=== PATIENT | male | born 1935 | race Caucasian/White ===

== ENCOUNTER 2016-09-01 19:47 | Inpatient (IN) | payer MEDICARE, OTHER ==
[~2016-09-01] VITALS: Ht 180.3 cm; Wt 79.1 kg
[~2016-09-01 19:47] MED LIST: AMLODIPINE BESYL5 MG PO; ASPIR 8181 MG PO; ATROVENT HFA12.9 GM INH; BREO ELLIPTA I1 EACH INH; CALCIUM 600 +1 EAC3 PO; COMPANION TABL0.4 MG PO; FEOSOL325 MG PO; FLUOCINONIDE60 ML TOP; FLUZONE HI180 MCG/07 IM; HYDROCODON-ACE1 EAC8 PO; I-CAPS WITH LU1 EACH PO; IRON18 MG PO; KETOCONAZOLE120 ML TOP; LEVAQUIN500 MG PO; LUPRON DEPOT22.5 MG IM; MEGESTROL ACETA20 MG PO; MIRALAX17 GM PO; PANTOPRAZOLE SO40 MG PO; PRILOSEC20 MG PO; QVAR7.3 G1 INH; SENNA-TIME S T1 EACH PO; SUCRALFATE1 GM/10 ML PO; TAMSULOSIN HCL0.4 MG PO; VENLAFAXINE H37.5 M1 PO; VENTOLIN HFA18 GM INH; VITAMIN B12-FO1 EACH PO; VITAMIN C250 MG PO; VITAMIN C60 MG PO; VITAMIN D3 COM1 EACH PO; VITAMIN D400 UNI1 PO; WAL-ZYR D TABL1 EACH PO; ZOLPIDEM TARTRAT5 MG PO
[2016-09-01] MEDS ORDERED: SUCRALFATE1 GM PO (20:08)
[2016-09-01] MEDS ORDERED: ASPIR-LOW81 MG PO (20:09)
[2016-09-01] MEDS ORDERED: IRON236 MG PO (20:10)
[2016-09-01] MEDS ORDERED: PRILOSEC OTC20 MG PO (20:11)
[2016-09-02] MEDS ORDERED: ATROVENT HFA12.9 GM INH (14:08)
[2016-09-02] MEDS ORDERED: FERROUS SULFAT325 MG PO (14:11)
[2016-09-02] MEDS ORDERED: FLOMAX0.4 MG PO (15:24)
[2016-09-02] MEDS ORDERED: MIRALAX17 GM PO (15:26)
--- NOTE | 2016-09-05 08:50 | CONS ---
[facility] [address], [place] [address] Signed DATE OF SERVICE: 09/02/2016 REFERRING PHYSICIAN: Dr. Casey Sinclair. CHIEF COMPLAINT: Rectal bleeding. HISTORY OFPRESENT ILLNESS: Olga is a 80-year-old significantly disabled gentleman, who I have known over the years. He has been in the hospital several times for GI bleeds. 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 He also had amoderate-sized type 1 hiatal hernia and a little gastritis at that time. His colonoscopy had revealed a very long redundant colon andwe never made it past his hepatic flexure. He does have moderate left-sideddiverticulosis. The barium enema was ordered and he had diverticula, but no other issues. In the meantime, he had come back for a GI bleed and Dr. Prabhakar apparently placed a couple of clips in the stomach. Olga apparently remains on aspirin and was at home and getting dizzy for the last 2 to 3 days and noticed black stool. He, therefore, had called the ambulance to come bring him to the hospital. In the meantime, his hemoglobin has dropped from 10.1 over to 8.1 over more than 8 hours. However, he has been otherwise hemodynamically stable and his BUN and creatinine are already starting to correct itself. Given his current finding, I had been asked to see him as a general surgeon on-call. ALLERGIES: 1. Paper tape. 2. Penicillin. MEDICATIONS: Sucralfate, aspirin, Ocuvite softgel, calcium, fluocinonide solution, ketoconazole shampoo, amlodipine, Derby 10 mg tablets, Protonix, tamsulosin, venlafaxine, zolpidem, and Breo (fluticasone/vilanterol). PAST MEDICAL HISTORY: Insomnia; supraventricular arrhythmia, status post ablation in [place], [place]; myocardial infarction; coronary artery disease; hypertension; Chronic obstructive pulmonary disease; recurrent GI bleeds; gastric ulcer while Taking NSAIDs; nocturnal hypoxia; mood disorder; prostate cancer. PAST SURGICAL HISTORY: Includes his cardiac ablation in [place], [place]; And also an upper GI and endoscopy in January [address] Buchanan and again his appendectomy, his colonoscopy in January [address] Buchanan; irradiation in 2007 for prostate cancer; and upper and lower endoscopy with Dr. Prabhakar sometime after 2014. Electronically Signed By: TRISTEN BUCHANAN MD 09/05/16 0850 PATIENT NAME: OLGA LEMUS CONSULTATION DATE OF : 39 PHYSICIAN: TRISTEN BUCHANAN MD REPORT #: [id number] REPORT IS CONFIDENTIAL AND NOT TO BE RELEASED WITHOUT AUTHORIZATION [facility] [address], [place] [address] Signed SOCIAL HISTORY: He drinks from 3 to 5 cups of coffee a day. He quit smoking his pipe in 2010. He quit cigarettes at least 20 years ago. He does not chew tobacco. He does not drink alcohol. He does not use drugs. 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 He is now and has 2 children. He lives here in [place], [place]. Dr. Hebert Brar s his primary care provider. He apparently is a DNR. FAMILY HISTORY: Cerebral artery aneurysm in the family. REVIEW OF SYSTEMS: He had 10 systems reviewed and nothing really major since I have seen Olga the last time other than his GI bleeds. PHYSICAL EXAMINATION: VITAL SIGNS: Blood pressure is 144/60, heart rate is 68, respirations 20, temperature is 97.8, he is 94% to 98% on cain al cannula. He is 5 feet 11 inches, 79 kg. GENERAL: Olga is a 80-year-old gentleman, who appears his stated age. He is thin And has pursed lips as he breaths consistent with along history of smoking. RESPIRATORY: He has mildly distant breath sounds. HEART: Regular rate and rhythm. ABDOMEN: Benign. RECTAL: Not performed currently. LABORATORY DATA: His white count is 5.5, neutrophils 72. Hemoglobin was 10.4, went down to 7.5, it is now 8.1. His BUN was 25, it is now 19. His creatinine was 1.34, it is now 0.95. LFTs are negative. Albumin is 3.3, INR is 1.1, PTT is 24. RADIOGRAPHIC STUDIES: None. ASSESSMENT AND PLAN: Olga is a 80-year-old gentleman, who presents as above. He may have a recurrent ulcer in his stomach. We have never found any bleeding in his colon, although he does have diverticulosis and he had radiation to the prostate. I think at this point, we will let him go through a bowel prep and at least clear up the colon and the foul-smelling stool. I think tomorrow we will schedule him for his upper endoscopy and look at his stomach. If that is negative, we can consider the lower endoscopy, although Olga told me today he was not particularly interested in lower endoscopy. I reviewed all this with Olga. He has expressed understanding and agrees with above plan. Tristen Buchanan MD Electronically Signed By: TRISTEN BUCHANAN MD 09/05/16 0850 PATIENT NAME: OLGA LEMUS CONSULTATION DATE OF : 39 PHYSICIAN: TRISTEN BUCHANAN MD REPORT #: [id number] REPORT IS CONFIDENTIAL AND NOT TO BE RELEASED WITHOUT AUTHORIZATION [address] [address] Signed Delmy /[id number] cc: Dr. Hebert Brar Electronically Signed By: TRISTEN BUCHANAN MD 09/05/16 0850 PATIENT NAME: OLGA LEMUS CONSULTATION DATE OF : 39 PHYSICIAN: TRISTEN BUCHANAN MD REPORT #: [id number] REPORT IS CONFIDENTIAL AND NOT TO BE RELEASED WITHOUT AUTHORIZATION
--- NOTE | 2016-09-07 07:55 | OR ---
[facility] [address] [place], [place] [address] Signed PREOPERATIVE DIAGNOSES: Rectal bleeding and melena. History of peptic ulcer disease. POSTOPERATIVE DIAGNOSIS: Unremarkable stomach and esophagus. PROCEDURE: Esophagogastroduodenoscopy without biopsy. ESTIMATED BLOOD LOSS: None. FINDINGS: No source of bleeding in his esophagus, stomach, pyloric channel, or proximal duodenum. No blood found what so ever. INDICATIONS: Diego is a 80-year-old gentleman, who I have known for many years. He has been in the hospital now 3 or 4 times with melena, rect al bleeding. Both myself and Dr. Prabhakar had the opportunity to perform his endoscopies. We know that he has probably a small epiphrenic diverticulum, although I did not see that specifically today. There is mention of a hiatal hernia. He probably does have a small hiatal hernia today and he also had a little gastritis in the past. The CLOtest that I had performed was negative. Dr. Prabhakar found something in the stomach on a separate occasion and he had clipped that area. We also know that he has moderate left - sided diverticulosis. He does have a long redundant colon. We never made it past the hepatic flexure. He had a followup barium enema and again the diverticula, but no other issues. Diego happens to live alone and he noticed melena and some blood associated w ith this, so he had called 911 and had the ambulance bring him into the hospital. He has been with us and dropped his hemoglobin initially from 10.1, down to 8.1, but he has been hemodynamically stable otherwise. His BUN and creatinine were initially up a t 25 and 1.34, but with hydration, it is down to 19 and 0.95. Diego has been taking aspirin, but also taking medicine for his stomach. He said overall he thinks he is better than it was previously. I have been asked to see him his general surgeon on-call the n for consideration of repeat endoscopy. I met with Diego yesterday and we had a long discussion, he has been stable all day and he is not particularly interested in colonoscopy, but he is certainly willing to let me check his stomach. We went ahead and put h im through a full bowel prep yesterday nevertheless. Diego does understand upper endoscopy well. He understands that given his advanced medical issues, we normally would have an anesthesia provider help us, but there was none available this morning. We felt we needed to proceed with his upper endoscopy at fairly low risk and we thought he would be just fine. Diego had expressed understanding and wished to proceed. DESCRIPTION OF PROCEDURE: Electronically Signed By: TRISTEN ARELLANO MD 09/07/16 0755 PATIENT NAME: DIEGO LEMUS OPERATIVE REPORT DATE OF : 39 PHYSICIAN: TRISTEN ARELLANO MD REPORT #: [id number] REPORT IS CONFIDENTIAL AND NOT TO BE RELEASED WITHOUT AUTHORIZATION [facility] [address] [place] [id number] Signed Diego was taken into endoscopy suite and placed in a supine semirecumbent p osition. He was given IV sedation with 3 mg of Versed and 100 mcg of fentanyl. The posterior oropharynx had been anesthetized with Hurricaine spray. A bite block has been utilized for the case. The adult gastroscope was introduced and advanced quite readi l y down the esophagus, stomach, and out of the duodenum. There was no evidence of any fresh or old blood anywhere. We found that the duodenum and pyloric channel were unremarkable. His entire stomach was unremarkable. No evidence of any new or old ulcerati o ns. Upon retroflexion of the scope, he may have just a small hiatal hernia, but it was quite small. The scope was withdrawn up to the GE junction, which was compliant without stricture. The Z-line remains intact. There was no distal esophagitis. The middl e and upper esophagus were unremarkable. After this, the gas was suctioned out and the gastroscope removed. Diego tolerated the procedure quite well. RECOMMENDATIONS: Diego will be returned to his room and we will put him back on a full liquid diet and repeat hi s labs in the morning. If he continues to have trouble, he may need colonoscopy, but he certainly has diverticulosis and now that he has had multiple GI bleeds, maybe he should stop his aspirin. Tristen Arellano MD AB/Modl /[id number] cc: Tristen Arellano MD Electronically Signed By: TRISTEN ARELLANO MD 09/07/16 0755 PATIENT NAME: DIEGO LEMUS OPERATIVE REPORT DATE OF : 39 PHYSICIAN: TRISTEN ARELLANO MD REPORT #: [id number] REPORT IS CONFIDENTIAL AND NOT TO BE RELEASED WITHOUT AUTHORIZATION
--- NOTE | 2016-09-07 16:47 | OR ---
[facility] [address], [place] [address] Signed PREOPERATIVE DIAGNOSES: Melena and rectal bleeding. History of diverticulosis. History of long redundant colon. POSTOPERATIVE DIAGNOSES: Moderate sigmoid diverticulosis. Long redundant colon. 7 mm vascular polyp at hepatic flexure. A 4 mm polyp distal transverse colon. 7 mm polyp at 10 cm (rectum). Moderate internal hemorrhoids. PROCEDURES: Colonoscopy with hot biopsy and a clip at hepatic flexure as well as snare of a rectal polyp. ESTIMATED BLOOD LOSS: Minimal. INDICATIONS: Olga is a 80-year-old gentleman who is well known previously. He has been in the hospital several times with melena and rectal bleeding. He has had upper and lower endoscopies. At 1 point, there was concer n about peptic ulcer disease and he had a couple of clips placed on the antrum of the stomach. He also has a very long redundant colon and I was not able to reach the right colon or cecum on my last colonoscopy with Olga. I did have him undergo a barium en e ma and it confirmed is diverticulosis, but no other significant lesions. In the meantime, he has been taking his aspirin 3 days a week. He lives alone and he started to have melena and rectal bleeding and was feeling dizzy, so we called 911. They brought johnathon im to the hospital for evaluation. He has been admitted to our internal medicine service. Yesterday, I did his upper endoscopy and his stomach and esophagus and proximal duodenal were completely unremarkable. Consequently we put into some additional bowel prep the following day. Later that day, and then we brought him in this morning for his colonoscopy. Olga has significant medical history including COPD. We have used an anesthesia provider before with good results for his colonoscopy and that worked out again today. Olga has very similar colonoscopy. He understands the risks, risks including, but not limited to gas bloating, crampy abdominal pain, bleeding, perforation, requiring surgery, and missed diagnosis. He expressed understanding and wished to proc eed. PROCEDURE NOTE: Electronically Signed By: TRISTEN ARELLANO MD 09/07/16 1647 PATIENT NAME: OLGA LEMUS OPERATIVE REPORT DATE OF : 39 PHYSICIAN: TRISTEN ARELLANO MD REPORT #: [id number] REPORT IS CONFIDENTIAL AND NOT TO BE RELEASED WITHOUT AUTHORIZATION [facility] [address] [place] [id number] Signed Olga was taken into endoscopy suite and placed in the left lateral decubitus position. He was given IV sedation with propofol per nurse craft manager. A digital rectal exam was performed and this was unremarkable. The adult colonoscope was introduced and advanced as before to a long redundant colon up to the hepatic flexure. At the hepatic flexure, we found somewhat flat vascular-appearing lesion that we biopsied and destroyed completely with hot biopsy forceps. With our 1st biopsy, it actu a lly bled fairly significantly. At that point, we went ahead and placed a clip to sandy its location. So, we could take an x-ray in recovery room. We took a few minutes and we could see around hepatic flexure, down into the ascending colon, but we could not pass the scope any further. We went ahead and moved Olga into the supine position. It has been several more minutes trying to pass the scope through the hepatic flexure with abdominal compression without success. We could see the cecum, we could see the il e ocecal valve and everything looks fine. There was just a little bit of bilious liquid fluid that we wanted to suction out if at all possible. They rotated Olga back into the left lateral decubitus position and on this occasion with some abdominal compressi o n, we got the scope to pass right down into the cecum itself. We spent a few minutes and we suctioned out all the fluid and we looked the area over very carefully. The cecum and the area immediately behind the ileocecal valve were completely unremarkable. Fortunately, his ileocecal valve was somewhat flat and we had a good look in that area. We were not able to pass the scope into the ileocecal valve unfortunately. The scope was then slowly withdrawn and we came back to the hepatic flexure. We resolved the clip. There was no bleeding from that lesion. As we progressed in a retrograde fashion, we removed another 4 mm polyp in the distal transverse colon and again we found his moderate diverticulosis with a long redundant colon and angulation on the left side . In the rectum, he had a 7 mm polyp at 10 cm, which we took off with the snare and that had good hemostasis as well. Upon retroflexion of scope, he does have moderate nonbleeding internal hemorrhoids. The gas was then suctioned out. The colonoscope remove d. Olga tolerated the procedure quite well. RECOMMENDATIONS: Olga is going to be returned to his room and started on diet. If he continues to have issues with bleeding, he really needs a small-bowel follow through, and/or a capsule endoscopy. MD BEATRIS Vázquez/Edilberto Electronically Signed By: TRISTEN ARELLANO MD 09/07/16 1647 PATIENT NAME: OLGA LEMUS OPERATIVE REPORT DATE OF : 39 PHYSICIAN: TRISTEN ARELLANO MD REPORT #: [id number] REPORT IS CONFIDENTIAL AND NOT TO BE RELEASED WITHOUT AUTHORIZATION [facility] [address] [facility] [place], [place] [address] Signed /[id number] cc: Tristen Arellano MD Electronically Signed By: TRISTEN ARELLANO MD 09/07/16 1647 PATIENT NAME: OLGA LEMUS OPERATIVE REPORT DATE OF : 39 PHYSICIAN: TRISTEN ARELLANO MD REPORT #: [id number] REPORT IS CONFIDENTIAL AND NOT TO BE RELEASED WITHOUT AUTHORIZATION
== END 2016-09-04 13:45 | disposition home or self-care (01) | DRG 378 ==
LOC: ED 19:47 → MS 21:08 → CCU 21:08 → MS 09-02 16:22
PROVIDERS: Colon & Rectal Surgery; ADMIT Internal Medicine
PROC: 0DJ08ZZ Inspection of Upper Intestinal Tract, Via Natural or Artificial Opening Endoscopic (ICD-10-PCS; principal; 2016-09-03 10:15)
PROC: 0W3P8ZZ Control Bleeding in Gastrointestinal Tract, Via Natural or Artificial Opening Endoscopic (ICD-10-PCS; 2016-09-04)
PROC: 0DBP8ZX Excision of Rectum, Via Natural or Artificial Opening Endoscopic, Diagnostic (ICD-10-PCS; 2016-09-04)
PROC: 0DBL8ZX Excision of Transverse Colon, Via Natural or Artificial Opening Endoscopic, Diagnostic (ICD-10-PCS; 2016-09-04)
PROC: 0DBK8ZX Excision of Ascending Colon, Via Natural or Artificial Opening Endoscopic, Diagnostic (ICD-10-PCS; 2016-09-04)
DX: K92.1 Melena (principal); D62 Acute posthemorrhagic anemia; Q43.8 Other specified congenital malformations of intestine; I10 Essential (primary) hypertension; I25.10 Atherosclerotic heart disease of native coronary artery without angina pectoris; J44.9 Chronic obstructive pulmonary disease, unspecified; I25.2 Old myocardial infarction; K57.30 Diverticulosis of large intestine without perforation or abscess without bleeding; K62.1 Rectal polyp; K64.8 Other hemorrhoids; K63.5 Polyp of colon; G47.34 Idiopathic sleep related nonobstructive alveolar hypoventilation; N40.0 Benign prostatic hyperplasia without lower urinary tract symptoms; F39 Unspecified mood [affective] disorder; Z87.891 Personal history of nicotine dependence; Z87.11 Personal history of peptic ulcer disease; Z85.46 Personal history of malignant neoplasm of prostate; Z88.0 Allergy status to penicillin; Z91.048 Other nonmedicinal substance allergy status; Z79.82 Long term (current) use of aspirin; Z79.51 Long term (current) use of inhaled steroids; Z79.891 Long term (current) use of opiate analgesic; Z79.899 Other long term (current) drug therapy
CPT/HCPCS: 00810; 36415; 74000; 80048; 80053; 83735; 84100; 85025; 85610; 85730; 86850; 86900; 86901; 86920; 88305; 94640; 94760; 99152; J2250; J2370; J2704; J3010; J3475; J3480; J7040; J7120

== ENCOUNTER 2017-03-15 17:20 | Inpatient (IN) | payer MEDICARE, OTHER ==
[~2017-03-15] VITALS: Ht 180.3 cm; Wt 77.5 kg
[~2017-03-15 17:20] MED LIST changes: +ASPIR-LOW81 MG PO; +FERROUS SULFAT325 MG PO; +FLOMAX0.4 MG PO; +IRON236 MG PO; +PRILOSEC OTC20 MG PO; +SUCRALFATE1 GM PO
--- OUTSIDE RECORDS SUMMARY | 2017-03-15 17:47 | XMS | Clinical Summary ---
Demographics + + + | Address | [address] | | | [place] [address] | + + + | Home Phone | | + + + | Preferred Language | Unknown | + + + | Marital Status | | + + + | Yarsani Affiliation | PRE | + + + | Race | White | + + + | Ethnic Group | Not or | + + + Author + + + | Author | [facility] | + + + | Organization | [facility] | + + + | Address | Unknown | + + + | Phone | Unavailable | + + + Support +------+ +---------+ + | Name | Relationship | Address | Phone | +------+ +---------+ + ECON | Unknown | Unavailable | +------+ +---------+ + Care Team Providers + +------+-------+ | Care Tie Knitter Helper Name | Role | Phone | + +------+-------+ | Parviz Brar DO | PP | tel | + +------+-------+ Source Comments VERENA is fully live on both [facility] and [facility] Allergies + + + + + + | Active Allergy | Reactions | Severity | Noted | Comments | | | | | Date | | + + + + + + | Adhesive Tape | Hives, Rash | | 06/07/19 | | | | | | 13 | | + + + + + + Current Medications + + + +---------+------+------+-------+ | Prescription | Sig. | Disp. | Refills | Star | End | Statu | | | | | | t | Date | s | | | | | | Date | | | + + + +---------+------+------+-------+ | omeprazole 20 mg | Take 20 mg by mouth | | | | | Activ | | Oral capsule,delayed | once daily in the | | | | | e | | | morning. | | | | | | | release(DR/EC)Indica | Indications: | | | | | | | tions: | GASTROESOPHAGEAL | | | | | | | gastroesophageal | REFLUX | | | | | | | reflux disease | | | | | | | + + + +---------+------+------+-------+ | polyethylene | Take 17 g by mouth | | | | | Activ | | glycol 17 gram/dose | once daily. | | | | | e | | Oral Powder | | | | | | | + + + +---------+------+------+-------+ | amLODIPine 5 mg | Take 5 mg by mouth | | | | | Activ | | Oral | once daily in the | | | | | e | | tabletIndications: | morning. | | | | | | | hypertension | Indications: | | | | | | | | HYPERTENSION | | | | | | + + + +---------+------+------+-------+ | ascorbic acid 250 | Take 250 mg by mouth | | | | | Activ | | mg Oral tablet | two times daily. | | | | | e | + + + +---------+------+------+-------+ | ferrous sulfate | Take 325 mg by mouth | | | | | Activ | | 325 mg (65 mg iron) | two times daily. | | | | | e | | Oral tablet | | | | | | | + + + +---------+------+------+-------+ | fluticasone 220 | Inhale 1 Puff two | | | | | Activ | | mcg/actuation | times daily. | | | | | e | | Inhalation Aerosol | | | | | | | | (Aero) | | | | | | | + + + +---------+------+------+-------+ | cetirizine 5 mg | Take 5 mg by mouth | | | | | Activ | | Oral tablet | two times daily. | | | | | e | + + + +---------+------+------+-------+ | tamsulosin 0.4 mg | Take 0.4 mg by mouth | | | | | Activ | | Oral | once daily in the | | | | | e | | capsule,extended | evening. 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 | | | | | e | + + + +---------+------+------+-------+ | docusate sodium | Take 100 mg by mouth | | | | | Activ | | 100 mg Oral capsule | twice daily as | | | | | e | | | needed. | | | | | | + + + +---------+------+------+-------+ | ipratropium 17 | Inhale 2 Puffs four | | | | | Activ | | mcg/actuation | times daily as | | | | | e | | Inhalation HFA | needed. | | | | | | | Aerosol Inhaler | | | | | | | + + + +---------+------+------+-------+ | temazepam 15 mg | Take 15 mg by mouth | | | | | Activ | | Oral capsule | once daily at | | | | | e | | | bedtime as needed. | | | | | | + + + +---------+------+------+-------+ | magnesium | Take 30 mL by mouth | | | | | Activ | | hydroxide 400 mg/5 | once daily as | | | | | e | | mL Oral Suspension | needed. | | | | | | + + + +---------+------+------+-------+ | aspirin chewable | Take 1 Tab by mouth | | | 04/2 | | Activ | | 81 mg Oral tablet, | once daily. DO NOT | | | 05/11 | | e | | chewable | RESUME UNTIL CLEARED | | | 13 | | | | | AT FOLLOW UP | | | | | | | | APPOINTMENT | | | | | | + + + +---------+------+------+-------+ | oxyCODONE, | Take 1 Tab by mouth | 30 Tab | 0 | 04/2 | | Activ | | immediate release, 5 | every six hours as | | | 3/20 | | e | | mg Oral tablet | needed for severe | | | 13 | | | | | pain. | | | | | | + + + +---------+------+------+-------+ | oxymetazoline 0.05 | Instill 2 Sprays | | | 04/2 | | Activ | | % Nasal Aerosol, | into each nostril | | | 3/20 | | e | | Thompson | every six hours as | | | 13 | | | | | needed (Epistaxis). | | | | | | | | Use for only 3 days. | | | | | | + + + +---------+------+------+-------+ | sodium chloride | Instill 2 Sprays in | | | 04/2 | | Activ | | 0.65 % Nasal | nose every two hours | | | 3/20 | | e | | Aerosol, Thompson | while awake. | | | 13 | | | + + + +---------+------+------+-------+ Active Problems + + + | Problem | Noted Date | + + + | Epistaxis | 06/10/2012 | + + + | Anemia | 06/10/2012 | + + + Encounters +--------+ + + + + | Date | Type | Specialty | Care Team | Description | +--------+ + + + + | 02/03/ | Telephone | | Renny Eldridge MD | | | 2016 | | | | | +--------+ + + + + from Last 3 Months Family History + +------+--------+ + | Relation | Name | Status | Comments | + +------+--------+ + Social History + +-------+ +--------+------+ | Tobacco Use | Types | Packs/Day | Years | Date | | | | | Used | | + +-------+ +--------+------+ | Former Smoker | | | | | + +-------+ +--------+------+ + + +---------+ + | Alcohol Use | Drinks/We | oz/Week | Comments | | | ek | | | + + +---------+ + | No | | | | + + +---------+ + + + + | Sex Assigned at | Date Recorded | | | | + + + | Not on file | | + + + Last Filed Vital Signs + + + + | Vital Sign | Reading | Time Taken | + + + + | Blood Pressure | 131/81 | 07/04/2012 9:55 AM PDT | + + + + | Pulse | 102 | 07/04/2012 9:55 AM PDT | + + + + | Temperature | 37.5 C (99.5 F) | 06/14/2012 11:52 AM PDT | + + + + | Respiratory Rate | 16 | 06/14/2012 11:52 AM PDT | + + + + | Oxygen Saturation | 94% | 06/14/2012 11:52 AM PDT | + + + + | Inhaled Oxygen | - | - | | Concentration | | | + + + + | Weight | 68.6 kg (151 lb 4.8 | 07/04/2012 9:55 AM PDT | | | oz) | | + + + + | Height | 182.9 cm (6') | 06/11/2012 4:18 PM PDT | + + + + | Body Mass Index | 20.52 | 07/04/2012 9:55 AM PDT | + + + + Plan of Treatment + + + + + | Health Maintenance | Due Date | Last Done | Comments | + + + + + | INFLUENZA VACCINE | | 11/10/2014, 11/18/2013, | | | (FLU SHOT) | 7 | 12/11/2012 | | + + + + + Results Not on filefrom Last 3 Months"
--- OUTSIDE RECORDS SUMMARY | 2017-03-15 17:47 | XMS | Encounter Summary ---
Demographics + + + | Address | [address] | | | [place] [address] | + + + | Home Phone | | + + + | Preferred Language | Unknown | + + + | Marital Status | | + + + | Buddhism Affiliation | PRE | + + + | Race | White | + + + | Ethnic Group | Not or | + + + Author + + + | Author | [facility] | + + + | Organization | [facility] | + + + | Address | Unknown | + + + | Phone | Unavailable | + + + Support +------+ +---------+ + | Name | Relationship | Address | Phone | +------+ +---------+ + ECON | Unknown | Unavailable | +------+ +---------+ + Care Team Providers + +------+-------+ | Care Welt Beater Name | Role | Phone | + +------+-------+ | Parviz Brar DO | PCP | tel | + +------+-------+ Encounter Details +--------+ + + + + | Date | Type | Department | Care Team | Description | +--------+ + + + + | 02/03/ | Telephone | [facility] | Renny Eldridge MD | | | 2017 | | Interventional | [address] | | | | | [place] [address] | | | | | [address] | [place], [place] | | | | | [facility] Mailcode: [id number] | [address] | | | | | [place] | [phone] | | | | | [facility] | | | | | | [place], [place] | | | | | | [address] | | | | | | [phone] | | | +--------+ + + + + Social History + +-------+ +--------+------+ | [...] on file | | + + + as of this encounter Plan of Treatment Not on fileas of this encounter Visit Diagnoses Not on filein this encounter"
--- OUTSIDE RECORDS SUMMARY | 2017-03-15 17:47 | XMS | Encounter Summary ---
Demographics + + + | Address | [address] | | | [place] [address] | + + + | Home Phone | | + + + | Preferred Language | Unknown | + + + | Marital Status | | + + + | Rastafari Affiliation | PRE | + + + | Race | White | + + + | Ethnic Group | Not or | + + + Author + + + | Author | [facility] | + + + | Organization | [facility] | + + + | Address | Unknown | + + + | Phone | Unavailable | + + + Support +------+ +---------+ + | Name | Relationship | Address | Phone | +------+ +---------+ + ECON | Unknown | Unavailable | +------+ +---------+ + Care Team Providers + +------+-------+ | Care Jewel Sorter Name | Role | Phone | + [...] HERNANDEZ Garces | | | | | [place] [address] | | | | | [place] | [place], [place] | | | | | [facility] Mailcode: [address] | [address] | | | | | [place] | [phone] | | | | | [facility] | | | | | | [place], [place] | | | | | | [address] | | | | | | [phone] | | | +--------+ + + + [...]
--- OUTSIDE RECORDS SUMMARY | 2017-03-15 17:47 | XMS | Clinical Summary ---
Demographics + + + | Address | [address] | | | [place] [address] | + + + | Home Phone | | + + + | Preferred Language | Unknown | + + + | Marital Status | | + + + | Anabaptism Affiliation | PRE | + + + [...] Care Team Providers + +------+-------+ | Care Paraffin Plant Operator Name | Role | Phone | + +------+-------+ | Parviz Brar DO | PP | tel | + +------+-------+ Source Comments VERENA is fully live on both [facility] Ambulatory and [facility] InPatient.[facility] Allergies + + + + + [...] | 3/20 | | e | | [place] | every six hours as | | [...] 3/20 | | e | | Aerosol, [place] | while awake. | | | 13 [...]
--- OUTSIDE RECORDS SUMMARY | 2017-03-15 20:01 | XMS | Encounter Summary ---
Demographics + + + | Address | [address] | | | [place] [address] | + + + | Home Phone | | + + + | Preferred Language | Unknown | + + + | Marital Status | | + + + | Uatsdin Affiliation | PRE | + + + | Race | White | + + + | Ethnic Group | Not or | + + + Author + + + | Author | [facility] | + + + | Organization | [facility] | + + + | Address | Unknown | + + + | Phone | Unavailable | + + + Support +------+ +---------+ + | Name | Relationship | Address | Phone | +------+ +---------+ + ECON | Unknown | Unavailable | +------+ +---------+ + Care Team Providers + +------+-------+ | Care Forest Pathology Professor Name | Role | Phone | + [...] HERNANDEZ Garces | | | | | [place] [address] | | | | | [place] | [place], [place] | | | | | [facility] Mailcode: [address] | [address] | | | | | [place] | [phone] | | | | | [facility] | | | | | | [place], [place] | | | | | | [address] | | | | | | [phone] | | | +--------+ + + + [...]
--- OUTSIDE RECORDS SUMMARY | 2017-03-15 20:01 | XMS | Clinical Summary ---
Demographics + + + | Address | [address] | | | [place] [address] | + + + | Home Phone | | + + + | Preferred Language | Unknown | + + + | Marital Status | | + + + | Bahai Affiliation | PRE | + + + [...] Care Team Providers + +------+-------+ | Care Instructor Robotics Name | Role | Phone | + +------+-------+ | Parviz Brar DO | PP | tel | + +------+-------+ Source Comments VERENA is fully live on both [facility] and [facility] InPatient.[facility] Allergies + + + + + + [...] | 3/20 | | e | | [place] | every six hours as | | [...] 3/20 | | e | | Aerosol, [place] | while awake. | | | 13 [...]
--- NOTE | 2017-03-15 21:23 | EKG ---
[facility] [address] [facility] [place] [address] Signed Normal sinus rhythm Normal ECG No previous ECGs available Confirmed by JOSE GROVER MD ([id number]) on 03/15/2017 9:23:19 PM Electronically Signed By: JOSE GROVER MD 03/15/172122 PATIENT NAME: OLGA LEMUS Electrocardiogram DATE OF : 39 PHYSICIAN: JOSE GROVER MD REPORT #: [id number] REPORT IS CONFIDENTIAL AND NOT TO BE RELEASED WITHOUT AUTHORIZATION
--- NOTE | 2017-03-15 21:43 | NUR ---
PT ARRIVED TO ROOM VIA STRETCHER FROM ER. TRANSFERRED SELF TO BED. PT REPORTS HAVING HAD FLU 2 WEEKS AGO, FOLLOWED UP WITH PCP, DR SEE, AND RECENTLY DX WITH PNEUMONIA. PLACED ON ABX AND STEROIDS. LAST 2-4 DAYS INCREASED SOB WITH MOVEMENT. NOTED BLACK STOOL (FORMED) ON (03/11). PT SEEN RECENTLY IN SEP FOR GI SCOPE WITH CAMERA WITH DR LEVY. REPORTS THAT ISSUE WAS 'IN HIS STOMACH'. CURRENTLY NOT TAKING CARAFATE PRESCRIBED. LAST DOSE A COUPLE MONTHS AGO. DENIES NSAID USE. NO DIARRHEA/PETE BLOOD. WHEN EMS ARRIVED C/O CHEST PAIN "LIKE HE WAS OUTSIDE IN COLD". IN L PECTORAL AREA AND SHARP, RESOLVED ON ARRIVAL TO ED. PT ON 2L O2 CHRONICALLY, OCCASIONAL CONGESTED COUGH, INHALERS AT HOME. BLOOD STARTED AT 2025. PT EXPLAINED RISKS AND SIDE EFFECTS TO REPORT. ORTHOSTATIC BP DONE 2130, DR GROVER NOTIFIED OF RESULTS. IV BOLUS OF LR STARTED. PT SLIGHTLY DIZZY WHEN STANDING.
--- NOTE | 2017-03-15 23:23 | NUR ---
PT VOIDED 500ML AT 2300 TO URINAL. CURRENTLY ASLEEP.
--- NOTE | 2017-03-16 00:34 | NUR ---
SECOND UNIT OF BLOOD STARTED AT 0018. RATE AT 100ML/HR. NO S/S OF TRANSFUSION REACTION. PT WITHOUT NEEDS.
--- NOTE | 2017-03-16 02:44 | NUR ---
PT DOZING ON AND OFF. NOT SLEEPING WELL, DENIES NEEDS HOWEVER. EMPTIED URINAL FOR 300ML.
--- NOTE | 2017-03-16 06:16 | NUR ---
ORTHOSTATIC VS DONE AT 0530. THIRD UNIT OF PRBC'S STARTED AT 0520 INTO LAC.
--- NOTE | 2017-03-16 10:10 | NUR ---
TO OR VIA STRETCHER FOR EGD. LR TKO ON STRAINGT TUBING HUNG.
--- NOTE | 2017-03-16 10:47 | NUR ---
03/16/17 1047 Latia James 1035 PT ARRIVED IN PACU AWAKE WITH NO C/O'S.
--- NOTE | 2017-03-16 10:49 | CONS ---
[facility] [address] [place], [place] [address] Signed DATE OF CONSULTATION: 03/16/2017 CHIEF COMPLAINT: Shortness of breath. HISTORY OF PRESENT ILLNESS: Olga is a 81-year-old gentleman, well known to our hospital services. Olga has been in the hospital now several times with GI bleeds and had both upper and lower endoscopy. He is known to have colonic polyps removed along with diverticulosis. There was a question whether he might have a shallow ulcer in his stomach back in 2016. He also had an outpatient capsule endoscopy and all was fine. On this occasion, he has had some pneumonia recently and was not feeling well. He was feeling short of breath. He came back to the hospital and was found to be anemic with a hemoglobin of 6.3 with a mean cell volume of 88. Otherwise, he has been hemodynamically stable. His BUN and creatinine are 14 and 0.81. He was seen in the emergency room and subsequently admitted to the internal medicine service. I was asked to see him as a general surgeon on-call. He has been hemodynamically stable. He has not had any hematochezia or hematemesis. He did receive a couple of units of blood overnight and his hemoglobin is up to 7.9. PAST MEDICAL HISTORY: Coronary artery disease, hypertension, COPD, chronic nocturnal hypoxia, benign prostatic hyperplasia, recurrent GI bleeds, prostate cancer, and mood disorder. PAST SURGICAL HISTORY: Multiple upper and lower endoscopies. SOCIAL HISTORY: He finally quit smoking, although he smoked for years. He does not drink. He lives here in town. PRIMARY CARE PROVIDER: Hebert Brar DO. FAMILY HISTORY: Unremarkable. ALLERGIES: Penicillin. MEDICATIONS: Amlodipine, tamsulosin, venlafaxine, [place], zolpidem, fluticasone, calcium, vitamin D3, ketoconazole, fluocinonide, sucralfate, ipratropium, polyethylene glycol, and Protonix. Electronically Signed By: TRISTEN BUCHANAN MD 03/16/17 1049 PATIENT NAME: OLGA LEMUS CONSULTATION DATE OF : 39 PHYSICIAN: TRISTEN BUCHANAN MD REPORT #: [id number] REPORT IS CONFIDENTIAL AND NOT TO BE RELEASED WITHOUT AUTHORIZATION [facility] [address] [place], [place] [address] Signed REVIEW OF SYSTEMS: He had 10 systems reviewed and really nothing new since I saw Olga a number of months ago other than his intermittent pneumonia. PHYSICAL EXAMINATION: VITAL SIGNS: He is afebrile. His vital signs were stable. LUNGS: He has mildly distant breath sounds. HEART: Regular rate and rhythm. ABDOMEN: Soft, nontender. RECTAL: Not performed. LABORATORY DATA: His hemoglobin was 6.3 with a mean cell volume of 88. He received 2 units of packed red blood cells last night and his hemoglobin is up to 7.9. BUN and creatinine 14 and 0.1. Lactic acid 2.0. Troponin was negative. Albumin 3.6. RADIOGRAPHIC STUDIES: Chest x-ray shows clear lungs. No evidence of pneumonia. His EKG showed sinus rhythm with PVCs. An echocardiogram from 2017 showed an ejection fraction of 55% to 60%. ASSESSMENT AND PLAN: Olga is a 81-year-old gentleman who presents with significant anemia. We have yet to be able to find a source, although he has been extensively studied. I was asked by the internal medicine service to repeat the upper endoscopy. Consequently, the bowel prep was held yesterday. Olga has made himself a DNR/DNI. Nevertheless, he is very familiar with upper endoscopy. We will make those arrangements and have that for later this morning. Tristen Buchanan MD [facility]/MODL /[id number] cc: MD Hebert Boston DO Electronically Signed By: TRISTEN BUCHANAN MD 03/16/17 1049 PATIENT NAME: OLGA LEMUS CONSULTATION DATE OF : 39 PHYSICIAN: TRISTEN BUCHANAN MD REPORT #: [id number] REPORT IS CONFIDENTIAL AND NOT TO BE RELEASED WITHOUT AUTHORIZATION
--- NOTE | 2017-03-16 14:09 | NUR ---
PT ALERT AND ORIENTED. HE WAS SOMEWHAT DISCOURAGED THAT HE IS BACK AGAIN. HE DID SAY THOUGH HE FEELS BETTER AFTER HE RECEIVED BLOOD. PT ASKED ME TO PRAY THAT WE FIND THE PROBLEM THIS TIME, WHICH WE DID. I WILL CONTINUE TO FOLLOW
--- NOTE | 2017-03-16 14:43 | NUR ---
ZOFRAN 4 MG IV GIVEN FOR NAUSEA. DENIES PAIN. O2 AT 2 L NC PLACED. IS SHORT OF BREATH WITH EXERTION. DOES USE O2 AT HOME.
[2017-03-16] MEDS ORDERED: PROAIR HFA8.5 GM INH (16:31)
[2017-03-16] MEDS ORDERED: PROTONIX40 MG PO (16:33)
--- NOTE | 2017-03-16 16:37 | NUR ---
MED REC COMPLETE WITH REFILL HISTORY AND PATIENT INTERVIEW WITH PATIENT'S OWN MED LIST.
--- NOTE | 2017-03-16 17:00 | NUR ---
WILL BE TRANSFERRED TO MEDICAL FLOOR THIS EVENING.
--- NOTE | 2017-03-16 18:20 | NUR ---
TO COMMODE TO EXPELL SEMI LIQUID BLACK STOOL. HEMATEST +
--- NOTE | 2017-03-16 18:50 | NUR ---
TO MEDICAL FLOOR. REPORT GIVEN
--- NOTE | 2017-03-16 18:59 | NUR ---
PT ARRIVED VIA BED FROM CCU. PT ALERT AND ORIENTED, HE REPORTS NO PAIN. REQUEST UP TO COMMODE. JOHNNY STOKES CCU GIVING BED SIDE REPORT TO LINDSAY/LUIS ALBERTO STOKES FOR BICYCLE II ASSEMBLER
--- NOTE | 2017-03-16 19:45 | NUR ---
RECIEVED REPORT FROM CCU NURSE. PT SBA IN THE ROOM. IV IN LEFT FORARE AND RIGHT HAND. FLUIDS INFUSING. PT UP TO BSC. CALL LIGHT WITHIN REACH. NO NEEDS AT THIS TIME. USES CALL LIGHT APROPRIATELY.
--- NOTE | 2017-03-16 21:00 | NUR ---
HELPED PT UP TO COMMODE. TOLLERATED WELL. PT ON 2L NC. BACK TO BED. CALL [facility] WITHIN REACH. NO OTHER NEEDS AT THIS TIME.
--- NOTE | 2017-03-16 23:19 | NUR ---
PATIENT CALLED TO EMPTY URINAL.
--- NOTE | 2017-03-17 01:31 | NUR ---
pt iv alarming. pt awake states he has slept little but not much. denies needs. iv infusing per order.
--- NOTE | 2017-03-17 05:12 | NUR ---
PT UP TO BSC. TOLLERATED WELL. CALL LIGHT WITHIN REACH.
--- NOTE | 2017-03-17 05:56 | NUR ---
PT UP TO BSC X2. PULLED RIGHT HAND IV OUT. LEFT IV INFITRATED. NEW IV IN LEFT FOREARM. PT TOLLERATED WELL. CALL LIGHT WITH IN REACH. NO OTHER NEEDS AT THIS TIME.
--- NOTE | 2017-03-17 05:58 | NUR ---
HX GI BLEED. SBA IN ROOM. UP TO COMMODE X8 TIMES LAST NIGHT. MANY BM'S. PT RECIEVED 3 UNITS OF PRBC'S YESTERDAY. FLUIDS INFUSING. PLAN FOR COLONOSCOPY @ 1000. NEW IV START IN LEFT FOREARM. CHRONIC O2 @ 2L/MIN NC. LIVES ALONE. .
--- NOTE | 2017-03-17 06:37 | OR ---
[facility] [address] [place], [place] [address] Signed DATE OF OPERATION: 03/16/2017 SURGEON: Tristen Buchanan MD PREOPERATIVE DIAGNOSES: 1. Anemia. 2. Gastrointestinal bleed. POSTOPERATIVE DIAGNOSIS: minimal to moderate sized type 1 hiatal hernia. PROCEDURE: EGD without biopsy. ESTIMATED BLOOD LOSS: None. FINDINGS: No source of bleeding found in stomach. No irritation. No blood in stomach. No ulcerations. No Inocencia-Stout tear. No Olegario ulcer. INDICATIONS: Olga is a 81-year-old debilitated gentleman, who is well known to our hospital. He has been in the last several years actually with several GI bleeds and we have yet to find a source either upper or lower. In fact, he had an outpatient capsule endoscopy and that was negative as well. He is known to have some colonic polyps and diverticulosis and at one point had some clips placed in his stomach. He has also been in the hospital with pneumonia as well. Recently, he was just feeling short of breath and weak, so he came into the emergency room for evaluation. He was found that his hemoglobin had dropped down to 6.3. Chest x-ray was unremarkable. He was admitted to the Internal Medicine Service. He said he has not had any bowel movements in several days, but he thought the stool was a little dark. He was hydrated and given 3 units of packed red blood cells and his hemoglobin is up to 9.3. I was asked as a General Surgeon on-call to see him specifically for an upper endoscopy. We withheld his bowel prep yesterday. I met with Olga earlier this morning and reviewed the above findings. Olga and I know each other very well. We reviewed upper endoscopy along with its risks including, but not limited to, gas bloating, crampy abdominal pain, bleeding, perforation, requiring surgery, and missed diagnosis. We also discussed that he is a DNR/DNI. We thought for a simple upper endoscopy. We do fine with just simple IV sedation with Versed and fentanyl. With a more invasive colonoscopy, probably need an anesthesia provider to help us. He Electronically Signed By: TRISTEN BUCHANAN MD 03/17/17 0637 PATIENT NAME: OLGA LEMUS OPERATIVE REPORT DATE OF : 39 PHYSICIAN: TRISTEN BUCHANAN MD REPORT #: [id number] REPORT IS CONFIDENTIAL AND NOT TO BE RELEASED WITHOUT AUTHORIZATION [facility] [address] [place] [id number] Signed had expressed understanding and wished to proceed. PROCEDURE NOTE: Olga was taken into our endoscopy suite and placed in the supine semi-recumbent position. He was given IV sedation with 5 mg of Versed and 100 mcg of fentanyl. The posterior oropharynx was anesthetized with Hurricaine spray. A bite block was utilized for the case. The adult gastroscope was introduced and advanced down the esophagus through his hiatal hernia, stomach, and out into the duodenum itself. There was no evidence of any old or new blood. The duodenum and pyloric channel were unremarkable. The antrum and entire stomach were unremarkable. We retroflexed the scope and he does have a small to moderate sized type 1 hiatal hernia. We watched very carefully through multiple respiratory cycles and saw no evidence of a Inocencia-Stout tear or Olegario ulcer. There was no gastric or esophageal varices. The scope was withdrawn up into the hiatal hernia itself and we examined that very carefully and again, found no evidence of any pathology in the hiatal hernia itself. The GE junction was intact. There was no Mejia's mucosa. There was no distal esophagitis. The middle and upper esophagus were unremarkable. After this, the gas was suctioned out and the gastroscope removed. Olga tolerated the procedure quite well. RECOMMENDATIONS: Olga will be returned to his ICU room. We will put him on clear liquid diet today along with polyethylene glycol and we will clear out his colon. If necessary, we can always re-scope his colon depending on his clinical course. Tristen Buchanan MD [facility]/MODL /[id number] Electronically Signed By: TRISTEN BUCHANAN MD 03/17/17 0637 PATIENT NAME: OLGA LEMUS OPERATIVE REPORT DATE OF : 39 PHYSICIAN: TRISTEN BUCHANAN MD REPORT #: [id number] REPORT IS CONFIDENTIAL AND NOT TO BE RELEASED WITHOUT AUTHORIZATION
--- NOTE | 2017-03-17 07:05 | NUR ---
BEDSIDE HANDOFF REPORT RECEIVED FROM OIL EXPELLER OPERATOR RN. PT RESTING IN BED. ON 2L NC, CHRONIC LEVEL. D5LR AT 75 ML/HR. PT DENIES NEEDS AT THIS TIME. DISCUSSED PLAN OF CARE.
--- NOTE | 2017-03-17 07:11 | NUR ---
RECEIVED CRITICAL LAB FOR POSITIVE BLOOD CULTURES, GRAM POSITIVE COCCI AND CLUSTERS IN AEROBIC BOTTLE. NOTIFIED.
--- NOTE | 2017-03-17 08:16 | NUR ---
PT RESTING IN BED. PT DENIES PAIN. ORTHOSTATIC VITAL COMPLETED, PT DENIES DIZZINESS. PT ON 2L NC, RT TO BEDSIDE FOR NEB, LUNG SOUNDS WITH RHONCHI AND COARSE, OCCASIONAL COUGH. PT DENIES SOB. PT BOWEL TONES HYPERACTIVE, DENIES NAUSEA. CMS INTACT, SCDS AND BROCK HOSE IN PLACE, WITHOUT EDEMA, PULSES PALPABLE. DICUSSED PLAN OF CARE FOR THE DAY, COLONOSCOPY AROUND 1045. PT DENIES OTHER NEEDS AT THIS TIME.
--- NOTE | 2017-03-17 09:48 | NUR ---
PATIENT SITTING UP IN BED WATCHING TV. HANDS AND FACE WASHED. ORAL CARE DONE. PATIENT WOULD LIKE TO SHOWER AFTER SCOPE IF HE FEELS UP TO IT. CALL BUTTON IN REACH. NO OTHER NEEDS AT THIS TIME.
--- NOTE | 2017-03-17 10:11 | NUR ---
PT TO PROCEDURE. REPORT GIVEN TO OR NURSE.
--- NOTE | 2017-03-17 11:58 | NUR ---
03/17/17 1158 Mer Hernadez 1140 RESP EVEN AND UNLABORED. PT ASLEEP WITH ORAL AIRWAY IN PLACE MAINTAINING AIRWAY. 1147 PT AWAKE AIRWAY REMOVED. 1149 O2 SAT 100%, O2 REMOVED. 1153 PT PASSING GAS.
--- NOTE | 2017-03-17 12:10 | NUR ---
PT RECEIVED FROM PACU. PT TRANSFERED SELF TO BED, SMALL AMOUNT OF STOOL ON GOWN, PERICARE AND GOWN CHANGED. PT ON ROOM AIR, O2 SATS 96%, LUNG SOUNDS CLEAR. PT DENIES PAIN. DENIES NAUSEA. IV FLUIDS INFUSING D5LR AT 75 ML/HR. BOWEL TONES ACTIVE. DISCUSSED PLAN OF CARE. PT PROVIDED WITH WATER, ASSISTED WITH ORDERING CLEAR LIQUID TRAY.
--- NOTE | 2017-03-17 13:02 | NUR ---
PT USING BEDSIDE COMMODE. MIRALAX/GATORAID GIVEN, DISCUSSED WITH PT. PT DENIES OTHER NEEDS AT THIS TIME.
--- NOTE | 2017-03-17 14:16 | NUR ---
DIVYA RIVERA REQUESTED I COME BACK LATER. "PT IS HAVING A DIFFICULT DAY". WILL FOLLOW NEEDED
--- NOTE | 2017-03-17 15:40 | NUR ---
VSS. PT RESTING IN BED. PT HAS COMPLETED 2 OF 3 MIRALAX/GATORAID BOTTLES. PT DENIES NEEDS AT THIS TIME.
--- NOTE | 2017-03-17 16:50 | NUR ---
PATIENT RESTING IN BED WATCHING TV. STATES THAT HE WILL WANT A SHOWER AFTER HIS SCOPE TOMORROW. CALL BUTTON IN REACH. NO OTHER NEEDS AT THIS TIME.
--- NOTE | 2017-03-17 17:34 | NUR ---
PT WENT FOR COLONOSCOPY TODAY, UNSUCCESSFUL DUE TO PREP. PT ON ROOM AIR, LUNG SOUNDS CLEAR, SCHEDULED NEBS. PT ON CLEAR LIQUID DIET, NPO AT 0300 TOMORROW FOR REPEAT COLONOSCOPY. PT SBA TO AMBULATE, COMMODE AT BEDSIDE. PT REPEATING BOWEL PREP, COMPLETED WITH GATORADE. VOIDING QS. IV D5LR AT 75 ML/HR.
--- NOTE | 2017-03-17 17:45 | NUR ---
PT RESTING IN BED. DULCOLAX ADMINISTERED. PT ALMOST COMPLETED WITH GATORADE. PT DENIES NEEDS AT THIS TIME.
--- NOTE | 2017-03-17 19:39 | NUR ---
PATIENT IN BED. WHITEBOARD UPDATED. ROOM TIDIED.
--- NOTE | 2017-03-17 19:39 | NUR ---
RECIEVED REPORT FROM DAY SHIFT NURSE. PT UP IN BED WATCHING TV. REPORTED SLIGHT PAIN DUE TO HEMROIDS. PREPERATION H AND WHIPES GIVEN. NO OTHER PAIN AT THIS TIME. PT ON RA. FLUIDS INFUSING. ON CLEAR LIQUID DIET AT THIS TIME UNTIL 0300. BSC AT BEDSIDE FOR URGENCY. BOWEL PREP COMPLETED. STOOL APPEARS THIN AND WATER AND DARK IN COLOR. CALL LIGHT AT BEDSIDE. PERSONAL ITEMS WITHIN REACH. PT USES CALL LIGHT APPROPRIATLY. PM ASSESSMENT COMPLETE. NO FURTHER NEEDS AT THIS TIME.
--- NOTE | 2017-03-17 22:31 | NUR ---
STRAIGHTENED OUT PATIENT'S BED AND CHANGED CHUX
--- NOTE | 2017-03-17 22:35 | NUR ---
PT UP TO COMMODE. RR WNL. NO PAIN AT THIS TIME. CALL LIGHT WITHIN REACH. PERSONAL ITEMS AT BEDSIDE.
--- NOTE | 2017-03-18 00:21 | NUR ---
PT APPEARS TO FINALLY BE SLEEPING. RR WNL, UNLABORED AND EQUAL. FLUIDS INFUSING. CALL LIGHT WITHIN REACH. NO NEEDS AT THIS TIME.
--- NOTE | 2017-03-18 00:40 | NUR ---
PT UP TO COMMODE MULTIPLE TIMES. BOWEL MOVEMENTS ARE WATERY AND DARK. LAST BOWEL MOVEMENT WAS 1000ML. STOOLS SEEM TO BE SLOWING DOWN. PT BACK TO BED. NO FURTHER NEEDS AT THIS TIME. CALL LIGHT WITHIN REACH.
--- NOTE | 2017-03-18 00:44 | NUR ---
PLACED ON 2L O2 VIA NC PER PT REQUEST. O2 SATURATION ON RA WAS 94% PRIOR. CALL LIGHT WITHIN REACH. NO OTHER NEEDS AT THIS TIME. .
--- NOTE | 2017-03-18 00:54 | NUR ---
ORHTOSTATIC VITALS COMPLETED ON PT. RESULTS WERE POSITIVE. THE PT IS A-SYMPTOMATIC. NOT LIGHTHEADED OR DIZZY. PT WAS ABLE TO COMPLETE TEST WITH OUT A PROBLEM. WILL CONTINUE TO MONITOR AND RECHECK ORTHOSTATIC VITALS IN THE MORNING.
--- NOTE | 2017-03-18 02:29 | NUR ---
PT APPEARS TO BE SLEEPING. O2 IN PLACE. CALL LIGHT WITHIN REACH.
--- NOTE | 2017-03-18 04:24 | NUR ---
PT SLEPTED THROUGHOUT THE NIGHT,. ORTHOSTATICS DONE THIS SHIFT. RESULTS POSITIVE. PT ON 2L NC AT [facility] CHRONICALLY. PT HAS BEEN NPO SINCE 299. STOOLS ARE WATER AND DARK BROWN. STOOL [place] HAS SLOWED DOWN. LUNGS COARSE IN LLL ONLY. PLAND ON COLONOSCOPY THIS AM SOMETIME.
--- NOTE | 2017-03-18 07:15 | NUR ---
BEDSIDE REPORT RECEIVED FROM REAL ESTATE LISTING CONSULTANT RN. PT RESTING IN BED. DISCUSSED PLAN OF CARE WITH PT. PT DENIES NEEDS AT THIS TIME.
--- NOTE | 2017-03-18 09:00 | NUR ---
PT RESTING IN BED. PT DENIES PAIN. PT ON ROOM AIR, LUNG SOUNDS CLEAR, DENIES SOB. PT NPO FOR PROCEDURE, BOWEL TONES ACTIVE, PT WITH WATERY DARK BROWN/BLACK STOOL. CMS INTACT, PT WITHOUT EDEMA, BROCK HOSE AND SCDS IN PLACE. D5LR INFUSING AT 75 ML/HR. DISCUSSED PLAN OF CARE WITH PT, PLAN FOR COLONOSPOY AT 1000. SIGNED CONSENT ON CHART.
--- NOTE | 2017-03-18 09:20 | NUR ---
Patient is resting in bed. Amlodipine was withheld per order parameters. Educated on operation for colonoscopy and medication administration. Pain level 2/10. Pain is at an level acceptable for the patient at this time.
--- NOTE | 2017-03-18 10:06 | NUR ---
PT TO OR FOR COLONOSCOPY. REPORT GIVEN TO OR NURSE.
--- NOTE | 2017-03-18 11:40 | NUR ---
PT RECEIVED FROM PACU. BEDSIDE REPORT OBTAINED FROM FINISHED HARDWARE ERECTOR. PT TRANSFERED SELF TO BED. PT ON ROOM AIR, NOS S/S OF RESP DISTRESS NOTED, LUNG SOUNDS CLEAR. BOWEL TONES ACTIVE, DENIES NAUSEA. CMS INTACT, WITHOUT EDEMA. PT DENIES PAIN. PT PROVIDED MENU FOR LUNCH. PT DENIES OTHER NEEDS AT THIS TIME.
--- NOTE | 2017-03-18 11:42 | NUR ---
THE NURSING STUDENTS FROM [facility] WILL BE PROVIDING TOTAL PT CARE TODAY, I WILL MAKE SURE TO COMMUNICATE OFTEN WITH STUDENTS TO MAKE SURE CARES ARE BEING DONE AND TO SEE IF THEY NEED ANY ASSISTANCE.
--- NOTE | 2017-03-18 11:48 | NUR ---
03/18/17 1148 Mer Hernadez 1111 RESP EVEN AND UNLABORED. 1115 O2 REMOVED O2 SAT 100%, PT DENINES PAIN AND NAUSEA. 1122 AT [facility]. 1130 VSS HEADED TO [facility]
--- NOTE | 2017-03-18 12:41 | NUR ---
PT EATING LUNCH, TOLERATING REGULAR DIET, DENIES NAUSEA. DISCUSSED PLAN OF CARE, PT REQUESTING TO SHOWER AFTER LUNCH BEFORE DISCHARGING. PT DENIES OTHER NEEDS AT THIS TIME.
--- NOTE | 2017-03-18 13:45 | NUR ---
PT SHOWERED WITH ASSISTANCE FROM BROKE HANDLER. PT SLIGTLY HYPOTENSIVE BLOOD PRESSURE 96/62, HR 96, PT DENIES DIZZINESS. DISCUSSED WITH PT THAT BLOOD PRESSURE WILL BE CHECKED AGAIN IN 1 HR BEFORE DISCHARGE. DISCUSSED POSSIBLE CAUSES OF HYPOTENSION, INCLUDING SHOWER, RECENT COLONOSCOPY, AND AMLODIPINE. PT DENIES NEEDS AT THIS TIME.
--- NOTE | 2017-03-18 14:01 | NUR ---
PT DRESSED, AND SITTING IN CHAIR AWAITING DC INSTRUCTINS. PT SAID HE FEELS MUCH BETTER, BUT DIDNOT FIND THE PROBLEM. HE MENTIONED THAT HE IS GOING TO SEE A DR IN [place] THAT HE HAS SEEN BEFORE. THANKED ME FOR STOPPING BY, I EXTENDED A BLESSING, HE SMILED AND RETURNED THE FAVOR
--- NOTE | 2017-03-18 14:45 | NUR ---
THIS RN WITH STUDENT NURSE GAVE PATIENT D/C INSTRUCTIONS AND QUESTIONS ANSWERED.
--- NOTE | 2017-03-25 10:17 | OR ---
[facility] [address], [place] [address] Signed DATE OF OPERATION: 03/18/2017 SURGEON: Tristen Buchanan MD PREOPERATIVE DIAGNOSES: 1. Anemia. 2. Melena. 3. Personal history of colonic polyps. 4. Diverticulosis. POSTOPERATIVE DIAGNOSIS: Minimal to moderate internal and external hemorrhoid. PROCEDURE: Colonoscopy without biopsy. FINDINGS: After 2 days of bowel prep, Olga still had brown liquid particulate stool matter in the colon. Fortunately, most of that was irrigated and suctioned out. We did not see any melena or red blood on this occasion. We saw no diverticula, no polyps, no cancer, no AV malformations, and no specific source for bleeding. His internal hemorrhoids were a bit irritated from 2 days of bowel prep, but no active bleeding. INDICATIONS: Olga is a 81-year-old gentleman, who is significantly disabled, particularly with COPD. He has been in our hospital 2 or 3 times the last several years with GI bleeds. He presents with melena and a decrease in his hemoglobin. He is also here last month with pneumonia. On this occasion, he felt some shortness of breath and just generalized weakness. He had not had a bowel movement for several days, so he was not sure about the stool. He came in the emergency room to be evaluated and a chest x-ray was fine. When they checked, he had dropped his hemoglobin, however, down to 6.3. He was therefore admitted to our Internal Medicine Service. I was asked to see him as a general surgeon on-call. We already did his upper endoscopy and we very carefully examined the duodenum, stomach and his hiatal hernia and we found no evidence of any bleeding. We had put him through a bowel prep and we brought him down yesterday for his colonoscopy and unfortunately, there was too much black liquid stool, we could not advance even beyond the rectosigmoid junction. Consequently, we aborted his colonoscopy yesterday and he went through another full bowel prep yesterday with plans to do his colonoscopy today. Olga is very familiar with colonoscopy having been through it several times. He understands there is risk including, but not limited to, gas bloating, crampy Electronically Signed By: TRISTEN BUCHANAN MD 03/25/17 1017 PATIENT NAME: OLGA LEMUS OPERATIVE REPORT DATE OF : 39 PHYSICIAN: TRISTEN BUCHANAN MD REPORT #: [id number] REPORT IS CONFIDENTIAL AND NOT TO BE RELEASED WITHOUT AUTHORIZATION [facility] [address], [place] [address] Signed abdominal pain, bleeding, perforation, requiring surgery, and missed diagnosis. Also, because of his advanced medical issues in particular his COPD, we did ask an anesthesia provider to help us with increased monitoring sedation. That proved to be bernstein, as he did take a significant amount of propofol. PROCEDURE NOTE: Olga was taken into our endoscopy suite and placed in the left lateral decubitus position. He was given IV sedation with propofol per our nurse conveyor installer. A digital rectal exam was performed and this was unremarkable other than some external hemorrhoids and skin tags. The adult colonoscope was introduced and advanced all around into the cecum itself under direct visualization. I took some abdominal compression and increase in the propofol in order to advance the scope. He has a somewhat long redundant colon. Several areas of brown liquid particulate stool matter had to be irrigated and suctioned out. We could easily see the [place]'s foot, the appendiceal orifice along with the ileocecal valve. The scope was then slowly withdrawn. We saw no evidence of any diverticula, no polyps, no AV malformations, no old blood or new blood. The rectum itself was unremarkable. Upon retroflexion of the scope, he does have some moderate beefy internal hemorrhoids after 2 days of bowel prep. They were irritated, but not bleeding. After this, the gas was suctioned out and the colonoscope removed. Olag tolerated the procedure quite well. RECOMMENDATIONS: Olga can follow up in my office in 7 to 14 days to review his results if he would like. He has already had an outpatient capsule endoscopy, which was negative. He could consider a small bowel follow-through as well. Tristen Buchanan MD ALB/MODL /[id number] cc: Hebert Brar DO Electronically Signed By: TRISTEN BUCHANAN MD 03/25/17 1017 PATIENT NAME: OLGA LEMUS OPERATIVE REPORT DATE OF : 39 PHYSICIAN: TRISTEN BUCHANAN MD REPORT #: [id number] REPORT IS CONFIDENTIAL AND NOT TO BE RELEASED WITHOUT AUTHORIZATION
--- NOTE | 2017-03-25 10:17 | OR ---
[facility] [address] [place], [place] [address] Signed DATE OF OPERATION: 03/17/2017 SURGEON: Tristen Buchanan MD PREOPERATIVE DIAGNOSES: 1. Anemia. 2. Melena. 3. Guaiac-positive stool. 4. Personal history of colonic polyps. 5. Diverticulosis. POSTOPERATIVE DIAGNOSES: 1. Extremely poor prep. 2. Melena. PROCEDURE: Limited colonoscopy (rectum). ESTIMATED BLOOD LOSS: None. INDICATIONS: Olga is a 81-year-old gentleman, I have known for several years. He is well known to our hospital. He has had several upper and lower endoscopies in the last several years related to anemia and melena and GI bleeds. No obvious source has been found. At one time thought there was some irritation in the stomach. There was some concern about diverticulosis and of course, he has had some small polyps removed. He even went for an outpatient capsule endoscopy and that was fine. He was just in our hospital recently with a pneumonia and was better and then sent home, but he was starting to feel weak and short of breath again, so he came back to the emergency room and his hemoglobin was low at 6.3. A chest x-ray was fine. He was admitted to the Internal Medicine Service and given 3 units of blood and this came out nicely with each unit. He said it has been several days since he had a bowel movement. He was not sure if his stool was black or not. He said he does not have any abdominal pain and certainly no vomiting of any blood. I have been asked to see him as a general surgeon on-call mainly for upper endoscopy. We did that yesterday and we looked very carefully throughout his duodenum, pyloric channel, his entire stomach, his small hiatal hernia. We examined very carefully for any Olegario ulcer or Inocencia-Stout tear and everything was fine. There was no fresh or old blood in the stomach. He then had a bowel movement and of course it was black and it was guaiac-positive. After talking with Olga, we went ahead and put him Electronically Signed By: TRISTEN BUCHANAN MD 03/25/17 1017 PATIENT NAME: OLGA LEMUS OPERATIVE REPORT DATE OF : 39 PHYSICIAN: TRISTEN BUCHANAN MD REPORT #: [id number] REPORT IS CONFIDENTIAL AND NOT TO BE RELEASED WITHOUT AUTHORIZATION [facility] [address] [place] [id number] Signed through his bowel prep yesterday with plans to do a colonoscopy today. When I arrived early this morning, the nurse and Olga told me he still had some black liquid stool coming from the anus. Unfortunately, I was not told until this morning. I explained to Olga that we could certainly try with the camera and maybe there were just be little black liquid stool in the rectum and once we got above that may be it would be clear and we could complete the colonoscopy, but if not, would have to repeat the bowel prep and plan on doing his colonoscopy the next day. In addition, Olga has significant past medical history including COPD and so we had an anesthesia provider help us with increased monitoring sedation with propofol. Olga had expressed understanding and wished to proceed. PROCEDURE NOTE: Olga was taken into our endoscopy suite and placed in the left lateral decubitus position. He was given IV sedation with propofol per nurse copy lathe operator. A digital rectal exam was performed and we had black soft liquid stool on the finger. The adult colonoscope was inserted and we never made it to the rectosigmoid junction. There was a wall of black liquid stool coming down. We irrigated and suctioned and insufflated with gas and never could get it to clear. After a few minutes then we had to abandon his colonoscopy. Olga tolerated the procedure quite well. RECOMMENDATIONS: Olga will be returned to his hospital bed. We will go ahead and allow on clear liquids today and repeat the bowel prep today and hopefully, he will be clear for tomorrow morning. Tristen Buchanan MD [facility]/MODL /[id number] cc: Hebert Brar DO Electronically Signed By: TRISTEN BUCHANAN MD 03/25/17 1017 PATIENT NAME: OLGA LEMUS OPERATIVE REPORT DATE OF : 39 PHYSICIAN: TRISTEN BUCHANAN MD REPORT #: [id number] REPORT IS CONFIDENTIAL AND NOT TO BE RELEASED WITHOUT AUTHORIZATION
== END 2017-03-18 15:05 | disposition home or self-care (01) | DRG 378 ==
LOC: ED 17:20 → CCU 19:28 → MS 19:28
PROVIDERS: ADMIT Internal Medicine
PROC: 30233N1 Transfusion of Nonautologous Red Blood Cells into Peripheral Vein, Percutaneous Approach (ICD-10-PCS; principal; 2017-03-15)
PROC: 0DJ08ZZ Inspection of Upper Intestinal Tract, Via Natural or Artificial Opening Endoscopic (ICD-10-PCS; 2017-03-16)
PROC: 0DJD8ZZ Inspection of Lower Intestinal Tract, Via Natural or Artificial Opening Endoscopic (ICD-10-PCS; 2017-03-17)
DX: K92.2 Gastrointestinal hemorrhage, unspecified (principal); D62 Acute posthemorrhagic anemia; Z87.891 Personal history of nicotine dependence; Z88.0 Allergy status to penicillin; I25.10 Atherosclerotic heart disease of native coronary artery without angina pectoris; J44.9 Chronic obstructive pulmonary disease, unspecified; R09.02 Hypoxemia; I10 Essential (primary) hypertension; Z66 Do not resuscitate; Z85.46 Personal history of malignant neoplasm of prostate; F39 Unspecified mood [affective] disorder
CPT/HCPCS: 36415; 36430; 71046; 80048; 80053; 83605; 83735; 84100; 84484; 85014; 85018; 85025; 86850; 86900; 86901; 86920; 87502; 93005; 93010; 94640; 94760; 94762; 97162; 99156; 99157; G0500; J0456; J0696; J2250; J2405; J2704; J2930; J3010; J7120; P9016

== ENCOUNTER 2017-05-27 11:46 | Emergency (ER) | payer MEDICARE, OTHER ==
[~2017-05-27] VITALS: Ht 180.3 cm; Wt 77.1 kg
--- OUTSIDE RECORDS SUMMARY | ~2017-05-27 | XMS | Clinical Summary ---
Demographics + + + | Address | [address] | | | [place] [address] | + + + | Home Phone | | + + + | Preferred Language | Unknown | + + + | Marital Status | | + + + | Mu-Ism Affiliation | 1076 | + + + | Race | Unknown | + + + | Ethnic Group | Unknown | + + + Author + + + | Author | [facility] | | | and [place] | + + + | Organization | [facility] | | | and [...] Team Providers + +------+ + | Care Diabetes Physician Name | Role | Phone | + +------+ + | Parviz Brar DO | PP | Unavailable | + +------+ + Allergies + + + + + + | Active Allergy | Reactions | Severity | Noted | Comments | | | | | Date | | + + + + + + | Ipratropium [place] | Other (See Comments) | | 04/07/19 | Reaction: Cough | | Hfa | | | 18 | | + + + + + [...] | Take one tablet by | | | 10/ | | Activ | | (NORVASC) 5 mg | mouth once daily. | | | 0/20 | | e | | tablet | | | | 12 | | | + + + +---------+------+------+-------+ | oxygen | Inhale 2 L into the | | | | | Activ | | | lungs nightly. | | | | | e | + + + +---------+------+------+-------+ | venlafaxine | Take 37.5 mg by | | | | | Activ | | (EFFEXOR XR) 37.5 mg | mouth Daily. | | | | | e | | 24 hr capsule | | | | | | | + + + +---------+------+------+-------+ | Respiratory | Please provide an O2 [...] | | + + + +---------+------+------+-------+ | zolpidem (AMBIEN) | Take 5 mg by mouth | | | | | Activ | | 5 mg tablet | nightly as needed. | | | | | e | | | SLEEP | | | | | | + + + +---------+------+------+-------+ | albuterol (PROAIR | Inhale 2 puffs [...] | | + + + +---------+------+------+-------+ | | Take 1 tablet by | | | | | Activ | | HYDROcodone-acetamin | mouth every 6 hours | | | | | e | | ophen (NORCO) 10-325 | as needed. | | | | | | | mg per tablet | | | | | | | + + + +---------+------+------+-------+ | [facility] LUTEIN PO | Take by mouth. | | | | | Activ | | | | | | | | e | + + + +---------+------+------+-------+ | | Inhale 1 puff into | [...] | + + + +---------+------+------+-------+ | ipratropium | Inhale 2 puffs into | 1 | 2 | 05/1 | | Activ | | (ATROVENT HFA) 17 | the lungs every 6 | Inhaler | | 0/20 | | e | | mcg/puff inhaler | hours as needed for | | | 16 | | | | | Wheezing (or | | | | | | | | shortness of | | | | | | | | breath). | | | | | | + + + +---------+------+------+-------+ | ketoconazole | | | 1 | 09/1 | | Activ | | (NIZORAL) 2% shampoo | | | | 4/20 | | e | | | | | | 16 | | | + + + +---------+------+------+-------+ | triamcinolone | ZAMZAM EXT AA BID FOR 2 | | 1 | 08/1 | | Activ | | (KENALOG) 0.1% cream | TO 4 WKS | | | 3/20 | | e | | | | | | 16 | | | + + + +---------+------+------+-------+ | Calcium | Take 1 tablet by | | | | | Activ | | Carb-Cholecalciferol | mouth Daily. Taking | | | | | e | | (CALCIUM-VITAMIN | 800 IU vitamin d | | | | | | | D3) 600-400 MG-UNIT | | | | | | | | TABS | | | | | | | + + + +---------+------+------+-------+ | pantoprazole | Take 1 tablet by | | 0 | 04/1 | | Activ | | (PROTONIX) 40 mg | mouth Daily. | | | 3/20 | | e | | tablet | | | | 17 | | | + + + +---------+------+------+-------+ | fluocinonide | | | 0 | 07/0 | | Activ | | (LIDEX) 0.05 % | | | | 7/20 | | e | | external solution | | | | 17 | | | + + + +---------+------+------+-------+ | levoFLOXacin | TK 1 T PO QD | | 0 | 07/1 | | Activ | | (LEVAQUIN) 500 mg | | | | 8/20 | | e | | tablet | | | | 17 | | | + + + +---------+------+------+-------+ | Multiple | Take 1 tablet by | | | | | Activ | | Vitamins-Minerals | mouth Daily. | | | | | e | | (OCUVITE EYE + | | | | | | | | MULTI) TABS | | | | | | | + + + +---------+------+------+-------+ | docusate sodium | Take by mouth. | | | | | Activ | | (COLACE) 100 mg | | | | | | e | | capsule | | | | | | | + + + +---------+------+------+-------+ | oxyCODONE | Take by mouth. | | | 04/2 | | Activ | | (ROXICODONE) 5 mg | | | | 3/20 | | e | | tablet | | | | 13 | | | + + + +---------+------+------+-------+ | temazepam | Take by mouth. | | | | | Activ | | (RESTORIL) 15 mg | | | | | | e | | capsule | | | | | | | + + + +---------+------+------+-------+ | tamsulosin | TAKE 2 CAPSULES BY | 60 | 5 | 11/1 | | Activ | | (FLOMAX) 0.4 mg CAPS | MOUTH ONCE DAILY | capsule | | 3/20 | | e | | | NEEDED | | | 17 | | | + + + +---------+------+------+-------+ | ferrous sulfate | Take 325 mg by mouth | | | | | Activ | | 325 mg tablet | daily (with | | | | | e | | | breakfast). | | | | | | + + + +---------+------+------+-------+ | leuprolide (LUPRON | Inject 30 mg into | | | | | Activ | | DEPOT, 4-MONTH,) 30 | the muscle Every 4 | | | | | e | | mg injection | months. | | | | | | + + + +---------+------+------+-------+ | polyethylene | Take 17 g by mouth | | | | | Activ | | glycol (MIRALAX) | Daily. | | | | | e | | packet | | | | | | | + + + +---------+------+------+-------+ | sucralfate | Take 1 g by mouth 4 | | | | | Activ | | (CARAFATE) 1 g | times daily. | | | | | e | | tablet | | | | | | | + + + +---------+------+------+-------+ Active Problems + + + | Problem | Noted Date | + + + | Gastrointestinal hemorrhage with melena | 04/22/2017 | + + + | Chronic respiratory failure with hypoxia (HCC) | 12/03/2016 | + + + | History of gastroesophageal reflux (GERD) | 12/03/2016 | + + + | History of tobacco use, presenting hazards to health | 12/03/2016 | + + + | Preventative health care | 03/15/2015 | + + + + + | Overview: PSA 02/27/17 1.27 | | 12/28/15 0.247 | | 06/29/15 0.217 | | 04/04/15 3.39 | | 01/04/2015 5.65 | | 09/25/14 4.57 | | 11/2013 0.128 | | 07/2013 5.38 | | 10/2012 2.5 | | 08/2011 0.0172 | | 04/2011 1.32 | | 06/2007 13.9 | + + + + + | Prostate cancer (HCC) | 03/06/2015 | + + + + + | Overview: S/p XRT [facility] with Dr. 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) | 01/26/2013 | + + + | Anemia | 06/10/2012 | + + + | Epistaxis | 06/10/2012 | + + + | COPD (chronic obstructive pulmonary disease) (HCC) | | + + + | Benign [...] 4 | + + + + Encounters +--------+ + + + + | Date | Type | Specialty | Care Team | Description | +--------+ + + + + | 05/04/ | Telephone | | Marc Odell | Results, Imaging | | 2017 | | | MD Noe | | +--------+ + + + + | 04/27/ | Telephone | | Marc Odell | Lab Order | | 2017 | | | MD Noe | | +--------+ + + + + | 04/21/ | Office | | Marc Odell | Gastrointestinal | | 2017 | Visit | | MD Noe | hemorrhage, | | | | | | unspecified | | | | | | gastrointestinal | | | | | | hemorrhage type | | | | | | (Primary Dx); | | | | | | Gastrointestinal | | | | | | hemorrhage with | | | | | | melena | +--------+ + + + + | 04/07/ | Abstract | | Froylan Werner MD | | | 2017 | | | | | +--------+ + + + + | 03/23/ | Telephone | | Froylan Werner MD | GI Bleeding | | 2017 | | | | | +--------+ + + + + | 03/02/ | Office | | Jorje Rutledge | Prostate cancer | | 2017 | Visit | | MD Tim | ([facility]) (Primary Dx) | +--------+ + + + + from Last 3 Months Immunizations + + + + | Name | Dates Previously Given | Next Due | + + + [...] 1 DOSE | 04/22/2013 | | | (ADULT) | | | + + + + [...] Given: No | | Comments: quit pipe 2010 | + + + + +---------+ + | Alcohol Use | Drinks/We | oz/Week | Comments | | | ek | | | + + +---------+ + | No | 0 | 0.0 | | | | Standard | | | | | drinks or | | | | | | | | | | equivalen | | | | | t | | | + + +---------+ + + + + | Sex Assigned at | Date Recorded | | | | + + + | Not on file | | + + + Last Filed Vital Signs + + + + | Vital Sign | Reading | Time Taken | + + + + | Blood Pressure | 140/80 | 04/21/20178 PST | + + + + | Pulse | 81 | 04/21/20178 PST | + + + + | Temperature | 36.6 C (97.8 F) | 04/21/20171537 PST | + + + + | Respiratory Rate | 14 | 04/21/20171537 PST | + + + + | Oxygen Saturation | 95% | 04/21/20171537 PST | + + + + | Inhaled Oxygen | - | - | | Concentration | | | + + + + | Weight | 79.2 kg (174 lb 9.7 | 04/21/20171537 PST | | | oz) | | + + + + | Height | 177.8 cm (5' 10") | 04/21/20171537 PST | + + + + | Body Mass Index | 25.05 | 04/21/2017 1538 PST | + + + + Plan of Treatment +--------+---------+ + + + | Date | Type | Specialty | Care Team | Description | +--------+---------+ + + + | 05/31/ | Office | | Jorje Rutledge | | | 2017 | Visit | | MD Tim [address] | | | | | [address] | | | | | | [place] | | | | | | [id number] | | | | | | | | +--------+---------+ + + + + + + + + | Health Maintenance | Due Date | Last Done | Comments | + + + + + | Vaccine: | | | | | Dtap/Tdap/Td (1 - | 7 | | | | Tdap) | | | | + + + + + | Statin Therapy | | | | | (optimal intensity) | 5 | | | + + + + + | Vaccine: Influenza | | 11/10/2014, 11/18/2013, | | | (#1) | 7 | 12/11/2012 | | + + + + + | Vaccine: Zoster | Completed | 04/22/2013 | | + + + + + | Vaccine: | Completed | 03/13/2014, 10/21/2010 | | | Pneumococcal 65+ | | | | | High/Highest Risk | | | | + + + + + Procedures + +--------+ + + + | Procedure Name | Priori | Date/Time | Associated Diagnosis | Comments | | | ty | | | | + +--------+ + + + | DIAGNOSTIC REPORT - | | 03/18/2017 | | Results for this | | EXTERNAL SCAN | | 0000 PST | | procedure are in the | | | | | | results section. | + +--------+ + + + | EXTERNAL: | Routin | 03/18/2017 | | Results for this | | COLONOSCOPY | e | 0000 PST | | procedure are in the | | | | | | results section. | + +--------+ + + + | DIAGNOSTIC REPORT - | | 03/16/2017 | | Results for this | | EXTERNAL SCAN | | 0000 PST | | procedure are in the | | | | | | results section. | + +--------+ + + + from Last 3 Months Results IMAGING REPORT - EXTERNAL SCAN (04/28/2017)Only the most recent of 2 results within the is included. + + | Narrative | + + | Ordered by an unspecified provider. | + + External Lab: BUN (03/18/2017) + +-------+ + | Component | Value | Ref Range | + +-------+ + | BUN, External | 7 | 6 - 23 | + +-------+ + + + + | Specimen | Performing Laboratory | + + + | | EXTERNAL LAB | + + + External Lab: Magnesium (03/18/2017) + +-------+ + | Component | Value | Ref Range | + +-------+ + | Magnesium, External | 2.0 | 1.7 - 2.5 | + +-------+ + + + + | Specimen | Performing Laboratory | + + + | | EXTERNAL LAB | + + + External Lab: Carbon Dioxide (03/18/2017) + +-------+ + | Component | Value | Ref Range | + +-------+ + | Carbon Dioxide, | 25 | 19 - 31 | | External | | | + +-------+ + + + + | Specimen | Performing Laboratory | + + + | | EXTERNAL LAB | + + + External Lab: Chloride (03/18/2017) + +-------+ + | Component | Value | Ref Range | + +-------+ + | Chloride, External | 108 | 95 - 112 | + +-------+ + + + + | Specimen | Performing Laboratory | + + + | | EXTERNAL LAB | + + + External Lab: Potassium (03/18/2017) + +-------+ + | Component | Value | Ref Range | + +-------+ + | Potassium, External | 3.6 | 3.6 - 5.1 | + +-------+ + + + + | Specimen | Performing Laboratory | + + + | | EXTERNAL LAB | + + + External Lab: Sodium (03/18/2017) + +-------+ + | Component | Value | Ref Range | + +-------+ + | Sodium, External | 140 | 132 - 143 | + +-------+ + + + + | Specimen | Performing Laboratory | + + + | | EXTERNAL LAB | + + + External Lab: CBC (03/18/2017) + + + + | Component | Value | Ref Range | + + + + | WBC, External | 7.5 | 4.5 - 11 | + + + + | HGB, External | 9.3 (A) | 13.5 - 18 | + + + + | HCT, External | 28.0 (A) | 41 - 50 | + + + + | PLT, External | 311 | 140 - 440 | + + + + | Neutrophils %, | 75.2 | 39 - 80 | | External | | | + + + + | Lymphocytes %, | 12.7 (A) | 24 - 44 | | External | | | + + + + | Monocytes %, | 8.0 | 0 - 12 | | External | | | + + + + | Eosinophils %, | 5.0 | 0 - 6 | | External | | | + + + + | RBC, External | 3.20 (A) | 4.3 - 5.7 | + + + + | MCV, External | 88 | 81 - 99 | + + + + | RDW, External | 14.8 | 10.5 - 15 | + + + + + + + | Specimen | Performing Laboratory | + + + | | EXTERNAL LAB | + + + EXTERNAL: COLONOSCOPY (03/18/2017) + + + + | Component | Value | Ref Range | + + + + | Colonoscopy | Postoperative Diagnosis: Minimal to | | | Impression, External | moderate internal and external hemorrhoid. | | | | 03/18/2017 MD LAY Sabillon | | + + + + + + + | Specimen | Performing Laboratory | + + + | | EXTERNAL LAB | + + + External Lab: eGFR (03/18/2017) + +-------+ + | Component | Value | Ref Range | + +-------+ + | eGFR, External | 82 | 60 - 99,999 | + +-------+ + + + + | Specimen | Performing Laboratory | + + + | Blood | EXTERNAL LAB | + + + External Lab: Creatinine (03/18/2017) + + + + | Component | Value | Ref Range | + + + + | Creatinine, External | 0.39 (A) | 0.7 - 1.18 | + + + + + + + | Specimen | Performing Laboratory | + + + | Blood | EXTERNAL LAB | + + + DIAGNOSTIC REPORT - EXTERNAL SCAN (03/18/2017) + + | Narrative | + + | Ordered by an unspecified provider. | + + CBC with Differential (03/18/2017) + +-------+ + | Component | Value | Ref Range | + +-------+ + | MCH | 29.0 | pg | + +-------+ + | MCHC | 33.0 | % | + +-------+ + | BASOPHILS % | 0.2 | % | + +-------+ + + + + | Specimen | Performing Laboratory | + + + | Blood | | + + + Comprehensive Metabolic Panel (03/18/2017) + +-------+ + | Component | Value | Ref Range | + +-------+ + | ANION GAP | 12 | 7 - 21 mmol/L | + +-------+ + | Bun/Creatinine | 7.9 | 6 - 28.6 Ratio | + +-------+ + + + + | Specimen | Performing Laboratory | + + + | Blood | | + + + DIAGNOSTIC REPORT - EXTERNAL SCAN (03/16/2017) + + | Narrative | + + | Ordered by an unspecified provider. | + + POCT Urinalysis Dipstick Automated (03/02/2017 1049) + + + + | Component | Value | Ref Range | + + + + | Color, UA, POC | Yellow | Yellow, Light Yellow | + + + + | Clarity, UA, POC | Clear | | + + + + | Glucose, UA, POC | Negative | Negative | + + + + | Bilirubin, UA, POC | Negative | Negative | + + + + | Ketones, UA, POC | Negative | Negative, 100 mg/dL | + + + + | Specific [place], | 1.010 | 1.001 - 1.030 | | UA, POC | | | + + + + | Blood, UA, POC | Negative | Negative | + + + + | pH, UA, POC | 7.0 | 5.0, 6.0, 7.0, 8.0, | | | | 5.5, 6.5, 7.5 | + + + + | Protein, UA, POC | Negative | Negative | + + + + | Urobilinogen, UA, | 0.2 | 0.2, Negative, | | POC | | Normal, < 0.2 mg/dL, | | | | 1 mg/dL, < 0.2 | | | | E.U./dl, 1.0 | | | | E.U./dL, 0.2 mg/dL | + + + + | Nitrite, UA, POC | Negative | Negative | + + + + | Leukocyte Esterase, | Negative | Negative | | UA, POC | | | + + + + | RED SUB UA | | | + + + + | ICTOTEST | | Negative | + + + + | REMARK | | | + + + + + + + | Specimen | Performing Laboratory | + + + | Urine | | + + + from Last 3 Months Insurance + +--------+ +--------+ +---------+ | Payer | Benefi | Subscriber | Type | Phone | Address | | | t Plan | ID | | | | | | / | | | | | | | Group | | | | | + +--------+ +--------+ +---------+ | MEDICARE | MEDICA | xxxxxxxxxx | Medica | [phone] | | | RE | | re | [phone] | | | | PART A | | | | | | | AND B | | | | | + +--------+ +--------+ +---------+ | [employer] | TRANSA | xxxxxxxxx | Indemn | | | | INSURANCE | MERICA | | ity | | | | | LIFE | | | | | | | MS | | | | | + +--------+ +--------+ +---------+ + +--------+ +--------+ + + | Guarantor Name | Accoun | Relation to | Date | Phone | Billing Address | | | t Type | Patient | of | | | | | | | | | | + +--------+ +--------+ + + | DIEGO LUCAS | Person | Self [birth year] Home: | [address] | | | al/Fam | | [phone] | [phone] | [place] [address] | | | leslie | | | [phone] | | + +--------+ +--------+ + +
--- OUTSIDE RECORDS SUMMARY | ~2017-05-27 | XMS | Clinical Summary ---
Demographics + + + | Address | [address] | | | [place] [address] | + + + | Home Phone | | + + + | Preferred Language | Unknown | + + + | Marital Status | | + + + | Baptism Affiliation | PRE | + + + [...] Team Providers + +------+ + | Care Cascade Operator Name | Role | Phone | + +------+ + | Parviz Brar DO | PP | | + +------+ + Source Comments VERENA is fully live on both [facility] Ambulatory and [facility] InPatient.[facility] Allergies + + + + [...] | 3/20 | | e | | Cameron | every six hours as | | [...] 3/20 | | e | | Aerosol, Cameron | while awake. | | | 13 | | | + + + +---------+------+------+-------+ Active Problems + + + | Problem | Noted Date | + + + | Epistaxis | 06/10/2012 | + + + | Anemia | 06/10/2012 | + + + Family History + +------+--------+ + | Relation [...] 11/18/2013, | | | (FLU SHOT) | 8 | 12/11/2012 | | + + + + + Results Not on filefrom Last 3 Months"
--- OUTSIDE RECORDS SUMMARY | ~2017-05-27 | XMS | Encounter Summary ---
Demographics + + + | Address | [address] | | | [place] [address] | + + + | Home Phone [...] | Author | [facility] | | | and [place] | + + + | Organization | [facility] | | | and [place] [...] Team Providers + +------+ + | Care Nuclear Plant Technical Advisor Name | Role | Phone | + +------+ + | Parviz Brar DO | PCP | Unavailable | + +------+ + Reason for Visit + + + | Reason | Comments | + + + | Lab Order | | + + + Encounter Details +--------+ + + + + | Date | Type | Department | Care Team | Description | +--------+ + + + + | 04/27/ | Telephone | [facility] | Marc Odell | Lab Order | | 2018 | | GASTROENTEROLOGY | MD Noe [address] | | | | | [address] [facility] | [address] [facility] | | | | | [address] [place], [place] | [place] [address] | | | | | [address] | [phone] | | | | | [phone] | | | +--------+ + + + [...] + + | 05/31/ | Office | Urology | Jorje Rutledge | | | 2018 | Visit | | MD Tim [address] | | | | | | [address] | | | | | | [place] | | | | | | [id number] | | | | | | | | +--------+---------+ + + + + +--------+ + + | Name | Priori | Associated Diagnoses | Order Schedule | | | ty | | | + +--------+ + + | Creatinine | Routin | Gastrointestinal | 1 Occurrences | | | e | hemorrhage, | starting 04/27/2017 | | | | unspecified | until 04/27/2018 | | | | gastrointestinal | | | | | hemorrhage type | | + +--------+ + + as of this encounter Visit Diagnoses + + | Diagnosis | + + | Gastrointestinal hemorrhage, unspecified gastrointestinal hemorrhage type - Primary | + +"
--- OUTSIDE RECORDS SUMMARY | ~2017-05-27 | XMS | Encounter Summary ---
Demographics + + + | Address | [address] | | | [place] [address] | + + + | Home Phone [...] | [facility] | | | and [place] | + + + | Organization | [facility] | | | and [...] Team Providers + +------+ + | Care Cement Boat And Barge Loader Name | Role | Phone | + [...] + + | 03/02/ | Office | [facility] | Jorje Rutledge | Prostate cancer | | 2018 | Visit | [address] | MD Tim [address] | ([facility] (Primary Dx) | | | | [address] | [facility] [address] | | | | | [place] [address] | [place], [place] | | | | | [phone] | [address] | | | | | | | [...] + + + as of this encounter Last Filed Vital Signs + + + + | Vital Sign | Reading | Time Taken | + + + + | Blood Pressure | 135/68 | 03/02/20177 PST | + + + + | Pulse | 87 | 03/02/20177 PST | + + + + | Temperature | - | - | + + + + | Respiratory Rate | 16 | 03/02/20171026 PST | + + + + | Oxygen Saturation | - | - | + + + + | Inhaled Oxygen | - | - | | Concentration | | | + + + + | Weight | 79 kg (174 lb 2.6 | 03/02/20171026 PST | | | oz) | | + + + + | Height | 177.8 cm (5' 10") | 03/02/20171026 PST | + + + + | Body Mass Index | 24.99 | 03/02/20171026 PST | + + + + in this encounter Progress Notes Jorje Rutledge MD - 03/02/2017 1100 PSTFormatting of this note may be different from the original. Diego is a 81 y.o. male patient of Parviz Brar being seen today for follow-up of Prost ate Cancer. He is a pleasant gentleman with a history ofT2c or T3 adenocarcinoma the prostate, Velpen 4+3 = 7, PSA 13.9, which was [...] bilateral; COPD (chronic obstructive pu lmonary disease) ([facility]); Depression; Diverticulosis (01/2015); Foot fracture (02/2012); Gastri tis (01/2015); GI bleed (01/2015); Heart murmur; Heartburn; Hiatal hernia (01/2015); History of rectal bleeding; Hypertension; Insomnia; Kidney stone (2004); Lumbar disc herniation; Mi graines; Mood disorder ([facility]) of unknown (axis III) etiology; Nocturnal hypoxia; Osteoarthrit is; Peptic ulcer disease; Pneumonia (05/2012); Prostate cancer ([facility]) (2007); Pulmonary nodule s; Shoulder fracture (02/2012); Supplemental oxygen dependent; SVT (supraventricular tachycar anushka) ([facility]) (01/2014); and TIA (transient ischemic attack). Past [...] by mouth Daily. 0 Respiratory Therapy Supplies [facility] Please provide an [...] 02/27/17 1.27 10/24/16 0.203 06/26/170.140 12/28/15 0.247 5/160.217 163.39 01/04/20155.65 8//154.57 .128 .38 10/20122.5 08/20110.0172 .32 .9 IMPRESSION: Stage T2c to T3 Velpen 4+3 = 7 adenocarcinoma the prostate, status [...] t is made to edit the content, review scheduling coordinator errors may occur. Occasional wrong- word or kallie nd-alike substitutions may have occurred due to the inherent limitations of the currently us ed voice recognition software. Please read the chart carefully and recognize, using context, where these substitutions may have occurred. in this encounter Plan of Treatment +--------+---------+ [...] [place] | | | | | | [address] | | | | | | | | +--------+---------+ + + + + +--------+ + + | Name | Priori | Associated Diagnoses | Order Schedule | | | ty | | | + +--------+ + + | Basic Metabolic Panel | Routin | Prostate cancer | Expected: | | | e | (HCC) | 05/24/2017, Expires: | | | | | 03/03/2018 | + +--------+ + + | PSA, Diagnostic | Routin | Prostate cancer | Expected: | | | e | (HCC) | 05/24/2017, Expires: | | | | | 03/03/2018 | + +--------+ + + as of this encounter Results POCT Urinalysis Dipstick Automated (03/02/2017 1049) + [...] | + + + + | Specific [place], | 1.010 | 1.001 - 1.030 | [...] | Urine | | + + + IMAGING REPORT - EXTERNAL SCAN (03/02/2017) + + | Narrative | + + | Ordered by an unspecified provider. | + + in this encounter Visit Diagnoses + + | Diagnosis | + + | Prostate cancer (HCC) - Primary | + + | Malignant neoplasm of prostate | + +
--- OUTSIDE RECORDS SUMMARY | ~2017-05-27 | XMS | Encounter Summary ---
Demographics + + + | Address | [address] | | | [place] [address] | + + + | Home Phone [...] Author | [facility] | | | and [place] | + + + | Organization | [facility] | | | and [...] + +------+ + | Care Director Of Manufacturing Operations Name | Role | Phone | + [...] + + | 03/02/ | Office | [facility] | Jorje Rutledge | Prostate cancer | | 2018 | Visit | [address] | MD Tim [address] | ([facility]) (Primary Dx) | | | | [address] [place] | [facility] [address] | | | | | [place] [address] | [place], [place] | | | | | [phone] | [address] | | | | | [...] history ofT2c or T3 adenocarcinoma the prostate, Rushford 4+3 = 7, PSA 13.9, which was [...] bilateral; COPD (chronic obstructive pu lmonary disease) ([facility]); Depression; Diverticulosis (01/2015); Foot fracture (02/2012); Gastri tis (01/2015); GI bleed (01/2015); Heart murmur; Heartburn; Hiatal hernia (01/2015); History of rectal bleeding; Hypertension; Insomnia; Kidney stone (2004); Lumbar disc herniation; Mi graines; Mood disorder ([facility]) of unknown (axis III) etiology; Nocturnal hypoxia; Osteoarthrit is; Peptic ulcer disease; Pneumonia (05/2012); Prostate cancer ([facility]) (2007); Pulmonary nodule s; Shoulder fracture (02/2012); Supplemental oxygen dependent; SVT (supraventricular tachycar anushka) ([facility]) (01/2014); and TIA (transient ischemic attack). Past [...] mouth Daily. 0 Respiratory Therapy Supplies [facility] Please provide an O2 concentrator while Diego [...] .32 .9 IMPRESSION: Stage T2c to T3 Rushford 4+3 = 7 adenocarcinoma the prostate, status [...] t is made to edit the content, solid waste technician errors may occur. Occasional wrong- word or [...] [place] | | | | | | [address] | | | | | | | [...] | + + + + | Specific [place], | 1.010 | 1.001 - 1.030 | [...]
--- OUTSIDE RECORDS SUMMARY | ~2017-05-27 | XMS | Encounter Summary ---
Demographics + + + | Address | [address] | | | [place] [address] | + + + | Home Phone [...] + | Author | [facility] | | | and [place] | + + + | Organization | [facility] [...] Team Providers + +------+ + | Care Halftone Operator Name | Role | Phone | [...] | unspecified | [place], [place] | [place] [address] | | | | | gastrointest | [address] | Phone: | | | | | inal | Phone: | [phone] | | | | | hemorrhage | [phone] | Fax: | | | | | type | Fax: | [phone] | | | | | Procedures | [phone] | | | | | | [place] GI IMAG | | | | | [...] | | hemorrhage, | [address] [place] [address] | | | | | unspecified | [place], [place] | [place], [place] | | | | | gastrointest | [address] | [address] | | | | | inal | Phone: | Phone: | | | | | hemorrhage | [phone] | [phone] | | | | | type | Fax: | Fax: | | | | | Procedures | [phone] | [phone] | | | | | CT | [...] Zonia, | Alphonso, | | | | andria | | Parviz Choi, | Froylan Choi MD | | | | | Gastrointest | DO [address] | [address], | | | | | inal | [address] [place] | [address] | | | | | hemorrhage, | [place], [place] | [place], | | | | | unspecified | [address] | [place] [address] | | | | | Procedures | Phone: | Phone: | | | | | Office | [phone] | [phone] | | | | | Visit | Fax: | Fax: | | | | | | [phone] | [phone] | +--------+--------+ + + + + Encounter Details +--------+---------+ + + + | Date | Type | Department | Care Team | Description | +--------+---------+ + + + | 04/21/ | Office | [facility] | Marc Odell | Gastrointestinal | | 2018 | Visit | GASTROENTEROLOGY | MD Noe [address] | hemorrhage, | | | | [address] [place] | [address] [place] | unspecified | | | | [address] [place], [place] | [place] [address] | gastrointestinal | | | | [address] | [phone] | hemorrhage type | | | | [phone] | | (Primary Dx); | | | [...] + | Blood Pressure | 140/80 | 04/21/20171537 PST | + + + + | Pulse | 81 | 04/21/20171537 PST | + + + [...] | Body Mass Index | 25.05 | 04/21/20171537 PST | + + + + in this encounter Progress Notes Marc Odell MD - 04/21/2017 1530 PSTFormatting of this note may be different from the original. Outpatient Gastroenterology Consult Note Date of Office Visit: 04/22/17 Referring Provider: Parviz Brar [address] [place] [address] [place] [address] Providing Physician: Marc Odell MD. Chief Complaint: Other (gastrointestinal hemorrage) History of Present Illness Diego Lucas is a 81 y.o. male with a history of prostate cancer, CAD, COPD, and recur rent GI hemorrhage who presents for further evaluation of his recurrent GI bleeds. His most recent bleed was in February 2017, for which he was hospitalized at [facility]. H e had developed painless melena, and [...] Clavicle fracture COPD (chronic obstructive pulmonary disease) ([facility]) DR BILLY ARAUJO Depression Dermatophytosis tinea capitis [...] with upper GI bleed Pneumonia 05/2012 hospitalized [facility] Prostate cancer (HCC) 2008 s/p radiation treatment and on hormonal treatment with Lupron; DR JULIAN IN [place] Pulmonary nodules Seborrheic dermatitis of scalp Shoulder fracture 02/2012 Supplemental oxygen dependent 02@2L AT NIGHT SVT (supraventricular tachycardia) ([facility]) 01/[address] Wilder for ablation TIA (transient ischemic attack) SEVERAL. LAST TIME 2012.NO RESIDUAL; CT SCAN/ ANGIO IN PAST Vasovagal syncope Past Surgical History Past Surgical History: Procedure Laterality Date ABLATION OF DYSRHYTHMIC FOCUS 03/19/2014 Laterality: N/A; Surgeon: Jennifer Wilder MD; Location: [facility] ELECTROPHYSIOLOGY ANGIOGRAM EARLY 1979 FOR TIA HISTORY APPENDECTOMY CATARACT REMOVAL 03/2013 Left CATARACT REMOVAL WITH IMPLANT 11/2011 Right Catheter ablation [facility] COLONOSCOPY [address] [facility] COLONOSCOPY 03/18/2017 Postoperative Diagnosis: [...] No other animal exposures. Grew up in [place]. Then lived in [place]. Then moved to [place]. In the service lived i [facility] and [place]. No recent travel. Allergies Allergies Allergen Reactions Ipratropium [place] Hfa Other (See Comments) Reaction: Cough Penicillins [...] g by mouth Daily. Respiratory Therapy Supplies [facility] Please provide an O2 concentrator while Diego [...] bowel lesion, this can be done in [place] -if this is negative, then I would [...] or fail to improve. CC: Parviz Brar [address] [place] [address] [place] [address] Portions of this chart may have been created with Dragon voice recognition software. Occasi onal wrong-word or sound-alike substitutions may have occurred due to the inherent mi itations of voice recognition software. Please read the chart carefully and recognize, using context, where these substitutions have occurredin this encounter Plan of Treatment +--------+---------+ + + + | Date | Type | Specialty | Care Team | Description | +--------+---------+ + + + | 05/31/ | Office | Urology | Jorje Rutledge | | | 2017 | Visit | | MD Tim [address] | | | | | | [facility] [address] | | | | | | [place] | | | | | | [address] | | | | | | | | +--------+---------+ + + + + +--------+ + + | Name | Priori | Associated Diagnoses | Order Schedule | | | ty | | | + +--------+ + + | CT Enterography | Routin | Gastrointestinal | Expected: | | | e | hemorrhage, | 04/21/2017, Expires: | | | | unspecified | 04/21/2018 | | | | gastrointestinal | | | | | hemorrhage type | | + +--------+ + + + +--------+ + + | Name | Priori | Associated Diagnoses | Order Schedule | | | ty | | | + +--------+ + + | Ambulatory referral to | Routin | Gastrointestinal | 1 Occurrences | | Gastroenterology [place]) | e | hemorrhage, | starting 04/21/2017 | | | | unspecified | until 04/21/2018 | | | | gastrointestinal | | | | | hemorrhage type | | + +--------+ + + as of this encounter Procedures + +--------+ [...] section. | + +--------+ + + + in this encounter Results IMAGING REPORT - EXTERNAL SCAN (04/28/2017) + + | Narrative | + + | Ordered by an unspecified provider. | + + DIAGNOSTIC REPORT - EXTERNAL SCAN (03/18/2017) + + | Narrative | + + | Ordered by an unspecified provider. | + + DIAGNOSTIC REPORT - EXTERNAL SCAN (03/16/2017) + + | Narrative | + + | Ordered by an unspecified provider. | + + in this encounter Visit Diagnoses + + | Diagnosis | + + | Gastrointestinal hemorrhage, unspecified gastrointestinal hemorrhage type - Primary | + + | Gastrointestinal hemorrhage with melena | + +
--- OUTSIDE RECORDS SUMMARY | ~2017-05-27 | XMS | Encounter Summary ---
Demographics + + + | Address | [address] | | | [place] [address] | + + + | Home Phone | | + + + | Preferred Language | Unknown | + + + | Marital Status | Unknown | + + + | Uatsdin Affiliation | Unknown | + + + | Race | Unknown | + + + | Ethnic Group | Unknown | + + + Author + + + | Author | [facility] [employer] | + + + | Organization | [facility] [employer] | + + + | Address | Unknown | + + + | Phone | Unavailable | + + + Support + + +---------+ + | Name | Relationship | Address | Phone | + + +---------+ + | Candis Banuelos | ECON | Unknown | | + + +---------+ + Care Team Providers + +------+ + | Care Casting Finisher Name | Role | Phone | + +------+ + | Hebert Brar DO | PCP | | + +------+ + Reason for Visit + + + | Reason | Comments | + + + | Follow-up | | + + + | COPD | | + + + Encounter Details +--------+---------+ + + + | Date | Type | Department | Care Team | Description | +--------+---------+ + + + | 05/03/ | Office | [facility] | Armani, | Chronic obstructive | | 2018 | Visit | Pulmonology [address] | Onelia Hollingsworth, | lung disease, type B | | | | [facility] | MD Azael Haney ([facility]) (Primary Dx); | | | | [place], [place] | [place] [address] | Multiple pulmonary | | | | [address] | [phone] | nodules; Chronic | | | | [phone] | | respiratory failure | | | | | | with hypoxia (HCC); | | | | | | Chronic anemia | +--------+---------+ + + + Social History [...] PM PDT | + + + + in this encounter Progress Notes Onelia Lomeli MD - 05/03/2017 1:15 PM PDTFormatting of this note may be dif ferent from the original. Subjective: Patient ID: Diego Lucas is a 81 y.o. male with a history of PUD, GERD, hiatal hernia, O A, history of SVT, history of prostate cancer, COPD, multiple pulmonary nodules that are sta ble, past smoker here to establish care. HPI Mr Lucas is a pleasant 81 yr old man who was diagnosed with COPD in 2009. He says that his breathing was severe for a time due to underlying anemia. He was found to have underlyin g PUD and active bleeding from the site, and so he was started on a PPI. Since then, he feel s that his dyspnea has become a lot better, and he no longer has significant anemia. He repo rts that he has participated in Pulm Rehab, and he feels like has become stronger and less s hort of breath with this program. He admits to being short of breath with going up and down the stair case, but he otherwise can perform all of his ADLs and chores without difficulty. He has a chronic cough productive of white to yellow sputum. He denies hemoptysis. He denies pedal edema or chest pains. He denies dysphagia or aspiration, and he denies uncontrolled r eflux s/s. He has been maintained on a PPI. He has no PNDs, and he normally sleeps on his si de. He denies fatigue, weight loss, fevers or chills. He has been maintained on O2 at night at 2 LPM via NC. He is also on Breo Ellipta daily and prn albuterol which he uses about 2-3x a day. His last CT was done in 2012, which showed mu ltiple pulmonary nodules. He has a chronic sebaceous cyst on the R side of the neck which ferro s not been excised. Interval History Mr Lucas is here for a follow up. It seems that he was hospitalized again this winter f or anemia, requiring blood transfusion. Since then, it appears that he no longer needs oxyge n on exertion. He has been active at home (lives in an adult facility), and does not usually get short of breath unless climbing up and down a flight of stairs. He rarely has a cough, and minimal phlegm. He denies chest pains, orthopnea or PNDs. He denies dysphagia, aspiratio n or uncontrolled reflux disease. He does have pedal edema but this is better than what it was on his last visit with us. He has been seen by GI and had both an upper endoscopy and lo wer endoscopy without any note of significant lesion that may point to a reason why he is lo sing blood. He has been feeling so well that he has stopped using his Breo Ellipta, and is only on albu terol HFA as needed. He also has atrovent which he uses as needed as well. He still has O2 t anks at home, but uses this mostly at night. SOCIAL HISTORY He is a former pipe smoker, and had 10-15 pipe fulls of tobacco daily. He stopped in 2010. He smoked cigarettes but only for a short time 30 years ago. He served in the [employer] fo r 3 years. 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 The following portions of the patient's history were reviewed and updated as appropriate an d is available elsewhere in the record: allergies, current medications, past family history, past medical history, past social history, past surgical history and problem list. Review of Systems Constitutional: Positive for fatigue. Negative for activity change, appetite change, chills , diaphoresis, fever and unexpected weight change. HENT: Negative for congestion, nosebleeds, postnasal drip, rhinorrhea and sore throat. Eyes: Negative for visual disturbance. Respiratory: Positive for cough, shortness of breath and wheezing. Negative for apnea, chok ing, chest tightness and stridor. Cardiovascular: Negative for chest pain, palpitations and leg swelling. Gastrointestinal: Negative for constipation, diarrhea and nausea. Genitourinary: Negative for dysuria and frequency. Musculoskeletal: Positive for arthralgias. Negative for joint swelling, myalgias and neck p ain. Skin: Negative for rash. Neurological: Negative for dizziness, weakness and light-headedness. Hematological: Negative for adenopathy. Psychiatric/Behavioral: Negative for sleep disturbance. Active Ambulatory Problems Diagnosis Date Noted Chronic obstructive lung disease, type B (HCC) 12/03/2016 Multiple pulmonary nodules 12/03/2016 Nocturnal hypoxia 12/03/2016 History of tobacco use, presenting hazards to health 12/03/2016 Chronic respiratory failure with hypoxia (HCC) 12/03/2016 History of gastroesophageal reflux (GERD) 12/03/2016 Resolved Ambulatory Problems Diagnosis Date Noted No Resolved Ambulatory Problems Past Medical History: Diagnosis Date Asthma Chronic obstructive pulmonary disease (HCC) Coronary artery disease Hypertension Past Surgical History Procedure Laterality Date CARDIAC SURGERY 2014 ablation Objective: Physical Exam BP 132/74 (BP Location: Right upper arm, Patient Position: Sitting) | Pulse 82 | Temp 96. 6 F (35.9 C) (Oral) | Ht 1.803 m (5' 11") | Wt 78.9 kg (174 lb) | SpO2 94% | BMI 24. 27 kg/m Vital signs reviewed. Oxygen saturation noted at 94% on ambient air HEENT: pink conjunctiva, anicteric sclerae, moist oral mucosae and without any lesions, nor mal appearing nasal mucosae; no JVD; MALAMPATTI 4; no thyromegaly; no cervicolymphadenopathi es; palpable nodule on R neck that is subcutaneous CVS: PMI laterally displaced, NRRR, S1 and S2, no murmurs/gallops/rubs CHEST: Examination of the chest was unremarkable. There were no bony deformities, no asymme try, and no other abnormalities. LUNGS: Normal effort, Equal in expansion, resonant to percussion,decreased breath sounds di ffusely. NO adventitious sounds today. ABDOMEN: Flat abdomen, NABS, non-tender on palpation, Traube's space intact, liver span nor mal, no masses palpated EXTREMITIES: good distal pulses, no cyanosis, no clubbing, no nail abnormalities, no edema today NEURO: awake and oriented, gait normal, no focal neurologic deficits LABORATORY AND IMAGING No PFT to review -last spirom[facility] done in May in [facility]'s CT of the chest done in 2012 reviewed. IMPRESSION: 1. THERE ARE NODULES BILATERALLY. ALL THOSE IDENTIFIED HAVE BEEN SURVEILLED AT LEAST DATIN G TO August, AND ARE NOT ENLARGED OR SIGNIFICANTLY CHANGED. THERE ARE AREAS OF PLEURAL PARENCHYM AL IRREGULARITY IN THE ANTERIOR LEFT UPPER LOBE CONSISTENT WITH SCARRING FROM RESOLVED PNEUMON IA. SIMILAR CHANGES ARE SEEN IN THE POSTERIOR RIGHT LOWER LOBE. THERE HAS BEEN RESOLUTION OF NODULAR AR EAS OF PNEUMONIA IN THE LEFT LOWER LOBE WITH SOME RESIDUAL LINEAR SCARS. 2. THERE ARE NO NEW NODULES. 3. THERE IS A BACKGROUND OF SEVERE EMPHYSEMATOUS CHANGE. 4. THERE IS ENLARGEMENT OF THE MAIN PULMONARY ARTERY SUGGESTING UNDERLYING PULMONARY ARTER IAL HYPERTENSION. Assessment and Plan: 1. Chronic obstructive lung disease, type B (HCC) Mr Fay is a pleasant 81 yr old man who was diagnosed with COPD in 2009. He has both em physematous disease and chronic bronchitis. His breathing and level of dyspnea have improved since correction of his anemia. He has been maintained on Breo Ellipta daily and prn albute rol HFA. However, he has done so good, and has not used her Breo on a regular basis. I have requested that he starts back on Breo, and I explained what maintenance inhalers usually do for COPD -and this is to keep exacerbations at bay and also to help preserve lung function. He understood and will go back to this daily dose. He has not had any overt worsening of his dyspnea. He has completed NE last year. 2. Multiple pulmonary nodules He has multiple pulmonary nodules noted on a CT since 2010, and these have been deemed stab le, and so has not had any follow up CT done since 2012. 3. Chronic respiratory failure with hypoxia (HCC) Daytime O2 is better, and this is reassuring. Continue using oxygen at night at 2LPM via na clifford cannula. 4. Chronic anemia Post blood transfusion. Unclear etiology as of this time. Continue to be vigilant about blo od loss. Anemia will exacerbate dyspnea and hypoxemia. 5. History of tobacco use, presenting hazards to health Continue to be vigilant about adverse effects of tobacco use. He is at high risk for develo ping head and neck and pulmonary malignancy secondary to his smoking history. Thank you for allowing us to participate in this patient's care. A return visit has been re quested/scheduled 5-6 Months for routine clinical follow up. The patient was instructed to call our clinic for any questions, and for any concerns regarding worsening dyspnea, cough o r change in sputum production. We will see the patient sooner than the recommended follow up date, if with any worsening of symptoms. Onelia Lomeli MD Pulmonary and Critical Care Medicine [facility] [address] [place] [address] in this encounter Plan of Treatment +--------+---------+ + + + | Date | Type | Specialty | Care Team | Description | +--------+---------+ + + + | 11/03/ | Office | Pulmonology | Armani, | | | 2017 | Visit | | Onelia Hollingsworth, | | | | | | MD [address] | | | | | | [place] [address] | | | | | | [phone] | | | | | | | | +--------+---------+ + + + as of this encounter Visit Diagnoses + + | Diagnosis | + + | Chronic obstructive lung disease, type B (HCC) - Primary | + + | Chronic airway obstruction, not elsewhere classified | + + | Multiple pulmonary nodules | + + | Other nonspecific abnormal finding of lung field | + + | Chronic respiratory failure with hypoxia (HCC) | + + | Chronic respiratory failure | + + | Chronic anemia | + + | Anemia, unspecified | + +
--- OUTSIDE RECORDS SUMMARY | ~2017-05-27 | XMS | Encounter Summary ---
Demographics + + + | Address | [address] | | | [place] [address] | + + + | Home Phone | | + + + | Preferred Language | Unknown | + + + | Marital Status | Unknown | + + + | Restorationism Affiliation | Unknown | + + + | Race | Unknown | + + + | Ethnic Group | Unknown | + + + Author + + + | Author | [facility] [employer] | + + + | Organization | [facility] [employer] | + + + | Address | Unknown | + + + | Phone | Unavailable | + + + Support + + +---------+ + | Name | Relationship | Address | Phone | + + +---------+ + | Candis Banuelos | ECON | Unknown | | + + +---------+ + Care Team Providers + +------+ + | Care Data Scientist Name | Role | Phone | + [...] + + | 05/03/ | Office | [facility] | Armani, | Chronic obstructive | | 2018 | Visit | Pulmonology [address] | Onelia Hollingsworth, | lung disease, type B | | | | [facility] | MD Azael Haney ([facility]) (Primary Dx); | | | | [place], [place] | [place] [address] | Multiple pulmonary | | | | [address] | [phone] | nodules; Chronic | | | | [phone] | | respiratory failure | | | [...] 30 years ago. He served in the [employer] fo r 3 years. 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 The following portions of the patient's [...] review -last spirometry done in May in [facility]'s CT of the chest done in 2012 [...] worsening of his dyspnea. He has completed SD last year. 2. Multiple pulmonary nodules He [...] Lomeli MD Pulmonary and Critical Care Medicine [facility] [address] [facility] [place] [address] in this encounter Plan of Treatment +--------+---------+ + + + | Date | Type | Specialty | Care Team | Description | +--------+---------+ + + + | 11/03/ | Office | Pulmonology | Armani, | | | 2017 | Visit | | Onelia Hollingsworth, | | | | | | MD [address] | | | | | | [place] [address] | | | | | | [phone] | | | | | | | [...]
--- OUTSIDE RECORDS SUMMARY | ~2017-05-27 | XMS | Clinical Summary ---
Demographics + + + | Address | [address] | | | [place] [address] | + + + | Home Phone [...] + +------+ + | Care Audio Visual Manager Name | Role | Phone | + +------+ + | Parviz Brar DO | PP | | + +------+ + Source Comments VERENA is fully live on both [facility] Ambulatory and [facility] InPatient.[facility] Allergies + + + + [...] | 3/20 | | e | | [place] | every six hours as | | [...] 3/20 | | e | | Aerosol, [place] | while awake. | | | 13 [...]
--- OUTSIDE RECORDS SUMMARY | ~2017-05-27 | XMS | Encounter Summary ---
Demographics + + + | Address | [address] | | | [place] [address] | + + + | Home Phone [...] + | Author | [facility] | | | and [place] | + + + | Organization | [facility] | | [...] Providers + +------+ + | Care Senior Field Engineer Name | Role | Phone | [...] + + | 03/23/ | Telephone | [facility] | Froylan Werner MD | GI Bleeding | | 2018 | | GASTROENTEROLOGY | [address] [place] | | | | | [address] [place] | [address] [place], [place] | | | | | [address] [place], [place] | [address] | | | | | [address] | | | | | | [phone] | | | +--------+ + + + [...] | | | | | | [address] [facility] [address] | | | | | | [place] | | | | | | [address] | | | | | | | | +--------+---------+ + + + as of this encounter Visit Diagnoses Not on filein this encounter"
--- OUTSIDE RECORDS SUMMARY | ~2017-05-27 | XMS | Encounter Summary ---
Demographics + + + | Address | [address] | | | [place] [address] | + + + | Home Phone [...] | Author | [facility] | | | and [place] | + + + | Organization | [facility] [...] Team Providers + +------+ + | Care Tafe Registrar Name | Role | Phone | + [...] 2018 | | GASTROENTEROLOGY | [address], [place] | | | | | [address] [place] | [address] [place], [place] | | | | | [address] [place], [place] | [address] | | | | | [address] | | | | | | [phone] | | | +--------+ + + + [...] | | | | | | [facility] [address] | | | | | | [place] | | | | | | [address] | | | | | | | | +--------+---------+ + + + as of this encounter Procedures [...] + + + in this encounter Results EXTERNAL: COLONOSCOPY (03/18/2017) [...] | EXTERNAL LAB | + + + CBC with Differential (03/18/2017) + [...] | Blood | | + + + External Lab: BUN (03/18/2017) + [...] | EXTERNAL LAB | + + + in this encounter Visit Diagnoses Not on filein this encounter"
--- OUTSIDE RECORDS SUMMARY | ~2017-05-27 | XMS | Clinical Summary ---
Demographics + + + | Address | [address] | | | [place] [address] | + + + | Home Phone [...] Author | [facility] | | | and [place] | + + + | Organization | [facility] | | | [...] Team Providers + +------+ + | Care Falafel Cart Cook Name | Role | Phone | + +------+ + | Parviz Brar DO | PP | Unavailable | + +------+ + Allergies + + + + + + | Active Allergy | Reactions | Severity | Noted | Comments | | | | | Date | | + + + + + + | Ipratropium [place] | Other (See Comments) | | 04/07/19 [...] + + + | Overview: S/p XRT [facility] with Dr. Garza | | On Lupron | | | | PSA 0.203 10/24/16 | + + + + + | SVT (supraventricular tachycardia) ([facility]) | 03/13/2014 | + + [...] | Visit | | MD Tim | ([facility]) (Primary Dx) | +--------+ + [...] [place] | | | | | | [address] | | | | | | | [...] | + + + + | Specific [place], | 1.010 | 1.001 - 1.030 | [...] | 1936 | [phone] | [place] [address] | | | [place] | | | [phone] | | + +--------+ +--------+ + +
--- OUTSIDE RECORDS SUMMARY | ~2017-05-27 | XMS | Encounter Summary ---
Demographics + + + | Address | [address] | | | [place] [address] | + + + | Home Phone [...] + | Author | [facility] | | | and [place] | + + + | Organization | [facility] | | [...] Team Providers + +------+ + | Care Gear Tooth Grinding Machine Operator Name | Role | Phone [...] | unspecified | [place], [place] | [place] [address] | | | | | gastrointest | [address] | Phone: | | | | | inal | Phone: | [phone] | | | | | hemorrhage | [phone] | Fax: | | | | | type | Fax: | [phone] | | | | | Procedures | [phone] | | | | | | ID GI IMAG | | | | | [...] | | | | | gastrointest | [address] | [address] | | | | | inal | Phone: | Phone: | | | | | hemorrhage | [phone] | [phone] | | | | | type | Fax: | Fax: | | | | | Procedures | [phone] | [phone] | | | | | CT | [...] | DO [address] | [address], | | | | | inal | [address] | [place] [address] | | | | | hemorrhage, | [place], [place] | [place], | | | | | unspecified | [address] | [place] [address] | | | | | Procedures | Phone: | Phone: | | | | | Office | [phone] | [phone] | | | | | Visit | Fax: | Fax: | | | | | | [phone] | [phone] | +--------+--------+ + + + + Encounter Details +--------+---------+ + + + | Date | Type | Department | Care Team | Description | +--------+---------+ + + + | 04/21/ | Office | [facility] | Marc Odell | Gastrointestinal | | 2018 | Visit | GASTROENTEROLOGY | MD Noe [address] | hemorrhage, | | | | [address] [place] | [address] [place] | unspecified | | | | [address] [place], [place] | [place] [address] | gastrointestinal | | | | [address] | [phone] | hemorrhage type | | | | [phone] | | (Primary Dx); | | | [...] Office Visit: 04/22/17 Referring Provider: Parviz Brar [address] [place] [address] [place] [address] Providing Physician: Marc Odell MD. Chief Complaint: Other (gastrointestinal hemorrage) History of Present Illness Diego Lucas is a 81 y.o. male with a history of prostate cancer, CAD, COPD, and recur rent GI hemorrhage who presents for further evaluation of his recurrent GI bleeds. His most recent bleed was in February 2017, for which he was hospitalized at [facility]. H e had developed painless melena, [...] Clavicle fracture COPD (chronic obstructive pulmonary disease) ([facility]) DR BILLY ARAUJO Depression Dermatophytosis tinea [...] with upper GI bleed Pneumonia 05/2012 hospitalized [facility] Prostate cancer (HCC) 2008 s/p radiation treatment and on hormonal treatment with Lupron; DR JULIAN IN [place] Pulmonary nodules Seborrheic dermatitis of scalp Shoulder fracture 02/2012 Supplemental oxygen dependent 02@2L AT NIGHT SVT (supraventricular tachycardia) ([facility]) 01/[address] Wilder for ablation TIA (transient ischemic attack) SEVERAL. LAST TIME 2012.NO RESIDUAL; CT SCAN/ ANGIO IN PAST Vasovagal syncope Past Surgical History Past Surgical History: Procedure Laterality Date ABLATION OF DYSRHYTHMIC FOCUS 03/19/2014 Laterality: N/A; Surgeon: Jennifer Wilder MD; Location: [facility] ELECTROPHYSIOLOGY ANGIOGRAM EARLY 1979 FOR TIA HISTORY APPENDECTOMY CATARACT REMOVAL 03/2013 Left CATARACT REMOVAL WITH IMPLANT 11/2011 Right Catheter ablation [facility] COLONOSCOPY 2016 [facility]-Dr. Arellano COLONOSCOPY 03/18/2017 Postoperative Diagnosis: Minimal [...] No other animal exposures. Grew up in [place]. Then lived in [place]. Then moved to [place]. In the service lived i [facility] and [place]. No recent travel. Allergies Allergies Allergen Reactions Ipratropium [place] [facility] Other (See Comments) Reaction: Cough Penicillins [...] g by mouth Daily. Respiratory Therapy Supplies [facility] Please provide an O2 concentrator while Diego [...] bowel lesion, this can be done in [place] -if this is negative, then I would [...] or fail to improve. CC: Parviz Brar [address] [place] [address] [place] [address] Portions of this chart may have been [...] | | | | | | [facility] [address] | | | | | | [place] | | | | | | [address] | | | | | | | [...]
--- OUTSIDE RECORDS SUMMARY | ~2017-05-27 | XMS | Encounter Summary ---
Demographics + + + | Address | [address] | | | [place] [address] | + + + | Home Phone [...] | Author | [facility] | | | and [place] | + + + | Organization | [facility] [...] Team Providers + +------+ + | Care Case Management Assistant Name | Role | Phone | [...] + + | 05/04/ | Telephone | [facility] [place] | Marc Odell | Results, Imaging | | 2018 | | GASTROENTEROLOGY | MD Noe [address] | | | | | [address] [place] | [address] [place] | | | | | [address] [place], [place] | [facility] [place] [address] | | | | | [address] | [phone] | | | | | [phone] | | | +--------+ + + + [...] | | | | | [facility] | | | | | | [place] | | | | | | [address] | | | | | | | | +--------+---------+ + + + as of this encounter Visit Diagnoses Not on filein this encounter"
--- OUTSIDE RECORDS SUMMARY | ~2017-05-27 | XMS | Encounter Summary ---
Demographics + + + | Address | [address] | | | [place] [address] | + + + | Home Phone [...] [facility] | | | and [place] | + + + | Organization | [facility] | | | [...] Team Providers + +------+ + | Care Funeral Car Driver Name | Role | Phone | [...] [place] | | | | | [address] [place], [place] | [place] [address] | | | | | [address] | [phone] | | | | | [phone] | | | +--------+ + + + [...] | | | | | [facility] | | | | | | [place] | | | | | | [address] | | | | | | | | +--------+---------+ + + + as of this encounter Visit Diagnoses Not on filein this encounter"
--- OUTSIDE RECORDS SUMMARY | ~2017-05-27 | XMS | Clinical Summary ---
Demographics + + + | Address | [address] | | | [place] [address] | + + + | Home Phone [...] + + + | Author | [facility] | + + + | Organization | [facility] | + + + | Address | Unknown | + + + | Phone | Unavailable | + + + Support + + +---------+ + | Name | Relationship | Address | Phone | + + +---------+ + | Candis Banuelos | ECON | Unknown | | + + +---------+ + Care Team Providers + +------+ + | Care Carpenter Name | Role | Phone | [...] (ROXICODONE) 5 MG | | | | 320 | | e | | immediate release [...] Take 1 tablet by | | | 11/22 | | Activ | | (NORVASC) 5 MG | mouth daily. | | | 0 | | e | | tablet | [...] Take 325 mg by | | | /0 | | Activ | | 65 FE, 325 (65 FE) | mouth. | | | 5 | | e | | MG tablet [...] Inhale 2 puffs into | | | 05/1 | | Activ | | (ATROVENT HFA) 17 | the lungs. | | | 0/20 | | e | | MCG/ACT inhaler | | | | 16 | | | + + + +---------+------+------+-------+ | ketoconazole | | | | 10/23 | | Activ | | (NIZORAL) 2 % | | | | 06/11 | | e | | shampoo | | | | 16 | | | + + + +---------+------+------+-------+ | pantoprazole | Take 1 tablet by | | | / | | Activ | | (PROTONIX) 40 MG | mouth. | | | 320 | | e | | tablet | | | | 17 | | | + + + +---------+------+------+-------+ | Respiratory | Please provide an O2 | | | 05/0 | | Activ | | Therapy Supplies | concentrator while | | | 20 | | e | | MISC | [...] 1 g | mouth. | | | 5 | | e | | tablet | | | | 17 | | | + + + +---------+------+------+-------+ | tamsulosin | Take 1 capsule by | | | 09/ | | Activ | | (FLOMAX) 0.4 MG | mouth. 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, | lung disease, type B | | | | | MD | (HCC) (Primary Dx); | | | | | | Multiple pulmonary | | | | | | nodules; Chronic | | | | | | respiratory failure | | | | | | with hypoxia (HCC); | | | | | | Chronic anemia | +--------+---------+ + + + from Last 3 Months Social History + +-------+ +--------+ + | Tobacco Use | Types | Packs/Day | Years | Date | | | | | Used | | + +-------+ +--------+ + | Former Smoker | | | | Quit: 2010 | + +-------+ +--------+ + + +---+---+---+ [...] + + | 11/03/ | Office | | Armani, | | | 2018 | Visit | | Onelia Hollingsworth, | | | | | | MD [address] | | | | | | [place] [address] | | | | | | [phone] | | | | | | | | +--------+---------+ + + + Results Not on filefrom Last 3 Months Insurance + +--------+ +------+-------+ + | Payer | Benefi | Subscriber | Type | Phone | Address | | | t Plan | ID | | | | | | / | | | | | | | Group | | | | | + +--------+ +------+-------+ + | MEDICARE | MEDICA | xxxxxxxxxx | | | [address] | | | RE | | | | [place] [id number] | | | IP-OP | | | | | + +--------+ +------+-------+ + | COMMERCIAL OTHER | TRANSA | xxxxxxxxx | | | | | | MERICA [...] | Self [birth year] | Home: | | | | al/Fam | | 1936 | [phone] | [place] [address] | | | [place] | | | [phone] | | + +--------+ +--------+ + +
--- OUTSIDE RECORDS SUMMARY | ~2017-05-27 | XMS | Encounter Summary ---
Demographics + + + | Address | [address] | | | [place] [address] | + + + | Home Phone [...] | Author | [facility] | | | and [place] | + + + | Organization | [facility] | | | [...] + + | 04/27/ | Telephone | [facility] | Marc Odell | Lab Order | | 2018 | | GASTROENTEROLOGY | MD Noe [address] | | | | | [address] [facility] | [address] [facility] | | | | | [address] [place], [place] | [place] [address] | | | | | [address] | [phone] | | | | | [phone] | | | +--------+ + + + [...] [place] | | | | | | [address] | | | | | | | [...]
--- OUTSIDE RECORDS SUMMARY | ~2017-05-27 | XMS | Encounter Summary ---
Demographics + + + | Address | [address] | | | [place] [address] | + + + | Home Phone [...] + + | Author | [facility] | | | and [place] | + + + | Organization | [facility] | | | [...] Team Providers + +------+ + | Care Roll Cutting Operator Name | Role | Phone | [...] 2018 | | GASTROENTEROLOGY | [address], [place] | | | | | [address] [place] | [address] [place], [place] | | | | | [address] [place], [place] | [address] | | | | | [address] | | | | | | [phone] | | | +--------+ + + + [...] | | | | | | [facility] [address] | | | | | | [place] | | | | | | [address] | | | | | | | [...]
--- OUTSIDE RECORDS SUMMARY | ~2017-05-27 | XMS | Encounter Summary ---
Demographics + + + | Address | [address] | | | [place] [address] | + + + | Home Phone [...] + + | Author | [facility] | | | and [place] | + + + | Organization | [facility] | | [...] + + | 03/23/ | Telephone | [facility] | Froylan Werner MD | GI Bleeding | | 2018 | | GASTROENTEROLOGY | [address], [place] | | | | | [address] [place] | [address] [place], [place] | | | | | [address] [place], [place] | [address] | | | | | [address] | | | | | | [phone] | | | +--------+ + + + [...] | | | | | | [facility] [address] | | | | | | [place] | | | | | | [address] | | | | | | | | +--------+---------+ + + + as of this encounter Visit Diagnoses Not on filein this encounter"
--- OUTSIDE RECORDS SUMMARY | ~2017-05-27 | XMS | Clinical Summary ---
Demographics + + + | Address | [address] | | | [place] [address] | + + + | Home Phone | | + + + | Preferred Language | Unknown | + + + | Marital Status | Unknown | + + + | Rastafarian Affiliation | Unknown | + + + | Race | Unknown | + + + | Ethnic Group | Unknown | + + + Author + + + | Author | [facility] [employer] [facility] | + + + | Organization | [facility] | + + + | Address | Unknown | + + + | Phone | Unavailable | + + + Support + + +---------+ + | Name | Relationship | Address | Phone | + + +---------+ + | Candis Banuelos | ECON | Unknown | | + + +---------+ + Care Team Providers + +------+ + | Care Printed Circuit Board Designer Name | Role | Phone | [...] Dr | | | | | | [place] [address] | | | | | | [phone] | | | | | | | [...] | xxxxxxxxxx | | | [address] | | | RE | | | | [place] [address] | | | IP-OP | | | [...] | 1936 | [phone] | [place] [address] | | | [place] | | | [phone] | | + +--------+ +--------+ + +
[~2017-05-27 11:46] MED LIST changes: +PROAIR HFA8.5 GM INH; +PROTONIX40 MG PO
== END 2017-05-27 14:00 | disposition home or self-care (01) ==
LOC: ED 11:46
DX: K92.2 Gastrointestinal hemorrhage, unspecified (principal); J44.9 Chronic obstructive pulmonary disease, unspecified; I10 Essential (primary) hypertension; D64.9 Anemia, unspecified; Z87.891 Personal history of nicotine dependence; Z88.0 Allergy status to penicillin; Z79.899 Other long term (current) drug therapy
CPT/HCPCS: 85025; 99283

== ENCOUNTER 2017-08-13 23:08 | Emergency (ER) | payer MEDICARE, OTHER ==
[~2017-08-13] VITALS: Ht 180.3 cm; Wt 77.1 kg
[2017-08-13] MEDS ORDERED: MONTELUKAST SOD10 MG PO (23:19)
== END 2017-08-14 00:16 | disposition home or self-care (01) ==
LOC: ED 23:08
DX: L50.9 Urticaria, unspecified (principal); I10 Essential (primary) hypertension; Z87.891 Personal history of nicotine dependence; Z88.0 Allergy status to penicillin; Z79.899 Other long term (current) drug therapy
CPT/HCPCS: 96372; 99282; J1200

== ENCOUNTER 2019-02-24 09:03 | Inpatient (IN) | payer MEDICARE, OTHER ==
[~2019-02-24] VITALS: Ht 180.3 cm; Wt 71.4 kg
--- OUTSIDE RECORDS SUMMARY | ~2019-02-24 | XMS | Encounter Summary ---
Demographics + + + | Address | [address] | | | [place] [address] | + + + | Home Phone | | + + + | Preferred Language | Unknown | + + + | Marital Status | | + + + | Orthodox Affiliation | 1076 | + + + | Race | Unknown | + + + | Ethnic Group | Unknown | + + + Author + + + | Author | [facility] | | | and [place] | + + + | Organization | [facility] | | | and [place] | + + + | Address | Unknown | + + + | Phone | Unavailable | + + + Support + + + + + | Name | Relationship | Address | Phone | + + + + + | Andrez Lucas | ECON | NA | | | | | [place] | | + + + + + | Candis Haney ECON | NA | | | | | [place] | | + + + + + Care Team Providers + +------+ + | Care Retail Sales Director Name | Role | Phone | + +------+ + | Parviz Brar DO | PCP | | + +------+ + Reason for Visit +--------+ + | Reason | Comments | +--------+ + | Other | | +--------+ + Encounter Details +--------+ + + + + | Date | Type | Department | Care Team | Description | +--------+ + + + + | 03/12/ | Telephone | [facility] [place] | [place], | Other | | 2016 | | PULMONARY [address] | Becca Segura MD | | | | | [place], | | | | | | [place] [address] | | | | | | [phone] | | | +--------+ + + + + Social History + + + +--------+ + | Tobacco Use | Types | Packs/Day | Years | Date | | | | | Used | | + + + +--------+ + | Former Smoker | Cigarettes, Pipe | 0.3 | 20 | Quit: 09/22/2009 | + + + +--------+ + + +---+---+---+ | Smokeless Tobacco: | | | | | Never Used | | | | + +---+---+---+ + + +---------+ + | Alcohol Use | Drinks/Week | oz/Week | Comments | + + +---------+ + | No | 0 Standard drinks | 0.0 | | | | or equivalent | | | + + +---------+ + + + + | Sex Assigned at | Date Recorded | | | | + + + | Not on file | | + + + + + + + | Job Start Date | Occupation | Industry | + + + + | Not on file | Not on file | Not on file | + + + + + + + + | Travel History | Travel Start | Travel End | + + + + + + | No recent travel history available. | + + documented as of this encounter Plan of Treatment +--------+---------+ + + + | Date | Type | Specialty | Care Team | Description | +--------+---------+ + + + | 03/13/ | Office | Urology | Jorje Rutledge | | | 2020 | Visit | | MD [address] | | | | | | [address] | | | | | | [place] [address] | | | | | | [phone] | | | | | | | | +--------+---------+ + + + documented as of this encounter Visit Diagnoses Not on filedocumented in this encounter"
--- OUTSIDE RECORDS SUMMARY | ~2019-02-24 | XMS | Encounter Summary ---
Demographics + + + | Address | [address] | | | [place] [address] | + + + | Home Phone | | + + + | Preferred Language | Unknown | + + + | Marital Status | | + + + | Synagogue Affiliation | 1076 | + + + | Race | Unknown | + + + | Ethnic Group | Unknown | + + + Author + + + | Author | [facility] | | | and [place] | + + + | Organization | [facility] | | | and [place] [...] + + + + + | Candis Beyer | ECON | NA | | | | | [place] | | + + + + + Care Team Providers + +------+ + | Care Pet Trainer Name | Role | Phone | + +------+ + PCP | Unavailable | + +------+ + Reason for Visit +--------+ + | Reason | Comments | +--------+ + | Other | | +--------+ + Encounter Details +--------+ + + + + | Date | Type | Department | Care Team | Description | +--------+ + + + + | 12/21/ | Telephone | [facility] [place] | Rupa Watt, | Other | | 2011 | | PULMONARY [address] | RN | | | | | [place], | | | | | | [place] [address] | | | | | | [phone] | | | +--------+ + + + + Social History + +-------+ +--------+------+ | Tobacco Use | Types | Packs/Day | Years | Date | | | | | Used | | + +-------+ +--------+------+ | Never Assessed | | | | | + +-------+ +--------+------+ + + + | Sex Assigned at [...] | | | | | | [place] [address] | | | | | | [phone] | | | | | | | | +--------+---------+ + + + documented as of this encounter Visit Diagnoses Not on filedocumented in this encounter"
--- OUTSIDE RECORDS SUMMARY | ~2019-02-24 | XMS | Encounter Summary ---
Demographics + + + | Address | [address] | | | [place] [address] | + + + | Home Phone | | + + + | Preferred Language | Unknown | + + + | Marital Status | | + + + | Shinto Affiliation | [id number] | + + + | Race | Unknown | + + + | Ethnic Group | Unknown | + + + Author + + + | Author | [facility] | | | and [place] | + + + | Organization | [facility] | | | and [place] | [...] Team Providers + +------+ + | Care Wire Drawing Setter Name | Role | Phone | + +------+ + | Jason Read | PCP | | | MD | | | + +------+ + Reason for Visit + + + | Reason | Comments | + + + | Prostate Cancer | | + + + Encounter Details +--------+---------+ + + + | Date | Type | Department | Care Team | Description | +--------+---------+ + + + | 08/31/ | Office | [facility] | Jorje Rutledge | Prostate cancer | | 2018 | Visit | [address] | [address] | ([facility]) (Primary Dx); | | | | [place] | [address] [facility] | Preventative health | | | | [address] | [place] [address] | care | | | | [phone] | [phone] | | | | | | | | +--------+---------+ + + + Social History [...] | | | + +---+---+---+ + + | Comments: quit pipe 2010 | + + + + +---------+ + [...] + + + | Blood Pressure | 135/80 | 08/31/2017 9:51 AM | | | | | PDT | | + + + + + | Pulse | 70 | 08/31/2017 9:51 AM | | | | | PDT | | + + + + + | Temperature | - | - | | + + + + + | Respiratory Rate | 18 | 08/31/2017 9:51 AM | | | | | PDT | | + + + + + | Oxygen Saturation | - | - | | + + + + + | Inhaled Oxygen | - | - | | | Concentration | | | | + + + + + | Weight | 77.1 kg (169 lb 15.6 | 08/31/2017 9:51 AM | | | | oz) | PDT | | + + + + + | Height | 177.8 cm (5' 10") | 08/31/2017 9:51 AM | | | | | PDT | | + + + + + | Body Mass Index | 24.39 | 08/31/2017 9:51 AM | | | | | PDT | | + + + + + documented in this encounter Progress Notes Jorje Rutledge MD - 08/31/2017 10:15 AM PDTFormatting of this note might be differen t from the original. Diego is a 81 y.o. male patient of Jason Read MD being seen today for a follow up fo r prostate cancer. He is a pleasant gentleman with a history ofT2c or T3 adenocarcinoma the prostate, Gap 4+3 = 7, PSA 13.9,which was diagnosed in June 2007. He received radiation therapy by Dr. Garza, with post radiation adjuvant Lupron administrat ion for approximately 1-1/2 years. His PSA soy was 0.01. He did have a post radiation PSA recurrence with a slow doubling time, and in July 2013, al s PSA was 5.38. He was started on Lupron, from mid 2013 until December 31, 2015. He tolerat ed the Lupron with significant hot flashes, but no other symptomatic difficulties. Megace was tried for hot flashes, but unfortunately did not seem to alleviate his symptoms. He is now 21 months since his last Lupron administration, and his PSA is rising again, with a doubling time of approximately every 3 months. He is not having any new irritative or ob structive voiding symptoms. His weight is stable, and his energy is good. He is not having any bone pain. He has requested starting Lupron again after his PSA is greater than 5. Past Medical History He has a past medical history of Actinic keratosis of scalp; Anemia; Benign prostatic hyper trophy; Bereavement without complication; C. difficile enteritis (2012); CAD (coronary arter y disease); Cataracts, bilateral; Clavicle fracture; COPD (chronic obstructive pulmonary dis ease) (); Depression; Dermatophytosis tinea capitis; Diverticulosis (01/2015); Essential hypertension; Foot fracture (02/2012); Gastritis (01/2015); GI bleed (01/2015); Heart murmur; Heartburn; Hiatal hernia (01/2015); History of rectal bleeding; Hypoxia; Insomnia; Iron def iciency anemia; Kidney stone (2004); Lumbar disc herniation; Migraines; Mood disorder ([facility]) of unknown (axis III) etiology; Nocturnal hypoxia; Osteoarthritis; Peptic ulcer disease; Pne umonia (05/2012); Prostate cancer ([facility]) (2007); Pulmonary nodules; Seborrheic dermatitis of s calp; Shoulder fracture (02/2012); Supplemental oxygen dependent; SVT (supraventricular tachy cardia) ([facility]) (01/2014); TIA (transient ischemic attack); and Vasovagal syncope. Past Surgical History He has a past surgical history that includes Pancreas surgery; Appendectomy; cyst removal; nasal hemorrhage control (05/2012); Cataract removal with implant (11/2011); Cataract Removal (03/2013); Lumbar spine surgery (1987, 1989); Angiogram (EARLY 1979); ablation of dysrhythm ic focus (03/19/2014); Esophagus dilation (02/06/2015); Leuprolide acetate injections; Cathet er ablation; Colonoscopy (2016); IRRADIATION (2007); egd (01/24/2016); and Colonoscopy (02/23). Family History: His family history includes Alcohol abuse in his father; Hypertension in his daughter and s on; Other (see comment) in his daughter, father, and another family member; Stroke in his fa ther and mother. Social History: He reports that he quit smoking about 7 years ago. His smoking use included Cigarettes and Pipe. He has a 6.00 pack-year smoking history. He has never used smokeless tobacco. He repor ts that he does not drink alcohol or use drugs. Allergies Allergen Reactions Ipratropium Boss Hfa Other (See Comments) Reaction: Cough Penicillins Medications: Outpatient Encounter Prescriptions as of 08/31/2017 Medication Sig Dispense Refill albuterol (PROAIR HFA) 90 mcg/puff inhaler Inhale 2 puffs into the lungs every 6 hours as needed for Wheezing or Shortness of Breath. 1 Inhaler 11 amLODIPine (NORVASC) 5 mg tablet Take one tablet by mouth once daily. Calcium Carb-Cholecalciferol (CALCIUM-VITAMIN D3) 600-400 MG-UNIT TABS Take 1 tablet by mouth Daily. Taking 800 IU vitamin d [facility] LUTEIN PO Take by mouth. docusate sodium (COLACE) 100 mg capsule Take by mouth. ferrous sulfate 325 mg tablet Take 325 mg by mouth daily (with breakfast). fluocinonide (LIDEX) 0.05 % external solution 0 fluticasone-vilanterol (BREO ELLIPTA) 100-25 mcg/puff inhaler Inhale 1 puff into the justice ngs Daily. 1 each 11 HYDROcodone-acetaminophen (NORCO) 10-325 mg per tablet Take 1 tablet by mouth every 6 h ours as needed. ipratropium (ATROVENT HFA) 17 mcg/puff inhaler Inhale 2 puffs into the lungs every 6 ho urs as needed for Wheezing (or shortness of breath). 1 Inhaler 2 ketoconazole (NIZORAL) 2% shampoo 1 leuprolide (LUPRON DEPOT, 4-MONTH,) 30 mg injection Inject 30 mg into the muscle Every 4 months. levoFLOXacin (LEVAQUIN) 500 mg tablet TK 1 T PO QD 0 Multiple Vitamins-Minerals (OCUVITE EYE + MULTI) TABS Take 1 tablet by mouth Daily. oxyCODONE (ROXICODONE) 5 mg tablet Take by mouth. oxygen Inhale 2 L into the lungs nightly. pantoprazole (PROTONIX) 40 mg tablet Take 1 tablet by mouth Daily. 0 polyethylene glycol (MIRALAX) packet Take 17 g by mouth Daily. Respiratory Therapy Supplies [facility] [place] Please provide an O2 concentrator while Diego is visiti for nocturnal O2 at 2 l/m. Dx: COPD, Nocturnal hypoxemia 1 each 0 sucralfate (CARAFATE) 1 g tablet Take 1 g by mouth 4 times daily. tamsulosin (FLOMAX) 0.4 mg CAPS TAKE TWO CAPSULES BY MOUTH EVERY DAY NEEDED 60 capsu le 3 temazepam (RESTORIL) 15 mg capsule Take by mouth. triamcinolone (KENALOG) 0.1% cream ZAMZAM EXT AA BID FOR 2 TO 4 WKS 1 venlafaxine (EFFEXOR XR) 37.5 mg 24 hr capsule Take 37.5 mg by mouth Daily. zolpidem (AMBIEN) 5 mg tablet Take 5 mg by mouth nightly as needed. SLEEP No facility-administered encounter medications on file as of 08/31/2017. IPSS (International Prostate Symptom Score) 0=0 - Not at All 1=1 - Less than 1 in 5 times 2=2 - Less than half the time 3=3 - About half the time 4=4 - More than half the time 5=5 - Almost alwyas IPSS (INTERNATIONAL PROSTATE SYMPTOM SCORE) 08/31/2017 1. Incomplete Emptying - How often have you had the sensation of not emptying your bladder? 2 2. Frequency - How often have you had to urinate less than every two hours? 3 3. Intermittency - How often have you found you stopped and started again several times whe n you urinated? 3 4. Urgency - How often have you found it difficult to postpone urination? 2 5. Weak Stream - How often have you had a weak urinary stream? 3 6. Straining - How often have you had to strain to start urination? 2 7. Nocturia - How many times did you typically get up at night to urinate? 2 Total: 17 Quality of Life Due to Urinary Symptoms 0=0 - Delighted 1=1 - Pleased 2=2 - Mostly satisfied 3=3 - Mixed 4=4 - Mostly dissatisfied 5=5 - Unhappy 6=6 - Terrible QUALITY OF LIFE (URINARY) 08/31/2017 If you were to spend the rest of your life with your urinary condition just the way it is n ow, how would you feel about that? 2 PHYSICAL EXAM Vitals: BP 135/80 | Pulse 70 | Resp 18 | Ht 1.778 m (5' 10") | Wt 77.1 kg (169 lb 15.6 oz) | BMI 24.39 kg/m General: Awake, alert, in no acute distress. Speech is fluent. Appears to be stated age. Lungs: Normal respiratory effort. Abdomen: Soft, nontender. Extremities: Non-edematous. Neuro: Awake, alert, oriented. Psychiatric: Mood and affect are normal. Normal judgment. Skin: Warm and dry, no erythematous rash. DIAGNOSTIC DATA: Urinalysis is negative for blood, nitrites, and leukocyte esterase. Post void residual by bladder scan was 15 cc. Metabolic panel performed by [facility] on 08/26/2017: BUN was 18, and creatinine 0.86, within EGFR greater than 60. PSA 08/26/17 4.44 05/28/17 2.56 04/28/17 1.49 02/27/17 1.27 12/28/15 0.247 06/29/15 0.217 04/04/15 3.39 01/04/2015 5.65 09/25/14 4.57 11/2013 0.128 07/2013 5.38 10/2012 2.5 08/2011 0.0172 04/2011 1.32 06/2007 13.9 IMPRESSION: Stage T2c to T3 Gabino 4+3 = 7 adenocarcinoma the prostate, status post radia tion in 2007 with post radiation ad juvant ADT 1.5 years Post radiation PSA recurrence with int ermittent hormone ablation since 2013, last Lupron was given in December 2015, currently, with rising PSA Mild bladder outlet obstruction, impr elizabet with tamsulosin PLAN: Diego is showing no symptomatic signs of his known prostate cancer recurrence. His PS A is continuing to rise, with a doubling time of around 3 months. He would like to wait to start androgen deprivation therapy until his PSA is greater than 5. He is exhibiting no bon e pain, weight change, or any new bladder irritative or obstructive voiding symptoms. His u rine is clear, and he is emptying his bladder well. He will return in another 3 months, presumably, to start back on Lupron. He will start on Megace 20 mg by mouth 3 times a day prior to his next office visit. His labs will be perfor med at [facility]. Diego is instructed to resume his usual and customary care with his primary care provider. I asked Diego to notify me if there were any difficulties voiding, or UTI symptoms, or flank pain, or for any questions or concerns whatsoever. This document was generated in part using [email or web address] voice recognition software. Although ever y effort is made to edit the content, puppet developer errors may occur. Occasional wrong word or sound alike substitutions may have occurred due to the inherent limitations of the voice recognition software. Please read the chart carefully and recognize, using context, where th eloy substitutions may have occurred. documented in th is encounter Plan of Treatment +--------+---------+ + + + | Date | Type | Specialty | Care Team | Description | +--------+---------+ + + + | 03/13/ | Office | Urology | Jorje Rutledge | | | 2020 | Visit | | MD [address] | | | | | | [address] | | | | | | [place] [address] | | | | | | [phone] | | | | | | | | +--------+---------+ + + + + +------+--------+ + + | Name | Type | Priori | Associated Diagnoses | Order Schedule | | | | ty | | | + +------+--------+ + + | Basic Metabolic | Lab | Routin | Preventative | Expected: | | Panel | | e | health care | 11/22/2017, Expires: | | | | | Prostate cancer | 09/01/2018 | | | | | (HCC) | | + +------+--------+ + + | PSA, Diagnostic | Lab | Routin | Preventative | Expected: | | | | e | health care | 11/22/2017, Expires: | | | | | Prostate cancer | 09/01/2018 | | | | | (HCC) | | + +------+--------+ + + documented as of this encounter Procedures + +--------+ + + + | Procedure Name | Priori | Date/Time | Associated Diagnosis | Comments | | | ty | | | | + +--------+ + + + | POCT URINALYSIS, | Routin | 08/31/2017 | Prostate cancer | Results for this | | AUTO WITH CONF | e | 9:55 AM | (HCC) | procedure are in the | | | | PDT | | results section. | + +--------+ + + + | IMAGING REPORT - | | 08/31/2017 | | Results for this | | EXTERNAL SCAN | | 12:00 AM | | procedure are in the | | | | PDT | | results section. | + +--------+ + + + | LABS - EXTERNAL SCAN | | 08/26/2017 | | Results for this | | | | 12:00 AM | | procedure are in the | | | | PDT | | results section. | + +--------+ + + + documented in this encounter Results POCT Urinalysis Dipstick Automated (08/31/2017 9:55 AM PDT) + + + + + + | Component | Value | Ref Range | Performed | Pathologist | | | | | At | Signature | + + + + + + | Color, UA, | Yellow | Yellow, Light | | | | POC | | Yellow | | | + + + + + + | Clarity, | Clear | | | | | UA, POC | | | | | + + + + + + | Glucose, | Negative | Negative | | | | UA, POC | | | | | + + + + + + | Bilirubin, | Negative | Negative | | | | UA, POC | | | | | + + + + + + | Ketones, | Negative | Negative, 100 | | | | UA, POC | | mg/dL | | | + + + + + + | Specific | 1.015 | 1.001 - 1.030 | | | | [place], | | | | | | UA, POC | | | | | + + + + + + | Blood, UA, | Negative | Negative | | | | POC | | | | | + + + + + + | pH, UA, POC | 7.0 | 5.0, 6.0, 7.0, | | | | | | 8.0, 5.5, 6.5, | | | | | | 7.5 | | | + + + + + + | Protein, | Negative | Negative | | | | UA, POC | | | | | + + + + + + | Urobilinoge | 0.2 | 0.2, Negative, | | | | n, UA, POC | | Normal, < 0.2 | | | | | | mg/dL, 1 mg/dL, | | | | | | < 0.2 E.U./dl, | | | | | | 1.0 E.U./dL, | | | | | | 0.2 mg/dL | | | + + + + + + | Nitrite, | Negative | Negative | | | | UA, POC | | | | | + + + + + + | Leukocyte | Negative | Negative | | | | Esterase, | | | | | | UA, POC | | | | | + + + + + + | Reducing | | | | | | Substances, | | | | | | Urine | | | | | + + + + + + | Ictotest | | Negative | | | + + + + + + | Remark | | | | | + + + + + + + + | Specimen | + + | Urine | + + IMAGING REPORT - EXTERNAL SCAN (08/31/2017 12:00 AM PDT) + + + | Narrative | Performed At | + + + | Ordered by an | | | unspecified provider. | | + + + LABS - EXTERNAL SCAN (08/26/2017 12:00 AM PDT) + + + | Narrative | Performed At | + + + | Ordered by an | | | unspecified provider. | | + + + documented in this encounter Visit Diagnoses + + | Diagnosis | + + | Prostate cancer (HCC) - Primary Malignant neoplasm of prostate | + + | Preventative health care Routine general medical examination at a health care | | facility | + + documented in this encounter
--- OUTSIDE RECORDS SUMMARY | ~2019-02-24 | XMS | Encounter Summary ---
Demographics + + + | Address | [address] | | | [place] [address] | + + + | Home Phone | | + + + | Preferred Language | Unknown | + + + | Marital Status | | + + + | Presybeterian Affiliation | PRE | + + + | Race | White | + + + | Ethnic Group | Not or | + + + Author + + + | Author | [facility] | + + + | Organization | [facility] | + + + | Address | Unknown | + + + | Phone | Unavailable | + + + Support + + +---------+ + | Name | Relationship | Address | Phone | + + +---------+ + | Andrez Lucas | ECON | Unknown | Unavailable | + + +---------+ + Care Team Providers + +------+ + | Care Bureau Director Name | Role | Phone | + +------+ + | Parviz Brar DO | PCP | | + +------+ + Reason for Visit + + + | Reason | Comments | + + + | Nose bleed | | + + + Office Visit - E/M Services (Routine) +--------+--------+ + + + + | Status | Reason | Specialty | Diagnoses / | Referred By | Referred To | | | | | Procedures | Contact | Contact | +--------+--------+ + + + + | Closed | | Otolaryngolog | | Emergency | Ent | | | | y | | Dept Hrc | Laryngology | | | | | | [address] | [address] | | | | | | [address] | [address] | | | | | | [address] [facility] | [place], [place] | | | | | | Hospital | [address] | | | | | | [place], [place] | Phone: | | | | | | [address] | [phone] | | | | | | Phone: | Fax: | | | | | | [phone] | [phone] | +--------+--------+ + + + + Encounter Details +--------+---------+ + + + | Date | Type | Department | Care Team | Description | +--------+---------+ + + + | 06/20/ | Office | Otolaryngology | Desiree Easton, | Epistaxis (Primary | | 2012 | Visit | Laryngology Services | MD | Dx) | | | | at [facility] [address] | | | | | | [address], | | | | | | [place] [address] | | | | | | [phone] | | | +--------+---------+ + + + Social History + +-------+ [...] + + + | Blood Pressure | 129/80 | 06/20/2012 2:28 PM | | | | | PDT | | + + + + + | Pulse | 101 | 06/20/2012 2:28 PM | | | | | PDT | [...] + + + + | Weight | 68.9 kg (152 lb) | 06/20/2012 2:28 PM | | | | | PDT | | + + + + + | Height | - | - | | + + + + + | Body Mass Index | 20.61 | 06/11/2012 4:18 PM | | | | | PDT | | + + + + + documented in this encounter Patient Instructions Patient Instructions Elma Mckeon MA - 06/20/2012 2:27 PM PDTThank you for choosing [facility] Department of Otolaryngology for your health care needs. If you need to speak to an ENT physician after normal business hours, please call [phone] and ask to have the ENT phys davey electrical electronics engineer paged. No nose blowing for two weeks. Saline nasal spray, 2 sprays 3-4 times daily documented in this encounter Progress Notes Desiree Easton MD - 06/20/2012 2:21 PM PDTFormatting of this note might be different fr om the original. PATIENT: Diego Lucas [facility] MR#: [id number] : 1935 REQUESTING PROVIDER: No Referring Provider Per Patient NO REFERRING PROVIDER PER PT PRIMARY CARE PROVIDER: Parviz Brar DO CLINIC: [facility] CHIEF COMPLAINT: Chief Complaint Patient presents with Nose bleed HPI: Diego Lucas is a 76 y.o. male who presents to the [facility] with epistaxis. He had refractory epistaxis after IR embolization of his bila teral internal maxillary arteries on 10 June 2012. He subsequently had a right anterior an d posterior ethmoid ligation and right sphenopalatine artery ligation on 12 June 2012. He was discharged from the hospital on 14 June 2012 after having no further bleeding issues fo r 48 hours. Mr. Lucas returns for his first post-operative visit. He notes that he has had some oo zing from around the pack in the afternoons,but has not had bleeding. He does not taste or sense blood in the back of his throat. He did develop diarrhea 3 days after discharge. He still was tested and he was started on Flagyl. His diarrhea is improving, with only 2 loose stools daily. PMHx: Past Medical History Diagnosis Date Pneumonia COPD Gastroesophageal reflux Benign hypertrophy of prostate Unspecified essential hypertension SURGHx: Past Surgical History Procedure Date Back surgery SOCIAL Hx: History Social History Marital Status: Spouse Name: N/A Number of Children: N/A Years of Education: N/A Occupational History Not on file. Social History Main Topics Smoking status: Former Smoker Smokeless tobacco: Not on file Alcohol Use: No Drug Use: No Sexually Active: Not on file Other Topics Concern Not on file Social History Narrative No narrative on file FAMILY HX: Family History Problem Relation Non-contributory Neg Hx ALLERGIES: Allergies Allergen Reactions Paper First Aid Tape (Adhesive Tape) Hives and Rash MEDICATIONS: Current Outpatient Prescriptions Medication Sig amLODIPine 5 mg Oral tablet Take 5 mg by mouth once daily in the morning. Indications: HYPERTENSION ascorbic acid 250 mg Oral tablet Take 250 mg by mouth two times daily. aspirin chewable 81 mg Oral tablet, chewable Take 1 Tab by mouth once daily. DO NOT RES UME UNTIL CLEARED AT FOLLOW UP APPOINTMENT cephALEXin 500 mg Oral capsule Take 1 Cap by mouth every six hours for 6 days. Indicati ons: Infection prevention while nasal packing is in place cetirizine 5 mg Oral tablet Take 5 mg by mouth two times daily. docusate sodium 100 mg Oral capsule Take 100 mg by mouth twice daily as needed. ferrous sulfate 325 mg (65 mg iron) Oral tablet Take 325 mg by mouth two times daily. fluticasone 220 mcg/actuation Inhalation Aerosol (Aero) Inhale 1 Puff two times daily. ipratropium 17 mcg/actuation Inhalation HFA Aerosol Inhaler Inhale 2 Puffs four times d aily as needed. loratadine 10 mg Oral tablet Take 10 mg by mouth once daily. magnesium hydroxide 400 mg/5 mL Oral Suspension Take 30 mL by mouth once daily as neede d. omeprazole 20 mg Oral capsule,delayed release(DR/EC) Take 20 mg by mouth once daily in the morning. Indications: GASTROESOPHAGEAL REFLUX oxyCODONE, immediate release, 5 mg Oral tablet Take 1 Tab by mouth every six hours as n eeded for severe pain. oxymetazoline 0.05 % Nasal Aerosol, [place] Instill 2 Sprays into each nostril every six hours as needed (Epistaxis). Use for only 3 days. polyethylene glycol 17 gram/dose Oral Powder Take 17 g by mouth once daily. sodium chloride 0.65 % Nasal Aerosol, [place] Instill 2 Sprays in nose every two hours wh ile awake. tamsulosin 0.4 mg Oral capsule,extended release 24hr Take 0.4 mg by mouth once daily in the evening. Indications: BENIGN PROSTATIC HYPERTROPHY temazepam 15 mg Oral capsule Take 15 mg by mouth once daily at bedtime as needed. EXAMINATION: Blood pressure 129/80, pulse 101, weight 68.947 kg (152 lb). GEN: At the time of my exam, the patient was alert and oriented and in no apparent distress. NEURO: Cranial nerves two through twelve were intact and symmetric. No head or extremity tremor were noted. EYE: No scleral icterus. Pupils round and reactive. Extraocular eye movements intact. Visual acuity intact to finger counting. Peterson incision Healing well. EAR: Pinna normal. External auditory canals free of significant cerumen or debris. Tympanic membranes translucent with out effusion, retraction or perforation. NOSE: Left nasal passage with secretions. No evidence of bleeding. Nasal Pack in place on right. ORAL CAVITY: Mucosa pink and moist. No mucosal masses or lesions. Dentition in poor repair. Tongue mobile. OROPHARYNX: Mucosa pink and moist. No mucosal masses or lesions. Palate elevation symmetric. No evidence of blood in oropharynx. NECK: Neck soft and supple. No appreciable lymphadenopathy. Parotid bed without palpable masses. Submandibular glands symmetric and without mass. Laryngeal landmarks palpable and with normal crepitus. Thyroid without obvious nodules. Thyroid elevates with deglutition. LUNGS: Lungs clear to auscultation bilaterally. No rhonchi or wheezes. HEART: Rhythm regular. No appreciable murmurs, rubs or gallops. NASAL ENDOSCOPY: Left nasal passage with some thick, mucoid secretions. Nasal mucosa appe ars healthy. No polyposis. Nasopharynx clear. Packs removed from right nasal passage. Th ere is abrasion of the mucosa along the middle and inferior turbinates and the septum. Thic k secretions were suction. No active bleeding. Middle turbinate lateralized. Minimal pack ing material suction from middle meatus. ASSESSMENT: Epistaxis s/p bilateral VANIA ligation and right anterior/posterior ethmoid and sphenopalatine ligation PLAN: 1. Patient is doing well. I have recommended that he use [place] or a formulary equiv alent, 2 sprays four times daily. He should use supplemental humidity with his oxygen whene malgorzata possible. He is to refrain from nose blowing or straining for the next two weeks. 2. If there are any concerns for recurrent bleeding, Mr. Lucas should contact us to ar range evaluation. After hours, weekends or holidays he should go to the emergency department . 3. Mr. Lucas expects to be discharged from the [facility] next week. He plans to re turn to [place] with his after this. I would be happy to see him back in two weeks f or a check up if he likes, otherwise he may follow up as needed. DESIREE EASTON MD documented in this e ncounter Plan of Treatment Not on filedocumented as of this encounter Procedures + +--------+ + + + | Procedure Name | Priori | Date/Time | Associated Diagnosis | Comments | | | ty | | | | + +--------+ + + + | NM NASAL/SINUS | Routin | 06/20/2012 | Epistaxis | | | Dulce HUTCHINS/TOSIN | e | 3:21 PM | | | | NASAL HEM | | PDT | | | + +--------+ + + + documented in this encounter Visit Diagnoses + + | Diagnosis | + + | Epistaxis - Primary | + + documented in this encounter"
--- OUTSIDE RECORDS SUMMARY | ~2019-02-24 | XMS | Encounter Summary ---
Demographics + + + | Address | [address] | | | [place] [address] | + + + | Home Phone | | + + + | Preferred Language | Unknown | + + + | Marital Status | | + + + | Advent Affiliation | [id number] | + + + | Race | Unknown | + + + | Ethnic Group | Unknown | + + + Author + + + | Author | Merged With [facility] | | | and [place] | + + + | Organization | Merged With [facility] | | | and [place] [...] Team Providers + +------+ + | Care State Fire Marshal Name | Role | Phone | + +------+ + | Parviz Brar DO | PCP | | + +------+ + Reason for Referral Diagnostic/Screening (Routine) +--------+--------+ + + + + | Status | Reason | Specialty | Diagnoses / | Referred By | Referred To | | | | | Procedures | Contact | Contact | +--------+--------+ + + + + | Closed | | Radiology | Diagnoses | | [address] | | | | | Abnormal | [place], | [address] | | | | | chest CT | Becca B, | [place], | | | | | Procedures | MD [address] | [place] [address] | | | | | CT Chest wo | [address] | Phone: | | | | | Contrast | [place], | [phone] | | | | | | [place] [address] | Fax: | | | | | | | [phone] | +--------+--------+ + + + + Reason for Visit +--------+ + | Reason | Comments | +--------+ + | Other | abnormal chest CT | +--------+ + Encounter Details +--------+---------+ + + + | Date | Type | Department | Care Team | Description | +--------+---------+ + + + | 10/27/ | Office | [facility] | [place], | Abnormal chest CT | | 2012 | Visit | PULMONARY [address] | Becca Segura MD | (Primary Dx); COPD | | | | [place], | | (chronic obstructive | | | | [place] [address] | | pulmonary disease) | | | | [phone] | | ([facility]); Nocturnal | | | | | | hypoxemia | +--------+---------+ + + + Social History [...] + + + | Blood Pressure | 106/68 | 10/27/2012 2:17 PM | | | | | PDT | | + + + + + | Pulse | 74 | 10/27/2012 2:17 PM | | | | | PDT | | + + + + + | Temperature | - | - | | + + + + + | Respiratory Rate | - | - | | + + + + + | Oxygen Saturation | 94% | 10/27/2012 2:17 PM | room air | | | | PDT | | + + + + + | Inhaled Oxygen | - | - | | | Concentration | | | | + + + + + | Weight | 74 kg (163 lb 1.6 | 10/27/2012 2:17 PM | | | | oz) | PDT | | + + + + + | Height | - | - | | + + + + + | Body Mass Index | 22.75 | 09/23/2010 12:00 AM | | | | | PDT | | + + + + + documented in this encounter Patient Instructions Patient Instructions Becca Castro MD - 10/27/2012 3:11 PM PDTI will send in a pr escription for an antibiotic tonight or tomorrow, but will try to get records first. Electro nically signed by Becca Castro MD at 10/27/2012 3:13 PM PDT documented in this encounter Progress Notes Becca Castro MD - 10/27/2012 2:52 PM PDTFormatting of this note might be differe nt from the original. Pulmonary Follow Up Note MD [facility] [address] [place], [address] [facility] Diego Lucas is a 76 y.o. male patient of Parviz Brar here today for follow up of COPD. At their last visit, we ordered a follow up chest CT. Since their last visit he feels like he has been doing okay. He has not had any acute illnesses. He is currently on a regimen of Flovent and Atrovent. He does feel like this medication regimen is working for them. They r eturn today for routine follow up. He is using the Atrovent twice a day scheduled. Currently they are able to walk 8 blocks at their own pace on level ground. He is not exerc ising regularly. He is able to do his own bathing and dressing, cooking and cleaning. He als o does his own yard work. He does cough chronically, and more than last year, but not any more recently, and does pro duce mucous. The mucous is yellow, with occasional "dark specks". He has not had hemoptysis. He has been evaluated for nocturnal oxygen and does use it. They are currently on 2 LPM at night. He reports good compliance. He was last checked 3 years ago. Past Medical History Past Medical History Diagnosis Date COPD (chronic obstructive pulmonary disease) Peptic ulcer disease with upper GI bleed Benign prostatic hypertrophy Prostate cancer s/p radiation treatment and on hormonal treatment with Lupron Osteoarthritis Heartburn Pulmonary nodules Cataracts, bilateral Pneumonia 05/[address] [facility] Shoulder fracture 02/2012 Foot fracture 02/2012 Past Surgical History Past Surgical History Procedure Date Pancreas surgery 1972 Appendectomy Cyst removal from back Nasal hemorrhage control 05/2012 Cataract removal with implant 11/2011 Right Social History: History Social History Marital Status: [...] home. No other animal exposures.Grew up in [place]. Then lived in [place]. Then move d to [place]. In the service lived in [place] and [place]. No recent travel. Allergies: Allergies Allergen Reactions Adhesive & Tape Paper tapes Medications: Outpatient Encounter Prescriptions as of 10/27/2012 Medication Status Sig Dispense Refill amLODIPine (NORVASC) 5 mg tablet Active Take one tablet by mouth once daily. Ascorbic Acid (VITAMIN C) 250 MG tablet Active Take 250 mg by mouth Daily. aspirin (ASPIRIN LOW DOSE) 81 MG tablet Active Take 81 mg by mouth Daily. CETIRIZINE-PSEUDOEPHEDRINE ER PO Active Take by mouth Twice daily as needed. ferrous sulfate 325 mg tablet Active Take 325 mg by mouth daily (with breakfast). fluticasone (FLOVENT HFA) 220 mcg/puff inhaler Active Inhale 1 puff into the lungs 2 ti mes daily. FLUTICASONE-SALMETEROL IN Active 1 puff inhaled twice daily Hydrocodone-Acetaminophen 10-300 MG TABS Active as needed for pain IBUPROFEN Active Take by mouth as needed. ipratropium (ATROVENT HFA) 17 mcg/puff inhaler Active Inhale 2 puffs into the lungs 4 t imes daily. omeprazole (PRILOSEC OTC) 20 mg tablet Active Take 20 mg by mouth Daily. oxygen Active Inhale 2 L into the lungs nightly. tamsulosin (FLOMAX) 0.4 mg CAPS Active Take 0.4 mg by mouth daily (after breakfast). venlafaxine (EFFEXOR XR) 150 mg 24 hr capsule Active Take 150 mg by mouth Daily. VENTOLIN HFA 108 (90 BASE) MCG/ACT inhaler Active INHALE 2 PUFFS EVERY 4 HOURS NEEDE D FOR SHORTNESS OF BREATH 18 g 11 Review of Systems Constitutional: Denies fever, chills, sweats. He has regained about 8 pounds since the pne umonia. Sleep: Denies difficulty sleeping, excessive snoring, and daytime sleepiness. Eyes: Denies vision change and eye irritation. ENT: Denies earache, decreased hearing, nasal congestion, nosebleeds, sore throat, and merline rseness. Resp: See HPI. CV: Denies chest pain, palpitations, syncope, and peripheral edema. GI: Denies heartburn, nausea, vomiting, and abdominal pain. : Denies difficulty emptying bladder. Nocturia once or twice a night. Objective BP 106/68 | Pulse 74 | Wt 73.982 kg (163 lb 1.6 oz) | SpO2 94% RA General Appearance: Alert, cooperative, no distress, appears stated age Head: Normocephalic, without obvious abnormality, atraumatic Eyes: PERRL, conjunctiva clear, no scleral icterus, EOM's intact Ears: Normal TM's, external auditory canals, diminished acuity Nose: Nares normal, septum midline, mucosa normal Mouth: No oral lesions or exudate Neck: Supple, symmetrical, no adenopathy Lungs: No accessory muscle use, breath sounds are diminished bilaterally with prolongatio n of the expiratory phase, no wheezes, crackles or rhonchi Chest Wall: No deformity Heart: Regular rate and rhythm, no murmur, rub or gallop Abdomen: Soft, non-tender, non-distended Extremities: No cyanosis, clubbing, or edema Pulses: Radial pulses 1+ and symmetric Skin: Warm and dry Lymph nodes: Cervical and supraclavicular nodes normal Data: Chest CT scan was done prior to clinic today and was reviewed and interpreted in clinic tofletcher madrigal. It shows marked decrease in left lower lobe mass like consolidation. New nodularity in t he left lower lobe, Increased linear consolidations in the right lower lobe. Immunization History Administered Date(s) Administered Pneumococcal (Adult) 10/21/2010 Assessment 1. Abnormal chest CT - Suspect infectious/inflammatory changes. I worry about some residual untreated infection from his prior pneumonia. I will try to get prior records from [facility] [place], but they have sent us little information from his admit there. Otherwise, we will give and empiric course of antibiotics and repeat his chest CT scan in 3 months, kd laguerre radiologist read. 2. COPD (chronic obstructive pulmonary disease) - Stable on current medications. 3. 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 Especially in light of his recent severe illness, I would recommend repeating oximetry on 2L. Plan 1.Repeat overnight oximetry on 2L. 2.Empiric course of antibiotics. 3.Repeat chest CT in 3 months. 4.Continue Flovent and Atrovent. He was advised to call if new pulmonary symptoms were to develop. Return to clinic in 3 months with repeat chest CT scan, or sooner with concerns. CC: Parviz Brar Portions of this report were transcribed using voice recognition software. Every effort wa s made to ensure accuracy; however, inadvertent computerized music worker errors may be pre sent. documented in t his encounter Plan of Treatment +--------+---------+ + + + | Date | Type | Specialty | Care Team | Description | +--------+---------+ + + + | 03/13/ | Office | Urology | Jorje Rutledge | | | 2020 | Visit | | MD [address] | | | | | | [address] | | | | | | [place] [address] | | | | | | [phone] | | | | | | | | +--------+---------+ + + + + + +--------+ + + | Name | Type | Priori | Associated Diagnoses | Order Schedule | | | | ty | | | + + +--------+ + + | Pulse oximetry, | Respiratory | Routin | COPD (chronic | Expected: | | overnight study | Care | e | obstructive | 10/28/2012, Expires: | | | | | pulmonary disease) | 10/28/2013 | | | | | ([facility]) Nocturnal | | | | | | hypoxemia | | + + +--------+ + + documented as of this encounter Results CT Chest wo Contrast (01/26/2013 3:44 PM PST) + + | Specimen | + + | | + + + + + | Narrative | Performed At | + + + | [facility] | [place] | | [address] | [place] | | [ rep ct [address]] [ rep ct [facility] | | st zip] Signed | - IMAGING | | | | | Patient Name: DIEGO LUCAS Physician: | | | E. : 1935 Age: 77 Sex: M Unit #: [id number] | | | Exam Date: 01/26/13 Location: [facility] | | | Report #: [id number] Page: | | | %(RAD)RES..mtdd.print.filter("pg") of %(RAD) | | | RES..mtdd.print.filter("tpg") | | | | | | Accession Number: [id number] | | | CT CHEST WITHOUT CONTRAST CLINICAL HISTORY: FOLLOW UP | | | ABNORMAL CHEST CT. COMPARISON: 10/27/2012, 09/06/2012, | | | 09/08/2011 FINDINGS: Stable pleural parenchymal | | | irregularity in the anterior left upper lobe. This is very linear | | | and scar-like. Along the course of this abnormality there is a | | | calcified granuloma. There is an area of pleural irregularity in | | | the lingula which is unchanged. There is a stable small, sub-4 mm, | | | nodule near the diaphragm laterally in the left lower lobe. There | | | are linear areas of pleural irregularity and scarring more | | | posteriorly and inferiorly in the left lower lobe. The 9.7 mm area | | | of nodularity medially in the left lower lobe has resolved. Two | | | areas of sub-3 mm nodularity posteriorly in the left lower lobe | | | today seen on image 91 of series 4 were probably obscured on the prior | | | study. They are unchanged dating to at least May of 2011. | | | Slightly higher and more medially in the left lower lobe there is | | | a pleural based nodule which previously measured 7.3 mm on the most | | | recent comparison. It is about 7 mm on today's exam. It is | | | unchanged. Pleural based nodule in the right middle lobe persists | | | and is not significantly changed. Persistent scarring in the right | | | lower lobe. There is mucous plugging in several segmental branches | | | of the posteromedial right lower lobe. Pleural based irregularity | | | along the minor fissure is unchanged. There is a background of | | | severe predominately centrilobular emphysematous change. The | | | mediastinum is stable. It does contain lymph nodes which are not | | | definitively greater than 1 cm in size in short axis. Ascending | | | aorta is prominent measuring just under 4 cm. There is enlargement | | | of the main pulmonary artery. No cardiac chamber enlargement. | | | No pericardial thickening. There is a hiatal hernia. | | | UPPER ABDOMEN: There are hypodensities in the right lobe of the | | | liver that are too small to characterize. These have been present | | | dating at least to May of 2011. There are also at least 2 in the | | | left lobe. There are no suspicious bone lesions. | | | IMPRESSION: 1. THERE ARE NODULES BILATERALLY. ALL THOSE | | | IDENTIFIED HAVE BEEN SURVEILLED AT LEAST DATING TO August, | | | AND ARE NOT ENLARGED OR SIGNIFICANTLY CHANGED. THERE ARE AREAS OF | | | PLEURAL PARENCHYMAL IRREGULARITY IN THE ANTERIOR LEFT UPPER LOBE | | | CONSISTENT WITH SCARRING FROM RESOLVED PNEUMONIA. SIMILAR CHANGES | | | ARE SEEN IN THE POSTERIOR RIGHT LOWER LOBE. THERE HAS BEEN RESOLUTION | | | OF NODULAR AREAS OF PNEUMONIA IN THE LEFT LOWER LOBE WITH SOME | | | RESIDUAL LINEAR SCARS. 2. THERE ARE NO NEW NODULES. | | | 3. THERE IS A BACKGROUND OF SEVERE EMPHYSEMATOUS CHANGE. | | | 4. THERE IS ENLARGEMENT OF THE MAIN PULMONARY ARTERY | | | SUGGESTING UNDERLYING PULMONARY ARTERIAL HYPERTENSION. | | | Dictated Date/Time: 01/26/2013 15:44 Transcribed Date/Time: | | | 01/26/2013 15:57 Investment Director: AndrewALTON | | | <<Signature on File>> | | | Froylan | | | Olivia Rodriguez MD01/26/131 <Electronically signed by Froylan Wall | | | Michael DONG> Froylan Rodriguez MD 01/26/13 1544 | | | Investment Director: [employer] [email or web address]/05/13 1557 | | | Becca Castro MD | | + + + + + + + + | Performing | Address | City/State/Zipcode | Phone Number | | Organization | | | | + + + + + | [facility] | [address] | [place] | [phone] | | [facility] | | [address] | | | - IMAGING | | | | + + + + + documented in this encounter Visit Diagnoses + + | Diagnosis | + + | Abnormal chest CT - Primary Nonspecific (abnormal) findings on radiological and other | | examination of other intrathoracic organs | + + | COPD (chronic obstructive pulmonary disease) (HCC) Chronic airway obstruction, not | | elsewhere classified | + + | Nocturnal hypoxemia Hypoxemia | + + documented in this encounter
--- OUTSIDE RECORDS SUMMARY | ~2019-02-24 | XMS | Encounter Summary ---
Demographics + + + | Address | [address] | | | [place] [address] | + + + | Home Phone | | + + + | Preferred Language | Unknown | + + + | Marital Status | | + + + | Cheondoism Affiliation | 1076 | + + + | Race | Unknown | + + + | Ethnic Group | Unknown | + + + Author + + + | Author | [facility] | | | and [place] | + + + | Organization | [facility] | | | and [place] [...] Team Providers + +------+ + | Care Non Clinical Advisor Name | Role | Phone | + [...] Description | +--------+---------+ + + + | 11/29/ | Office | [facility] | Jorje Rutledge | Prostate cancer | | 2018 | Visit | [address] | [address] | ([facility]) (Primary Dx); | | | | [place] | [address] [facility] | Preventative health | | | | [address] | [place] [address] | care | | | | [phone] | [phone] | | | | | | | [...] + + + | Blood Pressure | 124/72 | 11/29/2017 10:01 AM | | | | | PDT | | + + + + + | Pulse | 70 | 11/29/2017 10:01 AM | | | | | PDT | | + + + + + | Temperature | - | - | | + + + + + | Respiratory Rate | 18 | 11/29/2017 10:01 AM | | | | | PDT | | + + + + + | Oxygen Saturation | - | - | | + + + + + | Inhaled Oxygen | - | - | | | Concentration | | | | + + + + + | Weight | 79.7 kg (175 lb 11.3 | 11/29/2017 10:01 AM | | | | oz) | PDT | | + + + + + | Height | 177.8 cm (5' 10") | 11/29/2017 10:01 AM | | | | | PDT | | + + + + + | Body Mass Index | 25.21 | 11/29/2017 10:01 AM | | | | | PDT | | + + + + + documented in this encounter Progress Notes Dina Garcia RN - 11/29/2017 10:30 AM PDT Administrations This Visit leuprolide (LUPRON DEPOT-6 MONTH) injection 45 mg Admin Date 11/29/2017 Action Given Dose 45 mg Route Intramuscular Administered By Dina Garcia RN Patient tolerated injection well.Lupron 22.5 mg (3 month formula) is not available (order d elayed). Dr Rutledge changed order............................................Dina Garcia RN on 11/29/17 at 10:44 Jorje Whitfield nd, MD - 11/29/2017 10:30 AM PDT . Diego is a 82 y.o. male patient of Jason Read MD being seen today for a follow up fo r prostate cancer. He has a history of T2c or T3 adenocarcinoma the prostate, [place] 4+3 = 7, PSA 13.9,whic h was diagnosed in June 2007. He received radiation therapy by Dr. Garza, with post radiation adjuvant Lupron administrat ion for approximately 1-1/2 years. His PSA soy was 0.01 at that time. He did have a post radiation PSA recurrence with a slow doubling time, and in July 2013, hi s PSA was 5.38. He was started on Lupron, from mid 2013 until December 31, 2015. He tolerat ed the Lupron with significant hot flashes, but no other symptomatic difficulties. Megace was tried for hot flashes, but unfortunately did not seem to alleviate his symptoms very much. He is now 23 months since his last Lupron administration, and his PSA is rising again, curr ently to 7.17. He is not having any new irritative or obstructive voiding symptoms. His we ight is stable, and his energy is good. He is not having any bone pain. Since his PSA is currently between 5 and 10, we discussed reinstituting Lupron. He is agre ajit, and I have given him a 6 month Lupron injection today, and given him a prescription f or Megace 20 mg by mouth up to 3 times a day for hot flashes. He will return in May 2018, with updated labs at that time. Past Medical History He has a past medical history of Actinic keratosis of scalp; Anemia; Benign prostatic hyper trophy; Bereavement without complication; C. difficile enteritis (2012); CAD (coronary arter y disease); Cataracts, bilateral; Clavicle fracture; COPD (chronic obstructive pulmonary dis ease) ([facility]); Depression; Dermatophytosis tinea capitis; Diverticulosis (01/2015); Essential hypertension; Foot fracture (02/2012); Gastritis (01/2015); GI bleed (01/2015); Heart murmur; Heartburn; Hiatal hernia (01/2015); History of rectal bleeding; Hypoxia; Insomnia; Iron def iciency anemia; Kidney stone (2004); Lumbar disc herniation; Migraines; Mood disorder ([facility]) of unknown (axis III) etiology; Nocturnal hypoxia; Osteoarthritis; Peptic ulcer disease; Pne umonia (05/2012); Prostate cancer ([facility]) (2007); Pulmonary nodules; Seborrheic dermatitis of s calp; Shoulder fracture (02/2012); Supplemental oxygen dependent; SVT (supraventricular tachy cardia) ([facility]) (01/2014); TIA (transient ischemic attack); and Vasovagal [...] He reports that he quit smoking about 8 years ago. His smoking use included Cigarettes and Pipe. He has a 6.00 pack-year smoking history. He has never used smokeless tobacco. He repor ts that he does not drink alcohol or use drugs. Allergies Allergen Reactions Penicillins Medications: Outpatient Encounter Prescriptions as of 11/29/2017 Medication Sig Dispense Refill albuterol (PROAIR HFA) [...] 1 T PO QD 0 Multiple Vitamins-Minerals (ICAPS PO) I-Caps Multiple Vitamins-Minerals (OCUVITE EYE + MULTI) TABS Take 1 tablet by mouth Daily. oxyCODONE (ROXICODONE) 5 mg tablet Take by mouth. oxygen Inhale 2 L into the lungs nightly. pantoprazole (PROTONIX) 20 mg tablet pantoprazole (PROTONIX) 40 mg tablet Take 1 tablet by mouth Daily. 0 polyethylene glycol (MIRALAX) packet Take 17 g by mouth Daily. Respiratory Therapy Supplies [facility] Please provide an O2 concentrator while Diego is visiti juan for nocturnal O2 at 2 l/m. Dx: COPD, Nocturnal hypoxemia 1 each 0 sucralfate (CARAFATE) 1 g tablet sucralfate 1 gram tablet tamsulosin (FLOMAX) 0.4 mg CAPS TAKE TWO CAPSULES BY MOUTH EVERY DAY NEEDED 60 capsu le 3 temazepam (RESTORIL) 15 mg capsule Take by mouth. triamcinolone (KENALOG) 0.1% cream ZAMZAM EXT AA BID FOR 2 TO 4 WKS 1 UNABLE TO FIND Breo Ellipta 100 mcg-25 mcg/dose powder for inhalation venlafaxine (EFFEXOR XR) 37.5 mg 24 hr capsule Take 37.5 mg by mouth Daily. zolpidem (AMBIEN) 5 mg tablet Take 5 mg by mouth nightly as needed. SLEEP No facility-administered encounter medications on file as of 11/29/2017. PHYSICAL EXAM Vitals: BP 124/72 | Pulse 70 | Resp 18 | Ht 1.778 m (5' 10") | Wt 79.7 kg (175 lb 11.3 oz) | BMI 25.21 kg/m General: Awake, alert, in no acute distress. Speech is fluent. Appears to be stated age. Lungs: Normal respiratory effort. Abdomen: Soft, nontender. Extremities: Non-edematous. Neuro: Awake, alert, oriented. Psychiatric: Mood and affect are normal. Normal judgment. Skin: Warm and dry, no erythematous rash. Genitalia: No lesion. Normal in appearance. Rectal: No mass, normal sphincter tone. Prostate gland is palpably benign. Prostate gland volume is estimated at 10 gm. Lateral sulci are intact. Seminal vesicles are not palpably enlarged and are nontender. There is no prostatic induration, nodularity, irregularity, or asymmetry. DIAGNOSTIC DATA: Urinalysis is negative for blood, nitrites, leukocyte esterase. Lab Results Component Value Date CREA 0.94 03/19/2014 BUN 16 03/19/2014 NA 139 03/19/2014 K 3.9 03/19/2014 CL 109 03/19/2014 CO2 24 03/19/2014 Lab Results Component Value Date WBC 5.4 03/19/2014 HGB 11.0 (L) 03/19/2014 HCT 33.7 (L) 03/19/2014 MCV 86.0 03/19/2014 PLT 324 03/19/2014 PSA Date Results 11/25/17 7.17 [facility] 08/26/17 4.44 05/28/17 2.56 04/28/17 1.49 02/27/17 1.27 12/28/15 0.247 06/29/15 0.217 04/04/15 3.39 01/04/2015 5.65 09/25/14 4.57 11/2013 0.128 07/2013 5.38 10/2012 2.5 08/2011 0.0172 04/2011 1.32 06/2007 13.9 IMPRESSION: Stage T2c to T3 Gabino 4+3 = 7 adenocarcinoma the prostate, status post radi ation in 2007 with post radiation ad juvant ADT 1.5 years Post radiation PSA recurrence with int ermittent hormone ablation since 2013, last Lupron was given in December 2015, currently,with rising PSA Mild bladder outlet obstruction, impr elizabet with tamsulosin PLAN: Diego was given an injection of Lupron 45 mg this morning. This should last for 6 mon ths. I've also written for Megace 20 mg by mouth up to 3 times a day as needed for hot flas hes. He will return in May 2018 with updated lab tests. In the interim, I've asked him t o call should he develop any new irritative or obstructive voiding symptoms, bone pain, or a ny significant change in weight. Diego is instructed to resume his usual and customary care with his primary care provider. I asked Diego to notify me if there were any difficulties voiding, or UTI symptoms, or flank pain, or for any questions or concerns whatsoever. This document was generated in part using [employer] voice recognition software. Although ever y effort is made to edit the content, steak tenderizer machine errors may occur. Occasional wrong word or sound alike substitutions may have occurred due to the inherent limitations of the voice recognition software. Please read the chart carefully and recognize, using context, where th eloy substitutions may have occurred.Electronically signed by Jorje Rutledge MD at 1009/2017 11:37 AM PDTdocumented in this encounter Plan of Treatment +--------+---------+ + + + | Date | Type | Specialty | Care Team | Description | +--------+---------+ + + + | 03/13/ | Office | Urology | Jorje Rutledge | | | 2020 | Visit | | [address] | | | | | | [address] | | | | | | [place] [address] | | | | | | [phone] | | | | | | | | +--------+---------+ + + + + +------+--------+ + + | Name | Type | Priori | Associated Diagnoses | Order Schedule | | | | ty | | | + +------+--------+ + + | PSA, Diagnostic | Lab | Routin | Preventative | Expected: | | | | e | health care | 02/23/2018, Expires: | | | | | Prostate cancer | 11/30/2018 | | | | | (HCC) | | + +------+--------+ + + | Comprehensive | Lab | Routin | Preventative | Expected: | | Metabolic Panel | | e | health care | 02/23/2018, Expires: | | | | | Prostate cancer | 11/29/2018 | | | | | (HCC) | | + +------+--------+ + + documented as of this encounter Procedures + +--------+ + + + | Procedure Name | Priori | Date/Time | Associated Diagnosis | Comments | | | ty | | | | + +--------+ + + + | POCT URINALYSIS, | Routin | 11/29/2017 | Prostate cancer | Results for this | | AUTO WITH CONF | e | 10:05 AM | (HCC) | procedure are in the | | | | PDT | | results section. | + +--------+ + + + documented in this encounter Results POCT Urinalysis Dipstick Automated (11/29/2017 10:05 AM PDT) + + + + + [...] + + + + | Specific | 1.010 | 1.001 - 1.030 | | | | [place], | | | | | | UA, POC | | | | | + + + + + + | Blood, UA, | Negative | Negative | | | | POC | | | | | + + + + + + | pH, UA, POC | 7.5 | 5.0, 6.0, 7.0, | | | [...] + + | Urine | + + documented in this encounter Visit Diagnoses + + | Diagnosis | + + | Prostate cancer (HCC) - Primary Malignant neoplasm of prostate | + + | Preventative health care Routine general medical examination at [facility] | | facility | + + documented in this encounter Administered Medications + +--------+ +-------+------+ + | Medication Order | MAR | Action | Dose | Rate | Site | | | Action | Date | | | | + +--------+ +-------+------+ + | leuprolide (LUPRON DEPOT-6 | Given | 11/30/19 | 45 mg | | Glut-Rig | | MONTH) injection 45 mg 45 mg, | | 18 10:35 | | | ht | | Intramuscular, ONCE, 11/29/17 | | AM PDT | | | | | at 1100, For 1 dose, | | | | | | | Chemotherapy: Use appropriate | | | | | | | handling precautions., | | | | | | + +--------+ +-------+------+ + +---+---+ | | | +---+---+ documented in this encounter
--- OUTSIDE RECORDS SUMMARY | ~2019-02-24 | XMS | Encounter Summary ---
Demographics + + + | Address | [address] | | | [place] [address] | + + + | Home Phone | | + + + | Preferred Language | Unknown | + + + | Marital Status | | + + + | Scientologist Affiliation | 1076 | + + + | Race | Unknown | + + + | Ethnic Group | Unknown | + + + Author + + + | Author | [facility] | | | and [place] | + + + | Organization | [facility] | | | and [place] | [...] Team Providers + +------+ + | Care Transit Planning Director Name | Role | Phone | + +------+ + | Jason Read | PCP | | | MD | | | + +------+ + Reason for Visit + + + | Reason | Comments | + + + | Medication Refill | | + + + Encounter Details +--------+--------+ + + + | Date | Type | Department | Care Team | Description | +--------+--------+ + + + | 04/26/ | Refill | [facility] [place] | [place], | Medication Refill | | 2012 | | PULMONARY [address] | Becca Segura MD | | | | | [place], | | | | | | [place] [address] | | | | | | [phone] | | | +--------+--------+ + + + Social History + +-------+ [...] Urology | Jorje Rutledge | | | 2019 | Visit | | [address] | | | | | | [address] | | | | | | [place] [address] | | | | | | [phone] | | | | | | | | +--------+---------+ + + + documented as of this encounter Visit Diagnoses Not on filedocumented in this encounter"
--- OUTSIDE RECORDS SUMMARY | ~2019-02-24 | XMS | Encounter Summary ---
Demographics + + + | Address | [address] | | | [place] [address] | + + + | Home Phone | | + + + | Preferred Language | Unknown | + + + | Marital Status | | + + + | Tenriism Affiliation | 1076 | + + + | Race | Unknown | + + + | Ethnic Group | Unknown | + + + Author + + + | Author | [facility] | | | and [place] | + + + | Organization | [facility] | | | and [...] Team Providers + +------+ + | Care Prototype Engineer Name | Role | Phone | + [...] + + | 08/31/ | Office | [facility] | Jorje Rutledge | Prostate cancer | | 2018 | Visit | [address] | [address] | ([facility]) (Primary Dx); | | | | [place] | [address] [facility] | Preventative health | | | | [address] | [place] [address] | care | | | | [phone] | [phone] | | | | | | | [...] history ofT2c or T3 adenocarcinoma the prostate, [place] 4+3 = 7, PSA 13.9,which was diagnosed in June 2007. He received radiation therapy by Dr. Garza, with post radiation adjuvant Lupron administrat ion for approximately 1-1/2 years. His PSA soy was 0.01. He did have a post radiation PSA recurrence with a slow doubling time, and in July 2013, md s PSA was 5.38. He was started [...] (2004); Lumbar disc herniation; Migraines; Mood disorder ([facility]) of unknown (axis III) etiology; Nocturnal hypoxia; Osteoarthritis; Peptic ulcer disease; Pne umonia (05/2012); Prostate cancer ([facility]) (2007); Pulmonary nodules; Seborrheic dermatitis of s calp; Shoulder fracture (02/2012); Supplemental oxygen dependent; SVT (supraventricular tachy cardia) ([facility]) (01/2014); TIA (transient ischemic attack); and Vasovagal [...] or use drugs. Allergies Allergen Reactions Ipratropium [place] Hfa Other (See Comments) Reaction: Cough Penicillins [...] g by mouth Daily. Respiratory Therapy Supplies [facility] Please provide an O2 concentrator while Diego [...] His labs will be perfor med at [facility]. Diego is instructed to resume his usual and customary care with his primary care provider. I asked Diego to notify me if there were any difficulties voiding, or UTI symptoms, or flank pain, or for any questions or concerns whatsoever. This document was generated in part using [employer] voice recognition software. Although ever y effort is made to edit the content, carbonation equipment operator errors may occur. Occasional wrong word or [...] | | | | | | [place] [address] | | | | | | [phone] | | | | | | | [...] 1.001 - 1.030 | | | | [place], | | | | | | UA, [...]
--- OUTSIDE RECORDS SUMMARY | ~2019-02-24 | XMS | Encounter Summary ---
Demographics + + + | Address | [address] | | | [place] [address] | + + + | Home Phone | | + + + | Preferred Language | Unknown | + + + | Marital Status | | + + + | Scientologist Affiliation | 1076 | + + + | Race | Unknown | + + + | Ethnic Group | Unknown | + + + Author + + + | Author | [facility] | | | and [place] | + + + | Organization | [facility] | | | and [place] [...] Team Providers + +------+ + | Care Senior Applications Architect Name | Role | Phone | + +------+ + | Parviz Brar DO | PCP | | + +------+ + Reason for Visit +--------+ + | Reason | Comments | +--------+ + | COPD | | +--------+ + Encounter Details +--------+---------+ + + + | Date | Type | Department | Care Team | Description | +--------+---------+ + + + | 12/18/ | Office | [facility] | [place], | COPD (chronic | | 2013 | Visit | PULMONARY [address] | Becca Segura MD | obstructive | | | | [place], | | pulmonary disease) | | | | [place] [address] | | (Primary Dx); | | | | [phone] | | Nocturnal hypoxemia | | | | | | due to emphysema | | | | | | (HCC) | +--------+---------+ + + + Social History + + + +--------+ + | Tobacco Use | Types | Packs/Day | Years | Date | | | | | Used | | + + + +--------+ + | Former Smoker | Cigarettes, Pipe | 0.3 | 20 | Quit: 09/22/2009 | + + + +--------+ + + + | Comments: Smoked cigarettes for 20 years and smoked pipe [...] + + + | Blood Pressure | 102/64 | 12/18/2013 1:01 PM | | | | | PDT | | + + + + + | Pulse | 87 | 12/18/2013 1:01 PM | | | | | PDT | | + + + + + | Temperature | - | - | | + + + + + | Respiratory Rate | - | - | | + + + + + | Oxygen Saturation | 94% | 12/18/2013 1:01 PM | | | | | PDT | | + + + + + | Inhaled Oxygen | - | - | | | Concentration | | | | + + + + + | Weight | 79.2 kg (174 lb 8 | 12/18/2013 1:01 PM | | | | oz) | PDT | | + + + + + | Height | 182.9 cm (6') | 12/18/2013 1:01 PM | | | | | PDT | | + + + + + | Body Mass Index | 23.67 | 12/18/2013 1:01 PM | | | | | PDT | | + + + + + documented in this encounter Patient Instructions Patient Instructions Becca Castro MD - 12/18/2013 1:34 PM PDTIncrease the Atrove nt back to 4 times daily. I renewed that. Ask the insurance if Qvar is cheaper than Flovent at [facility] (the pharmacist might know t oo). documented in this encounter Progress Notes Becca Castro MD - 12/18/2013 1:11 PM PDTFormatting of this note might be differe nt from the original. Pulmonary Follow Up HPI Diego Lucas is a 78 y.o. male patient of Parviz Brar here today for follow up o f COPD. At their last visit, we had continued him on Flovent and Atrovent. Since their last visit roberto carlos rodriguez feels like he has been doing okay until recently, when he has been a little bit more short of breath. He cannot walk his usual 10-12 blocks without having some troubles. He has not b een acutely ill recently. This has been going on for 1-2 months since the weather changed. Roberto Carlos rodriguez does note some increased mucous production as well, which he has been taking Mucinex for. He is currently on a regimen of Flovent 220mcg 1 puff twice daily and Atrovent 2 puffs two times daily. He feels like the Atrovent helps, but is not certain the Flovent does. Currentl y he is using his rescue inhaler, Ventolin, once every couple of days. He returns today for routine follow up. Currently he is able to walk 5 blocks at his own pace on level ground without stopping. He then rests and goes back after. Some days, he can make it the whole 10 blocks, but not as co nsistently as before. He is exercising regularly. He does cough chronically, and does produce mucous. The mucous is yellow in color. He has n ot had hemoptysis. Usually he would cough up mucous in the morning, and it would be yellow, but it would not get stuck in his throat, but now it gets stuck. He has been evaluated for nocturnal oxygen and does use it. He is currently on 2 LPM at [facility] [place]. He reports good compliance. He does not have symptoms of heartburn or reflux. He has had symptoms of nasal congestion, runny nose or post nasal drip, but describes this as no more than his usual. Past Medical History Past Medical History Diagnosis Date COPD (chronic obstructive pulmonary disease) (HCC) Peptic ulcer disease with upper GI bleed Benign prostatic hypertrophy Prostate cancer (HCC) s/p radiation treatment and on hormonal treatment with Lupron Osteoarthritis Heartburn Pulmonary nodules Cataracts, bilateral Pneumonia 05/2012 hospitalized [facility] Shoulder fracture 02/2012 Foot fracture 02/2012 Past Surgical History Past Surgical History Procedure Date Pancreas surgery 1973 Appendectomy Cyst removal from back Nasal hemorrhage control 05/2012 Cataract removal with implant 11/2011 Right Cataract removal 03/2013 Left Social History: History Social History Marital Status: Spouse Name: N/A Number of Children: N/A Years of Education: N/A Social History Main Topics Smoking status: Former Smoker -- 0.3 packs/day for 20 years Types: Cigarettes, Pipe Quit date: 09/22/2009 Smokeless tobacco: None Comment: Smoked cigarettes for 20 years and smoked pipe [...] home. No other animal exposures.Grew up in [place]. Then lived in [place]. Then move d to [place]. In the service lived in [place] and [place]. No recent travel. Allergies: Allergies Allergen Reactions Adhesive & Tape Paper tapes Medications: Outpatient Encounter Prescriptions as of 12/18/2013 Medication Sig Dispense Refill acetaminophen (TYLENOL) 325 mg tablet Take 650 mg by mouth every 4 hours as needed. amLODIPine (NORVASC) 5 mg tablet Take one tablet by mouth once daily. Ascorbic Acid (VITAMIN C) 250 MG tablet Take 250 mg by mouth Daily. aspirin (ASPIRIN LOW DOSE) 81 MG tablet Take 81 mg by mouth Daily. cetirizine-psuedoephedrine (ZYRTEC-D) 5-120 MG per tablet Take 1 tablet by mouth Twice daily as needed. cholecalciferol [...] inhaler Inhale 2 puffs into the lungs 2 times da leslie. 1 Inhaler 11 omeprazole (PRILOSEC OTC) 20 mg tablet Take 20 mg by mouth Daily. oxygen Inhale 2 L into the lungs nightly. Respiratory Therapy Supplies [facility] Please provide an O2 concentrator while Diego is visiti for nocturnal O2 at 2 l/m. Dx: COPD, Nocturnal hypoxemia 1 each 0 tamsulosin (FLOMAX) 0.4 mg CAPS Take 0.8 mg by mouth daily (after breakfast). venlafaxine (EFFEXOR XR) 37.5 mg 24 hr capsule Take 37.5 mg by mouth Daily. VENTOLIN HFA 108 (90 BASE) MCG/ACT inhaler INHALE 2 PUFFS EVERY 4 HOURS NEEDED FOR S HORTNESS OF BREATH 18 g 11 zolpidem (AMBIEN) 5 mg tablet Take 5 mg by mouth nightly as needed. Review of Systems Constitutional: Denies fever, chills, sweats, and change in weight. Eyes: Denies vision change and eye irritation. ENT: Denies earache, decreased hearing, nosebleeds, sore throat, and hoarseness. Resp: See HPI. CV: Denies chest pain, palpitations, syncope, and peripheral edema. GI: Denies nausea, vomiting, and abdominal pain. : Denies difficulty emptying bladder. Recent Lupron injection, notes his PSA was quite lo w, 0.028. Objective BP 102/64 | Pulse 87 | Ht 1.829 m (6') | Wt 79.153 kg (174 lb 8 oz) | BMI 23.66 kg/m2 | SpO 2 94% RA General Appearance: Alert, cooperative, no [...] cyanosis, clubbing, or edema Pulses: Radial pulses 2+ and symmetric Skin: Warm and dry Lymph nodes: Cervical and supraclavicular nodes normal Data: Immunization History Administered Date(s) Administered PNEUMOCOCCAL POLYSACCHARIDE 23-VALENT (PPSV23) 10/21/2010 TRIVALENT INFLUENZA, PRESERATIVE FREE (PED/ADOL/ADULT) 12/11/2012, 11/18/2013 ZOSTER, 1 DOSE (ADULT) 04/22/2013 Assessment 1. COPD (chronic obstructive pulmonary disease) - Some increase in symptoms, which he attri butes to weather change, not any acute illness. He does not feel like he needs prednisone or antibiotics. We will try increasing the Atrovent to 4 times daily. He will call if he gets worse. He has had side effects to many of the inhalers, which limits our choices. 2. 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 Plan 1.Increase Atrovent to 2 puffs 4 times daily. 2.Continue Flovent twice daily. 3.Continue oxygen at night at 2L. He was advised to call if new pulmonary symptoms were to develop. Return to clinic in 3 months, or sooner with concerns. CC: Parviz Brar Portions of this report were transcribed using voice recognition software. Every effort wa s made to ensure accuracy; however, inadvertent computerized drug enforcement agent errors may be pre sent. 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
--- OUTSIDE RECORDS SUMMARY | ~2019-02-24 | XMS | Encounter Summary ---
Demographics + + + | Address | [address] | | | [place] [address] | + + + | Home Phone | | + + + | Preferred Language | Unknown | + + + | Marital Status | | + + + | Spiritism Affiliation | 1076 | + + + | Race | Unknown | + + + | Ethnic Group | Unknown | + + + Author + + + | Author | [facility] | | | and [place] | + + + | Organization | [facility] | | | and [...] Team Providers + +------+ + | Care Automatic Coil Machine Operator Name | Role | Phone | + +------+ + | Parviz Brar DO | PCP | | + +------+ + Encounter Details +--------+ + + + + | Date | Type | Department | Care Team | Description | +--------+ + + + + | 11/28/ | Orders Only | [facility] | Roshni Robert, | | | 2012 | | PULMONARY [address] | RN | | | | | [place], | | | | | | [place] [address] | | | | | | [phone] | | | +--------+ + + + [...] | | | | | | [place] [address] | | | | | | [phone] | | | | | | | | +--------+---------+ + + + documented as of this encounter Visit Diagnoses Not on filedocumented in this encounter"
--- OUTSIDE RECORDS SUMMARY | ~2019-02-24 | XMS | Encounter Summary ---
Demographics + + + | Address | [address] | | | [place] [address] | + + + | Home Phone | | + + + | Preferred Language | Unknown | + + + | Marital Status | | + + + | Buddhist Affiliation | 1076 | + + + | Race | Unknown | + + + | Ethnic Group | Unknown | + + + Author + + + | Author | [facility] | | | and [place] | + + + | Organization | [facility] | | | and [place] [...] Team Providers + +------+ + | Care Veneer Drier Feeder Name | Role | Phone | + +------+ + PCP | Unavailable | + +------+ + Encounter Details +--------+ + + + + | Date | Type | Department | Care Team | Description | +--------+ + + + + | 08/03/ | Hospital | [facility] | | | | 2008 - | Encounter | [facility] | | | | | | [facility] [address] | | | | 08/21/ | | [place] | | | | 2008 | | [address] | | | | | | [phone] | | | +--------+ + + + [...] | | | | | | [place] [address] | | | | | | [phone] | | | | | | | | +--------+---------+ + + + documented as of this encounter Visit Diagnoses Not on filedocumented in this encounter"
--- OUTSIDE RECORDS SUMMARY | ~2019-02-24 | XMS | Encounter Summary ---
Demographics + + + | Address | [address] | | | [place] [address] | + + + | Home Phone | | + + + | Preferred Language | Unknown | + + + | Marital Status | | + + + | Adventist Affiliation | 1076 | + + + | Race | Unknown | + + + | Ethnic Group | Unknown | + + + Author + + + | Author | [facility] | | | and [place] | + + + | Organization | [facility] | | | and [place] [...] Team Providers + +------+ + | Care Crusher Wet Ground Mica Name | Role | Phone | + [...] | | Abnormal | Offenstein, | [address] | | | | | chest CT | Becca B, | [place], | | | | | Procedures | MD [address] | [place] [address] | | | | | CT Chest wo | [address] | Phone: | | | | | Contrast | [place], | [phone] | | | | | | [place] [address] | Fax: | | | | | | | [phone] | +--------+--------+ + + + + Reason for Visit + + + | Reason | Comments | + + + | Follow-up | | + + + Encounter Details +--------+---------+ + + + | Date | Type | Department | Care Team | Description | +--------+---------+ + + + | 09/06/ | Office | [facility] | Odetteenstein, | Abnormal chest CT | | 2012 | Visit | PULMONARY [address] | Becca Segura MD | (Primary Dx); COPD | | | | [place], | | (chronic obstructive | | | | [place] [address] | | pulmonary disease) | | | | [phone] | | ([facility]); Pneumonia | +--------+---------+ + + + Social History + + + +--------+ + | Tobacco Use | Types | Packs/Day | Years | Date | | | | | Used | | + + + +--------+ + | Former Smoker | Cigarettes, Pipe | 0.3 | 20 | Quit: 08/10/1982 | + + + +--------+ + + [...] + + + | Blood Pressure | 142/68 | 09/06/2012 11:23 AM | | | | | PDT | | + + + + + | Pulse | 91 | 09/06/2012 11:23 AM | | | | | PDT | | + + + + + | Temperature | - | - | | + + + + + | Respiratory Rate | - | - | | + + + + + | Oxygen Saturation | 95% | 09/06/2012 11:23 AM | | | | | PDT | | + + + + + | Inhaled Oxygen | - | - | | | Concentration | | | | + + + + + | Weight | 70.8 kg (156 lb) | 09/06/2012 11:23 AM | | | | | PDT | | + + + + + | Height | - | - | | + + + + + | Body Mass Index | 21.76 | 09/23/2010 12:00 AM | | | | | PDT | | + + + + + documented in this encounter Patient Instructions Patient Instructions Becca Castro MD - 09/06/2012 11:48 AM PDTLet me know if you start to feel sick at all. We will repeat your CT scan in 3 months.Electronically signed by MD lizet May 09/06/2012 11:48 AM PDT documented in this encounter Progress Notes Becca Castro MD - 09/06/2012 11:26 AM PDTFormatting of this note might be differe nt from the original. Pulmonary Follow Up Becca Castro MD [facility] [address] [place], [address] [facility] Diego Lucas is a 76 y.o. male patient of Parviz Brar here today for follow up of COPD. He has had a terrible time lately. His August 25 after having to have a bowel rese ction and then having a prolonged stay at [facility]. She then had to have a repeat tracheostomy, which plugged and then she had a repeat hospitalization, and finally . He himself broke his shoulder and foot. He had pneumonia as well. He was hospitalized for t his at [facility] in May. He was in the hospital for 5-6 days. He was in a SNF for about a month after and has slowly been improving since. He had called back in November with a sore throat and I asked that he be seen by his PCP. He was started on cetirizine, and he felt like this helped a lot. Since the pneumonia he feels like his pneumonia has been stable. He has stayed on the Flove nt and Atrovent scheduled. He uses the Ventolin as needed, very infrequently, 1-2 times a we ek. Currently they are able to walk 8 blocks at their own pace on level ground. They are exerci sing regularly. He is walking quite a bit. He does cough a little bit, and does produce mucous. The mucous is white in color. They hav e not had hemoptysis, other than when he had a nosebleed. He has been evaluated for nocturnal oxygen and does use it. They are currently on 1.5 LPM a t night. They report good compliance, except when he was in [place]. Past Medical History Past Medical History Diagnosis Date COPD (chronic obstructive pulmonary disease) Peptic ulcer disease with upper GI bleed Benign prostatic hypertrophy Prostate cancer s/p radiation treatment and on hormonal treatment with Lupron Osteoarthritis Heartburn Pulmonary nodules Cataracts, bilateral Pneumonia 05/2012 hospitalized [facility] Shoulder fracture 02/2012 Foot fracture 02/2012 Past [...] 20 years Types: Cigarettes, Pipe Quit date: 08/10/1982 Smokeless tobacco: None Comment: Moked cigarettes for [...] home. No other animal exposures.Grew up in [place]. Then lived in [place]. Then move d to [place]. In the service lived in [facility] and [place]. No recent travel. Allergies: Allergies Allergen Reactions Adhesive & Tape Medications: Outpatient Encounter Prescriptions as of 09/06/2012 Medication Sig Dispense Refill amLODIPine (NORVASC) 5 mg tablet Take one tablet by mouth once daily. Ascorbic Acid (VITAMIN C) 250 MG tablet Take 250 mg by mouth Daily. aspirin (ASPIRIN LOW DOSE) 81 MG tablet Take 81 mg by mouth Daily. ferrous sulfate 325 mg tablet Take 325 mg by mouth daily (with breakfast). fluticasone (FLOVENT HFA) 220 mcg/puff inhaler Inhale 1 puff into the lungs 2 times abhijeet ly. FLUTICASONE-SALMETEROL IN 1 puff inhaled twice daily Hydrocodone-Acetaminophen 10-300 MG TABS as needed for pain ipratropium (ATROVENT HFA) 17 mcg/puff inhaler Inhale 2 puffs into the lungs 4 times da leslie. omeprazole (PRILOSEC OTC) 20 mg tablet Take 20 mg by mouth Daily. tamsulosin (FLOMAX) 0.4 mg CAPS Take 0.4 mg by mouth daily (after breakfast). DISCONTD: tamsulosin (FLOMAX) 0.4 mg CAPS Take 0.4 mg by mouth Daily. venlafaxine (EFFEXOR XR) 150 mg 24 hr capsule Take 150 mg by mouth Daily. VENTOLIN HFA 108 (90 BASE) MCG/ACT inhaler INHALE 2 PUFFS EVERY 4 HOURS NEEDED FOR S HORTNESS OF BREATH 18 g 11 Review of Systems Constitutional: Denies fever, chills, sweats. Lost a lot of weight while sick. Now regaini ng some. Sleep: Denies difficulty sleeping, excessive snoring, and daytime sleepiness. Eyes: Got new glasses, had cataract surgery. ENT: Denies earache, decreased hearing, sore throat, and hoarseness. Had major nosebleed, had cauterized 06/04. Resp: See HPI. CV: Denies chest pain, syncope, and peripheral edema. Had HR [address] Worley. GI: Denies heartburn, nausea, vomiting, and abdominal pain. : Denies difficulty emptying bladder. Nocturia 2 times a night. Objective BP 142/68 | Pulse 91 | Wt 70.761 kg (156 lb) | SpO2 95% General Appearance: Alert, cooperative, no distress, appears [...] interpreted in clinic tofletcher madrigal. It shows left basilar consolidation and left lingular consolidation. There is clustered nodularity on the right, and there is a stable nodule on the left in the lower lobe. Immunization History Administered Date(s) Administered Pneumococcal (Adult) 10/21/2010 Assessment 1. Abnormal chest CT - Most likely these changes represent residua from his previous pneumo janee for which he was hospitalized at [facility]. Last PSA was 2, and these are not c onsistent with primary malignancy. I am, however surprised he has so much disease remaining 3 months out. We will repeat his CT scan in 3 months for follow up. I will also request imag ing from his hospitalization in May. 2. COPD (chronic obstructive pulmonary disease) - He is stable. He has been intolerant of m any inhalers and is stable on Flovent and Atrovent. He is getting back to exercising. 3. Pneumonia - No signs or symptoms of recurrence. I asked him to contact me if he becomes ill. Plan 1.Get imaging from [facility]. 2.Repeat chest CT scan in 3 months. 3.Continue Flovent and Atrovent. He was advised to call if new pulmonary symptoms were to develop. Return to clinic in 3 months with repeat chest CT, or sooner with concerns. CC: Parviz Brar Portions of this report were transcribed using voice recognition software. Every effort wa s made to ensure accuracy; however, inadvertent computerized drafter tool design errors may be pre sent. documented in [...] | | | | | [place] [address] | | | | | | [phone] | | | | | | | | +--------+---------+ + + + documented as of this encounter Results CT Chest wo Contrast (10/27/2012 3:21 PM PDT) + + | Specimen | + + | | + + + + + | Narrative | Performed At | + + + | [facility] | [place] | | Department [address] [facility] | [facility] | | [ rep [address]] [ rep [facility] | | [facility]] Signed | - IMAGING | | | | | Patient Name: DIEGO LUCAS Physician: | | | . : 1935 Age: 76 Sex: M Unit #: [id number] | | | Exam Date: 10/27/12 Location: [facility] | | | Report #: [id number] Page: | | | %(RAD)RES..mtdd.print.filter("pg") of %(RAD) | | | RES..mtdd.print.filter("tpg") | | | | | | Accession Number: [id number] | | | [id number] CHEST CT CLINICAL HISTORY: FOLLOWUP | | | NODULES AND RESIDUAL PNEUMONIA. COMPARISON: Numerous | | | previous CT scans of the chest, most recently 09/06/2012. | | | PROTOCOL: Axial CT images of the chest with reconstruction views. | | | FINDINGS: Neck base is normal. There is extensive | | | centrilobular emphysema involving the bilateral lungs with | | | predominance in the upper lobes. The previously described two nodules | | | in the right upper lobe along the minor fissure have decreased in | | | size and density currently measuring 0.6 cm and 0.8 cm (images 72 | | | and 74). Again visualized is the nodule in the anterior right upper | | | lobe that is pleural-based (image 95) that currently measures 0.7 cm | | | and has decreased in size. There is a 0.2 cm nodule in the superior | | | segment of the left lower lobe (image 61) that has decreased mildly | | | in size. A 0.7 cm pleural-based nodule is in the posterior left | | | lower lobe (image 81) and has decreased mildly in size. Previously | | | observed mass-like opacity in the left lower lobe has decreased in | | | size and density compared to the prior study. This currently appears | | | as some focal moderate interstitial opacities. There has been | | | interval development of at least 5 nodules in the left lower lobe with | | | the largest measuring 1.0 cm ( image 97). A 0.4 cm nodule is present | | | in the lower aspect of the right upper lobe (image 78) that is new | | | as well. There remains moderate scarring of the bilateral lung bases | | | along with mild bronchiectasis in the bilateral lower lobes. | | | Heart is of normal size. There is some mild anterior pericardial | | | thickening. Mild atherosclerosis is visualized of the aorta. There | | | is moderate to severe atherosclerosis in the mid right brachiocephalic | | | artery. The ascending thoracic aorta is mildly ectatic measuring up | | | to 3.9 cm in the AP dimension. Pulmonary arteries and SVC are | | | normal. Borderline lymph nodes are observed in the | | | paratracheal regions with the largest measuring 1.2 cm ( image 45). | | | Borderline lymph nodes are observed in the AP window with the largest | | | measuring 1.0 cm ( image 48). These have decreased mildly in size | | | compared with the prior study. Luna and axilla are unremarkable. | | | Trachea and esophagus are normal. There is mild rightward | | | curvature of the thoracic spine that could be positional. Mild | | | spondylosis is visualized of the thoracic spine. Multiple | | | low-attenuation lesions are visualized of the liver with the largest | | | measuring 1.3 cm that likely represent cysts. Compared with the | | | prior study, the imaged lesions on the prior study have remained | | | grossly stable. There is moderate atherosclerosis of the abdominal | | | aorta. 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 | | | PREVIOUSLY OBSERVED MASS-LIKE OPACITY IN THE LEFT LOWER LOBE IS | | | SMALLER AND LESS DENSE. THIS COULD HAVE REPRESENTED ROUND PNEUMONIA | | | OR ATELECTASIS. THE PREVIOUSLY OBSERVED NODULES OF THE | | | BILATERAL LUNGS HAVE DECREASED MILDLY IN SIZE AND LIKELY REPRESENT | | | INFLAMMATORY NODULES. AT LEAST FIVE NEW NODULES ARE PRESENT | | | IN THE LEFT LOWER LOBE AND ONE NEW NODULE IN THE RIGHT UPPER LOBE. | | | THE LARGEST OF THESE IS 1.0 CM IN THE LEFT LOWER LOBE. ACCORDING TO | | | THE RECOMMENDATIONS OF THE [employer], A FOLLOWUP CT SCAN IS | | | RECOMMENDED IN 3, 9, AND 24 MONTHS. BORDERLINE LYMPH NODES | | | OF MEDIASTINUM THAT HAVE MILDLY DECREASED IN SIZE. STABLE | | | MILD ECTASIA OF THE ASCENDING THORACIC AORTA. STABLE CYSTS OF | | | LIVER. Dictated Date/Time: 10/27/2012 15:21 | | | Transcribed Date/Time: 10/27/2012 16:01 Sculpture Conservator: | | | <<Signature on File>> | | | Yosef | | | MD Jimmie10/27/122003 <Electronically signed by Yosef Samuel MD> | | | Yosef Samuel MD 10/27/12 1521 Sculpture Conservator: [employer] | | | Mopfcqoighzzb80/05/13 1601 Becca Castro MD | | | | | + + + + + + + + | Performing | Address | City/State/Zipcode | Phone Number | | Organization | | | | + + + + + | [facility] | [address] | [place] | [phone] | | [facility] | | [address] | | | - IMAGING | | [...] | elsewhere classified | + + | Pneumonia Pneumonia, organism unspecified | + + documented in this encounter
--- OUTSIDE RECORDS SUMMARY | ~2019-02-24 | XMS | Encounter Summary ---
Demographics + + + | Address | [address] | | | [place] [address] | + + + | Home Phone | | + + + | Preferred Language | Unknown | + + + | Marital Status | | + + + | Restorationism Affiliation | 1076 | + + + | Race | Unknown | + + + | Ethnic Group | Unknown | + + + Author + + + | Author | [facility] | | | and [place] | + + + | Organization | [facility] | | | and [...] Team Providers + +------+ + | Care Fisheries Technician Name | Role | Phone | + +------+ + | Parviz Brar DO | PCP | | + +------+ + Encounter Details +--------+ + + + + | Date | Type | Department | Care Team | Description | +--------+ + + + + | 06/16/ | Hospital | [facility] | Conversion | Pain | | 2017 | Encounter | CONVERSION [address] | Transaction, | | | | | [address] | Provider Unknown | | | | | [place], [place] | [phone] | | | | | [address] | | | | | | [phone] | | | +--------+ + + + [...] + + documented as of this encounter Medications at Time of Discharge + + + +---------+ + + | Medication | Sig | Dispensed | Refills | Start | End Date | | | | | | Date | | + + + +---------+ + + | albuterol (PROAIR | Inhale 2 puffs into | 1 | 11 | 12/19/19 | | | HFA) 90 mcg/puff | the lungs every 6 | Inhaler | | 14 | | | inhaler | hours as needed for | | | | | | | Wheezing or | | | | | | | Shortness of Breath. | | | | | + + + +---------+ + + | amLODIPine | Take one tablet by | | 0 | 12/02/19 | | | (NORVASC) 5 mg | mouth once daily. | | | 12 | | | tablet | | | | | | + + + +---------+ + + | | Inhale 1 puff into | 1 each | 11 | 12/11/19 | | | fluticasone-vilanter | the lungs Daily. | | | 15 | | | ol (BREO ELLIPTA) | | | | | | | 100-25 mcg/puff | | | | | | | inhaler | | | | | | + + + +---------+ + + | | Take 1 tablet by | | 0 | | | | HYDROcodone-acetamin | mouth every 6 hours | | | | | | ophen (NORCO) 10-325 | as needed. | | | | | | mg per tablet | | | | | | + + + +---------+ + + | ipratropium | Inhale 2 puffs into | | 0 | 07/02/19 | | | (ATROVENT HFA) 17 | the lungs. | | | 16 | | | mcg/puff inhaler | | | | | | + + + +---------+ + + | ketoconazole | | | 1 | 11/06/19 | | | (NIZORAL) 2% shampoo | | | | 16 | | + + + +---------+ + + | oxyCODONE | Take by mouth. | | 0 | 06/15/19 | | | (ROXICODONE) 5 mg | | | | 13 | | | tablet | | | | | | + + + +---------+ + + | oxygen | Inhale 2 L into the | | 0 | | | | | lungs nightly. | | | | | + + + +---------+ + + | oxymetazoline (PX | Instill 2 Sprays | | 0 | 06/15/19 | | | NASAL SPRAY | into each nostril | | | 13 | | | MOISTURIZING) 0.05% | every six hours as | | | | | | nasal spray | needed (Epistaxis). | | | | | | | Use for only 3 days. | | | | | + + + +---------+ + + | pantoprazole | Take 1 tablet by | | 0 | 06/05/19 | | | (PROTONIX) 40 mg | mouth Daily. | | | 17 | | | tablet | | | | | | + + + +---------+ + + | Respiratory | Please provide an O2 | 1 each | 0 | 06/27/19 | | | Therapy Supplies | concentrator while | | | 14 | | | MISCIndications: | Diego is visiting for | | | | | | Chronic airway | nocturnal O2 at 2 | | | | | | obstruction, not | l/m. 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 | | 0 | 06/15/19 | | | | | | | 13 | | + + + +---------+ + + | venlafaxine | Take 37.5 mg by | | 0 | | | | (EFFEXOR XR) 37.5 mg | mouth Daily. | | | | | | 24 hr capsule | | | | | | + + + +---------+ + + | zolpidem (AMBIEN) | Take 5 mg by mouth | | 0 | | | | 5 mg tablet | nightly as needed. | | | | | | | SLEEP | | | | | + + + +---------+ + + | acetaminophen | Take 650 mg by mouth | | 0 | | | | (TYLENOL) 325 mg | every 4 hours as | | | | 7 | | tablet | needed. | | | | | + + + +---------+ + + | aspirin 81 mg EC | Take 81 mg by mouth | | 0 | | | | tablet | Daily. Three times | | | | 7 | | | per week | | | | | + + + +---------+ + + | cholecalciferol | Take 1,000 Units by | | 0 | | | | (VITAMIN D-3) 1,000 | mouth nightly. | | | | 7 | | units capsule | | | | | | + + + +---------+ + + | [facility] LUTEIN PO | Take by mouth. | | 0 | | | | | | | | | 8 | + + + +---------+ + + | ferrous sulfate | Take 325 mg by mouth | | 4 | 02/26/19 | | | 325 mg tablet | 2 times daily (with | | | 16 | 8 | | | breakfast & | | | | | | | dinner). Take one | | | | | | | tablet daily | | | | | + + + +---------+ + + | ipratropium | Inhale 2 puffs into | 1 | 2 | 07/02/19 | | | (ATROVENT HFA) 17 | the lungs every 6 | Inhaler | | 16 | 8 | | mcg/puff inhaler | hours as needed for | | | | | | | Wheezing (or | | | | | | | shortness of | | | | | | | breath). | | | | | + + + +---------+ + + | omeprazole | Take 20 mg by mouth | | 0 | 11/05/19 | | | (PRILOSEC OTC) 20 mg | Daily. | | | 12 | 7 | | tablet | | | | | | + + + +---------+ + + | oxyCODONE | Take by mouth. | | 0 | 06/15/19 | | | (ROXICODONE) 5 mg | | | | 13 | 8 | | tablet | | | | | | + + + +---------+ + + | oxymetazoline (12 | Instill 2 Sprays | | 0 | 06/15/19 | | | HOUR NASAL SPRAY) | into each nostril | | | 13 | 8 | | 0.05% nasal spray | every six hours as | | | | | | | needed (Epistaxis). | | | | | | | Use for only 3 days. | | | | | + + + +---------+ + + | Polyethylene | Take by mouth. | | 0 | | | | Glycol 3350 (MIRALAX | | | | | 7 | | PO) | | | | | | + + + +---------+ + + | sucralfate | Take 1 tablet by | | 4 | 06/17/19 | | | (CARAFATE) 1 g | mouth Daily. | | | 17 | 8 | | tablet | | | | | | + + + +---------+ + + | tamsulosin | TAKE 2 CAPSULES BY | 60 | 0 | 05/05/19 | | | (FLOMAX) 0.4 mg CAPS | MOUTH ONCE DAILY | capsule | | 17 | 7 | | | NEEDED | | | | | + + + +---------+ + + | triamcinolone | ZAMZAM EXT AA BID FOR 2 | | 1 | 10/05/19 | | | (KENALOG) 0.1% cream | TO 4 WKS | | | 16 | 8 | + + + +---------+ + + documented as of this encounter [...] | | | | | [place] [id number] | | | | | | [phone] | | | | | | | | +--------+---------+ + + + documented as of this encounter Procedures + +--------+ + + + | Procedure Name | Priori | Date/Time | Associated Diagnosis | Comments | | | ty | | | | + +--------+ + + + | CT CHEST WO CONTRAST | Routin | 10/27/2012 | | Results for this | | | e | 4:16 AM | | procedure are in the | | | | PDT | | results section. | + +--------+ + + + documented in this encounter Results CT Chest wo Contrast (10/27/2012 4:16 AM PDT) + + | Specimen | + + | | + + + + + | Narrative | Performed At | + + + | This is a non-reportable procedure without a radiologist report and | | | is used for image storage only | | + + + + + | Procedure Note | + + | Duke Albert - 10/06/2018 7:42 AM PDT This is a non-reportable procedure | | without a radiologist report and isused for image storage only | + + documented in this encounter Visit Diagnoses + + | Diagnosis | + + | Pain Generalized pain | + + documented in this encounter"
--- OUTSIDE RECORDS SUMMARY | ~2019-02-24 | XMS | Encounter Summary ---
Demographics + + + | Address | [address] | | | [place] [address] | + + + | Home Phone | | + + + | Preferred Language | Unknown | + + + | Marital Status | | + + + | Yazidi Affiliation | 1076 | + + + | Race | Unknown | + + + | Ethnic Group | Unknown | + + + Author + + + | Author | [facility] | | | and [place] | + + + | Organization | [facility] | | | and [place] [...] Team Providers + +------+ + | Care Electronics Tech Name | Role | Phone | + [...] + + | Closed | Specialty | Urology | Diagnoses | | [facility] | | | Services | | Prostate | [place], | Urology [address] | | | Required | | cancer (HCC) | Billy B, | [address] | | | | | | MD [address] | [place], | | | | | | [address] | [place] [address] | | | | | | [place], | Phone: | | | | | | [place] [address] | [phone] | | | | | | | Fax: | | | | | | | [phone] | +--------+ + + + + + Reason for Visit +--------+ + | Reason | Comments | +--------+ + | COPD | follow up from hospital | +--------+ + Encounter Details +--------+---------+ + + + | Date | Type | Department | Care Team | Description | +--------+---------+ + + + | 03/06/ | Office | [facility] | [place], | Chronic obstructive | | 2016 | Visit | PULMONARY [address] | Billy Segura MD | pulmonary disease, | | | | [place], | | unspecified COPD | | | | [place] [address] | | type (HCC); | | | | [phone] | | Nocturnal hypoxemia | | | | | | due to emphysema | | | | | | ([facility]); Prostate | | | | | | cancer ([facility]) | +--------+---------+ + + + Social History [...] | | + +---+---+---+ + + | Tobacco Cessation: Counseling Given: No | + + + + +---------+ + [...] + + + | Blood Pressure | 110/74 | 03/06/2015 11:31 AM | | | | | PST | | + + + + + | Pulse | 76 | 03/06/2015 11:31 AM | | | | | PST | | + + + + + | Temperature | - | - | | + + + + + | Respiratory Rate | - | - | | + + + + + | Oxygen Saturation | 94% | 03/06/2015 11:31 AM | | | | | PST | | + + + + + | Inhaled Oxygen | - | - | | | Concentration | | | | + + + + + | Weight | 77.1 kg (170 lb) | 03/06/2015 11:31 AM | | | | | PST | | + + + + + | Height | 177.8 cm (5' 10") | 03/06/2015 11:31 AM | | | | | PST | | + + + + + | Body Mass Index | 24.39 | 03/06/2015 11:31 AM | | | | | PST | | + + + + + documented in this encounter Patient Instructions Patient Instructions Billy Castro MD - 03/06/2015 12:27 PM PSTI put in the urolog y referral, so we will see what happens. Stay on the Breo once daily. It is okay to taper off the Atrovent to as needed up to 4 times daily if you improve. Stay on the oxygen at night at 2L. Electronically signed by Billy Castro MD at 12:27 PM PST documented in this encounter Progress Notes Billy Castro MD - 03/06/2015 11:40 AM PSTFormatting of this note might be differe nt from the original. Pulmonary Follow Up HPI Diego Lucas is a 79 y.o. male patient of Parviz Brar here today for follow up o f COPD. In January, he went in to [facility] after having a GI bleed, with dark melanotic stool s. He had also had coffee ground emesis several days prior. He was admitted and prepped for a colonoscopy, and apparently vomited up his second liter of GoLytely, and then aspirated an d got a left lower lobe pneumonia. He notes that the morning after the prep he started to co ugh up blood and had fever. He had a colonoscopy done with Dr. Arellano, which was apparently not complete due to a long r edundant colon, so he then had a barium enema. He was found to have diverticulosis only. He had an upper endoscopy which showed a hiatal hernia, distal gastritis and a small epiphrenic diverticulum. He did have to get transfused with several units of blood as well. He did get treated and improved. He was discharged after 6 days. He has not had any complic ations since then. He started back on iron, and thinks this has helped. He switched insurance at the beginning of the year, so he could get the Breo covered, as no ne of the inhalers were covered. He was on the Qvar until then. He does feel like the Breo h as helped considerably. He is currently on a regimen of Breo 1 inhalation once daily. He does feel like this medic ation regimen is working for them. Currently he is using his rescue inhaler, Atrovent, 2-3 t imes a day as he has not felt like he needed this 4 times a day. He returns today for routi ne follow up. Currently he is able to walk 1/2 mile at his own pace on level ground. He is exercising reg ularly. He is walking at [facility] as it has been too cold to walk outside. He has not been coughing much. He had hemoptysis only for a couple of days, and this resol ed. He has been evaluated for nocturnal oxygen and does use it. He is currently on 2 LPM at [facility]. He reports good compliance. He required as much as 10L of oxygen in the hospital. Past Medical History Past Medical History Diagnosis Date Peptic ulcer disease with upper GI bleed Benign prostatic hypertrophy Osteoarthritis Heartburn Pulmonary nodules Shoulder fracture 02/2012 Foot fracture 02/2012 SVT (supraventricular tachycardia) 01/[address] Wilder for ablation Depression Prostate cancer ([facility]) 2007 s/p radiation treatment and on hormonal treatment with Lupron; DR BARKLEY [place] COPD (chronic obstructive pulmonary disease) ([facility]) DR BILLY CASTRO Pneumonia 05/2012 hospitalized [facility] Heart murmur DR MARIAA OLIVERA Cataracts, bilateral s/p removal Kidney stone 2004 Hypertension TIA (transient ischemic attack) SEVERAL. LAST TIME 2012.NO RESIDUAL; CT SCAN/ ANGIO IN PAST Migraines Supplemental oxygen dependent 02@2L AT NIGHT C. difficile enteritis 2012 Lumbar disc herniation GI bleed 01/2015 unclear etiology, required 3 u blood, had upper and lower endoscopy Diverticulosis 01/2015 Hiatal hernia 01/2015 Gastritis 01/2015 mild Past Surgical History Past Surgical History Procedure Laterality Date Pancreas surgery 1972 Appendectomy Cyst removal from back Nasal hemorrhage control 05/2012 Cataract removal with implant 11/2011 Right Cataract removal 03/2013 Left Lumbar spine surgery 1987, 1989 Discectomy X2, Dr. Santo Angiogram EARLY 1979 FOR TIA HISTORY Ablation of dysrhythmic focus 03/19/2014 Laterality: N/A; Surgeon: Jennifer Wilder MD; Location: [facility] ELECTROPHYSIOLOGY Egd and colonoscopy 02/06/2015 Dr. 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 Also expo sed to asbestos. His grandfather had tuberculosis, he is not sure if he has been tested. No pets at home. No other animal exposures. Grew up in [place]. Then lived in [place]. Then moved to [place]. In the service lived [facility] and [place]. No recent travel. Allergies: Allergies Allergen Reactions Adhesive & Tape Paper tapes- BLISTERS Medications: Outpatient Encounter Prescriptions as of 03/06/2015 Medication Sig Dispense Refill acetaminophen (TYLENOL) 325 mg tablet Take 650 mg by mouth every 4 hours as needed. albuterol (PROAIR HFA) 90 mcg/puff inhaler Inhale 2 puffs into the lungs every 6 hours as needed for Wheezing or Shortness of Breath. 1 Inhaler 11 albuterol 90 mcg/puff inhaler Inhale 2 puffs into the lungs every 6 hours as needed for Wheezing. amLODIPine (NORVASC) 5 mg tablet Take one tablet by mouth once daily. Ascorbic Acid (VITAMIN C) 250 MG tablet Take 250 mg by mouth Daily. [DISCONTINUED] aspirin (ASPIRIN LOW DOSE) 81 MG tablet Take 81 mg by mouth Daily. ATROVENT HFA 17 MCG/ACT inhaler INHALE TWO PUFFS BY MOUTH INTO THE LUNGS FOUR TIMES LATRELL LY 1 Inhaler 5 cetirizine-psuedoephedrine (ZYRTEC-D) 5-120 MG per tablet Take 1 tablet by mouth Daily as needed. ALLERGIES cholecalciferol (VITAMIN D-3) 1,000 units capsule Take 1,000 Units by mouth nightly. Copper Gluconate (COPPER CAPS PO) Take 1 mg by mouth. CVS LUTEIN PO Take by mouth. Fe Bisgly-Vit C-Vit B12-FA (GENTLE IRON) 28-60-0.008-0.4 MG CAPS Take 1 capsule by mout h Daily. [DISCONTINUED] ferrous sulfate (IRON) 28 MG TABS Take 28 mg by mouth Daily. ferrous sulfate 325 mg tablet Take one tablet daily 4 fluticasone-vilanterol (BREO ELLIPTA) 100-25 mcg/puff inhaler Inhale 1 puff into the justice ngs Daily. 1 each 11 folic acid (FOLVITE) 400 MCG tablet Take 400 mcg by mouth Daily. HYDROcodone-acetaminophen (NORCO) 10-325 mg per tablet Take 1 tablet by mouth every 6 h ours as needed. [DISCONTINUED] ipratropium (ATROVENT HFA) 17 mcg/puff inhaler Inhale 2 puffs into the l ungs 4 times daily. 1 Inhaler 11 Leuprolide Acetate (LUPRON IJ) Inject as directed. omeprazole (PRILOSEC OTC) 20 mg tablet Take 20 mg by mouth Daily. oxygen Inhale 2 L into the lungs nightly. Polyethylene Glycol 3350 (MIRALAX PO) Take by mouth. [DISCONTINUED] QVAR 80 MCG/ACT inhaler INHALE TWO PUFFS BY MOUTH INTO THE LUNGS TWICE D AILY 1 Inhaler 1 [facility] Please provide an O2 concentrator while Diego is visiti ng for nocturnal O2 at 2 l/m. Dx: COPD, Nocturnal hypoxemia 1 each 0 tamsulosin (FLOMAX) 0.4 mg CAPS Take 0.8 mg by mouth nightly. OCCASIONALLY TAKES 2 TABS NEEDED venlafaxine (EFFEXOR XR) 37.5 mg 24 hr capsule Take 37.5 mg by mouth Daily. zinc oxide-cod liver oil-lanolin (DESITIN) 40% paste Apply topically as needed for Lashawn per Rash. zolpidem (AMBIEN) 5 mg tablet Take 5 mg by mouth nightly as needed. SLEEP No facility-administered encounter medications on file as of 03/06/2015. Review of Systems: General: [x]Weight loss/gain (over 10 lbs) - loss while in hospital []Fever/chills/sweats []Night sweats EENT: []Hearing loss []Vision loss/change []Sinus congestion/nasal drainage []Nosebleeds [ ]Hoarseness Cardiac: []Chest pain []Palpitations/heart racing []Swelling of legs/ankles []Waking up at night s hort of breath []Difficulty sleeping flat Gastrointestinal: []Nausea/vomiting []Difficulty swallowing []Heartburn/acid reflux []Loss of appetite []Ab dominal pain Urologic: []Blood in urine []Frequent urination at night []Burning/painful urination []Difficulty wit h urination Objective BP 110/74 mmHg | Pulse 76 | Ht 1.778 m (5' 10") | Wt 77.111 kg (170 lb) | BMI 24.39 kg/m2 | SpO2 94% RA General Appearance: Alert, cooperative, no distress, appears stated age Head: Normocephalic, without obvious abnormality, atraumatic Eyes: PERRL, conjunctiva clear, no scleral icterus, EOM's intact Ears: Normal TM's, external auditory canals, normal acuity Nose: Nares normal, septum midline, mucosa normal Mouth: No oral lesions or exudate Neck: Supple, symmetrical, no adenopathy Lungs: No accessory muscle use, breath sounds are markedly diminished bilaterally with pr olongation of the expiratory phase, no wheezes, crackles or rhonchi Chest Wall: No deformity Heart: Regular rate and rhythm, no murmur, rub or gallop Abdomen: Soft, non-tender, non-distended Extremities: No cyanosis, clubbing, trace bilateral lower extremity edema Pulses: Radial pulses 2+ and symmetric Skin: Warm and dry Lymph nodes: Cervical and supraclavicular nodes normal Data: Hospital notes were reviewed in clinic today. Chest x-ray was done prior to clinic today and was reviewed and interpreted in clinic today . It shows improvement in the left sided consolidation seen on chest x-ray in January. Immunization History Administered Date(s) Administered INFLUENZA, HIGH DOSE SEASONAL (ADULT) 11/10/2014 INFLUENZA, TRIVALENT PRESERVATIVE FREE (PED/ADOL/ADULT) 12/11/2012, 11/18/2013 PNEUMOCOCCAL CONJUGATE 13-VALENT (PCV13) 03/13/2014 PNEUMOCOCCAL POLYSACCHARIDE 23-VALENT (PPSV23) 10/21/2010 ZOSTER, 1 DOSE (ADULT) 04/22/2013 Assessment ICD-10-CM ICD-9-CM 1. Chronic obstructive pulmonary disease, unspecified COPD type ([facility]) J44.9 496 On Breo wit h good symptomatic improvement. Given that his anemia is also correcting, this likely accoun ts for some of his symptom improvement. He can switch the Atrovent to as needed only. 2. Nocturnal hypoxemia due to emphysema ([facility]) J43.9 492.8 On oxygen at 2L. We will continue this. G47.36 327.26 3. Prostate cancer ([facility]) C61 185 On Lupron therapy and followed previously with Dr. Barkley, who has apparently left her practice. I placed a referral for him to see urology here as he has apparently had difficulty getting in to see a provider. * [facility] - AMB Referral Plan 1.Continue on Breo one inhalation once daily. 2.Continue oxygen at night at 2L. 3.Change Atrovent to as needed only. 4. Referral to urology placed to help assist with his transition to a new provider. He was advised to call if new pulmonary symptoms were to develop. Return to clinic in 3 months, or sooner with concerns. CC: Parviz Brar DO, Jayro Jenkins MD Portions of this report were transcribed using voice recognition software. Every effort wa s made to ensure accuracy; however, inadvertent computerized clinical data management director errors may be pre sent. documented in this encounter Plan of Treatment +--------+---------+ + + + | Date | Type | Specialty | Care Team | Description | +--------+---------+ + + + | 03/13/ | Office | Urology | Jorje Rutledge | | | 2019 | Visit | | MD [address] | | | | | | [address] | | | | | | [place] [address] | | | | | | [phone] | | | | | | | | +--------+---------+ + + + + + +--------+ + + | Name | Type | Priori | Associated Diagnoses | Order Schedule | | | | ty | | | + + +--------+ + + | * [facility] | Outpatient | Routin | Prostate cancer | Ordered: 03/06/2015 | | - AMB Referral | Referral | e | (HCC) | | + + +--------+ + + documented as of this encounter Visit Diagnoses + + | Diagnosis | + + | Chronic obstructive pulmonary disease, unspecified COPD type (HCC) | + + | Nocturnal hypoxemia due to emphysema (HCC) Other emphysema | + + | Prostate cancer (HCC) Malignant neoplasm of prostate | + + documented in this encounter
--- OUTSIDE RECORDS SUMMARY | ~2019-02-24 | XMS | Encounter Summary ---
Demographics + + + | Address | [address] | | | [place] [address] | + + + | Home Phone | | + + + | Preferred Language | Unknown | + + + | Marital Status | | + + + | Christian Affiliation | 1076 | + + + | Race | Unknown | + + + | Ethnic Group | Unknown | + + + Author + + + | Author | [facility] | | | and [place] | + + + | Organization | [facility] | | | and [...] Team Providers + +------+ + | Care Customs Consultant Name | Role | Phone | + +------+ + PCP | Unavailable | + +------+ + Encounter Details +--------+ + + + + | Date | Type | Department | Care Team | Description | +--------+ + + + + | 03/06/ | Hospital | [facility] | | | | 1996 | Encounter | MED CTR XRAY [address] | | | | | | [address] | | | | | | [place] [address] | | | | | | [phone] | | | +--------+ + + + [...] | | | | | [place] [address] | | | | | | [phone] | | | | | | | | +--------+---------+ + + + documented as of this encounter Visit Diagnoses Not on filedocumented in this encounter"
--- OUTSIDE RECORDS SUMMARY | ~2019-02-24 | XMS | Encounter Summary ---
Demographics + + + | Address | [address] | | | [place] [address] | + + + | Home Phone | | + + + | Preferred Language | Unknown | + + + | Marital Status | | + + + | Baptist Affiliation | 1076 | + + + | Race | Unknown | + + + | Ethnic Group | Unknown | + + + Author + + + | Author | [facility] | | | and [place] | + + + | Organization | [facility] | | | and [...] Team Providers + +------+ + | Care Evp Name | Role | Phone | + +------+ + | Parviz Brar DO | PCP | | + +------+ + Reason for Visit + + + | Reason | Comments | + + + | Results, Imaging | | + + + Encounter Details +--------+ + + + + | Date | Type | Department | Care Team | Description | +--------+ + + + + | 05/04/ | Telephone | [facility] | Marc Odell | Results, Imaging | | 2018 | | GASTROENTEROLOGY | MD [address] | | | | | [address] [facility] | [facility] | | | | | [address] | [place] [address] | | | | | [address] | [phone] | | | | | [phone] | | | +--------+ + + + [...] | | | | | [place] [address] | | | | | | [phone] | | | | | | | | +--------+---------+ + + + documented as of this encounter Visit Diagnoses Not on filedocumented in this encounter"
--- OUTSIDE RECORDS SUMMARY | ~2019-02-24 | XMS | Encounter Summary ---
Demographics + + + | Address | [address] | | | [place] [address] | + + + | Home Phone | | + + + | Preferred Language | Unknown | + + + | Marital Status | | + + + | Samaritan Affiliation | 1076 | + + + | Race | Unknown | + + + | Ethnic Group | Unknown | + + + Author + + + | Author | [facility] | | | and [place] | + + + | Organization | [facility] [...] Team Providers + +------+ + | Care Piercing Artist Name | Role | Phone | + +------+ + PCP | Unavailable | + +------+ + Encounter Details +--------+ + + + + | Date | Type | Department | Care Team | Description | +--------+ + + + + | 11/23/ | Hospital | [facility] | | | | 2008 - | Encounter | MED CTR CANCER | | | | | | CENTER [address] | | | | 12/22/ | | [place] | | | | 2008 | | [address] | | | | | | [phone] | | | +--------+ + + + [...] | | | | | | [place] [address] | | | | | | [phone] | | | | | | | | +--------+---------+ + + + documented as of this encounter Visit Diagnoses Not on filedocumented in this encounter"
--- OUTSIDE RECORDS SUMMARY | ~2019-02-24 | XMS | Encounter Summary ---
Demographics + + + | Address | [address] | | | [place] [address] | + + + | Home Phone | | + + + | Preferred Language | Unknown | + + + | Marital Status | | + + + | Latter-Day Affiliation | 1076 | + + + | Race | Unknown | + + + | Ethnic Group | Unknown | + + + Author + + + | Author | [facility] | | | and [place] | + + + | Organization | [facility] | | | and [place] [...] Team Providers + +------+ + | Care Sumac Tanner Name | Role | Phone | + [...] | RN | | | | | [place], | | | | | | [place] [address] | | | | | | [phone] | | | +--------+ + + + [...] | | | | | [place] [address] | | | | | | [phone] | | | | | | | | +--------+---------+ + + + documented as of this encounter Visit Diagnoses Not on filedocumented in this encounter"
--- OUTSIDE RECORDS SUMMARY | ~2019-02-24 | XMS | Encounter Summary ---
Demographics + + + | Address | [address] | | | [place] [address] | + + + | Home Phone | | + + + | Preferred Language | Unknown | + + + | Marital Status | | + + + | Bahai Affiliation | 1076 | + + + | Race | Unknown | + + + | Ethnic Group | Unknown | + + + Author + + + | Author | [facility] | | | and [place] | + + + | Organization | [facility] | | | and [...] NA | | | | | FILEMON LIDN | | + + + + + Care Team Providers + +------+ + | Care Scratcher Name | Role | Phone | + +------+ + PCP | Unavailable | + +------+ + Encounter Details +--------+ + + + + | Date | Type | Department | Care Team | Description | +--------+ + + + + | 01/05/ | Hospital | [facility] | | | | 1999 | Encounter | MED CTR XRAY [address] | | | | | | [address] | | | | | | [place] [address] | | | | | | [phone] | | | +--------+ + + + [...] | | | | | [place] [address] | | | | | | [phone] | | | | | | | | +--------+---------+ + + + documented as of this encounter Visit Diagnoses Not on filedocumented in this encounter"
--- OUTSIDE RECORDS SUMMARY | ~2019-02-24 | XMS | Encounter Summary ---
Demographics + + + | Address | [address] | | | [place] [address] | + + + | Home Phone | | + + + | Preferred Language | Unknown | + + + | Marital Status | | + + + | Scientology Affiliation | 1076 | + + + | Race | Unknown | + + + | Ethnic Group | Unknown | + + + Author + + + | Author | [facility] | | | and [place] | + + + | Organization | [facility] | | | and [place] | [...] + + + | Candis [place] | DASH | NA | | | | | FILEMON LIND | | + + + + + Care Team Providers + +------+ + | Care Ship Design Teacher Name | Role | Phone | + +------+ + | Jason Read | PCP | | | MD | | | + +------+ + Reason for Visit +--------+ + | Reason | Comments | +--------+ + | Other | Labs needed prior to appt. | +--------+ + Encounter Details +--------+ + + + + | Date | Type | Department | Care Team | Description | +--------+ + + + + | 11/17/ | Telephone | [facility] | Jorje Rutledge | Other (Labs needed | | 2017 | | [address] | [address] | prior to appt. ) | | | | [place] | [address] [facility] | | | | | [address] | [place] [address] | | | | | [phone] | [phone] | | | | | | | | +--------+ + [...] | | | | | [place] [address] | | | | | | [phone] | | | | | | | | +--------+---------+ + + + documented as of this encounter Visit Diagnoses Not on filedocumented in this encounter"
--- OUTSIDE RECORDS SUMMARY | ~2019-02-24 | XMS | Encounter Summary ---
Demographics + + + | Address | [address] | | | [place] [address] | + + + | Home Phone | | + + + | Preferred Language | Unknown | + + + | Marital Status | | + + + | Sabianism Affiliation | 1076 | + + + | Race | Unknown | + + + | Ethnic Group | Unknown | + + + Author + + + | Author | [facility] | | | and [place] | + + + | Organization | [facility] | | | and [...] Team Providers + +------+ + | Care Lance Crewmember/Mlrs Sergeant Name | Role | Phone | + +------+ + | Parviz Brar DO | PCP | | + +------+ + Encounter Details +--------+ + + + + | Date | Type | Department | Care Team | Description | +--------+ + + + + | 06/16/ | Hospital | [facility] | Conversion | Pain | | 2017 | Encounter | CONVERSION [address] | Transaction, | | | | | [address] | Provider Unknown | | | | | [place], [place] | [phone] | | | | | [address] | | | | | | [phone] | | | +--------+ + + + [...] | | | | | [place] [address] | | | | | | [phone] | | | | | | | | +--------+---------+ + + + documented as of this encounter Procedures + +--------+ + + + | Procedure Name | Priori | Date/Time | Associated Diagnosis | Comments | | | ty | | | | + +--------+ + + + | CT CHEST WO CONTRAST | Routin | 09/08/2011 | | Results for this | | | e | 4:13 AM | | procedure are in the | | | | PDT | | results section. | + +--------+ + + + documented in this encounter Results CT Chest wo Contrast (09/08/2011 4:13 AM PDT) + + | Specimen | [...]
--- OUTSIDE RECORDS SUMMARY | ~2019-02-24 | XMS | Encounter Summary ---
Demographics + + + | Address | [address] | | | [place] [address] | + + + | Home Phone | | + + + | Preferred Language | Unknown | + + + | Marital Status | | + + + | Temple Affiliation | PRE | + + + | Race | White | + + + | Ethnic Group | Not or | + + + Author + + + | Author | [facility] | + + + | Organization | [facility] | + + + | Address | Unknown | + + + | Phone | Unavailable | + + + Support + + +---------+ + | Name | Relationship | Address | Phone | + + +---------+ + | Andrez Lucas | ECON | Unknown | Unavailable | + + +---------+ + Care Team Providers + +------+ + | Care Clinical Pharmacologist Name | Role | Phone | + +------+ + | ZoniaParviz | PCP | | + +------+ + Reason for Visit + + + | Reason | Comments | + + + | Epistaxis | | + + + AUTH/CERT +--------+--------+ + + + + | Status | Reason | Specialty | Diagnoses / | Referred By | Referred To | | | | | Procedures | Contact | Contact | +--------+--------+ + + + + | Closed | | | | | | +--------+--------+ + + + + Encounter Details +--------+ + + + + | Date | Type | Department | Care Team | Description | +--------+ + + + + | 06/09/ | Hospital | [facility] [address] | Roberto Pena, | | | 2013 - | Encounter | [facility] Mailcode: | MD Gabrielle Garces | | | | | [address] | [address] | | | 06/14/ | | [place], | [place], [place] | | | 2012 | | [place] [address] | [address] | | | | | [phone] | [phone] | | | | | | | | | | | | Fredrick Cherry, | | | | | | MD Gabrielle Garces | | | | | | [address] | | | | | | [place], [place] | | | | | | [address] | | | | | | [phone] | | | | | | | [...] + + + | Blood Pressure | 124/76 | 06/14/2012 11:52 AM | | | | | PDT | | + + + + + | Pulse | 110 | 06/14/2012 11:52 AM | | | | | PDT | | + + + + + | Temperature | 37.5 C (99.5 F) | 06/14/2012 11:52 AM | | | | | PDT | | + + + + + | Respiratory Rate | 16 | 06/14/2012 11:52 AM | | | | | PDT | | + + + + + | Oxygen Saturation | 94% | 06/14/2012 11:52 AM | | | | | PDT | | + + + + + | Inhaled Oxygen | - | - | | | Concentration | | | | + + + + + | Weight | 68.5 kg (151 lb 0.2 | 06/14/2012 4:16 AM | | | | oz) | PDT | | + + + + + | Height | 182.9 cm (6') | 06/11/2012 4:18 PM | | | | | PDT | | + + + + + | Body Mass Index | 20.48 | 06/11/2012 4:18 PM | | | | | PDT | | + + + + + documented in this encounter Discharge Summaries Rush Moss MD - 06/14/2012 11:29 AM PDTFormatting of this note might be different f rom the original. INPATIENT PHYSICIAN DISCHARGE SUMMARY Author: RUSH MOSS MD Attending Physician: Fredrick Cherry MD PCP: Parviz Brar DO Admission Date: 06/09/2012 Discharge Date: 14 Jun 2012 Diagnoses Principal Final Diagnosis: 1. Refractory Epistaxis Procedures IR embolization of bilateral internal maxillary arteries. Right open anterior and posterior ethmoid artery ligation, endoscopic sphenopalatine artery ligation. Brief Hospital Course Mr. Lucas is a 76-year-old gentleman with a week long history of recurrent right-sided epistaxis which we were unable to control despite multiple attempts at anterior and posterio r packing, interventional radiology embolization, and blood transfusions. The decision was f inally made to take him to the OR for the procedures mentioned above. This controlled the bl eeding definitively. He did not have any bleeding thereafter. He was slightly tachycardic th ereafter, but his hematocrit was stable and his urine output and blood pressure were normal. He has a history of tachycardia, and so this was not felt to be due to low hematocrit. His packs were left in place and he was discharged with a course of antibiotics until the packs could be removed the following week. He was also evaluated by the respiratory therapy team w ho recommended him for outpatient oxygen therapy. I explained to him face to face that he wa s to wear oxygen continuously at 2.5 liters until further notice. Medications: Current Discharge Medication List START taking these medications Details oxymetazoline 0.05 % Nasal Aerosol, [place] Instill 2 Sprays into each nostril every six hour s as needed (Epistaxis). Use for only 3 days. sodium chloride 0.65 % Nasal Aerosol, [place] Instill 2 Sprays in nose every two hours while awake. CONTINUE these medications which have CHANGED or have new prescriptions Details aspirin chewable 81 mg Oral tablet, chewable Take 1 Tab by mouth once daily. DO NOT RESUME UNTIL CLEARED AT FOLLOW UP APPOINTMENT cephALEXin 500 mg Oral capsule Take 1 Cap by mouth every six hours for 6 days. Indications: Infection prevention while nasal packing is in place Qty: 24 Cap, Refills: 0 oxyCODONE, immediate release, 5 mg Oral tablet Take 1 Tab by mouth every six hours as neede d for severe pain. Qty: 30 Tab, Refills: 0 Comments: Schedule II CONTINUE these medications which have NOT CHANGED Details amLODIPine 5 mg Oral tablet Take 5 mg by mouth once daily in the morning. Indications: HYPE RTENSION ascorbic acid 250 mg Oral tablet Take 250 mg by mouth two times daily. cetirizine 5 mg Oral tablet Take 5 [...] Aerosol Inhaler Inhale 2 Puffs four times daily as needed. loratadine 10 mg Oral tablet Take 10 mg by mouth once daily. magnesium hydroxide 400 mg/5 mL Oral Suspension Take 30 mL by mouth once daily as needed. omeprazole 20 mg Oral capsule,delayed release(DR/EC) Take 20 mg by mouth once daily in the morning. Indications: GASTROESOPHAGEAL REFLUX polyethylene glycol 17 gram/dose Oral Powder Take 17 g by mouth once daily. tamsulosin 0.4 mg Oral capsule,extended release 24hr Take 0.4 mg by mouth once daily in the evening. Indications: BENIGN PROSTATIC HYPERTROPHY temazepam 15 mg Oral capsule Take 15 mg by mouth once daily at bedtime as needed. Diet Regular Regular diet- There are no restrictions to your diet. You may eat or drink whatever you pr efer, though healthy food choices are recommended. Activity No driving while on narcotic pain medications. You may shower immediately, do not let packs fall out. No submerging your incision (no tub baths, no swimming pools, hot tubs, etc). If you are having nasal bleeding, increased drainage, pain, redness, swelling, or fever > 101.4 F or any other concerning symptoms, call Dr. Cherry's clinic at [phone]. If you fee l you are having an emergency, call 911 or go to the nearest emergency room. Other Discharge Orders and Instructions 1. FACILITY MD TO FOLLOW 2. PPD PER FACILITY PROTOCOL upon arrival 3. PHYSICAL THERAPY evaluate and treat 4. OCCUPATIONAL THERAPY evaluate and treat 5. SPEECH THERAPY evaluate and treat as appropriate. 6. VITAL SIGNS per protocol. 7. Maintain nasal packing. Continue keflex while packing in place. 8. Pt should return to see Dr. Jose Angel Easton on Wednesday for packing removal at 2:30 pm. [facility] [phone] for questions. Destination: [facility] Condition on Discharge Good Vitals on discharge: Ht 182.9 cm (6')( < 3 %ile), Wt 68.5 kg (151 lbs 0.2 oz)( < 3 %ile), B P 92/65, Pulse 98, Temperature 37.2 C (99 F), RR 16, SpO2 89%, BMI 20.48 kg/(m^2). Outstanding labs/studies: None Discharging Physician: RUSH MOSS MD Attending Physician: Fredrick Cherry MD documented in thi s encounter Discharge Instructions Instructions Cira Rahman RN - 06/14/2012Patient Education Materials: see avs Additional Instructions: none Discharge Nurse: CIRA RAHMAN RN Date: 06/14/2012 Discharge Time: 12:01 PM documented in this encounter Medications at Time of Discharge + + + +---------+ + + | Medication | Sig | Dispensed | Refills | Start | End Date | | | | | | Date | | + + + +---------+ + + | amLODIPine 5 mg | Take 5 mg by mouth | | 0 | | | | Oral | once daily in the | | | | | | tabletIndications: | morning. | | | | | | hypertension | Indications: | | | | | | | HYPERTENSION | | | | | + + + +---------+ + + | ascorbic acid 250 | Take 250 mg by mouth | | 0 | | | | mg Oral tablet | two times daily. | | | | | + + + +---------+ + + | aspirin chewable | Take 1 Tab by mouth | | 0 | 06/15/19 | | | 81 mg Oral tablet, | once daily. DO NOT | | | 13 | | | chewable | RESUME UNTIL CLEARED | | | | | | | AT FOLLOW UP | | | | | | | APPOINTMENT | | | | | + + + +---------+ + + | cetirizine 5 mg | Take 5 mg by mouth | | 0 | | | | Oral tablet | two times daily. | | | | | + + + +---------+ + + | docusate sodium | Take 100 mg by mouth | | 0 | | | | 100 mg Oral capsule | twice daily as | | | | | | | needed. | | | | | + + + +---------+ + + | ferrous sulfate | Take 325 mg by mouth | | 0 | | | | 325 mg (65 mg iron) | two times daily. | | | | | | Oral tablet | | | | | | + + + +---------+ + + | fluticasone 220 | Inhale 1 Puff two | | 0 | | | | mcg/actuation | times daily. | | | | | | Inhalation Aerosol | | | | | | | (Aero) | | | | | | + + + +---------+ + + | ipratropium 17 | Inhale 2 Puffs four | | 0 | | | | mcg/actuation | times daily as | | | | | | Inhalation HFA | needed. | | | | | | Aerosol Inhaler | | | | | | + + + +---------+ + + | loratadine 10 mg | Take 10 mg by mouth | | 0 | | | | Oral tablet | once daily. | | | | | + + + +---------+ + + | magnesium | Take 30 mL by mouth | | 0 | | | | hydroxide 400 mg/5 | once daily as | | | | | | mL Oral Suspension | needed. | | | | | + + + +---------+ + + | omeprazole 20 mg | Take 20 mg by mouth | | 0 | | | | Oral capsule,delayed | once daily in the | | | | | | | morning. | | | | | | release(/EC)Indica | Indications: | | | | | | tions: | GASTROESOPHAGEAL | | | | | | gastroesophageal | REFLUX | | | | | | reflux disease | | | | | | + + + +---------+ + + | oxyCODONE, | Take 1 Tab by mouth | 30 Tab | 0 | 06/15/19 | | | immediate release, 5 | every six hours as | | | 13 | | | mg Oral tablet | needed for severe | | | | | | | pain. | | | | | + + + +---------+ + + | oxymetazoline 0.05 | Instill 2 Sprays | | 0 | 04/23/20 | | | % Nasal Aerosol, | into each nostril | | | 13 | | | [place] | every six hours as | | | | | | | needed (Epistaxis). | | | | | | | Use for only 3 days. | | | | | + + + +---------+ + + | polyethylene | Take 17 g by mouth | | 0 | | | | glycol 17 gram/dose | once daily. | | | | | | Oral Powder | | | | | | + + + +---------+ + + | sodium chloride | Instill 2 Sprays in | | 0 | 04/23/20 | | | 0.65 % Nasal | nose every two hours | | | 13 | | | Aerosol, [place] | while awake. | | | | | + + + +---------+ + + | tamsulosin 0.4 mg | Take 0.4 mg by mouth | | 0 | | | | Oral | once daily in the | | | | | | capsule,extended | evening. | | | | | | release | Indications: BENIGN | | | | | | 24hrIndications: | PROSTATIC | | | | | | benign prostatic | HYPERTROPHY | | | | | | hyperplasia | | | | | | + + + +---------+ + + | temazepam 15 mg | Take 15 mg by mouth | | 0 | | | | Oral capsule | once daily at | | | | | | | bedtime as needed. | | | | | + + + +---------+ + + | cephALEXin 500 mg | Take 1 Cap by mouth | 24 Cap | 0 | 06/15/19 | | | Oral | every six hours for | | | 13 | 3 | | capsuleIndications: | 6 days. Indications: | | | | | | Infection prevention | Infection | | | | | | while nasal packing | prevention while | | | | | | is in place | nasal packing is in | | | | | | | place | | | | | + + + +---------+ + + documented as of this encounter Progress Notes Fredrick Cherry MD - 06/14/2012 10:44 AM PDT PATIENT NAME: Diego Lucas [facility] MR#: [id number] : 1935 PRIMARY CARE PROVIDER: Parviz Brar, DO BP 92/65 | Pulse 98 | Temp 37.2 C (99 F) | RR 16 | Ht 1.829 m (6') | Wt 68.5 kg (151 lb 0.2 oz) | SpO2 89% | BMI 20.48 kg/(m^2) I have reviewed the resident's note for this day's hospitalization. I have examined Mr. العراقي rehouse. I note: Mr. Lucas feels "pretty good." He notes no epistaxis. He has not no hallie any hemoptysis. He has not had any fevers, chills or sweats. He has some mild tachycar anushka, but does not feel this with palpitations. He denies any shortness of breath or breathi ng difficulties that is new, though he uses supplemental oxygen at his nursing home [facility]. ASSESSMENT: Mr. Lucas remains hospitalized for epistaxis with significant blood loss. He is not longer bleeding and has a pack in place. He has had some tachycardia, which is m ild, with a brief run of higher SVT last night. His breathing is stable and he feels comfor table even off supplemental oxygen most of the time. PLAN: I agree with the resident's plan with the following modifications: We will look to discharge today. Continue hydration. Follow up with Jose Angel Easton MD for pack removal on Wednesday. Fredrick Cherry M.D. Oenologist Laryngology and Head & Neck Surgery [facility] DEPARTMENT: ENT LARYNGOLOGY P[facility] - [phone] Place of Service: [id number] - Date of Service: 06/14/2012 CSN: [id number] Suggested Modifiers: GC - Resident Involved Suggested Level of Care: 42891 - Discharge Day mgmt up to 30 min Fredrick Villasenor MD - 06/13/2012 11:21 PM PDT PATIENT NAME: Diego Lucas [facility] MR#: [id number] : 1935 PRIMARY CARE PROVIDER: Parviz Brar, DO BP 139/69 | Pulse 106 | Temp 36.9 C (98.4 F) | RR 15 | Ht 1.829 m (6') | Wt 68.04 kg (1 50 lb) | SpO2 93% | BMI 20.34 kg/(m^2) I have reviewed the resident's note for this day's hospitalization. I have examined Mr. العراقي rehouse. I note: Mr. Lucas feels "OK." He has not noted epistaxis. He has not noted a ny hemoptysis. He notes no visual changes. On exam, his extraoccular movements are intact an d full bilaterally. His oropharynx is clear. There is a large pack in place in the right n are. ASSESSMENT: Mr. Lucas remains hospitalized for epistaxis with recent anterior and post erior ethmoid artery ligation and transendoscopic sphenopalatine artery ligation. He has no bleeding. PLAN: I agree with the resident's plan with the following modifications: Look to arrange transfer back to his facility tomorrow if still not bleeding. Fredrick Cherry M.D. Oenologist Laryngology and Head & Neck Surgery [facility] DEPARTMENT: ENT LARYNGOLOGY [facility] - [phone] Place of Service: [id number] - Date of Service: 06/13/2012 CSN: [id number] Suggested Modifiers: GC - Resident Involved Suggested Level of Care: 60713 - Subsequent, Prob Foc/low complex 15 min Rush Mahmood MD - 06/13/2012 12:16 PM PDT [facility] Department of Surgery ENT Head & Neck Surgery Progress Note Author: Omar Moss MD Attending Physician: Fredrick Cherry MD Hospital Day #4 SUBJECTIVE: Interval history: Tachy o/n. Feeling dizzy with standing. OBJECTIVE: Vital Signs: Temp Av.8 C (98.3 F) Min: 36.4 C (97.5 F) Max: 37 C (98.6 F) Pulse Av.1 Min: 107 Max: 129 Systolic (24hrs), Av mmHg, Min:101 mmHg, Max:138 mmHg Diastolic (24hrs), Av mmHg, Min:60 mmHg, Max:75 mmHg Resp Av.5 Min: 16 Max: 18 SpO2 Av.9 % Min: 89 % Max: 94 % Intake/Output Summary (Last 24 hours) at 06/13/12 1216 Last data filed at 06/13/12 1000 Gross per 24 hour Intake 2275 ml Output 2000 ml Net 275 ml Physical Exam: General: alert, oriented, in NAD HEENT: Nasal packing in place, OP clear, no signs of continued bleed Cardiovascular: tachycardic Respiratory: breathing unlabored Labs/Cultures/Pathology: Lab Results Component Value Date WBC 11.4* 06/13/2012 HB 7.1* 06/13/2012 HCT 22.2* 06/13/2012 PLT 349 06/13/2012 Lab Results Component Value Date NA 139 06/11/2012 K 4.0 06/11/2012 CL 103 06/11/2012 BICARB 26 06/11/2012 BUN 14 06/11/2012 CR 0.75 06/11/2012 GLU 113* 06/11/2012 CA 8.2* 06/11/2012 PO4 3.6 06/11/2012 Imaging/Diagnostic Studies: n/a ASSESSMENT: Diego Lucas is a 76 y.o. male patient with difficult epistaxis s/p bilateral VANIA embolization by IR followed by right open anterior and posterior ethmoid artery ligation , endoscopic sphenopalatine artery ligation on 06/11. Doing well now with no signs of bleed t michell with low crit and orthostasis. PLAN: -Packing to remain in place. Keflex while packing in. -Will discuss need for transfusion with team but likely will wait for recheck tomorrow. -Recheck crit tomorrow am Dispo: Back to [facility] tomorrow. Dr. Fredrick Cherry MD is the attending of record for this patient encounter. RUSH MOSS MD PGY-1, Plastic and Reconstructive Surgery pgr [phone] Diagnoses: 784.7 Epistaxis 248979 Anemia Meds: amLODIPine (aka NORVASC) tablet 5 mg, 5 mg, Oral, QAM ascorbic acid tablet 250 mg, 250 mg, Oral, BID ceFAZolin (aka ANCEF) IV 1 g, 1 g, Intravenous, Q8H cetirizine (aka ZYRTEC) tablet 5 mg, 5 mg, Oral, BID docusate sodium (aka COLACE) capsule 100 mg, 100 mg, Oral, BID PRN fentaNYL citrate (PF) (aka SUBLIMAZE) injection 25-50 mcg, 25-50 mcg, Intravenous, Q2H PRN ferrous sulfate tablet 325 mg total salt, 325 mg total salt, Oral, DAILY fluticasone (aka FLOVENT) 220 mcg/actuation inhaler 1 Puff, 1 Puff, Inhalation, BID ipratropium (aka ATROVENT) 17 mcg/actuation inhaler 2 Puff, 2 Puff, Inhalation, QID PRN loratadine (aka CLARITIN) tablet 10 mg, 10 mg, Oral, DAILY magnesium hydroxide (aka MILK OF MAGNESIA) suspension 30 mL, 30 mL, Oral, DAILY PRN omeprazole (aka PRILOSEC) capsule 20 mg, 20 mg, Oral, QAM ondansetron (aka ZOFRAN) injection 4 mg, 4 mg, Intravenous, Q12H PRN oxyCODONE (immediate release) (aka ROXICODONE) tablet 5 mg, 5 mg, Oral, Q6H PRN oxymetazoline (aka AFRIN) 0.05 % nasal spray 2 [place], 2 [place], both nostrils, Q6H polyethylene glycol (aka MIRALAX) powder 17 g, 17 g, Oral, DAILY promethazine (aka PHENERGAN) injection 12.5 mg, 12.5 mg, Intravenous, Q6H PRN sodium chloride (aka OCEAN) 0.65 % nasal spray 2 [place], 2 [place], Nasal, Q2H [place] tamsulosin (aka FLOMAX) capsule 0.4 mg, 0.4 mg, Oral, QPM temazepam (aka RESTORIL) capsule 15 mg, 15 mg, Oral, HS PRN Fredrick Villasenor MD - 06/12/2012 9:17 PM PDT PATIENT NAME: Diego Lucas [facility] MR#: [id number] : 1935 PRIMARY CARE PROVIDER: Parviz Brar DO BP 119/70 | Pulse 107 | Temp 37 C (98.6 F) | RR 18 | Ht 1.829 m (6') | Wt 68.04 kg (150 lb) | SpO2 90% | BMI 20.34 kg/(m^2) I have reviewed the resident's note for this day's hospitalization. I have examined Mr. العراقي rehouse. I note: Mr. Lucas is comfortable. He is not bleeding. He has not noted any hemoptysis. He notes no visual problems. EXAM: The right nare has a pack in place. There is no bleeding noted. The oropharynx is clear. The right eye has full movement. The pupils are equal. Vision is grossly intact on the il ght. There is no red desaturation. The jimenez incision is closed, though it weeps a small a mount of serosanguinous fluid. ASSESSMENT: Mr. Lucas remains hospitalized for epistaxis that appears controlled at th is time. He is tilerting the packing. PLAN: I agree with the resident's plan with the following modifications: Ambulate. Begin to resume activities of daily living. Observe for resumed bleeding. Fredrick Cherry M.D. Oenologist Laryngology and Head & Neck Surgery [facility] DEPARTMENT: ENT LARYNGOLOGY [facility] - [phone] Place of Service: [id number] - Date of Service: 06/12/2012 CSN: [id number] Suggested Modifiers: GC - Resident Involved Suggested Level of Care: 75374 - Subsequent, Prob Foc/low complex 15 min arius Barriga MD - 06/12/2012 10:20 AM PDT Otolaryngology / Head and Neck Progress Note Hospital Day:3 Author; DARIUS BARRIGA MD Attending Physician: Fredrick Cherry MD Interval History: Went to OR yesterday for control of epistaxis. OR was successful, no blee ding since his return. He reports feeling significantly better today. He has been taking sma ll amounts of PO but tolerating well. Last Vitals: Ht 182.9 cm (6')( < 3 %ile), Wt 68.04 kg (150 lbs)( < 3 %ile), BP 143/75, Pulse 102, Temper ature 36.7 C (98.1 F), RR 18, SpO2 95%, BMI 20.34 kg/(m^2). 24 Hour Vitals: Temp Av.7 C (98.1 F) Min: 36.3 C (97.3 F) Max: 37.2 C (99 F) Pulse Av.6 Min: 101 Max: 119 Systolic (24hrs), Av mmHg, Min:127 mmHg, Max:145 mmHgDiastolic (24hrs), Av mmHg, M in:75 mmHg, Max:95 mmHg SpO2 Av.1 % Min: 92 % Max: 100 % Resp Av.8 Min: 16 Max: 28 Intake/Output Summary (Last 24 hours) at 06/12/12 1020 Last data filed at 06/12/12 0900 Gross per 24 hour Intake 4384.59 ml Output 2200 ml Net 2184.59 ml Physical Exam: Gen: awake and alert, NAD HEENT: merocel in right nare, jimenez incision is intact with serosanguinous ooze where penro se was removed; oropharynx clear Resp: comfortable, unlabored, no stridor Medications: Current facility-administered medications:acetaminophen (aka TYLENOL) tablet 650 mg, 650 mg , Oral, PRN, Darius Barriga MD amLODIPine (aka NORVASC) tablet 5 mg, 5 mg, Oral, QAM, Oc Cochran MD, 5 mg at 06/12/12 1 003 ascorbic acid tablet 250 mg, 250 mg, Oral, BID, Oc Cochran MD, 250 mg at 06/12/12 1003 ceFAZolin (aka ANCEF) IV 1 g, 1 g, Intravenous, Q8H, Mckenzie Myers MD, 1 g at 06/12/12 0919 cetirizine (aka ZYRTEC) tablet 5 mg, 5 mg, Oral, BID, Oc Cochran MD, 5 mg at 06/12/12 10 02 docusate sodium (aka COLACE) capsule 100 mg, 100 mg, Oral, BID PRN, Oc Cochran MD fentaNYL citrate (PF) (aka SUBLIMAZE) injection 25-50 mcg, 25-50 mcg, Intravenous, Q2H PRN, Darius Barriga MD, 25 mcg at 06/11/12 0938 ferrous sulfate tablet 325 mg total salt, 325 mg total salt, Oral, DAILY, Oc Cochran MD, 325 mg total salt at 06/12/12 1003 fluticasone (aka FLOVENT) 220 mcg/actuation inhaler 1 Puff, 1 Puff, Inhalation, BID, Fredrick Cherry MD, 1 Puff at 06/12/12 1014 ipratropium (aka ATROVENT) 17 mcg/actuation inhaler 2 Puff, 2 Puff, Inhalation, QID PRN, Crystal Cherry MD loratadine (aka CLARITIN) tablet 10 mg, 10 mg, Oral, DAILY, cO Cochran MD, 10 mg at 05/24 03/06 1003 magnesium hydroxide (aka MILK OF MAGNESIA) suspension 30 mL, 30 mL, Oral, DAILY PRN, Oc Cochran MD omeprazole (aka PRILOSEC) capsule 20 mg, 20 mg, Oral, QAM, Oc Cochran MD, 20 mg at 06/12 1003 ondansetron (aka ZOFRAN) injection 4 mg, 4 mg, Intravenous, Q12H PRN, Oc Cochran MD, 4 m g at 06/11/12 1005 oxyCODONE (immediate release) (aka ROXICODONE) tablet 5 mg, 5 mg, Oral, Q6H PRN, Oc osorio MD, 5 mg at 06/12/12 0452 oxymetazoline (aka AFRIN) 0.05 % nasal spray 2 [place], 2 [place], both nostrils, Q6H, Oc Cochran MD, 2 [place] at 06/11/12 0218 polyethylene glycol (aka MIRALAX) powder 17 g, 17 g, Oral, DAILY, Oc Cochran MD, 17 g at 06/10/12 0837 promethazine (aka PHENERGAN) injection 12.5 mg, 12.5 mg, Intravenous, Q6H PRN, Oc Cochran MD, 12.5 mg at 06/10/12 2210 sodium chloride (aka OCEAN) 0.65 % nasal spray 2 [place], 2 [place], Nasal, Q2H WA, Mckenzie Myers MD, 2 [place] at 06/12/12 0127 tamsulosin (aka FLOMAX) capsule 0.4 mg, 0.4 mg, Oral, QPM, Oc Cochran MD, 0.4 mg at 05/24 2221 temazepam (aka RESTORIL) capsule 15 mg, 15 mg, Oral, HS PRN, Oc Cochran MD, 15 mg at 0234 Labs: Chemistries: Recent Labs Basename 06/11/12 0240 06/09/12 2055 NA 139 136 K 4.0 4.2 CL 103 100.0 BICARB 26 -- BUN 14 10 CR 0.75 0.8 CA 8.2* -- MG -- -- PO4 3.6 -- CBC with diff: Recent Labs Basename 06/11/12 2332 06/11/12 1155 06/11/12 0402 06/11/12 0240 WBC 13.0* 11.0 -- 13.2* HB 7.8* 8.1* 6.3* -- HCT 24.2* 24.9* -- 20.6* PLT -- 371 -- -- NEUTROPERC -- -- -- -- BANDPCT -- -- -- -- LYMPHPERC -- -- -- -- MONOPERC -- -- -- -- BASOPERC -- -- -- -- EOSPERC -- -- -- -- Assessment and Plan: 76 y.o. male with recurrent right epistaxis, resistant to IR emboliza tion and packing measures, now doing well s/p right open anterior and posterior ethmoid maurice ry ligation, endoscopic sphenopalatine artery ligation. Hct stable after transfusion of two units yesterday. Patient has history of COPD, and likely has O2 sats in mid high 80s at base line. - continue nasal packing with merocel, abx while packs are in - advance diet as tolerated - oxycodone for pain control - will likely d/c tomorrow as long as no more bleeding This patient was seen and examined on ENT rounds, and our team agrees with this assessment and plan. DARIUS BARRIGA MD Otolaryngology - Head and Neck Surgery PGY 2 Hospital Day:3 Attending Physician: Fredrick Cherry MD iaoMckenzie MD - 06/11/2012 7:25 PM PDTINPATIENT BRIEF OPERATIVE NOTE Procedure Date: 06/11/2012 Author: MCKENZIE MYERS MD Attending Physician: Fredrick Cherry MD Assistants: Jose Angel Easton MD, Janeth Casiano MD, Mckenzie Myers MD Prior to the beginning of the procedure, the team paused to verify the patient s identity , the procedure to be performed (in accordance with the consent,) and the correct side/site. The patient was positioned appropriately. All relevant images and results were properly lab eled and displayed. We addressed antibiotic prophylaxis and fluids for irrigation as applica ble to this patient. Any safety precautions were addressed. Preoperative Diagnosis: recurrent epistaxis Postoperative Diagnosis: same Procedure Performed: right open anterior and posterior ethmoid artery ligation, endoscopic sphenopalatine artery ligation Estimated Blood Loss: 10cc Specimens: none Complications: none Drains: shea Disposition: stable Findings: right anterior and posterior ethmoid and sphenopalatine arteries identified and c lipped/ligated MCKENZIE MYERS MD rdhara, Jose Angel Knox MD - 0 06/11/2012 11:10 AM PDTOTO HNS Pt with refractory epistaxis. Had bilateral VANIA ligation yesterday. Recurrent bleeding th is am. Was not bleeding at time of initial exam, but paged to bedside for bleeding at appro ximately 0930. Blood pressure 136/91, pulse 118, temperature 36.7 C (98.1 F), resp. rate 18, SpO2 99.0 0%. Awake. Distressed. Galan in right nare with merocel in vestibule. Merocel in left nare. Oropharynx with clot. No active bleeding. Left merocel removed. Nasal passage clear. Right merocel removed. Galan inflated to 25 mL. ~ 2.5 yards of 1/2 inch NuGauze packed around galan balloon. Oropharynx examined. Some residual coagulum but no active bleeding. Assessment/Plan: 1. Transfusing currently for Hgb 6.8 with tachycardia (was 10.7 on admission) 2. NPO. 3. Has tolerated galan overnight, so do not plan to transfer level of care currently. Con tinuous pulse-oximetry. 4. Consented for endoscopic sphenopalatine ligation and jimenez incision with ligation of an terior and posterior ethmoids. To OR this afternoon. Ancef while packing in place. JOSE ANGEL EASTON MD arius Barriga M D - 06/11/2012 10:20 AM PDT Otolaryngology / Head and Neck Progress Note Hospital Day:2 Author; DARIUS BARRIGA MD Attending Physician: Fredrick Cherry MD Interval History: He underwent embolization of bilateraly internal maxillary arteries yeste rd. He has continued to bleed from the nose overnight and this morning. Overnight a galan catheter was placed in his nasopharynx and a merocel placed anteriorly. His Hct dropped from 24 to 20 so 2 units PBRCs were ordered and given. Also bolused 1L LR. His BP and UOP were s table, though tachycardic to 110s at baseline, up to 140s while nasal packing being manipula hallie. Last Vitals: BP 127/78, Pulse 119, Temperature 36.7 C (98.1 F), RR 18, SpO2 91%. 24 Hour Vitals: Temp Av.1 C (98.7 F) Min: 36.5 C (97.7 F) Max: 38 C (100.4 F) Pulse Av.1 Min: 89 Max: 135 Systolic (24hrs), Av mmHg, Min:109 mmHg, Max:154 mmHgDiastolic (24hrs), Av mmHg, M in:66 mmHg, Max:86 mmHg SpO2 Av.9 % Min: 89 % Max: 99 % Resp Av.3 Min: 7 Max: 22 Intake/Output Summary (Last 24 hours) at 06/11/12 1020 Last data filed at 06/11/12 0822 Gross per 24 hour Intake 2837.83 ml Output 2100 ml Net 737.83 ml Physical Exam: Gen: awake and alert, very uncomfortable HEENT: bleeding from right side of nose with 20 Fr gal[address] clamped in place; clots in orophar ynx Resp: comfortable, unlabored, no stridor Medications: Current facility-administered medications:acetaminophen (aka TYLENOL) tablet 650 mg, 650 mg , Oral, PRN, Darius Barriga MD amLODIPine (aka NORVASC) tablet 5 mg, 5 mg, Oral, QAM, Oc Cochran MD, 5 mg at 06/10/12 0 837 ascorbic acid tablet 250 mg, 250 mg, Oral, BID, Oc Cochran MD, 250 mg at 06/10/12 4803 ceFAZolin (aka ANCEF) IV 1 g, 1 g, Intravenous, Q8H, Mckenzie Myers MD cetirizine (aka ZYRTEC) tablet 5 mg, 5 mg, Oral, BID, Oc Cochran MD, 5 mg at 06/10/12 22 33 diphenhydrAMINE (aka BENADRYL) capsule 50 mg, 50 mg, Oral, PRN, Darius Barriga MD docusate sodium (aka COLACE) capsule 100 mg, 100 mg, Oral, BID PRN, Oc Cohcran MD fentaNYL citrate (PF) (aka SUBLIMAZE) injection 25-50 mcg, 25-50 mcg, Intravenous, Q2H PRN, Darius Barriga MD, 25 mcg at 06/11/12 0938 ferrous sulfate tablet 325 mg total salt, 325 mg total salt, Oral, DAILY, Oc Cochran MD, 325 mg total salt at 06/10/12 0837 fluticasone (aka FLOVENT) 220 mcg/actuation inhaler 1 Puff, 1 Puff, Inhalation, BID, Fredrick Cherry MD, 1 Puff at 06/10/12 1047 ipratropium (aka ATROVENT) 17 mcg/actuation inhaler 2 Puff, 2 Puff, Inhalation, QID PRN, Crystal Cherry MD lactated ringers IV, 125 mL/hr, Intravenous, CONTINUOUS, Darius Barriga MD, Last Rate: 1 25 mL/hr at 06/11/12 0155, 125 mL/hr at 06/11/12 0155 loratadine (aka CLARITIN) tablet 10 mg, 10 mg, Oral, DAILY, Oc Cochran MD, 10 mg at 05/23 11/04 0837 magnesium hydroxide (aka MILK OF MAGNESIA) suspension 30 mL, 30 mL, Oral, DAILY PRN, Oc Cochran MD morphine injection 2 mg, 2 mg, Intravenous, ONCE, Mckenzie Myers MD omeprazole (aka PRILOSEC) capsule 20 mg, 20 mg, Oral, QAM, Oc Cochran MD, 20 mg at 06/10 0837 ondansetron (aka ZOFRAN) injection 4 mg, 4 mg, Intravenous, Q12H PRN, Oc Cochran MD, 4 m g at 06/11/12 1005 oxyCODONE (immediate release) (aka ROXICODONE) tablet 5 mg, 5 mg, Oral, Q6H PRN, Oc osorio MD, 5 mg at 06/10/12 1804 oxymetazoline (aka AFRIN) 0.05 % nasal spray 2 [place], 2 [place], both nostrils, Q6H, Oc Cochran MD, 2 [place] at 06/11/12 0218 polyethylene glycol (aka MIRALAX) powder 17 g, 17 g, Oral, DAILY, Oc Cochran MD, 17 g at 06/10/12 0837 promethazine (aka PHENERGAN) injection 12.5 mg, 12.5 mg, Intravenous, Q6H PRN, Oc Cochran MD, 12.5 mg at 06/10/12 2210 sodium chloride (aka OCEAN) 0.65 % nasal spray 2 [place], 2 [place], Nasal, Q2H WA, Mckenzie Myers MD, 2 [place] at 06/10/12 2234 tamsulosin (aka FLOMAX) capsule 0.4 mg, 0.4 mg, Oral, QPM, Oc Cochran MD, 0.4 mg at 05/23 11/04 2233 temazepam (aka RESTORIL) capsule 15 mg, 15 mg, Oral, HS PRN, Oc Cochran MD, 15 mg at 0234 Labs: Chemistries: Recent Labs Basename 06/11/12 0240 06/09/12 2055 NA 139 136 K 4.0 4.2 CL 103 100.0 BICARB 26 -- BUN 14 10 CR 0.75 0.8 CA 8.2* -- MG -- -- PO4 3.6 -- CBC with diff: Recent Labs Basename 06/11/12 0402 06/11/12 0240 06/10/12 2341 06/10/12 0648 WBC -- 13.2* 14.9* 10.9 HB 6.3* 6.8* 7.5* -- HCT -- 20.6* 23.6* 24.8* PLT -- -- 457* -- NEUTROPERC -- -- -- -- BANDPCT -- -- -- -- LYMPHPERC -- -- -- -- MONOPERC -- -- -- -- BASOPERC -- -- -- -- EOSPERC -- -- -- -- Assessment and Plan: 76 y.o. male with recurrent right epistaxis, resistant to IR emboliza tion and packing measures, now s/p 2 units pRBCs. Patient has history of COPD, and likely h as O2 sats in mid high 80s at baseline. No c/o dyspnea or respiratory distress. - to OR for control of epistaxis today, added on for 3PM; consent obtained - check new CBC post transfusion - NPO - cont abx while packs in - zofran, phenergan for nausea This patient was seen and examined on ENT rounds, and our team agrees with this assessment and plan. DARIUS BARRIGA MD Otolaryngology - Head and Neck Surgery PGY 2 Hospital Day:2 Attending Physician: Fredrick Cherry MD Blane, Oc Domingo MD - 06/10/2012 5:35 AM PDT Otolaryngology / Head and Neck Surgery Progress Note Date: 06/10/2012 Hospital Day:1 Author; OC COCHRAN MD Attending Physician: Fredrick Cherry MD Interval Hx: Desaturations to mild 80s overnight - patient denied dyspnea and was sleeping comfortably. Mild drainage anteriorly despite bilateral packing per nursing overnight Patient denies current bleeding into oropharynx or out of nose. Medications: Current facility-administered medications:amLODIPine (aka NORVASC) tablet 5 mg, 5 mg, Oral, QAM, Oc Cochran MD ascorbic acid tablet 250 mg, 250 mg, Oral, BID, Oc Cochran MD cephALEXin (aka KEFLEX) capsule 500 mg, 500 mg, Oral, Q6H, Oc Cochran MD, 500 mg at 05/23 11/04 0404 cetirizine (aka ZYRTEC) tablet 5 mg, 5 mg, Oral, BID, Oc Cochran MD docusate sodium (aka COLACE) capsule 100 mg, 100 mg, Oral, BID PRN, Oc Cochran MD ferrous sulfate tablet 325 mg total salt, 325 mg total salt, Oral, DAILY, Oc Cochran MD fluticasone (aka FLOVENT) 220 mcg/actuation inhaler 1 Puff, 1 Puff, Inhalation, BID, Fredrick Cherry MD, 1 Puff at 06/10/12 0224 ipratropium (aka ATROVENT) 17 mcg/actuation inhaler 2 Puff, 2 Puff, Inhalation, QID PRN, Crystal Cherry MD lactated ringers IV, 100 mL/hr, Intravenous, CONTINUOUS, Oc Cochran MD, Last Rate: 100 m L/hr at 06/10/12212, 100 mL/hr at 06/10/12212 loratadine (aka CLARITIN) tablet 10 mg, 10 mg, Oral, DAILY, Oc Cochran MD magnesium hydroxide (aka MILK OF MAGNESIA) suspension 30 mL, 30 mL, Oral, DAILY PRN, Oc Cochran MD omeprazole (aka PRILOSEC) capsule 20 mg, 20 mg, Oral, QAM, Oc Cochran MD ondansetron (aka ZOFRAN) injection 4 mg, 4 mg, Intravenous, Q12H PRN, Oc Cochran MD oxyCODONE (immediate release) (aka ROXICODONE) tablet 5 mg, 5 mg, Oral, Q6H PRN, Oc osorio MD, 5 mg at 06/10/12216 oxymetazoline (aka AFRIN) 0.05 % nasal spray 2 [place], 2 [place], both nostrils, Q6H, Oc Cochran MD, 2 [place] at 06/10/12214 polyethylene glycol (aka MIRALAX) powder 17 g, 17 g, Oral, DAILY, Oc Cochran MD promethazine (aka PHENERGAN) injection 12.5 mg, 12.5 mg, Intravenous, Q6H PRN, Oc Cochran MD tamsulosin (aka FLOMAX) capsule 0.4 mg, 0.4 mg, Oral, QPM, Oc Cochran MD temazepam (aka RESTORIL) capsule 15 mg, 15 mg, Oral, HS PRN, Oc Cochran MD, 15 mg at 0234 Last Vitals: BP 114/65 | Pulse 107 | Temp 36.8 C (98.2 F) | RR 18 | SpO2 89% O2 Delivery Device: Oxymask (06/10/12 0352) 24 Hour Vital Min/Max: Systolic (24hrs), Av mmHg, Min:114 mmHg, Max:141 mmHgDiastolic (24hrs), Av mmHg, M in:65 mmHg, Max:78 mmHgPulse Av.9 Min: 96 Max: 107 Temp Av.7 C (98 F) Min: 36.5 C (97.7 F) Max: 36.8 C (98.2 F) Resp Av.5 Min: 18 Max: 20 SpO2 Av.4 % Min: 88 % Max: 96 % Intake/Output Summary (Last 24 hours) at 06/10/12 0536 Last data filed at 06/10/12 023 Gross per 24 hour Intake 10 ml Output 225 ml Net -215 ml Physical Exam: Awake, alert, NAD Bilateral merocels in place; right merocel is saturated with blood, left is clean. No activ e bleeding. OP clear. Labs: CBC with diff last 72 hours (or 3 results) Recent Labs Basename 06/10/12 0648 06/09/12205406/08/12 0627 WBC 10.9 -- 9.1 HB 8.0* 8.8* 8.3* HCT 24.8* 26* 25.8* PLT 380 -- -- NEUTROPERC -- -- 78* BANDPCT -- -- -- LYMPHPERC -- -- 12* MONOPERC -- -- 6 BASOPERC -- -- 0 EOSPERC -- -- 3 Chemistries: Last 72 Hours (or 3 results): Recent Labs Basename 06/09/12205406/07/122155 NA 136 138 K 4.2 4.4 CL 100.0 103.0 BICARB -- -- BUN 10 20 CR 0.8 0.9 CA -- -- MG -- -- PO4 -- -- Assessment and Plan: 76 y.o. male with recurrent right epistaxis, now s/p bilateral merocels. Hct drop of 2 pts but may be secondary to dilution with IVF. Patient has history of COPD, and likely has O2 sa ts in mid high 80s at baseline. No c/o dyspnea or respiratory distress. - cont abx while packs in - cont NPO - spoke to IR, plan to embolize right side noon - sarah collinsergan for nausea OC COCHRAN MD Otolaryngology Head and Neck Surgery PGY2 pager [phone] documented in this enco unter Plan of Treatment Not on filedocumented as of this encounter Procedures + +--------+ + + + | Procedure Name | Priori | Date/Time | Associated Diagnosis | Comments | | | ty | | | | + +--------+ + + + | PROCEDURE NOTE | Routin | 03/28/2015 | | Results for this | | | e | 10:56 PM | | procedure are in the | | | | PST | | results section. | + +--------+ + + + | PROCEDURE NOTE | Routin | 03/28/2015 | | Results for this | | | e | 10:54 PM | | procedure are in the | | | | PST | | results section. | + +--------+ + + + | 12 LEAD ECG | Urgent | 06/13/2012 | | Results for this | | | | 7:43 PM | | procedure are in the | | | | PDT | | results section. | + +--------+ + + + | RAINBOW HOLD TUBE - | Urgent | 06/13/2012 | | | | PURPLE TOP | | 7:17 PM | | | | | | PDT | | | + +--------+ + + + | TROPONIN I, PLASMA | Urgent | 06/13/2012 | | Results for this | | | | 7:17 PM | | procedure are in the | | | | PDT | | results section. | + +--------+ + + + | BASIC METABOLIC SET | Urgent | 06/13/2012 | | Results for this | | (NA, K, CL, TCO2, | | 7:17 PM | | procedure are in the | | BUN, CR, GLU, CA) | | PDT | | results section. | + +--------+ + + + | MAGNESIUM, PLASMA | Routin | 06/13/2012 | | Results for this | | | e | 7:17 PM | | procedure are in the | | | | PDT | | results section. | + +--------+ + + + | OPERATION RECORD | | 06/13/2012 | | Results for this | | | | 3:45 PM | | procedure are in the | | | | PDT | | results section. | + +--------+ + + + | CBC ONLY | Routin | 06/13/2012 | | Results for this | | | e | 6:48 AM | | procedure are in the | | | | PDT | | results section. | + +--------+ + + + | CBC ONLY | Routin | 06/13/2012 | | Results for this | | | e | 6:48 AM | | procedure are in the | | | | PDT | | results section. | + +--------+ + + + | CBC ONLY | Urgent | 06/11/2012 | | Results for this | | | | 11:32 PM | | procedure are in the | | | | PDT | | results section. | + +--------+ + + + | CBC ONLY | Urgent | 06/11/2012 | | Results for this | | | | 11:32 PM | | procedure are in the | | | | PDT | | results section. | + +--------+ + + + | COAGULOPATHY PANEL | Urgent | 06/11/2012 | | Results for this | | (INR,APTT,FIBRINOGEN | | 11:32 PM | | procedure are in the | | ) | | PDT | | results section. | + +--------+ + + + | VBG-FULL ABL, POC | Routin | 06/11/2012 | Epistaxis | Results for this | | | e | 8:10 PM | | procedure are in the | | | | PDT | | results section. | + +--------+ + + + | ABG-FULL ABL, POC | Routin | 06/11/2012 | Epistaxis | Results for this | | | e | 8:03 PM | | procedure are in the | | | | PDT | | results section. | + +--------+ + + + | EPISTAXIS CONTROL | | 06/11/2012 | Acute abscess of | | | | | 4:51 PM | nasal sinus | | | | | PDT | Epistaxis | | + +--------+ + + + +---+--------+ | | | | | Specia | | | l | | | Needs | | | | | | Endosc | | | opic | | | contro | | | l of | | | epista | | | xis.Si | | | nus | | | instru | | | ments | | | with | | | sinus | | | tower. | | | Dr | | | Schind | | | ler is | | | | | | Primar | | | y and | | | availa | | | ble | | | after | | | 1500. | | | Booked | | | by | | | [place] | | | een | | | [id number] | | | | | | 3 @ | | | [id number] | | | ps | +---+--------+ + +--------+ +---+ + | PRODUCT - RED CELLS | Routin | 06/11/2012 | | Results for this | | LEUKOREDUCED | e | 4:41 PM | | procedure are in the | | | | PDT | | results section. | + +--------+ +---+ + | PRODUCT - RED CELLS | Routin | 06/11/2012 | | Results for this | | LEUKOREDUCED | e | 4:40 PM | | procedure are in the | | | | PDT | | results section. | + +--------+ +---+ + | 12 LEAD ECG | Urgent | 06/11/2012 | | Results for this | | | | 4:24 PM | | procedure are in the | | | | PDT | | results section. | + +--------+ +---+ + | CBC ONLY | Routin | 06/11/2012 | | Results for this | | | e | 11:55 AM | | procedure are in the | | | | PDT | | results section. | + +--------+ +---+ + | CBC ONLY | Routin | 06/11/2012 | | Results for this | | | e | 11:55 AM | | procedure are in the | | | | PDT | | results section. | + +--------+ +---+ + | TRANSFUSE RED CELLS, | Routin | 06/11/2012 | | | | LEUKOREDUCED | e | 11:21 AM | | | | | | PDT | | | + +--------+ +---+ + | TRANSFUSE RED CELLS, | Routin | 06/11/2012 | | | | LEUKOREDUCED | e | 8:23 AM | | | | | | PDT | | | + +--------+ +---+ + | HEMOGLOBIN | Routin | 06/11/2012 | | Results for this | | | e | 4:02 AM | | procedure are in the | | | | PDT | | results section. | + +--------+ +---+ + | PLATELET COUNT, | Urgent | 06/11/2012 | | Results for this | | WHOLE BLOOD | | 4:02 AM | | procedure are in the | | | | PDT | | results section. | + +--------+ +---+ + | PRODUCT - RED CELLS | Routin | 06/11/2012 | | Results for this | | LEUKOREDUCED | e | 3:02 AM | | procedure are in the | | | | PDT | | results section. | + +--------+ +---+ + | PRODUCT - RED CELLS | Routin | 06/11/2012 | | Results for this | | LEUKOREDUCED | e | 3:02 AM | | procedure are in the | | | | PDT | | results section. | + +--------+ +---+ + | PRODUCT - RED CELLS | Routin | 06/11/2012 | | Results for this | | LEUKOREDUCED | e | 3:02 AM | | procedure are in the | | | | PDT | | results section. | + +--------+ +---+ + | CBC ONLY | Routin | 06/11/2012 | | Results for this | | | e | 2:40 AM | | procedure are in the | | | | PDT | | results section. | + +--------+ +---+ + | RENAL FUNCTION SET | Routin | 06/11/2012 | | Results for this | | (NA,K,CL,CO2,BUN,CRE | e | 2:40 AM | | procedure are in the | | AT,GLUC,CA,PHOS,ALB | | PDT | | results section. | | ) | | | | | + +--------+ +---+ + | CBC ONLY | Routin | 06/11/2012 | | Results for this | | | e | 2:40 AM | | procedure are in the | | | | PDT | | results section. | + +--------+ +---+ + | COAGULOPATHY PANEL | Routin | 06/11/2012 | | Results for this | | (INR,APTT,FIBRINOGEN | e | 2:40 AM | | procedure are in the | | ) | | PDT | | results section. | + +--------+ +---+ + | CBC ONLY | Urgent | 06/10/2012 | | Results for this | | | | 11:41 PM | | procedure are in the | | | | PDT | | results section. | + +--------+ +---+ + | CBC ONLY | Urgent | 06/10/2012 | | Results for this | | | | 11:41 PM | | procedure are in the | | | | PDT | | results section. | + +--------+ +---+ + | EMBOLIZ EXTRACRANIAL | Routin | 06/10/2012 | | Results for this | | | e | 2:13 PM | | procedure are in the | | | | PDT | | results section. | + +--------+ +---+ + | ANTIBODY SCREEN | Routin | 06/10/2012 | | Results for this | | | e | 11:52 AM | | procedure are in the | | | | PDT | | results section. | + +--------+ +---+ + | TYPE AND SCREEN | Routin | 06/10/2012 | | Results for this | | | e | 11:52 AM | | procedure are in the | | | | PDT | | results section. | + +--------+ +---+ + | ABO & RH TYPE | Routin | 06/10/2012 | | Results for this | | | e | 11:52 AM | | procedure are in the | | | | PDT | | results section. | + +--------+ +---+ + | CBC ONLY | Routin | 06/10/2012 | | Results for this | | | e | 6:48 AM | | procedure are in the | | | | PDT | | results section. | + +--------+ +---+ + | CBC ONLY | Routin | 06/10/2012 | | Results for this | | | e | 6:48 AM | | procedure are in the | | | | PDT | | results section. | + +--------+ +---+ + | CHEM 8 W/H&H,POC | Urgent | 06/09/2012 | | Results for this | | | | 8:55 PM | | procedure are in the | | | | PDT | | results section. | + +--------+ +---+ + | LAB REPORTS | | 06/09/2012 | | Results for this | | | | 12:00 AM | | procedure are in the | | | | PDT | | results section. | + +--------+ +---+ + documented in this encounter Results PROCEDURE NOTE (03/28/2015 10:56 PM PST)PROCEDURE NOTE (03/28/2015 10:54 PM PST) + + | Transcriptions | + + | Other, Faculty - 06/16/2012 9:17 AM PDT | + + 12 LEAD ECG (06/13/2012 7:43 PM PDT) + + + + + + | Component | Value | Ref Range | Performed | Pathologist | | | | | At | Signature | + + + + + + | VENTRICULAR | 105 | BPM | [facility] | | | RATE | | | OF | | | | | | CARDIOLOGY | | + + + + + + | ATRIAL RATE | 105 | BPM | [facility] | | | | | | OF | | | | | | CARDIOLOGY | | + + + + + + | P-R | 168 | ms | [facility] | | | INTERVAL | | | OF | | | | | | CARDIOLOGY | | + + + + + + | QRS | 74 | ms | [facility] | | | DURATION | | | OF | | | | | | CARDIOLOGY | | + + + + + + | QT | 332 | ms | [facility] | | | | | | OF | | | | | | CARDIOLOGY | | + + + + + + | QTC | 438 | ms | [facility] | | | | | | OF | | | | | | CARDIOLOGY | | + + + + + + | P AXIS | 37 | degrees | [facility] | | | | | | OF | | | | | | CARDIOLOGY | | + + + + + + | R AXIS | 63 | degrees | [facility] | | | | | | OF | | | | | | CARDIOLOGY | | + + + + + + | T AXIS | 74 | degrees | [facility] | | | | | | OF | | | | | | CARDIOLOGY | | + + + + + + | EKG | Sinus tachycardia with | | [facility] | | | DIAGNOSIS | Premature atrial | | OF | | | | complexesOtherwise | | CARDIOLOGY | | | | normal ECGConfirmed by | | | | | | KWAME FELICIANO ([id number]) on | | | | | | 06/14/2012 11:09:23 PM | | | | + + + + + + + + | Specimen | + + | | + + + + + | Narrative | Performed At | + + + | Please click | [facility] | | on view image for the detailed interpretation from [employer] results. | CARDIOLOGY | + + + + + + + + | Performing | Address | City/State/Zipcode | Phone Number | | Organization | | | | + + + + + | [facility] | [address] | [place], [place] | | | CARDIOLOGY | EL[place]ER [place]BELL | [phone] | | + + + + + RAINBOW HOLD TUBE - PURPLE TOP (06/13/2012 7:17 PM PDT) + + | Specimen | + + | Blood - Blood | + + + + + + + | Performing | Address | City/State/Zipcode | Phone Number | | Organization | | | | + + + + + | [facility] | [address] | [place] [address] | | | SERVICES, [place] | ELIECER SALGUERO | | | + + + + + BASIC METABOLIC SET (NA, K, CL, TCO2, BUN, CR, GLU, CA) (06/13/2012 7:17 PM PDT) + +---------+ + + + | Component | Value | Ref Range | Performed | Pathologist | | | | | At | Signature | + +---------+ + + + | GLUCOSE, | 121 (H) | 60 - 99 mg/dL | [facility] | | | PLASMA | | | LABORATORY | | | (LAB) | | | SERVICES, | | | | | | CORE | | + +---------+ + + + | BUN, PLASMA | 5 (L) | 6 - 20 mg/dL | [facility] | | | (LAB) | | | LABORATORY | | | | | | SERVICES, | | | | | | CORE | | + +---------+ + + + | CREATININE | 0.87 | 0.70 - 1.30 | [facility] | | | PLASMA | | mg/dL | LABORATORY | | | (LAB) | | | SERVICES, | | | | | | CORE | | + +---------+ + + + | EGFR | >60 | >60 mL/min | [facility] | | | - | | | LABORATORY | | | [place] | | | SERVICES, | | | | | | CORE | | + +---------+ + + + | EGFR NON | >60 | >60 mL/min | [facility] | | | -PARTH | | | LABORATORY | | | [facility] | | | SERVICES, | | | | | | CORE | | + +---------+ + + + | SODIUM, | 134 (L) | 136 - 145 | [facility] | | | PLASMA | | mmol/L | LABORATORY | | | (LAB) | | | SERVICES, | | | | | | CORE | | + +---------+ + + + | POTASSIUM, | 3.6 | 3.4 - 5.0 | [facility] | | | PLASMA | | mmol/L | LABORATORY | | | (LAB) | | | SERVICES, | | | | | | CORE | | + +---------+ + + + | CHLORIDE, | 96 (L) | 97 - 108 mmol/L | [facility] | | | PLASMA | | | LABORATORY | | | (LAB) | | | SERVICES, | | | | | | CORE | | + +---------+ + + + | TOTAL CO2, | 30 | 21 - 32 mmol/L | [facility] | | | PLASMA | | | LABORATORY | | | (LAB) | | | SERVICES, | | | | | | CORE | | + +---------+ + + + | CALCIUM, | 7.6 (L) | 8.6 - 10.2 | [facility] | | | PLASMA | | mg/dL | LABORATORY | | | (LAB) | | | SERVICES, | | | | | | CORE | | + +---------+ + + + | ANION GAP | 8 | mmol/L | [facility] | | | | | | LABORATORY | | | | | | SERVICES, | | | | | | CORE | | + +---------+ + + + | POTASSIUM | No Hemo | | [facility] | | | CMNT | | | LABORATORY | | | | | | SERVICES, | | | | | | CORE | | + +---------+ + + + + + | Specimen | + + | Blood - Blood | + + + + + | Narrative | Performed At | + + + | GFR is estimated using the MDRD equation recommended by the | [facility] | | National Kidney Disease Education Program. Estimated GFR | LABORATORY | | Interpretive Information: <60 mL/min/1.73 sq m | SERVICES, CORE | | Chronic Kidney Disease <15 mL/min/1.73 sq m | | | Kidney Failure Estimated GFR greater that 60 mL/min/1.73 sq m is of | | | limited clinical value. The MDRD equation is not valid in the | | | following situations: - Patients under 18 years of age - Severe | | | malnutrition or obesity - Vegetarian diet - Rapidly changing kidney | | | function | | + + + + + + + + | Performing | Address | City/State/Zipcode | Phone Number | | Organization | | | | + + + + + | [facility] | [address] | [place] [address] | | | SERVICES, CORE | [address] | | | + + + + + TROPONIN I, PLASMA (06/13/2012 7:17 PM PDT) + +-------+ + + + | Component | Value | Ref Range | Performed | Pathologist | | | | | At | Signature | + +-------+ + + + | TROPONIN I | <0.02 | <0.80 ng/mL | [facility] | | | | | | LABORATORY | | | | | | SERVICES, | | | | | | CORE | | + +-------+ + + + + + | Specimen | + + | Blood - Blood | + + + + + + + | Performing | Address | City/State/Zipcode | Phone Number | | Organization | | | | + + + + + | [facility] | [address] | [place] [address] | | | SERVICES, CORE | [address] | | | + + + + + MAGNESIUM, PLASMA (06/13/2012 7:17 PM PDT) + +---------+ + + + | Component | Value | Ref Range | Performed | Pathologist | | | | | At | Signature | + +---------+ + + + | MAGNESIUM,P | 1.4 (L) | 1.8 - 2.5 mg/dL | [facility] | | | [facility] | | | LABORATORY | | | | | | SERVICES, | | | | | | CORE | | + +---------+ + + + + + | Specimen | + + | Blood - Blood | + + + + + + + | Performing | Address | City/State/Zipcode | Phone Number | | Organization | | | | + + + + + | [facility] | [address] | [place] [address] | | | SERVICES, [facility] [place] | [address] | | | + + + + + OPERATION RECORD (06/13/2012 3:45 PM PDT) + + | Transcriptions | + + | Janeth Casiano MD - 06/12/2012 11:40 PM PDT Date: | | 06/11/2012ttending Surgeon: Fredrick Cherry M.D.Washcoat Wiper(s): | | Janeth Casiano M.D. | | Jose Angel Easton M.D. Mckenzie Myers MD | | Preoperative Diagnosis(es):1. Uncontrolled right-sided | | epistaxis.2. Status post bilateral internal maxillary artery embolization with | | persistent epistaxis.3. Acute blood loss anemia.Postoperative Diagnosis(es):1. | | Uncontrolled right-sided epistaxis.2. Status post bilateral internal maxillary artery | | embolization with persistent epistaxis.3. Acute blood loss anemia.4. Acute | | maxillary sinusitis associated with epistaxis and multiple packingsProcedures | | Performed:1. Right external approach for anterior and posterior ethmoidal artery | | ligation.2. Nasal endoscopy for control of right-sided nasal hemorrhage.3. Right | | transnasal endoscopic sphenopalatine artery ligation.4. Right maxillary antrotomy and | | irrigation.Anesthesia:General.Blood Loss:25 cc.Complications:None | | apparent.Specimens:None.Drains:Quarter-inch [place] in right medial orbital | | incision.Indications:Mr. Lucas is a 76-year-old gentleman with a week long history | | ofrecurrent right-sided epistaxis which we were unable to control despitemultiple | | attempts at anterior and posterior packing, interventionalradiology embolization, and | | blood transfusions.A PARQ was held, and consent was obtained for the above | | procedures.Findings:Right anterior and posterior ethmoid arteries were found without | | difficultat expected locations and clipped and cauterized. The right | | sphenopalatineartery identified, clipped and cauterized.Procedure In Detail:The patient | | was properly identified in the preoperative holding bay, takento the operating room, | | placed on the table in supine position. Anesthesiainstituted general endotracheal | | anesthesia. The table was then turned.Our Jimenez incision on the right was marked and | | infiltrated with 1%lidocaine with 1:100,000 epinephrine. We left the posterior packing | | on theright side during this portion of procedure. He was then prepped anddraped in | | sterile fashion; a pause was held per protocol.An incision was then made sharply using a | | 15 blade and deepened withelectrocautery until the nasofrontal suture was visualized. | | We camethrough the periosteum and elevated the periosteum along the medial andsuperior | | orbit until we identified the lacrimal crest. Elevating superiorto this we then | | identified the anterior ethmoidal artery approximately 22mm posterior to the lacrimal | | crest. We freed up the region surroundingthis and then multiple hemoclips were placed. | | We then came through theanterior ethmoid using bipolar electrocautery. We then | | identified theposterior ethmoidal artery and hemoclips were placed and this wasalso | | cauterized judiciously using bipolar electrocautery. At this point we thenirrigated and | | placed a small amount at of Avitene along the ethmoid bone. Aquarter-inch Shea was | | then placed and the wound was closed in layersusing interrupted 4-0 Vicryl deep dermals | | and 5-0 fast-absorbing gut forthe skin.We then turned to the nasal portion. The Galan | | catheter that had beenplaced in his right nasal cavity was then taken down and removed | | as well asthe remainder of his gauze packing. When I examined the right nasal cavityit | | was noted to be significantly abraded mucosa from prior attempts atpacking. He was | | noted to have a right mayte bullosa, and a large rightseptal spur abutting the middle | | meatus. We medialized the right middleturbinate and placed multiple pledgets with | | epinephrine 1:10,000 in and theright middle meatus, and sphenoethmoidal recess.Using the | | 0 degree endoscope, we then identified the uncinate process. Hewas noted to have some | | mucosanguineous drainage from its location. Weidentified the root of the middle | | turbinate, in the expected location ofthe sphenopalatine artery. We did note some | | pulsations just anterior tothis. Using a Fredy elevator we then made an incision | | through the mucosaand then elevated the mucosa from anterior to posterior until we | | exposedthe rick ethmoidalis and the right sphenopalatine artery. Multiple clipswere | | then placed on this and then we used a suction cautery to cauterizethe sphenopalatine | | artery stump. This led to good hemostasis. We placedadditional pledgets in there and | | copiously irrigated the nasal cavity.We then performed a maxillary antrostomy by placing | | an 18-gauge needle inthe inferior meatus and then passing this through the medial wall | | of themaxillary sinus, into the maxillary sinus and copiously irrigating. Weconfirmed | | adequate irrigation with endoscopic guidance by observing theirrigant coming out of the | | inferior portion of the uncinate process. Laina again irrigated from bilateral nasal | | cavities.We then placed packing of Avitene wrapped in Surgicel, multiple smallpacks, in | | the middle meatus and the sphenoethmoidal recess. Two Merocelpacks were then placed in | | the right nasal cavity coated in bacitracin, andthen these were expanded. We then | | passed an orogastric tube and suctionedout his stomach contents.At this point he was | | returned to Anesthesia for awakening.A dressing of bacitracin and a small gauze was | | placed over the Penrosedrain in the right medial Jimenez incision.He was extubated in the | | operating room, taken recovery room in stablecondition.There were no apparent | | complications.Dr. Cherry was present for the entirety of the procedure.Janeth Caballero | | Lydia Casiano M.D.LALA / [id number] / [id number] / [id number] / T: | | 06/12/2012 | |superior orbit until we identified the lacrimal crest. Elevating superior | |to this we then identified the anterior ethmoidal artery approximately 22 | |mm posterior to the lacrimal crest. We freed up the region surrounding | |this and then multiple hemoclips were placed. We then came through the | |anterior ethmoid using bipolar electrocautery. We then identified the | |posterior ethmoidal artery and hemoclips were placed and this was | |also cauterized judiciously using bipolar electrocautery. At this point we then | |irrigated and placed a small amount at of Avitene along the ethmoid bone. A | |quarter-inch Shea was then placed and the wound was closed in layers | |using interrupted 4-0 Vicryl deep dermals and 5-0 fast-absorbing gut for | |the skin. | | | |We then turned to the nasal portion. The Galan catheter that had been | |placed in his right nasal cavity was then taken down and removed as well as | |the remainder of his gauze packing. When I examined the right nasal cavity | |it was noted to be significantly abraded mucosa from prior attempts at | |packing. He was noted to have a right mayte bullosa, and a large right | |septal spur abutting the middle meatus. We medialized the right middle | |turbinate and placed multiple pledgets with epinephrine 1:10,000 in and the | |right middle meatus, and sphenoethmoidal recess. | | | |Using the 0 degree endoscope, we then identified the uncinate process. He | |was noted to have some mucosanguineous drainage from its location. We | |identified the root of the middle turbinate, in the expected location of | |the sphenopalatine artery. We did note some pulsations just anterior to | |this. Using a Fredy elevator we then made an incision through the mucosa | |and then elevated the mucosa from anterior to posterior until we exposed | |the rick ethmoidalis and the right sphenopalatine artery. Multiple clips | |were then placed on this and then we used a suction cautery to cauterize | |the sphenopalatine artery stump. This led to good hemostasis. We placed | |additional pledgets in there and copiously irrigated the nasal cavity. | | | |We then performed a maxillary antrostomy by placing an 18-gauge needle in | |the inferior meatus and then passing this through the medial wall of the | |maxillary sinus, into the maxillary sinus and copiously irrigating. We | |confirmed adequate irrigation with endoscopic guidance by observing the | |irrigant coming out of the inferior portion of the uncinate process. We | |then again irrigated from bilateral nasal cavities. | | | |We then placed packing of Avitene wrapped in Surgicel, multiple small | |packs, in the middle meatus and the sphenoethmoidal recess. Two Merocel | |packs were then placed in the right nasal cavity coated in bacitracin, and | |then these were expanded. We then passed an orogastric tube and suctioned | |out his stomach contents. | | | |At this point he was returned to Anesthesia for awakening. | | | |A dressing of bacitracin and a small gauze was placed over the [place] | |drain in the right medial Jimenez incision. | | | |He was extubated in the operating room, taken recovery room in stable | |condition. | | | |There were no apparent complications. | | | |Dr. Cherry was present for the entirety of the procedure. | | | | | |Janeth Casiano M.D. | | | | | |Fredrick Cherry M.D. | | | |JGL / HS | |[id number] / [id number] / [id number] / | | | | | + + CBC (06/13/2012 6:48 AM PDT) + + + + + + | Component | Value | Ref Range | Performed | Pathologist | | | | | At | Signature | + + + + + + | WBC COUNT | 11.4 (H) | 4.4 - 11.0 K/cu | [facility] | | | | | mm | LABORATORY | | | | | | SERVICES, | | | | | | CORE | | + + + + + + | RED CELL | 2.60 (L) | 4.50 - 5.90 | [facility] | | | COUNT | | M/cu mm | LABORATORY | | | | | | SERVICES, | | | | | | CORE | | + + + + + + | HEMOGLOBIN | 7.1 (L) | 13.5 - 17.5 | [facility] | | | | | g/dL | LABORATORY | | | | | | SERVICES, | | | | | | CORE | | + + + + + + | HEMATOCRIT | 22.2 (L) | 41.0 - 53.0 % | [facility] | | | | | | LABORATORY | | | | | | SERVICES, | | | | | | CORE | | + + + + + + | MCV | 85.4 | 80.0 - 96.0 fL | [facility] | | | | | | LABORATORY | | | | | | SERVICES, | | | | | | CORE | | + + + + + + | MCHC | 32.1 (L) | 33.4 - 35.5 | [facility] | | | | | g/dL | LABORATORY | | | | | | SERVICES, | | | | | | CORE | | + + + + + + | RDW | 20.1 (H) | 11.5 - 15.0 % | [facility] | | | | | | LABORATORY | | | | | | SERVICES, | | | | | | CORE | | + + + + + + | PLATELET | 349 | 150 - 400 K/cu | [facility] | | | COUNT | | mm | LABORATORY | | | | | | SERVICES, | | | | | | CORE | | + + + + + + + + | Specimen | + + | Blood - Blood | + + + + + + + | Performing | Address | City/State/Zipcode | Phone Number | | Organization | | | | + + + + + | [facility] | [address] | [place] [address] | | | SERVICES, CORE | [address] | | | + + + + + CBC (06/11/2012 11:32 PM PDT) + + + + + + | Component | Value | Ref Range | Performed | Pathologist | | | | | At | Signature | + + + + + + | WBC COUNT | 13.0 (H) | 4.4 - 11.0 K/cu | [facility] | | | | | mm | LABORATORY | | | | | | SERVICES, | | | | | | CORE | | + + + + + + | RED CELL | 2.83 (L) | 4.50 - 5.90 | [facility] | | | COUNT | | M/cu mm | LABORATORY | | | | | | SERVICES, | | | | | | CORE | | + + + + + + | HEMOGLOBIN | 7.8 (L) | 13.5 - 17.5 | [facility] | | | | | g/dL | LABORATORY | | | | | | SERVICES, | | | | | | CORE | | + + + + + + | HEMATOCRIT | 24.2 (L) | 41.0 - 53.0 % | [facility] | | | | | | LABORATORY | | | | | | SERVICES, | | | | | | CORE | | + + + + + + | MCV | 85.4 | 80.0 - 96.0 fL | [facility] | | | | | | LABORATORY | | | | | | SERVICES, | | | | | | CORE | | + + + + + + | MCHC | 32.4 (L) | 33.4 - 35.5 | [facility] | | | | | g/dL | LABORATORY | | | | | | SERVICES, | | | | | | CORE | | + + + + + + | RDW | 20.3 (H) | 11.5 - 15.0 % | [facility] | | | | | | LABORATORY | | | | | | SERVICES, | | | | | | CORE | | + + + + + + | PLATELET | Comment: Platelet count | 150 - 400 K/cu | [facility] | | | COUNT | not available; many | mm | LABORATORY | | | | platelet clumps. This is | | SERVICES, | | | | a corrected result. | | CORE | | | | Previous result was 158 | | | | | | on 06/12/2012 002. | | | | + + + + + + + + | Specimen | + + | Blood - Blood | + + + + + + + | Performing | Address | City/State/Zipcode | Phone Number | | Organization | | | | + + + + + | [facility] | [address] | [place] [address] | | | SERVICES, CORE | [address] | | | + + + + + COAGULOPATHY PANEL (INR,APTT,FIBRINOGEN) (06/11/2012 11:32 PM PDT) + + + + + + | Component | Value | Ref Range | Performed | Pathologist | | | | | At | Signature | + + + + + + | INR | 1.40 (H) | 0.90 - 1.20 INR | [facility] | | | | | | LABORATORY | | | | | | SERVICES, | | | | | | CORE | | + + + + + + | APTT | 33.3 | 26.0 - 36.0 | [facility] | | | | | seconds | LABORATORY | | | | | | SERVICES, | | | | | | CORE | | + + + + + + | FIBRINOGEN | 399 | 200 - 450 mg/dL | [facility] | | | LEVEL | | | LABORATORY | | | | | | SERVICES, | | | | | | CORE | | + + + + + + + + | Specimen | + + | Blood - Blood | + + + + + | Narrative | Performed At | + + + | INR Therapeutic ranges for full anticoagulation: INR for | [facility] | | Venous Thromboembolism (2.0 - 3.0) INR INR for | LABORATORY | | most patients with mech. valves (2.5 - 3.5) INR APTT | SERVICES, CORE | | Therapeutic Range: (75 - 120) sec | | | Heparin levels of 0.35 - 0.7 U/mL | | + + + + + + + + | Performing | Address | City/State/Zipcode | Phone Number | | Organization | | | | + + + + + | [facility] | [address] | [place] [address] | | | NAYELI, RAFAEL | [address] | | | + + + + + VBG SOR, POC (06/11/2012 8:10 PM PDT) + + + + + + | Component | Value | Ref Range | Performed | Pathologist | | | | | At | Signature | + + + + + + | OSMOLALITY | 287.5 | 275 - 295 | [facility] - | | | VENOUS, POC | | mmol/kg | [facility] | | | | | | [facility] | | | | | | OF CARE | | | | | | TESTS | | + + + + + + | PH VENOUS, | 7.37 | 7.35 - 7.45 | [facility] - | | | POC | | | [facility] | | | | | | [facility] | | | | | | OF CARE | | | | | | TESTS | | + + + + + + | PO2 VENOUS, | 62 (H) | 30 - 55 mmHg | [facility] - | | | POC | | | [facility] | | | | | | [facility] | | | | | | OF CARE | | | | | | TESTS | | + + + + + + | PCO2 | 51 (H) | 35 - 50 mmHg | [facility] - | | | VENOUS, POC | | | [facility] | | | | | | [facility] | | | | | | OF CARE | | | | | | TESTS | | + + + + + + | TOTAL | 8.3 (L) | 13.5 - 17.5 | [facility] - | | | HEMOGLOBIN | | g/dL | [facility] | | | VENOUS, POC | | | [facility] | | | | | | OF CARE | | | | | | TESTS | | + + + + + + | O2 SAT | 92.9 | % | [facility] - | | | VENOUS, POC | | | [facility] | | | | | | [facility] | | | | | | OF CARE | | | | | | TESTS | | + + + + + + | OXYHEMOGLOB | 90.7 | % | [facility] - | | | IN VENOUS, | | | [facility] | | | POC | | | [facility] | | | | | | OF CARE | | | | | | TESTS | | + + + + + + | CARBOXYHEMO | 1.6 | % | [facility] - | | | GLOBIN | | | [facility] | | | VENOUS, POC | | | [facility] | | | | | | OF CARE | | | | | | TESTS | | + + + + + + | DEOXYHEMOGL | 6.9 | | [facility] - | | | OBIN | | | [facility] | | | VENOUS, POC | | | [facility] | | | | | | OF CARE | | | | | | TESTS | | + + + + + + | METHEMOGLOB | 0.8 | % | [facility] - | | | IN VENOUS, | | | [facility] | | | POC | | | [facility] | | | | | | OF CARE | | | | | | TESTS | | + + + + + + | HEMATOCRIT | 25.6 (L) | 41.0 - 53.0 % | [facility] - | | | VENOUS, POC | | | [facility] | | | | | | [facility] | | | | | | OF CARE | | | | | | TESTS | | + + + + + + | POTASSIUM | 4.1 | 3.4 - 5.0 | [facility] - | | | VENOUS, POC | | mmol/L | [facility] | | | | | | [facility] | | | | | | OF CARE | | | | | | TESTS | | + + + + + + | SODIUM | 140 | 134 - 143 | [facility] - | | | VENOUS, POC | | mmol/L | [facility] | | | | | | [facility] | | | | | | OF CARE | | | | | | TESTS | | + + + + + + | NELLIE | 1.14 | 1.14 - 1.32 | [facility] - | | | IONIZED CA | | mmol/L | [facility] | | | VENOUS, POC | | | [facility] | | | | | | OF CARE | | | | | | TESTS | | + + + + + + | CHLORIDE | 103 | 97 - 108 mmol/L | [facility] - | | | VENOUS, POC | | | [facility] | | | | | | [facility] | | | | | | OF CARE | | | | | | TESTS | | + + + + + + | GLUCOSE | 141 (H) | 60 - 99 mg/dL | [facility] - | | | VENOUS, POC | | | [facility] | | | | | | [facility] | | | | | | OF CARE | | | | | | TESTS | | + + + + + + | HCO3 | 29.3 (H) | 22 - 28 mmol/L | [facility] - | | | VENOUS, POC | | | [facility] | | | | | | [facility] | | | | | | OF CARE | | | | | | TESTS | | + + + + + + | BASE EXCESS | 4.0 | | [facility] - | | | VENOUS, | | | [facility] | | | POC | | | [facility] | | | | | | OF CARE | | | | | | TESTS | | + + + + + + | LACTATE POC | 0.7 | 0.5 - 2.2 | [facility] - | | | | | mmol/L | [facility] | | | | | | [facility] | | | | | | OF CARE | | | | | | TESTS | | + + + + + + + + | Specimen | + + | | + + + + + + + | Performing | Address | City/State/Zipcode | Phone Number | | Organization | | | | + + + + + | [facility] | [address] | [place], [place] | | | [facility]ARE | [facility] | [phone] | | | TESTS | | | | + + + + + ABG SOR POC (06/11/2012 8:03 PM PDT) + + + + + + | Component | Value | Ref Range | Performed | Pathologist | | | | | At | Signature | + + + + + + | OSMOLALITY | 289.0 | 275 - 295 | [facility] - | | | ARTERIAL, | | mmol/kg | [facility] | | | POC | | | [facility] | | | | | | OF CARE | | | | | | TESTS | | + + + + + + | PH | 7.36 (L) | 7.37 - 7.44 | [facility] - | | | ARTERIAL, | | | [facility] | | | POC | | | [facility] | | | | | | OF CARE | | | | | | TESTS | | + + + + + + | PO2 | 125 (H) | 72 - 104 mmHg | [facility] - | | | ARTERIAL, | | | [facility] | | | POC | | | [facility] | | | | | | OF CARE | | | | | | TESTS | | + + + + + + | PCO2 | 49 (H) | 32 - 43 mmHg | [facility] - | | | ARTERIAL, | | | [facility] | | | POC | | | [facility] | | | | | | OF CARE | | | | | | TESTS | | + + + + + + | TOTAL | 6.1 (AA) | 13.5 - 17.5 | [facility] - | | | HEMOGLOBIN, | | g/dL | [facility] | | | POC | | | [facility] | | | | | | OF CARE | | | | | | TESTS | | + + + + + + | O2 SAT | 99.3 (H) | 92.0 - 98.0 % | [facility] - | | | ARTERIAL, | | | [facility] | | | POC | | | [facility] | | | | | | OF CARE | | | | | | TESTS | | + + + + + + | OXYHEMOGLOB | 96.4 | 94.0 - 100 % | [facility] - | | | IN, POC | | | [facility] | | | | | | CESAR, POINT | | | | | | OF CARE | | | | | | TESTS | | + + + + + + | CARBOXYHEMO | 1.8 (H) | 0.0 - 1.5 % | [facility] - | | | GLOBIN, POC | | | [facility] | | | | | | CESAR, POINT | | | | | | OF CARE | | | | | | TESTS | | + + + + + + | DEOXYHEMOGL | 0.7 | | [facility] - | | | OBIN, POC | | | [facility] | | | | | | [facility] | | | | | | OF CARE | | | | | | TESTS | | + + + + + + | METHEMOGLOB | 1.1 | 0.0 - 1.9 % | [facility] - | | | IN, POC | | | [facility] | | | | | | [facility] | | | | | | OF CARE | | | | | | TESTS | | + + + + + + | HEMATOCRIT, | 18.6 (AA) | 41.0 - 53.0 % | [facility] - | | | POC | | | [facility] | | | | | | [facility] | | | | | | OF CARE | | | | | | TESTS | | + + + + + + | POTASSIUM, | 4.1 | 3.4 - 5.0 | [facility] - | | | POC | | mmol/L | [facility] | | | | | | [facility] | | | | | | OF CARE | | | | | | TESTS | | + + + + + + | SODIUM, POC | 141 | 134 - 143 | [facility] - | | | | | mmol/L | [facility] | | | | | | [facility] | | | | | | OF CARE | | | | | | TESTS | | + + + + + + | NELLIE | 1.08 (L) | 1.14 - 1.32 | [facility] - | | | IONIZED CA, | | mmol/L | [facility] | | | POC | | | [facility] | | | | | | OF CARE | | | | | | TESTS | | + + + + + + | CHLORIDE, | 104 | 97 - 108 mmol/L | [facility] - | | | POC | | | [facility] | | | | | | [facility] | | | | | | OF CARE | | | | | | TESTS | | + + + + + + | GLUCOSE, | 128 (H) | 60 - 99 mg/dL | [facility] - | | | POC | | | [facility] | | | | | | [facility] | | | | | | OF CARE | | | | | | TESTS | | + + + + + + | HCO3 | 27.3 | 21 - 28 mmol/L | [facility] - | | | ARTERIAL, | | | [facility] | | | POC | | | [facility] | | | | | | OF CARE | | | | | | TESTS | | + + + + + + | BASE EXCESS | 1.8 | | [facility] - | | | ARTERIAL, | | | [facility] | | | POC | | | [place]INT | | | | | | OF CARE | | | | | | TESTS | | + + + + + + | LACTATE POC | 2.4 (H) | 0.5 - 1.6 | [facility] - | | | | | mmol/L | [facility] | | | | | | [place] | | | | | | OF CARE | | | | | | TESTS | | + + + + + + + + | Specimen | + + | | + + + + + + + | Performing | Address | City/State/Zipcode | Phone Number | | Organization | | | | + + + + + | [facility] | [address] | [place], [place] | | | [facility] OF [facility] | [address] | [address] | | | TESTS | | | | + + + + + PRODUCT- RED CELLS LEUKOREDUCED (06/11/2012 4:41 PM PDT) + + + + + + | Component | Value | Ref Range | Performed | Pathologist | | | | | At | Signature | + + + + + + | PRODUCT | -1 RED BLOOD | | [facility] | | | DESCRIPTION | CELLS,ADENINE-SALINE | | DEPARTMENT | | | | ADDED,LEUKOCYTES REDUCED | | OF | | | | | | PATHOLOGY | | + + + + + + | PRODUCT | [id number] | | [facility] | | | UNIT # | | | DEPARTMENT | | | | | | OF | | | | | | PATHOLOGY | | + + + + + + | UNIT ABO | B | | [facility] | | | | | | DEPARTMENT | | | | | | OF | | | | | | PATHOLOGY | | + + + + + + | UNIT RH | POS | | [facility] | | | | | | DEPARTMENT | | | | | | OF | | | | | | PATHOLOGY | | + + + + + + | STATUS OF | Returned to Blood Bank | | [facility] | | | UNIT | | | DEPARTMENT | | | | | | OF | | | | | | PATHOLOGY | | + + + + + + | BLOOD | [id number] | | [facility] | | | PRODUCT | | | DEPARTMENT | | | CODE | | | OF | | | | | | PATHOLOGY | | + + + + + + + + | Specimen | + + | | + + + + + + + | Performing | Address | City/State/Zipcode | Phone Number | | Organization | | | | + + + + + | [facility] | [address] | [place] [address] | | | PATHOLOGY | [address] | | | + + + + + PRODUCT- RED CELLS LEUKOREDUCED (06/11/2012 4:40 PM PDT) + + + + + + | Component | Value | Ref Range | Performed | Pathologist | | | | | At | Signature | + + + + + + | PRODUCT | -1 RED BLOOD | | [facility] | | | DESCRIPTION | CELLS,ADENINE-SALINE | | DEPARTMENT | | | | ADDED,LEUKOCYTES REDUCED | | OF | | | | | | PATHOLOGY | | + + + + + + | PRODUCT | [id number] | | [facility] | | | UNIT # | | | DEPARTMENT | | | | | | OF | | | | | | PATHOLOGY | | + + + + + + | UNIT ABO | B | | [facility] | | | | | | DEPARTMENT | | | | | | OF | | | | | | PATHOLOGY | | + + + + + + | UNIT RH | POS | | [facility] | | | | | | DEPARTMENT | | | | | | OF | | | | | | PATHOLOGY | | + + + + + + | STATUS OF | Returned to Blood Bank | | [facility] | | | UNIT | | | DEPARTMENT | | | | | | OF | | | | | | PATHOLOGY | | + + + + + + | BLOOD | [id number] | | [facility] | | | PRODUCT | | | DEPARTMENT | | | CODE | | | OF | | | | | | PATHOLOGY | | + + + + + + + + | Specimen | + + | | + + + + + + + | Performing | Address | City/State/Zipcode | Phone Number | | Organization | | | | + + + + + | [facility] | [id number] | [place] [address] | | | PATHOLOGY | [address] | | | + + + + + 12 LEAD ECG (06/11/2012 4:24 PM PDT) + + + + + + | Component | Value | Ref Range | Performed | Pathologist | | | | | At | Signature | + + + + + + | VENTRICULAR | 104 | BPM | [facility] | | | RATE | | | OF | | | | | | CARDIOLOGY | | + + + + + + | ATRIAL RATE | 104 | BPM | [facility] | | | | | | OF | | | | | | CARDIOLOGY | | + + + + + + | P-R | 162 | ms | [facility] | | | INTERVAL | | | OF | | | | | | CARDIOLOGY | | + + + + + + | QRS | 86 | ms | [facility] | | | DURATION | | | OF | | | | | | CARDIOLOGY | | + + + + + + | QT | 338 | ms | [facility] | | | | | | OF | | | | | | CARDIOLOGY | | + + + + + + | QTC | 444 | ms | [facility] | | | | | | OF | | | | | | CARDIOLOGY | | + + + + + + | P AXIS | 47 | degrees | [facility] | | | | | | OF | | | | | | CARDIOLOGY | | + + + + + + | R AXIS | 50 | degrees | [facility] | | | | | | OF | | | | | | CARDIOLOGY | | + + + + + + | T AXIS | 59 | degrees | [facility] | | | | | | OF | | | | | | CARDIOLOGY | | + + + + + + | EKG | Sinus | | [facility] | | | DIAGNOSIS | tachycardiaAnterior | | OF | | | | infarct , age | | CARDIOLOGY | | | | undeterminedAbnormal | | | | | | ECGConfirmed by CANDIE | | | | | | MANUELITO ([id number]) on 06/13/2012 | | | | | | 8:28:15 AM | | | | + + + + + + + + | Specimen | + + | | + + + + + | Narrative | Performed At | + + + | Please click | [facility] OF | | on view image for the detailed interpretation from [employer] results. | CARDIOLOGY | + + + + + + + + | Performing | Address | City/State/Zipcode | Phone Number | | Organization | | | | + + + + + | [facility] | [address] | [place], [place] | | | CARDIOLOGY | [address] | [address] | | + + + + + CBC (06/11/2012 11:55 AM PDT) + + + + + + | Component | Value | Ref Range | Performed | Pathologist | | | | | At | Signature | + + + + + + | WBC COUNT | 11.0 | 4.4 - 11.0 K/cu | [facility] | | | | | mm | LABORATORY | | | | | | SERVICES, | | | | | | CORE | | + + + + + + | RED CELL | 2.93 (L) | 4.50 - 5.90 | [facility] | | | COUNT | | M/cu mm | LABORATORY | | | | | | SERVICES, | | | | | | CORE | | + + + + + + | HEMOGLOBIN | 8.1 (L) | 13.5 - 17.5 | [facility] | | | | | g/dL | LABORATORY | | | | | | SERVICES, | | | | | | CORE | | + + + + + + | HEMATOCRIT | 24.9 (L) | 41.0 - 53.0 % | [facility] | | | | | | LABORATORY | | | | | | SERVICES, | | | | | | CORE | | + + + + + + | MCV | 85.2 | 80.0 - 96.0 fL | [facility] | | | | | | LABORATORY | | | | | | SERVICES, | | | | | | CORE | | + + + + + + | MCHC | 32.3 (L) | 33.4 - 35.5 | [facility] | | | | | g/dL | LABORATORY | | | | | | SERVICES, | | | | | | CORE | | + + + + + + | RDW | 20.5 (H) | 11.5 - 15.0 % | [facility] | | | | | | LABORATORY | | | | | | SERVICES, | | | | | | CORE | | + + + + + + | PLATELET | 371 | 150 - 400 K/cu | [facility] | | | COUNT | | mm | LABORATORY | | | | | | SERVICES, | | | | | | CORE | | + + + + + + + + | Specimen | + + | Blood - Blood | + + + + + + + | Performing | Address | City/State/Zipcode | Phone Number | | Organization | | | | + + + + + | [facility] | [address] | [place] [address] | | | SERVICES, CORE | [address] | | | + + + + + HEMOGLOBIN (06/11/2012 4:02 AM PDT) + + + + + + | Component | Value | Ref Range | Performed | Pathologist | | | | | At | Signature | + + + + + + | HEMOGLOBIN | 6.3 (LL) | 13.5 - 17.5 | [facility] | | | | | g/dL | LABORATORY | | | | | | SERVICES, | | | | | | CORE | | + + + + + + + + | Specimen | + + | Blood - Blood | + + + + + + + | Performing | Address | City/State/Zipcode | Phone Number | | Organization | | | | + + + + + | [facility] | [address] | [place] [address] | | | SERVICES, CORE | [address] | | | + + + + + PLATELET COUNT, WHOLE BLOOD (06/11/2012 4:02 AM PDT) + + + + + + | Component | Value | Ref Range | Performed | Pathologist | | | | | At | Signature | + + + + + + | PLATELET | Comment: Platelet count | 150 - 400 K/cu | [facility] | | | COUNT | not available; many | mm | LABORATORY | | | | platelet clumps. This | | SERVICES, | | | | is a corrected result. | | CORE | | | | Previous result was 164 | | | | | | on 2013a [id number]. | | | | + + + + + + + + | Specimen | + + | Blood - Blood | + + + + + | Narrative | Performed At | + + + | Platelet clumps. Quantitation may possibly be obtained in alternate | [facility] | | anticoagulant. Request a platelet count and sodium citrate, heparin, | LABORATORY | | and EDTA tubes. | SERVICES, CORE | + + + + + + + + | Performing | Address | City/State/Zipcode | Phone Number | | Organization | | | | + + + + + | [facility] | [address] | [place] [address] | | | SERVICES, CORE | [address] | | | + + + + + PRODUCT- RED CELLS LEUKOREDUCED (06/11/2012 3:02 AM PDT) + + + + + + | Component | Value | Ref Range | Performed | Pathologist | | | | | At | Signature | + + + + + + | PRODUCT | -3 RED BLOOD | | [facility] | | | DESCRIPTION | CELLS,ADENINE-SALINE | | DEPARTMENT | | | | ADDED,LEUKOCYTES | | OF | | | | REDUCED,15 mEq Sodium | | PATHOLOGY | | | | Added. | | | | + + + + + + | PRODUCT | [id number] | | [facility] | | | UNIT # | | | DEPARTMENT | | | | | | OF | | | | | | PATHOLOGY | | + + + + + + | UNIT ABO | O | | [facility] | | | | | | DEPARTMENT | | | | | | OF | | | | | | PATHOLOGY | | + + + + + + | UNIT RH | POS | | [facility] | | | | | | DEPARTMENT | | | | | | OF | | | | | | PATHOLOGY | | + + + + + + | STATUS OF | Presumed Transfused | | [facility] | | | UNIT | | | DEPARTMENT | | | | | | OF | | | | | | PATHOLOGY | | + + + + + + | BLOOD | [id number] | | [facility] | | | PRODUCT | | | DEPARTMENT | | | CODE | | | OF | | | | | | PATHOLOGY | | + + + + + + + + | Specimen | + + | | + + + + + + + | Performing | Address | City/State/Zipcode | Phone Number | | Organization | | | | + + + + + | [facility] | [address] | [place] [address] | | | PATHOLOGY | [address] | | | + + + + + PRODUCT- RED CELLS LEUKOREDUCED (06/11/2012 3:02 AM PDT) + + + + + + | Component | Value | Ref Range | Performed | Pathologist | | | | | At | Signature | + + + + + + | PRODUCT | -1 RED BLOOD | | [facility] | | | DESCRIPTION | CELLS,ADENINE-SALINE | | DEPARTMENT | | | | ADDED,LEUKOCYTES REDUCED | | OF | | | | | | PATHOLOGY | | + + + + + + | PRODUCT | [id number] | | [facility] | | | UNIT # | | | DEPARTMENT | | | | | | OF | | | | | | PATHOLOGY | | + + + + + + | UNIT ABO | B | | [facility] | | | | | | DEPARTMENT | | | | | | OF | | | | | | PATHOLOGY | | + + + + + + | UNIT RH | POS | | [facility] | | | | | | DEPARTMENT | | | | | | OF | | | | | | PATHOLOGY | | + + + + + + | STATUS OF | Returned to Blood Bank | | [facility] | | | UNIT | | | DEPARTMENT | | | | | | OF | | | | | | PATHOLOGY | | + + + + + + | BLOOD | [id number] | | [facility] | | | PRODUCT | | | DEPARTMENT | | | CODE | | | OF | | | | | | PATHOLOGY | | + + + + + + + + | Specimen | + + | | + + + + + + + | Performing | Address | City/State/Zipcode | Phone Number | | Organization | | | | + + + + + | [facility] | [address] | [place] [address] | | | PATHOLOGY | [address] | | | + + + + + PRODUCT- RED CELLS LEUKOREDUCED (06/11/2012 3:02 AM PDT) + + + + + + | Component | Value | Ref Range | Performed | Pathologist | | | | | At | Signature | + + + + + + | PRODUCT | -1 RED BLOOD | | [facility] | | | DESCRIPTION | CELLS,ADENINE-SALINE | | DEPARTMENT | | | | ADDED,LEUKOCYTES REDUCED | | OF | | | | | | PATHOLOGY | | + + + + + + | PRODUCT | [id number] | | [facility] | | | UNIT # | | | DEPARTMENT | | | | | | OF | | | | | | PATHOLOGY | | + + + + + + | UNIT ABO | B | | [facility] | | | | | | DEPARTMENT | | | | | | OF | | | | | | PATHOLOGY | | + + + + + + | UNIT RH | POS | | [facility] | | | | | | DEPARTMENT | | | | | | OF | | | | | | PATHOLOGY | | + + + + + + | STATUS OF | Presumed Transfused | | [facility] | | | UNIT | | | DEPARTMENT | | | | | | OF | | | | | | PATHOLOGY | | + + + + + + | BLOOD | [id number] | | [facility] | | | PRODUCT | | | DEPARTMENT | | | CODE | | | OF | | | | | | PATHOLOGY | | + + + + + + + + | Specimen | + + | | + + + + + + + | Performing | Address | City/State/Zipcode | Phone Number | | Organization | | | | + + + + + | [facility] | [address] | [place] [address] | | | PATHOLOGY | [address] | | | + + + + + CBC (06/11/2012 2:40 AM PDT) + + + + + + | Component | Value | Ref Range | Performed | Pathologist | | | | | At | Signature | + + + + + + | WBC COUNT | 13.2 (H) | 4.4 - 11.0 K/cu | [facility] | | | | | mm | LABORATORY | | | | | | SERVICES, | | | | | | CORE | | + + + + + + | RED CELL | 2.40 (L) | 4.50 - 5.90 | [facility] | | | COUNT | | M/cu mm | LABORATORY | | | | | | SERVICES, | | | | | | CORE | | + + + + + + | HEMOGLOBIN | 6.8 (L) | 13.5 - 17.5 | [facility] | | | | | g/dL | LABORATORY | | | | | | SERVICES, | | | | | | CORE | | + + + + + + | HEMATOCRIT | 20.6 (L) | 41.0 - 53.0 % | [facility] | | | | | | LABORATORY | | | | | | SERVICES, | | | | | | CORE | | + + + + + + | MCV | 86.0 | 80.0 - 96.0 fL | [facility] | | | | | | LABORATORY | | | | | | SERVICES, | | | | | | CORE | | + + + + + + | MCHC | 32.9 (L) | 33.4 - 35.5 | [facility] | | | | | g/dL | LABORATORY | | | | | | SERVICES, | | | | | | CORE | | + + + + + + | RDW | 20.2 (H) | 11.5 - 15.0 % | [facility] | | | | | | LABORATORY | | | | | | SERVICES, | | | | | | CORE | | + + + + + + | PLATELET | Comment: Platelet count | 150 - 400 K/cu | [facility] | | | COUNT | not available; many | mm | LABORATORY | | | | platelet clumps. | | SERVICES, | | | | Platelet Clumps Phoned. | | CORE | | | | This is a corrected | | | | | | result. Previous result | | | | | | was 119 on 06/11/2012t | | | | | | 0333. | | | | + + + + + + + + | Specimen | + + | Blood - Blood | + + + + + + + | Performing | Address | City/State/Zipcode | Phone Number | | Organization | | | | + + + + + | [facility] | [address] | [place] [address] | | | SERVICES, CORE | [address] | | | + + + + + RENAL FUNCTION SET (NA,K,CL,CO2,BUN,CREAT,GLUC,CA,PHOS,ALB ) (06/11/2012 2:40 AM PDT) + +---------+ + + + | Component | Value | Ref Range | Performed | Pathologist | | | | | At | Signature | + +---------+ + + + | GLUCOSE, | 113 (H) | 60 - 99 mg/dL | [facility] | | | PLASMA | | | LABORATORY | | | (LAB) | | | SERVICES, | | | | | | CORE | | + +---------+ + + + | BUN, PLASMA | 14 | 6 - 20 mg/dL | [facility] | | | (LAB) | | | LABORATORY | | | | | | SERVICES, | | | | | | CORE | | + +---------+ + + + | CREATININE | 0.75 | 0.70 - 1.30 | [facility] | | | PLASMA | | mg/dL | LABORATORY | | | (LAB) | | | SERVICES, | | | | | | CORE | | + +---------+ + + + | EGFR | >60 | >60 mL/min | [facility] | | | - | | | LABORATORY | | | [place] | | | SERVICES, | | | | | | CORE | | + +---------+ + + + | EGFR NON | >60 | >60 mL/min | [facility] | | | -PARTH | | | LABORATORY | | | [facility] | | | SERVICES, | | | | | | CORE | | + +---------+ + + + | SODIUM, | 139 | 136 - 145 | [facility] | | | PLASMA | | mmol/L | LABORATORY | | | (LAB) | | | SERVICES, | | | | | | CORE | | + +---------+ + + + | POTASSIUM, | 4.0 | 3.4 - 5.0 | [facility] | | | PLASMA | | mmol/L | LABORATORY | | | (LAB) | | | SERVICES, | | | | | | CORE | | + +---------+ + + + | CHLORIDE, | 103 | 97 - 108 mmol/L | [facility] | | | PLASMA | | | LABORATORY | | | (LAB) | | | SERVICES, | | | | | | CORE | | + +---------+ + + + | TOTAL CO2, | 26 | 21 - 32 mmol/L | [facility] | | | PLASMA | | | LABORATORY | | | (LAB) | | | SERVICES, | | | | | | CORE | | + +---------+ + + + | CALCIUM, | 8.2 (L) | 8.6 - 10.2 | [facility] | | | PLASMA | | mg/dL | LABORATORY | | | (LAB) | | | SERVICES, | | | | | | CORE | | + +---------+ + + + | ALBUMIN, | 2.6 (L) | 3.5 - 4.7 g/dL | [facility] | | | PLASMA | | | LABORATORY | | | (LAB) | | | SERVICES, | | | | | | CORE | | + +---------+ + + + | PHOSPHORUS, | 3.6 | 2.4 - 4.7 mg/dL | [facility] | | | PLASMA | | | LABORATORY | | | (LAB) | | | SERVICES, | | | | | | CORE | | + +---------+ + + + | POTASSIUM | No Hemo | | [facility] | | | CMNT | | | LABORATORY | | | | | | SERVICES, | | | | | | CORE | | + +---------+ + + + | ANION GAP | 10 | mmol/L | [facility] | | | | | | LABORATORY | | | | | | SERVICES, | | | | | | CORE | | + +---------+ + + + | ANION | 13 (H) | 4 - 11 mmol/L | [facility] | | | GAP(ALB | | | LABORATORY | | | CORRECTED) | | | SERVICES, | | | | | | CORE | | + +---------+ + + + + + | Specimen | + + | Blood - Blood | + + + + + | Narrative | Performed At | + + + | GFR is estimated using the MDRD equation recommended by the | [facility] | | National Kidney Disease Education Program. Estimated GFR | LABORATORY | | Interpretive Information: <60 mL/min/1.73 sq m | [facility] | | Chronic Kidney Disease <15 mL/min/1.73 sq m | | | Kidney Failure Estimated GFR greater that 60 mL/min/1.73 sq m is of | | | limited clinical value. The MDRD equation is not valid in the | | | following situations: - Patients under 18 years of age - Severe | | | malnutrition or obesity - Vegetarian diet - Rapidly changing kidney | | | function | | + + + + + + + + | Performing | Address | City/State/Zipcode | Phone Number | | Organization | | | | + + + + + | [facility] | [address] | [place] [address] | | | SERVICES, CORE | [address] | | | + + + + + COAGULOPATHY PANEL (INR,APTT,FIBRINOGEN) (06/11/2012 2:40 AM PDT) + + + + + + | Component | Value | Ref Range | Performed | Pathologist | | | | | At | Signature | + + + + + + | INR | 1.37 (H) | 0.90 - 1.20 INR | [facility] | | | | | | LABORATORY | | | | | | SERVICES, | | | | | | CORE | | + + + + + + | APTT | 31.3 | 26.0 - 36.0 | [facility] | | | | | seconds | LABORATORY | | | | | | SERVICES, | | | | | | CORE | | + + + + + + | FIBRINOGEN | 473 (H) | 200 - 450 mg/dL | [facility] | | | LEVEL | | | LABORATORY | | | | | | SERVICES, | | | | | | CORE | | + + + + + + + + | Specimen | + + | Blood - Blood | + + + + + | Narrative | Performed At | + + + | INR Therapeutic ranges for full anticoagulation: INR for | [facility] | | Venous Thromboembolism (2.0 - 3.0) INR INR for | LABORATORY | | most patients with mech. valves (2.5 - 3.5) INR APTT | SERVICES, CORE | | Therapeutic Range: (75 - 120) sec | | | Heparin levels of 0.35 - 0.7 U/mL | | + + + + + + + + | Performing | Address | City/State/Zipcode | Phone Number | | Organization | | | | + + + + + | [facility] | [address] | [place] [address] | | | SERVICES, CORE | [address] | | | + + + + + CBC (06/10/2012 11:41 PM PDT) + + + + + + | Component | Value | Ref Range | Performed | Pathologist | | | | | At | Signature | + + + + + + | WBC COUNT | 14.9 (H) | 4.4 - 11.0 K/cu | [facility] | | | | | mm | LABORATORY | | | | | | SERVICES, | | | | | | CORE | | + + + + + + | RED CELL | 2.73 (L) | 4.50 - 5.90 | [facility] | | | COUNT | | M/cu mm | LABORATORY | | | | | | SERVICES, | | | | | | CORE | | + + + + + + | HEMOGLOBIN | 7.5 (L) | 13.5 - 17.5 | [facility] | | | | | g/dL | LABORATORY | | | | | | SERVICES, | | | | | | CORE | | + + + + + + | HEMATOCRIT | 23.6 (L) | 41.0 - 53.0 % | [facility] | | | | | | LABORATORY | | | | | | SERVICES, | | | | | | CORE | | + + + + + + | MCV | 86.2 | 80.0 - 96.0 fL | [facility] | | | | | | LABORATORY | | | | | | SERVICES, | | | | | | CORE | | + + + + + + | MCHC | 32.0 (L) | 33.4 - 35.5 | [facility] | | | | | g/dL | LABORATORY | | | | | | SERVICES, | | | | | | CORE | | + + + + + + | RDW | 20.4 (H) | 11.5 - 15.0 % | [facility] | | | | | | LABORATORY | | | | | | SERVICES, | | | | | | CORE | | + + + + + + | PLATELET | 457 (H) | 150 - 400 K/cu | [facility] | | | COUNT | | mm | LABORATORY | | | | | | SERVICES, | | | | | | CORE | | + + + + + + + + | Specimen | + + | Blood - Blood | + + + + + + + | Performing | Address | City/State/Zipcode | Phone Number | | Organization | | | | + + + + + | [facility] | [address] | [place] [address] | | | SERVICES, CORE | [address] | | | + + + + + EMBOLIZ EXTRACRANIAL (06/10/2012 2:13 PM PDT) + + + + + + | Component | Value | Ref Range | Performed | Pathologist | | | | | At | Signature | + + + + + + | EMBOLIZ | DATE OF PROCEDURE: May | | | | | EXTRACRANIA | 2012 DIAGNOSIS: | | | | | L | Epistaxis OPERATION: | | | | | | Diagnostic Cerebral | | | | | | Angiogram with | | | | | | embolization ofbilateral | | | | | | internal maxillary | | | | | | arteries PRIMARY | | | | | | SURGEON: Rima Webber, | | | | | | M.D. SAFETY TECHNICIAN SURGEONS: | | | | | | Minor Ahuja, | | | | | | M.D. ANESTHESIA: | | | | | | Moderate Sedation with | | | | | | Fentanyl and Versed | | | | | | DURATION OF PROCEDURE: 2 | | | | | | hours FLUOROSCOPY TIME: | | | | | | 41.7 minutes | | | | | | COMPLICATIONS: None | | | | | | Apparent MATERIALS | | | | | | EMPLOYED: 19g needle; | | | | | | 035 yoon wire; 035 | | | | | | glidewire; 6FEnvoy | | | | | | Catheter; 6F Short | | | | | | Sheath; Renegade 19 | | | | | | 150cm; Synchro | | | | | | 2microwire; Contour | | | | | | 355-500 micron | | | | | | particles; VortX 3 x | | | | | | 3.3mm coils x2; Ronan 3 | | | | | | x 2 coils x 3; VESSELS | | | | | | INJECTED: R CCA; R ECA;L | | | | | | ICA L CCA; L ECA; R | | | | | | internalmaxillary; L | | | | | | internal maxillary;R | | | | | | common femoral VESSELS | | | | | | STUDIED: R CCA, cervical | | | | | | views and intracranial | | | | | | views; R ECA,whole head; | | | | | | L CCA, cervical views | | | | | | and intracranial views; | | | | | | L ICAintracranial views; | | | | | | L ECA, whole head; R | | | | | | internal maxillary; | | | | | | Linternal maxillary; R | | | | | | common femoral | | | | | | CONSENT:The procedure | | | | | | was explained fully to | | | | | | the patient or the | | | | | | patient'ssurrogate, | | | | | | including the risks of | | | | | | stroke, vascular injury | | | | | | at accesssite in leg, | | | | | | renal failure from | | | | | | contrast, serious | | | | | | allergic reactionsfrom | | | | | | medications or contrast, | | | | | | incomplete study, | | | | | | benefits, | | | | | | andalternatives. All | | | | | | questions were answered | | | | | | in detail and the | | | | | | patientdirected me to | | | | | | proceed. INDICATIONS: | | | | | | Patient is a 76 year old | | | | | | male who presents | | | | | | withpersistent right | | | | | | nostril epistaxis for 1 | | | | | | week despite | | | | | | multipleattempts of | | | | | | scoping, packing etc. | | | | | | Patient presents for | | | | | | embolizationas a | | | | | | treatment for epistaxis. | | | | | | PROCEDURE:The patient | | | | | | was taken to the | | | | | | neuroangioraphy suite | | | | | | and the PAUSEperformed | | | | | | per routine with correct | | | | | | patient identification, | | | | | | plannedprocedure, | | | | | | allergies, pertinent | | | | | | renal function, history | | | | | | and physical.A 19-gauge | | | | | | needle is introduced | | | | | | into the right common | | | | | | femoral arteryallowing | | | | | | for the placement of a | | | | | | Bentson wire. Over the | | | | | | Bentson wire,a 6-Mosotho | | | | | | short sheath was | | | | | | placed. Through the | | | | | | 6-Mosotho shortsheath, a | | | | | | 6-Mosotho Envoy was | | | | | | navigated into the Right | | | | | | common carotidartery | | | | | | for angiography of this | | | | | | vessel and then | | | | | | selectively into | | | | | | theright external | | | | | | carotid artery. | | | | | | Through the Envoy, an | | | | | | 021 | | | | | | renegademicrocatheter | | | | | | was introduced and was | | | | | | navigated over a Synchro | | | | | | IImicrowire into the | | | | | | right internal maxillary | | | | | | artery. After | | | | | | ensuringthe absence of | | | | | | dangerous collaterals to | | | | | | the eye or to the | | | | | | internalcarotid artery, | | | | | | the internal maxillary | | | | | | artery was embolized to | | | | | | stasiswith 355-500 | | | | | | micron particles and 2 | | | | | | Ronan coils were placed | | | | | | in thehorizontal | | | | | | segment. A control | | | | | | angiogram was performed | | | | | | to ensurecomplete | | | | | | occlusion of the vessel. | | | | | | A post-embolization | | | | | | whole headright CCA | | | | | | angiogram was then | | | | | | performed. The Envoy | | | | | | catheter waswithdrawn | | | | | | into the aortic arch. | | | | | | The Envoy was then | | | | | | guided over aGlidewire | | | | | | into the Left common | | | | | | carotid artery. After | | | | | | angiography ofthe common | | | | | | carotid artery, the | | | | | | Envoy was guided into | | | | | | the Left ICA | | | | | | forselective angiography | | | | | | of this vessel to | | | | | | better identify | | | | | | theophthalmic artery. | | | | | | The Envoy was withdrawn | | | | | | back into the | | | | | | commoncarotid artery and | | | | | | the Envoy was then | | | | | | guided into the | | | | | | externalcarotid artery | | | | | | for selective | | | | | | angiography of this | | | | | | vessel. Through | | | | | | theEnvoy, an 021 | | | | | | renegade microcatheter | | | | | | was introduced and was | | | | | | navigatedover a Synchro | | | | | | II microwire into the | | | | | | left internal maxillary | | | | | | artery.After ensuring | | | | | | the absence of dangerous | | | | | | collaterals to the eye | | | | | | or tothe internal | | | | | | carotid artery, the left | | | | | | internal maxillary | | | | | | artery wasembolized to | | | | | | stasis with 355-500 | | | | | | micron particles. | | | | | | Additionally, 1Nester | | | | | | coil and 2 VortX coils | | | | | | were placed in the | | | | | | horizontal segment.A | | | | | | control angiogram was | | | | | | performed to ensure | | | | | | complete occlusion of | | | | | | thevessel. A | | | | | | post-embolization whole | | | | | | head left CCA angiogram | | | | | | was thenperformed. The | | | | | | catheter was then | | | | | | withdrawn back into the | | | | | | aorta andwas taken into | | | | | | the right femoral | | | | | | sheath, where an SOTELO | | | | | | projection ofthe Right | | | | | | common femoral artery | | | | | | was obtained. The | | | | | | arteriotomy wasclosed | | | | | | with a starclose device. | | | | | | I was present and | | | | | | participated in | | | | | | theentire procedure as | | | | | | described above. | | | | | | FINDINGS:The right | | | | | | common carotid artery | | | | | | angiogram demonstrates | | | | | | minimalatheromatous | | | | | | disease at the origin | | | | | | with no significant | | | | | | stenosis. The right | | | | | | common carotid artery | | | | | | angiogram of the | | | | | | intracranialcirculation | | | | | | demonstrates mild | | | | | | tortuosity and ectasia | | | | | | within thepetrous and | | | | | | cavernous segments. | | | | | | There was a confirmed | | | | | | choroidal blushseen with | | | | | | flow to the eye from | | | | | | the right ophthalmic | | | | | | artery.Otherwise, there | | | | | | is conventional arterial | | | | | | anatomy without high | | | | | | gradearterial stenosis, | | | | | | or other specific | | | | | | lesion.Venous phase is | | | | | | normal. The right | | | | | | external carotid artery | | | | | | angiogram demonstrates | | | | | | normalarterial | | | | | | anatomywith a slight | | | | | | vascular blush in the | | | | | | midface, withoutevidence | | | | | | of active arterial | | | | | | extravasation.No | | | | | | distinct | | | | | | hypervascularmass lesion | | | | | | is identified. The | | | | | | super selective right | | | | | | internal maxillary | | | | | | artery | | | | | | angiogramdemonstrates | | | | | | moderate hyperemia or | | | | | | blush to the region | | | | | | supplying thenasal | | | | | | mucosa, again without | | | | | | active arterial | | | | | | bleeding. Following | | | | | | embolization of the | | | | | | right internal | | | | | | maxillary, the | | | | | | rightmaxillary artery | | | | | | angiogram demonstrates | | | | | | complete stasis at the | | | | | | levelof the occlusive | | | | | | coils with no evidence | | | | | | of non-target | | | | | | embolization. The post | | | | | | embolization angiogram | | | | | | of the right external | | | | | | carotid arteryangiogram | | | | | | demonstrates no evidence | | | | | | of non-target | | | | | | embolization..Theregion | | | | | | of previously described | | | | | | hypervascularity is | | | | | | reduced inperfusion. | | | | | | Following embolization | | | | | | of the right internal | | | | | | maxillary, the | | | | | | rightcommon carotid | | | | | | artery angiogram | | | | | | demonstrates no evidence | | | | | | ofnon-target | | | | | | embolization within the | | | | | | intracranial vessels. | | | | | | The venousphase was | | | | | | normal. The left common | | | | | | carotid artery angiogram | | | | | | demonstrates | | | | | | minimalatheromatous | | | | | | disease at the origin | | | | | | with no significant | | | | | | stenosis. The left | | | | | | internal carotid artery | | | | | | angiogram demonstrates | | | | | | conventionalarterial | | | | | | anatomy without focal | | | | | | lesion. There is | | | | | | tortuosity andectasia | | | | | | within the intracranial | | | | | | left ICA. The venous | | | | | | phase isnormal. The left | | | | | | external carotid artery | | | | | | angiogram demonstrates | | | | | | conventionalarterial | | | | | | anatomy.There is a | | | | | | moderate region of | | | | | | hyperemia in themidline, | | | | | | supplied primarily by | | | | | | the internal maxillary | | | | | | artery. Thisregion of | | | | | | hypervascularity | | | | | | conforms to the nasal | | | | | | mucosa. No definitemass | | | | | | lesion or arterial | | | | | | extravasation or | | | | | | bleeding is identified. | | | | | | The super selective left | | | | | | internal maxillary | | | | | | artery | | | | | | angiogramdemonstrates | | | | | | prominent vascularity in | | | | | | the midline, again | | | | | | suggestiveof | | | | | | inflammation, without | | | | | | lacey bleeding or | | | | | | extravasation. There | | | | | | wasno choroidal blush | | | | | | visualized. Following | | | | | | embolization of the left | | | | | | internal maxillary | | | | | | artery, theleft internal | | | | | | maxillary artery | | | | | | angiogram demonstrates | | | | | | near-completestasis at | | | | | | the level of occlusive | | | | | | coils. The post | | | | | | embolization angiogram | | | | | | of the left external | | | | | | carotid arteryangiogram | | | | | | demonstrates significant | | | | | | reduction of arterial | | | | | | blush | | | | | | andhypervascularity of | | | | | | the nasal mucosa as | | | | | | compared to the | | | | | | preembolization study.. | | | | | | Following embolization, | | | | | | the left common carotid | | | | | | artery | | | | | | angiogramdemonstrates no | | | | | | evidence of non-target | | | | | | embolization within | | | | | | theintracranial vessels. | | | | | | The venous phase was | | | | | | normal. The right common | | | | | | femoral arteriogram | | | | | | demonstrates | | | | | | significantatheromatous | | | | | | plaque within the | | | | | | proximal portion of the | | | | | | right commonfemoral | | | | | | arteriogram with | | | | | | approximately 50% | | | | | | stenosis based on | | | | | | modifiedNASCET criteria. | | | | | | IMPRESSION: This | | | | | | angiogram demonstrates | | | | | | successful embolization | | | | | | ofthe bilateral internal | | | | | | maxillary arteries with | | | | | | particles and coilswith | | | | | | no evidence of | | | | | | nontarget embolization. | | | | | | Attending | | | | | | Radiologists: RIMA | | | | | | JANET WEBBERuthor: | | | | | | MINOR AHUJA MD | | | | | | I have personally viewed | | | | | | this procedure/exam, | | | | | | reviewed this report,and | | | | | | made changes to it | | | | | | where appropriate. | | | | | | Final/Electronically | | | | | | signed / RIMA WEBBER | | | | | | 06/10/2012 16:34 PM | | | | | | Pending final approval | | | | | | / MINOR | | | | | | LEIGHA 06/10/2012 | | | | | | 15:04 PM Preliminary / | | | | | | MINOR AHUJA | | | | | | 06/10/2012 14:29 PM | | | | + + + + + + + + | Specimen | + + | | + + + +---------+ + + | Performing | Address | City/State/Zipcode | Phone Number | | Organization | | | | + +---------+ + + | [facility] | | | | [facility] | | | | + +---------+ + + ANTIBODY SCREEN (06/10/2012 11:52 AM PDT) + + + + + + | Component | Value | Ref Range | Performed | Pathologist | | | | | At | Signature | + + + + + + | Antibody | Negative | | [facility] | | | Screen | | | LABORATORY | | | | | | SERVICES, | | | | | | TRANSFUSION | | | | | | MEDICINE | | + + + + + + + + | Specimen | + + | Blood - Blood | + + + + + + + | Performing | Address | City/State/Zipcode | Phone Number | | Organization | | | | + + + + + | [facility] | [address] | [place] [address] | | | SERVICES, | [address] | | | | TRANSFUSION MEDICINE | | | | + + + + + ABO & RH TYPE (06/10/2012 11:52 AM PDT) + + + + + + | Component | Value | Ref Range | Performed | Pathologist | | | | | At | Signature | + + + + + + | ABO Group | B | | [facility] | | | | | | LABORATORY | | | | | | SERVICES, | | | | | | TRANSFUSION | | | | | | MEDICINE | | + + + + + + | Rh Type | Positive | | [facility] | | | | | | LABORATORY | | | | | | SERVICES, | | | | | | TRANSFUSION | | | | | | MEDICINE | | + + + + + + + + | Specimen | + + | Blood - Blood | + + + + + + + | Performing | Address | City/State/Zipcode | Phone Number | | Organization | | | | + + + + + | [facility] | [address] | [place] [address] | | | SERVICES, | [address] | | | | TRANSFUSION MEDICINE | | | | + + + + + CBC (06/10/2012 6:48 AM PDT) + + + + + + | Component | Value | Ref Range | Performed | Pathologist | | | | | At | Signature | + + + + + + | WBC COUNT | 10.9 | 4.4 - 11.0 K/cu | [facility] | | | | | mm | LABORATORY | | | | | | SERVICES, | | | | | | CORE | | + + + + + + | RED CELL | 2.93 (L) | 4.50 - 5.90 | [facility] | | | COUNT | | M/cu mm | LABORATORY | | | | | | SERVICES, | | | | | | CORE | | + + + + + + | HEMOGLOBIN | 8.0 (L) | 13.5 - 17.5 | [facility] | | | | | g/dL | LABORATORY | | | | | | SERVICES, | | | | | | CORE | | + + + + + + | HEMATOCRIT | 24.8 (L) | 41.0 - 53.0 % | [facility] | | | | | | LABORATORY | | | | | | SERVICES, | | | | | | CORE | | + + + + + + | MCV | 84.8 | 80.0 - 96.0 fL | [facility] | | | | | | LABORATORY | | | | | | SERVICES, | | | | | | CORE | | + + + + + + | MCHC | 32.3 (L) | 33.4 - 35.5 | [facility] | | | | | g/dL | LABORATORY | | | | | | SERVICES, | | | | | | CORE | | + + + + + + | RDW | 19.7 (H) | 11.5 - 15.0 % | [facility] | | | | | | LABORATORY | | | | | | SERVICES, | | | | | | CORE | | + + + + + + | PLATELET | 380 | 150 - 400 K/cu | [facility] | | | COUNT | | mm | LABORATORY | | | | | | SERVICES, | | | | | | CORE | | + + + + + + + + | Specimen | + + | Blood - Blood | + + + + + + + | Performing | Address | City/State/Zipcode | Phone Number | | Organization | | | | + + + + + | [facility] | [address] | [place] [address] | | | SERVICES, CORE | [address] | | | + + + + + CHEM 8 W/H&H,POC (06/09/2012 8:55 PM PDT) + +---------+ + + + | Component | Value | Ref Range | Performed | Pathologist | | | | | At | Signature | + +---------+ + + + | SODIUM, POC | 136 | 134 - 143 | [facility] - | | | | | mmol/L | [facility] | | | | | | [facility] | | | | | | OF CARE | | | | | | TESTS | | + +---------+ + + + | POTASSIUM, | 4.2 | 3.4 - 5.0 | [facility] - | | | POC | | mmol/L | [facility] | | | | | | [facility] | | | | | | OF CARE | | | | | | TESTS | | + +---------+ + + + | CHLORIDE, | 100.0 | 97 - 108 mmol/L | [facility] - | | | POC | | | [facility] | | | | | | [facility] | | | | | | OF CARE | | | | | | TESTS | | + +---------+ + + + | IONIZED | 1.17 | 1.14 - 1.32 | [facility] - | | | CALCIUM, | | mmol/L | [facility] | | | POC | | | [facility] | | | | | | OF CARE | | | | | | TESTS | | + +---------+ + + + | TCO2, POC | 27 | mmol/L | [facility] - | | | | | | [facility] | | | | | | [facility] | | | | | | OF CARE | | | | | | TESTS | | + +---------+ + + + | GLUCOSE, | 96 | 60 - 99 mg/dL | [facility] - | | | POC | | | [facility] | | | | | | [facility] | | | | | | OF CARE | | | | | | TESTS | | + +---------+ + + + | BUN, POC | 10 | 6 - 20 mg/dL | [facility] - | | | | | | [facility] | | | | | | [facility], POINT | | | | | | OF CARE | | | | | | TESTS | | + +---------+ + + + | CREATININE, | 0.8 | 0.7 - 1.3 mg/dL | [facility] - | | | POC | | | [facility] | | | | | | [facility] | | | | | | OF CARE | | | | | | TESTS | | + +---------+ + + + | HEMOGLOBIN, | 8.8 (L) | 13.5 - 17.5 | [facility] - | | | POC | | g/dL | [facility] | | | | | | [facility] POINT | | | | | | OF CARE | | | | | | TESTS | | + +---------+ + + + | HEMATOCRIT, | 26 (L) | 41.0 - 53.0 | [facility] - | | | POC | | %PCV | [facility] | | | | | | [facility] | | | | | | OF CARE | | | | | | TESTS | | + +---------+ + + + + + | Specimen | + + | | + + + + + + + | Performing | Address | City/State/Zipcode | Phone Number | | Organization | | | | + + + + + | [facility] | [address] | [place], [place] | | | [place] | [address] | [phone] | | | TESTS | | | | + + + + + LAB REPORTS (06/09/2012 12:00 AM PDT) + + + | Narrative | Performed At | + + + | | | | | | + + + + + | Procedure Note | + + | Cortney Babcock - 06/16/2012 9:17 AM PDT | + + documented in this encounter Visit Diagnoses + + | Diagnosis | + + | Epistaxis - Primary | + + | Anemia Anemia, unspecified | + + documented in this encounter Administered Medications + +--------+ +--------+------+------+ | Medication Order | MAR | Action | Dose | Rate | Site | | | Action | Date | | | | + +--------+ +--------+------+------+ | acetaminophen (aka TYLENOL) | Given | 06/14/19 | 650 mg | | | | tablet 650 mg 650 mg, oral, | | 13 8:32 | | | | | NEEDED, 1 dose, Starting Sat | | AM PDT | | | | | 06/11/12 at 0300, Until Mon | | | | | | | 06/13/12 at 0832, premedication | | | | | | | for blood transfusion | | | | | | + +--------+ +--------+------+------+ +---+---+ | | | +---+---+ + +-------+ +------+---+---+ | amLODIPine (aka NORVASC) tablet | Given | 06/15/19 | 5 mg | | | | 5 mg 5 mg, oral, EVERY MORNING, | | 13 9:05 | | | | | First dose on Wed06/10/12 at | | AM PDT | | | | | 0900, Until Discontinued | | | | | | + +-------+ +------+---+---+ +-------+ +------+---+---+ | Given | 06/14/19 | 5 mg | | | | | 13 8:26 | | | | | | AM PDT | | | | +-------+ +------+---+---+ | Given | 06/13/19 | 5 mg | | | | | 13 10:03 | | | | | | AM PDT | | | | +-------+ +------+---+---+ +---+---+ | | | +---+---+ + +-------+ +--------+---+---+ | ascorbic acid tablet 250 mg | Given | 06/15/19 | 250 mg | | | | 250 mg, oral, TWICE DAILY, First | | 13 9:06 | | | | | dose on Wed06/10/12 at 0145, | | AM PDT | | | | | Until Discontinued | | | | | | + +-------+ +--------+---+---+ +-------+ +--------+---+---+ | Given | 06/14/19 | 250 mg | | | | | 13 8:55 | | | | | | PM PDT | | | | +-------+ +--------+---+---+ | Given | 06/14/19 | 250 mg | | | | | 13 8:26 | | | | | | AM PDT | | | | +-------+ +--------+---+---+ +---+---+ | | | +---+---+ + +---------+ +-----+--------+---+ | ceFAZolin (aka ANCEF) IV 1 g 1 | New Bag | 06/15/19 | 1 g | mL/hr | | | g, intravenous, EVERY 8 HOURS, | | 13 9:01 | | | | | First dose on 06/11/12 at | | AM PDT | | | | | 0930, Until Discontinued | | | | | | + +---------+ +-----+--------+---+ +---------+ +-----+--------+---+ | New Bag | 06/15/19 | 1 g | mL/hr | | | | 13 1:09 | | | | | | AM PDT | | | | +---------+ +-----+--------+---+ | New Bag | 06/14/19 | 1 g | mL/hr | | | | 13 6:11 | | | | | | PM PDT | | | | +---------+ +-----+--------+---+ +---+---+ | | | +---+---+ + +-------+ +--------+---+---+ | cephALEXin (aka KEFLEX) capsule | Given | 06/11/19 | 500 mg | | | | 500 mg 500 mg, oral, EVERY 6 | | 13 10:33 | | | | | HOURS, First dose on Wed06/10/12 | | PM PDT | | | | | at 0400, Until Discontinued | | | | | | + +-------+ +--------+---+---+ +-------+ +--------+---+---+ | Given | 06/11/19 | 500 mg | | | | | 13 5:31 | | | | | | PM PDT | | | | +-------+ +--------+---+---+ | Given | 06/11/19 | 500 mg | | | | | 13 10:47 | | | | | | AM PDT | | | | +-------+ +--------+---+---+ +---+---+ | | | +---+---+ + +-------+ +------+---+---+ | cetirizine (aka ZYRTEC) tablet | Given | 06/15/19 | 5 mg | | | | 5 mg 5 mg, oral, TWICE DAILY, | | 13 9:06 | | | | | First dose on Wed06/10/12 at | | AM PDT | | | | | 0145, Until Discontinued | | | | | | + +-------+ +------+---+---+ +-------+ +------+---+---+ | Given | 06/14/19 | 5 mg | | | | | 13 8:55 | | | | | | PM PDT | | | | +-------+ +------+---+---+ | Given | 06/14/19 | 5 mg | | | | | 13 8:26 | | | | | | AM PDT | | | | +-------+ +------+---+---+ +---+---+ | | | +---+---+ + +-------+ +-------+---+---+ | diphenhydrAMINE (aka ANAHYADRYL) | Given | 06/13/19 | 50 mg | | | | capsule 50 mg 50 mg, oral, | | 13 2:25 | | | | | NEEDED, 1 dose, Starting Sat | | AM PDT | | | | | 06/11/12 at 0300, Until Sun | | | | | | | 06/12/12 at 0225, premedication | | | | | | | for blood transfusion | | | | | | + +-------+ +-------+---+---+ +---+---+ | | | +---+---+ + +---------+ +--------+--------+---+ | fentaNYL citrate (PF) (aka | New Bag | 06/11/19 | 50 mcg | mL/hr | | | SUBLIMAZE) injection 25-100 mcg | | 13 12:15 | | | | | 25-100 mcg, intravenous, | | PM PDT | | | | | INTRAPROCEDURE PRN, Starting Fri | | | | | | | 06/10/12 at 1156, Until Fri | | | | | | | 06/10/12 at 1421, sedation | | | | | | + +---------+ +--------+--------+---+ +---+---+ | | | +---+---+ + +---------+ +--------+--------+---+ | fentaNYL citrate (PF) (aka | New Bag | 06/11/19 | 25 mcg | mL/hr | | | SUBLIMAZE) injection 25-50 mcg | | 13 11:51 | | | | | 25-50 mcg, intravenous, EVERY 4 | | PM PDT | | | | | HOURS NEEDED, Starting Fri | | | | | | | 06/10/12 at 1452, Until Sat | | | | | | | 06/11/12 at 0033, moderate pain | | | | | | + +---------+ +--------+--------+---+ +---------+ +--------+--------+---+ | New Bag | 06/11/19 | 25 mcg | mL/hr | | | | 13 11:09 | | | | | | PM PDT | | | | +---------+ +--------+--------+---+ | New Bag | 06/11/19 | 25 mcg | mL/hr | | | | 13 10:11 | | | | | | PM PDT | | | | +---------+ +--------+--------+---+ +---+---+ | | | +---+---+ + +---------+ +--------+--------+---+ | fentaNYL citrate (PF) (aka | New Bag | 06/12/19 | 25 mcg | mL/hr | | | SUBLIMAZE) injection 25-50 mcg | | 13 9:38 | | | | | 25-50 mcg, intravenous, EVERY 2 | | AM PDT | | | | | HOURS NEEDED, Starting Sat | | | | | | | 06/11/12 at 0045, Until Tue | | | | | | | 06/14/12 at 2150, moderate pain | | | | | | + +---------+ +--------+--------+---+ +---------+ +--------+--------+---+ | New Bag | 06/12/19 | 25 mcg | mL/hr | | | | 13 7:54 | | | | | | AM PDT | | | | +---------+ +--------+--------+---+ | New Bag | 06/12/19 | 25 mcg | mL/hr | | | | 13 3:55 | | | | | | AM PDT | | | | +---------+ +--------+--------+---+ +---+---+ | | | +---+---+ + +---------+ +--------+--------+---+ | fentaNYL citrate (PF) (aka | IV Push | 06/10/19 | 50 mcg | mL/hr | | | SUBLIMAZE) injection 50 mcg 50 | | 13 9:57 | | | | | mcg, intravenous, ONCE, 1 dose, | | PM PDT | | | | | Kristen 06/09/12 at 2230 | | | | | | + +---------+ +--------+--------+---+ +---+---+ | | | +---+---+ + +---------+ +--------+--------+---+ | fentaNYL citrate (PF) (aka | IV Push | 06/10/19 | 50 mcg | mL/hr | | | SUBLIMAZE) injection 50 mcg 50 | | 13 10:52 | | | | | mcg, intravenous, ONCE, 1 dose, | | PM PDT | | | | | Kristen 06/09/12 at 2330 | | | | | | + +---------+ +--------+--------+---+ +---+---+ | | | +---+---+ + +---------+ +--------+--------+---+ | fentaNYL citrate (PF) (aka | IV Push | 06/11/19 | 50 mcg | mL/hr | | | SUBLIMAZE) injection 50 mcg 50 | | 13 12:12 | | | | | mcg, intravenous, ONCE, 1 dose, | | AM PDT | | | | | 06/10/12 at 0045 | | | | | | + +---------+ +--------+--------+---+ + +---+ | | | + +---+ | fentaNYL citrate (PF) (aka | | | SUBLIMAZE) injection 1 dose, | | | Starting Kristen 06/09/12 at 2155, | | | Until Kristen 06/09/12 at 2157 | | + +---+ | | | + +---+ + +-------+ +---------+---+---+ | ferrous sulfate tablet 325 mg | Given | 06/15/19 | 325 mg | | | | total salt 325 mg total salt, | | 13 9:06 | total | | | | oral, DAILY, First dose on Wed | | AM PDT | salt | | | | 06/10/12 at 0900, Until | | | | | | | Discontinued | | | | | | + +-------+ +---------+---+---+ +-------+ +---------+---+---+ | Given | 06/14/19 | 325 mg | | | | | 13 8:26 | total | | | | | AM PDT | salt | | | +-------+ +---------+---+---+ | Given | 06/13/19 | 325 mg | | | | | 13 10:03 | total | | | | | AM PDT | salt | | | +-------+ +---------+---+---+ +---+---+ | | | +---+---+ + +-------+ +--------+---+---+ | fluticasone (aka FLOVENT) 220 | Given | 06/15/19 | 1 puff | | | | mcg/actuation inhaler 1 Puff 1 | | 13 9:01 | | | | | puff, inhalation, TWICE DAILY, | | AM PDT | | | | | First dose (after last | | | | | | | modification) on Wed06/10/12 at | | | | | | | 0145, Until Discontinued | | | | | | + +-------+ +--------+---+---+ +-------+ +--------+---+---+ | Given | 06/14/19 | 1 puff | | | | | 13 8:55 | | | | | | PM PDT | | | | +-------+ +--------+---+---+ | Given | 06/14/19 | 1 puff | | | | | 13 8:27 | | | | | | AM PDT | | | | +-------+ +--------+---+---+ +---+---+ | | | +---+---+ + +---------+ +--------+--------+---+ | HYDROmorphone (aka DILAUDID) | New Bag | 06/12/19 | 0.2 mg | mL/hr | | | injection 0.2-0.5 mg 0.2-0.5 mg, | | 13 7:47 | | | | | intravenous, POSTPROCEDURE PRN, | | PM PDT | | | | | Starting 06/11/12 at 1730, | | | | | | | Until 06/11/12 at 2024, | | | | | | | moderate pain | | | | | | + +---------+ +--------+--------+---+ +---+---+ | | | +---+---+ + +---------+ +------+--------+---+ | HYDROmorphone (aka DILAUDID) | New Bag | 06/11/19 | 2 mg | mL/hr | | | injection 2 mg 2 mg, | | 13 6:46 | | | | | intravenous, ONCE, 1 dose, Fri | | AM PDT | | | | | 06/10/12 at 0715 | | | | | | + +---------+ +------+--------+---+ + +---+ | | | + +---+ | HYDROmorphone (mindya DILAUDID) | | | injection 1 dose, Starting Fri | | | 06/10/12 at 0641, Until Fri | | | 06/10/12 at 0646 | | + +---+ | | | + +---+ + +-------+ +--------+---+---+ | iohexol (aka OMNIPAQUE) | Given | 06/11/19 | 150 mL | | | | injection 150 mL 150 mL, | | 13 2:11 | | | | | intra-arterial, PROCEDURE ONCE, 1 | | PM PDT | | | | | dose, 06/10/12 at 1415 | | | | | | + +-------+ +--------+---+---+ +---+---+ | | | +---+---+ + +---------+ +-------+-------+---+ | lactated ringers IV 100 mL/hr, | New Bag | 06/11/19 | 100 | 100 | | | intravenous, CONTINUOUS, | | 13 2:13 | mL/hr | mL/hr | | | Starting Fri 13 at 0145, | | AM PDT | | | | | Until Wed06/10/12 at 2151 | | | | | | + +---------+ +-------+-------+---+ +---+---+ | | | +---+---+ + +---------+ +-------+-------+---+ | lactated ringers IV 125 mL/hr, | New Bag | 06/12/19 | 125 | 125 | | | intravenous, CONTINUOUS, | | 13 1:55 | mL/hr | mL/hr | | | Starting Wed06/10/12 at 2200, | | AM PDT | | | | | Until [place] 06/12/12 at 1015 | | | | | | + +---------+ +-------+-------+---+ + + +-------+-------+---+ | Rate/Dose Change | 06/11/19 | 125 | 125 | | | | 13 9:00 | mL/hr | mL/hr | | | | PM PDT | | | | + + +-------+-------+---+ +---+---+ | | | +---+---+ + +---------+ + +--------+---+ | lactated ringers IV 1,000 mL, | New Bag | 06/12/19 | 1,000 mL | mL/hr | | | intravenous, ONCE, 1 dose, Sat | | 13 12:11 | | | | | 06/11/12 at 0015 | | AM PDT | | | | + +---------+ + +--------+---+ +---+---+ | | | +---+---+ + +-------+ +-------+---+---+ | loratadine (aka CLARITIN) | Given | 06/15/19 | 10 mg | | | | tablet 10 mg 10 mg, oral, DAILY, | | 13 9:06 | | | | | First dose on Wed06/10/12 at | | AM PDT | | | | | 0900, Until Discontinued | | | | | | + +-------+ +-------+---+---+ +-------+ +-------+---+---+ | Given | 06/14/19 | 10 mg | | | | | 13 8:26 | | | | | | AM PDT | | | | +-------+ +-------+---+---+ | Given | 06/13/19 | 10 mg | | | | | 13 10:03 | | | | | | AM PDT | | | | +-------+ +-------+---+---+ +---+---+ | | | +---+---+ + +---------+ +--------+--------+---+ | LORazepam (mindya ATIVAN) | New Bag | 06/12/19 | 0.5 mg | mL/hr | | | injection 0.5 mg 0.5 mg, | | 13 12:10 | | | | | intravenous, ONCE, 1 dose, Sat | | AM PDT | | | | | 06/11/12 at 0045 | | | | | | + +---------+ +--------+--------+---+ + +---+ | | | + +---+ | LORazepam (aka ATIVAN) | | | injection 1 dose, Starting Sat | | | 06/11/12 at 0001, Until Sat | | | 06/11/12 at 0010 | | + +---+ | | | + +---+ + +---------+ +-----+--------+---+ | magnesium sulfate in D5W IV 4 g | New Bag | 06/15/19 | 4 g | mL/hr | | | 4 g, intravenous, ONCE, 1 dose, | | 13 12:08 | | | | | 06/13/12 at 2330 | | AM PDT | | | | + +---------+ +-----+--------+---+ +---+---+ | | | +---+---+ + +---------+ +------+--------+---+ | midazolam (aka VERSED) | New Bag | 06/11/19 | 1 mg | mL/hr | | | injection 0.25-2 mg 0.25-2 mg, | | 13 12:15 | | | | | intravenous, INTRAPROCEDURE PRN, | | PM PDT | | | | | Starting 06/10/12 at 1156, | | | | | | | Until 06/10/12 at 1421, | | | | | | | sedation | | | | | | + +---------+ +------+--------+---+ +---+---+ | | | +---+---+ + +---------+ +------+--------+---+ | morphine injection 2 mg 2 mg, | New Bag | 06/12/19 | 2 mg | mL/hr | | | intravenous, ONCE, 1 dose, Sat | | 13 10:26 | | | | | 06/11/12 at 1030 | | AM PDT | | | | + +---------+ +------+--------+---+ + +---+ | | | + +---+ | morphine injection 1 dose, | | | Starting 06/11/12 at 1020, | | | Until 4/20/13 at 1026 | | + +---+ | | | + +---+ + +---------+ +--------+--------+---+ | NaCl 0.9 % IV 500 mL, | New Bag | 06/10/19 | 500 mL | mL/hr | | | intravenous, ONCE, 1 dose, Kristen | | 13 8:49 | | | | | 06/09/12 at 2100 | | PM PDT | | | | + +---------+ +--------+--------+---+ +---+---+ | | | +---+---+ + +-------+ +-------+---+---+ | omeprazole (aka PRILOSEC) | Given | 06/15/19 | 20 mg | | | | capsule 20 mg 20 mg, oral, EVERY | | 13 9:05 | | | | | MORNING, First dose on Fri | | AM PDT | | | | | 06/10/12 at 0900, Until | | | | | | | Discontinued | | | | | | + +-------+ +-------+---+---+ +-------+ +-------+---+---+ | Given | 06/14/19 | 20 mg | | | | | 13 8:26 | | | | | | AM PDT | | | | +-------+ +-------+---+---+ | Given | 06/13/19 | 20 mg | | | | | 13 10:03 | | | | | | AM PDT | | | | +-------+ +-------+---+---+ +---+---+ | | | +---+---+ + +---------+ +------+--------+---+ | ondansetron (nataly COLLINS) | IV Push | 06/10/19 | 4 mg | mL/hr | | | injection 4 mg 4 mg, | | 13 8:50 | | | | | intravenous, ONCE, 1 dose, Kristen | | PM PDT | | | | | 06/09/12 at 2100 | | | | | | + +---------+ +------+--------+---+ +---+---+ | | | +---+---+ + +---------+ +------+--------+---+ | ondansetron (aka ZOFRAN) | New Bag | 06/13/19 | 4 mg | mL/hr | | | injection 4 mg 4 mg, | | 13 10:54 | | | | | intravenous, EVERY 12 HOURS | | AM PDT | | | | | NEEDED, Starting Wed06/10/12 at | | | | | | | 0130, Until Wed06/14/12 at 2150, | | | | | | | nausea/vomiting | | | | | | + +---------+ +------+--------+---+ +---------+ +------+--------+---+ | New Bag | 06/12/19 | 4 mg | mL/hr | | | | 13 10:05 | | | | | | AM PDT | | | | +---------+ +------+--------+---+ | New Bag | 06/11/19 | 4 mg | mL/hr | | | | 13 8:21 | | | | | | PM PDT | | | | +---------+ +------+--------+---+ +---+---+ | | | +---+---+ + +---------+ +------+--------+---+ | ondansetron (aka ZOFRAN) | IV Push | 06/10/19 | 4 mg | mL/hr | | | injection 4 mg 4 mg, | | 13 10:51 | | | | | intravenous, ONCE, 1 dose, Kristen | | PM PDT | | | | | 06/09/12 at 2330 | | | | | | + +---------+ +------+--------+---+ +---+---+ | | | +---+---+ + +---------+ +------+--------+---+ | ondansetron (aka ZOFRAN) | New Bag | 06/11/19 | 4 mg | mL/hr | | | injection 4 mg 4 mg, | | 13 12:32 | | | | | intravenous, INTRAPROCEDURE PRN, | | PM PDT | | | | | 1 dose, Starting Wed06/10/12 at | | | | | | | 1156, Until Wed06/10/12 at 1232, | | | | | | | nausea/vomiting | | | | | | + +---------+ +------+--------+---+ + +---+ | | | + +---+ | ondansetron (aka ZOTRACI) | | | injection 1 dose, Starting Kristen | | | 06/09/12 at 2249, Until Kristen | | | 06/09/12 at 2251 | | + +---+ | | | + +---+ + +-------+ +------+---+---+ | oxyCODONE (immediate release) | Given | 06/14/19 | 5 mg | | | | (aka ROXICODONE) tablet 5 mg 5 | | 13 1:47 | | | | | mg, oral, EVERY 6 HOURS | | PM PDT | | | | | NEEDED, Starting 06/10/12 at | | | | | | | 0130, Until 06/13/12 at 1529, | | | | | | | severe pain | | | | | | + +-------+ +------+---+---+ +-------+ +------+---+---+ | Given | 06/14/19 | 5 mg | | | | | 13 8:17 | | | | | | AM PDT | | | | +-------+ +------+---+---+ | Given | 06/13/19 | 5 mg | | | | | 13 8:30 | | | | | | PM PDT | | | | +-------+ +------+---+---+ +---+---+ | | | +---+---+ + +-------+ +------+---+---+ | oxyCODONE (immediate release) | Given | 06/15/19 | 5 mg | | | | (aka ROXICODONE) tablet 5-10 mg | | 13 2:17 | | | | | 5-10 mg, oral, EVERY 6 HOURS | | PM PDT | | | | | NEEDED, Starting Wed06/13/12 at | | | | | | | 1529, Until Wed06/14/12 at 2150, | | | | | | | severe pain | | | | | | + +-------+ +------+---+---+ +-------+ +-------+---+---+ | Given | 06/15/19 | 5 mg | | | | | 13 5:42 | | | | | | AM PDT | | | | +-------+ +-------+---+---+ | Given | 06/14/19 | 10 mg | | | | | 13 7:14 | | | | | | PM PDT | | | | +-------+ +-------+---+---+ +---+---+ | | | +---+---+ + +-------+ + +---+---+ | oxymetazoline (aka AFRIN) 0.05 | Given | 06/15/19 | 2 sprays | | | | % nasal spray 2 [place] 2 spray, | | 13 9:01 | | | | | both nostrils, EVERY 6 HOURS, | | AM PDT | | | | | First dose on Wed06/10/12 at | | | | | | | 0400, Until Discontinued | | | | | | + +-------+ + +---+---+ +-------+ + +---+---+ | Given | 06/15/19 | 2 sprays | | | | | 13 1:09 | | | | | | AM PDT | | | | +-------+ + +---+---+ | Given | 06/12/19 | 2 sprays | | | | | 13 2:18 | | | | | | AM PDT | | | | +-------+ + +---+---+ +---+---+ | | | +---+---+ + +-------+ +------+---+---+ | polyethylene glycol (aka | Given | 06/11/19 | 17 g | | | | MIRALAX) powder 17 g 17 g, oral, | | 13 8:37 | | | | | DAILY, First dose on Wed06/10/12 | | AM PDT | | | | | at 0900, Until Discontinued | | | | | | + +-------+ +------+---+---+ +---+---+ | | | +---+---+ + +---------+ +--------+--------+---+ | potassium chloride IV 40 mEq | New Bag | 06/15/19 | 40 mEq | mL/hr | | | 40 mEq, intravenous, ONCE, 1 | | 13 12:12 | | | | | dose, 06/13/12 at 2330 | | AM PDT | | | | + +---------+ +--------+--------+---+ +---+---+ | | | +---+---+ + +---------+ +---------+--------+---+ | promethazine (aka PHENERGAN) | New Bag | 06/13/19 | 6.25 mg | mL/hr | | | injection 12.5 mg 12.5 mg, | | 13 12:33 | | | | | intravenous, EVERY 6 HOURS | | PM PDT | | | | | NEEDED, Starting Wed06/10/12 at | | | | | | | 0158, Until Wed06/14/12 at 2150, | | | | | | | nausea/vomiting | | | | | | + +---------+ +---------+--------+---+ +---------+ +---------+--------+---+ | New Bag | 06/13/19 | 6.25 mg | mL/hr | | | | 13 11:22 | | | | | | AM PDT | | | | +---------+ +---------+--------+---+ | New Bag | 06/11/19 | 12.5 mg | mL/hr | | | | 13 10:10 | | | | | | PM PDT | | | | +---------+ +---------+--------+---+ +---+---+ | | | +---+---+ + +-------+ + +---+---+ | sodium chloride (aka OCEAN) | Given | 06/15/19 | 2 sprays | | | | 0.65 % nasal spray 2 [place] 2 | | 13 2:17 | | | | | spray, nasal, EVERY 2 HOURS WHILE | | PM PDT | | | | | AWAKE, First dose on Wed06/10/12 | | | | | | | at 2000, Until Discontinued | | | | | | + +-------+ + +---+---+ + + + +---+---+ | Pt Administered | 06/15/19 | 2 sprays | | | | | 13 1:02 | | | | | | PM PDT | | | | + + + +---+---+ | Given | 06/15/19 | 2 sprays | | | | | 13 9:01 | | | | | | AM PDT | | | | + + + +---+---+ +---+---+ | | | +---+---+ + +-------+ +--------+---+---+ | tamsulosin (aka FLOMAX) capsule | Given | 06/14/19 | 0.4 mg | | | | 0.4 mg 0.4 mg, oral, EVERY | | 13 8:55 | | | | | EVENING, First dose on Fri | | PM PDT | | | | | 06/10/12 at 2100, Until | | | | | | | Discontinued | | | | | | + +-------+ +--------+---+---+ +-------+ +--------+---+---+ | Given | 06/13/19 | 0.4 mg | | | | | 13 8:22 | | | | | | PM PDT | | | | +-------+ +--------+---+---+ | Given | 06/12/19 | 0.4 mg | | | | | 13 10:21 | | | | | | PM PDT | | | | +-------+ +--------+---+---+ +---+---+ | | | +---+---+ + +-------+ +-------+---+---+ | temazepam (aka RESTORIL) | Given | 06/15/19 | 15 mg | | | | capsule 15 mg 15 mg, oral, AT | | 13 12:06 | | | | | BEDTIME NEEDED, Starting Fri | | AM PDT | | | | | 06/10/12 at 0130, Until Tue | | | | | | | 06/14/12 at 2150, insomnia | | | | | | + +-------+ +-------+---+---+ +-------+ +-------+---+---+ | Given | 06/13/19 | 15 mg | | | | | 13 10:37 | | | | | | PM PDT | | | | +-------+ +-------+---+---+ | Given | 06/11/19 | 15 mg | | | | | 13 2:34 | | | | | | AM PDT | | | | +-------+ +-------+---+---+ +---+---+ | | | +---+---+ documented in this encounter
--- OUTSIDE RECORDS SUMMARY | ~2019-02-24 | XMS | Encounter Summary ---
Demographics + + + | Address | [address] | | | [place] [address] | + + + | Home Phone | | + + + | Preferred Language | Unknown | + + + | Marital Status | | + + + | Baptist Affiliation | 1076 | + + + | Race | Unknown | + + + | Ethnic Group | Unknown | + + + Author + + + | Author | [facility] | | | and [place] | + + + | Organization | [facility] | | | and [...] Team Providers + +------+ + | Care Curb Machine Operator Name | Role | Phone | + +------+ + | Parviz Brar DO | PCP | | + +------+ + Encounter Details +--------+---------+ + + + | Date | Type | Department | Care Team | Description | +--------+---------+ + + + | 12/10/ | Office | [facility] | [place], | COPD (chronic | | 2015 | Visit | PULMONARY [address] | Billy Segura MD | obstructive | | | | [place], | | pulmonary disease) | | | | [place] [address] | | (Primary Dx); | | | | [phone] | | Nocturnal hypoxemia | | | | | | due to emphysema | | | | | | ([facility]) | +--------+---------+ + + + [...] | + +---+---+---+ + + | Comments: Smoked cigarettes for [...] + + + | Blood Pressure | 124/74 | 12/10/2014 12:59 PM | | | | | PDT | | + + + + + | Pulse | 81 | 12/10/2014 12:59 PM | | | | | PDT | | + + + + + | Temperature | - | - | | + + + + + | Respiratory Rate | 16 | 12/10/2014 12:59 PM | | | | | PDT | | + + + + + | Oxygen Saturation | 93% | 12/10/2014 12:59 PM | | | | | PDT | | + + + + + | Inhaled Oxygen | - | - | | | Concentration | | | | + + + + + | Weight | 78.9 kg (174 lb) | 12/10/2014 12:59 PM | | | | | PDT | | + + + + + | Height | 177.8 cm (5' 10") | 12/10/2014 12:59 PM | | | | | PDT | | + + + + + | Body Mass Index | 24.97 | 12/10/2014 12:59 PM | | | | | PDT | | + + + + + documented in this encounter Patient Instructions Patient Instructions Billy Araujo MD - 12/10/2014 1:28 PM ARIANEI would find out in Dr. Branch still sees patients one day a week in [place]. Stop the Qvar. Start on Breo 1 inhalation once daily, rinse after using. If this is not covered, let us kn ow, and we will try something else. Stay on the Atrovent 4 times daily. Continue the Ventolin as needed, but hopefully you will need less often. Electronically sig belinda by Billy Araujo MD at 12/10/2014 1:44 PM PDT documented in this encounter Progress Notes Billy Araujo MD - 12/10/2014 1:03 PM PDTFormatting of this note might be differe nt from the original. Pulmonary Follow Up HPI Diego Lucas is a 79 y.o. male patient of Parviz Brar here today for follow up o f COPD. At their last visit, we had continued him on Qvar and Atrovent. Since their last visit he f eels like he has been doing pretty well. He has not had any acute illnesses. He did undergo his ablation, which went well. His prostate cancer has gotten out of control, and so Dr. Haroldo smith has referred him back to an oncologist here. He is currently on a regimen of Qvar and Atrovent. He is not sure that the Qvar works, ej cially at the end of the inhaler, the last 14 doses or so. He takes the Atrovent 3-4 times a day, with a goal of 4. Currently he is using his rescue inhaler, Ventolin, 4 times a day. He returns today for routine follow up. Currently he is able to walk 14 blocks at his own pace on level ground. 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 Roberto Carlos michael did find out he has some difficulty going up stairs. He also struggles on an incline. He c an do 2 flights of stairs without stopping. He does cough some, and does produce mucous on occasion. This has not changed recently. He has not had hemoptysis. He has been evaluated for nocturnal oxygen and does use it. He is currently on 2 LPM at [facility]. He reports good compliance. Past Medical History Past Medical History Diagnosis Date Peptic ulcer disease with upper GI bleed Benign prostatic hypertrophy Osteoarthritis Heartburn Pulmonary nodules Shoulder fracture 02/2012 Foot fracture 02/2012 SVT (supraventricular tachycardia) 01/[address] Wilder for ablation Depression Prostate cancer (HCC) 2007 s/p radiation treatment and on hormonal treatment with Lupron; DR JULIAN IN [place] COPD (chronic obstructive pulmonary disease) ([facility]) DR BILLY ARAUJO Pneumonia 05/[address] [facility] Heart murmur DR MARIAA OLIVERA Cataracts, bilateral s/p removal Kidney stone 2004 Hypertension TIA (transient ischemic attack) SEVERAL. LAST TIME 2012.NO RESIDUAL; CT SCAN/ ANGIO IN PAST Migraines Supplemental oxygen dependent 02@2L AT NIGHT C. difficile enteritis 2012 Lumbar disc herniation Past Surgical History Past Surgical History Procedure Laterality Date Pancreas surgery 1972 Appendectomy Cyst removal from back Nasal hemorrhage control 05/2012 Cataract removal with implant 11/2011 Right Cataract removal 03/2013 Left Lumbar spine surgery 1987, 1989 Discectomy X2, Dr. Santo Angiogram EARLY 1979 FOR TIA HISTORY Ablation of dysrhythmic focus 03/19/2014 Laterality: N/A; Surgeon: Jennifer Wilder MD; Location: 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 Also expo sed to asbestos. His grandfather had tuberculosis, he is not sure if he has been tested. No pets at home. No other animal exposures. Grew up in [place]. Then lived in [place]. Then moved to [place]. In the service lived i [facility] and [place]. No recent travel. Allergies: Allergies Allergen Reactions Adhesive & Tape Paper tapes- BLISTERS Medications: Outpatient Encounter Prescriptions as of 12/10/2014 Medication Sig Dispense Refill acetaminophen (TYLENOL) 325 [...] tablet Take 81 mg by mouth Daily. beclomethasone (QVAR) 80 mcg/puff inhaler Inhale 2 puffs into the lungs 2 times daily. 1 Inhaler 11 cetirizine-psuedoephedrine (ZYRTEC-D) 5-120 MG per tablet Take 1 tablet by mouth Daily as needed. ALLERGIES cholecalciferol (VITAMIN D-3) 1,000 units capsule Take 1,000 Units by mouth nightly. Copper Gluconate (COPPER CAPS PO) Take 1 mg by mouth. [facility] LUTEIN PO Take by mouth. Fe Bisgly-Vit C-Vit B12-FA (GENTLE IRON) 28-60-0.008-0.4 MG CAPS Take 1 capsule by mout h Daily. ferrous sulfate (IRON) 28 MG TABS Take 28 mg by mouth Daily. folic acid (FOLVITE) 400 MCG tablet Take 400 mcg by mouth Daily. HYDROcodone-acetaminophen (NORCO) 10-325 mg per tablet Take 1 tablet by mouth every 6 h ours as needed. ipratropium (ATROVENT HFA) 17 mcg/puff inhaler Inhale 2 puffs into the lungs 4 times da leslie. 1 Inhaler 11 Leuprolide Acetate (LUPRON IJ) Inject as directed. omeprazole (PRILOSEC OTC) 20 mg tablet Take 20 mg by mouth Daily. oxygen Inhale 2 L into the lungs nightly. Polyethylene Glycol 3350 (MIRALAX PO) Take by mouth. Respiratory Therapy Supplies [facility] Please provide an O2 concentrator while Diego [...] facility-administered encounter medications on file as of 12/10/2014. Review of Systems: General: []Weight loss/gain (over 10 lbs) []Fever/chills/sweats []Night sweats EENT: []Hearing loss []Vision loss/change []Sinus congestion/nasal drainage []Nosebleeds [] Hoarseness Cardiac: []Chest pain []Palpitations/heart racing []Swelling of legs/ankles []Waking up at night s hort of breath []Difficulty sleeping flat Gastrointestinal: []Nausea/vomiting []Difficulty swallowing []Heartburn/acid reflux []Loss of appetite []Abd ominal pain Urologic: []Blood in urine []Frequent urination at night []Burning/painful urination []Difficulty wit h urination Objective BP 124/74 mmHg | Pulse 81 | Resp 16 | Ht 1.778 m (5' 10") | Wt 78.926 kg (174 lb) | BMI 24. 97 kg/m2 | SpO2 93% General Appearance: Alert, cooperative, no distress, appears [...] normal Data: Immunization History Administered Date(s) Administered INFLUENZA, HIGH DOSE SEASONAL (ADULT) 11/10/2014 INFLUENZA, TRIVALENT PRESERVATIVE FREE (PED/ADOL/ADULT) 12/11/2012, 11/18/2013 PNEUMOCOCCAL CONJUGATE 13-VALENT (PCV13) 03/13/2014 PNEUMOCOCCAL POLYSACCHARIDE 23-VALENT (PPSV23) 10/21/2010 ZOSTER, 1 DOSE (ADULT) 04/22/2013 Assessment ICD-10-CM ICD-9-CM 1. COPD (chronic obstructive pulmonary disease) J44.9 496 He has had some more symptoms, ma inly because he has been doing more activity. He is using his albuterol several times a day. I suggested that we try him on a LABA/ICS again now that he has had an ablation as he had s yncope on Advair before. I ordered Breo given his cardiac history. He was previously intolerant of LAAC, but we could try a newer generation of one of these a s well. 2. 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 G47.36 327.26 Plan 1.Change Qvar to Breo 1 inhalation daily. 2.Continue Atrovent 4 times daily. 3.Continue Ventolin as needed, with goal of decreased use on Breo. 4. Continue regular activity/exercise. 5. Continue oxygen at night at 2L. He was advised to call if new pulmonary symptoms were to develop. Return to clinic in 6 months, or sooner with concerns. CC: Parviz Brar Portions of this report were transcribed using voice recognition software. Every effort wa s made to ensure accuracy; however, inadvertent computerized business programmer errors may be pre sent. 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
--- OUTSIDE RECORDS SUMMARY | ~2019-02-24 | XMS | Encounter Summary ---
Demographics + + + | Address | [address] | | | [place] [address] | + + + | Home Phone | | + + + | Preferred Language | Unknown | + + + | Marital Status | | + + + | Hindu Affiliation | 1076 | + + + | Race | Unknown | + + + | Ethnic Group | Unknown | + + + Author + + + | Author | [facility] | | | and [place] | + + + | Organization | [facility] | | | and [place] [...] Team Providers + +------+ + | Care Pipe Coremaker Name | Role | Phone | + +------+ + | Parviz Brar DO | PCP | | + +------+ + Reason for Visit + + + | Reason | Comments | + + + | Lab Order | | + + + Encounter Details +--------+ + + + + | Date | Type | Department | Care Team | Description | +--------+ + + + + | 04/27/ | Telephone | [facility] | Marc Odell | Lab Order | | 2018 | | GASTROENTEROLOGY | MD [address] | | | | | [address] [place] | [address] [facility] | | | | | [address] [place], [place] | [place] [address] | | | | | [address] | [phone] | | | | | [phone] | | | +--------+ + + + [...] | | | | | | [place] [address] | | | | | | [phone] | | | | | | | | +--------+---------+ + + + + +------+--------+ + + | Name | Type | Priori | Associated Diagnoses | Order Schedule | | | | ty | | | + +------+--------+ + + | Creatinine | Lab | Routin | Gastrointestinal | 1 Occurrences | | | | e | hemorrhage, | starting 04/27/2017 | | | | | unspecified | until 04/27/2018 | | | | | gastrointestinal | | | | | | hemorrhage type | | + +------+--------+ + + documented as of this encounter Visit Diagnoses + + | Diagnosis | + + | Gastrointestinal hemorrhage, unspecified gastrointestinal hemorrhage type - Primary | + + documented in this encounter"
--- OUTSIDE RECORDS SUMMARY | ~2019-02-24 | XMS | Encounter Summary ---
Demographics + + + | Address | [address] | | | [place] [address] | + + + | Home Phone | | + + + | Preferred Language | Unknown | + + + | Marital Status | | + + + | Judaism Affiliation | 1076 | + + + | Race | Unknown | + + + | Ethnic Group | Unknown | + + + Author + + + | Author | [facility] | | | and [place] | + + + | Organization | [facility] | | | and [...] Team Providers + +------+ + | Care Student Support Services Director Name | Role | Phone | + +------+ + | Parviz Brar DO | PCP | | + +------+ + Encounter Details +--------+ + + + + | Date | Type | Department | Care Team | Description | +--------+ + + + + | 06/16/ | Hospital | [facility] | Conversion | Pain | | 2017 | Encounter | CONVERSION [address] | Transaction, | | | | | [address] | Provider Unknown | | | | | [place], [place] | [phone] | | | | | [address] | | | | | | [phone] | | | +--------+ + + + [...] | | | | | [place] [address] | | | | | | [phone] | | | | | | | | +--------+---------+ + + + documented as of this encounter Procedures + +--------+ + + + | Procedure Name | Priori | Date/Time | Associated Diagnosis | Comments | | | ty | | | | + +--------+ + + + | CT CHEST WO CONTRAST | Routin | 01/26/2013 | | Results for this | | | e | 4:13 AM | | procedure are in the | | | | PST | | results section. | + +--------+ + + + documented in this encounter Results CT Chest wo Contrast (01/26/2013 4:13 AM PST) + + | Specimen | + [...]
--- OUTSIDE RECORDS SUMMARY | ~2019-02-24 | XMS | Encounter Summary ---
Demographics + + + | Address | [address] | | | [place] [address] | + + + | Home Phone | | + + + | Preferred Language | Unknown | + + + | Marital Status | | + + + | Zoroastrianism Affiliation | PRE | + + + | Race | White | + + + | Ethnic Group | Not or | + + + Author + + + | Author | [facility] | + + + | Organization | [facility] | + + + | Address | Unknown | + + + | Phone | Unavailable | + + + Support + + +---------+ + | Name | Relationship | Address | Phone | + + +---------+ + | Andrez Lucas | ECON | Unknown | Unavailable | + + +---------+ + Care Team Providers + +------+ + | Care Revenue Stamper Name | Role | Phone | + +------+ + | ZoniaParviz | PCP | | + +------+ + Reason for Visit AUTH/CERT +--------+--------+ + + + + | [...] | +--------+ + + + + | 06/11/ | Anesthesia | 6A Intra Op [id number] | Risa Burrows MD | | | 2012 | Event | [facility] | [address] | | | | | [facility] | [facility], | | | | | [facility] | [place] [address] | | | | | Desk Located on the | [phone] | | | | | 9th floor | | | | | | [place], [place] | | | | | | [address] | | | +--------+ + + + + Anesthesia Record + + + + + | Procedure Name | Responsible | Anesthesia Start | Anesthesia Stop Time | | | Anesthesiologist | Time | | + + + + + | Endoscopic | Risa Burrows MD | 06/11/121650 | 06/11/128 | | intranasal control | | | | | of epistaxis; | | | | | ethmoid artery | | | | | ligation; maxillary | | | | | sinus lavage (N/A ) | | | | + + + + + +----+---+ + + | Da | T | Event | Comment | | te | i | | | | | m | | | | | e | | | +----+---+ + + | 04 | 1 | Eq Check | Anesthesia machine checked Equipment verified | | /2 | 6 | | | | 0/ | 0 | | | | 20 | 8 | | | | 13 | | | | +----+---+ + + | | 1 | | | | | 6 | | | | | 4 | | | | | 5 | | | +----+---+ + + | | 1 | Pt. Check | Prior to anesthesia start, pt. Identified, examined, chart | | | 6 | | reviewed, PARQ held, anesthetic plan made or approved by | | | 4 | | attending anesthesiologist. NPO status confirmed as appropriate | | | 5 | | for procedure Preoperative evaluation: unchanged | +----+---+ + + | | 1 | An Start | | | | 6 | | | | | 5 | | | | | 1 | | | +----+---+ + + | | 1 | An Start | | | | 6 | Data | | | | 5 | | | | | 1 | | | +----+---+ + + | | 1 | Vitals | Monitors applied Vital signs checked Patient ready for anesthesia | | | 6 | Checked | | | | 5 | | | | | 7 | | | +----+---+ + + | | 1 | Std. Airway | | | | 7 | Mgt. | | | | 0 | | | | | 2 | | | +----+---+ + + | | 1 | Ready | | | | 7 | | | | | 0 | | | | | 5 | | | +----+---+ + + | | 1 | Local | | | | 7 | Anesthetic | | | | 1 | by Surgeon | | | | 2 | | | +----+---+ + + | | 1 | Abx | | | | 7 | Administere | | | | 2 | d | | | | 0 | | | +----+---+ + + | | 1 | Timeout | | | | 7 | | | | | 3 | | | | | 3 | | | +----+---+ + + | | 1 | Incision | | | | 7 | | | | | 3 | | | | | 5 | | | +----+---+ + + | | 1 | Quick Note | surgical technology instructor reports having used 200mL irrigation. Suction | | | 9 | | canister with about 250mL currently. | | | 0 | | | | | 1 | | | +----+---+ + + | | 1 | Surgery end | | | | 9 | | | | | 1 | | | | | 5 | | | +----+---+ + + | | 1 | An Extubate | Neuromuscular function Intact. Pharynx suctioned. Patient obeys | | | 9 | | commands. Adequate pulmonary mechanics. | | | 2 | | | | | 7 | | | +----+---+ + + | | 1 | an stop | | | | 9 | data | | | | 2 | | | | | 7 | | | +----+---+ + + | | 1 | Anesthesia | | | | 9 | End | | | | 3 | | | | | 8 | | | +----+---+ + + +------+ | Meds | +------+ + + + | Name | Total | + + + | fentaNYL | 300 mcg | + + + | propofol | 150 mg | + + + | lidocaine 2% | 70 mg | + + + | ceFAZolin | 1,000 mg | + + + | dexamethasone | 4 mg | + + + | succinylcholine | 100 mg | + + + | HYDROmorphone | 0.4 mg | + + + | PHENYLephrine | 100 mcg | + + + | ondansetron | 4 mg | + + + | LR | 600 mL | + + + | NS | 700 mL | + + + + + | Name | + + | Insp Sevo | + + | Et Sevo | + + | EtN2O % | + + | Insp N2O % | + + | O2 Flow Rate (Total Liters) | + + | N2O Flow Rate (l/min) | + + | Air Flow rate (L/min) | + + + + | No blood administrations on file. | + + +--------+ + + + | Type | Details | Placement | Removal | +--------+ + + + | RETIRE | 06/09/12; 06/11/12; 1945; ; | 06/09/12 0000 by | 06/11/121945 by | | D - | Left; Hand; Positive; Other | Anders Escamilla RN | Macario Montalvo, | | Periph | (Comment) | | RN | | eral | | | | | Line | | | | +--------+ + + + | RETIRE | 06/14/12; 2149; Left; Hand | 06/10/12 013 by | 06/14/122149 by | | D - | | | Discontinued After | | Periph | | | Discharge | | eral | | | | | Line | | | | +--------+ + + + | RETIRE | 06/11/12; No; Right:; orbital | 06/11/12 0000 by | 12/10/16 1622 by | | D - | region; 12/10/16 (Automatic | Onelia Cade, | Discontinued After | | Incisi | cleanup per RA 3006--contact | RN | Discharge | | on | admin for questions.); 1622 | | | | | (Automatic cleanup per RA | | | | | 3006--contact admin for | | | | | questions.) | | | +--------+ + + + | RETIRE | 06/11/12; 0002; 06/13/12 (tip | 06/11/12 0002 by | 06/13/12907 by | | D - | intact); 907; 18; Left; Wrist; | Muriel Farah RN | Janett Colin | | Periph | Site Problems | | DIVYA Kim | | eral | | | | | Line | | | | +--------+ + + + | RETIRE | 06/11/12; 0900; Right:; kina; | 06/11/12 0900 by | 12/10/16 1622 by | | D - | 12/10/16 (Automatic cleanup per | Susan Ozuna RN | Discontinued After | | Wound | RA 3006--contact admin for | | Discharge | | | questions.); 1622 (Automatic | | | | | cleanup per RA 3006--contact | | | | | admin for questions.) | | | +--------+ + + + | RETIRE | 06/11/12; 0900; Right:; nostril; | 06/11/12 0900 by | 12/10/16 1622 by | | D - | 12/10/16 (Automatic cleanup per | Susan Ozuna RN | Discontinued After | | Wound | RA 3006--contact admin for | | Discharge | | | questions.); 1622 (Automatic | | | | | cleanup per RA 3006--contact | | | | | admin for questions.) | | | +--------+ + + + | RETIRE | 06/11/12; 1042; 06/14/12; 1400; | 06/11/12 1042 by | 06/14/12 1400 by | | D - | No; 18; Right; Hand; Lidocaine; | Cheyenne Wray RN | Cira | | Periph | No; Positive | | DIVYA Avitia | | eral | | | | | Line | | | | +--------+ + + + | RETIRE | 06/11/12; 1704; 06/11/12; 1924; | 06/11/121704 by | 06/11/121924 by | | D - | No; Alicia; 16FR | Onelia Cade, | Onelia Cade, | | Urinar | | RN | RN | | y Cath | | | | | | | | | | Placem | | | | | ent | | | | | (Dee | | | | | & Cath | | | | | Care | | | | | Daily | | | | | and Q | | | | | BM) | | | | +--------+ + + + | RETIRE | 06/11/12; 1823; 06/12/12; 729 | 06/11/121823 by | 06/12/12729 by | | D - | (by ); 1/4 inch ; Butch; | Dalia Burton RN | Susan Ozuna RN | | Drains | Right; Nose | | | | | | | | | (wound | | | | | s/surg | | | | | ical) | | | | +--------+ + + + | RETIRE | 06/11/12; 1932; No; Bilateral:; | 06/11/121932 by | 12/10/161621 by | | D - | nose; 12/10/16 (Automatic cleanup | Onelia Cade, | Discontinued After | | Incisi | per RA 3006--contact admin for | RN | Discharge | | on | questions.); 1621 (Automatic | | | | | cleanup per RA 3006--contact | | | | | admin for questions.) | | | +--------+ + + + documented in this encounter Social History + +-------+ +--------+------+ | Tobacco [...] this encounter Plan of Treatment Not on filedocumented as of this encounter Visit Diagnoses Not on filedocumented in this encounter Administered Medications + +--------+ + +------+------+ | Medication Order | MAR | Action | Dose | Rate | Site | | | Action | Date | | | | + +--------+ + +------+------+ | ceFAZolin (aka ANCEF) injection | Given | 06/12/19 | 1,000 mg | | | | intravenous, INTRAPROCEDURE | | 13 5:20 | | | | | PRN, Starting 06/11/12 at | | PM PDT | | | | | 1720, Until 06/11/12 at 1927 | | | | | | + +--------+ + +------+------+ +---+---+ | | | +---+---+ + +-------+ +------+---+---+ | dexamethasone (aka DECADRON) | Given | 06/12/19 | 4 mg | | | | injection intravenous, | | 13 5:16 | | | | | INTRAPROCEDURE PRN, Starting Sat | | PM PDT | | | | | 06/11/12 at 1716, Until Sat | | | | | | | 06/11/12 at 1927 | | | | | | + +-------+ +------+---+---+ +---+---+ | | | +---+---+ + +-------+ +--------+---+---+ | fentaNYL citrate (PF) (aka | Given | 06/12/19 | 50 mcg | | | | SUBLIMAZE) injection | | 13 6:59 | | | | | INTRAPROCEDURE PRN, Starting Sat | | PM PDT | | | | | 06/11/12 at 1657, Until Sat | | | | | | | 06/11/12 at 1927, sedation | | | | | | + +-------+ +--------+---+---+ +-------+ +--------+---+---+ | Given | 06/12/19 | 50 mcg | | | | | 13 6:26 | | | | | | PM PDT | | | | +-------+ +--------+---+---+ | Given | 06/12/19 | 50 mcg | | | | | 13 5:35 | | | | | | PM PDT | | | | +-------+ +--------+---+---+ +---+---+ | | | +---+---+ + +-------+ +--------+---+---+ | HYDROmorphone (aka DILAUDID) | Given | 06/12/19 | 0.2 mg | | | | injection INTRAPROCEDURE PRN, | | 13 6:34 | | | | | Starting 06/11/12 at 1750, | | PM PDT | | | | | Until 06/11/12 at 1927, | | | | | | | sedation | | | | | | + +-------+ +--------+---+---+ +-------+ +--------+---+---+ | Given | 06/12/19 | 0.2 mg | | | | | 13 5:50 | | | | | | PM PDT | | | | +-------+ +--------+---+---+ +---+---+ | | | +---+---+ + + + +----+---+---+ | lactated ringers IV | given by | 06/12/19 | mL | | | | INTRAPROCEDURE CONTINUOUS PRN, | | 13 7:37 | | | | | Starting 06/11/12 at 1651, | anesthes | PM PDT | | | | | Until 4/20/13 at 1927 | iology | | | | | + + + +----+---+---+ + + +----+---+---+ | given by anesthesiology | 06/12/19 | mL | | | | | 13 6:27 | | | | | | PM PDT | | | | + + +----+---+---+ | given by anesthesiology | 06/12/19 | mL | | | | | 13 5:46 | | | | | | PM PDT | | | | + + +----+---+---+ +---+---+ | | | +---+---+ + +-------+ +-------+---+---+ | lidocaine (aka XYLOCAINE MPF) | Given | 06/12/19 | 70 mg | | | | 20 mg/mL (2 %) injection | | 13 4:59 | | | | | INTRAPROCEDURE PRN, Starting Sat | | PM PDT | | | | | 06/11/12 at 1659, Until Sat | | | | | | | 06/11/12 at 1927 | | | | | | + +-------+ +-------+---+---+ +---+---+ | | | +---+---+ + + + +----+---+---+ | NaCl 0.9 % IV INTRAPROCEDURE | given by | 06/12/19 | mL | | | | CONTINUOUS PRN, Starting Sat | | 13 7:04 | | | | | 06/11/12 at 1715, Until Sat | anesthes | PM PDT | | | | | 06/11/12 at 1927 | iology | | | | | + + + +----+---+---+ + + +----+---+---+ | given by anesthesiology | 06/12/19 | mL | | | | | 13 6:27 | | | | | | PM PDT | | | | + + +----+---+---+ | given by anesthesiology | 06/12/19 | mL | | | | | 13 5:46 | | | | | | PM PDT | | | | + + +----+---+---+ +---+---+ | | | +---+---+ + +-------+ +------+---+---+ | ondansetron (aka ZOFRAN) | Given | 06/12/19 | 4 mg | | | | injection INTRAPROCEDURE PRN, | | 13 7:11 | | | | | Starting 06/11/12 at 1911, | | PM PDT | | | | | Until 06/11/12 at 1926 | | | | | | + +-------+ +------+---+---+ +---+---+ | | | +---+---+ + +-------+ +---------+---+---+ | phenylePHrine 100 mcg/mL | Given | 06/12/19 | 100 mcg | | | | injection (OR syringe) | | 13 6:19 | | | | | intravenous, INTRAPROCEDURE PRN, | | PM PDT | | | | | Starting 06/11/12 at 1819, | | | | | | | Until 06/11/12 at 1926 | | | | | | + +-------+ +---------+---+---+ +---+---+ | | | +---+---+ + +-------+ +--------+---+---+ | propofol INTRAPROCEDURE PRN, | Given | 06/12/19 | 150 mg | | | | Starting 06/11/12 at 1700, | | 13 5:00 | | | | | Until 06/11/12 at 1927 | | PM PDT | | | | + +-------+ +--------+---+---+ +---+---+ | | | +---+---+ + +-------+ +--------+---+---+ | SUCCINYLCHOLINE CHLORIDE 20 | Given | 06/12/19 | 100 mg | | | | MG/ML INJ (PROSED/RSI) | | 13 5:01 | | | | | INTRAPROCEDURE PRN, Starting Sat | | PM PDT | | | | | 06/11/12 at 1700, Until Sat | | | | | | | 06/11/12 at 1927, Neuromuscular | | | | | | | block | | | | | | + +-------+ +--------+---+---+ +---+---+ | | | +---+---+ documented in this encounter"
--- OUTSIDE RECORDS SUMMARY | ~2019-02-24 | XMS | Encounter Summary ---
Demographics + + + | Address | [address] | | | [place] [address] | + + + | Home Phone | | + + + | Preferred Language | Unknown | + + + | Marital Status | | + + + | Methodist Affiliation | 1076 | + + + | Race | Unknown | + + + | Ethnic Group | Unknown | + + + Author + + + | Author | [facility] | | | and [place] | + + + | Organization | [facility] | | | and [place] [...] Team Providers + +------+ + | Care Automotive Brake Technician Name | Role | Phone | + +------+ + PCP | Unavailable | + +------+ + Encounter Details +--------+ + + + + | Date | Type | Department | Care Team | Description | +--------+ + + + + | 08/03/ | Hospital | [facility] | | | | 2008 - | Encounter | [facility] | | | | | | CENTER [address] | | | | 08/21/ | | [place] | | | | 2008 | | [address] | | | | | | [phone] | | | +--------+ + + + [...] | | | | | | [place] [address] | | | | | | [phone] | | | | | | | | +--------+---------+ + + + documented as of this encounter Visit Diagnoses Not on filedocumented in this encounter"
--- OUTSIDE RECORDS SUMMARY | ~2019-02-24 | XMS | Encounter Summary ---
Demographics + + + | Address | [address] | | | [place] [address] | + + + | Home Phone | | + + + | Preferred Language | Unknown | + + + | Marital Status | | + + + | Bahai Affiliation | 1076 | + + + | Race | Unknown | + + + | Ethnic Group | Unknown | + + + Author + + + | Author | [facility] | | | and [place] | + + + | Organization | [facility] | | | and [place] | + + + | Address | Unknown | + + + | Phone | Unavailable | + + + Support + + + + + | Name | Relationship | Address | Phone | + + + + + | Andrez Lucas | ECON | NA | | | | | [place] | | + + + + + | Candis Haney ECON | NA | | | | | [place] | | + + + + + Care Team Providers + +------+ + | Care Hospitality Intern Name | Role | Phone | + +------+ + | Parviz Brar DO | PCP | | + +------+ + Encounter Details +--------+ + + + + | Date | Type | Department | Care Team | Description | +--------+ + + + + | 03/06/ | Hospital | [facility] | [place], | Pneumonia of left | | 2016 | Encounter | MED CTR XRAY [address] | Becca Segura MD | lower lobe due to | | | | [place] | | infectious organism | | | | [place] [address] | | | | | | [phone] | | | +--------+ + + + [...] + + +---------+ + + | albuterol 90 | Inhale 2 puffs into | | 0 | | | | mcg/puff inhaler | the lungs every 6 | | | | 6 | | | hours as needed for | | | | | | | Wheezing. | | | | | + + + +---------+ + + | Ascorbic Acid | Take 250 mg by mouth | | 0 | | | | (VITAMIN C) 250 MG | Daily. | | | | 6 | | tablet | | | | | | + + + +---------+ + + | ATROVENT HFA 17 | INHALE TWO PUFFS BY | 1 | 5 | 01/22/20 | | | MCG/ACT inhaler | MOUTH INTO THE LUNGS | Inhaler | | 15 | 6 | | | FOUR TIMES DAILY | | | | | + + + +---------+ + + | cholecalciferol | Take 1,000 Units by | | 0 | | | | (VITAMIN D-3) 1,000 | mouth nightly. | | | | 7 | | units capsule | | | | | | + + + +---------+ + + | Copper Gluconate | Take 1 mg by mouth. | | 0 | | | | (COPPER CAPS PO) | | | | | 6 | + + + +---------+ + + | [facility] LUTEIN PO | Take by mouth. | | 0 | | | | | | | | | 8 | + + + +---------+ + + | Fe Bisgly-Vit | Take 1 capsule by | | 0 | | | | C-Vit B12-FA (GENTLE | mouth Daily. | | | | 6 | | IRON) | | | | | | | 28-60-0.008-0.4 MG | | | | | | | CAPS | | | | | | + [...] + + + +---------+ + + | Leuprolide Acetate | Inject as directed. | | 0 | | | | (JOSEFINA MAYER) | | | | | 6 | + + + +---------+ + + [...] + +---------+ + + | tamsulosin | Take 0.8 mg by mouth | | 0 | | | | (FLOMAX) 0.4 mg CAPS | nightly. | | | | 6 | | | OCCASIONALLY TAKES 2 | | | | | | | TABS NEEDED | | | | | + [...] | | | | | | [place] [address] | | | | | | [phone] | | | | | | | | +--------+---------+ + + + documented as of this encounter Procedures + +--------+ + + + | Procedure Name | Priori | Date/Time | Associated Diagnosis | Comments | | | ty | | | | + +--------+ + + + | XR CHEST PA AND | Routin | 03/06/2015 | Pneumonia of left | Results for this | | LATERAL | e | 10:29 AM | lower lobe due to | procedure are in the | | | | PST | infectious organism | results section. | + +--------+ + + + documented in this encounter Results XR Chest PA and Lateral (03/06/2015 10:29 AM PST) + + | Specimen | + + | | + + + + + | Narrative | Performed At | + + + | XR CHEST PA AND LATERAL 03/06/2015 10:29 AM HISTORY: f/u | [facility] | | pneumonia. COMPARISON: Multiple priors. Findings: Heart size | [facility] | | is within normal limits. There is atherosclerosis and tortuosity of | [facility] | | the aorta. Mediastinum is unremarkable. Hyperinflation of the lungs is | - IMAGING | | seen. There is mild scarring in the bilateral lower lobes. Mild | | | patchy airspace disease is in the left lower lobe that has improved | | | compared to 02/07/2015. No pleural effusion or pneumothorax is seen. | | | Slight right curvature of the thoracic spine is present. There is | | | mild spondylosis. IMPRESSION - Mild patchy airspace disease in | | | left lower lobe with improvement. Hyperinflation of lungs. | | | Dictated and Signed by: Yosef Samuel MD Electronically signed: | | | 03/06/2015 11:59 AM | | + + + + + | Procedure Note | + + | [place], Rad Results In - 03/06/2015 12:02 PM PST XR CHEST PA AND LATERAL 03/06/2015 10:29 | | AMHISTORY: f/u pneumonia.COMPARISON: Multiple priors.Findings:Heart size is within | | normal limits. There is atherosclerosis and tortuosity ofthe aorta. Mediastinum is | | unremarkable. Hyperinflation of the lungs is seen.There is mild scarring in the | | bilateral lower lobes. Mild patchy airspacedisease is in the left lower lobe that has | | improved compared to 02/07/2015. Nopleural effusion or pneumothorax is seen. Slight | | right curvature of the thoracicspine is present. There is mild spondylosis.IMPRESSION | | -Mild patchy airspace disease in left lower lobe with improvement.Hyperinflation of | | lungs.Dictated and Signed by: Yosef Samuel MD Electronically signed: 03/06/2015 11:59 AM | |There is mild scarring in the bilateral lower lobes. Mild patchy airspace | |disease is in the left lower lobe that has improved compared to 02/07/2015. No | |pleural effusion or pneumothorax is seen. Slight right curvature of the thoracic | |spine is present. There is mild spondylosis. | | | |IMPRESSION - | |Mild patchy airspace disease in left lower lobe with improvement. | | | |Hyperinflation of lungs. | | | |Dictated and Signed by: Yosef Samuel MD | | Electronically signed: 03/06/2015 11:59 AM | + + + + + + + | Performing | Address | City/State/Zipcode | Phone Number | | Organization | | | | + + + + + | [facility] | [address] | [place] | [phone] | | [facility] | | [address] | | | - IMAGING | | | | + + + + + documented in this encounter Visit Diagnoses + + | Diagnosis | + + | Pneumonia of left lower lobe due to infectious organism (HCC) | + + documented in this encounter"
--- OUTSIDE RECORDS SUMMARY | ~2019-02-24 | XMS | Encounter Summary ---
Demographics + + + | Address | [address] | | | [place] [address] | + + + | Home Phone | | + + + | Preferred Language | Unknown | + + + | Marital Status | | + + + | Latter-Day Affiliation | 1076 | + + + | Race | Unknown | + + + | Ethnic Group | Unknown | + + + Author + + + | Author | [facility] | | | and [place] | + + + | Organization | [facility] | | | and [place] | [...] Team Providers + +------+ + | Care Cytology Teacher Name | Role | Phone | + +------+ + PCP | Unavailable | + +------+ + Encounter Details +--------+ + + + + | Date | Type | Department | Care Team | Description | +--------+ + + + + | 08/30/ | Hospital | [facility] | [place], | | | 2010 | Encounter | MED CTR GENERIC OP | Becca Segura MD | | | | | CONV DEPT [address] | | | | | | [place], | | | | | | [place] [address] | | | | | | [phone] | | | +--------+ + + + [...] | | | | | [place] [address] | | | | | | [phone] | | | | | | | | +--------+---------+ + + + documented as of this encounter Visit Diagnoses Not on filedocumented in this encounter"
--- OUTSIDE RECORDS SUMMARY | ~2019-02-24 | XMS | Encounter Summary ---
Demographics + + + | Address | [address] | | | [place] [address] | + + + | Home Phone | | + + + | Preferred Language | Unknown | + + + | Marital Status | | + + + | Restoration Affiliation | 1076 | + + + | Race | Unknown | + + + | Ethnic Group | Unknown | + + + Author + + + | Author | [facility] | | | and [place] | + + + | Organization | [facility] | | | and [...] Team Providers + +------+ + | Care Linux Vmware Administrator Name | Role | Phone | + [...] | | Abnormal | [place], | [address] | | | | | chest CT | Becca Segura, | [place], | | | | | Procedures | [address] | [place] [address] | | | | | CT Chest wo | [address] | Phone: | | | | | Contrast | [place], | [phone] | | | | | | [place] [address] | Fax: | | | | | | | [phone] | +--------+--------+ + + + + Encounter Details +--------+ + + + + | Date | Type | Department | Care Team | Description | +--------+ + + + + | 10/27/ | Hospital | [facility] | [place], | Abnormal chest CT | | 2012 | Encounter | MED CTR XRAY [address] | Becca Segura MD | | | | | [address] [place] | | | | | | [place] [address] | | | | | | [phone] | | | +--------+ + + + [...] one tablet by | | 0 | 10/10/20 | | | (NORVASC) 5 mg | [...] MG | Daily. | | | | 5 | | tablet | | | | | | + + + +---------+ + + | aspirin (ASPIRIN | Take 81 mg by mouth | | 0 | 11/05/19 | | | LOW DOSE) 81 MG | Daily. | | | 12 | 6 | | tablet | | | | | | + + + +---------+ + + | | Take by mouth Twice | | 0 | | | | CETIRIZINE-PSEUDOEPH | daily as needed. | | | | 4 | | EDRINE ER PO | | | | | | + + + +---------+ + + | ferrous sulfate | Take 325 mg by mouth | | 0 | | | | 325 mg tablet | daily (with | | | | 5 | | | breakfast). | | | | | + + + +---------+ + + | fluticasone | Inhale 1 puff into | | 0 | | | | (FLOVENT HFA) 220 | the lungs 2 times | | | | 3 | | mcg/puff inhaler | daily. | | | | | + + + +---------+ + + | | 1 puff inhaled twice | | 0 | 07/31/19 | | | FLUTICASONE-SALMETER | daily | | | 12 | 3 | | OL IN | | | | | | + + + +---------+ + + | | as needed for pain | | 0 | 12/02/19 | | | Hydrocodone-Acetamin | | | | 12 | 5 | | ophen 10-300 MG TABS | | | | | | + + + +---------+ + + | IBUPROFEN | Take by mouth as | | 0 | | | | | needed. | | | | 3 | + + + +---------+ + + | ipratropium | Inhale 2 puffs into | | 0 | | | | (ATROVENT HFA) 17 | the lungs 4 times | | | | 3 | | mcg/puff inhaler | daily. | | | | | + + + +---------+ + + | levofloxacin | Take 1 tablet by | 7 | 0 | 10/29/19 | | | (LEVAQUIN) 500 mg | mouth Daily for 7 | tablet | | 13 | 3 | | tablet | days. | | | | | + [...] +---------+ + + | venlafaxine | Take 150 mg by mouth | | 0 | | | | (EFFEXOR XR) 150 mg | Daily. | | | | 3 | | 24 hr capsule | | | | | | + + + +---------+ + + | VENTOLIN HFA 108 | INHALE 2 PUFFS EVERY | 18 g | 11 | 04/27/19 | | | (90 BASE) MCG/ACT | 4 HOURS NEEDED | | | 13 | 4 | | inhaler | FOR SHORTNESS OF | | | | | | | BREATH | | | | | + + [...] | | | | | [place] [address] | | | | | | [phone] | | | | | | | | +--------+---------+ + + + documented as of this encounter Procedures + +--------+ + + + | Procedure Name | Priori | Date/Time | Associated Diagnosis | Comments | | | ty | | | | + +--------+ + + + | CT CHEST WO CONTRAST | Routin | 10/27/2012 | Abnormal chest CT | Results for this | | | e | 3:21 PM | | procedure are in the | | | | PDT | | results section. | + +--------+ + + + documented in this encounter Results CT Chest wo Contrast (10/27/2012 3:21 PM PDT) + + | Specimen | + + | | + + + + + | Narrative | Performed At | + + + | [facility] | [facility] | | Department [address] [place] [address] | [facility] | | [ rep ct street[address]] [ rep ct [facility] | | st zip] Signed | - IMAGING | | | | | Patient Name: DIEGO LUCAS Physician: | | | MAGDA. : 1935 Age: 76 Sex: M Unit #: [id number] | | | Exam Date: 10/27/12 Location: [facility] | | | Report #: [id number] Page: | | | %(RAD)RES..mtdd.print.filter("pg") of %(RAD) | | | RES..mtdd.print.filter("tpg") | | | | | | Accession Number: [id number] | | | [id number] CHEST CT CLINICAL HISTORY: FOLLOWUP | | [...] | | | Transcribed Date/Time: 10/27/2012 16:01 Surveillance Systems Engineer: | | | AndrewSSP <<Signature on File>> | | | Yosef | | | MD Jimmie10/27/122003 <Electronically signed by Yosef Samuel MD> | | | Yosef Samuel MD 10/27/12 1521 Surveillance Systems Engineer: [employer] | | | [email or web address]/05/13 1601 Becca Castro MD | | | | | + + + + + + + + | Performing | Address | City/State/Zipcode | Phone Number | | Organization | | | | + + + + + | [facility] | [address] | [place] | [phone] | | [facility] | | [address] | | | - IMAGING | | | | + + + + + documented in this encounter Visit Diagnoses + + | Diagnosis | + + | Abnormal chest CT Nonspecific (abnormal) findings on radiological and other | | examination of other intrathoracic organs | + + documented in this encounter
--- OUTSIDE RECORDS SUMMARY | ~2019-02-24 | XMS | Encounter Summary ---
Demographics + + + | Address | [address] | | | [place] [address] | + + + | Home Phone | | + + + | Preferred Language | Unknown | + + + | Marital Status | | + + + | Confucianism Affiliation | PRE | + + + | Race | White | + + + | Ethnic Group | Not or | + + + Author + + + | Author | [facility] | + + + | Organization | [facility] | + + + | Address | Unknown | + + + | Phone | Unavailable | + + + Support + + +---------+ + | Name | Relationship | Address | Phone | + + +---------+ + | Andrez Lucas | ECON | Unknown | Unavailable | + + +---------+ + Care Team Providers + +------+ + | Care Holter Technician Name | Role | Phone | [...] | | 2012 | Event | [facility] | [address] | | | | | [facility] | [facility], | | | | | [facility] | [place] [address] | | | | | Desk Located on the | [phone] | | | | | 9th floor | | | | | | [place], [place] | | | | | | [address] | | | +--------+ + + + [...] | | 1 | Quick Note | glass technologist reports having used 200mL irrigation. Suction | [...]
--- OUTSIDE RECORDS SUMMARY | ~2019-02-24 | XMS | Encounter Summary ---
Demographics + + + | Address | [address] | | | [place] [address] | + + + | Home Phone | | + + + | Preferred Language | Unknown | + + + | Marital Status | | + + + | Scientology Affiliation | 1076 | + + + | Race | Unknown | + + + | Ethnic Group | Unknown | + + + Author + + + | Author | [facility] | | | and [place] | + + + | Organization | [facility] | | | and [place] [...] Team Providers + +------+ + | Care Box Office Attendant Name | Role | Phone | + [...] Description | +--------+--------+ + + + | 09/26/ | Refill | [facility] | Jorje Rutledge | Medication Refill | | 2016 | | [address] | [address] | | | | | [place], [place] | [address] [facility] | | | | | [address] | [place] [address] | | | | | [phone] | | | | | | | | +--------+--------+ + + + Social History + + [...] | | | | | [place] [address] | | | | | | [phone] | | | | | | | | +--------+---------+ + + + documented as of this encounter Visit Diagnoses Not on filedocumented in this encounter"
--- OUTSIDE RECORDS SUMMARY | ~2019-02-24 | XMS | Encounter Summary ---
Demographics + + + | Address | [address] | | | [place] [address] | + + + | Home Phone | | + + + | Preferred Language | Unknown | + + + | Marital Status | | + + + | Jainism Affiliation | 1076 | + + + | Race | Unknown | + + + | Ethnic Group | Unknown | + + + Author + + + | Author | [facility] | | | and [place] | + + + | Organization | [facility] | | | and [place] [...] Team Providers + +------+ + | Care Public Relations Specialist Name | Role | Phone | [...] + + | 04/27/ | Telephone | [facility] | Marc Odell | Lab Order | | 2018 | | GASTROENTEROLOGY | MD [address] | | | | | [address] [place] | [address] [facility] | | | | | [address] [place], [place] | [place] [address] | | | | | [address] | [phone] | | | | | [phone] | | | +--------+ + + + [...] | | | | | | [place] [address] | | | | | | [phone] | | | | | | | [...]
--- OUTSIDE RECORDS SUMMARY | ~2019-02-24 | XMS | Encounter Summary ---
Demographics + + + | Address | [address] | | | [place] [address] | + + + | Home Phone | | + + + | Preferred Language | Unknown | + + + | Marital Status | | + + + | Denominational Affiliation | 1076 | + + + | Race | Unknown | + + + | Ethnic Group | Unknown | + + + Author + + + | Author | [facility] | | | and [place] | + + + | Organization | [facility] | | | and [place] [...] Team Providers + +------+ + | Care Double End Chucking Machine Operator Name | Role | Phone [...] Description | +--------+--------+ + + + | 06/23/ | Refill | [facility] | Jorje Rutledge | Medication Refill | | 2016 | | [address] | [address] | | | | | [place], [place] | [address] [facility] | | | | | [address] | [place] [address] | | | | | [phone] | [phone] | | | | | | | [...] | | | | | [place] [address] | | | | | | [phone] | | | | | | | | +--------+---------+ + + + documented as of this encounter Visit Diagnoses Not on filedocumented in this encounter"
--- OUTSIDE RECORDS SUMMARY | ~2019-02-24 | XMS | Encounter Summary ---
Demographics + + + | Address | [address] | | | [place] [address] | + + + | Home Phone | | + + + | Preferred Language | Unknown | + + + | Marital Status | | + + + | Congregation Affiliation | 1076 | + + + | Race | Unknown | + + + | Ethnic Group | Unknown | + + + Author + + + | Author | [facility] | | | and [place] | + + + | Organization | [facility] | | | and [place] [...] Team Providers + +------+ + | Care Furniture Detailer Name | Role | Phone | + [...] | | | | | | [place] [address] | | | | | | [phone] | | | +--------+--------+ + + + [...] | | | | | [place] [address] | | | | | | [phone] | | | | | | | | +--------+---------+ + + + documented as of this encounter Visit Diagnoses Not on filedocumented in this encounter"
--- OUTSIDE RECORDS SUMMARY | ~2019-02-24 | XMS | Encounter Summary ---
Demographics + + + | Address | [address] | | | [place] [address] | + + + | Home Phone | | + + + | Preferred Language | Unknown | + + + | Marital Status | | + + + | Hinduism Affiliation | 1076 | + + + | Race | Unknown | + + + | Ethnic Group | Unknown | + + + Author + + + | Author | [facility] | | | and [place] | + + + | Organization | [facility] | | | and [place] | [...] Team Providers + +------+ + | Care Sky Diver Name | Role | Phone | + [...] + + | 08/31/ | Office | [facility] | Jorje Rutledge | Prostate cancer | | 2018 | Visit | [address] | [address] | ([facility]) (Primary Dx); | | | | [place] | [address] [facility] | Preventative health | | | | [address] | [place] [address] | care | | | | [phone] | [phone] | | | | | | | [...] history ofT2c or T3 adenocarcinoma the prostate, [place] 4+3 = 7, PSA 13.9,which was diagnosed in June 2007. He received radiation therapy by Dr. Garza, with post radiation adjuvant Lupron administrat ion for approximately 1-1/2 years. His PSA soy was 0.01. He did have a post radiation PSA recurrence with a slow doubling time, and in July 2013, ar s PSA was 5.38. He was started [...] (2004); Lumbar disc herniation; Migraines; Mood disorder ([facility]) of unknown (axis III) etiology; Nocturnal hypoxia; Osteoarthritis; Peptic ulcer disease; Pne umonia (05/2012); Prostate cancer ([facility]) (2007); Pulmonary nodules; Seborrheic dermatitis of s calp; Shoulder fracture (02/2012); Supplemental oxygen dependent; SVT (supraventricular tachy cardia) ([facility]) (01/2014); TIA (transient ischemic attack); and [...] or use drugs. Allergies Allergen Reactions Ipratropium [place] Hfa Other (See Comments) Reaction: Cough Penicillins [...] by mouth Daily. Respiratory Therapy Supplies [facility] Please provide an O2 [...] His labs will be perfor med at [facility]. Diego is instructed to resume his usual and customary care with his primary care provider. I asked Diego to notify me if there were any difficulties voiding, or UTI symptoms, or flank pain, or for any questions or concerns whatsoever. This document was generated in part using [employer]emock voice recognition software. Although ever y effort is made to edit the content, senior net application developer errors may occur. Occasional wrong word [...] | | | | | | [place] [address] | | | | | | [phone] | | | | | | | [...] 1.001 - 1.030 | | | | [place], | | | | | | UA, [...]
--- OUTSIDE RECORDS SUMMARY | ~2019-02-24 | XMS | Encounter Summary ---
Demographics + + + | Address | [address] | | | [place] [address] | + + + | Home Phone | | + + + | Preferred Language | Unknown | + + + | Marital Status | | + + + | Temple Affiliation | 1076 | + + + | Race | Unknown | + + + | Ethnic Group | Unknown | + + + Author + + + | Author | [facility] | | | and [place] | + + + | Organization | [facility] | | | and [place] [...] Providers + +------+ + | Care Senior Controls Engineer Name | Role | Phone | + +------+ + | Jason Read | PCP | | | MD | | | + +------+ + Reason for Visit +--------+ + | Reason | Comments | +--------+ + | Other | Labs | +--------+ + Encounter Details +--------+ + + + + | Date | Type | Department | Care Team | Description | +--------+ + + + + | 05/23/ | Telephone | [facility] | Jorje Rutledge | Other (Labs) | | 2019 | | [address] | [address] | | | | | [place], [place] | [address] [facility] | | | | | [address] | [place] [address] | | | | | [phone] | [phone] | | | | | | | [...] | | | | | [place] [address] | | | | | | [phone] | | | | | | | | +--------+---------+ + + + documented as of this encounter Visit Diagnoses Not on filedocumented in this encounter"
--- OUTSIDE RECORDS SUMMARY | ~2019-02-24 | XMS | Encounter Summary ---
Demographics + + + | Address | [address] | | | [place] [address] | + + + | Home Phone | | + + + | Preferred Language | Unknown | + + + | Marital Status | | + + + | Orthodoxy Affiliation | 1076 | + + + | Race | Unknown | + + + | Ethnic Group | Unknown | + + + Author + + + | Author | [facility] | | | and [place] | + + + | Organization | [facility] | | | and [place] [...] Team Providers + +------+ + | Care Office Clerk Assistant Name | Role | Phone | + +------+ + PCP | Unavailable | + +------+ + Encounter Details +--------+ + + + + | Date | Type | Department | Care Team | Description | +--------+ + + + + | 10/25/ | Hospital | [facility] | [place], | | | 2010 | Encounter | MED CTR XRAY [address] | Becca Segura MD | | | | | [place] | | | | | | [place] [address] | | | | | | [phone] | | | +--------+ + + + [...] + +---------+ + + | ipratropium | 2 puffs inhaled 4 | | 0 | 12/17/19 | | | (ATROVENT HFA) 17 | times a day | | | 11 | 2 | | mcg/puff inhaler | | | | | | + + + +---------+ + + documented as of this encounter Plan of Treatment +--------+---------+ + + + | Date | Type | Specialty | Care Team | Description | +--------+---------+ + + + | 03/13/ | Office | Urology | Jorje Rultedge | | | 2020 | Visit | | [address] | | | | | | [address] | | | | | | [place] [address] | | | | | | [phone] | | | | | | | | +--------+---------+ + + + documented as of this encounter Procedures + +--------+ + + + | Procedure Name | Priori | Date/Time | Associated Diagnosis | Comments | | | ty | | | | + +--------+ + + + | CT CHEST WO CONTRAST | | 12/16/2010 | | Results for this | | | | 10:02 AM | | procedure are in the | | | | PDT | | results section. | + +--------+ + + + documented in this encounter Results CT Chest wo Contrast (12/16/2010 10:02 AM PDT) + + | Specimen | + + | | + + + + + | Narrative | Performed At | + + + | [facility] | [facility] | | [address] [facility] | [facility] | | UNENHANCED CHEST CT: 12/16/2010 | [facility] | | CLINICAL HISTORY: FOLLOW UP PULMONARY NODULES. HISTORY OF | | | PROSTATE CANCER. COMPARISON: Chest CT 09/18/2010, CT abdomen | | | and pelvis 07/25/2007. TECHNIQUE: Axial unenhanced images are | | | performed through the chest, along with multiplanar reformations. | | | FINDINGS: There is atherosclerotic calcification of the thoracic | | | aorta. Prominent calcification is again visible at the origin of the | | | right subclavian artery, potentially causing flow-limiting | | | stenosis. There is atherosclerotic calcification of the coronary | | | arteries. There are stable subthreshold size lymph nodes within the | | | mediastinum, without pathologic lymph node enlargement on the basis | | | of size criteria. Heart and mediastinum are otherwise unremarkable. | | | There is no pneumothorax or pleural effusion. Previously described | | | nodule in the anterior, subpleural right middle lobe is again visible | | | and is stable compared with the study of 09/18/2010, measuring 8 mm | | | in diameter on image 116. A 6.5-mm subpleural nodule in the | | | posteromedial left lower lobe on image 120 is stable, along with a | | | 4-mm left lower lobe nodule on image 97. Two adjacent subpleural | | | nodules in the posterolateral left lower lobe on images 129 and 130 | | | are stable dating back to the study of 07/25/2007 and measure up to | | | 4.5 mm in diameter, along with a 5-mm nodule in the left lateral | | | costophrenic sulcus on image 149. A small, heavily calcified | | | granuloma in the left apex is stable also. No consolidation or | | | dominant mass is evident. Changes of centrilobular emphysema are | | | again noted. Course opacity adjacent to both hemidiaphragms is | | | consistent with atelectasis or fibrotic change, along with band-like | | | opacity in the medial right middle lobe and lingula. There is mild | | | central bronchial wall thickening bilaterally. There is | | | generalized rightward thoracic curvature with multilevel spondylosis. | | | Schmorl nodes are present within multiple mid to lower thoracic | | | vertebral endplates. Multiple round, low-attenuation lesions are | | | again visible within the imaged liver, measuring up to 10 mm in | | | maximal dimension and unchanged from previous, consistent with | | | hepatic cysts. Bones, soft tissues and imaged upper abdomen are | | | otherwise unremarkable. IMPRESSION: 1. STABLE SMALL | | | BILATERAL PULMONARY NODULES COMPARED WITH THE STUDY OF 2010, | | | SOME OF WHICH ARE UNCHANGED DATING BACK TO 07/25/2007. RECOMMEND | | | INTERVAL CT FOLLOWUP IN APPROXIMATELY SIX MONTHS TO CONFIRM | | | CONTINUED STABILITY. 2. CENTRILOBULAR EMPHYSEMA AND CENTRAL | | | BRONCHIAL WALL THICKENING POTENTIALLY REFLECTING BRONCHITIS. 3. 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 | | | CONSIDER FOLLOWUP CTA IF FURTHER CHARACTERIZATION IS DESIRED. 4. | | | STABLE LOW-ATTENUATION LESIONS IN THE IMAGED LIVER, CONSISTENT WITH | | | CYSTS. 5. SCOLIOSIS AND SPONDYLOSIS. Dictated Date/Time: | | | 12/17/2010 05:58 Transcribed Date/Time: 12/17/2010 07:02 | | | Area Supervisor: <Electronically Signed by Colin Merrill MD> | | | 12/17/10 1730 | | + + + + + | Procedure Note | + + | [place], Rad Conversion - 03/31/2013 4:06 PM [facility] | | Diagnostic Imaging Department | | [address] | | | | | | | | UNENHANCED CHEST CT: 12/16/2010 | | | | CLINICAL HISTORY: FOLLOW UP PULMONARY NODULES. HISTORY OF PROSTATE CANCER. | | | | COMPARISON: Chest CT 09/18/2010, CT abdomen and pelvis 07/25/2007. | | | | TECHNIQUE: Axial unenhanced images are performed through the chest, along with | | multiplanar reformations. | | | | FINDINGS: There is atherosclerotic calcification of the thoracic aorta. | | Prominent calcification is again visible at the origin of the right subclavian | | artery, potentially causing flow-limiting stenosis. There is atherosclerotic | | calcification of the coronary arteries. There are stable subthreshold size | | lymph nodes within the mediastinum, without pathologic lymph node enlargement | | on the basis of size criteria. Heart and mediastinum are otherwise | | unremarkable. There is no pneumothorax or pleural effusion. Previously | | described nodule in the anterior, subpleural right middle lobe is again visible | | and is stable compared with the study of 09/18/2010, measuring 8 mm in diameter | | on image 116. A 6.5-mm subpleural nodule in the posteromedial left lower lobe | | on image 120 is stable, along with a 4-mm left lower lobe nodule on image 97. | | Two adjacent subpleural nodules in the posterolateral left lower lobe on images | | 129 and 130 are stable dating back to the study of 07/25/2007 and measure up to | | 4.5 mm in diameter, along with a 5-mm nodule in the left lateral costophrenic | | sulcus on image 149. A small, heavily calcified granuloma in the left apex is | | stable also. No consolidation or dominant mass is evident. Changes of | | centrilobular emphysema are again noted. Course opacity adjacent to both | | hemidiaphragms is consistent with atelectasis or fibrotic change, along with | | band-like opacity in the medial right middle lobe and lingula. There is mild | | central bronchial wall thickening bilaterally. | | | | There is generalized rightward thoracic curvature with multilevel spondylosis. | | Schmorl nodes are present within multiple mid to lower thoracic vertebral | | endplates. Multiple round, low-attenuation lesions are again visible within the | | imaged liver, measuring up to 10 mm in maximal dimension and unchanged from | | previous, consistent with hepatic cysts. Bones, soft tissues and imaged upper | | abdomen are otherwise unremarkable. | | | | IMPRESSION: | | 1. STABLE SMALL BILATERAL PULMONARY NODULES COMPARED WITH THE STUDY OF | | 2010, SOME OF WHICH ARE UNCHANGED DATING BACK TO 07/25/2007. RECOMMEND INTERVAL | | CT FOLLOWUP IN APPROXIMATELY SIX MONTHS TO CONFIRM CONTINUED STABILITY. | | | | 2. CENTRILOBULAR EMPHYSEMA AND CENTRAL BRONCHIAL WALL THICKENING POTENTIALLY | | REFLECTING BRONCHITIS. | | | | 3. 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 CONSIDER FOLLOWUP | | CTA IF FURTHER CHARACTERIZATION IS DESIRED. | | | | 4. STABLE LOW-ATTENUATION LESIONS IN THE IMAGED LIVER, CONSISTENT WITH CYSTS. | | | | 5. SCOLIOSIS AND SPONDYLOSIS. | | | | Dictated Date/Time: 12/17/2010 05:58 | | Transcribed Date/Time: 12/17/2010 07:02 | | Area Supervisor: [place] | | <Electronically Signed by Colin Merrill MD> 12/17/10 2150 | + + + +---------+ + + | Performing | Address | City/State/Zipcode | Phone Number | | Organization | | | | + +---------+ + + | [place] | | | | | [place] | | | | + +---------+ + + documented in this encounter Visit Diagnoses Not on filedocumented in this encounter"
--- OUTSIDE RECORDS SUMMARY | ~2019-02-24 | XMS | Encounter Summary ---
Demographics + + + | Address | [address] | | | [place] [address] | + + + | Home Phone | | + + + | Preferred Language | Unknown | + + + | Marital Status | | + + + | Spiritism Affiliation | PRE | + + + | Race | White | + + + | Ethnic Group | Not or | + + + Author + + + | Author | [facility] | + + + | Organization | [facility] | + + + | Address | Unknown | + + + | Phone | Unavailable | + + + Support + + +---------+ + | Name | Relationship | Address | Phone | + + +---------+ + | Andrez Lucas | ECON | Unknown | Unavailable | + + +---------+ + Care Team Providers + +------+ + | Care Install And Repair Technician Name | Role | Phone | [...] Description | +--------+---------+ + + + | 06/11/ | Surgery | 6A [address] Op [address] | Fredrick Cherry | Endoscopic | | 2012 | | [address] | MD Cresenc[address] | intranasal control | | | | Rd [address] | [address] | of epistaxis; | | | | Hospital Admitting | [place], [place] | ethmoid artery | | | | Desk Located on the | [address] | ligation; maxillary | | | | 9th floor | [phone] | sinus lavage | | | | [place], [place] | | | | | | [address] | | | +--------+---------+ + + + [...] medications Details oxymetazoline 0.05 % Nasal Aerosol, [place] Instill 2 Sprays into each nostril every six hour s as needed (Epistaxis). Use for only 3 days. sodium chloride 0.65 % Nasal Aerosol, [place] Instill 2 Sprays in nose every two [...] concerning symptoms, call Dr. Cherry's clinic at [phone]. If you fee l you are having [...] 8. Pt should return to see Dr. Desiree Easton on Wednesday for packing removal at 2:[address] [facility] [phone] for questions. Destination: Destination: [facility] Condition on Discharge Good Vitals on [...] morning. | | | | | | release(DR/EC)Indica [...] | 0 | 06/15/19 | | | % Nasal Aerosol, | into each nostril | | | 13 | | | [place] | every six hours as | | [...] 2 Sprays in | | 0 | 06/15/19 | | | 0.65 % Nasal | nose every two hours | | | 13 | | | Aerosol, [place] | while awake. | | | | [...] 10:44 AM PDT PATIENT NAME: Diego Lucas MR#: [id number] : 1935 PRIMARY CARE PROVIDER: Parviz Brar, [...] though [facility]. ASSESSMENT: Mr. Lucas remains hospitalized for epistaxis [...] discharge today. Continue hydration. Follow up with Desiree Easton MD for pack removal on Wednesday. Fredrick Cherry M.D. Patient Services Technician Laryngology and Head & Neck Surgery [facility] DEPARTMENT: ENT LARYNGOLOGY PPV - [phone] Place of Service: [address]20 - Date of Service: 06/14/2012 CSN: [id number] Suggested Modifiers: GC - Resident Involved Suggested Level of Care: 99530 - Discharge Day mgmt up to 30 min Fredrick Villasenor MD - 06/13/2012 11:21 PM PDT PATIENT NAME: Diego Lucas [facility] MR#: [id number] : 1935 PRIMARY CARE PROVIDER: Parviz Brar, [...] if still not bleeding. Fredrick Cherry M.D. Patient Services Technician Laryngology and Head & Neck Surgery [facility] DEPARTMENT: ENT LARYNGOLOGY PPV - [phone] Place of Service: [address]2529 - Date of Service: 06/13/2012 CSN: [id number] Suggested Modifiers: GC - Resident Involved Suggested Level of Care: 16101 - Subsequent, Prob Foc/low complex 15 min Rush Mahmood MD - 06/13/2012 12:16 PM PDT [facility] Department of Surgery ENT Head & Neck [...] -Recheck crit tomorrow am Dispo: Back to tomorrow. Dr. Fredrick Cherry MD is the attending of record for this patient encounter. RUSH MOSS MD PGY-1, Plastic and Reconstructive Surgery pgr [phone] Diagnoses: 784.7 Epistaxis 654727 Anemia Meds: amLODIPine (aka NORVASC) tablet 5 [...] (aka AFRIN) 0.05 % nasal spray 2 [place], 2 [place], both nostrils, Q6H polyethylene glycol (aka MIRALAX) powder 17 g, 17 g, Oral, DAILY promethazine (aka PHENERGAN) injection 12.5 mg, 12.5 mg, Intravenous, Q6H PRN sodium chloride (aka OCEAN) 0.65 % nasal spray 2 [place], 2 [place], Nasal, Q2H [place] tamsulosin (aka FLOMAX) capsule 0.4 mg, 0.4 mg, Oral, QPM temazepam (aka RESTORIL) capsule 15 mg, 15 mg, Oral, HS PRN Fredrick Villasenor MD - 06/12/2012 9:17 PM PDT PATIENT NAME: Diego Lucas [facility] MR#: [id number] : 1935 PRIMARY CARE PROVIDER: Parviz Brar [...] equal. Vision is grossly intact on the mt ght. There is no red desaturation. The [...] Observe for resumed bleeding. Fredrick Cherry M.D. Patient Services Technician Laryngology and Head & Neck Surgery [facility] DEPARTMENT: ENT LARYNGOLOGY [facility] - [phone] Place of Service: 79140 - Date of Service: 06/12/2012 CSN: [id number] Suggested Modifiers: GC - Resident Involved Suggested Level of Care: 61114 - Subsequent, Prob Foc/low complex 15 min lDarius rodney MD - 06/12/2012 10:20 AM PDT Otolaryngology [...] IV 1 g, 1 g, Intravenous, Q8H, Mary Myers MD, 1 g at 06/12/12 0919 [...] DAILY, Oc Cochran MD, 10 mg at 05/24 03/06 [...] (aka AFRIN) 0.05 % nasal spray 2 [place], 2 [place], both nostrils, Q6H, Oc Cochran MD, 2 [place] at 06/11/12 0218 polyethylene glycol (aka MIRALAX) powder 17 g, 17 g, Oral, DAILY, Oc Cochran MD, 17 g at 06/10/12 0837 promethazine (aka PHENERGAN) injection 12.5 mg, 12.5 mg, Intravenous, Q6H PRN, Oc Cochran MD, 12.5 mg at 06/10/12 2210 sodium chloride (aka OCEAN) 0.65 % nasal spray 2 [place], 2 [place], Nasal, Q2H [place], Mary Myers MD, 2 [place] at 06/12/12 0127 tamsulosin (aka FLOMAX) capsule [...] Hospital Day:3 Attending Physician: Fredrick Cherry MD Mary Valentine MD - 06/11/2012 7:25 PM PDTINPATIENT BRIEF OPERATIVE NOTE Procedure Date: 06/11/2012 Author: MARY MYERS MD Attending Physician: Fredrick Cherry MD Assistants: Desiree Easton MD, Janeth Casiano MD, Mary Myers MD Prior to the beginning of [...] and sphenopalatine arteries identified and c lipped/ligated MARY MYERS MD raft, Desiree Knox MD - 0 06/11/2012 11:10 AM [...] this afternoon. Ancef while packing in place. 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 He has continued to bleed from the [...] Oc Cochran MD, 250 mg at 06/10/12 1473 ceFAZolin (aka ANCEF) IV 1 g, 1 g, Intravenous, Q8H, Mary Myers MD cetirizine (aka ZYRTEC) tablet 5 [...] injection 2 mg, 2 mg, Intravenous, ONCE, Mary Myers MD omeprazole (aka PRILOSEC) capsule 20 [...] (aka AFRIN) 0.05 % nasal spray 2 [place], 2 [place], both nostrils, Q6H, Oc Cochran MD, 2 [place] at 06/11/12 0218 polyethylene glycol (aka MIRALAX) powder 17 g, 17 g, Oral, DAILY, Oc Cochran MD, 17 g at 06/10/12 0837 promethazine (aka PHENERGAN) injection 12.5 mg, 12.5 mg, Intravenous, Q6H PRN, Oc Cochran MD, 12.5 mg at 06/10/12 2210 sodium chloride (aka OCEAN) 0.65 % nasal spray 2 [place], 2 [place], Nasal, Q2H [place], Mary Myers MD, 2 [place] at 06/10/12 2234 tamsulosin (aka FLOMAX) capsule [...] MD, Last Rate: 100 m L/hr at 06/10/12 0213, 100 mL/hr at 06/10/12 0213 loratadine (aka CLARITIN) tablet 10 mg, 10 [...] Oc osorio MD, 5 mg at 06/10/12 0217 oxymetazoline (aka AFRIN) 0.05 % nasal spray 2 [place], 2 [place], both nostrils, Q6H, Oc Cochran MD, 2 [place] at 06/10/12 0215 polyethylene glycol (aka MIRALAX) powder 17 g, [...] 3 results) Recent Labs Basename 06/10/12 0648 06/09/12205406/08/12626 WBC 10.9 -- 9.1 HB 8.0* 8.8* [...] plan to embolize right side noon - angeloan, phenergan for nausea OC COCHRAN MD Otolaryngology Head and Neck Surgery PGY2 pager [phone] documented in this enco unter Plan of [...] | | | een | | | [address] | | | | | | 3 [...] view image for the detailed interpretation from V[facility]O results. | CARDIOLOGY | + + + + + + + + | Performing | Address | City/State/Zipcode | Phone Number | | Organization | | | | + + + + + | [facility] | [address] | [place], [place] | | | CARDIOLOGY | [address] | [address] | | + + + + + RAINBOW HOLD TUBE - PURPLE TOP (06/13/2012 7:17 PM PDT) + + | Specimen | + + | Blood - Blood | + + + + + + + | Performing | Address | City/State/Zipcode | Phone Number | | Organization | | | | + + + + + | [facility] | [address] | [place] [address] | | | SERVICES, CORE | [address] [...] | | | LABORATORY | | | RUSSIAN | | | SERVICES, | | | [...] + + + + + | [facility] | [address] | [place] [address] | | | SERVICES, CORE | [address] | | | + + + + + TROPONIN I, PLASMA (06/13/2012 7:17 PM PDT) + +-------+ + + + | Component | Value | Ref Range | Performed | Pathologist | | | | | At | Signature | + +-------+ + + + | TROPONIN I | <0.02 | <0.80 ng/mL | [facility] | | | | | | LABORATORY [...] + + + + + | [facility] | [address] | [place] [address] | | | SERVICES, CORE | PARK [...] + + + + + | [facility] | [address] | [place] [address] | | | SERVICES, [facility] [place] | [address] | | | + + + + + OPERATION RECORD (06/13/2012 3:45 PM PDT) + + | Transcriptions | + + | Janeth Casiano MD - 06/12/2012 11:40 PM PDT Date: | | 06/11/2012ttending Surgeon: Fredrick Cherry M.D.Cafeteria Server(s): | | Janeth Casiano M.D. | | Ray Mobley MD | | Preoperative Diagnosis(es):1. Uncontrolled right-sided [...] | irrigation.Anesthesia:General.Blood Loss:25 cc.Complications:None | | apparent.Specimens:None.Drains:Quarter-inch Shea in right medial orbital | | incision.Indications:Mr. [...] of Avitene along the ethmoid bone. Aquarter-inch [place] was | | then placed and the [...] | pulsations just anterior tothis. Using a Grand elevator we then made an incision | [...] | inferior portion of the uncinate process. Wethen again irrigated from bilateral nasal | | [...] entirety of the procedure.Janeth Caballero | | Elmer Casiano.Fredrick Cherry M.D.LALA / [id number] / [id number] / [id number] / T: | | 06/12/2012 | |superior [...] just anterior to | |this. Using a Grand elevator we then made an incision through [...] a small gauze was placed over the Shea | |drain in the right medial Jimenez incision. | | | |He was extubated in the operating room, taken recovery room in stable | |condition. | | | |There were no apparent complications. | | | |Dr. Cherry was present for the entirety of the procedure. | | | | | |Janethsam Casiano M.D. | | | | | |Fredrick Cherry M.D. | | | |JGL / HS | |[id number] / [id number] / [id number] / | | | | | + [...] [facility] | [address] | [place] [address] | | | SERVICES, CORE | PARK [...] + + + + + | [facility] | [address] | [place] [address] | | | SERVICES, CORE | [address] [...] valves (2.5 - 3.5) INR APTT | RAFAEL TYLER | | Therapeutic Range: (75 - 120) sec | | | Heparin levels of 0.35 - 0.7 U/mL | | + + + + + + + + | Performing | Address | City/State/Zipcode | Phone Number | | Organization | | | | + + + + + | [facility] | [address] | [place] [address] | | | RAFAEL TYLER | [address] | | | + + + + + VBG SOR, POC (06/11/2012 8:10 PM PDT) + + + + + + | Component | Value | Ref Range | Performed | Pathologist | | | | | At | Signature | + + + + + + | OSMOLALITY | 287.5 | 275 - 295 | [facility] - | | | VENOUS, POC | | mmol/kg | [facility] | | | | | | SOPHIA GUERRERO | | | | | | OF CARE | | | | | | TESTS | | + + + + + + | PH VENOUS, | 7.37 | 7.35 - 7.45 | [facility] - | | | POC [...] | | VENOUS, POC | | | HILL, POINT | [...] | | VENOUS, POC | | | HILL, POINT | | | | | | OF CARE | | | | | | TESTS | | + + + + + + | DEOXYHEMOGL | 6.9 | | [facility] - | | | OBIN | | | [facility] | | | VENOUS, POC | | | HILL, POINT | [...] | | VENOUS, POC | | | HILL, POINT | [...] [facility] | | | | | | HILL POINT | | | | | | [...] + + + + | [facility] | [address] | [place], [place] | | | CESAR POINT OF CARE | [address] | [address] | | | TESTS | | | | + + + + + ABCarlos GRANADO POC (06/11/2012 8:03 PM PDT) + + [...] | | POC | | | SOPHIA GUERRREO | | | | | | OF CARE | | | | | | TESTS | | + + + + + + | PO2 | 125 (H) | 72 - 104 mmHg | [facility] - | | | ARTERIAL, | | | [facility] | | | POC | | | CESAR, POINT | | | | | | OF CARE | | | | | | TESTS | | + + + + + + | PCO2 | 49 (H) | 32 - 43 mmHg | [facility] | | | ARTERIAL, | | | [facility] | | | POC | | | CESAR, POINT | | [...] | | | POC | | | KRIS | | | | | | SOPHIA GUERRERO | | | | | | OF CARE | | | | | | TESTS | | + + + + + + | POTASSIUM, | 4.1 | 3.4 - 5.0 | [facility] - | | | POC | | mmol/L | [facility] | | [...] + | [facility] | [address] | [place], [place] | | | CESAR POINT OF CARE | [facility] | [address] | | | TESTS | | | [...] + + + + | PRODUCT | [id number] | | [facility] | | | UNIT [...] + + + + | BLOOD | 21710 | | [facility] | | | PRODUCT [...] | + + + + + | [facility] | [address] | [place] [address] | | | PATHOLOGY | [address] [...] + + + + | PRODUCT | [id number] | | [facility] | | | UNIT [...] + + + + | BLOOD | 01813 | | [facility] | | | PRODUCT [...] + + + + + | [facility] DE[facility] | [address] | [place] [address] | | | PATHOLOGY | [address] [...] view image for the detailed interpretation from V[facility]O results. | CARDIOLOGY | + + + + + + + + | Performing | Address | City/State/Zipcode | Phone Number | | Organization | | | | + + + + + | [facility] | [address] | [place], [place] | | | CARDIOLOGY | [facility] | [address] | | + + + + + [...] + + + + + | [facility] | [address] | [place] [address] | | | SERVICES, CORE | PARK [...] | + + + + + | [facility] | [address] | [place] [address] | | | SERVICES, CORE | ELIECER [...] | | | | | | on 06/11/2012 044. | | | | + + [...] + + + + + | [facility] | [address] | [place] [address] | | | SERVICES, CORE | PARK [...] + + + + | PRODUCT | [id number] | | [facility] | | | UNIT [...] + + + + | BLOOD | 87417 | | [facility] | | | PRODUCT [...] DEPARTMENT OF | [address] | [place] [address] | | | PATHOLOGY | [address] [...] + + + + | PRODUCT | [id number] | | [facility] | | | UNIT [...] + + + + | BLOOD | 11080 | | [facility] | | | PRODUCT [...] | + + + + + | [facility] | [address] | [place] [address] | | | PATHOLOGY | [address] [...] + + + + | PRODUCT | [id number] | | [facility] | | | UNIT [...] + + + + | BLOOD | 70940 | | [facility] | | | PRODUCT [...] DEPARTMENT OF | [address] | [place] [address] | | | PATHOLOGY | [address] [...] + + + + + | [facility] | [address] | [place] [address] | | | SERVICES, CORE | ELIECER [...] | | | LABORATORY | | | RUSSIAN | | | SERVICES, | | | [...] MDRD equation recommended by the | [facility] | | National Kidney Disease Education Program. Estimated GFR | LABORATORY | | Interpretive Information: <60 mL/min/1.73 sq m | NAYELI, CORE | | Chronic Kidney Disease <15 [...] + + + + + | [facility] | [address] | [place] [address] | | | NAYELI, RAFAEL | ELIECER [...] + + | [facility] | [address] | [place] [address] | | | SERVICES, CORE | EL[address]ECER [...] | + + + + + | [facility] | [address] | [place] [address] | | | SERVICES, CORE | [address] [...] | | | | | | M.D. WATER MAIN INSTALLER HELPER SURGEONS: | | | | | | Hormozd Bozorgchami, | | | | | | M.D. [...] | | | | | Bentson wire,a 6-Syriac | | | | | | short sheath was | | | | | | placed. Through the | | | | | | 6-Syriac shortsheath, a | | | | | | 6-Syriac Envoy was | | | | | [...] Through | | | | | | the, an 021 | | | | | [...] WEBBERuthor: | | | | | | EVA AHUJA MD | | | | | [...] | | | | | | / EVA | | | | | | LEIGHA 06/10/2012 | | | | | | 15:04 PM Preliminary / | | | | | | EVA AHUJA | | | | | | [...] + + | [facility] | [address] | [place] [address] | | | SERVICES, | [address] [...] [facility] | [address] | [place] [address] | | | SERVICES, | [address] [...] [facility] | [address] | [place] [address] | | | SERVICES, CORE | PARK [...] | | | | | mmol/L | [facility] | | | | | | SOPHIA GUERRERO | | | | | | OF CARE | | | | | | TESTS | | + +---------+ + + + | POTASSIUM, | 4.2 | 3.4 - 5.0 | [facility] - | | | POC | | mmol/L | [facility] | | | | | [...] | | POC | | %PCV | [facility] | | | | | [...] PONCE | [address] | [place], [place] | | | CESAR POINT OF [facility] | [facility] | [address] | | | TESTS | | | [...] + | Diagnosis | + + | Acute abscess of nasal sinus Acute sinusitis, unspecified | + + | Epistaxis | + + documented in this encounter Administered Medications + +--------+ +---------+------+------+ | Medication Order | MAR | Action | Dose | Rate | Site | | | Action | Date | | | | + +--------+ +---------+------+------+ | bacitracin ointment | Given | 06/12/19 | 1 strip | | Nose | | INTRAPROCEDURE PRN, Starting Sat | | 13 7:14 | | | | | 06/11/12 at 191, Until Sat | | PM PDT | | | | | 06/11/12 at 1930 | | | | | | + +--------+ +---------+------+------+ +---+---+ | | | +---+---+ + +-------+ +------+---+------+ | EPINEPHrine injection | Given | 06/12/19 | 1 mg | | Nose | | INTRAPROCEDURE PRN, Starting Sat | | 13 7:14 | | | | | 06/11/12 at 1914, Until Sat | | PM PDT | | | | | 06/11/12 at 1930 | | | | | | + +-------+ +------+---+------+ +---+---+ | | | +---+---+ + +-------+ +------+---+------+ | lidocaine-EPINEPHrine (aka | Given | 06/12/19 | 3 mL | | Nose | | XYLOCAINE WITH EPINEPHRINE) 1 | | 13 6:39 | | | | | %-1:100,000 injection | | PM PDT | | | | | INTRAPROCEDURE PRN, Starting Sat | | | | | | | 06/11/12 at 1735, Until Sat | | | | | | | 06/11/12 at 1930 | | | | | | + +-------+ +------+---+------+ +-------+ +------+---+------+ | Given | 06/12/19 | 5 mL | | Face | | | 13 5:35 | | | | | | PM PDT | | | | +-------+ +------+---+------+ +---+---+ | | | +---+---+ + +-------+ + +---+------+ | microfibrillar collagen (aka | Given | 06/12/19 | 1 packet | | Nose | | AVITENE) powder INTRAPROCEDURE | | 13 6:25 | | | | | PRN, Starting 06/11/12 at | | PM PDT | | | | | 1825, Until 06/11/12 at 1931 | | | | | | + +-------+ + +---+------+ +---+---+ | | | +---+---+ documented in this encounter
--- OUTSIDE RECORDS SUMMARY | ~2019-02-24 | XMS | Encounter Summary ---
Demographics + + + | Address | [address] | | | [place] [address] | + + + | Home Phone | | + + + | Preferred Language | Unknown | + + + | Marital Status | | + + + | Muslim Affiliation | 1076 | + + + | Race | Unknown | + + + | Ethnic Group | Unknown | + + + Author + + + | Author | [facility] | | | and [place] | + + + | Organization | [facility] | | | and [place] | + + + | Address | [...] Providers + +------+ + | Care Senior Electronics Design Engineer Name | Role | Phone | + +------+ + | Jason Read | PCP | | | MD | | | + +------+ + Reason for Visit + + + | Reason | Comments | + + + | Medication Prior | Megestrol | | Authorization | | + + + Encounter Details +--------+ + + + + | Date | Type | Department | Care Team | Description | +--------+ + + + + | 11/29/ | Telephone | [facility] | Jorje Rutledge | Medication Prior | | 2018 | | [address] | MD [address] | Authorization | | | | [place], [place] | [facility] [facility] | (Megestrol ) | | | | [address] | [place] [address] | | | | | [phone] | [phone] | | | | | | | [...] | | | | | [place] [address] | | | | | | [phone] | | | | | | | | +--------+---------+ + + + documented as of this encounter Visit Diagnoses Not on filedocumented in this encounter"
--- OUTSIDE RECORDS SUMMARY | ~2019-02-24 | XMS | Encounter Summary ---
Demographics + + + | Address | [address] | | | [place] [address] | + + + | Home Phone | | + + + | Preferred Language | Unknown | + + + | Marital Status | | + + + | Taoism Affiliation | 1076 | + + + | Race | Unknown | + + + | Ethnic Group | Unknown | + + + Author + + + | Author | [facility] | | | and [place] | + + + | Organization | [facility] | | | and [place] [...] Team Providers + +------+ + | Care Prorate Clerk Name | Role | Phone | + +------+ + | Parviz Brar DO | PCP | | + +------+ + Reason for Visit + + + | Reason | Comments | + + + | GI Bleeding | | + + + Encounter Details +--------+ + + + + | Date | Type | Department | Care Team | Description | +--------+ + + + + | 03/23/ | Telephone | [facility] | Froylan Werner MD | GI Bleeding | | 2018 | | GASTROENTEROLOGY | [address], [place] | | | | | [address] [place] | [address] [place], [place] | | | | | [address] [place], [place] | [address] | | | | | [address] | | | | | | [phone] | | | +--------+ + + + [...] | | | | | [place] [address] | | | | | | [phone] | | | | | | | | +--------+---------+ + + + documented as of this encounter Visit Diagnoses Not on filedocumented in this encounter"
--- OUTSIDE RECORDS SUMMARY | ~2019-02-24 | XMS | Encounter Summary ---
Demographics + + + | Address | [address] | | | [place] [address] | + + + | Home Phone | | + + + | Preferred Language | Unknown | + + + | Marital Status | | + + + | Islam Affiliation | 1076 | + + + | Race | Unknown | + + + | Ethnic Group | Unknown | + + + Author + + + | Author | [facility] | | | and [place] | + + + | Organization | [facility] | | | and [place] | [...] Team Providers + +------+ + | Care Aircraft Painter Name | Role | Phone | + [...] [address] | | | | | [place], [place] | [address] [facility] | | | | | [address] | [place] [address] | | | | | [phone] | [phone] | | | | | | | [...] 03/13/ | Office | Urology | Jorje uRtledge | | | 2020 | Visit | | MD [address] | | | | | | [address] | | | | | | [place] [address] | | | | | | [phone] | | | | | | | | +--------+---------+ + + + documented as of this encounter Visit Diagnoses Not on filedocumented in this encounter"
--- OUTSIDE RECORDS SUMMARY | ~2019-02-24 | XMS | Encounter Summary ---
Demographics + + + | Address | [address] | | | [place] [address] | + + + | Home Phone [...] Organization | [facility] | | | [...] Team Providers + +------+ + | Care Machine Mover Name | Role | Phone | + +------+ + PCP | Unavailable | + +------+ + Encounter Details +--------+ + + + + | Date | Type | Department | Care Team | Description | +--------+ + + + + | 03/06/ | Hospital | [facility] | | | | 1996 | Encounter | MED CTR XRAY [address] | | | | | | [address] | | | | | | [place] [address] | | | | | | [phone] | | | +--------+ + + + [...] | | | | | [place] [address] | | | | | | [phone] | | | | | | | | +--------+---------+ + + + documented as of this encounter Visit Diagnoses Not on filedocumented in this encounter"
--- OUTSIDE RECORDS SUMMARY | ~2019-02-24 | XMS | Encounter Summary ---
Demographics + + + | Address | [address] | | | [place] [address] | + + + | Home Phone | | + + + | Preferred Language | Unknown | + + + | Marital Status | | + + + | Jainism Affiliation | 1076 | + + + | Race | Unknown | + + + | Ethnic Group | Unknown | + + + Author + + + | Author | [facility] | | | and [place] | + + + | Organization | [facility] | | | and [place] [...] Team Providers + +------+ + | Care Shot Hole Driller Name | Role | Phone | + +------+ + PCP | Unavailable | + +------+ + Encounter Details +--------+ + + + + | Date | Type | Department | Care Team | Description | +--------+ + + + + | 10/25/ | Hospital | [facility] | [place], | | | 2010 | Encounter | MED CTR XRAY [address] | Becca Segura MD | | | | | [place] | | | | | | [place] [address] | | | | | | [phone] | | | +--------+ + + + [...] | | | | | [place] [address] | | | | | | [phone] | | | | | | | [...] Performed At | + + + | [facility] | [facility] | | [address] [facility] | [facility] | | UNENHANCED CHEST CT: 12/16/2010 | [...] Transcribed Date/Time: 12/17/2010 07:02 | | | Chronic Manager: <Electronically Signed by Colin Merrill MD> | | | 12/17/10 1530 | | + + + + + | Procedure Note | + + | [place], Rad Conversion - 03/31/2013 4:06 PM [facility] | | Diagnostic Imaging Department | | [address] [facility] | | | | | | | [...] | Transcribed Date/Time: 12/17/2010 07:02 | | Chronic Manager: LENNIE | | <Electronically Signed by Colin [...]
--- OUTSIDE RECORDS SUMMARY | ~2019-02-24 | XMS | Encounter Summary ---
Demographics + + + | Address | [address] | | | [place] [address] | + + + | Home Phone | | + + + | Preferred Language | Unknown | + + + | Marital Status | | + + + | Mandaeism Affiliation | 1076 | + + + | Race | Unknown | + + + | Ethnic Group | Unknown | + + + Author + + + | Author | [facility] | | | and [place] | + + + | Organization | [facility] | | | and [place] | [...] + + + + + | Candis eByer | ECON | NA | | | | | FILEMON LIND | | + + + + + Care Team Providers + +------+ + | Care Medical Liaison Name | Role | Phone | + +------+ + PCP | Unavailable | + +------+ + Encounter Details +--------+ + + + + | Date | Type | Department | Care Team | Description | +--------+ + + + + | 03/09/ | Hospital | [facility] | | | | 1994 | Encounter | MED CTR XRAY [address] | | | | | | [address] | | | | | | [place] [address] | | | | | | [phone] | | | +--------+ + + + [...] | | | | | [place] [address] | | | | | | [phone] | | | | | | | | +--------+---------+ + + + documented as of this encounter Visit Diagnoses Not on filedocumented in this encounter"
--- OUTSIDE RECORDS SUMMARY | ~2019-02-24 | XMS | Encounter Summary ---
Demographics + + + | Address | [address] | | | [place] [address] | + + + | Home Phone | | + + + | Preferred Language | Unknown | + + + | Marital Status | | + + + | Jehovah'S Witness Affiliation | 1076 | + + + | Race | Unknown | + + + | Ethnic Group | Unknown | + + + Author + + + | Author | [facility] | | | and [place] | + + + | Organization | [facility] | | | and [...] Team Providers + +------+ + | Care White Sugar Syrup Operator Name | Role | Phone | + +------+ + | Parviz Brar DO | PCP | | + +------+ + Reason for Visit +---------+ + | Reason | Comments | +---------+ + | Results | exertional oximetry | +---------+ + Encounter Details +--------+ + + + + | Date | Type | Department | Care Team | Description | +--------+ + + + + | 04/17/ | Telephone | [facility] [place] | [place], | Results (exertional | | 2013 | | PULMONARY [address] | Becca Segura MD | oximetry) | | | | [place], | | | | | | [place] [address] | | | | | | [phone] | | | +--------+ + + + [...] | | | | | [place] [address] | | | | | | [phone] | | | | | | | | +--------+---------+ + + + documented as of this encounter Visit Diagnoses Not on filedocumented in this encounter"
--- OUTSIDE RECORDS SUMMARY | ~2019-02-24 | XMS | Encounter Summary ---
Demographics + + + | Address | [address] | | | [place] [address] | + + + | Home Phone [...] + | Author | [facility] | | | and [place] | + + + | Organization | [facility] | | | and [place] [...] Team Providers + +------+ + | Care Qa Tester Name | Role | Phone | + +------+ + | Parviz Brar DO | PCP | | + +------+ + Encounter Details +--------+ + + + + | Date | Type | Department | Care Team | Description | +--------+ + + + + | 04/03/ | Hospital | [facility] | Jorje Rutledge | | | 2016 | Encounter | MED CTR LABORATORY | [address] | | | | | [address] [place] | [place]RAUSTO | | | | | [place], [place] | [place] [address] | | | | | [address] | [phone] | | | | | [phone] | | | +--------+ + + + [...] 0 | 11/05/19 | | | (PRILOSEC OT) 20 mg | Daily. | | | [...] +---------+ + + | tamsulosin | Take 2 capsules by | 60 | 11 | 04/03/19 | | | (FLOMAX) 0.4 mg CAPS | mouth nightly. | capsule | | 16 | 7 | | | OCCASIONALLY TAKES 2 | [...] | | | | | [place] [address] | | | | | | [phone] | | | | | | | | +--------+---------+ + + + documented as of this encounter Visit Diagnoses Not on filedocumented in this encounter"
--- OUTSIDE RECORDS SUMMARY | ~2019-02-24 | XMS | Encounter Summary ---
Demographics + + + | Address | [address] | | | [place] [address] | + + + | Home Phone | | + + + | Preferred Language | Unknown | + + + | Marital Status | | + + + | Christian Affiliation | 1076 | + + + | Race | Unknown | + + + | Ethnic Group | Unknown | + + + Author + + + | Author | [facility] | | | and [place] | + + + | Organization | [facility] | | | and [place] [...] Team Providers + +------+ + | Care Broadcaster Name | Role | Phone | + +------+ + | Parviz Brar DO | PCP | | + +------+ + Encounter Details +--------+ + + + + | Date | Type | Department | Care Team | Description | +--------+ + + + + | 06/16/ | Hospital | [facility] | Conversion | Pain | | 2017 | Encounter | CONVERSION [address] | Transaction, | | | | | [address] | Provider Unknown | | | | | [place], [place] | [phone] | | | | | [address] | | | | | | [phone] | | | +--------+ + + + [...] | | | | | [place] [address] | | | | | | [phone] | | | | | | | | +--------+---------+ + + + documented as of this encounter Procedures + +--------+ + + + | Procedure Name | Priori | Date/Time | Associated Diagnosis | Comments | | | ty | | | | + +--------+ + + + | CT CHEST WO CONTRAST | Routin | 06/16/2011 | | Results for this | | | e | 4:12 AM | | procedure are in the | | | | PDT | | results section. | + +--------+ + + + documented in this encounter Results CT Chest wo Contrast (06/16/2011 4:12 AM PDT) + + | Specimen | [...]
--- OUTSIDE RECORDS SUMMARY | ~2019-02-24 | XMS | Encounter Summary ---
Demographics + + + | Address | [address] | | | [place] [address] | + + + | Home Phone | | + + + | Preferred Language | Unknown | + + + | Marital Status | | + + + | Sabianist Affiliation | PRE | + + + | Race | White | + + + | Ethnic Group | Not or | + + + Author + + + | Author | [facility] | + + + | Organization | [facility] | + + + | Address | Unknown | + + + | Phone | Unavailable | + + + Support + + +---------+ + | Name | Relationship | Address | Phone | + + +---------+ + | Andrez Lucas | ECON | Unknown | Unavailable | + + +---------+ + Care Team Providers + +------+ + | Care Security System Administrator Name | Role | Phone | [...] | | | [address] | [facility] [address] | | | | | | Elio [address] | [place] | | | | | | [place] [facility] | [place], [place] | | | | | | [facility] | [address] | | | | | | [place], [place] | Phone: | | | | | | [address] | [phone] | | | | | | Phone: | Fax: | | | | | | [phone] | [phone] | +--------+--------+ + + + + Encounter Details +--------+---------+ + + + | Date | Type | Department | Care Team | Description | +--------+---------+ + + + | 07/04/ | Office | Otolaryngology | Desiree Easton, | Epistaxis (Primary | | 2012 | Visit | Laryngology Services | MD | Dx) | | | | at [facility] [address] | | | | | | [place], | | | | | | [place] [address] | | | | | | [phone] | | | +--------+---------+ + + + [...] 07/04/2012 9:54 AM PDTThank you for choosing [facility] Department of Otolaryngology for your health care needs. If you need to speak to an ENT physician after normal business hours, please call [phone] and ask to have the ENT phys davey hand surgeon paged. documented in this encounter Progress Notes Desiree Easton MD - 07/04/2012 10:08 AM PDTFormatting of this note might be different fr the original. PATIENT NAME: Diego Lucas [facility] MR#: [id number] : 1935 REFERRING PROVIDER: No Referring Provider Per Patient NO REFERRING PROVIDER PER PT PRIMARY CARE PROVIDER: Parviz Brar DO CLINIC: [facility] REASON FOR FOLLOW-UP: Chief Complaint Patient presents with Follow-up visit Nose bleed HPI: Diego Lucas is a 76 y.o. male who presents to the [facility] with [...] post-operative visit. He has been using his [place] Spr ay as directed. He has had no further issues with bleeding. He was about to be released fr om the residential, but was held for some additional cardiac testing. He hopes to return h [facility] to [place] soon. PMHx: Past Medical History Diagnosis Date [...] severe pain. oxymetazoline 0.05 % Nasal Aerosol, [place] Instill 2 Sprays into each nostril every six hours as needed (Epistaxis). Use for only 3 days. polyethylene glycol 17 gram/dose Oral Powder Take 17 g by mouth once daily. sodium chloride 0.65 % Nasal Aerosol, [place] Instill 2 Sprays in nose every two [...] have recommended that he continue to use [place] 2-3 times daily. He may resume his usual physical activities at this time. 2. Follow up as needed. DESIREE EASTON MD documented in this e ncounter Plan of Treatment Not on filedocumented as of this encounter Visit Diagnoses + + | Diagnosis | + + | Epistaxis - Primary | + + documented in this encounter"
--- OUTSIDE RECORDS SUMMARY | ~2019-02-24 | XMS | Encounter Summary ---
Demographics + + + | Address | [address] | | | [place] [address] | + + + | Home Phone | | + + + | Preferred Language | Unknown | + + + | Marital Status | | + + + | Faith Affiliation | 1076 | + + + | Race | Unknown | + + + | Ethnic Group | Unknown | + + + Author + + + | Author | [facility] | | | and [place] | + + + | Organization | [facility] | | | and [place] [...] Providers + +------+ + | Care Clinical Exercise Physiologist Name | Role | Phone | + +------+ + PCP | Unavailable | + +------+ + Encounter Details +--------+ + + + + | Date | Type | Department | Care Team | Description | +--------+ + + + + | 11/23/ | Hospital | [facility] | | | | 2008 - | Encounter | MED CTR CANCER | | | | | | CENTER [address] | | | | 12/22/ | | [place] | | | | 2008 | | [address] | | | | | | [phone] | | | +--------+ + + + [...] | | | | | | [place] [address] | | | | | | [phone] | | | | | | | | +--------+---------+ + + + documented as of this encounter Visit Diagnoses Not on filedocumented in this encounter"
--- OUTSIDE RECORDS SUMMARY | ~2019-02-24 | XMS | Encounter Summary ---
Demographics + + + | Address | [address] | | | [place] [address] | + + + | Home Phone | | + + + | Preferred Language | Unknown | + + + | Marital Status | | + + + | Anabaptism Affiliation | 1076 | + + + | Race | Unknown | + + + | Ethnic Group | Unknown | + + + Author + + + | Author | [facility] | | | and [place] | + + + | Organization | [facility] | | | and [...] Providers + +------+ + | Care Shot Blaster Name | Role | Phone | + +------+ + | Parviz Brar DO | PCP | | + +------+ + Reason for Visit +--------+ + | Reason | Comments | +--------+ + | Other | Breo | +--------+ + Encounter Details +--------+ + + + + | Date | Type | Department | Care Team | Description | +--------+ + + + + | 02/18/ | Telephone | [facility] [place] | [place], | Other (Breo) | | 2014 | | PULMONARY [address] | Becca Segura MD | | | | | [place], | | | | | | [place] [address] | | | | | | [phone] | | | +--------+ + + + [...] | | | | | [place] [address] | | | | | | [phone] | | | | | | | | +--------+---------+ + + + documented as of this encounter Visit Diagnoses Not on filedocumented in this encounter"
--- OUTSIDE RECORDS SUMMARY | ~2019-02-24 | XMS | Encounter Summary ---
Demographics + + + | Address | [address] | | | [place] [address] | + + + | Home Phone | | + + + | Preferred Language | Unknown | + + + | Marital Status | | + + + | Congregational Affiliation | 1076 | + + + | Race | Unknown | + + + | Ethnic Group | Unknown | + + + Author + + + | Author | [facility] | | | and [place] | + + + | Organization | [facility] | | | and [place] [...] Team Providers + +------+ + | Care Insert Molding Operator Name | Role | Phone | + +------+ + | Parviz Brar DO | PCP | | + +------+ + Reason for Visit +---------+ + | Reason | Comments | +---------+ + | Results | Pillcam | +---------+ + Encounter Details +--------+ + + + + | Date | Type | Department | Care Team | Description | +--------+ + + + + | 10/27/ | Telephone | [facility] [place] | Froylan Werner MD | Results (Pillcam) | | 2017 | | GASTROENTEROLOGY | [address], [place] | | | | | [address] [place] | [address] [place], [place] | | | | | [address] [place], [place] | [address] | | | | | [address] | | | | | | [phone] | | | +--------+ + + + [...] | | | | | [place] [address] | | | | | | [phone] | | | | | | | | +--------+---------+ + + + documented as of this encounter Visit Diagnoses Not on filedocumented in this encounter"
--- OUTSIDE RECORDS SUMMARY | ~2019-02-24 | XMS | Encounter Summary ---
Demographics + + + | Address | [address] | | | [place] [address] | + + + | Home Phone | | + + + | Preferred Language | Unknown | + + + | Marital Status | | + + + | Episcopal Affiliation | 1076 | + + + | Race | Unknown | + + + | Ethnic Group | Unknown | + + + Author + + + | Author | [facility] | | | and [place] | + + + | Organization | [facility] | | | and [place] [...] + + + + + | Candis BOWLING | NA | | | | | FILEMON LIND | | + + + + + Care Team Providers + +------+ + | Care Clerical Dentist Assistant Name | Role | Phone | + +------+ + | Jason Read | PCP | | | MD | | | + +------+ + Encounter Details +--------+ + + + + | Date | Type | Department | Care Team | Description | +--------+ + + + + | 06/11/ | Orders Only | [facility] | Zonia Parviz | | | 2016 | | CONVERSION [address] | E, DO [address] | | | | | [address] | [place] | | | | | [place], [place] | [address] | | | | | [address] | [phone] | | | | | [phone] | | | +--------+ + + + [...] | | | | | [place] [address] | | | | | | [phone] | | | | | | | | +--------+---------+ + + + documented as of this encounter Procedures + +--------+ + + + | Procedure Name | Priori | Date/Time | Associated Diagnosis | Comments | | | ty | | | | + +--------+ + + + | ECHO INTERPRETATION | Routin | 06/11/2016 | | Results for this | | OF OUTSIDE FILMS | e | 10:03 AM | | procedure are in the | | | | PDT | | results section. | + +--------+ + + + documented in this encounter Results ECHO Interpretation of Outside Films (06/11/2016 10:03 AM PDT) + + | Specimen | + + | | + + + + + | Impressions | Performed At | + + + | 1. The left ventricle is normal in sizem, wall thickness and | | | systolic function EF 55-60%. 2. The diastolic filling pattern | | | indicates impaired relaxation consistent with mild dysfunction (Grade | | | I). 3. The right ventricle is normal in size with normal systolic | | | function/ 4. Mild tricuspid regurgitation with mild pulmonary | | | hypertension RVSP 47 mmHg. 5. There is no pericardial effusion. | | + + + + + + | Narrative | Performed At | + + + | Patient Name: Diego Lucas Date of : 1935 | | | Performing Physician: Sailaja Niño | | | | | | INDICATIONS Murmur CONCLUSIONS 1. The | | | left ventricle is normal in sizem, wall thickness and systolic | | | function EF 55-60%. 2. The diastolic filling pattern indicates | | | impaired relaxation consistent with mild dysfunction (Grade I). 3. | | | The right ventricle is normal in size with normal systolic function/ | | | 4. Mild tricuspid regurgitation with mild pulmonary hypertension RVSP | | | 47 mmHg. 5. There is no pericardial effusion. FINDINGS -------- | | | ECG rhythm: Sinus rhythm. Study: A 2-dimensional transthoracic | | | echocardiogram with m-mode, spectral and color flow Doppler was | | | perfomed. Study: This was a technically adequate study. Left | | | Ventricle: Overall left ventricular systolic function is normal with, | | | an EF between 55 - 60 %. Left Ventricle: The left ventricle cavity | | | size is normal. Left Ventricle: Left ventricular wall thickness is | | | normal. Left Ventricle: The diastolic filling pattern indicates | | | impaired relaxation consistent with mild dysfunction (Grade I). Mild | | | Left Ventricle: inferobasal hypokinesis. Right Ventricle: The right | | | ventricle is normal in size. Right Ventricle: The right ventricular | | | systolic function is normal. Left Atrium: The left atrial size is | | | normal. Right Atrium: The right atrium is normal in size. Aortic | | | Valve: Aortic valve is trileaflet. Aortic Valve: There is mild aortic | | | valve sclerosis without stenosis. Aortic Valve: Trace amount of | | | aortic regurgitation. Mitral Valve: The mitral valve is normal. | | | Mitral Valve: Mild mitral regurgitation is present. Mitral Valve: | | | Limited M mode through the mitral valve. Accelated systolic flow | | | throught the LVOT, suspect mild systolic anterior motion of the mitral | | | valve. Tricuspid Valve: The tricuspid valve appears structurally | | | normal. Tricuspid Valve: Mild tricuspid regurgitation present. | | | Tricuspid Valve: There is mild pulmonary hypertension. Tricuspid | | | Valve: The right ventricular systolic pressure (pulmonary artery | | | systolic pressure), as measured by Doppler, is 47.15mmHg. Pulmonic | | | Valve: The pulmonic valve is normal. Pulmonic Valve: Mild pulmonic | | | regurgitation. Pericardium: There is no pericardial effusion. | | | Pericardium: No pleural effusion seen. IVC/Hepatic Veins: The IVC is | | | normal size (1.5-2.5cm) and collapses >50% with sniff, consistent with | | | central venous pressures of 5-10mmHg. Aorta: The aortic root, | | | ascending aorta are within normal dimensions. MEASUREMENTS | | | Ao asc: 3.72 cm Ao Diam: 3.35 cm Ao sinus: | | | 3.[address] junct: 3.43 cm IVC: 1.68 cm LA Diam: 4.38 cm | | | LA Major: 5.01 cm EDV(Teich): 77.12 ml IVSd: 0.99 cm | | | LVIDd: 4.16 cm LVPWd: 0.99 cm LVOT Area: 3.08 cm2 LVOT | | | Diam: 1.98 cm %FS: 18.59 % EF(Teich): 38.84 % ESV(Teich): | | | 47.16 ml LVIDs: 3.39 cm SV(Teich): 29.95 ml RA Major: | | | 4.83 cm RV Major: 6.37 cm RVIDd: 3.17 cm LVEF MOD A2C: | | | 55.18 % SV MOD A2C: 46.56 ml LVEF MOD A4C: 57.26 % SV MOD | | | A4C: 59.50 ml EF Biplane: 57.10 % LVEDV MOD BP: 95.15 ml | | | LVESV MOD BP: 40.81 ml LVEDV MOD A2C: 84.36 ml LVLd A2C: | | | 8.59 cm LVEDV MOD A4C: 103.91 ml LVLd A4C: 8.89 cm LVESV MOD | | | A2C: 37.80 ml LVLs A2C: 7.83 cm LVESV MOD A4C: 44.41 ml | | | LVLs A4C: 7.70 cm LAESV(A-L): 55.22 ml LAESV Index (A-L): | | | 27.33 ml/m2 LAAs A2C: 18.95 cm2 LAESV A-L A2C: 56.88 ml LALs | | | A2C: 5.36 cm LAAs A4C: 17.45 cm2 LAESV A-L A4C: 50.86 ml | | | LALs A4C: 5.08 cm RAAs: 13.90 cm2 RAESV A-L: 34.51 ml | | | RAESV MOD: 32.71 ml RALs: 4.75 cm TAPSE: 1.79 cm AV maxPG: | | | 10.58 mmHg AV meanP.29 mmHg AV Vmax: 1.62 m/s AV | | | Vmean: 1.18 m/s AV VTI: 31.29 cm PANCHO Vmax: 3.05 cm2 PANCHO | | | (VTI): 3.05 cm2 AVAI Vmax: 0.00 cm2/m2 AVAI (VTI): 0.00 | | | cm2/m2 LVOT maxP.38 mmHg LVOT meanP.72 mmHg LVSI | | | Dopp: 47.36 ml/m2 LVSV Dopp: 95.67 ml LVOT Vmax: 1.61 m/s | | | LVOT Vmean: 1.10 m/s LVOT VTI: 30.97 cm MV A Justin: 0.89 m/s | | | MV DecT: 265.07 ms MV E Justin: 0.58 m/s MV E/A Ratio: 0.65 | | | MV PHT: 76.87 ms MVA By PHT: 2.86 cm2 Septal e': 0.04 m/s | | | Septal E/e': 12.88 Lateral e': 0.09 m/s Lateral E/e': 6.53 | | | RAP: 5 mmHg RVSP: 47.14 mmHg TR maxP.14 mmHg TR | | | Vmax: 3.24 m/s Adjunct Sociology Professor: MARIUM Authenticated by: Sailaja | | | Renay Report Date/Time: 06-11-2016 21:02:25 | | + + + + + | Procedure Note | + + | Duke Albert - 10/13/2018 8:10 PM PDT Patient Name: Ana Maria Lucas of | | : 1935 Performing Physician: Sailaja | | Renay INDICATIONS------ | | -----Murmur CONCLUSIONS 1. The left ventricle is normal in sizem, wall | | thickness and systolic function EF 55-60%.2. The diastolic filling pattern indicates | | impaired relaxation consistent with mild dysfunction (Grade I).3. The right ventricle is | | normal in size with normal systolic function/4. Mild tricuspid regurgitation with mild | | pulmonary hypertension RVSP 47 mmHg.5. There is no pericardial effusion. | | FINDINGS--------ECG rhythm: Sinus rhythm.Study: A 2-dimensional transthoracic | | echocardiogram with m-mode, spectral and color flow Doppler was perfomed.Study: This was | | a technically adequate study.Left Ventricle: Overall left ventricular systolic function | | is normal with, an EF between 55 - 60 %.Left Ventricle: The left ventricle cavity size | | is normal.Left Ventricle: Left ventricular wall thickness is normal.Left Ventricle: The | | diastolic filling pattern indicates impaired relaxation consistent with mild dysfunction | | (Grade I). MildLeft Ventricle: inferobasal hypokinesis.Right Ventricle: The right | | ventricle is normal in size.Right Ventricle: The right ventricular systolic function is | | normal.Left Atrium: The left atrial size is normal.Right Atrium: The right atrium is | | normal in size.Aortic Valve: Aortic valve is trileaflet.Aortic Valve: There is mild | | aortic valve sclerosis without stenosis.Aortic Valve: Trace amount of aortic | | regurgitation.Mitral Valve: The mitral valve is normal.Mitral Valve: Mild mitral | | regurgitation is present.Mitral Valve: Limited M mode through the mitral valve. | | Accelated systolic flow throught the LVOT, suspect mild systolic anterior motion of the | | mitral valve.Tricuspid Valve: The tricuspid valve appears structurally normal.Tricuspid | | Valve: Mild tricuspid regurgitation present.Tricuspid Valve: There is mild pulmonary | | hypertension.Tricuspid Valve: The right ventricular systolic pressure (pulmonary artery | | systolic pressure), as measured by Doppler, is 47.15mmHg.Pulmonic Valve: The pulmonic | | valve is normal.Pulmonic Valve: Mild pulmonic regurgitation.Pericardium: There is no | | pericardial effusion.Pericardium: No pleural effusion seen.IVC/Hepatic Veins: The IVC is | | normal size (1.5-2.5cm) and collapses >50% with sniff, consistent with central venous | | pressures of 5-10mmHg.Aorta: The aortic root, ascending aorta are within normal | | dimensions. MEASUREMENTS Ao asc: 3.72 cmAo Diam: 3.35 cmAo sinus: 3.9 | | cmAo st junct: 3.43 cmIVC: 1.68 cmLA Diam: 4.38 cmLA Major: 5.01 cmEDV(Teich): | | 77.12 mlIVSd: 0.99 cmLVIDd: 4.16 cmLVPWd: 0.99 cmLVOT Area: 3.08 [id number] Diam: | | 1.98 cm%FS: 18.59 %EF(Teich): 38.84 %ESV(Teich): 47.16 mlLVIDs: 3.39 | | cmSV(Teich): 29.95 mlRA Major: 4.83 cmRV Major: 6.37 cmRVIDd: 3.17 cmLVEF MOD | | A2C: 55.18 %SV MOD A2C: 46.56 mlLVEF MOD A4C: 57.26 %SV MOD A4C: 59.50 mlEF | | Biplane: 57.10 %LVEDV MOD BP: 95.15 mlLVESV MOD BP: 40.81 mlLVEDV MOD A2C: 84.36 | | mlLVLd A2C: 8.59 cmLVEDV MOD A4C: 103.91 mlLVLd A4C: 8.89 cmLVESV MOD A2C: | | 37.80 mlLVLs A2C: 7.83 cmLVESV MOD A4C: 44.41 mlLVLs A4C: 7.70 cmLAESV(A-L): | | 55.22 mlLAESV Index (A-L): 27.33 ml/m2LAAs A2C: 18.95 [id number] A-L A2C: 56.88 | | mlLALs A2C: 5.36 cmLAAs A4C: 17.45 [id number] A-L A4C: 50.86 mlLALs A4C: 5.08 | | cmRAAs: 13.90 [id number] A-L: 34.51 mlRAESV MOD: 32.71 mlRALs: 4.75 cmTAPSE: | | 1.79 cmAV maxP.58 mmHgAV meanP.29 mmHgAV Vmax: 1.62 m/Cecy Vmean: 1.18 | | m/Cecy VTI: 31.29 cmAVA Vmax: 3.05 cm2AVA (VTI): 3.05 [id number] Vmax: 0.00 | | cm2/m2AVAI (VTI): 0.00 cm2/m2LVOT maxP.38 mmHgLVOT meanP.72 mmHgLVSI | | Dopp: 47.36 ml/m2LVSV Dopp: 95.67 mlLVOT Vmax: 1.61 m/sLVOT Vmean: 1.10 m/sLVOT | | VTI: 30.97 cmMV A Justin: 0.89 m/sMV DecT: 265.07 msMV E Justin: 0.58 m/sMV E/A Ratio: | | 0.65MV PHT: 76.87 msMVA By PHT: 2.86 [id number] e': 0.04 m/sSeptal E/e': | | 12.88Lateral e': 0.09 m/sLateral E/e': 6.53RAP: 5 mmHgRVSP: 47.14 mmHgTR maxPG: | | 42.14 mmHgTR Vmax: 3.24 m/s Adjunct Sociology Professor: DHAuthenticated by: Sailaja Rocha | | Date/Time: 06-11-2016 21:02:25 IMPRESSION: 1. The left ventricle is normal in sizem, | | wall thickness and systolic function EF 55-60%.2. The diastolic filling pattern | | indicates impaired relaxation consistent with mild dysfunction (Grade I).3. The right | | ventricle is normal in size with normal systolic function/4. Mild tricuspid | | regurgitation with mild pulmonary hypertension RVSP 47 mmHg.5. There is no pericardial | | effusion. | |Ao st junct: 3.43 cm | |IVC: 1.68 cm | |LA Diam: 4.38 cm | |LA Major: 5.01 cm | |EDV(Teich): 77.12 ml | |IVSd: 0.99 cm | |LVIDd: 4.16 cm | |LVPWd: 0.99 cm | |LVOT Area: 3.08 cm2 | |LVOT Diam: 1.98 cm | |%FS: 18.59 % | |EF(Teich): 38.84 % | |ESV(Teich): 47.16 ml | |LVIDs: 3.39 cm | |SV(Teich): 29.95 ml | |RA Major: 4.83 cm | |RV Major: 6.37 cm | |RVIDd: 3.17 cm | |LVEF MOD A2C: 55.18 % | |SV MOD A2C: 46.56 ml | |LVEF MOD A4C: 57.26 % | |SV MOD A4C: 59.50 ml | |EF Biplane: 57.10 % | |LVEDV MOD BP: 95.15 ml | |LVESV MOD BP: 40.81 ml | |LVEDV MOD A2C: 84.36 ml | |LVLd A2C: 8.59 cm | |LVEDV MOD A4C: 103.91 ml | |LVLd A4C: 8.89 cm | |LVESV MOD A2C: 37.80 ml | |LVLs A2C: 7.83 cm | |LVESV MOD A4C: 44.41 ml | |LVLs A4C: 7.70 cm | |LAESV(A-L): 55.22 ml | |LAESV Index (A-L): 27.33 ml/m2 | |LAAs A2C: 18.95 cm2 | |LAESV A-L A2C: 56.88 ml | |LALs A2C: 5.36 cm | |LAAs A4C: 17.45 cm2 | |LAESV A-L A4C: 50.86 ml | |LALs A4C: 5.08 cm | |RAAs: 13.90 cm2 | |RAESV A-L: 34.51 ml | |RAESV MOD: 32.71 ml | |RALs: 4.75 cm | |TAPSE: 1.79 cm | |AV maxP.58 mmHg | |AV meanP.29 mmHg | |AV Vmax: 1.62 m/s | |AV Vmean: 1.18 m/s | |AV VTI: 31.29 cm | |PANCHO Vmax: 3.05 cm2 | |PANCHO (VTI): 3.05 cm2 | |AVAI Vmax: 0.00 cm2/m2 | |AVAI (VTI): 0.00 cm2/m2 | |LVOT maxP.38 mmHg | |LVOT meanP.72 mmHg | |LVSI Dopp: 47.36 ml/m2 | |LVSV Dopp: 95.67 ml | |LVOT Vmax: 1.61 m/s | |LVOT Vmean: 1.10 m/s | |LVOT VTI: 30.97 cm | |MV A Justin: 0.89 m/s | |MV DecT: 265.07 ms | |MV E Justin: 0.58 m/s | |MV E/A Ratio: 0.65 | |MV PHT: 76.87 ms | |MVA By PHT: 2.86 cm2 | |Septal e': 0.04 m/s | |Septal E/e': 12.88 | |Lateral e': 0.09 m/s | |Lateral E/e': 6.53 | |RAP: 5 mmHg | |RVSP: 47.14 mmHg | |TR maxP.14 mmHg | |TR Vmax: 3.24 m/s | | | |Adjunct Sociology Professor: | |Authenticated by: Sailaja Niño | |Report Date/Time: 06-11-2016 21:02:25 | | | |IMPRESSION: | |1. The left ventricle is normal in sizem, wall thickness and systolic function EF 55-60%. | |2. The diastolic filling pattern indicates impaired relaxation consistent with mild dysfunc tion (Grade I). | |3. The right ventricle is normal in size with normal systolic function/ | |4. Mild tricuspid regurgitation with mild pulmonary hypertension RVSP 47 mmHg. | |5. There is no pericardial effusion. | + + documented in this encounter Visit Diagnoses Not on filedocumented in this encounter"
--- OUTSIDE RECORDS SUMMARY | ~2019-02-24 | XMS | Encounter Summary ---
Demographics + + + | Address | [address] | | | [place] [address] | + + + | Home Phone [...] Organization | [facility] | | | and [...] Team Providers + +------+ + | Care Tube Rebuilder Name | Role | Phone | + +------+ + | Parviz Brar DO | PCP | | + +------+ + Encounter Details +--------+ + + + + | Date | Type | Department | Care Team | Description | +--------+ + + + + | 04/14/ | Hospital | [facility] | [place], | | | 2013 | Encounter | MED CTR GENERIC OP | Becca Segura MD | | | | | CONV DEPT [address] | | | | | | [place], | | | | | | [place] [address] | | | | | | [phone] | | | +--------+ + + + [...] + + + +---------+ + + | Cyanocobalamin | Take by mouth | | 0 | | | | (VITAMIN B-12 PO) | Daily. | | | | 5 | + + + +---------+ + + | ferrous sulfate | Take 325 mg by mouth | | 0 | | | | 325 mg tablet | daily (with | | | | 5 | | | breakfast). | | | | | + + + +---------+ + + | fluticasone | Inhale 1 puff into | 1 | 3 | 11/29/19 | | | (FLOVENT HFA) 220 | the lungs 2 times | Inhaler | | 13 | 4 | | mcg/puff inhaler | daily. | | | | | + + + +---------+ + + | folic acid | Take 400 mcg by | | 0 | | | | (FOLVITE) 400 MCG | mouth Daily. | | | | 5 | [...] puffs into | 1 | 11 | 04/14/19 | | | (ATROVENT HFA) 17 | the lungs 2 times | Inhaler | | 14 | 4 | | mcg/puff inhaler | daily. | [...] | | | | | [place] [address] | | | | | | [phone] | | | | | | | | +--------+---------+ + + + documented as of this encounter Visit Diagnoses Not on filedocumented in this encounter"
--- OUTSIDE RECORDS SUMMARY | ~2019-02-24 | XMS | Encounter Summary ---
Demographics + + + | Address | [address] | | | [place] [address] | + + + | Home Phone | | + + + | Preferred Language | Unknown | + + + | Marital Status | | + + + | Muslim Affiliation | 1076 | + + + | Race | Unknown | + + + | Ethnic Group | Unknown | + + + Author + + + | Author | [facility] | | | and [place] | + + + | Organization | [facility] | | | and [...] Team Providers + +------+ + | Care Assistant Center Manager Name | Role | Phone | + +------+ + PCP | Unavailable | + +------+ + Encounter Details +--------+ + + + + | Date | Type | Department | Care Team | Description | +--------+ + + + + | 04/24/ | Hospital | [facility] | [place], | | | 2011 | Encounter | MED CTR XRAY [address] | Becca Segura MD | | | | | [address] | | | | | | [place] [address] | | | | | | [phone] | | | +--------+ + + + [...] | | | | | [place] [address] | | | | | | [phone] | | | | | | | | +--------+---------+ + + + documented as of this encounter Procedures + +--------+ + + + | Procedure Name | Priori | Date/Time | Associated Diagnosis | Comments | | | ty | | | | + +--------+ + + + | CT CHEST WO CONTRAST | | 06/16/2011 | | Results for this | | | | 12:30 PM | | procedure are in the | | | | PDT | | results section. | + +--------+ + + + documented in this encounter Results CT Chest wo Contrast (06/16/2011 12:30 PM PDT) + + | Specimen | + + | | + + + + + | Narrative | Performed At | + + + | [facility] Diagnostic Imaging Department | [facility] | | [address] [facility] | [facility] | | CHEST CT WITHOUT IV CONTRAST | [facility] | | 06/16/2011 CLINICAL HISTORY: PULMONARY NODULES AND COPD. | | | COMPARISON STUDY: November 2010. FINDINGS: There are stable | | | small noncalcified pulmonary nodules distributed throughout the left | | | and right lungs. There is no progression. No new nodules are seen. | | | There is 1 stable calcified nodule at the left lung apex. There | | | is an extensive background of centrilobular emphysema. There is | | | bronchie ctasis and peribronchial thickening towards the lung bases, | | | right greater than left. There are patch y horizontal linear bands | | | of fibrosis at both lung bases. No mediastinal adenopathy is seen. | | | Atheros clerotic vascular calcifications noted. Partially imaged | | | upper abdominal structures without contrast demonstrate low | | | attenuation lesions of liver suggesting hepatic cysts. | | | IMPRESSION: 1. STABLE BILATERAL PULMONARY NODULES. 2. | | | EXTENSIVE CENTRAL LOBULAR EMPHYSEMA. 3. BRONCHIAL | | | THICKENING AND BRONCHIECTASIS IN A PREDOMINANTLY BASILAR DISTRIBUTION. | | | 4. BASILAR LINEAR HORIZONTAL STRANDS OF FIBROSIS. | | | Dictated Date/Time: 06/17/2011 14:31 Transcribed Date/Time: | | | 06/17/2011 14:38 Community Fundraiser: <Electronically Signed | | | by Krzysztof Jewell MD> 06/18/11 0757 | | + + + + + | Procedure Note | + + | [place], Rad Conversion - 03/31/2013 5:11 PM [facility] | | Diagnostic Imaging Department [address] [place] [address] | | CHEST CT WITHOUT IV CONTRAST 06/16/2011 CLINICAL | | HISTORY: PULMONARY NODULES AND COPD. COMPARISON STUDY: November 2010. FINDINGS: | | There are stable small noncalcified pulmonary nodules distributed throughout the left | | and right lungs. There is no progression. No new nodules are seen. There is 1 stable | | calcified nodule at the left lung apex. There is an extensive background of | | centrilobular emphysema. There is bronchiectasis and peribronchial thickening towards | | the lung bases, right greater than left. There are patchy horizontal linear bands of | | fibrosis at both lung bases. No mediastinal adenopathy is seen. Atherosclerotic | | vascular calcifications noted. Partially imaged upper abdominal structures without | | contrast demonstrate low attenuation lesions of liver suggesting hepatic cysts. | | IMPRESSION: 1. STABLE BILATERAL PULMONARY NODULES. 2. EXTENSIVE CENTRAL LOBULAR | | EMPHYSEMA. 3. BRONCHIAL THICKENING AND BRONCHIECTASIS IN A PREDOMINANTLY BASILAR | | DISTRIBUTION. 4. BASILAR LINEAR HORIZONTAL STRANDS OF FIBROSIS. Dictated Date/Time: | | 06/17/2011 14:31Transcribed Date/Time: 06/17/2011 14:38Transcriptionist: | | <Electronically Signed by Krzysztof Jewell MD> 06/18/11 0757 | |clerotic vascular calcifications noted. Partially imaged upper abdominal structures withou t contrast | | demonstrate low attenuation lesions of liver suggesting hepatic cysts. | | | |IMPRESSION: | |1. STABLE BILATERAL PULMONARY NODULES. | | | |2. EXTENSIVE CENTRAL LOBULAR EMPHYSEMA. | | | |3. BRONCHIAL THICKENING AND BRONCHIECTASIS IN A PREDOMINANTLY BASILAR DISTRIBUTION. | | | |4. BASILAR LINEAR HORIZONTAL STRANDS OF FIBROSIS. | | | |Dictated Date/Time: 06/17/2011 14:31 | |Transcribed Date/Time: 06/17/2011 14:38 | |Community Fundraiser: | |<Electronically Signed by Krzysztof Jewell MD> 06/18/11 0757 | + + + +---------+ + + | Performing | Address | City[facility] | Phone Number | | Organization | | | | + +---------+ + + | [place] | | | | | [place] | | | | + +---------+ + + documented in this encounter Visit Diagnoses Not on filedocumented in this encounter"
--- OUTSIDE RECORDS SUMMARY | ~2019-02-24 | XMS | Encounter Summary ---
Demographics + + + | Address | [address] | | | [place] [address] | + + + | Home Phone | | + + + | Preferred Language | Unknown | + + + | Marital Status | | + + + | Roman Catholic Affiliation | 1076 | + + + | Race | Unknown | + + + | Ethnic Group | Unknown | + + + Author + + + | Author | [facility] | | | and [place] | + + + | Organization | [facility] | | | and [place] [...] Team Providers + +------+ + | Care Timing Machine Operator Name | Role | Phone [...] + + | 12/18/ | Office | [facility] | [place], | COPD (chronic | | 2013 | Visit | PULMONARY [address] | Becca Segura MD | obstructive | | | | [place], | | pulmonary disease) | | | | [place] [address] | | (Primary Dx); | | | | [phone] | | Nocturnal hypoxemia | | | [...] He is currently on 2 LPM at [facility]. He reports good compliance. He does not [...] Pulmonary nodules Cataracts, bilateral Pneumonia 05/2012 hospitalized [facility] Shoulder fracture 02/2012 Foot fracture 02/2012 [...] home. No other animal exposures.Grew up in [place]. Then lived in [place]. Then move d to [place]. In the service lived in [facility] and [place]. No recent travel. Allergies: Allergies Allergen Reactions [...] into the lungs nightly. Respiratory Therapy Supplies [facility] Please provide an O2 concentrator while Diego [...] made to ensure accuracy; however, inadvertent computerized invoice coder errors may be pre sent. Electronically signed [...] | | | | | [place] [address] | | | | | | [phone] | | | | | | | [...]
--- OUTSIDE RECORDS SUMMARY | ~2019-02-24 | XMS | Encounter Summary ---
Demographics + + + | Address | [address] | | | [place] [address] | + + + | Home Phone | | + + + | Preferred Language | Unknown | + + + | Marital Status | | + + + | Christian Affiliation | 1076 | + + + | Race | Unknown | + + + | Ethnic Group | Unknown | + + + Author + + + | Author | [facility] | | | and [place] | + + + | Organization | [facility] | | | and [place] [...] Team Providers + +------+ + | Care Shipping Specialist Name | Role | Phone | + +------+ + PCP | Unavailable | + +------+ + Encounter Details +--------+ + + + + | Date | Type | Department | Care Team | Description | +--------+ + + + + | 11/03/ | Abstract | [facility] | DATA MIGRATION BIB | | | 2011 | | Conversion Location | SR | | | | | [phone] | | | +--------+ + + + [...] + + + | Blood Pressure | 130/80 | 10/15/2011 12:00 AM | | | | | PDT | | + + + + + | Pulse | - | - | | + [...] + + + + | Weight | 81.8 kg (180 lb 4.8 | 10/15/2011 12:00 AM | | | | oz) | PDT | | + + + + + | Height | 180.3 cm (5' 11") | 09/23/2010 12:00 AM | | | | | PDT | | + + + + + | Body Mass Index | 25.19 | 09/23/2010 12:00 AM | | | | | PDT | | + + + + + documented in this encounter Plan of Treatment +--------+---------+ + + + | Date | Type | Specialty | Care Team | Description | +--------+---------+ + + + | 03/13/ | Office | Urology | Jorje Rutledge | | | 2019 | Visit | | MD [address] | | | | | | [place] | | | | | | [place] [address] | | | | | | [phone] | | | | | | | | +--------+---------+ + + + documented as of this encounter Visit Diagnoses Not on filedocumented in this encounter
--- OUTSIDE RECORDS SUMMARY | ~2019-02-24 | XMS | Encounter Summary ---
Demographics + + + | Address | [address] | | | [place] [address] | + + + | Home Phone | | + + + | Preferred Language | Unknown | + + + | Marital Status | | + + + | Restorationism Affiliation | 1076 | + + + | Race | Unknown | + + + | Ethnic Group | Unknown | + + + Author + + + | Author | [facility] | | | and [place] | + + + | Organization | [facility] | | | and [place] | + + + | Address | Unknown | + + + | Phone | Unavailable | + + + Support + + + + + | Name | Relationship | Address | Phone | + + + + + | Andrez Lcuas | ECON | NA | | | | | [place] | | + + + + + | Candis Beyer | ECON | NA | | | | | [place] | | + + + + + Care Team Providers + +------+ + | Care Blender Conveyor Operator Name | Role | Phone | [...] [address] | | | | | [place], [place] | [address] [facility] | | | | | [address] | [place] [address] | | | | | [phone] | [phone] | | | | | | | [...] [address] | | | | | | [place] | | | | | | [place] [address] | | | | | | [phone] | | | | | | | | +--------+---------+ + + + documented as of this encounter Visit Diagnoses Not on filedocumented in this encounter"
--- OUTSIDE RECORDS SUMMARY | ~2019-02-24 | XMS | Encounter Summary ---
Demographics + + + | Address | [address] | | | [place] [address] | + + + | Home Phone | | + + + | Preferred Language | Unknown | + + + | Marital Status | | + + + | Orthodox Affiliation | 1076 | + + + | Race | Unknown | + + + | Ethnic Group | Unknown | + + + Author + + + | Author | [facility] | | | and [place] | + + + | Organization | [facility] | | | and [place] [...] Team Providers + +------+ + | Care Field Sales Representative Name | Role | Phone | + +------+ + PCP | Unavailable | + +------+ + Encounter Details +--------+ + + + + | Date | Type | Department | Care Team | Description | +--------+ + + + + | 07/20/ | Hospital | [facility] | | | | 2007 - | Encounter | MED [facility] | | | | | | CENTER [address] | | | | 07/22/ | | [place] | | | | 2007 | | [address] | | | | | | [phone] | | | +--------+ + + + [...] | | | | | | [place] [address] | | | | | | [phone] | | | | | | | | +--------+---------+ + + + documented as of this encounter Visit Diagnoses Not on filedocumented in this encounter"
--- OUTSIDE RECORDS SUMMARY | ~2019-02-24 | XMS | Encounter Summary ---
Demographics + + + | Address | [address] | | | [place] [address] | + + + | Home Phone [...] Organization | [facility] | | | and [...] Team Providers + +------+ + | Care Card Dealer Name | Role | Phone | + [...] Description | +--------+--------+ + + + | 05/04/ | Refill | [facility] | Jorje Rutledge | Medication Refill | | 2016 | | [address] | [address] | | | | | [place], [place] | [address] [facility] | | | | | [address] | [place] [address] | | | | | [phone] | [phone] | | | | | | | [...] | | | | | [place] [address] | | | | | | [phone] | | | | | | | | +--------+---------+ + + + documented as of this encounter Visit Diagnoses Not on filedocumented in this encounter"
--- OUTSIDE RECORDS SUMMARY | ~2019-02-24 | XMS | Encounter Summary ---
Demographics + + + | Address | [address] | | | [place] [address] | + + + | Home Phone | | + + + | Preferred Language | Unknown | + + + | Marital Status | | + + + | Yazdanism Affiliation | 1076 | + + + | Race | Unknown | + + + | Ethnic Group | Unknown | + + + Author + + + | Author | [facility] | | | and [place] | + + + | Organization | [facility] | | | and [place] [...] Team Providers + +------+ + | Care Superintendent Terminal Name | Role | Phone | + +------+ + PCP | Unavailable | + +------+ + Encounter Details +--------+ + + + + | Date | Type | Department | Care Team | Description | +--------+ + + + + | 07/23/ | Hospital | [facility] | | | | 2007 - | Encounter | MED CTR CANC[facility] | | | | | | CENTER [address] | | | | 08/21/ | | [place] | | | | 2007 | | [address] | | | | | | [phone] | | | +--------+ + + + [...] | | | | | [place] [address] | | | | | | [phone] | | | | | | | | +--------+---------+ + + + documented as of this encounter Visit Diagnoses Not on filedocumented in this encounter"
--- OUTSIDE RECORDS SUMMARY | ~2019-02-24 | XMS | Encounter Summary ---
Demographics + + + | Address | [address] | | | [place] [address] | + + + | Home Phone | | + + + | Preferred Language | Unknown | + + + | Marital Status | | + + + | Rastafarian Affiliation | 1076 | + + + | Race | Unknown | + + + | Ethnic Group | Unknown | + + + Author + + + | Author | [facility] | | | and [place] | + + + | Organization | [facility] | | | and [...] Team Providers + +------+ + | Care Chinchilla Machine Operator Name | Role | Phone [...] Segura MD | | | | | [place], | | | | | | [place] [address] | | | | | | [phone] | | | +--------+ + + + [...] | | | | | [place] [address] | | | | | | [phone] | | | | | | | | +--------+---------+ + + + documented as of this encounter Visit Diagnoses Not on filedocumented in this encounter"
--- OUTSIDE RECORDS SUMMARY | ~2019-02-24 | XMS | Encounter Summary ---
Demographics + + + | Address | [address] | | | [place] [address] | + + + | Home Phone | | + + + | Preferred Language | Unknown | + + + | Marital Status | | + + + | Uatsdin Affiliation | 1076 | + + + | Race | Unknown | + + + | Ethnic Group | Unknown | + + + Author + + + | Author | [facility] | | | and [place] | + + + | Organization | [facility] | | | and [...] Team Providers + +------+ + | Care Od Grinder Operator Name | Role | Phone | + +------+ + PCP | Unavailable | + +------+ + Encounter Details +--------+ + + + + | Date | Type | Department | Care Team | Description | +--------+ + + + + | 06/24/ Hospital | [facility] | [place], | | | 2012 | Encounter | MED CTR XRAY [address] | Becca Segura MD | | | | | [place] | | | | | | [place] [address] | | | | | | [phone] | | | +--------+ + + + [...] +---------+ + + | tamsulosin | Take 0.4 mg by mouth | | 0 | 11/05/19 | | | (FLOMAX) 0.4 mg CAPS | Daily. | | | 12 | 3 | + + + +---------+ [...] | | | | | [place] [address] | | | | | | [phone] | | | | | | | | +--------+---------+ + + + documented as of this encounter Visit Diagnoses Not on filedocumented in this encounter"
--- OUTSIDE RECORDS SUMMARY | ~2019-02-24 | XMS | Encounter Summary ---
Demographics + + + | Address | [address] | | | [place] [address] | + + + | Home Phone | | + + + | Preferred Language | Unknown | + + + | Marital Status | | + + + | Orthodox Affiliation | 1076 | + + + | Race | Unknown | + + + | Ethnic Group | Unknown | + + + Author + + + | Author | [facility] | | | and [place] | + + + | Organization | [facility] | | | and [place] [...] Team Providers + +------+ + | Care Sand Plant Attendant Name | Role | Phone | + +------+ + PCP | Unavailable | + +------+ + Encounter Details +--------+ + + + + | Date | Type | Department | Care Team | Description | +--------+ + + + + | 09/22/ | Hospital | [facility] | | | | 2007 - | Encounter | MED CTR CANC[facility] | | | | | | CENTER [address] | | | | 10/22/ | | [place] | | | | 2007 | | [address] | | | | | | [phone] | | | +--------+ + + + [...] | | | | | | [place] [address] | | | | | | [phone] | | | | | | | | +--------+---------+ + + + documented as of this encounter Visit Diagnoses Not on filedocumented in this encounter"
--- OUTSIDE RECORDS SUMMARY | ~2019-02-24 | XMS | Clinical Summary ---
Demographics + + + | Address | [address] | | | [place] [address] | + + + | Home Phone | | + + + | Preferred Language | Unknown | + + + | Marital Status | | + + + | Yazdanism Affiliation | 1076 | + + + | Race | Unknown | + + + | Ethnic Group | Unknown | + + + Author + + + | Author | [facility] | | | and [place] | + + + | Organization | [facility] | | | and [...] Team Providers + +------+ + | Care Pairer Odds Name | Role | Phone | + +------+ + | Jason Read | PCP | | | MD | | | + +------+ + Allergies + + + + + + | Active Allergy | Reactions | Severity | Noted | Comments | | | | | Date | | + + + + + + | Penicillins | | | 10/13/19 | | | | | | 17 | | + + + + + + Medications + + + +---------+------+------+-------+ | Medication | Sig | Dispensed | Refills | Star | End | Statu | | | | | | t | Date | s | | | | | | Date | | | + + + +---------+------+------+-------+ | amLODIPine | Take one tablet by | | 0 | 10/1 | | Activ | | (NORVASC) 5 mg | mouth once daily. | | | 0/20 | | e | | tablet | | | | 12 | | | + + + +---------+------+------+-------+ +---+ + | | Additional | | | informationPatient | | | not taking. Reported | | | on 12/14/2018 9:21 | | | AM | +---+ + + + + +----+------+---+-------+ | oxygen | Inhale 2 L into the | | 0 | | | Activ | | | lungs nightly. | | | | | e | + + + +----+------+---+-------+ | venlafaxine | Take 37.5 mg by | | 0 | | | Activ | | (EFFEXOR XR) 37.5 mg | mouth Daily. | | | | | e | | 24 hr capsule | | | | | | | + + + +----+------+---+-------+ | Respiratory | Please provide an O2 | 1 each | 0 | 05/0 | | Activ | | Therapy Supplies | concentrator while | | | 5/20 | | e | | MISCIndications: | Diego is visiting for | | | 14 | | | | Chronic airway | nocturnal O2 at 2 | | | | | | | obstruction, not | l/m. Dx: COPD, | | | | | | | elsewhere | Nocturnal hypoxemia | | | | | | | classified, | | | | | | | | Hypoxemia | | | | | | | + + + +----+------+---+-------+ | zolpidem (AMBIEN) | Take 5 mg by mouth | | 0 | | | Activ | | 5 mg tablet | nightly as needed. | | | | | e | | | SLEEP | | | | | | + + + +----+------+---+-------+ | albuterol (PROAIR | Inhale 2 puffs into | 1 | 11 | 10/2 | | Activ | | HFA) 90 mcg/puff | the lungs every 6 | Inhaler | | 7/20 | | e | | inhaler | hours as needed for | | | 14 | | | | | Wheezing or | | | | | | | | Shortness of Breath. | | | | | | + + + +----+------+---+-------+ +---+ + | | Additional | | | informationPatient | | | not taking. Reported | | | on 12/14/2018 9:21 | | | AM | +---+ + + + + +----+------+------+-------+ | | Take 1 tablet by | | 0 | | | Activ | | HYDROcodone-acetamin | mouth every 6 hours | | | | | e | | ophen (NORCO) 10-325 | as needed. | | | | | | | mg per tablet | | | | | | | + + + +----+------+------+-------+ | | Inhale 1 puff into | 1 each | 11 | 10/1 | | Activ | | fluticasone-vilanter | the lungs Daily. | | | 9/20 | | e | | ol (BREO ELLIPTA) | | | | 15 | | | | 100-25 mcg/puff | | | | | | | | inhaler | | | | | | | + + + +----+------+------+-------+ | ketoconazole | | | 1 | 09/1 | | Activ | | (NIZORAL) 2% shampoo | | | | 4/20 | | e | | | | | | 16 | | | + + + +----+------+------+-------+ | Calcium | Take 1 tablet by | | 0 | | | Activ | | Carb-Cholecalciferol | mouth Daily. Taking | | | | | e | | (CALCIUM-VITAMIN | 800 IU vitamin d | | | | | | | D3) 600-400 MG-UNIT | | | | | | | | TABS | | | | | | | + + + +----+------+------+-------+ | pantoprazole | Take 1 tablet by | | 0 | 04/1 | | Activ | | (PROTONIX) 40 mg | mouth Daily. | | | 3/20 | | e | | tablet | | | | 17 | | | + + + +----+------+------+-------+ | fluocinonide | | | 0 | 07/0 | | Activ | | (LIDEX) 0.05 % | | | | 20 | | e | | external solution | | | | 17 | | | + + + +----+------+------+-------+ | ferrous sulfate | Take 325 mg by mouth | | 0 | | | Activ | | 325 mg tablet | daily (with | | | | | e | | | breakfast). | | | | | | + + + +----+------+------+-------+ | leuprolide (LUPRON | Inject 30 mg into | | 0 | | | Activ | | DEPOT, 4-MONTH,) 30 | the muscle Every 4 | | | | | e | | mg injection | months. | | | | | | + + + +----+------+------+-------+ | Multiple | I-Caps | | 0 | | | Activ | | Vitamins-Minerals | | | | | | e | | (ICAPS PO) | | | | | | | + + + +----+------+------+-------+ | albuterol 2.5 mg/3 | Take 2.5 mg by | | 0 | | | Activ | | mL nebulizer | nebulization 2 times | | | | | e | | solution | daily. | | | | | | + + + +----+------+------+-------+ | OXYGEN-HELIUM IN | Inhale 2 L into the | | 0 | | | Activ | | | lungs. | | | | | e | + + + +----+------+------+-------+ | UNABLE TO FIND | by Nasal route. | | 0 | 04/2 | | Activ | | | | | | 3/20 | | e | | | | | | 13 | | | + + + +----+------+------+-------+ | ascorbic acid | Take by mouth. | | 0 | | | Activ | | (VITAMIN C) 250 MG | | | | | | e | | tablet | | | | | | | + + + +----+------+------+-------+ | fluticasone | Inhale into the | | 0 | | | Activ | | (FLOVENT HFA) 220 | lungs. | | | | | e | | mcg/puff inhaler | | | | | | | + + + +----+------+------+-------+ | ipratropium | Inhale 2 puffs into | | 0 | 05/1 | | Activ | | (ATROVENT HFA) 17 | the lungs. | | | 0/20 | | e | | mcg/puff inhaler | | | | 16 | | | + + + +----+------+------+-------+ | loratadine | Take by mouth. | | 0 | | | Activ | | (CLARITIN) 10 mg | | | | | | e | | tablet | | | | | | | + + + +----+------+------+-------+ | magnesium | Take by mouth. | | 0 | | | Activ | | hydroxide (MILK OF | | | | | | e | | MAGNESIA) 400 mg/5 | | | | | | | | mL suspension | | | | | | | + + + +----+------+------+-------+ | oxyCODONE | Take by mouth. | | 0 | 04/2 | | Activ | | (ROXICODONE) 5 mg | | | | 3/20 | | e | | tablet | | | | 13 | | | + + + +----+------+------+-------+ | oxymetazoline (PX | Instill 2 Sprays | | 0 | 04/2 | | Activ | | NASAL SPRAY | into each nostril | | | 3/20 | | e | | MOISTURIZING) 0.05% | every six hours as | | | 13 | | | | nasal spray | needed (Epistaxis). | | | | | | | | Use for only 3 days. | | | | | | + + + +----+------+------+-------+ | polyethylene | Take by mouth. | | 0 | | | Activ | | glycol (MIRALAX) | | | | | | e | | powder | | | | | | | + + + +----+------+------+-------+ | amLODIPine | | | 0 | 10/0 | | Activ | | (NORVASC) 10 MG | | | | 9/20 | | e | | tablet | | | | 19 | | | + + + +----+------+------+-------+ | benzonatate | | | 0 | 05/0 | | Activ | | (TESSALON) 100 mg | | | | 1/20 | | e | | capsule | | | | 19 | | | + + + +----+------+------+-------+ | tamsulosin | TAKE TWO CAPSULES BY | 60 | 11 | 12/0 | | Activ | | (FLOMAX) 0.4 mg CAPS | MOUTH EVERY DAY | capsule | | 9/20 | | e | | | NEEDED | | | 19 | | | + + + +----+------+------+-------+ | tamsulosin | TAKE TWO CAPSULES BY | 60 | 11 | 11/0 | 12/0 | Disco | | (FLOMAX) 0.4 mg CAPS | MOUTH EVERY DAY | capsule | | 6/20 | 6/20 | ntinu | | | NEEDED | | | 18 | 19 | ed | | | | | | | | (Reor | | | | | | | | [place]) | + + + +----+------+------+-------+ Active Problems + + + | Problem | Noted Date | + + + | Gastrointestinal hemorrhage with melena | 04/22/2017 | + + + | Chronic respiratory failure with hypoxia | 12/03/2016 | + + + | History of gastroesophageal reflux (GERD) | 12/03/2016 | + + + | History of tobacco use, presenting hazards to health | 12/03/2016 | + + + | History of gastric ulcer | 03/12/2016 | + + + | Preventative health care | 03/15/2015 | + + + + + | Overview: PSA Date Results | | 12/12/18 0.681 [facility] | | 11/25/17 7.17 [facility] | | 08/26/17 4.44 | | 05/28/17 2.56 | | 04/28/17 1.49 | | 02/27/17 1.27 | | 12/28/15 0.247 | | 06/29/15 0.217 | | 04/04/15 3.39 | | 01/04/2015 5.65 | | 09/25/14 4.57 | | 11/2013 0.128 | | 07/2013 5.38 | | 10/2012 2.5 | | 08/2011 0.0172 | | 04/2011 1.32 | | 06/2007 13.9 | + + + + + | Prostate cancer | 03/06/2015 | + + + + + | Overview: S/p XRT [facility] with Dr. Garza | | [place] | | | | PSA 0.203 10/24/16 | + + + + + | SVT (supraventricular tachycardia) | 03/13/2014 | + + + | Nocturnal hypoxemia due to emphysema | 01/26/2013 | + + + | Anemia | 06/10/2012 | + + + | Epistaxis | 06/10/2012 | + + + | COPD (chronic obstructive pulmonary disease) | | + + + | Benign prostatic hypertrophy | | + + + | Osteoarthritis | | + + + | Heartburn | | + + + | Pulmonary nodules | | + + + + + | Overview: Stable x [address] | + + + +---+ | Heart murmur | | + +---+ + + | Overview: DR MARIAA OLIVERA | + + + +---+ | Hypertension | | + +---+ Resolved Problems + + + + | Problem | Noted | Resolved | | | Date | Date | + + + + | Abnormal CT scan | 01/27/20 | | | | 13 | 5 | + + + + | Weight loss, abnormal | | | | | | 3 | + + + + | Malaise | | | | | | 3 | + + + + | Cataracts, bilateral | | | | | | 4 | + + + + Encounters +--------+---------+ + + + | Date | Type | Specialty | Care Team | Description | +--------+---------+ + + + | 01/27/ | Refill | Urology | Jorje Rutledge | Medication Refill | | 2019 | | | MD Tim | | +--------+---------+ + + + | 12/14/ | Office | Urology | Jorje Rutledge | Prostate cancer | | 2018 | Visit | | MD Tim | ([facility]) (Primary Dx); | | | | | | Preventative health | | | | | | care | +--------+---------+ + + + from Last 3 Months Immunizations + + + + | Name | Administration Dates | Next Due | + + + + | INFLUENZA 67 Y OR >, | 11/10/2014 | | | TRIVALENT HIGH-DOSE | | | + + + + | INFLUENZA PF 20 Y OR | 11/18/2013, 12/11/2012 | | | >,TRIVALENT | | | | RECOMBINANT | | | + + + + | PNEUMOCOCCAL | 03/13/2014 | | | CONJUGATE 13-VALENT | | | | (PCV13) | | | + + + + | PNEUMOCOCCAL | 10/21/2010 | | | POLYSACCHARIDE | | | | 23-VALENT (PPSV23) | | | + + + + | ZOSTER, 1 DOSE | 04/22/2013 | | | (ZOSTAVAX) | | | + + + + Family History + + +------+ + | Medical History | Relation | Name | Comments | + + +------+ + | Hypertension | Daughter | | | + + +------+ + | Other (see comment) | Daughter | | DVT | + + +------+ + | Alcohol abuse | Father | | | + + +------+ + | Other (see comment) | Father | | Gout | + + +------+ + | Stroke | Father | | | + + +------+ + | Stroke | Mother | | | + + +------+ + | Other (see comment) | Other | | Family History of Cerebral artery aneurysm | | | | | | + + +------+ + | Hypertension | Son | | | + + +------+ + | Prostate cancer | Neg Hx | | | + + +------+ + + +------+ + + | Relation | Name | Status | Comments | + +------+ + + | Daughter | | | | + +------+ + + | Daughter | | | | + +------+ + + | Father | | | | | | | (Age | | | | | 60's) | | + +------+ + + | Mother | | | | | | | (Age | | | | | 60's) | | + +------+ + + | Other | | | | + +------+ + + | Son | | | | + +------+ + + Social History + + + [...] | Tobacco Cessation: Counseling Given: No | | Comments: quit pipe 2011 | + [...] recent travel history available. | + + Last Filed Vital Signs + + + + + | Vital Sign | Reading | Time Taken | Comments | + + + + + | Blood Pressure | 120/60 | 12/14/2018 9:23 AM | | | | | PDT | | + + + + + | Pulse | 64 | 12/14/2018 9:23 AM | | | | | PDT | | + + + + + | Temperature | 35.9 C (96.6 F) | 05/03/2017 1:31 PM | | | | | PDT | | + + + + + | Respiratory Rate | 17 | 12/14/2018 9:23 AM | | | | | PDT | | + + + + + | Oxygen Saturation | 95% | 04/21/2017 3:38 PM | | | | | PST | | + + + + + | Inhaled Oxygen | - | - | | | Concentration | | | | + + + + + | Weight | 73.3 kg (161 lb 9.6 | 12/14/2018 9:23 AM | | | | oz) | PDT | | + + + + + | Height | 177.8 cm (5' 10") | 12/14/2018 9:23 AM | | | | | PDT | | + + + + + | Body Mass Index | 23.19 | 12/14/2018 9:23 AM | | | | | PDT | | + + + + + Plan of Treatment +--------+---------+ + + + | Date | Type | Specialty | Care Team | Description | +--------+---------+ + + + | 03/13/ | Office | Urology | Jorje Rutledge | | | 2020 | Visit | | MD [address] | | | | | | [address] | | | | | | [place] [address] | | | | | | [phone] | | | | | | | | +--------+---------+ + + + + + + + + | Health Maintenance | Due Date | Last Done | Comments | + + + + + | Vaccine: | | | | | Dtap/Tdap/Td (1 - | 9 | | | | Tdap) | | | | + + + + + | Vaccine: Zoster (2 | | 05/18/2013, 04/22/2013 | | | of 3) | 4 | | | + + + + + | Adult Annual | | | | | Wellness Visit | 5 | | | + + + + + | Statin Therapy | | | | | (optimal intensity) | 5 | | | + + + + + | Vaccine: | Completed | 03/13/2014, 10/21/2010 | | | Pneumococcal 65+ | | | | + + + + + | Vaccine: Influenza | Completed | 11/21/2018, 11/09/2017, | | | | | 12/11/2016, Additional history | | | | | exists | | + + + + + Procedures + +--------+ + + + | Procedure Name | Priori | Date/Time | Associated Diagnosis | Comments | | | ty | | | | + +--------+ + + + | POCT URINALYSIS, | Routin | 12/14/2018 | Prostate cancer | Results for this | | AUTO WITH CONF | e | 9:32 AM | (HCC) | procedure are in the | | | | PDT | | results section. | + +--------+ + + + | LABS - EXTERNAL SCAN | | 12/14/2018 | | Results for this | | | | 12:00 AM | | procedure are in the | | | | PDT | | results section. | + +--------+ + + + from Last 3 Months Results POCT Urinalysis (12/14/2018 9:32 AM PDT) + + + + + [...] 1.001 - 1.030 | | | | [place], | | | | | | UA, [...] + + + | Ictotest | | | | | + + + + + + | Remark | | | | | + + + + + + + + | Specimen | + + | Urine | + + LABS - EXTERNAL SCAN (12/14/2018 12:00 AM PDT) + + + | Narrative | Performed At | + + + | Ordered by an | | | unspecified provider. | | + + + from Last 3 Months Insurance + +--------+ +--------+ +---------+--------+ | Payer | Benefi | Subscriber | Effect | Phone | Address | Type | | | t Plan | ID | nathalia | | | | | | / | | Dates | | | | | | Group | | | | | | + +--------+ +--------+ +---------+--------+ | MEDICARE | MEDICA | [id number] | | [phone] | | Medica | | | RE | | 013-Pr | 5 | | re | | | PART A | | esent | | | | | | AND B | | | | | | + +--------+ +--------+ +---------+--------+ | [employer] [place] | [place] | [id number] | | [phone] | | Indemn | | | OF | | 018-Pr | 0 | | ity | | | [place] | | esent | | | | | | MDCR | | | | | | | | SUPPL | | | | | | + +--------+ +--------+ +---------+--------+ + +--------+ +--------+ + + | Guarantor Name | Accoun | Relation to | Date | Phone | Billing Address | | | t Type | Patient | of | | | | | | | | | | + +--------+ +--------+ + + | Diego Lucas | Person | Self [birth year] | | | | al/Fam | | 1936 | [phone] | [place] [address] | | | leslie | | | 3 (Home) | | + +--------+ +--------+ + + Advance Directives + + + + + | Type | Date Recorded | Patient | Explanation | | | | [employer] | | + + + + + | Power of | | | | | Lead Scientist | | | | + + + + + | Advance | 03/19/2014 5:21 | | POLST | | Directive | AM | | | + + + + +
--- OUTSIDE RECORDS SUMMARY | ~2019-02-24 | XMS | Encounter Summary ---
Demographics + + + | Address | [address] | | | [place] [address] | + + + | Home Phone | | + + + | Preferred Language | Unknown | + + + | Marital Status | | + + + | Jehovah'S Witness Affiliation | 1076 | + + + | Race | Unknown | + + + | Ethnic Group | Unknown | + + + Author + + + | Author | [facility] | | | and [place] | + + + | Organization | [facility] [...] Team Providers + +------+ + | Care Lean Manufacturing Coordinator Name | Role | Phone | + [...] Description | +--------+---------+ + + + | 07/01/ | Office | [facility] | Jorje Rutledge | Prostate cancer | | 2016 | Visit | [address] | MD [address] | ([facility]) (Primary Dx); | | | | [place], [place] | [facility] | Preventative health | | | | [address] | [place] [address] | care | | | | [phone] | [phone] | | | | | | | [...] + + + | Blood Pressure | 138/79 | 07/02/2015 7:55 AM | | | | | PDT | | + + + + + | Pulse | 70 | 07/02/2015 7:55 AM | | | | | PDT | | + + + + + | Temperature | - | - | | + + + + + | Respiratory Rate | 16 | 07/02/2015 7:55 AM | | | | | PDT | | + + + + + | Oxygen Saturation | - | - | | + + + + + | Inhaled Oxygen | - | - | | | Concentration | | | | + + + + + | Weight | 77.1 kg (170 lb) | 07/02/2015 7:55 AM | | | | | PDT | | + + + + + | Height | 177.8 cm (5' 10") | 07/02/2015 7:55 AM | | | | | PDT | | + + + + + | Body Mass Index | 24.39 | 07/02/2015 7:55 AM | | | | | PDT | | + + + + + documented in this encounter Progress Notes Chandana Robins CMA - 07/02/2015 8:37 AM PDT Administrations This Visit leuprolide (LUPRON DEPOT-6 MONTH) injection 45 mg Admin Date Action Dose Route Administered By 07/02/2015 Given 45 mg Intramuscular Chandana Robins CMA Jorje Whitfield MD - 07/02/2015 7:53 AM PDT Diego is a 79 y.o. male patient of Parviz Brar being seen today for follow-up Prostate cancer. He is a very pleasant gentleman who was a patient of Dr. Mercedez Barkley in [place] for many years. 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 His PSA at that time was 13.9. He underwent radiation ther apy with Dr. Garza with post radiation adjuvant Lupron administration for approximately 1.5 years. He apparently did well and was not seen by Dr. Barkley until April 2011 with a PSA o f 1.32. Previously his PSA soy was 0.01 post radiation. He had a PSA doubling time on the order of [address] Barkley waited until his PSA was 5.38 in July 2013. At that t melanie she gave him a 4 month Lupron injection, and also started him on Flomax 1-2 at night. He seemed to improve his bladder outlet symptoms. In November 2014 his PSA had decreased to 0.128, but returned to 4.57 in January 2015. Since Dr. Barkley did not have another 4 wed Lupron to give him, she gave him a 1 month Lupron, and he was seen in March 2015 here, and had a 3 month Lupron given at that time. Symptomatically, he is not having any pain, bony or otherwise. He was started on tamsulosin 0.4 mg twice a day 3 months ago, and symptoms have not changed appreciably since that time. His AUA symptom score is 19 which is comparable to his previo us score of 20 in March 2015. His IPSS score is 19, his urine is clear, and his post void residual is 115 cc today. He w ould like to forego a cystoscopy today, as he feels that he is doing reasonably well. His P SA is now 0.217. Past Medical History He has a past medical history of Peptic ulcer disease; Benign prostatic hypertrophy; Osteoa rthritis; Heartburn; Pulmonary nodules; Shoulder fracture (02/2012); Foot fracture (02/2012); SVT (supraventricular tachycardia) (01/2014); Depression; Prostate cancer ([facility]) (2007); COPD (chronic obstructive pulmonary disease) (); Pneumonia (05/2012); Heart murmur; Cataracts, bilateral; Kidney stone (2004); Hypertension; TIA (transient ischemic attack); Migraines; S upplemental oxygen dependent; C. difficile enteritis (2012); Lumbar disc herniation; GI blee d (01/2015); Diverticulosis (01/2015); Hiatal hernia (01/2015); and Gastritis (01/2015). Past Surgical History He has past surgical history that includes Pancreas surgery; Appendectomy; cyst removal; na clifford hemorrhage control (05/2012); Cataract removal with implant (11/2011); Cataract Removal ( 03/2013); Lumbar spine surgery (1987, 1989); Angiogram (EARLY 1979); ablation of dysrhythmic focus (03/19/2014); and Esophagus dilation (02/06/2015). Family History: His family history includes Alcohol abuse in his father; Hypertension in his daughter and s on; Other (see comment) in his daughter and father; Stroke in his father and mother. There i s no history of Prostate cancer. Social History: He reports that he quit smoking about 5 years ago. His smoking use included Cigarettes and Pipe. He has a 6 pack-year smoking history. He has never used smokeless tobacco. He reports that he does not drink alcohol or use illicit drugs. Allergies Allergen Reactions Adhesive & Tape Paper tapes- BLISTERS Medications: Outpatient Encounter Prescriptions as of 07/02/2015 Medication Sig Dispense Refill acetaminophen (TYLENOL) 325 [...] tablet Take 250 mg by mouth Daily. ATROVENT HFA 17 MCG/ACT inhaler INHALE TWO PUFFS BY MOUTH INTO THE LUNGS FOUR TIMES LATRELL LY 1 Inhaler 5 cholecalciferol (VITAMIN D-3) 1,000 units capsule Take 1,000 Units by mouth nightly. Copper Gluconate (COPPER CAPS PO) Take 1 mg by mouth. CVS LUTEIN PO Take by mouth. Fe Bisgly-Vit C-Vit B12-FA (GENTLE IRON) 28-60-0.008-0.4 MG CAPS Take 1 capsule by mout h Daily. ferrous sulfate 325 mg tablet Take one tablet daily 4 fluticasone-vilanterol (BREO ELLIPTA) 100-25 mcg/puff inhaler Inhale 1 puff into the justice ngs Daily. 1 each 11 HYDROcodone-acetaminophen (NORCO) 10-325 mg per tablet Take 1 tablet by mouth every 6 h ours as needed. omeprazole (PRILOSEC OTC) 20 mg tablet Take 20 mg by mouth Daily. oxygen Inhale 2 L into the lungs nightly. Polyethylene Glycol 3350 (MIRALAX PO) Take by mouth. Respiratory Therapy Supplies [facility] [place] Please provide an O2 concentrator while Diego is visiti for nocturnal O2 at 2 l/m. Dx: COPD, Nocturnal hypoxemia 1 each 0 tamsulosin (FLOMAX) 0.4 mg CAPS Take 2 capsules by mouth nightly. OCCASIONALLY TAKES 2 TABS NEEDED 60 capsule 11 venlafaxine (EFFEXOR XR) 37.5 mg 24 hr capsule Take 37.5 mg by mouth Daily. zolpidem (AMBIEN) 5 mg tablet Take 5 mg by mouth nightly as needed. SLEEP No facility-administered encounter medications on file as of 07/02/2015. AUA BPH SYMPTOM SCORE Not at all [...] 2 [] 3 [] 4 [] 5 FREQUENCY Over the past month, how often have you had to urinate again less than 2 hours a fter you finished urinating? [] 0 [] 1 [] 2 [x] 3 [] 4 [] 5 INTERMITTENCY Over the past month, how often have you found you stopped and started again several times when you urinated? [] 0 [] 1 [] 2 [] 3 [x] 4 [] 5 URGE TO URINATE Over [...] in the morning? [] 0 [] 1 [] 2 [x] 3 [] 4 [] 5 Symptom Score: Mild 1-7, Moderate 8-19, Severe 20-35 TOTAL: 19 BOTHER SCORE DUE TO URINARY SYMPTOMS Delighted Pleased Mostly Satisfied Mixed Mostly dissatisfied Unhappy Terrible BOTHERSOMENESS OF URINARY SYMPTOMS How would you feel if you had to live with your urinary condition the way it is now, no better, no worse, for the rest of your life? [] 0 [] 1 [x] 2 [] 3 [] 4 [] 5 [] 6 PHYSICAL EXAM Vitals: BP 138/79 mmHg | Pulse 70 | Resp 16 | Ht 1.778 m (5' 10") | Wt 77.111 kg (170 lb) | BMI 24.39 kg/m2 General: Awake, alert, in no acute distress. Speech is fluent. Appears to be stated age. Lungs: Normal respiratory effort Abdomen: Soft, nontender Extremities: Non-edematous. Neuro: Awake, alert, oriented x3. Normal station and gait. Psychiatric: Mood and affect are normal. Normal judgment. Skin: Warm and dry, no erythematous rash. DIAGNOSTIC DATA: PSA160.217 163.39 01/04/20155.65 154.57 .128 .38 .5 .0172 .32 .9 Urine is clear today Postvoid residual by bladder scan was 115 cc today IMPRESSION: Stage T2c to T3 Gabino 4+3 = 7 adenocarcinoma the prostate, status post radia tion in 2007 Post radiation PSA recurrence with intermittent hormone ablation since 2011 PLAN: Mr. Lucas was given Lupron 45 mg IM today. This should last for the next 6 month s. We will be obtaining updated lab tests in late November to early December 2015, and I wou ld like to see him back in the office in December 2015. If his urinary symptoms deteriorate in any way, I told him I be available to perform a cystoscopy here in the office. We will check his symptoms and residual on next visit. In view of his hormonal ablation, he should be on vitamin D3, calcium, and biphosphonates e mpirically. We will discuss obtaining a DEXA scan on his next visit. Diego is instructed to resume his usual and customary care with his primary care provider. This document was generated in part using voice recognition software. Although I have atte mpted to edit the content, I have not thoroughly proofread this note, and project accountant erro rs may occur. documented in th is encounter Plan of Treatment +--------+---------+ + + + | Date | Type | Specialty | Care Team | Description | +--------+---------+ + + + | 03/13/ | Office | Urology | Jorje Rutledge | | | 2020 | Visit | | MD [address] | | | | | | [address] | | | | | | [place] [address] | | | | | | [phone] | | | | | | | | +--------+---------+ + + + + +------+--------+ + + | Name | Type | Priori | Associated Diagnoses | Order Schedule | | | | ty | | | + +------+--------+ + + | Basic Metabolic | Lab | Routin | Prostate cancer | Expected: 12/16/2015 | | Panel | | e | (HCC) | (Approximate), | | | | | | Expires: 07/02/2016 | + +------+--------+ + + | PSA, Diagnostic | Lab | Routin | Prostate cancer | Expected: 12/16/2015 | | | | e | (HCC) | (Approximate), | | | | | | Expires: 07/02/2016 | + +------+--------+ + + | Testosterone, Total | Lab | Routin | Prostate cancer | Expected: 12/16/2015 | | | | e | ([facility]) | (Approximate), | | | | | | Expires: 07/01/2016 | + +------+--------+ + + documented as of this encounter Procedures + +--------+ + + + | Procedure Name | Priori | Date/Time | Associated Diagnosis | Comments | | | ty | | | | + +--------+ + + + | POCT URINALYSIS, | Routin | 07/02/2015 | Prostate cancer | Results for this | | AUTO WITH CONF | e | 8:03 AM | ([facility]) | procedure are in the | | | | PDT | | results section. | + +--------+ + + + | IMAGING REPORT - | | 07/02/2015 | | Results for this | | EXTERNAL SCAN | | 12:00 AM | | procedure are in the | | | | PDT | | results section. | + +--------+ + + + | LABS - EXTERNAL SCAN | | 06/29/2015 | | Results for this | | | | 12:00 AM | | procedure are in the | | | | PDT | | results section. | + +--------+ + + + documented in this encounter Results POCT Urinalysis Dipstick Automated (07/02/2015 8:03 AM PDT) + + + + + [...] + + + + | Specific | 1.020 | 1.001 - 1.030 | | | | [place], | | | | | | UA, POC | | | | | + + + + + + | Blood, UA, | Negative | Negative | | | | POC | | | | | + + + + + + | pH, UA, POC | 6.0 | 5.0, 6.0, 7.0, | | | [...] | Specimen | + + | Urine specimen | | (specimen) | + + IMAGING REPORT - EXTERNAL SCAN (07/02/2015 12:00 AM PDT) + + + | Narrative | Performed At | + + + | Ordered by an | | | unspecified provider. | | + + + LABS - EXTERNAL SCAN (06/29/2015 12:00 AM PDT) + + + | [...] | leuprolide (LUPRON DEPOT-6 | Given | 07/02/19 | 45 mg | | Glut-Lef | | MONTH) injection 45 mg 45 mg, | | 16 8:36 | | | t | | Intramuscular, ONCE, 07/02/15 | | AM PDT | | | | | at 0845, For 1 dose, | | | | | | | Chemotherapy: Use appropriate | | | | | | | handling precautions., | | | | | | + +--------+ +-------+------+ + +---+---+ | | | +---+---+ documented in this encounter
--- OUTSIDE RECORDS SUMMARY | ~2019-02-24 | XMS | Encounter Summary ---
Demographics + + + | Address | [address] | | | [place] [address] | + + + | Home Phone [...] | Organization | [facility] | | | and [place] [...] Team Providers + +------+ + | Care Appliance Technician Name | Role | Phone | + +------+ + | Parviz Brar DO | PCP | | + +------+ + Reason for Visit +---------+ + | Reason | Comments | +---------+ + | Results | | +---------+ + Encounter Details +--------+ + + + + | Date | Type | Department | Care Team | Description | +--------+ + + + + | 10/21/ | Telephone | [facility] [place] | Froylan Werner MD | Results | | 2017 | | GASTROENTEROLOGY | [address], [place] | | | | | [address] [place] | [address] [place], [place] | | | | | [address] [place], [place] | [address] | | | | | [address] | | | | | | [phone] | | | +--------+ + + + [...] | | | | | [place] [address] | | | | | | [phone] | | | | | | | | +--------+---------+ + + + documented as of this encounter Visit Diagnoses Not on filedocumented in this encounter"
--- OUTSIDE RECORDS SUMMARY | ~2019-02-24 | XMS | Encounter Summary ---
Demographics + + + | Address | [address] | | | [place] [address] | + + + | Home Phone | | + + + | Preferred Language | Unknown | + + + | Marital Status | | + + + | Worship Affiliation | 1076 | + + + | Race | Unknown | + + + | Ethnic Group | Unknown | + + + Author + + + | Author | [facility] | | | and [place] | + + + | Organization | [facility] | | | and [place] [...] + + + + + | Candis aHney ECON | NA | | | | | FILEMON LIND | | + + + + + Care Team Providers + +------+ + | Care Hospital Receiving Clerk Name | Role | Phone | + +------+ + | Parviz Brar DO | PCP | | + +------+ + Reason for Visit + + + | Reason | Comments | + + + | New Patient | | + + + | Prostate Cancer | | + + + Evaluate & Treat (Routine) +--------+ + + + + + | Status | Reason | Specialty | Diagnoses / | Referred By | Referred To | | | | | Procedures | Contact | Contact | +--------+ + + + + + | Closed | Specialty | Urology | Diagnoses | | [facility] | | | Services | | Prostate | Matthew, | Urology [address] | | | Required | | cancer (HCC) | Becca Segura, | [address] | | | | | | MD [address] | [place], | | | | | | [address] | [place] [address] | | | | | | [place], | Phone: | | | | | | [place] [address] | [phone] | | | | | | | Fax: | | | | | | | [phone] | +--------+ + + + + + Encounter Details +--------+---------+ + + + | Date | Type | Department | Care Team | Description | +--------+---------+ + + + | 04/03/ | Office | [facility] | Jorje Rutledge | Preventative health | | 2016 | Visit | [address] | [address] | care (Primary Dx); | | | | [place], [place] | [address] [facility] | Prostate cancer | | | | [address] | [place] [address] | ([facility]) | | | | [phone] | [phone] | | | | | | | [...] + + + | Blood Pressure | 127/75 | 04/03/2015 2:18 PM | | | | | PST | | + + + + + | Pulse | 84 | 04/03/2015 2:18 PM | | | | | PST | | + + + + + | Temperature | - | - | | + + + + + | Respiratory Rate | 16 | 04/03/2015 2:18 PM | | | | | PST | | + + + + + | Oxygen Saturation | - | - | | + + + + + | Inhaled Oxygen | - | - | | | Concentration | | | | + + + + + | Weight | 77.1 kg (170 lb) | 04/03/2015 2:18 PM | | | | | PST | | + + + + + | Height | 177.8 cm (5' 10") | 04/03/2015 2:18 PM | | | | | PST | | + + + + + | Body Mass Index | 24.39 | 04/03/2015 2:18 PM | | | | | PST | | + + + + + documented in this encounter Progress Notes Jorje Rutledge MD - 04/03/2015 2:19 PM PSTFormatting of this note might be differen t from the original. Diego is a 79 y.o. male patient of Parvzi Brar being seen today for Prostate cancer. Roberto Carlos rodriguez is a very pleasant gentleman who was a patient of Dr. Mercedez Barkley in [place] for many y ears. 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 His PSA at that time was 13.9. He underwent radiation therapy w jessica Garza with post radiation adjuvant Lupron administration for approximately 1.5 years . He apparently did well and was not seen by Dr. Barkley until April 2011 with a PSA of 1.32 . Previously his PSA soy was 0.01 post radiation. He had a PSA doubling time on the orde r of [address] Barkley waited until his PSA was 5.38 in July 2013. At that time she g ave him a 4 month Lupron injection, and also started him on Flomax 1-2 at night. He seemed to improve his bladder outlet symptoms. In November 2014 his PSA had decreased to 0.128, but returned to 4.57 in January 2015. Since Dr. Barkley did not have another 4 month Lupron to give him, she gave him a 1 month Lupron, and he is seen at this time. Symptomatically, he is not having any pain, bony or otherwise. He continues to have noctur ia 2 which seems to be improved with the tamsulosin at night. He has tried tapering the t amsulosin, but it just worsens his nocturia and decreases his stream. He does not have an u pdated PSA at this time. His last BUN and creatinine on 03/19/2014 was 16 and 0.94 respectiv bridget. His IPSS score is 20, his urine is clear, and his post void residual is less than 10 cc tod ay Old records from Dr. Barkley were reviewed today. Past Medical History He has a past medical history of Peptic ulcer disease; Benign prostatic hypertrophy; Osteoa rthritis; Heartburn; Pulmonary nodules; Shoulder fracture (02/2012); Foot fracture (02/2012); SVT (supraventricular tachycardia) (01/2014); Depression; Prostate cancer (HCC) (2007); COPD (chronic obstructive pulmonary disease) (); [...] in his daughter and s on; Other (See Comment) in his daughter and father; Stroke in [...] BLISTERS Medications: Outpatient Encounter Prescriptions as of 04/03/2015 Medication Sig Dispense Refill acetaminophen (TYLENOL) 325 [...] mouth every 6 h ours as needed. Leuprolide Acetate (LUPRON IJ) Inject as directed. omeprazole (PRILOSEC OTC) 20 mg tablet Take 20 mg by mouth Daily. oxygen Inhale 2 L into the lungs nightly. Polyethylene Glycol 3350 (MIRALAX PO) Take by mouth. Respiratory Therapy Supplies [facility] [...] facility-administered encounter medications on file as of 04/03/2015. REVIEW OF SYSTEMS: [] All Negative Constitutional Symptoms: []Fever []Chills []Headache []Change in appetite, weight, energy []Other: Neurological: []Tremors []Dizzy Spells []Numbness/Tingling []Seizures []Other: Endocrine: []Excessive thirst []Too hot/cold [x]Tired/Sluggish Gastrointestinal: [x]Abdominal pain []Nausea/vomiting [x]Indigestion/heartburn []Change in stool size or shap e or color []Pain with swallowing []Other: Cardiovascular: []Chest Pain []Rapid heart rate []High blood pressure []Other: Integumentary: []Skin rash []Boils []Persistent itch []Other: Musculoskeletal: [x]Neck Pain []Joint swelling/pain [x]Back pain []Bone pain []Other: Respiratory: []Wheezing []Frequent cough [x]Shortness of breath []Other: Hematologic/Lymphatic: []Swollen glands []Blood clotting problems [x]Prior blood transfusions []Other: Psychologic: Are you generally satisfied with your life? yes Do you feel severely depressed? no Have you considered suicide? no Other: Habits: Do you smoke? no [x] Yes [] No Patient advised to follow up with PCP regarding positive review of syste ms. HARDY BPH SYMPTOM SCORE Not at all Less [...] Mild 1-7, Moderate 8-19, Severe 20-35 TOTAL: 20 BOTHER SCORE DUE TO URINARY SYMPTOMS Delighted [...] 5 [] 6 PHYSICAL EXAM Vitals: BP 127/75 mmHg | Pulse 84 | Resp 16 | Ht 1.778 m (5' 10") | Wt 77.111 kg (170 lb) | BMI 24.39 kg/m2 General: Awake, alert, in no acute distress. Speech is fluent. Appears to be stated age. Abdomen: Soft, nontender, no hepatosplenomegaly. No masses. No guarding; benign. Bladder nondistended. No flank mass. No flank tenderness. Extremities: Non-edematous. Neuro: Awake, alert, oriented x3. Psychiatric: Mood and affect are normal. Normal judgment. Skin: Warm and dry, no erythematous rash. Groin: No lymphadenopathy. No hernia. Genitalia: No lesion. Normal in appearance. Rectal: No mass, normal sphincter tone. Prostate gland is palpably benign. Prostate gland is enlarged. Prostate gland volume is estimated at 20 gm. There is no prostatic indurat ion, nodularity, irregularity, or asymmetry. DIAGNOSTIC DATA: Postvoid residual by bladder scan was less than 10 cc today Urinalysis is clear PSA total was 3.39 on 04/04/15 Total testosterone was 248.8 on 04/04/15 IMPRESSION: Stage T2c to T3 Gabino 4+3 = 7 adenocarcinoma of the prostate, status post rad iation in 2007 Post radiation PSA recurrence with intermittent hormonal ablation since 2011 PLAN: Mr. Lucas was given Lupron 22.5 mg IM today. He was also instructed to obtain up dated PSA and testosterone levels today. I have also asked him to continue on his Flomax at night as needed. He will return in June 2015, with updated labs at that time. I've asked h im to call if his bladder obstructive symptoms get any worse, for cystoscopy here in the off ice. Diego is instructed to resume his usual and customary care with his primary care provider. This document was generated in part using voice recognition software. Although I have atte mpted to edit the content, I have not thoroughly proofread this note, and pot firer erro rs may occur. documented in th is encounter Plan of Treatment +--------+---------+ + + + | Date | Type | Specialty | Care Team | Description | +--------+---------+ + + + | 03/13/ | Office | Urology | Jorje Rutledge | | | 2019 | Visit | | [address] | | | | | | [address] | | | | | | [place] [address] | | | | | | [phone] | | | | | | | | +--------+---------+ + + + documented as of this encounter Visit Diagnoses + + | Diagnosis | + + | Preventative health care - Primary Routine general medical examination at a health | | care facility | + + | Prostate cancer (HCC) Malignant neoplasm of prostate | + + documented in this encounter Administered Medications + +--------+ +---------+------+ + | Medication Order | MAR | Action | Dose | Rate | Site | | | Action | Date | | | | + +--------+ +---------+------+ + | leuprolide (LUPRON DEPOT-3 | Given | 04/03/19 | 22.5 mg | | Glut-Lef | | MONTH) injection 22.5 mg 22.5 | | 16 4:01 | | | t | | mg, Intramuscular, ONCE, Wed | | PM PST | | | | | 04/03/15 at 1630, For 1 dose, | | | | | | | Chemotherapy: Use appropriate | | | | | | | handling precautions., | | | | | | + +--------+ +---------+------+ + +---+---+ | | | +---+---+ documented in this encounter
--- OUTSIDE RECORDS SUMMARY | ~2019-02-24 | XMS | Encounter Summary ---
Demographics + + + | Address | [address] | | | [place] [address] | + + + | Home Phone | | + + + | Preferred Language | Unknown | + + + | Marital Status | | + + + | Mormon Affiliation | 1076 | + + + | Race | Unknown | + + + | Ethnic Group | Unknown | + + + Author + + + | Author | [facility] | | | and [place] | + + + | Organization | [facility] | | | and [place] [...] Team Providers + +------+ + | Care Methods Specialist Engineer Name | Role | Phone | [...] + + | 11/29/ | Office | [facility] | Jorje Rutledge | Prostate cancer | | 2018 | Visit | [address] | [address] | ([facility]) (Primary Dx); | | | | [place] | [address] [facility] | Preventative health | | | | [address] | [place] [address] | care | | | | [phone] | [phone] | | | | | | | [...] fracture; COPD (chronic obstructive pulmonary dis ease) ([facility]); Depression; Dermatophytosis tinea capitis; Diverticulosis (01/2015); Essential hypertension; Foot fracture (02/2012); Gastritis (01/2015); GI bleed (01/2015); Heart murmur; Heartburn; Hiatal hernia (01/2015); History of rectal bleeding; Hypoxia; Insomnia; Iron def iciency anemia; Kidney stone (2004); Lumbar disc herniation; Migraines; Mood disorder ([facility]) of unknown (axis III) etiology; Nocturnal hypoxia; Osteoarthritis; Peptic ulcer disease; Pne umonia (05/2012); Prostate cancer ([facility]) (2007); Pulmonary nodules; Seborrheic dermatitis of s calp; Shoulder fracture (02/2012); Supplemental oxygen dependent; SVT (supraventricular tachy cardia) ([facility]) (01/2014); TIA (transient ischemic attack); and [...] by mouth Daily. Respiratory Therapy Supplies [facility] Please provide [...] 03/19/2014 PSA Date Results 11/25/17 7.17 [facility] 08/26/17 4.44 05/28/17 2.56 04/28/17 1.49 [...] This document was generated in part using [employer] voice recognition software. Although ever y effort is made to edit the content, science education professor errors may occur. Occasional wrong word or [...] | | | | | | [place] [address] | | | | | | [phone] | | | | | | | [...] 1.001 - 1.030 | | | | [place], | | | | | | [facility], [...] health care Routine general medical examination at [facility] | | facility | + [...]
--- OUTSIDE RECORDS SUMMARY | ~2019-02-24 | XMS | Encounter Summary ---
Demographics + + + | Address | [address] | | | [place] [address] | + + + | Home Phone [...] + | Organization | [facility] | | | and [place] [...] Team Providers + +------+ + | Care Household Chores Name | Role | Phone | + [...] + + | 11/17/ | Telephone | [facility] | Jorje Rutledge | Other (Labs needed | | 2017 | | [address] | [address] | prior to appt. ) | | | | [place] [address] | [address] | | | | | [address] | [place] [address] | | | | | [phone] | [phone] | | | | | | | [...] | | | | | [place] [address] | | | | | | [phone] | | | | | | | | +--------+---------+ + + + documented as of this encounter Visit Diagnoses Not on filedocumented in this encounter"
--- OUTSIDE RECORDS SUMMARY | ~2019-02-24 | XMS | Encounter Summary ---
Demographics + + + | Address | [address] | | | [place] [address] | + + + | Home Phone | | + + + | Preferred Language | Unknown | + + + | Marital Status | | + + + | Synagogue Affiliation | 1076 | + + + | Race | Unknown | + + + | Ethnic Group | Unknown | + + + Author + + + | Author | [facility] | | | and [place] | + + + | Organization | [facility] | [...] Providers + +------+ + | Care Automatic Engraver Name | Role | Phone | + [...] 2018 | | GASTROENTEROLOGY | [address] [place] | | | | | [address] [place] | [address] [place], [place] | | | | | [address] [place], [place] | [address] | | | | | [address] | | | | | | [phone] | | | +--------+ + + + [...] | | | | | [place] [address] | | | | | | [phone] | | | | | | | | +--------+---------+ + + + documented as of this encounter Visit Diagnoses Not on filedocumented in this encounter"
--- OUTSIDE RECORDS SUMMARY | ~2019-02-24 | XMS | Encounter Summary ---
Demographics + + + | Address | [address] | | | [place] [address] | + + + | Home Phone | | + + + | Preferred Language | Unknown | + + + | Marital Status | | + + + | Caodaism Affiliation | 1076 | + + + | Race | Unknown | + + + | Ethnic Group | Unknown | + + + Author + + + | Author | [facility] | | | and [place] | + + + | Organization | [facility] | | | and [place] [...] Team Providers + +------+ + | Care Egg Breaker Name | Role | Phone | + +------+ + | Parviz Brar DO | PCP | | + +------+ + Encounter Details +--------+ + + + + | Date | Type | Department | Care Team | Description | +--------+ + + + + | 06/16/ | Hospital | [facility] | Conversion | Pain | | 2017 | Encounter | [address] | Transaction, | | | | | [address] | Provider Unknown | | | | | [place], [place] | [phone] | | | | | [address] | | | | | | [phone] | | | +--------+ + + + [...] | | | | | [place] [address] | | | | | | [phone] | | | | | | | | +--------+---------+ + + + documented as of this encounter Procedures + +--------+ + + + | Procedure Name | Priori | Date/Time | Associated Diagnosis | Comments | | | ty | | | | + +--------+ + + + | CT CHEST WO CONTRAST | Routin | 12/16/2010 | | Results for this | | | e | 4:12 AM | | procedure are in the | | | | PDT | | results section. | + +--------+ + + + documented in this encounter Results CT Chest wo Contrast (12/16/2010 4:12 AM PDT) + + | Specimen [...]
--- OUTSIDE RECORDS SUMMARY | ~2019-02-24 | XMS | Encounter Summary ---
Demographics + + + | Address | [address] | | | [place] [address] | + + + | Home Phone | | + + + | Preferred Language | Unknown | + + + | Marital Status | | + + + | Jew Affiliation | 1076 | + + + | Race | Unknown | + + + | Ethnic Group | Unknown | + + + Author + + + | Author | [facility] | | | and [place] | + + + | Organization | [facility] | | | and [...] Team Providers + +------+ + | Care Custodian Manager Name | Role | Phone | + +------+ + PCP | Unavailable | + +------+ + Encounter Details +--------+ + + + + | Date | Type | Department | Care Team | Description | +--------+ + + + + | 11/02/ | Hospital | [facility] | | | | 2007 - | Encounter | MED CTR CANCER | | | | | | CENTER [address] | | | | 11/21/ | | [place] | | | | 2007 | | [address] | | | | | | [phone] | | | +--------+ + + + [...] | | | | | | [place] [address] | | | | | | [phone] | | | | | | | | +--------+---------+ + + + documented as of this encounter Visit Diagnoses Not on filedocumented in this encounter"
--- OUTSIDE RECORDS SUMMARY | ~2019-02-24 | XMS | Encounter Summary ---
Demographics + + + | Address | [address] | | | [place] [address] | + + + | Home Phone [...] + + + | Author | [facility] | | | and [place] | + + + | Organization | [facility] | | | and [...] Team Providers + +------+ + | Care Bench Tool Maker Name | Role | Phone | + +------+ + | Parviz Brar DO | PCP | | + +------+ + Encounter Details +--------+ + + + + | Date | Type | Department | Care Team | Description | +--------+ + + + + | 11/02/ | Abstract | [facility] [place] | Jorje Rutledge | | | 2017 | | [address] | [address] | | | | | [place], [place] | [address] | | | | | [address] | [place] [address] | | | | | [phone] | [phone] | | | | | | | [...] | | | | | [place] [address] | | | | | | [phone] | | | | | | | | +--------+---------+ + + + documented as of this encounter Procedures + +--------+ + + + | Procedure Name | Priori | Date/Time | Associated Diagnosis | Comments | | | ty | | | | + +--------+ + + + | EXTERNAL LAB: PSA | Routin | 10/24/2016 | | Results for this | | | e | 10:04 AM | | procedure are in the | | | | PDT | | results section. | + +--------+ + + + | EXTERNAL LAB: CARBON | Routin | 10/24/2016 | | Results for this | | DIOXIDE | e | 10:04 AM | | procedure are in the | | | | PDT | | results section. | + +--------+ + + + | EXTERNAL LAB: | Routin | 10/24/2016 | | Results for this | | CHLORIDE | e | 10:04 AM | | procedure are in the | | | | PDT | | results section. | + +--------+ + + + | EXTERNAL LAB: | Routin | 10/24/2016 | | Results for this | | POTASSIUM | e | 10:04 AM | | procedure are in the | | | | PDT | | results section. | + +--------+ + + + | EXTERNAL LAB: SODIUM | Routin | 10/24/2016 | | Results for this | | | e | 10:04 AM | | procedure are in the | | | | PDT | | results section. | + +--------+ + + + | EXTERNAL LAB: | Routin | 10/24/2016 | | Results for this | | CREATININE | e | 10:04 AM | | procedure are in the | | | | PDT | | results section. | + +--------+ + + + documented in this encounter Results External Lab: PSA (10/24/2016 10:04 AM PDT) + +-------+ + + + | Component | Value | Ref Range | Performed | Pathologist | | | | | At | Signature | + +-------+ + + + | PSA, | 0.203 | 0 - 4 | REFERENCE | | | External | | | LAB | | | | | | [facility] | | + +-------+ + + + + + + + + | Performing | Address | City/State/Zipcode | Phone Number | | Organization | | | | + + + + + | REFERENCE LAB | [address] | [place] [address] | [phone] | | [facility] | | | | + + + + + | REFERENCE LAB | [address] | [place] [address] | [phone] | | [facility] | | | | + + + + + External Lab: Carbon Dioxide (10/24/2016 10:04 AM PDT) + +-------+ + + + | Component | Value | Ref Range | Performed | Pathologist | | | | | At | Signature | + +-------+ + + + | Carbon | 24 | 19 - 31 | REFERENCE | | | Dioxide, | | | LAB | | | External | | | [facility] | | + +-------+ + + + + + + + + | Performing | Address | City/State/Zipcode | Phone Number | | Organization | | | | + + + + + | REFERENCE LAB | [address] | [place] [address] | [phone] | | [facility] | | | | + + + + + | REFERENCE LAB | [address] | [place] [address] | [phone] | | [facility] | | | | + + + + + External Lab: Chloride (10/24/2016 10:04 AM PDT) + +-------+ + + + | Component | Value | Ref Range | Performed | Pathologist | | | | | At | Signature | + +-------+ + + + | Chloride, | 103 | 95 - 112 | REFERENCE | | | External | | | LAB | | | | | | [facility] | | + +-------+ + + + + + + + + | Performing | Address | City/State/Zipcode | Phone Number | | Organization | | | | + + + + + | REFERENCE LAB | [address] | [place] [address] | [phone] | | [facility] | | | | + + + + + | REFERENCE LAB | [address] | [place] [address] | [phone] | | [facility] | | | | + + + + + External Lab: Potassium (10/24/2016 10:04 AM PDT) + +-------+ + + + | Component | Value | Ref Range | Performed | Pathologist | | | | | At | Signature | + +-------+ + + + | Potassium, | 4.5 | 3.6 - 5.1 | REFERENCE | | | External | | | LAB | | | | | | [facility] | | + +-------+ + + + + + + + + | Performing | Address | City/State/Zipcode | Phone Number | | Organization | | | | + + + + + | REFERENCE LAB | [address] [facility] | [place] [address] | [phone] | | [facility] | | | | + + + + + | REFERENCE LAB | [address] [facility] | [place] [address] | [phone] | | [facility] | | | | + + + + + External Lab: Sodium (10/24/2016 10:04 AM PDT) + +-------+ + + + | Component | Value | Ref Range | Performed | Pathologist | | | | | At | Signature | + +-------+ + + + | Sodium, | 138 | 132 - 143 | REFERENCE | | | External | | | LAB | | | | | | [facility] | | + +-------+ + + + + + + + + | Performing | Address | City/State/Zipcode | Phone Number | | Organization | | | | + + + + + | REFERENCE LAB | [address] | [place] [address] | [phone] | | [facility] | | | | + + + + + | REFERENCE LAB | [address] [facility] | [place] [address] | [phone] | | [facility] | | | | + + + + + External Lab: Creatinine (10/24/2016 10:04 AM PDT) + +-------+ + + + | Component | Value | Ref Range | Performed | Pathologist | | | | | At | Signature | + +-------+ + + + | Creatinine, | 0.79 | 0.7 - 1.18 | REFERENCE | | | External | | | LAB | | | | | | [facility] | | + +-------+ + + + + + | Specimen | + + | Blood | + + + + + + + | Performing | Address | City/State/Zipcode | Phone Number | | Organization | | | | + + + + + | REFERENCE LAB | [address] | [place] [address] | [phone] | | [facility] | | | | + + + + + | REFERENCE LAB | [address] | [place] [address] | [phone] | | [facility] | | | | + + + + + documented in this encounter Visit Diagnoses Not on filedocumented in this encounter"
--- OUTSIDE RECORDS SUMMARY | ~2019-02-24 | XMS | Encounter Summary ---
Demographics + + + | Address | [address] | | | [place] [address] | + + + | Home Phone | | + + + | Preferred Language | Unknown | + + + | Marital Status | | + + + | Islam Affiliation | 1076 | + + + | Race | Unknown | + + + | Ethnic Group | Unknown | + + + Author + + + | Author | [facility] | | | and [place] | + + + | Organization | [facility] | | [...] Team Providers + +------+ + | Care Peoplesoft Crm Developer Name | Role | Phone | + [...] Description | +--------+--------+ + + + | 01/27/ | Refill | [facility] | Jorje Rutledge | Medication Refill | | 2019 | | [address] | [address] | | | | | [place], [place] | [address] [facility] | | | | | [address] | [place] [address] | | | | | [phone] | [phone] | | | | | | | [...] | | | | | [place] [address] | | | | | | [phone] | | | | | | | | +--------+---------+ + + + documented as of this encounter Visit Diagnoses Not on filedocumented in this encounter"
--- OUTSIDE RECORDS SUMMARY | ~2019-02-24 | XMS | Encounter Summary ---
Demographics + + + | Address | [address] | | | [place] [address] | + + + | Home Phone [...] | Organization | [facility] | | | and [place] [...] Team Providers + +------+ + | Care Verification Manager Name | Role | Phone | [...] Segura MD | | | | | [place], | | | | | | [place] [address] | | | | | | [phone] | | | +--------+ + + + [...] | | | | | [place] [address] | | | | | | [phone] | | | | | | | | +--------+---------+ + + + documented as of this encounter Visit Diagnoses Not on filedocumented in this encounter"
--- OUTSIDE RECORDS SUMMARY | ~2019-02-24 | XMS | Encounter Summary ---
Demographics + + + | Address | [address] | | | [place] [address] | + + + | Home Phone | | + + + | Preferred Language | Unknown | + + + | Marital Status | | + + + | Islam Affiliation | 1076 | + + + | Race | Unknown | + + + | Ethnic Group | Unknown | + + + Author + + + | Author | [facility] | | | and [place] | + + + | Organization | [facility] | | | and [place] | [...] Team Providers + +------+ + | Care Jacquard Lace Weaver Name | Role | Phone | + +------+ + PCP | Unavailable | + +------+ + Encounter Details +--------+ + + + + | Date | Type | Department | Care Team | Description | +--------+ + + + + | 09/22/ | Hospital | [facility] | | | | 2007 - | Encounter | MED CTR CANCER | | | | | | CENTER [address] | | | | 10/22/ | | [place] | | | | 2007 | | [address] | | | | | | [phone] | | | +--------+ + + + [...] | | | | | | [place] [address] | | | | | | [phone] | | | | | | | | +--------+---------+ + + + documented as of this encounter Visit Diagnoses Not on filedocumented in this encounter"
--- OUTSIDE RECORDS SUMMARY | ~2019-02-24 | XMS | Encounter Summary ---
Demographics + + + | Address | [address] | | | [place] [address] | + + + | Home Phone | | + + + | Preferred Language | Unknown | + + + | Marital Status | | + + + | Mandaeism Affiliation | 1076 | + + + | Race | Unknown | + + + | Ethnic Group | Unknown | + + + Author + + + | Author | [facility] | | | and [place] | + + + | Organization | [facility] | | | and [place] [...] Team Providers + +------+ + | Care Analytical Tech Name | Role | Phone | [...] | | | MD [address] | [place], | | | | | [address] | [place] [address] | | | | | | [place], | Phone: | | | | | | [place] [address] | [phone] | | | | | | | Fax: | | | | | | | [phone] | +--------+ + + + + + [...] | pulmonary disease, | | | | [place], | | unspecified COPD | | | | [place] [address] | | type (HCC); | | | | [phone] | | Nocturnal hypoxemia | | | | | | due to emphysema | | | | | | ([facility]); Prostate | | | | | | cancer ([facility]) | +--------+---------+ + + + Social History [...] COPD. In January, he went in to [facility] after having a GI bleed, with dark [...] exercising reg ularly. He is walking at [facility] as it has been too cold to walk outside. He has not been coughing much. He had hemoptysis only for a couple of days, and this resol ed. He has been evaluated for nocturnal oxygen and does use it. He is currently on 2 LPM at [facility]. He reports good compliance. He required as much as 10L of oxygen in the hospital. Past Medical History Past Medical History Diagnosis Date Peptic ulcer disease with upper GI bleed Benign prostatic hypertrophy Osteoarthritis Heartburn Pulmonary nodules Shoulder fracture 02/2012 Foot fracture 02/2012 SVT (supraventricular tachycardia) 01/[address] Wilder for ablation Depression Prostate cancer ([facility]) 2007 s/p radiation treatment and on hormonal treatment with Lupron; DR B[place] COPD (chronic obstructive pulmonary disease) ([facility]) DR BILLY CASTRO Pneumonia 05/2012 hospitalized [facility] Heart murmur DR MARIAA OLIVERA Cataracts, bilateral [...] Laterality: N/A; Surgeon: Jennifer Wilder MD; Location: [facility] ELECTROPHYSIOLOGY Egd and colonoscopy 02/06/2015 [...] No other animal exposures. Grew up in [place]. Then lived in [place]. Then moved to [place]. In the service lived [facility] and [place]. No recent travel. Allergies: Allergies Allergen Reactions [...] AILY 1 Inhaler 1 [facility] Please provide an O2 concentrator while [...] Chronic obstructive pulmonary disease, unspecified COPD type ([facility]) J44.9 496 On Breo wit h good symptomatic improvement. Given that his anemia is also correcting, this likely accoun ts for some of his symptom improvement. He can switch the Atrovent to as needed only. 2. 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 We will continue this. G47.36 327.26 3. Prostate cancer ([facility]) C61 185 On Lupron therapy and followed [...] made to ensure accuracy; however, inadvertent computerized damascener errors may be pre sent. documented in [...] | | | | | [place] [address] | | | | | | [phone] | | | | | | | [...]
--- OUTSIDE RECORDS SUMMARY | ~2019-02-24 | XMS | Encounter Summary ---
Demographics + + + | Address | [address] | | | [place] [address] | + + + | Home Phone | | + + + | Preferred Language | Unknown | + + + | Marital Status | | + + + | Confucianist Affiliation | 1076 | + + + | Race | Unknown | + + + | Ethnic Group | Unknown | + + + Author + + + | Author | [facility] | | | and [place] | + + + | Organization | [facility] | [...] Team Providers + +------+ + | Care Audio Visual Arts Director Name | Role | Phone | + +------+ + PCP | Unavailable | + +------+ + Encounter Details +--------+ + + + + | Date | Type | Department | Care Team | Description | +--------+ + + + + | 01/05/ | Hospital | [facility] | | | | 1999 | Encounter | MED CTR XRAY [address] | | | | | | [address] | | | | | | [place] [address] | | | | | | [phone] | | | +--------+ + + + [...] | | | | | [place] [address] | | | | | | [phone] | | | | | | | | +--------+---------+ + + + documented as of this encounter Visit Diagnoses Not on filedocumented in this encounter"
--- OUTSIDE RECORDS SUMMARY | ~2019-02-24 | XMS | Encounter Summary ---
Demographics + + + | Address | [address] | | | [place] [address] | + + + | Home Phone | | + + + | Preferred Language | Unknown | + + + | Marital Status | | + + + | Zoroastrian Affiliation | 1076 | + + + | Race | Unknown | + + + | Ethnic Group | Unknown | + + + Author + + + | Author | [facility] | | | and [place] | + + + | Organization | [facility] | | | and [...] Providers + +------+ + | Care Field Rep Name | Role | Phone | + +------+ + | Parviz Brar DO | PCP | | + +------+ + Encounter Details +--------+ + + + + | Date | Type | Department | Care Team | Description | +--------+ + + + + | 04/14/ | Orders Only | [facility] [place] | Rupa Watt, | COPD (chronic | | 2013 | | PULMONARY [address] | RN | obstructive | | | | [place], | | pulmonary disease) | | | | [place] [address] | | ([facility]) | | | | [phone] | | | +--------+ + + + [...] | | | | | [address] [place] | | | | | | [place] [address] | | | | | | [phone] | | | | | | | | +--------+---------+ + + + documented as of this encounter Visit Diagnoses + + | Diagnosis | + + | COPD (chronic obstructive pulmonary disease) (HCC) Chronic airway obstruction, not | | elsewhere classified | + + documented in this encounter"
--- OUTSIDE RECORDS SUMMARY | ~2019-02-24 | XMS | Encounter Summary ---
Demographics + + + | Address | [address] | | | [place] [address] | + + + | Home Phone | | + + + | Preferred Language | Unknown | + + + | Marital Status | | + + + | Presybeterian Affiliation | 1076 | + + + | Race | Unknown | + + + | Ethnic Group | Unknown | + + + Author + + + | Author | [facility] | | | and [place] | + + + | Organization | [facility] | | | and [place] [...] Team Providers + +------+ + | Care Optical Effects Layout Person Name | Role | Phone | + [...] Description | +--------+---------+ + + + | 01/26/ | Office | [facility] [place] | Off[place], | COPD (chronic | | 2012 | Visit | PULMONARY [address] | Becca Segura MD | obstructive | | | | [place], | | pulmonary disease) | | | | [place] [address] | | (HCC) (Primary Dx); | | | | [phone] | | Nocturnal hypoxemia; | | | [...] + + + | Blood Pressure | 136/74 | 01/26/2013 1:52 PM | | | | | PST | | + + + + + | Pulse | 81 | 01/26/2013 1:52 PM | | | | | PST | | + + + + + | Temperature | - | - | | + + + + + | Respiratory Rate | - | - | | + + + + + | Oxygen Saturation | 92% | 01/26/2013 1:52 PM | | | | | PST | | + + + + + | Inhaled Oxygen | - | - | | | Concentration | | | | + + + + + | Weight | 79.6 kg (175 lb 6.4 | 01/26/2013 1:52 PM | | | | oz) | PST | | + + + + + | Height | 182.9 cm (6') | 01/26/2013 1:52 PM | | | | | PST | | + + + + + | Body Mass Index | 23.79 | 01/26/2013 1:52 PM | | | | | PST | | + + + + + documented in this encounter Patient Instructions Patient Instructions Becca Castro MD - 01/26/2013 2:33 PM PSTIncrease the Atrove nt to 4 times a day. P M PST documented in this encounter Progress Notes Becca Castro MD - 01/26/2013 2:08 PM PSTFormatting of this note might be differe nt from the original. Pulmonary Follow Up Note MD [place] [facility] [address] [place], [address] HPI Diego Lucas is a 77 y.o. male patient of Parviz Brar here today for follow up of COPD. At their last visit, we had treated him antibiotics, a course of levofloxacin. We tried to get sputum cultures from his prior admission in [place], but they had not done any. They tr eated him for nosocomial infection. He felt like the antibiotics helped some, and then he gr adually got better. Since their last visit he feels like he has been doing better. He has n ot had any acute illnesses. He notes he still coughs up a lot of mucous, but thinks this is chronic. It is white to lig ht yellow in color. He is currently on a regimen of Flovent 220mcg 2 puffs twice daily, and Atrovent 2 puffs tw ice daily. He does feel like this medication regimen is working for them. Currently he is u sing his rescue inhaler, Ventolin, a few times a week at most. He is short of breath if he does too much. If he walks up hills he has problems. Currently He is able to walk 10-11 blocks at his own pace on level ground. He is not exercising regula rly. He is thinking about joining the gym down in [place]. He has not had hemoptysis. He has been evaluated for nocturnal oxygen and does use it. He is currently on 1.5 LPM at [facility]. He reports good compliance. He does not use it when he goes out of town. Past Medical History Past Medical History Diagnosis [...] home. No other animal exposures.Grew up in [place]. Then lived in [place]. Then move d to [place]. In the service lived in [facility] and [place]. No recent travel. Allergies: Allergies Allergen Reactions Adhesive & Tape Paper tapes Medications: Outpatient Encounter Prescriptions as of 01/26/2013 Medication Sig Dispense Refill acetaminophen (TYLENOL) 325 [...] capsule Take 1,000 Units by mouth Daily. ferrous sulfate 325 mg tablet Take 325 mg by mouth daily (with breakfast). fluticasone (FLOVENT HFA) 220 mcg/puff inhaler Inhale 1 puff into the lungs 2 times abhijeet ly. 1 Inhaler 3 [DISCONTINUED] FLUTICASONE-SALMETEROL IN 1 puff inhaled twice daily folic acid (FOLVITE) 400 MCG tablet Take 400 mcg by mouth Daily. Hydrocodone-Acetaminophen 10-300 MG TABS as needed for pain [DISCONTINUED] IBUPROFEN Take by mouth as needed. ipratropium (ATROVENT HFA) 17 mcg/puff inhaler Inhale 2 puffs into the lungs 2 times da leslie. [DISCONTINUED] ipratropium (ATROVENT HFA) 17 mcg/puff inhaler Inhale 2 puffs into the l ungs 4 times daily. 1 Inhaler 3 omeprazole (PRILOSEC OTC) 20 mg tablet Take 20 mg by mouth Daily. oxygen Inhale 2 L into the lungs nightly. tamsulosin (FLOMAX) 0.4 mg CAPS Take 0.4 mg by mouth daily (after breakfast). [DISCONTINUED] venlafaxine (EFFEXOR XR) 150 mg 24 hr capsule Take 150 mg by mouth Daily . venlafaxine (EFFEXOR XR) 37.5 mg 24 hr capsule Take 37.5 mg by mouth Daily. VENTOLIN HFA 108 (90 BASE) MCG/ACT inhaler INHALE 2 PUFFS EVERY 4 HOURS NEEDED FOR S HORTNESS OF BREATH 18 g 11 Review of Systems Constitutional: Denies fever, chills, sweats. He has gained a little weight recently. Eyes: Denies vision change and eye irritation. ENT: Denies earache, decreased hearing, nasal congestion, nosebleeds, sore throat, and merline rseness. Resp: See HPI. CV: Denies chest pain, palpitations, syncope, and peripheral edema. GI: Denies heartburn, nausea, vomiting, and abdominal pain. Had diarrhea for a month and a half, now improved with change in iron. : Denies difficulty emptying bladder. Nocturia typically one time a night. Objective BP 136/74 | Pulse 81 | Ht 1.829 m (6') | Wt 79.561 kg (175 lb 6.4 oz) | BMI 23.79 kg/m2 | S pO2 92% General Appearance: Alert, cooperative, no distress, appears [...] nodes normal Data: Overnight oximetry was done in October on 2L by Destiny and results were not received. Chest CT scan was done prior to clinic today and was reviewed and interpreted in clinic tofletcher madrigal. It shows decreased in consolidative opacities seen previously. He has some continued sca ttered nodules. Immunization History Administered Date(s) Administered INFLUENZA, PRESERVATIVE FREE IM 12/11/2012 Pneumococcal (Adult) 10/21/2010 Assessment 1. COPD (chronic obstructive pulmonary disease) - Fairly stable. I suggested using the Atro vent four times daily to see if cough decreases somewhat. 2. 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 Recent overnight oximetry done on 2L (he had told me he was on 2L instead of 1.5L), and never received. We will work to get this result. 3. Abnormal CT scan - Improved. I suspect he will need follow up given nodules seen, but wi ll await radiologist report. Plan 1.Increase Atrovent to 4 times daily. 2.Remain on Flovent. 3.Continue oxygen at 1.5L at night, and get result sof overnight oximetry on 2L. If oxygen saturation really high on 2L overnight oximetry, then decrease. 4. Pending radiologist report, we will decide on follow up imaging. He was advised to call if new pulmonary symptoms were to develop. Return to clinic in 3 months, or sooner with concerns. CC: Parviz Brar Portions of this report were transcribed using voice recognition software. Every effort wa s made to ensure accuracy; however, inadvertent computerized associate attorney errors may be pre sent. documented in t his encounter Plan of Treatment +--------+---------+ + + + | Date | Type | Specialty | Care Team | Description | +--------+---------+ + + + | 03/13/ | Office | Urology | Rutledge, Jorje | | | 2019 | Visit | | MD [address] | | | | | | [address] | | | | | | [place] [address] | | | | | | [phone] | | | | | | | [...]
--- OUTSIDE RECORDS SUMMARY | ~2019-02-24 | XMS | Encounter Summary ---
Demographics + + + | Address | [address] | | | [place] [address] | + + + | Home Phone | | + + + | Preferred Language | Unknown | + + + | Marital Status | | + + + | Confucianism Affiliation | 1076 | + + + | Race | Unknown | + + + | Ethnic Group | Unknown | + + + Author + + + | Author | [facility] | | | and [place] | + + + | Organization | [facility] | | | and [place] [...] Team Providers + +------+ + | Care Community Educator Name | Role | Phone | + [...] | | Abnormal | [place], | [address] | | | | | chest CT | Becca B, | [place], | | | | | Procedures | MD [address] | [place] [address] | | | | | CT Chest wo | [address] | Phone: | | | | | Contrast | [place], | [phone] | | | | | | [place] [address] | Fax: | | | | | | | [phone] | +--------+--------+ + + + + Reason [...] (Primary Dx); COPD | | | | [address] [place], | | (chronic obstructive | | | | [place] [address] | | pulmonary disease) | | | | [phone] | | ([facility]); Pneumonia | +--------+---------+ + + + Social [...] original. Pulmonary Follow Up Becca Castro MD [place] [facility] [address] [place], [address] [facility] Diego Lucas is a 76 y.o. male [...] He was hospitalized for t his at [facility] in May. He was in the hospital [...] good compliance, except when he was in [place]. Past Medical History Past Medical History Diagnosis [...] home. No other animal exposures.Grew up in [place]. Then lived in [place]. Then move d to [place]. In the service lived in [facility] and [place]. No recent travel. Allergies: Allergies [...] janee for which he was hospitalized at [facility]. Last PSA was 2, and these are [...] he becomes ill. Plan 1.Get imaging from [facility]. 2.Repeat chest CT scan in 3 months. 3.Continue Flovent and Atrovent. He was advised to call if new pulmonary symptoms were to develop. Return to clinic in 3 months with repeat chest CT, or sooner with concerns. CC: Parviz Brar Portions of this report were transcribed using voice recognition software. Every effort wa s made to ensure accuracy; however, inadvertent computerized social work instructor errors may be pre sent. documented in [...] | | | | | [place] [address] | | | | | | [phone] | | | | | | | | +--------+---------+ + + + documented as of this encounter Results CT Chest wo Contrast (10/27/2012 3:21 PM PDT) + + | Specimen | + + | | + + + + + | Narrative | Performed At | + + + | [facility] | [place] | | Department [address] [facility] | [facility] | | [ rep [address]] [ rep [facility] | | [facility]] Signed | - IMAGING | | | | | Patient Name: DIEGO LUCAS Physician: | | | . : 1935 Age: 76 Sex: M Unit #: [id number] | | | Exam Date: 10/27/12 Location: [facility] | | | Report #: [id number] Page: | | | %(RAD)RES..mtdd.print.filter("pg") of %(RAD) | | | RES..mtdd.print.filter("tpg") | | | | | | Accession Number: [id number] | | | [id number] CHEST CT CLINICAL HISTORY: FOLLOWUP | | [...] | | | Transcribed Date/Time: 10/27/2012 16:01 Mental Health Assistant: | | | <<Signature on File>> | | | Yosef | | | MD Jimmie10/27/122003 <Electronically signed by Yosef Samuel MD> | | | Yosef Samuel MD 10/27/12 1521 Mental Health Assistant: [employer] | | | Lneizzuwbnefi66/05/13 1601 Becca Castro MD | | | | | + + + + + + + + | Performing | Address | City/State/Zipcode | Phone Number | | Organization | | | | + + + + + | [facility] | [address] | [place] | [phone] | | [facility] | | [address] | | | - IMAGING | | [...]
--- OUTSIDE RECORDS SUMMARY | ~2019-02-24 | XMS | Encounter Summary ---
Demographics + + + | Address | [address] | | | [place] [address] | + + + | Home Phone | | + + + | Preferred Language | Unknown | + + + | Marital Status | | + + + | Latter Day Affiliation | 1076 | + + + | Race | Unknown | + + + | Ethnic Group | Unknown | + + + Author + + + | Author | [facility] | | | and [place] | + + + | Organization | [facility] | | | and [...] Team Providers + +------+ + | Care Churn Driller Name | Role | Phone | + +------+ + PCP | Unavailable | + +------+ + Encounter Details +--------+ + + + + | Date | Type | Department | Care Team | Description | +--------+ + + + + | 03/09/ | Hospital | [facility] | | | | 1994 | Encounter | MED CTR XRAY [address] | | | | | | [address] | | | | | | [place] [address] | | | | | | [phone] | | | +--------+ + + + [...] | | | | | [place] [address] | | | | | | [phone] | | | | | | | | +--------+---------+ + + + documented as of this encounter Visit Diagnoses Not on filedocumented in this encounter"
--- OUTSIDE RECORDS SUMMARY | ~2019-02-24 | XMS | Encounter Summary ---
Demographics + + + | Address | [address] | | | [place] [address] | + + + | Home Phone | | + + + | Preferred Language | Unknown | + + + | Marital Status | | + + + | Restoration Affiliation | 1076 | + + + | Race | Unknown | + + + | Ethnic Group | Unknown | + + + Author + + + | Author | [facility] | | | and [place] | + + + | Organization | [facility] | | | and [...] Team Providers + +------+ + | Care Tip Tester Name | Role | Phone | [...] Description | +--------+--------+ + + + | 11/08/ | Refill | [facility] [place] | Jorje Rutledge | Medication Refill | | 2016 | | [address] | MD [address] | | | | | [place], [place] | [address] [facility] | | | | | [address] | [place] [address] | | | | | [phone] | [phone] | | | | | | | [...] | | | | | [place] [address] | | | | | | [phone] | | | | | | | | +--------+---------+ + + + documented as of this encounter Visit Diagnoses Not on filedocumented in this encounter"
--- OUTSIDE RECORDS SUMMARY | ~2019-02-24 | XMS | Encounter Summary ---
Demographics + + + | Address | [address] | | | [place] [address] | + + + | Home Phone [...] [facility] | | | and [place] | + + + | Organization | [facility] | | [...] Team Providers + +------+ + | Care Panman Name | Role | Phone | + +------+ + | Parviz Brar DO | PCP | | + +------+ + Reason for Visit +--------+ + | Reason | Comments | +--------+ + | Other | nocturnal O2 in [place] | +--------+ + Encounter Details +--------+ + + + + | Date | Type | Department | Care Team | Description | +--------+ + + + + | 06/26/ | Telephone | [facility] [place] | [place], | Other (nocturnal O2 | | 2013 | | PULMONARY [address] | Becca Segura MD | in [place]) | | | | [place], | | | | | | [place] [address] | | | | | | [phone] | | | +--------+ + + + [...] | | | | | [address] [place] | | | | | | [place] [address] | | | | | | [phone] | | | | | | | | +--------+---------+ + + + documented as of this encounter Visit Diagnoses + + | Diagnosis | + + | Chronic airway obstruction, not elsewhere classified - Primary | + + | Hypoxemia | + + documented in this encounter"
--- OUTSIDE RECORDS SUMMARY | ~2019-02-24 | XMS | Encounter Summary ---
Demographics + + + | Address | [address] | | | [place] [address] | + + + | Home Phone [...] | Organization | [facility] | | | and [...] Providers + +------+ + | Care Furniture Rental Consultant Name | Role | Phone | + +------+ + PCP | Unavailable | + +------+ + Encounter Details +--------+ + + + + | Date | Type | Department | Care Team | Description | +--------+ + + + + | 04/24/ | Hospital | [facility] | [place], | | | 2011 | Encounter | MED CTR XRAY [address] | Becca Segura MD | | | | | [address] | | | | | | [place] [address] | | | | | | [phone] | | | +--------+ + + + [...] | | | | | [place] [address] | | | | | | [phone] | | | | | | | [...] Performed At | + + + | [facility] Diagnostic Imaging Department | [facility] | | [address] [facility] | [facility] | | CHEST CT WITHOUT IV CONTRAST | [facility] IM | | 06/16/2011 CLINICAL HISTORY: PULMONARY [...] Transcribed Date/Time: | | | 06/17/2011 14:38 Child Care Associate Teacher: <Electronically Signed | | | by Krzysztof Jewell MD> 06/18/11 0757 | | + + + + + | Procedure Note | + + | [place], Rad Conversion - 03/31/2013 5:11 PM [facility] | | Diagnostic Imaging Department [address] [place] [address] | | CHEST CT WITHOUT IV CONTRAST [...] 14:31 | |Transcribed Date/Time: 06/17/2011 14:38 | |Child Care Associate Teacher: | |<Electronically Signed by Krzysztof Jewell MD> 06/18/11 0757 | + + + +---------+ + + | Performing | Address | City/State/[facility] | Phone Number | | Organization | | | | + +---------+ + + | [place] | | | | | [place] | | | | + +---------+ + + documented in this encounter Visit Diagnoses Not on filedocumented in this encounter"
--- OUTSIDE RECORDS SUMMARY | ~2019-02-24 | XMS | Encounter Summary ---
Demographics + + + | Address | [address] | | | [place] [address] | + + + | Home Phone [...] Organization | [facility] | | [...] Team Providers + +------+ + | Care Design Intern Name | Role | Phone | [...] | in [place]) | | | | [place], | | | | | | [place] [address] | | | | | | [phone] | | | +--------+ + + + [...] | | | | | | [place] [address] | | | | | | [phone] | | | | | | | | +--------+---------+ + + + documented as of this encounter Visit Diagnoses + + | Diagnosis | + + | Chronic airway obstruction, not elsewhere classified - Primary | + + | Hypoxemia | + + documented in this encounter"
--- OUTSIDE RECORDS SUMMARY | ~2019-02-24 | XMS | Clinical Summary ---
Demographics + + + | Address | [address] | | | [place] [address] | + + + | Home Phone | | + + + | Preferred Language | Unknown | + + + | Marital Status | | + + + | Islam Affiliation | PRE | + + + [...] Providers + +------+ + | Care Security Infrastructure Engineer Name | Role | Phone | + +------+ + | Parviz Brar DO | PCP | | + +------+ + Source Comments VERENA is fully live on both [facility] and [facility] InPatient.[facility] Allergies + + + + [...] 0 | | | Activ | | Oral [...] 0 | | | Activ | | Oral [...] 0 | | | Activ | | mg [...] two | | 0 | | | Activ | | mcg/actuation | times daily. | | | | | e | | Inhalation Aerosol | | | | | | | | (Aero) | | | | | | | + + + +---------+------+------+-------+ | cetirizine 5 mg | Take 5 mg by mouth | | 0 | | | Activ | | Oral tablet | two times daily. | | | | | e | + + + +---------+------+------+-------+ | tamsulosin 0.4 mg | Take 0.4 mg by mouth | | 0 | | | Activ | | Oral | once daily in the | | | | | e | | capsule,extended | evening. 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 | | | | | e | + + + +---------+------+------+-------+ | docusate sodium | Take 100 mg by mouth | | 0 | | | Activ | | 100 mg Oral capsule | twice daily as | | | | | e | | | needed. | | | | | | + + + +---------+------+------+-------+ | ipratropium 17 | Inhale 2 Puffs four | | 0 | | | Activ | | mcg/actuation | times daily as | | | | | e | | Inhalation HFA | needed. | | | | | | | Aerosol Inhaler | | | | | | | + + + +---------+------+------+-------+ | temazepam 15 mg | Take 15 mg by mouth | | 0 | | | Activ | | Oral [...] Tab by mouth | | 0 | 04/2 | | Activ | | 81 mg Oral tablet, | once daily. DO NOT | | | 3/20 | | e | | chewable | [...] | 3/20 | | e | | Dickens | every six hours as | | | 13 | | | | | needed (Epistaxis). | | | | | | | | Use for only 3 days. | | | | | | + + + +---------+------+------+-------+ | sodium chloride | Instill 2 Sprays in | | 0 | 04/2 | | Activ | | 0.65 % Nasal | nose every two hours | | | 3/20 | | e | | Aerosol, Dickens | while awake. | | | 13 | | | + + + +---------+------+------+-------+ Active Problems + + + | Problem | Noted Date | + + + | Epistaxis | 06/10/2012 | + + + | Anemia | 06/10/2012 | + + + Family History + + +------+ + | Medical History | Relation | Name | Comments | + + +------+ + | Non-contributory | Neg Hx | | | + + +------+ + Social History + +-------+ +--------+------+ | [...] | + + + + + | Influenza (Flu) | | 11/10/2014, 11/18/2013, | | | vaccination (#1) | 9 | 12/11/2012 | | + + + + + | Pneumococcal | Completed | 03/13/2014, 10/21/2010 | | | vaccination | | | | + + + + + Results Not on filefrom Last 3 Months Insurance + +--------+ +--------+ + +--------+ | Payer | Benefi | Subscriber | Effect | Phone | Address | Type | | | t Plan | ID | [place]alia | | | | | | / | | Dates | | | | | | Group | | | | | | + +--------+ +--------+ + +--------+ | MEDICARE | MEDICA | xxxxxxxxxx | | [phone] | [address] | [address] | | | RE A & | | [phone] | | | [address] | | esent | | [place] | | | | | | | | [address] | | + +--------+ +--------+ + +--------+ | COMMERCIAL | INDIVI | [id number] | Effect | | | Indemn | | INDIVIDUAL | DUAL | | nathalia | | | ity | | | COMMER | | for | | | | | | CIAL | | all | | | | | | | | dates | | | | + +--------+ +--------+ + +--------+ + +--------+ +--------+ + + | Guarantor Name | Accoun | Relation to | Date | Phone | Billing Address | | | t Type | Patient | of | | | | | | | | | | + +--------+ +--------+ + + | Diego Lucas | Person | Self | [birth year] | | | | al/Fam | | 1936 | [phone] | [place] [address] | | | [place] | | | 3 (Home) | | + +--------+ +--------+ + + Advance Directives + + + + + | Code Status | Date | Date | Comments | | | Activated | Inactivated | | + + + + + | Full Code | 06/10/2012 | 06/14/2012 | | | | 1:30 AM | 9:50 PM | | + + + + + + + + +---+ | | | | | + + + +---+ | Full Code | 06/08/2012 | 06/08/2012 | | | | 12:49 AM | 8:28 PM | | + + + +---+"
--- OUTSIDE RECORDS SUMMARY | ~2019-02-24 | XMS | Encounter Summary ---
Demographics + + + | Address | [address] | | | [place] [address] | + + + | Home Phone [...] + | Author | [facility] | | | and [place] | + + + | Organization | [facility] | | | and [...] Team Providers + +------+ + | Care Dental Laboratory Worker Name | Role | Phone | + +------+ + | Parviz Brar DO | PCP | | + +------+ + Encounter Details +--------+---------+ + + + | Date | Type | Department | Care Team | Description | +--------+---------+ + + + | 03/19/ | Surgery | [facility] | Jennifer Wilder, | ABLATION, SVT | | 2014 | | [facility] | MD [address] | | | | | ELECTROPHYSIOLOGY | [address] [place] | | | | | [address] | [address] | | | | | [place] | [phone] | | | | | [address] | | | | | | [phone] | | | +--------+---------+ + + + [...] documented in this encounter Discharge Summaries Jennifer Wilder MD - 03/19/2014 11:57 AM PSTFormatting of this note might be different fro m the original. DISCHARGE SUMMARY [facility] PATIENT NAME/: Diego Lucas, (1935) DATE OF ADMISSION: 03/19/2014 DATE OF DISCHARGE: 03/19/2014 DISCHARGING MID-LEVEL: EKATERINA Alonso DISCHARGING PHYSICIAN: Jennifer Wilder MD DISPOSITION: Discharge to home BRIEF HOSPITAL COURSE: Please see the history and physical at the time of admission. Briefly, Mr. Lucas is a 78 y.o. male who was admitted on 03/19/2014 with a supraventricular tachycardia. After preli minary laboratory studies, the pt underwent a catheter ablation for his SVT as noted below. EKG shows sinus rhythm with normal NC interval and no preexcitation. MASTER PROBLEM LIST: [...] EKG: KG shows sinus rhythm with normal NC interval and no preexcitation. Selected Labs: Lab [...] mg by mouth Daily. Respiratory Therapy Supplies [facility] Please provide an O2 concentrator while Diego [...] by mouth nightly as needed. SLEEP aka: NAHUN PATIENT INSTRUCTIONS: ACTIVITY: activity as tolerated and no driving for today DIET: cardiac and low sodium FOLLOW-UP: Follow up with Jennifer Wilder MD in am for an EKG. Dr. Noe Worley in 2-3 weeks. . Time spent on discharge planning: less than 30 minutes Thank you for allowing [facility] to be involved in the care of this patient. Please call with any questions . Patient Care Team: Parviz Brar as PCP - General (Family Medicine) Becca Castro MD as Physician (Pulmonary Disease) Noe Worley MD (Cardiology) Note reviewed, agree with above Jennifer Wilder MD [facility] documented in this e ncounter Discharge Instructions [...] dizziness Repeated vomiting You cannot be awakened [id number] [employer]. [address] [place] [address], [place] [address]. All righ ts reserved. This information is [...] Lowe RN - 03/19/2014 4:13 PM PSTBilat keziain D/I, soft pain free.Electronicall y signed by Zandra Lowe RN at 03/19/2014 4:14 PM Zandra Gaxiola RN - 03/19/2014 3:28 PM PSTPt up to ambulated in steward steady, no dizziness. Tolerated PO fluids, snack.Bila t groins stable. Zandra Gaxiola RN - 03/19/2014 2:16 PM PSTRecd rept from RN nicolle care. Pt AAOx3, pain free, bilat groins d/i. oo Cheyenne esposito RN - 03/19/2014 10:02 AM PSTIsuprel stopped documented in this encounter Plan of Treatment +--------+---------+ + + + | Date | Type | Specialty | Care Team | Description | +--------+---------+ + + + | 03/13/ | Office | Urology | Jorje Rutledge | | | 2019 | Visit | | MD [address] | | | | | | [place] | | | | | | [place] [address] | | | | | | [phone] | | | | | | | [...] at | 1.7 - 2.4 mg/dL | [facility] | | | | [place] | | [facility]CR[facility] | | | | [facility], [address] | | HEART | | | | [place] [address] | | MEDICAL | | | | [...] + + + + + | [facility] | [address] | [place] [address] | | | [facility] | | | | | LABORATORY | | | | + + + + + CBC no Differential (03/19/2014 6:18 AM PST) + + + + + + | Component | Value | Ref Range | Performed | Pathologist | | | | | At | Signature | + + + + + + | WBC | 5.4 | 3.8 - 11.0 K/uL | [facility] | | | | | | [facility] | | | | | | HEART | | | | | | MEDICAL | | | | | | CENTER | | | | | | LABORATORY | | + + + + + + | RBC | 3.92 (L) | 4.20 - 5.70 | [facility] | | | | | M/uL | [facility] | | [...] | [facility] | | | Count | [place] | | SACRED | | | | [facility], [address] | | HEART | | | | [address] [place] [address] | | MEDICAL | | | | [...] | + + + + + | [facility] | [address] | [place] [address] | | | HEART [facility] | | | | | LABORATORY [...] + + + | Glucose | 97Comment: Micronesian | 65 - 99 mg/dL | [facility] | | | | Diabetes Association | [...] at | | | | | | [facility] | | | | | | [facility], [address] | | | | | | [address] [place] [address] | | | | + + + + + + + + | Specimen | + + | Blood specimen | | (specimen) | + + + + + + + | Performing | Address | City/State/Zipcode | Phone Number | | Organization | | | | + + + + + | [facility] | [address] | [place] [address] | | | [facility] | | | | | LABORATORY | [...]
--- OUTSIDE RECORDS SUMMARY | ~2019-02-24 | XMS | Encounter Summary ---
Demographics + + + | Address | [address] | | | [place] [address] | + + + | Home Phone | | + + + | Preferred Language | Unknown | + + + | Marital Status | | + + + | Orthodoxy Affiliation | 1076 | + + + | Race | Unknown | + + + | Ethnic Group | Unknown | + + + Author + + + | Author | [facility] | | | and [place] | + + + | Organization | [facility] | | | and [place] | [...] Team Providers + +------+ + | Care Volunteer Services Assistant Name | Role | Phone | [...] [address] | | | | | [place], [place] | [address] | | | | | [address] | [place] [address] | | | | | [phone] | [phone] | | | | | | | [...] | | | | | [place] [address] | | | | | | [phone] | | | | | | | [...] + | REFERENCE LAB | [address] | [place] [address] | [phone] | | [facility] | | | | + + + + + | REFERENCE LAB | [address] | [place] [address] | [phone] | | [facility] | | | | [...] + + | REFERENCE LAB | [address] [facility] | [place] [address] | [phone] | | [facility] | | | | + + + + + | REFERENCE LAB | [address] | [place] [address] | [phone] | | [facility] | | | | [...] + | REFERENCE LAB | [address] | [place] [address] | [phone] | | [facility] | | | | + + + + + | REFERENCE LAB | [address] | [place] [address] | [phone] | | [facility] | | | | [...] + + | REFERENCE LAB | [address] [facility] | [place] [address] | [phone] | | [facility] | | | | + + + + + | REFERENCE LAB | [address] | [place] [address] | [phone] | | [facility] | | | | [...] | [address] | [place] [address] | [phone] | | [facility] | | | | + + + + + | REFERENCE LAB | [address] [facility] | [place] [address] | [phone] | | [facility] | | | | [...] + | REFERENCE LAB | [address] | [place] [address] | [phone] | | [facility] | | | | + + + + + | REFERENCE LAB | [address] | [place] [address] | [phone] | | [facility] | | | | + + + + + documented in this encounter Visit Diagnoses Not on filedocumented in this encounter"
--- OUTSIDE RECORDS SUMMARY | ~2019-02-24 | XMS | Encounter Summary ---
Demographics + + + | Address | [address] | | | [place] [address] | + + + | Home Phone [...] | Organization | [facility] | | | [...] Team Providers + +------+ + | Care Risk Control Field Representative Name | Role | Phone | + +------+ + PCP | Unavailable | + +------+ + Encounter Details +--------+ + + + + | Date | Type | Department | Care Team | Description | +--------+ + + + + | 04/04/ | Hospital | [facility] | | | | 2008 - | Encounter | MED CTR CANCER | | | | | | CENTER [address] | | | | 04/21/ | | [place] | | | | 2008 | | [address] | | | | | | [phone] | | | +--------+ + + + [...] | | | | | [place] [address] | | | | | | [phone] | | | | | | | | +--------+---------+ + + + documented as of this encounter Visit Diagnoses Not on filedocumented in this encounter"
--- OUTSIDE RECORDS SUMMARY | ~2019-02-24 | XMS | Encounter Summary ---
Demographics + + + | Address | [address] | | | [place] [address] | + + + | Home Phone [...] [facility] | | | and [...] Providers + +------+ + | Care Community Engagement Manager Name | Role | Phone | [...] + + | 07/01/ | Office | [facility] | Jorje Rutledge | Prostate cancer | | 2016 | Visit | [address] | MD [address] | ([facility]) (Primary Dx); | | | | [place], [place] | [facility] | Preventative health | | | | [address] | [place] [address] | care | | | | [phone] | [phone] | | | | | | | [...] a patient of Dr. Mercedez Barkley in [place] for many years. He originally had a [...] SVT (supraventricular tachycardia) (01/2014); Depression; Prostate cancer ([facility]) (2007); COPD (chronic obstructive pulmonary disease) (); [...] PO) Take by mouth. 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 documented in th [...] | | | | | [place] [address] | | | | | | [phone] | | | | | | | [...] 12/16/2015 | | | | e | ([facility]) | (Approximate), | | | | | [...] CONF | e | 8:03 AM | ([facility]) | procedure are in the | | [...] 1.001 - 1.030 | | | | [place], | | | | | | [facility], [...]
--- OUTSIDE RECORDS SUMMARY | ~2019-02-24 | XMS | Encounter Summary ---
Demographics + + + | Address | [address] | | | [place] [address] | + + + | Home Phone [...] | Organization | [facility] | | | and [place] | [...] Team Providers + +------+ + | Care Dobie Worker Name | Role | Phone | + +------+ + | Parviz Brar DO | PCP | | + +------+ + Encounter Details +--------+ + + + + | Date | Type | Department | Care Team | Description | +--------+ + + + + | 06/27/ | Orders Only | [facility] [place] [facility] | Jorje Rutledge | Prostate cancer | | 2016 | | [address] | [address] | (HCC) (Primary Dx); | | | | [place] | [address] [facility] | History of prostate | | | | [address] | [place] [address] | cancer | | | | [phone] | [phone] | | | | | | | [...] [place] | | | | | | [place] [address] | | | | | | [phone] | | | | | | | | +--------+---------+ + + + documented as of this encounter Visit Diagnoses + + | Diagnosis | + + | Prostate cancer (HCC) - Primary Malignant neoplasm of prostate | + + | History of prostate cancer Personal history of malignant neoplasm of prostate | + + documented in this encounter"
--- OUTSIDE RECORDS SUMMARY | ~2019-02-24 | XMS | Encounter Summary ---
Demographics + + + | Address | [address] | | | [place] [address] | + + + | Home Phone [...] + | Organization | [facility] | | | and [place] | [...] Team Providers + +------+ + | Care Paint Specialist Name | Role | Phone | [...] Description | +--------+--------+ + + + | 12/27/ | Refill | [facility] | Jorje Rutledge | Medication Refill | | 2017 | | [address] | [address] | | | | | [place], [place] | [address] [facility] | | | | | [address] | [place] [address] | | | | | [phone] | [phone] | | | | | | | [...] | | | | | [place] [address] | | | | | | [phone] | | | | | | | | +--------+---------+ + + + documented as of this encounter Visit Diagnoses Not on filedocumented in this encounter"
--- OUTSIDE RECORDS SUMMARY | ~2019-02-24 | XMS | Encounter Summary ---
Demographics + + + | Address | [address] | | | [place] [address] | + + + | Home Phone | | + + + | Preferred Language | Unknown | + + + | Marital Status | | + + + | Sikh Affiliation | 1076 | + + + | Race | Unknown | + + + | Ethnic Group | Unknown | + + + Author + + + | Author | [facility] | | | and [place] | + + + | Organization | [facility] | | [...] Team Providers + +------+ + | Care Laceworker Name | Role | Phone | + +------+ + PCP | Unavailable | + +------+ + Encounter Details +--------+ + + + + | Date | Type | Department | Care Team | Description | +--------+ + + + + | 03/09/ | Hospital | [facility] | | | | 1994 | Encounter | MED CTR XRAY [address] | | | | | [address] | | | | | | [place] [address] | | | | | | [phone] | | | +--------+ + + + [...] | | | | | [place] [address] | | | | | | [phone] | | | | | | | | +--------+---------+ + + + documented as of this encounter Visit Diagnoses Not on filedocumented in this encounter"
--- OUTSIDE RECORDS SUMMARY | ~2019-02-24 | XMS | Encounter Summary ---
Demographics + + + | Address | [address] | | | [place] [address] | + + + | Home Phone | | + + + | Preferred Language | Unknown | + + + | Marital Status | | + + + | Christian Affiliation | PRE | + + + | Race | White | + + + | Ethnic Group | Not or | + + + Author + + + | Author | [facility] | + + + | Organization | [facility] | + + + | Address | Unknown | + + + | Phone | Unavailable | + + + Support + + +---------+ + | Name | Relationship | Address | Phone | + + +---------+ + | Andrez Lucas | ECON | Unknown | Unavailable | + + +---------+ + Care Team Providers + +------+ + | Care Geodetic Engineer Name | Role | Phone | [...] | | | [address] | [facility] [address] | | | | | | [place] | [place] | | | | | | Nikita [facility] | [place], [place] | | | | | | [facility] | [address] | | | | | | [place], [place] | Phone: | | | | | | [address] | [phone] | | | | | | Phone: | Fax: | | | | | | [phone] | [phone] | +--------+--------+ + + + + Encounter Details +--------+---------+ + + + | Date | Type | Department | Care Team | Description | +--------+---------+ + + + | 07/04/ | Office | Otolaryngology | Desiree Easton, | Epistaxis (Primary | | 2012 | Visit | Laryngology Services | MD | Dx) | | | | at [facility] [address] | | | | | | [place], | | | | | | [place] [address] | | | | | | [phone] | | | +--------+---------+ + + + [...] 07/04/2012 9:54 AM PDTThank you for choosing [facility] Department of Otolaryngology for your health care needs. If you need to speak to an ENT physician after normal business hours, please call [phone] and ask to have the ENT phys davey correctional maintenance technician paged. documented in this encounter Progress Notes Desiree Easton MD - 07/04/2012 10:08 AM PDTFormatting of this note might be different fr the original. PATIENT NAME: Diego Lucas [facility] MR#: [id number] : 1935 REFERRING PROVIDER: No Referring Provider Per Patient NO REFERRING PROVIDER PER PT PRIMARY CARE PROVIDER: Parviz Brar DO CLINIC: [facility] REASON FOR FOLLOW-UP: Chief Complaint Patient presents with Follow-up visit Nose bleed HPI: Diego Lucas is a 76 y.o. male who presents to the [facility] [...] post-operative visit. He has been using his [place] Spr ay as directed. He has had no further issues with bleeding. He was about to be released fr om the detention, but was held for some additional cardiac testing. He hopes to return [facility] [place] soon. PMHx: Past Medical History Diagnosis Date [...] severe pain. oxymetazoline 0.05 % Nasal Aerosol, [place] Instill 2 Sprays into each nostril every six hours as needed (Epistaxis). Use for only 3 days. polyethylene glycol 17 gram/dose Oral Powder Take 17 g by mouth once daily. sodium chloride 0.65 % Nasal Aerosol, [place] Instill 2 Sprays in nose every two [...] have recommended that he continue to use Somervell [place] 2-3 times daily. He may resume his usual physical activities at this time. 2. Follow up as needed. DESIREE EASTON MD documented in this e ncounter Plan of Treatment Not on filedocumented as of this encounter Visit Diagnoses + + | Diagnosis | + + | Epistaxis - Primary | + + documented in this encounter"
--- OUTSIDE RECORDS SUMMARY | ~2019-02-24 | XMS | Encounter Summary ---
Demographics + + + | Address | [address] | | | [place] [address] | + + + | Home Phone [...] Organization | [facility] | [...] Team Providers + +------+ + | Care Tie Presser Name | Role | Phone | + +------+ + PCP | Unavailable | + +------+ + Reason for Visit + + + | Reason | Comments | + + + | Appointment | | + + + Encounter Details +--------+ + + + + | Date | Type | Department | Care Team | Description | +--------+ + + + + | 03/07/ | Telephone | [facility] [place] | [place], | Appointment | | 2012 | | PULMONARY [address] | Becca Segura MD | | | | | [place], | | | | | | [place] [address] | | | | | | [phone] | | | +--------+ + + + [...] | | | | | [place] [address] | | | | | | [phone] | | | | | | | | +--------+---------+ + + + documented as of this encounter Visit Diagnoses Not on filedocumented in this encounter"
--- OUTSIDE RECORDS SUMMARY | ~2019-02-24 | XMS | Encounter Summary ---
Demographics + + + | Address | [address] | | | [place] [address] | + + + | Home Phone [...] | Organization | [facility] | | | and [place] | + + + | Address | [...] Team Providers + +------+ + | Care Mold Preparer Name | Role | Phone | + [...] Description | +--------+--------+ + + + | 08/04/ | Refill | [facility] [place] | Jorje Rutledge | Medication Refill | | 2016 | | [address] | [address] | | | | | [place], [place] | [address] [facility] | | | | | [address] | [place] [address] | | | | | [phone] | [phone] | | | | | | | [...] | | | | | [place] [address] | | | | | | [phone] | | | | | | | | +--------+---------+ + + + documented as of this encounter Visit Diagnoses Not on filedocumented in this encounter"
--- OUTSIDE RECORDS SUMMARY | ~2019-02-24 | XMS | Encounter Summary ---
Demographics + + + | Address | [address] | | | [place] [address] | + + + | Home Phone | | + + + | Preferred Language | Unknown | + + + | Marital Status | | + + + | Adventist Affiliation | 1076 | + + + | Race | Unknown | + + + | Ethnic Group | Unknown | + + + Author + + + | Author | [facility] | | | and [place] | + + + | Organization | [facility] | | | and [place] [...] Team Providers + +------+ + | Care Horse Shoer Name | Role | Phone | + [...] RN | obstructive | | | | [place], | | pulmonary disease) | | | | [place] [address] | | ([facility]) | | | | [phone] | | | +--------+ + + + [...] | | | | | [place] [address] | | | | | | [phone] | | | | | | | | +--------+---------+ + + + documented as of this encounter Visit Diagnoses + + | Diagnosis | + + | COPD (chronic obstructive pulmonary disease) (HCC) Chronic airway obstruction, not | | elsewhere classified | + + documented in this encounter"
--- OUTSIDE RECORDS SUMMARY | ~2019-02-24 | XMS | Encounter Summary ---
Demographics + + + | Address | [address] | | | [place] [address] | + + + | Home Phone | | + + + | Preferred Language | Unknown | + + + | Marital Status | | + + + | Buddhism Affiliation | 1076 | + + + | Race | Unknown | + + + | Ethnic Group | Unknown | + + + Author + + + | Author | [facility] | | | and [place] | + + + | Organization | [facility] [...] Team Providers + +------+ + | Care Disk Sharpener Name | Role | Phone | + [...] | Specialty | Gastroenterol | Diagnoses | Harri, | Harri, | | | Services | ogy | | Froylan Choi MD | Froylan Choi MD | | | Required | | Gastrointest | [address] [place], | | | | | inal | [place], [place] | [address] | | | | | hemorrhage, | [address] [place] | [place], | | | | | unspecified | [place], [place] | [place] [address] | | | | | gastrointest | [address] | Phone: | | | | | inal | Phone: | [phone] | | | | | hemorrhage | [phone] | Fax: | | | | | type | Fax: | [phone] | | | | | Procedures | [phone] | | | | | | HI GI IMAG | | | | | | | INTRALUMINAL | | | | | | | | | | | | | | ESOPHAGUS-IL | | | | | | | EUM W/I&R | | | +--------+ + + + + + Reason for Visit +--------+ + | Reason | Comments | +--------+ + | Other | request auth for SBCE (Pillcam) | +--------+ + Encounter Details +--------+ + + + + | Date | Type | Department | Care Team | Description | +--------+ + + + + | 10/01/ | Telephone | [facility] | Froylan Werner MD | Other (request auth | | 2016 | | GASTROENTEROLOGY | [address] [place], [place] | for SBCE (Pillcam)) | | | | [address] [place] | [address] [place] [facility] [place] | | | | | [address] [place] | [address] | | | | | [address] | | | | | | [phone] | | | +--------+ + + + [...] | | | | | [place] [address] | | | | | | [phone] | | | | | | | [...] Referral | e | hemorrhage, | starting 10/01/2016 | | (brendasky) | | | unspecified | until 10/01/2017 | | | | | gastrointestinal | | | | | | hemorrhage type | | + + +--------+ + + documented as of this encounter Visit Diagnoses + + | Diagnosis | + + | Gastrointestinal hemorrhage, unspecified gastrointestinal hemorrhage type - Primary | + + documented in this encounter"
--- OUTSIDE RECORDS SUMMARY | ~2019-02-24 | XMS | Encounter Summary ---
Demographics + + + | Address | [address] | | | [place] [address] | + + + | Home Phone | | + + + | Preferred Language | Unknown | + + + | Marital Status | | + + + | Yarsani Affiliation | 1076 | + + + | Race | Unknown | + + + | Ethnic Group | Unknown | + + + Author + + + | Author | [facility] | | | and [place] | + + + | Organization | [facility] | | | and [place] [...] Providers + +------+ + | Care Optical Worker Name | Role | Phone | + +------+ + PCP | Unavailable | + +------+ + Encounter Details +--------+ + + + + | Date | Type | Department | Care Team | Description | +--------+ + + + + | 08/22/ | Hospital | [facility] | | | | 2007 - | Encounter | MED CTR CANCER | | | | | | CENTER [address] | | | | 09/21/ | | [place] | | | | 2007 | | [address] | | | | | | [phone] | | | +--------+ + + + [...] | | | | | | [place] [address] | | | | | | [phone] | | | | | | | | +--------+---------+ + + + documented as of this encounter Visit Diagnoses Not on filedocumented in this encounter"
--- OUTSIDE RECORDS SUMMARY | ~2019-02-24 | XMS | Encounter Summary ---
Demographics + + + | Address | [address] | | | [place] [address] | + + + | Home Phone | | + + + | Preferred Language | Unknown | + + + | Marital Status | | + + + | Mosque Affiliation | 1076 | + + + | Race | Unknown | + + + | Ethnic Group | Unknown | + + + Author + + + | Author | [facility] | | | and [place] | + + + | Organization | [facility] | | | and [...] Team Providers + +------+ + | Care Radiology Tech Name | Role | Phone | [...] Segura MD | | | | | [place], | | | | | | [place] [address] | | | | | | [phone] | | | +--------+ + + + [...] | | | | | [place] [address] | | | | | | [phone] | | | | | | | | +--------+---------+ + + + documented as of this encounter Visit Diagnoses Not on filedocumented in this encounter"
--- OUTSIDE RECORDS SUMMARY | ~2019-02-24 | XMS | Encounter Summary ---
Demographics + + + | Address | [address] | | | [place] [address] | + + + | Home Phone | | + + + | Preferred Language | Unknown | + + + | Marital Status | | + + + | Gnosticism Affiliation | 1076 | + + + | Race | Unknown | + + + | Ethnic Group | Unknown | + + + Author + + + | Author | [facility] | | | and [place] | + + + | Organization | [facility] | | | and [place] [...] Team Providers + +------+ + | Care Electrical/Instrument Technician Name | Role | Phone | + +------+ + | Parviz Brar DO | PCP | | + +------+ + Encounter Details +--------+ + + + + | Date | Type | Department | Care Team | Description | +--------+ + + + + | 06/16/ | Hospital | [facility] | Conversion | Pain | | 2017 | Encounter | [address]VERSION [address] | Transaction, | | | | | [address] | Provider Unknown | | | | | [place], [place] | [phone] | | | | | [address] | | | | | | [phone] | | | +--------+ + + + [...] | | | | | [place] [address] | | | | | | [phone] | | | | | | | [...]
--- OUTSIDE RECORDS SUMMARY | ~2019-02-24 | XMS | Encounter Summary ---
Demographics + + + | Address | [address] | | | [place] [address] | + + + | Home Phone [...] | Organization | [facility] | | [...] Team Providers + +------+ + | Care Cloth Cutting Inspector Name | Role | Phone | + +------+ + | Parviz Brar DO | PCP | | + +------+ + Encounter Details +--------+ + + + + | Date | Type | Department | Care Team | Description | +--------+ + + + + | 06/16/ | Hospital | [facility] | Conversion | Pain | | 2017 | Encounter | CONVERSION [address] | Transaction, | | | | | [address] | Provider Unknown | | | | | [place], [place] | [phone] | | | | | [address] | | | | | | [phone] | | | +--------+ + + + [...] | | | | | [place] [address] | | | | | | [phone] | | | | | | | [...]
--- OUTSIDE RECORDS SUMMARY | ~2019-02-24 | XMS | Clinical Summary ---
Demographics + + + | Address | [address] | | | [place] [address] | + + + | Home Phone [...] | Organization | [facility] | | | and [...] Team Providers + +------+ + | Care System Development Manager Name | Role | Phone | [...] + + + | Overview: S/p XRT [facility] with Dr. Garza | | On Isabel [...] | | MD Tim | ([facility]) (Primary Dx); | | | | | [...] | | | | | | [place] [id number] | | | | | | [phone] | | | | | | | [...] 1.001 - 1.030 | | | | [place], | | | | | | [facility], [...] +--------+ +---------+--------+ | MEDICARE | MEDICA | [id number] | | [phone] | | Medica | | | RE | | 013-Pr | 5 | | re | | | PART A | | esent | | | | | | AND B | | | | | | + +--------+ +--------+ +---------+--------+ | [employer] | [place] | [id number] | | [phone] | | Indemn | | | OF | | 018-Pr | 0 | | ity | | | EYAK | | esent | | | | [...] | | al/Fam | | 1936 | [phone] | [place] [address] | | | leslie | | | 3 (Home) | | + +--------+ +--------+ + + Advance Directives + + + + + | Type | Date Recorded | Patient | Explanation | | | | Floor Installer | | + + + + + | Power of | | | | | Information Systems Coordinator | | | | + + + + + | Advance | 03/19/2014 5:21 | | POLST | | Directive | AM | | | + + + + +
--- OUTSIDE RECORDS SUMMARY | ~2019-02-24 | XMS | Encounter Summary ---
Demographics + + + | Address | [address] | | | [place] [address] | + + + | Home Phone | | + + + | Preferred Language | Unknown | + + + | Marital Status | | + + + | Cheondoism Affiliation | PRE | + + + | Race | White | + + + | Ethnic Group | Not or | + + + Author + + + | Author | [facility] | + + + | Organization | [facility] | + + + | Address | Unknown | + + + | Phone | Unavailable | + + + Support + + +---------+ + | Name | Relationship | Address | Phone | + + +---------+ + | Andrez Lucas | ECON | Unknown | Unavailable | + + +---------+ + Care Team Providers + +------+ + | Care Safety Grooving Machine Operator Name | Role | Phone [...] + + | 06/07/ | Emergency | [facility] Emergency | Taylor Deng MD | | | 2012 - | | Department [address] | [address] | | | | | [place] | [facility], | | | 06/08/ | | [facility] | [place] [address] | | | 2012 | | [place], [place] | [phone] | | | | | [address] | | | | | | [phone] | Benjie Cardona MD | | | | | | [address] | | | | | | [place], | | | | | | [place] [address] | | | | | | [phone] | | | | | | | | | | | | Sheeba Edwards, | | | | | | CONTINUITY COORDINATOR [address] | | | | | | [address] | | | | | | [place], [place] | | | | | | [address] | | | | | | [phone] | | | | | | | [...] on home O2, GERD, BPH, and HTN cesar ntjewell staying in the [facility] who presented to the ED for the [...] Mr. Lucas was discharged back to the [facility]. Discharge vitals: BP 131/76 | Pulse 100 [...] (25-50cells/HPF) (none) HYPOCHROMIA 1+ (10-25cells/HPF) (none) Disposition: [facility] Discharge Condition: stable Medications: Cephalexin 500 mg PO q 6 hours while nasal packing is in place. Instructions: 1. Activity:As tolerated 2. Diet:Prudent diet 3. Return to ED if symptoms worsen Follow-up: Follow-up in head/neck resident clinic on Wednesday06/13/2012 for nasal packing removal and re -evaluation. Sheeba BROWN Department of Emergency Medicine documented in th is encounter Discharge Instructions Instructions Sheeba Edwards FNP - 06/08/2012Formatting of this note might be differen t from the original. Thank you for choosing [facility] for your care. Please follow-up with the [...] Packing: After Your Visit", log into your [email or web address] account at [email or web address]. You can enter [id number] in the [employer] Library" search box. Not on [email or web address]? Review the Pelican Therapeuticshart section of your After Visit Summary for directions on ho w to sign up. [phone] Clinicient. Care instructions adapted under license by [facility]. This care instruction is for use with your licensed healthcar e professional. If you have questions about a medical condition or this instruction, always ask your healthcare professional. Clinicient disclaims any warranty or liabili ty for your use of this information. Content Version: 9.6.232154; Last Revised: April 06, 2011 Nosebleeds: After [...] "Nosebleeds: After Your Visit", log into your [email or web address] account at [email or web address]. You can enter S156 in the Selvz" search box. Not on [email or web address]? Review the [email or web address] section of your After Visit Summary for directions on ho w to sign up. [phone] Clinicient. Care instructions adapted under license by [facility]. This care instruction is for use with your licensed healthboldUnderline. llc e professional. If you have questions about a medical condition or this instruction, always ask your healthcare professional. Clinicient disclaims any warranty or liabili ty for your use of this information. Content Version: 9.6.157404; Last Revised: August 19, 2011 documented in [...] +---------+--------+ + documented as of this encounter Plan [...] Final automated differential report. Smear reviewed. | [facility] | | | LABORATORY | | | RAFAEL TYLER | + + + + + + + + | Performing | Address | City/State/Zipcode | Phone Number | | Organization | | | | + + + + + | [facility] | [address] | [place] [address] | | | NAYELI, RAFAEL | [address] [...] | + + + + + | [facility] | [address] | [place] [address] | | | SERVICES, CORE | [address] | | | + + + + + CHEM 8 W/H&HYANG (06/07/2012 9:56 PM PDT) + +---------+ + [...] + | [facility] | [address] | [place], [place] | | | [facility] | [address] | [address] | | | TESTS | | | [...] | + + + + + | [facility] | [address] | [place] [address] | | | SERVICES, CORE | PARK [...] | | | | ONCE, 1 dose, 06/07/12 at 2200 | | PM PDT [...]
--- OUTSIDE RECORDS SUMMARY | ~2019-02-24 | XMS | Encounter Summary ---
Demographics + + + | Address | [address] | | | [place] [address] | + + + | Home Phone | | + + + | Preferred Language | Unknown | + + + | Marital Status | | + + + | Restorationism Affiliation | 1076 | + + + | Race | Unknown | + + + | Ethnic Group | Unknown | + + + Author + + + | Author | [facility] | | | and [place] | + + + | Organization | [facility] | | | and [...] Team Providers + +------+ + | Care Electrical Machinist Name | Role | Phone | + [...] 2018 | | GASTROENTEROLOGY | [address] [place] | | | | | [address] [place] | [address] [place], [place] | | | | | [address] [place], [place] | [address] | | | | | [address] | | | | | | [phone] | | | +--------+ + + + [...] | | | | | [place] [address] | | | | | | [phone] | | | | | | | | +--------+---------+ + + + documented as of this encounter Visit Diagnoses Not on filedocumented in this encounter"
--- OUTSIDE RECORDS SUMMARY | ~2019-02-24 | XMS | Encounter Summary ---
Demographics + + + | Address | [address] | | | [place] [address] | + + + | Home Phone [...] | Organization | [facility] | | | and [place] [...] Team Providers + +------+ + | Care Kick Press Operator Name | Role | Phone | [...] | unspecified | [place], [place] | [place] [address] | | | | | gastrointest | [address] | Phone: | | | | | inal | Phone: | [phone] | | | | | hemorrhage | [phone] | Fax: | | | | | type | Fax: | [phone] | | | | | Procedures | [phone] | | | | | | [place] [facility] | | | | | [...] | | | | | unspecified | [place] | [place] | | | | | gastrointest | [address] | [address] | | | | | inal | Phone: | Phone: | | | | | hemorrhage | [phone] | [phone] | | | | | type | Fax: | Fax: | | | | | Procedures | [phone] | [phone] | | | | | CT | [...] | | | ogy | | Parviz Rodriguez, | Froylan Rodriguez MD | | | | | Gastrointest | DO [address] | [address], | | | | | inal | [address] [place] | [address] | | | | | hemorrhage, | [place], [place] | [place], | | | | | unspecified | [address] | [place] [address] | | | | | Procedures | Phone: | Phone: | | | | | Office | [phone] | [phone] | | | | | Visit | Fax: | Fax: | | | | | | [phone] | [phone] | +--------+--------+ + + + + Encounter Details +--------+---------+ + + + | Date | Type | Department | Care Team | Description | +--------+---------+ + + + | 04/21/ | Office | [facility] | Marc Odell | Gastrointestinal | | 2018 | Visit | GASTROENTEROLOGY | MD Noe [address] | hemorrhage, | | | | [address] [place] | [place] | unspecified | | | | [address] [place] | [place] [address] | gastrointestinal | | | | [address] | [phone] | hemorrhage type | | | | [phone] | | (Primary Dx); | | | [...] Office Visit: 04/22/17 Referring Provider: Parviz Brar [address] [place] [address] [place] [address] Providing Physician: Marc Odell MD. Chief Complaint: Other (gastrointestinal hemorrage) History of Present Illness Diego Lucas is a 81 y.o. male with a history of prostate cancer, CAD, COPD, and recur rent GI hemorrhage who presents for further evaluation of his recurrent GI bleeds. His most recent bleed was in February 2017, for which he was hospitalized at [facility]. Roberto Carlos rodriguez had developed painless melena, and presented to [...] September, when he wasn't having melena. [facility]. He had another colon[facility] in [...] Clavicle fracture COPD (chronic obstructive pulmonary disease) (HCC) DR BILLY ARAUJO Depression Dermatophytosis tinea capitis [...] with upper GI bleed Pneumonia 05/2012 hospitalized [facility] Prostate cancer (HCC) 2007 s/p radiation treatment and on hormonal treatment with Lupron; DR JULIAN IN [place] Pulmonary nodules Seborrheic dermatitis of scalp Shoulder fracture 02/2012 Supplemental oxygen dependent 02@2L AT NIGHT SVT (supraventricular tachycardia) (HCC) 01/[address] Wilder for ablation TIA (transient ischemic attack) SEVERAL. LAST TIME 2012.NO RESIDUAL; CT SCAN/ ANGIO IN PAST Vasovagal syncope Past Surgical History Past Surgical History: Procedure Laterality Date ABLATION OF DYSRHYTHMIC FOCUS 03/19/2014 Laterality: N/A; Surgeon: Jennifer Wilder MD; Location: [facility] ELECTROPHYSIOLOGY ANGIOGRAM EARLY 1979 FOR TIA HISTORY APPENDECTOMY CATARACT REMOVAL 03/2013 Left CATARACT REMOVAL WITH IMPLANT 11/2011 Right Catheter ablation [place] COLONOSCOPY 2016 [facility]. Arellano COLONOSCOPY 03/18/2017 Postoperative Diagnosis: Minimal to [...] No other animal exposures. Grew up in [place]. Then lived in [place]. Then moved to [place]. In the service lived [facility] and [place]. No recent travel. Allergies Allergies Allergen Reactions Ipratropium [facility] [place] [facility] Other (See Comments) Reaction: Cough Penicillins [...] g by mouth Daily. Respiratory Therapy Supplies [facility] Please provide an O2 concentrator while Diego [...] bowel lesion, this can be done in [place] -if this is negative, then I would [...] or fail to improve. CC: Parviz Brar [address] [facility] [place] [address] [place] [address] Portions of this chart may have been created with Appland voice recognition software. Occasi onal wrong-word or [...] | | | | | [place] [address] | | | | | | [phone] | | | | | | | [...]
--- OUTSIDE RECORDS SUMMARY | ~2019-02-24 | XMS | Encounter Summary ---
Demographics + + + | Address | [address] | | | [place] [address] | + + + | Home Phone | | + + + | Preferred Language | Unknown | + + + | Marital Status | | + + + | Amish Affiliation | 1076 | + + + | Race | Unknown | + + + | Ethnic Group | Unknown | + + + Author + + + | Author | [facility] | | | and [place] | + + + | Organization | [facility] | | | and [place] [...] Team Providers + +------+ + | Care Director Of Marketing Google Performance Ads Name | Role | Phone | + [...] + + | [facility]01/ | [facility] [place] | [place], | Panlobular emphysema | | 2016 | Visit | PULMONARY [address] | Billy Segura MD | ([facility]) (Primary Dx); | | | | [place], | | Nocturnal hypoxemia | | | | [place] [address] | | due to emphysema | | | | [phone] | | ([facility]); Pulmonary | | | | | | nodules | +--------+---------+ + + + Social History [...] + + + | Blood Pressure | 120/70 | 07/02/2015 2:27 PM | | | | | PDT | | + + + + + | Pulse | 84 | 07/02/2015 2:27 PM | | | | | PDT | | + + + + + | Temperature | - | - | | + + + + + | Respiratory Rate | - | - | | + + + + + | Oxygen Saturation | 95% | 07/02/2015 2:27 PM | | | | | PDT | | + + + + + | Inhaled Oxygen | - | - | | | Concentration | | | | + + + + + | Weight | 80.2 kg (176 lb 11.2 | 07/02/2015 2:27 PM | | | | oz) | PDT | | + + + + + | Height | 177.8 cm (5' 10") | 07/02/2015 2:27 PM | | | | | PDT | | + + + + + | Body Mass Index | 25.35 | 07/02/2015 2:27 PM | | | | | PDT | | + + + + + documented in this encounter Patient Instructions Patient Instructions Billy Araujo MD - 07/02/2015 3:24 PM PDTNo changes today. S sully on Breo once daily. Use the Atrovent as needed. I will refill this. documented in this encounter Progress Notes Billy Araujo MD - 07/02/2015 2:34 PM PDTFormatting of this note might be differe nt from the original. Pulmonary Follow Up HPI Diego Lucas is a 79 y.o. male patient of Parviz Brar here today for follow up o f COPD. At their last visit, we had continued him on Breo and changed the Atrovent to as needed. He was able to establish with Dr. Rutledge (much appreciated) and is now on Lupron every 6 month s. Since their last visit he feels like he has been doing pretty well. He feels like the [place] o is working well for him. He has not had any acute illnesses. He is currently on a regimen of Breo 100 mcg dose, 1 inhalation daily. He does feel like t his medication regimen is working for them. Currently he is using his rescue inhaler, Atrove nt, 1 time a week or so. He returns today for routine follow up. Currently he is able to walk 1/2 mile or more at his own pace on level ground, though he ma inly has been walking hills. He is exercising regularly, out walking a lot in [facility]. He is running for [employer] in [place]. He has been coughing a little more this summer, he thinks because of allergies. He has been bringing up yellow phlegm. He has not had any recent hemoptysis. He has had a runny nose re cently. He has been evaluated for nocturnal oxygen and does use it. He is currently on 2 LPM at [facility]. He reports good compliance. He restested about 1 year ago, and spent 2 minutes 38 second s less than 88%. Past Medical History Past Medical History Diagnosis Date Peptic ulcer disease with upper GI bleed Benign prostatic hypertrophy Osteoarthritis Heartburn Pulmonary nodules Shoulder fracture 02/2012 Foot fracture 02/2012 SVT (supraventricular tachycardia) 01/[address] Wilder for ablation Depression Prostate cancer (HCC) 2007 s/p radiation treatment and on hormonal treatment with Lupron; DR JULIAN IN [place] COPD (chronic obstructive pulmonary disease) ([facility]) DR BILLY ARAUJO Pneumonia 05/2012 hospitalized [facility] Heart murmur DR MARIAA OLIVERA Cataracts, bilateral [...] Laterality: N/A; Surgeon: Jennifer Wilder MD; Location: [facility] ELECTROPHYSIOLOGY Egd and colonoscopy 02/06/2015 Dr. 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 Also expo sed to asbestos. His grandfather had tuberculosis, he is not sure if he has been tested. No pets at home. No other animal exposures. Grew up in [place]. Then lived in [place]. Then moved to [place]. In the service lived i [facility] and [place]. No recent travel. Allergies: Allergies Allergen Reactions [...] or Shortness of Breath. 1 Inhaler 11 [DISCONTINUED] albuterol 90 mcg/puff inhaler Inhale 2 puffs into the lungs every 6 hour s as needed for Wheezing. amLODIPine (NORVASC) 5 mg tablet Take one tablet by mouth once daily. [DISCONTINUED] Ascorbic Acid (VITAMIN C) 250 MG tablet Take 250 mg by mouth Daily. ATROVENT HFA 17 MCG/ACT inhaler INHALE TWO PUFFS BY MOUTH INTO THE LUNGS FOUR TIMES LATRELL LY 1 Inhaler 5 cholecalciferol (VITAMIN D-3) 1,000 units capsule Take 1,000 Units by mouth nightly. [DISCONTINUED] Copper Gluconate (COPPER CAPS PO) Take 1 mg by mouth. [facility] LUTEIN PO Take by mouth. [DISCONTINUED] Fe Bisgly-Vit C-Vit B12-FA (GENTLE IRON) 28-60-0.008-0.4 MG CAPS Take 1 capsule by mouth Daily. ferrous sulfate 325 mg [...] PO) Take by mouth. Respiratory Therapy Supplies [facility] Please provide an O2 concentrator while Diego is visiti for nocturnal O2 at 2 l/m. Dx: COPD, Nocturnal hypoxemia 1 each 0 tamsulosin (FLOMAX) 0.4 mg CAPS Take 2 capsules by mouth nightly. OCCASIONALLY TAKES 2 TABS NEEDED 60 capsule 11 [DISCONTINUED] terbinafine (LAMISIL) 250 MG tablet 0 venlafaxine (EFFEXOR XR) 37.5 mg 24 hr capsule Take 37.5 mg by mouth Daily. zolpidem (AMBIEN) 5 mg tablet Take 5 mg by mouth nightly as needed. SLEEP Facility-Administered Encounter Medications as of 07/02/2015 Medication Dose Route Frequency Provider Last Rate Last Dose [COMPLETED] leuprolide (LUPRON DEPOT-6 MONTH) injection 45 mg 45 mg Intramuscular Once Gene Tim Rutledge MD 45 mg at 07/02/15 0836 Review of Systems: General: []Weight loss/gain (over [...] urine []Frequent urination at night []Burning/painful urination [x]Difficulty w ith urination - on Flomax therapy Objective BP 120/70 mmHg | Pulse 84 | Ht 1.778 m (5' 10") | Wt 80.151 kg (176 lb 11.2 oz) | BMI 25.35 kg/m2 | SpO2 95% RA General Appearance: Alert, cooperative, no distress, appears stated age Head: Normocephalic, without obvious abnormality, atraumatic Eyes: PERRL, conjunctiva clear, no scleral icterus, EOM's intact Ears: Normal TM's, external auditory canals, normal acuity Nose: Nares normal, septum midline, mucosa normal Mouth: No oral lesions or exudate Neck: Supple, symmetrical, no adenopathy Lungs: No accessory muscle use, breath sounds are diminished bilaterally with some prolon gation of the expiratory phase, no wheezes, crackles [...] DOSE (ADULT) 04/22/2013 Assessment ICD-10-CM ICD-9-CM 1. Panlobular emphysema (HCC) J43.1 492.8 Doing well on Breo. He does not use Atrovent, and notes he is not certain how effective it is, though before this was his main medication. I suggested that if he finds resting works just as well, it is fine to do that, but I prefer h e have an Atrovent inhaler to use as needed in case of acute illness, etc, as a back up. 2. 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 G47.36 327.26 3. Pulmonary nodules R91.8 793.19 These had been stable for 2 years and do not require furt her routine follow up. Plan 1.Continue on Breo 100 mcg 1 inhalation daily. 2.Continue on Atrovent as needed, I did refill this today. 3.Continue on oxygen at 2L with sleep. He was advised to call if new pulmonary symptoms were to develop. Return to clinic as needed. He prefers to follow up with Dr. Brar for now as he is stabl e and be referred back if something new comes up given my upcoming departure. CC: Parviz Brar Portions of this report were transcribed using voice recognition software. Every effort wa s made to ensure accuracy; however, inadvertent computerized superintendent track errors may be pre sent. 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
--- OUTSIDE RECORDS SUMMARY | ~2019-02-24 | XMS | Encounter Summary ---
Demographics + + + | Address | [address] | | | [place] [address] | + + + | Home Phone | | + + + | Preferred Language | Unknown | + + + | Marital Status | | + + + | Pentecostal Affiliation | 1076 | + + + | Race | Unknown | + + + | Ethnic Group | Unknown | + + + Author + + + | Author | [facility] | | | and [place] | + + + | Organization | [facility] | [...] Providers + +------+ + | Care Assistant Purchasing Manager Name | Role | Phone | + +------+ + PCP | Unavailable | + +------+ + Encounter Details +--------+ + + + + | Date | Type | Department | Care Team | Description | +--------+ + + + + | 12/01/ | Abstract | [place] [facility] | [place], | | | 2011 | | Conversion Location | [place] [address] | | | | | [phone] | [place] | | | | | | [phone] | | | | | | | [...] | | | | | [place] [address] | | | | | | [phone] | | | | | | | | +--------+---------+ + + + documented as of this encounter Visit Diagnoses Not on filedocumented in this encounter"
--- OUTSIDE RECORDS SUMMARY | ~2019-02-24 | XMS | Encounter Summary ---
Demographics + + + | Address | [address] | | | [place] [address] | + + + | Home Phone [...] | Organization | [facility] | | | and [...] Team Providers + +------+ + | Care Strand Forming Machine Operator Name | Role | Phone | + +------+ + PCP | Unavailable | + +------+ + Encounter Details +--------+ + + + + | Date | Type | Department | Care Team | Description | +--------+ + + + + | 08/03/ | Hospital | [facility] | | | | 2008 - | Encounter | [facility] | | | | | | CENTER [address] | | | | 08/21/ | | [place] | | | | 2008 | | [address] | | | | | | [phone] | | | +--------+ + + + [...] | | | | | | [place] [address] | | | | | | [phone] | | | | | | | | +--------+---------+ + + + documented as of this encounter Visit Diagnoses Not on filedocumented in this encounter"
--- OUTSIDE RECORDS SUMMARY | ~2019-02-24 | XMS | Encounter Summary ---
Demographics + + + | Address | [address] | | | [place] [address] | + + + | Home Phone [...] | Organization | [facility] | [...] Team Providers + +------+ + | Care Survey Instrument Operator Name | Role | Phone | [...] | | | | | | [place] [address] | | | | | | [phone] | | | +--------+ + + + [...] | | | | | [place] [address] | | | | | | [phone] | | | | | | | | +--------+---------+ + + + documented as of this encounter Visit Diagnoses Not on filedocumented in this encounter"
--- OUTSIDE RECORDS SUMMARY | ~2019-02-24 | XMS | Encounter Summary ---
Demographics + + + | Address | [address] | | | [place] [address] | + + + | Home Phone | | + + + | Preferred Language | Unknown | + + + | Marital Status | | + + + | Taoism Affiliation | PRE | + + + | Race | White | + + + | Ethnic Group | Not or | + + + Author + + + | Author | [facility] | + + + | Organization | [facility] | + + + | Address | Unknown | + + + | Phone | Unavailable | + + + Support + + +---------+ + | Name | Relationship | Address | Phone | + + +---------+ + | Andrez Lucas | ECON | Unknown | Unavailable | + + +---------+ + Care Team Providers + +------+ + | Care Plant Floor Automation Manager Name | Role | Phone | [...] | | 2012 | Event | [facility] | [address] | | | | | [facility] | [facility], | | | | | [facility] | [place] [address] | | | | | Desk Located on the | [phone] | | | | | 9th floor | | | | | | [place], [place] | | | | | | [address] | | | +--------+ + + + [...] | | 1 | Quick Note | care tech reports having used 200mL irrigation. Suction | [...]
--- OUTSIDE RECORDS SUMMARY | ~2019-02-24 | XMS | Encounter Summary ---
Demographics + + + | Address | [address] | | | [place] [address] | + + + | Home Phone [...] | Author | [facility] | | | and [place] | + + + | Organization | [facility] | | [...] Team Providers + +------+ + | Care Accounting Methods Analyst Name | Role | Phone | + +------+ + | Jason Read | PCP | | | MD | | | + +------+ + Encounter Details +--------+---------+ + + + | Date | Type | Department | Care Team | Description | +--------+---------+ + + + | 12/14/ | Office | [facility] | Jorje Rutledge | Prostate cancer | | 2019 | Visit | [address] | MD [address] | ([facility]) (Primary Dx); | | | | [place], [place] | [facility] | Preventative health | | | | [address] | [place] [address] | care | | | | [phone] | [phone] | | | | | | | [...] encounter Progress Notes Jorje Rutledge MD - 12/14/2018 9:45 AM PDTFormatting of this note might be differen t from the original. Diego is a 83 y.o. male patient of Jason Read MD being seen today for a follow up fo r prostate cancer. 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 He was initially treated by Dr. Garza, with radiation therapy, and radiation ADT for 1-1/2 years. His PSA soy was 0.01. Since that time, he has been treated with intermittent Lupron therapy, as he has had diffic ulties with hot flashes. Last November, Diego had a PSA of 7.17, and was started back on intermittent hormone therapy. He has had two 6-month Lupron shots, and his PSA has remained low at 0.681 recently. His weight is stable, and he does have moderate bladder irritative and obstructive symptoms , with an AUA symptom score of 18. He has tamsulosin, but rarely uses it. His urinalysis t tl is quite clear. We discussed the possibility of a drug holiday versus continued Lupron therapy. He would l bryan to stop Lupron for the time being, and follow-up on a regular basis. Past Medical History He has a past medical history of Actinic keratosis of scalp, Anemia, Benign prostatic hyper trophy, Bereavement without complication, C. difficile enteritis (2012), CAD (coronary arter y disease), Cataracts, bilateral, Clavicle fracture, COPD (chronic obstructive pulmonary dis ease) ([facility]), Depression, Dermatophytosis tinea capitis, Diverticulosis (01/2015), Essential hypertension, Foot fracture (02/2012), Gastritis (01/2015), GI bleed (01/2015), Heart murmur, Heartburn, Hiatal hernia (01/2015), History of rectal bleeding, Hypoxia, Insomnia, Internal bleeding (2017), Iron deficiency anemia, Kidney stone (2004), Lumbar disc herniation, Migra marcelino, Mood disorder ([facility]) of unknown (axis III) etiology, Nocturnal hypoxia, Osteoarthritis, Peptic ulcer disease, Pneumonia (05/2012), Prostate cancer ([facility]) (2007), Pulmonary nodules, Seborrheic dermatitis of scalp, Shoulder fracture (02/2012), Supplemental oxygen dependent, S VT (supraventricular tachycardia) ([facility]) (01/2014), TIA (transient ischemic attack), and Vaso vagal syncope. Past Surgical History He has a [...] He reports that he quit smoking about 9 years ago. His smoking use included cigarettes and pipe. He has a 6.00 pack-year smoking history. He has never used smokeless tobacco. He repor ts that he does not drink alcohol or use drugs. Allergies Allergen Reactions Penicillins Medications: Outpatient Encounter Medications as of 12/14/2018 Medication Sig Dispense Refill albuterol (PROAIR HFA) 90 mcg/puff inhaler Inhale 2 puffs into the lungs every 6 hours as needed for Wheezing or Shortness of Breath. (Patient not taking: Reported on 12/14/2018) 1 Inhaler 11 albuterol 2.5 mg/3 mL nebulizer solution Take 2.5 mg by nebulization 2 times daily. amLODIPine (NORVASC) 10 MG tablet amLODIPine (NORVASC) 5 mg tablet Take one tablet by mouth once daily. (Patient not taki ng: Reported on 12/14/2018) ascorbic acid (VITAMIN C) 250 MG tablet Take by mouth. benzonatate (TESSALON) 100 mg capsule Calcium Carb-Cholecalciferol (CALCIUM-VITAMIN D3) 600-400 MG-UNIT TABS [...] powder Take by mouth. Respiratory Therapy Supplies [facility] Please provide an O2 concentrator while Diego [...] facility-administered encounter medications on file as of 12/14/2018. IPSS (International Prostate Symptom Score) 0=0 - Not at All 1=1 - Less than 1 in 5 times 2=2 - Less than half the time 3=3 - About half the time 4=4 - More than half the time 5=5 - Almost alwyas IPSS (INTERNATIONAL PROSTATE SYMPTOM SCORE) 08/31/2017 12/14/2018 1. Incomplete Emptying - How often have you had the sensation of not emptying your bladder? 2 3 2. Frequency - How often have you had to urinate less than every two hours? 3 3 3. Intermittency - How often have you found you stopped and started again several times whe n you urinated? 3 3 4. Urgency - How often have you found it difficult to postpone urination? 2 3 5. Weak Stream - How often have you had a weak urinary stream? 3 2 6. Straining - How often have you had to strain to start urination? 2 2 7. Nocturia - How many times did you typically get up at night to urinate? 2 2 Total: 17 18 Quality of Life Due to Urinary Symptoms 0=0 - Delighted 1=1 - Pleased 2=2 - Mostly satisfied 3=3 - Mixed 4=4 - Mostly dissatisfied 5=5 - Unhappy 6=6 - Terrible QUALITY OF LIFE (URINARY) 08/31/2017 12/14/2018 If you were to spend the rest of your life with your urinary condition just the way it is n ow, how would you feel about that? 2 2 PHYSICAL EXAM Vitals: BP 120/60 | Pulse 64 | Resp 17 | Ht 1.778 m (5' 10") | Wt 73.3 kg (161 lb 9.6 o z) | BMI 23.19 kg/m General: Awake, alert, in no acute distress. Speech is fluent. Appears to be stated age. Lungs: Normal respiratory effort, no wheezing, no stridor, no tachypnea. Abdomen: Soft, nontender. Extremities: Non-edematous. Neuro: Awake, alert, oriented. Psychiatric: Mood and affect are normal. Normal judgment. Skin: Warm and dry, no erythematous rash. Genitalia: No lesion. Normal in appearance. Urethral meatus is normal in caliber. Scrotum is supple and nonerythematous. Scrotal contents are benign. Rectal: No mass, normal sphincter tone. Prostate gland, minimal tissue present DIAGNOSTIC DATA: Urinalysis is negative for blood, nitrites, and leukocyte esterase. Lab Results Component Value Date CREA 0.94 03/19/2014 BUN 16 03/19/2014 NA 139 03/19/2014 K 3.9 03/19/2014 CL 109 03/19/2014 CO2 24 03/19/2014 PSA Date Results 12/12/18 0.681 [facility] 11/25/17 7.17 [facility] 08/26/17 4.44 05/28/17 2.56 04/28/17 1.49 02/27/17 1.27 12/28/15 0.247 06/29/15 0.217 04/04/15 3.39 01/04/2015 5.65 09/25/14 4.57 11/2013 0.128 07/2013 5.38 10/2012 2.5 08/2011 0.0172 04/2011 1.32 06/2007 13.9 IMPRESSION: Stage T2c to T3 Gabino 4+3 = 7 adenocarcinoma the prostate, status post rad iation in 2007 with post radiation ad juvant ADT 1.5 years Post radiation PSA recurrence with i ntermittent hormone ablation since 2013, last Lupron was given in May 2018, doing well Mild bladder outlet obstruction, i mproved with as needed tamsulosin PLAN: Diego continues to tolerate his antiandrogen therapy with moderate hot flash symptoms, but otherwise no significant problems. He has requested to hold on his Lupron at this time, since his PSA is quite low, and reevaluate every 3 months. We will set him up for lab test s in 3 months, with return appointment, to discuss further Lupron therapy. Diego is instructed to resume his usual and customary care with his primary care provider. I asked Diego to notify me if there were any difficulties voiding, or UTI symptoms, or flank pain, or for any questions or concerns whatsoever. This document was generated in part using [employer] voice recognition software. Although ever y effort is made to edit the content, secretarial stenographer errors may occur. Occasional wrong word or [...] | | | | | | [place] [address] | | | | | | [phone] | | | | | | | | +--------+---------+ + + + + +------+--------+ + + | Name | Type | Priori | Associated Diagnoses | Order Schedule | | | | ty | | | + +------+--------+ + + | Comprehensive | Lab | Routin | Preventative | 1 Occurrences | | Metabolic Panel | | e | health care | starting 12/14/2018 | | | | | Prostate cancer | until 12/15/2019 | | | | | (HCC) | | + +------+--------+ + + | Testosterone, Total | Lab | Routin | Preventative | 1 Occurrences | | | | e | health care | starting 12/14/2018 | | | | | Prostate cancer | until 12/15/2019 | | | | | (HCC) | | + +------+--------+ + + | PSA, Diagnostic | Lab | Routin | Preventative | 1 Occurrences | | | | e | health care | starting 12/14/2018 | | | | | Prostate cancer | until 12/15/2019 | | | | | (HCC) | [...] documented in this encounter Results POCT Urinalysis (12/14/2018 9:32 AM PDT) [...] 1.001 - 1.030 | | | | [place], | | | | | | UA, [...]
--- OUTSIDE RECORDS SUMMARY | ~2019-02-24 | XMS | Encounter Summary ---
Demographics + + + | Address | [address] | | | [place] [address] | + + + | Home Phone [...] Organization | [facility] | | | and [place] [...] Team Providers + +------+ + | Care Wine Manager Name | Role | Phone | + +------+ + PCP | Unavailable | + +------+ + Reason for Referral Diagnostic/Screening (Routine) +--------+--------+ + + + + | Status | Reason | Specialty | Diagnoses / | Referred By | Referred To | | | | | Procedures | Contact | Contact | +--------+--------+ + + + + | Closed | | Radiology | Diagnoses | | [facility] | | | | | Solitary | [place], | Imaging [address] | | | | | pulmonary | Becca B, | [address] | | | | | nodule | MD [address] [place] | | | | | Procedures | [address] | [place], [place] | | | | | CT Chest wo | [place], | [address] | | | | | Contrast | [place] [address] | Phone: | | | | | | | [phone] | | | | | | | Fax: | | | | | | | [phone] | +--------+--------+ + + + + Encounter Details +--------+ + + + + | Date | Type | Department | Care Team | Description | +--------+ + + + + | 02/16/ | Orders Only | [facility] [place] | [place], | Solitary pulmonary | | 2011 | | PULMONARY [address] | Becca B, MD | nodule (Primary Dx) | | | | [place], | | | | | | [place] [address] | | | | | | [phone] | | | +--------+ + + + [...] | | | | | [place] [address] | | | | | | [phone] | | | | | | | | +--------+---------+ + + + documented as of this encounter Results CT Chest wo Contrast (09/06/2012 1:47 PM PDT) + + | Specimen | + + | | + + + + + | Narrative | Performed At | + + + | [facility] | [facility] | | Department [address] [place] [address] [facility] | | [ rep ct [address]] [ rep [facility] | | st zip] Signed | - IMAGING | | | | | Patient Name: OLGA LUCAS Physician: | | | MAGDA. : 1935 Age: 76 Sex: M Unit #: [id number] | | | Exam Date: 09/06/12 Location: [facility] [place] [place] | | | Report #: [id number] Page: | | | %(RAD)RES..mtdd.print.filter("pg") of %(RAD) | | | RES..mtdd.print.filter("tpg") | | | | | | Accession Number: [id number] | | | CT CHEST WITHOUT CONTRAST CLINICAL HISTORY: FOLLOWUP | | | PULMONARY NODULES. TECHNIQUE: Axial images were obtained | | | from thoracic inlet to upper abdomen without the use of contrast. | | | COMPARISON: September 07, 2009. FINDINGS: Severe | | | emphysematous changes are again. These are more prominent in the upper | | | lobes with lucent air-spaces with and without rose, typical for | | | centrilobular emphysema. The left upper lobe however shows a | | | decrease in size and volume when compared to prior studies. Centrally, | | | strand-like density is present within the left upper lobe, typical | | | for scarring or atelectatic change. More defined bulla and blebs are | | | now present in the left upper lobe. There has been interval | | | development of a large, very suspicious mass lesion in the posterior | | | left lower lobe. This has cross-sectional measurements of | | | approximately 4 cm. This has developed at the location of two tiny | | | nodules on the prior study. In contrast, a second pleural-based nodule | | | of the posterior left lower lobe measures 8 mm in size and is | | | unchanged from the prior study. An additional 4 mm nodule in the | | | superior segment of the left lower lobe is also unchanged. No new or | | | enlarging nodules are present in the left upper lobe. In | | | the right upper lobe, just anterior to the major fissure a new, | | | spiculated 11 mm nodule is seen [ image 64, series 4] along with a | | | second new, bilobed nodule in a similar location on image 68, series | | | 4. Some basilar atelectatic change is also seen in the posterior | | | right lower lobe, but no other right lower lobe defined nodules are | | | present. There is a stable 1 cm pleural-based nodule against the | | | anterior chest wall, in the right middle lobe. As noted on prior | | | examinations, the bronchi of both lower lobes and left upper lobe | | | are ectatic. There is no effusion. Small, 8 mm pretracheal | | | lymph nodes are seen, similar to prior. Hilar adenopathy is more | | | difficult to assess in the absence of contrast, but the left hilum | | | appears somewhat bulky. There are stable small [ 8 mm] subcarinal | | | nodes. A stable 13 mm low density is seen in the posterior | | | right lobe of the liver, with typical appearance of hepatic cyst. A | | | second unchanged 1 cm low density lesion is present in the anterior | | | segment of the right lobe. No other definite hepatic lesions are | | | seen. Adrenal glands appear normal. No other upper abdominal | | | abnormalities are noted. There are no bony or body wall abnormalities. | | | IMPRESSION: 1. SEVERE CENTRILOBULAR EMPHYSEMA, WITH | | | INTERVAL VOLUME LOSS OF THE LEFT UPPER LOBE. THIS REGION SHOWS | | | CENTRAL SCARRING AND/OR ATELECTASIS. A DEFINITE OBSTRUCTING LESION IS | | | NOT SEEN. 2. INTERVAL DEVELOPMENT OF A LARGE, VERY | | | SUSPICIOUS-APPEARING 4 CM MASS IN THE POSTERIOR LEFT LOWER LOBE. | | | THERE ARE ALSO AT LEAST TWO NEW NODULES IN THE POSTERIOR PORTIONS OF | | | THE RIGHT UPPER LOBE, WHICH ARE ALSO SUSPICIOUS. SEVERAL OTHER | | | PULMONARY NODULES, WHICH HAVE BEEN IN SURVEILLANCE, REMAIN | | | UNCHANGED. 3. STABLE BRONCHIECTASIS. 4. STABLE | | | SMALL HYPODENSE LESIONS IN THE LIVER WITH TYPICAL APPEARANCE OF CYSTS. | | | Dictated Date/Time: 09/06/2012 13:47 Transcribed | | | Date/Time: 09/06/2012 16:10 Material Worker: [email or web address] | | | <<Signature on File>> | | | | | | Gurdeep Diaz MD09/07/12 0729 <Electronically signed by | | | Gurdeep Diaz MD> Gurdeep Diaz MD 09/06/12 | | | 1347 Material Worker: Billowby Cpuhvwofgdizy34/16/13 1610 | | | Becca Castro MD | | + + + + + + + + | Performing | Address | City/State/Zipcode | Phone Number | | Organization | | | | + + + + + | [facility] | [address] | [place] | [phone] | | [facility] | | [address] | | | - IMAGING | | | | + + + + + documented in this encounter Visit Diagnoses + + | Diagnosis | + + | Solitary pulmonary nodule - Primary | + + documented in this encounter
--- OUTSIDE RECORDS SUMMARY | ~2019-02-24 | XMS | Encounter Summary ---
Demographics + + + | Address | [address] | | | [place] [address] | + + + | Home Phone | | + + + | Preferred Language | Unknown | + + + | Marital Status | | + + + | Mormon Affiliation | 1076 | + + + | Race | Unknown | + + + | Ethnic Group | Unknown | + + + Author + + + | Author | [facility] | | | and [place] | + + + | Organization | [facility] | | [...] Team Providers + +------+ + | Care Wheel Lacer And Truer Name | Role | Phone | + [...] [address] | | | | | [place], [place] | [facility] | | | | | [address] | [place] [address] | | | | | [phone] | [phone] | | | | | | | [...] | | | | | [place] [address] | | | | | | [phone] | | | | | | | | +--------+---------+ + + + documented as of this encounter Visit Diagnoses Not on filedocumented in this encounter"
--- OUTSIDE RECORDS SUMMARY | ~2019-02-24 | XMS | Encounter Summary ---
Demographics + + + | Address | [address] | | | [place] [address] | + + + | Home Phone | | + + + | Preferred Language | Unknown | + + + | Marital Status | | + + + | Christianity Affiliation | PRE | + + + | Race | White | + + + | Ethnic Group | Not or | + + + Author + + + | Author | [facility] | + + + | Organization | [facility] | + + + | Address | Unknown | + + + | Phone | Unavailable | + + + Support + + +---------+ + | Name | Relationship | Address | Phone | + + +---------+ + | Andrez Lucas | ECON | Unknown | Unavailable | + + +---------+ + Care Team Providers + +------+ + | Care Electric Motor Assembler Name | Role | Phone | + +------+ + | Parviz Brar DO | PCP | | + +------+ + Encounter Details +--------+ + + + + | Date | Type | Department | Care Team | Description | +--------+ + + + + | 06/05/ | Procedure - | [facility] [address] | Cortney Babcock | OMI | | 2004 | | [facility] | [phone] | | | | Transcribed | [place] | | | | | | [address] | | | +--------+ + + + [...] | + +--------+ + + + | EKG | | 06/05/2004 | | Results for this | | | | 2:04 PM | | procedure are in the | | | | PDT | | results section. | + +--------+ + + + documented in this encounter Results EKG (06/05/2004 2:04 PM PDT) + + | Transcriptions | + + | Other, Faculty - 06/09/2004 10:38 AM [facility] | | ELECTROCARDIOGRAPHIC [id number] [place] [address] [id number]: | | Marc Stovall, TALIA AND TIME: June 05, 2004 @ 1547 hoursRHYTHM: Sinus.ATRIAL | | RATE: 67VENTRICULAR RATE: 67PR INTERVAL: 184 QRS: 88 QTC: 406 QRS AXIS: | | 11INTERPRETATION: Normal sinus rhythm. There are prominent T waves withsome peaking | | noted in leads V2 through V4. Suggest clinicalcorrelation of possible ischemia or | | hyperkalemia. There are no oldtracings for comparison. This may be a normal tracing in a | | thin-walledman.JOB #[id number]//[id number] | | Electronically Signed | | | | Rylee Tay, [facility],OLGA [id number] DATE: | | | |ATRIAL RATE: 67 | |VENTRICULAR RATE: 67 | | | |TN INTERVAL: 184 QRS: 88 QTC: 406 QRS AXIS: 11 | | | |INTERPRETATION: Normal sinus rhythm. There are prominent T waves with | |some peaking noted in leads V2 through V4. Suggest clinical | |correlation of possible ischemia or hyperkalemia. There are no old | |tracings for comparison. This may be a normal tracing in a thin-walled | |man. | | | | | |JOB #[id number] | |06/08/04 | |06/09/04 | |MWCresencio Electronically Signed | | | | Rylee Tay MD | | | | | | | | | | | | | | | | | | | | | | | | | | | | | | | | | | | | | | | | | | | | | | | | | | | | | |OLGA LUCAS | |[id number] | |[id number] | |ADMIT DATE: | + + documented in this encounter Visit Diagnoses Not on filedocumented in this encounter"
--- OUTSIDE RECORDS SUMMARY | ~2019-02-24 | XMS | Encounter Summary ---
Demographics + + + | Address | [address] | | | [place] [address] | + + + | Home Phone | | + + + | Preferred Language | Unknown | + + + | Marital Status | | + + + | Catholic Affiliation | PRE | + + + | Race | White | + + + | Ethnic Group | Not or | + + + Author + + + | Author | [facility] | + + + | Organization | [facility] | + + + | Address | Unknown | + + + | Phone | Unavailable | + + + Support + + +---------+ + | Name | Relationship | Address | Phone | + + +---------+ + | Andrez Lucas | ECON | Unknown | Unavailable | + + +---------+ + Care Team Providers + +------+ + | Care Unindentured Apprentice Name | Role | Phone | + [...] | | | | | | Rd [facility] | [place], [place] | | | | | | Hospital | [address] | | | | | | [place], [place] | Phone: | | | | | | [address] | [phone] | | | | | | Phone: | Fax: | | | | | | [phone] | [phone] | +--------+--------+ + + + + Encounter Details +--------+---------+ + + + | Date | Type | Department | Care Team | Description | +--------+---------+ + + + | 06/20/ | Office | Otolaryngology | Desiree Easton, | Epistaxis (Primary | | 2012 | Visit | Laryngology Services | MD | Dx) | | | | at [facility] [address] | | | | | | [place], | | | | | | [place] [address] | | | | | | [phone] | | | +--------+---------+ + + + [...] 06/20/2012 2:27 PM PDTThank you for choosing [facility] Department of Otolaryngology for your health care needs. If you need to speak to an ENT physician after normal business hours, please call [phone] and ask to have the ENT phys davey publication editor paged. No nose blowing for two weeks. Saline nasal spray, 2 sprays 3-4 times daily documented in this encounter Progress Notes Desiree Easton MD - 06/20/2012 2:21 PM PDTFormatting of this note might be different fr om the original. PATIENT: Diego Lucas [facility] MR#: [id number] : 1935 REQUESTING PROVIDER: No Referring Provider Per Patient NO REFERRING PROVIDER PER PT PRIMARY CARE PROVIDER: Parviz Brar DO CLINIC: [facility] CHIEF COMPLAINT: Chief Complaint Patient presents with Nose bleed HPI: Diego Lucas is a 76 y.o. male who presents to the [facility] [...] severe pain. oxymetazoline 0.05 % Nasal Aerosol, [place] Instill 2 Sprays into each nostril every six hours as needed (Epistaxis). Use for only 3 days. polyethylene glycol 17 gram/dose Oral Powder Take 17 g by mouth once daily. sodium chloride 0.65 % Nasal Aerosol, [place] Instill 2 Sprays in nose every two [...] well. I have recommended that he use Clarion [place] or a formulary equiv alent, 2 sprays [...] Lucas expects to be discharged from the longterm next week. He plans to re turn to [place] with his after this. I would be [...] | + +--------+ + + + | PA NASAL/SINUS | Routin | 06/20/2012 | Epistaxis [...]
--- OUTSIDE RECORDS SUMMARY | ~2019-02-24 | XMS | Encounter Summary ---
Demographics + + + | Address | [address] | | | [place] [address] | + + + | Home Phone [...] | [facility] [...] Team Providers + +------+ + | Care Spot Remover Name | Role | Phone | + +------+ + | Parviz Brar DO | PCP | | + +------+ + Encounter Details +--------+ + + + + | Date | Type | Department | Care Team | Description | +--------+ + + + + | 03/19/ | Hospital | [facility] | Jennifer Wilder, | | | 2015 | Encounter | HEART MED CTR | MD [address] | | | | | ELECTROPHYSIOLOGY | [address] [place] | | | | | [address] | [address] | | | | | [place] | [phone] | | | | | [address] | | | | | | [phone] | | | +--------+ + + + [...] different fro m the original. DISCHARGE SUMMARY [facility] PATIENT NAME/: Diego Lucas, (1935) DATE OF [...] below. EKG shows sinus rhythm with normal MA interval and no preexcitation. MASTER PROBLEM LIST: [...] EKG: KG shows sinus rhythm with normal MA interval and no preexcitation. Selected Labs: Lab [...] mg by mouth Daily. Respiratory Therapy Supplies [facility] Please provide an O2 concentrator while Diego [...] 30 minutes Thank you for allowing [facility] to be involved in the care of this patient. Please call with any questions . Patient Care Team: Parviz Brar as PCP - General (Family Medicine) Becca Castro MD as Physician (Pulmonary Disease) Noe Worley MD (Cardiology) Note reviewed, agree with above Jennifer Wilder MD RUST documented in this e ncounter [...] dizziness Repeated vomiting You cannot be awakened [id number] [employer]. [address] [place] [address], [place] [id number]. All righ ts reserved. This information is [...] Tolerated PO fluids, snack.Bila t groins stable. andra Lowe RN - 03/19/2014 2:16 PM PSTRecd rept from DIVYA arce. Pt AAOx3, pain free, bilat groins d/i. [...] | | | | | [place] [address] | | | | | | [phone] | | | | | | | [...] mg/dL | [facility] | | | | [place] | | SACRED | | | | [facility], [address] | | HEART | | | | [place] [address] | | MEDICAL | | | | [...] SACRED | [address] | [place] [address] | | | HEART [facility] | | | | | [...] | PROVID[facility] | | | Count | [place] | | SACRED | | | | [facility], [address] | | HEART | | | | [address], [place] [address] | | MEDICAL | | | | [...] + + | [facility] | [address] | [place] [address] | | | [facility] | | | | | [...] + + + | Glucose | 97Comment: Citizen Of [place] | 65 - 99 mg/dL | PROVIDEARE | | | | Diabetes Association | [...] at | | | | | | [facility] | | | | | | [facility], [address] | | | | | | [address] [place] [address] | | | | + + + + + + + + | Specimen | + + | Blood specimen | | (specimen) | + + + + + + + | Performing | Address | City/State/Zipcode | Phone Number | | Organization | | | | + + + + + | [facility] | [address] | [place] [address] | | | [facility] | | | | | LABORATORY [...]
--- OUTSIDE RECORDS SUMMARY | ~2019-02-24 | XMS | Encounter Summary ---
Demographics + + + | Address | [address] | | | [place] [address] | + + + | Home Phone [...] | [facility] | | | and [place] [...] Team Providers + +------+ + | Care Gang Boss Name | Role | Phone | + [...] [address] | | | | | [place], [place] | [facility] | | | | | [address] | [place] [address] | | | | | [phone] | [phone] | | | | | | | [...] | | | | | [place] [address] | | | | | | [phone] | | | | | | | | +--------+---------+ + + + documented as of this encounter Visit Diagnoses Not on filedocumented in this encounter"
--- OUTSIDE RECORDS SUMMARY | ~2019-02-24 | XMS | Encounter Summary ---
Demographics + + + | Address | [address] | | | [place] [address] | + + + | Home Phone | | + + + | Preferred Language | Unknown | + + + | Marital Status | | + + + | Gnosticism Affiliation | 1076 | + + + | Race | Unknown | + + + | Ethnic Group | Unknown | + + + Author + + + | Author | [facility] | | | and [place] | + + + | Organization | [facility] | [...] Providers + +------+ + | Care Aircraft Mechanic Armament Name | Role | Phone | + [...] 2017 | | GASTROENTEROLOGY | [address], [place] | | | | | [address] [place] | [address] [place], [place] | | | | | [address] [place], [place] | [address] | | | | | [address] | | | | | | [phone] | | | +--------+ + + + [...] | | | | | [place] [address] | | | | | | [phone] | | | | | | | | +--------+---------+ + + + documented as of this encounter Visit Diagnoses Not on filedocumented in this encounter"
--- OUTSIDE RECORDS SUMMARY | ~2019-02-24 | XMS | Encounter Summary ---
Demographics + + + | Address | [address] | | | [place] [address] | + + + | Home Phone [...] | Organization | [facility] | | | and [...] Team Providers + +------+ + | Care Fit Model Name | Role | Phone | + +------+ + PCP | Unavailable | + +------+ + Encounter Details +--------+ + + + + | Date | Type | Department | Care Team | Description | +--------+ + + + + | 04/04/ | Hospital | [facility] | | | | 2008 - | Encounter | MED CTR CANCER | | | | | | CENTER [address] | | | | 04/21/ | | [place] | | | | 2008 | | [address] | | | | | | [phone] | | | +--------+ + + + [...] | | | | | [place] [address] | | | | | | [phone] | | | | | | | | +--------+---------+ + + + documented as of this encounter Visit Diagnoses Not on filedocumented in this encounter"
--- OUTSIDE RECORDS SUMMARY | ~2019-02-24 | XMS | Encounter Summary ---
Demographics + + + | Address | [address] | | | [place] [address] | + + + | Home Phone [...] | Organization | [facility] | | | and [place] | [...] Team Providers + +------+ + | Care Palm And Back Forger Name | Role | Phone | + [...] + + | 07/01/ | Office | [facility] [place] | [place], | Panlobular emphysema | | 2016 | Visit | PULMONARY [address] | Billy Segura MD | ([facility]) (Primary Dx); | | | | [place], | | Nocturnal hypoxemia | | | | [place] [address] | | due to emphysema | | | | [phone] | | ([facility]); Pulmonary | | | | | | [...] exercising regularly, out walking a lot in [facility]. He is running for [employer] in [place]. He has been coughing a little more this summer, he thinks because of allergies. He has been bringing up yellow phlegm. He has not had any recent hemoptysis. He has had a runny nose re cently. He has been evaluated for nocturnal oxygen and does use it. He is currently on 2 LPM at [facility]. He reports good compliance. He restested about [...] hormonal treatment with Lupron; DR JULIAN IN [place] COPD (chronic obstructive pulmonary disease) ([facility]) DR BILLY ARAUJO Pneumonia 05/2012 hospitalized [place] [...] Surgeon: Jennifer Wilder MD; Location: [facility] ELECTROPHYSIOLOGY Egd and colonoscopy 02/06/2015 Dr. Arellano [...] No other animal exposures. Grew up in [place]. Then lived in [place]. Then moved to [place]. In the service lived i [facility] and [place]. No recent travel. Allergies: Allergies Allergen Reactions [...] PO) Take by mouth. Respiratory Therapy Supplies [facility] Please provide an O2 concentrator while Diego [...] made to ensure accuracy; however, inadvertent computerized parking control officer errors may be pre sent. documented in [...] | | | | | | [place] [address] | | | | | | [phone] | | | | | | | [...]
--- OUTSIDE RECORDS SUMMARY | ~2019-02-24 | XMS | Encounter Summary ---
Demographics + + + | Address | [address] | | | [place] [address] | + + + | Home Phone | | + + + | Preferred Language | Unknown | + + + | Marital Status | | + + + | Restorationist Affiliation | 1076 | + + + | Race | Unknown | + + + | Ethnic Group | Unknown | + + + Author + + + | Author | [facility] | | | and [place] | + + + | Organization | [facility] | | [...] Team Providers + +------+ + | Care Wad Compressor Operator Adjuster Name | Role | Phone | + [...] + + | 04/14/ | [facility] | [place], | COPD (chronic | | 2013 | Visit | PULMONARY [address] | Becca Segura MD | obstructive | | | | [place], | | pulmonary disease) | | | | [place] [address] | | (HCC) (Primary Dx); | | | | [phone] | | Nocturnal hypoxemia; | | | [...] MD Caterina Noyola [facility] [address] [place], [address] HPI Diego Lucas is a 77 y.o. [...] on level ground. He is exercising re [place]. {He was not walking for a while due to snow, but is walking again now that the weat her is better. He does cough chronically, and does produce mucous, though this has decreased alot. He has not had hemoptysis. He has been evaluated for nocturnal oxygen and does use it. He is currently on 1.5 LPM at [facility]. He was lasted tested on 2L [...] Pulmonary nodules Cataracts, bilateral Pneumonia 05/2012 hospitalized [facility] Shoulder fracture 02/2012 Foot fracture 02/2012 Past [...] home. No other animal exposures.Grew up in [place]. Then lived in [place]. Then move d to [place]. In the service lived in [facility] and [place]. No recent travel. Allergies: Allergies Allergen Reactions [...] and is going back to see the operations assistant. GI: Denies heartburn, nausea, vomiting, and abdominal [...] breath sounds are diminished bilaterally, no wheezes, multicraft operator ckles or rhonchi Chest Wall: No deformity [...] 44 seconds with a saturation less t garcia 88 %. Immunization History Administered Date(s) Administered INFLUENZA, PRESERVATIVE FREE IM 12/11/2012 Pneumococcal (Adult) 10/21/2010 Assessment 1. COPD (chronic obstructive pulmonary disease) (HCC) - Symptoms are improved. He is lookin g at increasing his exercise again and going to visit family in [place] for about a month. I encouraged him to do so, as he has had a rough year. 2. 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 Based on last overnight oximetry, we will increase to 2 L. I advised he should contact [facility] about having oxygen arranged at his destination for [employer] trip. 3. Abnormal CT scan - Last [...] 4. Arrange for oxygen at destination for [employer] trip. He was advised to call if new pulmonary symptoms were to develop. Return to clinic in 3 months, or sooner with concerns. CC: Parviz Brar Portions of this report were transcribed using voice recognition software. Every effort wa s made to ensure accuracy; however, inadvertent computerized commercial light fixture assembler errors may be pre sent. documented in [...] [place] | | | | | | [place] [address] | | | | | | [phone] | | | | | | | [...] | 04/14/2014 | | | | | ([facility]) | | + + +--------+ [...]
--- OUTSIDE RECORDS SUMMARY | ~2019-02-24 | XMS | Encounter Summary ---
Demographics + + + | Address | [address] | | | [place] [address] | + + + | Home Phone [...] | Organization | [facility] [...] Team Providers + +------+ + | Care Appeals Nurse Name | Role | Phone | + [...] Urology | Diagnoses | | [facility] | | | Services | | Prostate | Matthew, | Urology [address] | | | Required | | cancer (HCC) | Becca Segura, | [place] | | | | | | MD [address] | [place], | | | | | | [address] | [place] [address] | | | | | | [place], | Phone: | | | | | | [place] [address] | [phone] | | | | | | | Fax: | | | | | | | [phone] | +--------+ + + + + + Encounter Details +--------+---------+ + + + | Date | Type | Department | Care Team | Description | +--------+---------+ + + + | 12/30/ | Office | [facility] | Jorje Rutledge | Prostate cancer | | 2016 | Visit | [address] | MD [address] | ([facility]) (Primary Dx) | | | | [place], [place] | [facility] | | | | | [address] | [place] [address] | | | | | [phone] | [phone] | | | | | | | [...] + + + | Blood Pressure | 147/82 | 12/31/2015 9:00 AM | | | | | PST | | + + + + + | Pulse | 83 | 12/31/2015 9:00 AM | | | | | PST | | + + + + + | Temperature | - | - | | + + + + + | Respiratory Rate | 16 | 12/31/2015 9:00 AM | | | | | PST | | + + + + + | Oxygen Saturation | - | - | | + + + + + | Inhaled Oxygen | - | - | | | Concentration | | | | + + + + + | Weight | 79.8 kg (176 lb) | 12/31/2015 9:00 AM | | | | | PST | | + + + + + | Height | 177.8 cm (5' 10") | 12/31/2015 9:00 AM | | | | | PST | | + + + + + | Body Mass Index | 25.25 | 12/31/2015 9:00 AM | | | | | PST | | + + + + + documented in this encounter Progress Notes Dina Garcia RN - 12/31/2015 9:33 AM PST Administrations This Visit leuprolide (LUPRON DEPOT-6 MONTH) injection 45 mg Admin Date Action Dose Route Administered By 12/31/2015 Given 45 mg Intramuscular Dina Garcia RN Patient tolerated injection well. He will return in 6 months for next visit. .............. .............................Dina Garcia RN on 12/31/15 at 9:33 Jorje Herrera nd, MD - 12/31/2015 9:02 AM PST . Diego is a 80 y.o. male patient of Parviz Brar being seen today for follow-up of PSA r ecurrence following radiation therapy for Prostate cancer. He is a very pleasant gentleman who was a patient of Dr. Mercedez Barkley in [place] for many years. He originally had a stage TI2c or possibly T3 [place] score 4+3 = 7 adenocarcinoma of the [...] is not having any pain, bony or otherwise.His weight has been stable. He was started on tamsulosin 0.4 mg twice a day, and symptoms have not changed appreciably since that time. His AUA symptom score is 18 with a bother of 3 today. His urine is clear, and his post void residual is 44 cc today. His PSA is now 0.247. We discussed the possibility of a ADT on either continuous or intermittent basis, and since his PSA was up slightly, I thought it best to continue on with continuous androgen deprivat ion therapy, today. Past Medical History He has a past medical history of Peptic ulcer disease; Benign prostatic hypertrophy; Osteoa rthritis; Heartburn; Pulmonary nodules; Shoulder fracture (02/2012); Foot fracture (02/2012); SVT (supraventricular tachycardia) ([facility]) (01/2014); Depression; Prostate cancer ([facility]) (2007) ; COPD (chronic obstructive pulmonary disease) (); Pneumonia (05/2012); Heart murmur; Rima racts, bilateral; Kidney stone (2004); Hypertension; TIA (transient ischemic attack); Migrai gaston; Supplemental oxygen dependent; C. difficile enteritis (2012); Lumbar disc herniation; G I bleed (01/2015); Diverticulosis (01/2015); Hiatal hernia (01/2015); and Gastritis (01/2015 ). Past Surgical History He has past surgical [...] He reports that he quit smoking about 6 years ago. His smoking use included Cigarettes and Pipe. He has a 6 pack-year smoking history. He has never used smokeless tobacco. He reports that he does not drink alcohol or use illicit drugs. Allergies Allergen Reactions Adhesive & Tape Paper tapes- BLISTERS Medications: Outpatient Encounter Prescriptions as of 12/31/2015 Medication Sig Dispense Refill acetaminophen (TYLENOL) 325 mg tablet Take 650 mg by mouth every 4 hours as needed. albuterol (PROAIR HFA) 90 mcg/puff inhaler Inhale 2 puffs into the lungs every 6 hours as needed for Wheezing or Shortness of Breath. 1 Inhaler 11 amLODIPine (NORVASC) 5 mg tablet Take one tablet by mouth once daily. cholecalciferol (VITAMIN D-3) 1,000 units capsule Take 1,000 Units by mouth nightly. [employer] LUTEIN PO Take by mouth. ferrous sulfate 325 mg tablet Take one [...] (or shortness of breath). 1 Inhaler 2 omeprazole (PRILOSEC OTC) 20 mg tablet Take 20 mg by mouth Daily. oxygen Inhale 2 L into the lungs nightly. Polyethylene Glycol 3350 (MIRALAX PO) Take by mouth. Respiratory Therapy Supplies MISC Please provide an O2 concentrator while Diego [...] facility-administered encounter medications on file as of 12/31/2015. AUA BPH SYMPTOM SCORE Not at all [...] postpone uri nation? [] 0 [] 1 [x] 2 [] 3 [] 4 [] 5 WEAK STREAM [...] 5 [] 6 PHYSICAL EXAM Vitals: BP 147/82 mmHg | Pulse 83 | Resp 16 | Ht 1.778 m (5' 10") | Wt 79.833 kg (176 lb) | BMI 25.25 kg/m2 General: Awake, alert, in no acute distress. Speech is fluent. Appears to be stated age. Lungs: Normal respiratory effort, he is wearing a mask because of an upper respiratory tra ct infection, and occasionally coughs nonproductively. Abdomen: Soft, nontender. Extremities: Non-edematous. Neuro: Awake, alert, oriented. Psychiatric: Mood and affect are normal. Skin: Warm and dry. Groin: No lymphadenopathy. Genitalia: No lesion. Normal in appearance. Rectal: No mass, normal sphincter tone. Prostate gland is palpably benign. Prostate gland is enlarged. Prostate gland volume is estimated at 20 gm. Lateral sulci are intact. 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 Since he is having difficulties with ho t flashes I have prescribed Megace 20 mg by mouth daily, to twice a day, and told him to mohan rees if this is not helping him in the next few weeks. I would like to see him back with upda hallie labs including PSA and total testosterone in June 2016. We discussed the use of vitamin D3 and calcium for bone health, and if we continue the ADT, then we will be obtaining a DEXA scan as well and consider Fosamax. Diego is instructed to resume his usual and customary care with his primary care provider. This document was generated in part using voice recognition software. Although I have atte mpted to edit the content, I have not thoroughly proofread this note, and selling underwriter erro rs may occur. documented in th is encounter Plan of Treatment +--------+---------+ + + + | Date | Type | Specialty | Care Team | Description | +--------+---------+ + + + | 03/13/ | Office | Urology | Rutledge, Gene | | | 2020 | Visit | | MD [address] | | | | | | [address] | | | | | | [place] [address] | | | | | | [phone] | | | | | | | | +--------+---------+ + + + documented as of this encounter Procedures + +--------+ + + + | Procedure Name | Priori | Date/Time | Associated Diagnosis | Comments | | | ty | | | | + +--------+ + + + | POCT URINALYSIS, | Routin | 12/31/2015 | Prostate cancer | Results for this | | AUTO WITH CONF | e | 9:04 AM | (HCC) | procedure are in the | | | | PST | | results section. | + +--------+ + + + | IMAGING REPORT - | | 12/31/2015 | | Results for this | | EXTERNAL SCAN | | 12:00 AM | | procedure are in the | | | | PST | | results section. | + +--------+ + + + | LABS - EXTERNAL SCAN | | 12/28/2015 | | Results for this | | | | 12:00 AM | | procedure are in the | | | | PDT | | results section. | + +--------+ + + + documented in this encounter Results POCT Urinalysis Dipstick Automated (12/31/2015 9:04 AM PST) + + + + + [...] + + + + | Specific | 1.005 | 1.001 - 1.030 | | | | [employer], | | | | | | UA, [...] + + IMAGING REPORT - EXTERNAL SCAN (12/31/2015 12:00 AM PST) + + + | Narrative | Performed At | + + + | Ordered by an | | | unspecified provider. | | + + + LABS - EXTERNAL SCAN (12/28/2015 12:00 AM PDT) + + + | [...] | leuprolide (LUPRON DEPOT-6 | Given | 12/31/19 | 45 mg | | Glut-Rig | | MONTH) injection 45 mg 45 mg, | | 16 9:31 | | | ht | | Intramuscular, ONCE, 12/31/15 | | AM PST | | | | | at 0945, For 1 dose, | | | | | | | Chemotherapy: Use appropriate | | | | | | | handling precautions., | | | | | | + +--------+ +-------+------+ + +---+---+ | | | +---+---+ documented in this encounter
--- OUTSIDE RECORDS SUMMARY | ~2019-02-24 | XMS | Encounter Summary ---
Demographics + + + | Address | [address] | | | [place] [address] | + + + | Home Phone | | + + + | Preferred Language | Unknown | + + + | Marital Status | | + + + | Hindu Affiliation | 1076 | + + + | Race | Unknown | + + + | Ethnic Group | Unknown | + + + Author + + + | Author | [facility] | | | and [place] | + + + | Organization | [facility] | | | and [place] [...] Team Providers + +------+ + | Care Sizing Sponger Name | Role | Phone | + +------+ + PCP | Unavailable | + +------+ + Encounter Details +--------+ + + + + | Date | Type | Department | Care Team | Description | +--------+ + + + + | 12/19/ | Hospital | [facility] | | | | 2009 - | Encounter | MED CTR CANCER | | | | | | CENTER [address] | | | | 12/22/ | | [place] | | | | 2009 | | [address] | | | | | | [phone] | | | +--------+ + + + [...] | | | | | | [place] [address] | | | | | | [phone] | | | | | | | | +--------+---------+ + + + documented as of this encounter Visit Diagnoses Not on filedocumented in this encounter"
--- OUTSIDE RECORDS SUMMARY | ~2019-02-24 | XMS | Encounter Summary ---
Demographics + + + | Address | [address] | | | [place] [address] | + + + | Home Phone [...] | [facility] | [...] Team Providers + +------+ + | Care Recreational Counselor Name | Role | Phone | + [...] | | Abnormal | [place], | [address] | | | | | chest CT | Becca B, | [place], | | | | | Procedures | MD [address] | [place] [address] | | | | | CT Chest wo | [address] | Phone: | | | | | Contrast | [place], | [phone] | | | | | | [place] [address] | Fax: | | | | | | | [phone] | +--------+--------+ + + + + Reason [...] (Primary Dx); COPD | | | | [place], | | (chronic obstructive | | | | [place] [address] | | pulmonary disease) | | | | [phone] | | ([facility]); Pneumonia | +--------+---------+ + + + Social [...] original. Pulmonary Follow Up Becca Castro MD [place] [facility] [address] [place], [address] [facility] [place] Lucas is a 76 y.o. [...] He was hospitalized for t his at [facility] in May. He was in the [...] good compliance, except when he was in [place]. Past Medical History Past Medical History Diagnosis Date COPD (chronic obstructive pulmonary disease) Peptic ulcer disease with upper GI bleed Benign prostatic hypertrophy Prostate cancer s/p radiation treatment and on hormonal treatment with Lupron Osteoarthritis Heartburn Pulmonary nodules Cataracts, bilateral Pneumonia 05/2012 hospitalized [facility] Shoulder fracture 02/2012 Foot fracture 02/2012 [...] home. No other animal exposures.Grew up in [place]. Then lived in [place]. Then move d to [place]. In the service lived in [facility] and [place]. No recent travel. Allergies: Allergies Allergen Reactions [...] janee for which he was hospitalized at [facility]. Last PSA was 2, and these [...] he becomes ill. Plan 1.Get imaging from [facility]. 2.Repeat chest CT scan in 3 months. 3.Continue Flovent and Atrovent. He was advised to call if new pulmonary symptoms were to develop. Return to clinic in 3 months with repeat chest CT, or sooner with concerns. CC: Parviz Brar Portions of this report were transcribed using voice recognition software. Every effort wa s made to ensure accuracy; however, inadvertent computerized staff toxicologist errors may be pre sent. documented in [...] | | | | | [place] [address] | | | | | | [phone] | | | | | | | | +--------+---------+ + + + documented as of this encounter Results CT Chest wo Contrast (10/27/2012 3:21 PM PDT) + + | Specimen | + + | | + + + + + | Narrative | Performed At | + + + | [facility] | [place] | | Department [address] [facility] | [facility] | | [ rep ct [address]] [ rep [facility] | | [facility]] Signed | - IMAGING | | | | | Patient Name: DIEGO LUCAS Physician: | | | . : 1935 Age: 76 Sex: M Unit #: [id number] | | | Exam Date: 10/27/12 Location: [facility] | | | Report #: [id number] Page: | | | %(RAD)RES..mtdd.print.filter("pg") of %(RAD) | | | RES..mtdd.print.filter("tpg") | | | | | | Accession Number: [id number] | | | [id number] CHEST CT CLINICAL HISTORY: FOLLOWUP | | [...] | | | Transcribed Date/Time: 10/27/2012 16:01 Search Coordinator: | | | <<Signature on File>> | | | Yosef | | | MD Jimmie10/27/122003 <Electronically signed by Yosef Samuel MD> | | | Yosef Samuel MD 10/27/12 1521 Search Coordinator: [employer] | | | Dpalcusdnvcwj55/05/13 1601 Becca Castro MD | | | | | + + + + + + + + | Performing | Address | City/State/Zipcode | Phone Number | | Organization | | | | + + + + + | [facility] | [address] | [place] | [phone] | | [facility] | | [address] | | | - IMAGING | | [...]
--- OUTSIDE RECORDS SUMMARY | ~2019-02-24 | XMS | Encounter Summary ---
Demographics + + + | Address | [address] | | | [place] [address] | + + + | Home Phone [...] | Organization | [facility] | | | and [place] [...] Providers + +------+ + | Care Student Teaching Coordinator Name | Role | Phone | [...] + + | 12/27/ | Refill | [facility] | Jorje Rutledge | Medication Refill | | 2017 | | [address] | MD [address] | | | | | [place], [place] | [address] [facility] | | | | | [address] | [place] [address] | | | | | [phone] | [phone] | | | | | | | [...] | | | | | [place] [address] | | | | | | [phone] | | | | | | | | +--------+---------+ + + + documented as of this encounter Visit Diagnoses Not on filedocumented in this encounter"
--- OUTSIDE RECORDS SUMMARY | ~2019-02-24 | XMS | Encounter Summary ---
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 He is running for [employer] in [place]. He has been coughing a little more this summer, he thinks because of allergies. He has been bringing up yellow phlegm. He has not had any recent hemoptysis. He has had a runny nose re cently. He has been evaluated for nocturnal oxygen and does use it. He is currently on 2 LPM at [facility]. He reports good compliance. He restested about [...] hormonal treatment with Lupron; DR JULIAN IN [place] COPD (chronic obstructive pulmonary disease) ([facility]) DR BILLY ARAUJO Pneumonia 05/2012 hospitalized [facility] Heart murmur DR MARIAA OLIVERA Cataracts, bilateral [...] Laterality: N/A; Surgeon: Jennifer Wilder MD; Location: [facility] ELECTROPHYSIOLOGY Egd and colonoscopy 02/06/2015 Dr. Arellano [...] No other animal exposures. Grew up in [place]. Then lived in [place]. Then moved to [place]. In the service lived i [facility] and [place]. No recent travel. Allergies: Allergies [...] PO) Take by mouth. Respiratory Therapy Supplies [facility] Please provide an O2 concentrator [...] made to ensure accuracy; however, inadvertent computerized coin machine collector errors may be pre sent. documented in [...] | | | | | | [place] [address] | | | | | | [phone] | | | | | | | [...]
--- OUTSIDE RECORDS SUMMARY | ~2019-02-24 | XMS | Encounter Summary ---
Demographics + + + | Address | [address] | | | [place] [address] | + + + | Home Phone | | + + + | Preferred Language | Unknown | + + + | Marital Status | | + + + | Faith Affiliation | 1076 | + + + | Race | Unknown | + + + | Ethnic Group | Unknown | + + + Author + + + | Author | [facility] | | | and [place] | + + + | Organization | [facility] | | [...] Providers + +------+ + | Care Director Education Name | Role | Phone | + +------+ + | Parviz Brar DO | PCP | | + +------+ + Encounter Details +--------+ + + + + | Date | Type | Department | Care Team | Description | +--------+ + + + + | 06/16/ | Hospital | [facility] | Conversion | Pain | | 2017 | Encounter | CONVERSION [address] | Transaction, | | | | | [address] | Provider Unknown | | | | | [place], [place] | [phone] | | | | | [address] | | | | | | [phone] | | | +--------+ + + + [...] | 14 | | | MISCIndications: | Deigo is visiting for | | | | [...] | | | | | [place] [address] | | | | | | [phone] | | | | | | | | +--------+---------+ + + + documented as of this encounter Procedures + +--------+ + + + | Procedure Name | Priori | Date/Time | Associated Diagnosis | Comments | | | ty | | | | + +--------+ + + + | CT CHEST WO CONTRAST | Routin | 09/06/2012 | | Results for this | | | e | 4:13 AM | | procedure are in the | | | | PDT | | results section. | + +--------+ + + + documented in this encounter Results CT Chest wo Contrast (09/06/2012 4:13 AM PDT) + + | Specimen [...]
--- OUTSIDE RECORDS SUMMARY | ~2019-02-24 | XMS | Encounter Summary ---
Demographics + + + | Address | [address] | | | [place] [address] | + + + | Home Phone [...] + + | Author | [facility] | | | and [place] | + + + | Organization | [facility] | [...] Team Providers + +------+ + | Care Apprentice Carpenter Name | Role | Phone | + +------+ + PCP | Unavailable | + +------+ + Encounter Details +--------+ + + + + | Date | Type | Department | Care Team | Description | +--------+ + + + + | 03/09/ | Hospital | [facility] | | | | 1994 | Encounter | MED CTR XRAY [address] | | | | | | [address] | | | | | | [place] [address] | | | | | | [phone] | | | +--------+ + + + [...] | | | | | [place] [address] | | | | | | [phone] | | | | | | | | +--------+---------+ + + + documented as of this encounter Visit Diagnoses Not on filedocumented in this encounter"
--- OUTSIDE RECORDS SUMMARY | ~2019-02-24 | XMS | Encounter Summary ---
Demographics + + + | Address | [address] | | | [place] [address] | + + + | Home Phone | | + + + | Preferred Language | Unknown | + + + | Marital Status | | + + + | Zoroastrianism Affiliation | 1076 | + + + | Race | Unknown | + + + | Ethnic Group | Unknown | + + + Author + + + | Author | [facility] | | | and [place] | + + + | Organization | [facility] [...] Team Providers + +------+ + | Care Steam And Gas Turbine Assembler Name | Role | Phone | + +------+ + PCP | Unavailable | + +------+ + Encounter Details +--------+ + + + + | Date | Type | Department | Care Team | Description | +--------+ + + + + | 07/24/ | Hospital | [facility] | | | | 2009 - | Encounter | MED CTR CANCER | | | | | | CENTER [address] | | | | 08/21/ | | [place] | | | | 2009 | | [address] | | | | | | [phone] | | | +--------+ + + + [...] | | | | | [place] [address] | | | | | | [phone] | | | | | | | | +--------+---------+ + + + documented as of this encounter Visit Diagnoses Not on filedocumented in this encounter"
--- OUTSIDE RECORDS SUMMARY | ~2019-02-24 | XMS | Encounter Summary ---
Demographics + + + | Address | [address] | | | [place] [address] | + + + | Home Phone [...] Organization | [facility] [...] Team Providers + +------+ + | Care Station Detective Name | Role | Phone | + +------+ + | Parviz Brar DO | PCP | | + +------+ + Encounter Details +--------+ + + + + | Date | Type | Department | Care Team | Description | +--------+ + + + + | 03/19/ | Hospital | [facility] | Jennifer Wilder, | | | 2015 | Encounter | HEART MED CTR | MD [address] | | | | | ELECTROPHYSIOLOGY | [address] [place] | | | | | [address] | [address] | | | | | [place] | [phone] | | | | | [address] | | | | | | [phone] | | | +--------+ + + + [...] different fro m the original. DISCHARGE SUMMARY [facility] PATIENT NAME/: Dieog Lucas, (1935) DATE OF ADMISSION: 03/19/2014 DATE [...] below. EKG shows sinus rhythm with normal NH interval and no preexcitation. MASTER PROBLEM LIST: [...] EKG: KG shows sinus rhythm with normal NH interval and no preexcitation. Selected Labs: Lab [...] mg by mouth Daily. Respiratory Therapy Supplies [facility] Please provide an O2 concentrator while Diego [...] in am for an EKG. Dr. Noe oWrley in 2-3 weeks. . Time spent on discharge planning: less than 30 minutes Thank you for allowing [facility] to be involved in the care of this patient. Please call with any questions . Patient Care Team: Parviz Brar as PCP - General (Family Medicine) Becca Castro MD as Physician (Pulmonary Disease) Noe Worley MD (Cardiology) Note reviewed, agree with above Jennifer Wilder MD [facility] documented in this e ncounter Discharge [...] dizziness Repeated vomiting You cannot be awakened 7743-[address] [employer] [place] [address], [place] [id number]. All righ ts reserved. This information is [...] | | | | | [place] [address] | | | | | | [phone] | | | | | | | [...] mg/dL | [facility] | | | | [place] | | SACRED | | | | [facility], [address] | | HEART | | | | [place] [address] | | MEDICAL | | | | [...] SACRED | [address] | [place] [address] | | | HEART [facility] | | | | [...] | [facility] | | | Count | [place] | | SACRED | | | | [facility], [address] | | HEART | | | | [address], [place] [address] | | MEDICAL | | | | [...] + + | [facility] | [address] | [place] [address] | | | [facility] | | | | | LABORATORY [...] + + + | Glucose | 97Comment: Japanese | 65 - 99 mg/dL | [facility] | | | | Diabetes Association | [...] at | | | | | | [facility] | | | | | | [facility], [address] | | | | | | [address] [place] [address] | | | | + + + + + + + + | Specimen | + + | Blood specimen | | (specimen) | + + + + + + + | Performing | Address | City/State/Zipcode | Phone Number | | Organization | | | | + + + + + | [facility] | [address] | [place] [address] | | | [facility] | | | | | [...]
--- OUTSIDE RECORDS SUMMARY | ~2019-02-24 | XMS | Encounter Summary ---
Demographics + + + | Address | [address] | | | [place] [address] | + + + | Home Phone [...] Organization | [facility] | | | and [place] [...] Team Providers + +------+ + | Care Adult Nurse Practitioner Name | Role | Phone | + [...] + + | 10/27/ | Office | [facility] | Jorje Rutledge | Prostate cancer | | 2017 | Visit | [address] | [address] | ([facility]) (Primary Dx) | | | | [place], [place] | [facility] | | | | | [address] | [place] [address] | | | | | [phone] | [phone] | | | | | | | [...] + + + | Blood Pressure | 159/96 | 10/27/2016 10:16 AM | | | | | PDT | | + + + + + | Pulse | 70 | 10/27/2016 10:16 AM | | | | | PDT | | + + + + + | Temperature | - | - | | + + + + + | Respiratory Rate | 16 | 10/27/2016 10:16 AM | | | | | PDT | | + + + + + | Oxygen Saturation | - | - | | + + + + + | Inhaled Oxygen | - | - | | | Concentration | | | | + + + + + | Weight | 78.5 kg (173 lb 1.6 | 10/27/2016 10:16 AM | | | | oz) | PDT | | + + + + + | Height | 177.8 cm (5' 10") | 10/27/2016 10:16 AM | | | | | PDT | | + + + + + | Body Mass Index | 24.84 | 10/27/2016 10:16 AM | | | | | PDT | | + + + + + documented in this encounter Progress Notes Jorje Rutledge MD - 10/27/2016 10:00 AM PDTFormatting of this note might be differen t from the original. Diego is a 80 y.o. male patient of Parviz Brar being seen today for Follow-up Prostate cancer . He is a pleasant gentleman with a history ofT2c or T3 adenocarcinoma the prostate, Gabino 4+3 = 7, which was diagnosed in June 2007. His PSA initially was 13.9. He received radiation therapy by Dr. Garza, with post radiation adjuvant Lupron administrat ion for approximately 1-1/2 years. His PSA soy was 0.01. Afterwards, he had a PSA recurrence with a slow doubling time. In July 2013, his PSA was 5 .38, and he was started on anti-antigen therapy, with Lupron. He has done well symptomatica lly, with only hot flashes with the Lupron. He has been tried on Megace in the past without any improvement of his hot flashes. He has had recent difficulties with bloody stools, and is currently undergoing GI evaluatio n. His last Lupron administration was in December 31, 2015. Past Medical History He has a past medical history of Anemia; Benign prostatic hypertrophy; C. difficile enterit is (2012); CAD (coronary artery disease); Cataracts, bilateral; COPD (chronic obstructive pu lmonary disease) ([facility]); Depression; Diverticulosis (01/2015); Foot fracture (02/2012); Gastri tis (01/2015); GI bleed (01/2015); Heart murmur; Heartburn; Hiatal hernia (01/2015); History of rectal bleeding; Hypertension; Insomnia; Kidney stone (2004); Lumbar disc herniation; Mi graines; Mood disorder ([facility]) of unknown (axis III) etiology; Nocturnal hypoxia; Osteoarthrit is; Peptic ulcer disease; Pneumonia (05/2012); Prostate cancer ([facility]) (2007); Pulmonary nodule s; Shoulder fracture (02/2012); Supplemental oxygen dependent; SVT (supraventricular tachycar anushka) ([facility]) (01/2014); and TIA (transient ischemic attack). Past [...] alcohol or use drugs. Allergies Allergen Reactions Adhesive & Tape Hives and Rash Paper tapes- BLISTERS Penicillins Medications: Outpatient Encounter Prescriptions as of 10/27/2016 Medication Sig Dispense Refill acetaminophen (TYLENOL) 325 mg tablet Take 650 mg by mouth every 4 hours as needed. albuterol (PROAIR HFA) 90 mcg/puff inhaler Inhale 2 puffs into the lungs every 6 hours as needed for Wheezing or Shortness of Breath. 1 Inhaler 11 amLODIPine (NORVASC) 5 mg tablet Take one tablet by mouth once daily. aspirin 81 mg EC tablet Take 81 mg by mouth Daily. Three times per week Calcium Carb-Cholecalciferol (CALCIUM-VITAMIN D3) 600-400 MG-UNIT TABS Take 1 tablet by mouth Daily. clindamycin (CLEOCIN) 150 mg capsule 150 mg. 0 [facility] LUTEIN PO Take by mouth. ferrous sulfate 325 mg tablet Take 325 mg by mouth 2 times daily (with breakfast & dinn er). Take one tablet daily 4 fluocinonide (LIDEX) [...] TABS Take 1 tablet by mouth Daily. oxygen Inhale 2 L into the lungs nightly. pantoprazole (PROTONIX) 40 mg tablet Take 1 tablet by mouth Daily. 0 Polyethylene Glycol 3350 (MIRALAX PO) Take by mouth. Respiratory Therapy Supplies [facility] Please provide an O2 concentrator while Diego is visiti ng for nocturnal O2 at 2 l/m. Dx: COPD, Nocturnal hypoxemia 1 each 0 sucralfate (CARAFATE) 1 g tablet Take 1 tablet by mouth Daily. 4 tamsulosin (FLOMAX) 0.4 mg CAPS TAKE 2 CAPSULES BY MOUTH ONCE DAILY NEEDED 60 capsul e 0 triamcinolone (KENALOG) 0.1% cream ZAMZAM EXT AA BID FOR 2 TO 4 WKS 1 venlafaxine (EFFEXOR XR) 37.5 mg 24 hr capsule Take 37.5 mg by mouth Daily. zolpidem (AMBIEN) 5 mg tablet Take 5 mg by mouth nightly as needed. SLEEP No facility-administered encounter medications on file as of 10/27/2016. AUA BPH SYMPTOM SCORE Not at all [...] 5 [] 6 PHYSICAL EXAM Vitals: BP (!) 159/96 | Pulse 70 | Resp 16 | Ht 1.778 m (5' 10") | Wt 78.5 kg (173 lb 1 .6 oz) | BMI 24.84 kg/m General: Awake, alert, in no acute distress. Speech is fluent. Appears to be stated age. Lungs: Normal respiratory effort. Abdomen: Soft, nontender. Extremities: Non-edematous. Neuro: Awake, alert, oriented x3. Normal station and gait. Psychiatric: Mood and affect are normal. Normal judgment. Skin: Warm and dry, no erythematous rash. Groin: No lymphadenopathy. No hernia. Genitalia: No lesion. Normal in appearance. Urethral meatus is normal in caliber. Scrotum is supple and nonerythematous. Scrotal contents are benign. Rectal: No mass, normal sphincter tone. Prostate gland is palpably benign. Prostate gland is enlarged. Prostate gland volume is estimated at less than 10 g gm. Lateral sulci are in tact. Seminal vesicles are not palpably enlarged and are nontender. There is no prostatic induration, nodularity, irregularity, or asymmetry. DIAGNOSTIC DATA: Urine is negative for blood, nitrites, and leukocyte esterase. Post void residual was 101 cc, but this was after waiting over 1 hour post void. PSA 10/24/16 0.203 06/26/16 0.140 12/28/15 0.247 160.217 163.39 01/04/20155.65 8154.57 11/20130.128 .38 10/20122.5 08/20110.0172 .32 06/200713.9 BUN and creatinine are 16 and 0.79 respectively within EGFR greater than 60 on 10/24/2016 IMPRESSION: Stage T2c to T3 Keymar 4+3 = 7 adenocarcinoma the prostate, status post radia tion in 2007 with post radiation adjuvant ADT 1.5 years Post radiation PSA recurrence with inte rmittent hormone ablation since 2013, last Lupron was given in December 2015, cu rrently with low PSA PLAN: I have asked Diego to continue with periodic PSA determinations to follow his prostate cancer. I would like to see him after the first of the year with updated labs at that time . I asked Diego to notify me if there were any difficulties voiding, or UTI symptoms, or flan k pain, or for any questions or concerns whatsoever. Diego is instructed to resume his usual and customary care with his primary care provider. This document was generated in part using voice recognition software. Although I have atte mpted to edit the content, I have not thoroughly proofread this note, and insurance office manager erro rs may occur. documented in th is encounter Plan of Treatment +--------+---------+ + + + | Date | Type | Specialty | Care Team | Description | +--------+---------+ + + + | 03/13/ | Office | Urology | Rutledge Jorje | | | 2019 | Visit | | MD [address] | | | | | | [address] | | | | | | [place] [address] | | | | | | [phone] | | | | | | | | +--------+---------+ + + + documented as of this encounter Procedures + +--------+ + + + | Procedure Name | Priori | Date/Time | Associated Diagnosis | Comments | | | ty | | | | + +--------+ + + + | POCT URINALYSIS, | Routin | 10/27/2016 | Prostate cancer | Results for this | | AUTO WITH CONF | e | 10:29 AM | (HCC) | procedure are in the | | | | PDT | | results section. | + +--------+ + + + | IMAGING REPORT - | | 10/27/2016 | | Results for this | | EXTERNAL SCAN | | 12:00 AM | | procedure are in the | | | | PDT | | results section. | + +--------+ + + + | LABS - EXTERNAL SCAN | | 10/24/2016 | | Results for this | | | | 12:00 AM | | procedure are in the | | | | PDT | | results section. | + +--------+ + + + | LABS - EXTERNAL SCAN | | 10/24/2016 | | Results for this | | | | 12:00 AM | | procedure are in the | | | | PDT | | results section. | + +--------+ + + + documented in this encounter Results POCT Urinalysis Dipstick Automated (10/27/2016 10:29 AM PDT) + + + + + [...] 1.001 - 1.030 | | | | [place], | | | | | | UA, [...] + + IMAGING REPORT - EXTERNAL SCAN (10/27/2016 12:00 AM PDT) + + + | Narrative | Performed At | + + + | Ordered by an | | | unspecified provider. | | + + + LABS - EXTERNAL SCAN (10/24/2016 12:00 AM PDT) + + + | Narrative | Performed At | + + + | Ordered by an | | | unspecified provider. | | + + + LABS - EXTERNAL SCAN (10/24/2016 12:00 AM PDT) + + + | [...]
--- OUTSIDE RECORDS SUMMARY | ~2019-02-24 | XMS | Encounter Summary ---
Demographics + + + | Address | [address] | | | [place] [address] | + + + | Home Phone [...] Organization | [facility] | | | and [place] [...] Team Providers + +------+ + | Care Garnett Feeder Name | Role | Phone | [...] | +--------+ + + + + | 04/02/ | Telephone | [facility] [place] | [place], | Results | | 2015 | | PULMONARY [address] | Becca Segura MD | | | | | [place], | | | | | | [place] [address] | | | | | | [phone] | | | +--------+ + + + [...] | | | | | [place] [address] | | | | | | [phone] | | | | | | | | +--------+---------+ + + + documented as of this encounter Visit Diagnoses Not on filedocumented in this encounter"
--- OUTSIDE RECORDS SUMMARY | ~2019-02-24 | XMS | Encounter Summary ---
Demographics + + + | Address | [address] | | | [place] [address] | + + + | Home Phone | | + + + | Preferred Language | Unknown | + + + | Marital Status | | + + + | Anabaptism Affiliation | PRE | + + + | Race | White | + + + | Ethnic Group | Not or | + + + Author + + + | Author | [facility] | + + + | Organization | [facility] | + + + | Address | Unknown | + + + | Phone | Unavailable | + + + Support + + +---------+ + | Name | Relationship | Address | Phone | + + +---------+ + | Andrez Lucas | ECON | Unknown | Unavailable | + + +---------+ + Care Team Providers + +------+ + | Care Deputy Controller Name | Role | Phone | + [...] + + | 06/06/ | Emergency | [facility] | Macy Evans, | | | 2012 | | Department [address] | [address] | | | | | [facility] | [place], [place] | | | | | [facility] | [address] | | | | | [place], [place] | | | | | | [address] | | | | | | [phone] | | | +--------+ + + + [...] + documented in this encounter Discharge Instructions Macy Horn - 06/06/2012Thank you for visiting the [facility] long and for your patience. I am glad we could get the bleeding to stop. In the morning call your primary care doctor to ask about the humidified oxygen. Use [place] twice a day in both nostrils to keep the lining moist. Check in with your PCP in about 1 week to make sure you are doing well. If you have any problems you can call the Ear Nose and Throat doctors/Otolaryngology (Head & Neck Surgery): [phone]. Afrin as needed: if a new episode [...] [facility] | [address] | [place] [address] | | | NAYELI, | ELIECER SALGUERO | | | | TRANSFUSION MEDICINE | [...] | + + + + + | [facility] | [address] | [place] [address] | | | RAFAEL TYLER | ELIECER SALGUERO | | | + [...] 0.7 U/mL | LABORATORY | | | RAFAEL TYLER | + + + + + + + + | Performing | Address | City/State/Zipcode | Phone Number | | Organization | | | | + + + + + | [facility] | [address] | [place] [address] | | | RAFAEL TYLER | ELIECER [...] mech. valves (2.5 - 3.5) INR | NAYELI, CORE | + + + + + + + + | Performing | Address | City/State/Zipcode | Phone Number | | Organization | | | | + + + + + | [facility] | [address] | [place] [address] | | | SERVICES, RAFAEL | [address] | | | [...] [facility] | [address] | [place] [address] | | | SERVICES, | [address] [...] | + + + + + | [facility] | [address] | [place] [address] | | | SERVICES, | [address] [...] | report. | LABORATORY | | | SERVICES, RAFAEL | + + + + + + + + | Performing | Address | City/State/Zipcode | Phone Number | | Organization | | | | + + + + + | [facility] | [address] | [place] [address] | | | SERVICES, CORE | [address] | | | + + + + + documented in this encounter Visit Diagnoses + + | Diagnosis | + + | Epistaxis - Primary | + + documented in this encounter"
--- OUTSIDE RECORDS SUMMARY | ~2019-02-24 | XMS | Encounter Summary ---
Demographics + + + | Address | [address] | | | [place] [address] | + + + | Home Phone | | + + + | Preferred Language | Unknown | + + + | Marital Status | | + + + | Church Affiliation | 1076 | + + + | Race | Unknown | + + + | Ethnic Group | Unknown | + + + Author + + + | Author | [facility] | | | and [place] | + + + | Organization | [facility] [...] Team Providers + +------+ + | Care Airplane First Officer Name | Role | Phone | [...] | pulmonary | Becca B, | [address] [place] | | | | | nodule | MD [address] [place] | | | | | Procedures | [address] [place] [address] | [place], [place] | | | | | CT Chest wo | [place], | [address] | | | | | Contrast | [place] [address] | Phone: | | | | | | | [phone] | | | | | | | Fax: | | | | | | | [phone] | +--------+--------+ + + + + Encounter [...] nodule (Primary Dx) | | | | [place], | | | | | | [place] [address] | | | | | | [phone] | | | +--------+ + + + [...] | | | | | [place] [address] | | | | | | [phone] | | | | | | | | +--------+---------+ + + + documented as of this encounter Results CT Chest wo Contrast (09/06/2012 1:47 PM PDT) + + | Specimen | + + | | + + + + + | Narrative | Performed At | + + + | [facility] | STRYKER | | Department [address] [place] [address] [facility] | | [ rep [address]] [ rep [facility] | | st zip] Signed | - IMAGING | | | | | Patient Name: OLGA LUCAS Physician: | | | MAGDA. : 1935 Age: 76 Sex: M Unit #: [id number] | | | Exam Date: 09/06/12 [place] [facility] | | | Report #: [id number] Page: | | | %(RAD)RES..mtdd.print.filter("pg") of %(RAD) | | | RES..mtdd.print.filter("tpg") | | | | | | Accession Number: [id number] | | | CT CHEST WITHOUT CONTRAST [...] Transcribed | | | Date/Time: 09/06/2012 16:10 Interactive Designer: ALEXSANDRA | | | <<Signature on File>> | | | | | | Gurdeep Diaz MD09/07/12 0729 <Electronically signed by | | | Gurdeep Diaz MD> Gurdeep Diaz MD 09/06/12 | | | 1347 Interactive Designer: eduPad Unkwhlnjrwtzc67/16/13 1610 | | | Becca Castro MD | | + + + + + + + + | Performing | Address | City/State/Zipcode | Phone Number | | Organization | | | | + + + + + | [facility] | [address] | [place] | [phone] | | [facility] | | [address] | | | - IMAGING | | | | + + + + + documented in this encounter Visit Diagnoses + + | Diagnosis | + + | Solitary pulmonary nodule - Primary | + + documented in this encounter
--- OUTSIDE RECORDS SUMMARY | ~2019-02-24 | XMS | Encounter Summary ---
Demographics + + + | Address | [address] | | | [place] [address] | + + + | Home Phone | | + + + | Preferred Language | Unknown | + + + | Marital Status | | + + + | Taoist Affiliation | 1076 | + + + | Race | Unknown | + + + | Ethnic Group | Unknown | + + + Author + + + | Author | [facility] | | | and [place] | + + + | Organization | [facility] | | | and [...] Team Providers + +------+ + | Care Auto Service Representative Name | Role | Phone | [...] + + | 11/29/ | Office | [facility] | Jorje Rutledge | Prostate cancer | | 2018 | Visit | [address] | [address] | ([facility]) (Primary Dx); | | | | [place] | [address] [facility] | Preventative health | | | | [address] | [place] [address] | care | | | | [phone] | [phone] | | | | | | | [...] fracture; COPD (chronic obstructive pulmonary dis ease) ([facility]); Depression; Dermatophytosis tinea capitis; Diverticulosis (01/2015); Essential hypertension; Foot fracture (02/2012); Gastritis (01/2015); GI bleed (01/2015); Heart murmur; Heartburn; Hiatal hernia (01/2015); History of rectal bleeding; Hypoxia; Insomnia; Iron def iciency anemia; Kidney stone (2004); Lumbar disc herniation; Migraines; Mood disorder ([facility]) of unknown (axis III) etiology; Nocturnal hypoxia; Osteoarthritis; Peptic ulcer disease; Pne umonia (05/2012); Prostate cancer ([facility]) (2007); Pulmonary nodules; Seborrheic dermatitis of s calp; Shoulder fracture (02/2012); Supplemental oxygen dependent; SVT (supraventricular tachy cardia) ([facility]) (01/2014); TIA (transient ischemic attack); and Vasovagal [...] g by mouth Daily. Respiratory Therapy Supplies [facility] Please provide an O2 concentrator while Diego [...] This document was generated in part using [employer] voice recognition software. Although ever y effort is made to edit the content, contestant coordinator errors may occur. Occasional wrong word or [...] | | | | | | [place] [address] | | | | | | [phone] | | | | | | | [...] 1.001 - 1.030 | | | | [place], | | | | | | [facility], [...] health care Routine general medical examination at [facility] | | facility | + [...]
--- OUTSIDE RECORDS SUMMARY | ~2019-02-24 | XMS | Encounter Summary ---
Demographics + + + | Address | [address] | | | [place] [address] | + + + | Home Phone | | + + + | Preferred Language | Unknown | + + + | Marital Status | | + + + | Christianity Affiliation | 1076 | + + + | Race | Unknown | + + + | Ethnic Group | Unknown | + + + Author + + + | Author | [facility] | | | and [place] | + + + | Organization | [facility] [...] Team Providers + +------+ + | Care Baseball Umpire For Little League Name | Role | Phone | + +------+ + PCP | Unavailable | + +------+ + Encounter Details +--------+ + + + + | Date | Type | Department | Care Team | Description | +--------+ + + + + | 04/04/ | Hospital | [facility] | | | | 2008 - | Encounter | [facility] | | | | | | CENTER [address] | | | | 04/21/ | | [place] | | | | 2008 | | [address] | | | | | | [phone] | | | +--------+ + + + [...] | | | | | | [place] [address] | | | | | | [phone] | | | | | | | | +--------+---------+ + + + documented as of this encounter Visit Diagnoses Not on filedocumented in this encounter"
--- OUTSIDE RECORDS SUMMARY | ~2019-02-24 | XMS | Encounter Summary ---
Demographics + + + | Address | [address] | | | [place] [address] | + + + | Home Phone | | + + + | Preferred Language | Unknown | + + + | Marital Status | | + + + | Church Affiliation | 1076 | + + + | Race | Unknown | + + + | Ethnic Group | Unknown | + + + Author + + + | Author | [facility] | | | and [place] | + + + | Organization | [facility] | | | and [...] Team Providers + +------+ + | Care Reliner Name | Role | Phone | + +------+ + PCP | Unavailable | + +------+ + Encounter Details +--------+ + + + + | Date | Type | Department | Care Team | Description | +--------+ + + + + | 11/23/ | Hospital | [facility] | | | | 2008 - | Encounter | [facility] | | | | | | CENTER [address] | | | | 12/22/ | | [place] | | | | 2008 | | [address] | | | | | | [phone] | | | +--------+ + + + [...] | | | | | | [place] [address] | | | | | | [phone] | | | | | | | | +--------+---------+ + + + documented as of this encounter Visit Diagnoses Not on filedocumented in this encounter"
--- OUTSIDE RECORDS SUMMARY | ~2019-02-24 | XMS | Encounter Summary ---
Demographics + + + | Address | [address] | | | [place] [address] | + + + | Home Phone | | + + + | Preferred Language | Unknown | + + + | Marital Status | | + + + | Alevism Affiliation | 1076 | + + + | Race | Unknown | + + + | Ethnic Group | Unknown | + + + Author + + + | Author | [facility] | | | and [place] | + + + | Organization | [facility] | | | and [...] Team Providers + +------+ + | Care Generator Operator Straight Bevel Gear Name | Role | Phone | + [...] | | | | pulmonary | Becca Segura | [address] | | | | | nodule | [address] [place] | | | | | Procedures | [address] | [place], [place] | | | | | CT Chest wo | [place], | [address] | | | | | Contrast | [place] [address] | Phone: | | | | | | | [phone] | | | | | | | Fax: | | | | | | | [phone] | +--------+--------+ + + + + Encounter Details +--------+ + + + + | Date | Type | Department | Care Team | Description | +--------+ + + + + | 09/06/ | Hospital | [facility] | Offenstein, | Solitary pulmonary | | 2012 | Encounter | MED CTR XRAY [address] | Becca Segura MD | nodule | | | | [address] [place] | | | | | | [place] [address] | | | | | | [phone] | | | +--------+ + + + [...] documented as of this encounter Progress Notes Roshni Walter RN - 09/07/2012 9:59 AM PDTCall to patient per request of Dr. Castro. To outpatient receptionist to schedule appt and follow up CT one month sooner. documented in this encounter Plan of Treatment +--------+---------+ + + + | Date | Type | Specialty | Care Team | Description | +--------+---------+ + + + | 03/13/ | Office | Urology | Jorje Rutledge | | | 2020 | Visit | | MD [address] | | | | | | [address] [place] | | | | | | [place] [address] | | | | | | [phone] | | | | | | | | +--------+---------+ + + + documented as of this encounter Procedures + +--------+ + + + | Procedure Name | Priori | Date/Time | Associated Diagnosis | Comments | | | ty | | | | + +--------+ + + + | CT CHEST WO CONTRAST | Routin | 09/06/2012 | Solitary pulmonary | Results for this | | | e | 1:47 PM | nodule | procedure are in the | | | | PDT | | results section. | + +--------+ + + + documented in this encounter Results CT Chest wo Contrast (09/06/2012 1:47 PM PDT) + + | Specimen | + + | | + + + + + | Narrative | Performed At | + + + | [facility] Diagnostic Imaging | [place] | | Department [address] [place] [address] | [facility] | | [ rep ct [address]] [ rep ct [facility] | | st zip] Signed | - IMAGING | | | | | Patient Name: DIEGO LUCAS Physician: | | | MAGDA. : 1935 Age: 76 Sex: M Unit #: [id number] | | | Exam Date: 09/06/12 Location: [facility] | | | Report #: [id number] Page: | | | %(RAD)RES..mtdd.print.filter("pg") of %(RAD) | | | RES..mtdd.print.filter("tpg") | | | | | | Accession Number: [id number] | | | CT CHEST WITHOUT CONTRAST [...] Transcribed | | | Date/Time: 09/06/2012 16:10 Watch And Clock Repairer: ALEXSANDRA | | | <<Signature on File>> | | | | | | Gurdeep Diaz MD09/07/12 0729 <Electronically signed by | | | Gurdeep iDaz MD> Gurdeep Diaz MD 09/06/12 | | | 1347 Watch And Clock Repairer: elmenus Mylnejrmikkow33/16/13 1610 | | | Becca Castro MD | | + + + + + + + + | Performing | Address | City/State/Zipcode | Phone Number | | Organization | | | | + + + + + | [address] | [address] | [place] | [phone] | | [facility] | | [address] | | | - IMAGING | | | | + + + + + documented in this encounter Visit Diagnoses + + | Diagnosis | + + | Solitary pulmonary nodule | + + documented in this encounter
--- OUTSIDE RECORDS SUMMARY | ~2019-02-24 | XMS | Encounter Summary ---
Demographics + + + | Address | [address] | | | [place] [address] | + + + | Home Phone [...] + | Organization | [facility] | | | and [...] Team Providers + +------+ + | Care Cd Reactor Operator Head Name | Role | Phone | + +------+ + | Parviz Brar DO | PCP | | + +------+ + Encounter Details +--------+ + + + + | Date | Type | Department | Care Team | Description | +--------+ + + + + | 10/28/ | Orders Only | [facility] [place] | Rupa Watt, | COPD (chronic | | 2012 | | PULMONARY [address] | RN | obstructive | | | | [place], | | pulmonary disease) | | | | [place] [address] | | ([facility]); Nocturnal | | | | [phone] | | hypoxemia | +--------+ + + + + Social [...] [place] | | | | | | [place] [address] | | | | | | [phone] | | | | | | | | +--------+---------+ + + + documented as of this encounter Visit Diagnoses + + | Diagnosis | + + | COPD (chronic obstructive pulmonary disease) (HCC) Chronic airway obstruction, not | | elsewhere classified | + + | Nocturnal hypoxemia Hypoxemia | + + documented in this encounter"
--- OUTSIDE RECORDS SUMMARY | ~2019-02-24 | XMS | Encounter Summary ---
Demographics + + + | Address | [address] | | | [place] [address] | + + + | Home Phone [...] Organization | [facility] | | | and [...] Team Providers + +------+ + | Care Model And Mold Maker Plaster Name | Role | Phone | + [...] + + | 11/17/ | Telephone | [facility] [place] [facility] | Jorje Rutledge | Other (Labs needed | | 2017 | | [address] | [address] | prior to appt. ) | | | | [place] | [address] [facility] | | | | | [address] | [place] [address] | | | | | [phone] | [phone] | | | | | | | [...] | | | | | [place] [address] | | | | | | [phone] | | | | | | | | +--------+---------+ + + + documented as of this encounter Visit Diagnoses Not on filedocumented in this encounter"
--- OUTSIDE RECORDS SUMMARY | ~2019-02-24 | XMS | Encounter Summary ---
Demographics + + + | Address | [address] | | | [place] [address] | + + + | Home Phone [...] + | Organization | [facility] | | | and [...] Team Providers + +------+ + | Care Conveyor Belt Installer Name | Role | Phone | + +------+ + PCP | Unavailable | + +------+ + Encounter Details +--------+ + + + + | Date | Type | Department | Care Team | Description | +--------+ + + + + | 06/24/ Hospital | [facility] | [place], | | | 2012 | Encounter | MED CTR XRAY [address] | Becca eSgura MD | | | | | [place] | | | | | | [place] [address] | | | | | | [phone] | | | +--------+ + + + [...] | | | | | [place] [address] | | | | | | [phone] | | | | | | | | +--------+---------+ + + + documented as of this encounter Visit Diagnoses Not on filedocumented in this encounter"
--- OUTSIDE RECORDS SUMMARY | ~2019-02-24 | XMS | Encounter Summary ---
Demographics + + + | Address | [address] | | | [place] [address] | + + + | Home Phone [...] | Organization | [facility] | | | and [...] Team Providers + +------+ + | Care Opener Tender Name | Role | Phone | + +------+ + | Parviz Brar DO | PCP | | + +------+ + Encounter Details +--------+ + + + + | Date | Type | Department | Care Team | Description | +--------+ + + + + | 04/03/ | Hospital | [facility] | Jorje Rutledge | | | 2016 | Encounter | MED CTR LABORATORY | MD [address] | | | | | [address] [place] | [address] | | | | | [place], [place] | [place] [address] | | | | | [address] | [phone] | | | | | [phone] | | | +--------+ + + + [...] | | | | | [place] [address] | | | | | | [phone] | | | | | | | | +--------+---------+ + + + documented as of this encounter Visit Diagnoses Not on filedocumented in this encounter"
--- OUTSIDE RECORDS SUMMARY | ~2019-02-24 | XMS | Encounter Summary ---
Demographics + + + | Address | [address] | | | [place] [address] | + + + | Home Phone | | + + + | Preferred Language | Unknown | + + + | Marital Status | | + + + | Jehovah'S Witness Affiliation | 1076 | + + + | Race | Unknown | + + + | Ethnic Group | Unknown | + + + Author + + + | Author | [facility] | | | and [place] | + + + | Organization | [facility] | | | [...] Team Providers + +------+ + | Care Geospatial Engineer Name | Role | Phone | [...] [address] | | | | | [place], [place] | [address] [facility] | | | | | [address] | [place] [address] | | | | | [phone] | [phone] | | | | | | | [...] | | | | | [place] [address] | | | | | | [phone] | | | | | | | | +--------+---------+ + + + documented as of this encounter Visit Diagnoses Not on filedocumented in this encounter"
--- OUTSIDE RECORDS SUMMARY | ~2019-02-24 | XMS | Encounter Summary ---
Demographics + + + | Address | [address] | | | [place] [address] | + + + | Home Phone | | + + + | Preferred Language | Unknown | + + + | Marital Status | | + + + | Restorationism Affiliation | 1076 | + + + | Race | Unknown | + + + | Ethnic Group | Unknown | + + + Author + + + | Author | [facility] | | | and [place] | + + + | Organization | [facility] | | [...] Team Providers + +------+ + | Care Airbrush Artist Name | Role | Phone | + +------+ + | Parviz Brar DO | PCP | | + +------+ + Reason for Visit + + + | Reason | Comments | + + + | GI Bleeding | Pill cam | + + + Encounter Details +--------+---------+ + + + | Date | Type | Department | Care Team | Description | +--------+---------+ + + + | 10/13/ | Office | [facility] | Marc Odell | Gastrointestinal | | 2017 | Visit | GASTROENTEROLOGY | MD [address] | hemorrhage, | | | | [address] [place] | [address] [place] | unspecified | | | | [address] [place], [place] | [place] [address] | gastrointestinal | | | | [address] | [phone] | hemorrhage type | | | | [phone] | | (Primary Dx) | +--------+---------+ + + + Social History [...] + + + | Blood Pressure | 118/64 | 10/13/2016 8:04 AM | | | | | PDT | | + + + + + | Pulse | 84 | 10/13/2016 8:04 AM | | | | | PDT | | + + + + + | Temperature | - | - | | + + + + + | Respiratory Rate | 18 | 10/13/2016 8:04 AM | | | | | PDT | | + + + + + | Oxygen Saturation | - | - | | + + + + + | Inhaled Oxygen | - | - | | | Concentration | | | | + + + + + | Weight | 77.6 kg (171 lb) | 10/13/2016 8:04 AM | | | | | PDT | | + + + + + | Height | 177.8 cm (5' 10") | 10/13/2016 8:04 AM | | | | | PDT | | + + + + + | Body Mass Index | 24.54 | 10/13/2016 8:04 AM | | | | | PDT | | + + + + + documented in this encounter Progress Notes Maribell Cleary RN - 10/13/2016 8:30 AM PDTPatient signed consent form; sensors appl ied and pill swallowed at 8:20; reviewed with pt how to view recorder, what to look for when it reaches the large colon so he can return; advised he could have clear liquids in 2 hrs a nd light lunch in 4 hrs; recommended he return by 3pm or 4pm or sooner as instructed. He wa s going to remain in [place] rather than [facility] signed by Maribell Cleary RN at 11/10/2016 9:23 AM PDTdocumented in this encounter Plan of Treatment +--------+---------+ + + + | Date | Type | Specialty | Care Team | Description | +--------+---------+ + + + | 03/13/ | Office | Urology | Jorje Rutledge | | | 2019 | Visit | | MD [address] | | | | | | [address] | | | | | | [place] [address] | | | | | | [phone] | | | | | | | | +--------+---------+ + + + documented as of this encounter Procedures + +--------+ + + + | Procedure Name | Priori | Date/Time | Associated Diagnosis | Comments | | | ty | | | | + +--------+ + + + | IMAGING REPORT - | | 10/13/2016 | | Results for this | | EXTERNAL SCAN | | 12:00 AM | | procedure are in the | | | | PDT | | results section. | + +--------+ + + + documented in this encounter Results IMAGING REPORT - EXTERNAL SCAN (10/13/2016 12:00 AM PDT) + + + | [...]
--- OUTSIDE RECORDS SUMMARY | ~2019-02-24 | XMS | Encounter Summary ---
Demographics + + + | Address | [address] | | | [place] [address] | + + + | Home Phone [...] + + | Author | [facility] | | | and [place] | + + + | Organization | [facility] | | | and [...] Team Providers + +------+ + | Care Munitions Handler Supervisor Name | Role | Phone | [...] | | | MD [address] | [place], | | | | | | [address] | [place] [address] | | | | | | [place], | Phone: | | | | | | [place] [address] | [phone] | | | | | | | Fax: | | | | | | | [phone] | +--------+ + + + + + Reason for Visit +--------+ + | Reason | Comments | +--------+ + | COPD | follow up from hospital | +--------+ + Encounter Details +--------+---------+ + + + | Date | Type | Department | Care Team | Description | +--------+---------+ + + + | 03/06/ | Office | [facility] | [place], | Chronic obstructive | | 2016 | Visit | PULMONARY [address] | Billy Segura MD | pulmonary disease, | | | | [address] [place], | | unspecified COPD | | | | [place] [address] | | type (HCC); | | | | [phone] | | Nocturnal hypoxemia | | | | | | due to emphysema | | | | | | ([facility]); Prostate | | | | | | cancer ([facility]) | +--------+---------+ + + + Social History [...] COPD. In January, he went in to [facility] after having a GI bleed, [...] exercising reg ularly. He is walking at [facility] as it has been too cold to walk outside. He has not been coughing much. He had hemoptysis only for a couple of days, and this resol ed. He has been evaluated for nocturnal oxygen and does use it. He is currently on 2 LPM at [facility]. He reports good compliance. He required as much as 10L of oxygen in the hospital. Past Medical History Past Medical History Diagnosis Date Peptic ulcer disease with upper GI bleed Benign prostatic hypertrophy Osteoarthritis Heartburn Pulmonary nodules Shoulder fracture 02/2012 Foot fracture 02/2012 SVT (supraventricular tachycardia) 01/[address] Wilder for ablation Depression Prostate cancer ([facility]) 2007 s/p radiation treatment and on hormonal treatment with Lupron; DR BARKLEY [place] COPD (chronic obstructive pulmonary disease) ([facility]) DR BILLY CASTRO Pneumonia 05/2012 [address] [facility] Heart murmur DR MARIAA OLIVERA Cataracts, [...] MD; Location: [facility] ELECTROPHYSIOLOGY Egd and colonoscopy 02/06/2015 Dr. Arellano [...] No other animal exposures. Grew up in [place]. Then lived in [place]. Then moved to [place]. In the service lived [facility] and [place]. No recent travel. Allergies: Allergies Allergen Reactions [...] AILY 1 Inhaler 1 Respiratory Therapy Supplies [facility] Please provide an O2 concentrator while Diego [...] Chronic obstructive pulmonary disease, unspecified COPD type ([facility]) J44.9 496 On Breo wit h good symptomatic improvement. Given that his anemia is also correcting, this likely accoun ts for some of his symptom improvement. He can switch the Atrovent to as needed only. 2. 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 We will continue this. G47.36 327.26 3. Prostate cancer ([facility]) C61 185 On Lupron therapy and followed [...] made to ensure accuracy; however, inadvertent computerized spring salvage worker errors may be pre sent. documented [...] | | | | | [place] [address] | | | | | | [phone] | | | | | | | [...]
--- OUTSIDE RECORDS SUMMARY | ~2019-02-24 | XMS | Encounter Summary ---
Demographics + + + | Address | [address] | | | [place] [address] | + + + | Home Phone [...] Author | [facility] | | | and [place] | + + + | Organization | [facility] [...] Team Providers + +------+ + | Care Justowriter Operator Name | Role | Phone | [...] [address] | | | | | [place], [place] | [address] [facility] | | | | | [address] | [place] [address] | | | | | [phone] | [phone] | | | | | | | [...] | | | | | [place] [address] | | | | | | [phone] | | | | | | | | +--------+---------+ + + + documented as of this encounter Visit Diagnoses Not on filedocumented in this encounter"
--- OUTSIDE RECORDS SUMMARY | ~2019-02-24 | XMS | Encounter Summary ---
Demographics + + + | Address | [address] | | | [place] [address] | + + + | Home Phone [...] + | Organization | [facility] | | | and [place] [...] Team Providers + +------+ + | Care Wet Silk Hanger Name | Role | Phone | + [...] + + | 10/27/ | Office | [facility] | Jorje Rutledge | Prostate cancer | | 2017 | Visit | [address] | [address] | ([facility]) (Primary Dx) | | | | [place], [place] | [facility] | | | | | [address] | [place] [address] | | | | | [phone] | [phone] | | | | | | | [...] bilateral; COPD (chronic obstructive pu lmonary disease) ([facility]); Depression; Diverticulosis (01/2015); Foot fracture (02/2012); Gastri tis (01/2015); GI bleed (01/2015); Heart murmur; Heartburn; Hiatal hernia (01/2015); History of rectal bleeding; Hypertension; Insomnia; Kidney stone (2004); Lumbar disc herniation; Mi graines; Mood disorder ([facility]) of unknown (axis III) etiology; Nocturnal hypoxia; Osteoarthrit is; Peptic ulcer disease; Pneumonia (05/2012); Prostate cancer ([facility]) (2007); Pulmonary nodule s; Shoulder fracture (02/2012); Supplemental oxygen dependent; SVT (supraventricular tachycar anushka) ([facility]) (01/2014); and TIA (transient ischemic attack). Past [...] PO) Take by mouth. 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 documented in th [...] | | | | | [place] [address] | | | | | | [phone] | | | | | | | [...] 1.001 - 1.030 | | | | [place], | | | | | | [facility], [...]
--- OUTSIDE RECORDS SUMMARY | ~2019-02-24 | XMS | Encounter Summary ---
Demographics + + + | Address | [address] | | | [place] [address] | + + + | Home Phone [...] | Organization | [facility] | | | and [place] [...] Team Providers + +------+ + | Care Tractor Operator Name | Role | Phone | + +------+ + PCP | Unavailable | + +------+ + Encounter Details +--------+ + + + + | Date | Type | Department | Care Team | Description | +--------+ + + + + | 07/17/ | Hospital | [facility] | [place], | | | 2011 | Encounter | MED CTR XRAY [address] | Becca Segura MD | | | | | [place] | | | | | | [place] [address] | | | | | | [phone] | | | +--------+ + + + [...] | | | | | | [place] [address] | | | | | | [phone] | | | | | | | | +--------+---------+ + + + documented as of this encounter Procedures + +--------+ + + + | Procedure Name | Priori | Date/Time | Associated Diagnosis | Comments | | | ty | | | | + +--------+ + + + | CT CHEST WO CONTRAST | | 09/08/2011 | | Results for this | | | | 1:04 PM | | procedure are in the | | | | PDT | | results section. 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 COMPARISON STUDY: 05/2011 FINDINGS: | | | The bilateral noncalcified pulmonary nodules are stable. There is | | | no progression. No suspicious morphology is identified. There is | | | an extensive background of centrilobular emphysema. There is no | | | pleural or pericardial effusion. There are stable interstitial | | | changes at the bases with bronchial thickening and minor | | | bronchiectasis right greater than left. There is a new small focal | | | linear streaky infiltrate within the anterior segment of the right | | | upper lobe. No gross mediastinal adenopathy is seen. Coronary | | | artery vascular calcification is noted. Partially imaged upper | | | abdominal structures without contrast demonstrate stable | | | low-attenuation lesions of the liver probably representing benign | | | cysts. No bony metastatic lesions are identified. IMPRESSION: | | | 1. STABLE BILATERAL PULMONARY NODULES. 2. EXTENSIVE | | | CENTRILOBULAR EMPHYSEMA. 3. BRONCHIAL THICKENING WITH | | | PREDOMINANTLY BASILAR BRONCHIECTASIS. 4. NEW SMALL FOCAL AREA OF | | | INFILTRATE INVOLVING THE ANTERIOR SEGMENT OF THE RIGHT UPPER LOBE | | | ADJACENT TO THE HORIZONTAL FISSURE. 5. PROBABLE BENIGN HEPATIC | | | CYSTS. Dictated Date/Time: 09/09/2011 13:51 Transcribed | | | Date/Time: 09/09/2011 14:01 Mis Specialist: | | | <Electronically Signed by Krzysztof Jewell MD> 09/10/11 0719 | | + + + + + | Procedure Note | + + | [facility] Conversion - 03/31/2013 5:43 PM [facility] | | Diagnostic Imaging Department | | [address] [facility] | | | | | | | | CHEST CT WITHOUT CONTRAST, August | | | | CLINICAL HISTORY: PROSTATE CARCINOMA AND PULMONARY NODULES, FOR FOLLOWUP. | | | | COMPARISON STUDY: 05/2011 | | | | FINDINGS: The bilateral noncalcified pulmonary nodules are stable. There is | | no progression. No suspicious morphology is identified. There is an extensive | | background of centrilobular emphysema. There is no pleural or pericardial | | effusion. There are stable interstitial changes at the bases with bronchial | | thickening and minor bronchiectasis right greater than left. There is a new | | small focal linear streaky infiltrate within the anterior segment of the right | | upper lobe. No gross mediastinal adenopathy is seen. Coronary artery vascular | | calcification is noted. Partially imaged upper abdominal structures without | | contrast demonstrate stable low-attenuation lesions of the liver probably | | representing benign cysts. No bony metastatic lesions are identified. | | | | IMPRESSION: | | 1. STABLE BILATERAL PULMONARY NODULES. | | | | 2. EXTENSIVE CENTRILOBULAR EMPHYSEMA. | | | | 3. BRONCHIAL THICKENING WITH PREDOMINANTLY BASILAR BRONCHIECTASIS. | | | | 4. NEW SMALL FOCAL AREA OF INFILTRATE INVOLVING THE ANTERIOR SEGMENT OF THE | | RIGHT UPPER LOBE ADJACENT TO THE HORIZONTAL FISSURE. | | | | 5. PROBABLE BENIGN HEPATIC CYSTS. | | | | Dictated Date/Time: 09/09/2011 13:51 | | Transcribed Date/Time: 09/09/2011 14:01 | | Mis Specialist: | | <Electronically Signed by Krzysztof Jewell MD> 09/10/11 0719 | + + + +---------+ + + | Performing | Address | City/State/Zipcode | Phone Number | | Organization | | | | + +---------+ + + | [place] | | | | | [facility] | | | | + +---------+ + + documented in this encounter Visit Diagnoses Not on filedocumented in this encounter"
--- OUTSIDE RECORDS SUMMARY | ~2019-02-24 | XMS | Encounter Summary ---
Demographics + + + | Address | [address] | | | [place] [address] | + + + | Home Phone [...] | Organization | [facility] | | | and [...] Team Providers + +------+ + | Care Building Carpenter Helper Name | Role | Phone | + +------+ + PCP | Unavailable | + +------+ + Encounter Details +--------+ + + + + | Date | Type | Department | Care Team | Description | +--------+ + + + + | 03/31/ | Hospital | [facility] | | | | 1994 | Encounter | [facility] | | | | | | [address] | | | | | | [place] | | | | | | [address] | | | | | | [phone] | | | +--------+ + + + [...] | | | | | | [place] [address] | | | | | | [phone] | | | | | | | | +--------+---------+ + + + documented as of this encounter Visit Diagnoses Not on filedocumented in this encounter"
--- OUTSIDE RECORDS SUMMARY | ~2019-02-24 | XMS | Encounter Summary ---
Demographics + + + | Address | [address] | | | [place] [address] | + + + | Home Phone | | + + + | Preferred Language | Unknown | + + + | Marital Status | | + + + | Uatsdin Affiliation | PRE | + + + | Race | White | + + + | Ethnic Group | Not or | + + + Author + + + | Author | [facility] | + + + | Organization | [facility] | + + + | Address | Unknown | + + + | Phone | Unavailable | + + + Support + + +---------+ + | Name | Relationship | Address | Phone | + + +---------+ + | Andrez Lucas | ECON | Unknown | Unavailable | + + +---------+ + Care Team Providers + +------+ + | Care Drier Tender Name | Role | Phone | [...] intranasal control | | | | Rd TNFANNY [address] | [address] | of epistaxis; | | | | Hospital Admitting | [place], [place] | ethmoid artery | | | | Desk Located on the | [address] | ligation; maxillary | | | | 9th floor | [phone] | sinus lavage | | | | [place], [place] | | | | | | [address] | | | +--------+---------+ + + + [...] medications Details oxymetazoline 0.05 % Nasal Aerosol, [place] Instill 2 Sprays into each nostril every six hour s as needed (Epistaxis). Use for only 3 days. sodium chloride 0.65 % Nasal Aerosol, [place] Instill 2 Sprays in nose every two [...] concerning symptoms, call Dr. Cherry's clinic at [phone]. If you fee l you are having [...] Wednesday for packing removal at 2:30 pm. [facility] [phone] for questions. Destination: Destination: [facility] Condition on Discharge Good Vitals on [...] | | | 13 | | | [place] | every six hours as | | [...] | | 13 | | | Aerosol, [place] | while awake. | | | | [...] AM PDT PATIENT NAME: Diego Lucas MR#: [id number] : 1935 PRIMARY CARE PROVIDER: Parviz Brar, [...] though he uses supplemental oxygen at his senior living [facility]. ASSESSMENT: Mr. Lucas remains hospitalized for epistaxis [...] pack removal on Wednesday. Fredrick Cherry M.D. Protozoologist Laryngology and Head & Neck Surgery [facility] DEPARTMENT: ENT LARYNGOLOGY PPV - [phone] Place of Service: [id number] - Date of Service: 06/14/2012 CSN: [id number] Suggested Modifiers: GC - Resident Involved Suggested Level of Care: 39807 - Discharge Day mgmt up to 30 min Fredrick Villasenor MD - 06/13/2012 11:21 PM PDT PATIENT NAME: Diego Lucas [facility] MR#: [id number] : 1935 PRIMARY CARE PROVIDER: Parviz Brar, [...] if still not bleeding. Fredrick Cherry M.D. Protozoologist Laryngology and Head & Neck Surgery [facility] DEPARTMENT: ENT LARYNGOLOGY PPV - [phone] Place of Service: [id number] - Date of Service: 06/13/2012 CSN: [id number] Suggested Modifiers: GC - Resident Involved Suggested Level of Care: 00078 - Subsequent, Prob Foc/low complex 15 min Rush Mahmood MD - 06/13/2012 12:16 PM PDT [facility] Department of Surgery ENT Head & [...] -Recheck crit tomorrow am Dispo: Back to [facility] tomorrow. Dr. Fredrick Cherry MD is the attending of record for this patient encounter. RUSH MOSS MD PGY-1, Plastic and Reconstructive Surgery pgr [phone] Diagnoses: 784.7 Epistaxis 985939 Anemia Meds: amLODIPine (aka NORVASC) tablet 5 [...] (aka AFRIN) 0.05 % nasal spray 2 [place], 2 [place], both nostrils, Q6H polyethylene glycol (aka MIRALAX) powder 17 g, 17 g, Oral, DAILY promethazine (aka PHENERGAN) injection 12.5 mg, 12.5 mg, Intravenous, Q6H PRN sodium chloride (aka OCEAN) 0.65 % nasal spray 2 [place], 2 [place], Nasal, Q2H [place] tamsulosin (aka FLOMAX) capsule 0.4 mg, 0.4 mg, Oral, QPM temazepam (aka RESTORIL) capsule 15 mg, 15 mg, Oral, HS PRN Fredrick Villasenor MD - 06/12/2012 9:17 PM PDT PATIENT NAME: Diego Lucas [facility] MR#: [id number] : 1935 PRIMARY CARE PROVIDER: Parviz Brar [...] equal. Vision is grossly intact on the wi ght. There is no red desaturation. The [...] Observe for resumed bleeding. Fredrick Cherry M.D. Protozoologist Laryngology and Head & Neck Surgery [facility] DEPARTMENT: ENT LARYNGOLOGY [facility] - [phone] Place of Service: 55190 - Date of Service: 06/12/2012 CSN: [id number] Suggested Modifiers: GC - Resident Involved Suggested Level of Care: 37518 - Subsequent, Prob Foc/low complex 15 min [...] (aka AFRIN) 0.05 % nasal spray 2 [place], 2 [place], both nostrils, Q6H, Oc Cochran MD, 2 [place] at 06/11/12 0218 polyethylene glycol (aka MIRALAX) powder 17 g, 17 g, Oral, DAILY, Oc Cochran MD, 17 g at 06/10/12 0837 promethazine (aka PHENERGAN) injection 12.5 mg, 12.5 mg, Intravenous, Q6H PRN, Oc Cochran MD, 12.5 mg at 06/10/12 2210 sodium chloride (aka OCEAN) 0.65 % nasal spray 2 [place], 2 [place], Nasal, Q2H [place], Mary Myers MD, 2 [place] at 06/12/12 0127 tamsulosin (aka FLOMAX) capsule [...] Oc Cochran MD, 250 mg at 06/10/12 1847 ceFAZolin (aka ANCEF) IV 1 g, 1 [...] (aka AFRIN) 0.05 % nasal spray 2 [place], 2 [place], both nostrils, Q6H, Oc Cochran MD, 2 [place] at 06/11/12 0218 polyethylene glycol (aka MIRALAX) powder 17 g, 17 g, Oral, DAILY, Oc Cochran MD, 17 g at 06/10/12 0837 promethazine (aka PHENERGAN) injection 12.5 mg, 12.5 mg, Intravenous, Q6H PRN, Oc Cochran MD, 12.5 mg at 06/10/12 2210 sodium chloride (aka OCEAN) 0.65 % nasal spray 2 [place], 2 [place], Nasal, Q2H [place], Mary Myers MD, 2 [place] at 06/10/12 2234 tamsulosin (aka FLOMAX) capsule [...] (aka AFRIN) 0.05 % nasal spray 2 [place], 2 [place], both nostrils, Q6H, Oc Cochran MD, 2 [place] at 06/10/12 0215 polyethylene glycol (aka MIRALAX) [...] Otolaryngology Head and Neck Surgery PGY2 pager [phone] documented in this enco unter Plan of [...] | | | een | | | [address] | | | | | | 3 [...] view image for the detailed interpretation from [employer] results. | CARDIOLOGY | + + + + + + + + | Performing | Address | City/State/Zipcode | Phone Number | | Organization | | | | + + + + + | [facility] | [address] | [place], [place] | | | CARDIOLOGY | [address] | [address] | | + + + + + RAINBOW HOLD TUBE - PURPLE TOP (06/13/2012 7:17 PM PDT) + + | Specimen | + + | Blood - Blood | + + + + + + + | Performing | Address | City/State/Zipcode | Phone Number | | Organization | | | | + + + + + | [facility] | [address] | [place] [address] | | | SERVICES, CORE | EL[address]ECER [...] | | | LABORATORY | | | GUINEAN | | | SERVICES, | | | [...] | + + + + + | [facility] | [address] | [place] [address] | | | SERVICES, CORE | [address] | | | + + + + + TROPONIN I, PLASMA (06/13/2012 7:17 PM PDT) + +-------+ + + + | Component | Value | Ref Range | Performed | Pathologist | | | | | At | Signature | + +-------+ + + + | TROPONIN I | <0.02 | <0.80 ng/mL | [facility] | | | | | | LABORATORY [...] | + + + + + | [facility] | [address] | [place] [address] | | | SERVICES, CORE | PARK [...] | + + + + + | [facility] | [address] [facility] | [place] [address] | | | SERVICES, [facility] | [address] | | | + + + + + OPERATION RECORD (06/13/2012 3:45 PM PDT) + + | Transcriptions | + + | Janeth Casiano MD - 06/12/2012 11:40 PM PDT Date: | | 06/11/2012ttending Surgeon: Fredrick Cherry M.D.Special Procedures Tech(s): | | Janeth Casiano M.D. | | [...] of Avitene along the ethmoid bone. Aquarter-inch [place] was | | then placed and the [...] | pulsations just anterior tothis. Using a [place] elevator we then made an incision | [...] | | Elmer Casiano.Fredrick Cherry M.D.LALA / [id number] / [id number] / [id number] / T: | | 06/12/2012 | |superior [...] just anterior to | |this. Using a [place] elevator we then made an incision through [...] | | | |JGL / HS | |[id number] / [id number] / [id number] / | | | | | + [...] [facility] | [address] | [place] [address] | | | SERVICES, CORE | PARK [...] | + + + + + | [facility] | [address] | [place] [address] | | | SERVICES, CORE | ELIECER [...] | + + + + + | [facility] | [address] | [place] [address] | | | RAFAEL TYLER | ELIECER [...] [facility] | [address] | [place], [place] | | | CESAR POINT OF CARE | [address] | [address] | | | TESTS | | | [...] [facility] | [address] | [place], [place] | | | CESAR POINT OF CARE | [facility] | [address] | | | TESTS | | | [...] + + + + | PRODUCT | [id number] | | [facility] | | | UNIT [...] + + + + | BLOOD | 82309 | | [facility] | | | PRODUCT [...] | + + + + + | [facility] [place] | [address] | [place] [address] | | | PATHOLOGY | [address] [...] + + + + | PRODUCT | [id number] | | [facility] | | | UNIT [...] + + + + | BLOOD | 62441 | | [facility] | | | PRODUCT [...] | + + + + + | [facility] | [address] | [place] [address] | | | PATHOLOGY | [address] [...] view image for the detailed interpretation from [employer] results. | CARDIOLOGY | + + + + + + + + | Performing | Address | City/State/Zipcode | Phone Number | | Organization | | | | + + + + + | [facility] | [address] | [place], [place] | | | CARDIOLOGY | [facility] | [address] | | + + + + + [...] | + + + + + | [facility] | [address] | [place] [address] | | | SERVICES, CORE | PARK [...] [facility] | [address] | [place] [address] | | | SERVICES, CORE | ELIECER [...] | + + + + + | [facility] | [address] | [place] [address] | | | SERVICES, CORE | PARK [...] + + + + | PRODUCT | [id number] | | [facility] | | | UNIT [...] + + + + | BLOOD | 31883 | | [facility] | | | PRODUCT [...] DEPARTMENT OF | [address] | [place] [address] | | | PATHOLOGY | [address] [...] + + + + | PRODUCT | [id number] | | [facility] | | | UNIT [...] + + + + | BLOOD | 23399 | | [facility] | | | PRODUCT [...] | + + + + + | [facility] [place] [place] | [address] | [place] [address] | | | PATHOLOGY | [address] [...] + + + + | PRODUCT | [id number] | | [facility] | | | UNIT [...] + + + + | BLOOD | 82886 | | [facility] | | | PRODUCT [...] DEPARTMENT OF | [address] | [place] [address] | | | PATHOLOGY | [address] [...] | + + + + + | [facility] | [address] [facility] | [place] [address] | | | SERVICES, CORE | ELIECER [...] | | | LABORATORY | | | GUINEAN | | | SERVICES, | | | [...] the MDRD equation recommended by the | [facility] | | National Kidney Disease Education [...] | + + + + + | [facility] | [address] | [place] [address] | | | NAYELI, RAFAEL | ELIECER [...] [facility] | [address] | [place] [address] | | | SERVICES, CORE | ELIECER [...] | + + + + + | [facility] | [address] | [place] [address] | | | SERVICES, CORE | ELIECER [...] | | | | | | M.D. CANCELING AND CUTTING CONTROL CLERK SURGEONS: | | | | | | [...] | | | | | Bentson wire,a 6-Greenlandic | | | | | | short sheath was | | | | | | placed. Through the | | | | | | 6-Greenlandic shortsheath, a | | | | | | 6-Greenlandic Envoy was | | | | | [...] [facility] | [address] | [place] [address] | | | SERVICES, | [address] [...] [facility] | [address] | [place] [address] | | | SERVICES, | [address] [...] [facility] | [address] | [place] [address] | | | SERVICES, CORE | PARK [...] [facility] | [address] | [place], [place] | | | [facility] | [facility] | [address] | | | TESTS | | | [...]
--- OUTSIDE RECORDS SUMMARY | ~2019-02-24 | XMS | Encounter Summary ---
Demographics + + + | Address | [address] | | | [place] [address] | + + + | Home Phone | | + + + | Preferred Language | Unknown | + + + | Marital Status | | + + + | Druze Affiliation | 1076 | + + + | Race | Unknown | + + + | Ethnic Group | Unknown | + + + Author + + + | Author | [facility] | | | and [place] | + + + | Organization | [facility] | [...] Team Providers + +------+ + | Care Nail Puller Name | Role | Phone | + +------+ + | Parviz Brar DO | PCP | | + +------+ + Encounter Details +--------+ + + + + | Date | Type | Department | Care Team | Description | +--------+ + + + + | 07/01/ | Abstract | [facility] | Jorje Rutledge | | | 2016 | | [address] | [address] | | | | | [place], [place] | [address] | | | | | [address] | [place] [address] | | | | | [phone] | [phone] | | | | | | | [...] | | | | | [place] [address] | | | | | | [phone] | | | | | | | | +--------+---------+ + + + documented as of this encounter Procedures + +--------+ + + + | Procedure Name | Priori | Date/Time | Associated Diagnosis | Comments | | | ty | | | | + +--------+ + + + | EXTERNAL LAB: [facility] | Routin | 06/29/2015 | | Results for this | | SCREEN | e | 10:00 AM | | procedure are in the | | | | PDT | | results section. | + +--------+ + + + documented in this encounter Results External Lab: [facility], Screen (06/29/2015 10:00 AM PDT) + +-------+ [...] + | REFERENCE LAB | [address] | [place] [address] | [phone] | | [facility] | | | | + + + + + | REFERENCE LAB | [address] | [place] [address] | [phone] | | [facility] | | | | + + + + + documented in this encounter Visit Diagnoses Not on filedocumented in this encounter"
--- OUTSIDE RECORDS SUMMARY | ~2019-02-24 | XMS | Encounter Summary ---
Demographics + + + | Address | [address] | | | [place] [address] | + + + | Home Phone [...] Organization | [facility] [...] Team Providers + +------+ + | Care Academic Director Name | Role | Phone | [...] + + | 04/27/ | Telephone | [facility] | Marc Odell | Lab Order | | 2018 | | GASTROENTEROLOGY | MD [address] | | | | | [address] [place] | [address] | | | | | [address] [place], [place] | [place] [address] | | | | | [address] | [phone] | | | | | [phone] | | | +--------+ + + + [...] | | | | | | [place] [address] | | | | | | [phone] | | | | | | | [...]
--- OUTSIDE RECORDS SUMMARY | ~2019-02-24 | XMS | Encounter Summary ---
Demographics + + + | Address | [address] | | | [place] [address] | + + + | Home Phone [...] | Organization | [facility] | | [...] Team Providers + +------+ + | Care Job Hand Name | Role | Phone | + [...] [place] | | | | | [place], [place] | [address] | | | | | [address] | [phone] | | | | | [phone] | | | +--------+ + + + [...] | | | | | [place] [address] | | | | | | [phone] | | | | | | | [...] TR | | | Vmax: 3.24 m/s Plate Corrector: MARIUM Authenticated by: Sailaja | | | [...] cmLVIDd: 4.16 cmLVPWd: 0.99 cmLVOT Area: 3.08 du2HTPI Diam: | | 1.98 cm%FS: 18.59 %EF(Teich): [...] mlLAESV Index (A-L): 27.33 ml/m2LAAs A2C: 18.95 [id number] A-L A2C: 56.88 | | mlLALs A2C: 5.36 cmLAAs A4C: 17.45 [id number] A-L A4C: 50.86 mlLALs A4C: 5.08 | | cmRAAs: 13.90 [id number] A-L: 34.51 mlRAESV MOD: 32.71 mlRALs: 4.75 cmTAPSE: | | 1.79 cmAV maxP.58 mmHgAV meanP.29 mmHgAV Vmax: 1.62 m/Cecy Vmean: 1.18 | | m/Cecy VTI: 31.29 cmAVA Vmax: 3.05 cm2AVA (VTI): 3.05 [id number] Vmax: 0.00 | | cm2/m2AVAI (VTI): 0.00 cm2/m2LVOT maxP.38 mmHgLVOT meanP.72 mmHgLVSI | | Dopp: 47.36 ml/m2LVSV Dopp: 95.67 mlLVOT Vmax: 1.61 m/sLVOT Vmean: 1.10 m/sLVOT | | VTI: 30.97 cmMV A Justin: 0.89 m/sMV DecT: 265.07 msMV E Justin: 0.58 m/sMV E/A Ratio: | | 0.65MV PHT: 76.87 msMVA By PHT: 2.86 [id number] e': 0.04 m/sSeptal E/e': | | 12.88Lateral e': 0.09 m/sLateral E/e': 6.53RAP: 5 mmHgRVSP: 47.14 mmHgTR maxPG: | | 42.14 mmHgTR Vmax: 3.24 m/s Plate Corrector: DHAuthenticated by: Sailaja Rocha | | Date/Time: [...] |TR Vmax: 3.24 m/s | | | |Plate Corrector: | |Authenticated by: Sailaja Niño | |Report [...]
--- OUTSIDE RECORDS SUMMARY | ~2019-02-24 | XMS | Encounter Summary ---
Demographics + + + | Address | [address] | | | [place] [address] | + + + | Home Phone [...] | Organization | [facility] | | | and [...] Team Providers + +------+ + | Care Administrative Clerk Name | Role | Phone | [...] + + | 01/27/ | Refill | [facility] | J[place]je [place] | Medication Refill | | 2019 | | [address] | [address] | | | | | [place], [place] | [address] [facility] | | | | | [address] | [place] [address] | | | | | [phone] | | | | | | | [...] | | | | | [place] [address] | | | | | | [phone] | | | | | | | | +--------+---------+ + + + documented as of this encounter Visit Diagnoses Not on filedocumented in this encounter"
--- OUTSIDE RECORDS SUMMARY | ~2019-02-24 | XMS | Encounter Summary ---
Demographics + + + | Address | [address] | | | [place] [address] | + + + | Home Phone [...] Organization | [facility] | [...] Team Providers + +------+ + | Care Isotope Technician Name | Role | Phone | + +------+ + | Parviz Brar DO | PCP | | + +------+ + Reason for Visit +--------+ + | Reason | Comments | +--------+ + | Other | follow up with CXR | +--------+ + Encounter Details +--------+ + + + + | Date | Type | Department | Care Team | Description | +--------+ + + + + | 02/19/ | Telephone | [facility] | [place], | Other (follow up | | 2014 | | PULMONARY [address] | Becca Segura MD | with CXR) | | | | [place], | | | | | | [place] [address] | | | | | | [phone] | | | +--------+ + + + [...] | | | | | | [place] [address] | | | | | | [phone] | | | | | | | | +--------+---------+ + + + documented as of this encounter Results XR Chest PA and Lateral (03/06/2015 10:29 AM PST) + + | Specimen | + + | | + + + + + | Narrative | Performed At | + + + | XR CHEST PA AND LATERAL 03/06/2015 10:29 AM HISTORY: f/u | [facility] | | pneumonia. COMPARISON: Multiple priors. Findings: Heart size | [facility] | | is within normal limits. There [...] ST. | [address] | [place], [place] | [phone] | | [facility] | | [address] | | | - IMAGING | | | | + + + + + documented in this encounter Visit Diagnoses + + | Diagnosis | + + | Pneumonia of left lower lobe due to infectious organism (HCC) - Primary | + + documented in this encounter"
--- OUTSIDE RECORDS SUMMARY | ~2019-02-24 | XMS | Encounter Summary ---
Demographics + + + | Address | [address] | | | [place] [address] | + + + | Home Phone [...] | Organization | [facility] | | | and [...] Team Providers + +------+ + | Care Ductfixing Plumber Name | Role | Phone | + [...] | with CXR) | | | | [place], | | | | | | [place] [address] | | | | | | [phone] | | | +--------+ + + + [...] | | | | | [place] [address] | | | | | | [phone] | | | | | | | [...] ST. | [address] | [place], [place] | [phone] | | [facility] | | [address] | | | - IMAGING | | | | + + + + + documented in this encounter Visit Diagnoses + + | Diagnosis | + + | Pneumonia of left lower lobe due to infectious organism (HCC) - Primary | + + documented in this encounter"
--- OUTSIDE RECORDS SUMMARY | ~2019-02-24 | XMS | Encounter Summary ---
Demographics + + + | Address | [address] | | | [place] [address] | + + + | Home Phone [...] | Organization | [facility] | [...] Team Providers + +------+ + | Care Range Conservationist Name | Role | Phone | + +------+ + | Parviz Brar DO | PCP | | + +------+ + Encounter Details +--------+ + + + + | Date | Type | Department | Care Team | Description | +--------+ + + + + | 04/14/ | Hospital | [facility] | [place], | | | 2013 | Encounter | MED [facility] GENER[facility] OP | Becca Segura MD | | | | | CONV DEPT [address] | | | | | | [place], | | | | | | [place] [address] | | | | | | [phone] | | | +--------+ + + + [...] | | | | | [place] [address] | | | | | | [phone] | | | | | | | | +--------+---------+ + + + documented as of this encounter Visit Diagnoses Not on filedocumented in this encounter"
--- OUTSIDE RECORDS SUMMARY | ~2019-02-24 | XMS | Encounter Summary ---
Demographics + + + | Address | [address] | | | [place] [address] | + + + | Home Phone [...] Organization | [facility] [...] Team Providers + +------+ + | Care Dynamite Cartridge Crimper Name | Role | Phone | + +------+ + | Parviz Brar DO | PCP | | + +------+ + Encounter Details +--------+ + + + + | Date | Type | Department | Care Team | Description | +--------+ + + + + | 03/19/ | Hospital | [facility] | Jennifer Wilder, | | | 2015 | Encounter | [facility] | MD [address] | | | | | ELECTROPHYSIOLOGY | [address] [place] | | | | | [address] | [address] | | | | | [place] | [phone] | | | | | [address] | | | | | | [phone] | | | +--------+ + + + [...] below. EKG shows sinus rhythm with normal CA interval and no preexcitation. MASTER PROBLEM LIST: [...] EKG: KG shows sinus rhythm with normal CA interval and no preexcitation. Selected Labs: Lab [...] mg by mouth Daily. Respiratory Therapy Supplies [facility] Please provide an O2 concentrator while Diego [...] 30 minutes Thank you for allowing [facility] to be involved in the care of this patient. Please call with any questions . Patient Care Team: Parviz Brar as PCP - General (Family Medicine) Becca Castro MD as Physician (Pulmonary Disease) Noe Worley MD (Cardiology) Note reviewed, agree with above Jennifer Wilder MD [facility] documented in this e ncounter [...] dizziness Repeated vomiting You cannot be awakened [id number] [employer]. [address] [place] [address], [place] [id number]. All righ ts reserved. This information is [...] | | | | | [place] [address] | | | | | | [phone] | | | | | | | [...] mg/dL | [facility] | | | | [place] | | SACRED | | | | [facility], [address] | | HEART | | | | [place] [address] | | MEDICAL | | | | [...] SACRED | [address] | [place] [address] | | | HEART [facility] | | | | [...] | [facility] | | | Count | [place] | | SACRED | | | | [facility], [address] | | HEART | | | | [address], [place] [address] | | MEDICAL | | | | [...] + + | [facility] | [address] | [place] [address] | | | [facility] | | | | | LABORATORY [...] + + + | Glucose | 97Comment: Tunisian | 65 - 99 mg/dL | [facility] | | | | Diabetes Association | [...] at | | | | | | [facility] | | | | | | [facility], [address] | | | | | | [address] [place] [address] | | | | + + + + + + + + | Specimen | + + | Blood specimen | | (specimen) | + + + + + + + | Performing | Address | City/State/Zipcode | Phone Number | | Organization | | | | + + + + + | [place] | [address] | [place] [address] | | | [facility] | [...]
--- OUTSIDE RECORDS SUMMARY | ~2019-02-24 | XMS | Encounter Summary ---
Demographics + + + | Address | [address] | | | [place] [address] | + + + | Home Phone [...] Providers + +------+ + | Care Plant Maintenance Manager Name | Role | Phone | [...] + + | 08/31/ | Office | [facility] | Jorje Rutledge | Prostate cancer | | 2018 | Visit | [address] | MD [address] | ([facility]) (Primary Dx); | | | | [place] | [address] [facility] | Preventative health | | | | [address] | [place] [address] | care | | | | [phone] | [phone] | | | | | | | [...] history ofT2c or T3 adenocarcinoma the prostate, [place]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 Allergies Allergen Reactions Ipratropium [place] Hfa Other (See Comments) Reaction: Cough Penicillins [...] g by mouth Daily. Respiratory Therapy Supplies [facility] Please provide an O2 concentrator [...] His labs will be perfor med at [facility]. Diego is instructed to resume his usual and customary care with his primary care provider. I asked Diego to notify me if there were any difficulties voiding, or UTI symptoms, or flank pain, or for any questions or concerns whatsoever. This document was generated in part using [employer] voice recognition software. Although ever y effort is made to edit the content, lease purchase truck driver errors may occur. Occasional wrong word or [...] | | | | | | [place] [address] | | | | | | [phone] | | | | | | | [...] 1.001 - 1.030 | | | | [place], | | | | | | UA, [...]
--- OUTSIDE RECORDS SUMMARY | ~2019-02-24 | XMS | Encounter Summary ---
Demographics + + + | Address | [address] | | | [place] [address] | + + + | Home Phone [...] + | Organization | [facility] | | | and [place] | [...] Team Providers + +------+ + | Care Fur Liner Name | Role | Phone | + [...] | | Abnormal | [place], | [address] | | | | | chest CT | Becca Segura, | [place], | | | | | Procedures | [address] | [place] [address] | | | | | CT Chest wo | [address] | Phone: | | | | | Contrast | [place], | [phone] | | | | | | [place] [address] | Fax: | | | | | | | [phone] | +--------+--------+ + + + + Encounter Details +--------+ + + + + | Date | Type | Department | Care Team | Description | +--------+ + + + + | 01/26/ | Hospital | [facility] | [place], | Abnormal chest CT | | 2012 | Encounter | MED CTR XRAY [address] | Becca Segura MD | | | | | [place] | | | | | | [place] [address] | | | | | | [phone] | | | +--------+ + + + [...] puffs into | 1 | 11 | 01/27/20 | | | (ATROVENT HFA) 17 | the lungs 4 times | Inhaler | | 13 | [...] documented as of this encounter Progress Notes Becca Castro MD - 01/27/2013 8:33 AM PST Quick Note: Please let the patient know that their chest CT shows all of his nodules are stable back t o 08/2010, so he should not need a follow up CT scan. documented in this encounter Plan of Treatment +--------+---------+ + + + | Date | Type | Specialty | Care Team | Description | +--------+---------+ + + + | 03/13/ | Office | Urology | Jorje Rutledge | | | 2019 | Visit | | MD [address] | | | | | | [address] | | | | | | [place] [address] | | | | | | [phone] | | | | | | | | +--------+---------+ + + + documented as of this encounter Procedures + +--------+ + + + | Procedure Name | Priori | Date/Time | Associated Diagnosis | Comments | | | ty | | | | + +--------+ + + + | CT CHEST WO CONTRAST | Routin | 01/26/2013 | Abnormal chest CT | Results for this | | | e | 3:44 PM | | procedure are in the | | | | PST | | results section. | + +--------+ + + + documented in this encounter Results CT Chest wo Contrast (01/26/2013 3:44 PM PST) + + | Specimen | + + | | + + + + + | Narrative | Performed At | + + + | [facility] | [place] | | Department [facility] | [facility] | | [ rep ct street[address]] [ rep ct [facility] | | st zip] Signed | - IMAGING | | | | | Patient Name: DIEGO LUCAS Physician: | | | E. : 1935 Age: 77 Sex: M Unit #: [id number] | | | Exam Date: 01/26/13 Location: [facility] | | | Report #: [id number] Page: | | | %(RAD)RES..mtdd.print.filter("pg") of %(RAD) | | | RES..mtdd.print.filter("tpg") | | | | | | Accession Number: [id number] | | | CT CHEST WITHOUT CONTRAST [...] Transcribed Date/Time: | | | 01/26/2013 15:57 Reservations And Ticketing Agent: | | | <<Signature on File>> | | | Froylan | | | Olivia Rodriguez MD01/26/132200 <Electronically signed by Froylan Baker | Lyndon Rodriguez MD> Froylan Rodriguez MD 01/26/13 1544 | | | Reservations And Ticketing Agent: [employer] [id number]/05/13 1557 | | | Becca Castro MD | | + + + + + + + + | Performing | Address | City/State/Zipcode | Phone Number | | Organization | | | | + + + + + | [facility] [address] | [address] | [place] | [phone] | | [facility] | | [address] | | | - IMAGING | | | | + + + + + documented in this encounter Visit Diagnoses + + | Diagnosis | + + | Abnormal chest CT Nonspecific (abnormal) findings on radiological and other | | examination of other intrathoracic organs | + + documented in this encounter
--- OUTSIDE RECORDS SUMMARY | ~2019-02-24 | XMS | Encounter Summary ---
Demographics + + + | Address | [address] | | | [place] [address] | + + + | Home Phone [...] | [facility] | [...] Providers + +------+ + | Care Director Pharmaceutical Name | Role | Phone | + +------+ + | Parviz Brar DO | PCP | | + +------+ + Encounter Details +--------+ + + + + | Date | Type | Department | Care Team | Description | +--------+ + + + + | 10/12/ | Abstract | [facility] [place] | Froylan Werner MD | | | 2017 | | GASTROENTEROLOGY | [address], [place] | | | | | [address] [place] | [address] [place], [place] | | | | | [address] [place], [place] | [address] | | | | | [address] | | | | | | [phone] | | | +--------+ + + + [...] Description | +--------+---------+ + + + | 01/20/ | Office | Urology | Jorje Rutledge | | | 2019 | Visit | | MD [address] | | | | | | [address] | | | | | | [place] [address] | | | | | | [phone] | | | | | | | | +--------+---------+ + + + documented as of this encounter Visit Diagnoses Not on filedocumented in this encounter"
--- OUTSIDE RECORDS SUMMARY | ~2019-02-24 | XMS | Encounter Summary ---
Demographics + + + | Address | [address] | | | [place] [address] | + + + | Home Phone [...] + | Organization | [facility] | | | and [place] [...] Team Providers + +------+ + | Care Child Care Coordinator Name | Role | Phone | [...] [place], | | | | | | [address] | [place] [address] | | | | | | [place], | Phone: | | | | | | [place] [address] | [phone] | | | | | | | Fax: | | | | | | | [phone] | +--------+ + + + + + Encounter Details +--------+---------+ + + + | Date | Type | Department | Care Team | Description | +--------+---------+ + + + | 12/30/ | Office | [facility] | Jorje Rutledge | Prostate cancer | | 2016 | Visit | [address] | MD [address] | ([facility]) (Primary Dx) | | | | [place], [place] | [address] [facility] [place] | | | | | [address] | [place] [address] | | | | | [phone] | [phone] | | | | | | | [...] a patient of Dr. Mercedez Barkley in [place] for many years. He originally had a stage TI2c or possibly T3 [place] score 4+3 = 7 adenocarcinoma of the [...] Foot fracture (02/2012); SVT (supraventricular tachycardia) ([facility]) (01/2014); Depression; Prostate cancer ([facility]) (2007) ; COPD (chronic obstructive pulmonary [...] have not thoroughly proofread this note, and senior sales associate erro rs may occur. documented in th [...] | | | | | | [place] [address] | | | | | | [phone] | | | | | | | [...] 1.001 - 1.030 | | | | [place], | | | | | | UA, [...]
--- OUTSIDE RECORDS SUMMARY | ~2019-02-24 | XMS | Encounter Summary ---
Demographics + + + | Address | [address] | | | [place] [address] | + + + | Home Phone [...] | Organization | [facility] | [...] Team Providers + +------+ + | Care Museum Director Name | Role | Phone | + +------+ + | Parviz Brar DO | PCP | | + +------+ + Reason for Visit +--------+ + | Reason | Comments | +--------+ + | Other | Change to Qvar | +--------+ + Encounter Details +--------+ + + + + | Date | Type | Department | Care Team | Description | +--------+ + + + + | 12/19/ | Telephone | [facility] [place] | [place], | Other (Change to | | 2013 | | PULMONARY [address] | Becca Segura MD | Qvar) | | | | [place], | | | | | | [place] [address] | | | | | | [phone] | | | +--------+ + + + [...] | | | | | [place] [address] | | | | | | [phone] | | | | | | | | +--------+---------+ + + + documented as of this encounter Visit Diagnoses Not on filedocumented in this encounter"
--- OUTSIDE RECORDS SUMMARY | ~2019-02-24 | XMS | Encounter Summary ---
Demographics + + + | Address | [address] | | | [place] [address] | + + + | Home Phone [...] Organization | [facility] | | | [...] Team Providers + +------+ + | Care Impregnator And Drier Name | Role | Phone | + [...] Urology | Diagnoses | | [facility] | | | Services | | Prostate | [place], | Urology [address] | | | Required | | cancer (HCC) | Becca Segura, | [address] | | | | | | MD [address] | [place], | | | | | | [address] | [place] [address] | | | | | | [place], | Phone: | | | | | | [place] [address] | [phone] | | | | | | | Fax: | | | | | | | [phone] | +--------+ + + + + + Encounter Details +--------+---------+ + + + | Date | Type | Department | Care Team | Description | +--------+---------+ + + + | 12/30/ | Office | [facility] | Jorje Rutledge | Prostate cancer | | 2016 | Visit | [address] | MD [address] | ([facility]) (Primary Dx) | | | | [place], [place] | [address] [facility] | | | | | [address] | [place] [address] | | | | | [phone] | [phone] | | | | | | | [...] a patient of Dr. Mercedez Barkley in [place] for many years. He originally had a stage TI2c or possibly T3 [place] score 4+3 = 7 adenocarcinoma of the [...] Foot fracture (02/2012); SVT (supraventricular tachycardia) ([facility]) (01/2014); Depression; Prostate cancer ([facility]) (2007) ; COPD (chronic obstructive pulmonary disease) [...] have not thoroughly proofread this note, and kitchen runner erro rs may occur. documented in th [...] | | | | | | [place] [address] | | | | | | [phone] | | | | | | | [...] 1.001 - 1.030 | | | | [place], | | | | | | UA, [...]
--- OUTSIDE RECORDS SUMMARY | ~2019-02-24 | XMS | Encounter Summary ---
Demographics + + + | Address | [address] | | | [place] [address] | + + + | Home Phone [...] | Organization | [facility] | | | and [place] [...] Team Providers + +------+ + | Care Packaging Line Attendant Name | Role | Phone | + +------+ + PCP | Unavailable | + +------+ + Encounter Details +--------+ + + + + | Date | Type | Department | Care Team | Description | +--------+ + + + + | 07/20/ | Hospital | [facility] | | | | 2007 - | Encounter | MED CTR CANCER | | | | | | CENTER [address] | | | | 07/22/ | | [place] | | | | 2007 | | [address] | | | | | | [phone] | | | +--------+ + + + [...] | | | | | | [place] [address] | | | | | | [phone] | | | | | | | | +--------+---------+ + + + documented as of this encounter Visit Diagnoses Not on filedocumented in this encounter"
--- OUTSIDE RECORDS SUMMARY | ~2019-02-24 | XMS | Clinical Summary ---
Demographics + + + | Address | [address] | | | [place] [address] | + + + | Home Phone | | + + + | Preferred Language | Unknown | + + + | Marital Status | Unknown | + + + | Jewish Affiliation | Unknown | + + + | Race | Unknown | + + + | Ethnic Group | Unknown | + + + Author + + + | Author | [facility] [employer] (Historical as of | | | 10-08-18) | + + + | Organization | [facility] [employer] (Historical as of | | | 10-08-18) | + + + | Address | Unknown | + + + | Phone | Unavailable | + + + Support + + +---------+ + | Name | Relationship | Address | Phone | + + +---------+ + | Candis Banuelos | ECON | Unknown | | + + +---------+ + Care Team Providers + +------+ + | Care Engine Research Engineer Name | Role | Phone | + +------+ + | Hebert Brar DO | PP | | + +------+ + Allergies + + + + + + | Active Allergy | Reactions | Severity | Noted | Comments | | | | | Date | | + + + + + + | Adhesive Tape | Hives, Rash | High | 06/07/19 | | | | | | 13 | | + + + + + + | Penicillins | Other (See Comments) | Medium | 10/13/19 | | | | | [...] | Take by mouth. | | | 05/24 | | Activ | | (ROXICODONE) 5 MG | | | | 05/11 | | e | | immediate release | | | | 13 | | | | tablet | | | | | | | + + + +---------+------+------+-------+ | OXYGEN-HELIUM IN | Inhale 2 L into the | | | | | Activ | | | lungs. | | | | | e | + + + +---------+------+------+-------+ | albuterol | Inhale 2 puffs into | | | 10/2 | | Activ | | (PROVENTIL | the lungs. | | | 7/20 | | e | | HFA;VENTOLIN HFA) | | | | 14 | | | | 108 (90 Base) | | | | | | | | MCG/ACT inhaler | | | | | | | + + + +---------+------+------+-------+ | amLODIPine | Take 1 tablet by | | | 10/1 | | Activ | | (NORVASC) 5 MG | mouth daily. | | | 0/20 | | e | | tablet | | | | 12 | | | + + + +---------+------+------+-------+ | Calcium | Take 1 tablet by | | | | | Activ | | Carb-Cholecalciferol | mouth. | | | | | e | | (CALCIUM-VITAMIN | | | | | | | | D3) 600-400 MG-UNIT | | | | | | | | TABS | | | | | | | + + + +---------+------+------+-------+ | ferrous sulfate, | Take 325 mg by | | | 01/0 | | Activ | | 65 FE, 325 (65 FE) | mouth. | | | 5/20 | | e | | MG tablet | | | | 16 | | | + + + +---------+------+------+-------+ | fluocinonide | | | | 07/0 | | Activ | | (LIDEX) 0.05 % | | | | 7/20 | | e | | external solution | | | | 17 | | | + + + +---------+------+------+-------+ | fluticasone | Inhale 1 puff into | | | 10/1 | | Activ | | furoate-vilanterol | the lungs. | | | 9/20 | | e | | (BREO ELLIPTA) | | | | 15 | | | | 100-25 mcg/inh | | | | | | | | inhaler | | | | | | | + + + +---------+------+------+-------+ | | Take 1 tablet by | | | | | Activ | | HYDROcodone-acetamin | mouth. | | | | | e | | ophen (NORCO) 10-325 | | | | | | | | MG per tablet | | | | | | | + + + +---------+------+------+-------+ | ipratropium | Inhale 2 puffs into | | | 05/ | | Activ | | (ATROVENT HFA) 17 | the lungs. | | | 0/20 | | e | | MCG/ACT inhaler | | | | 16 | | | + + + +---------+------+------+-------+ | ketoconazole | | | | 09 | | Activ | | (NIZORAL) 2 % | | | | 4/20 | | e | | shampoo | | | | 16 | | | + + + +---------+------+------+-------+ | pantoprazole | Take 1 tablet by | | | 04/1 | | Activ | | (PROTONIX) 40 MG | mouth. | | | 3/20 | | e | | tablet | | | | 17 | | | + + + +---------+------+------+-------+ | Respiratory | Please provide an O2 | | | 05/0 | | Activ | | Therapy Supplies | concentrator while | | | 520 | | e | | MISC | Olga is visiting for | | | 14 | | | | | nocturnal O2 at 2 | | | | | | | | l/m. Dx: COPD, | | | | | | | | Nocturnal hypoxemia | | | | | | + + + +---------+------+------+-------+ | sucralfate | Take 1 tablet by | | | 04/2 | | Activ | | (CARAFATE) 1 g | mouth. | | | 520 | | e | | tablet | | | | 17 | | | + + + +---------+------+------+-------+ | tamsulosin | Take 1 capsule by | | | 09/ | | Activ | | (FLOMAX) 0.4 MG | mouth. | | | /20 | | e | | capsule | | | | 17 | | | + + + +---------+------+------+-------+ | venlafaxine | Take 37.5 mg by | | | | | Activ | | (EFFEXOR-XR) 37.5 MG | mouth. | | | | | e | | 24 hr capsule | | | | | | | + + + +---------+------+------+-------+ | zolpidem (AMBIEN) | Take 5 mg by mouth. | | | | | Activ | | 5 MG tablet | | | | | | e | + + + +---------+------+------+-------+ | Oxygen (outpatient | Start oxygen therapy | 1 Units | 0 | 10/1 | | Activ | | | during exertion at | | | 2/20 | | e | | therapy)Indications: | 2 LPM via nasal | | | 17 | | | | Chronic obstructive | cannula. Pls | | | | | | | lung disease, type | evaluate for oxygen | | | | | | | B (HCC), Chronic | conserving device. | | | | | | | respiratory failure | Pls provide nasal | | | | | | | with hypoxia (HCC) | cannula. | | | | | | + + + +---------+------+------+-------+ Active Problems + + + | Problem | Noted Date | + + + | Chronic obstructive lung disease, type B (HCC) | 12/03/2016 | + + + | Multiple pulmonary nodules | 12/03/2016 | + + + | Nocturnal hypoxia | 12/03/2016 | + + + | History of tobacco use, presenting hazards to health | 12/03/2016 | + + + | Chronic respiratory failure with hypoxia (HCC) | 12/03/2016 | + + + | History of gastroesophageal reflux (GERD) | 12/03/2016 | + + + Social History + +-------+ +--------+ + | Tobacco Use | Types | Packs/Day | Years | Date | | | | | Used | | + +-------+ +--------+ + | Former Smoker | | | | Quit: 2009 | + +-------+ +--------+ + + +---+---+---+ | Smokeless Tobacco: [...] + + + | Blood Pressure | 132/74 | 05/03/2017 1:29 PM PDT | + + + + | Pulse | 82 | 05/03/2017 1:29 PM PDT | + + + + | Temperature | 35.9 C (96.6 F) | 05/03/2017 1:29 PM PDT | + + + + | Respiratory Rate | - | - | + + + + | Oxygen Saturation | 94% | 05/03/2017 1:29 PM PDT | + + + + | Inhaled Oxygen | - | - | | Concentration | | | + + + + | Weight | 78.9 kg (174 lb) | 05/03/2017 1:29 PM PDT | + + + + | Height | 180.3 cm (5' 11") | 05/03/2017 1:29 PM PDT | + + + + | Body Mass Index | 24.27 | 05/03/2017 1:29 PM PDT | + + + + Plan of Treatment Not on file Results Not on filefrom Last 3 Months Insurance + +--------+ +------+-------+ + | Payer | Benefi | Subscriber | Type | Phone | Address | | | t Plan | ID | | | | | | / | | | | | | | Group | | | | | + +--------+ +------+-------+ + | MEDICARE | MEDICA | [id number] | | | [address] | | | RE | | | | [place] [phone] | | | IP-OP | | | | | + +--------+ +------+-------+ + | COMMERCIAL OTHER | TRANSA | [id number] | | | | | | [employer] | | | | | | | LIFE | | | | | + +--------+ +------+-------+ + + +--------+ +--------+ + + | Guarantor Name | Accoun | Relation to | Date | Phone | Billing Address | | | t Type | Patient | of | | | | | | | | | | + +--------+ +--------+ + + | OLGA LUCAS | Person | Self [birth year] | Home: | [address] | | al/Fam | | 1936 | [phone] [place] [address] | | | [place]lie | | | [phone] | | + +--------+ +--------+ + +
--- OUTSIDE RECORDS SUMMARY | ~2019-02-24 | XMS | Encounter Summary ---
Demographics + + + | Address | [address] | | | [place] [address] | + + + | Home Phone [...] | [facility] | | | and [...] Team Providers + +------+ + | Care Pecan Gatherer Name | Role | Phone | + +------+ + PCP | Unavailable | + +------+ + Encounter Details +--------+ + + + + | Date | Type | Department | Care Team | Description | +--------+ + + + + | 07/24/ | Hospital | [facility] | | | | 2009 - | Encounter | MED CTR CANCER | | | | | | CENTER [address] | | | | 08/21/ | | [place] | | | | 2009 | | [address] | | | | | | [phone] | | | +--------+ + + + [...] | | | | | [place] [address] | | | | | | [phone] | | | | | | | | +--------+---------+ + + + documented as of this encounter Visit Diagnoses Not on filedocumented in this encounter"
--- OUTSIDE RECORDS SUMMARY | ~2019-02-24 | XMS | Encounter Summary ---
Demographics + + + | Address | [address] | | | [place] [address] | + + + | Home Phone [...] | Organization | [facility] | | | and [...] Team Providers + +------+ + | Care Pediatric Lpn Name | Role | Phone | + [...] + + | 05/31/ | Office | [facility] | Jorje Rutledge | Prostate cancer | | 2018 | Visit | [address] | MD Tim [address] | (HCC) (Primary Dx); | | | | [place] | [address] | Incomplete bladder | | | | [address] | [place] [address] | emptying | | | | [phone] | [phone] | | | | | | | [...] 81 y.o. male patient of Parviz Brar DO being seen today for a follow [...] history ofT2c or T3 adenocarcinoma the prostate, [place] 4+3 = 7, PSA 13.9, which was [...] fracture; COPD (chronic obstructive pulmonary dis ease) ([facility]); Depression; Dermatophytosis tinea capitis; Diverticulosis (01/2015); Essential hypertension; Foot fracture (02/2012); Gastritis (01/2015); GI bleed (01/2015); Heart murmur; Heartburn; Hiatal hernia (01/2015); History of rectal bleeding; Hypoxia; Insomnia; Iron def iciency anemia; Kidney stone (2004); Lumbar disc herniation; Migraines; Mood disorder ([facility]) of unknown (axis III) etiology; Nocturnal hypoxia; Osteoarthritis; Peptic ulcer disease; Pne umonia (05/2012); Prostate cancer ([facility]) (2007); Pulmonary nodules; Seborrheic dermatitis of s calp; Shoulder fracture (02/2012); Supplemental oxygen dependent; SVT (supraventricular tachy cardia) ([facility]) (01/2014); TIA (transient ischemic attack); [...] or use drugs. Allergies Allergen Reactions Ipratropium Paxton Hfa Other (See Comments) Reaction: Cough Penicillins [...] g by mouth Daily. Respiratory Therapy Supplies [facility] Please provide an O2 concentrator while Diego [...] is 85. 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 Although ever y effort is made to edit the content, colleter errors may occur. Occasional wrong word or [...] | | | | | [place] [address] | | | | | | [phone] | | | | | | | [...] Expected: | | | | e | ([facility]) Incomplete | 08/23/2017, Expires: | | | [...]
--- OUTSIDE RECORDS SUMMARY | ~2019-02-24 | XMS | Encounter Summary ---
Demographics + + + | Address | [address] | | | [place] [address] | + + + | Home Phone [...] | [facility] | | | and [...] Team Providers + +------+ + | Care Primary School Teacher Librarian Name | Role | Phone | + +------+ + PCP | Unavailable | + +------+ + Encounter Details +--------+ + + + + | Date | Type | Department | Care Team | Description | +--------+ + + + + | 12/01/ | Abstract | [place] [facility] | [place], | | | 2011 | | Conversion Location | [place] [address] | | | | | [phone] | [place] | | | | | | [phone] | | | | | | | [...] | | | | | [place] [address] | | | | | | [phone] | | | | | | | | +--------+---------+ + + + documented as of this encounter Visit Diagnoses Not on filedocumented in this encounter"
--- OUTSIDE RECORDS SUMMARY | ~2019-02-24 | XMS | Clinical Summary ---
Demographics + + + | Address | [address] | | | [place] [address] | + + + | Home Phone [...] Organization | [facility] | | [...] Team Providers + +------+ + | Care Railroad Car Truck Builder Name | Role | Phone | + [...] +---+ + + + + +----+------+---+-------+ | | Take 1 tablet by | | 0 | | | Activ | | HYDROcodone-acetamin | mouth every 6 hours | | | | | e | | ophen (NORCO) 10-325 | as needed. | | | | | | | mg per tablet | | | | | | | + + + +----+------+---+-------+ | | Inhale 1 puff into | 1 each | 11 | 10/1 | | Activ | | fluticasone-vilanter | the lungs Daily. | | | /20 | | e | | ol (BREO ELLIPTA) | | | | 15 | | | | 100-25 mcg/puff | | | | | | | | inhaler | | | | | | | + + + +----+------+---+-------+ | ketoconazole | | | 1 | 09/ | | Activ | | (NIZORAL) 2% shampoo | | | | 20 | | e | | | | | | 16 | | | + + + +----+------+---+-------+ | Calcium | Take 1 tablet by [...] | | + + + +----+------+---+-------+ | pantoprazole | Take 1 tablet by | | 0 | 04/1 | | Activ | | (PROTONIX) 40 mg | mouth Daily. | | | 3 | | e | | tablet | | | | 17 | | | + + + +----+------+---+-------+ | fluocinonide | | | 0 | 07/0 | | Activ | | (LIDEX) 0.05 % | | | | 09/10 | | e | | external solution | | | | 17 | | | + + + +----+------+---+-------+ | ferrous sulfate | Take 325 mg by mouth | | 0 | | | Activ | | 325 mg tablet | daily (with | | | | | e | | | breakfast). | | | | | | + + + +----+------+---+-------+ | leuprolide (LUPRON | Inject 30 mg into | | 0 | | | Activ | | DEPOT, 4-MONTH,) 30 | the muscle Every 4 | | | | | e | | mg injection | months. | | | | | | + + + +----+------+---+-------+ | Multiple | I-Caps | | 0 | | | Activ | | Vitamins-Minerals | | | | | | e | | (ICAPS PO) | | | | | | | + + + +----+------+---+-------+ | albuterol 2.5 mg/3 | Take 2.5 mg by | | 0 | | | Activ | | mL nebulizer | nebulization 2 times | | | | | e | | solution | daily. | | | | | | + + + +----+------+---+-------+ | OXYGEN-HELIUM IN | Inhale 2 L into the | | 0 | | | Activ | | | lungs. | | | | | e | + + + +----+------+---+-------+ | UNABLE TO FIND | by Nasal route. | | 0 | 04/2 | | Activ | | | | | | 3/20 | | e | | | | | | 13 | | | + + + +----+------+---+-------+ | ascorbic acid | Take by mouth. | | 0 | | | Activ | | (VITAMIN C) 250 MG | | | | | | e | | tablet | | | | | | | + + + +----+------+---+-------+ | fluticasone | Inhale into the | | 0 | | | Activ | | (FLOVENT HFA) 220 | lungs. | | | | | e | | mcg/puff inhaler | | | | | | | + + + +----+------+---+-------+ | ipratropium | Inhale 2 puffs into | | 0 | 05/1 | | Activ | | (ATROVENT HFA) 17 | the lungs. | | | 0/20 | | e | | mcg/puff inhaler | | | | 16 | | | + + + +----+------+---+-------+ | loratadine | Take by mouth. | | 0 | | | Activ | | (CLARITIN) 10 mg | | | | | | e | | tablet | | | | | | | + + + +----+------+---+-------+ | magnesium | Take by mouth. | | 0 | | | Activ | | hydroxide (MILK OF | | | | | | e | | MAGNESIA) 400 mg/5 | | | | | | | | mL suspension | | | | | | | + + + +----+------+---+-------+ | oxyCODONE | Take by mouth. | | 0 | 04/2 | | Activ | | (ROXICODONE) 5 mg | | | | 3/20 | | e | | tablet | | | | 13 | | | + + + +----+------+---+-------+ | oxymetazoline (PX | Instill 2 Sprays [...] | | + + + +----+------+---+-------+ | polyethylene | Take by mouth. | | 0 | | | Activ | | glycol (MIRALAX) | | | | | | e | | powder | | | | | | | + + + +----+------+---+-------+ | amLODIPine | | | 0 | 10/0 | | Activ | | (NORVASC) 10 MG | | | | 9/20 | | e | | tablet | | | | 19 | | | + + + +----+------+---+-------+ | benzonatate | | | 0 | 05/0 | | Activ | | (TESSALON) 100 mg | | | | 1/20 | | e | | capsule | | | | 19 | | | + + + +----+------+---+-------+ | tamsulosin | TAKE TWO CAPSULES BY | 60 | 11 | 12/0 | | Activ | | (FLOMAX) 0.4 mg CAPS | MOUTH EVERY DAY | capsule | | 11/11 | | e | | | NEEDED | | | 19 | | | + + + +----+------+---+-------+ Active Problems + + + | Problem [...] Date Results | | 12/12/18 0.681 [facility] | | 11/25/17 7.17 [facility] | | 08/26/17 4.44 | | [...] + + | Overview: S/p XRT [facility] with Dr. Garza | | [...] Jorje Rutledge | Medication Refill | | 2018 | | | MD Tim | | +--------+---------+ + + + | 12/14/ | Office | Urology | Jorje Rutledge | Prostate cancer | | 2018 | Visit | | MD Tim | ([facility]) (Primary Dx); | | | [...] | | | | | [place] [address] | | | | | | [phone] | | | | | | | [...] 1.001 - 1.030 | | | | [place], | | | | | | [facility], [...] +--------+ +---------+--------+ | MEDICARE | MEDICA | [id number] | | [phone] | | Medica | | | RE | | 013-Pr | 5 | | re | | | PART A | | esent | | | | | | AND B | | | | | | + +--------+ +--------+ +---------+--------+ | [employer] | [place] | [id number] | | [phone] | | Indemn | | | OF | | 018-Pr | 0 | | ity | | | [place] | | esent | | | | [...] Person | Self | [birth year] | [address] | | | al/Fam | | 1936 | [phone] | [place] [address] | | | leslie | | | 3 (Home) | | + +--------+ +--------+ + + Advance Directives + + + + + | Type | Date Recorded | Patient | Explanation | | | | Supervisor Cereal | | + + + + + | Power of | | | | | Chest Pain Coordinator | | | | + + + + + | Advance | 03/19/2014 5:21 | | POLST | | Directive | AM | | | + + + + +
--- OUTSIDE RECORDS SUMMARY | ~2019-02-24 | XMS | Encounter Summary ---
Demographics + + + | Address | [address] | | | [place] [address] | + + + | Home Phone [...] Organization | [facility] | [...] Team Providers + +------+ + | Care Brown Sourer Name | Role | Phone | + [...] | pulmonary | Becca B, | [address] [place] | | | | | nodule | MD [address] [place] | | | | | Procedures | [address] | [place], [place] | | | | | CT Chest wo | [place], | [address] | | | | | Contrast | [place] [address] | Phone: | | | | | | | [phone] | | | | | | | Fax: | | | | | | | [phone] | +--------+--------+ + + + + Encounter [...] nodule (Primary Dx) | | | | [place], | | | | | | [place] [address] | | | | | | [phone] | | | +--------+ + + + [...] | | | | | [place] [address] | | | | | | [phone] | | | | | | | | +--------+---------+ + + + documented as of this encounter Results CT Chest wo Contrast (09/06/2012 1:47 PM PDT) + + | Specimen | + + | | + + + + + | Narrative | Performed At | + + + | [facility] | [place] | | Department [address] [place] [address] [facility] | | [ rep ct [address]] [ rep [facility] | | st zip] Signed | - IMAGING | | | | | Patient Name: OLGA LUCAS Physician: | | | MAGDA. : 1935 Age: 76 Sex: M Unit #: [id number] | | | Exam Date: 09/06/12 Location: [facility] | | | Report #: [id number] Page: | | | %(RAD)RES..mtdd.print.filter("pg") of %(RAD) | | | RES..mtdd.print.filter("tpg") | | | | | | Accession Number: [id number] | | | CT CHEST WITHOUT CONTRAST [...] Transcribed | | | Date/Time: 09/06/2012 16:10 Kindergarten Teacher Assistant: ALEXSANDRA | | | <<Signature on File>> | | | | | | Gurdeep Diaz MD09/07/12 0729 <Electronically signed by | | | Gurdeep Diaz MD> Gurdeep Diaz MD 09/06/12 | | | 1347 Kindergarten Teacher Assistant: OOYYO Obcpjjthnfigp50/16/13 1610 | | | Becca Castro MD | | + + + + + + + + | Performing | Address | City/State/Zipcode | Phone Number | | Organization | | | | + + + + + | [facility] | [address] | [place] | [phone] | | [facility] | | [address] | | | - IMAGING | | | | + + + + + documented in this encounter Visit Diagnoses + + | Diagnosis | + + | Solitary pulmonary nodule - Primary | + + documented in this encounter
--- OUTSIDE RECORDS SUMMARY | ~2019-02-24 | XMS | Encounter Summary ---
Demographics + + + | Address | [address] | | | [place] [address] | + + + | Home Phone [...] | [facility] | | | and [place] [...] Team Providers + +------+ + | Care Stamp Pad Maker Name | Role | Phone | [...] | | | | | | [place] [address] | | | | | | [phone] | | | +--------+--------+ + + + [...] | | | | | [place] [address] | | | | | | [phone] | | | | | | | | +--------+---------+ + + + documented as of this encounter Visit Diagnoses Not on filedocumented in this encounter"
--- OUTSIDE RECORDS SUMMARY | ~2019-02-24 | XMS | Encounter Summary ---
Demographics + + + | Address | [address] | | | [place] [address] | + + + | Home Phone [...] | Organization | [facility] | [...] Providers + +------+ + | Care Electric Distribution Checker Name | Role | Phone | + +------+ + | Parviz Brar DO | PCP | | + +------+ + Reason for Visit +--------+ + | Reason | Comments | +--------+ + | Other | nocturnal O2 in [place] | +--------+ + Encounter Details +--------+ + + + + | Date | Type | Department | Care Team | Description | +--------+ + + + + | 06/26/ | Telephone | [facility] [place] | [place], | Other (nocturnal O2 | | 2013 | | PULMONARY [address] | Becca Segura MD | in [place]) | | | | [place], | | | | | | [place] [address] | | | | | | [phone] | | | +--------+ + + + [...] | | | | | | [place] [address] | | | | | | [phone] | | | | | | | | +--------+---------+ + + + documented as of this encounter Visit Diagnoses + + | Diagnosis | + + | Chronic airway obstruction, not elsewhere classified - Primary | + + | Hypoxemia | + + documented in this encounter"
--- OUTSIDE RECORDS SUMMARY | ~2019-02-24 | XMS | Encounter Summary ---
Demographics + + + | Address | [address] | | | [place] [address] | + + + | Home Phone | | + + + | Preferred Language | Unknown | + + + | Marital Status | | + + + | Anabaptism Affiliation | [id number] | + + + | Race | Unknown | + + + | Ethnic Group | Unknown | + + + Author + + + | Author | [facility] | | | and [place] | + + + | Organization | [facility] | | | [...] Team Providers + +------+ + | Care Tester Compressed Gases Name | Role | Phone | + [...] | | ELECTROPHYSIOLOGY | [address] [place] | | | | | [address] | [address] | | | | | [place] | [phone] | | | | | [address] | | | | | | [phone] | | | +--------+---------+ + + + [...] the original. DISCHARGE SUMMARY [facility] PATIENT NAME/: Diego Lucas, (1935) DATE OF [...] below. EKG shows sinus rhythm with normal LA interval and no preexcitation. MASTER PROBLEM LIST: [...] EKG: KG shows sinus rhythm with normal LA interval and no preexcitation. Selected Labs: Lab [...] mg by mouth Daily. Respiratory Therapy Supplies [facility] Please provide [...] 30 minutes Thank you for allowing [facility] to be involved in the care [...] dizziness Repeated vomiting You cannot be awakened 5799-7300 [employer]. [address] [place] [address], [place] [address]. All righ ts reserved. This information is [...] | | | | | [place] [address] | | | | | | [phone] | | | | | | | [...] | [facility] | | | | Bruno Durant | | SACRED | | | | [facility], [address] | | HEART | | | | [place] [address] | | MEDICAL | | | | [...] SACRED | [address] | [place] [address] | | | [facility] | | | | | [...] | [facility] | | | Count | Hickory Durant | | SACRED | | | | [facility], [address] | | HEART | | | | [address] [place] [address] | | MEDICAL | | | | [...] + + | MELISSAKANCHAN [facility] | [address] | [place] [address] | | | [facility] | | | | | [...] + + + | Glucose | 97Comment: Marshallese | 65 - 99 mg/dL | [facility] | | | | Diabetes Association | [...] at | | | | | | [facility] | | | | | | [facility], [address] | | | | | | [address] [place] [address] | | | | + + + + + + + + | Specimen | + + | Blood specimen | | (specimen) | + + + + + + + | Performing | Address | City/State/Zipcode | Phone Number | | Organization | | | | + + + + + | [facility] | [address] | [place] [address] | | | [facility] | | | | | [...]
--- OUTSIDE RECORDS SUMMARY | ~2019-02-24 | XMS | Encounter Summary ---
Demographics + + + | Address | [address] | | | [place] [address] | + + + | Home Phone [...] Organization | [facility] | | | and [place] [...] Team Providers + +------+ + | Care Record Changer Assembler Name | Role | Phone | + +------+ + | Parviz Brar DO | PCP | | + +------+ + Encounter Details +--------+ + + + + | Date | Type | Department | Care Team | Description | +--------+ + + + + | 03/13/ | Orders Only | [facility] | [place], | COPD (chronic | | 2014 | | MED CTR PULMONARY | Becca Segura MD | obstructive | | | | FUNCTION [address] | | pulmonary disease); | | | | [place], | | 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
--- OUTSIDE RECORDS SUMMARY | ~2019-02-24 | XMS | Encounter Summary ---
Demographics + + + | Address | [address] | | | [place] [address] | + + + | Home Phone | | + + + | Preferred Language | Unknown | + + + | Marital Status | | + + + | Spiritism Affiliation | PRE | + + + | Race | White | + + + | Ethnic Group | Not or | + + + Author + + + | Author | [facility] | + + + | Organization | [facility] | + + + [...] Providers + +------+ + | Care Machine Castings Plasterer Name | Role | Phone | + +------+ + | ZoniaParviz | PCP | | + +------+ + Reason for Visit + + + | Reason | Comments | + + + | Nosebleed | | + + + AUTH/CERT +--------+--------+ [...] | 06/06/ | Emergency | [facility] Emergency | [place], | | | 2012 - | | Department [address] | MD Michael | | | | | [address] | [place] | | | 06/07/ | | [facility] | [facility] | | | 2012 | | [place], [place] | [place] [address] [place] | | | | | [address] | EMERGENCY | | | | | [phone] | [place] [address] | | | | | | [phone] | | | | | | | | | | | | Jean-Pierre Bruno MD | | | | | | [address] | | | | | | [place], | | | | | | [place] [address] | | | | | | [phone] | | | | | | | [...] + + + | Blood Pressure | 116/72 | 06/07/2012 2:09 AM | | | | | PDT | | + + + + + | Pulse | 101 | 06/07/2012 2:09 AM | | | | | PDT | | + + + + + | Temperature | 36.6 C (97.9 F) | 06/06/2012 6:35 PM | | | | | PDT | | + + + + + | Respiratory Rate | 18 | 06/07/2012 2:09 AM | | | | | PDT | | + + + + + | Oxygen Saturation | 93% | 06/07/2012 2:09 AM | | | | | PDT | | + + + + + | Inhaled Oxygen | - | - | | | Concentration | | | | + + + + + | Weight | 72.6 kg (160 lb) | 06/06/2012 6:30 PM | | | | | PDT | | + + + + + | Height | - | - | | + + + + + | Body Mass Index | - | - | | + + + + + documented in this encounter Discharge Instructions Instructions Kaiser Levine MD - 06/06/2012Formatting of this note might be differe nt from the original. 1) A small amount of blood tinged secretions is normal. 2) If you have another episode of bleeding, spray 2 large doses of Afrin into each nostril and hold FIRM pressure on the front, soft part of the nose for a full 20 minutes. Re-evalua te. If still bleeding, return to the ED. 3) [place]'s spray Twice a day to both nostrils for moisture. 4) Humidify home O2. 5) Follow up with PCP 6) Return to ED if severe or persistent bleeding Nosebleeds: After Your Visit Your Care Instructions [...] "Nosebleeds: After Your Visit", log into your [employer] account at [email or web address]. You can enter [id number] in the [employer]" search box. Not on [employer]? Review the TenBu Technologieshart section of your After Visit Summary for directions on whitney w to sign up. [id number] [employer]. Care instructions adapted under license by [facility] [employer] [place]. This care instruction is for use with your licensed [email or web address] e professional. If you have questions about a medical condition or this instruction, always ask your healthcare professional. [employer] disclaims any warranty or liabili ty for your use of this information. Content Version: [id number]; Last Revised: August 19, 2011 documented in [...] | + +--------+ + + + | IP CONSULT TO | Urgent | 06/07/2012 | | | | OTOLARYNGOLOGY | | 8:42 AM | | | | | | PDT | | | + +--------+ + + + | HEMOGLOBIN | Urgent | 06/06/2012 | | Results for this | | | | 7:41 PM | | procedure are in the | | | | PDT | | results section. | + +--------+ + + + documented in this encounter Results HEMOGLOBIN (06/06/2012 7:41 PM PDT) + +---------+ + + + | Component | Value | Ref Range | Performed | Pathologist | | | | | At | Signature | + +---------+ + + + | HEMOGLOBIN | 9.6 (L) | 13.5 - 17.5 | [facility] | | | | | g/dL | LABORATORY | | | | | | SERVICES, | | | | | | [place] | | + +---------+ + + + + + | Specimen | + + | Blood - Blood | + + + + + + + | Performing | Address | City/State/Zipcode | Phone Number | | Organization | | | | + + + + + | [facility] | [address] | [place] [address] | | | SERVICES, CORE | [address] | | | + + + + + documented in this encounter Visit Diagnoses + + | Diagnosis | + + | Recurrent epistaxis - Primary Epistaxis | + + | Epistaxis | + + documented in this encounter Administered Medications + +--------+ + +------+------+ | Medication Order | MAR | Action | Dose | Rate | Site | | | Action | Date | | | | + +--------+ + +------+------+ | oxymetazoline (nataly MARTINEZ) 0.05 | Given | 06/07/19 | 2 sprays | | | | % nasal spray 2 [place] 2 spray, | | 13 8:12 | | | | | nasal, ONCE, 1 dose, 06/06/12 | | PM PDT | | | | | at 2030 | | | | | | + +--------+ + +------+------+ +---+---+ | | | +---+---+ + +-------+ + +---+---+ | oxymetazoline (aka AFRIN) 0.05 | Given | 06/07/19 | 2 sprays | | | | % nasal spray 2 [place] 2 spray, | | 13 11:27 | | | | | both nostrils, ONCE, 1 dose, Tue | | PM PDT | | | | | 06/07/12 at 0000 | | | | | | + +-------+ + +---+---+ +---+---+ | | | +---+---+ + +-------+ + +---+---+ | sodium chloride (aka OCEAN) | Given | 04/15/20 | 2 sprays | | | | 0.65 % nasal spray 2 [place] 2 | | 13 7:50 | | | | | spray, both nostrils, ONCE, 1 | | PM PDT | | | | | dose, 06/06/12 at 2030 | | | | | | + +-------+ + +---+---+ +---+---+ | | | +---+---+ documented in this encounter
--- OUTSIDE RECORDS SUMMARY | ~2019-02-24 | XMS | Encounter Summary ---
Demographics + + + | Address | [address] | | | [place] [address] | + + + | Home Phone [...] | [facility] | [...] Team Providers + +------+ + | Care Shellacker Name | Role | Phone | + +------+ + | Parviz Brar DO | PCP | | + +------+ + Reason for Visit +--------+ + | Reason | Comments | +--------+ + | COPD | | +--------+ + Encounter Details +--------+---------+ + + + | Date | Type | Department | Care Team | Description | +--------+---------+ + + + | 08/18/ | [facility] | [place], | COPD (chronic | | 2013 | Visit | PULMONARY [address] | Becca Segura MD | obstructive | | | | [place], | | pulmonary disease) | | | | [place] [address] | | (Primary Dx); | | | | [phone] | | Nocturnal hypoxemia | | | | | | due to emphysema | | | | | | ([facility]); Pulmonary | | | | | | [...] + + + | Blood Pressure | 132/78 | 08/18/2013 12:55 PM | | | | | PDT | | + + + + + | Pulse | 72 | 08/18/2013 12:55 PM | | | | | PDT | | + + + + + | Temperature | - | - | | + + + + + | Respiratory Rate | - | - | | + + + + + | Oxygen Saturation | 94% | 08/18/2013 12:55 PM | | | | | PDT | | + + + + + | Inhaled Oxygen | - | - | | | Concentration | | | | + + + + + | Weight | 78.2 kg (172 lb 8 | 08/18/2013 12:55 PM | | | | oz) | PDT | | + + + + + | Height | 182.9 cm (6') | 08/18/2013 12:55 PM | | | | | PDT | | + + + + + | Body Mass Index | 23.4 | 08/18/2013 12:55 PM | | | | | PDT | | + + + + + documented in this encounter Patient Instructions Patient Instructions Becca Castro MD - 08/18/2013 1:25 PM PDTNo changes today. Make sure you get a flu shot this fall! documented in this encounter Progress Notes Becca Castro MD - 08/18/2013 1:06 PM PDTFormatting of this note might be differe nt from the original. Pulmonary Follow Up HPI Diego Lucas is a 77 y.o. male patient of Parviz Brar here today for follow up o f COPD. At their last visit, we had continued him on Flovent and dropped his Atrovent to twice angela y with an additional two times daily as needed. Since their last visit he feels like he has been doing pretty well. He went to [place] to visit his sister and had a great time. He got up every morning and walked a mile every morning. He has not had any acute illnesses. He is currently on a regimen of Flovent twice daily and Atrovent twice daily. He does feel like this medication regimen is working for them. He is not needing additional doses of Atr ovent. He returns today for routine follow up. Currently he is able to walk between 1/2 mile and a mile at his own pace on level ground. Roberto Carlos rodriguez is exercising regularly. He is mostly walking. He does cough chronically, and does produce mucous. The mucous is yellow in color. He has n ot had hemoptysis. He has been evaluated for nocturnal oxygen and does use it. He is currently on 2 LPM at [facility]. He reports good compliance. He does not have symptoms of heartburn or reflux. Past Medical History Past Medical History Diagnosis Date COPD (chronic obstructive pulmonary disease) (HCC) Peptic ulcer disease with upper GI bleed Benign prostatic hypertrophy Prostate cancer (HCC) s/p radiation treatment and on hormonal treatment with Lupron Osteoarthritis Heartburn Pulmonary nodules Cataracts, bilateral Pneumonia 05/2012 hospitalized [facility] Shoulder fracture 02/2012 Foot fracture 02/2012 Past [...] home. No other animal exposures.Grew up in [place]. Then lived in [place]. Then move d to [place]. In the service lived in [facility] and [place]. No recent travel. Allergies: Allergies Allergen Reactions Adhesive & Tape Paper tapes Medications: Outpatient Encounter Prescriptions as of 08/18/2013 Medication Sig Dispense Refill acetaminophen (TYLENOL) 325 mg tablet Take 650 mg by mouth every 4 hours as needed. amLODIPine (NORVASC) 5 mg tablet Take one tablet by mouth once daily. Ascorbic Acid (VITAMIN C) 250 MG tablet Take 250 mg by mouth Daily. aspirin (ASPIRIN LOW DOSE) 81 MG tablet Take 81 mg by mouth Daily. [DISCONTINUED] cetirizine (ZYRTEC) 10 mg tablet Take 10 mg by mouth Daily. [DISCONTINUED] CETIRIZINE-PSEUDOEPHEDRINE ER PO Take by mouth Twice daily as needed. cetirizine-psuedoephedrine (ZYRTEC-D) 5-120 MG per tablet Take [...] into the lungs nightly. Respiratory Therapy Supplies [facility] Please provide an O2 concentrator while Diego [...] fever, chills, sweats, and change in weight. Sleep: Denies difficulty sleeping, excessive snoring, and daytime sleepiness. Eyes: Denies vision change and eye irritation. ENT: Denies earache, decreased hearing, nasal congestion, nosebleeds, sore throat, and ho arseness. Resp: See HPI. CV: Denies chest pain, palpitations, syncope, and peripheral edema. GI: Denies nausea, vomiting, and abdominal pain. : Denies difficulty emptying bladder. Objective BP 132/78 | Pulse 72 | Ht 1.829 m (6') | Wt 78.245 kg (172 lb 8 oz) | BMI 23.39 kg/m2 | SpO 2 94% RA General [...] Data: Immunization History Administered Date(s) Administered INFLUENZA, PRESERVATIVE FREE IM 12/11/2012 Pneumococcal (Adult) 10/21/2010 Zoster 04/22/2013 Assessment 1. COPD (chronic obstructive pulmonary disease) - Doing well on Flovent and Atrovent, which has been the only regimen he has tolerated. We will continue. He has dropped the Atrovent t o twice daily, and has not needed as needed doses. 2. 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 We can recheck at next vis it as last check was 10/2012. 3. Pulmonary nodules - Stable x [address] scan done 01/2013. Plan 1.Continue Flovent and Atrovent. 2.Continue oxygen at 2L at night and plan for recheck 11/2013. 3.No further routine CT scan follow up needed. 4. Influenza vaccine recommended for the fall. He was advised to call if new pulmonary symptoms were to develop. Return to clinic in 4 months, or sooner with concerns. CC: Parviz Brar Portions of this report were transcribed using voice recognition software. Every effort wa s made to ensure accuracy; however, inadvertent computerized pigment mixer errors may be pre sent. Electronically signed by: Becca Castro MD 08/18/2013 13:13 documented in t his encounter Plan of [...] | | | | | [place] [address] | | | | | | [phone] | | | | | | | [...] field | + + documented in this encounter"
--- OUTSIDE RECORDS SUMMARY | ~2019-02-24 | XMS | Encounter Summary ---
Demographics + + + | Address | [address] | | | [place] [address] | + + + | Home Phone | | + + + | Preferred Language | Unknown | + + + | Marital Status | | + + + | Shinto Affiliation | PRE | + + + | Race | White | + + + | Ethnic Group | Not or | + + + Author + + + | Author | [facility] | + + + | Organization | [facility] | + + + | Address | Unknown | + + + | Phone | Unavailable | + + + Support + + +---------+ + | Name | Relationship | Address | Phone | + + +---------+ + | Andrez Lucas | ECON | Unknown | Unavailable | + + +---------+ + Care Team Providers + +------+ + | Care Manager Facility Name | Role | Phone | + [...] OMI | | 2004 | | [facility] | [phone] | | | | Transcribed | [place] | | | | | | [address] | | | +--------+ + + + [...] | Other, Faculty - 06/09/2004 10:38 AM [facility] | | ELECTROCARDIOGRAPHIC [id number] [place] [address] [id number]: | | Marc Stovall, TALIA AND TIME: [...] normal tracing in a | | thin-walledman.JOB #[id number]//[id number] | | Electronically Signed | | | | Rylee Tay, [facility],OLGA [id number] DATE: | | | |ATRIAL RATE: 67 | |VENTRICULAR RATE: 67 | | | |[place] INTERVAL: 184 QRS: 88 QTC: 406 QRS [...] |man. | | | | | |JOB #[id number] | |06/08/04 | |06/09/04 | |MWCresencio Electronically [...] | | | | |OLGA LUCAS | |[id number] | |[id number] | |ADMIT DATE: | + + documented in this encounter Visit Diagnoses Not on filedocumented in this encounter"
--- OUTSIDE RECORDS SUMMARY | ~2019-02-24 | XMS | Encounter Summary ---
Demographics + + + | Address | [address] | | | [place] [address] | + + + | Home Phone [...] Organization | [facility] | [...] Team Providers + +------+ + | Care Residential Real Estate Assistant Name | Role | Phone | [...] RN | obstructive | | | | [place], | | pulmonary disease) | | | | [place] [address] | | ([facility]); Nocturnal | | | | [phone] | | hypoxemia | +--------+ + + [...] | | | | | | [place] [address] | | | | | | [phone] | | | | | | | | +--------+---------+ + + + documented as of this encounter Visit Diagnoses + + | Diagnosis | + + | COPD (chronic obstructive pulmonary disease) (HCC) Chronic airway obstruction, not | | elsewhere classified | + + | Nocturnal hypoxemia Hypoxemia | + + documented in this encounter"
--- OUTSIDE RECORDS SUMMARY | ~2019-02-24 | XMS | Encounter Summary ---
Demographics + + + | Address | [address] | | | [place] [address] | + + + | Home Phone | | + + + | Preferred Language | Unknown | + + + | Marital Status | | + + + | Sikhism Affiliation | 1076 | + + + | Race | Unknown | + + + | Ethnic Group | Unknown | + + + Author + + + | Author | [facility] | | | and [place] | + + + | Organization | [facility] | | [...] Team Providers + +------+ + | Care Fiberglass Bonding Machine Tender Name | Role | Phone | [...] Gastrointest | [address] [place], | | | | | inal | [place], [place] | [address] | | | | | hemorrhage, | [address] [place] | [place], | | | | | unspecified | [place], [place] | [place] [address] | | | | | gastrointest | [address] | Phone: | | | | | inal | Phone: | [phone] | | | | | hemorrhage | [phone] | Fax: | | | | | type | Fax: | [phone] | | | | | Procedures | [phone] | | | | | | [place] GI IMAG | | | | | [...] + + | 10/01/ | Telephone | [facility] | Froylan Werner MD | Other (request auth | | 2016 | | GASTROENTEROLOGY | [address] [place], [place] | for SBCE (Pillcam)) | | | | [address] [place] | [address] [place] [facility] [place] | | | | | [address] [place] | [address] | | | | | [address] | | | | | | [phone] | | | +--------+ + + + [...] | | | | | [place] [address] | | | | | | [phone] | | | | | | | [...]
--- OUTSIDE RECORDS SUMMARY | ~2019-02-24 | XMS | Encounter Summary ---
Demographics + + + | Address | [address] | | | [place] [address] | + + + | Home Phone [...] | Organization | [facility] | | | [...] Team Providers + +------+ + | Care Filtration Plant Mechanic Name | Role | Phone | + [...] | | Abnormal | [place], | [address] | | | | | chest CT | Becca Segura, | [place], | | | | | Procedures | [address] | [place] [address] | | | | | CT Chest wo | [address] | Phone: | | | | | Contrast | [place], | [phone] | | | | | | [place] [address] | Fax: | | | | | | | [phone] | +--------+--------+ + + + + Encounter Details +--------+ + + + + | Date | Type | Department | Care Team | Description | +--------+ + + + + | 01/26/ | Hospital | [facility] | [place], | Abnormal chest CT | | 2012 | Encounter | MED CTR XRAY [address] | Becca Segura MD | | | | | [address] [place] | | | | | | [place] [address] | | | | | | [phone] | | | +--------+ + + + [...] [address] | | | | | | [place] [address] | | | | | | [phone] | | | | | | | [...] Performed At | + + + | [facility] Diagnostic Imaging | [place] | | Department [facility] | [facility] | | [ rep ct street1[address]2] [ rep ct [facility] [place] | | st zip] Signed | - IMAGING | | | | | Patient Name: DIEGO LUCAS Physician: | | | E. : 1935 Age: 77 Sex: M Unit #: [id number] | | | Exam Date: 01/26/13 Location: [facility] | | | Report #: [id number] Page: | | | %(RAD)RES..mtdd.print.filter("pg") of %(RAD) | | | RES..mtdd.print.filter("tpg") | | | | | | Accession Number: [id number] | | | CT CHEST WITHOUT CONTRAST [...] Transcribed Date/Time: | | | 01/26/2013 15:57 Ski Topper: | | | <<Signature on File>> | | | Froylan | | | Olivia Rodriguez MD01/26/132200 <Electronically signed by Froylan Baker | Lyndon Rodriguez MD> Froylan Rodriguez MD 01/26/13 1544 | | | Ski Topper: Novalact Ylnarhhvosecc76/05/13 1557 | | | Becca Castro MD | | + + + + + + + + | Performing | Address | City/State/Zipcode | Phone Number | | Organization | | | | + + + + + | [facility] | [address] | [place] | [phone] | | [facility] | | [address] | | | - IMAGING | | | | + + + + + documented in this encounter Visit Diagnoses + + | Diagnosis | + + | Abnormal chest CT Nonspecific (abnormal) findings on radiological and other | | examination of other intrathoracic organs | + + documented in this encounter
--- OUTSIDE RECORDS SUMMARY | ~2019-02-24 | XMS | Encounter Summary ---
Demographics + + + | Address | [address] | | | [place] [address] | + + + | Home Phone [...] | Organization | [facility] | [...] Team Providers + +------+ + | Care Police District Switchboard Operator Name | Role | Phone | [...] + + | 08/18/ | [facility] | [facility] | [place], | COPD (chronic | | 2013 | Visit | PULMONARY [address] | Becca Segura MD | obstructive | | | | [place], | | pulmonary disease) | | | | [place] [address] | | (Primary Dx); | | | | [phone] | | Nocturnal hypoxemia | | | | | | due to emphysema | | | | | | ([facility]); Pulmonary | | | | | | [...] been doing pretty well. He went to [place] to visit his sister and had a [...] He is currently on 2 LPM at [facility]. He reports good compliance. He does not have symptoms of heartburn or reflux. Past Medical History Past Medical History Diagnosis Date COPD (chronic obstructive pulmonary disease) (HCC) Peptic ulcer disease with upper GI bleed Benign prostatic hypertrophy Prostate cancer (HCC) s/p radiation treatment and on hormonal treatment with Lupron Osteoarthritis Heartburn Pulmonary nodules Cataracts, bilateral Pneumonia 05/2012 hospitalized [facility] Shoulder fracture 02/2012 Foot fracture 02/2012 [...] home. No other animal exposures.Grew up in [place]. Then lived in [place]. Then move d to [place]. In the service lived in [facility] and [place]. No recent travel. Allergies: Allergies Allergen Reactions [...] into the lungs nightly. Respiratory Therapy Supplies [facility] Please provide an O2 concentrator while Diego [...] made to ensure accuracy; however, inadvertent computerized crocheter errors may be pre sent. Electronically signed [...] | | | | | [place] [address] | | | | | | [phone] | | | | | | | [...]
--- OUTSIDE RECORDS SUMMARY | ~2019-02-24 | XMS | Encounter Summary ---
Demographics + + + | Address | [address] | | | [place] [address] | + + + | Home Phone [...] | [facility] | | | and [...] Team Providers + +------+ + | Care Emergency Service Restorer Name | Role | Phone | + +------+ + PCP | Unavailable | + +------+ + Encounter Details +--------+ + + + + | Date | Type | Department | Care Team | Description | +--------+ + + + + | 10/25/ | Hospital | [facility] | [place], | | | 2010 | Encounter | MED CTR XRAY [address] | Becca Segura MD | | | | | [address] | | | | | | [place] [address] | | | | | | [phone] | | | +--------+ + + + [...] | | | | | [place] [address] | | | | | | [phone] | | | | | | | [...] Performed At | + + + | [facility] Diagnostic Imaging Department | [facility] | | [address] [facility] | [facility] | | UNENHANCED CHEST CT: 12/16/2010 | [...] Transcribed Date/Time: 12/17/2010 07:02 | | | Flow Worker: <Electronically Signed by Colin Merrill MD> | | | 12/17/10 4620 | | + + + + + | Procedure Note | + + | Roosevelt, Rad Conversion - 03/31/2013 4:06 PM [facility] | | Diagnostic Imaging Department | | [address] [facility] | | | | | | [...] | Transcribed Date/Time: 12/17/2010 07:02 | | Flow Worker: LENNIE | | <Electronically Signed by Colin [...]
--- OUTSIDE RECORDS SUMMARY | ~2019-02-24 | XMS | Encounter Summary ---
Demographics + + + | Address | [address] | | | [place] [address] | + + + | Home Phone [...] | [facility] [...] Team Providers + +------+ + | Care Sales Operations Analyst Name | Role | Phone | [...] Description | +--------+--------+ + + + | 01/03/ | Refill | [facility] [place] | Jorje Rutledge | Medication Refill | | 2016 | | [address] | MD [address] | | | | | [place], [place] | [address] [facility] | | | | | [address] | [place] [address] | | | | | [phone] | [phone] | | | | | | | [...] | | | | | [place] [address] | | | | | | [phone] | | | | | | | | +--------+---------+ + + + documented as of this encounter Visit Diagnoses Not on filedocumented in this encounter"
--- OUTSIDE RECORDS SUMMARY | ~2019-02-24 | XMS | Encounter Summary ---
Demographics + + + | Address | [address] | | | [place] [address] | + + + | Home Phone [...] + | Organization | [facility] | | | and [...] Team Providers + +------+ + | Care Milking System Installer Name | Role | Phone | [...] | | Abnormal | [place], | [address] | | | | | chest CT | Becca Segura, | [place], | | | | | Procedures | [address] | [place] [address] | | | | | CT Chest wo | [address] | Phone: | | | | | Contrast | [place], | [phone] | | | | | | [place] [address] | Fax: | | | | | | | [phone] | +--------+--------+ + + + + Encounter Details +--------+ + + + + | Date | Type | Department | Care Team | Description | +--------+ + + + + | 01/26/ | Hospital | [facility] | [place]enstein, | Abnormal chest CT | | 2012 | Encounter | MED CTR XRAY [address] | Becca Segura MD | | | | | [place] | | | | | | [place] [address] | | | | | | [phone] | | | +--------+ + + + [...] [address] | | | | | | [place] [address] | | | | | | [phone] | | | | | | | [...] Performed At | + + + | [facility] Diagnostic Imaging | [facility] | | Department [facility] | [facility] | | [ rep ct street1+2] [ rep ct [facility] | | st zip] Signed | - IMAGING | | | | | Patient Name: DIEGO LUCAS Physician: | | | E. : 1935 Age: 77 Sex: M Unit #: [id number] | | | Exam Date: 01/26/13 Location: [facility] | | | Report #: [id number] Page: | | | %(RAD)RES..mtdd.print.filter("pg") of %(RAD) | | | RES..mtdd.print.filter("tpg") | | | | | | Accession Number: [id number] | | | CT CHEST WITHOUT CONTRAST [...] Transcribed Date/Time: | | | 01/26/2013 15:57 Selling Underwriter: | | | <<Signature on File>> | | | Froylan | | | Olivia Rodriguez MD01/26/132200 <Electronically signed by Froylan Baker | Lyndon Rodriguez MD> Froylan Rodriguez MD 01/26/13 1544 | | | Selling Underwriter: ClaraStream Azuzopgpazfcm48/05/13 1557 | | | Becca Castro MD | | + + + + + + + + | Performing | Address | City/State/Zipcode | Phone Number | | Organization | | | | + + + + + | [facility] | [address] | [place] | [phone] | | [facility] | | [address] | | | - IMAGING | | | | + + + + + documented in this encounter Visit Diagnoses + + | Diagnosis | + + | Abnormal chest CT Nonspecific (abnormal) findings on radiological and other | | examination of other intrathoracic organs | + + documented in this encounter
--- OUTSIDE RECORDS SUMMARY | ~2019-02-24 | XMS | Encounter Summary ---
Demographics + + + | Address | [address] | | | [place] [address] | + + + | Home Phone [...] Organization | [facility] | [...] Team Providers + +------+ + | Care Hair Baler Name | Role | Phone | + [...] | | | | | | [place] [address] | | | | | | [phone] | | | +--------+ + + + [...] | | | | | [place] [address] | | | | | | [phone] | | | | | | | | +--------+---------+ + + + documented as of this encounter Visit Diagnoses Not on filedocumented in this encounter"
--- OUTSIDE RECORDS SUMMARY | ~2019-02-24 | XMS | Encounter Summary ---
Demographics + + + | Address | [address] | | | [place] [address] | + + + | Home Phone [...] Organization | [facility] | | | and [...] Providers + +------+ + | Care Wire Stitcher Operator Name | Role | Phone | [...] [address] | | | | | [place], [place] | [address] [facility] | | | | | [address] | [place] [address] | | | | | [phone] | [phone] | | | | | | | [...] | | | | | [place] [address] | | | | | | [phone] | | | | | | | | +--------+---------+ + + + documented as of this encounter Visit Diagnoses Not on filedocumented in this encounter"
--- OUTSIDE RECORDS SUMMARY | ~2019-02-24 | XMS | Encounter Summary ---
Demographics + + + | Address | [address] | | | [place] [address] | + + + | Home Phone | | + + + | Preferred Language | Unknown | + + + | Marital Status | | + + + | Baptism Affiliation | 1076 | + + + | Race | Unknown | + + + | Ethnic Group | Unknown | + + + Author + + + | Author | [facility] | | | and [place] | + + + | Organization | [facility] | [...] Team Providers + +------+ + | Care Content Publisher Name | Role | Phone | + [...] | 08/04/ | Refill | [facility] [place] | Jorje Rutledge | Medication Refill | | 2016 | | [address] | [address] | | | | | [place], [place] | [address] [facility] | | | | | [address] | [place] [address] | | | | | [phone] | [phone] | | | | | | | [...] | | | | | [place] [address] | | | | | | [phone] | | | | | | | | +--------+---------+ + + + documented as of this encounter Visit Diagnoses Not on filedocumented in this encounter"
--- OUTSIDE RECORDS SUMMARY | ~2019-02-24 | XMS | Encounter Summary ---
Demographics + + + | Address | [address] | | | [place] [address] | + + + | Home Phone | | + + + | Preferred Language | Unknown | + + + | Marital Status | | + + + | Jehovah'S Witness Affiliation | 1076 | + + + | Race | Unknown | + + + | Ethnic Group | Unknown | + + + Author + + + | Author | [facility] | | | and [place] | + + + | Organization | [facility] [...] Team Providers + +------+ + | Care Fast Food Cook Name | Role | Phone | + [...] | | Abnormal | [place], | [address] | | | | | chest CT | Becca B, | [place], | | | | | Procedures | MD [address] | [place] [address] | | | | | CT Chest wo | [address] | Phone: | | | | | Contrast | [place], | [phone] | | | | | | [place] [address] | Fax: | | | | | | | [phone] | +--------+--------+ + + + + Reason for Visit +--------+ + | Reason | Comments | +--------+ + | Other | abnormal chest CT | +--------+ + Encounter Details +--------+---------+ + + + | Date | Type | Department | Care Team | Description | +--------+---------+ + + + | 10/27/ | Office | [facility] | [place], | Abnormal chest CT | | 2012 | Visit | PULMONARY [address] | Becca Segura MD | (Primary Dx); COPD | | | | [address] [place], | | (chronic obstructive | | | | [place] [address] | | pulmonary disease) | | | | [phone] | | ([facility]); Nocturnal | | | | | | [...] MD [place] Noyola [facility] [address] [place], [address] [facility] Diego Lucas is a 76 [...] Pulmonary nodules Cataracts, bilateral Pneumonia 05/2012 hospitalized [facility] Shoulder fracture 02/2012 Foot fracture 02/2012 [...] home. No other animal exposures.Grew up in [place]. Then lived in [place]. Then move d to [place]. In the service lived in [place] and [place]. No recent travel. Allergies: Allergies [...] get prior records from [facility] in [place], but they have sent us little information [...] made to ensure accuracy; however, inadvertent computerized shampoo assistant errors may be pre sent. documented in [...] | | | | | | [place] [address] | | | | | | [phone] | | | | | | | [...] | 10/28/2013 | | | | | ([facility]) Nocturnal | | | | | | hypoxemia | | + + +--------+ + + documented as of this encounter Results CT Chest wo Contrast (01/26/2013 3:44 PM PST) + + | Specimen | + + | | + + + + + | Narrative | Performed At | + + + | [facility] | [place] | | [address] | [place] | | [ rep ct street1+[address]] [ rep ct [facility] | st zip] Signed | - IMAGING | | | | | Patient Name: DIEGO LUCAS Physician: | | | E. : 1935 Age: 77 Sex: M Unit #: [id number] | | | Exam Date: 01/26/13 [place] [facility] [place] | | | Report #: [id number] Page: | | | %(RAD)RES..mtdd.print.filter("pg") of %(RAD) | | | RES..mtdd.print.filter("tpg") | | | | | | Accession Number: [id number] | | | CT CHEST WITHOUT CONTRAST [...] Transcribed Date/Time: | | | 01/26/2013 15:57 Endocrinology Nurse: AndrewALTON | | | <<Signature on File>> | | | Froylan | | | Olivia Rodriguez MD01/26/131 <Electronically signed by Fryolan Wall | | | Michael DONG> Froylan Rodriguez MD 01/26/13 1544 | | | Endocrinology Nurse: eSnips Bvskoqvtalyjs13/05/13 1557 | | | Becca Castro MD | | + + + + + + + + | Performing | Address | City/State/Zipcode | Phone Number | | Organization | | | | + + + + + | [facility] | [address] | [place] | [phone] | | [facility] | | [address] | | | - IMAGING | | [...]
--- OUTSIDE RECORDS SUMMARY | ~2019-02-24 | XMS | Encounter Summary ---
Demographics + + + | Address | [address] | | | [place] [address] | + + + | Home Phone [...] | [facility] | | | and [...] Team Providers + +------+ + | Care Computer Systems Analyst Name | Role | Phone | [...] 2017 | | GASTROENTEROLOGY | [address] [place], [place] | | | | | [address] [place] | [address] [place], [place] | | | | | [address] [place], [place] | [address] | | | | | [address] | | | | | | [phone] | | | +--------+ + + + [...] | | | | | [place] [address] | | | | | | [phone] | | | | | | | | +--------+---------+ + + + documented as of this encounter Visit Diagnoses Not on filedocumented in this encounter"
--- OUTSIDE RECORDS SUMMARY | ~2019-02-24 | XMS | Encounter Summary ---
Demographics + + + | Address | [address] | | | [place] [address] | + + + | Home Phone [...] | Organization | [facility] | [...] Providers + +------+ + | Care Plant Controller Name | Role | Phone | + +------+ + PCP | Unavailable | + +------+ + Encounter Details +--------+ + + + + | Date | Type | Department | Care Team | Description | +--------+ + + + + | 04/24/ | Hospital | [facility] | [place], | | | 2011 | Encounter | MED CTR XRAY [address] | Becca Segura MD | | | | | [place] | | | | | | [place] [address] | | | | | | [phone] | | | +--------+ + + + [...] | | | | | [place] [address] | | | | | | [phone] | | | | | | | [...] Performed At | + + + | [facility] Diagnostic Imaging Department | [facility] | | [address] [facility] | [facility] | | CHEST CT WITHOUT IV CONTRAST | [facility] | | 06/16/2011 CLINICAL HISTORY: [...] Transcribed Date/Time: | | | 06/17/2011 14:38 Fresh Foods Cake Decorator: <Electronically Signed | | | by Krzysztof Jewell MD> 06/18/11 0757 | | + + + + + | Procedure Note | + + | [place], Rad Conversion - 03/31/2013 5:11 PM [facility] | | Diagnostic Imaging Department [address] [place] [address] | | CHEST CT WITHOUT IV CONTRAST [...] 14:31 | |Transcribed Date/Time: 06/17/2011 14:38 | |Fresh Foods Cake Decorator: | |<Electronically Signed by Krzysztof Jewell MD> 06/18/11 0757 | + + + +---------+ + + | Performing | Address | City/State/[facility] | Phone Number | | Organization | | | | + +---------+ + + | [place] | | | | | [place] | | | | + +---------+ + + documented in this encounter Visit Diagnoses Not on filedocumented in this encounter"
--- OUTSIDE RECORDS SUMMARY | ~2019-02-24 | XMS | Encounter Summary ---
Demographics + + + | Address | [address] | | | [place] [address] | + + + | Home Phone [...] Organization | [facility] | [...] Team Providers + +------+ + | Care Hedge Fund Manager Name | Role | Phone | [...] + + | 12/27/ | Refill | [facility] | Jorje Rutledge | Medication Refill | | 2017 | | [address] | MD [address] | | | | | [place], [place] | [address] [facility] | | | | | [address] | [place] [address] | | | | | [phone] | [phone] | | | | | | | [...] | | | | | [place] [address] | | | | | | [phone] | | | | | | | | +--------+---------+ + + + documented as of this encounter Visit Diagnoses Not on filedocumented in this encounter"
--- OUTSIDE RECORDS SUMMARY | ~2019-02-24 | XMS | Encounter Summary ---
Demographics + + + | Address | [address] | | | [place] [address] | + + + | Home Phone | | + + + | Preferred Language | Unknown | + + + | Marital Status | | + + + | Yarsanism Affiliation | 1076 | + + + | Race | Unknown | + + + | Ethnic Group | Unknown | + + + Author + + + | Author | [facility] | | | and [place] | + + + | Organization | [facility] | | | and [...] Providers + +------+ + | Care Electric Stove Installer Name | Role | Phone | [...] + + | 01/26/ | [facility] | [facility] [place] | [place], | COPD (chronic | | 2012 | Visit | PULMONARY [address] | Becca Segura MD | obstructive | | | | [place], | | pulmonary disease) | | | | [place] [address] | | (HCC) (Primary Dx); | | | | [phone] | | Nocturnal hypoxemia; | | | [...] MD [place] Noyola Pulmonary [facility] Critical Care [facility] [address] [place], [address] HPI Diego Lucas is a 77 y.o. male patient of Parviz Brar here today for follow up of COPD. At their last visit, we had treated him antibiotics, a course of levofloxacin. We tried to get sputum cultures from his prior admission in [place], but they had not done any. They [...] thinking about joining the gym down in [place]. He has not had hemoptysis. He has been evaluated for nocturnal oxygen and does use it. He is currently on 1.5 LPM at [facility]. He reports good compliance. He does not use it when he goes out of town. Past Medical History Past Medical History Diagnosis Date COPD (chronic obstructive pulmonary disease) Peptic ulcer disease with upper GI bleed Benign prostatic hypertrophy Prostate cancer s/p radiation treatment and on hormonal treatment with Lupron Osteoarthritis Heartburn Pulmonary nodules Cataracts, bilateral Pneumonia 05/2012 hospitalized [facility] Shoulder fracture 02/2012 Foot fracture [...] home. No other animal exposures.Grew up in [place]. Then lived in [place]. Then move d to [place]. In the service lived in [facility] and [place]. No recent travel. Allergies: Allergies Allergen Reactions [...] made to ensure accuracy; however, inadvertent computerized attendant self service store errors may be pre sent. documented in [...] | | | | | [place] [address] | | | | | | [phone] | | | | | | | [...]
--- OUTSIDE RECORDS SUMMARY | ~2019-02-24 | XMS | Encounter Summary ---
Demographics + + + | Address | [address] | | | [place] [address] | + + + | Home Phone [...] [facility] | | | and [place] [...] Team Providers + +------+ + | Care Blockman Name | Role | Phone | + +------+ + PCP | Unavailable | + +------+ + Encounter Details +--------+ + + + + | Date | Type | Department | Care Team | Description | +--------+ + + + + | 04/08/ | Hospital | [facility] | | | | 1994 - | Encounter | MED CTR GENERIC IP | | | | | | CONV DEPT [address] | | | | 04/09/ | | [place], | | | | 1992 | | [place] [address] | | | | | | [phone] | | | +--------+ + + + [...] | | | | | | [place] [address] | | | | | | [phone] | | | | | | | | +--------+---------+ + + + documented as of this encounter Visit Diagnoses Not on filedocumented in this encounter"
--- OUTSIDE RECORDS SUMMARY | ~2019-02-24 | XMS | Encounter Summary ---
Demographics + + + | Address | [address] | | | [place] [address] | + + + | Home Phone [...] Organization | [facility] | | [...] Team Providers + +------+ + | Care Ankle Patch Molder Name | Role | Phone | + +------+ + PCP | Unavailable | + +------+ + Encounter Details +--------+ + + + + | Date | Type | Department | Care Team | Description | +--------+ + + + + | 08/30/ | Hospital | [facility] | [place], | | | 2010 | Encounter | MED CTR GENERIC OP | Becca Segura MD | | | | | CONV DEPT [address] | | | | | | [place], | | | | | | [place] [address] | | | | | | [phone] | | | +--------+ + + + [...] | | | | | [place] [address] | | | | | | [phone] | | | | | | | | +--------+---------+ + + + documented as of this encounter Visit Diagnoses Not on filedocumented in this encounter"
--- OUTSIDE RECORDS SUMMARY | ~2019-02-24 | XMS | Encounter Summary ---
Demographics + + + | Address | [address] | | | [place] [address] | + + + | Home Phone [...] Organization | [facility] | | | and [place] [...] Team Providers + +------+ + | Care Grinder Operator External Tool Name | Role | Phone | + [...] | Telephone | [facility] [place] | [place], | Appointment | | 2012 | | PULMONARY [address] | Becca Segura MD | | | | | [place], | | | | | | [place] [address] | | | | | | [phone] | | | +--------+ + + + [...] | | | | | [place] [address] | | | | | | [phone] | | | | | | | | +--------+---------+ + + + documented as of this encounter Visit Diagnoses Not on filedocumented in this encounter"
--- OUTSIDE RECORDS SUMMARY | ~2019-02-24 | XMS | Encounter Summary ---
Demographics + + + | Address | [address] | | | [place] [address] | + + + | Home Phone [...] + | Organization | [facility] | | [...] Team Providers + +------+ + | Care Money Order Clerk Name | Role | Phone | [...] [address] | | | | | [place], [place] | [facility] | | | | | [address] | [place] [address] | | | | | [phone] | [phone] | | | | | | | [...] | | | | | [place] [address] | | | | | | [phone] | | | | | | | | +--------+---------+ + + + documented as of this encounter Visit Diagnoses Not on filedocumented in this encounter"
--- OUTSIDE RECORDS SUMMARY | ~2019-02-24 | XMS | Encounter Summary ---
Demographics + + + | Address | [address] | | | [place] [address] | + + + | Home Phone [...] + | Organization | [facility] | | [...] Team Providers + +------+ + | Care Life Assurance Representative Name | Role | Phone | [...] Description | +--------+--------+ + + + | 08/06/ | Refill | [facility] | Jorje Rutledge | Medication Refill | | 2017 | | [address] | [address] | | | | | [place], [place] | [address] [facility] | | | | | [address] | [place] [address] | | | | | [phone] | [phone] | | | | | | | [...] | | | | | [place] [address] | | | | | | [phone] | | | | | | | | +--------+---------+ + + + documented as of this encounter Visit Diagnoses Not on filedocumented in this encounter"
--- OUTSIDE RECORDS SUMMARY | ~2019-02-24 | XMS | Encounter Summary ---
Demographics + + + | Address | [address] | | | [place] [address] | + + + | Home Phone | | + + + | Preferred Language | Unknown | + + + | Marital Status | | + + + | Adventism Affiliation | 1076 | + + + | Race | Unknown | + + + | Ethnic Group | Unknown | + + + Author + + + | Author | [facility] | | | and [place] | + + + | Organization | [facility] | | | and [place] [...] Team Providers + +------+ + | Care Chapter Relations Administrator Name | Role | Phone | [...] [place] | | | | | [place], [place] | [address] | | | | | [address] | [phone] | | | | | [phone] | | | +--------+ + + + [...] | | | | | [place] [address] | | | | | | [phone] | | | | | | | [...] TR | | | Vmax: 3.24 m/s Fan Blade Truer: MARIUM Authenticated by: Sailaja | | | [...] cmLVIDd: 4.16 cmLVPWd: 0.99 cmLVOT Area: 3.08 mz1SBVW Diam: | | 1.98 cm%FS: 18.59 %EF(Teich): [...] mlLAESV Index (A-L): 27.33 ml/m2LAAs A2C: 18.95 kr9YDAPH A-L A2C: 56.88 | | mlLALs A2C: 5.36 cmLAAs A4C: 17.45 lg5XYEAU A-L A4C: 50.86 mlLALs A4C: 5.08 | | cmRAAs: 13.90 kf9WYVAL A-L: 34.51 mlRAESV MOD: 32.71 mlRALs: 4.75 cmTAPSE: | | 1.79 cmAV maxP.58 mmHgAV meanP.29 mmHgAV Vmax: 1.62 m/Cecy Vmean: 1.18 | | m/Cecy VTI: 31.29 cmAVA Vmax: 3.05 cm2AVA (VTI): 3.05 hz7QLLI Vmax: 0.00 | | cm2/m2AVAI (VTI): 0.00 cm2/m2LVOT maxP.38 mmHgLVOT meanP.72 mmHgLVSI | | Dopp: 47.36 ml/m2LVSV Dopp: 95.67 mlLVOT Vmax: 1.61 m/sLVOT Vmean: 1.10 m/sLVOT | | VTI: 30.97 cmMV A Justin: 0.89 m/sMV DecT: 265.07 msMV E Justin: 0.58 m/sMV E/A Ratio: | | 0.65MV PHT: 76.87 msMVA By PHT: 2.86 qz2Rciomc e': 0.04 m/sSeptal E/e': | | 12.88Lateral e': 0.09 m/sLateral E/e': 6.53RAP: 5 mmHgRVSP: 47.14 mmHgTR maxPG: | | 42.14 mmHgTR Vmax: 3.24 m/s Fan Blade Truer: DHAuthenticated by: Sailaja Rocha | | Date/Time: [...] |TR Vmax: 3.24 m/s | | | |Fan Blade Truer: | |Authenticated by: Sailaja Niño | |Report [...]
--- OUTSIDE RECORDS SUMMARY | ~2019-02-24 | XMS | Encounter Summary ---
Demographics + + + | Address | [address] | | | [place] [address] | + + + | Home Phone [...] | Organization | [facility] | | | and [...] Team Providers + +------+ + | Care Rug Frame Mounter Name | Role | Phone | + [...] Segura MD | | | | | [place], | | | | | | [place] [address] | | | | | | [phone] | | | +--------+ + + + [...] | | | | | [place] [address] | | | | | | [phone] | | | | | | | | +--------+---------+ + + + documented as of this encounter Visit Diagnoses Not on filedocumented in this encounter"
--- OUTSIDE RECORDS SUMMARY | ~2019-02-24 | XMS | Encounter Summary ---
Demographics + + + | Address | [address] | | | [place] [address] | + + + | Home Phone | | + + + | Preferred Language | Unknown | + + + | Marital Status | | + + + | Yazidism Affiliation | PRE | + + + [...] Team Providers + +------+ + | Care Qc Tech Name | Role | Phone | [...] intranasal control | | | | Rd MNFANNY Lundberg | [address] | of epistaxis; | | | | Hospital Admitting | [place], [place] | ethmoid artery | | | | Desk Located on the | [address] | ligation; maxillary | | | | 9th floor | [phone] | sinus lavage | | | | [place], [place] | | | | | | [address] | | | +--------+---------+ + + + [...] medications Details oxymetazoline 0.05 % Nasal Aerosol, [place] Instill 2 Sprays into each nostril every six hour s as needed (Epistaxis). Use for only 3 days. sodium chloride 0.65 % Nasal Aerosol, [place] Instill 2 Sprays in nose every two [...] concerning symptoms, call Dr. Cherry's clinic at [phone]. If you fee l you are having [...] Wednesday for packing removal at 2:30 pm. [facility] [phone] for questions. Destination: Destination: Custodial Facility Condition on Discharge Good Vitals on [...] | | | 13 | | | [place] | every six hours as | | [...] | | 13 | | | Aerosol, [place] | while awake. | | | | [...] AM PDT PATIENT NAME: Diego Lucas MR#: [id number] : 1935 PRIMARY CARE PROVIDER: Parviz Brar, [...] though he uses supplemental oxygen at his alf [facility]. ASSESSMENT: Mr. Lucas remains hospitalized for [...] pack removal on Wednesday. Fredrick Cherry M.D. Dye Line Operator Laryngology and Head & Neck Surgery [facility] DEPARTMENT: ENT LARYNGOLOGY PPV - [phone] Place of Service: [address]8635 - Date of Service: 06/14/2012 CSN: [id number] Suggested Modifiers: GC - Resident Involved Suggested Level of Care: 38074 - Discharge Day mgmt up to 30 min Fredrick Villasenor MD - 06/13/2012 11:21 PM PDT PATIENT NAME: Diego Lucas [facility] MR#: [id number] : 1935 PRIMARY CARE PROVIDER: Parviz Brar, [...] if still not bleeding. Fredrick Cherry M.D. Dye Line Operator Laryngology and Head & Neck Surgery [facility] DEPARTMENT: ENT LARYNGOLOGY PPV - [phone] Place of Service: 14052 - Date of Service: 06/13/2012 CSN: [id number] Suggested Modifiers: GC - Resident Involved Suggested Level of Care: 28688 - Subsequent, Prob Foc/low complex 15 min Rush Mahmood MD - 06/13/2012 12:16 PM PDT [facility] Department of Surgery ENT Head & Neck [...] -Recheck crit tomorrow am Dispo: Back to [facility] tomorrow. Dr. Fredrick Cherry MD is the attending of record for this patient encounter. RUSH MOSS MD PGY-1, Plastic and Reconstructive Surgery pgr [phone] Diagnoses: 784.7 Epistaxis 215348 Anemia Meds: amLODIPine (aka NORVASC) tablet 5 [...] (aka AFRIN) 0.05 % nasal spray 2 [place], 2 [place], both nostrils, Q6H polyethylene glycol (aka MIRALAX) powder 17 g, 17 g, Oral, DAILY promethazine (aka PHENERGAN) injection 12.5 mg, 12.5 mg, Intravenous, Q6H PRN sodium chloride (aka OCEAN) 0.65 % nasal spray 2 [place], 2 [place], Nasal, Q2H [place] tamsulosin (aka FLOMAX) capsule 0.4 mg, 0.4 mg, Oral, QPM temazepam (aka RESTORIL) capsule 15 mg, 15 mg, Oral, HS PRN Fredrick Villasenor MD - 06/12/2012 9:17 PM PDT PATIENT NAME: Diego Lucas [facility] MR#: [id number] : 1935 PRIMARY CARE PROVIDER: Parviz Brar [...] equal. Vision is grossly intact on the ks ght. There is no red desaturation. The [...] Observe for resumed bleeding. Fredrick Cherry M.D. Dye Line Operator Laryngology and Head & Neck Surgery [facility] DEPARTMENT: ENT LARYNGOLOGY [facility] - [phone] Place of Service: 32059 - Date of Service: 06/12/2012 CSN: [id number] Suggested Modifiers: GC - Resident Involved Suggested Level of Care: 64321 - Subsequent, Prob Foc/low complex 15 min [...] (aka AFRIN) 0.05 % nasal spray 2 [place], 2 [place], both nostrils, Q6H, Oc Cochran MD, 2 [place] at 06/11/12 0218 polyethylene glycol (aka MIRALAX) powder 17 g, 17 g, Oral, DAILY, Oc Cochran MD, 17 g at 06/10/12 0837 promethazine (aka PHENERGAN) injection 12.5 mg, 12.5 mg, Intravenous, Q6H PRN, Oc Cochran MD, 12.5 mg at 06/10/12 2210 sodium chloride (aka OCEAN) 0.65 % nasal spray 2 [place], 2 [place], Nasal, Q2H [place], Mary Myers MD, 2 [place] at 06/12/12 0127 tamsulosin (aka FLOMAX) capsule 0.4 mg, 0.4 mg, Oral, QPM, Oc Cochran MD, 0.4 mg at 05/24 2221 temazepam (aka RESTORIL) capsule 15 mg, 15 mg, Oral, HS PRN, cO Cochran MD, 15 mg at 0234 Labs: [...] Oc Cochran MD, 250 mg at 06/10/12 6060 ceFAZolin (aka ANCEF) IV 1 g, 1 [...] (aka AFRIN) 0.05 % nasal spray 2 [place], 2 [place], both nostrils, Q6H, Oc Cochran MD, 2 [place] at 06/11/12 0218 polyethylene glycol (aka MIRALAX) powder 17 g, 17 g, Oral, DAILY, Oc Cochran MD, 17 g at 06/10/12 0837 promethazine (aka PHENERGAN) injection 12.5 mg, 12.5 mg, Intravenous, Q6H PRN, Oc Cochran MD, 12.5 mg at 06/10/12 2210 sodium chloride (aka OCEAN) 0.65 % nasal spray 2 [place], 2 [place], Nasal, Q2H [place], Mary Myers MD, 2 [place] at 06/10/12 2234 tamsulosin (aka FLOMAX) capsule [...] (aka AFRIN) 0.05 % nasal spray 2 [place], 2 [place], both nostrils, Q6H, Oc Cochran MD, 2 [place] at 06/10/12 0215 polyethylene glycol (aka MIRALAX) [...] Otolaryngology Head and Neck Surgery PGY2 pager [phone] documented in this enco unter Plan of [...] | | | een | | | [address] | | | | | | 3 [...] view image for the detailed interpretation from [facility] results. | CARDIOLOGY | + + + + + + + + | Performing | Address | City/State/Zipcode | Phone Number | | Organization | | | | + + + + + | [facility] | [address] | [place], [place] | | | CARDIOLOGY | [address] | [address] | | + + + + + RAINBOW HOLD TUBE - PURPLE TOP (06/13/2012 7:17 PM PDT) + + | Specimen | + + | Blood - Blood | + + + + + + + | Performing | Address | City/State/Zipcode | Phone Number | | Organization | | | | + + + + + | [facility] | [address] | [place] [address] | | | SERVICES, CORE | ELIECER [...] | | | LABORATORY | | | [place] | | | SERVICES, | | | [...] | + + + + + | [facility] | [address] | [place] [address] | | | SERVICES, CORE | [address] | | | + + + + + TROPONIN I, PLASMA (06/13/2012 7:17 PM PDT) + +-------+ + + + | Component | Value | Ref Range | Performed | Pathologist | | | | | At | Signature | + +-------+ + + + | TROPONIN I | <0.02 | <0.80 ng/mL | [facility] | | | | | | LABORATORY [...] | + + + + + | [facility] | [address] | [place] [address] | | | SERVICES, CORE | PARK [...] | + + + + + | [facility] | [address] | [place] [address] | | | SERVICES, [facility] | [address] | | | + + + + + OPERATION RECORD (06/13/2012 3:45 PM PDT) + + | Transcriptions | + + | Janeth Casiano MD - 06/12/2012 11:40 PM PDT Date: | | 06/11/2012ttending Surgeon: Fredrick Cherry M.D.Marketing Community Liaison(s): | | Janeth Casiano M.D. | | [...] in right medial orbital | | incision.Indications:Mr. uLcas is a 76-year-old gentleman with a week [...] of Avitene along the ethmoid bone. Aquarter-inch Butler was | | then placed and the [...] | pulsations just anterior tothis. Using a Pershing elevator we then made an incision | [...] | | Elmer Casiano.Fredrick Cherry M.D.LALA / [id number] / [id number] / [id number] / T: | | 06/12/2012 | |superior [...] just anterior to | |this. Using a Pershing elevator we then made an incision through [...] | | | |JGL / HS | |[id number] / [id number] / [id number] / | | | | | + [...] [facility] | [address] | [place] [address] | | | SERVICES, CORE | PARK [...] | + + + + + | [facility] | [address] | [place] [address] | | | SERVICES, CORE | ELIECER [...] | + + + + + | [facility] | [address] | [place] [address] | | | RAFAEL TYLER | ELIECER [...] [facility] | [address] | [place], [place] | | | CESAR POINT OF CARE | [address] | [address] | | | TESTS | | | [...] [facility] | [address] | [place], [place] | | | CESAR POINT OF CARE | [facility] | [address] | | | TESTS | | | [...] + + + + | PRODUCT | [id number] | | [facility] | | | UNIT [...] + + + + | BLOOD | 14752 | | [facility] | | | PRODUCT [...] | + + + + + | [facility] | [address] | [place] [address] | | | PATHOLOGY | [address] [...] + + + + | PRODUCT | [id number] | | [facility] | | | UNIT [...] + + + + | BLOOD | 88187 | | [facility] | | | PRODUCT [...] | + + + + + | [facility] DEPARTMENT | [address] | [place] [address] | | | PATHOLOGY | [address] [...] view image for the detailed interpretation from [facility] results. | CARDIOLOGY | + + + + + + + + | Performing | Address | City/State/Zipcode | Phone Number | | Organization | | | | + + + + + | [facility] | [address] | [place], [place] | | | CARDIOLOGY | [facility] | [address] | | + + + + + [...] | + + + + + | [facility] | [address] | [place] [address] | | | SERVICES, CORE | PARK [...] [facility] | [address] | [place] [address] | | | SERVICES, CORE | ELIECER [...] | + + + + + | [facility] | [address] | [place] [address] | | | SERVICES, CORE | PARK [...] + + + + | PRODUCT | [id number] | | [facility] | | | UNIT [...] + + + + | BLOOD | 60970 | | [facility] | | | PRODUCT [...] DEPARTMENT OF | [address] | [place] [address] | | | PATHOLOGY | [address] [...] + + + + | PRODUCT | [id number] | | [facility] | | | UNIT [...] + + + + | BLOOD | 10819 | | [facility] | | | PRODUCT [...] | + + + + + | [facility] | [address] | [place] [address] | | | PATHOLOGY | [address] [...] + + + + | PRODUCT | [id number] | | [facility] | | | UNIT [...] + + + + | BLOOD | 20604 | | [facility] | | | PRODUCT [...] DEPARTMENT OF | [address] | [place] [address] | | | PATHOLOGY | [address] [...] | + + + + + | [facility] | [address] | [place] [address] | | | SERVICES, CORE | ELIECER [...] | | | LABORATORY | | | [address] | | | SERVICES, | | | [...] the MDRD equation recommended by the | [facility] | | National Kidney Disease Education Program. [...] | + + + + + | [facility] | [address] | [place] [address] | | | NAYELI, RAFAEL | ELIECER [...] [facility] | [address] | [place] [address] | | | SERVICES, CORE | ELIECER [...] | + + + + + | [facility] | [address] | [place] [address] | | | SERVICES, CORE | ELIECER [...] | | | | | | M.D. WOOD GRINDER OPERATOR SURGEONS: | | | | | | [...] | | | | | Bentson wire,a 6-Romansh | | | | | | short sheath was | | | | | | placed. Through the | | | | | | 6-Romansh shortsheath, a | | | | | | 6-Romansh Envoy was | | | | | [...] [facility] | [address] | [place] [address] | | | SERVICES, | [address] [...] [facility] | [address] | [place] [address] | | | SERVICES, | [address] [...] [facility] | [address] | [place] [address] | | | SERVICES, CORE | PARK [...] [facility] | [address] | [place], [place] | | | C[facility]AR POINT [facility] | [facility] | [address] | | | TESTS | | | [...]
--- OUTSIDE RECORDS SUMMARY | ~2019-02-24 | XMS | Encounter Summary ---
Demographics + + + | Address | [address] | | | [place] [address] | + + + | Home Phone [...] + + + | Author | [facility] | + + + | Organization | [facility] | + + + | Address | Unknown | + + + | Phone | Unavailable | + + + Support + + +---------+ + | Name | Relationship | Address | Phone | + + +---------+ + | Andrez Lucas | ECON | Unknown | Unavailable | + + +---------+ + Care Team Providers + +------+ + | Care Head End Desizing Machine Operator Name | Role | Phone [...] + + | 06/06/ | Emergency | [facility] Emergency | Macy Evans, | | | 2012 | | Department [address] | [address] | | | | | [facility] | [place], [place] | | | | | [facility] | [address] | | | | | [place], [place] | | | | | | [address] | | | | | | [phone] | | | +--------+ + + + [...] Horn - 06/06/2012Thank you for visiting the [facility] long and for your patience. I am glad we could get the bleeding to stop. In the morning call your primary care doctor to ask about the humidified oxygen. Use [place] twice a day in both nostrils to keep the lining moist. Check in with your PCP in about 1 week to make sure you are doing well. If you have any problems you can call the Ear Nose and Throat doctors/Otolaryngology (Head & Neck Surgery): [phone]. Afrin as needed: if a new episode [...] [facility] | [address] | [place] [address] | | | NAYELI, | ELIECER SALGUERO [...] | + + + + + | [facility] | [address] | [place] [address] | | | RAFAEL TYLER | ELIECER [...] [facility] | [address] | [place] [address] | | | RAFAEL TYLER | ELIECER [...] | + + + + + | [facility] | [address] | [place] [address] | | | SERVICES, RAFAEL | ELIECER [...] [facility] | [address] | [place] [address] | | | SERVICES, | [address] [...] | + + + + + | [facility] | [address] | [place] [address] | | | SERVICES, | [address] [...] | + + + + + | [facility] | [address] | [place] [address] | | | SERVICES, CORE | [address] | | | + + + + + documented in this encounter Visit Diagnoses + + | Diagnosis | + + | Epistaxis - Primary | + + documented in this encounter"
--- OUTSIDE RECORDS SUMMARY | ~2019-02-24 | XMS | Encounter Summary ---
Demographics + + + | Address | [address] | | | [place] [address] | + + + | Home Phone [...] | Organization | [facility] [...] Team Providers + +------+ + | Care Laborer [place] Name | Role | Phone | + +------+ + PCP | Unavailable | + +------+ + Encounter Details +--------+ + + + + | Date | Type | Department | Care Team | Description | +--------+ + + + + | 08/22/ | Hospital | [facility] | | | | 2007 - | Encounter | [facility] CANCER | | | | | | CENTER [address] | | | | 09/21/ | | [place] | | | | 2007 | | [address] | | | | | | [phone] | | | +--------+ + + + [...] | | | | | [place] [address] | | | | | | [phone] | | | | | | | | +--------+---------+ + + + documented as of this encounter Visit Diagnoses Not on filedocumented in this encounter"
--- OUTSIDE RECORDS SUMMARY | ~2019-02-24 | XMS | Encounter Summary ---
Demographics + + + | Address | [address] | | | [place] [address] | + + + | Home Phone [...] Organization | [facility] | | [...] Team Providers + +------+ + | Care Pre K Special Education Teacher Name | Role | Phone | + +------+ + | Parviz Brar DO | PCP | | + +------+ + Encounter Details +--------+---------+ + + + | Date | Type | Department | Care Team | Description | +--------+---------+ + + + | 12/10/ | Office | [facility] | [place], | COPD (chronic | | 2015 | Visit | PULMONARY [address] | Billy Segura MD | obstructive | | | | [place], | | pulmonary disease) | | | | [place] [address] | | (Primary Dx); | | | | [phone] | | 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 Stop the Qvar. Start on Breo 1 [...] tax they are trying to institute in [place]. Roberto Carlos michael did find out he [...] He is currently on 2 LPM at [facility]. He reports good compliance. Past Medical History Past Medical History Diagnosis Date Peptic ulcer disease with upper GI bleed Benign prostatic hypertrophy Osteoarthritis Heartburn Pulmonary nodules Shoulder fracture 02/2012 Foot fracture 02/2012 SVT (supraventricular tachycardia) 01/[address] Wilder for ablation Depression Prostate cancer (HCC) 2007 s/p radiation treatment and on hormonal treatment with Lupron; DR JULIAN IN [place] COPD (chronic obstructive pulmonary disease) ([facility]) DR BILLY ARAUJO Pneumonia 05/2012 [address] [facility] Heart murmur DR MARIAA OLIVERA Cataracts, [...] Laterality: N/A; Surgeon: Jennifer Wilder MD; Location: [facility] ELECTROPHYSIOLOGY Social History: History Social History Marital [...] No other animal exposures. Grew up in [place]. Then lived in [place]. Then moved to [place]. In the service lived i [facility] and [place]. No recent travel. Allergies: Allergies [...] PO) Take by mouth. Respiratory Therapy Supplies [facility] Please provide an O2 concentrator while Diego [...] made to ensure accuracy; however, inadvertent computerized research consultant errors may be pre sent. documented in [...] | | | | | [place] [address] | | | | | | [phone] | | | | | | | [...]
--- OUTSIDE RECORDS SUMMARY | ~2019-02-24 | XMS | Encounter Summary ---
Demographics + + + | Address | [address] | | | [place] [address] | + + + | Home Phone [...] Organization | [facility] [...] Team Providers + +------+ + | Care Extension Service Agent Name | Role | Phone | + +------+ + | Parviz Brar DO | PCP | | + +------+ + Encounter Details +--------+ + + + + | Date | Type | Department | Care Team | Description | +--------+ + + + + | 06/16/ | Hospital | [facility] IP | Conversion | Pain | | 2017 | Encounter | CONVERSION [address] | Transaction, | | | | | [address] | Provider Unknown | | | | | [place], [place] | [phone] | | | | | [address] | | | | | | [phone] | | | +--------+ + + + [...] | | | | | [place] [address] | | | | | | [phone] | | | | | | | [...]
--- OUTSIDE RECORDS SUMMARY | ~2019-02-24 | XMS | Encounter Summary ---
Demographics + + + | Address | [address] | | | [place] [address] | + + + | Home Phone [...] | Organization | [facility] | | | and [place] [...] Team Providers + +------+ + | Care Uniform Patrol Police Officer Name | Role | Phone | + +------+ + | Parviz Brar DO | PCP | | + +------+ + Reason for Visit +--------+ + | Reason | Comments | +--------+ + | Other | oxygen for [place] trip | +--------+ + Encounter Details +--------+ + + + + | Date | Type | Department | Care Team | Description | +--------+ + + + + | 06/14/ | Telephone | [facility] [place] | [place], | Other (oxygen for | | 2013 | | PULMONARY [address] | Becca Segura MD | [facility]) | | | | [place], | | | | | | [place] [address] | | | | | | [phone] | | | +--------+ + + + [...] | | | | | [place] [address] | | | | | | [phone] | | | | | | | | +--------+---------+ + + + documented as of this encounter Visit Diagnoses Not on filedocumented in this encounter"
--- OUTSIDE RECORDS SUMMARY | ~2019-02-24 | XMS | Encounter Summary ---
Demographics + + + | Address | [address] | | | [place] [address] | + + + | Home Phone [...] Organization | [facility] | | | [...] Team Providers + +------+ + | Care Earth Science Technician Name | Role | Phone | [...] | with CXR) | | | | [place], | | | | | | [place] [address] | | | | | | [phone] | | | +--------+ + + + [...] | | | | | | [place] [address] | | | | | | [phone] | | | | | | | [...] ST. | [address] | [place], [place] | [phone] | | [facility] | | [address] | | | - IMAGING | | | | + + + + + documented in this encounter Visit Diagnoses + + | Diagnosis | + + | Pneumonia of left lower lobe due to infectious organism (HCC) - Primary | + + documented in this encounter"
--- OUTSIDE RECORDS SUMMARY | ~2019-02-24 | XMS | Encounter Summary ---
Demographics + + + | Address | [address] | | | [place] [address] | + + + | Home Phone [...] | Organization | [facility] | | [...] Team Providers + +------+ + | Care Supervisor Data Processing Name | Role | Phone | + +------+ + | Parviz Brar DO | PCP | | + +------+ + Encounter Details +--------+ + + + + | Date | Type | Department | Care Team | Description | +--------+ + + + + | 03/06/ | Hospital | [facility] | [place], | Pneumonia of left | | 2016 | Encounter | MED CTR XRAY [address] | Becca Segura MD | lower lobe due to | | | | [place] | | infectious organism | | | | [place] [address] | | | | | | [phone] | | | +--------+ + + + [...] | | | | | [place] [address] | | | | | | [phone] | | | | | | | [...] ST. | [address] | [place] | [phone] | | [facility] | | [address] | | | - IMAGING | | | | + + + + + documented in this encounter Visit Diagnoses + + | Diagnosis | + + | Pneumonia of left lower lobe due to infectious organism (HCC) | + + documented in this encounter"
--- OUTSIDE RECORDS SUMMARY | ~2019-02-24 | XMS | Encounter Summary ---
Demographics + + + | Address | [address] | | | [place] [address] | + + + | Home Phone [...] Organization | [facility] | [...] Team Providers + +------+ + | Care Silver Designer Name | Role | Phone | + [...] Description | +--------+--------+ + + + | 01/20/ | Refill | [facility] [place] | [place], | Medication Refill | | 2014 | | PULMONARY [address] | Becca Segura MD | | | | | [place], | | | | | | [place] [address] | | | | | | [phone] | | | +--------+--------+ + + + [...] | | | | | [place] [address] | | | | | | [phone] | | | | | | | | +--------+---------+ + + + documented as of this encounter Visit Diagnoses Not on filedocumented in this encounter"
--- OUTSIDE RECORDS SUMMARY | ~2019-02-24 | XMS | Encounter Summary ---
Demographics + + + | Address | [address] | | | [place] [address] | + + + | Home Phone | | + + + | Preferred Language | Unknown | + + + | Marital Status | | + + + | Spiritism Affiliation | PRE | + + + | Race | White | + + + | Ethnic Group | Not or | + + + Author + + + | Author | [facility] | + + + | Organization | [facility] | + + + | Address | Unknown | + + + | Phone | Unavailable | + + + Support + + +---------+ + | Name | Relationship | Address | Phone | + + +---------+ + | Andrez Lucas | ECON | Unknown | Unavailable | + + +---------+ + Care Team Providers + +------+ + | Care Roofer Helper Name | Role | Phone | [...] + + | 06/07/ | Emergency | [facility] Emergency | Taylor Deng MD | | | 2012 - | | Department [address] | [address] | | | | | [place] | [facility], | | | 06/08/ | | [facility] | [place] [address] | | | 2012 | | [place], [place] | [phone] | | | | | [address] | | | | | | [phone] | Benjie Cardona MD | | | | | | [address] | | | | | | [place], | | | | | | [place] [address] | | | | | | [phone] | | | | | | | | | | | | Sheeba Edwards, | | | | | | ESCALATOR SERVICE MECHANIC [address] | | | | | | [address] | | | | | | [place], [place] | | | | | | [address] | | | | | | [phone] | | | | | | | [...] and HTN cesar ntjewell staying in the [facility] who presented to the ED for the [...] Mr. Lucas was discharged back to the [facility]. Discharge vitals: BP 131/76 | Pulse 100 [...] (25-50cells/HPF) (none) HYPOCHROMIA 1+ (10-25cells/HPF) (none) Disposition: [facility] Discharge Condition: stable Medications: Cephalexin 500 mg [...] from the original. Thank you for choosing [facility] for your care. Please follow-up with [...] Packing: After Your Visit", log into your [employer] account at [email or web address]. You can enter [email or web address] in the Arkimedia Library" search box. Not on [employer]ings? Review the Celatonhart section of your After Visit Summary for directions on ho w to sign up. [phone] MeBeam. Care instructions adapted under license by [facility]. This care instruction is for use with your licensed healthcar e professional. If you have questions about a medical condition or this instruction, always ask your healthcare professional. MeBe[employer] disclaims any warranty or liabili ty for your use of this information. Content Version: 9.6.452270; Last Revised: April 06, 2011 Nosebleeds: After [...] "Nosebleeds: After Your Visit", log into your [employer] account at [email or web address]. You can enter [id number] in the Proclivity Systems" search box. Not on Bre[employer] Buildings? Review the Breathing Buildings section of your After Visit Summary for directions on ho w to sign up. [phone] MeBeam. Care instructions adapted under license by [facility]. This care instruction is for use with your licensed healthReplenish e professional. If you have questions about a medical condition or this instruction, always ask your healthcare professional. MeBeam disclaims any warranty or liabili ty for your use of this information. Content Version: 9.6.710751; Last Revised: August 19, 2011 documented in [...] [facility] | [address] | [place] [address] | | | NAYELI, RAFAEL | ELIECER [...] | + + + + + | [facility] | [address] | [place] [address] | | | SERVICES, CORE | ELIECER [...] - KRIS | [address] | [place], [place] | | | [facility] | [address] | [address] | | | TESTS | | | [...] | + + + + + | [facility] | [address] | [place] [address] | | | SERVICES, CORE | PARK [...]
--- OUTSIDE RECORDS SUMMARY | ~2019-02-24 | XMS | Encounter Summary ---
Demographics + + + | Address | [address] | | | [place] [address] | + + + | Home Phone [...] + | Organization | [facility] [...] Team Providers + +------+ + | Care Sql Server Developer Name | Role | Phone | + +------+ + PCP | Unavailable | + +------+ + Encounter Details +--------+ + + + + | Date | Type | Department | Care Team | Description | +--------+ + + + + | 12/19/ | Hospital | [facility] | | | | 2009 - | Encounter | [facility] CTR CANC[facility] | | | | | | CENTER [address] | | | | 12/22/ | | [place] | | | | 2009 | | [address] | | | | | | [phone] | | | +--------+ + + + [...] | | | | | | [address] | | | | | | [place] [address] | | | | | | [phone] | | | | | | | | +--------+---------+ + + + documented as of this encounter Visit Diagnoses Not on filedocumented in this encounter"
--- OUTSIDE RECORDS SUMMARY | ~2019-02-24 | XMS | Encounter Summary ---
Demographics + + + | Address | [address] | | | [place] [address] | + + + | Home Phone [...] | [facility] | | | [...] Team Providers + +------+ + | Care Route Salesman And Driver Name | Role | Phone | + [...] | | | [place] | [address] [facility] | History of prostate | | | | [address] | [place] [address] | cancer | | | | [phone] | [phone] | | | | | | | [...] | | | | | | [place] [address] | | | | | | [phone] | | | | | | | [...]
--- OUTSIDE RECORDS SUMMARY | ~2019-02-24 | XMS | Encounter Summary ---
Demographics + + + | Address | [address] | | | [place] [address] | + + + | Home Phone [...] Organization | [facility] | [...] Team Providers + +------+ + | Care Asphalt Plant Operator Name | Role | Phone [...] [address] | | | | | [place], [place] | [facility] | | | | | [address] | [place] [address] | | | | | [phone] | [phone] | | | | | | | [...] | | | | | [place] [address] | | | | | | [phone] | | | | | | | | +--------+---------+ + + + documented as of this encounter Visit Diagnoses Not on filedocumented in this encounter"
--- OUTSIDE RECORDS SUMMARY | ~2019-02-24 | XMS | Encounter Summary ---
Demographics + + + | Address | [address] | | | [place] [address] | + + + | Home Phone [...] Organization | [facility] | | [...] Team Providers + +------+ + | Care Saturation Diver Name | Role | Phone | [...] + + | 06/11/ | Office | [facility] [place] | [place], | COPD (chronic | | 2014 | Visit | PULMONARY [address] | Billy Segura MD | obstructive | | | | [place], | | pulmonary disease); | | | | [place] [address] | | Nocturnal hypoxemia | | | | [phone] | | due to emphysema | | [...] night at 2L. If you go to [place], make sure you take the oxygen like before. June 11, 2014 Diego Lucas [address] [place] [address] Dear Diego: Thank you for enrolling in [facility]. Please follow the instructions below to view your [employer] online medical record. [facility] allows you to send secure messages to your doctor, view you r test results, renew your prescriptions, schedule appointments, and more. How Do I Sign Up? 1. In your Internet browser, go to [email or web address] 2. Click on the "Sign up with your activation code" button in the "New User?" box. This iza l take you to the New Member Sign Up page. 3. Enter your [facility] activation code exactly as it appears below. You will not need to use this code after you sign up. If you do not sign up before the expiration date, you must req uest a new code through your [place] clinic. [facility] Activation Code: [email or web address] Expires: 08/10/2014 14:54 4. Fill in the last four digits of your Social Security Number (xxxx) and Date of (mm /dd/yyyy) and click Next. 5. Create a [place] [facility] username. Your username cannot be changed, so think of one t hat is secure and easy to remember. 6. Create a [facility] password. You can change your password at any time. 7. Enter your security question and answer. This can be used at a later time if you forget your password. Click Next. 8. Enter your e-mail address. You will receive e-mail notification when new information is available in [facility]. 9. Click "Sign In". You may now view your medical record. Additional Information If you have questions, you can email [email or web address] or call [phone] to talk to our MyChart care team. Please remember, MyChart should NOT be used for urg ent [...] good. He underwent an SVT ablation at [facility] his last visit, which went well, and he has been doing well since that was done. He is currently on a regimen of Qvar 80 mcg 2 puffs twice daily (changed due to insurance r easZones), and Atrovent 2 puffs 3-4 times daily. [...] He is currently on 2 LPM at [facility]. He reports good compliance. [...] hormonal treatment with Lupron; DR JULIAN IN BLAIRS COPD (chronic obstructive pulmonary disease) (HCC) DR BILLY CASTRO Pneumonia 05/2012 hospitalized [facility] Heart murmur DR MARIAA OLIVERA Cataracts, [...] Laterality: N/A; Surgeon: Jennifer Wilder MD; Location: [facility] ELECTR[facility] Social History: History Social History [...] No other animal exposures. Grew up in [place]. Then lived in [place]. Then moved to [place]. In the service lived [facility] and [place]. No recent travel. Allergies: Allergies [...] PO) Take by mouth. Respiratory Therapy Supplies [facility] Please provide an O2 concentrator [...] at 2L. He will likely travel to [facility] again in July, and we discussed renting a portable concentrator or arranging for oxyge n when he gets to [place]. Plan 1.Continue Flovent and Atrovent. 2.Use Ventolin if needed. 3.Continue to walk. 4. Use oxygen at night at 2L. Rent a portable concentrator or arrange for oxygen in [place] when he arrives. He was advised to call if new pulmonary symptoms were to develop. Return to clinic in 6 months, or sooner with concerns. CC: Parviz Brar Portions of this report were transcribed using voice recognition software. Every effort wa s made to ensure accuracy; however, inadvertent computerized industrial technician errors may be pre sent. documented in [...] | | | | | [place] [address] | | | | | | [phone] | | | | | | | [...]
--- OUTSIDE RECORDS SUMMARY | ~2019-02-24 | XMS | Encounter Summary ---
Demographics + + + | Address | [address] | | | [place] [address] | + + + | Home Phone [...] Organization | [facility] [...] Team Providers + +------+ + | Care Drink Waiter Name | Role | Phone | + [...] | SR | | | | | [phone] | | | +--------+ + + + [...] | | | | | [place] [address] | | | | | | [phone] | | | | | | | | +--------+---------+ + + + documented as of this encounter Visit Diagnoses Not on filedocumented in this encounter
--- OUTSIDE RECORDS SUMMARY | ~2019-02-24 | XMS | Encounter Summary ---
Demographics + + + | Address | [address] | | | [place] [address] | + + + | Home Phone | | + + + | Preferred Language | Unknown | + + + | Marital Status | | + + + | Voodoo Affiliation | 1076 | + + + | Race | Unknown | + + + | Ethnic Group | Unknown | + + + Author + + + | Author | [facility] | | | and [place] | + + + | Organization | [facility] [...] Team Providers + +------+ + | Care Hunting Guide Name | Role | Phone | + [...] 2017 | | GASTROENTEROLOGY | [address] [place] | | | | | [address] [place] | [address] [place], [place] | | | | | [address] [place], [place] | [address] | | | | | [address] | | | | | | [phone] | | | +--------+ + + + [...] | | | | | [place] [address] | | | | | | [phone] | | | | | | | | +--------+---------+ + + + documented as of this encounter Visit Diagnoses Not on filedocumented in this encounter"
--- OUTSIDE RECORDS SUMMARY | ~2019-02-24 | XMS | Encounter Summary ---
Demographics + + + | Address | [address] | | | [place] [address] | + + + | Home Phone [...] | Organization | [facility] | | | and [place] [...] Team Providers + +------+ + | Care Warp Knitter Name | Role | Phone | + [...] + + | 01/26/ | Office | [facility] [place] | [place], | COPD (chronic | | 2012 | Visit | PULMONARY [address] | Becca Segura MD | obstructive | | | | [place], | | pulmonary disease) | | | | [place] [address] | | (HCC) (Primary Dx); | | | | [phone] | | Nocturnal hypoxemia; | | | [...] MD Caterina Noyola [facility] [address] [place], [address] HPI Diego Lucas is a 77 y.o. male patient of Parviz Brar here today for follow up of COPD. At their last visit, we had treated him antibiotics, a course of levofloxacin. We tried to get sputum cultures from his prior admission in [place], but they had not done any. They [...] thinking about joining the gym down in [place]. He has not had hemoptysis. He has been evaluated for nocturnal oxygen and does use it. He is currently on 1.5 LPM at [facility]. He reports good compliance. He does not use it when he goes out of town. Past Medical History Past Medical History Diagnosis Date COPD (chronic obstructive pulmonary disease) Peptic ulcer disease with upper GI bleed Benign prostatic hypertrophy Prostate cancer s/p radiation treatment and on hormonal treatment with Lupron Osteoarthritis Heartburn Pulmonary nodules Cataracts, bilateral Pneumonia 05/2012 hospitalized [facility] Shoulder fracture 02/2012 Foot fracture 02/2012 [...] home. No other animal exposures.Grew up in [place]. Then lived in [place]. Then move d to [place]. In the service lived in [facility] and [place]. No recent travel. Allergies: Allergies Allergen Reactions [...] made to ensure accuracy; however, inadvertent computerized data modeler errors may be pre sent. documented in [...] | | | | | [place] [address] | | | | | | [phone] | | | | | | | [...]
--- OUTSIDE RECORDS SUMMARY | ~2019-02-24 | XMS | Encounter Summary ---
Demographics + + + | Address | [address] | | | [place] [address] | + + + | Home Phone [...] | Organization | [facility] | [...] Providers + +------+ + | Care Senior Energy Trader Name | Role | Phone | + [...] | pulmonary | Becca Segura | [address] | | | | | nodule | [address] [place] | | | | | Procedures | [address] | [place], [place] | | | | | CT Chest wo | [place], | [address] | | | | | Contrast | [place] [address] | Phone: | | | | | | | [phone] | | | | | | | Fax: | | | | | | | [phone] | +--------+--------+ + + + + Encounter Details +--------+ + + + + | Date | Type | Department | Care Team | Description | +--------+ + + + + | 09/06/ | Hospital | [facility] | Offenstein, | Solitary pulmonary | | 2012 | Encounter | MED CTR XRAY [address] | Becca Segura MD | nodule | | | | [place] | | | | | | [place] [address] | | | | | | [phone] | | | +--------+ + + + [...] patient per request of Dr. Castro. To telephone operator receptionist to schedule appt and follow up [...] | | | | | | [place] [address] | | | | | | [phone] | | | | | | | [...] + | [facility] | [place] | | Department [address] [place] [address] | [facility] | | [ rep ct [address]] [ rep ct [facility] | | st zip] Signed | - IMAGING | | | | | Patient Name: DIEGO LUCAS Physician: | | | MAGDA. : 1935 Age: 76 Sex: M Unit #: [id number] | | | Exam Date: 09/06/12 Location: [facility] | | | Report #: [id number] Page: | | | %(RAD)RES..mtdd.print.filter("pg") of %(RAD) | | | RES..mtdd.print.filter("tpg") | | | | | | Accession Number: [id number] | | | CT CHEST WITHOUT CONTRAST [...] Transcribed | | | Date/Time: 09/06/2012 16:10 Mud Mixer Helper: ALEXSANDRA | | | <<Signature on File>> | | | | | | Gurdeep Diaz MD09/07/12 0729 <Electronically signed by | | | Gurdeep Diaz MD> Gurdeep Diaz MD 09/06/12 | | | 1347 Mud Mixer Helper: 24tidy Jbdmqcefzgash15/16/13 1610 | | | Becca Castro MD | | + + + + + + + + | Performing | Address | City/State/Zipcode | Phone Number | | Organization | | | | + + + + + | [facility] [facility] | [address] | [place] | [phone] | | [facility] | | [address] | | | - IMAGING | | | | + + + + + documented in this encounter Visit Diagnoses + + | Diagnosis | + + | Solitary pulmonary nodule | + + documented in this encounter
--- OUTSIDE RECORDS SUMMARY | ~2019-02-24 | XMS | Encounter Summary ---
Demographics + + + | Address | [address] | | | [place] [address] | + + + | Home Phone [...] Organization | [facility] [...] Providers + +------+ + | Care Electric Power Line Examiner Name | Role | Phone | [...] [address] | | | | | [place], [place] | [facility] | | | | | [address] | [place] [address] | | | | | [phone] | [phone] | | | | | | | [...] | | | | | [place] [address] | | | | | | [phone] | | | | | | | | +--------+---------+ + + + documented as of this encounter Visit Diagnoses Not on filedocumented in this encounter"
--- OUTSIDE RECORDS SUMMARY | ~2019-02-24 | XMS | Encounter Summary ---
Demographics + + + | Address | [address] | | | [place] [address] | + + + | Home Phone [...] + | Organization | [facility] | | | and [place] | [...] Providers + +------+ + | Care Assistant Unit Forester Name | Role | Phone | + +------+ + PCP | Unavailable | + +------+ + Encounter Details +--------+ + + + + | Date | Type | Department | Care Team | Description | +--------+ + + + + | 03/31/ | Hospital | [facility] | | | | 1994 | Encounter | MED CTR LABORATORY | | | | | | [address] [place] | | | | | | [place] | | | | | | [address] | | | | | | [phone] | | | +--------+ + + + [...] | | | | | | [place] [address] | | | | | | [phone] | | | | | | | | +--------+---------+ + + + documented as of this encounter Visit Diagnoses Not on filedocumented in this encounter"
--- OUTSIDE RECORDS SUMMARY | ~2019-02-24 | XMS | Encounter Summary ---
Demographics + + + | Address | [address] | | | [place] [address] | + + + | Home Phone [...] | [facility] | [...] Providers + +------+ + | Care Mold Maintenance Technician Name | Role | Phone | [...] MD | Qvar) | | | | [place], | | | | | | [place] [address] | | | | | | [phone] | | | +--------+ + + + [...] | | | | | [place] [address] | | | | | | [phone] | | | | | | | | +--------+---------+ + + + documented as of this encounter Visit Diagnoses Not on filedocumented in this encounter"
--- OUTSIDE RECORDS SUMMARY | ~2019-02-24 | XMS | Encounter Summary ---
Demographics + + + | Address | [address] | | | [place] [address] | + + + | Home Phone | | + + + | Preferred Language | Unknown | + + + | Marital Status | | + + + | Zoroastrianism Affiliation | 1076 | + + + | Race | Unknown | + + + | Ethnic Group | Unknown | + + + Author + + + | Author | [facility] | | | and [place] | + + + | Organization | [facility] | | | and [...] Team Providers + +------+ + | Care Barber Stylist Name | Role | Phone | + [...] + + | 11/29/ | Office | [facility] | Jorje Rutledge | Prostate cancer | | 2018 | Visit | [address] | [address] | ([facility]) (Primary Dx); | | | | [place] | [facility] | Preventative health | | | | [address] | [place] [address] | care | | | | [phone] | [phone] | | | | | | | [...] fracture; COPD (chronic obstructive pulmonary dis ease) ([facility]); Depression; Dermatophytosis tinea capitis; Diverticulosis (01/2015); Essential hypertension; Foot fracture (02/2012); Gastritis (01/2015); GI bleed (01/2015); Heart murmur; Heartburn; Hiatal hernia (01/2015); History of rectal bleeding; Hypoxia; Insomnia; Iron def iciency anemia; Kidney stone (2004); Lumbar disc herniation; Migraines; Mood disorder ([facility]) of unknown (axis III) etiology; Nocturnal hypoxia; Osteoarthritis; Peptic ulcer disease; Pne umonia (05/2012); Prostate cancer ([facility]) (2007); Pulmonary nodules; Seborrheic dermatitis of s calp; Shoulder fracture (02/2012); Supplemental oxygen dependent; SVT (supraventricular tachy cardia) ([facility]) (01/2014); TIA (transient ischemic attack); [...] g by mouth Daily. Respiratory Therapy Supplies [facility] Please provide an O2 [...] This document was generated in part using [employer] voice recognition software. Although ever y effort is made to edit the content, artist scientific errors may occur. Occasional wrong word or [...] | | | | | | [place] [address] | | | | | | [phone] | | | | | | | [...] Routine general medical examination at [facility] | | facility | + + documented [...]
--- OUTSIDE RECORDS SUMMARY | ~2019-02-24 | XMS | Encounter Summary ---
Demographics + + + | Address | [address] | | | [place] [address] | + + + | Home Phone | | + + + | Preferred Language | Unknown | + + + | Marital Status | | + + + | Zoroastrianism Affiliation | 1076 | + + + | Race | Unknown | + + + | Ethnic Group | Unknown | + + + Author + + + | Author | [facility] | | | and [place] | + + + | Organization | [facility] | | | [...] Team Providers + +------+ + | Care Aerotriangulation Specialist Name | Role | Phone | [...] Specialty | Urology | Diagnoses | | Aamir, | | | Services | | Prostate | Odetteenstein, | Gene Tim, | | | Required | | cancer (HCC) | Becca Segura, | MD [address] | | | | | | MD [address] | | | | | | [address] | [place], | | | | | | [place], | [place] [address] | | | | | | [place] [address] | Phone: | | | | | | | [phone] | | | | | | | Fax: | | | | | | | [phone] | +--------+ + + + + + Encounter Details +--------+---------+ + + + | Date | Type | Department | Care Team | Description | +--------+---------+ + + + | 06/29/ | Office | [facility] | Jorje Rutledge | Prostate cancer | | 2017 | Visit | [address] | MD Tim [address] | ([facility]) (Primary Dx) | | | | [place], [place] | [address] [place] | | | | | [address] | [place] [address] | | | | | [phone] | [phone] | | | | | | | [...] + + + | Blood Pressure | 150/71 | 06/29/2016 9:39 AM | | | | | PDT | | + + + + + | Pulse | 89 | 06/29/2016 9:39 AM | | | | | PDT [...] | 79.1 kg (174 lb 6.4 | 06/29/2016 9:39 AM | | | | oz) | PDT | | + + + + + | Height | 177.8 cm (5' 10") | 06/29/2016 9:39 AM | | | | | PDT | | + + + + + | Body Mass Index | 25.02 | 06/29/2016 9:39 AM | | | | | PDT | | + + + + + documented in this encounter Progress Notes Jorje Rutledge MD - 06/29/2016 9:47 AM PDTFormatting of this note might be differen t from the original. Diego is a 80 y.o. male patient of Parviz Brar being seen today for prostate cancer. He is coming for 6 month evaluation after a Lupron shot which was given on December 31, 2015 . 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 PSA at that time was 13.9. He was treated with radiation therapy by Dr. Garza, with post radiation adjuvant Lupron adm inistration for approximately 1-1/2 years. His PSA soy was 0.01. He had PSA recurrence with a slow doubling time, , and in July 2013 his PSA was up to 5.38, and he was started on anti-antigen therapy. He has done well symptomatically, with his onl y problem being that of hot flashes. He is on intermittent hormone therapy, and wishes to h ave the summer off, if possible. He tried Megace for hot flashes, with minimal changes. He is taking vitamin D 3, and calcium, for bone health. He has recently been having problems with anemia, requiring blood transfusions. Past Medical History He has a past medical history of Peptic ulcer disease; Benign prostatic hypertrophy; Osteoa rthritis; Heartburn; Pulmonary nodules; Shoulder fracture (02/2012); Foot fracture (02/2012); SVT (supraventricular tachycardia) ([facility]) (01/2014); Depression; Prostate cancer ([facility]) (2007) ; COPD (chronic obstructive pulmonary disease) ([facility]); Pneumonia (05/2012); Heart murmur; Rima racts, bilateral; Kidney stone (2004); Hypertension; TIA (transient ischemic attack); Migrai gaston; Supplemental oxygen dependent; C. difficile enteritis (2012); Lumbar disc herniation; G I bleed (01/2015); Diverticulosis (01/2015); Hiatal hernia (01/2015); Gastritis (01/2015); a nd Anemia. Past Surgical History He has past surgical [...] Tape Hives and Rash Paper tapes- BLISTERS Medications: Outpatient Encounter Prescriptions as of 06/29/2016 Medication Sig Dispense Refill acetaminophen (TYLENOL) 325 [...] TABS Take 1 tablet by mouth Daily. [DISCONTINUED] cholecalciferol (VITAMIN D-3) 1,000 units capsule Take 1,000 Units by mo uth nightly. [facility] LUTEIN PO Take by mouth. ferrous sulfate 325 mg tablet Take 325 mg by mouth 2 times daily (with breakfast & dinn er). Take one tablet daily 4 fluticasone-vilanterol (BREO [...] Inhaler 2 ketoconazole (NIZORAL) 2% shampoo 1 [DISCONTINUED] omeprazole (PRILOSEC OTC) 20 mg tablet Take 20 mg by mouth Daily. oxygen Inhale 2 L into the lungs nightly. pantoprazole (PROTONIX) 40 mg tablet Take 1 tablet by mouth Daily. 0 Polyethylene Glycol 3350 (MIRALAX PO) Take by mouth. Respiratory Therapy Supplies [facility] [...] facility-administered encounter medications on file as of 06/29/2016. AUA BPH SYMPTOM SCORE Not at all [...] Mild 1-7, Moderate 8-19, Severe 20-35 TOTAL: 17 BOTHER SCORE DUE TO URINARY SYMPTOMS Delighted [...] 5 [] 6 PHYSICAL EXAM Vitals: BP 150/71 mmHg | Pulse 89 | Ht 1.778 m (5' 10") | Wt 79.107 kg (174 lb 6.4 oz) | BM I 25.02 kg/m2 General: Awake, alert, in no acute distress. Speech is fluent. Appears to be stated age. Lungs: Normal respiratory effort. Abdomen: Soft, nontender. Extremities: Non-edematous. Neuro: Awake, alert, oriented. Psychiatric: Mood and affect are normal. Skin: Warm and dry, no erythematous rash.. Genitalia: No lesion. Normal in appearance. Rectal: No mass, normal sphincter tone. Prostate gland is palpably benign. Prostate gland is enlarged. Prostate gland volume is estimated at <10 gm. Lateral sulci are intact. DIAGNOSTIC DATA: Urinalysis is negative for blood, nitrites, and leukocyte esterase PSA 06/26/16 0.140 12/28/15 0.247 06/28/160.217 2163.39 01/04/20155.65 154.57 11/20130.128 07/20135.38 10/20122.5 08/20110.0172 04/20111.32 06/200713.9 IMPRESSION: Stage T2c to T3 Gabino 4+3 = 7 adenocarcinoma the prostate, status post radia tion in 2007 with post radiation adjuvant ADT 1.5 years Post radiation PSA recurrence with inte rmittent hormone ablation since 2013, last Lupron was given in December 2015 PLAN: Diego appears to be doing well in regards to his prostate cancer. His PSA is quite low , and on physical exam there is minimal amount of tissue present. He has requested to refra in from androgen deprivation therapy for this summer. I suggested having a repeat PSA in ab out 4 months, and a revisit. We can follow his PSA and testosterone levels for the time humera ng. I have asked him to call if he develops any further difficulties with his urination. Diego is instructed to resume his usual [...] have not thoroughly proofread this note, and mining teacher erro rs may occur. documented in th [...] | | | | | [place] [id number] | | | | | | [phone] | | | | | | | | +--------+---------+ + + + + +------+--------+ + + | Name | Type | Priori | Associated Diagnoses | Order Schedule | | | | ty | | | + +------+--------+ + + | PSA, Diagnostic | Lab | Routin | Prostate cancer | Expected: 10/23/2016 | | | | e | (HCC) | (Approximate), | | | | | | Expires: 06/29/2017 | + +------+--------+ + + | Testosterone, Total | Lab | Routin | Prostate cancer | Expected: 10/23/2016 | | | | e | (HCC) | (Approximate), | | | | | | Expires: 06/29/2017 | + +------+--------+ + + | Basic Metabolic | Lab | Routin | Prostate cancer | Expected: 10/23/2016 | | Panel | | e | (HCC) | (Approximate), | | | | | | Expires: 06/29/2017 | + +------+--------+ + + documented as of this encounter Procedures + +--------+ + + + | Procedure Name | Priori | Date/Time | Associated Diagnosis | Comments | | | ty | | | | + +--------+ + + + | POCT URINALYSIS, | Routin | 06/29/2016 | Prostate cancer | Results for this | | AUTO WITH CONF | e | 9:42 AM | (HCC) | procedure are in the | | | | PDT | | results section. | + +--------+ + + + | LABS - EXTERNAL SCAN | | 06/26/2016 | | Results for this | | | | 12:00 AM | | procedure are in the | | | | PDT | | results section. | + +--------+ + + + documented in this encounter Results POCT Urinalysis Dipstick Automated (06/29/2016 9:42 AM PDT) + + + + + [...] 1.001 - 1.030 | | | | [place], | | | | | | UA, POC | | | | | + + + + + + | Blood, UA, | Negative | Negative | | | | POC | | | | | + + + + + + | pH, UA, POC | 5.5 | 5.0, 6.0, 7.0, | | | [...] specimen | | (specimen) | + + LABS - EXTERNAL SCAN (06/26/2016 12:00 AM PDT) + + + | [...]
--- OUTSIDE RECORDS SUMMARY | ~2019-02-24 | XMS | Encounter Summary ---
Demographics + + + | Address | [address] | | | [place] [address] | + + + | Home Phone [...] | Organization | [facility] | | | and [place] [...] Team Providers + +------+ + | Care Principal Automation Engineer Name | Role | Phone | [...] [address] | | | | | [place], [place] | [address] | | | | | [address] | [place] [address] | | | | | [phone] | [phone] | | | | | | | [...] | | | | | [place] [address] | | | | | | [phone] | | | | | | | [...] + | REFERENCE LAB | [address] | [place] [address] | [phone] | | [facility] | | | | + + + + + | REFERENCE LAB | [address] | [place] [address] | [phone] | | [facility] | | | | [...] + + | REFERENCE LAB | [address] | [place] [address] | [phone] | | [facility] | | | | + + + + + | REFERENCE LAB | [address] | [place] [address] | [phone] | | [facility] | | | | [...] + | REFERENCE LAB | [address] | [place] [address] | [phone] | | [facility] | | | | + + + + + | REFERENCE LAB | [address] | [place] [address] | [phone] | | [facility] | | | | [...] + + | REFERENCE LAB | [address] [facility] | [place] [address] | [phone] | | [facility] | | | | + + + + + | REFERENCE LAB | [address] | [place] [address] | [phone] | | [facility] | | | | [...] | [address] | [place] [address] | [phone] | | [facility] | | | | + + + + + | REFERENCE LAB | [address] [facility] [address] [facility] | [place] [address] | [phone] | | [facility] | | | | [...] + | REFERENCE LAB | [address] | [place] [address] | [phone] | | [facility] | | | | + + + + + | REFERENCE LAB | [address] | [place] [address] | [phone] | | [facility] | | | | + + + + + documented in this encounter Visit Diagnoses Not on filedocumented in this encounter"
--- OUTSIDE RECORDS SUMMARY | ~2019-02-24 | XMS | Encounter Summary ---
Demographics + + + | Address | [address] | | | [place] [address] | + + + | Home Phone | | + + + | Preferred Language | Unknown | + + + | Marital Status | | + + + | Episcopalian Affiliation | 1076 | + + + | Race | Unknown | + + + | Ethnic Group | Unknown | + + + Author + + + | Author | [facility] | | | and [place] | + + + | Organization | [facility] [...] Team Providers + +------+ + | Care County Library Director Name | Role | Phone | [...] | SR | | | | | [phone] | | | +--------+ + + + [...] | | | | | [place] [address] | | | | | | [phone] | | | | | | | | +--------+---------+ + + + documented as of this encounter Visit Diagnoses Not on filedocumented in this encounter
--- OUTSIDE RECORDS SUMMARY | ~2019-02-24 | XMS | Encounter Summary ---
Demographics + + + | Address | [address] | | | [place] [address] | + + + | Home Phone [...] + + | Author | [facility] | + + + | Organization | [facility] | + + + | Address | Unknown | + + + | Phone | Unavailable | + + + Support + + +---------+ + | Name | Relationship | Address | Phone | + + +---------+ + | Andrez Lucas | ECON | Unknown | Unavailable | + + +---------+ + Care Team Providers + +------+ + | Care Banquet Chef Name | Role | Phone | + [...] + + | 06/06/ | Emergency | [facility] Emergency | Macy Evans, | | | 2012 | | Department [address] | [address] | | | | | [facility] | [place], [place] | | | | | [facility] | [address] | | | | | [place], [place] | | | | | | [address] | | | | | | [phone] | | | +--------+ + + + [...] Horn - 06/06/2012Thank you for visiting the [facility] long and for your patience. I am glad we could get the bleeding to stop. In the morning call your primary care doctor to ask about the humidified oxygen. Use [place] twice a day in both nostrils to keep the lining moist. Check in with your PCP in about 1 week to make sure you are doing well. If you have any problems you can call the Ear Nose and Throat doctors/Otolaryngology (Head & Neck Surgery): [phone]. Afrin as needed: if a new episode [...] [facility] | [address] | [place] [address] | | | NAYELI, | ELIECER SALGUERO [...] | + + + + + | [facility] | [address] | [place] [address] | | | RAFAEL TYLER | ELIECER [...] [facility] | [address] | [place] [address] | | | RAFAEL TYLER | ELIECER [...] | + + + + + | [facility] | [address] | [place] [address] | | | SERVICES, RAFAEL | ELIECER [...] [facility] | [address] | [place] [address] | | | SERVICES, | [address] [...] | + + + + + | [facility] | [address] | [place] [address] | | | SERVICES, | [address] [...] | + + + + + | [facility] | [address] | [place] [address] | | | SERVICES, CORE | [address] | | | + + + + + documented in this encounter Visit Diagnoses + + | Diagnosis | + + | Epistaxis - Primary | + + documented in this encounter"
--- OUTSIDE RECORDS SUMMARY | ~2019-02-24 | XMS | Encounter Summary ---
Demographics + + + | Address | [address] | | | [place] [address] | + + + | Home Phone | | + + + | Preferred Language | Unknown | + + + | Marital Status | | + + + | Tenriism Affiliation | 1076 | + + + | Race | Unknown | + + + | Ethnic Group | Unknown | + + + Author + + + | Author | [facility] | | | and [place] | + + + | Organization | [facility] | | [...] Providers + +------+ + | Care Manager Sterile Name | Role | Phone | + +------+ + PCP | Unavailable | + +------+ + Encounter Details +--------+ + + + + | Date | Type | Department | Care Team | Description | +--------+ + + + + | 03/31/ | Hospital | [facility] | | | | 1994 | Encounter | MED CTR LABORATORY | | | | | | [address] | | | | | | [place] | | | | | | [address] | | | | | | [phone] | | | +--------+ + + + [...] | | | | | | [place] [address] | | | | | | [phone] | | | | | | | | +--------+---------+ + + + documented as of this encounter Visit Diagnoses Not on filedocumented in this encounter"
--- OUTSIDE RECORDS SUMMARY | ~2019-02-24 | XMS | Encounter Summary ---
Demographics + + + | Address | [address] | | | [place] [address] | + + + | Home Phone [...] + | Organization | [facility] | [...] Team Providers + +------+ + | Care Commercial Escrow Officer Name | Role | Phone | + +------+ + PCP | Unavailable | + +------+ + Encounter Details +--------+ + + + + | Date | Type | Department | Care Team | Description | +--------+ + + + + | 01/05/ | Hospital | [facility] | | | | 1999 | Encounter | MED CTR XRAY [address] | | | | | [address] | | | | | | [place] [address] | | | | | | [phone] | | | +--------+ + + + [...] | | | | | [place] [address] | | | | | | [phone] | | | | | | | | +--------+---------+ + + + documented as of this encounter Visit Diagnoses Not on filedocumented in this encounter"
--- OUTSIDE RECORDS SUMMARY | ~2019-02-24 | XMS | Encounter Summary ---
Demographics + + + | Address | [address] | | | [place] [address] | + + + | Home Phone [...] | [facility] | | [...] Team Providers + +------+ + | Care Boiling Off Winder Name | Role | Phone | + +------+ + | Parviz Brar DO | PCP | | + +------+ + Encounter Details +--------+ + + + + | Date | Type | Department | Care Team | Description | +--------+ + + + + | 06/16/ | Hospital | [facility] | Conversion | Pain | | 2017 | Encounter | [address]VERSION [address] | Transaction, | | | | | [address] | Provider Unknown | | | | | [place], [place] | [phone] | | | | | [address] | | | | | | [phone] | | | +--------+ + + + [...] | | | | | [place] [address] | | | | | | [phone] | | | | | | | [...]
--- OUTSIDE RECORDS SUMMARY | ~2019-02-24 | XMS | Encounter Summary ---
Demographics + + + | Address | [address] | | | [place] [address] | + + + | Home Phone [...] | Organization | [facility] | | | and [...] Providers + +------+ + | Care Content Strategy Lead Name | Role | Phone | + +------+ + | Parviz Brar DO | PCP | | + +------+ + Encounter Details +--------+ + + + + | Date | Type | Department | Care Team | Description | +--------+ + + + + | 06/16/ | Hospital | [facility] | Conversion | Pain | | 2017 | Encounter | CONVERSION [address] | Transaction, | | | | | [address] | Provider Unknown | | | | | [place], [place] | [phone] | | | | | [address] | | | | | | [phone] | | | +--------+ + + + [...] | | | | | [place] [address] | | | | | | [phone] | | | | | | | [...]
--- OUTSIDE RECORDS SUMMARY | ~2019-02-24 | XMS | Encounter Summary ---
Demographics + + + | Address | [address] | | | [place] [address] | + + + | Home Phone [...] [facility] | | | and [place] [...] Team Providers + +------+ + | Care Staff Mechanical Engineer Name | Role | Phone | [...] + + | 05/04/ | Telephone | [facility] | Marc Odell | Results, Imaging | | 2018 | | GASTROENTEROLOGY | MD [address] | | | | | [address] [facility] | [facility] | | | | | [address] [place] | [place] [address] | | | | | [address] | [phone] | | | | | [phone] | | | +--------+ + + + [...] | | | | | [place] [address] | | | | | | [phone] | | | | | | | | +--------+---------+ + + + documented as of this encounter Visit Diagnoses Not on filedocumented in this encounter"
--- OUTSIDE RECORDS SUMMARY | ~2019-02-24 | XMS | Encounter Summary ---
Demographics + + + | Address | [address] | | | [place] [address] | + + + | Home Phone [...] | [facility] | | [...] Team Providers + +------+ + | Care Bill Distributor Name | Role | Phone | + [...] [address] | | | | | [place], [place] | [address] [facility] | | | | | [address] | [place] [address] | | | | | [phone] | [phone] | | | | | | | [...] | | | | | [place] [address] | | | | | | [phone] | | | | | | | | +--------+---------+ + + + documented as of this encounter Visit Diagnoses Not on filedocumented in this encounter"
--- OUTSIDE RECORDS SUMMARY | ~2019-02-24 | XMS | Encounter Summary ---
Demographics + + + | Address | [address] | | | [place] [address] | + + + | Home Phone [...] Author | [facility] | | | and [place] | + + + | Organization | [facility] | [...] Providers + +------+ + | Care Dental Tech Name | Role | Phone | [...] | | | | | | [place] [address] | | | | | | [phone] | | | +--------+--------+ + + + [...] | | | | | [place] [address] | | | | | | [phone] | | | | | | | | +--------+---------+ + + + documented as of this encounter Visit Diagnoses Not on filedocumented in this encounter"
--- OUTSIDE RECORDS SUMMARY | ~2019-02-24 | XMS | Encounter Summary ---
Demographics + + + | Address | [address] | | | [place] [address] | + + + | Home Phone [...] Organization | [facility] | | | and [...] Providers + +------+ + | Care Assistant Program Manager Name | Role | Phone | + +------+ + PCP | Unavailable | + +------+ + Reason for Visit + + + | Reason | Comments | + + + | Appointment | | + + + Encounter Details +--------+ + + + + | Date | Type | Department | Care Team | Description | +--------+ + + + + | 03/24/ | Telephone | [facility] [place] | Matthew, | Appointment | | 2012 | | PULMONARY [address] | Becca Segura MD | | | | | [place], | | | | | | [place] [address] | | | | | | [phone] | | | +--------+ + + + [...] [address] | | | | | | [address] | | | | | | [place] [address] | | | | | | [phone] | | | | | | | | +--------+---------+ + + + documented as of this encounter Visit Diagnoses Not on filedocumented in this encounter"
--- OUTSIDE RECORDS SUMMARY | ~2019-02-24 | XMS | Encounter Summary ---
Demographics + + + | Address | [address] | | | [place] [address] | + + + | Home Phone [...] | Organization | [facility] | | [...] Providers + +------+ + | Care Assistant Warehouse Manager Name | Role | Phone | [...] RN | obstructive | | | | [place], | | pulmonary disease) | | | | [place] [address] | | ([facility]) | | | | [phone] | | | +--------+ + + + [...] | | | | | [place] [address] | | | | | | [phone] | | | | | | | | +--------+---------+ + + + documented as of this encounter Visit Diagnoses + + | Diagnosis | + + | COPD (chronic obstructive pulmonary disease) (HCC) Chronic airway obstruction, not | | elsewhere classified | + + documented in this encounter"
--- OUTSIDE RECORDS SUMMARY | ~2019-02-24 | XMS | Encounter Summary ---
Demographics + + + | Address | [address] | | | [place] [address] | + + + | Home Phone | | + + + | Preferred Language | Unknown | + + + | Marital Status | | + + + | Gnosticism Affiliation | 1076 | + + + | Race | Unknown | + + + | Ethnic Group | Unknown | + + + Author + + + | Author | [facility] | | | and [place] | + + + | Organization | [facility] | [...] Team Providers + +------+ + | Care Ring Sewer Name | Role | Phone | + +------+ + PCP | Unavailable | + +------+ + Encounter Details +--------+ + + + + | Date | Type | Department | Care Team | Description | +--------+ + + + + | 09/22/ | Hospital | [facility] | | | | 2007 - | Encounter | MED CTR CANCER | | | | | | CENTER [address] | | | | 10/22/ | | [place] | | | | 2007 | | [address] | | | | | | [phone] | | | +--------+ + + + [...] | | | | | [place] [address] | | | | | | [phone] | | | | | | | | +--------+---------+ + + + documented as of this encounter Visit Diagnoses Not on filedocumented in this encounter"
--- OUTSIDE RECORDS SUMMARY | ~2019-02-24 | XMS | Encounter Summary ---
Demographics + + + | Address | [address] | | | [place] [address] | + + + | Home Phone | | + + + | Preferred Language | Unknown | + + + | Marital Status | | + + + | Episcopal Affiliation | PRE | + + + | Race | White | + + + | Ethnic Group | Not or | + + + Author + + + | Author | [facility] | + + + | Organization | [facility] | + + + | Address | Unknown | + + + | Phone | Unavailable | + + + Support + + +---------+ + | Name | Relationship | Address | Phone | + + +---------+ + | Andrez Lucas | ECON | Unknown | Unavailable | + + +---------+ + Care Team Providers + +------+ + | Care Stress Engineer Name | Role | Phone | [...] | | | [address] | [facility] [address] | | | | | | [address] | [place] | | | | | | Nikita [facility] | [place], [place] | | | | | | [facility] | [address] | | | | | | [place], [place] | Phone: | | | | | | [address] | [phone] | | | | | | Phone: | Fax: | | | | | | [phone] | [phone] | +--------+--------+ + + + + Encounter Details +--------+---------+ + + + | Date | Type | Department | Care Team | Description | +--------+---------+ + + + | 07/04/ | Office | Otolaryngology | Desiree Easton, | Epistaxis (Primary | | 2012 | Visit | Laryngology Services | MD | Dx) | | | | at [facility] [address] | | | | | | [place], | | | | | | [place] [address] | | | | | | [phone] | | | +--------+---------+ + + + [...] 07/04/2012 9:54 AM PDTThank you for choosing [facility] Department of Otolaryngology for your health care needs. If you need to speak to an ENT physician after normal business hours, please call [phone] and ask to have the ENT phys davey operations expert paged. documented in this encounter Progress Notes Desiree Easton MD - 07/04/2012 10:08 AM PDTFormatting of this note might be different fr the original. PATIENT NAME: Diego Lucas [facility] MR#: [id number] : 1935 REFERRING PROVIDER: No Referring Provider Per Patient NO REFERRING PROVIDER PER PT PRIMARY CARE PROVIDER: Parviz Brar DO CLINIC: [facility] REASON FOR FOLLOW-UP: Chief Complaint Patient presents with Follow-up visit Nose bleed HPI: Diego Lucas is a 76 y.o. male who presents to the [facility] a nd Swallowing with [...] post-operative visit. He has been using his [place] Spr ay as directed. He has had no further issues with bleeding. He was about to be [facility], but was held for some additional cardiac testing. He [facility] [place] [facility]. PMHx: Past Medical History Diagnosis Date [...] severe pain. oxymetazoline 0.05 % Nasal Aerosol, Abernathy Instill 2 Sprays into each nostril every six hours as needed (Epistaxis). Use for only 3 days. polyethylene glycol 17 gram/dose Oral Powder Take 17 g by mouth once daily. sodium chloride 0.65 % Nasal Aerosol, Abernathy Instill 2 Sprays in nose every two [...] have recommended that he continue to use Gogebic Abernathy 2-3 times daily. He may resume his usual physical activities at this time. 2. Follow up as needed. DESIREE EASTON MD documented in this e ncounter Plan of Treatment Not on filedocumented as of this encounter Visit Diagnoses + + | Diagnosis | + + | Epistaxis - Primary | + + documented in this encounter"
--- OUTSIDE RECORDS SUMMARY | ~2019-02-24 | XMS | Encounter Summary ---
Demographics + + + | Address | [address] | | | [place] [address] | + + + | Home Phone [...] Organization | [facility] | | [...] Team Providers + +------+ + | Care Escrow Representative Name | Role | Phone | + +------+ + PCP | Unavailable | + +------+ + Encounter Details +--------+ + + + + | Date | Type | Department | Care Team | Description | +--------+ + + + + | 04/24/ | Hospital | [facility] | [place], | | | 2011 | Encounter | MED CTR XRAY [address] | Becca Segura MD | | | | | [address] | | | | | | [place] [address] | | | | | | [phone] | | | +--------+ + + + [...] | | | | | [place] [address] | | | | | | [phone] | | | | | | | [...] Performed At | + + + | [facility] Diagnostic Imaging Department | [facility] | | [address] [facility] | [facility] | | CHEST CT WITHOUT IV CONTRAST | [facility] | | 06/16/2011 CLINICAL HISTORY: [...] Transcribed Date/Time: | | | 06/17/2011 14:38 Video Production Assistant: <Electronically Signed | | | by Krzysztof Jewell MD> 06/18/11 0757 | | + + + + + | Procedure Note | + + | [place], Rad Conversion - 03/31/2013 5:11 PM [facility] | | Diagnostic Imaging Department [address] [place] [address] | | CHEST CT WITHOUT IV CONTRAST [...] 14:31 | |Transcribed Date/Time: 06/17/2011 14:38 | |Video Production Assistant: | |<Electronically Signed by Krzysztof Jewell MD> 06/18/11 0757 | + + + +---------+ + + | Performing | Address | City/State/[facility] | Phone Number | | Organization | | | | + +---------+ + + | [place] | | | | | [place] | | | | + +---------+ + + documented in this encounter Visit Diagnoses Not on filedocumented in this encounter"
--- OUTSIDE RECORDS SUMMARY | ~2019-02-24 | XMS | Encounter Summary ---
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 If you go to [place], make sure you take the oxygen like before. June 11, 2014 Diego Lucas [address] [place] [address] Dear Diego: Thank you for enrolling in [email or web address]. Please follow the instructions below to view your [employer] online medical record. [email or web address] allows you to send secure messages to your doctor, view you r test results, renew your prescriptions, schedule appointments, and more. How Do I Sign Up? 1. In your Internet browser, go to [email or web address] 2. Click on the "Sign up with your activation code" button in the "New User?" box. This iza l take you to the New Member Sign Up page. 3. Enter your [email or web address] activation code exactly as it appears below. You will not need to use this code after you sign up. If you do not sign up before the expiration date, you must req uest a new code through your [employer] or [facility] participating clinic. [email or web address] Activation Code: [email or web address] Expires: 08/10/2014 14:54 4. Fill in the last four digits of your Social Security Number (xxxx) and Date of (mm /dd/yyyy) and click Next. 5. Create a [email or web address] username. Your username cannot be changed, so think of one t hat is secure and easy to remember. 6. Create a [email or web address] password. You can change your password at any time. 7. Enter your security question and answer. This can be used at a later time if you forget your password. Click Next. 8. Enter your e-mail address. You will receive e-mail notification when new information is available in [email or web address]. 9. Click "Sign In". You may now view your medical record. Additional Information If you have questions, you can email or call [phone] to talk to our MyChart care team. [...] good. He underwent an SVT ablation at [facility] ce his last visit, which went well, and he has been doing well since that was done. He is currently on a regimen of Qvar 80 mcg 2 puffs twice daily (changed due to insurance r [email or web address]), and Atrovent 2 puffs 3-4 times daily. [...] He is currently on 2 LPM at [facility]. He reports good compliance. He does [...] hormonal treatment with Lupron; DR JULIAN IN [place] COPD (chronic obstructive pulmonary disease) (HCC) DR BILLY CASTRO Pneumonia 05/2012 hospitalized [facility] Heart murmur DR MARIAA OLIVERA Cataracts, [...] Laterality: N/A; Surgeon: Jennifer Wilder MD; Location: [facility] ELECTROPHYSIOLOGY Social History: History Social History Marital [...] No other animal exposures. Grew up in [place]. Then lived in [place]. Then moved to [place]. In the service lived [facility] and [place]. No recent travel. Allergies: Allergies Allergen Reactions [...] Take by mouth. Respiratory Therapy Supplies [facility] Please provide an O2 concentrator while Diego [...] at 2L. He will likely travel to [facility] again in July, and we discussed renting a portable concentrator or arranging for oxyge n when he gets to [place]. Plan 1.Continue Flovent and Atrovent. 2.Use Ventolin if needed. 3.Continue to walk. 4. Use oxygen at night at 2L. Rent a portable concentrator or arrange for oxygen in [place] when he arrives. He was advised to call if new pulmonary symptoms were to develop. Return to clinic in 6 months, or sooner with concerns. CC: Parviz Brar Portions of this report were transcribed using voice recognition software. Every effort wa s made to ensure accuracy; however, inadvertent computerized nozzleman errors may be pre sent. documented in [...] | | | | | [place] [address] | | | | | | [phone] | | | | | | | [...]
--- OUTSIDE RECORDS SUMMARY | ~2019-02-24 | XMS | Encounter Summary ---
Demographics + + + | Address | [address] | | | [place] [address] | + + + | Home Phone [...] Organization | [facility] [...] Providers + +------+ + | Care Process Improvement Manager Name | Role | Phone | + +------+ + PCP | Unavailable | + +------+ + Encounter Details +--------+ + + + + | Date | Type | Department | Care Team | Description | +--------+ + + + + | 08/22/ | Hospital | [facility] | | | | 2007 - | Encounter | MED CTR CANCER | | | | | | CENTER [address] | | | | 09/21/ | | [place] | | | | 2007 | | [address] | | | | | | [phone] | | | +--------+ + + + [...] | | | | | [place] [address] | | | | | | [phone] | | | | | | | | +--------+---------+ + + + documented as of this encounter Visit Diagnoses Not on filedocumented in this encounter"
--- OUTSIDE RECORDS SUMMARY | ~2019-02-24 | XMS | Encounter Summary ---
Demographics + + + | Address | [address] | | | [place] [address] | + + + | Home Phone | | + + + | Preferred Language | Unknown | + + + | Marital Status | | + + + | Gnosticist Affiliation | [id number] | + + + | Race | Unknown | + + + | Ethnic Group | Unknown | + + + Author + + + | Author | [facility] | | | and [place] | + + + | Organization | [facility] | [...] Team Providers + +------+ + | Care Shell Worker Name | Role | Phone | [...] Description | +--------+---------+ + + + | 05/30/ | Office | [facility] | Jorje Rutledge | Prostate cancer | | 2019 | Visit | [address] | [address] | (HCC) (Primary Dx) | | | | [place] | [address] [facility] | | | | | [address] | [place] [address] | | | | | [phone] | [phone] | | | | | | | [...] + + + | Blood Pressure | 130/70 | 05/30/2018 9:30 AM | | | | | PDT | | + + + + + | Pulse | 68 | 05/30/2018 9:30 AM | | | | | PDT | | + + + + + | Temperature | - | - | | + + + + + | Respiratory Rate | 16 | 05/30/2018 9:30 AM | | | | | PDT | | + + + + + | Oxygen Saturation | - | - | | + + + + + | Inhaled Oxygen | - | - | | | Concentration | | | | + + + + + | Weight | 72.9 kg (160 lb 11.5 | 05/30/2018 9:30 AM | | | | oz) | PDT | | + + + + + | Height | 177.8 cm (5' 10") | 05/30/2018 9:30 AM | | | | | PDT | | + + + + + | Body Mass Index | 23.06 | 05/30/2018 9:30 AM | | | | | PDT | | + + + + + documented in this encounter Progress Notes Dina Garcia RN - 05/30/2018 10:00 AM PDT Nurse Note: Patient tolerated injection well. ...........................................Sissy Garcia RN on 05/30/18 at 10:28 Administrations This Visit leuprolide (LUPRON DEPOT-6 MONTH) injection 45 mg Admin Date 05/30/2018 Action Given Dose 45 mg Route Intramuscular Administered By Dina Garcia RN Jorje Whitfield nd, MD - 05/30/2018 10:00 AM PDT . Diego is a 82 [...] has had diffic ulties with hot flashes. His most recent PSA increase was last November, when he was seen in the office with a PSA of 7.17. He is having no new increase or decrease in weight, and his voiding status is stable. His most recent labs show an excellent response to Lupron, and his kidney function is normal. He is currently taking tamsulosin on a as needed basis, as he normally voids without diffic ulty. He denies any new problems with flank pain, hematuria, or dysuria. Past Medical History He has a past medical history of Actinic keratosis of scalp, Anemia, Benign prostatic hyper trophy, Bereavement without complication, C. 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 His smoking use included cigarettes and pipe. He has a 6.00 pack-year smoking history. He has never used smokeless tobacco. He repor ts that he does not drink alcohol or use drugs. Allergies Allergen Reactions Penicillins Medications: Outpatient Encounter Medications as of 05/30/2018 Medication Sig Dispense Refill albuterol (PROAIR HFA) 90 mcg/puff inhaler Inhale 2 puffs into the lungs every 6 hours as needed for Wheezing or Shortness of Breath. 1 Inhaler 11 albuterol 2.5 mg/3 mL nebulizer solution Take 2.5 mg by nebulization 2 times daily. amLODIPine (NORVASC) 5 mg tablet Take one tablet by mouth once daily. ascorbic acid (VITAMIN C) 250 MG tablet [...] 400 mg/5 mL suspension Take by mouth. megestrol (MEGACE) 20 MG tablet Take 1 tablet by mouth 3 times daily. 120 tablet 2 Multiple Vitamins-Minerals (ICAPS PO) I-Caps oxyCODONE (ROXICODONE) [...] powder Take by mouth. Respiratory Therapy Supplies [facility] [...] needed. SLEEP Facility-Administered Encounter Medications as of 05/30/2018 Medication Dose Route Frequency Provider Last Rate Last Dose [COMPLETED] leuprolide (LUPRON DEPOT-6 MONTH) injection 45 mg 45 mg Intramuscular Once Gene Tim Rutledge MD 45 mg at 05/30/18 1026 PHYSICAL EXAM Vitals: BP 130/70 | Pulse 68 | Resp 16 | Ht 1.778 m (5' 10") | Wt 72.9 kg (160 lb 11.5 oz) | BMI 23.06 kg/m General: Awake, alert, in no acute distress. Speech is fluent. Appears to be stated age.. Lungs: Normal respiratory effort, no wheezing, no stridor, no tachypnea. Abdomen: Soft, nontender. Extremities: Non-edematous. Neuro: Awake, alert, oriented. Psychiatric: Mood and affect are normal. Normal judgment. Skin: Warm and dry, no erythematous rash. Rectal: No mass, normal sphincter tone. Prostate gland is palpably small, smooth, and dorothy gn feeling. Prostate gland volume is estimated at 15-20 gm. Lateral sulci are intact. There is no prostatic induration, nodularity, irregularity, or asymmetry. DIAGNOSTIC DATA: Urinalysis is negative for blood, nitrites, and leukocyte esterase. 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 He was given Lupron 45 mg again this morning, which should last for another 6 months. He has requested that if his P SA continues to stay down to a therapeutic level, to be able to come off of Lupron, even tho ugh he is not having significant problems with hot flashes, at present. He will otherwise follow-up with his primary care physician, as he has been having GI probl ems, off and on. Diego is instructed to resume his usual and customary care with his primary care provider. I asked Diego to notify me if there were any difficulties voiding, or UTI symptoms, or flank pain, or for any questions or concerns whatsoever. This document was generated in part using [employer] voice recognition software. Although ever y effort is made to edit the content, porcelain mixer errors may occur. Occasional wrong word or [...] | | | | | [address] | | | | | | [place] [address] | | | | | | [phone] | | | | | | | | +--------+---------+ + + + + +------+--------+ + + | Name | Type | Priori | Associated Diagnoses | Order Schedule | | | | ty | | | + +------+--------+ + + | PSA, Diagnostic | Lab | Routin | Prostate cancer | 1 Occurrences | | | | e | (HCC) | starting 05/30/2018 | | | | | | until 05/31/2019 | + +------+--------+ + + | Basic Metabolic | Lab | Routin | Prostate cancer | 1 Occurrences | | Panel | | e | (HCC) | starting 05/30/2018 | | | | | | until 05/31/2019 | + +------+--------+ + + documented as of this encounter Procedures + +--------+ + + + | Procedure Name | Priori | Date/Time | Associated Diagnosis | Comments | | | ty | | | | + +--------+ + + + | POCT URINALYSIS, | Routin | 05/30/2018 | Prostate cancer | Results for this | | AUTO WITH CONF | e | 9:34 AM | ([facility]) | procedure are in the | | | | PDT | | results section. | + +--------+ + + + | LABS - EXTERNAL SCAN | | 05/26/2018 | | Results for this | | | | 12:00 AM | | procedure are in the | | | | PDT | | results section. | + +--------+ + + + documented in this encounter Results POCT Urinalysis Dipstick Automated (05/30/2018 9:34 AM PDT) + + + + + + | Component | Value | Ref Range | Performed | Pathologist | | | | | At | Signature | + + + + + + | Color, UA, | Dark Yellow (A) | Yellow, Light | | | | [...] 1.001 - 1.030 | | | | [place], | | | | | | UA, [...] | + + LABS - EXTERNAL SCAN (05/26/2018 12:00 AM PDT) + + + | [...] | leuprolide (LUPRON DEPOT-6 | Given | 05/31/19 | 45 mg | | Glut-Lef | | MONTH) injection 45 mg 45 mg, | | 19 10:26 | | | t | | Intramuscular, ONCE, 05/30/18 | | AM PDT | | | | | at 1045, For 1 dose, | | | | | | | Chemotherapy: Use appropriate | | | | | | | handling precautions., | | | | | | + +--------+ +-------+------+ + +---+---+ | | | +---+---+ documented in this encounter
--- OUTSIDE RECORDS SUMMARY | ~2019-02-24 | XMS | Encounter Summary ---
Demographics + + + | Address | [address] | | | [place] [address] | + + + | Home Phone [...] + + + | Author | [facility] | + + + | Organization | [facility] | + + + | Address | Unknown | + + + | Phone | Unavailable | + + + Support + + +---------+ + | Name | Relationship | Address | Phone | + + +---------+ + | Andrez Lucas | ECON | Unknown | Unavailable | + + +---------+ + Care Team Providers + +------+ + | Care Aircraft Inspection Record Clerk Name | Role | Phone | [...] HERNANDEZ Garces | | | | | [place] [address] | | | | | [address] | [place], [place] | | | | | Mailcode: [id number] | [address] | | | | | [facility] | [phone] | | | | | [place], [place] | | | | | | [address] | | | | | | [phone] | | | +--------+ + + + [...]
--- OUTSIDE RECORDS SUMMARY | ~2019-02-24 | XMS | Encounter Summary ---
Demographics + + + | Address | [address] | | | [place] [address] | + + + | Home Phone [...] | Organization | [facility] | | | and [...] + +------+ + | Care Director Of Community Life Name | Role | Phone | + +------+ + | Jason Read | PCP | | | MD | | | + +------+ + Encounter Details +--------+---------+ + + + | Date | Type | Department | Care Team | Description | +--------+---------+ + + + | 12/14/ | Office | [facility] | Jorje Rutledge | Prostate cancer | | 2019 | Visit | [address] | [address] | ([facility]) (Primary Dx); | | | | [place], [place] | [address] [facility] | Preventative health | | | | [address] | [place] [address] | care | | | | [phone] | [phone] | | | | | | | [...] fracture, COPD (chronic obstructive pulmonary dis ease) ([facility]), Depression, Dermatophytosis tinea capitis, Diverticulosis (01/2015), Essential hypertension, Foot fracture (02/2012), Gastritis (01/2015), GI bleed (01/2015), Heart murmur, Heartburn, Hiatal hernia (01/2015), History of rectal bleeding, Hypoxia, Insomnia, Internal bleeding (2017), Iron deficiency anemia, Kidney stone (2004), Lumbar disc herniation, Migra marcelino, Mood disorder ([facility]) of unknown (axis III) etiology, Nocturnal hypoxia, Osteoarthritis, Peptic ulcer disease, Pneumonia (05/2012), Prostate cancer ([facility]) (2007), Pulmonary nodules, Seborrheic dermatitis of scalp, Shoulder fracture (02/2012), Supplemental oxygen dependent, S VT (supraventricular tachycardia) ([facility]) (01/2014), TIA (transient ischemic attack), and Vaso [...] powder Take by mouth. Respiratory Therapy Supplies [facility] [...] 0.681 [facility] 11/25/17 7.17 [facility] 08/26/17 4.44 05/28/17 2.56 04/28/17 1.49 [...] This document was generated in part using [employer] voice recognition software. Although ever y effort is made to edit the content, whittling room operator errors may occur. Occasional wrong word [...] | | | | | [place] [address] | | | | | | [phone] | | | | | | | [...] 1.001 - 1.030 | | | | [place], | | | | | | UA, [...]
--- OUTSIDE RECORDS SUMMARY | ~2019-02-24 | XMS | Encounter Summary ---
Demographics + + + | Address | [address] | | | [place] [address] | + + + | Home Phone [...] Organization | [facility] | | [...] Providers + +------+ + | Care Supervisor Plastering Name | Role | Phone | + +------+ + PCP | Unavailable | + +------+ + Encounter Details +--------+ + + + + | Date | Type | Department | Care Team | Description | +--------+ + + + + | 08/30/ | Hospital | [facility] | [place], | | | 2010 | Encounter | MED CTR GENERIC OP | Becca Segura MD | | | | | CONV DEPT [address] | | | | | | [place], | | | | | | [place] [address] | | | | | | [phone] | | | +--------+ + + + [...] | | | | | [place] [address] | | | | | | [phone] | | | | | | | | +--------+---------+ + + + documented as of this encounter Visit Diagnoses Not on filedocumented in this encounter"
--- OUTSIDE RECORDS SUMMARY | ~2019-02-24 | XMS | Encounter Summary ---
Demographics + + + | Address | [address] | | | [place] [address] | + + + | Home Phone [...] | [facility] | | | and [...] Team Providers + +------+ + | Care Trolley Collector Name | Role | Phone | + [...] Description | +--------+--------+ + + + | 02/15/ | Refill | [facility] [place] | [place], | Medication Refill | | 2014 | | PULMONARY [address] | Becca Segura MD | | | | | [place], | | | | | | [place] [address] | | | | | | [phone] | | | +--------+--------+ + + + [...] [place] | | | | | | [place] [address] | | | | | | [phone] | | | | | | | | +--------+---------+ + + + documented as of this encounter Visit Diagnoses Not on filedocumented in this encounter"
--- OUTSIDE RECORDS SUMMARY | ~2019-02-24 | XMS | Encounter Summary ---
Demographics + + + | Address | [address] | | | [place] [address] | + + + | Home Phone [...] Organization | [facility] [...] | NA | | | | | [place] | | + + + + + | Candis Beyer | ECON | NA | | | | | FILEMON LIND | | + + + + + Care Team Providers + +------+ + | Care Associate Vice President Name | Role | Phone | + [...] | | | | | | [place] [address] | | | | | | [phone] | | | +--------+--------+ + + + [...] | | | | | [place] [address] | | | | | | [phone] | | | | | | | | +--------+---------+ + + + documented as of this encounter Visit Diagnoses Not on filedocumented in this encounter"
--- OUTSIDE RECORDS SUMMARY | ~2019-02-24 | XMS | Encounter Summary ---
Demographics + + + | Address | [address] | | | [place] [address] | + + + | Home Phone [...] + | Organization | [facility] [...] Team Providers + +------+ + | Care Crew Person Name | Role | Phone | + +------+ + | Parviz Brar DO | PCP | | + +------+ + Encounter Details +--------+ + + + + | Date | Type | Department | Care Team | Description | +--------+ + + + + | 04/03/ | Hospital | [facility] | Jorje Rutledge | | | 2016 | Encounter | MED CTR LABORATORY | MD [address] | | | | | [address] [place] | [place] | | | | | [place], [place] | [place] [address] | | | | | [address] | [phone] | | | | | [phone] | | | +--------+ + + + [...] | | | | | [place] [address] | | | | | | [phone] | | | | | | | | +--------+---------+ + + + documented as of this encounter Visit Diagnoses Not on filedocumented in this encounter"
--- OUTSIDE RECORDS SUMMARY | ~2019-02-24 | XMS | Encounter Summary ---
Demographics + + + | Address | [address] | | | [place] [address] | + + + | Home Phone [...] | Organization | [facility] | | | and [place] [...] Team Providers + +------+ + | Care Revolving Field Assembler Name | Role | Phone | + +------+ + | Parviz Brar DO | PCP | | + +------+ + Encounter Details +--------+ + + + + | Date | Type | Department | Care Team | Description | +--------+ + + + + | 06/16/ | Hospital | [facility] | Conversion | Pain | | 2017 | Encounter | CONVERSION [address] | Transaction, | | | | | [address] | Provider Unknown | | | | | [place], [place] | [phone] | | | | | [address] | | | | | | [phone] | | | +--------+ + + + [...] | | | | | [place] [address] | | | | | | [phone] | | | | | | | [...]
--- OUTSIDE RECORDS SUMMARY | ~2019-02-24 | XMS | Encounter Summary ---
Demographics + + + | Address | [address] | | | [place] [address] | + + + | Home Phone [...] | Organization | [facility] [...] Team Providers + +------+ + | Care Catheter Builder Name | Role | Phone | [...] + + | 03/13/ | Office | [facility] [place] | [place], | COPD (chronic | | 2014 | Visit | PULMONARY [address] | Becca Segura MD | obstructive | | | | [place], | | pulmonary disease) | | | | [place] [address] | | (Primary Dx); | | | | [phone] | | Nocturnal hypoxemia | | | | | | due to emphysema | | | | | | (HCC); SVT | | | | | | (supraventricular | | | | | | tachycardia); Need | | | | | | for vaccination with | | | | | | 13-polyvalent | | | | | | pneumococcal | | | | | | conjugate vaccine | +--------+---------+ + + + Social History [...] + + + | Blood Pressure | 112/66 | 03/13/2014 2:42 PM | | | | | PST | | + + + + + | Pulse | 98 | 03/13/2014 2:42 PM | | | | | PST | | + + + + + | Temperature | - | - | | + + + + + | Respiratory Rate | - | - | | + + + + + | Oxygen Saturation | 93% | 03/13/2014 2:42 PM | | | | | PST | | + + + + + | Inhaled Oxygen | - | - | | | Concentration | | | | + + + + + | Weight | 81.7 kg (180 lb 3.2 | 03/13/2014 2:42 PM | | | | oz) | PST | | + + + + + | Height | 182.9 cm (6') | 03/13/2014 2:42 PM | | | | | PST | | + + + + + | Body Mass Index | 24.44 | 03/13/2014 2:42 PM | | | | | PST | | + + + + + documented in this encounter Patient Instructions Patient Instructions Becca Castro MD - 03/13/2014 3:12 PM PSTDo an overnight ox[facility] Call the [facility] before you pick it up to make sure th ey have a box available. You will cone picker a box at the [employer]. Do the test on 2 L. Wear the finger probe through the night and then return the box for a download the next d ay. No changes to your inhalers today. We could consider an Advair type medication again after your ablation. We will give you the Prevnar 13 today. documented in this encounter Progress Notes Becca Castro MD - 03/13/2014 3:00 PM PSTFormatting of this note might be differe nt from the original. Pulmonary Follow Up HPI Diego Lucas is a 78 y.o. male patient of Parviz Brar here today for follow up o f COPD. At their last visit, we had increased his dose of Atrovent. Since their last visit he feels like he has been doing okay. He did have a malt liquors sales representative that showed he was having episod es of SVT, and he is now scheduled for an ablation. He is still having shortness of breath, unclear if this at all related to his heart. He does note that with any activity, his heart rate goes up to 130. He is currently on a regimen of Qvar twice daily and Atrovent 4 times daily. He is using th e Ventolin only infrequently. He has used 25 puffs in 1 1/2 months. He returns today for [facility] follow up. Currently he is able to walk 6-7 blocks at his own pace on level ground. He is not exercisi ng regularly. He has limited his exercise due to the weather. He does cough, and notes this has increased some. He has not been producing as much mucous as he was. He never felt like Spiriva helped him. On Advair he felt like he passed out. He has been evaluated for nocturnal oxygen and does use it. He is currently on 2 LPM at [facility]. He reports good compliance. He does have symptoms of heartburn or reflux. He just bought some more Tums. It occurs 1-2 times a week. He has cut back to 2 cups of coffee, though Dr. Wilder told him to quit. Past Medical History Past Medical History Diagnosis Date COPD (chronic obstructive pulmonary disease) (HCC) Peptic ulcer disease with upper GI bleed Benign prostatic hypertrophy Prostate cancer (HCC) s/p radiation treatment and on hormonal treatment with Lupron Osteoarthritis Heartburn Pulmonary nodules Cataracts, bilateral Pneumonia 05/2012 hospitalized [facility] Shoulder fracture 02/2012 Foot fracture 02/2012 [...] home. No other animal exposures.Grew up in [place]. Then lived in [place]. Then move d to [place]. In the service lived in [facility] and [place]. No recent travel. Allergies: Allergies Allergen Reactions Adhesive & Tape Paper tapes Medications: Outpatient Encounter Prescriptions as of 03/13/2014 Medication Sig Dispense Refill acetaminophen (TYLENOL) 325 [...] 325 mg by mouth daily (with breakfast). folic acid (FOLVITE) 400 MCG tablet Take 400 mcg by mouth Daily. Hydrocodone-Acetaminophen 10-300 MG TABS as needed for pain ipratropium (ATROVENT HFA) 17 mcg/puff inhaler Inhale 2 puffs into the lungs 4 times da leslie. 1 Inhaler 11 omeprazole (PRILOSEC OTC) 20 mg tablet Take 20 mg by mouth Daily. oxygen Inhale 2 L into the lungs nightly. Respiratory Therapy Supplies [facility] Please provide an O2 concentrator while Diego [...] sweats, and change in weight. Sleep: Denies snoring. He does take a sleeping pill, and occasionally just half. He is not tired during the daytime. Eyes: Denies vision change and eye irritation. ENT: Denies earache, decreased hearing, nosebleeds, sore throat, and hoarseness. Resp: See HPI. CV: Denies chest pain, syncope, and peripheral edema. Has had episodes of fast heart rate. GI: Denies nausea, vomiting, and abdominal pain. : Has had some trouble urinating, and is on tamsulosin. Objective BP 112/66 | Pulse 98 | Ht 1.829 m (6') | Wt 81.738 kg (180 lb 3.2 oz) | BMI 24.43 kg/m2 | S pO2 93% RA General [...] No deformity Heart: Regular rate and rhythm, 2/6 systolic murmur, rub or gallop Abdomen: Soft, non-tender, non-distended Extremities: No cyanosis, clubbing, or edema Pulses: Radial pulses 2+ and symmetric Skin: Warm and dry Lymph nodes: Cervical and supraclavicular nodes normal Data: Immunization History Administered Date(s) Administered PNEUMOCOCCAL POLYSACCHARIDE 23-VALENT (PPSV23) 10/21/2010 TRIVALENT INFLUENZA, PRESERATIVE FREE (PED/ADOL/ADULT) 12/11/2012, 11/18/2013 ZOSTER, 1 DOSE (ADULT) 04/22/2013 Assessment 1. COPD (chronic obstructive pulmonary disease) - On Flovent and Atrovent. He has been more dyspneic, unclear if this is due to cardiac or pulmonary issues. We will see what his cardi ac evaluation leads to. 2. 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 WE will recheck to ensure sufficient. 3. SVT (supraventricular tachycardia) - He will be undergoing ablation. It is possible this resulted in syncopal events on Advair. 4. Need for vaccination with 13-polyvalent pneumococcal conjugate vaccine - Prevnar 13 give n today in accordance with updated guidelines. Plan 1.Continue Flovent and Atrovent. 2.Continue oxygen at night at 2L. 3.Recheck overnight oximetry on 2L. 4. Consider change back to Advair if still having a lot of dyspnea after ablation. 5. Prevnar 13 given today in accordance with updated guidelines. He was advised to call if new pulmonary symptoms were to develop. Return to clinic in 3 months, or sooner with concerns. CC: Parviz Brar Portions of this report were transcribed using voice recognition software. Every effort wa s made to ensure accuracy; however, inadvertent computerized meat process worker errors may be pre sent. documented [...] | | | | | [place] [address] | | | | | | [phone] | | | | | | | | +--------+---------+ + + + + + +--------+ + + | Name | Type | Priori | Associated Diagnoses | Order Schedule | | | | ty | | | + + +--------+ + + | Overnight oximetry, | Respiratory | Routin | COPD (chronic | Expected: | | room air | Care | e | obstructive | 03/13/2014, Expires: | | | | | pulmonary disease) | 03/13/2015 | | | | | Nocturnal hypoxemia | | | | | | due to emphysema | | | | | | ([facility]) | | + + +--------+ + + documented as of this encounter Visit Diagnoses + + | Diagnosis | + + | COPD (chronic obstructive pulmonary disease) - Primary Chronic airway obstruction, | | not elsewhere classified | + + | 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
--- OUTSIDE RECORDS SUMMARY | ~2019-02-24 | XMS | Encounter Summary ---
Demographics + + + | Address | [address] | | | [place] [address] | + + + | Home Phone [...] Organization | [facility] | | | and [...] Team Providers + +------+ + | Care Coat Padder Name | Role | Phone | + +------+ + | Parviz Brar DO | PCP | | + +------+ + Encounter Details +--------+ + + + + | Date | Type | Department | Care Team | Description | +--------+ + + + + | 06/16/ | Hospital | [facility] GENER[facility] IP | Conversion | Pain | | 2017 | Encounter | CONVERSION [address] | Transaction, | | | | | [address] | Provider Unknown | | | | | [place], [place] | [phone] | | | | | [address] | | | | | | [phone] | | | +--------+ + + + [...] | | | | | [place] [address] | | | | | | [phone] | | | | | | | | +--------+---------+ + + + documented as of this encounter Procedures + +--------+ + + + | Procedure Name | Priori | Date/Time | Associated Diagnosis | Comments | | | ty | | | | + +--------+ + + + | XR CHEST 2 VIEWS | Routin | 03/06/2015 | | Results for this | | | e | 5:37 AM | | procedure are in the | | | | PST | | results section. | + +--------+ + + + documented in this encounter Results XR Chest 2 Vws (03/06/2015 5:37 AM PST) + + | Specimen | [...]
--- OUTSIDE RECORDS SUMMARY | ~2019-02-24 | XMS | Encounter Summary ---
Demographics + + + | Address | [address] | | | [place] [address] | + + + | Home Phone [...] + | Organization | [facility] | | [...] Providers + +------+ + | Care Customer Business Manager Name | Role | Phone | [...] + + | 08/06/ | Refill | [facility] | Jorje Rutledge | Medication Refill | | 2017 | | [address] | [address] | | | | | [place], [place] | [address] [facility] | | | | | [address] | [place] [address] | | | | | [phone] | [phone] | | | | | | | [...] | | | | | [place] [address] | | | | | | [phone] | | | | | | | | +--------+---------+ + + + documented as of this encounter Visit Diagnoses Not on filedocumented in this encounter"
--- OUTSIDE RECORDS SUMMARY | ~2019-02-24 | XMS | Encounter Summary ---
Demographics + + + | Address | [address] | | | [place] [address] | + + + | Home Phone [...] | Organization | [facility] | | | and [place] [...] Team Providers + +------+ + | Care Solar Sales Manager Name | Role | Phone | [...] 2017 | | GASTROENTEROLOGY | [address] [place] | | | | | [address] [place] | [address] [place], [place] | | | | | [address] [place], [place] | [address] | | | | | [address] | | | | | | [phone] | | | +--------+ + + + [...] | | | | | [place] [address] | | | | | | [phone] | | | | | | | | +--------+---------+ + + + documented as of this encounter Visit Diagnoses Not on filedocumented in this encounter"
--- OUTSIDE RECORDS SUMMARY | ~2019-02-24 | XMS | Encounter Summary ---
Demographics + + + | Address | [address] | | | [place] [address] | + + + | Home Phone [...] | [facility] | | | [...] Team Providers + +------+ + | Care Childbirth And Infant Care Teacher Name | Role | Phone | [...] [address] | | | | | [place], [place] | [address] [place] | | | | | [address] | [place] [address] | | | | | [phone] | [phone] | | | | | | | [...] | | | | | [place] [address] | | | | | | [phone] | | | | | | | [...] + | REFERENCE LAB | [address] | [place] [address] | [phone] | | [facility] | | | | + + + + + | REFERENCE LAB | [address] | [place] [address] | [phone] | | [facility] | | | | + + + + + documented in this encounter Visit Diagnoses Not on filedocumented in this encounter"
--- OUTSIDE RECORDS SUMMARY | ~2019-02-24 | XMS | Encounter Summary ---
[...] Organization | [facility] | | | and [...] Team Providers + +------+ + | Care Cheese Specialist Name | Role | Phone | [...] 2017 | | GASTROENTEROLOGY | [address] [place] | | | | | [address] [place] | [address] [place], [place] | | | | | [address] [place], [place] | [address] | | | | | [address] | | | | | | [phone] | | | +--------+ + + + [...] | | | | | [place] [address] | | | | | | [phone] | | | | | | | | +--------+---------+ + + + documented as of this encounter Visit Diagnoses Not on filedocumented in this encounter"
--- OUTSIDE RECORDS SUMMARY | ~2019-02-24 | XMS | Encounter Summary ---
Demographics + + + | Address | [address] | | | [place] [address] | + + + | Home Phone [...] + | Organization | [facility] | | | and [place] [...] Providers + +------+ + | Care Tip Cementer Name | Role | Phone | + [...] Segura MD | | | | | [place], | | | | | | [place] [address] | | | | | | [phone] | | | +--------+ + + + [...] | | | | | [place] [address] | | | | | | [phone] | | | | | | | | +--------+---------+ + + + documented as of this encounter Visit Diagnoses Not on filedocumented in this encounter"
--- OUTSIDE RECORDS SUMMARY | ~2019-02-24 | XMS | Encounter Summary ---
Demographics + + + | Address | [address] | | | [place] [address] | + + + | Home Phone [...] + | Organization | [facility] | [...] Team Providers + +------+ + | Care Divorce Attorney Name | Role | Phone | + +------+ + PCP | Unavailable | + +------+ + Encounter Details +--------+ + + + + | Date | Type | Department | Care Team | Description | +--------+ + + + + | 03/06/ | Hospital | [facility] | | | | 1996 | Encounter | MED CTR XRAY [address] | | | | | | [place] | | | | | | [place] [address] | | | | | | [phone] | | | +--------+ + + + [...] | | | | | [place] [address] | | | | | | [phone] | | | | | | | | +--------+---------+ + + + documented as of this encounter Visit Diagnoses Not on filedocumented in this encounter"
--- OUTSIDE RECORDS SUMMARY | ~2019-02-24 | XMS | Encounter Summary ---
Demographics + + + | Address | [address] | | | [place] [address] | + + + | Home Phone [...] | Organization | [facility] | | | and [...] Providers + +------+ + | Care Senior Accountant Analyst Name | Role | Phone | [...] + + | 04/14/ | Office | [facility] | [place], | COPD (chronic | | 2013 | Visit | PULMONARY [address] | Becca Segura MD | obstructive | | | | [place], | | pulmonary disease) | | | | [place] [address] | | (HCC) (Primary Dx); | | | | [phone] | | Nocturnal hypoxemia; | | | [...] MD [place] [facility] [address] [place], [address] HPI Diego Lucas is a 77 y.o. [...] on level ground. He is exercising re Evirxlarly. {He was not walking for a while due to snow, but is walking again now that the weat her is better. He does cough chronically, and does produce mucous, though this has decreased alot. He has not had hemoptysis. He has been evaluated for nocturnal oxygen and does use it. He is currently on 1.5 LPM at [facility]. He was lasted tested on 2L in [...] home. No other animal exposures.Grew up in [place]. Then lived in [place]. Then move d to [place]. In the service lived in [facility] and [place]. No recent travel. Allergies: Allergies Allergen Reactions [...] and is going back to see the relay shop supervisor. GI: Denies heartburn, nausea, vomiting, and abdominal [...] breath sounds are diminished bilaterally, no wheezes, crank hand ckles or rhonchi Chest Wall: No deformity [...] again and going to visit family in [place] for about a month. I encouraged him to do so, as he has had a rough year. 2. 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 Based on last overnight oximetry, we will increase to 2 L. I advised he should contact [facility] about having oxygen arranged at his destination for [place] trip. 3. Abnormal CT scan - Last [...] 4. Arrange for oxygen at destination for [place] trip. He was advised to call if new pulmonary symptoms were to develop. Return to clinic in 3 months, or sooner with concerns. CC: Parviz Brar Portions of this report were transcribed using voice recognition software. Every effort wa s made to ensure accuracy; however, inadvertent computerized unit manager convenience stores errors may be pre sent. documented in [...] [place] | | | | | | [place] [address] | | | | | | [phone] | | | | | | | [...] | 04/14/2014 | | | | | ([facility]) | | + + +--------+ [...]
--- OUTSIDE RECORDS SUMMARY | ~2019-02-24 | XMS | Encounter Summary ---
Demographics + + + | Address | [address] | | | [place] [address] | + + + | Home Phone [...] Organization | [facility] | [...] Team Providers + +------+ + | Care Project Financial Analyst Name | Role | Phone | + +------+ + | Jason Read | PCP | | | MD | | | + +------+ + Encounter Details +--------+ + + + + | Date | Type | Department | Care Team | Description | +--------+ + + + + | 05/31/ | Abstract | [facility] [place] [facility] | RutledgeJorje | | | 2018 | | [address] | [address] | | | | | [place] | [place] | | | | | [address] | [place] [address] | | | | | [phone] | [phone] | | | | | | | [...] | | | | | [place] [address] | | | | | | [phone] | | | | | | | | +--------+---------+ + + + documented as of this encounter Procedures + +--------+ + + + | Procedure Name | Priori | Date/Time | Associated Diagnosis | Comments | | | ty | | | | + +--------+ + + + | EXTERNAL LAB: PSA, | Routin | 05/26/2018 | | Results for this | | SCREEN | e | 10:45 AM | | procedure are in the | | | | PDT | | results section. | + +--------+ + + + | PSA, DIAGNOSTIC | Routin | 05/26/2018 | | Results for this | | | e | 10:45 AM | | procedure are in the | | | | PDT | | results section. | + +--------+ + + + documented in this encounter Results External Lab: PSA, Screen (05/26/2018 10:45 AM PDT) + +-------+ + + + | Component | Value | Ref Range | Performed | Pathologist | | | | | At | Signature | + +-------+ + + + | PSA, | 0.494 | 0 - 4 | REFERENCE | [...] + | REFERENCE LAB | [address] | [place] [address] | [phone] | | [facility] | | | | + + + + + | REFERENCE LAB | [address] | [place] [address] | [phone] | | [facility] | | | | + + + + + PSA, Diagnostic (05/26/2018 10:45 AM PDT) + + + + + + | Component | Value | Ref Range | Performed | Pathologist | | | | | At | Signature | + + + + + + | Duplicate | Comment: Error duplicate | | REFERENCE | | | Report | | | LAB | | | | | | [facility] | | + + + + + + + + | Specimen | + + | Blood | + + + + + + + | Performing | Address | City/State/Zipcode | Phone Number | | Organization | | | | + + + + + | REFERENCE LAB | [address] | [place] [address] | [phone] | | [facility] | | | | + + + + + | REFERENCE LAB | [facility] | [place] [address] | [phone] | | [facility] | | | | + + + + + documented in this encounter Visit Diagnoses Not on filedocumented in this encounter"
--- OUTSIDE RECORDS SUMMARY | ~2019-02-24 | XMS | Encounter Summary ---
Demographics + + + | Address | [address] | | | [place] [address] | + + + | Home Phone [...] + | Organization | [facility] | | | [...] Team Providers + +------+ + | Care Wafer Line Worker Name | Role | Phone | [...] 2017 | | GASTROENTEROLOGY | [address], [place] | | | | | [address] [place] | [address] [place], [place] | | | | | [address] [place], [place] | [address] | | | | | [address] | | | | | | [phone] | | | +--------+ + + + [...] | | | | | [place] [address] | | | | | | [phone] | | | | | | | | +--------+---------+ + + + documented as of this encounter Visit Diagnoses Not on filedocumented in this encounter"
--- OUTSIDE RECORDS SUMMARY | ~2019-02-24 | XMS | Encounter Summary ---
Demographics + + + | Address | [address] | | | [place] [address] | + + + | Home Phone | | + + + | Preferred Language | Unknown | + + + | Marital Status | | + + + | Druze Affiliation | PRE | + + + | Race | White | + + + | Ethnic Group | Not or | + + + Author + + + | Author | [facility] | + + + | Organization | [facility] | + + + | Address | Unknown | + + + | Phone | Unavailable | + + + Support + + +---------+ + | Name | Relationship | Address | Phone | + + +---------+ + | Andrez Lucas | ECON | Unknown | Unavailable | + + +---------+ + Care Team Providers + +------+ + | Care Box Order Person Name | Role | Phone | + +------+ + | Parviz Brar DO | PCP | | + +------+ + Encounter Details +--------+ + + + + | Date | Type | Department | Care Team | Description | +--------+ + + + + | 02/03/ | Telephone | [facility] | Renny lEdridge MD | | | 2017 | | Interventional | [address] | | | | | [place] [address] | [address] | | | | | [address] | [place], [place] | | | | | Mailcode: [address]605 | [address] | | | | | [facility] | [phone] | | | | | [place], [place] | | | | | | [address] | | | | | | [phone] | | | +--------+ + + + [...]
--- OUTSIDE RECORDS SUMMARY | ~2019-02-24 | XMS | Encounter Summary ---
Demographics + + + | Address | [address] | | | [place] [address] | + + + | Home Phone [...] + | Organization | [facility] | [...] Team Providers + +------+ + | Care District Manager Primary Care Sales Name | Role | Phone | + [...] Segura MD | | | | | [place], | | | | | | [place] [address] | | | | | | [phone] | | | +--------+ + + + [...] | | | | | [place] [address] | | | | | | [phone] | | | | | | | | +--------+---------+ + + + documented as of this encounter Visit Diagnoses Not on filedocumented in this encounter"
--- OUTSIDE RECORDS SUMMARY | ~2019-02-24 | XMS | Encounter Summary ---
Demographics + + + | Address | [address] | | | [place] [address] | + + + | Home Phone [...] | Organization | [facility] | | [...] Team Providers + +------+ + | Care Microbiological Laboratory Technician Name | Role | Phone | + +------+ + PCP | Unavailable | + +------+ + Encounter Details +--------+ + + + + | Date | Type | Department | Care Team | Description | +--------+ + + + + | 09/22/ | Hospital | [facility] | | | | 2007 - | Encounter | MED CTR CANCER | | | | | | CENTER [address] | | | | 10/22/ | | [place] | | | | 2007 | | [address] | | | | | | [phone] | | | +--------+ + + + [...] | | | | | [place] [address] | | | | | | [phone] | | | | | | | | +--------+---------+ + + + documented as of this encounter Visit Diagnoses Not on filedocumented in this encounter"
--- OUTSIDE RECORDS SUMMARY | ~2019-02-24 | XMS | Encounter Summary ---
Demographics + + + | Address | [address] | | | [place] [address] | + + + | Home Phone [...] + | Organization | [facility] | [...] Team Providers + +------+ + | Care Rail Signal Mechanic Name | Role | Phone | + +------+ + PCP | Unavailable | + +------+ + Encounter Details +--------+ + + + + | Date | Type | Department | Care Team | Description | +--------+ + + + + | 10/25/ | Hospital | [facility] | [place], | | | 2010 | Encounter | MED CTR XRAY [address] | Becca Segura MD | | | | | [place] | | | | | | [place] [address] | | | | | | [phone] | | | +--------+ + + + [...] | | | | | [place] [address] | | | | | | [phone] | | | | | | | [...] Performed At | + + + | [facility] Diagnostic Imaging Department | [facility] | | [address] | [facility] | | UNENHANCED CHEST CT: 12/16/2010 | [...] Transcribed Date/Time: 12/17/2010 07:02 | | | Fire Patrol: <Electronically Signed by Colin Merrill MD> | | | 12/17/10 7120 | | + + + + + | Procedure Note | + + | [place], Rad Conversion - 03/31/2013 4:06 PM [facility] | | Diagnostic Imaging Department | | [address] | | | | | | [...] | Transcribed Date/Time: 12/17/2010 07:02 | | Fire Patrol: LENNIE | | <Electronically Signed by Colin [...]
--- OUTSIDE RECORDS SUMMARY | ~2019-02-24 | XMS | Encounter Summary ---
Demographics + + + | Address | [address] | | | [place] [address] | + + + | Home Phone [...] Organization | [facility] [...] Providers + +------+ + | Care Assistant Basketball Coach Name | Role | Phone | + +------+ + | Jason Read | PCP | | | MD | | | + +------+ + Encounter Details +--------+ + + + + | Date | Type | Department | Care Team | Description | +--------+ + + + + | 11/29/ | Abstract | [facility] | RutledgeJorje | | | 2017 | | [address] | [address] | | | | | [place] | [address] | | | | | [address] | [place] [address] | | | | | [phone] | [phone] | | | | | | | [...] | | | | | [place] [address] | | | | | | [phone] | | | | | | | [...] Agency Comment | + + | [facility] | + + + +---------+ + + | Performing | Address | City/State/Zipcode | Phone Number | | Organization | | | | + +---------+ + + | EXTERNAL LAB | | | | + +---------+ + + documented in this encounter Visit Diagnoses Not on filedocumented in this encounter"
--- OUTSIDE RECORDS SUMMARY | ~2019-02-24 | XMS | Encounter Summary ---
Demographics + + + | Address | [address] | | | [place] [address] | + + + | Home Phone [...] Organization | [facility] [...] Providers + +------+ + | Care Customer Support Representative Name | Role | Phone | + +------+ + | Parviz Brar DO | PCP | | + +------+ + Encounter Details +--------+ + + + + | Date | Type | Department | Care Team | Description | +--------+ + + + + | 04/14/ | Hospital | [facility] | [place], | | | 2013 | Encounter | MED CTR GENERIC OP | Becca Segura MD | | | | | CONV DEPT [address] | | | | | | [place], | | | | | | [place] [address] | | | | | | [phone] | | | +--------+ + + + [...] | | | | | [place] [address] | | | | | | [phone] | | | | | | | | +--------+---------+ + + + documented as of this encounter Visit Diagnoses Not on filedocumented in this encounter"
--- OUTSIDE RECORDS SUMMARY | ~2019-02-24 | XMS | Encounter Summary ---
Demographics + + + | Address | [address] | | | [place] [address] | + + + | Home Phone | | + + + | Preferred Language | Unknown | + + + | Marital Status | | + + + | Mormonism Affiliation | 1076 | + + + | Race | Unknown | + + + | Ethnic Group | Unknown | + + + Author + + + | Author | [facility] | | | and [place] | + + + | Organization | [facility] | [...] Providers + +------+ + | Care Cloth Grader Supervisor Name | Role | Phone | [...] + + | 07/01/ | Office | [facility] | Jorje Rutledge | Prostate cancer | | 2016 | Visit | [address] | [address] | ([facility]) (Primary Dx); | | | | [place], [place] | [facility] | Preventative health | | | | [address] | [place] [address] | care | | | | [phone] | [phone] | | | | | | | [...] a patient of Dr. Mercedez Barkley in [place] for many years. He originally had a [...] tachycardia) (01/2014); Depression; Prostate cancer ([facility]) (2007); COPD (chronic obstructive pulmonary disease) (); [...] mouth. Respiratory Therapy Supplies [facility] Please provide an O2 [...] have not thoroughly proofread this note, and ship yard electrical person erro rs may occur. documented in th [...] | | | | | [place] [address] | | | | | | [phone] | | | | | | | [...] | | | e | ([facility]) | (Approximate), | | | | | [...] e | 8:03 AM | ([facility]) | procedure are in the | | [...] 1.001 - 1.030 | | | | [place], | | | | | | UA, [...]
--- OUTSIDE RECORDS SUMMARY | ~2019-02-24 | XMS | Encounter Summary ---
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
--- OUTSIDE RECORDS SUMMARY | ~2019-02-24 | XMS | Encounter Summary ---
Demographics + + + | Address | [address] | | | [place] [address] | + + + | Home Phone [...] | Organization | [facility] | | | and [...] Team Providers + +------+ + | Care Pattern Finisher Name | Role | Phone | [...] 2017 | | GASTROENTEROLOGY | [address], [place] | | | | | [address] [place] | [address] [place], [place] | | | | | [address] [place], [place] | [address] | | | | | [address] | | | | | | [phone] | | | +--------+ + + + [...] 03/13/ | Office | Urology | Jorje Rutledeg | | | 2020 | Visit | | [address] | | | | | | [address] | | | | | | [place] [address] | | | | | | [phone] | | | | | | | | +--------+---------+ + + + documented as of this encounter Visit Diagnoses Not on filedocumented in this encounter"
--- OUTSIDE RECORDS SUMMARY | ~2019-02-24 | XMS | Encounter Summary ---
Demographics + + + | Address | [address] | | | [place] [address] | + + + | Home Phone [...] | Organization | [facility] | | | and [...] Team Providers + +------+ + | Care Blending Tank Tender Name | Role | Phone | + +------+ + | Parviz Brar DO | PCP | | + +------+ + Encounter Details +--------+ + + + + | Date | Type | Department | Care Team | Description | +--------+ + + + + | 04/07/ | Abstract | [facility] [place] | Froylan Werner MD | | | 2018 | | GASTROENTEROLOGY | [address], [place] | | | | | [address] [place] | [address] [place], [place] | | | | | [address] [place], [place] | [address] | | | | | [address] | | | | | | [phone] | | | +--------+ + + + [...] | +--------+---------+ + + + | 01/20/ Office | Urology | Jorje Rutledge | | | 2019 | Visit | | [address] | | | | | | [address] | | | | | | [place] [address] | | | | | | [phone] | | | | | | | | +--------+---------+ + + + documented as of this encounter Procedures + +--------+ + + + | Procedure Name | Priori | Date/Time | Associated Diagnosis | Comments | | | ty | | | | + +--------+ + + + | EXTERNAL LAB: MIKE | Routin | 03/18/2017 | | Results for this | | | e | | | procedure are in the | | | | | | results section. | + +--------+ + + + | EXTERNAL LAB: | Routin | 03/18/2017 | | Results for this | | MAGNESIUM | e | | | procedure are in the | | | | | | results section. | + +--------+ + + + | EXTERNAL LAB: CARBON | Routin | 03/18/2017 | | Results for this | | DIOXIDE | e | | | procedure are in the | | | | | | results section. | + +--------+ + + + | EXTERNAL LAB: | Routin | 03/18/2017 | | Results for this | | CHLORIDE | e | | | procedure are in the | | | | | | results section. | + +--------+ + + + | EXTERNAL LAB: | Routin | 03/18/2017 | | Results for this | | POTASSIUM | e | | | procedure are in the | | | | | | results section. | + +--------+ + + + | EXTERNAL LAB: SODIUM | Routin | 03/18/2017 | | Results for this | | | e | | | procedure are in the | | | | | | results section. | + +--------+ + + + | EXTERNAL LAB: CBC | Routin | 03/18/2017 | | Results for this | | | e | | | procedure are in the | | | | | | results section. | + +--------+ + + + | EXTERNAL: | Routin | 03/18/2017 | | Results for this | | COLONOSCOPY | e | | | procedure are in the | | | | | | results section. | + +--------+ + + + | EXTERNAL LAB: EGFR | Routin | 03/18/2017 | | Results for this | | | e | | | procedure are in the | | | | | | results section. | + +--------+ + + + | EXTERNAL LAB: | Routin | 03/18/2017 | | Results for this | | CREATININE | e | | | procedure are in the | | | | | | results section. | + +--------+ + + + | CBC WITH | Routin | 03/18/2017 | | Results for this | | DIFFERENTIAL | e | | | procedure are in the | | | | | | results section. | + +--------+ + + + | COMPREHENSIVE | Routin | 03/18/2017 | | Results for this | | METABOLIC PANEL | e | | | procedure are in the | | | | | | results section. | + +--------+ + + + documented in this encounter Results EXTERNAL: COLONOSCOPY (03/18/2017) + + + + + + | Component | Value | Ref Range | Performed | Pathologist | | | | | At | Signature | + + + + + + | Colonoscopy | Postoperative Diagnosis: | | EXTERNAL | | | | Minimal to moderate | | LAB | | | Impression, | internal and external | | | | | External | hemorrhoid. 03/18/2017 | | | | | | Conrado Arellano MD [facility] | | | | + + + + + + + +---------+ + + | Performing | Address | City/State/Zipcode | Phone Number | | Organization | | | | + +---------+ + + | EXTERNAL LAB | | | | + +---------+ + + External Lab: Magnesium (03/18/2017) + +-------+ + + + | Component | Value | Ref Range | Performed | Pathologist | | | | | At | Signature | + +-------+ + + + | Magnesium, | 2.0 | 1.7 - 2.5 | EXTERNAL | | | External | | | LAB | | + +-------+ + + + + +---------+ + + | Performing | Address | City/State/Zipcode | Phone Number | | Organization | | | | + +---------+ + + | EXTERNAL LAB | | | | + +---------+ + + CBC with Differential (03/18/2017) + +-------+ + + + | Component | Value | Ref Range | Performed | Pathologist | | | | | At | Signature | + +-------+ + + + | MCH | 29.0 | pg | | | + +-------+ + + + | MCHC | 33.0 | % | | | + +-------+ + + + | % Basophils | 0.2 | % | | | + +-------+ + + + + + | Specimen | + + | Blood | + + Comprehensive Metabolic Panel (03/18/2017) + +-------+ + + + | Component | Value | Ref Range | Performed | Pathologist | | | | | At | Signature | + +-------+ + + + | Anion Gap | 12 | 7 - 21 mmol/L | | | + +-------+ + + + | Bun/Creatin | 7.9 | 6 - 28.6 Ratio | | | | ine | | | | | + +-------+ + + + + + | Specimen | + + | Blood | + + External Lab: BUN (03/18/2017) + +-------+ + + + | Component | Value | Ref Range | Performed | Pathologist | | | | | At | Signature | + +-------+ + + + | BUN, | 7 | 6 - 23 | EXTERNAL | | | External | | | LAB | | + +-------+ + + + + +---------+ + + | Performing | Address | City/State/Zipcode | Phone Number | | Organization | | | | + +---------+ + + | EXTERNAL LAB | | | | + +---------+ + + External Lab: Carbon Dioxide (03/18/2017) + +-------+ + + + | Component | Value | Ref Range | Performed | Pathologist | | | | | At | Signature | + +-------+ + + + | Carbon | 25 | - 31 | EXTERNAL | | | Dioxide, | | | LAB | | | External | | | | | + +-------+ + + + + +---------+ + + | Performing | Address | City/State/Zipcode | Phone Number | | Organization | | | | + +---------+ + + | EXTERNAL LAB | | | | + +---------+ + + External Lab: Chloride (03/18/2017) + +-------+ + + + | Component | Value | Ref Range | Performed | Pathologist | | | | | At | Signature | + +-------+ + + + | Chloride, | 108 | 95 - 112 | EXTERNAL | | | External | | | LAB | | + +-------+ + + + + +---------+ + + | Performing | Address | City/State/Zipcode | Phone Number | | Organization | | | | + +---------+ + + | EXTERNAL LAB | | | | + +---------+ + + External Lab: Potassium (03/18/2017) + +-------+ + + + | Component | Value | Ref Range | Performed | Pathologist | | | | | At | Signature | + +-------+ + + + | Potassium, | 3.6 | 3.6 - 5.1 | EXTERNAL | | | External | | | LAB | | + +-------+ + + + + +---------+ + + | Performing | Address | City/State/Zipcode | Phone Number | | Organization | | | | + +---------+ + + | EXTERNAL LAB | | | | + +---------+ + + External Lab: Sodium (03/18/2017) + +-------+ + + + | Component | Value | Ref Range | Performed | Pathologist | | | | | At | Signature | + +-------+ + + + | Sodium, | 140 | 132 - 143 | EXTERNAL | | | External | | | LAB | | + +-------+ + + + + +---------+ + + | Performing | Address | City/State/Zipcode | Phone Number | | Organization | | | | + +---------+ + + | EXTERNAL LAB | | | | + +---------+ + + External Lab: CBC (03/18/2017) + + + + + + | Component | Value | Ref Range | Performed | Pathologist | | | | | At | Signature | + + + + + + | WBC, | 7.5 | 4.5 - 11 | EXTERNAL | | | External | | | LAB | | + + + + + + | HGB, | 9.3 (A) | 13.5 - 18 | EXTERNAL | | | External | | | LAB | | + + + + + + | HCT, | 28.0 (A) | 41 - 50 | EXTERNAL | | | External | | | LAB | | + + + + + + | PLT, | 311 | 140 - 440 | EXTERNAL | | | External | | | LAB | | + + + + + + | Neutrophils | 75.2 | 39 - 80 | EXTERNAL | | | %, | | | LAB | | | External | | | | | + + + + + + | Lymphocytes | 12.7 (A) | 24 - 44 | EXTERNAL | | | %, | | | LAB | | | External | | | | | + + + + + + | Monocytes | 8.0 | 0 - 12 | EXTERNAL | | | %, External | | | LAB | | + + + + + + | Eosinophils | 5.0 | 0 - 6 | EXTERNAL | | | %, | | | LAB | | | External | | | | | + + + + + + | RBC, | 3.20 (A) | 4.3 - 5.7 | EXTERNAL | | | External | | | LAB | | + + + + + + | MCV, | 88 | 81 - 99 | EXTERNAL | | | External | | | LAB | | + + + + + + | RDW, | 14.8 | 10.5 - 15 | EXTERNAL | | | External | | | LAB | | + + + + + + + +---------+ + + | Performing | Address | City/State/Zipcode | Phone Number | | Organization | | | | + +---------+ + + | EXTERNAL LAB | | | | + +---------+ + + External Lab: eGFR (03/18/2017) + +-------+ + + + | Component | Value | Ref Range | Performed | Pathologist | | | | | At | Signature | + +-------+ + + + | eGFR, | 82 | 60 - 99,999 | EXTERNAL | | | External | | | LAB | | + +-------+ + + + + + | Specimen | + + | Blood | + + + +---------+ + + | Performing | Address | City/State/Zipcode | Phone Number | | Organization | | | | + +---------+ + + | EXTERNAL LAB | | | | + +---------+ + + External Lab: Creatinine (03/18/2017) + + + + + + | Component | Value | Ref Range | Performed | Pathologist | | | | | At | Signature | + + + + + + | Creatinine, | 0.39 (A) | 0.7 - 1.18 | EXTERNAL | | | External | | | LAB | | + + + + + + + + | Specimen | + + | Blood | + + + +---------+ + + | Performing | Address | City/State/Zipcode | Phone Number | | Organization | | | | + +---------+ + + | EXTERNAL LAB | | | | + +---------+ + + documented in this encounter Visit Diagnoses Not on filedocumented in this encounter"
--- OUTSIDE RECORDS SUMMARY | ~2019-02-24 | XMS | Encounter Summary ---
Demographics + + + | Address | [address] | | | [place] [address] | + + + | Home Phone [...] | Organization | [facility] | | [...] Team Providers + +------+ + | Care Specimen Boss Name | Role | Phone | + +------+ + PCP | Unavailable | + +------+ + Encounter Details +--------+ + + + + | Date | Type | Department | Care Team | Description | +--------+ + + + + | 07/24/ | Hospital | [facility] | | | | 2009 - | Encounter | MED CTR CANCER | | | | | | CENTER [address] | | | | 08/21/ | | [place] | | | | 2009 | | [address] | | | | | | [phone] | | | +--------+ + + + [...] | | | | | [place] [address] | | | | | | [phone] | | | | | | | | +--------+---------+ + + + documented as of this encounter Visit Diagnoses Not on filedocumented in this encounter"
--- OUTSIDE RECORDS SUMMARY | ~2019-02-24 | XMS | Encounter Summary ---
Demographics + + + | Address | [address] | | | [place] [address] | + + + | Home Phone [...] | Organization | [facility] [...] Providers + +------+ + | Care State Manager Name | Role | Phone | + +------+ + | Jason Read | PCP | | | MD | | | + +------+ + Encounter Details +--------+---------+ + + + | Date | Type | Department | Care Team | Description | +--------+---------+ + + + | 12/14/ | Office | [facility] | Jorje Rutledge | Prostate cancer | | 2019 | Visit | [address] | [address] | ([facility]) (Primary Dx); | | | | [place], [place] | [address] [facility] | Preventative health | | | | [address] | [place] [address] | care | | | | [phone] | [phone] | | | | | | | [...] (chronic obstructive pulmonary dis ease) ([facility]), Depression, Dermatophytosis tinea capitis, Diverticulosis (01/2015), Essential hypertension, Foot fracture (02/2012), Gastritis (01/2015), GI bleed (01/2015), Heart murmur, Heartburn, Hiatal hernia (01/2015), History of rectal bleeding, Hypoxia, Insomnia, Internal bleeding (2017), Iron deficiency anemia, Kidney stone (2004), Lumbar disc herniation, Migra marcelino, 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 Respiratory Therapy Supplies [place] Please provide an O2 concentrator while [place] [...] 0.681 [facility] 11/25/17 7.17 [facility] 08/26/17 4.44 05/28/17 2.56 04/28/17 1.49 [...] This document was generated in part using [employer] voice recognition software. Although ever y effort is made to edit the content, liaison inspection laboratory assistant errors may occur. Occasional wrong word or [...] | | | | | [place] [address] | | | | | | [phone] | | | | | | | [...] - 1.030 | | | | [place], | | | | | | [facility]A, [...]
--- OUTSIDE RECORDS SUMMARY | ~2019-02-24 | XMS | Encounter Summary ---
Demographics + + + | Address | [address] | | | [place] [address] | + + + | Home Phone [...] | [facility] | | | and [...] Providers + +------+ + | Care Public Transit Bus Driver Name | Role | Phone | [...] + + | 05/31/ | Office | [facility] | Jorje Rutledge | Prostate cancer | | 2018 | Visit | [address] | [address] | (HCC) (Primary Dx); | | | | [place] | [address] | Incomplete bladder | | | | [address] | [place] [address] | emptying | | | | [phone] | [phone] | | | | | | | [...] history ofT2c or T3 adenocarcinoma the prostate, [place] 4+3 = 7, PSA 13.9, which was [...] or use drugs. Allergies Allergen Reactions Ipratropium [place] [facility] Other (See Comments) Reaction: Cough Penicillins [...] g by mouth Daily. 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 Occasional wrong word or [...] | | | | | | [place] [address] | | | | | | [phone] | | | | | | | [...] Expected: | | | | e | ([facility]) Incomplete | 08/23/2017, Expires: | | | [...]
--- OUTSIDE RECORDS SUMMARY | ~2019-02-24 | XMS | Encounter Summary ---
Demographics + + + | Address | [address] | | | [place] [address] | + + + | Home Phone [...] Organization | [facility] | | | and [...] Team Providers + +------+ + | Care Dining Car Waiter/Waitress Name | Role | Phone | + [...] | pulmonary | Becca Segura | [address] | | | | | nodule | [address] [place] | | | | | Procedures | [address] | [place], [place] | | | | | CT Chest wo | [place], | [address] | | | | | Contrast | [place] [address] | Phone: | | | | | | | [phone] | | | | | | | Fax: | | | | | | | [phone] | +--------+--------+ + + + + Encounter Details +--------+ + + + + | Date | Type | Department | Care Team | Description | +--------+ + + + + | 09/06/ | Hospital | [facility] | Offenstein, | Solitary pulmonary | | 2012 | Encounter | MED CTR XRAY [address] | Becca Segura MD | nodule | | | | [address] [place] | | | | | | [place] [address] | | | | | | [phone] | | | +--------+ + + + [...] patient per request of Dr. Castro. To campus receptionist to schedule appt and follow up [...] | | | | | | [place] [address] | | | | | | [phone] | | | | | | | [...] Performed At | + + + | [facility] Diagnostic Imaging | [place] | | Department [address] [place] [address] | [facility] | | [ rep ct street[address]] [ rep ct [facility] | | st zip] Signed | - IMAGING | | | | | Patient Name: DIEGO LUCAS Physician: | | | MAGDA. : 1935 Age: 76 Sex: M Unit #: [id number] | | | Exam Date: 09/06/12 Location: [facility] | | | Report #: [id number] Page: | | | %(RAD)RES..mtdd.print.filter("pg") of %(RAD) | | | RES..mtdd.print.filter("tpg") | | | | | | Accession Number: [id number] | | | CT CHEST WITHOUT CONTRAST [...] Transcribed | | | Date/Time: 09/06/2012 16:10 Paint Laboratory Technician: ALEXSANDRA | | | <<Signature on File>> | | | | | | Gurdeep Diaz MD09/07/12 0729 <Electronically signed by | | | Gurdeep Diaz MD> Gurdeep Diaz MD 09/06/12 | | | 1347 Paint Laboratory Technician: Scoreloop Phcmyakkukgpb25/16/13 1610 | | | Becca Castro MD | | + + + + + + + + | Performing | Address | City/State/Zipcode | Phone Number | | Organization | | | | + + + + + | [address] | [address] | Cater[place] | [phone] | | [facility] | | [address] | | | - IMAGING | | | | + + + + + documented in this encounter Visit Diagnoses + + | Diagnosis | + + | Solitary pulmonary nodule | + + documented in this encounter
--- OUTSIDE RECORDS SUMMARY | ~2019-02-24 | XMS | Encounter Summary ---
Demographics + + + | Address | [address] | | | [place] [address] | + + + | Home Phone [...] + | Organization | [facility] | [...] Team Providers + +------+ + | Care Jet Operator Name | Role | Phone | + +------+ + | Parviz Brar DO | PCP | | + +------+ + Encounter Details +--------+ + + + + | Date | Type | Department | Care Team | Description | +--------+ + + + + | 04/14/ | Hospital | [facility] | Offenstein, | | | 2013 | Encounter | MED CTR GENERIC OP | Becca Segura MD | | | | | CONV DEPT [address] | | | | | | [place], | | | | | | [place] [address] | | | | | | [phone] | | | +--------+ + + + [...] | | | | | [place] [address] | | | | | | [phone] | | | | | | | | +--------+---------+ + + + documented as of this encounter Visit Diagnoses Not on filedocumented in this encounter"
--- OUTSIDE RECORDS SUMMARY | ~2019-02-24 | XMS | Encounter Summary ---
Demographics + + + | Address | [address] | | | [place] [address] | + + + | Home Phone [...] + | Organization | [facility] | | [...] + +------+ + | Care Fast Food Fry Cook Name | Role | Phone | + +------+ + PCP | Unavailable | + +------+ + Encounter Details +--------+ + + + + | Date | Type | Department | Care Team | Description | +--------+ + + + + | 01/10/ | Hospital | [facility] | | | | 2007 - | Encounter | MED CTR CANCER | | | | | | CENTER [address] | | | | 01/21/ | | [place] | | | | 2007 | | [address] | | | | | | [phone] | | | +--------+ + + + [...] | | | | | [place] [address] | | | | | | [phone] | | | | | | | | +--------+---------+ + + + documented as of this encounter Visit Diagnoses Not on filedocumented in this encounter"
--- OUTSIDE RECORDS SUMMARY | ~2019-02-24 | XMS | Encounter Summary ---
Demographics + + + | Address | [address] | | | [place] [address] | + + + | Home Phone [...] + | Organization | [facility] [...] Team Providers + +------+ + | Care Front Services Agent Name | Role | Phone | [...] Gastrointest | [address], | | | | | inal | [place] [place] | [address] | | | | | hemorrhage, | [address] [place] | [place], | | | | | unspecified | [place], [place] | [place] [address] | | | | | gastrointest | [address] | Phone: | | | | | inal | Phone: | [phone] | | | | | hemorrhage | [phone] | Fax: | | | | | type | Fax: | [phone] | | | | | Procedures | [phone] | | | | | | [place] [facility] | | | | | [...] + + | 10/01/ | Telephone | [facility] | Froylan Werner MD | Other (request auth | | 2016 | | GASTROENTEROLOGY | [address] [place] | for SBCE (Pillcam)) | | | | [address] [place] | [address] [place] [facility] [place] | | | | | [address] [place] | [address] | | | | | [address] | | | | | | [phone] | | | +--------+ + + + [...] | | | | | [place] [address] | | | | | | [phone] | | | | | | | [...]
--- OUTSIDE RECORDS SUMMARY | ~2019-02-24 | XMS | Encounter Summary ---
Demographics + + + | Address | [address] | | | [place] [address] | + + + | Home Phone [...] + | Organization | [facility] | | | [...] Providers + +------+ + | Care Wet Chemistry Analyst Name | Role | Phone | [...] + | 10/27/ | Office | [facility] | Jorje Rutledge | Prostate cancer | | 2017 | Visit | [address] | [address] | ([facility]) (Primary Dx) | | | | [place], [place] | [facility] | | | | | [address] | [place] [address] | | | | | [phone] | [phone] | | | | | | | [...] PO) Take by mouth. 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 documented in [...] | | | | | [place] [address] | | | | | | [phone] | | | | | | | [...] 1.001 - 1.030 | | | | [place], | | | | | | [place], [...]
--- OUTSIDE RECORDS SUMMARY | ~2019-02-24 | XMS | Encounter Summary ---
Demographics + + + | Address | [address] | | | [place] [address] | + + + | Home Phone [...] + | Organization | [facility] | | | and [place] | + + + | Address | Unknown | + + + | Phone | Unavailable | + + + Support + + + + + | Name | Relationship | Address | Phone | + + + + + | Andrez Lucas | ECON | NA | | | | | [place] | | + + + + + | Candis Haney ECON | NA | | | | | FILEMON LIND | | + + + + + Care Team Providers + +------+ + | Care Tubular Splitting Machine Tender Name | Role | Phone [...] + + | 07/01/ | Office | [facility] | Jorje Rutledge | Prostate cancer | | 2016 | Visit | [address] | [address] | ([facility]) (Primary Dx); | | | | [place], [place] | [facility] | Preventative health | | | | [address] | [place] [address] | care | | | | [phone] | [phone] | | | | | | | [...] is a 79 y.o. male patient of Parivz Brar being seen today for follow-up Prostate cancer. He is a very pleasant gentleman who was a patient of Dr. Mercedez Barkley in [place] for many years. He originally had a [...] SVT (supraventricular tachycardia) (01/2014); Depression; Prostate cancer ([facility]) (2007); COPD (chronic obstructive pulmonary disease) [...] PO) Take by mouth. Respiratory Therapy Supplies [facility] Please provide an O2 concentrator while Diego [...] have not thoroughly proofread this note, and line closer erro rs may occur. documented in th [...] | | | | | [place] [address] | | | | | | [phone] | | | | | | | [...] 12/16/2015 | | | | e | ([facility]) | (Approximate), | | | | [...] CONF | e | 8:03 AM | ([facility]) | procedure are in the | [...] 1.001 - 1.030 | | | | [place], | | | | | | [place], [...]
--- OUTSIDE RECORDS SUMMARY | ~2019-02-24 | XMS | Encounter Summary ---
Demographics + + + | Address | [address] | | | [place] [address] | + + + | Home Phone | | + + + | Preferred Language | Unknown | + + + | Marital Status | | + + + | Sabianist Affiliation | [id number] | + + + | Race | Unknown | + + + | Ethnic Group | Unknown | + + + Author + + + | Author | [facility] | | | and [place] | + + + | Organization | [facility] | | | and [place] [...] Team Providers + +------+ + | Care Cardiovascular Or Nurse Name | Role | Phone | [...] + + | 08/18/ | Office | [facility] | Offenstein, | COPD (chronic | | 2013 | Visit | PULMONARY [address] | Becca Segura MD | obstructive | | | | [place], | | pulmonary disease) | | | | [place] [address] | | (Primary Dx); | | | | [phone] | | 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 He went to [place] to visit his sister and had a [...] He is currently on 2 LPM at [facility]. He reports good compliance. He does not have symptoms of heartburn or reflux. Past Medical History Past Medical History Diagnosis Date COPD (chronic obstructive pulmonary disease) (HCC) Peptic ulcer disease with upper GI bleed Benign prostatic hypertrophy Prostate cancer (HCC) s/p radiation treatment and on hormonal treatment with Lupron Osteoarthritis Heartburn Pulmonary nodules Cataracts, bilateral Pneumonia 05/2012 hospitalized [facility] Shoulder fracture 02/2012 Foot fracture [...] home. No other animal exposures.Grew up in [place]. Then lived in [place]. Then move d to [place]. In the service lived in [facility] and [place]. No recent travel. Allergies: Allergies [...] into the lungs nightly. Respiratory Therapy Supplies [facility] Please provide an O2 concentrator [...] made to ensure accuracy; however, inadvertent computerized oracle programmer analyst errors may be pre sent. Electronically signed [...] | | | | | [place] [address] | | | | | | [phone] | | | | | | | [...]
--- OUTSIDE RECORDS SUMMARY | ~2019-02-24 | XMS | Encounter Summary ---
Demographics + + + | Address | [address] | | | [place] [address] | + + + | Home Phone [...] | Organization | [facility] | [...] Team Providers + +------+ + | Care Asset Recovery Specialist Name | Role | Phone | + +------+ + PCP | Unavailable | + +------+ + Encounter Details +--------+ + + + + | Date | Type | Department | Care Team | Description | +--------+ + + + + | 12/01/ | Abstract | [place] [facility] | [place], | | | 2011 | | Conversion Location | [place] [address] | | | | | [phone] | [place] | | | | | | [phone] | | | | | | | [...] | | | | | [place] [address] | | | | | | [phone] | | | | | | | | +--------+---------+ + + + documented as of this encounter Visit Diagnoses Not on filedocumented in this encounter"
--- OUTSIDE RECORDS SUMMARY | ~2019-02-24 | XMS | Encounter Summary ---
Demographics + + + | Address | [address] | | | [place] [address] | + + + | Home Phone [...] | Organization | [facility] [...] Team Providers + +------+ + | Care Maintenance Department Manager Name | Role | Phone | [...] Urology | Diagnoses | | [facility] | | | Services | | Prostate | Matthew, | Urology [address] | | | Required | | cancer (HCC) | Becca Segura, | [address] | | | | | | MD [address] | [place], | | | | | | [address] | [place] [address] | | | | | | [place], | Phone: | | | | | | [place] [address] | [phone] | | | | | | | Fax: | | | | | | | [phone] | +--------+ + + + + + Encounter Details +--------+---------+ + + + | Date | Type | Department | Care Team | Description | +--------+---------+ + + + | 04/03/ | Office | [facility] | Jorje Rutledge | Preventative health | | 2016 | Visit | [address] | [address] | care (Primary Dx); | | | | [place], [place] | [address] [facility] | Prostate cancer | | | | [address] | [place] [address] | ([facility]) | | | | [phone] | [phone] | | | | | | | [...] a patient of Dr. Mercedez Barkley in [place] for many y ears. He originally had [...] have not thoroughly proofread this note, and director of psychiatry erro rs may occur. documented in th [...] | | | | | [place] [address] | | | | | | [phone] | | | | | | | [...]
--- OUTSIDE RECORDS SUMMARY | ~2019-02-24 | XMS | Encounter Summary ---
Demographics + + + | Address | [address] | | | [place] [address] | + + + | Home Phone [...] Organization | [facility] [...] Providers + +------+ + | Care Maintenance Worker Swimming Pool Name | Role | Phone | + +------+ + PCP | Unavailable | + +------+ + Encounter Details +--------+ + + + + | Date | Type | Department | Care Team | Description | +--------+ + + + + | 06/24/ Hospital | [facility] | Offenstein, | | | 2012 | Encounter | MED CTR XRAY [address] | Becca Segura MD | | | | | [place] | | | | | | [place] [address] | | | | | | [phone] | | | +--------+ + + + [...] | | | | | [place] [address] | | | | | | [phone] | | | | | | | | +--------+---------+ + + + documented as of this encounter Visit Diagnoses Not on filedocumented in this encounter"
--- OUTSIDE RECORDS SUMMARY | ~2019-02-24 | XMS | Encounter Summary ---
Demographics + + + | Address | [address] | | | [place] [address] | + + + | Home Phone | | + + + | Preferred Language | Unknown | + + + | Marital Status | | + + + | Synagogue Affiliation | PRE | + + + | Race | White | + + + | Ethnic Group | Not or | + + + Author + + + | Author | [facility] | + + + | Organization | [facility] | + + + | Address | Unknown | + + + | Phone | Unavailable | + + + Support + + +---------+ + | Name | Relationship | Address | Phone | + + +---------+ + | Andrez Lucas | ECON | Unknown | Unavailable | + + +---------+ + Care Team Providers + +------+ + | Care Geophysics Teacher Name | Role | Phone | + +------+ + | aPrviz Brar DO | PCP | | + [...] | | | | | | Rd [facility] | [place], [place] | | | | | | Hospital | [address] | | | | | | [place], [place] | Phone: | | | | | | [address] | [phone] | | | | | | Phone: | Fax: | | | | | | [phone] | [phone] | +--------+--------+ + + + + Encounter Details +--------+---------+ + + + | Date | Type | Department | Care Team | Description | +--------+---------+ + + + | 06/20/ | Office | Otolaryngology | Desiree Easton, | Epistaxis (Primary | | 2012 | Visit | Laryngology Services | MD | Dx) | | | | at [facility] [address] | | | | | | [place], | | | | | | [place] [address] | | | | | | [phone] | | | +--------+---------+ + + + [...] 06/20/2012 2:27 PM PDTThank you for choosing [facility] Department of Otolaryngology for your health care needs. If you need to speak to an ENT physician after normal business hours, please call [phone] and ask to have the ENT phys davey exploration geologist paged. No nose blowing for two weeks. Saline nasal spray, 2 sprays 3-4 times daily documented in this encounter Progress Notes Desiree Easton MD - 06/20/2012 2:21 PM PDTFormatting of this note might be different fr om the original. PATIENT: Diego Lucas [facility] MR#: [id number] : 1935 REQUESTING PROVIDER: No Referring Provider Per Patient NO REFERRING PROVIDER PER PT PRIMARY CARE PROVIDER: Parviz Brar DO CLINIC: [facility] CHIEF COMPLAINT: Chief Complaint Patient presents with Nose bleed HPI: Diego Lucas is a 76 y.o. male who presents to the [facility] with [...] severe pain. oxymetazoline 0.05 % Nasal Aerosol, [place] Instill 2 Sprays into each nostril every six hours as needed (Epistaxis). Use for only 3 days. polyethylene glycol 17 gram/dose Oral Powder Take 17 g by mouth once daily. sodium chloride 0.65 % Nasal Aerosol, [place] Instill 2 Sprays in nose every two [...] well. I have recommended that he use Hubbard [place] or a formulary equiv alent, 2 sprays [...] Lucas [facility] [place] [facility]. He plans to re turn to [place] with his after this. I would be [...] | + +--------+ + + + | [place] NASAL/SINUS | Routin | 06/20/2012 | Epistaxis [...]
--- OUTSIDE RECORDS SUMMARY | ~2019-02-24 | XMS | Encounter Summary ---
Demographics + + + | Address | [address] | | | [place] [address] | + + + | Home Phone [...] | [facility] [...] Team Providers + +------+ + | Care Preschool Director Name | Role | Phone | + +------+ + | Parviz Brar DO | PCP | | + +------+ + Encounter Details +--------+---------+ + + + | Date | Type | Department | Care Team | Description | +--------+---------+ + + + | 12/10/ | Office | [facility] | Offenstein, | COPD (chronic | | 2015 | Visit | PULMONARY [address] | Billy Segura MD | obstructive | | | | [place], | | pulmonary disease) | | | | [place] [address] | | (Primary Dx); | | | | [phone] | | 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 Stop the Qvar. Start on Breo 1 [...] tax they are trying to institute in [place]. Roberto Carlos michael did find out he [...] He is currently on 2 LPM at [facility]. He reports good compliance. Past Medical History Past Medical History Diagnosis Date Peptic ulcer disease with upper GI bleed Benign prostatic hypertrophy Osteoarthritis Heartburn Pulmonary nodules Shoulder fracture 02/2012 Foot fracture 02/2012 SVT (supraventricular tachycardia) 01/[address] Wilder for ablation Depression Prostate cancer (HCC) 2007 s/p radiation treatment and on hormonal treatment with Lupron; DR JULIAN [place] COPD (chronic obstructive pulmonary disease) ([facility]) DR BILLY ARAUJO Pneumonia 05/2012 hospitalized [facility] Heart murmur DR MARIAA OLIVERA Cataracts, bilateral [...] Laterality: N/A; Surgeon: Jennifer Wilder MD; Location: [facility] ELECTROP[facility]OLOG[facility] Social History: History Social History Marital [...] No other animal exposures. Grew up in [place]. Then lived in [place]. Then moved to [place]. In the service lived i [facility] and [place]. No recent travel. Allergies: Allergies [...] made to ensure accuracy; however, inadvertent computerized fluorescent lamp replacer errors may be pre sent. documented in [...] | | | | | [place] [address] | | | | | | [phone] | | | | | | | [...]
--- OUTSIDE RECORDS SUMMARY | ~2019-02-24 | XMS | Encounter Summary ---
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 He went to [place] to visit his sister and had a [...] He is currently on 2 LPM at [facility]. He reports good compliance. He does not have symptoms of heartburn or reflux. Past Medical History Past Medical History Diagnosis Date COPD (chronic obstructive pulmonary disease) (HCC) Peptic ulcer disease with upper GI bleed Benign prostatic hypertrophy Prostate cancer (HCC) s/p radiation treatment and on hormonal treatment with Lupron Osteoarthritis Heartburn Pulmonary nodules Cataracts, bilateral Pneumonia 05/2012 hospitalized [facility] Shoulder fracture 02/2012 Foot fracture 02/2012 Past [...] home. No other animal exposures.Grew up in [place]. Then lived in [place]. Then move d to [place]. In the service lived in [facility] and [place]. No recent travel. Allergies: Allergies Allergen Reactions [...] made to ensure accuracy; however, inadvertent computerized corporate administrator errors may be pre sent. Electronically signed [...] | | | | | [place] [address] | | | | | | [phone] | | | | | | | [...]
--- OUTSIDE RECORDS SUMMARY | ~2019-02-24 | XMS | Encounter Summary ---
Demographics + + + | Address | [address] | | | [place] [address] | + + + | Home Phone [...] | Organization | [facility] | | | and [place] [...] Team Providers + +------+ + | Care Product Safety Head Name | Role | Phone | [...] | | | | [address] | [place] | | | | | [place], [place] | [address] | | | | | [address] | [phone] | | | | | [phone] | | | +--------+ + + + [...] | | | | | [place] [address] | | | | | | [phone] | | | | | | | [...] TR | | | Vmax: 3.24 m/s Preforming Machine Operator: MARIUM Authenticated by: Sailaja | | | [...] cmLVIDd: 4.16 cmLVPWd: 0.99 cmLVOT Area: 3.08 [id number] Diam: | | 1.98 cm%FS: 18.59 %EF(Teich): [...] mlLAESV Index (A-L): 27.33 ml/m2LAAs A2C: 18.95 [id number] A-L A2C: 56.88 | | mlLALs A2C: 5.36 cmLAAs A4C: 17.45 [id number] A-L A4C: 50.86 mlLALs A4C: 5.08 | | cmRAAs: 13.90 [id number] A-L: 34.51 mlRAESV MOD: 32.71 mlRALs: 4.75 cmTAPSE: | | 1.79 cmAV maxP.58 mmHgAV meanP.29 mmHgAV Vmax: 1.62 m/Cecy Vmean: 1.18 | | m/Cecy VTI: 31.29 cmAVA Vmax: 3.05 cm2AVA (VTI): 3.05 cd7ALKH Vmax: 0.00 | | cm2/m2AVAI (VTI): 0.00 cm2/m2LVOT maxP.38 mmHgLVOT meanP.72 mmHgLVSI | | Dopp: 47.36 ml/m2LVSV Dopp: 95.67 mlLVOT Vmax: 1.61 m/sLVOT Vmean: 1.10 m/sLVOT | | VTI: 30.97 cmMV A Justin: 0.89 m/sMV DecT: 265.07 msMV E Justin: 0.58 m/sMV E/A Ratio: | | 0.65MV PHT: 76.87 msMVA By PHT: 2.86 [id number] e': 0.04 m/sSeptal E/e': | | 12.88Lateral e': 0.09 m/sLateral E/e': 6.53RAP: 5 mmHgRVSP: 47.14 mmHgTR maxPG: | | 42.14 mmHgTR Vmax: 3.24 m/s Preforming Machine Operator: DHAuthenticated by: Sailaja Rocha | | Date/Time: [...] |TR Vmax: 3.24 m/s | | | |Preforming Machine Operator: | |Authenticated by: Sailaja Niño | |Report [...]
--- OUTSIDE RECORDS SUMMARY | ~2019-02-24 | XMS | Encounter Summary ---
Demographics + + + | Address | [address] | | | [place] [address] | + + + | Home Phone [...] | [facility] [...] Team Providers + +------+ + | Care Border Patrol Officer Name | Role | Phone | [...] [address] | | | | | [place], [place] | [address] | | | | | [address] | [place] [address] | | | | | [phone] | [phone] | | | | | | | [...] | | | | | [place] [address] | | | | | | [phone] | | | | | | | [...] + | REFERENCE LAB | [address] | [place] [address] | [phone] | | [facility] | | | | + + + + + | REFERENCE LAB | [address] | [place] [address] | [phone] | | [facility] | | | | [...] + + | REFERENCE LAB | [address] [facility] | [place] [address] | [phone] | | [facility] | | | | + + + + + | REFERENCE LAB | [address] [facility] [facility] | [place] [address] | [phone] | | [facility] | | | | [...] + | REFERENCE LAB | [address] | [place] [address] | [phone] | | [facility] | | | | + + + + + | REFERENCE LAB | [address] | [place] [address] | [phone] | | [facility] | | | | [...] + + | REFERENCE LAB | [address] [facility] | [place] [address] | [phone] | | [facility] | | | | + + + + + | REFERENCE LAB | [address] [facility] | [place] [address] | [phone] | | [facility] | | | | [...] | [address] | [place] [address] | [phone] | | [facility] | | | | + + + + + | REFERENCE LAB | [address] [facility] | [place] [address] | [phone] | | [facility] | | | | [...] + | REFERENCE LAB | [address] | [place] [address] | [phone] | | [facility] | | | | + + + + + | REFERENCE LAB | [address] | [place] [address] | [phone] | | [facility] | | | | + + + + + documented in this encounter Visit Diagnoses Not on filedocumented in this encounter"
--- OUTSIDE RECORDS SUMMARY | ~2019-02-24 | XMS | Encounter Summary ---
Demographics + + + | Address | [address] | | | [place] [address] | + + + | Home Phone [...] Organization | 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
--- OUTSIDE RECORDS SUMMARY | ~2019-02-24 | XMS | Encounter Summary ---
Demographics + + + | Address | [address] | | | [place] [address] | + + + | Home Phone [...] Organization | [facility] | | | and [place] | [...] Team Providers + +------+ + | Care Code Clerk Name | Role | Phone | + +------+ + | Parviz Brar DO | PCP | | + +------+ + Encounter Details +--------+ + + + + | Date | Type | Department | Care Team | Description | +--------+ + + + + | 04/08/ | Abstract | [facility] | Jorje Rutledge | | | 2016 | | [address] | MD [address] | | | | | [place], [place] | [address] | | | | | [address] | [place] [address] | | | | | [phone] | [phone] | | | | | | | [...] | | | | | [place] [address] | | | | | | [phone] | | | | | | | | +--------+---------+ + + + documented as of this encounter Procedures + +--------+ + + + | Procedure Name | Priori | Date/Time | Associated Diagnosis | Comments | | | ty | | | | + +--------+ + + + | EXTERNAL LAB: [facility] | Routin | 04/04/2015 | | Results for this | | SCREEN | e | 9:15 AM | | procedure are in the | | | | PST | | results section. | + +--------+ + + + documented in this encounter Results External Lab: [facility], Screen (04/04/2015 9:15 AM PST) + +-------+ + + + | Component | Value | Ref Range | Performed | Pathologist | | | | | At | Signature | + +-------+ + + + | PSA, | 3.39 | 0 - 4 | [facility] | External | | | [facility] | | | | | | [facility] [...] | [facility] | [address] | [place] | [phone] | | [facility] | | [address] | | | - LABORATORY | | | | + + + + + documented in this encounter Visit Diagnoses Not on filedocumented in this encounter"
--- OUTSIDE RECORDS SUMMARY | ~2019-02-24 | XMS | Encounter Summary ---
Demographics + + + | Address | [address] | | | [place] [address] | + + + | Home Phone [...] | Organization | [facility] [...] Providers + +------+ + | Care Electric Switch Repairer Name | Role | Phone | + +------+ + PCP | Unavailable | + +------+ + Encounter Details +--------+ + + + + | Date | Type | Department | Care Team | Description | +--------+ + + + + | 06/24/ Hospital | [facility] | [place], | | | 2012 | Encounter | MED CTR XRAY [address] | Becca Segura MD | | | | | [place] | | | | | | [place] [address] | | | | | | [phone] | | | +--------+ + + + [...] | | | | | [place] [address] | | | | | | [phone] | | | | | | | | +--------+---------+ + + + documented as of this encounter Visit Diagnoses Not on filedocumented in this encounter"
--- OUTSIDE RECORDS SUMMARY | ~2019-02-24 | XMS | Encounter Summary ---
Demographics + + + | Address | [address] | | | [place] [address] | + + + | Home Phone [...] Organization | [facility] | | | and [place] [...] + + + + + | Cnadis BOWLING | NA | | | | | FILEMON LIND | | + + + + + Care Team Providers + +------+ + | Care Flight Surgeon Name | Role | Phone | + [...] [address] [place] | | | | | [address] | [place] [address] | | | | | [phone] | [phone] | | | | | | | [...] | | | | | [place] [address] | | | | | | [phone] | | | | | | | [...] + | REFERENCE LAB | [address] | [place] [address] | [phone] | | [facility] | | | | + + + + + | REFERENCE LAB | [address] | [place] [address] | [phone] | | [facility] | | | | [...] + + + | REFERENCE LAB | [address] | [place] [address] | [phone] | | [facility] | | | | + + + + + | REFERENCE LAB | [facility] | [place] [address] | [phone] | | [facility] | | | | + + + + + documented in this encounter Visit Diagnoses Not on filedocumented in this encounter"
--- OUTSIDE RECORDS SUMMARY | ~2019-02-24 | XMS | Encounter Summary ---
Demographics + + + | Address | [address] | | | [place] [address] | + + + | Home Phone [...] + | Organization | [facility] | | [...] Team Providers + +------+ + | Care Corporate Quality Engineer Name | Role | Phone | + +------+ + | Parviz Brar DO | PCP | | + +------+ + Encounter Details +--------+ + + + + | Date | Type | Department | Care Team | Description | +--------+ + + + + | 06/16/ | Hospital | [facility] | Conversion | Pain | | 2017 | Encounter | CONVERSION [address] | Transaction, | | | | | [address] | Provider Unknown | | | | | [place], [place] | [phone] | | | | | [address] | | | | | | [phone] | | | +--------+ + + + [...] | | | | | [place] [address] | | | | | | [phone] | | | | | | | [...]
--- OUTSIDE RECORDS SUMMARY | ~2019-02-24 | XMS | Encounter Summary ---
Demographics + + + | Address | [address] | | | [place] [address] | + + + | Home Phone | | + + + | Preferred Language | Unknown | + + + | Marital Status | | + + + | Hindu Affiliation | 1076 | + + + | Race | Unknown | + + + | Ethnic Group | Unknown | + + + Author + + + | Author | [facility] | | | and [place] | + + + | Organization | [facility] | | | and [...] Team Providers + +------+ + | Care Stopper Setter Name | Role | Phone | + +------+ + PCP | Unavailable | + +------+ + Encounter Details +--------+ + + + + | Date | Type | Department | Care Team | Description | +--------+ + + + + | 07/24/ | Hospital | [facility] | | | | 2009 - | Encounter | MED CTR CANCER | | | | | | CENTER [address] | | | | 08/21/ | | [place] | | | | 2009 | | [address] | | | | | | [phone] | | | +--------+ + + + [...] | | | | | [place] [address] | | | | | | [phone] | | | | | | | | +--------+---------+ + + + documented as of this encounter Visit Diagnoses Not on filedocumented in this encounter"
--- OUTSIDE RECORDS SUMMARY | ~2019-02-24 | XMS | Encounter Summary ---
Demographics + + + | Address | [address] | | | [place] [address] | + + + | Home Phone | | + + + | Preferred Language | Unknown | + + + | Marital Status | | + + + | Anglican Affiliation | 1076 | + + + | Race | Unknown | + + + | Ethnic Group | Unknown | + + + Author + + + | Author | [facility] | | | and [place] | + + + | Organization | [facility] | | [...] Team Providers + +------+ + | Care Clay Washer Name | Role | Phone | + [...] Urology | Diagnoses | | [facility] | | | Services | | Prostate | Matthew, | Urology [address] | | | Required | | cancer (HCC) | Becca Segura, | [address] | | | | | | MD [address] | [place], | | | | | | [address] | [place] [address] | | | | | | [place], | Phone: | | | | | | [place] [address] | [phone] | | | | | | | Fax: | | | | | | | [phone] | +--------+ + + + + + Encounter Details +--------+---------+ + + + | Date | Type | Department | Care Team | Description | +--------+---------+ + + + | 12/30/ | Office | [facility] | Jojre Rutledge | Prostate cancer | | 2016 | Visit | [address] | MD [address] | ([facility]) (Primary Dx) | | | | [place], [place] | [address] [facility] | | | | | [address] | [place] [address] | | | | | [phone] | [phone] | | | | | | | [...] a patient of Dr. Mercedez Barkley in [place] for many years. 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 documented in th [...] | | | | | [place] [address] | | | | | | [phone] | | | | | | | [...] 1.001 - 1.030 | | | | [place], | | | | | | [facility]A, [...]
--- OUTSIDE RECORDS SUMMARY | ~2019-02-24 | XMS | Clinical Summary ---
Demographics + + + | Address | [address] | | | [place] [address] | + + + | Home Phone | | + + + | Preferred Language | Unknown | + + + | Marital Status | Unknown | + + + | Sikhism Affiliation | Unknown | + + + | Race | Unknown | + + + | Ethnic Group | Unknown | + + + Author + + + | Author | [email or web address] (Historical as of | | | 10-08-18) | + + + | Organization | [email or web address] (Historical as of | | | 10-08-18) [...] Team Providers + +------+ + | Care Strip Picker Name | Role | Phone | + [...] +------+-------+ + | MEDICARE | MEDICA | [id number] | | | [address] | | | RE | | | | [place] [address] | | | IP-OP | | | | | + +--------+ +------+-------+ + | COMMERCIAL OTHER | TRANSA | [id number] | | | | | | [place] [...] | 1936 | [phone] | [place] [address] | | | leslie | | | [phone] | | + +--------+ +--------+ + +
--- OUTSIDE RECORDS SUMMARY | ~2019-02-24 | XMS | Encounter Summary ---
Demographics + + + | Address | [address] | | | [place] [address] | + + + | Home Phone | | + + + | Preferred Language | Unknown | + + + | Marital Status | | + + + | Restoration Affiliation | 1076 | + + + | Race | Unknown | + + + | Ethnic Group | Unknown | + + + Author + + + | Author | [facility] | | | and [place] | + + + | Organization | [facility] | | | and [place] [...] Team Providers + +------+ + | Care Regional Education Manager Name | Role | Phone | [...] + + | 04/14/ | Office | [facility] | [place], | COPD (chronic | | 2013 | Visit | PULMONARY [address] | Becca Segura MD | obstructive | | | | [place], | | pulmonary disease) | | | | [place] [address] | | (HCC) (Primary Dx); | | | | [phone] | | Nocturnal hypoxemia; | | | [...] Critical Care [facility] [address] [place], [address] HPI Diego Lucas is a 77 y.o. [...] on level ground. 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 {He was not walking for a while due to snow, but is walking again now that the weat her is better. He does cough chronically, and does produce mucous, though this has decreased alot. He has not had hemoptysis. He has been evaluated for nocturnal oxygen and does use it. He is currently on 1.5 LPM at [facility]. He was lasted tested on 2L in [...] home. No other animal exposures.Grew up in [place]. Then lived in [place]. Then move d to [place]. In the service lived in [place] and [place]. No recent travel. Allergies: Allergies [...] and is going back to see the car hiker. GI: Denies heartburn, nausea, vomiting, and abdominal [...] breath sounds are diminished bilaterally, no wheezes, craps dealer ckles or rhonchi Chest Wall: No deformity [...] again and going to visit family in [place] for about a month. I encouraged him to do so, as he has had a rough year. 2. 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 Based on last overnight oximetry, we will increase to 2 L. I advised he should contact [facility] about having oxygen arranged at his destination for [place] trip. 3. Abnormal CT scan - Last [...] 4. Arrange for oxygen at destination for [employer] trip. He was advised to call if new pulmonary symptoms were to develop. Return to clinic in 3 months, or sooner with concerns. CC: Parviz rBar Portions of this report were transcribed using voice recognition software. Every effort wa s made to ensure accuracy; however, inadvertent computerized advertising inserter errors may be pre sent. documented in [...] ROM[place] | | | | | | [place] [address] | | | | | | [phone] | | | | | | | [...] | 04/14/2014 | | | | | ([facility]) | | + + +--------+ + + [...]
--- OUTSIDE RECORDS SUMMARY | ~2019-02-24 | XMS | Encounter Summary ---
Demographics + + + | Address | [address] | | | [place] [address] | + + + | Home Phone [...] | [facility] [...] Providers + +------+ + | Care Optical Instruments Supervisor Name | Role | Phone | [...] [address] | | | | | [place], [place] | [address] [facility] | | | | | [address] | [place] [address] | | | | | [phone] | [phone] | | | | | | | [...] | | | | | [place] [address] | | | | | | [phone] | | | | | | | | +--------+---------+ + + + documented as of this encounter Visit Diagnoses Not on filedocumented in this encounter"
--- OUTSIDE RECORDS SUMMARY | ~2019-02-24 | XMS | Encounter Summary ---
Demographics + + + | Address | [address] | | | [place] [address] | + + + | Home Phone [...] Organization | [facility] [...] Team Providers + +------+ + | Care Recreation Therapy Aides Teacher Name | Role | Phone | + +------+ + PCP | Unavailable | + +------+ + Encounter Details +--------+ + + + + | Date | Type | Department | Care Team | Description | +--------+ + + + + | 12/19/ | Hospital | [facility] | | | | 2009 - | Encounter | MED CTR CANCER | | | | | | CENTER [address] | | | | 12/22/ | | [place] | | | | 2009 | | [address] | | | | | | [phone] | | | +--------+ + + + [...] | | | | | | [place] [address] | | | | | | [phone] | | | | | | | | +--------+---------+ + + + documented as of this encounter Visit Diagnoses Not on filedocumented in this encounter"
--- OUTSIDE RECORDS SUMMARY | ~2019-02-24 | XMS | Encounter Summary ---
Demographics + + + | Address | [address] | | | [place] [address] | + + + | Home Phone [...] Organization | [facility] | | | and [...] Team Providers + +------+ + | Care Property Management Accountant Name | Role | Phone | + [...] [address] | | | | | [place], [place] | [address] [facility] | | | | | [address] | [place] [address] | | | | | [phone] | [phone] | | | | | | | [...] | | | | | [place] [address] | | | | | | [phone] | | | | | | | | +--------+---------+ + + + documented as of this encounter Visit Diagnoses Not on filedocumented in this encounter"
--- OUTSIDE RECORDS SUMMARY | ~2019-02-24 | XMS | Encounter Summary ---
Demographics + + + | Address | [address] | | | [place] [address] | + + + | Home Phone [...] + | Organization | [facility] [...] Team Providers + +------+ + | Care Business Job Titles Name | Role | Phone | + +------+ + | Parviz Brar DO | PCP | | + +------+ + Encounter Details +--------+ + + + + | Date | Type | Department | Care Team | Description | +--------+ + + + + | 06/16/ | Hospital | [facility] | Conversion | Pain | | 2017 | Encounter | CONVERSION [address] | Transaction, | | | | | [address] | Provider Unknown | | | | | [place], [place] | [phone] | | | | | [address] | | | | | | [phone] | | | +--------+ + + + [...] | | | | | [place] [address] | | | | | | [phone] | | | | | | | [...]
--- OUTSIDE RECORDS SUMMARY | ~2019-02-24 | XMS | Encounter Summary ---
Demographics + + + | Address | [address] | | | [place] [address] | + + + | Home Phone [...] + | Author | [facility] | | | and [place] | + + + | Organization | [facility] | | | [...] Team Providers + +------+ + | Care Ward Service Supervisor Name | Role | Phone | [...] [address] [place] | | | | | [address] | [place] [address] | | | | | [phone] | [phone] | | | | | | | [...] | | | | | [place] [address] | | | | | | [phone] | | | | | | | [...] + | REFERENCE LAB | [address] | [place] [address] | [phone] | | [facility] | | | | + + + + + | REFERENCE LAB | [address] | [place] [address] | [phone] | | [facility] | | | | [...] + + + | REFERENCE LAB | [address] | [place] [address] | [phone] | | [facility] | | | | + + + + + | REFERENCE LAB | [facility] | [place] [address] | [phone] | | [facility] | | | | + + + + + documented in this encounter Visit Diagnoses Not on filedocumented in this encounter"
--- OUTSIDE RECORDS SUMMARY | ~2019-02-24 | XMS | Encounter Summary ---
Demographics + + + | Address | [address] | | | [place] [address] | + + + | Home Phone [...] | Organization | [facility] | | [...] Providers + +------+ + | Care Senior Manufacturing Supervisor Name | Role | Phone | + +------+ + PCP | Unavailable | + +------+ + Encounter Details +--------+ + + + + | Date | Type | Department | Care Team | Description | +--------+ + + + + | 12/19/ | Hospital | [facility] | | | | 2009 - | Encounter | MED CTR CANCER | | | | | | CENTER [address] | | | | 12/22/ | | [place] | | | | 2009 | | [address] | | | | | | [phone] | | | +--------+ + + + [...] | | | | | [place] [address] | | | | | | [phone] | | | | | | | | +--------+---------+ + + + documented as of this encounter Visit Diagnoses Not on filedocumented in this encounter"
--- OUTSIDE RECORDS SUMMARY | ~2019-02-24 | XMS | Encounter Summary ---
Demographics + + + | Address | [address] | | | [place] [address] | + + + | Home Phone [...] | Organization | [facility] [...] Team Providers + +------+ + | Care Vice President Client Services Name | Role | Phone | + +------+ + PCP | Unavailable | + +------+ + Encounter Details +--------+ + + + + | Date | Type | Department | Care Team | Description | +--------+ + + + + | 07/17/ | Hospital | [facility] | [place], | | | 2011 | Encounter | MED CTR XRAY [address] | Becca Segura MD | | | | | [address] | | | | | | [place] [address] | | | | | | [phone] | | | +--------+ + + + [...] | | | | | [place] [address] | | | | | | [phone] | | | | | | | [...] Performed At | + + + | [facility] | [facility] | | [address] [facility] | [facility] | | CHEST CT WITHOUT CONTRAST, 17 [...] Transcribed | | | Date/Time: 09/09/2011 14:01 Professor Of Theatre: | | | <Electronically Signed by Krzysztof Jewell MD> 09/10/11 0719 | | + + + + + | Procedure Note | + + | [facility] Conversion - 03/31/2013 5:43 PM [facility] | | Diagnostic Imaging Department | | [address] [facility] | | | | | | | [...] | Transcribed Date/Time: 09/09/2011 14:01 | | Professor Of Theatre: | | <Electronically Signed by Krzysztof Jewell [...]
--- OUTSIDE RECORDS SUMMARY | ~2019-02-24 | XMS | Encounter Summary ---
Demographics + + + | Address | [address] | | | [place] [address] | + + + | Home Phone [...] Organization | [facility] [...] Team Providers + +------+ + | Care Astronomy Professor Name | Role | Phone | + +------+ + | Parviz Brar DO | PCP | | + +------+ + Encounter Details +--------+ + + + + | Date | Type | Department | Care Team | Description | +--------+ + + + + | 06/16/ | Hospital | [facility] | Conversion | Pain | | 2017 | Encounter | CONVERSION [address] | Transaction, | | | | | [address] | Provider Unknown | | | | | [place], [place] | [phone] | | | | | [address] | | | | | | [phone] | | | +--------+ + + + [...] | | | | | [place] [address] | | | | | | [phone] | | | | | | | [...]
--- OUTSIDE RECORDS SUMMARY | ~2019-02-24 | XMS | Encounter Summary ---
Demographics + + + | Address | [address] | | | [place] [address] | + + + | Home Phone [...] Organization | [facility] | | | and [place] [...] Providers + +------+ + | Care Manager Pathology Name | Role | Phone | + [...] + + | 01/27/ | Refill | [facility] | Jorje Rutledge | Medication Refill | | 2019 | | [address] | MD [address] | | | | | [place], [place] | [address] [facility] | | | | | [address] | [place] [address] | | | | | [phone] | [phone] | | | | | | | [...] | | | | | [place] [address] | | | | | | [phone] | | | | | | | | +--------+---------+ + + + documented as of this encounter Visit Diagnoses Not on filedocumented in this encounter"
--- OUTSIDE RECORDS SUMMARY | ~2019-02-24 | XMS | Encounter Summary ---
Demographics + + + | Address | [address] | | | [place] [address] | + + + | Home Phone [...] Organization | [facility] [...] Providers + +------+ + | Care Retail Equipment Associate Name | Role | Phone | + [...] [address] | | | | | [place], [place] | [address] | | | | | [address] | [place] [address] | | | | | [phone] | [phone] | | | | | | | [...] | | | | | [place] [address] | | | | | | [phone] | | | | | | | [...] + | REFERENCE LAB | [address] | [place] [address] | [phone] | | [facility] | | | | + + + + + | REFERENCE LAB | [address] | [place] [address] | [phone] | | [facility] | | | | + + + + + documented in this encounter Visit Diagnoses Not on filedocumented in this encounter"
--- OUTSIDE RECORDS SUMMARY | ~2019-02-24 | XMS | Encounter Summary ---
Demographics + + + | Address | [address] | | | [place] [address] | + + + | Home Phone [...] | Organization | [facility] [...] Providers + +------+ + | Care Medical Transcriber Name | Role | Phone | + [...] [address] | | | | | [place], [place] | [address] | | | | | [address] | [place] [address] | | | | | [phone] | [phone] | | | | | | | [...] | | | | | [place] [address] | | | | | | [phone] | | | | | | | [...] [address] | [place] | [phone] | | [facility] | | [address] | | | - LABORATORY | | | | + + + + + documented in this encounter Visit Diagnoses Not on filedocumented in this encounter"
--- OUTSIDE RECORDS SUMMARY | ~2019-02-24 | XMS | Encounter Summary ---
Demographics + + + | Address | [address] | | | [place] [address] | + + + | Home Phone [...] Organization | [facility] | | | and [place] [...] Team Providers + +------+ + | Care Skip Hoist Operator Name | Role | Phone | + +------+ + PCP | Unavailable | + +------+ + Encounter Details +--------+ + + + + | Date | Type | Department | Care Team | Description | +--------+ + + + + | 01/10/ | Hospital | [facility] | | | | 2007 - | Encounter | [facility] | | | | | | CENTER [address] | | | | 01/21/ | | [place] | | | | 2007 | | [address] | | | | | | [phone] | | | +--------+ + + + [...] | | | | | [place] [address] | | | | | | [phone] | | | | | | | | +--------+---------+ + + + documented as of this encounter Visit Diagnoses Not on filedocumented in this encounter"
--- OUTSIDE RECORDS SUMMARY | ~2019-02-24 | XMS | Encounter Summary ---
Demographics + + + | Address | [address] | | | [place] [address] | + + + | Home Phone [...] Organization | [facility] [...] Team Providers + +------+ + | Care Assignment Agent Name | Role | Phone | + +------+ + | Parviz Brar DO | PCP | | + +------+ + Reason for Visit + + + | Reason | Comments | + + + | Prostate Cancer | RESULTS | + + + Encounter Details +--------+ + + + + | Date | Type | Department | Care Team | Description | +--------+ + + + + | 04/09/ | Telephone | [facility] | Jorje Rutledge | Prostate Cancer | | 2016 | | [address] | MD [address] | (RESULTS) | | | | [place], [place] | [address] [facility] | | | | | [address] | [place] [address] | | | | | [phone] | [phone] | | | | | | | [...] | | | | | [place] [address] | | | | | | [phone] | | | | | | | | +--------+---------+ + + + documented as of this encounter Visit Diagnoses Not on filedocumented in this encounter"
--- OUTSIDE RECORDS SUMMARY | ~2019-02-24 | XMS | Encounter Summary ---
Demographics + + + | Address | [address] | | | [place] [address] | + + + | Home Phone [...] Organization | [facility] | | | [...] Team Providers + +------+ + | Care Civil Celebrant Name | Role | Phone | + [...] Urology | Diagnoses | | [facility] | | | Services | | Prostate | Matthew, | Urology [address] | | | Required | | cancer (HCC) | Becca Segura, | [address]ph | | | | | | MD [address] | [place], | | | | | | [address] | [place] [address] | | | | | | [place], | Phone: | | | | | | [place] [address] | [phone] | | | | | | | Fax: | | | | | | | [phone] | +--------+ + + + + + Encounter Details +--------+---------+ + + + | Date | Type | Department | Care Team | Description | +--------+---------+ + + + | 04/03/ | Office | [facility] | Jorje Rutledge | Preventative health | | 2016 | Visit | [address] | MD [address] | care (Primary Dx); | | | | [place], [place] | [address] [facility] | Prostate cancer | | | | [address] | [place] [address] | ([facility]) | | | | [phone] | [phone] | | | | | | | [...] a patient of Dr. Mercedez Barkley in [place] for many y ears. He originally had [...] PO) Take by mouth. Respiratory Therapy Supplies [facility] [...] not thoroughly proofread this note, and senior solutions architect erro rs may occur. documented in [...] | | | | | [place] [address] | | | | | | [phone] | | | | | | | [...]
--- OUTSIDE RECORDS SUMMARY | ~2019-02-24 | XMS | Encounter Summary ---
Demographics + + + | Address | [address] | | | [place] [address] | + + + | Home Phone | | + + + | Preferred Language | Unknown | + + + | Marital Status | | + + + | Amish Affiliation | 1076 | + + + | Race | Unknown | + + + | Ethnic Group | Unknown | + + + Author + + + | Author | [facility] | | | and [place] | + + + | Organization | [facility] | | | and [place] [...] Team Providers + +------+ + | Care Muffle Worker Name | Role | Phone | [...] + + | 03/02/ | Office | [facility] | Jorje Rutledge | Prostate cancer | | 2018 | Visit | [address] | MD [address] | ([facility]) (Primary Dx) | | | | [place], [place] | [facility] | | | | | [address] | [place] [address] | | | | | [phone] | [phone] | | | | | | | [...] he was started on anti-antigen therapy, with Renata pron. He has done well symptomatically, with [...] mcg/puff inhaler Inhale 1 puff into the renata ngs Daily. 1 each 11 HYDROcodone-acetaminophen (NORCO) [...] by mouth Daily. 0 Respiratory Therapy Supplies [facility] [...] than 60. 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 Occasional wrong- word or [...] | | | | | | [place] [address] | | | | | | [phone] | | | | | | | | +--------+---------+ + + + + +------+--------+ + + | Name | Type | Priori | Associated Diagnoses | Order Schedule | | | | ty | | | + +------+--------+ + + | Basic Metabolic | Lab | Routin | Prostate cancer | Expected: | | Panel | | e | ([facility]) | 05/24/2017, Expires: | | | | | | 03/03/2018 | + +------+--------+ + + | PSA, Diagnostic | Lab | Routin | Prostate cancer | Expected: | | | | e | ([facility]) | 05/24/2017, Expires: | | | | [...] 1.001 - 1.030 | | | | [place], | | | | | | UA, [...]
--- OUTSIDE RECORDS SUMMARY | ~2019-02-24 | XMS | Encounter Summary ---
Demographics + + + | Address | [address] | | | [place] [address] | + + + | Home Phone [...] Organization | [facility] | | | and [place] [...] Team Providers + +------+ + | Care Grease Man Name | Role | Phone | + [...] | | | | | | [place] [address] | | | | | | [phone] | | | +--------+--------+ + + + [...] | | | | | [place] [address] | | | | | | [phone] | | | | | | | | +--------+---------+ + + + documented as of this encounter Visit Diagnoses Not on filedocumented in this encounter"
--- OUTSIDE RECORDS SUMMARY | ~2019-02-24 | XMS | Clinical Summary ---
Demographics + + + | Address | [address] | | | [place] [address] | + + + | Home Phone | | + + + | Preferred Language | Unknown | + + + | Marital Status | Unknown | + + + | Pentecostalism Affiliation | Unknown | + + + | Race | Unknown | + + + | Ethnic Group | Unknown | + + + Author + + + | Author | [facility] (Historical as of | | | 10-08-18) | + + + | Organization | [facility] (Historical as of | | | 10-08-18) [...] Team Providers + +------+ + | Care Spinner Cap Frame Name | Role | Phone | + [...] +------+-------+ + | MEDICARE | MEDICA | [id number] | | | [address] | | | RE | | | | [place] [address] | | | IP-OP | | | | | + +--------+ +------+-------+ + | COMMERCIAL OTHER | TRANSA | [id number] | | | | | | MERICA [...] | 1936 | [phone] | [place] [address] | | | leslie | | | [phone] | | + +--------+ +--------+ + +
--- OUTSIDE RECORDS SUMMARY | ~2019-02-24 | XMS | Encounter Summary ---
Demographics + + + | Address | [address] | | | [place] [address] | + + + | Home Phone [...] Organization | [facility] | | | [...] Team Providers + +------+ + | Care Poker Machine Attendant Name | Role | Phone | [...] + + + + | 02/16/ | Telephone | [facility] [place] | [place], | Appointment | | 2011 | | PULMONARY [address] | Becca Segura MD | | | | | [place], | | | | | | [place] [address] | | | | | | [phone] | | | +--------+ + + + [...] | | | | | [place] [address] | | | | | | [phone] | | | | | | | | +--------+---------+ + + + documented as of this encounter Visit Diagnoses Not on filedocumented in this encounter"
--- OUTSIDE RECORDS SUMMARY | ~2019-02-24 | XMS | Encounter Summary ---
Demographics + + + | Address | [address] | | | [place] [address] | + + + | Home Phone | | + + + | Preferred Language | Unknown | + + + | Marital Status | | + + + | Latter Day Affiliation | PRE | + + + [...] Team Providers + +------+ + | Care Roller Presser Operator Name | Role | Phone | [...] | | | | Hospital Admitting | [place], [place] | ethmoid artery | | | | Desk Located on the | [address] | ligation; maxillary | | | | 9th floor | [phone] | sinus lavage | | | | [place], [place] | | | | | | [address] | | | +--------+---------+ + + + [...] medications Details oxymetazoline 0.05 % Nasal Aerosol, Gilbert Instill 2 Sprays into each nostril every six hour s as needed (Epistaxis). Use for only 3 days. sodium chloride 0.65 % Nasal Aerosol, Gilbert Instill 2 Sprays in nose every two [...] concerning symptoms, call Dr. Cherry's clinic at [phone]. If you fee l you are having [...] Wednesday for packing removal at 2:30 pm. [facility] [phone] for questions. Destination: Destination: Senior Living Facility Condition on Discharge Good Vitals on [...] | | | 13 | | | Gilbert | every six hours as | | [...] | | 13 | | | Aerosol, Gilbert | while awake. | | | | [...] AM PDT PATIENT NAME: Diego Lucas MR#: [id number] : 1935 PRIMARY CARE PROVIDER: Parviz Brar, [...] though [facility]. ASSESSMENT: Mr. Lucas remains hospitalized [...] pack removal on Wednesday. Fredrick Cherry M.D. [facility] Laryngology and Head & Neck Surgery [facility] DEPARTMENT: ENT LARYNGOLOGY PPV - [phone] Place of Service: [address]37 - Date of Service: 06/14/2012 CSN: [id number] Suggested Modifiers: GC - Resident Involved Suggested Level of Care: 58296 - Discharge Day mgmt up to 30 min Fredrick Villasenor MD - 06/13/2012 11:21 PM PDT PATIENT NAME: Diego Lucas [facility] MR#: [id number] : 1935 PRIMARY CARE PROVIDER: Parviz Brar, [...] if still not bleeding. Fredrick Cherry M.D. [facility] Neck [facility] DEPARTMENT: ENT LARYNGOLOGY PPV - [phone] Place of Service: 56167 - Date of Service: 06/13/2012 CSN: [id number] Suggested Modifiers: GC - Resident Involved Suggested Level of Care: 92471 - Subsequent, Prob Foc/low complex 15 min Rush Mahmood MD - 06/13/2012 12:16 PM PDT [facility] Department of Surgery ENT Head & [...] -Recheck crit tomorrow am Dispo: Back to [facility] tomorrow. Dr. Fredrick Cherry MD is the attending of record for this patient encounter. RUSH MOSS MD PGY-1, Plastic and Reconstructive Surgery pgr [id number] Diagnoses: 784.7 Epistaxis 353154 Anemia Meds: amLODIPine (aka NORVASC) tablet 5 [...] (aka AFRIN) 0.05 % nasal spray 2 Gilbert, 2 Gilbert, both nostrils, Q6H polyethylene glycol (aka MIRALAX) powder 17 g, 17 g, Oral, DAILY promethazine (aka PHENERGAN) injection 12.5 mg, 12.5 mg, Intravenous, Q6H PRN sodium chloride (aka OCEAN) 0.65 % nasal spray 2 Gilbert, 2 Gilbert, Nasal, Q2H [place] tamsulosin (aka FLOMAX) capsule 0.4 mg, 0.4 mg, Oral, QPM temazepam (aka RESTORIL) capsule 15 mg, 15 mg, Oral, HS PRN Fredrick Villasenor MD - 06/12/2012 9:17 PM PDT PATIENT NAME: Diego Lucas [facility] MR#: [id number] : 1935 PRIMARY CARE PROVIDER: Parviz Brar [...] equal. Vision is grossly intact on the nc ght. There is no red desaturation. The [...] Observe for resumed bleeding. Fredrick Cherry M.D. [facility] Head & Neck [facility] DEPARTMENT: ENT LARYNGOLOGY [facility] - [phone] Place of Service: 12625 - Date of Service: 06/12/2012 CSN: [id number] Suggested Modifiers: GC - Resident Involved Suggested Level of Care: 77492 - Subsequent, Prob Foc/low complex 15 min [...] mL, 30 mL, Oral, DAILY PRN, Oc Cochrna MD omeprazole (aka PRILOSEC) capsule 20 mg, [...] (aka AFRIN) 0.05 % nasal spray 2 Gilbert, 2 Gilbert, both nostrils, Q6H, Oc Cochran MD, 2 Gilbert at 06/11/12 0218 polyethylene glycol (aka MIRALAX) powder 17 g, 17 g, Oral, DAILY, Oc Cochran MD, 17 g at 06/10/12 0837 promethazine (aka PHENERGAN) injection 12.5 mg, 12.5 mg, Intravenous, Q6H PRN, Oc Cochran MD, 12.5 mg at 06/10/12 2210 sodium chloride (aka OCEAN) 0.65 % nasal spray 2 Gilbert, 2 Gilbert, Nasal, Q2H [place], Mary Myers MD, 2 Gilbert at 06/12/12 0127 tamsulosin (aka FLOMAX) capsule [...] nose overnight and this morning. Overnight a aglan catheter was placed in his nasopharynx and [...] Oc Cochran MD, 250 mg at 06/10/12 1031 ceFAZolin (aka ANCEF) IV 1 g, 1 [...] (aka AFRIN) 0.05 % nasal spray 2 Gilbert, 2 Gilbert, both nostrils, Q6H, Oc Cochran MD, 2 Gilbert at 06/11/12 0218 polyethylene glycol (aka MIRALAX) powder 17 g, 17 g, Oral, DAILY, Oc Cochran MD, 17 g at 06/10/12 0837 promethazine (aka PHENERGAN) injection 12.5 mg, 12.5 mg, Intravenous, Q6H PRN, Oc Cochran MD, 12.5 mg at 06/10/12 2210 sodium chloride (aka OCEAN) 0.65 % nasal spray 2 Gilbert, 2 Gilbert, Nasal, Q2H [place], Mary Myers MD, 2 Gilbert at 06/10/12 2234 tamsulosin (aka FLOMAX) capsule [...] (aka AFRIN) 0.05 % nasal spray 2 Gilbert, 2 Gilbert, both nostrils, Q6H, Oc Cochran MD, 2 Gilbert at 06/10/12 0215 polyethylene glycol (aka MIRALAX) [...] Otolaryngology Head and Neck Surgery PGY2 pager [phone] documented in this enco unter Plan of [...] | | | een | | | [address] | | | | | | 3 [...] view image for the detailed interpretation from Master Equation results. | CARDIOLOGY | + + + + + + + + | Performing | Address | City/State/Zipcode | Phone Number | | Organization | | | | + + + + + | [facility] | [address] | [place], [place] | | | CARDIOLOGY | [address] | [address] | | + + + + + RAINBOW HOLD TUBE - PURPLE TOP (06/13/2012 7:17 PM PDT) + + | Specimen | + + | Blood - Blood | + + + + + + + | Performing | Address | City/State/Zipcode | Phone Number | | Organization | | | | + + + + + | [facility] | [address] | [place] [address] | | | SERVICES, CORE | ELIECER [...] | | | LABORATORY | | | [facility] | | | SERVICES, | | | [...] | + + + + + | [facility] | [address] | [place] [address] | | | SERVICES, CORE | ELIECER [...] | + + + + + | [facility] | [address] | [place] [address] | | | SERVICES, CORE | PARK [...] | + + + + + | [facility] | [address] | [place] [address] | | | SERVICES, [facility] | ELIECER SALGUERO | | | + + + + + OPERATION RECORD (06/13/2012 3:45 PM PDT) + + | Transcriptions | + + | Janeth Casiano MD - 06/12/2012 11:40 PM PDT Date: | | 06/11/2012ttending Surgeon: Fredrick Cherry M.D.Chart Calculator(s): | | Janeth Casiano M.D. | | [...] of Avitene along the ethmoid bone. Aquarter-inch Celeste was | | then placed and the [...] | pulsations just anterior tothis. Using a Pennington elevator we then made an incision | [...] | | Elmer Casiano.Fredrick Cherry M.D.LALA / [id number] / [id number] / [id number] / T: | | 06/12/2012 | |superior [...] just anterior to | |this. Using a Pennington elevator we then made an incision through [...] | | | |JGL / HS | |[id number] / [id number] / [id number] / | | | | | + [...] [facility] | [address] | [place] [address] | | | SERVICES, CORE | PARK [...] | + + + + + | [facility] | [address] | [place] [address] | | | SERVICES, CORE | ELIECER [...] | + + + + + | [facility] | [address] | [place] [address] | | | RAFAEL TYLER | ELIECER [...] [facility] | [address] | [place], [place] | | | CESAR POINT OF CARE | [address] | [address] | | | TESTS | | | [...] [place] | | | | | | CSEAR POINT | | | | | | [...] KRIS | [address] | [place], [place] | | | CESAR POINT OF CARE | [facility] | [address] | | | TESTS | | | [...] + + + + | PRODUCT | [id number] | | [facility] | | | UNIT [...] + + + + | BLOOD | 67516 | | [facility] | | | PRODUCT [...] | + + + + + | [facility] | [address] | [place] [address] | | | PATHOLOGY | [address] [...] + + + + | PRODUCT | [id number] | | [facility] | | | UNIT [...] + + + + | BLOOD | 27165 | | [facility] | | | PRODUCT [...] | + + + + + | [facility] DEPARTMENT | [address] | [place] [address] | | | PATHOLOGY | [address] [...] view image for the detailed interpretation from Master Equation results. | CARDIOLOGY | + + + + + + + + | Performing | Address | City/State/Zipcode | Phone Number | | Organization | | | | + + + + + | [facility] | [address] | [place], [place] | | | CARDIOLOGY | [facility] | [address] | | + + + + + [...] | + + + + + | [facility] | [address] | [place] [address] | | | SERVICES, CORE | PARK [...] [facility] | [address] | [place] [address] | | | SERVICES, CORE | ELIECER [...] | + + + + + | [facility] | [address] | [place] [address] | | | SERVICES, CORE | PARK [...] + + + + | PRODUCT | [id number] | | [facility] | | | UNIT [...] + + + + | BLOOD | 98835 | | [facility] | | | PRODUCT [...] DEPARTMENT OF | [address] | [place] [address] | | | PATHOLOGY | [address] [...] + + + + | PRODUCT | [id number] | | [facility] | | | UNIT [...] + + + + | BLOOD | 22082 | | [facility] | | | PRODUCT [...] | + + + + + | [facility] | [address] | [place] [address] | | | PATHOLOGY | [address] [...] + + + + | PRODUCT | [id number] | | [facility] | | | UNIT [...] + + + + | BLOOD | 20247 | | [facility] | | | PRODUCT [...] DEPARTMENT OF | [address] | [place] [address] | | | PATHOLOGY | [address] [...] | + + + + + | [facility] | [address] | [place] [address] | | | SERVICES, CORE | ELIECER [...] | | | LABORATORY | | | [facility] | | | SERVICES, | | | [...] the MDRD equation recommended by the | [facility] | | National Kidney Disease Education [...] | + + + + + | [facility] | [address] | [place] [address] | | | NAYELI, RAFAEL | ELIECER [...] [facility] | [address] | [place] [address] | | | SERVICES, CORE | ELIECER [...] | + + + + + | [facility] | [address] | [place] [address] | | | SERVICES, CORE | ELIECER [...] | | | | | | M.D. TOOL AND DIE ENGINEER SURGEONS: | | | | | | [...] | | | | | Bentson wire,a 6-English | | | | | | short sheath was | | | | | | placed. Through the | | | | | | 6-English shortsheath, a | | | | | | 6-English Envoy was | | | | | [...] [facility] | [address] | [place] [address] | | | SERVICES, | [address] [...] [facility] | [address] | [place] [address] | | | SERVICES, | [address] [...] [facility] | [address] | [place] [address] | | | SERVICES, CORE | PARK [...] PONCE | [address] | [place], [place] | | | C[place] OF [facility] | [facility] | [address] | | | TESTS | | | [...]
--- OUTSIDE RECORDS SUMMARY | ~2019-02-24 | XMS | Encounter Summary ---
Demographics + + + | Address | [address] | | | [place] [address] | + + + | Home Phone | | + + + | Preferred Language | Unknown | + + + | Marital Status | | + + + | Advent Affiliation | PRE | + + + | Race | White | + + + | Ethnic Group | Not or | + + + Author + + + | Author | [facility] | + + + | Organization | [facility] | + + + | Address | Unknown | + + + | Phone | Unavailable | + + + Support + + +---------+ + | Name | Relationship | Address | Phone | + + +---------+ + | Andrez Lucas | ECON | Unknown | Unavailable | + + +---------+ + Care Team Providers + +------+ + | Care Turbine Subassembler Name | Role | Phone | + [...] + + | 06/07/ | Emergency | [facility] Emergency | Taylor Deng MD | | | 2012 - | | Department [address] | [address] | | | | | Vasiliy Jeong | [facility], | | | 06/08/ | | [facility] | [place] [address] | | | 2012 | | [place], [place] | [phone] | | | | | [address] | | | | | | [phone] | Benjie Cardona MD | | | | | | [address] | | | | | | Eliecer [place], | | | | | | [place] [address] | | | | | | [phone] | | | | | | | | | | | | Sheeba Edwards, | | | | | | LEGEND MAKER [address] | | | | | | [address] | | | | | | [place], [place] | | | | | | [address] | | | | | | [phone] | | | | | | | [...] and HTN cesar ntjewell staying in the [facility] who presented to the ED for the [...] Mr. Lucas was discharged back to the [facility]. Discharge vitals: BP 131/76 | Pulse 100 [...] (25-50cells/HPF) (none) HYPOCHROMIA 1+ (10-25cells/HPF) (none) Disposition: [facility] Discharge Condition: stable Medications: Cephalexin 500 mg [...] from the original. Thank you for choosing [facility] for your care. Please follow-up with the [...] Packing: After Your Visit", log into your MinoMonsters account at [email or web address]. You can enter [id number] in the MobileTag Library" search box. Not on MinoMonsters? Review the Language123hart section of your After Visit Summary for directions on ho w to sign up. [id number] [employer] Care instructions adapted under license by Pending sale to [facility]. This care instruction is for use with your licensed healthcar e professional. If you have questions about a medical condition or this instruction, always ask your healthcare professional. [employer] disclaims any warranty or liabili ty for your use of this information. Content Version: 9.6.301125; Last Revised: April 06, 2011 Nosebleeds: After [...] "Nosebleeds: After Your Visit", log into your MinoMonsters account at [email or web address]. You can enter [id number] in the CinemaKi" search box. Not on MinoMonsters? Review the MinoMonsters section of your After Visit Summary for directions on ho w to sign up. [id number] [employer] Care instructions adapted under license by Pending sale to [facility]. This care instruction is for use with your licensed healthCOINLAB e professional. If you have questions about a medical condition or this instruction, always ask your healthcare professional. [employer] disclaims any warranty or liabili ty for your use of this information. Content Version: 9.6.216722; Last Revised: August 19, 2011 documented in [...] [facility] | [address] | [place] [address] | | | NAYELI, RAFAEL | ELIECER [...] | + + + + + | [facility] | [address] | [place] [address] | | | SERVICES, CORE | ELIECER [...] - KRIS | [address] | [place], [place] | | | [facility] | [address] | [address] | | | TESTS | | | [...] FOR CHILDREN | [address] | [place] [address] | | | SERVICES, CORE | PARK [...]
--- OUTSIDE RECORDS SUMMARY | ~2019-02-24 | XMS | Encounter Summary ---
Demographics + + + | Address | [address] | | | [place] [address] | + + + | Home Phone [...] | Organization | [facility] | | [...] Team Providers + +------+ + | Care Psychological Aide Name | Role | Phone | + +------+ + PCP | Unavailable | + +------+ + Encounter Details +--------+ + + + + | Date | Type | Department | Care Team | Description | +--------+ + + + + | 07/23/ | Hospital | [facility] | | | | 2007 - | Encounter | MED CTR CANCER | | | | | | CENTER [address] | | | | 08/21/ | | [place] | | | | 2007 | | [address] | | | | | | [phone] | | | +--------+ + + + [...] | | | | | | [place] [address] | | | | | | [phone] | | | | | | | | +--------+---------+ + + + documented as of this encounter Visit Diagnoses Not on filedocumented in this encounter"
--- OUTSIDE RECORDS SUMMARY | ~2019-02-24 | XMS | Encounter Summary ---
Demographics + + + | Address | [address] | | | [place] [address] | + + + | Home Phone [...] [facility] | [...] Providers + +------+ + | Care Supervisor Phosphatic Fertilizer Name | Role | Phone | + [...] + + | 04/09/ | Telephone | [facility] | Jorje Rutledge | Prostate Cancer | | 2016 | | [address] | MD [address] | (RESULTS) | | | | [place], [place] | [address] [facility] | | | | | [address] | [place] [address] | | | | | [phone] | [phone] | | | | | | | [...] | | | | | [place] [address] | | | | | | [phone] | | | | | | | | +--------+---------+ + + + documented as of this encounter Visit Diagnoses Not on filedocumented in this encounter"
--- OUTSIDE RECORDS SUMMARY | ~2019-02-24 | XMS | Encounter Summary ---
Demographics + + + | Address | [address] | | | [place] [address] | + + + | Home Phone [...] | Organization | [facility] | [...] Team Providers + +------+ + | Care Vinyl Flooring Installer Name | Role | Phone | + +------+ + | Parviz Brar DO | PCP | | + +------+ + Encounter Details +--------+ + + + + | Date | Type | Department | Care Team | Description | +--------+ + + + + | 06/16/ | Hospital | [facility] | Conversion | Pain | | 2017 | Encounter | [address] | Transaction, | | | | | [address] | Provider Unknown | | | | | [place], [place] | [phone] | | | | | [address] | | | | | | [phone] | | | +--------+ + + + [...] | | | | | [place] [address] | | | | | | [phone] | | | | | | | [...]
--- OUTSIDE RECORDS SUMMARY | ~2019-02-24 | XMS | Encounter Summary ---
Demographics + + + | Address | [address] | | | [place] [address] | + + + | Home Phone [...] | Organization | [facility] | | | [...] Team Providers + +------+ + | Care Drum Cleaner Name | Role | Phone | + [...] [address] | Becca Segura MD | [facility]) | | | | [place], | | | | | | [place] [address] | | | | | | [phone] | | | +--------+ + + + [...] | | | | | [place] [address] | | | | | | [phone] | | | | | | | | +--------+---------+ + + + documented as of this encounter Visit Diagnoses Not on filedocumented in this encounter"
--- OUTSIDE RECORDS SUMMARY | ~2019-02-24 | XMS | Encounter Summary ---
Demographics + + + | Address | [address] | | | [place] [address] | + + + | Home Phone [...] Organization | [facility] [...] NA | | | | | [place] | | + + + + + | Candis Beyer | ECON | NA | | | | | FILEMON LIND | | + + + + + Care Team Providers + +------+ + | Care Sow Farm Technician Name | Role | Phone | [...] | | | | 2008 | | [address] | | | | | | [phone] | | | +--------+ + + + [...] | | | | | | [place] [address] | | | | | | [phone] | | | | | | | | +--------+---------+ + + + documented as of this encounter Visit Diagnoses Not on filedocumented in this encounter"
--- OUTSIDE RECORDS SUMMARY | ~2019-02-24 | XMS | Encounter Summary ---
Demographics + + + | Address | [address] | | | [place] [address] | + + + | Home Phone [...] Organization | [facility] | [...] Providers + +------+ + | Care Retail Field Supervisor Name | Role | Phone | [...] + + | 11/17/ | Telephone | [facility] | Jorje Rutledge | Other (Labs needed | | 2017 | | [address] | [address] | prior to appt. ) | | | | [place] | [address] [facility] | | | | | [address] | [place] [address] | | | | | [phone] | [phone] | | | | | | | [...] | | | | | [place] [address] | | | | | | [phone] | | | | | | | | +--------+---------+ + + + documented as of this encounter Visit Diagnoses Not on filedocumented in this encounter"
--- OUTSIDE RECORDS SUMMARY | ~2019-02-24 | XMS | Encounter Summary ---
Demographics + + + | Address | [address] | | | [place] [address] | + + + | Home Phone [...] | [facility] | | [...] Team Providers + +------+ + | Care Tablet Repair Name | Role | Phone | + [...] 2017 | | GASTROENTEROLOGY | [address], [place] | | | | | [address] [place] | [address] [place], [place] | | | | | [address] [place], [place] | [address] | | | | | [address] | | | | | | [phone] | | | +--------+ + + + [...] | | | | | [place] [address] | | | | | | [phone] | | | | | | | | +--------+---------+ + + + documented as of this encounter Visit Diagnoses Not on filedocumented in this encounter"
--- OUTSIDE RECORDS SUMMARY | ~2019-02-24 | XMS | Encounter Summary ---
Demographics + + + | Address | [address] | | | [place] [address] | + + + | Home Phone [...] | Organization | [facility] | | [...] Team Providers + +------+ + | Care Inspector Repairer Name | Role | Phone | [...] | RN | | | | | [place], | | | | | | [place] [address] | | | | | | [phone] | | | +--------+ + + + [...] | | | | | [place] [address] | | | | | | [phone] | | | | | | | | +--------+---------+ + + + documented as of this encounter Visit Diagnoses Not on filedocumented in this encounter"
--- OUTSIDE RECORDS SUMMARY | ~2019-02-24 | XMS | Encounter Summary ---
Demographics + + + | Address | [address] | | | [place] [address] | + + + | Home Phone [...] Organization | [facility] | | [...] Team Providers + +------+ + | Care Predatory Game Hunter Name | Role | Phone | + [...] [address] | Becca Segura MD | [facility]) | | | | [place], | | | | | | [place] [address] | | | | | | [phone] | | | +--------+ + + + [...] | | | | | [place] [address] | | | | | | [phone] | | | | | | | | +--------+---------+ + + + documented as of this encounter Visit Diagnoses Not on filedocumented in this encounter"
--- OUTSIDE RECORDS SUMMARY | ~2019-02-24 | XMS | Encounter Summary ---
Demographics + + + | Address | [address] | | | [place] [address] | + + + | Home Phone | | + + + | Preferred Language | Unknown | + + + | Marital Status | | + + + | Anabaptist Affiliation | 1076 | + + + | Race | Unknown | + + + | Ethnic Group | Unknown | + + + Author + + + | Author | [facility] | | | and [place] | + + + | Organization | [facility] | [...] Team Providers + +------+ + | Care Antichecking Iron Worker Name | Role | Phone | + +------+ + | Parviz Brar DO | PCP | | + +------+ + Encounter Details +--------+ + + + + | Date | Type | Department | Care Team | Description | +--------+ + + + + | 06/16/ | Hospital | [facility] | Conversion | Pain | | 2017 | Encounter | [address] | Transaction, | | | | | [address] | Provider Unknown | | | | | [place], [place] | [phone] | | | | | [address] | | | | | | [phone] | | | +--------+ + + + [...] | | | | | [place] [address] | | | | | | [phone] | | | | | | | [...]
--- OUTSIDE RECORDS SUMMARY | ~2019-02-24 | XMS | Encounter Summary ---
[...] | Organization | [facility] | | | and [place] [...] Team Providers + +------+ + | Care Reverse Logistics Analyst Name | Role | Phone | + +------+ + | Parviz Brar DO | PCP | | + +------+ + Encounter Details +--------+ + + + + | Date | Type | Department | Care Team | Description | +--------+ + + + + | 06/16/ | Hospital | [facility] | Conversion | Pain | | 2017 | Encounter | [address] | Transaction, | | | | | [address] | Provider Unknown | | | | | [place], [place] | [phone] | | | | | [address] | | | | | | [phone] | | | +--------+ + + + [...] | | | | | [place] [address] | | | | | | [phone] | | | | | | | [...]
--- OUTSIDE RECORDS SUMMARY | ~2019-02-24 | XMS | Encounter Summary ---
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 He is running for [employer] in [place]. He has been coughing a little more this summer, he thinks because of allergies. He has been bringing up yellow phlegm. He has not had any recent hemoptysis. He has had a runny nose re cently. He has been evaluated for nocturnal oxygen and does use it. He is currently on [address] [facility]. He reports good compliance. He [...] hormonal treatment with Lupron; DR JULIAN IN [place] COPD (chronic obstructive pulmonary disease) ([facility]) DR BILLY ARAUJO Pneumonia 05/2012 hospitalized [facility] Heart murmur DR MARIAA OLIVERA Cataracts, [...] Laterality: N/A; Surgeon: Jennifer Wilder MD; Location: [facility] ELECTROPHYSIOLOGY Egd and colonoscopy 02/06/2015 Dr. Arellano [...] No other animal exposures. Grew up in [place]. Then lived in [place]. Then moved to [place]. In the service lived i [facility] and [place]. No recent travel. Allergies: Allergies Allergen Reactions [...] PO) Take by mouth. Respiratory Therapy Supplies [facility] Please provide an O2 concentrator while Diego [...] made to ensure accuracy; however, inadvertent computerized under trimmer errors may be pre sent. documented in [...] | | | | | | [place] [address] | | | | | | [phone] | | | | | | | [...]
--- OUTSIDE RECORDS SUMMARY | ~2019-02-24 | XMS | Encounter Summary ---
Demographics + + + | Address | [address] | | | [place] [address] | + + + | Home Phone [...] Organization | [facility] | | | and [place] [...] Team Providers + +------+ + | Care Steward/Stewardess Night Name | Role | Phone | + [...] | | | [place], | [place] [address] | | | | | | [place] [address] | Phone: | | | | | | | [phone] | | | | | | | Fax: | | | | | | | [phone] | +--------+ + + + + + Encounter Details +--------+---------+ + + + | Date | Type | Department | Care Team | Description | +--------+---------+ + + + | 06/29/ | Office | [facility] | Jorje Rutledge | Prostate cancer | | 2017 | Visit | [address] | MD [address] | ([facility]) (Primary Dx) | | | | [place], [place] | [address] | | | | | [address] | [place] [address] | | | | | [phone] | [phone] | | | | | | | [...] (02/2012); Foot fracture (02/2012); SVT (supraventricular tachycardia) ([facility]) (01/2014); Depression; Prostate cancer ([facility]) (2007) ; COPD (chronic obstructive pulmonary disease) ([facility]); Pneumonia (05/2012); Heart murmur; Riam racts, bilateral; Kidney stone (2004); Hypertension; TIA [...] PO) Take by mouth. Respiratory Therapy Supplies [facility] Please provide an O2 concentrator while Diego [...] have not thoroughly proofread this note, and consumer recruiter erro rs may occur. documented in th [...] | | | | | [place] [address] | | | | | | [phone] | | | | | | | [...] 1.001 - 1.030 | | | | [place], | | | | | | [facility], [...]
--- OUTSIDE RECORDS SUMMARY | ~2019-02-24 | XMS | Encounter Summary ---
Demographics + + + | Address | [address] | | | [place] [address] | + + + | Home Phone [...] [facility] | [...] | NA | | | | | FILEOMN LIND | | + + + + + Care Team Providers + +------+ + | Care Manager Solution Name | Role | Phone | + [...] | | | [place], | [place] [address] | | | | | | [place] [address] | Phone: | | | | | | | [phone] | | | | | | | Fax: | | | | | | | [phone] | +--------+ + + + + + Encounter Details +--------+---------+ + + + | Date | Type | Department | Care Team | Description | +--------+---------+ + + + | 06/29/ | Office | [facility] | Jorje Rutledge | Prostate cancer | | 2017 | Visit | [address] | MD [address] | ([facility]) (Primary Dx) | | | | [place], [place] | [address] | | | | | [address] | [place] [address] | | | | | [phone] | [phone] | | | | | | | [...] (02/2012); Foot fracture (02/2012); SVT (supraventricular tachycardia) ([facility]) (01/2014); Depression; Prostate cancer ([facility]) (2007) ; COPD (chronic obstructive pulmonary disease) ([facility]); Pneumonia (05/2012); Heart murmur; Rima [...] Take by mouth. Respiratory Therapy Supplies [facility] Please provide an O2 [...] have not thoroughly proofread this note, and platform stapler erro rs may occur. documented in th [...] | | | | | | [place] [address] | | | | | | [phone] | | | | | | | [...] 1.001 - 1.030 | | | | [place], | | | | | | [facility], [...]
--- OUTSIDE RECORDS SUMMARY | ~2019-02-24 | XMS | Encounter Summary ---
Demographics + + + | Address | [address] | | | [place] [address] | + + + | Home Phone [...] | Organization | [facility] | | | and [place] | [...] Team Providers + +------+ + | Care Web Press Roll Tender Name | Role | Phone | [...] MD | obstructive | | | | [place], | | pulmonary disease) | | | | [place] [address] | | (Primary Dx); | | | | [phone] | | Nocturnal hypoxemia | | | [...] PSTDo an overnight oxy gen test through [facility]. Call the [facility] before you pick it up to make sure th ey have a box available. You will moss picker a box at the [facility]. Do the test on 2 L. Wear [...] been doing okay. He did have a campus monitor that showed he was having episod es [...] 1 1/2 months. He returns today for [facility] follow up. Currently he is able [...] is currently on 2 L[facility]. He reports good compliance. He does have [...] home. No other animal exposures.Grew up in [place]. Then lived in [place]. Then move d to [place]. In the service lived in [facility] and [place]. No recent travel. Allergies: [...] into the lungs nightly. Respiratory Therapy Supplies [facility] Please provide an O2 concentrator while Diego [...] made to ensure accuracy; however, inadvertent computerized glove sewer errors may be pre sent. documented in [...] | | | | | [place] [address] | | | | | | [phone] | | | | | | | [...] | | | | | | ([facility]) | | + + +--------+ + [...]
--- OUTSIDE RECORDS SUMMARY | ~2019-02-24 | XMS | Encounter Summary ---
Demographics + + + | Address | [address] | | | [place] [address] | + + + | Home Phone | | + + + | Preferred Language | Unknown | + + + | Marital Status | | + + + | Mormonism Affiliation | 1076 | + + + | Race | Unknown | + + + | Ethnic Group | Unknown | + + + Author + + + | Author | [facility] | | | and [place] | + + + | Organization | [facility] | | [...] Team Providers + +------+ + | Care Central Office Operator Name | Role | Phone | [...] Urology | Diagnoses | | [facility] | | | Services | | Prostate | Matthew, | Urology [address] | | | Required | | cancer (HCC) | eBcca Segura, | [address] | | | | | | MD [address] | [place], | | | | | | [address] | [place] [address] | | | | | | [place], | Phone: | | | | | | [place] [address] | [phone] | | | | | | | Fax: | | | | | | | [phone] | +--------+ + + + + + Encounter Details +--------+---------+ + + + | Date | Type | Department | Care Team | Description | +--------+---------+ + + + | 04/03/ | Office | [facility] | Jorje Rutledge | Preventative health | | 2016 | Visit | [address] | [address] | care (Primary Dx); | | | | [place], [place] | [address] [facility] | Prostate cancer | | | | [address] | [place] [address] | ([facility]) | | | | [phone] | [phone] | | | | | | | [...] a patient of Dr. Mercedez Barkley in [place] for many y ears. He originally had [...] mouth. Respiratory Therapy Supplies [facility] Please provide an O2 [...] have not thoroughly proofread this note, and fruit farmworker erro rs may occur. documented in th [...] | | | | | [place] [address] | | | | | | [phone] | | | | | | | [...]
--- OUTSIDE RECORDS SUMMARY | ~2019-02-24 | XMS | Encounter Summary ---
Demographics + + + | Address | [address] | | | [place] [address] | + + + | Home Phone | | + + + | Preferred Language | Unknown | + + + | Marital Status | | + + + | Christianity Affiliation | PRE | + + + | Race | White | + + + | Ethnic Group | Not or | + + + Author + + + | Author | [facility] | + + + | Organization | [facility] | + + + | Address | Unknown | + + + | Phone | Unavailable | + + + Support + + +---------+ + | Name | Relationship | Address | Phone | + + +---------+ + | Andrez Lcuas | ECON | Unknown | Unavailable | + + +---------+ + Care Team Providers + +------+ + | Care Health Outcomes Liaison Name | Role | Phone | [...] + + | 06/09/ | Hospital | [facility] [address] | [place], | | | 2013 - | Encounter | [facility] Mailcode: | MD Gabrielle Garecs | | | | | [address] | [address] | | | 06/14/ | | [place], | [place], [place] | | | 2012 | | [place] [address] | [address] | | | | | [phone] | [phone] | | | | | | | | | | | | Fredrick Cherry, | | | | | | MD Gabrielle Garces | | | | | | [address] | | | | | | [place], [place] | | | | | | [address] | | | | | | [phone] | | | | | | | [...] medications Details oxymetazoline 0.05 % Nasal Aerosol, Alvord Instill 2 Sprays into each nostril every six hour s as needed (Epistaxis). Use for only 3 days. sodium chloride 0.65 % Nasal Aerosol, Alvord Instill 2 Sprays in nose every two [...] concerning symptoms, call Dr. Cherry's clinic at [phone]. If you fee l you are having [...] for packing removal at 2:30 pm. [facility] [phone] for questions. Destination: Destination: Long-Term Facility Condition on Discharge Good Vitals on [...] | | | 13 | | | Alvord | every six hours as | | [...] | | 13 | | | Aerosol, Alvord | while awake. | | | | [...] 10:44 AM PDT PATIENT NAME: Diego Lucas [facility] MR#: [id number] : 1935 PRIMARY CARE PROVIDER: Parviz Brar, [...] uses supplemental oxygen at his senior living [facility]. ASSESSMENT: Mr. Lucas remains hospitalized for [...] pack removal on Wednesday. Fredrick Cherry M.D. Computer Systems Manager Laryngology and Head & Neck Surgery [facility] DEPARTMENT: ENT LARYNGOLOGY PPV - [phone] Place of Service: [id number] - Date of Service: 06/14/2012 CSN: [id number] Suggested Modifiers: GC - Resident Involved Suggested Level of Care: 54906 - Discharge Day mgmt up to 30 min Fredrick Villasenor MD - 06/13/2012 11:21 PM PDT PATIENT NAME: Diego Lucas [facility] MR#: [id number] : 1935 PRIMARY CARE PROVIDER: Parviz Brar, [...] if still not bleeding. Fredrick Cherry M.D. Computer Systems Manager Laryngology and Head & Neck Surgery [facility] DEPARTMENT: ENT LARYNGOLOGY PPV - [phone] Place of Service: [id number] - Date of Service: 06/13/2012 CSN: [id number] Suggested Modifiers: GC - Resident Involved Suggested Level of Care: 34558 - Subsequent, Prob Foc/low complex 15 min Rush Mahmood MD - 06/13/2012 12:16 PM PDT [facility] Department of Surgery ENT Head & [...] -Recheck crit tomorrow am Dispo: Back to [facility] tomorrow. Dr. Fredrick Cherry MD is the attending of record for this patient encounter. RUSH MOSS MD PGY-1, Plastic and Reconstructive Surgery pgr [phone] Diagnoses: 784.7 Epistaxis 153007 Anemia Meds: amLODIPine (aka NORVASC) tablet 5 [...] (aka AFRIN) 0.05 % nasal spray 2 Alvord, 2 Alvord, both nostrils, Q6H polyethylene glycol (aka MIRALAX) powder 17 g, 17 g, Oral, DAILY promethazine (aka PHENERGAN) injection 12.5 mg, 12.5 mg, Intravenous, Q6H PRN sodium chloride (aka OCEAN) 0.65 % nasal spray 2 Alvord, 2 Alvord, Nasal, Q2H [place] tamsulosin (aka FLOMAX) capsule 0.4 mg, 0.4 mg, Oral, QPM temazepam (aka RESTORIL) capsule 15 mg, 15 mg, Oral, HS PRN Fredrick Villasenor MD - 06/12/2012 9:17 PM PDT PATIENT NAME: Diego Lucas [facility] MR#: [id number] : 1935 PRIMARY CARE PROVIDER: Parviz Brar [...] Observe for resumed bleeding. Fredrick Cherry M.D. Computer Systems Manager Laryngology and Head & Neck Surgery [facility] DEPARTMENT: ENT LARYNGOLOGY [facility] - [phone] Place of Service: 37083 - Date of Service: 06/12/2012 CSN: [id number] Suggested Modifiers: GC - Resident Involved Suggested Level of Care: 35222 - Subsequent, Prob Foc/low complex 15 min [...] salt, 325 mg total salt, Oral, DAILY, cO Cochran MD, 325 mg total salt at [...] (aka AFRIN) 0.05 % nasal spray 2 Alvord, 2 Alvord, both nostrils, Q6H, Oc Cochran MD, 2 Alvord at 06/11/12 0218 polyethylene glycol (aka MIRALAX) powder 17 g, 17 g, Oral, DAILY, Oc Cochran MD, 17 g at 06/10/12 0837 promethazine (aka PHENERGAN) injection 12.5 mg, 12.5 mg, Intravenous, Q6H PRN, Oc Cochran MD, 12.5 mg at 06/10/12 2210 sodium chloride (aka OCEAN) 0.65 % nasal spray 2 Alvord, 2 Alvord, Nasal, Q2H [place], Mckenzie Myers MD, 2 Alvord at 06/12/12 0127 tamsulosin (aka FLOMAX) capsule [...] PGY 2 Hospital Day:3 Attending Physician: Fredrick Cehrry MD iaoMckenzie MD - 06/11/2012 7:25 PM [...] Neck Progress Note Hospital Day:2 Author; DARIUS ABRRIGA MD Attending Physician: Fredrick Cherry MD Interval [...] tablet 250 mg, 250 mg, Oral, BID, cO Cochran MD, 250 mg at 06/10/12 4333 ceFAZolin (aka ANCEF) IV 1 g, 1 [...] (aka AFRIN) 0.05 % nasal spray 2 Alvord, 2 Alvord, both nostrils, Q6H, Oc Cochran MD, 2 Alvord at 06/11/12 0218 polyethylene glycol (aka MIRALAX) powder 17 g, 17 g, Oral, DAILY, Oc Cochran MD, 17 g at 06/10/12 0837 promethazine (aka PHENERGAN) injection 12.5 mg, 12.5 mg, Intravenous, Q6H PRN, Oc Cochran MD, 12.5 mg at 06/10/12 2210 sodium chloride (aka OCEAN) 0.65 % nasal spray 2 Alvord, 2 Alvord, Nasal, Q2H [place], Mckenzie Myers MD, 2 Alvord at 06/10/12 2234 tamsulosin (aka FLOMAX) capsule [...] (aka AFRIN) 0.05 % nasal spray 2 Alvord, 2 Alvord, both nostrils, Q6H, Oc Cochran MD, 2 Alvord at 06/10/12214 polyethylene glycol (aka MIRALAX) powder [...] Otolaryngology Head and Neck Surgery PGY2 pager [phone] documented in this enco unter Plan of [...] | | | een | | | [address] | | | | | | 3 [...] view image for the detailed interpretation from [employer] results. | CARDIOLOGY | + + + + + + + + | Performing | Address | City/State/Zipcode | Phone Number | | Organization | | | | + + + + + | [facility] | [address] | [place], [place] | | | CARDIOLOGY | [address] | [address] | | + + + + + [...] [facility] | [address] | [place] [address] | | | SERVICES, RAFAEL | [address]ECER [...] | | | LABORATORY | | | EMIRATI | | | SERVICES, | | | [...] | + + + + + | [facility] | [address] | [place] [address] | | | SERVICES, CORE | PARK [...] | + + + + + | [facility] | [address] | [place] [address] | | | SERVICES, CORE | [address] [...] | + + + + + | [facility] | [address] | [place] [address] | | | SERVICES, [facility] | [address] | | | + + + + + OPERATION RECORD (06/13/2012 3:45 PM PDT) + + | Transcriptions | + + | Janeth Casiano MD - 06/12/2012 11:40 PM PDT Date: | | 06/11/2012ttending Surgeon: Fredrick Cherry M.D.House Worker(s): | | Janeth Casiano M.D. | | [...] | irrigation.Anesthesia:General.Blood Loss:25 cc.Complications:None | | apparent.Specimens:None.Drains:Quarter-inch Val[place] in right medial orbital | | incision.Indications:Mr. [...] the procedure.Janeth Caballero | | Lydia Casiano M.D.ALLA / [id number] / [id number] / [id number] / T: | | 06/12/2012 | |superior [...] a small gauze was placed over the [place] | |drain in the right medial Jimenez [...] | | | |JGL / HS | |[id number] / [id number] / [id number] / | | | | | + [...] [facility] | [address] | [place] [address] | | | SERVICES, CORE | PARK [...] | + + + + + | [facility] | [address] | [place] [address] | | | SERVICES, CORE | PARK [...] | + + + + + | [facility] | [address] | [place] [address] | | | NAYELI, RAFAEL | [address] [...] | 287.5 | 275 - 295 | [facility] - | | | VENOUS, POC | | mmol/kg | KRIS | | | | | | SOPHIA GUERRERO | | | | | | OF CARE | | | | | | TESTS | | + + + + + + | PH VENOUS, | 7.37 | 7.35 - 7.45 | [facility] - | | | POC | | [...] PATRICAAM | [address] | [place], [place] | | | SOPHIA GUERRERO OF CARE | [facility] | [address] | | | TESTS | | | [...] - KRIS | [address] | [place], [place] | | | SOPHIA GUERRERO OF [facility] | [address] | [address] | | | TESTS | | | [...] + + + + | PRODUCT | [id number] | | [facility] | | | UNIT [...] + + + + | BLOOD | [id number] | | [facility] | | | PRODUCT [...] | + + + + + | [facility] | [address] | [place] [address] | | | PATHOLOGY | [address] [...] + + + + | PRODUCT | [id number] | | [facility] | | | UNIT [...] + + + + | BLOOD | 94493 | | [facility] | | | PRODUCT [...] [facility] | [address] | [place] [address] | | | PATHOLOGY | [address] [...] view image for the detailed interpretation from [employer] results. | CARDIOLOGY | + + + + + + + + | Performing | Address | City/State/Zipcode | Phone Number | | Organization | | | | + + + + + | [facility] | [address] | [place], [place] | | | CARDIOLOGY | [address] | [address] | | + + + + + [...] [facility] | [address] | [place] [address] | | | SERVICES, CORE | PARK [...] | + + + + + | [facility] | [address] | [place] [address] | | | SERVICES, CORE | PARK [...] | + + + + + | [facility] [facility] | [address] | [place] [address] | | | SERVICES, CORE | PARK [...] + + + + | PRODUCT | [id number] | | [facility] | | | UNIT [...] + + + + | BLOOD | [id number] | | [facility] | | | PRODUCT [...] DEPARTMENT OF | [address] | [place] [address] | | | PATHOLOGY | [address] [...] + + + + | PRODUCT | [id number] | | [facility] | | | UNIT [...] + + + + | BLOOD | 41729 | | [facility] | | | PRODUCT [...] | + + + + + | [facility] | [address] | [place] [address] | | | PATHOLOGY | [address] [...] + + + + | PRODUCT | [id number] | | [facility] | | | UNIT [...] + + + + | BLOOD | 38999 | | [facility] | | | PRODUCT [...] + + + + + | [facility] | [address] | [place] [address] | | | PATHOLOGY | [address] [...] | + + + + + | [facility] [employer] [facility] | [address] | [place] [address] | | | SERVICES, CORE | ELIECER [...] | | | LABORATORY | | | EMIRATI | | | SERVICES, | | | [...] the MDRD equation recommended by the | [facility] | | National Kidney Disease Education [...] | + + + + + | [facility] | [address] | [place] [address] | | | SERVICES, CORE | PARK [...] | + + + + + | [facility] | [address] | [place] [address] | | | SERVICES, CORE | PARK [...] | + + + + + | [facility] | [address] | [place] [address] | | | SERVICES, CORE | PARK [...] | | | | | | M.D. VB DEVELOPER SURGEONS: | | | | | | [...] | | | | | Bentson wire,a 6-Montenegrin | | | | | | short sheath was | | | | | | placed. Through the | | | | | | 6-Montenegrin shortsheath, a | | | | | | 6-Montenegrin Envoy was | | | | | [...] | + + + + + | [facility] | [address] | [place] [address] | | | SERVICES, | [address] [...] [facility] | [address] | [place] [address] | | | SERVICES, | [address] [...] [facility] | [address] | [place] [address] | | | SERVICES, CORE | PARK [...] PONCE | [address] | [place], [place] | | | HOLLY GUERRERO | [address] | [address] | | | TESTS | | | [...] PDT | | | | | Until [place] 06/12/12 at 1015 | | | | [...] | | | % nasal spray 2 Alvord 2 spray, | | 13 9:01 | [...] | | 0.65 % nasal spray 2 Alvord 2 | | 13 2:17 | | [...]
--- OUTSIDE RECORDS SUMMARY | ~2019-02-24 | XMS | Encounter Summary ---
Demographics + + + | Address | [address] | | | [place] [address] | + + + | Home Phone [...] | [facility] | | | and [place] [...] Team Providers + +------+ + | Care Enrollment Representative Name | Role | Phone | [...] + + | 08/06/ | Refill | [facility] | Jorje Rutledge | Medication Refill | | 2017 | | [address] | [address] | | | | | [place], [place] | [address] [facility] | | | | | [address] | [place] [address] | | | | | [phone] | [phone] | | | | | | | [...] | | | | | [place] [address] | | | | | | [phone] | | | | | | | | +--------+---------+ + + + documented as of this encounter Visit Diagnoses Not on filedocumented in this encounter"
--- OUTSIDE RECORDS SUMMARY | ~2019-02-24 | XMS | Encounter Summary ---
Demographics + + + | Address | [address] | | | [place] [address] | + + + | Home Phone [...] Organization | [facility] | [...] | + + + + + | [place] | ECON | NA | | | | | FILEMON LIND | | + + + + + Care Team Providers + +------+ + | Care General Merchandise Manager Name | Role | Phone | [...] + + | 11/29/ | Telephone | [facility] | Jorje Rutledge | Medication Prior | | 2018 | | [address] | [address] | Authorization | | | | [place], [place] | [address] [facility] | (Megestrol ) | | | | [address] | [place] [address] | | | | | [phone] | [phone] | | | | | | | [...] | | | | | [place] [address] | | | | | | [phone] | | | | | | | | +--------+---------+ + + + documented as of this encounter Visit Diagnoses Not on filedocumented in this encounter"
--- OUTSIDE RECORDS SUMMARY | ~2019-02-24 | XMS | Encounter Summary ---
Demographics + + + | Address | [address] | | | [place] [address] | + + + | Home Phone [...] | Organization | [facility] | | | and [...] Team Providers + +------+ + | Care Saw Superintendent Name | Role | Phone | + [...] + + | 04/09/ | Telephone | [facility] | Jorje Rutledge | Prostate Cancer | | 2016 | | [address] | [address] | (RESULTS) | | | | [place], [place] | [address] [facility] | | | | | [address] | [place] [address] | | | | | [phone] | [phone] | | | | | | | [...] | | | | | [place] [address] | | | | | | [phone] | | | | | | | | +--------+---------+ + + + documented as of this encounter Visit Diagnoses Not on filedocumented in this encounter"
--- OUTSIDE RECORDS SUMMARY | ~2019-02-24 | XMS | Encounter Summary ---
Demographics + + + | Address | [address] | | | [place] [address] | + + + | Home Phone [...] + | Organization | [facility] | [...] Team Providers + +------+ + | Care Kosher Inspector Name | Role | Phone | [...] [address] | | | | | [place], [place] | [address] [facility] | | | | | [address] | [place] [address] | | | | | [phone] | [phone] | | | | | | | [...] | | | | | [place] [address] | | | | | | [phone] | | | | | | | | +--------+---------+ + + + documented as of this encounter Visit Diagnoses Not on filedocumented in this encounter"
--- OUTSIDE RECORDS SUMMARY | ~2019-02-24 | XMS | Encounter Summary ---
Demographics + + + | Address | [address] | | | [place] [address] | + + + | Home Phone [...] + + | Organization | [facility] | | | and [...] Team Providers + +------+ + | Care Dyno Technician Name | Role | Phone | [...] 2017 | | GASTROENTEROLOGY | [address] [place] | | | | | [address] | [address] [place], [place] | | | | | [address] [place], [place] | [address] | | | | | [address] | | | | | | [phone] | | | +--------+ + + + [...] | | | | | [place] [address] | | | | | | [phone] | | | | | | | | +--------+---------+ + + + documented as of this encounter Visit Diagnoses Not on filedocumented in this encounter"
--- OUTSIDE RECORDS SUMMARY | ~2019-02-24 | XMS | Encounter Summary ---
Demographics + + + | Address | [address] | | | [place] [address] | + + + | Home Phone [...] Organization | [facility] | [...] Team Providers + +------+ + | Care Motion Picture Photographer Name | Role | Phone | + [...] + + | 05/31/ | Office | [facility] | Jorje Rutledge | Prostate cancer | | 2018 | Visit | [address] | [address] | (HCC) (Primary Dx); | | | | [place] | [address] | Incomplete bladder | | | | [address] | [place] [address] | emptying | | | | [phone] | [phone] | | | | | | | [...] history ofT2c or T3 adenocarcinoma the prostate, [place] 4+3 = 7, PSA 13.9, which was [...] fracture; COPD (chronic obstructive pulmonary dis ease) ([facility]); Depression; Dermatophytosis tinea capitis; Diverticulosis (01/2015); Essential hypertension; Foot fracture (02/2012); Gastritis (01/2015); GI bleed (01/2015); Heart murmur; Heartburn; Hiatal hernia (01/2015); History of rectal bleeding; Hypoxia; Insomnia; Iron def iciency anemia; Kidney stone (2004); Lumbar disc herniation; Migraines; Mood disorder ([facility]) of unknown (axis III) etiology; Nocturnal hypoxia; Osteoarthritis; Peptic ulcer disease; Pne umonia (05/2012); Prostate cancer ([facility]) (2007); Pulmonary nodules; Seborrheic dermatitis of s calp; Shoulder fracture (02/2012); Supplemental oxygen dependent; SVT (supraventricular tachy cardia) ([facility]) (01/2014); TIA (transient ischemic attack); and Vasovagal [...] or use drugs. Allergies Allergen Reactions Ipratropium [place] Hfa Other (See Comments) Reaction: Cough Penicillins [...] g by mouth Daily. 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 Occasional wrong word or [...] | | | | | | [place] [address] | | | | | | [phone] | | | | | | | [...] Expected: | | | | e | ([facility]) Incomplete | 08/23/2017, Expires: | | | [...]
--- OUTSIDE RECORDS SUMMARY | ~2019-02-24 | XMS | Encounter Summary ---
Demographics + + + | Address | [address] | | | [place] [address] | + + + | Home Phone | | + + + | Preferred Language | Unknown | + + + | Marital Status | | + + + | Lutheran Affiliation | 1076 | + + + | Race | Unknown | + + + | Ethnic Group | Unknown | + + + Author + + + | Author | [facility] | | | and [place] | + + + | Organization | [facility] | | | and [...] Team Providers + +------+ + | Care Inside Sales Recruiter Name | Role | Phone | + +------+ + PCP | Unavailable | + +------+ + Encounter Details +--------+ + + + + | Date | Type | Department | Care Team | Description | +--------+ + + + + | 04/08/ | Hospital | [facility] | | | | 1994 - | Encounter | MED CTR GENERIC IP | | | | | | CONV DEPT [address] | | | | 04/09/ | | [place], | | | | 1992 | | [place] [address] | | | | | | [phone] | | | +--------+ + + + [...] | | | | | [place] [address] | | | | | | [phone] | | | | | | | | +--------+---------+ + + + documented as of this encounter Visit Diagnoses Not on filedocumented in this encounter"
--- OUTSIDE RECORDS SUMMARY | ~2019-02-24 | XMS | Clinical Summary ---
Demographics + + + | Address | [address] | | | [place] [address] | + + + | Home Phone | | + + + | Preferred Language | Unknown | + + + | Marital Status | | + + + | Pentecostalism Affiliation | PRE | + + + [...] Team Providers + +------+ + | Care Home Health Travel Ot Name | Role | Phone | + +------+ + | Parviz Brar DO | PCP | | + +------+ + Source Comments [facility] is fully live on both [facility] Ambulatory and [facility] InPatient.Formerly [facility] Allergies + + + + + + [...] | 3/20 | | e | | [place] | every six hours as | | [...] 3/20 | | e | | Aerosol, [place] | while awake. | | | 13 [...] | | | | | | | [address] | | + +--------+ +--------+ + +--------+ [...] | | al/Fam | | 1936 | [phone] | [place] [address] | | | leslie | | | [...]
--- OUTSIDE RECORDS SUMMARY | ~2019-02-24 | XMS | Encounter Summary ---
Demographics + + + | Address | [address] | | | [place] [address] | + + + | Home Phone [...] Organization | [facility] | | [...] Team Providers + +------+ + | Care Laundry Presser Name | Role | Phone | [...] | | | MD [address] | [place], | | | | | | [address] | [place] [address] | | | | | | [place], | Phone: | | | | | | [place] [address] | [phone] | | | | | | | Fax: | | | | | | | [phone] | +--------+ + + + + + Reason for Visit +--------+ + | Reason | Comments | +--------+ + | COPD | follow up from hospital | +--------+ + Encounter Details +--------+---------+ + + + | Date | Type | Department | Care Team | Description | +--------+---------+ + + + | 03/06/ | Office | [facility] | [place], | Chronic obstructive | | 2016 | Visit | PULMONARY [address] | Billy Segura MD | pulmonary disease, | | | | [place], | | unspecified COPD | | | | [place] [address] | | type (HCC); | | | | [phone] | | Nocturnal hypoxemia | | | | | | due to emphysema | | | | | | ([facility]); Prostate | | | | | | cancer ([facility]) | +--------+---------+ + + + [...] night at 2L. Electronically signed by Billy Castor MD at 12:27 PM PST documented in this encounter Progress Notes Billy Castro MD - 03/06/2015 11:40 AM PSTFormatting of this note might be differe nt from the original. Pulmonary Follow Up HPI Diego Lucas is a 79 y.o. male patient of Parviz Brar here today for follow up o f COPD. In January, he went in to [facility] after having a GI bleed, with dark [...] exercising reg ularly. He is walking at [facility] as it has been too cold to walk outside. He has not been coughing much. He had hemoptysis only for a couple of days, and this resol ed. He has been evaluated for nocturnal oxygen and does use it. He is currently on 2 LPM at [facility]. He reports good compliance. He required as much as 10L of oxygen in the hospital. Past Medical History Past Medical History Diagnosis Date Peptic ulcer disease with upper GI bleed Benign prostatic hypertrophy Osteoarthritis Heartburn Pulmonary nodules Shoulder fracture 02/2012 Foot fracture 02/2012 SVT (supraventricular tachycardia) 01/[address] Wilder for ablation Depression Prostate cancer ([facility]) 2007 s/p radiation treatment and on hormonal treatment with Lupron; DR BARKLEY [place] COPD (chronic obstructive pulmonary disease) ([facility]) DR BILLY CASTRO Pneumonia 05/2012 hospitalized [facility] Heart murmur DR MARIAA OLIVERA Cataracts, [...] Laterality: N/A; Surgeon: Jennifer Wilder MD; Location: [facility] ELECTROPHYSIOLOGY Egd and colonoscopy 02/06/2015 Dr. [...] No other animal exposures. Grew up in [place]. Then lived in [place]. Then moved to [place]. In the service lived [facility] and [place]. No recent travel. Allergies: Allergies Allergen Reactions [...] AILY 1 Inhaler 1 Respiratory [facility] Please provide an O2 concentrator while [...] Chronic obstructive pulmonary disease, unspecified COPD type ([facility]) J44.9 496 On Breo wit h good symptomatic improvement. Given that his anemia is also correcting, this likely accoun ts for some of his symptom improvement. He can switch the Atrovent to as needed only. 2. 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 We will continue this. G47.36 327.26 3. Prostate cancer ([facility]) C61 185 On Lupron therapy [...] to ensure accuracy; however, inadvertent computerized music historian errors may be pre sent. documented in [...] | | | | | [place] [address] | | | | | | [phone] | | | | | | | [...]
--- OUTSIDE RECORDS SUMMARY | ~2019-02-24 | XMS | Encounter Summary ---
Demographics + + + | Address | [address] | | | [place] [address] | + + + | Home Phone | | + + + | Preferred Language | Unknown | + + + | Marital Status | | + + + | Quaker Affiliation | 1076 | + + + | Race | Unknown | + + + | Ethnic Group | Unknown | + + + Author + + + | Author | [facility] | | | and [place] | + + + | Organization | [facility] | [...] Team Providers + +------+ + | Care Torpedo Specialist Name | Role | Phone | + +------+ + PCP | Unavailable | + +------+ + Encounter Details +--------+ + + + + | Date | Type | Department | Care Team | Description | +--------+ + + + + | 07/17/ | Hospital | [facility] | [place], | | | 2011 | Encounter | MED CTR XRAY [address] | Becca Segura MD | | | | | [place] | | | | | | [place] [address] | | | | | | [phone] | | | +--------+ + + + [...] | | | | | [place] [address] | | | | | | [phone] | | | | | | | [...] Performed At | + + + | [facility] Diagnostic Imaging Department | [facility] | | [address] [facility] | [facility] | | CHEST CT WITHOUT CONTRAST, 17 [...] Transcribed | | | Date/Time: 09/09/2011 14:01 Transportation Design Engineer: | | | <Electronically Signed by Krzysztof Jewell MD> 09/10/11 0719 | | + + + + + | Procedure Note | + + | [facility] Albert Conversion - 03/31/2013 5:43 PM [facility] | | Diagnostic Imaging Department | | [address] [facility] | | | | | [...] | Transcribed Date/Time: 09/09/2011 14:01 | | Transportation Design Engineer: | | <Electronically Signed by Krzysztof Jewell [...]
--- OUTSIDE RECORDS SUMMARY | ~2019-02-24 | XMS | Encounter Summary ---
Demographics + + + | Address | [address] | | | [place] [address] | + + + | Home Phone [...] | Organization | [facility] [...] Team Providers + +------+ + | Care Weight And Balance Control Agent Name | Role | Phone | [...] + + | 04/09/ | Telephone | [facility] | Jorje Rutledge | Prostate Cancer | | 2016 | | [address] | MD [address] | (RESULTS) | | | | [place], [place] | [address] [facility] | | | | | [address] | [place] [address] | | | | | [phone] | [phone] | | | | | | | [...] | | | | | [place] [address] | | | | | | [phone] | | | | | | | | +--------+---------+ + + + documented as of this encounter Visit Diagnoses Not on filedocumented in this encounter"
--- OUTSIDE RECORDS SUMMARY | ~2019-02-24 | XMS | Encounter Summary ---
Demographics + + + | Address | [address] | | | [place] [address] | + + + | Home Phone [...] | Organization | [facility] | | [...] Team Providers + +------+ + | Care Guide Excursion Name | Role | Phone | + [...] Segura MD | | | | | [place], | | | | | | [place] [address] | | | | | | [phone] | | | +--------+ + + + [...] | | | | | [place] [address] | | | | | | [phone] | | | | | | | | +--------+---------+ + + + documented as of this encounter Visit Diagnoses Not on filedocumented in this encounter"
--- OUTSIDE RECORDS SUMMARY | ~2019-02-24 | XMS | Encounter Summary ---
Demographics + + + | Address | [address] | | | [place] [address] | + + + | Home Phone [...] | Organization | [facility] [...] Providers + +------+ + | Care Senior Formulation Scientist Name | Role | Phone | + +------+ + PCP | Unavailable | + +------+ + Encounter Details +--------+ + + + + | Date | Type | Department | Care Team | Description | +--------+ + + + + | 04/08/ | Hospital | [facility] | | | | 1994 - | Encounter | MED CTR GENERIC IP | | | | | | CONV DEPT [address] | | | | 04/09/ | | [place], | | | | 1992 | | [place] [address] | | | | | | [phone] | | | +--------+ + + + [...] | | | | | [place] [address] | | | | | | [phone] | | | | | | | | +--------+---------+ + + + documented as of this encounter Visit Diagnoses Not on filedocumented in this encounter"
--- OUTSIDE RECORDS SUMMARY | ~2019-02-24 | XMS | Encounter Summary ---
Demographics + + + | Address | [address] | | | [place] [address] | + + + | Home Phone [...] Organization | [facility] | [...] Team Providers + +------+ + | Care Hourly Sign Language Interpreter Name | Role | Phone | + [...] [address] | Becca Segura MD | [facility]) | | | | [place], | | | | | | [place] [address] | | | | | | [phone] | | | +--------+ + + + [...] | | | | | [place] [address] | | | | | | [phone] | | | | | | | | +--------+---------+ + + + documented as of this encounter Visit Diagnoses Not on filedocumented in this encounter"
--- OUTSIDE RECORDS SUMMARY | ~2019-02-24 | XMS | Encounter Summary ---
Demographics + + + | Address | [address] | | | [place] [address] | + + + | Home Phone [...] | [facility] | | [...] Providers + +------+ + | Care Tube Station Attendant Name | Role | Phone | [...] | | | | | | [place] [address] | | | | | | [phone] | | | +--------+--------+ + + + [...] | | | | | [place] [address] | | | | | | [phone] | | | | | | | | +--------+---------+ + + + documented as of this encounter Visit Diagnoses Not on filedocumented in this encounter"
--- OUTSIDE RECORDS SUMMARY | ~2019-02-24 | XMS | Encounter Summary ---
Demographics + + + | Address | [address] | | | [place] [address] | + + + | Home Phone [...] | Organization | [facility] [...] Team Providers + +------+ + | Care Kitchen Bath Designer Name | Role | Phone | [...] RN | obstructive | | | | [place], | | pulmonary disease) | | | | [place] [address] | | ([facility]LY [facility]) | | | | [phone] | | | +--------+ + + + [...] | | | | | [place] [address] | | | | | | [phone] | | | | | | | | +--------+---------+ + + + documented as of this encounter Visit Diagnoses + + | Diagnosis | + + | COPD (chronic obstructive pulmonary disease) (HCC) Chronic airway obstruction, not | | elsewhere classified | + + documented in this encounter"
--- OUTSIDE RECORDS SUMMARY | ~2019-02-24 | XMS | Encounter Summary ---
Demographics + + + | Address | [address] | | | [place] [address] | + + + | Home Phone [...] + | Organization | [facility] | | [...] Team Providers + +------+ + | Care Bowling Ball Patcher Name | Role | Phone | + [...] 2018 | | GASTROENTEROLOGY | [address] [place] | | | | | [address] [place] | [address] [place], [place] | | | | | [address] [place], [place] | [address] | | | | | [address] | | | | | | [phone] | | | +--------+ + + + [...] | | | | | [place] [address] | | | | | | [phone] | | | | | | | [...]
--- OUTSIDE RECORDS SUMMARY | ~2019-02-24 | XMS | Clinical Summary ---
Demographics + + + | Address | [address] | | | [place] [address] | + + + | Home Phone [...] | Organization | [facility] [...] Team Providers + +------+ + | Care Malt House Supervisor Name | Role | Phone | [...] + + + | Overview: S/p XRT [facility] with Dr. Garza | | [...] | Visit | | MD Tim | ([facility]) (Primary Dx); | | [...] | | | | | [place] [address] | | | | | | [phone] | | | | | | | [...] 1.001 - 1.030 | | | | [place], | | | | | | [facility], [...] +--------+ +---------+--------+ | MEDICARE | MEDICA | [id number] | | [phone] | | Medica | | | RE | | 013-Pr | 5 | | re | | | PART A | | esent | | | | | | AND B | | | | | | + +--------+ +--------+ +---------+--------+ | [employer] | [employer] | [id number] | | [phone] | | Indemn | | | OF | | 018-Pr | 0 | | ity | | | [place] | | esent | | | | [...] | | al/Fam | | 1936 | [phone] | [place] [address] | | | leslie | | | 3 (Home) | | + +--------+ +--------+ + + Advance Directives + + + + + | Type | Date Recorded | Patient | Explanation | | | | Clinical Nurse Specialist | | + + + + + | Power of | | | | | Fisher Trammel Net | | | | + + + + + | Advance | 03/19/2014 5:21 | | POLST | | Directive | AM | | | + + + + +
--- OUTSIDE RECORDS SUMMARY | ~2019-02-24 | XMS | Encounter Summary ---
Demographics + + + | Address | [address] | | | [place] [address] | + + + | Home Phone [...] | Organization | [facility] | | | and [place] [...] Team Providers + +------+ + | Care Virtual Customer Assistant Name | Role | Phone | [...] [address] | | | | | [place], [place] | [address] | | | | | [address] | [place] [address] | | | | | [phone] | [phone] | | | | | | | [...] | | | | | [place] [address] | | | | | | [phone] | | | | | | | [...] [address] | [place] | [phone] | | [facility] | | [address] | | | - LABORATORY | | | | + + + + + documented in this encounter Visit Diagnoses Not on filedocumented in this encounter"
--- OUTSIDE RECORDS SUMMARY | ~2019-02-24 | XMS | Encounter Summary ---
Demographics + + + | Address | [address] | | | [place] [address] | + + + | Home Phone [...] Organization | [facility] | [...] Team Providers + +------+ + | Care Stogy Maker Name | Role | Phone | [...] | | | [place] | [address] [facility] | History of prostate | | | | [address] | [place] [address] | cancer | | | | [phone] | [phone] | | | | | | | [...] | | | | | | [place] [address] | | | | | | [phone] | | | | | | | [...]
--- OUTSIDE RECORDS SUMMARY | ~2019-02-24 | XMS | Encounter Summary ---
Demographics + + + | Address | [address] | | | [place] [address] | + + + | Home Phone [...] | [facility] | | | and [place] | + + + | Organization | [facility] | | | and [place] [...] Team Providers + +------+ + | Care Refrigeration Installer Name | Role | Phone | [...] Provider Unknown | | | | | [place], [place] | [phone] | | | | | [address] | | | | | | [phone] | | | +--------+ + + + [...] | | | | | [place] [address] | | | | | | [phone] | | | | | | | [...]
--- OUTSIDE RECORDS SUMMARY | ~2019-02-24 | XMS | Encounter Summary ---
Demographics + + + | Address | [address] | | | [place] [address] | + + + | Home Phone [...] | Organization | [facility] [...] Team Providers + +------+ + | Care Exhibit Display Representative Name | Role | Phone | [...] | pulmonary | Becca Segura | [address] | | | | | nodule | [address] [place] | | | | | Procedures | [address] | [place], [place] | | | | | CT Chest wo | [place], | [address] | | | | | Contrast | [place] [address] | Phone: | | | | | | | [phone] | | | | | | | Fax: | | | | | | | [phone] | +--------+--------+ + + + + Encounter Details +--------+ + + + + | Date | Type | Department | Care Team | Description | +--------+ + + + + | 09/06/ | Hospital | [facility] | [place], | Solitary pulmonary | | 2012 | Encounter | MED CTR XRAY [address] | Becca Segura MD | nodule | | | | [place] | | | | | | [place] [address] | | | | | | [phone] | | | +--------+ + + + [...] patient per request of Dr. Castro. To law office receptionist to schedule appt and follow up [...] | | | | | [place] [address] | | | | | | [phone] | | | | | | | [...] Performed At | + + + | [facility] Diagnostic [facility] | [place] | | Department [address] [place] [address] | [facility] | | [ rep ct street1+2] [ rep ct [facility] | | st zip] Signed | - IMAGING | | | | | Patient Name: DIEGO LUCAS Physician: | | | MAGDA. : 1935 Age: 76 Sex: M Unit #: [id number] | | | Exam Date: 09/06/12 Location: [facility] | | | Report #: [id number] Page: | | | %(RAD)RES..mtdd.print.filter("pg") of %(RAD) | | | RES..mtdd.print.filter("tpg") | | | | | | Accession Number: [id number] | | | CT CHEST WITHOUT CONTRAST [...] Transcribed | | | Date/Time: 09/06/2012 16:10 Certified Ski Patroller: ALEXSANDRA | | | <<Signature on File>> | | | | | | Gurdeep Diaz MD09/07/12 0729 <Electronically signed by | | | Gurdeep Diaz MD> Gurdeep Diaz MD 09/06/12 | | | 1347 Certified Ski Patroller: GoChongo Lgontocridrel43/16/13 1610 | | | Becca Castro MD | | + + + + + + + + | Performing | Address | City/State/Zipcode | Phone Number | | Organization | | | | + + + + + | [facility] | [address] | [place] | [phone] | | [facility] | | [address] | | | - IMAGING | | | | + + + + + documented in this encounter Visit Diagnoses + + | Diagnosis | + + | Solitary pulmonary nodule | + + documented in this encounter
--- OUTSIDE RECORDS SUMMARY | ~2019-02-24 | XMS | Encounter Summary ---
Demographics + + + | Address | [address] | | | [place] [address] | + + + | Home Phone [...] + | Organization | [facility] [...] + +------+ + | Care Director Of Personnel Name | Role | Phone | + [...] + + | 01/27/ | Refill | [facility] | Jorje Rutledge | Medication Refill | | 2019 | | [address] | MD [address] | | | | | [place], [place] | [address] [facility] | | | | | [address] | [place] [address] | | | | | [phone] | [phone] | | | | | | | [...] | | | | | [place] [address] | | | | | | [phone] | | | | | | | | +--------+---------+ + + + documented as of this encounter Visit Diagnoses Not on filedocumented in this encounter"
--- OUTSIDE RECORDS SUMMARY | ~2019-02-24 | XMS | Encounter Summary ---
Demographics + + + | Address | [address] | | | [place] [address] | + + + | Home Phone [...] Team Providers + +------+ + | Care Christmas Tree Contractor Name | Role | Phone | + [...] | | | | | | Rd [facility] | [place], [place] | | | | | | Hospital | [address] | | | | | | [place], [place] | Phone: | | | | | | [address] | [phone] | | | | | | Phone: | Fax: | | | | | | [phone] | [phone] | +--------+--------+ + + + + Encounter Details +--------+---------+ + + + | Date | Type | Department | Care Team | Description | +--------+---------+ + + + | 06/20/ | Office | Otolaryngology | Desiree [place]on, | Epistaxis (Primary | | 2012 | Visit | Laryngology Services | MD | Dx) | | | | at [facility] [address] | | | | | | [place], | | | | | | [place] [address] | | | | | | [phone] | | | +--------+---------+ + + + [...] 06/20/2012 2:27 PM PDTThank you for choosing [facility] Department of Otolaryngology for your health care needs. If you need to speak to an ENT physician after normal business hours, please call [phone] and ask to have the ENT phys davey concrete mason paged. No nose blowing for two weeks. Saline nasal spray, 2 sprays 3-4 times daily documented in this encounter Progress Notes Desiree [place] MD - 06/20/2012 2:21 PM PDTFormatting of this note might be different fr om the original. PATIENT: Diego Lucas [facility] MR#: [id number] : 1935 REQUESTING PROVIDER: No Referring Provider Per Patient NO REFERRING PROVIDER PER PT PRIMARY CARE PROVIDER: Parviz Brar DO CLINIC: [facility] CHIEF COMPLAINT: Chief Complaint Patient presents with Nose bleed HPI: Diego Lucas is a 76 y.o. male who presents to the [facility] [...] severe pain. oxymetazoline 0.05 % Nasal Aerosol, [place] Instill 2 Sprays into each nostril every six hours as needed (Epistaxis). Use for only 3 days. polyethylene glycol 17 gram/dose Oral Powder Take 17 g by mouth once daily. sodium chloride 0.65 % Nasal Aerosol, [place] Instill 2 Sprays in nose every two [...] well. I have recommended that he use [place] or a formulary equiv alent, 2 sprays [...] Lucas [facility]. He plans to re turn to [place] with his after this. I would be [...] | + +--------+ + + + | [place] NASAL/SINUS | Routin | 06/20/2012 | Epistaxis [...]
--- OUTSIDE RECORDS SUMMARY | ~2019-02-24 | XMS | Encounter Summary ---
Demographics + + + | Address | [address] | | | [place] [address] | + + + | Home Phone [...] | [facility] [...] Providers + +------+ + | Care Machine Maintenance Supervisor Name | Role | Phone | [...] | pulmonary | Becca B, | [address] | | | | | nodule | MD [address] [place] | | | | | Procedures | [address] | [place], [place] | | | | | CT Chest wo | [place], | [address] | | | | | Contrast | [place] [address] | Phone: | | | | | | | [phone] | | | | | | | Fax: | | | | | | | [phone] | +--------+--------+ + + + + Encounter [...] nodule (Primary Dx) | | | | [place], | | | | | | [place] [address] | | | | | | [phone] | | | +--------+ + + + [...] | | | | | [place] [address] | | | | | | [phone] | | | | | | | | +--------+---------+ + + + documented as of this encounter Results CT Chest wo Contrast (09/06/2012 1:47 PM PDT) + + | Specimen | + + | | + + + + + | Narrative | Performed At | + + + | [facility] Diagnostic Imaging | [place] | | Department [address] [place] [address] [facility] | | [ rep ct street1[address]] [ rep [facility] | | st zip] Signed | - IMAGING | | | | | Patient Name: OLGA LUCAS Physician: | | | MAGDA. : 1935 Age: 76 Sex: M Unit #: [id number] | | | Exam Date: 09/06/12 Location: [facility] | | | Report #: [id number] Page: | | | %(RAD)RES..mtdd.print.filter("pg") of %(RAD) | | | RES..mtdd.print.filter("tpg") | | | | | | Accession Number: [id number] | | | CT CHEST WITHOUT CONTRAST [...] Transcribed | | | Date/Time: 09/06/2012 16:10 Mailing Machine Assistant: ALEXSANDRA | | | <<Signature on File>> | | | | | | Gurdeep Diaz MD09/07/12 0729 <Electronically signed by | | | Gurdeep Diaz MD> Gurdeep Diaz MD 09/06/12 | | | 1347 Mailing Machine Assistant: Yeeply Mobile Uicxdawdxcyev88/16/13 1610 | | | Becca Castro MD | | + + + + + + + + | Performing | Address | City/State/Zipcode | Phone Number | | Organization | | | | + + + + + | [facility] | [address] | [place] | [phone] | | [facility] | | [address] | | | - IMAGING | | | | + + + + + documented in this encounter Visit Diagnoses + + | Diagnosis | + + | Solitary pulmonary nodule - Primary | + + documented in this encounter
--- OUTSIDE RECORDS SUMMARY | ~2019-02-24 | XMS | Encounter Summary ---
Demographics + + + | Address | [address] | | | [place] [address] | + + + | Home Phone [...] Organization | [facility] [...] Team Providers + +------+ + | Care Cane Flume Watchman Name | Role | Phone | + [...] MD | Qvar) | | | | [place], | | | | | | [place] [address] | | | | | | [phone] | | | +--------+ + + + [...] | | | | | [place] [address] | | | | | | [phone] | | | | | | | | +--------+---------+ + + + documented as of this encounter Visit Diagnoses Not on filedocumented in this encounter"
--- OUTSIDE RECORDS SUMMARY | ~2019-02-24 | XMS | Encounter Summary ---
Demographics + + + | Address | [address] | | | [place] [address] | + + + | Home Phone [...] Organization | [facility] | | | [...] Team Providers + +------+ + | Care Athlete Manager Name | Role | Phone | [...] | | | | | | [place] [address] | | | | | | [phone] | | | +--------+--------+ + + + [...] | | | | | [place] [address] | | | | | | [phone] | | | | | | | | +--------+---------+ + + + documented as of this encounter Visit Diagnoses Not on filedocumented in this encounter"
--- OUTSIDE RECORDS SUMMARY | ~2019-02-24 | XMS | Encounter Summary ---
Demographics + + + | Address | [address] | | | [place] [address] | + + + | Home Phone [...] | Organization | [facility] | | | [...] Providers + +------+ + | Care Senior Mainframe Developer Name | Role | Phone | + +------+ + PCP | Unavailable | + +------+ + Encounter Details +--------+ + + + + | Date | Type | Department | Care Team | Description | +--------+ + + + + | 03/31/ | Hospital | [facility] | | | | 1994 | Encounter | MED CTR LABORATORY | | | | | | [address] | | | | | | [place] | | | | | | [address] | | | | | | [phone] | | | +--------+ + + + [...] | | | | | | [place] [address] | | | | | | [phone] | | | | | | | | +--------+---------+ + + + documented as of this encounter Visit Diagnoses Not on filedocumented in this encounter"
--- OUTSIDE RECORDS SUMMARY | ~2019-02-24 | XMS | Encounter Summary ---
Demographics + + + | Address | [address] | | | [place] [address] | + + + | Home Phone | | + + + | Preferred Language | Unknown | + + + | Marital Status | | + + + | Nondenominational Affiliation | 1076 | + + + | Race | Unknown | + + + | Ethnic Group | Unknown | + + + Author + + + | Author | [facility] | | | and [place] | + + + | Organization | [facility] | | | and [place] [...] + +------+ + | Care Director Of Development Name | Role | Phone | + [...] 2018 | | GASTROENTEROLOGY | [address], [place] | | | | | [address] [place] | [address] [place], [place] | | | | | [address] [place], [place] | [address] | | | | | [address] | | | | | | [phone] | | | +--------+ + + + [...] | | | | | [place] [address] | | | | | | [phone] | | | | | | | | +--------+---------+ + + + documented as of this encounter Visit Diagnoses Not on filedocumented in this encounter"
--- OUTSIDE RECORDS SUMMARY | ~2019-02-24 | XMS | Encounter Summary ---
Demographics + + + | Address | [address] | | | [place] [address] | + + + | Home Phone [...] + | Organization | [facility] [...] Team Providers + +------+ + | Care Composite Layup Worker Name | Role | Phone | [...] Segura MD | | | | | [place], | | | | | | [place] [address] | | | | | | [phone] | | | +--------+ + + + [...] | | | | | [place] [address] | | | | | | [phone] | | | | | | | | +--------+---------+ + + + documented as of this encounter Visit Diagnoses Not on filedocumented in this encounter"
--- OUTSIDE RECORDS SUMMARY | ~2019-02-24 | XMS | Encounter Summary ---
Demographics + + + | Address | [address] | | | [place] [address] | + + + | Home Phone | | + + + | Preferred Language | Unknown | + + + | Marital Status | | + + + | Yazdanism Affiliation | 1076 | + + + | Race | Unknown | + + + | Ethnic Group | Unknown | + + + Author + + + | Author | [facility] | | | and [place] | + + + | Organization | [facility] | | | [...] Team Providers + +------+ + | Care Solidworks Mechanical Designer Name | Role | Phone | + +------+ + | Parviz Brar DO | PCP | | + +------+ + Encounter Details +--------+ + + + + | Date | Type | Department | Care Team | Description | +--------+ + + + + | 04/03/ | Hospital | [facility] | Jorje Rutledge | | | 2016 | Encounter | MED CTR LABORATORY | MD [address] | | | | | [address] [place] | [place] | | | | | [place], [place] | [place] [address] | | | | | [address] | [phone] | | | | | [phone] | | | +--------+ + + + [...] | | | | | [place] [address] | | | | | | [phone] | | | | | | | | +--------+---------+ + + + documented as of this encounter Visit Diagnoses Not on filedocumented in this encounter"
--- OUTSIDE RECORDS SUMMARY | ~2019-02-24 | XMS | Encounter Summary ---
Demographics + + + | Address | [address] | | | [place] [address] | + + + | Home Phone [...] | Organization | [facility] [...] Team Providers + +------+ + | Care Geodesy Teacher Name | Role | Phone | + +------+ + PCP | Unavailable | + +------+ + Encounter Details +--------+ + + + + | Date | Type | Department | Care Team | Description | +--------+ + + + + | 11/23/ | Hospital | [facility] | | | | 2008 - | Encounter | MED CTR CANCER | | | | | | CENTER [address] | | | | 12/22/ | | [place] | | | | 2008 | | [address] | | | | | | [phone] | | | +--------+ + + + [...] | | | | | [place] [address] | | | | | | [phone] | | | | | | | | +--------+---------+ + + + documented as of this encounter Visit Diagnoses Not on filedocumented in this encounter"
--- OUTSIDE RECORDS SUMMARY | ~2019-02-24 | XMS | Encounter Summary ---
Demographics + + + | Address | [address] | | | [place] [address] | + + + | Home Phone [...] Organization | [facility] | | | and [...] Team Providers + +------+ + | Care Moisture Meter Reader Name | Role | Phone | + [...] | RN | | | | | [place], | | | | | | [place] [address] | | | | | | [phone] | | | +--------+ + + + [...] | | | | | [place] [address] | | | | | | [phone] | | | | | | | | +--------+---------+ + + + documented as of this encounter Visit Diagnoses Not on filedocumented in this encounter"
--- OUTSIDE RECORDS SUMMARY | ~2019-02-24 | XMS | Encounter Summary ---
Demographics + + + | Address | [address] | | | [place] [address] | + + + | Home Phone [...] | [facility] [...] Team Providers + +------+ + | Care Cofounder Name | Role | Phone | + [...] | RN | | | | | [place], | | | | | | [place] [address] | | | | | | [phone] | | | +--------+ + + + [...] | | | | | [place] [address] | | | | | | [phone] | | | | | | | | +--------+---------+ + + + documented as of this encounter Visit Diagnoses Not on filedocumented in this encounter"
--- OUTSIDE RECORDS SUMMARY | ~2019-02-24 | XMS | Encounter Summary ---
Demographics + + + | Address | [address] | | | [place] [address] | + + + | Home Phone [...] Organization | [facility] | | [...] Team Providers + +------+ + | Care Rate Manager Name | Role | Phone | + +------+ + PCP | Unavailable | + +------+ + Encounter Details +--------+ + + + + | Date | Type | Department | Care Team | Description | +--------+ + + + + | 04/08/ | Hospital | [facility] | | | | 1994 - | Encounter | MED CTR GENERIC IP | | | | | | CONV DEPT [address] | | | | 04/09/ | | [address] [place], | | | | 1992 | | [place] [address] | | | | | | [phone] | | | +--------+ + + + [...] | | | | | [place] [address] | | | | | | [phone] | | | | | | | | +--------+---------+ + + + documented as of this encounter Visit Diagnoses Not on filedocumented in this encounter"
--- OUTSIDE RECORDS SUMMARY | ~2019-02-24 | XMS | Encounter Summary ---
Demographics + + + | Address | [address] | | | [place] [address] | + + + | Home Phone [...] | [facility] | | | and [...] Team Providers + +------+ + | Care Account Adjuster Name | Role | Phone | [...] Gastrointest | [address] | [address], | | | | | inal | [address], [place] | [address] | | | | | hemorrhage, | [address] [place] | [place], | | | | | unspecified | [place], [place] | [place] [address] | | | | | gastrointest | [address] | Phone: | | | | | inal | Phone: | [phone] | | | | | hemorrhage | [phone] | Fax: | | | | | type | Fax: | [phone] | | | | | Procedures | [phone] | | | | | | [place] GI IMAG | | | | | [...] + + | 10/01/ | Telephone | [facility] | Froylan Werner MD | Other (request auth | | 2016 | | GASTROENTEROLOGY | [address] [place] | for SBCE ([employer]ill[employer])) | | | | [address] [place] | [address] [place] [facility] [place] | | | | | [address] [employer] [place] | [address] | | | | | [address] | | | | | | [phone] | | | +--------+ + + + [...] | | | | | [place] [address] | | | | | | [phone] | | | | | | | [...]
--- OUTSIDE RECORDS SUMMARY | ~2019-02-24 | XMS | Encounter Summary ---
Demographics + + + | Address | [address] | | | [place] [address] | + + + | Home Phone [...] | Organization | [facility] | | | [...] Providers + +------+ + | Care Corporate Sales Representative Name | Role | Phone [...] [address] | | | | | [place], [place] | [address] [facility] | | | | | [address] | [place] [address] | | | | | [phone] | [phone] | | | | | | | [...] | | | | | [place] [address] | | | | | | [phone] | | | | | | | | +--------+---------+ + + + documented as of this encounter Visit Diagnoses Not on filedocumented in this encounter"
--- OUTSIDE RECORDS SUMMARY | ~2019-02-24 | XMS | Encounter Summary ---
Demographics + + + | Address | [address] | | | [place] [address] | + + + | Home Phone [...] Organization | [facility] | | [...] Providers + +------+ + | Care Retail Shift Manager Name | Role | Phone | [...] + + | 12/18/ | Office | [facility] | [place], | COPD (chronic | | 2013 | Visit | PULMONARY [address] | Becca Segura MD | obstructive | | | | [place], | | pulmonary disease) | | | | [place] [address] | | (Primary Dx); | | | | [phone] | | Nocturnal hypoxemia | | | [...] He is [facility]. He reports good compliance. [...] home. No other animal exposures.Grew up in [place]. Then lived in [place]. Then move d to [place]. In the service lived in [facility] and [place]. No recent travel. Allergies: [...] into the lungs nightly. Respiratory Therapy Supplies [facility] [...] to ensure accuracy; however, inadvertent computerized clinical applications manager errors may be pre sent. Electronically signed [...] | | | | | [place] [address] | | | | | | [phone] | | | | | | | [...]
--- OUTSIDE RECORDS SUMMARY | ~2019-02-24 | XMS | Encounter Summary ---
Demographics + + + | Address | [address] | | | [place] [address] | + + + | Home Phone [...] | Organization | [facility] | | | and [...] Team Providers + +------+ + | Care Lay Out Technician Name | Role | Phone | + +------+ + PCP | Unavailable | + +------+ + Encounter Details +--------+ + + + + | Date | Type | Department | Care Team | Description | +--------+ + + + + | 11/02/ | Hospital | [facility] | | | | 2007 - | Encounter | MED CTR CANCER | | | | | | CENTER [address] | | | | 11/21/ | | [place] | | | | 2007 | | [address] | | | | | | [phone] | | | +--------+ + + + [...] | | | | | [place] [address] | | | | | | [phone] | | | | | | | | +--------+---------+ + + + documented as of this encounter Visit Diagnoses Not on filedocumented in this encounter"
--- OUTSIDE RECORDS SUMMARY | ~2019-02-24 | XMS | Encounter Summary ---
Demographics + + + | Address | [address] | | | [place] [address] | + + + | Home Phone [...] + | Organization | [facility] | | | and [place] [...] Team Providers + +------+ + | Care Claim Administrator Name | Role | Phone | [...] [address] | | | | | [place], [place] | [address] | | | | | [address] | [place] [address] | | | | | [phone] | [phone] | | | | | | | [...] | | | | | [place] [address] | | | | | | [phone] | | | | | | | [...] [address] | [place] | [phone] | | [facility] | | [address] | | | - LABORATORY | | | | + + + + + documented in this encounter Visit Diagnoses Not on filedocumented in this encounter"
--- OUTSIDE RECORDS SUMMARY | ~2019-02-24 | XMS | Encounter Summary ---
Demographics + + + | Address | [address] | | | [place] [address] | + + + | Home Phone [...] | Organization | [facility] | [...] Team Providers + +------+ + | Care Insights Strategist Name | Role | Phone | + [...] [address] | | | | | [place], [place] | [address] [facility] | | | | | [address] | [place] [address] | | | | | [phone] | [phone] | | | | | | | [...] | | | | | [place] [address] | | | | | | [phone] | | | | | | | | +--------+---------+ + + + documented as of this encounter Visit Diagnoses Not on filedocumented in this encounter"
--- OUTSIDE RECORDS SUMMARY | ~2019-02-24 | XMS | Encounter Summary ---
Demographics + + + | Address | [address] | | | [place] [address] | + + + | Home Phone [...] Team Providers + +------+ + | Care Housekeeping Supervisor Name | Role | Phone | [...] + + | 06/06/ | Emergency | [facility] Emergency | [place], | | | 2012 - | | Department [address] | MD Michael | | | | | [address] | [place] | | | 06/07/ | | [facility] | [facility] | | | 2012 | | Nursery, [place] | [place] [address] [place] | | | | | [address] | EMERGENCY | | | | | [phone] | [place] [address] | | | | | | [phone] | | | | | | | | | | | | Jean-Pierre Bruno MD | | | | | | [address] | | | | | | [place], | | | | | | [place] [address] | | | | | | [phone] | | | | | | | [...] still bleeding, return to the ED. 3) [place]'s spray Twice a day to both nostrils [...] "Nosebleeds: After Your Visit", log into your [employer] account at [email or web address]:/ [email or web address]. You can enter [email or web address] in the Dr. Scribbles" search box. Not on ProofPilot? Review the MedPlexushart section of your After Visit Summary for directions on whitney w to sign up. [phone] [employer]. Care instructions adapted under license by [facility] [employer] [place]. This care instruction is for use with your licensed healthHatchbuck e professional. If you have questions about a medical condition or this instruction, always ask your healthcare professional. [employer] disclaims any warranty or liabili ty for your use of this information. Content Version: 9.6.972195; Last Revised: August 19, 2011 documented in [...] [facility] | [address] | [place] [address] | | | SERVICES, CORE | PARK [...] | | | % nasal spray 2 Noti 2 spray, | | 13 8:12 | [...] | | | % nasal spray 2 Noti 2 spray, | | 13 11:27 | [...] | | 0.65 % nasal spray 2 Noti 2 | | 13 7:50 | | | | | spray, both nostrils, ONCE, 1 | | PM PDT | | | | | dose, 06/06/12 at 2030 | | | | | | + +-------+ + +---+---+ +---+---+ | | | +---+---+ documented in this encounter
--- OUTSIDE RECORDS SUMMARY | ~2019-02-24 | XMS | Encounter Summary ---
Demographics + + + | Address | [address] | | | [place] [address] | + + + | Home Phone [...] | [facility] | | [...] Team Providers + +------+ + | Care School Age Teacher Name | Role | Phone | [...] | RN | | | | | [place], | | | | | | [place] [address] | | | | | | [phone] | | | +--------+ + + + [...] | | | | | [place] [address] | | | | | | [phone] | | | | | | | | +--------+---------+ + + + documented as of this encounter Visit Diagnoses Not on filedocumented in this encounter"
--- OUTSIDE RECORDS SUMMARY | ~2019-02-24 | XMS | Encounter Summary ---
Demographics + + + | Address | [address] | | | [place] [address] | + + + | Home Phone [...] | Organization | [facility] | | | and [...] Team Providers + +------+ + | Care Ip Attorney Name | Role | Phone | [...] | | Abnormal | [place], | [address] | | | | | chest CT | Becca B, | [place], | | | | | Procedures | MD [address] | [place] [address] | | | | | CT Chest wo | [address] | Phone: | | | | | Contrast | [place], | [phone] | | | | | | [place] [address] | Fax: | | | | | | | [phone] | +--------+--------+ + + + + Reason [...] (Primary Dx); COPD | | | | [address] [place], | | (chronic obstructive | | | | [place] [address] | | pulmonary disease) | | | | [phone] | | ([facility]); Pneumonia | +--------+---------+ + + + [...] original. Pulmonary Follow Up Becca Castro MD [place] [facility] [address] [place], [address] [facility] Diego Lucas is a 76 y.o. male [...] He was hospitalized for t his at [facility] in May. He was in the [...] good compliance, except when he was in [place]. Past Medical History Past Medical History Diagnosis Date COPD (chronic obstructive pulmonary disease) Peptic ulcer disease with upper GI bleed Benign prostatic hypertrophy Prostate cancer s/p radiation treatment and on hormonal treatment with Lupron Osteoarthritis Heartburn Pulmonary nodules Cataracts, bilateral Pneumonia 05/2012 hospitalized [facility] Shoulder fracture 02/2012 Foot fracture 02/2012 [...] home. No other animal exposures.Grew up in [place]. Then lived in [place]. Then move d to [place]. In the service lived in [facility] and [place]. No recent travel. Allergies: Allergies Allergen Reactions [...] janee for which he was hospitalized at [facility]. Last PSA was 2, and these [...] he becomes ill. Plan 1.Get imaging from [facility]. 2.Repeat chest CT scan in 3 months. 3.Continue Flovent and Atrovent. He was advised to call if new pulmonary symptoms were to develop. Return to clinic in 3 months with repeat chest CT, or sooner with concerns. CC: Parviz Brar Portions of this report were transcribed using voice recognition software. Every effort wa s made to ensure accuracy; however, inadvertent computerized visual merchandising assistant errors may be pre sent. documented [...] | | | | | [place] [address] | | | | | | [phone] | | | | | | | | +--------+---------+ + + + documented as of this encounter Results CT Chest wo Contrast (10/27/2012 3:21 PM PDT) + + | Specimen | + + | | + + + + + | Narrative | Performed At | + + + | [facility] Diagnostic Imaging | [place] | | Department [address] [facility] | [facility] | | [ rep ct [address]] [ rep [facility] | | [facility]] Signed | - IMAGING | | | | | Patient Name: DIEGO LUCAS Physician: | | | . : 1935 Age: 76 Sex: M Unit #: [id number] | | | Exam Date: 10/27/12 [place] [facility] | | | Report #: [id number] Page: | | | %(RAD)RES..mtdd.print.filter("pg") of %(RAD) | | | RES..mtdd.print.filter("tpg") | | | | | | Accession Number: [id number] | | | [id number] CHEST CT CLINICAL HISTORY: FOLLOWUP | | [...] | | | Transcribed Date/Time: 10/27/2012 16:01 Work Station Support Specialist: | | | <<Signature on File>> | | | Yosef | | | MD Jimmie10/27/122003 <Electronically signed by Yosef Samuel MD> | | | Yosef Samuel MD 10/27/12 1521 Work Station Support Specialist: [employer] | | | Tagghteahubpb41/05/13 1601 Becca Castro MD | | | | | + + + + + + + + | Performing | Address | City/State/Zipcode | Phone Number | | Organization | | | | + + + + + | [facility] | [address] | [place] | [phone] | | [facility] | | [address] | | | - IMAGING | | [...]
--- OUTSIDE RECORDS SUMMARY | ~2019-02-24 | XMS | Encounter Summary ---
Demographics + + + | Address | [address] | | | [place] [address] | + + + | Home Phone [...] Team Providers + +------+ + | Care Marketing Graphics Specialist Name | Role | Phone | [...] + + | 03/02/ | Office | [facility] | Jorje Rutledge | Prostate cancer | | 2018 | Visit | [address] | [address] | ([facility]) (Primary Dx) | | | | [place], [place] | [facility] | | | | | [address] | [place] [address] | | | | | [phone] | [phone] | | | | | | | [...] a 81 y.o. male patient of Parviz Barr being seen today for follow-up of Prost [...] bilateral; COPD (chronic obstructive pu lmonary disease) ([facility]); Depression; Diverticulosis (01/2015); Foot fracture (02/2012); Gastri tis (01/2015); GI bleed (01/2015); Heart murmur; Heartburn; Hiatal hernia (01/2015); History of rectal bleeding; Hypertension; Insomnia; Kidney stone (2004); Lumbar disc herniation; Mi graines; Mood disorder ([facility]) of unknown (axis III) etiology; Nocturnal hypoxia; Osteoarthrit is; Peptic ulcer disease; Pneumonia (05/2012); Prostate cancer ([facility]) (2007); Pulmonary nodule s; Shoulder fracture (02/2012); Supplemental oxygen dependent; SVT (supraventricular tachycar anushka) ([facility]) (01/2014); and TIA (transient ischemic attack). [...] by mouth Daily. 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 Occasional wrong- word or [...] | | | | | [place] [address] | | | | | | [phone] | | | | | | | | +--------+---------+ + + + + +------+--------+ + + | Name | Type | Priori | Associated Diagnoses | Order Schedule | | | | ty | | | + +------+--------+ + + | Basic Metabolic | Lab | Routin | Prostate cancer | Expected: | | Panel | | e | ([facility]) | 05/24/2017, Expires: | | | | | | 03/03/2018 | + +------+--------+ + + | PSA, Diagnostic | Lab | Routin | Prostate cancer | Expected: | | | | e | ([facility]) | 05/24/2017, Expires: | | | | [...] - 1.030 | | | | [place], | | | | | | UA, [...]
--- OUTSIDE RECORDS SUMMARY | ~2019-02-24 | XMS | Encounter Summary ---
Demographics + + + | Address | [address] | | | [place] [address] | + + + | Home Phone | | + + + | Preferred Language | Unknown | + + + | Marital Status | | + + + | Rastafarian Affiliation | PRE | + + + | Race | White | + + + | Ethnic Group | Not or | + + + Author + + + | Author | [facility] | + + + | Organization | [facility] | + + + | Address | Unknown | + + + | Phone | Unavailable | + + + Support + + +---------+ + | Name | Relationship | Address | Phone | + + +---------+ + | Andrez Lucas | ECON | Unknown | Unavailable | + + +---------+ + Care Team Providers + +------+ + | Care Cumulative Effects Analyst Name | Role | Phone | [...] | Emergency | [facility] | [place], | | | 2012 - | | Department [address] | MD Michael | | | | | [address] | Trenton Jain | | | 06/07/ | | [facility] | [facility] | | | 2012 | | [place], [place] | [place] [place] | | | | | [address] | EMERGENCY | | | | | [phone] | [place] [address] | | | | | | [phone] | | | | | | | | | | | | Jean-Pierre Bruno MD | | | | | | [address] | | | | | | [place], | | | | | | [place] [address] | | | | | | [phone] | | | | | | | [...] still bleeding, return to the ED. 3) [place]'s spray Twice a day to both nostrils [...] "Nosebleeds: After Your Visit", log into your App[employer] account at [email or web address]. You can enter S156 in the SchoolChapters" search box. Not on App[employer]? Review the Four Interactivehart section of your After Visit Summary for directions on whitney w to sign up. [phone] Get[employer]. Care instructions adapted under license by [facility] [employer] [place]. This care instruction is for use with your licensed healthTelegent Systems e professional. If you have questions about a medical condition or this instruction, always ask your healthcare professional. [employer] disclaims any warranty or liabili ty for your use of this information. Content Version: 9.6.383026; Last Revised: August 19, 2011 documented in [...] [facility] | [address] | [place] [address] | | | SERVICES, CORE | PARK [...] | | | % nasal spray 2 [place] 2 spray, | | 13 8:12 | [...] | | | % nasal spray 2 [place] 2 spray, | | 13 11:27 | [...] | | 0.65 % nasal spray 2 [place] 2 | | 13 7:50 | | | | | spray, both nostrils, ONCE, 1 | | PM PDT | | | | | dose, 06/06/12 at 2030 | | | | | | + +-------+ + +---+---+ +---+---+ | | | +---+---+ documented in this encounter
--- OUTSIDE RECORDS SUMMARY | ~2019-02-24 | XMS | Encounter Summary ---
Demographics + + + | Address | [address] | | | [place] [address] | + + + | Home Phone [...] Organization | [facility] | | | and [place] [...] Team Providers + +------+ + | Care Management Retail Intern Name | Role | Phone | [...] | SR | | | | | [phone] | | | +--------+ + + + [...] | | | | | [place] [address] | | | | | | [phone] | | | | | | | | +--------+---------+ + + + documented as of this encounter Visit Diagnoses Not on filedocumented in this encounter
--- OUTSIDE RECORDS SUMMARY | ~2019-02-24 | XMS | Encounter Summary ---
Demographics + + + | Address | [address] | | | [place] [address] | + + + | Home Phone [...] Organization | [facility], [...] Providers + +------+ + | Care Field Artillery Operations Man Name | Role | Phone | [...] + + | 12/27/ | Refill | [facility] | Jorje Rutledge | Medication Refill | | 2017 | | [address] | MD [address] | | | | | [place], [place] | [address] [facility] | | | | | [address] | [place] [address] | | | | | [phone] | [phone] | | | | | | | [...] | | | | | [place] [address] | | | | | | [phone] | | | | | | | | +--------+---------+ + + + documented as of this encounter Visit Diagnoses Not on filedocumented in this encounter"
--- OUTSIDE RECORDS SUMMARY | ~2019-02-24 | XMS | Encounter Summary ---
Demographics + + + | Address | [address] | | | [place] [address] | + + + | Home Phone [...] [facility] | | [...] Team Providers + +------+ + | Care Regrind Mill Operator Name | Role | Phone | [...] | | Abnormal | Offenstein, | [address] | | | | | chest CT | Becca B, | [place], | | | | | Procedures | MD [address] | [place] [address] | | | | | CT Chest wo | [address] | Phone: | | | | | Contrast | [place], | [phone] | | | | | | [place] [address] | Fax: | | | | | | | [phone] | +--------+--------+ + + + + Reason for Visit +--------+ + | Reason | Comments | +--------+ + | Other | abnormal chest CT | +--------+ + Encounter Details +--------+---------+ + + + | Date | Type | Department | Care Team | Description | +--------+---------+ + + + | 10/27/ | Office | [facility] | Offenstein, | Abnormal chest CT | | 2012 | Visit | PULMONARY [address] | Becca Segura MD | (Primary Dx); COPD | | | | [place], | | (chronic obstructive | | | | [place] [address] | | pulmonary disease) | | | | [phone] | | ([facility]); Nocturnal | | | | | | [...] MD [place] Noyola Pulmonary and Critical Care [facility] [address] [place], [address] [facility] Diego Lucas is a 76 [...] Pulmonary nodules Cataracts, bilateral Pneumonia 05/2012 hospitalized [facility] Shoulder fracture 02/2012 Foot fracture 02/2012 [...] home. No other animal exposures.Grew up in [place]. Then lived in [place]. Then move d to [place]. In the service lived in [place] and [place]. No recent travel. Allergies: Allergies Allergen Reactions [...] get prior records from [facility] in [place], but they have sent us little information [...] made to ensure accuracy; however, inadvertent computerized landing man errors may be pre sent. documented in [...] | | | | | [place] [address] | | | | | | [phone] | | | | | | | [...] 10/28/2013 | | | | | ([facility]) Nocturnal | | | | | | hypoxemia | | + + +--------+ + + documented as of this encounter Results CT Chest wo Contrast (01/26/2013 3:44 PM PST) + + | Specimen | + + | | + + + + + | Narrative | Performed At | + + + | [facility] | [place] | | [address] | [place] | | [ rep ct street1+2] [ rep ct [facility] | | st zip] Signed | - IMAGING | | | | | Patient Name: DIEGO LUCAS Physician: | | | E. : 1935 Age: 77 Sex: M Unit #: [id number] | | | Exam Date: 01/26/13 Location: [facility] | | | Report #: [id number] Page: | | | %(RAD)RES..mtdd.print.filter("pg") of %(RAD) | | | RES..mtdd.print.filter("tpg") | | | | | | Accession Number: [id number] | | | CT CHEST WITHOUT CONTRAST [...] Transcribed Date/Time: | | | 01/26/2013 15:57 Egg Smeller: AndrewALTON | | | <<Signature on File>> | | | Froylan | | | Olivia Rodriguez MD01/26/131 <Electronically signed by Froylan [place] | | | Michael DONG> Froylan Rodriguez MD 01/26/13 1544 | | | Egg Smeller: [employer] Wovxetbruooin96/05/13 1557 | | | Becca Castro MD | | + + + + + + + + | Performing | Address | City/State/Zipcode | Phone Number | | Organization | | | | + + + + + | [facility] | [address] | [place] | [phone] | | [facility] | | [address] | | | - IMAGING | | [...]
--- OUTSIDE RECORDS SUMMARY | ~2019-02-24 | XMS | Encounter Summary ---
Demographics + + + | Address | [address] | | | [place] [address] | + + + | Home Phone [...] | Organization | [facility] [...] Team Providers + +------+ + | Care Settlement Clerk Name | Role | Phone | [...] | | Abnormal | Offenstein, | [address] | | | | | chest CT | Becca Segura, | [place], | | | | | Procedures | [address] | [place] [address] | | | | | CT Chest wo | [address] | Phone: | | | | | Contrast | [place], | [phone] | | | | | | [place] [address] | Fax: | | | | | | | [phone] | +--------+--------+ + + + + Encounter Details +--------+ + + + + | Date | Type | Department | Care Team | Description | +--------+ + + + + | 10/27/ | Hospital | [facility] | Offenstein, | Abnormal chest CT | | 2012 | Encounter | MED CTR XRAY [address] | Becca Segura MD | | | | | [place] | | | | | | [place] [address] | | | | | | [phone] | | | +--------+ + + + [...] | | | | | [place] [address] | | | | | | [phone] | | | | | | | [...] | [facility] | [place] | | Department [address] [place] [address] | [facility] | | [ rep ct street1+2] [ rep ct [facility] | | st zip] Signed | - IMAGING | | | | | Patient Name: DIEGO LUCAS Physician: | | | MAGDA. : 1935 Age: 76 Sex: M Unit #: [id number] | | | Exam Date: 10/27/12 Location: [facility] | | | Report #: [id number] Page: | | | %(RAD)RES..mtdd.print.filter("pg") of %(RAD) | | | RES..mtdd.print.filter("tpg") | | | | | | Accession Number: [id number] | | | [id number] CHEST CT CLINICAL HISTORY: FOLLOWUP | | [...] | | | Transcribed Date/Time: 10/27/2012 16:01 Yoga Coordinator: | | | AndrewSSP <<Signature on File>> | | | Yosef | | | MD Jimmie10/27/122003 <Electronically signed by Yosef Samuel MD> | | | Yosef Samuel MD 10/27/12 1521 Yoga Coordinator: MusicNowkatrin | | | Lvvstpvglbbra49/05/13 1601 Becca Castro MD | | | | | + + + + + + + + | Performing | Address | City/State/Zipcode | Phone Number | | Organization | | | | + + + + + | [facility] | [address] | [place] | [phone] | | [facility] | | [address] | | | - IMAGING | | | | + + + + + documented in this encounter Visit Diagnoses + + | Diagnosis | + + | Abnormal chest CT Nonspecific (abnormal) findings on radiological and other | | examination of other intrathoracic organs | + + documented in this encounter
--- OUTSIDE RECORDS SUMMARY | ~2019-02-24 | XMS | Encounter Summary ---
Demographics + + + | Address | [address] | | | [place] [address] | + + + | Home Phone [...] Organization | [facility] | [...] Team Providers + +------+ + | Care Math Interventionist Name | Role | Phone | + [...] [address] | | | | | [place], [place] | [address] [facility] | | | | | [address] | [place] [address] | | | | | [phone] | [phone] | | | | | | | [...] | | | | | [place] [address] | | | | | | [phone] | | | | | | | | +--------+---------+ + + + documented as of this encounter Visit Diagnoses Not on filedocumented in this encounter"
--- OUTSIDE RECORDS SUMMARY | ~2019-02-24 | XMS | Encounter Summary ---
Demographics + + + | Address | [address] | | | [place] [address] | + + + | Home Phone [...] | Organization | [facility] | | | and [place] | [...] Providers + +------+ + | Care Police Chief Name | Role | Phone | + [...] RN | obstructive | | | | [place], | | pulmonary disease) | | | | [place] [address] | | ([facility]); Nocturnal | | | | [phone] | | hypoxemia | +--------+ + + [...] | | | | | | [place] [address] | | | | | | [phone] | | | | | | | | +--------+---------+ + + + documented as of this encounter Visit Diagnoses + + | Diagnosis | + + | COPD (chronic obstructive pulmonary disease) (HCC) Chronic airway obstruction, not | | elsewhere classified | + + | Nocturnal hypoxemia Hypoxemia | + + documented in this encounter"
--- OUTSIDE RECORDS SUMMARY | ~2019-02-24 | XMS | Encounter Summary ---
Demographics + + + | Address | [address] | | | [place] [address] | + + + | Home Phone [...] Organization | [facility] [...] Team Providers + +------+ + | Care Wooden Box Maker Name | Role | Phone | [...] | | | | | | [place] [address] | | | | | | [phone] | | | +--------+--------+ + + + [...] | | | | | [place] [address] | | | | | | [phone] | | | | | | | | +--------+---------+ + + + documented as of this encounter Visit Diagnoses Not on filedocumented in this encounter"
--- OUTSIDE RECORDS SUMMARY | ~2019-02-24 | XMS | Encounter Summary ---
[...] + | Organization | [facility] [...] Team Providers + +------+ + | Care Steelscope Operator Name | Role | Phone | [...] MD | obstructive | | | | [place], | | pulmonary disease) | | | | [place] [address] | | (Primary Dx); | | | | [phone] | | Nocturnal hypoxemia | | | [...] PSTDo an overnight oxy gen test through [facility]. Call the [facility] before you pick it up to make sure th ey have a box available. You will filler picker a box at the [employer]. Do the test on 2 L. Wear [...] been doing okay. He did have a monitoring analyst that showed he was having episod es [...] 1 1/2 months. [facility]. Currently he is able to [...] He is currently on 2 LPM at [facility]. He reports good compliance. He [...] Pulmonary nodules Cataracts, bilateral Pneumonia 05/2012 hospitalized [facility] Shoulder fracture 02/2012 Foot fracture [...] home. No other animal exposures.Grew up in [place]. Then lived in [place]. Then move d to [place]. In the service lived in [facility] and [place]. No recent travel. Allergies: Allergies Allergen Reactions [...] Respiratory Therapy Supplies [facility] Please provide an O2 concentrator [...] made to ensure accuracy; however, inadvertent computerized case loader operator errors may be pre sent. documented [...] | | | | | [place] [address] | | | | | | [phone] | | | | | | | [...] | | | | | ([facility]) | | + + +--------+ + [...]
--- OUTSIDE RECORDS SUMMARY | ~2019-02-24 | XMS | Encounter Summary ---
Demographics + + + | Address | [address] | | | [place] [address] | + + + | Home Phone [...] Organization | [facility] | | | and [place] [...] Team Providers + +------+ + | Care Filler Sifter Machine Name | Role | Phone | + +------+ + PCP | Unavailable | + +------+ + Encounter Details +--------+ + + + + | Date | Type | Department | Care Team | Description | +--------+ + + + + | 12/01/ | Abstract | [place] [facility] | Bar [place], | | | 2011 | | Conversion Location | [place] [address] | | | | | [phone] | [place] | | | | | | [phone] | | | | | | | [...] | | | | | [place] [address] | | | | | | [phone] | | | | | | | | +--------+---------+ + + + documented as of this encounter Visit Diagnoses Not on filedocumented in this encounter"
--- OUTSIDE RECORDS SUMMARY | ~2019-02-24 | XMS | Encounter Summary ---
Demographics + + + | Address | [address] | | | [place] [address] | + + + | Home Phone [...] | Organization | [facility] [...] Team Providers + +------+ + | Care Adjunct Professor Of U.[place]. History Name | Role | Phone | + +------+ + PCP | Unavailable | + +------+ + Encounter Details +--------+ + + + + | Date | Type | Department | Care Team | Description | +--------+ + + + + | 11/02/ | Hospital | [facility] | | | | 2007 - | Encounter | MED CTR CANCER | | | | | | CENTER [address] | | | | 11/21/ | | [place] | | | | 2007 | | [address] | | | | | | [phone] | | | +--------+ + + + [...] | | | | | [place] [address] | | | | | | [phone] | | | | | | | | +--------+---------+ + + + documented as of this encounter Visit Diagnoses Not on filedocumented in this encounter"
--- OUTSIDE RECORDS SUMMARY | ~2019-02-24 | XMS | Encounter Summary ---
Demographics + + + | Address | [address] | | | [place] [address] | + + + | Home Phone [...] + | Organization | [facility] [...] Team Providers + +------+ + | Care Ios Programmer Name | Role | Phone | + +------+ + | Parviz Brar DO | PCP | | + +------+ + Encounter Details +--------+ + + + + | Date | Type | Department | Care Team | Description | +--------+ + + + + | 07/01/ | Abstract | [facility] [place] | Jorej Rutledge | | | 2016 | | [address] | MD [address] | | | | | [place], [place] | [address] | | | | | [address] | [place] [address] | | | | | [phone] | [phone] | | | | | | | [...] | | | | | [place] [address] | | | | | | [phone] | | | | | | | [...] + | REFERENCE LAB | [address] | [place] [address] | [phone] | | [facility] | | | | + + + + + | REFERENCE LAB | [address] | [place] [address] | [phone] | | [facility] | | | | + + + + + documented in this encounter Visit Diagnoses Not on filedocumented in this encounter"
--- OUTSIDE RECORDS SUMMARY | ~2019-02-24 | XMS | Encounter Summary ---
Demographics + + + | Address | [address] | | | [place] [address] | + + + | Home Phone [...] | Author | [facility] | | | and [place] | + + + | Organization | [facility] | | | and [place] | [...] Team Providers + +------+ + | Care Journeyman Mechanic Name | Role | Phone | [...] + + | 10/13/ | Office | [facility] | Marc Odell | Gastrointestinal | | 2017 | Visit | GASTROENTEROLOGY | MD No[address] | hemorrhage, | | | | [address] [place] | [address] [place] | unspecified | | | | [address] [place], [place] | [place] [address] | gastrointestinal | | | | [address] | [phone] | hemorrhage type | | | | [phone] | | (Primary Dx) | +--------+---------+ + [...] He wa s going to remain in [place] rather than going [place] forth [place] signed by Maribell Cleary RN at [...] | | | | | [place] [address] | | | | | | [phone] | | | | | | | [...]
--- OUTSIDE RECORDS SUMMARY | ~2019-02-24 | XMS | Encounter Summary ---
Demographics + + + | Address | [address] | | | [place] [address] | + + + | Home Phone [...] | [facility] [...] Team Providers + +------+ + | Care Forensic Dna Analyst Name | Role | Phone | [...] | | | [place], | [place] [address] | | | | | | [place] [address] | Phone: | | | | | | | [phone] | | | | | | | Fax: | | | | | | | [phone] | +--------+ + + + + + Encounter Details +--------+---------+ + + + | Date | Type | Department | Care Team | Description | +--------+---------+ + + + | 06/29/ | Office | [facility] | Jorje Rutledge | Prostate cancer | | 2017 | Visit | [address] | MD [address] | ([facility]) (Primary Dx) | | | | [place], [place] | [address] [place] | | | | | [address] | [place] [address] | | | | | [phone] | [phone] | | | | | | | [...] (02/2012); Foot fracture (02/2012); SVT (supraventricular tachycardia) ([facility]) (01/2014); Depression; Prostate cancer ([facility]) (2007) ; COPD (chronic obstructive pulmonary disease) ([facility]); Pneumonia (05/2012); Heart murmur; Rima racts, [...] have not thoroughly proofread this note, and software support analyst erro rs may occur. documented in th [...] | | | | | [place] [address] | | | | | | [phone] | | | | | | | [...] 1.001 - 1.030 | | | | [place], | | | | | | [facility], [...]
--- OUTSIDE RECORDS SUMMARY | ~2019-02-24 | XMS | Encounter Summary ---
Demographics + + + | Address | [address] | | | [place] [address] | + + + | Home Phone | | + + + | Preferred Language | Unknown | + + + | Marital Status | | + + + | Spiritism Affiliation | PRE | + + + | Race | White | + + + | Ethnic Group | Not or | + + + Author + + + | Author | [facility] | + + + | Organization | [facility] | + + + | Address | Unknown | + + + | Phone | Unavailable | + + + Support + + +---------+ + | Name | Relationship | Address | Phone | + + +---------+ + | Andrez Lucas | ECON | Unknown | Unavailable | + + +---------+ + Care Team Providers + +------+ + | Care Medical Logistics Specialist Name | Role | Phone | [...] OMI | | 2004 | | E [facility] | [phone] | | | | Transcribed | [place] | | | | | | [address] | | | +--------+ + + + [...] | Other, Faculty - 06/09/2004 10:38 AM [facility] | | ELECTROCARDIOGRAPHIC [id number] [place] [id number]: | | Marc Stovall, TALIA AND TIME: [...] normal tracing in a | | thin-walledman.JOB #[id number]//18/05MWS | | Electronically Signed | | | | Rylee Tay, [facility],OLGA [id number] DATE: | | | |ATRIAL RATE: 67 | |VENTRICULAR RATE: 67 | | | |TX INTERVAL: 184 QRS: 88 QTC: 406 QRS [...] |man. | | | | | |JOB #[id number] | |06/08/04 | |06/09/04 | |MWCresencio Electronically [...] | | | | |[place] | |[id number] | |[id number] | |ADMIT DATE: | + + documented in this encounter Visit Diagnoses Not on filedocumented in this encounter"
--- OUTSIDE RECORDS SUMMARY | ~2019-02-24 | XMS | Encounter Summary ---
Demographics + + + | Address | [address] | | | [place] [address] | + + + | Home Phone | | + + + | Preferred Language | Unknown | + + + | Marital Status | | + + + | Jain Affiliation | [id number] | + + + | Race | Unknown | + + + | Ethnic Group | Unknown | + + + Author + + + | Author | [facility] | | | and [place] | + + + | Organization | [facility] | [...] Team Providers + +------+ + | Care Kiss Machine Operator Name | Role | Phone [...] + + | 01/26/ | Office | [facility] [place] | Off[place], | COPD (chronic | | 2012 | Visit | PULMONARY [address] | Becca Segura MD | obstructive | | | | [place], | | pulmonary disease) | | | | [place] [address] | | (HCC) (Primary Dx); | | | | [phone] | | Nocturnal hypoxemia; | | | [...] MD [place] Pulmonary and Critical Care [facility] [address] [place], [address] HPI Diego Lucas is a 77 y.o. male patient of Parviz Brar here today for follow up of COPD. At their last visit, we had treated him antibiotics, a course of levofloxacin. We tried to get sputum cultures from his prior admission in [place], but they had not done any. They [...] thinking about joining the gym down in [place]. He has not had hemoptysis. He has been evaluated for nocturnal oxygen and does use it. He is currently on 1.5 LPM at [facility]. He reports good compliance. He does not [...] home. No other animal exposures.Grew up in [place]. Then lived in [place]. Then move d to [place]. In the service lived in [facility] and [place]. No recent travel. Allergies: Allergies [...] made to ensure accuracy; however, inadvertent computerized cable armorer operator errors may be pre sent. documented [...] | | | | | [place] [address] | | | | | | [phone] | | | | | | | [...]
--- OUTSIDE RECORDS SUMMARY | ~2019-02-24 | XMS | Encounter Summary ---
Demographics + + + | Address | [address] | | | [place] [address] | + + + | Home Phone [...] Organization | [facility] | | | and [place] | [...] Providers + +------+ + | Care Director Enterprise Sales Name | Role | Phone | + +------+ + PCP | Unavailable | + +------+ + Encounter Details +--------+ + + + + | Date | Type | Department | Care Team | Description | +--------+ + + + + | 07/23/ | Hospital | [facility] | | | | 2007 - | Encounter | [facility] | | | | | | CENTER [address] | | | | 08/21/ | | [place] | | | | 2007 | | [address] | | | | | | [phone] | | | +--------+ + + + [...] | | | | | | [place] [address] | | | | | | [phone] | | | | | | | | +--------+---------+ + + + documented as of this encounter Visit Diagnoses Not on filedocumented in this encounter"
--- OUTSIDE RECORDS SUMMARY | ~2019-02-24 | XMS | Encounter Summary ---
Demographics + + + | Address | [address] | | | [place] [address] | + + + | Home Phone [...] Organization | [facility] | | | and [place] [...] Team Providers + +------+ + | Care Circulation Assistant Name | Role | Phone | [...] Segura MD | | | | | [place], | | | | | | [place] [address] | | | | | | [phone] | | | +--------+ + + + [...] | | | | | [place] [address] | | | | | | [phone] | | | | | | | | +--------+---------+ + + + documented as of this encounter Visit Diagnoses Not on filedocumented in this encounter"
--- OUTSIDE RECORDS SUMMARY | ~2019-02-24 | XMS | Encounter Summary ---
Demographics + + + | Address | [address] | | | [place] [address] | + + + | [...] | Organization | [facility] | [...] Team Providers + +------+ + | Care Air Transport Professionals Name | Role | Phone | + +------+ + PCP | Unavailable | + +------+ + Encounter Details +--------+ + + + + | Date | Type | Department | Care Team | Description | +--------+ + + + + | 01/10/ | Hospital | [facility] | | | | 2007 - | Encounter | MED CTR CANC[facility] | | | | | | CENTER [address] | | | | 01/21/ | | [place] | | | | 2007 | | [address] | | | | | | [phone] | | | +--------+ + + + [...] | | | | | [place] [address] | | | | | | [phone] | | | | | | | | +--------+---------+ + + + documented as of this encounter Visit Diagnoses Not on filedocumented in this encounter"
--- OUTSIDE RECORDS SUMMARY | ~2019-02-24 | XMS | Encounter Summary ---
Demographics + + + | Address | [address] | | | [place] [address] | + + + | Home Phone [...] + | Organization | [facility] | | | and [...] Team Providers + +------+ + | Care Cell Pourer Name | Role | Phone | + [...] | | | | | [place] | [address] | | | | | [address] | [place] [address] | | | | | [phone] | [phone] | | | | | | | [...] | | | | | [place] [address] | | | | | | [phone] | | | | | | | [...] Agency Comment | + + | [facility] | + + + +---------+ + + | Performing | Address | City/State/Zipcode | Phone Number | | Organization | | | | + +---------+ + + | EXTERNAL LAB | | | | + +---------+ + + documented in this encounter Visit Diagnoses Not on filedocumented in this encounter"
--- OUTSIDE RECORDS SUMMARY | ~2019-02-24 | XMS | Encounter Summary ---
Demographics + + + | Address | [address] | | | [place] [address] | + + + | Home Phone [...] + | Organization | [facility] | [...] Team Providers + +------+ + | Care Fish Filleter Name | Role | Phone | + [...] + + | 10/27/ | Office | [facility] | Jorje Rutledge | Prostate cancer | | 2017 | Visit | [address] | [address] | ([facility]) (Primary Dx) | | | | [place], [place] | [facility] | | | | | [address] | [place] [address] | | | | | [phone] | [phone] | | | | | | | [...] bilateral; COPD (chronic obstructive pu lmonary disease) ([facility]); Depression; Diverticulosis (01/2015); Foot fracture (02/2012); Gastri tis (01/2015); GI bleed (01/2015); Heart murmur; Heartburn; Hiatal hernia (01/2015); History of rectal bleeding; Hypertension; Insomnia; Kidney stone (2004); Lumbar disc herniation; Mi graines; Mood disorder ([facility]) of unknown (axis III) etiology; Nocturnal hypoxia; Osteoarthrit is; Peptic ulcer disease; Pneumonia (05/2012); Prostate cancer ([facility]) (2007); Pulmonary nodule s; Shoulder fracture (02/2012); Supplemental oxygen dependent; SVT (supraventricular tachycar anushka) ([facility]) (01/2014); and TIA (transient ischemic attack). [...] PO) Take by mouth. 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 documented in th [...] | | | | | [place] [address] | | | | | | [phone] | | | | | | | [...]
--- OUTSIDE RECORDS SUMMARY | ~2019-02-24 | XMS | Encounter Summary ---
Demographics + + + | Address | [address] | | | [place] [address] | + + + | Home Phone [...] Author | [facility] | + + + | Organization | [facility] | + + + | Address | Unknown | + + + | Phone | Unavailable | + + + Support + + +---------+ + | Name | Relationship | Address | Phone | + + +---------+ + | Andrez Lucas | ECON | Unknown | Unavailable | + + +---------+ + Care Team Providers + +------+ + | Care Torpedo Man Name | Role | Phone | [...] + + | 06/06/ | Emergency | [facility] Emergency | [place], | | | 2012 - | | Department [address] | MD Michael | | | | | [address] | [place] | | | 06/07/ | | [facility] | [facility] | | | 2012 | | [place], [place] | [address] | | | | | [id number] | EMERGENCY | | | | | [phone] | [place] [address] | | | | | | [phone] | | | | | | | | | | | | Jean-Pierre Bruno MD | | | | | | [address] | | | | | | [place], | | | | | | [place] [address] | | | | | | [phone] | | | | | | | [...] still bleeding, return to the ED. 3) [place]'s spray Twice a day to both nostrils [...] "Nosebleeds: After Your Visit", log into your Walkbase account at [email or web address]. You can enter [id number] in the Barspace" search box. Not on Walkbase? Review the Intelligent Portal Systemshart section of your After Visit Summary for directions on whitney w to sign up. [phone]. Care instructions adapted under license by [facility] [employer] [place]. This care instruction is for use with your licensed healthRadio Revolution Network, LLC e professional. If you have questions about a medical condition or this instruction, always ask your healthcare professional. [employer] disclaims any warranty or liabili ty for your use of this information. Content Version: 9.6.916489; Last Revised: August 19, 2011 documented in [...] [facility] | [address] | [place] [address] | | | SERVICES, CORE | PARK [...] | | | % nasal spray 2 Crawford 2 spray, | | 13 8:12 | [...] | | | % nasal spray 2 Crawford 2 spray, | | 13 11:27 | [...] | | 0.65 % nasal spray 2 Crawford 2 | | 13 7:50 | | | | | spray, both nostrils, ONCE, 1 | | PM PDT | | | | | dose, 06/06/12 at 2030 | | | | | | + +-------+ + +---+---+ +---+---+ | | | +---+---+ documented in this encounter
--- OUTSIDE RECORDS SUMMARY | ~2019-02-24 | XMS | Encounter Summary ---
Demographics + + + | Address | [address] | | | [place] [address] | + + + | Home Phone [...] + | Organization | [facility] | | [...] Team Providers + +------+ + | Care Dirt Contractor Name | Role | Phone | [...] + + | 04/27/ | Telephone | [facility] | Marc Odell | Lab Order | | 2018 | | GASTROENTEROLOGY | MD No[address] | | | | | [address] [place] | [address] [facility] | | | | | [address] [place], [place] | [place] [address] | | | | | [address] | [phone] | | | | | [phone] | | | +--------+ + + + [...] | | | | | [place] [address] | | | | | | [phone] | | | | | | | [...]
--- OUTSIDE RECORDS SUMMARY | ~2019-02-24 | XMS | Encounter Summary ---
Demographics + + + | Address | [address] | | | [place] [address] | + + + | Home Phone [...] Organization | [facility] | | [...] Team Providers + +------+ + | Care Pipeline Superintendent Division Name | Role | Phone | + [...] + + | 05/30/ | Office | [facility] | Jorje Rutledge | Prostate cancer | | 2019 | Visit | [address] | [address] | (HCC) (Primary Dx) | | | | [place] | [address] [facility] | | | | | [address] | [place] [address] | | | | | [phone] | [phone] | | | | | | | [...] fracture, COPD (chronic obstructive pulmonary dis ease) ([facility]), Depression, Dermatophytosis tinea capitis, Diverticulosis (01/2015), Essential hypertension, Foot fracture (02/2012), Gastritis (01/2015), GI bleed (01/2015), Heart murmur, Heartburn, Hiatal hernia (01/2015), History of rectal bleeding, Hypoxia, Insomnia, Internal bleeding (2017), Iron deficiency anemia, Kidney stone (2004), Lumbar disc herniation, Migra marcelino, Mood disorder ([facility]) of unknown (axis III) etiology, Nocturnal hypoxia, Osteoarthritis, Peptic ulcer disease, Pneumonia (05/2012), Prostate cancer ([facility]) (2007), Pulmonary nodules, Seborrheic dermatitis of scalp, Shoulder fracture (02/2012), Supplemental oxygen dependent, S VT (supraventricular tachycardia) ([facility]) (01/2014), TIA (transient ischemic attack), and Vaso [...] powder Take by mouth. 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 Although ever y effort is made to edit the content, heel trimmer errors may occur. Occasional wrong word or [...] | | | | | [place] [address] | | | | | | [phone] | | | | | | | [...] CONF | e | 9:34 AM | ([facility]) | procedure are in the | [...] 1.001 - 1.030 | | | | [place], | | | | | | UA, [...]
--- OUTSIDE RECORDS SUMMARY | ~2019-02-24 | XMS | Encounter Summary ---
Demographics + + + | Address | [address] | | | [place] [address] | + + + | Home Phone [...] Organization | [facility] | | | and [...] Team Providers + +------+ + | Care Extruding Press Operator Name | Role | Phone [...] | | ELECTROPHYSIOLOGY | [address] [place] | | | | | [address] | [address] | | | | | [place] | [phone] | | | | | [address] | | | | | | [phone] | | | +--------+---------+ + + + [...] different fro m the original. DISCHARGE SUMMARY [facility] PATIENT NAME/: Diego Lucas, (1935) DATE OF ADMISSION: 03/19/2014 DATE OF DISCHARGE: 03/19/2014 DISCHARGING MID-LEVEL: EKATERNIA Alonso DISCHARGING PHYSICIAN: Jennifer Wilder MD DISPOSITION: [...] below. EKG shows sinus rhythm with normal VT interval and no preexcitation. MASTER PROBLEM LIST: [...] EKG: KG shows sinus rhythm with normal VT interval and no preexcitation. Selected Labs: Lab [...] mg by mouth Daily. Respiratory Therapy Supplies [facility] Please provide an O2 concentrator while Diego [...] 30 minutes Thank you for allowing [facility] to be involved in the care of this patient. Please call with any questions . Patient Care Team: Parviz Brar as PCP - General (Family Medicine) Becca Castro MD as Physician (Pulmonary Disease) Noe Worley MD (Cardiology) Note reviewed, agree with above Jennifer Wilder MD [facility] documented in this e ncounter Discharge Instructions [...] dizziness Repeated vomiting You cannot be awakened 0516-8347 [employer]. [address] [place] [address], [place] [address]. All righ ts reserved. This information is [...] | | | | | | [place] [address] | | | | | | [phone] | | | | | | | [...] | ALFREDIT[facility] | | | | [place] | | SACRED | | | | [facility], [address] | | HEART | | | | [place] [address] | | MEDICAL | | | | [...] SACRED | [address] | [place] [address] | | | [facility] | | | | [...] | [facility] | | | Count | [place]t [place] | | SACRED | | | | [facility], [address] | | HEART | | | | [address] [place] [address] | | MEDICAL | | | | [...] + + | MELISSAKANCHAN [facility]ANGEL[facility] | [address] | [place] [address] | | | [facility] | | | | | LABORATORY [...] + + + | Glucose | 97Comment: Jamaican | 65 - 99 mg/dL | [facility] | | | | Diabetes [...] at | | | | | | [facility] | | | | | | [facility], [address] | | | | | | [address] [place] [address] | | | | + + + + + + + + | Specimen | + + | Blood specimen | | (specimen) | + + + + + + + | Performing | Address | City/State/Zipcode | Phone Number | | Organization | | | | + + + + + | [place] | [address] | [place] [address] | | | [facility] | | | | | [...]
--- OUTSIDE RECORDS SUMMARY | ~2019-02-24 | XMS | Encounter Summary ---
Demographics + + + | Address | [address] | | | [place] [address] | + + + | Home Phone [...] | Organization | [facility] | | [...] Team Providers + +------+ + | Care Appraiser Personal Property Name | Role | Phone | + [...] + | 04/14/ | Office | [facility] | [place], | COPD (chronic | | 2013 | Visit | PULMONARY [address] | Becca Segura MD | obstructive | | | | [place], | | pulmonary disease) | | | | [place] [address] | | (HCC) (Primary Dx); | | | | [phone] | | Nocturnal hypoxemia; | | | [...] MD Caterina Noyola [facility] [address] [place], [address] HPI Diego Lucas is a 77 y.o. [...] on level ground. He is exercising re [employer]. {He was not walking for a while due to snow, but is walking again now that the weat her is better. He does cough chronically, and does produce mucous, though this has decreased alot. He has not had hemoptysis. He has been evaluated for nocturnal oxygen and does use it. He is currently on 1.5 LPM at [facility]. He was lasted tested on 2L in [...] Pulmonary nodules Cataracts, bilateral Pneumonia 05/2012 hospitalized [facility] Shoulder fracture 02/2012 Foot fracture 02/2012 [...] home. No other animal exposures.Grew up in [place]. Then lived in [place]. Then move d to [place]. In the service lived in [facility] [place] and [place]. No recent travel. Allergies: Allergies Allergen Reactions [...] and is going back to see the thread twister. GI: Denies heartburn, nausea, vomiting, and abdominal [...] breath sounds are diminished bilaterally, no wheezes, fine craft artist ckles or rhonchi Chest Wall: No deformity [...] again and going to visit family in [place] for about a month. I encouraged him to do so, as he has had a rough year. 2. 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 Based on last overnight oximetry, we will increase to 2 L. I advised he should contact [facility] about having oxygen arranged at his destination for [employer] trip. 3. Abnormal CT scan - Last [...] 4. Arrange for oxygen at destination for [employer] trip. He was advised to call if new pulmonary symptoms were to develop. Return to clinic in 3 months, or sooner with concerns. CC: Parviz Brar Portions of this report were transcribed using voice recognition software. Every effort wa s made to ensure accuracy; however, inadvertent computerized career services assistant errors may be pre sent. documented [...] [place] | | | | | | [place] [address] | | | | | | [phone] | | | | | | | [...] | 04/14/2014 | | | | | ([facility]) | | + + +--------+ + + [...]
--- OUTSIDE RECORDS SUMMARY | ~2019-02-24 | XMS | Encounter Summary ---
Demographics + + + | Address | [address] | | | [place] [address] | + + + | Home Phone [...] | [facility] [...] Team Providers + +------+ + | Care Transition Specialist Name | Role | Phone | + +------+ + PCP | Unavailable | + +------+ + Encounter Details +--------+ + + + + | Date | Type | Department | Care Team | Description | +--------+ + + + + | 11/02/ | Hospital | [facility] | | | | 2007 - | Encounter | MED CTR CANCER | | | | | | CENTER [address] | | | | 11/21/ | | [place] | | | | 2007 | | [address] | | | | | | [phone] | | | +--------+ + + + [...] | | | | | [place] [address] | | | | | | [phone] | | | | | | | | +--------+---------+ + + + documented as of this encounter Visit Diagnoses Not on filedocumented in this encounter"
--- OUTSIDE RECORDS SUMMARY | ~2019-02-24 | XMS | Encounter Summary ---
Demographics + + + | Address | [address] | | | [place] [address] | + + + | Home Phone [...] Organization | [facility] [...] Providers + +------+ + | Care Hand Tool Filer Name | Role | Phone | + +------+ + PCP | Unavailable | + +------+ + Encounter Details +--------+ + + + + | Date | Type | Department | Care Team | Description | +--------+ + + + + | 07/20/ | Hospital | [facility] | | | | 2007 - | Encounter | MED CTR CANCER | | | | | | CENTER [address] | | | | 07/22/ | | [place] | | | | 2007 | | [address] | | | | | | [phone] | | | +--------+ + + + [...] | | | | | [place] [address] | | | | | | [phone] | | | | | | | | +--------+---------+ + + + documented as of this encounter Visit Diagnoses Not on filedocumented in this encounter"
--- OUTSIDE RECORDS SUMMARY | ~2019-02-24 | XMS | Encounter Summary ---
Demographics + + + | Address | [address] | | | [place] [address] | + + + | Home Phone [...] | [facility] [...] Providers + +------+ + | Care Web Design Specialist Name | Role | Phone | + +------+ + PCP | Unavailable | + +------+ + Encounter Details +--------+ + + + + | Date | Type | Department | Care Team | Description | +--------+ + + + + | 01/10/ | Hospital | [facility] | | | | 2007 - | Encounter | MED CTR CANCER | | | | | | CENTER [address] | | | | 01/21/ | | [place] | | | | 2007 | | [address] | | | | | | [phone] | | | +--------+ + + + [...] | | | | | [place] [address] | | | | | | [phone] | | | | | | | | +--------+---------+ + + + documented as of this encounter Visit Diagnoses Not on filedocumented in this encounter"
--- OUTSIDE RECORDS SUMMARY | ~2019-02-24 | XMS | Encounter Summary ---
Demographics + + + | Address | [address] | | | [place] [address] | + + + | Home Phone | | + + + | Preferred Language | Unknown | + + + | Marital Status | | + + + | Orthodox Affiliation | PRE | + + + [...] Team Providers + +------+ + | Care Electronic Publishing Specialist Name | Role | Phone | [...] [address] | | | | | [place] [address] | [address] | | | | | [address] | [place], [place] | | | | | Mailcode: L605 | [address] | | | | | [facility] | [phone] | | | | | [place], [place] | | | | | | [address] | | | | | | [phone] | | | +--------+ + + + [...]
--- OUTSIDE RECORDS SUMMARY | ~2019-02-24 | XMS | Encounter Summary ---
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
--- OUTSIDE RECORDS SUMMARY | ~2019-02-24 | XMS | Encounter Summary ---
Demographics + + + | Address | [address] | | | [place] [address] | + + + | Home Phone | | + + + | Preferred Language | Unknown | + + + | Marital Status | | + + + | Voodoo Affiliation | 1076 | + + + | Race | Unknown | + + + | Ethnic Group | Unknown | + + + Author + + + | Author | [facility] | | | and [place] | + + + | Organization | [facility] | | [...] Providers + +------+ + | Care Peoplesoft Developer Name | Role | Phone | [...] + + | 05/30/ | Office | [facility] | Jorje Rutledge | Prostate cancer | | 2019 | Visit | [address] | [address] | (HCC) (Primary Dx) | | | | [place] | [address] [facility] | | | | | [address] | [place] [address] | | | | | [phone] | [phone] | | | | | | | [...] (chronic obstructive pulmonary dis ease) ([facility]), Depression, Dermatophytosis tinea capitis, Diverticulosis (01/2015), Essential hypertension, Foot fracture (02/2012), Gastritis (01/2015), GI bleed (01/2015), Heart murmur, Heartburn, Hiatal hernia (01/2015), History of rectal bleeding, Hypoxia, Insomnia, Internal bleeding (2017), Iron deficiency anemia, Kidney stone (2004), Lumbar disc herniation, Migra marcelino, Mood disorder ([facility]) of unknown (axis III) etiology, Nocturnal hypoxia, Osteoarthritis, Peptic ulcer disease, Pneumonia (05/2012), Prostate cancer ([facility]) (2007), Pulmonary nodules, Seborrheic dermatitis of scalp, Shoulder fracture (02/2012), Supplemental oxygen dependent, S VT (supraventricular tachycardia) ([facility]) (01/2014), TIA (transient ischemic attack), and Vaso [...] powder Take by mouth. 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 Although ever y effort is made to edit the content, beer still runner compounder errors may occur. Occasional wrong word or [...] | | | | | [place] [address] | | | | | | [phone] | | | | | | | [...] e | 9:34 AM | ([facility]) | procedure are in the | | [...] 1.001 - 1.030 | | | | [place], | | | | | | UA, [...]
--- OUTSIDE RECORDS SUMMARY | ~2019-02-24 | XMS | Encounter Summary ---
Demographics + + + | Address | [address] | | | [place] [address] | + + + | Home Phone [...] Organization | [facility] [...] Team Providers + +------+ + | Care Signals Intelligence Superintendent Name | Role | Phone | + +------+ + | Parviz Brar DO | PCP | | + +------+ + Encounter Details +--------+ + + + + | Date | Type | Department | Care Team | Description | +--------+ + + + + | 06/16/ | Hospital | [facility] | Conversion | Pain | | 2017 | Encounter | CONVERSION [address] | Transaction, | | | | | [address] | Provider Unknown | | | | | [place], [place] | [phone] | | | | | [address] | | | | | | [phone] | | | +--------+ + + + [...] | | | | | [place] [address] | | | | | | [phone] | | | | | | | [...]
--- OUTSIDE RECORDS SUMMARY | ~2019-02-24 | XMS | Encounter Summary ---
Demographics + + + | Address | [address] | | | [place] [address] | + + + | Home Phone [...] | Organization | [facility] | | | and [place] [...] Team Providers + +------+ + | Care Subsea Engineer Name | Role | Phone | + +------+ + | Parviz Brar DO | PCP | | + +------+ + Encounter Details +--------+ + + + + | Date | Type | Department | Care Team | Description | +--------+ + + + + | 06/16/ | Hospital | [facility] | Conversion | Pain | | 2017 | Encounter | CONVERSION [address] | Transaction, | | | | | [address] | Provider Unknown | | | | | [place], [place] | [phone] | | | | | [address] | | | | | | [phone] | | | +--------+ + + + [...] | | | | | [place] [address] | | | | | | [phone] | | | | | | | [...]
--- OUTSIDE RECORDS SUMMARY | ~2019-02-24 | XMS | Encounter Summary ---
Demographics + + + | Address | [address] | | | [place] [address] | + + + | Home Phone | | + + + | Preferred Language | Unknown | + + + | Marital Status | | + + + | Restorationist Affiliation | PRE | + + + | Race | White | + + + | Ethnic Group | Not or | + + + Author + + + | Author | [facility] | + + + | Organization | [facility] | + + + | Address | Unknown | + + + | Phone | Unavailable | + + + Support + + +---------+ + | Name | Relationship | Address | Phone | + + +---------+ + | Andrez Lucas | ECON | Unknown | Unavailable | + + +---------+ + Care Team Providers + +------+ + | Care Ladies' Locker Room Attendant Name | Role | Phone | [...] + | 06/06/ | Emergency | [facility] | Macy Evans, | | | 2012 | | Department [address] | [address] | | | | | [facility] | [place], [place] | | | | | [facility] | [address] | | | | | [place], [place] | | | | | | [address] | | | | | | [phone] | | | +--------+ + + + [...] Horn - 06/06/2012Thank you for visiting the [facility] and for your patience. I am glad we could get the bleeding to stop. In the morning call your primary care doctor to ask about the humidified oxygen. Use [place] twice a day in both nostrils to keep the lining moist. Check in with your PCP in about 1 week to make sure you are doing well. If you have any problems you can call the Ear Nose and Throat doctors/Otolaryngology (Head & Neck Surgery): [phone]. Afrin as needed: if a new episode [...] [facility] | [address] | [place] [address] | | | NAYELI, | ELIECER SALGUERO [...] | + + + + + | [facility] | [address] | [place] [address] | | | RAFAEL TYLER | ELIECER [...] [facility] | [address] | [place] [address] | | | RAFAEL TYLER | ELIECER [...] + + + | [facility] | [address] | [place] [address] | | | SERVICES, RAFAEL | ELIECER [...] [facility] | [address] | [place] [address] | | | SERVICES, | [address] [...] | + + + + + | [facility] | [address] | [place] [address] | | | SERVICES, | [address] [...] + + + | [facility] | [address] | [place] [address] | | | SERVICES, CORE | [address] | | | + + + + + documented in this encounter Visit Diagnoses + + | Diagnosis | + + | Epistaxis - Primary | + + documented in this encounter"
--- OUTSIDE RECORDS SUMMARY | ~2019-02-24 | XMS | Encounter Summary ---
Demographics + + + | Address | [address] | | | [place] [address] | + + + | Home Phone [...] Organization | [facility], [...] Team Providers + +------+ + | Care Photoresist Contact Printer Name | Role | Phone | + [...] History of prostate | | | | [address] | [place] [address] | cancer | | | | [phone] | [phone] | | | | | | | [...] | | | | | | [place] [address] | | | | | | [phone] | | | | | | | [...]
--- OUTSIDE RECORDS SUMMARY | ~2019-02-24 | XMS | Encounter Summary ---
Demographics + + + | Address | [address] | | | [place] [address] | + + + | Home Phone [...] + | Organization | [facility] | | | and [...] Team Providers + +------+ + | Care Crystal Slicer Name | Role | Phone | + [...] 2018 | | GASTROENTEROLOGY | [address], [place] | | | | | [address] [place] | [address] [place], [place] | | | | | [address] [place], [place] | [address] | | | | | [address] | | | | | | [phone] | | | +--------+ + + + [...] | | | | | [place] [address] | | | | | | [phone] | | | | | | | [...]
--- OUTSIDE RECORDS SUMMARY | ~2019-02-24 | XMS | Encounter Summary ---
Demographics + + + | Address | [address] | | | [place] [address] | + + + | Home Phone [...] | Organization | [facility] | | [...] Team Providers + +------+ + | Care Painter Spring Name | Role | Phone | + [...] Segura MD | | | | | [place], | | | | | | [place] [address] | | | | | | [phone] | | | +--------+ + + + [...] | | | | | [place] [address] | | | | | | [phone] | | | | | | | | +--------+---------+ + + + documented as of this encounter Visit Diagnoses Not on filedocumented in this encounter"
--- OUTSIDE RECORDS SUMMARY | ~2019-02-24 | XMS | Encounter Summary ---
Demographics + + + | Address | [address] | | | [place] [address] | + + + | Home Phone [...] | Organization | [facility] [...] Providers + +------+ + | Care Senior Marketing Specialist Name | Role | Phone | + +------+ + PCP | Unavailable | + +------+ + Encounter Details +--------+ + + + + | Date | Type | Department | Care Team | Description | +--------+ + + + + | 01/05/ | Hospital | [facility] | | | | 1999 | Encounter | MED CTR XRAY [address] | | | | | | [address] | | | | | | [place] [address] | | | | | | [phone] | | | +--------+ + + + [...] | | | | | [place] [address] | | | | | | [phone] | | | | | | | | +--------+---------+ + + + documented as of this encounter Visit Diagnoses Not on filedocumented in this encounter"
--- OUTSIDE RECORDS SUMMARY | ~2019-02-24 | XMS | Encounter Summary ---
Demographics + + + | Address | [address] | | | [place] [address] | + + + | Home Phone [...] + + | Organization | [facility] | | | [...] Team Providers + +------+ + | Care Technical Services Representative Name | Role | Phone | [...] Segura MD | | | | | [place], | | | | | | [place] [address] | | | | | | [phone] | | | +--------+ + + + [...] | | | | | [place] [address] | | | | | | [phone] | | | | | | | | +--------+---------+ + + + documented as of this encounter Visit Diagnoses Not on filedocumented in this encounter"
--- OUTSIDE RECORDS SUMMARY | ~2019-02-24 | XMS | Encounter Summary ---
Demographics + + + | Address | [address] | | | [place] [address] | + + + | Home Phone [...] Organization | [facility] [...] Team Providers + +------+ + | Care Grades 1 Through 6 Teacher Name | Role | Phone | [...] | | Abnormal | [place], | [address] | | | | | chest CT | Becca Segura, | [place], | | | | | Procedures | [address] | [place] [address] | | | | | CT Chest wo | [address] | Phone: | | | | | Contrast | [place], | [phone] | | | | | | [place] [address] | Fax: | | | | | | | [phone] | +--------+--------+ + + + + Encounter Details +--------+ + + + + | Date | Type | Department | Care Team | Description | +--------+ + + + + | 10/27/ | Hospital | [facility] | [place], | Abnormal chest CT | | 2012 | Encounter | MED CTR XRAY [address] | Becca Segura MD | | | | | [place] | | | | | | [place] [address] | | | | | | [phone] | | | +--------+ + + + [...] | | | | | [place] [address] | | | | | | [phone] | | | | | | | [...] Performed At | + + + | [facility] | [place] | | Department [address] [place] [address] | [facility] [employer] [facility] | | [ rep ct street1+2] [ rep ct [facility] | | st zip] Signed | - IMAGING | | | | | Patient Name: DIEGO LUCAS Physician: | | | MAGDA. : 1935 Age: 76 Sex: M Unit #: [id number] | | | Exam Date: 10/27/12 Location: [facility] | | | Report #: [id number] Page: | | | %(RAD)RES..mtdd.print.filter("pg") of %(RAD) | | | RES..mtdd.print.filter("tpg") | | | | | | Accession Number: [id number] | | | [id number] CHEST CT CLINICAL HISTORY: FOLLOWUP | | [...] | | | Transcribed Date/Time: 10/27/2012 16:01 Finance Lecturer: | | | AndrewSSP <<Signature on File>> | | | Yosef | | | MD Jimmie10/27/122003 <Electronically signed by Yosef Samuel MD> | | | Yosef Samuel MD 10/27/12 1521 Finance Lecturer: [employer] | | | [email or web address]/05/13 1601 Becca Castro MD | | | | | + + + + + + + + | Performing | Address | City/State/Zipcode | Phone Number | | Organization | | | | + + + + + | [facility] | [address] | [place] | [phone] | | [facility] | | [address] | | | - IMAGING | | | | + + + + + documented in this encounter Visit Diagnoses + + | Diagnosis | + + | Abnormal chest CT Nonspecific (abnormal) findings on radiological and other | | examination of other intrathoracic organs | + + documented in this encounter
--- OUTSIDE RECORDS SUMMARY | ~2019-02-24 | XMS | Encounter Summary ---
Demographics + + + | Address | [address] | | | [place] [address] | + + + | Home Phone [...] | Organization | [facility] [...] Team Providers + +------+ + | Care Spreading Machine Operator Name | Role | Phone [...] | RN | | | | | [place], | | | | | | [place] [address] | | | | | | [phone] | | | +--------+ + + + [...] | | | | | [place] [address] | | | | | | [phone] | | | | | | | | +--------+---------+ + + + documented as of this encounter Visit Diagnoses Not on filedocumented in this encounter"
--- OUTSIDE RECORDS SUMMARY | ~2019-02-24 | XMS | Encounter Summary ---
Demographics + + + | Address | [address] | | | [place] [address] | + + + | Home Phone [...] Organization | [facility] [...] Team Providers + +------+ + | Care Pile Header Name | Role | Phone | + [...] Provider Unknown | | | | | [place], [place] | [phone] | | | | | [address] | | | | | | [phone] | | | +--------+ + + + [...] | | | | | [place] [address] | | | | | | [phone] | | | | | | | [...]
--- OUTSIDE RECORDS SUMMARY | ~2019-02-24 | XMS | Encounter Summary ---
Demographics + + + | Address | [address] | | | [place] [address] | + + + | Home Phone [...] + + | Organization | [facility] | [...] Providers + +------+ + | Care Student Services Coordinator Name | Role | Phone | [...] + + | 05/31/ | Office | [facility] | Jorje Rutledge | Prostate cancer | | 2018 | Visit | [address] | [address] | (HCC) (Primary Dx); | | | | [place] [address] | [address] | Incomplete bladder | | | | [address] | [place] [address] | emptying | | | | [phone] | [phone] | | | | | | | [...] history ofT2c or T3 adenocarcinoma the prostate, [place] 4+3 = 7, PSA 13.9, which was [...] fracture; COPD (chronic obstructive pulmonary dis ease) ([facility]); Depression; Dermatophytosis tinea capitis; Diverticulosis (01/2015); Essential hypertension; Foot fracture (02/2012); Gastritis (01/2015); GI bleed (01/2015); Heart murmur; Heartburn; Hiatal hernia (01/2015); History of rectal bleeding; Hypoxia; Insomnia; Iron def iciency anemia; Kidney stone (2004); Lumbar disc herniation; Migraines; Mood disorder ([facility]) of unknown (axis III) etiology; Nocturnal hypoxia; Osteoarthritis; Peptic ulcer disease; Pne umonia (05/2012); Prostate cancer ([facility]) (2007); Pulmonary nodules; Seborrheic dermatitis of s calp; Shoulder fracture (02/2012); Supplemental oxygen dependent; SVT (supraventricular tachy cardia) ([facility]) (01/2014); TIA (transient ischemic attack); [...] or use drugs. Allergies Allergen Reactions Ipratropium [place] Hfa Other (See Comments) Reaction: Cough Penicillins [...] g by mouth Daily. 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 Occasional wrong word or [...] | | | | | | [place] [address] | | | | | | [phone] | | | | | | | [...] Expected: | | | | e | ([facility]) Incomplete | 08/23/2017, Expires: | [...]
--- OUTSIDE RECORDS SUMMARY | ~2019-02-24 | XMS | Encounter Summary ---
Demographics + + + | Address | [address] | | | [place] [address] | + + + | Home Phone [...] | Organization | [facility] | | | and [...] Team Providers + +------+ + | Care Sole Filler Name | Role | Phone | + [...] Segura MD | | | | | [place], | | | | | | [place] [address] | | | | | | [phone] | | | +--------+ + + + [...] | | | | | [place] [address] | | | | | | [phone] | | | | | | | | +--------+---------+ + + + documented as of this encounter Visit Diagnoses Not on filedocumented in this encounter"
--- OUTSIDE RECORDS SUMMARY | ~2019-02-24 | XMS | Encounter Summary ---
Demographics + + + | Address | [address] | | | [place] [address] | + + + | Home Phone [...] Organization | [facility] | | | and [place] [...] Providers + +------+ + | Care Sand Digger Name | Role | Phone | + [...] | with CXR) | | | | [place], | | | | | | [place] [address] | | | | | | [phone] | | | +--------+ + + + [...] | | | | | | [place] [address] | | | | | | [phone] | | | | | | | [...] ST. | [address] | [place], [place] | [phone] | | [facility] | | [address] | | | - IMAGING | | | | + + + + + documented in this encounter Visit Diagnoses + + | Diagnosis | + + | Pneumonia of left lower lobe due to infectious organism (HCC) - Primary | + + documented in this encounter"
--- OUTSIDE RECORDS SUMMARY | ~2019-02-24 | XMS | Encounter Summary ---
Demographics + + + | Address | [address] | | | [place] [address] | + + + | Home Phone [...] Organization | [facility] [...] Team Providers + +------+ + | Care Boom Master Name | Role | Phone | + [...] + + | 05/30/ | Office | [facility] | Jorje Rutledge | Prostate cancer | | 2019 | Visit | [address] | [address] | (HCC) (Primary Dx) | | | | [place] | [address] [facility] | | | | | [address] | [place] [address] | | | | | [phone] | [phone] | | | | | | | [...] COPD (chronic obstructive pulmonary dis ease) ([facility]), Depression, Dermatophytosis tinea capitis, Diverticulosis (01/2015), Essential hypertension, Foot fracture (02/2012), Gastritis (01/2015), GI bleed (01/2015), Heart murmur, Heartburn, Hiatal hernia (01/2015), History of rectal bleeding, Hypoxia, Insomnia, Internal bleeding (2017), Iron deficiency anemia, Kidney stone (2004), Lumbar disc herniation, Migra marcelino, Mood disorder ([facility]) of unknown (axis III) etiology, Nocturnal hypoxia, Osteoarthritis, Peptic ulcer disease, Pneumonia (05/2012), Prostate cancer ([facility]) (2007), Pulmonary nodules, Seborrheic dermatitis of scalp, Shoulder fracture (02/2012), Supplemental oxygen dependent, S VT (supraventricular tachycardia) ([facility]) (01/2014), TIA (transient ischemic attack), and [...] powder Take by mouth. 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 Although ever y effort is made to edit the content, school cleaner errors may occur. Occasional wrong word or [...] | | | | | [place] [address] | | | | | | [phone] | | | | | | | [...] CONF | e | 9:34 AM | ([facility]) | procedure are in the | [...] 1.001 - 1.030 | | | | [place], | | | | | | UA, [...]
--- OUTSIDE RECORDS SUMMARY | ~2019-02-24 | XMS | Encounter Summary ---
Demographics + + + | Address | [address] | | | [place] [address] | + + + | Home Phone [...] Organization | [facility] [...] Team Providers + +------+ + | Care Planishing Hammer Operator Name | Role | Phone | [...] Provider Unknown | | | | | [place], [place] | [phone] | | | | | [address] | | | | | | [phone] | | | +--------+ + + + [...] [address] | | | | | | [place] [address] | | | | | | [phone] | | | | | | | [...]
--- OUTSIDE RECORDS SUMMARY | ~2019-02-24 | XMS | Encounter Summary ---
Demographics + + + | Address | [address] | | | [place] [address] | + + + | Home Phone [...] | Organization | [facility] | | [...] Team Providers + +------+ + | Care Plumber Name | Role | Phone | [...] [address] | | | | | [place], [place] | [address] [facility] | | | | | [address] | [place] [address] | | | | | [phone] | [phone] | | | | | | | [...] | | | | | [place] [address] | | | | | | [phone] | | | | | | | | +--------+---------+ + + + documented as of this encounter Visit Diagnoses Not on filedocumented in this encounter"
--- OUTSIDE RECORDS SUMMARY | ~2019-02-24 | XMS | Encounter Summary ---
Demographics + + + | Address | [address] | | | [place] [address] | + + + | Home Phone [...] Organization | [facility] | [...] | + + + + + | aCndis Haney ECON | NA | | | | | [place] | | + + + + + Care Team Providers + +------+ + | Care Filterer Name | Role | Phone | + +------+ + | Parviz Brar DO | PCP | | + +------+ + Encounter Details +--------+ + + + + | Date | Type | Department | Care Team | Description | +--------+ + + + + | 03/06/ | Hospital | [facility] | Offenstein, | Pneumonia of left | | 2016 | Encounter | MED CTR XRAY [address] | Becca Segura MD | lower lobe due to | | | | [place] | | infectious organism | | | | [place] [address] | | | | | | [phone] | | | +--------+ + + + [...] | | | | | [place] [address] | | | | | | [phone] | | | | | | | [...] ST. | [address] | [place] | [phone] | | [facility] | | [address] | | | - IMAGING | | | | + + + + + documented in this encounter Visit Diagnoses + + | Diagnosis | + + | Pneumonia of left lower lobe due to infectious organism (HCC) | + + documented in this encounter"
--- OUTSIDE RECORDS SUMMARY | ~2019-02-24 | XMS | Encounter Summary ---
Demographics + + + | Address | [address] | | | [place] [address] | + + + | Home Phone [...] + | Organization | [facility] | | [...] Team Providers + +------+ + | Care Presser Automatic Name | Role | Phone | [...] Segura MD | | | | | [place], | | | | | | [place] [address] | | | | | | [phone] | | | +--------+ + + + [...] | | | | | [place] [address] | | | | | | [phone] | | | | | | | | +--------+---------+ + + + documented as of this encounter Visit Diagnoses Not on filedocumented in this encounter"
--- OUTSIDE RECORDS SUMMARY | ~2019-02-24 | XMS | Encounter Summary ---
Demographics + + + | Address | [address] | | | [place] [address] | + + + | Home Phone [...] | Organization | [facility] | | | and [place] | + [...] Team Providers + +------+ + | Care Grill Prep Cook Name | Role | Phone | [...] + + | 11/29/ | Telephone | [facility] | Jorje Rutledge | Medication Prior | | 2018 | | [address] | [address] | Authorization | | | | [place], [place] | [address] [facility] | (Megestrol ) | | | | [address] | [place] [address] | | | | | [phone] | [phone] | | | | | | | [...] | | | | | [place] [address] | | | | | | [phone] | | | | | | | | +--------+---------+ + + + documented as of this encounter Visit Diagnoses Not on filedocumented in this encounter"
--- OUTSIDE RECORDS SUMMARY | ~2019-02-24 | XMS | Encounter Summary ---
Demographics + + + | Address | [address] | | | [place] [address] | + + + | Home Phone [...] Providers + +------+ + | Care Animal Assisted Therapist Name | Role | Phone | [...] | | | | Vasiliy Jeong | [facility], | | | 06/08/ | | [facility] | [place] [address] | | | 2012 | | [place], [place] | [phone] | | | | | [address] | | | | | | [phone] | Benjie Cardona MD | | | | | | [address] | | | | | | [place], | | | | | | [place] [address] | | | | | | [phone] | | | | | | | | | | | | Sheeba Edwards, | | | | | | COLLEGE TEACHER [address] | | | | | | [address] | | | | | | [place], [place] | | | | | | [address] | | | | | | [phone] | | | | | | | [...] and HTN cesar ntjewell staying in the [facility] who presented to the ED for [...] Mr. Lucas was discharged back to the [facility]. Discharge vitals: BP 131/76 | Pulse [...] (25-50cells/HPF) (none) HYPOCHROMIA 1+ (10-25cells/HPF) (none) Disposition: [facility] Discharge Condition: stable Medications: Cephalexin 500 mg PO q 6 hours while nasal packing is in place. Instructions: 1. Activity:As tolerated 2. Diet:Prudent diet 3. Return to ED if symptoms worsen Follow-up: Follow-up in head/neck resident clinic on Wednesday06/13/2012 for nasal packing removal and re -evaluation. Sheeba BORWN Department of Emergency Medicine documented in th [...] Packing: After Your Visit", log into your Storie account at [email or web address]. You can enter [id number] in the [employer] Library" search box. Not on Storie? Review the [place] [employer] section of your After Visit Summary for directions on ho w to sign up. [phone] Nekted. Care instructions adapted under license by [facility] [place]. This care instruction is for use with your licensed healthcar e professional. If you have questions about a medical condition or this instruction, always ask your healthcare professional. [employer]ekted disclaims any warranty or liabili ty for your use of this information. Content Version: 9.6.630171; Last Revised: April 06, 2011 Nosebleeds: After [...] "Nosebleeds: After Your Visit", log into your Storie account at [email or web address] Name. You can enter S156 in the [employer]" search box. Not on Storie? Review the Storie section of your After Visit Summary for directions on ho w to sign up. [phone] Nekted. Care instructions adapted under license by [facility] [place]. This care instruction is for use with your licensed healthBeam. e professional. If you have questions about a medical condition or this instruction, always ask your healthcare professional. Nekted disclaims any warranty or liabili ty for your use of this information. Content Version: 9.6.619236; Last Revised: August 19, 2011 documented in [...] [facility] | [address] | [place] [address] | | | NAYELI, RAFAEL | ELIECER [...] | + + + + + | [facility] | [address] | [place] [address] | | | SERVICES, CORE | ELIECER [...] - KRIS | [address] | [place], [place] | | | [place] [facility] | [address] | [address] | | | TESTS | | | [...] | + + + + + | [facility] | [address] | [place] [address] | | | SERVICES, CORE | PARK [...]
--- OUTSIDE RECORDS SUMMARY | ~2019-02-24 | XMS | Encounter Summary ---
Demographics + + + | Address | [address] | | | [place] [address] | + + + | Home Phone [...] Organization | [facility] | | | [...] Team Providers + +------+ + | Care Correctional Program Officer Name | Role | Phone | [...] [address] | | | | | [place], [place] | [facility] | | | | | [address] | [place] [address] | | | | | [phone] | [phone] | | | | | | | [...] | | | | | [place] [address] | | | | | | [phone] | | | | | | | | +--------+---------+ + + + documented as of this encounter Visit Diagnoses Not on filedocumented in this encounter"
--- OUTSIDE RECORDS SUMMARY | ~2019-02-24 | XMS | Encounter Summary ---
Demographics + + + | Address | [address] | | | [place] [address] | + + + | Home Phone | | + + + | Preferred Language | Unknown | + + + | Marital Status | | + + + | Gnosticist Affiliation | PRE | + + + [...] Team Providers + +------+ + | Care Comsec Manager Name | Role | Phone | [...] + + | 06/09/ | Hospital | [facility] [address] | Roberto Pena, | | | 2013 - | Encounter | [facility] Mailcode: | MD Gabrielle Garces | | | | | [address] | [address] | | | 06/14/ | | [place], | [place], [place] | | | 2012 | | [place] [address] | [address] | | | | | [phone] | [phone] | | | | | | | | | | | | Fredrick Cherry, | | | | | | MD Gabrielle Garces | | | | | | [address] | | | | | | [place], [place] | | | | | | [address] | | | | | | [phone] | | | | | | | [...] medications Details oxymetazoline 0.05 % Nasal Aerosol, Hasty Instill 2 Sprays into each nostril every six hour s as needed (Epistaxis). Use for only 3 days. sodium chloride 0.65 % Nasal Aerosol, Hasty Instill 2 Sprays in nose every two [...] concerning symptoms, call Dr. Cherry's clinic at [phone]. If you fee l you are having [...] Wednesday for packing removal at 2:30 pm. [facility] [phone] for questions. Destination: Destination: [facility] Condition [...] | | | 13 | | | Hasty | every six hours as | | [...] | | 13 | | | Aerosol, Hasty | while awake. | | | | [...] 10:44 AM PDT PATIENT NAME: Diego Lucas [facility] MR#: [id number] : 1935 PRIMARY CARE PROVIDER: Parviz Brar, [...] though he uses supplemental oxygen at his [facility]. ASSESSMENT: Mr. Lucas remains hospitalized for epistaxis [...] pack removal on Wednesday. Fredrick Cherry M.D. Pediatric Lpn Laryngology and Head & Neck Surgery [facility] DEPARTMENT: ENT LARYNGOLOGY PPV - [id number] Place of Service: [address] - Date of Service: 06/14/2012 CSN: [id number] Suggested Modifiers: GC - Resident Involved Suggested Level of Care: 96521 - Discharge Day mgmt up to 30 min Fredrick Villasenor MD - 06/13/2012 11:21 PM PDT PATIENT NAME: Diego Lucas [facility] MR#: [id number] : 1935 PRIMARY CARE PROVIDER: Parviz Brar, [...] if still not bleeding. Fredrick Cherry M.D. Pediatric Lpn Laryngology and Head & Neck Surgery [facility] DEPARTMENT: ENT LARYNGOLOGY PPV - [id number] Place of Service: [address] - Date of Service: 06/13/2012 CSN: [id number] Suggested Modifiers: GC - Resident Involved Suggested Level of Care: 62364 - Subsequent, Prob Foc/low complex 15 min Rush Mahmood MD - 06/13/2012 12:16 PM PDT [facility] Department of Surgery ENT Head & [...] -Recheck crit tomorrow am Dispo: Back to [facility] tomorrow. Dr. Fredrick Cherry MD is the attending of record for this patient encounter. RUSH MOSS MD PGY-1, Plastic and Reconstructive Surgery pgr [phone] Diagnoses: 784.7 Epistaxis 040012 Anemia Meds: amLODIPine (aka NORVASC) tablet 5 [...] (aka AFRIN) 0.05 % nasal spray 2 Hasty, 2 Hasty, both nostrils, Q6H polyethylene glycol (aka MIRALAX) powder 17 g, 17 g, Oral, DAILY promethazine (aka PHENERGAN) injection 12.5 mg, 12.5 mg, Intravenous, Q6H PRN sodium chloride (aka OCEAN) 0.65 % nasal spray 2 Hasty, 2 Hasty, Nasal, Q2H [place] tamsulosin (aka FLOMAX) capsule 0.4 mg, 0.4 mg, Oral, QPM temazepam (aka RESTORIL) capsule 15 mg, 15 mg, Oral, HS PRN Fredrick Villasenor MD - 06/12/2012 9:17 PM PDT PATIENT NAME: Diego Lucas [facility] MR#: [id number] : 1935 PRIMARY CARE PROVIDER: Parviz Brar [...] equal. Vision is grossly intact on the ca ght. There is no red desaturation. The [...] Observe for resumed bleeding. Fredrick Cherry M.D. Pediatric Lpn Laryngology and Head & Neck Surgery [facility] DEPARTMENT: ENT LARYNGOLOGY [facility] - [id number] Place of Service: [address] - Date of Service: 06/12/2012 CSN: [id number] Suggested Modifiers: GC - Resident Involved Suggested Level of Care: 90265 - Subsequent, Prob Foc/low complex 15 min [...] 20 mg, 20 mg, Oral, QAM, Oc Cohcran MD, 20 mg at 06/12 1003 ondansetron (aka ZOFRAN) injection 4 mg, 4 mg, Intravenous, Q12H PRN, Oc Cochran MD, 4 m g at 06/11/12 1005 oxyCODONE (immediate release) (aka ROXICODONE) tablet 5 mg, 5 mg, Oral, Q6H PRN, Oc osorio MD, 5 mg at 06/12/12 0452 oxymetazoline (aka AFRIN) 0.05 % nasal spray 2 Hasty, 2 Hasty, both nostrils, Q6H, Oc Cochran MD, 2 Hasty at 06/11/12 0218 polyethylene glycol (aka MIRALAX) powder 17 g, 17 g, Oral, DAILY, Oc Cochran MD, 17 g at 06/10/12 0837 promethazine (aka PHENERGAN) injection 12.5 mg, 12.5 mg, Intravenous, Q6H PRN, Oc Cochran MD, 12.5 mg at 06/10/12 2210 sodium chloride (aka OCEAN) 0.65 % nasal spray 2 Hasty, 2 Hasty, Nasal, Q2H [place], Mckenzie Myers MD, 2 Hasty at 06/12/12 0127 tamsulosin (aka FLOMAX) capsule [...] Oc Cochran MD, 250 mg at 06/10/12 5503 ceFAZolin (aka ANCEF) IV 1 g, 1 [...] (aka AFRIN) 0.05 % nasal spray 2 Hasty, 2 Hasty, both nostrils, Q6H, Oc Cochran MD, 2 Hasty at 06/11/12 0218 polyethylene glycol (aka MIRALAX) powder 17 g, 17 g, Oral, DAILY, Oc Cochran MD, 17 g at 06/10/12 0837 promethazine (aka PHENERGAN) injection 12.5 mg, 12.5 mg, Intravenous, Q6H PRN, Oc Cochran MD, 12.5 mg at 06/10/12 2210 sodium chloride (aka OCEAN) 0.65 % nasal spray 2 Hasty, 2 Hasty, Nasal, Q2H [place], Mckenzie Myers MD, 2 Hasty at 06/10/12 2234 tamsulosin (aka FLOMAX) capsule [...] (aka AFRIN) 0.05 % nasal spray 2 Hasty, 2 Hasty, both nostrils, Q6H, Oc Cochran MD, 2 Hasty at 06/10/12214 polyethylene glycol (aka MIRALAX) powder [...] Otolaryngology Head and Neck Surgery PGY2 pager [phone] documented in this enco unter Plan of [...] | | | een | | | [address] | | | | | | 3 [...] view image for the detailed interpretation from Remote results. | CARDIOLOGY | + + + + + + + + | Performing | Address | City/State/Zipcode | Phone Number | | Organization | | | | + + + + + | [facility] | [address] | [place], [place] | | | CARDIOLOGY | [address] | [address] | | + + + + + [...] [facility] | [address] | [place] [address] | | | SERVICES, RAFAEL | ELIECER [...] | | | LABORATORY | | | [place] | | | SERVICES, | | | [...] | + + + + + | [facility] | [address] | [place] [address] | | | SERVICES, CORE | PARK [...] | + + + + + | [facility] | [address] | [place] [address] | | | SERVICES, CORE | ELIECER [...] | + + + + + | [facility] | [address] | [place] [address] | | | SERVICES, [facility] | [address] | | | + + + + + OPERATION RECORD (06/13/2012 3:45 PM PDT) + + | Transcriptions | + + | Janeth Casiano MD - 06/12/2012 11:40 PM PDT Date: | | 06/11/2012ttending Surgeon: Fredrick Cherry M.D.Appeals Analyst(s): | | Janeth Casiano M.D. | | [...] | irrigation.Anesthesia:General.Blood Loss:25 cc.Complications:None | | apparent.Specimens:None.Drains:Quarter-inch [place] in right medial orbital | | incision.Indications:Mr. [...] [place]allero | | Lydia Casiano M.D.LALA / [id number] / [id number] / [id number] / T: | | 06/12/2012 | |superior [...] a small gauze was placed over the [place] | |drain in the right medial Jimenez [...] | | | |JGL / HS | |[id number] / [id number] / [id number] / | | | | | + [...] [facility] | [address] | [place] [address] | | | SERVICES, CORE | PARK [...] | + + + + + | [facility] | [address] | [place] [address] | | | SERVICES, CORE | PARK [...] | + + + + + | [facility] | [address] | [place] [address] | | | NAYELI, RAFAEL | EL[address]ECER [...] | 287.5 | 275 - 295 | [facility] - | | | VENOUS, POC | | mmol/kg | KRIS | | | | | | SOPHIA GUERRERO | | | | | | OF CARE | | | | | | TESTS | | + + + + + + | PH VENOUS, | 7.37 | 7.35 - 7.45 | [facility] - | | | POC | [...] PATRICAAM | [address] | [place], [place] | | | SOPHIA GUERRERO OF CARE | [facility] | [address] | | | TESTS | | | [...] | | | POC | | | [place] | | [...] - KRIS | [address] | [place], [place] | | | SOPHIA GUERRERO OF [facility] | [address] | [address] | | | TESTS | | | [...] + + + + | PRODUCT | [id number] | | [facility] | | | UNIT [...] + + + + | BLOOD | [id number] | | [facility] | | | PRODUCT [...] + + + + | [facility] | [address] | [place] [address] | | | PATHOLOGY | [address] [...] + + + + | PRODUCT | [id number] | | [facility] | | | UNIT [...] + + + + | BLOOD | 04888 | | [facility] | | | PRODUCT [...] [facility] | [address] | [place] [address] | | | PATHOLOGY | [address] [...] view image for the detailed interpretation from Remote results. | CARDIOLOGY | + + + + + + + + | Performing | Address | City/State/Zipcode | Phone Number | | Organization | | | | + + + + + | [facility] | [address] | [place], [place] | | | CARDIOLOGY | [address] | [address] | | + + + + + [...] [facility] | [address] | [place] [address] | | | SERVICES, CORE | PARK [...] | + + + + + | [facility] | [address] | [place] [address] | | | SERVICES, CORE | PARK [...] | + + + + + | [facility]wolf | [address] | [place] [address] | | | SERVICES, CORE | PARK [...] + + + + | PRODUCT | [id number] | | [facility] | | | UNIT [...] + + + + | BLOOD | 85265 | | [facility] | | | PRODUCT [...] DEPARTMENT OF | [address] | [place] [address] | | | PATHOLOGY | [address] [...] + + + + | PRODUCT | [id number] | | [facility] | | | UNIT [...] + + + + | BLOOD | 32015 | | [facility] | | | PRODUCT [...] + + + + | [facility] | [address] | [place] [address] | | | PATHOLOGY | [address] [...] + + + + | PRODUCT | [id number] | | [facility] | | | UNIT [...] + + + + | BLOOD | 29223 | | [facility] | | | PRODUCT [...] + + + + + | [facility] | [address] | [place] [address] | | | PATHOLOGY | [address] [...] | + + + + + | [facility] | [address] | [place] [address] | | | SERVICES, CORE | ELIECER [...] | | | LABORATORY | | | BURMESE | | | SERVICES, | | | [...] the MDRD equation recommended by the | [facility] | | National Kidney Disease Education [...] | + + + + + | [facility] | [address] | [place] [address] | | | SERVICES, CORE | PARK [...] | + + + + + | [facility] | [address] | [place] [address] | | | SERVICES, CORE | PARK [...] | + + + + + | [facility] | [address] | [place] [address] | | | SERVICES, CORE | PARK [...] | | | | | | M.D. ARCHITECTURE TECHNICIAN SURGEONS: | | | | | [...] | | | | | Bentson wire,a 6-Hungarian | | | | | | short sheath was | | | | | | placed. Through the | | | | | | 6-Hungarian shortsheath, a | | | | | | 6-Hungarian Envoy was | | | | | [...] | + + + + + | [facility] | [address] | [place] [address] | | | SERVICES, | [address] [...] [facility] | [address] | [place] [address] | | | SERVICES, | [address] [...] [facility] | [address] | [place] [address] | | | SERVICES, CORE | PARK [...] PONCE | [address] | [place], [place] | | | HOLLY GUERRERO | [address] | [address] | | | TESTS | | | [...] PDT | | | | | Until [place] 06/12/12 at 1015 | | | | [...] | | | % nasal spray 2 Hasty 2 spray, | | 13 9:01 | [...] | | 0.65 % nasal spray 2 Hasty 2 | | 13 2:17 | | [...]
--- OUTSIDE RECORDS SUMMARY | ~2019-02-24 | XMS | Clinical Summary ---
Demographics + + + | Address | [address] | | | [place] [address] | + + + | Home Phone | | + + + | Preferred Language | Unknown | + + + | Marital Status | Unknown | + + + | Amish Affiliation | Unknown | + + + | Race | Unknown | + + + | Ethnic Group | Unknown | + + + Author + + + | Author | [facility] (Historical as of | | | 10-08-18) | + + + | Organization | [facility] (Historical as of | | | 10-08-18) [...] Team Providers + +------+ + | Care Professor Of Floriculture Name | Role | Phone | + [...] +------+-------+ + | MEDICARE | MEDICA | [id number] | | | [address] | | | RE | | | | [place] [address] | | | IP-OP | | | | | + +--------+ +------+-------+ + | COMMERCIAL OTHER | TRANSA | [id number] | | | | | | MERICA [...] | 1936 | [phone] | [place] [address] | | | leslie | | | [phone] | | + +--------+ +--------+ + +
--- OUTSIDE RECORDS SUMMARY | ~2019-02-24 | XMS | Encounter Summary ---
Demographics + + + | Address | [address] | | | [place] [address] | + + + | Home Phone [...] | Organization | [facility] | | | and [place] [...] Team Providers + +------+ + | Care Mechanical Manufacturing Technician Name | Role | Phone | [...] + + | 05/04/ | Telephone | [facility] | Marc Odell | Results, Imaging | | 2018 | | GASTROENTEROLOGY | MD Noe [address] | | | | | [address] [facility] | [address] [facility] | | | | | [address] | [place] [address] | | | | | [address] | [phone] | | | | | [phone] | | | +--------+ + + + [...] | | | | | [place] [address] | | | | | | [phone] | | | | | | | | +--------+---------+ + + + documented as of this encounter Visit Diagnoses Not on filedocumented in this encounter"
--- OUTSIDE RECORDS SUMMARY | ~2019-02-24 | XMS | Encounter Summary ---
Demographics + + + | Address | [address] | | | [place] [address] | + + + | Home Phone [...] Organization | [facility] [...] Providers + +------+ + | Care Electric Accounting Machine Operator Name | Role | Phone [...] + + | 12/18/ | Office | [facility] | [place], | COPD (chronic | | 2013 | Visit | PULMONARY [address] | Becca Segura MD | obstructive | | | | [place], | | pulmonary disease) | | | | [place] [address] | | (Primary Dx); | | | | [phone] | | Nocturnal hypoxemia | | | [...] He is currently on 2 LPM at [facility]. He reports good compliance. He [...] Pulmonary nodules Cataracts, bilateral Pneumonia 05/2012 hospitalized [facility] Shoulder fracture 02/2012 Foot fracture 02/2012 [...] home. No other animal exposures.Grew up in [place]. Then lived in [place]. Then move d to [place]. In the service lived in [facility] and [place]. No recent travel. Allergies: Allergies Allergen Reactions [...] into the lungs nightly. Respiratory Therapy Supplies [facility] Please provide an O2 concentrator while Diego [...] made to ensure accuracy; however, inadvertent computerized helper animal laboratory errors may be pre sent. Electronically signed [...] | | | | | [place] [address] | | | | | | [phone] | | | | | | | [...]
--- OUTSIDE RECORDS SUMMARY | ~2019-02-24 | XMS | Encounter Summary ---
Demographics + + + | Address | [address] | | | [place] [address] | + + + | Home Phone [...] | Organization | [facility] | | [...] Providers + +------+ + | Care Field Cane Scaler Name | Role | Phone | + [...] | | Abnormal | [place], | [address] | | | | | chest CT | Becca Segura, | [place], | | | | | Procedures | [address] | [place] [address] | | | | | CT Chest wo | [address] | Phone: | | | | | Contrast | [place], | [phone] | | | | | | [place] [address] | Fax: | | | | | | | [phone] | +--------+--------+ + + + + Encounter Details +--------+ + + + + | Date | Type | Department | Care Team | Description | +--------+ + + + + | 01/26/ | Hospital | [facility] | [place], | Abnormal chest CT | | 2012 | Encounter | MED CTR XRAY [address] | Becca Segura MD | | | | | [place] [place] | | | | | | [place] [address] | | | | | | [phone] | | | +--------+ + + + [...] FRAUSTO | | | | | | [place] [address] | | | | | | [phone] | | | | | | | [...] Performed At | + + + | [facility] Diagnostic [facility] | [place] | | Department [facility] | [facility] | | [ rep ct street[address]] [ rep ct [facility] | | st zip] Signed | - IMAGING | | | | | Patient Name: DIEGO LUCAS Physician: | | | E. : 1935 Age: 77 Sex: M Unit #: [id number] | | | Exam Date: 01/26/13 [place] [facility] | | | Report #: [id number] Page: | | | %(RAD)RES..mtdd.print.filter("pg") of %(RAD) | | | RES..mtdd.print.filter("tpg") | | | | | | Accession Number: [id number] | | | CT CHEST WITHOUT CONTRAST [...] Transcribed Date/Time: | | | 01/26/2013 15:57 Domestic Freight Forwarder: | | | <<Signature on File>> | | | Froylan | | | Olivia Rodriguez MD01/26/132200 <Electronically signed by Froylan Baker | Lyndon Rodriguez MD> Froylan Rodriguez MD 01/26/13 1544 | | | Domestic Freight Forwarder: [employer] Bqvlirmefmgmy96/05/13 1557 | | | Becca Castro MD | | + + + + + + + + | Performing | Address | City/State/Zipcode | Phone Number | | Organization | | | | + + + + + | [facility] | [address] | [place] | [phone] | | [facility] | | [address] | | | - IMAGING | | | | + + + + + documented in this encounter Visit Diagnoses + + | Diagnosis | + + | Abnormal chest CT Nonspecific (abnormal) findings on radiological and other | | examination of other intrathoracic organs | + + documented in this encounter
--- OUTSIDE RECORDS SUMMARY | ~2019-02-24 | XMS | Encounter Summary ---
Demographics + + + | Address | [address] | | | [place] [address] | + + + | Home Phone [...] Organization | [facility] | [...] Team Providers + +------+ + | Care Hollow Ware Maker Name | Role | Phone | [...] MD | obstructive | | | | [place], | | pulmonary disease) | | | | [place] [address] | | (Primary Dx); | | | | [phone] | | Nocturnal hypoxemia | | | [...] PSTDo an overnight oxy gen test through [facility]. Call the [employer] before you pick it up to make sure th ey have a box available. You will mushroom picker a box at the [employer]. Do the test on 2 L. Wear [...] been doing okay. He did have a quality assurance monitor body that showed he was having episod es [...] 1 1/2 months. He returns today for [facility] follow up. Currently he is able [...] Pulmonary nodules Cataracts, bilateral Pneumonia 05/2012 hospitalized [facility] Shoulder fracture 02/2012 Foot fracture [...] home. No other animal exposures.Grew up in [place]. Then lived in [place]. Then move d to [place]. In the service lived in [facility] and [place]. No recent travel. Allergies: Allergies Allergen Reactions [...] into the lungs nightly. Respiratory Therapy Supplies [facility] Please provide an O2 concentrator [...] made to ensure accuracy; however, inadvertent computerized hat blocking operator errors may be pre sent. documented [...] | | | | | [place] [address] | | | | | | [phone] | | | | | | | [...] | | | | | ([facility]) | | + + +--------+ [...]
--- OUTSIDE RECORDS SUMMARY | ~2019-02-24 | XMS | Encounter Summary ---
Demographics + + + | Address | [address] | | | [place] [address] | + + + | Home Phone [...] | Organization | [facility] | [...] Team Providers + +------+ + | Care Blast Furnace Supervisor Name | Role | Phone | + +------+ + | Parviz rBar DO | PCP | | + +------+ + Encounter Details +--------+ + + + + | Date | Type | Department | Care Team | Description | +--------+ + + + + | 04/07/ | Abstract | [facility] [place] | Froylan Werner MD | | | 2018 | | GASTROENTEROLOGY | [address], [place] | | | | | [address] [place] | [address] [place], [place] | | | | | [address] [place], [place] | [address] | | | | | [address] | | | | | | [phone] | | | +--------+ + + + [...] | | | | | [place] [address] | | | | | | [phone] | | | | | | | [...]
--- OUTSIDE RECORDS SUMMARY | ~2019-02-24 | XMS | Encounter Summary ---
Demographics + + + | Address | [address] | | | [place] [address] | + + + | Home Phone [...] | Organization | [facility] | | [...] Team Providers + +------+ + | Care Branch Operations Manager Name | Role | Phone | + +------+ + | Parviz Brar DO | PCP | | + +------+ + Encounter Details +--------+ + + + + | Date | Type | Department | Care Team | Description | +--------+ + + + + | 06/16/ | Hospital | [facility] | Conversion | Pain | | 2017 | Encounter | CONVERSION [address] | Transaction, | | | | | [address] | Provider Unknown | | | | | [place], [place] | [phone] | | | | | [address] | | | | | | [phone] | | | +--------+ + + + [...] | | | | | [place] [address] | | | | | | [phone] | | | | | | | [...]
--- OUTSIDE RECORDS SUMMARY | ~2019-02-24 | XMS | Encounter Summary ---
Demographics + + + | Address | [address] | | | [place] [address] | + + + | Home Phone [...] Organization | [facility] | [...] Team Providers + +------+ + | Care Older Adult Social Work Specialist Name | Role | Phone | + +------+ + PCP | Unavailable | + +------+ + Encounter Details +--------+ + + + + | Date | Type | Department | Care Team | Description | +--------+ + + + + | 08/22/ | Hospital | [facility] | | | | 2007 - | Encounter | MED CTR CANCER | | | | | | CENTER [address] | | | | 09/21/ | | [place] | | | | 2007 | | [address] | | | | | | [phone] | | | +--------+ + + + [...] | | | | | | [place] [address] | | | | | | [phone] | | | | | | | | +--------+---------+ + + + documented as of this encounter Visit Diagnoses Not on filedocumented in this encounter"
--- OUTSIDE RECORDS SUMMARY | ~2019-02-24 | XMS | Encounter Summary ---
Demographics + + + | Address | [address] | | | [place] [address] | + + + | Home Phone [...] | Organization | [facility] | | | [...] Team Providers + +------+ + | Care Technician Submarine Cable Equipment Name | Role | Phone | + +------+ + PCP | Unavailable | + +------+ + Encounter Details +--------+ + + + + | Date | Type | Department | Care Team | Description | +--------+ + + + + | 07/23/ | Hospital | [facility] | | | | 2007 - | Encounter | MED CTR CANCER | | | | | | CENTER [address] | | | | 08/21/ | | [place] | | | | 2007 | | [address] | | | | | | [phone] | | | +--------+ + + + [...] | | | | | | [address] | | | | | | [place] [address] | | | | | | [phone] | | | | | | | | +--------+---------+ + + + documented as of this encounter Visit Diagnoses Not on filedocumented in this encounter"
--- OUTSIDE RECORDS SUMMARY | ~2019-02-24 | XMS | Encounter Summary ---
Demographics + + + | Address | [address] | | | [place] [address] | + + + | Home Phone [...] Organization | [facility] | | [...] Team Providers + +------+ + | Care Biomedical Engineer Name | Role | Phone | [...] + + | 03/02/ | Office | [facility] | Jorje Rutledge | Prostate cancer | | 2018 | Visit | [address] | MD [address] | ([facility]) (Primary Dx) | | | | [place], [place] | 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 Past [...] mouth Daily. 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 Occasional wrong- word or [...] [place]O | | | | | | [place] [address] | | | | | | [phone] | | | | | | | | +--------+---------+ + + + + +------+--------+ + + | Name | Type | Priori | Associated Diagnoses | Order Schedule | | | | ty | | | + +------+--------+ + + | Basic Metabolic | Lab | Routin | Prostate cancer | Expected: | | Panel | | e | ([facility]) | 05/24/2017, Expires: | | | | | | 03/03/2018 | + +------+--------+ + + | PSA, Diagnostic | Lab | Routin | Prostate cancer | Expected: | | | | e | ([facility]) | 05/24/2017, Expires: | | | | [...] 1.001 - 1.030 | | | | [place], | | | | | | UA, [...]
--- OUTSIDE RECORDS SUMMARY | ~2019-02-24 | XMS | Encounter Summary ---
Demographics + + + | Address | [address] | | | [place] [address] | + + + | Home Phone [...] | Organization | [facility] | | | and [place] [...] Team Providers + +------+ + | Care Architecture Department Chair Name | Role | Phone | + [...] Segura MD | | | | | [place], | | | | | | [place] [address] | | | | | | [phone] | | | +--------+ + + + [...] | | | | | [place] [address] | | | | | | [phone] | | | | | | | | +--------+---------+ + + + documented as of this encounter Visit Diagnoses Not on filedocumented in this encounter"
--- OUTSIDE RECORDS SUMMARY | ~2019-02-24 | XMS | Encounter Summary ---
Demographics + + + | Address | [address] | | | [place] [address] | + + + | Home Phone [...] Organization | [facility] | [...] Providers + +------+ + | Care Fur Blowing Machine Operator Name | Role | Phone [...] | | | | | [place] | [address] | | | | | [address] | [place] [address] | | | | | [phone] | [phone] | | | | | | | [...] | | | | | [place] [address] | | | | | | [phone] | | | | | | | [...] Comment | + + | [facility] | + + + +---------+ + + | Performing | Address | City/State/Zipcode | Phone Number | | Organization | | | | + +---------+ + + | EXTERNAL LAB | | | | + +---------+ + + documented in this encounter Visit Diagnoses Not on filedocumented in this encounter"
--- OUTSIDE RECORDS SUMMARY | ~2019-02-24 | XMS | Encounter Summary ---
Demographics + + + | Address | [address] | | | [place] [address] | + + + | Home Phone [...] Organization | [facility] | | [...] Team Providers + +------+ + | Care Ruby On Rails Developer Name | Role | Phone | [...] + + | 05/04/ | Telephone | [facility] | Marc Odell | Results, Imaging | | 2018 | | GASTROENTEROLOGY | MD No[address] | | | | | [address] [facility] | [facility] | | | | | [address] [place] | [place] [address] | | | | | [address] | [phone] | | | | | [phone] | | | +--------+ + + + [...] | | | | | [place] [address] | | | | | | [phone] | | | | | | | | +--------+---------+ + + + documented as of this encounter Visit Diagnoses Not on filedocumented in this encounter"
--- OUTSIDE RECORDS SUMMARY | ~2019-02-24 | XMS | Encounter Summary ---
Demographics + + + | Address | [address] | | | [place] [address] | + + + | Home Phone [...] Providers + +------+ + | Care Technical Communication Teacher Name | Role | Phone | [...] 2012 | Event | [facility] | [address] | | | | | [facility] | [facility], | | | | | [facility] | [place] [address] | | | | | Desk Located on the | [phone] | | | | | 9th floor | | | | | | [place], [place] | | | | | | [address] | | | +--------+ + + + [...] | | 1 | Quick Note | collision technician reports having used 200mL irrigation. Suction [...]
--- OUTSIDE RECORDS SUMMARY | ~2019-02-24 | XMS | Encounter Summary ---
Demographics + + + | Address | [address] | | | [place] [address] | + + + | Home Phone [...] Organization | [facility] [...] Team Providers + +------+ + | Care Bottle Blower Name | Role | Phone | + +------+ + | Jason Read | PCP | | | MD | | | + +------+ + Encounter Details +--------+---------+ + + + | Date | Type | Department | Care Team | Description | +--------+---------+ + + + | 12/14/ | Office | [facility] | Jorje Rutledge | Prostate cancer | | 2019 | Visit | [address] | MD [address] | ([facility]) (Primary Dx); | | | | [place], [place] | [address] [facility] | Preventative health | | | | [address] | [place] [address] | care | | | | [phone] | [phone] | | | | | | | [...] (chronic obstructive pulmonary dis ease) ([facility]), Depression, Dermatophytosis tinea capitis, Diverticulosis (01/2015), Essential hypertension, Foot fracture (02/2012), Gastritis (01/2015), GI bleed (01/2015), Heart murmur, Heartburn, Hiatal hernia (01/2015), History of rectal bleeding, Hypoxia, Insomnia, Internal bleeding (2017), Iron deficiency anemia, Kidney stone (2004), Lumbar disc herniation, Migra marcelino, Mood disorder ([facility]) of unknown (axis III) etiology, Nocturnal hypoxia, Osteoarthritis, Peptic ulcer disease, Pneumonia (05/2012), Prostate cancer ([facility]) (2007), Pulmonary nodules, Seborrheic dermatitis of scalp, Shoulder fracture (02/2012), Supplemental oxygen dependent, S VT (supraventricular tachycardia) ([facility]) (01/2014), TIA (transient ischemic attack), [...] powder Take by mouth. Respiratory Therapy Supplies [facility] Please provide an O2 concentrator while Diego [...] 0.681 [facility] 11/25/17 7.17 [facility] 08/26/17 4.44 05/28/17 2.56 04/28/17 1.49 [...] This document was generated in part using Sand 9 voice recognition software. Although ever y effort is made to edit the content, airway controller errors may occur. Occasional wrong word or [...] | | | | | [place] [address] | | | | | | [phone] | | | | | | | [...] 1.001 - 1.030 | | | | [place], | | | | | | UA, [...]
--- OUTSIDE RECORDS SUMMARY | ~2019-02-24 | XMS | Encounter Summary ---
Demographics + + + | Address | [address] | | | [place] [address] | + + + | Home Phone [...] Organization | [facility] [...] Team Providers + +------+ + | Care Armored Service Technician Name | Role | Phone | [...] | | Abnormal | [place], | [address] | | | | | chest CT | Becca B, | [place], | | | | | Procedures | MD [address] | [place] [address] | | | | | CT Chest wo | [address] | Phone: | | | | | Contrast | [place], | [phone] | | | | | | [place] [address] | Fax: | | | | | | | [phone] | +--------+--------+ + + + + Reason for Visit +--------+ + | Reason | Comments | +--------+ + | Other | abnormal chest CT | +--------+ + Encounter Details +--------+---------+ + + + | Date | Type | Department | Care Team | Description | +--------+---------+ + + + | 10/27/ | Office | [facility] | Offenstein, | Abnormal chest CT | | 2012 | Visit | PULMONARY [address] | Becca Segura MD | (Primary Dx); COPD | | | | [address] [place], | | (chronic obstructive | | | | [place] [address] | | pulmonary disease) | | | | [phone] | | ([facility]); Nocturnal | | | | | | [...] MD [place]ina Noyola Pulmonary and Critical Care [facility] [address] [place], [address] [facility] Diego Lucas is [...] Pulmonary nodules Cataracts, bilateral Pneumonia 05/2012 hospitalized [facility] Shoulder fracture 02/2012 Foot fracture [...] home. No other animal exposures.Grew up in [place]. Then lived in [place]. Then move d to [place]. In the service lived in [place] and [...] get prior records from [facility] in [place], but they have sent us little information [...] made to ensure accuracy; however, inadvertent computerized ruby developer errors may be pre sent. documented in [...] | | | | | [place] [address] | | | | | | [phone] | | | | | | | [...] | 10/28/2013 | | | | | ([facility]) Nocturnal | | | | | | hypoxemia | | + + +--------+ + + documented as of this encounter Results CT Chest wo Contrast (01/26/2013 3:44 PM PST) + + | Specimen | + + | | + + + + + | Narrative | Performed At | + + + | [facility] | [facility] | | [address] | [place] | | [ rep ct street1+2] [ rep ct [facility] | | st zip] Signed | - IMAGING | | | | | Patient Name: DIEGO LUCAS Physician: | | | E. : 1935 Age: 77 Sex: M Unit #: [id number] | | | Exam Date: 01/26/13 Location: [facility] | | | Report #: [id number] Page: | | | %(RAD)RES..mtdd.print.filter("pg") of %(RAD) | | | RES..mtdd.print.filter("tpg") | | | | | | Accession Number: [id number] | | | CT CHEST WITHOUT CONTRAST [...] Transcribed Date/Time: | | | 01/26/2013 15:57 Hvac Manager: AndrewALTON | | | <<Signature on File>> | | | Froylan | | | Olivia Rodriguez MD01/26/131 <Electronically signed by Froylan Wall | | | Michael DONG> Froylan Rodriguez MD 01/26/13 1544 | | | Hvac Manager: [email or web address]/05/13 1557 | | | Becca Castro MD | | + + + + + + + + | Performing | Address | City/State/Zipcode | Phone Number | | Organization | | | | + + + + + | [facility] | [address] | [place] | [phone] | | [facility] | | [address] | | | - IMAGING | | [...]
--- OUTSIDE RECORDS SUMMARY | ~2019-02-24 | XMS | Encounter Summary ---
Demographics + + + | Address | [address] | | | [place] [address] | + + + | Home Phone [...] + | Organization | [facility] | | | and [place] [...] + +------+ + | Care Drier Tender Naphthalene Name | Role | Phone | + [...] + + | 03/02/ | Office | [facility] | Jorje Rutledge | Prostate cancer | | 2018 | Visit | [address] | MD [address] | ([facility]) (Primary Dx) | | | | [place], [place] | [facility] | | | | | [address] | [place] [address] | | | | | [phone] | [phone] | | | | | | | [...] bilateral; COPD (chronic obstructive pu lmonary disease) ([facility]); Depression; Diverticulosis (01/2015); Foot fracture (02/2012); Gastri tis (01/2015); GI bleed (01/2015); Heart murmur; Heartburn; Hiatal hernia (01/2015); History of rectal bleeding; Hypertension; Insomnia; Kidney stone (2004); Lumbar disc herniation; Mi graines; Mood disorder ([facility]) of unknown (axis III) etiology; Nocturnal hypoxia; Osteoarthrit is; Peptic ulcer disease; Pneumonia (05/2012); Prostate cancer ([facility]) (2007); Pulmonary nodule s; Shoulder fracture (02/2012); Supplemental oxygen dependent; SVT (supraventricular tachycar anushka) ([facility]) (01/2014); and TIA (transient ischemic [...] mouth Daily. 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 Occasional wrong- word or [...] | | | | | [place] [address] | | | | | | [phone] | | | | | | | | +--------+---------+ + + + + +------+--------+ + + | Name | Type | Priori | Associated Diagnoses | Order Schedule | | | | ty | | | + +------+--------+ + + | Basic Metabolic | Lab | Routin | Prostate cancer | Expected: | | Panel | | e | ([facility]) | 05/24/2017, Expires: | | | | | | 03/03/2018 | + +------+--------+ + + | PSA, Diagnostic | Lab | Routin | Prostate cancer | Expected: | | | | e | ([facility]) | 05/24/2017, Expires: | | [...] 1.001 - 1.030 | | | | [place], | | | | | | UA, [...]
--- OUTSIDE RECORDS SUMMARY | ~2019-02-24 | XMS | Encounter Summary ---
Demographics + + + | Address | [address] | | | [place] [address] | + + + | Home Phone [...] + | Organization | [facility] | | | and [...] Team Providers + +------+ + | Care Swedger Name | Role | Phone | + +------+ + PCP | Unavailable | + +------+ + Encounter Details +--------+ + + + + | Date | Type | Department | Care Team | Description | +--------+ + + + + | 07/20/ | Hospital | [facility] | | | | 2007 - | Encounter | MED CTR CANCER | | | | | | CENTER [address] | | | | 07/22/ | | [place] | | | | 2007 | | [address] | | | | | | [phone] | | | +--------+ + + + [...] | | | | | [place] [address] | | | | | | [phone] | | | | | | | | +--------+---------+ + + + documented as of this encounter Visit Diagnoses Not on filedocumented in this encounter"
--- OUTSIDE RECORDS SUMMARY | ~2019-02-24 | XMS | Encounter Summary ---
Demographics + + + | Address | [address] | | | [place] [address] | + + + | Home Phone [...] + | Organization | [facility] | | | and [place] [...] Providers + +------+ + | Care Director Music Name | Role | Phone | + [...] | | Abnormal | Offenstein, | [address] | | | | | chest CT | Becca Segura, | [place], | | | | | Procedures | [address] | [place] [address] | | | | | CT Chest wo | [address] | Phone: | | | | | Contrast | [place], | [phone] | | | | | | [place] [address] | Fax: | | | | | | | [phone] | +--------+--------+ + + + + Encounter Details +--------+ + + + + | Date | Type | Department | Care Team | Description | +--------+ + + + + | 10/27/ | Hospital | [facility] | Offenstein, | Abnormal chest CT | | 2012 | Encounter | MED CTR XRAY [address] | Becca Segura MD | | | | | [address] [place] | | | | | | [place] [address] | | | | | | [phone] | | | +--------+ + + + [...] | | | | | [place] [address] | | | | | | [phone] | | | | | | | [...] At | + + + | [facility] | [place] | | Department [address] [place] [address] | [facility] | | [ rep ct street1+2] [ rep ct [facility] | | st zip] Signed | - IMAGING | | | | | Patient Name: DIEGO LUCAS Physician: | | | MAGDA. : 1935 Age: 76 Sex: M Unit #: [id number] | | | Exam Date: 10/27/12 [place] [facility] | | | Report #: [id number] Page: | | | %(RAD)RES..mtdd.print.filter("pg") of %(RAD) | | | RES..mtdd.print.filter("tpg") | | | | | | Accession Number: [id number] | | | [id number] CHEST CT CLINICAL HISTORY: FOLLOWUP | | [...] | | | Transcribed Date/Time: 10/27/2012 16:01 Assistant Broker: | | | AndrewSSP <<Signature on File>> | | | Yosef | | | MD Jimmie10/27/122003 <Electronically signed by oYsef Samuel MD> | | | Yosef Samuel MD 10/27/12 1521 Assistant Broker: [email or web address]katrin | | | Dvvosimpverfj63/05/13 1601 Becca Castro MD | | | | | + + + + + + + + | Performing | Address | City/State/Zipcode | Phone Number | | Organization | | | | + + + + + | [facility] | [address] | [place] | [phone] | | [facility] | | [address] | | | - IMAGING | | | | + + + + + documented in this encounter Visit Diagnoses + + | Diagnosis | + + | Abnormal chest CT Nonspecific (abnormal) findings on radiological and other | | examination of other intrathoracic organs | + + documented in this encounter
--- OUTSIDE RECORDS SUMMARY | ~2019-02-24 | XMS | Encounter Summary ---
Demographics + + + | Address | [address] | | | [place] [address] | + + + | Home Phone [...] | Organization | [facility] | | [...] Team Providers + +------+ + | Care Water Treatment Plant Repairer Name | Role | Phone | + +------+ + | aPrviz Brar DO | PCP | | + +------+ + Encounter Details +--------+ + + + + | Date | Type | Department | Care Team | Description | +--------+ + + + + | 03/19/ | Hospital | [facility] | Jennifer Wilder, | | | 2015 | Encounter | HEART MED CTR | MD [address] | | | | | ELECTROPHYSIOLOGY | [place] [address] [place] | | | | | [address] | [address] | | | | | [place] | [phone] | | | | | [address] | | | | | | [phone] | | | +--------+ + + + [...] different fro m the original. DISCHARGE SUMMARY [facility] PATIENT NAME/: Diego Lucas, (1935) DATE OF [...] mg by mouth Daily. Respiratory Therapy Supplies [facility] Please provide an O2 concentrator while Diego [...] 30 minutes Thank you for allowing [facility] to be involved in the care of this patient. Please call with any questions . Patient Care Team: Parivz Brar as PCP - General (Family Medicine) Becca Castro MD as Physician (Pulmonary Disease) Noe Worley MD (Cardiology) Note reviewed, agree with above Jennifer Wilder MD [facility] documented in this e ncounter Discharge [...] dizziness Repeated vomiting You cannot be awakened 3176-6955 The aitainment. [address] [place] [address], [place] [id number]. All righ ts reserved. This information is [...] | | | | | [place] [address] | | | | | | [phone] | | | | | | | [...] mg/dL | [facility] | | | | [place] | | SACRED | | | | [facility], [address] | | HEART | | | | [place] [address] | | MEDICAL | | | | [...] SACRED | [address] | [place] [address] | | | HEART [facility] [...] | [facility] | | | Count | [place] | | SACRED | | | | [facility], [address] | | HEART | | | | [address], [place] [address] | | MEDICAL | | | | [...] + | [facility] [place] | [address] | [place] [address] | | | [facility] | | | | | [...] + + + | Glucose | 97Comment: [place] | 65 - 99 mg/dL | [facility] | | | | Diabetes Association | [...] | | | | | | [facility] | | | | | | [facility], [address] | | | | | | [address] [place] [address] | | | | + + + + + + + + | Specimen | + + | Blood specimen | | (specimen) | + + + + + + + | Performing | Address | City/State/Zipcode | Phone Number | | Organization | | | | + + + + + | [facility] [place] | [address] | [place] [address] | | | [facility] | | | | | LABORATORY | [...]
--- OUTSIDE RECORDS SUMMARY | ~2019-02-24 | XMS | Encounter Summary ---
Demographics + + + | Address | [address] | | | [place] [address] | + + + | Home Phone [...] | Organization | [facility] | [...] Team Providers + +------+ + | Care Glass Bulb Silverer Name | Role | Phone | + +------+ + | Parviz Brar DO | PCP | | + +------+ + Reason for Visit +--------+ + | Reason | Comments | +--------+ + | Other | nocturnal O2 in [place] | +--------+ + Encounter Details +--------+ + + + + | Date | Type | Department | Care Team | Description | +--------+ + + + + | 06/26/ | Telephone | [facility] | [place], | Other (nocturnal O2 | | 2013 | | PULMONARY [address] | Becca Segura MD | in [place]) | | | | [place], | | | | | | [place] [address] | | | | | | [phone] | | | +--------+ + + + [...] | | | | | | [place] [address] | | | | | | [phone] | | | | | | | | +--------+---------+ + + + documented as of this encounter Visit Diagnoses + + | Diagnosis | + + | Chronic airway obstruction, not elsewhere classified - Primary | + + | Hypoxemia | + + documented in this encounter"
--- OUTSIDE RECORDS SUMMARY | ~2019-02-24 | XMS | Encounter Summary ---
Demographics + + + | Address | [address] | | | [place] [address] | + + + | Home Phone [...] + | Organization | [facility] | [...] Team Providers + +------+ + | Care Copy Worker Name | Role | Phone | [...] + + | 10/13/ | Office | [facility] | Marc Odell | Gastrointestinal | | 2017 | Visit | GASTROENTEROLOGY | MD Noe [address] | hemorrhage, | | | | [address] [place] | [address] [place] | unspecified | | | | [address] [place], [place] | [place] [address] | gastrointestinal | | | | [address] | [phone] | hemorrhage type | | | | [phone] | | (Primary Dx) | +--------+---------+ + [...] He wa s going to remain in [place] [facility] signed by Maribell Cleary RN at [...] | | | | | [place] [address] | | | | | | [phone] | | | | | | | [...]
--- OUTSIDE RECORDS SUMMARY | ~2019-02-24 | XMS | Encounter Summary ---
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 If you go to [place], make sure you take the oxygen like before. June 11, 2014 Diego Lucas [address] [place] [address] Dear Diego: Thank you for enrolling in [employer]. Please follow the instructions below to view your [employer] online medical record. [employer] allows you to send secure messages to your doctor, view you r test results, renew your prescriptions, schedule appointments, and more. How Do I Sign Up? 1. In your Internet browser, go to [email or web address] 2. Click on the "Sign up with your activation code" button in the "New User?" box. This iza l take you to the New Member Sign Up page. 3. Enter your [employer] activation code exactly as it appears below. You will not need to use this code after you sign up. If you do not sign up before the expiration date, you must req uest a new code through your [place] participating clinic. [employer] Activation Code: [email or web address] Expires: 08/10/2014 14:54 4. Fill in the last four digits of your Social Security Number (xxxx) and Date of (mm /dd/yyyy) and click Next. 5. Create a [place] [employer] username. Your username cannot be changed, so think of one t hat is secure and easy to remember. 6. Create a [employer] password. You can change your password at any time. 7. Enter your security question and answer. This can be used at a later time if you forget your password. Click Next. 8. Enter your e-mail address. You will receive e-mail notification when new information is available in [employer]. 9. Click "Sign In". You may now view your medical record. Additional Information If you have questions, you can email or call [phone] to talk to our MyChart care team. [...] good. He underwent an SVT ablation at [facility] ce his last visit, which went well, and he has been doing well since that was done. He is currently on a regimen of Qvar 80 mcg 2 puffs twice daily (changed due to insurance r [employer]), and Atrovent 2 puffs 3-4 times daily. [...] hormonal treatment with Lupron; DR JULIAN IN [place] COPD (chronic obstructive pulmonary disease) (HCC) DR BILLY CASTRO Pneumonia 05/2012 hospitalized [facility] Heart murmur DR MARIAA OLIVERA [...] MD; Location: [facility] ELECTR[facility]HYSIOLOGY Social History: History Social History Marital [...] No other animal exposures. Grew up in [place]. Then lived in [place]. Then moved to [place]. In the service lived [facility] and [place]. No recent travel. [...] PO) Take by mouth. Respiratory Therapy Supplies [facility] Please provide an O2 concentrator while Diego [...] at 2L. He will likely travel to [facility] again in July, and we discussed renting a portable concentrator or arranging for oxyge n when he gets to [place]. Plan 1.Continue Flovent and Atrovent. 2.Use Ventolin if needed. 3.Continue to walk. 4. Use oxygen at night at 2L. Rent a portable concentrator or arrange for oxygen in [place] when he arrives. He was advised to call if new pulmonary symptoms were to develop. Return to clinic in 6 months, or sooner with concerns. CC: Parviz Brar Portions of this report were transcribed using voice recognition software. Every effort wa s made to ensure accuracy; however, inadvertent computerized fur remodeler errors may be pre sent. documented in [...] | | | | | [place] [address] | | | | | | [phone] | | | | | | | [...]
--- OUTSIDE RECORDS SUMMARY | ~2019-02-24 | XMS | Encounter Summary ---
Demographics + + + | Address | [address] | | | [place] [address] | + + + | Home Phone [...] | [facility] | | | and [...] Providers + +------+ + | Care Manager Action Name | Role | Phone | + [...] [place] | | | | | [address] | [place] [address] | | | | | [phone] | [phone] | | | | | | | [...] | | | | | [place] [address] | | | | | | [phone] | | | | | | | [...] + | REFERENCE LAB | [address] | [place] [address] | [phone] | | [facility] | | | | + + + + + | REFERENCE LAB | [address] | [place] [address] | [phone] | | [facility] | | | | [...] + + + | REFERENCE LAB | [address] | [place] [address] | [phone] | | [facility] | | | | + + + + + | REFERENCE LAB | [facility] | [place] [address] | [phone] | | [facility] | | | | + + + + + documented in this encounter Visit Diagnoses Not on filedocumented in this encounter"
--- OUTSIDE RECORDS SUMMARY | ~2019-02-24 | XMS | Encounter Summary ---
Demographics + + + | Address | [address] | | | [place] [address] | + + + | Home Phone [...] + | Organization | [facility] | [...] Providers + +------+ + | Care Game Programer Name | Role | Phone | + [...] | | ELECTROPHYSIOLOGY | [address] [place] | | | | | [address] | [address] | | | | | [place] | [phone] | | | | | [address] | | | | | | [phone] | | | +--------+---------+ + + + [...] different fro m the original. DISCHARGE SUMMARY [facility] PATIENT NAME/: Diego Lucas, (1935) [...] below. EKG shows sinus rhythm with normal AK interval and no preexcitation. MASTER PROBLEM LIST: [...] EKG: KG shows sinus rhythm with normal AK interval and no preexcitation. Selected Labs: Lab [...] mg by mouth Daily. Respiratory Therapy Supplies [facility] Please provide an O2 concentrator while Diego [...] 30 minutes Thank you for allowing [facility] to be involved in the care of this patient. Please call with any questions . Patient Care Team: Parviz Brar as PCP - General (Family Medicine) Becca Castro MD as Physician (Pulmonary Disease) Noe Worley MD (Cardiology) Note reviewed, agree with above Jennifer Wilder MD [facility] documented in this e ncounter Discharge [...] dizziness Repeated vomiting You cannot be awakened [phone] [employer]. [address] [place] [address], [place] [address]. All righ ts reserved. This information is [...] | | | | | [place] [address] | | | | | | [phone] | | | | | | | [...] | ALFREDITOE | | | | [place] | | SACRED | | | | [facility], [address] | | HEART | | | | [place] [address] | | MEDICAL | | | | [...] SACRED | [address] | [place] [address] | | | [facility] | | | | [...] | PROVIDENCE | | | Count | [place] | | SACRED | | | | [facility], [address] | | HEART | | | | [address] [place] [address] | | MEDICAL | | | | [...] + + | MELISSAKANCHAN EVANGELISTA | [address] | [place] [address] | | | HEART [facility] | | | | [...] + + + | Glucose | 97Comment: Gibraltarian | 65 - 99 mg/dL | [facility] | | | | Diabetes Association | [...] at | | | | | | [facility] | | | | | | [facility], [address] | | | | | | [address] [place] [address] | | | | + + + + + + + + | Specimen | + + | Blood specimen | | (specimen) | + + + + + + + | Performing | Address | City/State/Zipcode | Phone Number | | Organization | | | | + + + + + | [facility] [place] | [address] | [place] [address] | | | [facility] | | | | | LABORATORY [...]
--- OUTSIDE RECORDS SUMMARY | ~2019-02-24 | XMS | Encounter Summary ---
Demographics + + + | Address | [address] | | | [place] [address] | + + + | Home Phone [...] [facility] | | | and [...] Providers + +------+ + | Care Home Care Provider Name | Role | Phone | + [...] [address] | | | | | [place], [place] | [address] [facility] | | | | | [address] | [place] [address] | | | | | [phone] | [phone] | | | | | | | [...] | | | | | [place] [address] | | | | | | [phone] | | | | | | | | +--------+---------+ + + + documented as of this encounter Visit Diagnoses Not on filedocumented in this encounter"
--- OUTSIDE RECORDS SUMMARY | ~2019-02-24 | XMS | Encounter Summary ---
Demographics + + + | Address | [address] | | | [place] [address] | + + + | Home Phone [...] Organization | [facility] [...] Providers + +------+ + | Care Pediatric Rn Name | Role | Phone | + +------+ + PCP | Unavailable | + +------+ + Encounter Details +--------+ + + + + | Date | Type | Department | Care Team | Description | +--------+ + + + + | 08/03/ | Hospital | [facility] | | | | 2008 - | Encounter | MED CTR CANCER | | | | | | CENTER [address] | | | | 08/21/ | | [place] | | | | 2008 | | [address] | | | | | | [phone] | | | +--------+ + + + [...] | | | | | [place] [address] | | | | | | [phone] | | | | | | | | +--------+---------+ + + + documented as of this encounter Visit Diagnoses Not on filedocumented in this encounter"
--- OUTSIDE RECORDS SUMMARY | ~2019-02-24 | XMS | Encounter Summary ---
Demographics + + + | Address | [address] | | | [place] [address] | + + + | Home Phone [...] | Organization | 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 Stop the Qvar. Start on Breo 1 [...] tax they are trying to institute in [place]. Roberto Carlos michael did find out he [...] is [facility]. He reports good compliance. Past Medical History Past Medical History Diagnosis Date Peptic ulcer disease with upper GI bleed Benign prostatic hypertrophy Osteoarthritis Heartburn Pulmonary nodules Shoulder fracture 02/2012 Foot fracture 02/2012 SVT (supraventricular tachycardia) 01/[address] Wilder for ablation Depression Prostate cancer (HCC) 2007 s/p radiation treatment and on hormonal treatment with Lupron; DR JULIAN IN [place] COPD (chronic obstructive pulmonary disease) ([facility]) DR BILLY ARAUJO Pneumonia 05/2012 hospitalized [facility] Heart murmur [...] Surgeon: Jennifer Wilder MD; Location: [facility] ELECTROP[facility]OLOG[facility] Social History: History Social History [...] No other animal exposures. Grew up in [place]. Then lived in [place]. Then moved to [place]. In the service lived i [facility] and [place]. No recent travel. Allergies: Allergies Allergen Reactions [...] Take by mouth. Respiratory Therapy Supplies [facility] Please provide an O2 concentrator while Diego [...] made to ensure accuracy; however, inadvertent computerized barratte operator errors may be pre sent. documented [...] | | | | | [place] [address] | | | | | | [phone] | | | | | | | [...]
--- OUTSIDE RECORDS SUMMARY | ~2019-02-24 | XMS | Encounter Summary ---
Demographics + + + | Address | [address] | | | [place] [address] | + + + | Home Phone [...] Organization | [facility] | [...] Providers + +------+ + | Care Supervisor Vegetable Farming Name | Role | Phone | + +------+ + | Parviz Brar DO | PCP | | + +------+ + Encounter Details +--------+ + + + + | Date | Type | Department | Care Team | Description | +--------+ + + + + | 03/06/ | Hospital | [facility] | [place], | Pneumonia of left | | 2016 | Encounter | MED CTR XRAY [address] | Becca Segura MD | lower lobe due to | | | | [place] | | infectious organism | | | | [place] [address] | | | | | | [phone] | | | +--------+ + + + [...] | | | | | [place] [address] | | | | | | [phone] | | | | | | | [...] ST. | [address] | [place] | [phone] | | [facility] | | [address] | | | - IMAGING | | | | + + + + + documented in this encounter Visit Diagnoses + + | Diagnosis | + + | Pneumonia of left lower lobe due to infectious organism (HCC) | + + documented in this encounter"
--- OUTSIDE RECORDS SUMMARY | ~2019-02-24 | XMS | Encounter Summary ---
Demographics + + + | Address | [address] | | | [place] [address] | + + + | Home Phone [...] | Organization | [facility] | | [...] Team Providers + +------+ + | Care Private Secretary Name | Role | Phone | + [...] | | | | | | [place] [address] | | | | | | [phone] | | | +--------+--------+ + + + [...] | | | | | [place] [address] | | | | | | [phone] | | | | | | | | +--------+---------+ + + + documented as of this encounter Visit Diagnoses Not on filedocumented in this encounter"
--- OUTSIDE RECORDS SUMMARY | ~2019-02-24 | XMS | Encounter Summary ---
Demographics + + + | Address | [address] | | | [place] [address] | + + + | Home Phone [...] Organization | [facility] [...] Providers + +------+ + | Care Nuclear Weapons Custodian Name | Role | Phone | + [...] + + | 08/06/ | Refill | [facility] | Jorje Rutledge | Medication Refill | | 2017 | | [address] | MD [address] | | | | | [place], [place] | [address] [facility] | | | | | [address] | [place] [address] | | | | | [phone] | [phone] | | | | | | | [...] | | | | | [place] [address] | | | | | | [phone] | | | | | | | | +--------+---------+ + + + documented as of this encounter Visit Diagnoses Not on filedocumented in this encounter"
--- OUTSIDE RECORDS SUMMARY | ~2019-02-24 | XMS | Encounter Summary ---
Demographics + + + | Address | [address] | | | [place] [address] | + + + | Home Phone [...] | Organization | [facility] | [...] Team Providers + +------+ + | Care Driver License Technician Name | Role | Phone | [...] | | | | | | [place] [address] | | | | | | [phone] | | | +--------+ + + + [...] | | | | | [place] [address] | | | | | | [phone] | | | | | | | | +--------+---------+ + + + documented as of this encounter Visit Diagnoses Not on filedocumented in this encounter"
--- OUTSIDE RECORDS SUMMARY | ~2019-02-24 | XMS | Encounter Summary ---
Demographics + + + | Address | [address] | | | [place] [address] | + + + | Home Phone [...] Organization | [facility] [...] Providers + +------+ + | Care Sales And Service Officer Name | Role | Phone | + +------+ + PCP | Unavailable | + +------+ + Encounter Details +--------+ + + + + | Date | Type | Department | Care Team | Description | +--------+ + + + + | 07/17/ | Hospital | [facility] | [place], | | | 2011 | Encounter | MED CTR XRAY [address] | Becca Segura MD | | | | | [place] | | | | | | [place] [address] | | | | | | [phone] | | | +--------+ + + + [...] | | | | | [place] [address] | | | | | | [phone] | | | | | | | [...] | [facility] Diagnostic Imaging Department | [facility] | | [address] [facility] | [facility] | | CHEST CT WITHOUT CONTRAST, 17 [...] Transcribed | | | Date/Time: 09/09/2011 14:01 Pile Driving Supervisor: | | | <Electronically Signed by Krzysztof Jewell MD> 09/10/11 0719 | | + + + + + | Procedure Note | + + | Duke Albert Conversion - 03/31/2013 5:43 PM [facility] | | Diagnostic Imaging Department | | [address] [facility] | | | | | | [...] | Transcribed Date/Time: 09/09/2011 14:01 | | Pile Driving Supervisor: | | <Electronically Signed by Krzysztof Jewell [...]
--- OUTSIDE RECORDS SUMMARY | ~2019-02-24 | XMS | Encounter Summary ---
Demographics + + + | Address | [address] | | | [place] [address] | + + + | Home Phone | | + + + | Preferred Language | Unknown | + + + | Marital Status | | + + + | Hindu Affiliation | PRE | + + + | Race | White | + + + | Ethnic Group | Not or | + + + Author + + + | Author | [facility] | + + + | Organization | [facility] | + + + | Address | Unknown | + + + | Phone | Unavailable | + + + Support + + +---------+ + | Name | Relationship | Address | Phone | + + +---------+ + | Andrez Lucas | ECON | Unknown | Unavailable | + + +---------+ + Care Team Providers + +------+ + | Care Political Worker Name | Role | Phone | [...] OMI | | 2004 | | [address] [facility] | [phone] | | | | Transcribed | [place] | | | | | | [address] | | | +--------+ + + + [...] | Other, Faculty - 06/09/2004 10:38 AM [facility] | | ELECTROCARDIOGRAPHIC [id number] [place] [address] [id number]: | | Marc Stovall, TALIA AND TIME: [...] normal tracing in a | | thin-walledman.JOB #[id number]//[id number] | | Electronically Signed | | | | Rylee Tay, [facility],[place] [id number] DATE: | | | |ATRIAL RATE: 67 | |VENTRICULAR RATE: 67 | | | |KS INTERVAL: 184 QRS: 88 QTC: 406 QRS [...] |man. | | | | | |JOB #[id number] | |06/08/04 | |06/09/04 | |MWCresencio Electronically [...] | | | | |[place] | |[id number] | |[id number] | |ADMIT DATE: | + + documented in this encounter Visit Diagnoses Not on filedocumented in this encounter"
--- OUTSIDE RECORDS SUMMARY | ~2019-02-24 | XMS | Encounter Summary ---
Demographics + + + | Address | [address] | | | [place] [address] | + + + | Home Phone [...] + | Organization | [facility] | | | and [place] | + + + | Address | [...] Team Providers + +------+ + | Care Nurse Specialist Name | Role | Phone | [...] + + | 10/13/ | Office | [facility] | Marc Odell | Gastrointestinal | | 2017 | Visit | GASTROENTEROLOGY | MD Noe [address] | hemorrhage, | | | | [address] [place] | [address] [place] | unspecified | | | | [address] [place], [place] | [place] [address] | gastrointestinal | | | | [address] | [phone] | hemorrhage type | | | | [phone] | | (Primary Dx) | +--------+---------+ + [...] He wa s going to remain in [place] [facility] signed by Maribell Cleary RN at [...] | | | | | | [place] [address] | | | | | | [phone] | | | | | | | [...]
--- OUTSIDE RECORDS SUMMARY | ~2019-02-24 | XMS | Encounter Summary ---
Demographics + + + | Address | [address] | | | [place] [address] | + + + | Home Phone [...] | Organization | [facility] | [...] Providers + +------+ + | Care Business Development Assistant Name | Role | Phone | [...] MD | obstructive | | | | [place], | | pulmonary disease); | | | | [place] [address] | | Nocturnal hypoxemia | | | | [phone] | | due to emphysema | | [...] June 11, 2014 Diego Lucas [address] [place] [address] Dear Diego: Thank you for enrolling in [facility]. Please follow the instructions below to view your [employer] online medical record. [facility] allows you to send secure messages to your doctor, view you r test results, renew your prescriptions, schedule appointments, and more. How Do I Sign Up? 1. In your Internet browser, go to [email or web address] 2. Click on the "Sign up with your activation code" button in the "New User?" box. This iza l take you to the New Member Sign Up page. 3. Enter your At[facility]o activation code exactly as it appears below. You will not need to use this code after you sign up. If you do not sign up before the expiration date, you must req uest a new code through your [place] or [place] participating clinic. [facility] Activation Code: [email or web address] Expires: 08/10/2014 14:54 4. Fill in the last four digits of your Social Security Number (xxxx) and Date of (mm /dd/yyyy) and click Next. 5. Create a [place] [facility] username. Your username cannot be changed, so think of one t hat is secure and easy to remember. 6. Create a [facility] password. You can change your password at any time. 7. Enter your security question and answer. This can be used at a later time if you forget your password. Click Next. 8. Enter your e-mail address. You will receive e-mail notification when new information is available in [facility]. 9. Click "Sign In". You may now view your medical record. Additional Information If you have questions, you can email or call [phone] to talk to our MyChart care team. [...] good. He underwent an SVT ablation at [facility] ce his last visit, which went well, and he has been doing well since that was done. He is currently on a regimen of Qvar 80 mcg 2 puffs twice daily (changed due to insurance r easSUPR), and Atrovent 2 puffs 3-4 times daily. [...] He is currently on 2 LPM at [facility]. He reports good compliance. He does [...] hormonal treatment with Lupron; DR JULIAN IN [place] COPD (chronic obstructive pulmonary disease) (HCC) DR BILLY CASTRO Pneumonia 05/2012 hospitalized [facility] Heart murmur DR MARIAA OLIVERA Cataracts, [...] Laterality: N/A; Surgeon: Jennifer Wilder MD; Location: [facility] ELECTROPHYSIOLOGY Social History: History Social [...] No other animal exposures. Grew up in [place]. Then lived in [place]. Then moved to [place]. In the service lived [facility] and [place]. No recent travel. Allergies: Allergies [...] PO) Take by mouth. Respiratory Therapy Supplies [facility] [...] at 2L. He will likely travel to [facility] again in July, and we discussed renting [...] made to ensure accuracy; however, inadvertent computerized oil and gas principal errors may be pre sent. documented in [...] | | | | | [place] [id number] | | | | | | [phone] | | | | | | | [...]
--- OUTSIDE RECORDS SUMMARY | ~2019-02-24 | XMS | Encounter Summary ---
Demographics + + + | Address | [address] | | | [place] [address] | + + + | Home Phone [...] | [facility] | [...] Team Providers + +------+ + | Care Epic Specialist Name | Role | Phone | + +------+ + | Parviz Brar DO | PCP | | + +------+ + Encounter Details +--------+ + + + + | Date | Type | Department | Care Team | Description | +--------+ + + + + | 06/16/ | Hospital | [facility] GENERIC IP | Conversion | Pain | | 2017 | Encounter | CONVERSION [address] | Transaction, | | | | | [address] | Provider Unknown | | | | | [place], [place] | [phone] | | | | | [address] | | | | | | [phone] | | | +--------+ + + + [...] | | | | | [place] [address] | | | | | | [phone] | | | | | | | [...]
--- OUTSIDE RECORDS SUMMARY | ~2019-02-24 | XMS | Clinical Summary ---
Demographics + + + | Address | [address] | | | [place] [address] | + + + | Home Phone | | + + + | Preferred Language | Unknown | + + + | Marital Status | | + + + | Alevism Affiliation | PRE | + + + [...] Providers + +------+ + | Care Operations Intern Name | Role | Phone | + +------+ + | Parviz Brar DO | PCP | | + +------+ + Source Comments VERENA is fully live on both [facility]ulatory and [facility] InPatient.Formerly [facility], [facility] & [facility] Allergies + + + + + [...] | 3/20 | | e | | Skippers | every six hours as | | [...] 3/20 | | e | | Aerosol, Skippers | while awake. | | | 13 [...] | | | | | | | [address] | | + +--------+ +--------+ + +--------+ [...] | | al/Fam | | 1936 | [phone] | [place] [address] | | | leslie | | | [...]
--- OUTSIDE RECORDS SUMMARY | ~2019-02-24 | XMS | Encounter Summary ---
Demographics + + + | Address | [address] | | | [place] [address] | + + + | Home Phone | | + + + | Preferred Language | Unknown | + + + | Marital Status | | + + + | Episcopalian Affiliation | PRE | + + + | Race | White | + + + | Ethnic Group | Not or | + + + Author + + + | Author | [facility] | + + + | Organization | [facility] | + + + | Address | Unknown | + + + | Phone | Unavailable | + + + Support + + +---------+ + | Name | Relationship | Address | Phone | + + +---------+ + | Andrez Lucas | ECON | Unknown | Unavailable | + + +---------+ + Care Team Providers + +------+ + | Care Transitional Nurse Name | Role | Phone | [...] | | | [address] | [facility] [address] | | | | | | [address] | [place] | | | | | | Nikita [facility] | [place], [place] | | | | | | [facility] | [address] | | | | | | [place], [place] | Phone: | | | | | | [address] | [phone] | | | | | | Phone: | Fax: | | | | | | [phone] | [phone] | +--------+--------+ + + + + Encounter Details +--------+---------+ + + + | Date | Type | Department | Care Team | Description | +--------+---------+ + + + | 07/04/ | Office | Otolaryngology | Desiree Easton, | Epistaxis (Primary | | 2012 | Visit | Laryngology Services | MD | Dx) | | | | at [facility] [address] | | | | | | [place], | | | | | | [place] [address] | | | | | | [phone] | | | +--------+---------+ + + + [...] 07/04/2012 9:54 AM PDTThank you for choosing [facility] Department of Otolaryngology for your health care needs. If you need to speak to an ENT physician after normal business hours, please call [phone] and ask to have the ENT phys davey national expansion recruiter paged. documented in this encounter Progress Notes Desiree Easton MD - 07/04/2012 10:08 AM PDTFormatting of this note might be different fr the original. PATIENT NAME: Diego Lucas [facility] MR#: [id number] : 1935 REFERRING PROVIDER: No Referring Provider Per Patient NO REFERRING PROVIDER PER PT PRIMARY CARE PROVIDER: Parviz Brar DO CLINIC: [facility] REASON FOR FOLLOW-UP: Chief Complaint Patient presents with Follow-up visit Nose bleed HPI: Diego Lucas is a 76 y.o. male who presents to the [facility] [...] post-operative visit. He has been using his Isabela Spr ay as directed. He has had no further issues with bleeding. He was about to be released fr om the intermediate, but was held for some additional cardiac testing. [facility] [place] [facility]. PMHx: Past Medical History Diagnosis Date [...] severe pain. oxymetazoline 0.05 % Nasal Aerosol, Ware Instill 2 Sprays into each nostril every six hours as needed (Epistaxis). Use for only 3 days. polyethylene glycol 17 gram/dose Oral Powder Take 17 g by mouth once daily. sodium chloride 0.65 % Nasal Aerosol, Ware Instill 2 Sprays in nose every two [...] have recommended that he continue to use Isabela Ware 2-3 times daily. He may resume his usual physical activities at this time. 2. Follow up as needed. DESIREE EASTON MD documented in this e ncounter Plan of Treatment Not on filedocumented as of this encounter Visit Diagnoses + + | Diagnosis | + + | Epistaxis - Primary | + + documented in this encounter"
--- OUTSIDE RECORDS SUMMARY | ~2019-02-24 | XMS | Encounter Summary ---
Demographics + + + | Address | [address] | | | [place] [address] | + + + | Home Phone [...] + | Organization | [facility] | [...] Providers + +------+ + | Care Assistant Branch Operations Manager Name | Role | [...] Segura MD | | | | | [place], | | | | | | [place] [address] | | | | | | [phone] | | | +--------+ + + + [...] | | | | | [place] [address] | | | | | | [phone] | | | | | | | | +--------+---------+ + + + documented as of this encounter Visit Diagnoses Not on filedocumented in this encounter"
--- OUTSIDE RECORDS SUMMARY | ~2019-02-24 | XMS | Encounter Summary ---
Demographics + + + | Address | [address] | | | [place] [address] | + + + | Home Phone [...] Organization | [facility] [...] + +------+ + | Care Director Of The Biophysics Facility Name | Role | Phone | + +------+ + | Parviz Brar DO | PCP | | + +------+ + Encounter Details +--------+ + + + + | Date | Type | Department | Care Team | Description | +--------+ + + + + | 06/16/ | Hospital | [facility] GENERIC IP | Conversion | Pain | | 2017 | Encounter | CONVERSION [address] | Transaction, | | | | | [address] | Provider Unknown | | | | | [place], [place] | [phone] | | | | | [address] | | | | | | [phone] | | | +--------+ + + + [...] | | | | | [place] [address] | | | | | | [phone] | | | | | | | [...]
--- OUTSIDE RECORDS SUMMARY | ~2019-02-24 | XMS | Encounter Summary ---
Demographics + + + | Address | [address] | | | [place] [address] | + + + | Home Phone [...] + | Organization | [facility] | [...] Team Providers + +------+ + | Care Shirt Turner Name | Role | Phone | + [...] | unspecified | [place], [place] | [place] [address] | | | | | gastrointest | [address] | Phone: | | | | | inal | Phone: | [phone] | | | | | hemorrhage | [phone] | Fax: | | | | | type | Fax: | [phone] | | | | | Procedures | [phone] | | | | | | [place] [...] | | | | | gastrointest | [address] | [address] | | | | | inal | Phone: | Phone: | | | | | hemorrhage | [phone] | [phone] | | | | | type | Fax: | Fax: | | | | | Procedures | [phone] | [phone] | | | | | CT | [...] | DO [address] | [address], | | | | | inal | [address] [place] | [address] | | | | | hemorrhage, | [place], [place] | [place], | | | | | unspecified | [address] | [place] [address] | | | | | Procedures | Phone: | Phone: | | | | | Office | [phone] | [phone] | | | | | Visit | Fax: | Fax: | | | | | | [phone] | [phone] | +--------+--------+ + + + + Encounter Details +--------+---------+ + + + | Date | Type | Department | Care Team | Description | +--------+---------+ + + + | 04/21/ | Office | [facility] | Marc Odell | Gastrointestinal | | 2018 | Visit | GASTROENTEROLOGY | MD Noe [address] | hemorrhage, | | | | [address] [place] | [place] | unspecified | | | | [address] [place] | [place] [address] | gastrointestinal | | | | [address] | [phone] | hemorrhage type | | | | [phone] | | (Primary Dx); | | | [...] Office Visit: 04/22/17 Referring Provider: Parviz Brar [address] [place] [address] [place] [address] Providing Physician: Marc Odell MD. Chief Complaint: Other (gastrointestinal hemorrage) History of Present Illness Diego Lucas is a 81 y.o. male with a history of prostate cancer, CAD, COPD, and recur rent GI hemorrhage who presents for further evaluation of his recurrent GI bleeds. His most recent bleed was in February 2017, for which he was hospitalized at [facility]. Roberto Carlos rodriguez had developed painless [...] September, when he wasn't having melena. [facility]. He had [facility] [...] with upper GI bleed Pneumonia 05/2012 hospitalized [facility] Prostate cancer (HCC) 2007 s/p radiation [...] Laterality: N/A; Surgeon: Jennifer Wilder MD; Location: [facility] ELECTROPHYSIOLOGY ANGIOGRAM EARLY 1979 FOR TIA HISTORY APPENDECTOMY CATARACT REMOVAL 03/2013 Left CATARACT REMOVAL WITH IMPLANT 11/2011 Right Catheter ablation [place] COLONOSCOPY 2016 [facility]. Arellano COLONOSCOPY 03/18/2017 Postoperative Diagnosis: [...] No other animal exposures. Grew up in [place]. Then lived in [place]. Then moved to [place]. In the service lived [facility] and [place]. No recent travel. Allergies Allergies Allergen Reactions Ipratropium Pompeys Pillar Hfa Other (See Comments) Reaction: Cough Penicillins [...] bowel lesion, this can be done in [place] -if this is negative, then I would [...] or fail to improve. CC: Parviz Brar [address] [facility] [place] [address] [place] [address] Portions of this chart may have been created with Mez[employer] voice recognition software. Occasi onal wrong-word or [...] | | | | | [place] [address] | | | | | | [phone] | | | | | | | [...]
--- OUTSIDE RECORDS SUMMARY | ~2019-02-24 | XMS | Encounter Summary ---
Demographics + + + | Address | [address] | | | [place] [address] | + + + | Home Phone [...] Team Providers + +------+ + | Care Research Assistant Professor Name | Role | Phone | [...] HERNANDEZ Garces | | | | | [place] [address] | | | | | [address] | [place], [place] | | | | | Mailcode: [id number] | [address] | | | | | [facility] | [phone] | | | | | [place], [place] | | | | | | [address] | | | | | | [phone] | | | +--------+ + + + [...]
--- OUTSIDE RECORDS SUMMARY | ~2019-02-24 | XMS | Encounter Summary ---
Demographics + + + | Address | [address] | | | [place] [address] | + + + | Home Phone [...] | Organization | [facility] | | | and [...] Team Providers + +------+ + | Care Healthcare Economics Manager Name | Role | Phone | [...] MD | Qvar) | | | | [place], | | | | | | [place] [address] | | | | | | [phone] | | | +--------+ + + + [...] | | | | | [place] [address] | | | | | | [phone] | | | | | | | | +--------+---------+ + + + documented as of this encounter Visit Diagnoses Not on filedocumented in this encounter"
--- OUTSIDE RECORDS SUMMARY | ~2019-02-24 | XMS | Encounter Summary ---
Demographics + + + | Address | [address] | | | [place] [address] | + + + | Home Phone [...] | Organization | [facility] | | [...] Providers + +------+ + | Care Customer Operations Intern Name | Role | Phone [...] Segura MD | | | | | [place], | | | | | | [place] [address] | | | | | | [phone] | | | +--------+ + + + [...] | | | | | [place] [address] | | | | | | [phone] | | | | | | | | +--------+---------+ + + + documented as of this encounter Visit Diagnoses Not on filedocumented in this encounter"
--- OUTSIDE RECORDS SUMMARY | ~2019-02-24 | XMS | Encounter Summary ---
Demographics + + + | Address | [address] | | | [place] [address] | + + + | Home Phone [...] | Organization | [facility] [...] Providers + +------+ + | Care Marine Engine Driver Name | Role | Phone | + +------+ + PCP | Unavailable | + +------+ + Encounter Details +--------+ + + + + | Date | Type | Department | Care Team | Description | +--------+ + + + + | 08/30/ | Hospital | [facility] | [place], | | | 2010 | Encounter | MED CTR GENERIC OP | Becca Segura MD | | | | | CONV DEPT [address] | | | | | | [place], | | | | | | [place] [address] | | | | | | [phone] | | | +--------+ + + + [...] | | | | | [place] [address] | | | | | | [phone] | | | | | | | | +--------+---------+ + + + documented as of this encounter Visit Diagnoses Not on filedocumented in this encounter"
--- OUTSIDE RECORDS SUMMARY | ~2019-02-24 | XMS | Encounter Summary ---
Demographics + + + | Address | [address] | | | [place] [address] | + + + | Home Phone | | + + + | Preferred Language | Unknown | + + + | Marital Status | | + + + | Anabaptist Affiliation | PRE | + + + | Race | White | + + + | Ethnic Group | Not or | + + + Author + + + | Author | [facility] | + + + | Organization | [facility] | + + + | Address | Unknown | + + + | Phone | Unavailable | + + + Support + + +---------+ + | Name | Relationship | Address | Phone | + + +---------+ + | Andrez Lucas | ECON | Unknown | Unavailable | + + +---------+ + Care Team Providers + +------+ + | Care Bag Washer Name | Role | Phone | [...] + + | 06/09/ | Hospital | [facility] [address] | [place], | | | 2013 - | Encounter | [facility] Mailcode: | MD Gabrielle Garces | | | | | [id number] | [address] | | | 06/14/ | | [place], | [place], [place] | | | 2012 | | [place] [address] | [address] | | | | | [phone] | [phone] | | | | | | | | | | | | Fredrick Cherry, | | | | | | MD Gabrielle Garces | | | | | | [address] | | | | | | [place], [place] | | | | | | [address] | | | | | | [phone] | | | | | | | [...] medications Details oxymetazoline 0.05 % Nasal Aerosol, [place] Instill 2 Sprays into each nostril every six hour s as needed (Epistaxis). Use for only 3 days. sodium chloride 0.65 % Nasal Aerosol, [place] Instill 2 Sprays in nose every two [...] concerning symptoms, call Dr. Cherry's clinic at [phone]. If you fee l you are having [...] for packing removal at 2:30 pm. [facility] [phone] for questions. Destination: Destination: Longterm Facility Condition on Discharge Good Vitals on [...] | | | 13 | | | [place] | every six hours as | | [...] | | 13 | | | Aerosol, [place] | while awake. | | | | [...] 10:44 AM PDT PATIENT NAME: Diego Lucas [facility] MR#: [id number] : 1935 PRIMARY CARE PROVIDER: Parviz Brar, [...] though he uses supplemental oxygen at his longterm [facility]. ASSESSMENT: Mr. Lucas remains hospitalized for epistaxis [...] pack removal on Wednesday. Fredrick Cherry M.D. Edging Machine Setter Laryngology and Head & Neck Surgery [facility] DEPARTMENT: ENT LARYNGOLOGY PPV - [id number] Place of Service: [id number] - Date of Service: 06/14/2012 CSN: [id number] Suggested Modifiers: GC - Resident Involved Suggested Level of Care: 68793 - Discharge Day mgmt up to 30 min Fredrick Villasenor MD - 06/13/2012 11:21 PM PDT PATIENT NAME: Diego Lucas [facility] MR#: [id number] : 1935 PRIMARY CARE PROVIDER: Parviz Brar, [...] if still not bleeding. Fredrick Cherry M.D. Edging Machine Setter Laryngology and Head & Neck Surgery [facility] DEPARTMENT: ENT LARYNGOLOGY PPV - [id number] Place of Service: [id number] - Date of Service: 06/13/2012 CSN: [id number] Suggested Modifiers: GC - Resident Involved Suggested Level of Care: 83888 - Subsequent, Prob Foc/low complex 15 min Rush Mahmood MD - 06/13/2012 12:16 PM PDT [facility] Department of Surgery ENT Head & Neck [...] MD PGY-1, Plastic and Reconstructive Surgery pgr [phone] Diagnoses: 784.7 Epistaxis 731791 Anemia Meds: amLODIPine (aka NORVASC) tablet 5 [...] (aka AFRIN) 0.05 % nasal spray 2 [place], 2 [place], both nostrils, Q6H polyethylene glycol (aka MIRALAX) powder 17 g, 17 g, Oral, DAILY promethazine (aka PHENERGAN) injection 12.5 mg, 12.5 mg, Intravenous, Q6H PRN sodium chloride (aka OCEAN) 0.65 % nasal spray 2 [place], 2 [place], Nasal, Q2H [place] tamsulosin (aka FLOMAX) capsule 0.4 mg, 0.4 mg, Oral, QPM temazepam (aka RESTORIL) capsule 15 mg, 15 mg, Oral, HS PRN Fredrick Villasenor MD - 06/12/2012 9:17 PM PDT PATIENT NAME: Diego Lucas [facility] MR#: [id number] : 1935 PRIMARY CARE PROVIDER: Parviz Brar [...] equal. Vision is grossly intact on the al ght. There is no red desaturation. The [...] Observe for resumed bleeding. Fredrick Cherry M.D. Edging Machine Setter Laryngology and Head & Neck Surgery [facility] DEPARTMENT: ENT LARYNGOLOGY [facility] - [id number] Place of Service: [id number] - Date of Service: 06/12/2012 CSN: [id number] Suggested Modifiers: GC - Resident Involved Suggested Level of Care: 33478 - Subsequent, Prob Foc/low complex 15 min [...] (aka AFRIN) 0.05 % nasal spray 2 [place], 2 [place], both nostrils, Q6H, Oc Cochran MD, 2 [place] at 06/11/12 0218 polyethylene glycol (aka MIRALAX) powder 17 g, 17 g, Oral, DAILY, Oc Cochran MD, 17 g at 06/10/12 0837 promethazine (aka PHENERGAN) injection 12.5 mg, 12.5 mg, Intravenous, Q6H PRN, Oc Cochran MD, 12.5 mg at 06/10/12 2210 sodium chloride (aka OCEAN) 0.65 % nasal spray 2 [place], 2 [place], Nasal, Q2H [place], Mckenzie Myers MD, 2 [place] at 06/12/12 0127 tamsulosin (aka FLOMAX) capsule [...] and Neck Progress Note Hospital Day:2 Author; ADRIUS BARRIGA MD Attending Physician: Fredrick Cherry MD [...] Oc Cochran MD, 250 mg at 06/10/12 3873 ceFAZolin (aka ANCEF) IV 1 g, 1 [...] (aka AFRIN) 0.05 % nasal spray 2 [place], 2 [place], both nostrils, Q6H, Oc Cochran MD, 2 [place] at 06/11/12 0218 polyethylene glycol (aka MIRALAX) powder 17 g, 17 g, Oral, DAILY, Oc Cochran MD, 17 g at 06/10/12 0837 promethazine (aka PHENERGAN) injection 12.5 mg, 12.5 mg, Intravenous, Q6H PRN, Oc Cochran MD, 12.5 mg at 06/10/12 2210 sodium chloride (aka OCEAN) 0.65 % nasal spray 2 [place], 2 [place], Nasal, Q2H [place], Mckenzie Myers MD, 2 [place] at 06/10/12 2234 tamsulosin (aka FLOMAX) capsule [...] (aka AFRIN) 0.05 % nasal spray 2 [place], 2 [place], both nostrils, Q6H, Oc Cochran MD, 2 [place] at 06/10/12214 polyethylene glycol (aka MIRALAX) powder [...] Otolaryngology Head and Neck Surgery PGY2 pager [phone] documented in this enco unter Plan of [...] | | | een | | | [id number] | | | | | | 3 [...] view image for the detailed interpretation from [employer] results. | CARDIOLOGY | + + + + + + + + | Performing | Address | City/State/Zipcode | Phone Number | | Organization | | | | + + + + + | [facility] | [address] | [place], [place] | | | CARDIOLOGY | [address] | [address] | | + + + + + [...] [facility] | [address] | [place] [address] | | | SERVICES, RAFAEL | [address]ER [...] | | | LABORATORY | | | ANGOLAN | | | SERVICES, | | | [...] | + + + + + | [facility] | [address] | [place] [address] | | | SERVICES, CORE | PARK [...] | + + + + + | [facility] | [address] | [place] [address] | | | SERVICES, CORE | [address] [...] | + + + + + | [facility] | [address] | [place] [address] | | | SERVICES, [facility] | [address] | | | + + + + + OPERATION RECORD (06/13/2012 3:45 PM PDT) + + | Transcriptions | + + | Janeth Casiano MD - 06/12/2012 11:40 PM PDT Date: | | 06/11/2012ttending Surgeon: Fredrick Cherry M.D.Supply Teacher(s): | | Janeth Casiano M.D. | | [...] | irrigation.Anesthesia:General.Blood Loss:25 cc.Complications:None | | apparent.Specimens:None.Drains:Quarter-inch [place] in right medial orbital | | incision.Indications:Mr. [...] Caballero | | Lydia Casiano M.D.LALA / [id number] / [id number] / [id number] / T: | | 06/12/2012 | |superior [...] a small gauze was placed over the [place] | |drain in the right medial Jimenez [...] | | | |JGL / HS | |[id number] / [id number] / [id number] / | | | | | + [...] [facility] | [address] | [place] [address] | | | SERVICES, CORE | PARK [...] | + + + + + | [facility] | [address] | [place] [address] | | | SERVICES, CORE | PARK [...] + + + + + | [facility] | [address] | [place] [address] | | | NAYELI, RAFAEL | [address] [...] | 287.5 | 275 - 295 | [facility] - | | | VENOUS, POC | | mmol/kg | KRIS | | | | | | SOPHIA GUERRERO | | | | | | OF CARE | | | | | | TESTS | | + + + + + + | PH VENOUS, | 7.37 | 7.35 - 7.45 | [facility] - | | | POC | | [...] [facility] | [address] | [place], [place] | | | SOPHIA GUERRERO OF CARE | [facility] | [address] | | | TESTS | | | [...] - KRIS | [address] | [place], [place] | | | SOPHIA GUERRERO OF [facility] | [address] | [address] | | | TESTS | | | [...] + + + + | PRODUCT | [id number] | | [facility] | | | UNIT [...] + + + + | BLOOD | 60858 | | [facility] | | | PRODUCT [...] | + + + + + | [facility] | [address] | [place] [address] | | | PATHOLOGY | [address] [...] + + + + | PRODUCT | [id number] | | [facility] | | | UNIT [...] + + + + | BLOOD | 17737 | | [facility] | | | PRODUCT [...] [facility] | [address] | [place] [address] | | | PATHOLOGY | [address] [...] view image for the detailed interpretation from [employer] results. | CARDIOLOGY | + + + + + + + + | Performing | Address | City/State/Zipcode | Phone Number | | Organization | | | | + + + + + | [facility] | [address] | [place], [place] | | | CARDIOLOGY | [address] | [address] | | + + + + + [...] [facility] | [address] | [place] [address] | | | SERVICES, CORE | PARK [...] | + + + + + | [facility] | [address] | [place] [address] | | | SERVICES, CORE | PARK [...] + + + + + | [facility] | [address] | [place] [address] | | | SERVICES, CORE | PARK [...] + + + + | PRODUCT | [id number] | | [facility] | | | UNIT [...] + + + + | BLOOD | 83866 | | [facility] | | | PRODUCT [...] DEPARTMENT OF | [address] | [place] [address] | | | PATHOLOGY | [address] [...] + + + + | PRODUCT | [id number] | | [facility] | | | UNIT [...] + + + + | BLOOD | 97976 | | [facility] | | | PRODUCT [...] | + + + + + | [facility] | [address] | [place] [address] | | | PATHOLOGY | [address] [...] + + + + | PRODUCT | [id number] | | [facility] | | | UNIT [...] + + + + | BLOOD | 90460 | | [facility] | | | PRODUCT [...] + + + + + | [facility] | [address] | [place] [address] | | | PATHOLOGY | [address] [...] + + + + + | [facility] | [address] | [place] [address] | | | SERVICES, CORE | [address]EC[address] [...] | | | LABORATORY | | | ANGOLAN | | | SERVICES, | | | [...] the MDRD equation recommended by the | [facility] | | National Kidney Disease Education Program. [...] + + + + + | [facility] | [address] | [place] [address] | | | SERVICES, CORE | PARK [...] | + + + + + | [facility] | [address] | [place] [address] | | | SERVICES, CORE | PARK [...] | + + + + + | [facility] | [address] | [place] [address] | | | SERVICES, CORE | PARK [...] | | | | | | M.D. RUBBER MOLDER SURGEONS: | | | | | | [...] | | | | | Bentson wire,a 6-Trinidadian | | | | | | short sheath was | | | | | | placed. Through the | | | | | | 6-Trinidadian shortsheath, a | | | | | | 6-Trinidadian Envoy was | | | | | [...] | + + + + + | [facility] | [address] | [place] [address] | | | SERVICES, | [address] [...] [facility] | [address] | [place] [address] | | | SERVICES, | [address] [...] [facility] | [address] | [place] [address] | | | SERVICES, CORE | PARK [...] PONCE | [address] | [place], [place] | | | HOLLY GUERRERO | [address] | [address] | | | TESTS | | | [...] PDT | | | | | Until [place] 06/12/12 at 1015 | | | | [...] | | | % nasal spray 2 [place] 2 spray, | | 13 9:01 | [...] | | 0.65 % nasal spray 2 [place] 2 | | 13 2:17 | | [...]
--- OUTSIDE RECORDS SUMMARY | ~2019-02-24 | XMS | Encounter Summary ---
Demographics + + + | Address | [address] | | | [place] [address] | + + + | Home Phone [...] Organization | [facility] | [...] Team Providers + +------+ + | Care Activity Therapist Name | Role | Phone | [...] Segura MD | | | | | [place], | | | | | | [place] [address] | | | | | | [phone] | | | +--------+ + + + [...] | | | | | [place] [address] | | | | | | [phone] | | | | | | | | +--------+---------+ + + + documented as of this encounter Visit Diagnoses Not on filedocumented in this encounter"
--- OUTSIDE RECORDS SUMMARY | ~2019-02-24 | XMS | Encounter Summary ---
Demographics + + + | Address | [address] | | | [place] [address] | + + + | Home Phone [...] Organization | [facility] | | | [...] Team Providers + +------+ + | Care Print And Pattern Designer Name | Role | Phone | [...] | | [place] | [address] [place] | | | | | [address] | [place] [address] | | | | | [phone] | [phone] | | | | | | | [...] | | | | | [place] [address] | | | | | | [phone] | | | | | | | [...] Agency Comment | + + | [facility] | + + + +---------+ + + | Performing | Address | City/State/Zipcode | Phone Number | | Organization | | | | + +---------+ + + | EXTERNAL LAB | | | | + +---------+ + + documented in this encounter Visit Diagnoses Not on filedocumented in this encounter"
--- OUTSIDE RECORDS SUMMARY | ~2019-02-24 | XMS | Clinical Summary ---
Demographics + + + | Address | [address] | | | [place] [address] | + + + | Home Phone [...] Providers + +------+ + | Care Operations Manager Name | Role | Phone | + +------+ + | Parviz Brar DO | PCP | | + +------+ + Source Comments [facility] is fully live on both [facility] and [facility] Allergies + + + + [...] | 3/20 | | e | | [place] | every six hours as | | [...] 3/20 | | e | | Aerosol, [place] | while awake. | | | 13 [...] | | | | | | | [address] | | + +--------+ +--------+ + +--------+ [...] | | al/Fam | | 1936 | [phone] | [place] [address] | | | leslie | | | [...]
--- OUTSIDE RECORDS SUMMARY | ~2019-02-24 | XMS | Encounter Summary ---
Demographics + + + | Address | [address] | | | [place] [address] | + + + | Home Phone [...] | Organization | [facility] [...] Team Providers + +------+ + | Care Instructor Traffic Safety Name | Role | Phone | + [...] + + | 11/29/ | Telephone | [facility] | Jorje Rutledge | Medication Prior | | 2018 | | [address] | MD [address] | Authorization | | | | [place], [place] | [address] [facility] | (Megestrol ) | | | | [address] | [place] [address] | | | | | [phone] | [phone] | | | | | | | [...] | | | | | [place] [address] | | | | | | [phone] | | | | | | | | +--------+---------+ + + + documented as of this encounter Visit Diagnoses Not on filedocumented in this encounter"
--- OUTSIDE RECORDS SUMMARY | ~2019-02-24 | XMS | Encounter Summary ---
Demographics + + + | Address | [address] | | | [place] [address] | + + + | Home Phone [...] | Organization | [facility] | | | and [...] Team Providers + +------+ + | Care Cryptoanalysis Teacher Name | Role | Phone | + +------+ + | Parviz Brar DO | PCP | | + +------+ + Encounter Details +--------+ + + + + | Date | Type | Department | Care Team | Description | +--------+ + + + + | 06/16/ | Hospital | [facility] | Conversion | Pain | | 2017 | Encounter | CONVERSION [address] | Transaction, | | | | | [address] | Provider Unknown | | | | | [place], [place] | [phone] | | | | | [address] | | | | | | [phone] | | | +--------+ + + + [...] | | | | | [place] [address] | | | | | | [phone] | | | | | | | [...]
--- OUTSIDE RECORDS SUMMARY | ~2019-02-24 | XMS | Encounter Summary ---
Demographics + + + | Address | [address] | | | [place] [address] | + + + | Home Phone [...] Organization | [facility] | [...] Team Providers + +------+ + | Care Transcribing Machine Mechanic Name | Role | Phone | [...] RN | obstructive | | | | [place], | | pulmonary disease) | | | | [place] [address] | | ([facility]); Nocturnal | | | | [phone] | | hypoxemia | +--------+ + + [...] | | | | | | [place] [address] | | | | | | [phone] | | | | | | | | +--------+---------+ + + + documented as of this encounter Visit Diagnoses + + | Diagnosis | + + | COPD (chronic obstructive pulmonary disease) (HCC) Chronic airway obstruction, not | | elsewhere classified | + + | Nocturnal hypoxemia Hypoxemia | + + documented in this encounter"
--- OUTSIDE RECORDS SUMMARY | ~2019-02-24 | XMS | Encounter Summary ---
Demographics + + + | Address | [address] | | | [place] [address] | + + + | Home Phone [...] | Organization | [facility] | | [...] Team Providers + +------+ + | Care Tier And Detonator Name | Role | Phone | + [...] | unspecified | [place], [place] | [place] [address] | | | | | gastrointest | [address] | Phone: | | | | | inal | Phone: | [phone] | | | | | hemorrhage | [phone] | Fax: | | | | | type | Fax: | [phone] | | | | | Procedures | [phone] | | | | | | [place] GI IMAG | | | | | [...] | | | | | gastrointest | [address] | [address] | | | | | inal | Phone: | Phone: | | | | | hemorrhage | [phone] | [phone] | | | | | type | Fax: | Fax: | | | | | Procedures | [phone] | [phone] | | | | | CT | [...] | DO [address] | [address], | | | | | inal | [address] [place] | [address] | | | | | hemorrhage, | [place], [place] | [place], | | | | | unspecified | [address] | [place] [address] | | | | | Procedures | Phone: | Phone: | | | | | Office | [phone] | [phone] | | | | | Visit | Fax: | Fax: | | | | | | [phone] | [phone] | +--------+--------+ + + + + Encounter [...] | | | | [address] [place] [place] | [place] [address] | gastrointestinal | | | | [address] | [phone] | hemorrhage type | | | | [phone] | | (Primary Dx); | | | [...] Office Visit: 04/22/17 Referring Provider: Parviz Brar [address] [place] [address] [place] [address] Providing Physician: Marc Odell MD. Chief Complaint: Other (gastrointestinal hemorrage) History of Present Illness Diego Lucas is a 81 y.o. male with a history of prostate cancer, CAD, COPD, and recur rent GI hemorrhage who presents for further evaluation of his recurrent GI bleeds. His most recent bleed was in February 2017, for which he was hospitalized at [facility]. Roberto Carlos rodriguez had developed painless melena, [...] September, when he wasn't having melena. The [place] [facility] unity was negative. He had another colonoscopy in [...] with upper GI bleed Pneumonia 05/2012 hospitalized [facility] Prostate cancer (HCC) 2007 s/p radiation treatment and on hormonal treatment with Lupron; DR JULIAN IN [place] Pulmonary nodules Seborrheic dermatitis of scalp Shoulder fracture 02/2012 Supplemental oxygen dependent 02@2L AT NIGHT SVT (supraventricular tachycardia) (HCC) 01/[address] Wilder for ablation TIA (transient ischemic attack) SEVERAL. LAST TIME 2012.NO RESIDUAL; CT SCAN/ ANGIO IN PAST Vasovagal syncope Past Surgical History Past Surgical History: Procedure Laterality Date ABLATION OF DYSRHYTHMIC FOCUS 03/19/2014 Laterality: N/A; Surgeon: Jennifer Wilder MD; Location: [facility] ELECTROPHYSIOLOGY ANGIOGRAM EARLY 1979 FOR TIA HISTORY APPENDECTOMY CATARACT REMOVAL 03/2013 Left CATARACT REMOVAL WITH IMPLANT 11/2011 Right Catheter ablation [place] COLONOSCOPY 2016 [facility]-Dr. Arellano COLONOSCOPY [...] other animal exposures. Grew up in [place]. Then lived in [place]. Then moved to [place]. In the service lived [facility] and [place]. No recent travel. Allergies Allergies Allergen Reactions Ipratropium [facility] Other (See Comments) Reaction: Cough Penicillins [...] mcg/puff inhaler Inhale 1 puff into the jusitce ngs Daily. 1 each 11 HYDROcodone-acetaminophen (NORCO) [...] g by mouth Daily. Respiratory Therapy Supplies [facility] Please provide an O2 concentrator [...] bowel lesion, this can be done in [place] -if this is negative, then I would [...] or fail to improve. CC: Parviz Brar [address] [facility] [place] [address] [place] [address] Portions of this chart may have been created with [employer] voice recognition software. Occasi onal wrong-word or [...] [place] | | | | | | [place] [address] | | | | | | [phone] | | | | | | | [...]
--- OUTSIDE RECORDS SUMMARY | ~2019-02-24 | XMS | Encounter Summary ---
Demographics + + + | Address | [address] | | | [place] [address] | + + + | Home Phone [...] | Organization | [facility] [...] Providers + +------+ + | Care Shirt Finisher Name | Role | Phone | + +------+ + PCP | Unavailable | + +------+ + Encounter Details +--------+ + + + + | Date | Type | Department | Care Team | Description | +--------+ + + + + | 03/06/ | Hospital | [facility] | | | | 1996 | Encounter | MED CTR XRAY [address] | | | | | | [place] | | | | | | [place] [address] | | | | | | [phone] | | | +--------+ + + + [...] | | | | | [place] [address] | | | | | | [phone] | | | | | | | | +--------+---------+ + + + documented as of this encounter Visit Diagnoses Not on filedocumented in this encounter"
--- OUTSIDE RECORDS SUMMARY | ~2019-02-24 | XMS | Encounter Summary ---
Demographics + + + | Address | [address] | | | [place] [address] | + + + | Home Phone [...] | Organization | [facility] | | | [...] Team Providers + +------+ + | Care Departmental Shipping Clerk Name | Role | Phone | [...] | unspecified | [place], [place] | [place] [address] | | | | | gastrointest | [address] | Phone: | | | | | inal | Phone: | [phone] | | | | | hemorrhage | [phone] | Fax: | | | | | type | Fax: | [phone] | | | | | Procedures | [phone] | | | | | | [place] [...] | | | | | gastrointest | [address] | [address] | | | | | inal | Phone: | Phone: | | | | | hemorrhage | [phone] | [phone] | | | | | type | Fax: | Fax: | | | | | Procedures | [phone] | [phone] | | | | | CT | [...] | DO [address] | [address], | | | | | inal | [address] | [address] | | | | | hemorrhage, | [place], [place] | [place], | | | | | unspecified | [address] | [place] [address] | | | | | Procedures | Phone: | Phone: | | | | | Office | [phone] | [phone] | | | | | Visit | Fax: | Fax: | | | | | | [phone] | [phone] | +--------+--------+ + + + + Encounter Details +--------+---------+ + + + | Date | Type | Department | Care Team | Description | +--------+---------+ + + + | 04/21/ | Office | [facility] [place] | Marc Odell | Gastrointestinal | | 2018 | Visit | GASTROENTEROLOGY | MD Noe [address] | hemorrhage, | | | | [address] [place] | [place] | unspecified | | | | [address] [place] | [place] [address] | gastrointestinal | | | | [address] | [phone] | hemorrhage type | | | | [phone] | | (Primary Dx); | | | [...] Office Visit: 04/22/17 Referring Provider: Parviz Brar [address] [place] [address] [place] [address] Providing Physician: Marc Odell MD. Chief Complaint: Other (gastrointestinal hemorrage) History of Present Illness Diego Lucas is a 81 y.o. male with a history of prostate cancer, CAD, COPD, and recur rent GI hemorrhage who presents for further evaluation of his recurrent GI bleeds. His most recent bleed was in February 2017, for which he was hospitalized at [facility]. Roberto Carlos rodriguez had developed painless [...] September, when he wasn't having melena. [facility]. He had another [...] with upper GI bleed Pneumonia 05/2012 hospitalized [facility] Prostate cancer (HCC) 2007 s/p [...] Laterality: N/A; Surgeon: Jennifer Wilder MD; Location: [facility] ELECTROPHYSIOLOGY ANGIOGRAM EARLY 1979 FOR TIA HISTORY APPENDECTOMY CATARACT REMOVAL 03/2013 Left CATARACT REMOVAL WITH IMPLANT 11/2011 Right Catheter ablation [place] COLONOSCOPY 2016 [facility]-Dr. Arellano COLONOSCOPY 03/18/2017 Postoperative Diagnosis: Minimal [...] No other animal exposures. Grew up in [place]. Then lived in [place]. Then moved to [place]. In the service lived [facility] and [place]. No recent travel. Allergies Allergies Allergen Reactions Ipratropium [place] Hfa Other (See Comments) Reaction: Cough Penicillins [...] g by mouth Daily. Respiratory Therapy Supplies [facility] Please provide an O2 [...] bowel lesion, this can be done in [place] -if this is negative, then I would [...] or fail to improve. CC: Parviz Brar [address] [facility] [place] [address] [place] [address] Portions of this chart may have been created with [employer] voice recognition software. Occasi onal wrong-word or [...] | | | | | [place] [address] | | | | | | [phone] | | | | | | | [...]
[~2019-02-24 09:03] MED LIST changes: +MONTELUKAST SOD10 MG PO
--- OUTSIDE RECORDS SUMMARY | 2019-02-24 09:06 | XMS ---
PreManage Notification: OLGA LEMUS Security Medical Editor Events No recent Security Events currently on file CRITERIA MET - PDMP CARE PROVIDERS Hebert Brar Current PHONE: Unknown [place] has no Care Guidelines for this patient. E.Srikanth VISIT COUNT (12 MO.) 1 [place] TOTAL 1 NOTE: Visits indicate total known visits. ED/UCC VISIT TRACKING (12 MO.) 02/24/2019 09:03 [place] TYPE: Emergency COMPLAINT: - DIZZINESS, BLOOD IN STOOL INPATIENT VISIT TRACKING (12 MO.) No inpatient visits to display in this time frame [id number]
[2019-02-24] MEDS ORDERED: BREO ELLIPTA I1 EACH INH (09:14)
[2019-02-24] MEDS ORDERED: VENTOLIN HFA18 GM INH (09:15)
[2019-02-24] MEDS ORDERED: MOMETASONE FURO15 G1 (09:17)
[2019-02-24] MEDS ORDERED: IRON18 MG PO (09:19)
--- NOTE | 2019-02-24 12:00 | NUR ---
PT ARRIVED TO FLOOR BY STRETCHER WITH RN AIR SHOVEL OPERATOR. PT WAS ABLE TO SELF-TRANSFER TO BED. VITALS TAKEN. NORMAL SALINE IS FINISHING, LR WILL BE HUNG ONCE COMPLETE. SKIN GROSSLY INTACT. TELE IN PLACE, SHOWS SINUS RHYTHM. PT STATES HE USES O2 AT NIGHT AND PRN. FLOMAX GIVEN PER ORDER. PT IS ON CLEAR LIQUIDS, ICE WATER GIVEN. PT HAS CALL LIGHT IN REACH, EXPLAINED TO CALL BEFORE GETTING UP. PT STATES HE FEELS SAFER USING THE URINAL RATHER THAN GETTING UP.
--- NOTE | 2019-02-24 14:30 | NUR ---
SPOKE WITH PATIENT IN ROOM. PATIENT LIVES IN OWN HOME. 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 HER NAME IS DAVID RICE [phone] AND HE WANTS HER LISTED CANDY PACKER. HIS ADULT KIDS LIVE OUT OF TOWN. HE STILL DRIVES. HAS A FEW STEPS INTO HOME WITH RAIL AND HAS NO AMBULATION ISSUES. THERE ARE 12 STEPS TO BASEMENT BUT CAREGIVER DOES LAUNDRY AND HE DOESN'T HAVE TO GO DOWN THEM OFTEN. HE USES OXYGEN NEEDED FOR SOB AND AT NIGHT THROUGH [place]. HE HAS A NEBULIZER. HE FEELS SAFE TO GO HOME AT DISCHARGE. 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 WE DISCUSSED THIS, HE STATES HE KNOWS WHERE THE OFFICE IN TOWN AND HE MAY GO TALK WITH THEM. DISCUSSED I CAN HAVE THEM CALL HIM, HE PREFERS TO DO THIS ON HIS OWN. PATIENT UNDERSTNADS DIAGNOSIS. STATES HE HAS HAD THIS HAPPEN MANY TIMES BEFORE. NO BARRIERS KNOWN AT THIS TIME TO DISCHARGE HOME.
--- NOTE | 2019-02-24 15:49 | EKG ---
[facility] [address] [facility] [place], [place] [address] Signed Normal sinus rhythm Normal ECG When compared with ECG of 15-MAR-2017 17:44, T wave amplitude has decreased in Anterolateral leads Confirmed by MARY JO SURESH DO ([id number]) on 02/24/2019 3:49:11 PM Electronically Signed By: MARY JO SURESH DO 02/24/19 1549 PATIENT NAME: OLGA LEMUS Electrocardiogram DATE OF : 39 PHYSICIAN: MARY JO SURESH DO REPORT #: [id number] REPORT IS CONFIDENTIAL AND NOT TO BE RELEASED WITHOUT AUTHORIZATION
--- NOTE | 2019-02-24 16:12 | NUR ---
PT IS TOLERATING THE BLOOD TRANSFUSION WELL. NO COMPLAINTS OF HEADACHE, ITCHING, NAUSEA, PAIN, DISCOMFORT, CHEST PAIN OR SOB. PT IS RESTING IN BED, WATCHING TV. CALL LIGHT IN REACH AND REMINDED TO CALL IF SYMPTOMS DEVELOP.
--- NOTE | 2019-02-24 17:40 | NUR ---
FIRST UNIT OF BLOOD ADMINISTERED. NO REACTION OBSERVED OR REPORTED. PT DENIED ALL S/SX OF REACTIONS. VS TAKEN. 290ML OF PRBC INFUSED. SECOND UNIT OF BLOOD STARTED. NO REACTION NOTED WITHIN [address] BUCHANAN ROUNDED WITH PT. PLAN IS TO DO UPPER SCOPE 02/25 AT 0900. IF THAT IS CLEAR, WE WILL START BOWEL PREP AND PLAN FOR COLONOSCPY ON 02/26. DISCUSSED CODE STATUS AND MEDICAL POA. PT STATED THAT HIS CAREGIVER, JOE, WILL MAKE DECISION IF NEEDED, BUT SHE DOES NOT HAVE MEDICAL POA. PT WOULD LIKE HIS DAUGHTER, DAKOTA, TO ALSO BE A DECISION MAKER, THOUGH SHE IS NOT LISTED ON HIS CHART AND DOES NOT HAVE POA. PT'S SON, JAYCE, IS THE OLDEST CHILD. DISCUSSED NEED TO GET OFFICIAL MEDICAL POA.
--- NOTE | 2019-02-24 18:43 | NUR ---
PT IS TOLERATING TRANSFUSION WELL. NO REPORTED OR OBSERVED S/SX OF REACTION. HAS FRIENDS AT BEDSIDE.
--- NOTE | 2019-02-24 18:50 | NUR ---
DR SURESH ORDERED CEPACOL LOZENGES FOR COUGH. ORDER ENTERED.
--- NOTE | 2019-02-24 18:59 | NUR ---
PT'S CAREGIVER BROUGHT IN HIS BRIO INHALER, WHICH IS NOT ON OUR FORMULARY. PHARMACY IS NOT IN HOUSE AT THIS TIME, INHALER WAS PLACED IN KITS LIST UNTIL PHARMACY CAN LABEL IT. BOTH CHARGE RNS AWARE. PT'S SECOND UNIT OF BLOOD IS COMPLETE. FLUSHING LINE WITH NORMAL SALINE. VSS.
--- NOTE | 2019-02-24 21:24 | NUR ---
REAMER HAND ROUNDING NOTE. PT RESTING IN BED, ASKS ABOUT HAVING ANOTHER CEPACOL LOZENGE. PT'S PRIMARY RN NOTIFIED. PT'S CELL PHONE RN PAIN MANAGEMENT PLUGGED INTO THE WALL PER PT'S REQUEST. PT DENIES FURTHER NEEDS. WHITE BOARD UPDATED. CALL LIGHT IN REACH.
--- NOTE | 2019-02-24 22:31 | NUR ---
PATIENT RESTING QUIETLY, BUT IS STILL AWAKE AND ASKED FOR ANOTHER CEPACOL LOZANGE FOR HIS THROAT WHICH WAS GIVEN. CALL LIGHT IN REACH.
--- NOTE | 2019-02-25 00:03 | NUR ---
PATIENT NOW NPO, RESPIRATIONS REGULAR AND EVEN LIGHTS OFF, AND EYES CLOSED. CALL LIGHT IN REACH.
--- NOTE | 2019-02-25 02:00 | NUR ---
PATIENT RESTING QUIETLY, EYES CLOSED, RESPIRATIONS ARE REGULAR AND EVEN. CALL LIGHT IN REACH.
--- NOTE | 2019-02-25 03:23 | NUR ---
PATIENT AWAKENS EASILY, REMAINS NPO, IN NEED OF NOTHING AT THIS TIME, EYES CLOSED.
--- NOTE | 2019-02-25 07:06 | NUR ---
RECIEVED BEDSIDE REPORT FROM DIVYA CRUZ. PT IS AWAKE AND ALERT IN BED. STATES HE DID NOT SLEEP WELL. DENIES PAIN, DENIES SOB. HAS BEEN NPO SINCE MIDNIGHT. VOIDING WELL.
--- NOTE | 2019-02-25 07:51 | CONS ---
[facility] [address] [place], [place] [address] Signed DATE OF CONSULTATION: 02/24/2019 CHIEF COMPLAINT: GI bleed. HISTORY OF PRESENT ILLNESS: Olga is an 83-year-old gentleman whom we have all known for multiple years. He said this is the seventh time he has had a GI bleed consisting of melena. He said he had about a day of melena with some nausea and vomiting, but no abdominal pain. He was feeling lightheaded and dizzy, decided to have his live-in caregiver bring him in the emergency room for evaluation. In the past, he has had multiple upper and lower endoscopies. At one point, Dr. Prabhakar placed some clips in the stomach, but really nothing else was ever significantly found. He tells me he does have diverticulosis. He did have a capsule endoscopy with Dr. Werner and nothing was specifically found. There was concern that maybe he has a bleeding AVM somewhere. In the meantime, he has been admitted to our Internal Medicine Service and his hemoglobin had dropped to 7, so he is receiving couple units of blood currently. Overall, he said he feels fine. PAST MEDICAL HISTORY: [place], COPD, hypertension, recurrent anemia and GI bleed, previous packed red blood cells x4, chronic cough, prostate cancer, mood disorder, diverticulosis. PAST SURGICAL HISTORY: Multiple upper and lower endoscopies, capsule endoscopy, pancreatic repair, appendectomy, cardiac ablation. SOCIAL HISTORY: Quit smoking. He does not drink. He is a , but has a live-in caregiver. His daughter is at [phone]. Apparently, he has verbally informed her that she is to make his decisions including his healthcare decisions. He told me that he is a partial code. He would accept an acute code with CPR in a day or two or three, maybe at the most, an intubation, on a ventilator, but nothing prolonged and nothing heroic in that regard. His son is at [phone]. Olga also continues to drive. Dr. Jason Read is primary care provider. FAMILY HISTORY: None. REVIEW OF SYSTEMS: Olga had 10 systems reviewed and he updated me on his capsule endoscopy. ALLERGIES: Penicillin. Electronically Signed By: TRISTEN BUCHANAN MD 02/25/19 0751 PATIENT NAME: OLGA LEMUS CONSULTATION DATE OF : 39 REPORT #: [id number] PHYSICIAN: TRISTEN BUCHANAN MD PCP: JASON READ MD REPORT IS CONFIDENTIAL AND NOT TO BE RELEASED WITHOUT AUTHORIZATION [facility] [address] [place], [place] [address] Signed MEDICATIONS: Mometasone cream, iron, ketoconazole/fluocinonide for his scalp, Atrovent, Flomax, polyethylene glycol, amlodipine, venlafaxine, [place] 10 mg, zolpidem, Icaps, Breo, calcium, vitamin D, albuterol, and Protonix. PHYSICAL EXAMINATION: VITAL SIGNS: Blood pressure 114/59, his heart rate 79, his respiratory rate 16, his temperature is 98.4. He is 91% to 99%. He is 5 feet 11 inches at 71 kg. GENERAL: Olga is an 83-year-old gentleman, who is lying supine semi-recumbent in his hospital bed. His nurse is at the bedside. He is alert, awake, and interactive. He is always tearful. LUNGS: Generally clear to auscultation bilaterally. HEART: Regular rate and rhythm without murmurs. ABDOMEN: Soft, nontender. RECTAL: Not repeated currently. LABORATORY DATA: His white blood cell count was 5.7, initial hemoglobin was 8.8, and after some IV fluids it was 7.0, his neutrophils were 80s, his platelets were 161. BUN was 38 and creatinine 0.81. Urinalysis was negative. INR was 1.1. His troponin level has been negative. Liver function tests were negative. His albumin was 3.7. RADIOGRAPHIC STUDIES: Chest x-ray shows some hyperinflated lungs. An echocardiogram in 2017 showed normal left ventricular ejection fraction. ASSESSMENT AND PLAN: Olga is an 83-year-old gentleman, who presents with melena consistent with gastrointestinal bleed. It is a bit late today to start a bowel prep as I explained to Olga. He reminded did a double bowel prep once and ended up with aspiration pneumonia. I think at this point, we will let him go through the night and in the morning we will have our anesthesia provider come in for an upper endoscopy. If that is negative, then he can do a bowel prep tomorrow with a colonoscopy the following day. Olga is very familiar with this whole process along with risks and benefits. He has expressed understanding and would like to proceed as above. Tristen Buchanan MD ALB/MODL Electronically Signed By: TRISTEN BUCHANAN MD 02/25/19 0751 PATIENT NAME: OLGA LEMUS CONSULTATION DATE OF : 39 REPORT #: [id number] PHYSICIAN: TRISTEN BUCHANAN MD PCP: JASON READ MD REPORT IS CONFIDENTIAL AND NOT TO BE RELEASED WITHOUT AUTHORIZATION [facility] [address] [place] [address] Signed /[id number] cc: MD Tristen Zepeda MD Copies: JASON READ MD, ANDREW L MD ~ Electronically Signed By: TRISTEN BUCHANAN MD 02/25/19 0751 PATIENT NAME: OLGA LEMUS CONSULTATION DATE OF : 39 REPORT #: [id number] PHYSICIAN: TRISTEN BUCHANAN MD PCP: JASON READ MD REPORT IS CONFIDENTIAL AND NOT TO BE RELEASED WITHOUT AUTHORIZATION
--- NOTE | 2019-02-25 08:59 | NUR ---
PT IS OFF THE FLOOR TO OR.
--- NOTE | 2019-02-25 09:04 | NUR ---
PATIENT DOWN FOR EGD. LINENS CHANGED.
--- NOTE | 2019-02-25 09:15 | NUR ---
02/25/19 0915 Desiree Watson 0911-PATIENT ARRIVED TO PACU ON 6L NC REACTIVE TO VOICE DROWSY OPENING EYES DENIES PAIN OR NAUSEA. RR EVEN. ST. PATIENT HAS TELEMETRY ON. 0914-PATIENT WAKING UP EYES OPEN DENIES PAIN OR NAUSEA. PLACED ON 3L NC. WEARS 2L NC AT HOME PRN. PATIENT COUGHING.
--- NOTE | 2019-02-25 09:45 | NUR ---
PT IS BACK FROM EGD. NOTHING FOUND, PT IS AWARE WE WILL START BOWEL PREP. PT WOULD LIKE SOME BROTH. PT HAD SMALL FORMED DARK COLORED BM.
--- NOTE | 2019-02-25 10:07 | OR ---
[facility] [address] [place], [place] [address] Signed DATE OF OPERATION: 02/25/2019 SURGEON: Tristen Buchanan MD PREOPERATIVE DIAGNOSES: 1. Melena. 2. Anemia. 3. Nausea and vomiting. POSTOPERATIVE DIAGNOSES: 1. Moderate sized hiatal hernia (43 to 39 cm). 2. Small distal esophageal diverticulum. PROCEDURE: Esophagogastroduodenoscopy without biopsy. ESTIMATED BLOOD LOSS: None. FINDINGS: Olga had no evidence of any old or acute blood in his duodenum, stomach, or esophagus. He does have a moderate-sized hiatal hernia. On the side of the hiatal hernia is a small pouch/diverticulum. Tiny bit of irritation there, but no evidence of any bleeding. He also had prominent submucosal vein in his proximal esophagus. Again, no evidence of any recent bleeding. INDICATIONS: Olga is an 83-year-old gentleman, who has been in I think the 7th time with melena, and nausea, vomiting, and anemia. He has previously received 4 units of packed red blood cells. When he noticed his nausea and vomiting for a day along with the melena, he had his caregiver bring him to the hospital for evaluation. We could see that his hemoglobin was low at 7.8. INR was normal at 1.1. BUN was up a little at 38. He is not on any aspirin or other blood thinners. No NSAIDs. He has been on iron therapy along with his Protonix. He had been admitted to our internal medicine service. I have been asked to see him for upper and lower endoscopy. It was late in the day and he was unable to take his bowel prep yesterday. Consequently, we decided to do his upper endoscopy this morning. Olga is very familiar with upper and lower endoscopy. There is risk including, but not limited to gas bloating, crampy abdominal pain, bleeding, perforation requiring surgery, and missed diagnosis. Also because of his advanced age, his frail nature and his significant medical issues including a previous myocardial Electronically Signed By: TRISTEN BUCHANAN MD 02/25/19 1007 PATIENT NAME: OLGA LEMUS OPERATIVE REPORT DATE OF : 39 REPORT #: [id number] PHYSICIAN: TRISTEN BUCHANAN MD PCP: JASON ATWOOD MD REPORT IS CONFIDENTIAL AND NOT TO BE RELEASED WITHOUT AUTHORIZATION [facility] [address] [place], [place] [address] Signed infarction, COPD, hypertension, chronic cough, we asked that an anesthesia provider help us with increased monitoring of sedation with propofol. He had expressed understanding and wished to proceed. PROCEDURE NOTE: Olga was taken into our endoscopy suite and placed in a supine semi-recumbent position. He was given IV propofol per our nurse digital advertising specialist. A bite block was utilized for the case. The adult gastroscope was introduced and advanced out into the third portion of the duodenum under direct visualization of camera without difficulty. The duodenum and pyloric channel were completely unremarkable. The stomach was unremarkable as well. Upon retroflexion of scope, one can easily see a moderate-sized hiatal hernia. There were no gastric or esophageal varices. The scope was withdrawn up through the area of the GE junction, which was found to be compliant without stricture. His hiatal hernia measured out from 43 to 39 cm. On the side of the hiatal hernia was what appears to be a small pouch of diverticulum. Tiny bit of irritation there, but no obvious ulceration or bleeding. Very minimal disruption to the Z-line. No Mejia's mucosa. His distal, middle, and upper esophagus were unremarkable except for one prominent vein in the proximal esophagus. No evidence of any recent bleeding from that area. After this, the gas was suctioned out and the gastroscope removed. Olga tolerated his procedure quite well. RECOMMENDATIONS: Olga will be returned to his room today and he will be on clear liquids with his bowel prep. We will plan on doing his colonoscopy tomorrow. He had a capsule endoscopy within the last year or two and it was found to be negative as well. There was concern that he might have an AVM where and it has been bleeding. Tristen Buchanan MD ALB/MODL /[id number] cc: MD Tristen Zepeda MD Electronically Signed By: TRISTEN BUCHANAN MD 02/25/19 1007 PATIENT NAME: OLGA LEMUS OPERATIVE REPORT DATE OF : 39 REPORT #: [id number] PHYSICIAN: TRISTEN BUCHANAN MD PCP: JASON ATWOOD MD REPORT IS CONFIDENTIAL AND NOT TO BE RELEASED WITHOUT AUTHORIZATION [address] [address] Signed Copies: JASON ATWOOD MD, ANDREW L MD ~ Electronically Signed By: TRISTEN BUCHANAN MD 02/25/19 1007 PATIENT NAME: OLGA LEMUS OPERATIVE REPORT DATE OF : 39 REPORT #: [id number] PHYSICIAN: TRISTEN BUCHANAN MD PCP: JASON ATWOOD MD REPORT IS CONFIDENTIAL AND NOT TO BE RELEASED WITHOUT AUTHORIZATION
--- NOTE | 2019-02-25 12:18 | NUR ---
MED REC COMPLETE. PATIENT STATES THAT MEDICATION LIST USED DURING ADMIT TO HOSPITAL.
--- NOTE | 2019-02-25 14:00 | NUR ---
PATIENT IN BED WATCHING TV. CALL LIGHT IN REACH. NO FURTHER NEEDS AT THIS TIME.
--- NOTE | 2019-02-25 14:19 | NUR ---
PT STATES HE IS NOT DOING WELL. STATES HIS STOMACH IS CRAMPY. NO BM YET. RN EXPLAINED THAT CRAMPING IS A SIDE EFFECT OF THE MEDICATION. PT STATES HE DOES NOT KNOW IF HE WANTS TO GO THROUGH WITH THE COLONOSCOPY TOMORROW. RN ENCOURAGED HIM TO DRINK THE SECOND BOTTLE OF GATORADE AND START THE BOWEL PREP AND SEE HOW HE FEELS. REMINDED PT THAT HE WILL BE BETTER ONCE HE KNOWS WHAT IS GOING ON.
--- NOTE | 2019-02-25 18:00 | NUR ---
PT IS HAVING MULTIPLE BLACK, TARRY STOOLS. REPORTS HE FEELS "BETTER THAN I DID THIS AFTERNOON." HE HAS FINISHED BOTH BOTTLES OF MIRALAX BOWEL PREP AND BOTH DOSES OF BISACODYL. ENCOURAGED PT TO DRINK PLEANTY OF PO FLUIDS UNTIL MIDNIGHT.
--- NOTE | 2019-02-25 20:10 | NUR ---
PT ASSESSMENT COMPLETE. PT UTILIZED CALL LIGHT TO REQUEST MORE WET WIPES. PT DENIES PAIN, NASUEA, OR SOB. PT GETTING UP TO BSC INDEPENDENTLY, TOLERATING WELL. COMMODE EMPTIED OF LARGE AMOUNT OF BLACK LIQUID STOOL AND URINE MIX. PT AGREES THAT THE BOWEL PREP IS WORKING. BT'S ACTIVE. PT DENIES ABD TENDERNESS. NO DISTENSION NOTED. RT IN ROOM TO ADMINISTER NEBULIZER TREATMENT. PT DENIES FURTHER NEEDS AT THIS TIME. CALL LIGHT IN REACH.
--- NOTE | 2019-02-25 21:49 | NUR ---
PT UTILIZES CALL LIGHT TO REQUEST O2 FOR THE NIGHT. PT ABLE TO PLACE NASAL CANULA INDEPENDENTLY. O2 @ 2LPM. PT DENIES FURTHER NEEDS. CALL LIGHT IN REACH.
--- NOTE | 2019-02-25 23:14 | NUR ---
PT UTILIZES CALL LIGHT, REPORTS THAT HE SOILED HIS GOWN. NEW GOWN PRIVIDED, PT ASSISTED TO PUT GOWN ON. PT BACK TO BED. DENIES FURTHER NEEDS. COMMODE EMPTIED. PT CONTINUES TO HAVE DARK COLORED LIQUID STOOL. CALL LIGHT IN REACH.
--- NOTE | 2019-02-26 00:05 | NUR ---
water removed from pt's bedside. pt resting in bed awake. understands npo status at this time. denies questions or concerns. commode emptied. light brown liquid with very small chunks present. pt denies further needs a tthis tiem. call light within reach.
--- NOTE | 2019-02-26 02:25 | NUR ---
pt resting in bed with eyes closed. respirations even and unlabored. pt does not wake while typewriter repairer in doorway. call light in reach.
--- NOTE | 2019-02-26 02:41 | NUR ---
PT ASSESSMENT COMPLETE. PT DENIES PAIN, NAUSEA. PT REPORTS SLIGHT SOB AFTER RETURNING TO BED FROM COMMODE. O2 IN PLACE VIA NC AT 2 LPM. LUNG SOUNDS CLEAR. PT CONTINUES TO HAVE DARK LIQUID STOOL, EMPTIED COMMODE AT THIS TIME. PT DENIES ABD TENDERNESS, BT'S ACTIVE. NO DISTENSION NOTED. PT DENIES FURTHER NEEDS AT THIS TIME. CALL LIGHT IN REACH.
--- NOTE | 2019-02-26 04:37 | NUR ---
PT UTILIZES CALL LIGHT, REPORTS VERY DRY MOUTH, REQUESTS LEMON SWABS. PT STATES "I DON'T UNDERSTAND WHY I CAN'T HAVE ANYTHING TO DRINK." EDUCATION PROVIDED. PT STATES UNDERSTANDING. VS OBTAINED. TEMP 100.5 ORAL. PT HAS SEVERAL BLANKETS, 1 LEFT FOR PT THE REST REMOVED. ROOM TEMP @ 76, TURNED DOWN TO 72. PT DEMONSTRATES APPROPRIATE IS USE. WILL RECHECK TEMP. PT DENIES FURTHER NEEDS AT THIS TIME. CALL LIGHT WITHIN REACH.
--- NOTE | 2019-02-26 04:48 | NUR ---
PT UP AND DOWN TO BSC FREQUENTLY THIS SHIFT. STOOL HAS BEEN LIQUID THROUGHOUT THE SHIFT WITH SEDIMENT AND SMALL CHUNCKS NOTED, ALTHOUGH STOOL COLOR HAS RANGED FROM CLEAR TO DARK BROWN/BLACK. PT WEARING O2 @ 2LPM VIA NC AT [facility]. NEB TREATMENTS SCHEDULED. PT REPORTS OCCASIONAL SOB AFTER USING THE COMMODE. NPO SINCE MIDNIGHT FOR PROCEDURE THIS AM. IVF INFUSING.
--- NOTE | 2019-02-26 06:20 | NUR ---
PT TEMP RECHECKED, 98.5. PT ASKS FOR THERMOSTAT TO BE TURNED BACK UP, STATES THAT HE IS FEELING CHILLY. TEMP TURNED UP TO 75. PT DENIES FURTHER NEEDS AT THIS TIME. CALL LIGHT IN REACH.
--- NOTE | 2019-02-26 07:00 | NUR ---
REPORT RECEIVED FROM SUPERVISOR SHIPPING ROOM RN. PT IN BED WITH D5LR AT 75. RESP EQUAL. 2L NC IN PLACE. DENIES PAIN. CALL LIGHT IN REACH.
--- NOTE | 2019-02-26 08:04 | NUR ---
THIS NURSE TO BEDSIDE TO WAKE PT FOR ASSESSEMENT AND MORNING CARES. PT WITH RESP RATE 20. HR OFF 113 AT REST THEN 120 WHEN UP TO BEDSIDE. TENP OF 99.9. CRACKLES IN BASE OF LUNGS. RT IN FOR BREATHING TREATMENT. PT DENIES PAIN. RT TO WORK WITH INCENTIVE SPEROMETER. D5LR AT 75 INFUSING. PT IS ALERT AND ORIENTED. CALL LIGHT IN REACH
--- NOTE | 2019-02-26 08:44 | NUR ---
PT OFF FLOOR TO COLONOSCOPY.
--- NOTE | 2019-02-26 09:27 | NUR ---
PT ARRIVES TO ROOM 129 FROM OR, CIVIL ENGINEERING DESIGN DRAFTSPERSON AND INSECTICIDE SUPERVISOR ACCOMPANY THE PT. PT IS AWAKE AND ALERT X4, ABLE TO ANSWER QUESTIONS. PT DENIES PAIN.
--- NOTE | 2019-02-26 09:45 | NUR ---
PT CLEANED FROM INCONTINENT STOOL. COCCIX AND DOLORES AREA ARE INTACT, NO REDNESS NOTED. PT PLACED IN CLEAN ATTEND, CLEAN GOWN, AND CLEAN CHUCKS. PT DIANA ACTIVITY WELL, REQUIRES ASSIST TO ROLL FROM SIDE TO SIDE.
--- NOTE | 2019-02-26 09:57 | NUR ---
PT GIVEN 4 MG IV ZOFRAN FOR C/O MILD NAUSEA. PT IS ALERT AND ORIENTED X4, ANSWERS QUESTIONS APPROPRIATLY.
--- NOTE | 2019-02-26 10:02 | NUR ---
PACU REPORT RECIEVED FROM JOSE ANGEL PRODUCT SUPPORT SPECIALIST.
--- NOTE | 2019-02-26 10:07 | NUR ---
REPORT CALLED TO CRISTIAN STOKES IN CCU.
--- NOTE | 2019-02-26 10:07 | NUR ---
FULL REPORT RECIEVED FROM LUIS ALBERTO VIA PHONE, ALL QUESTIONS ANSWERED.
--- NOTE | 2019-02-26 10:10 | NUR ---
PT CHANGED TO OXYMASK AT 3L FROM NASAL CANULA DUE TO MOUTH BREATHING.
--- NOTE | 2019-02-26 10:55 | NUR ---
IV SITES ARE INTACT, NO REDNESS OR SWELLING NOTED, PT DENIES PAIN AT EITHER SITE, FLUIDS AND FLUSHES INFUSE EASILY. PT DENIES NAUSEA, PAIN, AND SOB. PT SITTING UP IN BED VISITING WITH CAREGIVER AT BEDSIDE. PT IS ALERT AND ORIENTED X4, COOPERATIVE AND POLITE. VITALS ARE WNL AT THIS TIME. PT DIANA SIPS OF WATER, ABLE TO SWALLOW PILLS.
--- NOTE | 2019-02-26 11:23 | NUR ---
PT IS WATCHING TV WITH CAREGIVER AT BEDSIDE. VITALS ARE WNL. PT REMAINS ON 3L VIA OXYMASK, O2 SAT IS 96%.
--- NOTE | 2019-02-26 12:51 | NUR ---
PT SLEEPING OFF AND ON, REQUESTED AND WAS GIVEN CHICKEN BROTH. PT VITALS REMAIN STABLE.
--- NOTE | 2019-02-26 16:30 | NUR ---
PT ABLE TO DRINK ONE ENTIRE ENSURE, DIANA WELL, DENIES NAUSEA AND SOB. PT SWITCHED TO O2 VIA NC INSTEAD OF OXYMASK, REMAINS AT 3L FLOW.
--- NOTE | 2019-02-26 16:39 | NUR ---
PT SITTING UP IN BED WATCHING TV, PT STATES "I FEEL ALOT BETTER THAN THIS MORNING". PT AGREES TO GET UP TO THE CHAIR TO EAT DINNER. PT IS ALERT AND ORIENTED X4, NOW ABLE TO DIANA O2 VIA NASAL CANULA 3L, NO LONGER REQUIRING OXYMASK. VITALS ARE WNL. PT DENIES PAIN, NAUSEA, AND SOB. IV SITES ARE INTACT, NO SWELLING OR REDNESS NOTED.
--- NOTE | 2019-02-26 17:10 | NUR ---
PT ABLE TO SIT UP AT THE SIDE OF THE BED, WASH FACE AND HANDS WITH WARM SOAPY WASH CLOTH. RN WASHED PT BACK, UNDERARMS AND TORSO. CLEAN GOWN PLACED, DOLORES CARE DONE, SMALL AMOUNT OF INCONTINENT LIQUID STOOL, CLEAN ATTENDS IN PLACE. PT ABLE TO AMBULATE TO CHAIR WITH STANDBY ASSIST ONLY. PT HAS SOME SOB WITH THE ACTIVITY, O2 SATS REMAIN WNL 90% OR BETTER O2 IS ON PT DURING ACTIVITY. PT DINNER TRAY DELIVERED.
--- NOTE | 2019-02-26 17:15 | NUR ---
O2 TITRATED DOWN TO 2L FROM 3L.
--- NOTE | 2019-02-26 18:16 | NUR ---
PT SALINE LOCKED AT THIS TIME PER
--- NOTE | 2019-02-26 18:50 | NUR ---
pt transfered to room 113 from room 129 in ccu. pt nancy activity well. all personal belongings transfered with pt. vitals are wnl. this rn will stay on med/surg due to staffing shortage.
--- NOTE | 2019-02-26 19:15 | NUR ---
BEDSIDE REPORT RECEIVED FROM OFFGOING RNCRISTIAN. PT RESTING IN BED WITH EYES CLOSED.
--- NOTE | 2019-02-26 21:40 | NUR ---
PT RESTING IN BED. ASSESSMENT COMPLETE. PT DENIES PAIN, NAUSEA, OR SOB. PT IN GOOD SPIRITS, STATES THAT HE IS GLAD THEY FOUND THE SOURCE OF THE BLEEDING TODAY. PT HAS O2 IN PLACE @ 2LPM VIA NC. REPORTS L HAND TINGLING DUE TO IV INFILTRATION. GENERALIZED EDEMA PRESENT. PT REPORTS THAT IT IS IMPROVED. URINAL EMPTIED. PT DENIES FURTHER NEEDS AT THIS TIME. CALL LIGHT IN REACH.
--- NOTE | 2019-02-26 23:51 | NUR ---
PT RESTING IN BED WITH PILLOW OVER HIS FACE. PT SNORING AUDIBLY FROM DOORWAY, DOES NOT WAKE. CALL LIGHT IN REACH.
--- NOTE | 2019-02-27 01:03 | OR ---
[facility] [address], [place] [address] Signed DATE OF OPERATION: 02/26/2019 SURGEON: Tristen Buchanan MD PREOPERATIVE DIAGNOSES: 1. Melena. 2. Anemia. 3. Diverticulosis. POSTOPERATIVE DIAGNOSES: 1. Minimal to moderate sigmoid diverticulosis. 2. Moderate internal hemorrhoids. 3. 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 PROCEDURES: Colonoscopy with cautery and clipping x4 of AVM. ESTIMATED BLOOD LOSS: Minimal. INDICATIONS: Olga is an 83-year-old gentleman who significantly debilitated with COPD and previous IN and hypertension and so forth. He has been having trouble with recurrent anemia and melena. He has received up to 4 units of packed red blood cells in the past. He has had at least seven upper and lower endoscopies in this regard. He has even had capsule endoscopy. Nothing ever definitive has been found. Once again, he came back to the emergency room with at least a day history of melena with nausea and vomiting. No abdominal pain. He did receive a couple units of packed red blood cells. His upper endoscopy yesterday showed his hiatal hernia, but no significant source of bleeding. Consequently, he went through his bowel prep yesterday and we have brought him down for his colonoscopy this morning. Olga and I talked about the colonoscopy. He is very familiar with that procedure. He understands there is risk including, but not limited to gas bloating, crampy abdominal pain, bleeding, perforation requiring surgery, and missed diagnosis. Also because of his advanced age and medical issues, and his frail functional status we did have an anesthesia provider help us with increased monitoring sedation with propofol. He had expressed understanding wished to proceed. DESCRIPTION OF PROCEDURE: Olga was taken into our endoscopy suite and placed in the left lateral decubitus position. He was given IV sedation with propofol per our nurse managed services consultant. We had to Electronically Signed By: TRISTEN BUCHANAN MD 02/27/19 0103 PATIENT NAME: OLGA LEMUS OPERATIVE REPORT DATE OF : 39 REPORT #: [id number] PHYSICIAN: TRISTEN BUCHANAN MD PCP: JASON ATWOOD MD REPORT IS CONFIDENTIAL AND NOT TO BE RELEASED WITHOUT AUTHORIZATION [facility] [address], [place] [address] Signed use vasopressors to support his blood pressure throughout the procedure. We gave him additional fluids. A digital rectal exam had been performed and there was not much left to the prostate gland. There was a firm nodule. We know he has a history of prostate cancer. No external hemorrhoids. No masses noted otherwise. The adult colonoscope was then introduced and advanced under direct visualization of the camera. It took some extra sedation abdominal compression in order to get the scope all the way to the cecum itself. His prep was average. He had a couple of areas of liquid particulate stool matter. Most of that was irrigated and suctioned out. We could easily see the appendiceal orifice and the ileocecal valve. The scope was slowly withdrawn. We had taken pictures throughout for photodocumentation. Immediately opposite the ileocecal valve was what appeared to be an AV malformation. It was cauterized along its length and then four clips were placed along its length with good hemostasis. We did see diverticula in the sigmoid colon. They were moderate in size minimal to moderate in number, and scattered about. There were no polyps. The rectum itself was unremarkable. Upon retroflexion of scope he does have some internal hemorrhoid tissue. After this, the gas was suctioned out, colonoscope removed. Olga tolerated procedure quite well. RECOMMENDATIONS: Olga will be transferred over to the ICU where he can be monitored carefully, particularly with respect to his blood pressure. We already have our Internal Medicine Service available here in ICU. He will proceed with a chest x-ray as well as he has had quite a bit of phlegm and we noticed that his white count has increased and he has had some temperature spikes overnight. Tristen Buchanan MD ALB/MODL /[id number] cc: MD Jason Boston MD Copies: TRISTEN BUCHANAN MD Electronically Signed By: TRISTEN BUCHANAN MD 02/27/19 0103 PATIENT NAME: OLGA LEMUS OPERATIVE REPORT DATE OF : 39 REPORT #: [id number] PHYSICIAN: TRISTEN BUCHANAN MD PCP: JASON ATOWOD MD REPORT IS CONFIDENTIAL AND NOT TO BE RELEASED WITHOUT AUTHORIZATION [address] [address] Signed JASON ATWOOD MD ~ Electronically Signed By: TRISTEN BUCHANAN MD 02/27/19 0103 PATIENT NAME: OLGA LEMUS OPERATIVE REPORT DATE OF : 39 REPORT #: [id number] PHYSICIAN: TRISTEN BUCHANAN MD PCP: JASON ATWOOD MD REPORT IS CONFIDENTIAL AND NOT TO BE RELEASED WITHOUT AUTHORIZATION
--- NOTE | 2019-02-27 03:57 | NUR ---
PT RESTING IN BED WITH EYES CLOSED. PT WAKES EASILY. PT ASSESSMENT COMPLETE. PT DENIES PAIN, NUASEA, OR SOB. O2 IN PLACE AT 2 LPM. NO COUGH NOTED DURING THIS ASSESSMENT. LUNG SOUND DIM IN BILATERAL BASES. PT REPORTS THAT L HAND WHERE IV INFILTRATED CONTINUES TO TINGLE SLIGHT, PT REPORTS CONTINUED IMPROVEMENT. URINAL EMPTIED. PT DENIES FURTHER NEEDS. CALL LIGHT IN REACH.
--- NOTE | 2019-02-27 05:52 | NUR ---
FREIGHT ENGINEER IN ROOM OBTAINING VS. PT SITTING UP AT EDGE OF BED. PT DENIES NEEDS AT THIS TIME. ABLE TO LAY BACK IN BED UNASSISTED. PT DENIES FURTHER NEEDS AT THIS TIME. CALL LIGHT IN REACH.
--- NOTE | 2019-02-27 07:37 | NUR ---
bedside report received, pt is awake and interactive denies discomforts or needs at this time.
--- NOTE | 2019-02-27 09:30 | NUR ---
PATIENT UP TO BATHROOM AND BACK TO BED, 1PA. PATIENT SAID SHOWER MAYBE LATER. CALL LIGHT IN REACH. NO FURTHER NEEDS AT THIS TIME.
--- NOTE | 2019-02-27 09:35 | NUR ---
SPOKE WITH PATIENT IN ROOM. PATIENT STATES HE IS FEELING BETTER. IS STILL WAITING TO SEE THE DOCTOR. HE IS NOT SURE IF HE IS GOING HOME TODAY. FEELS SAFE TO RETURN HOME. STATES HIS CAREGIVER IS COMING IN AND SHE WILL BE WITH HIM AT HOME FULL-TIME. HAS NO QUESTIONS AT THIS TIME. NURSE IN TO WORK WITH HIM.
--- NOTE | 2019-02-27 10:59 | NUR ---
PT EATS 100% OF MORNING MEAL, HAS COMPANY AT THIS TIME. PT IS ALERT AND TALKATIVE, LAUGHING EASILY DENIES NEEDS AT THIS TIME
--- NOTE | 2019-02-27 12:28 | NUR ---
PT UP TO THE CHAIR EATS 100% OF NOON MEAL. DENIES DISCOMFORTS, SOB, OR NEEDS OF. PT REPORTS AFTER SEEING DR SURESH HE ANTICIPATES POSSIBLE DC TOMORROW, STATES HE FEELS HE'S READY
--- NOTE | 2019-02-27 13:51 | NUR ---
PATIENT SITTING IN CHAIR. O2 A LITTLE LOW, RN NOTIFIED. CALL LIGHT IN REACH. NO FURTHER NEEDS AT THIS TIME.
--- NOTE | 2019-02-27 14:06 | NUR ---
PT IS ALERT, ORIENTED AND SITTING IN CHAIR WATCHING TV AND SENDING AN EMAIL ON HIS PHONE. PT SAID HE HAD HOPED TO BE DC'D TODAY, BUT AFTER TALKING WITH DR SURESH, DECISION WAS MADE TO STAY 1 MORE DAY. PT EXPRESSED CONFIDENCE IN 'S RECOMMENDATION. HAD GOOD VISIT WITH PT, HE REQUESTED PRAYER. WILL FOLLOW NEEDED
--- NOTE | 2019-02-27 14:40 | NUR ---
PT UP TO THE CHAIR FOR SEVERAL HOURS RETURNS TO BED TO REST AT THIS TIME.
--- NOTE | 2019-02-27 17:56 | NUR ---
PT UP IN ROOM INDEPENDANTLY USING TOILET RETURNING TO BED. NO C/O SOB, PAIN OR DISCOMFORTS. TOELRATES 100% OF EVENING MEAL
--- NOTE | 2019-02-27 18:26 | NUR ---
PATIENT SITTING UP IN BED WATCHING TV. FRESH WATER GIVEN. CALL LIGHT IN REACH. NO FURTHER NEEDS AT THIS TIME.
--- NOTE | 2019-02-27 20:47 | NUR ---
PT ASSESSMENT COMPLETE. PT DENIES PAIN, NAUSUEA, OR SOB.PT ON RA AT THIS TIME, TOLERATING WELL, AGREES THAT HE WILL PUT NC ON FOR BED PER HIS USUAL. NC WITHIN PT'S REACH.LUNG SOUNDS DIM IN BILATERAL BASES. PT REPORTS OCCASIONAL PRODUCTIVE COUGH ONGOING. PT REPORTS THAT L HAND IS STILL TINGLING AFTER IV INFILTRATION YESTERDAY, SWELLING IMPROVED. PT REPORTS PAIN TO L GREAT TOE, STATES HE THINKS HE MAY HAVE SOME GOUT, ASSESSMENT OF TOE BENIGN. PT DENIES FURTHER NEEDS. CALL LIGHT IN REACH.
--- NOTE | 2019-02-27 22:38 | NUR ---
PT RESTING IN BED WITH PILLOW OVER HIS FACE. RESPIRATIONS EVEN AND UNLABORED. PT APPEARS TO BE SLEEPING. CALL LIGHT IN REACH.
--- NOTE | 2019-02-28 01:49 | NUR ---
PT RESTIN IN BED, HEAD UNCOVERED. RESPIRATIONS ARE EVEN AND UNLABORED. PT APPEARS TO BE SLEEPING. CALL LIGHT IN REACH.
--- NOTE | 2019-02-28 03:59 | NUR ---
PT RESTING IN BED WITH PILLOW OVER HIS HEAD. RESPIRATIONS EVEN AND UNLABORED. PT APPEARS TO BE SLEEPING. CALL LIGHT IN REACH.
--- NOTE | 2019-02-28 05:01 | NUR ---
PT SLEPT MOST OF SHIFT. NO C/O PAIN, NAUSEA, SOB. O2 IN PLACE @ 2LPM WHILE ASLEEP. PT REPORTS OCCASIONAL PRODUCTIVE COUGH. IV SL. UO QS. GOOD APPETITE. SBA.
--- NOTE | 2019-02-28 06:35 | NUR ---
PT ASSESSMENT COMPLETE. PT AGREES THAT HE SLEPT VERY WELL OVERNIGHT. PT DENIES PAIN, NAUSEA, OR SOB. O2 IN PLACE @ 2LPM. PT WITH COUGH DURING ASSESSMENT, ESPECIALLY WHEN BARK TANNER INSTRUCTS PT TO TAKE DEEP BREATH. PT STATES HE IS READY TO ORDER BREAKFAST. PT DENIES NEEDS FURTHER NEEDS AT THIS TIME. CALL LIGHT IN REACH.
--- NOTE | 2019-02-28 08:02 | NUR ---
BEDSIDE REPORT RECEIVED FROM HALIE STOKES. WHITE BOARD UPDATED. ALL QUESTIONS ANSWERED. PATIENT AWAKE SITTING UP IN BED. ANXIOUS TO GO HOME TODAY. 0800 PATIENT SITTING UP IN BED EATING BREAKFAST WATCHING TELEVISION.
--- NOTE | 2019-02-28 10:09 | NUR ---
HOME O2 QUALIFY TEST COMPLETED WITH RESPIRATORY THERAPIST. DARIEL REPORTS CONTINUE 2L 02 AT NIGHT AND 3L DEPENDING ON ACTIVITY FOR DAYTIME USE.
--- NOTE | 2019-02-28 11:10 | NUR ---
TALKED IN DEPTH WITH PT, GAVE PT EDUCATION PACKET TO PT. PT STATES WITH OFTEN HE HAS HAD THESE GI BLEEDS, HE COULD TELL ME MORE THAN I CAN TELL HIM, HE LAUGHED. WE HOWEVER WENT ON TO TALK ABOUT SX TO WATCH FOR, WHEN TO CONTACT THE DR, WHEN TO COME TO ER. MEDICATIONS WERE DISCUSSED TO WHY HE WAS TAKING THEM AND WHAT SIDE EFFECTS ARE, AND HOW TO TAKE THEM. PT STATES UNDERSTANDING AND STATES THAT HIS APPIAN DEVELOPER SETS UP HIS MEDS FOR HIM. PT DENIES OTHER QUESTIONS, OR CONCERNS AT THIS TIME.
[2019-02-28] MEDS ORDERED: AZITHROMYCIN250 MG PO (11:16)
--- NOTE | 2019-02-28 12:27 | NUR ---
PT SITTING UP IN BED, WATCHING TV. HE IS ALERT, ORIENTED AND ANTICIPATING DC LATER TODAY. HE IS LAUGHING AND JOKING-FEELING MUCH BETTER. GAVE A BLESSING AND WILL FOLLOW NEEDED
--- NOTE | 2019-02-28 12:36 | NUR ---
PT SHOWERED PRIOR TO DISCHARGE. FEELING SHORT OF BREATH AT THIS TIME. O2 SATS 96% ON 3L. RESTING AT EDGE OF BED TO CATCH BREATH BEFORE GETTING DRESSED. FAMILY MEMBER WAITING IN HALLWAY.
--- NOTE | 2019-02-28 14:31 | NUR ---
In and spoke with pt and his pcg. Pt ready to dc. Let him know I will fax the updated 02 rx to [facility] so it will be documented correctly. Pt states he has 4 02 tanks at home as well as a concentrator. Friend in room who states someone gave her an [place] conc. and she will bring to him to use. Dc summary, 02 qualifier, order, and notes faxed to [facility].
[2019-03-01] MEDS ORDERED: ZITHROMAX250 MG PO (11:11)
== END 2019-02-28 13:15 | disposition home or self-care (01) | DRG 377 ==
LOC: ED 09:03 → MS 09:04 → ED 09:04 → MS 12:14 → CCU 02-26 09:30 → MS 02-26 09:30 → CCU 02-26 18:30 → MS 02-26 18:30
PROVIDERS: Colon & Rectal Surgery; ADMIT Student in an Organized Health Care Education/Training Program
PROC: 30233N1 Transfusion of Nonautologous Red Blood Cells into Peripheral Vein, Percutaneous Approach (ICD-10-PCS; 2019-02-24)
PROC: 0DJ08ZZ Inspection of Upper Intestinal Tract, Via Natural or Artificial Opening Endoscopic (ICD-10-PCS; 2019-02-25)
PROC: 0W3P8ZZ Control Bleeding in Gastrointestinal Tract, Via Natural or Artificial Opening Endoscopic (ICD-10-PCS; principal; 2019-02-26 08:24)
DX: K55.21 Angiodysplasia of colon with hemorrhage (principal); J18.9 Pneumonia, unspecified organism; J96.91 Respiratory failure, unspecified with hypoxia; D62 Acute posthemorrhagic anemia; J44.0 Chronic obstructive pulmonary disease with (acute) lower respiratory infection; K44.9 Diaphragmatic hernia without obstruction or gangrene; I10 Essential (primary) hypertension; C61 Malignant neoplasm of prostate; F39 Unspecified mood [affective] disorder; I25.2 Old myocardial infarction; K22.8 Other specified diseases of esophagus; K57.30 Diverticulosis of large intestine without perforation or abscess without bleeding; K64.8 Other hemorrhoids; Z88.0 Allergy status to penicillin; Z79.891 Long term (current) use of opiate analgesic; Z87.891 Personal history of nicotine dependence; Z79.51 Long term (current) use of inhaled steroids; Z79.899 Other long term (current) drug therapy
CPT/HCPCS: 36415; 36430; 71045; 80048; 80053; 81001; 83605; 83735; 84100; 84484; 85025; 85610; 85730; 86850; 86900; 86901; 86920; 93005; 93010; 94640; 94760; 94761; 96361; 96374; 97161; 99285-25; C9113; J0610; J0696; J1160; J1720; J2370; J2405; J2704; J3475; J3480; J7030; J7060; J7121; P9016

== ENCOUNTER 2019-03-01 10:40 | Inpatient (IN) | payer MEDICARE, OTHER ==
[~2019-03-01] VITALS: Ht 180.3 cm; Wt 71.1 kg
== END 2019-03-05 12:10 | disposition home or self-care (01) | DRG 919 ==
LOC: ED 10:40 → CCU 12:10 → MS 03-04 12:30
PROVIDERS: ADMIT Internal Medicine
PROC: 30233N1 Transfusion of Nonautologous Red Blood Cells into Peripheral Vein, Percutaneous Approach (ICD-10-PCS; 2019-03-01)
PROC: 0DJ08ZZ Inspection of Upper Intestinal Tract, Via Natural or Artificial Opening Endoscopic (ICD-10-PCS; principal; 2019-03-02)
PROC: 0DJD8ZZ Inspection of Lower Intestinal Tract, Via Natural or Artificial Opening Endoscopic (ICD-10-PCS; 2019-03-03)
DX: K91.840 Postprocedural hemorrhage of a digestive system organ or structure following a digestive system procedure (principal); J18.9 Pneumonia, unspecified organism; D62 Acute posthemorrhagic anemia; J44.0 Chronic obstructive pulmonary disease with (acute) lower respiratory infection; J96.11 Chronic respiratory failure with hypoxia; I10 Essential (primary) hypertension; K21.9 Gastro-esophageal reflux disease without esophagitis; M25.50 Pain in unspecified joint; G89.29 Other chronic pain; F39 Unspecified mood [affective] disorder; I25.2 Old myocardial infarction; F51.04 Psychophysiologic insomnia; Z85.46 Personal history of malignant neoplasm of prostate; Z88.0 Allergy status to penicillin; Z99.81 Dependence on supplemental oxygen; Z79.899 Other long term (current) drug therapy; Z79.891 Long term (current) use of opiate analgesic; Z79.51 Long term (current) use of inhaled steroids
CPT/HCPCS: 36415; 36430; 71045; 78278; 80048; 80053; 83735; 84100; 85025; 85610; 85730; 86850; 86900; 86901; 86920; 94640; 94760; 99285-25; C9113; J0456; J0610; J0696; J1940; J2370; J2405; J2704; J2765; J3480; J7030; J7060; J7121

== ENCOUNTER 2019-10-20 10:42 | Emergency (ER) | payer MEDICARE, OTHER ==
[~2019-10-20] VITALS: Ht 180.3 cm; Wt 70.8 kg
--- OUTSIDE RECORDS SUMMARY | ~2019-10-20 | XMS | Encounter Summary ---
Demographics + + + | Address | [address] | | | [place] [address] | + + + | Home Phone | | + + + | Preferred Language | Unknown | + + + | Marital Status | | + + + | Oriental Orthodox Affiliation | 1076 | + + + | Race | White | + + + | Ethnic Group | Not or | + + + Author + + + | Author | [facility] | | | and [place] | + + + | Organization | [facility] | | | and [place] | + + + | Address | [...] Team Providers + +------+ + | Care Scale Shooter Name | Role | Phone | + +------+ + | Parviz Brar DO | PCP | | + +------+ + Reason for Visit +--------+ + | Reason | Comments | +--------+ + | COPD | | +--------+ + Encounter Details +--------+---------+ + + + | Date | Type | Department | Care Team | Description | +--------+---------+ + + + | 04/14/ | Office | [facility] [place] | [place], | COPD (chronic | | 2013 | Visit | PULMONARY [address] | Becca Segura MD | obstructive | | | | [place], | | pulmonary disease) | | | | [phone] | | (HCC) (Primary Dx); | | | | [phone] | | Nocturnal hypoxemia; | | | | | | Abnormal CT scan | +--------+---------+ + + + Social History + + + +--------+ + | Tobacco Use | Types | Packs/Day | Years | Date | | | | | Used | | + + + +--------+ + | Former Smoker | Cigarettes, Pipe | 0.3 | 20 | Quit: 09/22/2009 | + + + +--------+ + + + | Comments: Moked cigarettes for 20 years and smoked pipe for 57 years | + + + + +---------+ + | Alcohol Use | Drinks/Week | oz/Week | Comments | + + +---------+ + | No | | | | + + +---------+ + + + + | Sex Assigned at | Date Recorded | | | | + + + | Not on file | | + + + documented as of this encounter Last Filed Vital Signs + + + + + | Vital Sign | Reading | Time Taken | Comments | + + + + + | Blood Pressure | 146/88 | 04/14/2013 11:30 AM | | | | | PST | | + + + + + | Pulse | 86 | 04/14/2013 11:30 AM | | | | | PST | | + + + + + | Temperature | - | - | | + + + + + | Respiratory Rate | - | - | | + + + + + | Oxygen Saturation | 93% | 04/14/2013 11:30 AM | | | | | PST | | + + + + + | Inhaled Oxygen | - | - | | | Concentration | | | | + + + + + | Weight | 79.1 kg (174 lb 6.4 | 04/14/2013 11:30 AM | | | | oz) | PST | | + + + + + | Height | 182.9 cm (6') | 04/14/2013 11:30 AM | | | | | PST | | + + + + + | Body Mass Index | 23.65 | 04/14/2013 11:30 AM | | | | | PST | | + + + + + documented in this encounter Patient Instructions Patient Instructions Becca Castro MD - 04/14/2013 12:04 PM PSTIncrease oxygen at night to 2L based on test from October. Have walking oxygen test today. Stay on Flovent twice daily. Okay to decrease Atrovent to twice daily. documented in this encounter Progress Notes Becca Castro MD - 04/14/2013 11:49 AM PSTFormatting of this note might be differe nt from the original. Pulmonary Follow Up Note Becca Castro MD [place] [facility] [address] [place], [address] [facility] Diego Lucas is a 77 y.o. male patient of Parviz Brar here today for follow up of COPD. At their last visit, we had increased his Atrovent to 4 times daily scheduled. Since their last visit he feels like he has been doing pretty well. He notes he had some type of 4 day illness, with respiratory symptoms, that he recovered from without incident. He is currently on a regimen of Flovent 220mcg 1 puff two times daily and Atrovent 2 puffs four times daily. He does feel like this medication regimen is working for them. Currently he is using his rescue inhaler, Ventolin, 3 times a week. He returns today for routine foll ow up. Currently he is able to walk 10 blocks at his own pace on level ground. He is exercising re gularly. {He was not walking for a while due to snow, but is walking again now that the weat her is better. He does cough chronically, and does produce mucous, though this has decreased alot. He has not had hemoptysis. He has been evaluated for nocturnal oxygen and does use it. He is currently on 1.5 LPM at [facility]. He was lasted tested on 2L in October and looked good on this. Test was not availabl e at last visit. Past Medical History Past Medical History Diagnosis Date COPD (chronic obstructive pulmonary disease) (HCC) Peptic ulcer disease with upper GI bleed Benign prostatic hypertrophy Prostate cancer (HCC) s/p radiation treatment and on hormonal treatment with Lupron Osteoarthritis Heartburn Pulmonary nodules Cataracts, bilateral Pneumonia 05/2012 hospitalized [facility] Shoulder fracture 02/2012 Foot fracture 02/2012 Past Surgical History Past Surgical History Procedure Date Pancreas surgery 1972 Appendectomy Cyst removal from back Nasal hemorrhage control 05/2012 Cataract removal with implant 11/2011 Right Cataract removal 03/2013 Left Social History: History Social History Marital Status: Spouse Name: N/A Number of Children: N/A Years of Education: N/A Social History Main Topics Smoking status: Former Smoker -- 0.3 packs/day for 20 years Types: Cigarettes, Pipe Quit date: 09/22/2009 Smokeless tobacco: None Comment: Moked cigarettes for 20 years and smoked pipe for 57 years Alcohol Use: No Drug Use: No Sexually Active: None Other Topics Concern None Social History Narrative 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 Also expo sed to asbestos. His grandfather had tuberculosis, he is not sure if he has been tested. No pets at home. No other animal exposures.Grew up in [place]. Then lived in [place]. Then move d to [place]. In the service lived in [facility] and [place]. No recent travel. Allergies: Allergies Allergen Reactions Adhesive & Tape Paper tapes Medications: Outpatient Encounter Prescriptions as of 04/14/2013 Medication Sig Dispense Refill acetaminophen (TYLENOL) 325 mg tablet Take 650 mg by mouth every 4 hours as needed. amLODIPine (NORVASC) 5 mg tablet Take one tablet by mouth once daily. Ascorbic Acid (VITAMIN C) 250 MG tablet Take 250 mg by mouth Daily. aspirin (ASPIRIN LOW DOSE) 81 MG tablet Take 81 mg by mouth Daily. CETIRIZINE-PSEUDOEPHEDRINE ER PO Take by mouth Twice daily as needed. cholecalciferol (VITAMIN D-3) 1,000 units capsule Take 1,000 Units by mouth Daily. Cyanocobalamin (VITAMIN B-12 PO) Take by mouth Daily. ferrous sulfate 325 mg tablet Take 325 mg by mouth daily (with breakfast). fluticasone (FLOVENT HFA) 220 mcg/puff inhaler Inhale 1 puff into the lungs 2 times abhijeet ly. 1 Inhaler 3 folic acid (FOLVITE) 400 MCG tablet Take 400 mcg by mouth Daily. Hydrocodone-Acetaminophen 10-300 MG TABS as needed for pain ipratropium (ATROVENT HFA) 17 mcg/puff inhaler Inhale 2 puffs into the lungs 4 times da leslie. 1 Inhaler 11 omeprazole (PRILOSEC OTC) 20 mg tablet Take 20 mg by mouth Daily. oxygen Inhale 2 L into the lungs nightly. tamsulosin (FLOMAX) 0.4 mg CAPS Take 0.4 mg by mouth daily (after breakfast). venlafaxine (EFFEXOR XR) 37.5 mg 24 hr capsule Take 37.5 mg by mouth Daily. VENTOLIN HFA 108 (90 BASE) MCG/ACT inhaler INHALE 2 PUFFS EVERY 4 HOURS NEEDED FOR S HORTNESS OF BREATH 18 g 11 Review of Systems Constitutional: Denies fever, chills, sweats, and change in weight. Eyes: Had cataract surgery vision improved but feels scratchy. ENT: Denies earache, decreased hearing, nasal congestion, nosebleeds, sore throat, and merline rseness. Resp: See HPI. CV: Denies chest pain, syncope, and peripheral edema. 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 GI: Denies heartburn, nausea, vomiting, and abdominal pain. : Denies difficulty emptying bladder. Has nocturia one to two times a night. Objective BP 146/88 | Pulse 86 | Ht 1.829 m (6') | Wt 79.107 kg (174 lb 6.4 oz) | BMI 23.65 kg/m2 | S pO2 93% RA General Appearance: Alert, cooperative, no distress, appears stated age Head: Normocephalic, without obvious abnormality, atraumatic Eyes: PERRL, conjunctiva clear, no scleral icterus, EOM's intact Ears: Normal TM's, external auditory canals, slightly diminished acuity Nose: Nares normal, septum midline, mucosa normal Mouth: No oral lesions or exudate Neck: Supple, symmetrical, no adenopathy Lungs: No accessory muscle use, breath sounds are diminished bilaterally, no wheezes, aircraft systems technician ckles or rhonchi Chest Wall: No deformity Heart: Regular rate and rhythm, no murmur, rub or gallop Abdomen: Soft, non-tender, non-distended Extremities: No cyanosis, clubbing, or edema Pulses: Radial pulses 1+ and symmetric Skin: Warm and dry Lymph nodes: Cervical and supraclavicular nodes normal Data: Overnight oximetry was done on November 01, 2012 on 2L (he uses 1.5L) and was reviewed and interpreted in clinic today. It shows he spent 1 minute 44 seconds with a saturation less t gacria 88 %. Immunization History Administered Date(s) Administered INFLUENZA, PRESERVATIVE FREE IM 12/11/2012 Pneumococcal (Adult) 10/21/2010 Assessment 1. COPD (chronic obstructive pulmonary disease) (HCC) - Symptoms are improved. He is lookin g at increasing his exercise again and going to visit family in [place] for about a month. I encouraged him to do so, as he has had a rough year. 2. 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 Based on last overnight oximetry, we will increase to 2 L. I advised he should contact [facility] about having oxygen arranged at his destination for [employer] [facility] trip. 3. Abnormal CT scan - Last CT showed all acute changes has resolved to scarring. He had nod ules that had been stable since August 2010, or just over 2 years. Plan 1.Continue Flovent scheduled. 2.Decrease Atrovent to twice daily scheduled, and he can use two more times a day as needed . 3.Increase oxygen at night to 2L. 4. Arrange for oxygen at destination for [employer] trip. He was advised to call if new pulmonary symptoms were to develop. Return to clinic in 3 months, or sooner with concerns. CC: Parviz Brar Portions of this report were transcribed using voice recognition software. Every effort wa s made to ensure accuracy; however, inadvertent computerized steel molder errors may be pre sent. documented in t his encounter Procedure Notes ONBASE SCAN WAMT - 04/14/2013 12:00 AM PSTAssociated Order(s): DIAGNOSTIC REPORT - EXTERNAL SCAN documented in this enco unter Plan of Treatment +--------+---------+ + + + | Date | Type | Specialty | Care Team | Description | +--------+---------+ + + + | 12/26/ | Office | Urology | Jorje Rutledge | | | 2020 | Visit | | MD [address] | | | | | | [address] | | | | | | [place] [address] | | | | | | [phone] | | | | | | | | +--------+---------+ + + + + + +--------+ + + | Name | Type | Priori | Associated Diagnoses | Order Schedule | | | | ty | | | + + +--------+ + + | Oxygen Order | Respiratory | Routin | COPD (chronic | Expected: | | | Care | e | obstructive | 04/14/2013, Expires: | | | | | pulmonary disease) | 04/14/2014 | | | | | (HCC) | | + + +--------+ + + | Ambulating oximetry, | Respiratory | Routin | COPD (chronic | Expected: | | clinic, | Care | e | obstructive | 04/14/2013, Expires: | | qualification | | | pulmonary disease) | 04/14/2014 | | | | | (HCC) | | + + +--------+ + + documented as of this encounter Procedures + +--------+ + + + | Procedure Name | Priori | Date/Time | Associated Diagnosis | Comments | | | ty | | | | + +--------+ + + + | DIAGNOSTIC REPORT - | | 04/14/2013 | | | | EXTERNAL SCAN | | 12:00 AM | | | | | | PST | | | + +--------+ + + + documented in this encounter Visit Diagnoses + + | Diagnosis | + + | COPD (chronic obstructive pulmonary disease) (HCC) - Primary Chronic airway | | obstruction, not elsewhere classified | + + | Nocturnal hypoxemia Hypoxemia | + + | Abnormal CT scan Other nonspecific (abnormal) findings on radiological and other | | examinations of body structure | + + documented in this encounter"
--- OUTSIDE RECORDS SUMMARY | ~2019-10-20 | XMS | Encounter Summary ---
Demographics + + + | Address | [address] | | | [place] [address] | + + + | Home Phone | | + + + | Preferred Language | Unknown | + + + | Marital Status | | + + + | Holiness Affiliation | 1076 | + + + | Race | White | + + + | Ethnic Group | Not or | + + + Author + + + | Author | [facility] | | | and [place] | + + + | Organization | [facility] | | | [...] Team Providers + +------+ + | Care Eyeglass Maker Name | Role | Phone | + +------+ + | Parviz Brar DO | PCP | | + +------+ + Reason for Referral Evaluate & Treat (Routine) +--------+ + + + + + | Status | Reason | Specialty | Diagnoses / | Referred By | Referred To | | | | | Procedures | Contact | Contact | +--------+ + + + + + | Closed | Specialty | Gastroenterol | Diagnoses | Cass, | Cass, | | | Services | ogy | | Marc | Marc Liu, | | | Required | | Gastrointest | MD Noe | [address] | | | | inal | [address] | | | | | hemorrhage, | [address] [place] | [place], | | | | | unspecified | [place], [place] | [place] [address] | | | | | gastrointest | [address] | Phone: | | | | | inal | Phone: | [phone] | | | | | hemorrhage | [phone] | Fax: | | | | | type | Fax: | [phone] | | | | | Procedures | [phone] | | | | | | SC GI IMAG | | | | | | | INTRALUMINAL | | | | | | | | | | | | | | ESOPHAGUS-IL | | | | | | | EUM W/I&R | | | +--------+ + + + + + Diagnostic/Screening (Routine) +--------+--------+ + + + + | Status | Reason | Specialty | Diagnoses / | Referred By | Referred To | | | | | Procedures | Contact | Contact | +--------+--------+ + + + + | Closed | | | Diagnoses | Cass, | [facility] | | | | | | Marc | [facility] | | | | | Gastrointest | MD Noe | HOSPITAL | | | | | inal | [address] | [address] | | | | | hemorrhage, | [address] [place] | [address]VE | | | | | unspecified | [place], [place] | [place], [place] | | | | | gastrointest | [address] | [address] | | | | | inal | Phone: | Phone: | | | | | hemorrhage | [phone] | [phone] | | | | | type | Fax: | Fax: | | | | | Procedures | [phone] | [phone] | | | | | CT | | | | | | | Enterography | | | | | | | CHG CT | | | | | | | SCAN,ABDOMEN | | | | | | | T AND | | | | | | | PELVIS,W | | | | | | | CONTRAST | | | +--------+--------+ + + + + Reason for Visit +--------+ + | Reason | Comments | +--------+ + | Other | gastrointestinal hemorrage | +--------+ + Evaluate & Treat (Routine) +--------+--------+ + + + + | Status | Reason | Specialty | Diagnoses / | Referred By | Referred To | | | | | Procedures | Contact | Contact | +--------+--------+ + + + + | Closed | | Gastroenterol | Diagnoses | Zonia, | Alphonso, | | | | ogy | | Parviz Choi, | Froylan Choi MD | | | | | Gastrointest | DO [address] | [address], | | | | | inal | [address] | [address] | | | | | hemorrhage, | [place], [place] | [place], | | | | | unspecified | [address] | [place] [address] | | | | | Procedures | Phone: | Phone: | | | | | Office | [phone] | [phone] | | | | | Visit | Fax: | Fax: | | | | | | [phone] | [phone] | +--------+--------+ + + + + Encounter Details +--------+---------+ + + + | Date | Type | Department | Care Team | Description | +--------+---------+ + + + | 04/21/ | Office | [facility] | Marc Odell | Gastrointestinal | | 2018 | Visit | GASTROENTEROLOGY | MD Noe [address] | hemorrhage, | | | | [address] | [address] [place] | unspecified | | | | [address] [place], [place] | [place] [address] | gastrointestinal | | | | [address] | [phone] | hemorrhage type | | | | [phone] | | (Primary Dx); | | | | | | Gastrointestinal | | | | | | hemorrhage with | | | | | | melena | +--------+---------+ + + + Social History [...] + + + | Blood Pressure | 140/80 | 04/21/2017 3:38 PM | | | | | PST | | + + + + + | Pulse | 81 | 04/21/2017 3:38 PM | | | | | PST | | + + + + + | Temperature | 36.6 C (97.8 F) | 04/21/2017 3:38 PM | | | | | PST | | + + + + + | Respiratory Rate | 14 | 04/21/2017 3:38 PM | | | | | PST | | + + + + + | Oxygen Saturation | 95% | 04/21/2017 3:38 PM | | | | | PST | | + + + + + | Inhaled Oxygen | - | - | | | Concentration | | | | + + + + + | Weight | 79.2 kg (174 lb 9.7 | 04/21/2017 3:38 PM | | | | oz) | PST | | + + + + + | Height | 177.8 cm (5' 10") | 04/21/2017 3:38 PM | | | | | PST | | + + + + + | Body Mass Index | 25.05 | 04/21/2017 3:38 PM | | | | | PST | | + + + + + documented in this encounter Progress Notes Marc Odell MD - 04/21/2017 3:30 PM PST Outpatient Gastroenterology Consult Note Date of Office Visit: 04/22/17 Referring Provider: Parviz Brar [address] [place] [id number] Providing Physician: Marc Odell MD. Chief Complaint: Other (gastrointestinal hemorrage) History of Present Illness Diego Lucas is a 81 y.o. male with a history of prostate cancer, CAD, COPD, and recur rent GI hemorrhage who presents for further evaluation of his recurrent GI bleeds. His most recent bleed was in February 2017, for which he was hospitalized at [facility]. H e had developed painless melena, and presented to the ER for this. He was found to have a Hg b of 6.8. He required PRBC transfusion, and underwent an EGD and colonoscopy which were nega tive. He reports that he has had no further melena since that admission, and says that he feels w ell. He says that he will go months between bleeding episodes. He underwent a video capsule endoscopy here in September, when he wasn't having melena. The st udy was negative. He had another colonoscopy in 2014 and 2016. He also had an EGD in 2016. He reports that the cause for his bleeding has never been found. He denies any abdominal pain. He reports that his weight is stable. He denies any NSAID use . Endoscopic History He also had an EGD in February which was negative for a bleeding source Pill cam done in Sep 2016 was negative for a bleeding source Review of Systems ROS A 12 point review of systems was conducted with the patient. Pertinent positives and negati ves listed per HPI Problem List Patient Active Problem List Diagnosis COPD (chronic obstructive pulmonary disease) Nocturnal hypoxemia due to emphysema Benign prostatic hypertrophy Osteoarthritis Heartburn Pulmonary nodules SVT (supraventricular tachycardia) Heart murmur Hypertension Anemia Prostate cancer Preventative health care Epistaxis Chronic respiratory failure with hypoxia History of gastroesophageal reflux (GERD) History of tobacco use, presenting hazards to health Past Medical History Past Medical History: Diagnosis Date Actinic keratosis of scalp Anemia Benign prostatic hypertrophy Bereavement without complication C. 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 Wilder for ablation TIA (transient ischemic attack) SEVERAL. LAST TIME 2012.NO RESIDUAL; CT SCAN/ ANGIO IN PAST Vasovagal syncope Past Surgical History Past Surgical History: Procedure Laterality Date ABLATION OF DYSRHYTHMIC FOCUS 03/19/2014 Laterality: N/A; Surgeon: Jennifer Wilder MD; Location: [facility] ELECTROPHYSIOLOGY ANGIOGRAM EARLY 1979 FOR TIA HISTORY APPENDECTOMY CATARACT REMOVAL 03/2013 Left CATARACT REMOVAL WITH IMPLANT 11/2011 Right Catheter ablation [place] COLONOSCOPY 2016 [facility]. Arellano COLONOSCOPY 03/18/2017 Postoperative Diagnosis: Minimal to moderate internal and external hemorrhoid. 03/18/2017 Conrado Arellano MD [facility] CYST REMOVAL from back EGD 01/24/2016 Dieulafoy's lesion EGD AND COLONOSCOPY 02/06/2015 Dr. Arellano IRRADIATION 2008 Leuprolide acetate injections x7 LUMBAR SPINE SURGERY 1987, 1989 Discectomy X2, Dr. Santo NASAL HEMORRHAGE CONTROL 05/2012 PANCREAS SURGERY 1973 Family History Family History Problem Relation Age of Onset Stroke Mother Stroke Father Other (see comment) Father Gout Alcohol abuse Father Hypertension Son Hypertension Daughter Other (see comment) Daughter DVT Other (see comment) Other Family History of Cerebral artery aneurysm Prostate cancer Neg Hx Social History Social History Social History Marital status: Spouse name: N/A Number of children: N/A Years of education: N/A Social History Main Topics Smoking status: Former Smoker Packs/day: 0.30 Years: 20.00 Types: Cigarettes, Pipe Quit date: 09/22/2009 Smokeless tobacco: Never Used Comment: quit pipe 2010 Alcohol use No Drug use: No Sexual activity: Not Asked Other Topics Concern None Social History Narrative 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 Also expo sed to asbestos. His grandfather had tuberculosis, he is not sure if he has been tested. No pets at home. No other animal exposures. Grew up in [place]. Then lived in [place]. Then moved to [place]. In the service lived i [facility] and [place]. No recent travel. Allergies Allergies Allergen Reactions Ipratropium Tangier Hfa Other (See Comments) Reaction: Cough Penicillins Not Noted Intolerance No active intolerances/contraindications Medications Current Outpatient Prescriptions on File Prior to Visit Medication Sig Dispense Refill albuterol (PROAIR HFA) [...] g by mouth Daily. Respiratory Therapy Supplies [facility] Please provide an O2 concentrator while Diego is visiti for nocturnal O2 at 2 l/m. Dx: COPD, Nocturnal hypoxemia 1 each 0 sucralfate (CARAFATE) 1 g tablet Take 1 g by mouth 4 times daily. tamsulosin (FLOMAX) 0.4 mg CAPS TAKE 2 CAPSULES BY MOUTH ONCE DAILY NEEDED 60 capsul e 5 temazepam (RESTORIL) 15 mg capsule Take by mouth. triamcinolone (KENALOG) 0.1% cream ZAMZAM EXT AA BID FOR 2 TO 4 WKS 1 venlafaxine (EFFEXOR XR) 37.5 mg 24 hr capsule Take 37.5 mg by mouth Daily. zolpidem (AMBIEN) 5 mg tablet Take 5 mg by mouth nightly as needed. SLEEP No current facility-administered medications on file prior to visit. Physical Exam Vitals:BP 140/80 | Pulse 81 | Temp 36.6 C (97.8 F) (Temporal) | Resp 14 | Ht 1.778 m (5' 10") | Wt 79.2 kg (174 lb 9.7 oz) | SpO2 95% | BMI 25.05 kg/m General: This is a well-developed,well-nurished male in no apparent distress, alert and cyndy ented x 3. Head: Reveals normocephalic, atraumatic Eyes: Sclera anicteric, normal conjunctiva Mouth: Oropharynx is clear without obstruction. No oral lesion. Lungs: Clear to auscultation without rales or wheezes. Cardiac: Reveals regular rate and rhythm with normal S1 and S2 and no murmurs, rubs or gall ops. Abdomen: Soft and nontender without masses or organmegaly. No guarding or rebound pain. No rmoactive bowel sounds. Extremities: Without cyanosis, clubbing or edema. Neuro: Awake, alert, oriented x3. Skin: Warm and dry, no erythematous rash. Labs Lab Results Component Value Date WBC 5.4 03/19/2014 HGB 11.0 (L) 03/19/2014 HCT 33.7 (L) 03/19/2014 MCV 86.0 03/19/2014 PLT 324 03/19/2014 Chemistry Component Value Date/Time NA 139 03/19/2014 0618 K 3.9 03/19/2014 0618 CL 109 03/19/2014 0618 CO2 24 03/19/2014 0618 GLU 97 03/19/2014 0618 BUN 16 03/19/2014 0618 ANIONGAP 12 03/18/2017 Component Value Date/Time CALCIUM 8.9 03/19/2014 0618 No results found for: IRON, TIBC, FERRITIN Imaging No recent abdominal imaging Assessment and Plan Mr Lucas is a pleasant 81 year old man with a history of obscure and probable small bow el bleeding. He has had 2 negative EGDs and a negative colonoscopy in the past year, in addition to a ne gative pillcam. His most recent endoscopy evaluation in February was done in the context of a ctive bleeding, and both studies were negative. The Pillcam done in September was not done in t he context of active bleeding. He has never had a push enteroscopy or balloon enteroscopy. He is presently not bleeding. He says he feels well. Recommendations: -obtain a CT enterography to evaluate for a structural small bowel lesion, this can be done in [place] -if this is negative, then I would recommend that he repeat a pillcam study done in the set ting or around the time of bleeding. This would increase the yield of the test. He was instr ucted to call the clinic to arrange a pillcam if he has more bleeding. ICD-10-CM ICD-9-CM 1. Gastrointestinal hemorrhage, unspecified gastrointestinal hemorrhage type K92.[address] Enterography Ambulatory referral to Gastroenterology ([facility]) Follow up: Return if symptoms worsen or fail to improve. CC: Parviz Brar [address] [facility] [place] [address] [place] [address] Portions of this chart may have been created with [employer] voice recognition software. Occasi onal wrong-word or sound-alike substitutions may have occurred due to the inherent mi itations of voice recognition software. Please read the chart carefully and recognize, using context, where these substitutions have occurred documented in this encounter Plan of Treatment +--------+---------+ + + + | Date | Type | Specialty | Care Team | Description | +--------+---------+ + + + | 12/26/ | Office | Urology | Jorje Rutledge | | | 2019 | Visit | | [address] | | | | | | [place] | | | | | | [place] [address] | | | | | | [phone] | | | | | | | | +--------+---------+ + + + + +---------+--------+ + + | Name | Type | Priori | Associated Diagnoses | Order Schedule | | | | ty | | | + +---------+--------+ + + | CT Enterography | Imaging | Routin | Gastrointestinal | Expected: | | | | e | hemorrhage, | 04/21/2017, Expires: | | | | | unspecified | 04/21/2018 | | | | | gastrointestinal | | | | | | hemorrhage type | | + +---------+--------+ + + + + +--------+ + + | Name | Type | Priori | Associated Diagnoses | Order Schedule | | | | ty | | | + + +--------+ + + | Ambulatory referral | Outpatient | Routin | Gastrointestinal | 1 Occurrences | | to Gastroenterology | Referral | e | hemorrhage, | starting 04/21/2017 | | ([facility]) | | | unspecified | until 04/21/2018 | | | | | gastrointestinal | | | | | | hemorrhage type | | + + +--------+ + + documented as of this encounter Procedures + +--------+ + + + | Procedure Name | Priori | Date/Time | Associated Diagnosis | Comments | | | ty | | | | + +--------+ + + + | LABS - EXTERNAL SCAN | | 05/28/2017 | | Results for this | | | | 12:00 AM | | procedure are in the | | | | PDT | | results section. | + +--------+ + + + | IMAGING REPORT - | | 04/28/2017 | | Results for this | | EXTERNAL SCAN | | 12:00 AM | | procedure are in the | | | | PST | | results section. | + +--------+ + + + | DIAGNOSTIC REPORT - | | 03/18/2017 | | Results for this | | EXTERNAL SCAN | | 12:00 AM | | procedure are in the | | | | PST | | results section. | + +--------+ + + + | DIAGNOSTIC REPORT - | | 03/16/2017 | | Results for this | | EXTERNAL SCAN | | 12:00 AM | | procedure are in the | | | | PST | | results section. | + +--------+ + + + documented in this encounter Results LABS - EXTERNAL SCAN (05/28/2017 12:00 AM PDT) + + + | Narrative | Performed At | + + + | Ordered by an | | | unspecified provider. | | + + + IMAGING REPORT - EXTERNAL SCAN (04/28/2017 12:00 AM PST) + + + | Narrative | Performed At | + + + | Ordered by an | | | unspecified provider. | | + + + DIAGNOSTIC REPORT - EXTERNAL SCAN (03/18/2017 12:00 AM PST) + + + | Narrative | Performed At | + + + | Ordered by an | | | unspecified provider. | | + + + DIAGNOSTIC REPORT - EXTERNAL SCAN (03/16/2017 12:00 AM PST) + + + | Narrative | Performed At | + + + | Ordered by an | | | unspecified provider. | | + + + documented in this encounter Visit Diagnoses + + | Diagnosis | + + | Gastrointestinal hemorrhage, unspecified gastrointestinal hemorrhage type - Primary | + + | Gastrointestinal hemorrhage with melena | + + documented in this encounter
--- OUTSIDE RECORDS SUMMARY | ~2019-10-20 | XMS | Encounter Summary ---
Demographics + + + | Address | [address] | | | [place] [address] | + + + | Home Phone | | + + + | Preferred Language | Unknown | + + + | Marital Status | | + + + | Adventism Affiliation | 1076 | + + + | Race | White | + + + | Ethnic Group | Not or | + + + Author + + + | Author | [facility] | | | and [place] | + + + | Organization | [facility] | | [...] Team Providers + +------+ + | Care Pharmacy Operations Specialist Name | Role | Phone | + +------+ + | Jason Read | PCP | | | MD | | | + +------+ + Reason for Visit +--------+--------+ + | Reason | Onset | Comments | | | Date | | +--------+--------+ + | Other | 05/23/ | Labs | | | 2019 | | +--------+--------+ + Encounter Details +--------+ + + + + | Date | Type | Department | Care Team | Description | +--------+ + + + + | 05/23/ | Telephone | [facility] | Jorje Rutledge | Other (Labs) | | 2019 | | [address] | [address] | | | | | [place] | [place] | | | | | [address] | [place] [address] | | | | | [phone] | | | | | | | [...] + + documented as of this encounter Miscellaneous Notes Telephone Encounter - Sanam Waddell Medical Assistant - 05/25/2018 3:11 PM PDTPatien t will go in tomorrow. Electronically signed by Christ Lilly at 04/2018 3:11 PM PDTTelephone Encounter - Sanam Waddell Medical Assistant - 05/23/2018 11:22 AM PDTNotified patient labs were needed prior to appt on 05/30/18. Patient would like or ders sent to [facility]. Orders were faxed. documented in this encounter Plan of Treatment +--------+---------+ + + + | Date | Type | Specialty | Care Team | Description | +--------+---------+ + + + | 12/26/ | Office | Urology | Jorje Rutledge | | | 2019 | Visit | | [address] | | | | | | [address] [address] | | | | | | [place] [address] | | | | | | [phone] | | | | | | | | +--------+---------+ + + + documented as of this encounter Visit Diagnoses Not on filedocumented in this encounter"
--- OUTSIDE RECORDS SUMMARY | ~2019-10-20 | XMS | Encounter Summary ---
Demographics + + + | Address | [address] | | | [place] [address] | + + + | Home Phone | | + + + | Preferred Language | Unknown | + + + | Marital Status | | + + + | Advent Affiliation | 1076 | + + + | Race | White | + + + | Ethnic Group | Not or | + + + Author + + + | Author | [facility] | | | and [place] | + + + | Organization | [facility] | | [...] Team Providers + +------+ + | Care Shiatsu Therapist Name | Role | Phone | + +------+ + | Jason Read | PCP | | | MD | | | + +------+ + Reason for Visit +--------+--------+ + | Reason | Onset | Comments | | | Date | | +--------+--------+ + | Other | 07/30/ | Labs | | | 2020 | | +--------+--------+ + Encounter Details +--------+ + + + + | Date | Type | Department | Care Team | Description | +--------+ + + + + | 07/30/ | Telephone | [facility] | Jorje Rutledge | Other (Labs) | | 2020 | | [address] | [address] | | | | | [place] | [place] | | | | | [address] | [place] [address] | | | | | [phone] | [phone] | | | | | | | [...] Encounter - Sanam Waddell Medical Assistant - 08/07/2019 1:26 PM PDTCT res ults received. Sent order to [facility] to get images pushed to [employer]. Electronic ally signed by Christ Lilly at 08/07/2019 1:26 PM PDTTelephone Enco erick - Sanam Waddell Medical Assistant - 07/31/2019 2:28 PM [facility]TCindy [facility] stating patient needed a BMP lab prior to CT scan. Notified tracy landers had lab orders and I could fax them over to [facility]. BMP, PSA, Testosterone labs faxed to Fax#[phone]. documented in this encounter Plan of Treatment +--------+---------+ + + + | Date | Type | Specialty | Care Team | Description | +--------+---------+ + + + | 12/26/ | Office | Urology | Jorje Rutledge | | | 2019 | Visit | | [address] | | | | | | [place] | | | | | | [place] [address] | | | | | | [phone] | | | | | | | | +--------+---------+ + + + documented as of this encounter Visit Diagnoses Not on filedocumented in this encounter"
--- OUTSIDE RECORDS SUMMARY | ~2019-10-20 | XMS | Encounter Summary ---
Demographics + + + | Address | [address] | | | [place] [address] | + + + | Home Phone | | + + + | Preferred Language | Unknown | + + + | Marital Status | | + + + | Taoist Affiliation | 1076 | + + + | Race | White | + + + | Ethnic Group | Not or | + + + Author + + + | Author | [facility] | | | and [place] | + + + | Organization | [facility] | | [...] Team Providers + +------+ + | Care Cafeteria Aide Name | Role | Phone | + +------+ + PCP | Unavailable | + +------+ + Reason for Visit +--------+--------+ + | Reason | Onset | Comments | | | Date | | +--------+--------+ + | Other | 12/21/ | | | | 2011 | | +--------+--------+ + Encounter Details +--------+ + + + + | Date | Type | Department | Care Team | Description | +--------+ + + + + | 12/21/ | Telephone | [facility] [place] | Rupa Watt, | Other | | 2011 | | PULMONARY [address] | RN | | | | | [place], | | | | | | [place] [address] | | | | | | [phone] | | | +--------+ + + + [...] this encounter Miscellaneous Notes Telephone Encounter - Rupa Watt RN - 12/22/2011 2:57 PM PDTThis message was relay ed to Diego. elephone Encounter - Becca Castro MD - 12/22/2011 1:06 PM PDTFor this, I would have him go to urgent care or his PCP and have someone look at his throat to make sure nothing is being overlooked. It may be a side effect of the Flovent, but he has failed almost every inhaler he has been given and we have almost no options left for treating his lung disease. Electron ically signed by Becca Castro MD at 12/22/2011 1:07 PM PDTTelephone Encounter - Rupa Figueroa RN - 12/22/2011 12:14 PM PDTRex called stating that he's had a sore throat for about 3 weeks. He did have a cold around the first of the month. No fever. He has increa sed cough productive of whitish yellow mucus. He is not short of breath. Diego thought that hilaria hernandez the sore throat was due to the Flovent but he does not see any white patches in his thro at and has been on the Flovent for quite awhile. documented in this encounter Plan of Treatment +--------+---------+ + + + | Date | Type | Specialty | Care Team | Description | +--------+---------+ + + + | 12/26/ | Office | Urology | Jorje Rutledge | | | 2020 | Visit | | [address] | | | | | | [address] | | | | | | [place] [address] | | | | | | [phone] | | | | | | | | +--------+---------+ + + + documented as of this encounter Visit Diagnoses Not on filedocumented in this encounter"
--- OUTSIDE RECORDS SUMMARY | ~2019-10-20 | XMS | Encounter Summary ---
Demographics + + + | Address | [address] | | | [place] [address] | + + + | Home Phone | | + + + | Preferred Language | Unknown | + + + | Marital Status | | + + + | Methodist Affiliation | PRE | + + + | Race | White | + + + | Ethnic Group | Not or | + + + Author + + + | Author | [facility] | + + + | Organization | [facility] | + + + | Address | Unknown | + + + | Phone | Unavailable | + + + Support + + +---------+ + | Name | Relationship | Address | Phone | + + +---------+ + | Andrez Lucas | ECON | Unknown | Unavailable | + + +---------+ + Care Team Providers + +------+ + | Care Gallery Assistant Name | Role | Phone | + +------+ + | Parviz Brar DO | PCP | | + +------+ + Reason for Visit + + + | Reason | Comments | + + + | Follow-up visit | | + + + | Nose bleed [...] | [address] | [address] | | | | | | Elio Jeong | [address] | | | | | | Nikita ALBARADO | [facility] | | | | | | Hospital | Health and | | | | | | [place], [place] | Healing, | | | | | | [address] | [address] | | | | | | Phone: | [place], [place] | | | | | | [phone] | [address] | | | | | | | Phone: | | | | | | | [phone] | | | | | | | Fax: | | | | | | | [phone] | +--------+--------+ + + + + Encounter Details +--------+---------+ + + + | Date | Type | Department | Care Team | Description | +--------+---------+ + + + | 07/04/ | Office | Otolaryngology | Desiree Easton, | Epistaxis (Primary | | 2012 | Visit | Laryngology Services | MD | Dx) | | | | at [facility] [address] | | | | | | [facility] | | | | | | Health and Healing, | | | | | | [address] | | | | | | [place], [place] | | | | | | [address] | | | | | | [phone] | | | +--------+---------+ + + + [...] Pressure | 131/81 | 07/04/2012 9:55 AM | | | | | PDT | | + + + + + | Pulse | 102 | 07/04/2012 9:55 AM | | | | | PDT [...] (151 lb 4.8 | 07/04/2012 9:55 AM | | | | oz) | PDT | | + + + + + | Height | - | - | | + + + + + | Body Mass Index | 20.52 | 06/11/2012 4:18 PM | | | | | PDT | | + + + + + documented in this encounter Patient Instructions Patient Instructions Elma Mckeon MA - 07/04/2012 9:54 AM PDTThank you for choosing [facility] Department of Otolaryngology for your health care needs. If you need to speak to an ENT physician after normal business hours, please call [phone] and ask to have the ENT phys ician medication reconciliation technician paged. documented in this encounter Progress Notes Desiree Easton MD - 07/04/2012 10:08 AM PDTFormatting of this note might be different fr om the original. PATIENT NAME: Diego Lucas MR#: [id number] : 1935 REFERRING PROVIDER: No Referring Provider Per Patient NO REFERRING PROVIDER PER PT PRIMARY CARE PROVIDER: Parviz Brar DO CLINIC: [facility] REASON FOR FOLLOW-UP: Chief Complaint Patient presents with Follow-up visit Nose bleed HPI: Diego Lucas is a 76 y.o. male who presents to the [facility] with epistaxis. He had refractory epistaxis after IR embolization of his bilat eral internal maxillary arteries on 10 June 2012. He subsequently had a right anterior and posterior ethmoid ligation and right sphenopalatine artery ligation on 12 June 2012. He was discharged from the hospital on 14 June 2012 after having no further bleeding issues for 4 8 hours. At his last visit, his merocel pack was removed. Mr. Lucas returns for his second post-operative visit. He has been using his Farelogix as directed. He has had no further issues with bleeding. He was about to be released fr om the [facility], but was held for some additional cardiac testing. He hopes to return h ome to [place] soon. PMHx: Past Medical History Diagnosis Date Pneumonia COPD Gastroesophageal reflux Benign hypertrophy of prostate Unspecified essential hypertension SURGHx: Past Surgical History Procedure Laterality Date Back surgery ALLERGIES: Allergies Allergen Reactions Paper First Aid [...] UME UNTIL CLEARED AT FOLLOW UP APPOINTMENT cetirizine 5 mg Oral tablet Take 5 [...] severe pain. oxymetazoline 0.05 % Nasal Aerosol, Rawlings Instill 2 Sprays into each nostril every six hours as needed (Epistaxis). Use for only 3 days. polyethylene glycol 17 gram/dose Oral Powder Take 17 g by mouth once daily. sodium chloride 0.65 % Nasal Aerosol, Rawlings Instill 2 Sprays in nose every two hours wh ile awake. tamsulosin 0.4 mg Oral capsule,extended release 24hr Take 0.4 mg by mouth once daily in the evening. Indications: BENIGN PROSTATIC HYPERTROPHY temazepam 15 mg Oral capsule Take 15 mg by mouth once daily at bedtime as needed. No current facility-administered medications for this visit. LAST WEIGHTS: Wt Readings from Last 3 Encounters: 07/04/12 68.629 kg (151 lb 4.8 oz) 06/20/12 68.947 kg (152 lb) 06/14/12 68.5 kg (151 lb 0.2 oz) EXAMINATION: Blood pressure 131/81, pulse 102, weight 68.629 kg (151 lb 4.8 oz). GEN: At the time of my exam, the patient was alert and oriented and in no apparent distress. NEURO: Cranial nerves two through twelve were intact and symmetric. EYE: No scleral icterus. Pupils round and reactive. Extraocular eye movements intact. Visual acuity intact to finger counting. Visual mckeon Intact. Peterson incision almost completely healed. EAR: Pinna normal. External auditory canals free of significant cerumen or debris. Tympanic membranes translucent with out effusion, retraction or perforation. NOSE: Anterior rhinoscopy remarkable for dried crust in right nasal passage that was remove d. Left anterior nose unremarkable. ORAL CAVITY: Mucosa pink and moist. No mucosal masses or lesions. Dentition in poor repair. Tongue mobile. OROPHARYNX: Mucosa pink and moist. No mucosal masses or lesions. Palate elevation symmetric. No evidence of blood in oropharynx. NECK: Neck soft and supple. No appreciable lymphadenopathy. ASSESSMENT: Epistaxis s/p bilateral VANIA ligation and right anterior/posterior ethmoid and s phenopalatine ligation PLAN: 1. Patient is doing well. I have recommended that he continue to use [place] Rawlings 2-3 times daily. He may resume his usual physical activities at this time. 2. Follow up as needed. DESIREE EASTON MD documented in this e ncounter Plan of Treatment Not on filedocumented as of this encounter Visit Diagnoses + + | Diagnosis | + + | Epistaxis - Primary | + + documented in this encounter"
--- OUTSIDE RECORDS SUMMARY | ~2019-10-20 | XMS | Encounter Summary ---
Demographics + + + | Address | [address] | | | [place] [address] | + + + | Home Phone | | + + + | Preferred Language | Unknown | + + + | Marital Status | | + + + | Jew Affiliation | 1076 | + + + | Race | White | + + + | Ethnic Group | Not or | + + + Author + + + | Author | [facility] | | | and [place] | + + + | Organization | [facility] | | | and [...] Team Providers + +------+ + | Care Linotype Operator Name | Role | Phone | + +------+ + | Parviz Brar DO | PCP | | + +------+ + Reason for Visit +---------+--------+ + | Reason | Onset | Comments | | | Date | | +---------+--------+ + | Results | 10/21/ | | | | 2016 | | +---------+--------+ + Encounter Details +--------+ + + + + | Date | Type | Department | Care Team | Description | +--------+ + + + + | 10/21/ | Telephone | [facility] | Froylan Werner MD | Results | | 2016 | | GASTROENTEROLOGY | [address], [place] | | | | | [address] [facility] | [address] [place], [place] | | | | | [address] [place], [place] | [address] | | | | | [address] | | | | | | [phone] | | | +--------+ + + + [...] this encounter Miscellaneous Notes Telephone Encounter - Roxana Lowe RN - 10/22/2016 10:39 AM PDTSpoke with patient and gave him preliminary report on PillCam. PillCam was in the colon at the end of the y. Dark streaks of fluid noted in the stomach. Small bowel appears mostly normal with a fe w minor erosions. Dr. Werner will review the study tomorrow and we will call him with his re commendations. el ephone Encounter - Roxana Lowe RN - 10/21/2016 1:40 PM PDTLeft message asking pat leesa to call for results of Pillcam. Electronically signed by Roxana Lowe RN at 1:41 PM PDTdocumented in this encounter Plan of Treatment +--------+---------+ + + + | Date | Type | Specialty | Care Team | Description | +--------+---------+ + + + | 12/26/ | Office | Urology | Rutledge, Gene | | | 2020 | Visit | | [address] | | | | | | [place] | | | | | | [place] [address] | | | | | | [phone] | | | | | | | | +--------+---------+ + + + documented as of this encounter Visit Diagnoses Not on filedocumented in this encounter"
--- OUTSIDE RECORDS SUMMARY | ~2019-10-20 | XMS | Encounter Summary ---
Demographics + + + | Address | [address] | | | [place] [address] | + + + | Home Phone | | + + + | Preferred Language | Unknown | + + + | Marital Status | | + + + | Shinto Affiliation | 1076 | + + + | Race | White | + + + | Ethnic Group | Not or | + + + Author + + + | Author | [facility] | | | and [place] | + + + | Organization | [facility] | | | and [...] Team Providers + +------+ + | Care Hydraulic Strainer Operator Name | Role | Phone | + +------+ + | Jason Read | PCP | | | MD | | | + +------+ + Reason for Visit +--------+--------+ + | Reason | Onset | Comments | | | Date | | +--------+--------+ + | Other | 06/05/ | Labs | | | 2020 | | +--------+--------+ + Encounter Details +--------+ + + + + | Date | Type | Department | Care Team | Description | +--------+ + + + + | 06/05/ | Telephone | [facility] | Jorje Rutledge | Other (Labs) | | 2020 | | [address] | [address] | | | | | [place] | [place] | | | | | [address] | [place] [address] | | | | | [phone] | [phone] | | | | | | | [...] Encounter - Sanam Waddell Medical Assistant - 06/12/2019 2:18 PM PDTCalled [facility].Requested results. Results received. elephone Encounter - Sanam Waddell Medica l Ice Grinder - 06/07/2019 1:59 PM PDTOrders faxed to [facility] to fax #. elephone Encounter - Alicia Maier - 06/07/2019 8:56 AM PDTPt called back and would like blood work sent to [facility]. He will get blood work done this week and he agreed to telephonic visit. e lephone Encounter - Sanam Waddell Medical Assistant - 06/06/2019 2:54 PM PDTLeft mess age to call back. Patient needs BMP, PSA labs prior to appt 06/21/19. Phone visit available i f no new concerns or urology related pain. Where would he like to complete blood work? Elect ronically signed by Christ Lilly at 06/06/2019 2:55 PM PDTdocumente d in this encounter Plan of Treatment +--------+---------+ + + + | Date | Type | Specialty | Care Team | Description | +--------+---------+ + + + | 12/26/ | Office | Urology | Jorje Rutledge | | | 2020 | Visit | | [address] | | | | | | [place] | | | | | | [place] [address] | | | | | | [phone] | | | | | | | | +--------+---------+ + + + documented as of this encounter Visit Diagnoses Not on filedocumented in this encounter"
--- OUTSIDE RECORDS SUMMARY | ~2019-10-20 | XMS | Encounter Summary ---
Demographics + + + | Address | [address] | | | [place] [address] | + + + | Home Phone | | + + + | Preferred Language | Unknown | + + + | Marital Status | | + + + | Congregation Affiliation | 1076 | + + + | Race | White | + + + | Ethnic Group | Not or | + + + Author + + + | Author | [facility] | | | and [place] | + + + | Organization | [facility] | | | and [...] Team Providers + +------+ + | Care Joint Cleaning Machine Operator Name | Role | Phone | + +------+ + | Parviz Brar DO | PCP | | + +------+ + Encounter Details +--------+ + + + + | Date | Type | Department | Care Team | Description | +--------+ + + + + | 07/01/ | Abstract | [facility] | Aamir Jorje | | | 2015 | | [address] | [address] | | | | | [place] | [place] | | | | | [address] | [place] [address] | | | | | [phone] | [phone] | | | | | | | [...] | | | | | | [place] [address] | | | | | | [phone] | | | | | | | | +--------+---------+ + + + documented as of this encounter Procedures + +--------+ + + + | Procedure Name | Priori | Date/Time | Associated Diagnosis | Comments | | | ty | | | | + +--------+ + + + | EXTERNAL LAB: PSA, | Routin | 06/29/2015 | | Results for this | | SCREEN | e | 10:00 AM | | procedure are in the | | | | PDT | | results section. | + +--------+ + + + documented in this encounter Results External Lab: PSA, Screen (06/29/2015 10:00 AM PDT) + +-------+ + + + | Component | Value | Ref Range | Performed | Pathologist | | | | | At | Signature | + +-------+ + + + | PSA, | 0.217 | 0 - 4 | REFERENCE | | | External | | | LAB | | | | | | [facility] | | + +-------+ + + + + + | Specimen | + + | Blood specimen | | (specimen) | + + + + | Resulting Agency Comment | + + | [facility] | + + + + + + + | Performing | Address | City/State/Zipcode | Phone Number | | Organization | | | | + + + + + | REFERENCE LAB | [address] [place] [address] [place] | [place] | [phone] | | [facility] | | [id number] | | + + + + + | REFERENCE LAB | [address] [place] [address] [place] | [place] | [phone] | | [facility] | | [id number] | | + + + + + documented in this encounter Visit Diagnoses Not on filedocumented in this encounter"
--- OUTSIDE RECORDS SUMMARY | ~2019-10-20 | XMS | Encounter Summary ---
Demographics + + + | Address | [address] | | | [place] [address] | + + + | Home Phone | | + + + | Preferred Language | Unknown | + + + | Marital Status | | + + + | Rastafari Affiliation | 1076 | + + + | Race | White | + + + | Ethnic Group | Not or | + + + Author + + + | Author | [facility] | | | and [place] | + + + | Organization | [facility] | | [...] NA | | | | | [place] | | + + + + + Care Team Providers + +------+ + | Care Consumer Relations Specialist Name | Role | Phone | + +------+ + | Jason Read | PCP | | | MD | | | + +------+ + Encounter Details +--------+ + + + + | Date | Type | Department | Care Team | Description | +--------+ + + + + | 11/29/ | Abstract | [facility] [place] [facility] | Jorje Rutledge | | | 2018 | | [address] | [address] | | | | | [place] | [address] [place] | | | | | [address] | [place] [address] | | | | | [phone] | [phone] | | | | | | | [...] +---+---+---+ + + | Comments: quit pipe 2011 | + + + + +---------+ + [...] | | | | | [place] [address] | | | | | | [phone] | | | | | | | | +--------+---------+ + + + documented as of this encounter Procedures + +--------+ + + + | Procedure Name | Priori | Date/Time | Associated Diagnosis | Comments | | | ty | | | | + +--------+ + + + | EXTERNAL LAB: PSA, | Routin | 2017 | | Results for this | | SCREEN | e | 1:20 PM | | procedure are in the | | | | PDT | | results section. | + +--------+ + + + documented in this encounter Results External Lab: PSA, Screen (2017 1:20 PM PDT) + + + + + + | Component | Value | Ref Range | Performed | Pathologist | | | | | At | Signature | + + + + + + | PSA, | 7.17 (A) | 0 - 4 | EXTERNAL | | | External | | | LAB | | + + + + + + + + | Specimen | + + | Blood | + + + + | Resulting Agency Comment | + + | [facility] | + + + +---------+ + + | Performing | Address | City/State/Zipcode | Phone Number | | Organization | | | | + +---------+ + + | EXTERNAL LAB | | | | + +---------+ + + documented in this encounter Visit Diagnoses Not on filedocumented in this encounter"
--- OUTSIDE RECORDS SUMMARY | ~2019-10-20 | XMS | Encounter Summary ---
Demographics + + + | Address | [address] | | | [place] [address] | + + + | Home Phone | | + + + | Preferred Language | Unknown | + + + | Marital Status | | + + + | Religion Affiliation | 1076 | + + + | Race | White | + + + | Ethnic Group | Not or | + + + Author + + + | Author | [facility] | | | and [place] | + + + | Organization | [facility] | | | and [...] | + + + + + | Cadnis Beyer | ECON | NA | | | | | FILEMON LIND | | + + + + + Care Team Providers + +------+ + | Care Medical Technician Name | Role | Phone | + +------+ + | Parviz Brar DO | PCP | | + +------+ + Reason for Visit + + + | Reason | Comments | + + + | Follow-up | | + + + | Prostate Cancer | | + + + Encounter Details +--------+---------+ + + + | Date | Type | Department | Care Team | Description | +--------+---------+ + + + | 03/02/ | Office | [facility] | Jorje Rutledge | Prostate cancer | | 2018 | Visit | [address] | MD [address] | ([facility]) (Primary Dx) | | | | [address] | [address] | | | | | [id number] | [place] [address] | | | | | [phone] | [phone] | | | | | | | [...] + + + | Blood Pressure | 135/68 | 03/02/2017 10:27 AM | | | | | PST | | + + + + + | Pulse | 87 | 03/02/2017 10:27 AM | | | | | PST | | + + + + + | Temperature | - | - | | + + + + + | Respiratory Rate | 16 | 03/02/2017 10:27 AM | | | | | PST | | + + + + + | Oxygen Saturation | - | - | | + + + + + | Inhaled Oxygen | - | - | | | Concentration | | | | + + + + + | Weight | 79 kg (174 lb 2.6 | 03/02/2017 10:27 AM | | | | oz) | PST | | + + + + + | Height | 177.8 cm (5' 10") | 03/02/2017 10:27 AM | | | | | PST | | + + + + + | Body Mass Index | 24.99 | 03/02/2017 10:27 AM | | | | | PST | | + + + + + documented in this encounter Progress Notes Jorje Rutledge MD - 03/02/2017 11:00 AM PSTFormatting of this note might be differen t from the original. Diego is a 81 y.o. male patient of Parviz Brar being seen today for follow-up of Prost ate Cancer. 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 He received radiation therapy by Dr. Garza, with post radiation adjuvant Lupron administrat ion for approximately 1-1/2 years. His PSA soy was 0.01. Afterwards, while being followed by Dr. Barkley, he had a PSA recurrence with a slow doublin g time. In July 2013, his PSA was 5.38, and he was started on anti-antigen therapy, with Justice pron. He has done well symptomatically, with only hot flashes with the Lupron. He has been tried on Megace in the past without any improvement of his hot flashes. His last Lupron administration was in December 31, 2015. He denies any significant hot flas hes over the past 6-12 months. Symptomatically, his weight has been stable, and he has had moderate bladder outlet obstruc tive voiding symptoms, but this has not changed appreciably in the past few years. His post void residual was a bit higher day, than it has been in the past, but he has not been taking his tamsulosin as prescribed. He denies any bone pain, or any gross hematuria. Past Medical History He has a past medical history of Anemia; Benign prostatic hypertrophy; C. difficile enterit is (2012); CAD (coronary artery disease); Cataracts, bilateral; COPD (chronic obstructive pu lmonary disease) ([facility]); Depression; Diverticulosis (01/2015); Foot fracture (02/2012); Gastri tis (01/2015); GI bleed (01/2015); Heart murmur; Heartburn; Hiatal hernia (01/2015); History of rectal bleeding; Hypertension; Insomnia; Kidney stone (2004); Lumbar disc herniation; Mi graines; Mood disorder ([facility]) of unknown (axis III) etiology; Nocturnal hypoxia; Osteoarthrit is; Peptic ulcer disease; Pneumonia (05/2012); Prostate cancer ([facility]) (2007); Pulmonary nodule s; Shoulder fracture (02/2012); Supplemental oxygen dependent; SVT (supraventricular tachycar anushka) ([facility]) (01/2014); and TIA (transient ischemic attack). Past Surgical History He has a past surgical history that includes Pancreas surgery; Appendectomy; cyst removal; nasal hemorrhage control (05/2012); Cataract removal with implant (11/2011); Cataract Removal (03/2013); Lumbar spine surgery (1987, 1989); Angiogram (EARLY 1979); ablation of dysrhythm ic focus (03/19/2014); Esophagus dilation (02/06/2015); Leuprolide acetate injections; Cathet er ablation; Colonoscopy (2016); and IRRADIATION (2007). Family History: His family history includes Alcohol [...] Penicillins Medications: Outpatient Encounter Prescriptions as of 03/02/2017 Medication Sig Dispense Refill albuterol (PROAIR HFA) 90 mcg/puff inhaler Inhale 2 puffs into the lungs every 6 hours as needed for Wheezing or Shortness of Breath. 1 Inhaler 11 amLODIPine (NORVASC) 5 mg tablet Take one tablet by mouth once daily. Calcium Carb-Cholecalciferol (CALCIUM-VITAMIN D3) 600-400 MG-UNIT TABS Take 1 tablet by mouth Daily. Taking 800 IU vitamin d [DISCONTINUED] clindamycin (CLEOCIN) 150 mg capsule 150 mg. 0 [facility] LUTEIN PO Take by mouth. docusate sodium (COLACE) 100 mg capsule Take by mouth. [DISCONTINUED] ferrous sulfate 325 mg tablet Take 325 mg by mouth 2 times daily (with b reakfast & dinner). Take one tablet daily 4 fluocinonide (LIDEX) 0.05 % external solution 0 [...] Inhaler 2 ketoconazole (NIZORAL) 2% shampoo 1 levoFLOXacin (LEVAQUIN) 500 mg tablet TK 1 T PO QD 0 Multiple Vitamins-Minerals (OCUVITE EYE + MULTI) TABS Take 1 tablet by mouth Daily. oxyCODONE (ROXICODONE) 5 mg tablet Take by mouth. oxygen Inhale 2 L into the lungs nightly. [DISCONTINUED] oxymetazoline (12 HOUR NASAL SPRAY) 0.05% nasal spray Instill 2 Sprays i nto each nostril every six hours as needed (Epistaxis). Use for only 3 days. pantoprazole (PROTONIX) 40 mg tablet Take 1 tablet by mouth Daily. 0 Respiratory Therapy Supplies [facility] Please provide an O2 concentrator while Diego is visiti for nocturnal O2 at 2 l/m. Dx: COPD, Nocturnal hypoxemia 1 each 0 [DISCONTINUED] sucralfate (CARAFATE) 1 g tablet Take 1 tablet by mouth Daily. 4 tamsulosin (FLOMAX) 0.4 mg CAPS TAKE 2 [...] facility-administered encounter medications on file as of 03/02/2017. AUA BPH SYMPTOM SCORE Not at all Less than 1 times in 5 Less than half the time About half the time More than half the time Almost always INCOMPLETE EMPTYING Over the past month, how often have you had the sensation of not empty ing your bladder completely after you finished urinating? [] 0 [] 1 [] 2 [x] 3 [] 4 [] 5 FREQUENCY Over the past month, how often have you had to urinate again less than 2 hours a fter you finished urinating? [] 0 [] 1 [x] 2 [] 3 [] 4 [] 5 INTERMITTENCY Over the past month, how often have you found you stopped and started again several times when you urinated? [] 0 [] 1 [] 2 [x] 3 [] 4 [] 5 URGE TO URINATE Over the past month, how often have you found it difficult to postpone uri nation? [] 0 [] 1 [] 2 [x] 3 [] 4 [] 5 WEAK STREAM Over the past month, how often have you had a weak urinary stream? [] 0 [] 1 [x] 2 [] 3 [] 4 [] 5 STRAINING Over the past month, how often have you had to push or strain to begin urination ? [] 0 [] 1 [] 2 [x] 3 [] 4 [] 5 None 1 time 2 times 3 times 4 times 5 or more times URINATING AT NIGHT Over the past month, how many times did you most typically get up to ur inated from the time you went to bed at night until the time you got up in the morning? [] 0 [] 1 [x] 2 [] 3 [] 4 [] 5 Symptom Score: Mild 1-7, Moderate 8-19, Severe 20-35 TOTAL: 18 BOTHER SCORE DUE TO URINARY SYMPTOMS Delighted Pleased Mostly Satisfied Mixed Mostly dissatisfied Unhappy Terrible BOTHERSOMENESS OF URINARY SYMPTOMS How would you feel if you had to live with your urinary condition the way it is now, no better, no worse, for the rest of your life? [] 0 [] 1 [] 2 [x] 3 [] 4 [] 5 [] 6 PHYSICAL EXAM Vitals: BP 135/68 | Pulse 87 | Resp 16 | Ht 1.778 m (5' 10") | Wt 79 kg (174 lb 2.6 oz) | BMI 24.99 kg/m General: Awake, alert, in no acute distress. Speech is fluent. Appears to be stated age. Lungs: Normal respiratory effort. Abdomen: Soft, nontender. Extremities: Non-edematous. Neuro: Awake, alert, oriented. Psychiatric: Mood and affect are normal. Normal judgement. Skin: Warm and dry, no erythematous rash. Genitalia: No lesion. Normal in appearance. Rectal: No mass, normal sphincter tone. Prostate gland volume is estimated at 10 gm, and qu ite soft. There is no prostatic induration, nodularity, irregularity, or asymmetry. DIAGNOSTIC DATA: Urine is negative for blood, nitrites, and leukocyte esterase. Post void residual was 227 cc this morning by bladder scan. BUN and creatinine were 16 and 0.92 respectively on 02/27/2017. His EGFR is greater than 60. PSA 02/27/17 1.27 10/24/16 0.203 06/26/170.140 12/28/15 0.247 06/28/160.217 04/04/163.39 01/04/20155.65 09/25/154.57 11/20130.128 07/20135.38 10/20122.5 08/20110.0172 04/20111.32 06/200713.9 IMPRESSION: Stage T2c to T3 Gabino 4+3 = 7 adenocarcinoma the prostate, status post radia tion in 2007 with post radiation adjuvant ADT 1.5 years Post radiation PSA recurrence with int ermittent hormone ablation since 2013, last Lupron was given in December 2015, currently with low PSA Mild bladder outlet obstruction, secondary to above PLAN: Diego has had a jump of his PSA over the past 4 months. This is not significant enoug h at this point to warrant reinstitution of his anti-antigen therapy, but I think that close observation would be prudent. I've asked him to return in 3 months with another updated PS A. Our goal is to try to initiate therapy again when his PSA is in the 5-10 range. For his bladder outlet obstructive symptoms, I have asked Diego to take his tamsulosin 0.4 mg by mouth twice a day until his next visit. Diego is instructed to resume his usual and customary care with his primary care provider. This document was generated in part using voice recognition software. Although every effor t is made to edit the content, chandelier maker errors may occur. Occasional wrong- word or kallie nd-alike substitutions may have occurred due to the inherent limitations of the currently us ed voice recognition software. Please read the chart carefully and recognize, using context, where these substitutions may have occurred. documented in th [...] | | | | | [place] [id number] | | | | | | [phone] | | | | | | | | +--------+---------+ + + + + +------+--------+ + + | Name | Type | Priori | Associated Diagnoses | Order Schedule | | | | ty | | | + +------+--------+ + + | Basic Metabolic | Lab | Routin | Prostate cancer | Expected: | | Panel | | e | (HCC) | 05/24/2017, Expires: | | | | | | 03/03/2018 | + +------+--------+ + + | PSA, Diagnostic | Lab | Routin | Prostate cancer | Expected: | | | | e | (HCC) | 05/24/2017, Expires: | | | | | | 03/03/2018 | + +------+--------+ + + documented as of this encounter Procedures + +--------+ + + + | Procedure Name | Priori | Date/Time | Associated Diagnosis | Comments | | | ty | | | | + +--------+ + + + | POCT URINALYSIS, | Routin | 03/02/2017 | Prostate cancer | Results for this | | AUTO WITH CONF | e | 10:49 AM | (HCC) | procedure are in the | | | | PST | | results section. | + +--------+ + + + | IMAGING REPORT - | | 03/02/2017 | | Results for this | | EXTERNAL SCAN | | 12:00 AM | | procedure are in the | | | | PST | | results section. | + +--------+ + + + documented in this encounter Results POCT Urinalysis Dipstick Automated (03/02/2017 10:49 AM PST) + + + + + + | [...] 1.001 - 1.030 | | | | [place], | | | | | | UA, [...] + + + + + + | Bilirubin | | Negative | | | | Confirmatio | | | | | | n by | | | | | | Ictotest, | | | | | | Urine | | | | | + + + + + + | Remark | | | | | + + + + + + + + | Specimen | + + | Urine | + + IMAGING REPORT - EXTERNAL SCAN (03/02/2017 12:00 AM PST) + + + | [...]
--- OUTSIDE RECORDS SUMMARY | ~2019-10-20 | XMS | Encounter Summary ---
Demographics + + + | Address | [address] | | | [place] [address] | + + + | Home Phone | | + + + | Preferred Language | Unknown | + + + | Marital Status | | + + + | Protestant Affiliation | [id number] | + + + | Race | White | + + + | Ethnic Group | Not or | + + + Author + + + | Author | [facility] | | | and [place] | + + + | Organization | [facility] | | [...] Team Providers + +------+ + | Care Hand Driller Name | Role | Phone | + +------+ + | Parviz Chamberlain DO | PCP | | + +------+ + Encounter Details +--------+---------+ + + + | Date | Type | Department | Care Team | Description | +--------+---------+ + + + | 03/19/ | Surgery | [facility] | Jennifer Benedict, | ABLATION, SVT | | 2014 | | [facility] | MD [address] | | | | | ELECTROPHYSIOLOGY | [address] [place] | | | | | [address] | [address] | | | | | [place] | [phone] | | | | | [address] | | | | | | [phone] | | | +--------+---------+ + + + [...] + + + | Blood Pressure | 131/76 | 03/19/2014 12:15 PM | | | | | PST | | + + + + + | Pulse | 71 | 03/19/2014 12:15 PM | | | | | PST | | + + + + + | Temperature | 36.9 C (98.4 F) | 03/19/2014 6:24 AM | | | | | PST | | + + + + + | Respiratory Rate | 21 | 03/19/2014 12:15 PM | | | | | PST | | + + + + + | Oxygen Saturation | 99% | 03/19/2014 12:15 PM | | | | | PST | | + + + + + | Inhaled Oxygen | - | - | | | Concentration | | | | + + + + + | Weight | 79.8 kg (175 lb 14.8 | 03/19/2014 6:25 AM | | | | oz) | PST | | + + + + + | Height | 177.8 cm (5' 10") | 03/19/2014 6:25 AM | | | | | PST | | + + + + + | Body Mass Index | 25.24 | 03/19/2014 6:25 AM | | | | | PST | | + + + + + documented in this encounter Discharge Summaries Jennifer Benedict MD - 03/19/2014 11:57 AM PSTFormatting of this note might be different fro m the original. DISCHARGE SUMMARY [facility] PATIENT NAME/: Diego Lucas, (1935) DATE OF ADMISSION: 03/19/2014 DATE OF DISCHARGE: 03/19/2014 DISCHARGING MID-LEVEL: EKATERINA Alonso DISCHARGING PHYSICIAN: Jennifer Benedict MD DISPOSITION: Discharge to home BRIEF HOSPITAL COURSE: Please see the history and physical at the time of admission. Briefly, Mr. Lucas is a 78 y.o. male who was admitted on 03/19/2014 with a supraventricular tachycardia. After preli minary laboratory studies, the pt underwent a catheter ablation for his SVT as noted below. EKG shows sinus rhythm with normal WA interval and no preexcitation. MASTER PROBLEM LIST: Patient Active Problem List Diagnosis Date Noted POA SVT (supraventricular tachycardia) 03/13/2014 Unknown Benign prostatic hypertrophy Unknown Osteoarthritis Unknown Heartburn Unknown Pulmonary nodules Unknown Nocturnal hypoxemia due to emphysema 01/26/[address] scan 01/26/2013 Unknown COPD (chronic obstructive pulmonary disease) Unknown VITALS: Temp: 36.9 C (98.4 F) BP: 127/73 mmHg Pulse: 66 Resp: 19 SpO2: 99 % WEIGHT: Today's Weight: 79.8 kg (175 lb 14.8 oz) Admit Weight: 81.647 kg (180 lb) BRIEF EXAM TODAY: General Appearance - resting comfortably Heart - regular rate and rhythm, S1 and S2 normal, no murmur, rub, or gallop. Lungs - diminished breath sound diffusely Musc/Skel - moves all extremities Extremities - no significant edema Neurologic - no focal deficits Sheath site - no hematoma CONSULTATION: none Electrophysiology DIAGNOSTIC STUDIES: Imaging: EKG: KG shows sinus rhythm with normal WA interval and no preexcitation. Selected Labs: Lab 03/19/14 0618 WBC 5.4 HGB 11.0* HCT 33.7* PLT 324 NA 139 K 3.9 BUN 16 CREA 0.94 GLU 97 MG 2.2 CALCIUM 8.9 TSH -- INR -- No results found for this basename: CKTOTAL:3,TROPONINI:3,BNP:3:CHOL:1,HDL:1,LDL:1,TRI i n the last 168 hours No results found for this basename: CHOL, TRIG, HDL, LDL MEDS: Discharge Medications As of 03/19/2014 11:57 Unchanged Medications Details acetaminophen 325 mg tablet Take 650 mg by mouth every 4 hours as needed. aka: TYLENOL albuterol 90 mcg/puff inhaler Inhale 2 puffs into the lungs every 6 hours as needed for Wheezing or Shortness of Breath . amLODIPine 5 mg tablet Take one tablet by mouth once daily. aka: NORVASC ASPIRIN LOW DOSE 81 MG tablet Generic drug: aspirin Take 81 mg by mouth Daily. beclomethasone 80 mcg/puff inhaler Inhale 2 puffs into the lungs 2 times daily. aka: QVAR cetirizine-psuedoephedrine 5-120 MG per tablet Take 1 tablet by mouth Daily as needed. ALLERGIES aka: ZYRTEC-D cholecalciferol 1,000 units capsule Take 1,000 Units by mouth nightly. aka: VITAMIN D-3 GENTLE IRON 28-60-0.008-0.4 MG Caps Generic drug: Fe Bisgly-Vit C-Vit B12-FA Take 1 capsule by mouth Daily. HYDROcodone-acetaminophen 10-325 mg per tablet Take 1 tablet by mouth every 6 hours as needed. aka: NORCO ipratropium 17 mcg/puff inhaler Inhale 2 puffs into the lungs 4 times daily. aka: ATROVENT HFA oxygen Inhale 2 L into the lungs nightly. PRILOSEC OTC 20 mg tablet Generic drug: omeprazole Take 20 mg by mouth Daily. Respiratory Therapy Supplies Misc Please provide an O2 concentrator while Diego is visiting for nocturnal O2 at 2 l/m. Dx: CO PD, Nocturnal hypoxemia tamsulosin 0.4 mg Caps Take 0.8 mg by mouth nightly. OCCASIONALLY TAKES 2 TABS NEEDED aka: FLOMAX venlafaxine 37.5 mg 24 hr capsule Take 37.5 mg by mouth Daily. aka: EFFEXOR XR zolpidem 5 mg tablet Take 5 mg by mouth nightly as needed. SLEEP aka: AMBIEN PATIENT INSTRUCTIONS: ACTIVITY: activity as tolerated and no driving for today DIET: cardiac and low sodium FOLLOW-UP: Follow up with Jennifer Benedict MD in am for an EKG. Dr. Noe Worley in 2-3 weeks. . Time spent on discharge planning: less than 30 minutes Thank you for allowing [facility] to be involved in the care of this patient. Please call with any questions . Patient Care Team: Parviz Chamberlain as PCP - General (Family Medicine) Billy Castro MD as Physician (Pulmonary Disease) Noe Worley MD (Cardiology) Note reviewed, agree with above Jennifer Benedict MD [facility] documented in this e ncounter Discharge Instructions Instructions Alfonso Atkins RN - 03/19/2014 After Catheter Ablation You have had a procedure called cardiac ablation, which wasused to correct an abnormal he artbeat or rhythm. This procedure destroyed (ablated) a few of the cells in your heart that were causing your heart rhythm problem. During the procedure, a thin,flexiblewire (mendez d a catheter) was inserted into a blood vessel in your upper thigh and threaded up to the he art. Going Home ACTIVITY Light activity for 2 days following the procedure May resume full activities (as determined by your physician) 2 days after procedure No alcohol, legal decision making or driving for 24 hours post sedation BATHING No tub baths/hot tubs or swimming pools for 3 days following the procedure You may take a shower tomorrow CARE OF PUNCTURE SITE Keep the area clean and dry Change bandaid daily Check your incision for signs of infection (redness, swelling, drainage, or warmth) ever y day for a week.It is normal to have asmall bruise or lump where the catheter was inser hallie. BLEEDING FROM THE PUNCTURE SITE If bleeding occurs, it may drip or spurt from the site. Or it may collect in a lump (hem atoma) under the skin If Bleeding Occurs: Lie on your back. Apply firm pressure with a gauze pad or a clean washcloth. (If the site in on your groin, have someone else hold pressure on the sit e.) Hold pressure for at least 10 to 15 minutes or until the bleeding stops.Once the bleedin g has stopped, you can release the pressure. Call 911 if bleeding is severe or does not stop within 60 minutes. Common Symptoms After Catheter Ablation In the first few weeks after catheter ablation, you may feel mild chest fullness or aching. You may also feelas if your heart is skipping beats. Or, your heartbeat may feel faster t garcia normal. You may think that your heart rhythm problem is about to return. These sensation s are normal and usually go away with time. Talk to your healthcare provider if you re con cerned. When to Call Your Doctor After your procedure, call your doctor if you have: Increased bleeding, bruising, or pain at the insertion site Shortness of breath or chest pain Coldness, swelling, or numbness of the arm or leg near the insertion site A bruise or lump at the insertion site that is larger than a walnut A fever over 100F Symptoms of your arrhythmia Procedural Sedation (Adult) You have been given medicine by vein to sedate you during your procedure. This may have inc luded both a pain medicine and sleeping medicine. Most of the effects have worn off. But you may continue to have some drowsiness for the next 6 to 8 hours. Home Care Follow these guidelines when you get home: For the next 8 hours, you should be watched by a responsible adult to look for any worse dipak of your condition. Do not take any oral medicine for pain or sleep during the next 4 hour, since this might react with the medicines you were given in the hospital causing a much stronger response th an usual. Do not drink any alcoholfor the next 24 hours. Do not driveor operate dangerous machinery during the next 24 hours. Follow-up care Follow up with your health care provider if you are not alert and back to your usual level of activity within 12 hours. When to seek medical care Get prompt medical attention if any of these occur: Increased drowsiness Increased weakness or dizziness Repeated vomiting You cannot be awakened [phone] [employer]. [address] [place] [address], [place] [address]. All righ ts reserved. This information is not intended as a substitute for professional medical care. Always follow your healthcare professional's instructions. . . documented in this encounter Medications at Time [...] once daily. | | | 12 | 0 | | tablet | | | | | | + + + +---------+ + + | aspirin (ASPIRIN | Take 81 mg by mouth | | 0 | 11/05/19 | | | LOW DOSE) 81 MG | Daily. | | | 12 | 6 | | tablet | | | | | | + + + +---------+ + + | beclomethasone | Inhale 2 puffs into | 1 | 11 | 12/20/19 | | | (QVAR) 80 mcg/puff | the lungs 2 times | Inhaler | | 14 | 5 | | inhaler | daily. | | | | | + + + +---------+ + + | | Take 1 tablet by | | 0 | | | | cetirizine-psuedoeph | mouth Daily as | | | | 6 | | edrine (ZYRTEC-D) | needed. ALLERGIES | | | | | | 5-120 MG per tablet | | | | | [...] | 11 | 12/19/19 | | | (ATROVENT HFA) 17 | the lungs 4 times | Inhaler | | 14 | 5 | | mcg/puff inhaler | daily. | [...] documented as of this encounter Progress Notes Zandra Lowe RN - 03/19/2014 4:13 PM PSTBilat groin D/I, soft pain free.Electronicall y signed by Zandra Lowe RN at 03/19/2014 4:14 PM Zandra Gaxiola RN - 03/19/2014 3:28 PM PSTPt up to ambulated in steward steady, no dizziness. Tolerated PO fluids, snack.Bila t groins stable. Zandra Gaxiola RN - 03/19/2014 2:16 PM PSTRecd rept from RN assume care. Pt AAOx3, pain free, bilat groins d/i. oCheyenne perez RN - 03/19/2014 10:02 AM PSTIsuprel stopped documented in this encounter H&P Notes Jennifer Benedict MD - 03/19/2014 8:28 AM PSTFormatting of this note might be different fro m the original. [facility] PATIENT NAME: Diego Lucas : 1935: AGE: 78 y.o. ADMISSION DATE: 03/19/2014 PRIMARY CARE: Parviz Benedict MD ADMISSION HISTORY AND PHYSICAL CHIEF COMPLAINT: SVT, likely AVNRT CURRENT ASSESSMENT AND PLAN No new assessment & plan notes have been filed since the last note was generated. HISTORY OF PRESENT ILLNESS 78 y.o. year old male with Problem List and Overview as noted below. ACTIVE PROBLEM LIST FULL PROBLEM LIST Active Problems: * No active hospital problems. * Patient Active Problem List Diagnosis Date Noted SVT (supraventricular tachycardia) 03/13/2014 Benign prostatic hypertrophy Osteoarthritis Heartburn Pulmonary nodules Note Last Updated: 08/18/2013 Stable x [address] scan Nocturnal hypoxemia due to emphysema (HCC) 01/26/[address] scan 01/26/2013 COPD (chronic obstructive pulmonary disease) PAST MEDICAL HISTORY Past Medical History Diagnosis Date Peptic ulcer disease with upper GI bleed Benign prostatic hypertrophy Osteoarthritis Heartburn Pulmonary nodules Shoulder fracture 02/2012 Foot fracture 02/2012 SVT (supraventricular tachycardia) 01/[address] Benedict for ablation Depression Radiation 07/2007 Prostate cancer ([facility]) 2007 s/p radiation treatment and on hormonal treatment with Lupron; DR JULIAN [place] COPD (chronic obstructive pulmonary disease) ([facility]) DR BILLY CASTRO Pneumonia 05/2012 hospitalized [facility] SOB (shortness of breath) on exertion COPD Heart murmur DR MARIAA WORLEY Cataracts, bilateral SURGERY Reflux Kidney stone 2004 PASSED ON OWN Hypertension Back pain HX SURGERY TIA (transient ischemic attack) SEVERAL. LAST TIME 2012.NO RESIDUAL; CT SCAN/ ANGIO IN PAST Migraines Dizzy spells WITH INHALERS Supplemental oxygen dependent 02@2L AT NIGHT C. difficile enteritis 2012 PAST SURGICAL HISTORY (INCLUDING PROCEDURES) Past Surgical History Procedure Date Pancreas surgery 1973 Appendectomy Cyst removal from back Nasal hemorrhage control 05/2012 Cataract removal with implant 11/2011 Right Cataract removal 03/2013 Left Eye surgery L[place]NNETTE CATARACTS W/IOLS Spine surgery 1987, 1989 DISCECTOMY X2 Angiogram EARLY 1979 FOR TIA HISTORY FAMILY HISTORY Family History Problem Relation Age of Onset Stroke Mother Stroke Father Other (See Comment) Father Gout Alcohol abuse Father Hypertension Son Hypertension Daughter Other (See Comment) Daughter DVT SOCIAL HISTORY History Social History Marital Status: Spouse Name: [...] Concern Not on file Social History Narrative 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 Also expo sed to asbestos. His grandfather had tuberculosis, he is not sure if he has been tested. No pets at home. No other animal exposures.Grew up in [place]. Then lived in [place]. Then move d to [place]. In the service lived in [facility] and [place]. No recent travel. TOBACCO HISTORY History Smoking status Former Smoker -- 0.3 packs/day for 20 years Types: Cigarettes, Pipe Quit date: 09/22/2009 Smokeless tobacco Never Used Comment: Smoked cigarettes for 20 years and smoked pipe for 57 years OUTPATIENT MEDICATIONS Prescriptions prior to admission Medication Sig Dispense Refill acetaminophen (TYLENOL) 325 mg tablet Take 650 mg by mouth every 4 hours as needed. albuterol (PROAIR HFA) 90 mcg/puff inhaler Inhale 2 puffs into the lungs every 6 hours as needed for Wheezing or Shortness of Breath. 1 Inhaler 11 amLODIPine (NORVASC) 5 mg tablet Take one tablet by mouth once daily. aspirin (ASPIRIN LOW DOSE) 81 MG tablet Take 81 mg by mouth Daily. beclomethasone (QVAR) 80 mcg/puff inhaler Inhale 2 puffs into the lungs 2 times daily. 1 Inhaler 11 cetirizine-psuedoephedrine (ZYRTEC-D) 5-120 MG per tablet Take 1 tablet by mouth Daily as needed. ALLERGIES cholecalciferol (VITAMIN D-3) 1,000 units capsule Take 1,000 Units by mouth nightly. Fe Bisgly-Vit C-Vit B12-FA (GENTLE IRON) 28-60-0.008-0.4 MG CAPS Take 1 capsule by mout h Daily. HYDROcodone-acetaminophen (NORCO) 10-325 mg per tablet Take 1 tablet by mouth every 6 h ours as needed. ipratropium (ATROVENT HFA) 17 mcg/puff inhaler Inhale 2 puffs into the lungs 4 times da leslie. 1 Inhaler 11 omeprazole (PRILOSEC OTC) 20 mg tablet Take 20 mg by mouth Daily. oxygen Inhale 2 L into the lungs nightly. Respiratory Therapy Supplies [facility] Please provide an [...] mg by mouth nightly as needed. SLEEP CURRENT HOSPITAL MEDS Scheduled PRN LABS Recent Results (from the past 24 hour(s)) BASIC METABOLIC PANEL Collection Time 03/19/14617 Component Value Range NA 139 135 - 145 mmol/L K 3.9 3.5 - 5.0 mmol/L CL 109 99 - 109 mmol/L CO2 24 21 - 28 mmol/L GLUCOSE 97 65 - 99 mg/dL BUN 16 8 - 25 mg/dL Creatinine, Serum/Plasma 0.94 0.70 - 1.30 mg/dL CALCIUM 8.9 8.5 - 10.2 mg/dL ANION GAP 6 5 - 16 mmol/L Estimated GFR >60 >60 ml/min/1.73m2 CBC NO DIFFERENTIAL Collection Time 03/19/14617 Component Value Range WBC 5.4 3.8 - 11.0 K/uL RBC 3.92 (*) 4.20 - 5.70 M/uL Hgb 11.0 (*) 13.2 - 17.0 g/dL Hct 33.7 (*) 39.0 - 50.0 % MCV 86.0 80.0 - 100.0 fL MCH 28.2 27.0 - 34.0 pg MCHC 32.8 32.0 - 35.5 g/dL RDW 18.3 (*) 11.0 - 15.5 % Platelet Count 324 150 - 400 K/uL MAGNESIUM Collection Time 03/19/14617 Component Value Range MG 2.2 1.7 - 2.4 mg/dL IMAGING No results found. LATEST VS: BP 133/76 | Pulse 72 | Temp 36.9 C (98.4 F) (Temporal) | Resp 16 | Ht 1.778 m (5' 10") | Wt 79.8 kg (175 lb 14.8 oz) | BMI 25.24 kg/m2 | SpO2 92% Vital sign ranges for last 24hrs: Input and output for last 24hrs: Temp: [36.9 C (98.4 F)] 36.9 C (98.4 F) Pulse: [72] 72 Resp: [16] 16 BP: (133)/(76) 133/76 mmHg SpO2 Av % Min: 92 % Max: 92 % Body mass index is 25.24 kg/(m^2).; Body surface area is 1.99 meters squared. ALLERGIES Allergies Allergen Reactions Adhesive & Tape Paper tapes- BLISTERS ROS 14 point ROS was completed and is negative except as noted in HPI. PHYSICAL EXAM BP 133/76 | Pulse 72 | Temp 36.9 C (98.4 F) (Temporal) | Resp 16 | Ht 1.778 m (5' 10") | Wt 79.8 kg (175 lb 14.8 oz) | BMI 25.24 kg/m2 | SpO2 92% Body mass index is 25.24 kg/(m^2).; Body surface area is 1.99 meters squared. Rhythm SR GENERAL: In no distress HEENT: Normal NECK: Supple. Carotids are normal bilaterally without bruits. CHEST: Good inspiratory effort with no crackles, ronchi, or wheezes. CARDIAC: No lifts/heaves. PMI is discrete and non-displaced. Normal S1 and S2. No murmur s, rubs or gallops. ABDOMEN: Soft, non-tender, non distended, normal abdominal pulsation without bruit. EXTREMITIES: No clubbing, cyanosis, or edema. PULSES: Right: femoral 2+ DP 2+, PT 2+ Left: femoral 2+ DP 2+, PT 2+ NEUROLOGIC: Non-focal. SKIN: No rashes or skin breakdown. MUSCULOSKELETAL: normal ambulation Plan SVT ablation This patient will be placed in observation status. Signed by: Jennifer Benedict MD 03/19/2014, 8:28 documented in this en counter Procedure Notes [facility]BASE SCAN [place] - 03/21/2014 12:00 AM PST 15 6:08 AM Jennifer Herring MD - 03/19/2014 10:19 AM PST [facility] [address] [facility] [address] CARDIOVASCULAR REPORT JENNIFER BENEDICT MD Patient: DIEGO LUCAS Admitting: JENNIFER BENEDICT MR #: [id number] LOC: PT TYPE: Adm Date: 03/19/2014 : 1935 PROCEDURE PERFORMED: 1. Diagnostic electrophysiology study. 2. Recording and pacing from the left atrium. 3. Stimulation after isoproterenol infusion. 4. 3D mapping with NavX system. 5. 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 BED MACHINE OPERATOR: Jennifer Benedict MD PROCEDURE: Informed consent was obtained. Procedure was performed under moderate sedatio n. Two sheaths were placed in the right femoral vein. Two sheaths were placed in the left femoral vein. A steerable decapolar catheter was placed in the coronary sinus, with the m ost proximal pair of electrodes at the os. Quadripolar catheter was placed in the His pos ition. On presentation, the patient was in sinus rhythm, AH interval was 70-80, HV interva l was 35-40. Pacing from the tip of the His catheter in the right ventricle was performed at a cycle length of 600 milliseconds and retrograde conduction pattern was normal. Programmed stimulation was performed from the proximal coronary sinus with single and doub le extrastimuli and induced both single AV cony echoes and nonsustained runs of AVNRT. Th e tachycardia terminated with an atrial deflection, ruling out atrial tachycardia as the me chanism. H to A interval was short, ruling out AVRT as the mechanism. Once we established the mechanism of this tachycardia and the fact that induction was repr oducible, we proceeded with mapping and ablation of the slow pathway. We used a 4 mm EPT c atheter and NavX system for 3D mapping. We mapped the lower third of the septum for favora ble signals with small fractionated atrial signals and larger ventricular signals. First l esion delivered at one of the favorable ablation sites resulted in development of accelerat ed junctional ectopy. The lesion was completed during pacing from the proximal coronary si nus to suppress ectopy and monitor AV conduction and AH interval remained intact. Programm ed stimulation was performed from the proximal coronary sinus and tip of ablation catheter in the right atrium and showed block in the fast pathway not followed by slow pathway condu ction. Stimulation was repeated on isoproterenol 2 mcg per minute with the same stimulation funmi col and again showed physiologic block in the fast pathway not followed by slow pathway con duction and no other SVTs were inducible. Procedure was well tolerated. POSTOPERATIVE DIAGNOSIS: 1. Easily inducible nonsustained atrioventricular cony reentrant tachycardia in the base line state. 2. Status post electrogram-guided slow pathway ablation. 3. After the ablation slow path way conduction was absent and no other supraventricular tachycardias were inducible. JENNIFER BENEDICT MD Dictated by JENNIFER BENEDICT MD 03/19/2014 10:19:32 Transcribed on 03/19/2014 10:30:26 by tiffanie job# [id number] Confirmation #: [id number] cc: PETE CHAMBERLAIN DO ONBASE SCAN [facility] - 03/14/2014 12:00 AM PSTElectronically signed by Carey Piedra at 5 9:42 AM PSTdocumented in this encounter Miscellaneous Notes Plan of Care - ONBASE SCAN [facility] - 03/21/2014 12:00 AM PST iscellaneous - ONBASE SCAN [facility] - 03/21/2014 12:00 AM PSTElec tronically signed by Carey Piedra at 03/22/2014 8:32 AM PSTMiscellaneous - ONBASE SCAN [facility] - 03/21/2014 12:00 AM PST i scellaneous - ONBASE SCAN [facility] 03/21/2014 12:00 AM PST iscellaneous - ONBASE SCAN [facility] 03/14/2014 12:00 AM PSTElectr onically signed by Carey Piedra at 03/14/2014 9:42 AM PSTdocumented in this encounter Plan of Treatment +--------+---------+ + + + | Date | Type | Specialty | Care Team | Description | +--------+---------+ + + + | 12/26/ | Office | Urology | Jorje Rutledge | | | 2020 | Visit | | MD [address] | | | | | | [place] | | | | | | [place] [address] | | | | | | [phone] | | | | | | | | +--------+---------+ + + + + + +--------+ + + | Name | Type | Priori | Associated Diagnoses | Date/Time | | | | ty | | | + + +--------+ + + | EP Ablation | Cardiac | Routin | | 03/19/2014 10:24 AM | | | Services | e | | PST | + + +--------+ + + + + +--------+ + + | Name | Type | Priori | Associated Diagnoses | Order Schedule | | | | ty | | | + + +--------+ + + | EP Ablation | Cardiac | Routin | | One time imaging One | | | Services | e | | time imaging for 1 | | | | | | Occurrences starting | | | | | | 03/19/2014 until | | | | | | 03/19/2014 | + + +--------+ + + documented as of this encounter Procedures + +--------+ + + + | Procedure Name | Priori | Date/Time | Associated Diagnosis | Comments | | | ty | | | | + +--------+ + + + | ABLATION, SVT | | 03/19/2014 | Other specified | | | | | 9:15 AM | cardiac | | | | | PST | dysrhythmias(427.89) | | + +--------+ + + + | CBC NO DIFFERENTIAL | Routin | 03/19/2014 | | Results for this | | | e | 6:18 AM | | procedure are in the | | | | PST | | results section. | + +--------+ + + + | MAGNESIUM | Routin | 03/19/2014 | | Results for this | | | e | 6:18 AM | | procedure are in the | | | | PST | | results section. | + +--------+ + + + | BASIC METABOLIC | Routin | 03/19/2014 | | Results for this | | PANEL | e | 6:18 AM | | procedure are in the | | | | PST | | results section. | + +--------+ + + + documented in this encounter Results Magnesium (03/19/2014 6:18 AM PST) + + + + + + | Component | Value | Ref Range | Performed | Pathologist | | | | | At | Signature | + + + + + + | Magnesium | 2.2Comment: Performed at | 1.7 - 2.4 mg/dL | [facility] | | | | [place] [facility] | | [facility] | | | | [facility], [address] | | HEART | | | | [address], [place] [address] | | MEDICAL | | | | | | CENTER | | | | | | LABORATORY | | + + + + + + + + | Specimen | + + | | + + + + + + + | Performing | Address | City/State/Zipcode | Phone Number | | Organization | | | | + + + + + | [facility] | [address] | [place] [address] | | | [facility] | | | | | LABORATORY | | | | + + + + + DUY Burns (03/19/2014 6:18 AM PST) + + + + + + | Component | Value | Ref Range | Performed | Pathologist | | | | | At | Signature | + + + + + + | White Blood | 5.4 | 3.8 - 11.0 K/uL | [facility] | | | Cells | | | [facility] | | | | | | [facility] | | | | | | MEDICAL | | | | | | CENTER | | | | | | LABORATORY | | + + + + + + | Red Blood | 3.92 (L) | 4.20 - 5.70 | [facility] | | | Cells | | M/uL | [facility] | | | | | | HE[facility] | | | | | | MEDICAL | | | | | | CENTER | | | | | | LABORATORY | | + + + + + + | Hemoglobin | 11.0 (L) | 13.2 - 17.0 | [facility] | | | | | g/dL | [facility] | | | | | | HE[facility] | | | | | | MEDICAL | | | | | | CENTER | | | | | | LABORATORY | | + + + + + + | Hematocrit | 33.7 (L) | 39.0 - 50.0 % | [facility] | | | | | | [facility] | | [facility] | | [facility] | | | | | | MED[facility] | | | | | | CENTER | | | | | | LABORATORY | | + + + + + + | MCV | 86.0 | 80.0 - 100.0 fL | [facility] | | | | | | [facility] | | | | | [facility] | | | | | | MEDICAL | | | | | | CENTER | | | | | | LABORATORY | | + + + + + + | MCH | 28.2 | 27.0 - 34.0 pg | [facility] | | | | | | [facility] | | | | | | [facility] | | | | | | [facility] | | | | | | CENTER | | | | | | LABORATORY | | + + + + + + | MCHC | 32.8 | 32.0 - 35.5 | [facility] | | | | | g/dL | [facility] | | | | | | [facility] | | | | | | MEDICAL | | | | | | CENTER | | | | | | LABORATORY | | + + + + + + | RDW-CV | 18.3 (H) | 11.0 - 15.5 % | [facility] | | | | | | [facility] | | | | | [facility] | | | | | | MEDICAL | | | | | | CENTER | | | | | | LABORATORY | | + + + + + + | Platelet | 324Comment: Performed at | 150 - 400 K/uL | [facility] | | | Count | [place] [facility] | | [facility] | | | | [facility], [address] | | HEART | | | | [place] [address] | | MEDICAL | | | | | | CENTER | | | | | | LABORATORY | | + + + + + + + + | Specimen | + + | Blood specimen | | (specimen) | + + + + + + + | Performing | Address | City/State/Zipcode | Phone Number | | Organization | | | | + + + + + | [facility] | [address] | [place] [address] | | | [facility] | | | | | LABORATORY | | | | + + + + + Basic Metabolic Panel (03/19/2014 6:18 AM PST) + + + + + + | Component | Value | Ref Range | Performed | Pathologist | | | | | At | Signature | + + + + + + | Na | 139 | 135 - 145 | [facility] | | | | | mmol/L | [facility] | | | | | | HEART | | | | | | MEDICAL | | | | | | CENTER | | | | | | LABORATORY | | + + + + + + | K | 3.9 | 3.5 - 5.0 | [facility] | | | | | mmol/L | [facility] | | | | | | HEART | | | | | | MEDICAL | | | | | | CENTER | | | | | | LABORATORY | | + + + + + + | Cl | 109 | 99 - 109 mmol/L | [facility] | | | | | | [facility] | | | | | | [facility] | | | | | | MEDICAL | | | | | | CENTER | | | | | | LABORATORY | | + + + + + + | CO2 | 24 | 21 - 28 mmol/L | [facility] | | | | | | [facility] | | | | | | [facility] | | | | | | MEDICAL | | | | | | CENTER | | | | | | LABORATORY | | + + + + + + | Glucose | 97Comment: [place] | 65 - 99 mg/dL | [facility] | | | | Diabetes Association | | [facility] | | | | diagnostic categories | | HEART | | | | for non adults: | | MEDICAL | | | | Impaired fasting | | CENTER | | | | glucose 100 to 125 | | LABORATORY | | | | mg/dL. A fasting | | | | | | glucose result of 126 | | | | | | mg/dL or greater | | | | | | indicates diabetes if | | | | | | the abnormality is | | | | | | confirmed on a | | | | | | subsequent day. A | | | | | | random glucose result of | | | | | | greater than 200 mg/dL | | | | | | indicates diabetes if | | | | | | the abnormality is | | | | | | confirmed on a | | | | | | subsequent day. | | | | + + + + + + | BUN | 16 | 8 - 25 mg/dL | [facility] | | | | | | [facility] | | | | | | [facility] | | | | | | MEDICAL | | | | | | CENTER | | | | | | LABORATORY | | + + + + + + | Creatinine | 0.94Comment: IDMS | 0.70 - 1.30 | [facility] | | | | traceable creatinine | mg/dL | [facility] | | | | | | HEART | | | | | | MEDICAL | | | | | | CENTER | | | | | | LABORATORY | | + + + + + + | Calcium | 8.9 | 8.5 - 10.2 | [facility] | | | | | mg/dL | [facility] | | | | | | HEART | | | | | | MEDICAL | | | | | | CENTER | | | | | | LABORATORY | | + + + + + + | Anion Gap | 6 | 5 - 16 mmol/L | [facility] | | | | | | [facility] | | | | | | [facility] | | | | | | MEDICAL | | | | | | CENTER | | | | | | LABORATORY | | + + + + + + | Estimated | >60Comment: GFR <60: | >60 | [facility] | | | GFR | Chronic kidney disease, | ml/min/1.73m2 | [facility] | | | | if found over a 3 month | | HEART | | | | period.GFR <15: Kidney | | MEDICAL | | | | failure.For | | CENTER | | | | Americans, multiply the | | LABORATORY | | | | calculated GFR by | | | | | | 1.210Performed at | | | | | | [facility] | | | | | | [facility], [address] | | | | | | [address] [place] [id number] | | | | + + + + + + + + | Specimen | + + | Blood specimen | | (specimen) | + + + + + + + | Performing | Address | City/State/Zipcode | Phone Number | | Organization | | | | + + + + + | [facility] | [address] | [place] [address] | | | [facility] | | | | | LABORATORY | | | | + + + + + documented in this encounter Visit Diagnoses + + | Diagnosis | + + | Other specified cardiac dysrhythmias(427.89) Other specified cardiac dysrhythmias | + + documented in this encounter Administered Medications + +--------+ +--------+------+------+ | Medication Order | MAR | Action | Dose | Rate | Site | | | Action | Date | | | | + +--------+ +--------+------+------+ | fentaNYL injection | Given | 03/19/19 | 25 mcg | | | | Intravenous, PRN, Pain, Starting | | 15 9:40 | | | | | 03/19/14 at 0926, Intra-op | | AM PST | | | | + +--------+ +--------+------+------+ +-------+ +--------+---+---+ | Given | 03/19/19 | 25 mcg | | | | | 15 9:30 | | | | | | AM PST | | | | +-------+ +--------+---+---+ | Given | 03/19/19 | 50 mcg | | | | | 15 9:26 | | | | | | AM PST | | | | +-------+ +--------+---+---+ +---+---+ | | | +---+---+ + + + +---------+ +---+ | ISOPROTERENOL INFUSION 0.2MG | Restarte | 03/19/19 | 2 | 30 mL/hr | | | /50ML NS (4 MCG/ML CONC) ONE STEP | d | 15 9:55 | mcg/min | | | | Intravenous, CONTINUOUS PRN, | | AM PST | | | | | Starting 03/19/14 at 0946 | | | | | | + + + +---------+ +---+ +---------+ +---------+ +---------+ | New Bag | 03/19/19 | 2 | 30 mL/hr | [facility] | | | 15 9:46 | mcg/min | | | | | AM PST | | | | +---------+ +---------+ +---------+ +---+---+ | | | +---+---+ + +-------+ +--------+---+---+ | lidocaine 1% injection PRN, | Given | 03/19/19 | 25 mLs | | | | Starting 03/19/14 at 0938 | | 15 9:38 | | | | | | | AM PST | | | | + +-------+ +--------+---+---+ +---+---+ | | | +---+---+ + +-------+ +------+---+---+ | midazolam (VERSED) 1 mg/mL | Given | 03/19/19 | 1 mg | | | | injection Intravenous, PRN, | | 15 10:05 | | | | | Sedation, Starting 03/19/14 at | | AM PST | | | | | 0925 | | | | | | + +-------+ +------+---+---+ +-------+ +------+---+---+ | Given | 03/19/19 | 2 mg | | | | | 15 9:48 | | | | | | AM PST | | | | +-------+ +------+---+---+ | Given | 03/19/19 | 2 mg | | | | | 15 9:47 | | | | | | AM PST | | | | +-------+ +------+---+---+ +---+---+ | | | +---+---+ documented in this encounter
--- OUTSIDE RECORDS SUMMARY | ~2019-10-20 | XMS | Encounter Summary ---
Demographics + + + | Address | [address] | | | [place] [address] | + + + | Home Phone | | + + + | Preferred Language | Unknown | + + + | Marital Status | | + + + | Tenriism Affiliation | PRE | + + + | Race | White | + + + | Ethnic Group | Not or | + + + Author + + + | Author | [facility] | + + + | Organization | [facility] | + + + | Address | Unknown | + + + | Phone | Unavailable | + + + Support + + +---------+ + | Name | Relationship | Address | Phone | + + +---------+ + | Andrez Lucas | ECON | Unknown | Unavailable | + + +---------+ + Care Team Providers + +------+ + | Care Medical Affairs Specialist Name | Role | Phone | + +------+ + | ZoniaParviz | PCP | | + +------+ + Reason for Visit + + + | Reason | Comments | + + + | Nose bleed | | + + + AUTH/CERT +--------+--------+ [...] | +--------+ + + + + | 06/07/ | Emergency | [facility] Emergency | Taylor Deng MD | | | 2012 - | | Department [address] | [address] | | | | | [address]iliy [address] | [facility], | | | 06/08/ | | [facility] | [place] [address] | | | 2012 | | [place], [place] | [phone] | | | | | [address] | | | | | | [phone] | Benjie Covarrubias MD | | | | | | [address] | | | | | | [place], | | | | | | [place] [address] | | | | | | [phone] | | | | | | | | | | | | Sheeba Edwards, | | | | | | FISCAL ANALYST [address] | | | | | | [address] | | | | | | [place], [place] | | | | | | [address] | | | | | | [phone] | | | | | | | [...] + + + | Blood Pressure | 128/109 | 06/08/2012 12:20 PM | | | | | PDT | | + + + + + | Pulse | 100 | 06/08/2012 12:20 PM | | | | | PDT | | + + + + + | Temperature | 36.3 C (97.3 F) | 06/08/2012 7:28 AM | | | | | PDT | | + + + + + | Respiratory Rate | 16 | 06/08/2012 12:20 PM | | | | | PDT | | + + + + + | Oxygen Saturation | 92% | 06/08/2012 12:20 PM | | | | | PDT | | + + + + + | Inhaled Oxygen | - | - | | | Concentration | | | | + + + + + | Weight | - | - | | + + + + + | Height | - | - | | + + + + + | Body Mass Index | - | - | | + + + + + documented in this encounter Discharge Summaries Sheeba Edwards FNP - 06/08/2012 6:34 AM PDTFormatting of this note might be differen t from the original. Observation Unit Discharge Summary Admission Date: 06/07/2012 Discharge Date: 06/08/2012 Author: JONAH CRAFT Attending Provider: Sheeba Edwards NP Primary Diagnosis: Epistaxis Secondary Diagnoses: Anemia Consults: ENT service Procedures: Placement of nasal packing HPI: Diego Lucas is a 76 y.o. male with PMHx of COPD on home O2, GERD, BPH, and HTN curre ntly staying in the [facility] who presented to the ED for the 4th time this week fo r epistaxis. He was seen by ENT during his previous ED visit the night prior and absorbable nasal packing was placed. Bleeding restarted the next morning and stopped after the administ ration of afrin and pressure. Bleeding started again in the evening and patient felt it was coming from both nares with blood trickling down his throat, prompting him to return to the ED. Denied CP, SOB, lightheadedness or dizziness. In the ED, CBC notable for decreased H/H since prior ED visit with hematocrit decreased fro m 34 to 26. ENT evaluated patient and placed merocel packing. He was admitted to ED Obs to m onitor for bleeding, CBC re-check and ENT re-evaluation in the AM. Course of Observation Stay: In ED Obs, patient without nasal bleeding/oozing overnight, cain al packing remained intact. Hematocrit this morning stable. ENT re-evaluated Mr. Lucas a nd thought he was stable for discharge to follow-up in head/neck resident clinic in 5 days a nd recommended prophylactic keflex while packing is in place. Strict return to ED precaution s were discussed and Mr. Lucas was discharged back to the [facility]. Discharge vitals: BP 131/76 | Pulse 100 | Temp 36.3 C | RR 16 | SpO2 92% LABS/DIAGNOTICS: Results for orders placed during the hospital encounter of 06/07/12 CHEM 8 W/H&H,POC Component Value Range SODIUM, POC 138 134 - 143 mmol/L POTASSIUM, POC 4.4 3.4 - 5.0 mmol/L CHLORIDE, POC 103.0 97 - 108 mmol/L IONIZED CALCIUM, POC 1.21 1.14 - 1.32 mmol/L TCO2, POC 27 GLUCOSE, POC 117 (*) 60 - 99 mg/dL BUN, POC 20 6 - 20 mg/dL CREATININE, POC 0.9 0.7 - 1.3 mg/dL HEMOGLOBIN, POC 8.8 (*) 13.5 - 17.5 g/dL HEMATOCRIT, POC 26 (*) 41.0 - 53.0 %PCV INR Component Value Range INR 1.28 (*) 0.90-1.20 INR CBC AND AUTO DIFF Component Value Range WBC COUNT 9.1 4.4-11.0 K/cu mm RED CELL COUNT 3.05 (*) 4.50-5.90 M/cu mm HEMOGLOBIN 8.3 (*) 13.5-17.5 g/dL HEMATOCRIT 25.8 (*) 41.0-53.0 % MCV 84.6 80.0-96.0 fL MCHC 32.2 (*) 33.4-35.5 g/dL RDW 21.0 (*) 11.5-15.0 % PLATELET COUNT 150-400 K/cu mm NEUTROPHIL % 78 (*) 50-70 % LYMPHOCYTE % 12 (*) 18-42 % MONOCYTE % 6 2-8 % EOS % 3 1-3 % BASO % 0 0-2 % NEUTROPHIL # 7.1 1.8-7.7 K/cu mm LYMPHOCYTE # 1.1 1.0-4.8 K/cu mm MONOCYTE # 0.6 0.0-0.8 K/cu mm EOS # 0.3 0.0-0.5 K/cu mm BASO # 0.0 0.0-0.1 K/cu mm MANUAL DIFFERENTIAL Component Value Range ANISOCYTOSIS 2+ (25-50cells/HPF) (none) HYPOCHROMIA 1+ (10-25cells/HPF) (none) Disposition: [facility] Discharge Condition: stable Medications: Cephalexin 500 mg PO q 6 hours while nasal packing is in place. Instructions: 1. Activity:As tolerated 2. Diet:Prudent diet 3. Return to ED if symptoms worsen Follow-up: Follow-up in head/neck resident clinic on Wednesday06/13/2012 for nasal packing removal and re -evaluation. Sheeba [facility]CKEN[facility] Department of Emergency Medicine documented in th is encounter Discharge Instructions Instructions Sheeba Edwards FNP - 06/08/2012Formatting of this note might be differen t from the original. Thank you for choosing [facility] for your care. Please follow-up with the Head/Neck resident dina smiley on Wednesday06/13/2012 to have your nasal packing removed. Until that time, you will need t o take cephalexin, an antibiotic, for infection prevention. If bleeding returns or your have worsening symptoms, return to the emergency department. Nasal Packing: After Your Visit Your Care Instructions After a nose injury or surgery, gauze is packed into the nasal cavity to absorb blood and o ther drainage. The packing may be changed several times a day or left in place for a few day s. Your face may feel puffy and the area around your eyes and nose may be bruised and swollen for several days. Follow-up care is a dhillon part of your treatment and safety. Be sure to make and go to all ap pointments, and call your doctor if you are having problems. It's also a good idea to know y our test results and keep a list of the medicines you take. How can you care for yourself at home? Follow your doctor's instructions for leaving the packing in place or for removing it. Y our doctor may want to take it out at his or her office. Activity Avoid strenuous activities, such as bicycle riding, jogging, weight lifting, or aerobic exercise, for 1 week or until your doctor says it is okay. You may drive when you are no longer taking prescription pain pills and feel up to it. Medicines Do not take aspirin, aspirin-containing medicines, or anti-inflammatory medicines such a s ibuprofen (Advil, Motrin) or naproxen (Aleve) for 3 weeks following surgery unless your do ctor says it is okay. Take pain medicines exactly as directed. If the doctor gave you a prescription medicine for pain, take it as prescribed. If your doctor prescribed antibiotics, take them as directed. Do not stop taking them ju st because you feel better. You need to take the full course of antibiotics. If you think your pain medicine is making you sick to your stomach: Take your medicine after meals (unless your doctor has told you not to). Ask your doctor for a different pain medicine. Other instructions Do not blow your nose for 1 week after surgery. Do not put anything into your nose. If you must sneeze, open your mouth and sneeze naturally. After the packing is removed, use saline (saltwater) nasal washes to help keep your nasa l passages open and wash out mucus and bacteria. You can buy saline nose drops at a grocery store or drugstore. Or you can make your own at home by adding 1 teaspoon of salt and 1 teas bradly of baking soda to 2 cups of distilled water. If you make your own, fill a bulb syringe with the solution, insert the tip into your nostril, and squeeze gently. Blow your nose. When should you call for help? Call 911 anytime you think you may need emergency care. For example, call if: You passed out (lost consciousness). You have severe trouble breathing. You have sudden chest pain and shortness of breath, or you cough up blood. Call your doctor now or seek immediate medical care if: The dressing soaks through with blood and needs to be changed more than every 15 minutes . You have a fever with a stiff neck or a severe headache. You are sensitive to light, or you feel very sleepy or confused. You have pain that does not get better after you take pain pills. You have a fever over 100F. You have double or blurred vision, cannot close your eyes, or have eye pain. Watch closely for changes in your health, and be sure to contact your doctor if you have an y problems. Where can you learn more? To learn more about "Nasal Packing: After Your Visit", log into your [employer] account at [email or web address]. You can enter J705 in the [employer]" search box. Not on [employer]? Review the [employer] section of your After Visit Summary for directions on whitney w to sign up. [id number] [employer]. Care instructions adapted under license by [facility]. This care instruction is for use with your licensed healthcar e professional. If you have questions about a medical condition or this instruction, always ask your healthcare professional. [employer] disclaims any warranty or liabili ty for your use of this information. Content Version: 9.6.395191; Last Revised: April 06, 2011 Nosebleeds: After Your Visit Your Care Instructions Nosebleeds are common, especially if you have colds or allergies. Many things can cause a n osebleed. Some nosebleeds stop on their own with pressure, others need packing, and some get cauteriz ed (sealed). If you have gauze or other packing materials in your nose, you will need to fol low up with your doctor to have the packing removed. You may need more treatment if you get nosebleeds a lot. The doctor has checked you carefully, but problems can develop later. If you notice any pro blems or new symptoms, get medical treatment right away. Follow-up care is a dhillon part of your treatment and safety. Be sure to make and go to all ap pointments, and call your doctor if you are having problems. It's also a good idea to know y our test results and keep a list of the medicines you take. How can you care for yourself at home? If you get another nosebleed: Sit up and tilt your head slightly forward to keep blood from going down your throat. Use your thumb and index finger to pinch your nose shut for 10 minutes. Use a clock. Do not check to see if the bleeding has stopped before the 10 minutes are up. If the bleeding h as not stopped, pinch your nose shut for another 10 minutes. When the bleeding has stopped, try not to pick, rub, or blow your nose for 12 hours to k eep it from bleeding again. If your doctor prescribed antibiotics, take them as directed. Do not stop taking them ju st because you feel better. You need to take the full course of antibiotics. To prevent nosebleeds Do not blow your nose too hard. Avoid lifting or straining after a nosebleed. Raise your head on a pillow while you sleep. Put a thin layer of petroleum jelly (such as Vaseline) inside your nose. Put it on the s eptum, which divides your nostrils. This will prevent dryness that can cause nosebleeds. Use a vaporizer or humidifier to add moisture to your bedroom. Follow the directions for cleaning the machine. Do not use aspirin, ibuprofen (Advil, Motrin), or naproxen (Aleve) for [address] a nosebleed unless your doctor tells you to. You can use acetaminophen (Tylenol) for julieta n relief. Do not take two or more pain medicines at the same time unless the doctor told you to. M any pain medicines have acetaminophen, which is Tylenol. Too much acetaminophen (Tylenol) ca n be harmful. Talk to your doctor about stopping any other medicines you are taking. Some medicines ma y make you more likely to get a nosebleed. Do not use cold medicines or nasal sprays without first talking to your doctor. They can make your nose dry. When should you call for help? Call 911 anytime you think you may need emergency care. For example, call if: You passed out (lost consciousness). Call your doctor now or seek immediate medical care if: You get another nosebleed and your nose is still bleeding after you have applied pressur e 3 times for 10 minutes each time (30 minutes total). There is a lot of blood running down the back of your throat even after you pinch your n ose and tilt your head forward. You have a fever. You have sinus pain. Watch closely for changes in your health, and be sure to contact your doctor if: You get frequent nosebleeds, even if they stop. You take warfarin (Coumadin) or other blood thinners, and you have had more than one nos ebleed in a day. You do not get better as expected. Where can you learn more? To learn more about "Nosebleeds: After Your Visit", log into your [employer] account at [email or web address]. You can enter S156 in the [employer] Library" search box. Not on [employer]? Review the Dynatherm Medicalhart section of your After Visit Summary for directions on ho w to sign up. [id number] [employer]. Care instructions adapted under license by [facility]. This care instruction is for use with your licensed healthcar e professional. If you have questions about a medical condition or this instruction, always ask your healthcare professional. [employer] disclaims any warranty or liabili ty for your use of this information. Content Version: 9.6.330459; Last Revised: August 19, 2011 documented in this encounter Medications at Time of Discharge + + + +---------+--------+ + | Medication | Sig | Dispensed | Refills | Start | End Date | | | | | | Date | | + + + +---------+--------+ + | amLODIPine 5 mg | Take 5 mg by mouth | | 0 | | | | Oral | once daily in the | | | | | | tabletIndications: | morning. | | | | | | hypertension | Indications: | | | | | | | HYPERTENSION | | | | | + + + +---------+--------+ + | ascorbic acid 250 | Take 250 mg by mouth | | 0 | | | | mg Oral tablet | two times daily. | | | | | + + + +---------+--------+ + | cetirizine 5 mg | Take 5 mg by mouth | | 0 | | | | Oral tablet | two times daily. | | | | | + + + +---------+--------+ + | docusate sodium | Take 100 mg by mouth | | 0 | | | | 100 mg Oral capsule | twice daily as | | | | | | | needed. | | | | | + + + +---------+--------+ + | ferrous sulfate | Take 325 mg by mouth | | 0 | | | | 325 mg (65 mg iron) | two times daily. | | | | | | Oral tablet | | | | | | + + + +---------+--------+ + | fluticasone 220 | Inhale 1 Puff two | | 0 | | | | mcg/actuation | times daily. | | | | | | Inhalation Aerosol | | | | | | | (Aero) | | | | | | + + + +---------+--------+ + | ipratropium 17 | Inhale 2 Puffs four | | 0 | | | | mcg/actuation | times daily as | | | | | | Inhalation HFA | needed. | | | | | | Aerosol Inhaler | | | | | | + + + +---------+--------+ + | loratadine 10 mg | Take 10 mg by mouth | | 0 | | | | Oral tablet | once daily. | | | | | + + + +---------+--------+ + | magnesium | Take 30 mL by mouth | | 0 | | | | hydroxide 400 mg/5 | once daily as | | | | | | mL Oral Suspension | needed. | | | | | + + + +---------+--------+ + | omeprazole 20 mg | Take [...] | | | | + + + +---------+--------+ + | polyethylene | Take 17 g by mouth | | 0 | | | | glycol 17 gram/dose | once daily. | | | | | | Oral Powder | | | | | | + + + +---------+--------+ + | tamsulosin 0.4 mg | Take [...] | | | | + + + +---------+--------+ + | temazepam 15 mg | Take 15 mg by mouth | | 0 | | | | Oral capsule | once daily at | | | | | | | bedtime as needed. | | | | | + + + +---------+--------+ + documented as of this encounter Consult Notes Jamey Moreira MD - 06/07/2012 11:22 PM PDTFormatting of this note might be different f rom the original. OTORHINOLARYNGOLOGY - HEAD & NECK SURGERY CONSULT NOTE 06/07/2012 Requesting Physician: Taylor Mccoy Ma, MD Consult Attending: Fredrick Cherry MD Reason for consult: Epistaxis HPI: Diego Lucas is a 76 y.o. male who has been seen by our service twice in the past 2 d ays for recurrent epistaxis. He was initially seen on 06/06 for right epistaxis - he was pac ked with floseal and discharged. He had another episode and was brought in early this am. There was no source identified, and nasopore was placed on the same side. He was discharged this am, however, he started bleeding shortly after arriving at the facility. He had 2 sub sequent bleeds, and was brought back to [facility] for further management. Hct has dropped from 3 4.1 to 26 since the am of 06/06. He feels somewhat lightheaded. PMH: Past Medical History Diagnosis Date Pneumonia COPD Gastroesophageal reflux Benign hypertrophy of prostate Unspecified essential hypertension PSH: Past Surgical History Procedure Date Back surgery SH: From [place], is currently @ an assisted living facility here in the local area FH: Reviewed and is non-contributory Allergies: Allergies Allergen Reactions Paper First Aid Tape (Adhesive Tape) Hives and Rash ROS: Full 10-point ROS performed, pertinent positives and negatives per HPI, otherwise negative Exam: Last Vitals: BP 105/65 | Pulse 86 | Temp 36.7 C (98 F) | RR 16 | SpO2 93% General: NAD Psych: Normal affect Respiratory: Breathing comfortably, no stridor, normal voice CV: Regular rate and rhythm Head: Atraumatic, normocephalic Eyes: Sclerae clear, EOM intact Ears: Normal external ears bilaterally Nose: Dorsum straight, noted mucosal trauma to the anterior septum and inferior turb on the right, some mild oozing of blood, nasopore in posterior nasal cavity, left with odl blood, no noted lesions Mouth: No labial, buccal, or mucosal lesions. Oropharynx with old blood. Dentition Neck: No masses or lesions present. Thyroid unremarkable Lymph: No cervical lymphadenopathy Neuro: CN II-XII intact Labs: CBC with diff Recent Labs Basename 06/07/12 2156 06/06/12 1941 06/06/12 0249 WBC -- -- 9.6 HB 8.8* 9.6* 10.7* HCT 26* -- 34.1* PLT -- -- 207 Imaging: Relevant imaging reviewed A/P: Diego Lucas is a 76 y.o. male with recurrent epistaxis that has failed several atte mpts of absorbable packing. Once again, there is no clear source. I think it would be best to place a merocel and give his mucosa time to heal since there is evidence of iatrogenic t rauma. Merocel placed - should be left in for 5 days Needs to be on keflex while pack in place Will need f/u on Wednesday next week for removal in Head and Neck resident clinic Diego Lucas was discussed with Dr. Cherry, who is in agreement. Genny Moreira MD Otorhinolaryngology - Head & Neck Surgery, PGY-2 [id number] documented in thi s encounter ED Notes Paxton Ken RN - 06/08/2012 2:27 PM PDTNAD. VSS. GCS 15. Gait steady. Pt verbaliz ed understanding of extended discharge instructions. Follow-up plan of care reviewed with hannah cruz. Rx in hand. TGPaxton casas RN - 06/08/2012 1:34 PM PDTTransport arranged via [facility]. ETA 1 hr.Electron ically signed by Paxton Ken RN at 06/08/2012 1:34 PM Paxton Tamez RN - 06/09/19 12:54 PM PDTReport given to RN at [facility]. Bleeding controlled. racia Syed RN - 06/08/2012 7:20 AM PDTI ferro ve assumed care of this patient. From assembler 1st shift RN orena Munoz RN - 06/08/2012 7:18 AM PDTSBAR to Gracia STOKESE lectronically signed by Lorena Munoz RN at 06/08/2012 7:18 AM Benjie Power MD - 06/08 4:20 AM PDT ED OBSERVATION UNIT ADMISSION HISTORY AND PHYSICAL Author: ANA LAURA NAYLOR MD ATTENDING PHYSICIAN: Benjie Covarrubias MD REASON FOR ADMISSION: Repeat epistaxis, serial exams HPI: In summary, Diego Lucas is a 76 y.o. male who presented with epistaxis, multiple rep eat presentations. Seen by ENT. Thought to be dry mucous membranes due to O2, some bleeding stopped with pressure today. Dissolvable nasopore from yesterday now gone. Dropped hct from 34-->26 today. ENT evaluating patient. Was on ASA but not anymore. RELEVANT HISTORY Past Medical: Past medical history unchanged since immediate prior evaluation and manageme nt performed in the ED. PFSH: Personal family and social history unchanged since immediate prior evaluation and man agement performed in the ED, except as noted: ROS: Review of systems unchanged since immediate prior evaluation and management performed in th e ED, except as noted: MEDICATIONS: Current Facility-Administered Medications Medication Dose Route Frequency Provider Last Rate Last Dose ondansetron (aka ZOFRAN) injection 4 mg 4 mg Intravenous Q12H PRN Ana Laura Naylor MD Current Outpatient Prescriptions Medication Sig amLODIPine 5 mg Oral tablet Take 5 mg by mouth once daily in the morning. Indications: HYPERTENSION ascorbic acid 250 mg Oral tablet Take 250 mg by mouth two times daily. aspirin chewable 81 mg Oral tablet, chewable Take 81 mg by mouth once daily. cetirizine 5 mg Oral tablet Take [...] by mouth once daily as neede d. moxifloxacin (AVELOX) 400 mg Oral tablet Take 400 mg by mouth once daily. omeprazole 20 mg Oral capsule,delayed release(DR/EC) Take 20 mg by mouth once daily in the morning. Indications: GASTROESOPHAGEAL REFLUX oxyCODONE, immediate release, 5 mg Oral tablet Take 10 mg by mouth every four hours as needed. polyethylene glycol 17 gram/dose Oral Powder Take 17 g by mouth once daily. tamsulosin 0.4 mg Oral capsule,extended release 24hr Take 0.4 mg by mouth once daily in the evening. Indications: BENIGN PROSTATIC HYPERTROPHY temazepam 15 mg Oral capsule Take 15 mg by mouth once daily at bedtime as needed. Allergies Allergen Reactions Paper First Aid Tape (Adhesive Tape) Hives and Rash PCP: Parviz Brar, PHYSICAL EXAM: BP 118/71 | Pulse 92 | Temp 36.6 C | RR 16 | SpO2 94% Systolic (24hrs), Av mmHg, Min:105 mmHg, Max:130 mmHg Diastolic (24hrs), Av mmHg, Min:65 mmHg, Max:83 mmHg Pulse Av Min: 86 Max: 95 Temp Av.7 C Min: 36.6 C Max: 36.7 C Resp Av Min: 16 Max: 16 SpO2 Av.6 % Min: 91 % Max: 94 % Relevant Physical Findings: Right nare packed, no active bleeding. RRR w/o murmur CTAB A&O x 3 Relevant Laboratory Findings: Results for orders placed during the hospital encounter of 06/07/12 CHEM 8 W/H&H,POC Component Value Range SODIUM, POC 138 134 - 143 mmol/L POTASSIUM, POC 4.4 3.4 - 5.0 mmol/L CHLORIDE, POC 103.0 97 - 108 mmol/L IONIZED CALCIUM, POC 1.21 1.14 - 1.32 mmol/L TCO2, POC 27 GLUCOSE, POC 117 (*) 60 - 99 mg/dL BUN, POC 20 6 - 20 mg/dL CREATININE, POC 0.9 0.7 - 1.3 mg/dL HEMOGLOBIN, POC 8.8 (*) 13.5 - 17.5 g/dL HEMATOCRIT, POC 26 (*) 41.0 - 53.0 %PCV INR Component Value Range INR 1.28 (*) 0.90-1.20 INR ASSESSMENT and PLAN: Epistaxis Plan: Serial exams Repeat exam by ENT in the AM. ANA LAURA NAYLOR MD [facility] [address] [place] [address] BENJIE COVARRUBIAS MD, Faculty Note: I saw and evaluated the patient and discussed the diagnosis and management with the residen t. I performed and confirmed the dhillon portions of the service. I have reviewed and agree wit h the documentation in the provider note. As above, given one 5 mg oxycodone during the night to help with pain, SBAR to Sheeba S in the am Lorena Reynolds RN - 1:30 AM PDTPt up to sink to brush teeth with [employer]ORSERAD[employer]KER for assistance.Electronically sign ed by Lorena Munoz RN at 06/08/2012 1:30 AM Lorena Reynolds RN - 06/07/2012 11:58 PM PDT ENT in to see pt at this time. Benjie Power MD - 06/07/2012 11:12 PM PDT ED SBAR Note: Sign out from Dr. Fernandez and Dr. Lincoln at 11:12 PM. Situation: In summary, Diego Lucas is a 76 y.o. male who presented with epistaxis, multiple repeat p resentations. Seen by ENT. Thought to be dry mucous membranes due to O2, some bleeding stopp ed with pressure today. Dissolvable nasopore from yesterday now gone. Dropped hct from 34--> 26 today. ENT evaluating patient. Was on ASA but not anymore. Background: Significant Past medical History: COPD HTN GERD BPH Assessment: Exam Findings: No source of bleeding on exam, no active bleeding now. Labs: Results for orders placed during the hospital encounter of 04/16/13 CHEM 8 W/H&H,POC Component Value Range SODIUM, POC 138 134 - 143 mmol/L POTASSIUM, POC 4.4 3.4 - 5.0 mmol/L CHLORIDE, POC 103.0 97 - 108 mmol/L IONIZED CALCIUM, POC 1.21 1.14 - 1.32 mmol/L TCO2, POC 27 GLUCOSE, POC 117 (*) 60 - 99 mg/dL BUN, POC 20 6 - 20 mg/dL CREATININE, POC 0.9 0.7 - 1.3 mg/dL HEMOGLOBIN, POC 8.8 (*) 13.5 - 17.5 g/dL HEMATOCRIT, POC 26 (*) 41.0 - 53.0 %PCV INR Component Value Range INR 1.28 (*) 0.90-1.20 INR Consults: ENT Recommendations: F/u ENT recs Subsequent ED Course: - ENT packed nare, no further bleeding - Discussed plan with ENT, will put in obs and watch for further bleeding and re-eval in th e AM. Have discussed with patient results of workup and need for admission at this time. The lacey ent understands and agrees with the plan. Assessment: Epistaxis Plan: Admit ED observation for serial exams and re-check by ENT in AM ANA LAURA NAYLOR MD [facility] [address] [place] [address] BENJIE COVARRUBIAS MD, Faculty Note: I saw and evaluated the patient and discussed the diagnosis and management with the residen t. I performed and confirmed the dhillon portions of the service. I have reviewed and agree wit h the documentation in the provider note. Mackenzie Matson RN - 9:45 PM Elvia Andrez has inquiry about pt. Status, pt. Ok to release information to jos. Catarino's phone # to call back if needed [phone]. Lorena Reynolds RN - 06/07/2012 9:15 PM YUE Fernandez in to see pt. Taylor Castillo MD - 06/07/2012 9:09 PM PDT ED Shared Provider Note, co-authored by Taylor MCCOY MA, MD and FREDRICK FERNANDEZ MD: Epistaxis This is a recurrent problem. The current episode started less than 1 hour ago. The problem occurs constantly. The problem has been gradually worsening. The bleeding has been from both nares. He has tried a nasal tampon and applying pressure for the symptoms. The treatment pr ovided no relief. 76 y.o. Male presents to ED for the 4th time this week for epistaxis. Pt seen by ENT last night and was packed. Pt started bleeding this morning around 6am. Pt used afrin this mornin g for this with pressure and it stopped. Pt started bleeding this evening again. Pt feels th at there is bleeding coming from both sides. Pt is on O2 and the ENT thought is that the pt is bleeding due to membrane dryness. Pt is passing lots of clots. Pt does have blood down th e back of the throat. No chest pain or SOB. No lightheadedness or dizziness. PCP: Parviz Brar DO Patient Active Problem List Diagnoses Date Noted Epistaxis 06/06/2012 Past Medical History Diagnosis Date Pneumonia COPD Gastroesophageal reflux Benign hypertrophy of prostate Unspecified essential hypertension Past Surgical History Procedure Date Back surgery Medications Prior to Admission Medications Medication Last Dose Informant Patient Reported? Taking? amLODIPine 5 mg Oral tablet Yes No Take 5 mg by mouth once daily in the morning. Indications: HYPERTENSION ascorbic acid 250 mg Oral tablet Yes No Take 250 mg by mouth two times daily. aspirin chewable 81 mg Oral tablet, chewable Yes No Take 81 mg by mouth once daily. cetirizine 5 mg Oral tablet Yes No Take 5 mg by mouth two times daily. docusate sodium 100 mg Oral capsule Yes No Take 100 mg by mouth twice daily as needed. ferrous sulfate 325 mg (65 mg iron) Oral tablet Yes No Take 325 mg by mouth two times daily. fluticasone 220 mcg/actuation Inhalation Aerosol (Aero) Yes No Inhale 1 Puff two times daily. ipratropium 17 mcg/actuation Inhalation HFA Aerosol Inhaler Yes No Inhale 2 Puffs four times daily as needed. loratadine 10 mg Oral tablet Yes No Take 10 mg by mouth once daily. magnesium hydroxide 400 mg/5 mL Oral Suspension Yes No Take 30 mL by mouth once daily as needed. moxifloxacin (AVELOX) 400 mg Oral tablet Yes No Take 400 mg by mouth once daily. omeprazole 20 mg Oral capsule,delayed release(DR/EC) Yes No Take 20 mg by mouth once daily in the morning. Indications: GASTROESOPHAGEAL REFLUX oxyCODONE, immediate release, 5 mg Oral tablet Yes No Take 10 mg by mouth every four hours as needed. polyethylene glycol 17 gram/dose Oral Powder Yes No Take 17 g by mouth once daily. tamsulosin 0.4 mg Oral capsule,extended release 24hr Yes No Take 0.4 mg by mouth once daily in the evening. Indications: BENIGN PROSTATIC HYPERTROPHY temazepam 15 mg Oral capsule Yes No Take 15 mg by mouth once daily at bedtime as needed. Allergies Allergen Reactions Paper First Aid Tape (Adhesive Tape) Hives and Rash Social History reports that he has quit using tobacco. He reports that he does not currently drink alcoh ol or use illicit drugs. Family History: Reviewed and found to be non-contributory. ROS Complete ROS performed and negative except as noted in HPI. ED Triage Vitals BP Temp Pulse Resp SpO2 06/07/12203306/07/12203306/07/12203306/07/12203306/07/122033 130/76 mmHg 36.7 C 95 16 91 % Physical Exam Nursing note and vitals reviewed. Constitutional: He is oriented to person, place, and time. HENT: Head: Normocephalic and atraumatic. Small clot to the inside of the right nares, removed, no active bleeding, septum with red dry inflammation, no treatable lesion visualized, dried blood to the posterior OP. Eyes: EOM are normal. Pupils are equal, round, and reactive to light. Neck: Normal range of motion. Cardiovascular: Normal rate, regular rhythm and intact distal pulses. Exam reveals no gall op and no friction rub. No murmur heard. Pulmonary/Chest: Effort normal and breath sounds normal. He has no wheezes. He has no rales . Abdominal: Soft. There is no tenderness. There is no rebound and no guarding. Musculoskeletal: Normal range of motion. Neurological: He is alert and oriented to person, place, and time. Skin: He is not diaphoretic. There is pallor. ED COURSE AND MEDICAL DECISION MAKING: Results for orders placed during the hospital encounter of 06/07/12 CHEM 8 W/H&H,POC Component Value Range SODIUM, POC 138 134 - 143 mmol/L POTASSIUM, POC 4.4 3.4 - 5.0 mmol/L CHLORIDE, POC 103.0 97 - 108 mmol/L IONIZED CALCIUM, POC 1.21 1.14 - 1.32 mmol/L TCO2, POC 27 GLUCOSE, POC 117 (*) 60 - 99 mg/dL BUN, POC 20 6 - 20 mg/dL CREATININE, POC 0.9 0.7 - 1.3 mg/dL HEMOGLOBIN, POC 8.8 (*) 13.5 - 17.5 g/dL HEMATOCRIT, POC 26 (*) 41.0 - 53.0 %PCV INR Component Value Range INR 1.28 (*) 0.90-1.20 INR 76 y.o. Male to ED with recurrent epistaxis. Pt has been seen 4 times in the last 2 days fo r this complaint. There is no active bleeding on my exam however, the pts Hgb has dropped by 2gm over the last 24 hours. Given the drop in H/H felt that ENT should see pt again tonight prior to packing, I am not sure if ENT will need to scope pt again given no evidence of diana atable lesion on prior 2 scopes. At the time of Signout pt is awaiting ENT eval. SBAR to Dr. Covarrubias and Dr. Abilio Naylor IMPRESSION: Acute epistaxis Anemia PLAN, DISPOSITION AND FOLLOW-UP: Awaiting ENT consult at 2300. SBAR to oncoming team at 2300. FREDRICK FERNANDEZ MD Department of Emergency Medicine [facility] Lorena Reynolds RN - 06/07 8:32 PM PDTPt BIBA. Pt with multiple visits to ER since yesterday for recurrent nose bleeds. Used afrin and nose clamp prior. This nose bleed 2 hours. Pt feeling a little weak. No dizziness. Nose clamp and gauze in place. Bleeding appears to be in control. Pt states he does not currently have blood running down his throat. documented in this encounter Miscellaneous Notes Scan - Other, Faculty - 06/10/2012 10:10 AM PDTElectronically signed by Faculty Other at 10:10 AM PDTScan - Other, Faculty - 06/09/2012 9:51 AM PDT D Teaching Notes - Taylor Deng MD - 06/07/2012 8 :47 PM PDTI saw and evaluated the patient and discussed the diagnosis and management of the patient with the Resident. I performed and confirmed the dhillon portions of the service. See al so the Resident's note from today's visit. I agree with the documentation findings and plan of care. [facility] 06/07/2012 8:27 PM [id number]: 76 yom c/o nose bleed for 40 min, bleeding controlled, 131 /83, hr 102, o2 sats 97% on 4 liters. documented in this encounte r Plan of Treatment Not on filedocumented as of this encounter Procedures + +--------+ + + + | Procedure Name | Priori | Date/Time | Associated Diagnosis | Comments | | | ty | | | | + +--------+ + + + | CBC AND AUTO DIFF | Urgent | 06/08/2012 | | Results for this | | | | 6:27 AM | | procedure are in the | | | | PDT | | results section. | + +--------+ + + + | MANUAL DIFFERENTIAL | Routin | 06/08/2012 | | Results for this | | | e | 6:27 AM | | procedure are in the | | | | PDT | | results section. | + +--------+ + + + | CBC, WITH | Urgent | 06/08/2012 | | Results for this | | DIFFERENTIAL | | 6:27 AM | | procedure are in the | | | | PDT | | results section. | + +--------+ + + + | CHEM 8 W/H&H,POC | Urgent | 06/07/2012 | | Results for this | | | | 9:56 PM | | procedure are in the | | | | PDT | | results section. | + +--------+ + + + | INR | Urgent | 06/07/2012 | | Results for this | | | | 9:50 PM | | procedure are in the | | | | PDT | | results section. | + +--------+ + + + documented in this encounter Results CBC AND AUTO DIFF (06/08/2012 6:27 AM PDT) + + + + + + | Component | Value | Ref Range | Performed | Pathologist | | | | | At | Signature | + + + + + + | WBC COUNT | 9.1 | 4.4 - 11.0 K/cu | [facility] | | | | | mm | LABORATORY | | | | | | SERVICES, | | | | | | CORE | | + + + + + + | RED CELL | 3.05 (L) | 4.50 - 5.90 | [facility] | | | COUNT | | M/cu mm | LABORATORY | | | | | | SERVICES, | | | | | | CORE | | + + + + + + | HEMOGLOBIN | 8.3 (L) | 13.5 - 17.5 | [facility] | | | | | g/dL | LABORATORY | | | | | | SERVICES, | | | | | | CORE | | + + + + + + | HEMATOCRIT | 25.8 (L) | 41.0 - 53.0 % | [facility] | | | | | | LABORATORY | | | | | | SERVICES, | | | | | | CORE | | + + + + + + | MCV | 84.6 | 80.0 - 96.0 fL | [facility] | | | | | | LABORATORY | | | | | | SERVICES, | | | | | | CORE | | + + + + + + | MCHC | 32.2 (L) | 33.4 - 35.5 | [facility] | | | | | g/dL | LABORATORY | | | | | | SERVICES, | | | | | | CORE | | + + + + + + | RDW | 21.0 (H) | 11.5 - 15.0 % | [...] | | | | Previous result was 300 | | | | | | on 06/08/2012t 0652. | | | | + + + + + + | NEUTROPHIL | 78 (H) | 50 - 70 % | [facility] | | | % | | | LABORATORY | | | | | | SERVICES, | | | | | | CORE | | + + + + + + | LYMPHOCYTE | 12 (L) | 18 - 42 % | [facility] | | | % | | | LABORATORY | | | | | | SERVICES, | | | | | | CORE | | + + + + + + | MONOCYTE % | 6 | 2 - 8 % | [facility] | | | | | | LABORATORY | | | | | | SERVICES, | | | | | | CORE | | + + + + + + | EOS % | 3 | 1 - 3 % | [facility] | | | | | | LABORATORY | | | | | | SERVICES, | | | | | | CORE | | + + + + + + | BASO % | 0 | 0 - 2 % | [facility] | | | | | | LABORATORY | | | | | | SERVICES, | | | | | | CORE | | + + + + + + | NEUTROPHIL | 7.1 | 1.8 - 7.7 K/cu | [facility] | | | # | | mm | LABORATORY | | | | | | SERVICES, | | | | | | CORE | | + + + + + + | LYMPHOCYTE | 1.1 | 1.0 - 4.8 K/cu | [facility] | | | # | | mm | LABORATORY | | | | | | SERVICES, | | | | | | CORE | | + + + + + + | MONOCYTE # | 0.6 | 0.0 - 0.8 K/cu | [facility] | | | | | mm | LABORATORY | | | | | | SERVICES, | | | | | | CORE | | + + + + + + | EOS # | 0.3 | 0.0 - 0.5 K/cu | [facility] | | | | | mm | LABORATORY | | | | | | SERVICES, | | | | | | CORE | | + + + + + + | BASO # | 0.0 | 0.0 - 0.1 K/cu | [facility] | | | | | mm | LABORATORY | | | | | | SERVICES, | | | | | | CORE | | + + + + + + + + | Specimen | + + | Blood - Blood | + + + + + | Narrative | Performed At | + + + | Final automated differential report. Smear reviewed. | [facility] | | | LABORATORY | | | SERVICES, CORE | + + + + + + + + | Performing | Address | City/State/Zipcode | Phone Number | | Organization | | | | + + + + + | [facility] | [address] | [place] [address] | | | SERVICES, [place] | [address] | | | + + + + + MANUAL DIFFERENTIAL (06/08/2012 6:27 AM PDT) + + + + + + | Component | Value | Ref Range | Performed | Pathologist | | | | | At | Signature | + + + + + + | ANISOCYTOSI | 2+ (25-50cells/HPF) | (none) | [facility] | | | S | | | LABORATORY | | | | | | SERVICES, | | | | | | CORE | | + + + + + + | HYPOCHROMIA | 1+ (10-25cells/HPF) | (none) | [facility] | | | | | [...] | + + + + + | [facility] | [address] | [place] [address] | | | SERVICES, CORE | [address] | | | + + + + + CHEM 8 W/H&H,POC (06/07/2012 9:56 PM PDT) + +---------+ + + + | Component | Value | Ref Range | Performed | Pathologist | | | | | At | Signature | + +---------+ + + + | SODIUM, POC | 138 | 134 - 143 | [facility] - | | | | | mmol/L | [facility] | | | | | | [facility] | | | | | | OF CARE | | | | | | TESTS | | + +---------+ + + + | POTASSIUM, | 4.4 | 3.4 - 5.0 | [facility] - | | | POC | | mmol/L | [facility] | | | | | | [facility] | | | | | | OF CARE | | | | | | TESTS | | + +---------+ + + + | CHLORIDE, | 103.0 | 97 - 108 mmol/L | [facility] - | | | POC | | | [facility] | | | | | | [place] | | | | | | OF CARE | | | | | | TESTS | | + +---------+ + + + | IONIZED | 1.21 | 1.14 - 1.32 | [facility] - [...] +---------+ + + + | GLUCOSE, | 117 (H) | 60 - 99 mg/dL | [facility] - | | | POC | | | [facility] | | | | | | [facility] | | | | | | OF CARE | | | | | | TESTS | | + +---------+ + + + | BUN, POC | 20 | 6 - 20 mg/dL | [facility] - | | | | | | [facility] | | | | | | [facility] | | | | | | OF CARE | | | | | | TESTS | | + +---------+ + + + | CREATININE, | 0.9 | 0.7 - 1.3 mg/dL | [facility] [...] + + + + | [facility] | [address] | [place], [place] | | | [facility] | [address] | [phone] | | | TESTS | | | | + + + + + INR (06/07/2012 9:50 PM PDT) + + + + + + | Component | Value | Ref Range | Performed | Pathologist | | | | | At | Signature | + + + + + + | INR | 1.28 (H) | 0.90 - 1.20 INR | [...] with mech. valves (2.5 - 3.5) INR | [facility] | + + + + + + + + | Performing | Address | City/State/Zipcode | Phone Number | | Organization | | | | + + + + + | [facility] | [address] | [place] [address] | | | [facility] | [address] | | | + + + + + documented in this encounter Visit Diagnoses + + | Diagnosis | + + | Epistaxis - Primary | + + documented in this encounter Administered Medications + +--------+ +--------+------+------+ | Medication Order | MAR | Action | Dose | Rate | Site | | | Action | Date | | | | + +--------+ +--------+------+------+ | acetaminophen (aka TYLENOL) | Given | 06/08/19 | 650 mg | | | | tablet 650 mg 650 mg, oral, | | 13 9:44 | | | | | ONCE, 1 dose, Gerardo 06/07/12 at 2200 | | PM PDT | | | | + +--------+ +--------+------+------+ +---+---+ | | | +---+---+ + +-------+ +------+---+---+ | oxyCODONE (immediate release) | Given | 06/09/19 | 5 mg | | | | (aka ROXICODONE) tablet 5 mg 5 | | 13 3:28 | | | | | mg, oral, ONCE, 1 dose, Wed | | AM PDT | | | | | 06/08/12 at 0400 | | | | | | + +-------+ +------+---+---+ +---+---+ | | | +---+---+ documented in this encounter
--- OUTSIDE RECORDS SUMMARY | ~2019-10-20 | XMS | Encounter Summary ---
Demographics + + + | Address | [address] | | | [place] [address] | + + + | Home Phone [...] + + + | Author | [facility] | | | and [place] | + + + | Organization | [facility] | | | [...] Team Providers + +------+ + | Care Pulmonary Function Technician Name | Role | Phone | + +------+ + | Parviz Brar DO | PCP | | + +------+ + Encounter Details +--------+ + + + + | Date | Type | Department | Care Team | Description | +--------+ + + + + | 04/14/ | Orders Only | [facility] | Rupa Watt, | COPD (chronic | | 2014 | | PULMONARY [address] | RN | obstructive | | | | [place], | | pulmonary disease) | | | | [place] [address] | | ([facility]) | | | | [phone] | | | +--------+ + + + [...] | | | | | [place] [address] | | | | | | [phone] | | | | | | | | +--------+---------+ + + + documented as of this encounter Visit Diagnoses + + | Diagnosis | + + | COPD (chronic obstructive pulmonary disease) (HCC) Chronic airway obstruction, not | | elsewhere classified | + + documented in this encounter"
--- OUTSIDE RECORDS SUMMARY | ~2019-10-20 | XMS | Encounter Summary ---
Demographics + + + | Address | [address] | | | [place] [address] | + + + | Home Phone | | + + + | Preferred Language | Unknown | + + + | Marital Status | | + + + | Judaism Affiliation | 1076 | + + + | Race | White | + + + | Ethnic Group | Not or | + + + Author + + + | Author | [facility] | | | and [place] | + + + | Organization | [facility] | | | and [...] Team Providers + +------+ + | Care Tomato Grader Name | Role | Phone | + +------+ + PCP | Unavailable | + +------+ + Encounter Details +--------+ + + + + | Date | Type | Department | Care Team | Description | +--------+ + + + + | 03/31/ | Hospital | [facility] | | | | 1992 | Encounter | [facility] | | | | | | [address] | | | | | | [place] | | | | | | [address] | | | | | | [phone] | | | +--------+ + + + [...] | | | | | [place] [address] | | | | | | [phone] | | | | | | | | +--------+---------+ + + + documented as of this encounter Visit Diagnoses Not on filedocumented in this encounter"
--- OUTSIDE RECORDS SUMMARY | ~2019-10-20 | XMS | Encounter Summary ---
Demographics + + + | Address | [address] | | | [place] [address] | + + + | Home Phone | | + + + | Preferred Language | Unknown | + + + | Marital Status | | + + + | Pentecostalism Affiliation | 1076 | + + + | Race | White | + + + | Ethnic Group | Not or | + + + Author + + + | Author | [facility] | | | and [place] | + + + | Organization | [facility] | | [...] Team Providers + +------+ + | Care Patrol Judge Name | Role | Phone | + +------+ + | Parviz Chamberlain DO | PCP | | + +------+ + Encounter Details +--------+ + + + + | Date | Type | Department | Care Team | Description | +--------+ + + + + | 03/19/ | Hospital | [facility] | Jennifer Benedict, | | | 2015 | Encounter | [facility] | MD [address] | | | | | ELECTROPHYSIOLOGY | [address] [place] | | | | | [address] | [address] | | | | | [place] | [phone] | | | | | [address] | | | | | | [phone] | | | +--------+ + + + [...] + + + | Blood Pressure | 118/72 | 03/19/2014 2:15 PM | | | | | PST | | + + + + + | Pulse | 79 | 03/19/2014 2:15 PM | | | | | PST | | + + + + + | Temperature | 36.9 C (98.4 F) | 03/19/2014 6:24 AM | | | | | PST | | + + + + + | Respiratory Rate | 18 | 03/19/2014 2:15 PM | | | | | PST | | + + + + + | Oxygen Saturation | 93% | 03/19/2014 2:15 PM | | | | | PST [...] different fro m the original. [facility] NAME/: Diego Lucas, (1935) DATE OF [...] below. EKG shows sinus rhythm with normal RI interval and no preexcitation. MASTER PROBLEM LIST: [...] EKG: KG shows sinus rhythm with normal RI interval and no preexcitation. Selected Labs: Lab [...] mg by mouth Daily. [facility] Please provide an O2 concentrator while Diego [...] 30 minutes Thank you for allowing [facility] to be involved in the care of this patient. Please call with any questions . Patient Care Team: Parviz Chamberlain as PCP - General (Family Medicine) Billy Castro MD as Physician (Pulmonary Disease) Noe Worley MD (Cardiology) Note reviewed, agree with above Jennifer Benedict MD RUST documented in this e ncounter Discharge Instructions [...] dizziness Repeated vomiting You cannot be awakened [id number] [employer]. [address] [place] [address], [place] [id number]. All righ ts reserved. This information is [...] puffs into | 1 | 11 | 12/18/ | | | HFA) 90 mcg/puff | [...] 3:28 PM PSTPt up to ambulated in stewrad steady, no dizziness. Tolerated PO fluids, snack.Bila t groins stable. Zandra Gaxiola RN - 03/19/2014 2:16 PM PSTRecd rept from RN assume care. Pt AAOx3, pain free, bilat groins d/i. oCheyenne perez RN - 03/19/2014 10:02 AM PSTIsuprel stopped documented in this encounter H&P Notes Jennifer Benedict MD - 03/19/2014 8:28 AM PSTFormatting of this note might be different fro m the original. [facility] PATIENT NAME: Diego Lucas : 1935: AGE: [...] for ablation Depression Radiation 07/2007 Prostate cancer ([facility]) 2008 s/p radiation treatment and on hormonal treatment with Lupron; DR JULIAN [place] COPD (chronic obstructive pulmonary disease) ([facility]) DR BILLY CASTRO Pneumonia 05/2012 hospitalized [facility] SOB (shortness of breath) on exertion COPD [...] home. No other animal exposures.Grew up in [place]. Then lived in [place]. Then move d to [place]. In the service lived in [facility] and [place]. No recent travel. TOBACCO HISTORY History Smoking [...] into the lungs nightly. Respiratory Therapy Supplies [facility] Please provide an O2 concentrator while Diego [...] in this en counter Procedure Notes ONBASE SHAILESH PERALTA - 03/21/2014 12:00 AM PST 15 6:08 AM Jennifer Herring MD - 03/19/2014 10:[address] [facility] [address] [place] [id number] CARDIOVASCULAR REPORT JENNIFER BENEDICT MD Patient: DIEGO LUCAS Admitting: JENNIFER BENEDICT MR #: [id number] LOC: PT TYPE: Adm Date: 03/19/2014 : 1935 PROCEDURE PERFORMED: 1. Diagnostic electrophysiology study. 2. Recording and pacing from the left atrium. 3. Stimulation after isoproterenol infusion. 4. 3D mapping with NavX system. 5. 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 CHIEF ORTHOPTIST: Jennifer Benedict MD PROCEDURE: Informed consent was [...] Transcribed on 03/19/2014 10:30:26 by tiffanie job# [id number] Confirmation #: [id number] cc: PETE CHAMBERLAIN DO ONBASE SCAN [facility] - 03/14/2014 12:00 AM PSTElectronically signed by Carey Piedra at 5 9:42 AM PSTdocumented in this encounter Miscellaneous Notes Plan of Care - ONBASE SCAN [facility] 03/21/2014 12:00 AM PST iscellaneous - ONBASE SCAN [facility] 03/21/2014 12:00 AM PSTElec tronically signed by Carey Piedra at 03/22/2014 8:32 AM PSTMiscellaneous - ONBASE SCAN [facility] - 03/21/2014 12:00 AM PST i scellaneous - ONBASE SCAN [facility] 03/21/2014 12:00 AM PST iscellaneous - ONBASE SCAN [facility] - 03/14/2014 12:00 AM PSTElectr onically signed by [...] | | | | | [place] [address] | | | | | | [phone] | | | | | | | [...] mg/dL | [facility] | | | | [place] | | SACRED | | | | [facility], [address] | | HEART | | | | [address] [place] [address] | | MEDICAL | | | | [...] + + | BRUNO EVANGELISTA | [address] | [place] [address] | | | [facility] | | | | | LABORATORY | | | | + + + + + DUY no Differential (03/19/2014 6:18 AM PST) + + + [...] | [facility] | | | Count | [place] | | SACRED | | | | [facility], [address] | | HEART | | | | [address] [facility][Note 3] [place] [address] | | MEDICAL | | | | [...] + + | MELISSADISHASteph EVANGELISTA | [address] | [place] [address] | | | [facility] | | | | | LABORATORY | [...] + + + | Glucose | 97Comment: Austrian | 65 - 99 mg/dL | [facility] [...] at | | | | | | [facility] | | | | | | [facility], [address] | | | | | | [address] [place] [address] | | | | + + + + + + + + | Specimen | + + | Blood specimen | | (specimen) | + + + + + + + | Performing | Address | City/State/Zipcode | Phone Number | | Organization | | | | + + + + + | BRUN[facility] EVANGEL[facility] | [address] | [place] [address] | | | [facility] | | | | | LABORATORY | [...]
--- OUTSIDE RECORDS SUMMARY | ~2019-10-20 | XMS | Encounter Summary ---
Demographics + + + | Address | [address] | | | [place] [address] | + + + | Home Phone | | + + + | Preferred Language | Unknown | + + + | Marital Status | | + + + | Hoahaoism Affiliation | 1076 | + + + | Race | White | + + + | Ethnic Group | Not or | + + + Author + + + | Author | [facility] | | | and [place] | + + + | Organization | [facility] | | | and [...] Team Providers + +------+ + | Care Imaging Services Director Name | Role | Phone | + +------+ + | Jason Read | PCP | | | MD | | | + +------+ + Encounter Details +--------+---------+ + + + | Date | Type | Department | Care Team | Description | +--------+---------+ + + + | 09/25/ | Office | [facility] | Jorje Rutledge | Prostate cancer | | 2020 | Visit | [address] | MD [address] | (HCC) (Primary Dx) | | | | [place], [place] | [address] | | | | | [address] | [place] [address] | | | | | [phone] | [phone] | | | | | | | [...] + + + | Blood Pressure | 110/60 | 09/26/2019 9:32 AM | | | | | PDT | | + + + + + | Pulse | 64 | 09/26/2019 9:32 AM | | | | | PDT | | + + + + + | Temperature | - | - | | + + + + + | Respiratory Rate | 16 | 09/26/2019 9:32 AM | | | | | PDT | | + + + + + | Oxygen Saturation | - | - | | + + + + + | Inhaled Oxygen | - | - | | | Concentration | | | | + + + + + | Weight | 75.3 kg (166 lb 0.1 | 09/26/2019 9:32 AM | | | | oz) | PDT | | + + + + + | Height | 177.8 cm (5' 10") | 09/26/2019 9:32 AM | | | | | PDT | | + + + + + | Body Mass Index | 23.82 | 09/26/2019 9:32 AM | | | | | PDT | | + + + + + documented in this encounter Progress Notes Teresa Kaminski, Fire Services Plumber - 09/26/2019 10:00 AM PDT Administrations This Visit gentamicin injection 80 mg Admin Date 09/26/2019 Action Given Dose 80 mg Route Intramuscular Administered By Teresa Lau Fire Services Plumber Patient tolerated injection well. ........................................... Teresa Lau, KVNG on 09/26/19 at 10:08 AM PDT Jorje Gage MD - 09/26/2019 10:00 AM PDTFormatting of this note might be differe nt from the original. Diego is a 83 y.o. male patient of Jason Read MD being seen today for a cystoscopy f or evaluation of gross hematuria. He was in the emergency room 6 weeks ago, with gross hematuria a CT urogram did not show an obvious cause. He is coming for cystoscopy today to evaluate his bladder He is a very pleasant gentleman, who was a patient of Dr. Mercedez Barkley in [place] for man y years. 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 He underwent external beam radiation therapy with Dr. Garza, with post radiation adjuvant Lupron for 1.5 years. His PSA soy was 0.01, and his PSA was rising slowly, and in July 2013 it was 5.38. At th at point Dr. Barkley reinstituted Lupron therapy and Flomax for bladder outlet obstructive sy mptoms. He responded well, and by 2015, his PSA was 0.217. Lupron was discontinued, and hi s PSA gradually hector over the next 2 years to 7.17. He was treated with Lupron again, and h is PSA did drop to 0.494. He has currently been off of Lupron for 15 months (he had a 6-mon th Lupron given in May 302018). His most recent PSA was 3.06. Past Medical History He has a past medical history of Actinic keratosis of scalp, Anemia, Benign prostatic hyper trophy, Bereavement without complication, C. difficile enteritis (2012), CAD (coronary arter y disease), Cataracts, bilateral, Clavicle fracture, COPD (chronic obstructive pulmonary dis ease) ([facility]), Depression, Dermatophytosis tinea capitis, Diverticulosis (01/2015), Essential hypertension, Foot fracture (02/2012), Gastritis (01/2015), GI bleed (01/2015), Heart murmur, Heartburn, Hiatal hernia (01/2015), History of rectal bleeding, Hypoxia, Insomnia, Internal bleeding (2017), Internal bleeding (02/2019), Iron deficiency anemia, Kidney stone (2004), Lumbar disc herniation, Migraines, Mood disorder ([facility]) of unknown (axis III) etiology, Noctu rnal hypoxia, Osteoarthritis, Peptic ulcer disease, Pneumonia (05/2012), Prostate cancer ([facility] ) (2007), Pulmonary nodules, Seborrheic dermatitis of scalp, Shoulder fracture (02/2012), Sup plemental oxygen dependent, SVT (supraventricular tachycardia) ([facility]) (01/2014), TIA (transie nt ischemic attack), and Vasovagal syncope. Past Surgical History He [...] He reports that he quit smoking about 10 years ago. His smoking use included cigarettes and pipe. He has a 6.00 pack-year smoking history. He has never used smokeless tobacco. He repo rts that he does not drink alcohol or use drugs. Allergies Allergen Reactions Penicillins Medications: Outpatient Encounter Medications as of 09/26/2019 Medication Sig Dispense Refill albuterol (PROAIR HFA) 90 mcg/puff inhaler Inhale 2 puffs into the lungs every 6 hours as needed for Wheezing or Shortness of Breath. 1 Inhaler 11 albuterol 2.5 mg/3 mL nebulizer solution Take 2.5 mg by nebulization 2 times daily. amLODIPine (NORVASC) 10 MG tablet ascorbic acid (VITAMIN C) 250 MG tablet Take by mouth. Calcium Carb-Cholecalciferol (CALCIUM-VITAMIN D3) 600-400 MG-UNIT TABS Take 1 tablet by mouth Daily. Taking 800 IU vitamin d ferrous sulfate 325 mg tablet Take 325 mg by mouth daily (with breakfast). fluocinonide (LIDEX) 0.05 % external solution 0 fluticasone (FLOVENT HFA) 220 mcg/puff inhaler Inhale into the lungs. fluticasone-vilanterol (BREO ELLIPTA) 100-25 mcg/puff inhaler Inhale 1 puff into the justice ngs Daily. 1 each 11 HYDROcodone-acetaminophen (NORCO) 10-325 mg per tablet Take 1 tablet by mouth every 6 h ours as needed. ipratropium (ATROVENT HFA) 17 mcg/puff inhaler Inhale 2 puffs into the lungs. ketoconazole (NIZORAL) 2% shampoo 1 leuprolide (LUPRON DEPOT, 4-MONTH,) 30 mg injection Inject 30 mg into the muscle Every 4 months. loratadine (CLARITIN) 10 mg tablet Take by mouth. magnesium hydroxide (MILK OF MAGNESIA) 400 mg/5 mL suspension Take by mouth. Multiple Vitamins-Minerals (ICAPS PO) I-Caps oxyCODONE (ROXICODONE) 5 mg tablet Take by mouth. OXYGEN-HELIUM IN Inhale 2 L into the lungs. oxygen Inhale 2 L into the lungs nightly. oxymetazoline (PX NASAL SPRAY MOISTURIZING) 0.05% nasal spray Instill 2 Sprays into eac h nostril every six hours as needed (Epistaxis). Use for only 3 days. pantoprazole (PROTONIX) 40 mg tablet Take 1 tablet by mouth Daily. 0 polyethylene glycol (MIRALAX) powder Take by mouth. Respiratory Therapy Supplies [facility] Please provide an O2 concentrator while Diego is visiti for nocturnal O2 at 2 l/m. Dx: COPD, Nocturnal hypoxemia 1 each 0 tamsulosin (FLOMAX) 0.4 mg CAPS TAKE TWO CAPSULES BY MOUTH EVERY DAY NEEDED 60 capsu le 11 UNABLE TO FIND by Nasal route. venlafaxine (EFFEXOR XR) 37.5 mg 24 hr capsule Take 37.5 mg by mouth Daily. zolpidem (AMBIEN) 5 mg tablet Take 5 mg by mouth nightly as needed. SLEEP No facility-administered encounter medications on file as of 09/26/2019. PHYSICAL EXAM Vitals: BP 110/60 | Pulse 64 | Resp 16 | Ht 1.778 m (5' 10") | Wt 75.3 kg (166 lb 0.1 o z) | BMI 23.82 kg/m General: Awake, alert, in no acute distress. Speech is fluent. Appears to be stated age. Lungs: Normal respiratory effort, no wheezing, no stridor, no tachypnea. Abdomen: Soft, nontender,. Extremities: Non-edematous. Neuro: Awake, alert, oriented. Psychiatric: Mood and affect are normal. Normal judgment. Skin: Warm and dry, no erythematous rash. Genitalia: No lesion, circumcised. Scrotum is supple and nonerythematous. Phallus is normal in appearance. Benign scrotal contents. Procedure: cystoscopy Consent form signed & time out form completed I discussed with Diego the indications for cystoscopy and the risks, benefits, and alternativ es of cystoscopy. Alternatives include doing nothing or seeking a second opinion. Risks incl ude but are not limited to bleeding, pain, infection, failure of the procedure, need for add itional procedures, inherent risks of any surgical procedure and anesthesia. After obtaining informed consent, Diego was prepped and draped in a sterile fashion. Two perc ent xylocaine was used as a topical anesthetic. The flexible cystoscope was introduced into the urethra and into the bladder. The bladder w as systematically surveyed and investigated and was found to demonstrate slight neovasculari ty, and grade 2 trabeculation, but no obvious bladder tumors, or other lesions. The uretera l orifices and trigone were normal with clear efflux bilaterally. The cystoscope was retrof lexed and the bladder neck region was mildly obstructive in appearance. The cystoscope was slowly withdrawn and the prostate demonstrates 20 to 25 g of trilobar ob structive hypertrophy. The anterior urethra is normal in appearance. The cystoscope is withdrawn. Diego tolerated the procedure well. There were no complications. To summarize, the cystoscopic exam demonstrated mild prostatic obstruction, with some neova scularity of the bladder mucosa, but no obvious neoplasia noted.. DIAGNOSTIC DATA: Urinalysis is negative for blood, nitrites, and leukocyte esterase. PSA 08/01/2019 is 3.06. PSA Date Results 08/01/2019 3.06 [facility] 03/09/2019 1.06 [facility] 12/12/18 0.681 [facility] 11/25/17 7.17 [facility] 08/26/17 4.44 05/28/17 2.56 04/28/17 1.49 02/27/17 1.27 12/28/15 0.247 06/29/15 0.217 04/04/15 3.39 01/04/2015 5.65 09/25/14 4.57 11/2013 0.128 07/2013 5.38 10/2012 2.5 08/2011 0.0172 04/2011 1.32 06/2007 13.9 Lab Results Component Value Date CREA 0.94 03/19/2014 BUN 16 03/19/2014 NA 139 03/19/2014 K 3.9 03/19/2014 CL 109 03/19/2014 CO2 24 03/19/2014 IMPRESSION: Gross hematuria, most likely secondary to neovascularity of the bladder wall Stage T2c to T3 [place] 4+3 = 7 adenocarcinoma the prostate, status post radiation in 2 008 with post radiation ad juvant ADT 1.5 years Post radiation biochemical recurrence, with intermittent hormone ablation since 2013, last Lupron was given in May 2018,doing well Mild bladder outlet obstruction, impr elizabet with as neededtamsulosin PLAN: Diego will return in 3 months with updated labs, to discuss the possibility of androg en deprivation therapy again. There were no obvious lesions that could have caused his fabio s hematuria other than neovascularity of the bladder wall from the radiation therapy that he underwent 12 years ago. I have suggested that we continue to watch for any signs of recurr ent hematuria. Patient instructed to resume usual and customary care with primary care provider. I asked Diego to notify me if there were any difficulties voiding, or UTI symptoms, or flank pain, or for any questions or concerns whatsoever. This document was generated in part using [employer] voice recognition software. Although ever y effort is made to edit the content, credit portfolio advisor errors may occur. Occasional wrong word or [...] | Urology | Jorje Rutledge | | 2019 | Visit | | MD [address] | | | | | | [address] [place] | | | | | | [place] [address] | | | | | | [phone] | | | | | | | | +--------+---------+ + + + + +------+--------+ + + | Name | Type | Priori | Associated Diagnoses | Order Schedule | | | | ty | | | + +------+--------+ + + | Comprehensive | Lab | Routin | Prostate cancer | 1 Occurrences | | Metabolic Panel | | e | (HCC) | starting 09/26/2019 | | | | | | until 09/25/2020 | + +------+--------+ + + | PSA, Diagnostic | Lab | Routin | Prostate cancer | 1 Occurrences | | | | e | (HCC) | starting 09/26/2019 | | | | | | until 09/26/2020 | + +------+--------+ + + | Testosterone, Total | Lab | Routin | Prostate cancer | 1 Occurrences | | | | e | (HCC) | starting 09/26/2019 | | | | | | until 09/25/2020 | + +------+--------+ + + documented as of this encounter Procedures + +--------+ + + + | Procedure Name | Priori | Date/Time | Associated Diagnosis | Comments | | | ty | | | | + +--------+ + + + | POCT URINALYSIS, | Routin | 09/26/2019 | Prostate cancer | Results for this | | AUTO WITH CONF | e | 9:40 AM | ([facility]) | procedure are in the | | | | PDT | | results section. | + +--------+ + + + | LABS - EXTERNAL SCAN | | 07/22/2019 | | Results for this | | | | 12:00 AM | | procedure are in the | | | | PDT | | results section. | + +--------+ + + + documented in this encounter Results POCT Urinalysis (09/26/2019 9:40 AM PDT) + + + + + [...] 1.001 - 1.030 | | | | [place], | | | | | | UA, [...] + + | Urine | + + LABS - EXTERNAL SCAN (07/22/2019 12:00 AM PDT) + + + | [...] | | + +--------+ +-------+------+ + | gentamicin injection 80 mg 80 | Given | 09/26/19 | 80 mg | | Glut-Lef | | mg, Intramuscular, ONCE, Tue | | 20 10:06 | | | t | | 09/26/19 at 1015, For 1 dose, | | AM PDT | | | | | Indications: prophylaxis | | | | | | + +--------+ +-------+------+ + +---+---+ | | | +---+---+ documented in this encounter
--- OUTSIDE RECORDS SUMMARY | ~2019-10-20 | XMS | Encounter Summary ---
Demographics + + + | Address | [address] | | | [place] [address] | + + + | Home Phone | | + + + | Preferred Language | Unknown | + + + | Marital Status | | + + + | Episcopalian Affiliation | 1076 | + + + | Race | White | + + + | Ethnic Group | Not or | + + + Author + + + | Author | [facility] | | | and [place] | + + + | Organization | [facility] | [...] Team Providers + +------+ + | Care Wardrobe Specialty Worker Name | Role | Phone | + +------+ + | Jason Read | PCP | | | MD | | | + +------+ + Reason for Visit + +--------+ + | Reason | Onset | Comments | | | Date | | + +--------+ + | Medication Prior | 11/29/ | Megestrol | | Authorization | 2017 | | + +--------+ + Encounter Details +--------+ + + + + | Date | Type | Department | Care Team | Description | +--------+ + + + + | 11/29/ | Telephone | [facility] | Jorje Rutledge | Medication Prior | | 2017 | | [address] | [address] | Authorization | | | | [place] | [address] | (Megestrol ) | | | | [address] | [place] [address] | | | | | [phone] | [phone] | | | | | | | [...] this encounter Miscellaneous Notes Telephone Encounter - Ying Kate - 12/02/2017 12:45 PM PDTI received fax from [employer] that Megestrol is approved. Approved from 12/02/2017-12/02/2018. Pharmacy notified of appr fernando. Please see referral#[id number] on details. Closed encounter today. elephone Encounter - Ying Kate - 12/01/2017 1 2:57 PM PDTI faxed information to [place] with question about side effects that were noted on Addi i-Comp on medication. Pending response back from provider to review information.Electronical ly signed by Ying Kate at 12/01/2017 12:59 PM PDTTelephone Encounter - Sanam Waddell Brick And Tile Making Machine Operator - 11/29/2017 2:39 PM [facility] prior au thorization for Megestrol Acetrate. Fax forwarded to [facility] auth team to generate referra l. doc umented in this encounter Plan of Treatment +--------+---------+ + + + | Date | Type | Specialty | Care Team | Description | +--------+---------+ + + + | 12/26/ | Office | Urology | Jorje Rutledge | | | 2020 | Visit | | [address] | | | | | | [address] | | | | | | [place] [address] | | | | | | [phone] | | | | | | | | +--------+---------+ + + + documented as of this encounter Visit Diagnoses Not on filedocumented in this encounter"
--- OUTSIDE RECORDS SUMMARY | ~2019-10-20 | XMS | Encounter Summary ---
Demographics + + + | Address | [address] | | | [place] [address] | + + + | Home Phone [...] | Organization | [facility] [...] Team Providers + +------+ + | Care Shaker Plate Operator Name | Role | Phone | + +------+ + | Parviz Brar DO | PCP | | + +------+ + Reason for Visit +--------+--------+ + | Reason | Onset | Comments | | | Date | | +--------+--------+ + | Other | 02/19/ | follow up with CXR | | | 2014 | | +--------+--------+ + Encounter Details +--------+ + + + + | Date | Type | Department | Care Team | Description | +--------+ + + + + | 02/19/ | Telephone | [facility] | Matthew, | Other (follow up | | 2014 | | PULMONARY [address] | Becca Segura MD | with CXR) | | | | [place], | | | | | | [place] [address] | | | | | | [phone] | | | +--------+ + + + [...] Telephone Encounter - Rupa Watt RN - 02/19/2015 9:29 AM PSTCalled Diego and advised that Dr Castro would like to see him lesly few weeks with a CXR as she received notes [facility] regarding his recent admission for pneumonia. Follow up scheduled for 03/06/15 and CXR ordered. Films loaded and merged to [employer] as requested. documented in this encounter Plan of Treatment +--------+---------+ + + + | Date | Type | Specialty | Care Team | Description | +--------+---------+ + + + | 12/26/ | Office | Urology | Jorje Rutledge | | | 2020 | Visit | | MD [address] | | | | | | [address] | | | | | | [place] [address] | | | | | | [phone] | | | | | | | | +--------+---------+ + + + documented as of this encounter Results XR Chest PA and [...] | + + + + + | [facility] | [address] | [place] | [phone] | | [facility] | | [address] | | | - IMAGING | | | | + + + + + documented in this encounter Visit Diagnoses + + | Diagnosis | + + | Pneumonia of left lower lobe due to infectious organism - Primary | + + documented in this encounter"
--- OUTSIDE RECORDS SUMMARY | ~2019-10-20 | XMS | Encounter Summary ---
Demographics + + + | Address | [address] | | | [place] [address] | + + + | Home Phone [...] + +------+ + | Care Public Relations Representative Name | Role | Phone | [...] | | 2012 | Event | [facility] | [address] | | | | | [facility] | [facility], | | | | | [facility] | [place] [address] | | | | | Desk Located on the | [phone] | | | | | 9th floor | | | | | | [place], [place] | | | | | | [address] | | | +--------+ + + + [...] | | 1 | Quick Note | biometric technician reports having used 200mL irrigation. Suction | [...] + + documented as of this encounter OR Notes Anesthesia Postprocedure Evaluation - Josi Cristobal MD - 06/11/2012 7:38 PM PDTForm atting of this note might be different from the original. Diego Lucas [id number] Allergies Allergen Reactions Paper First Aid Tape (Adhesive Tape) Hives and Rash Past Surgical History Procedure Date Back surgery Evaluation Patient personally seen and evaluated for recovery from anesthesia care, VS including tempe rature and hydration status are normal and ROS including card, resp, Neuro, and GI w/o evide nce of adverse effects Complications nesthesia Prepro cedure Evaluation - Jsoi Cristobal MD - 06/11/2012 4:46 PM PDT Diego Lucas [phone] Allergies Allergen Reactions Paper First Aid Tape (Adhesive Tape) Hives and Rash NPO: Last Vitals: Preg Status/LMP: Patient Active Problem List Diagnoses Epistaxis Anemia Past Surgical History Procedure Date Back surgery Current Medication List Name Sig Last Dose AMLODIPINE 5 MG TABLET Take 5 mg by mouth once daily in the morning. Indications: HYPERTENS ION 06/05/2012 ASCORBIC ACID 250 MG TABLET Take 250 mg by mouth two times daily. 06/05/2012 ASPIRIN 81 MG CHEWABLE TABLET Take 81 mg by mouth once daily. 06/05/2012 CEPHALEXIN 500 MG CAPSULE Take 1 Cap by mouth every six hours for 6 days. Indications: Infe ction prevention while nasal packing is in place CETIRIZINE 5 MG TABLET Take 5 mg by mouth two times daily. Within last 7 days DOCUSATE SODIUM 100 MG CAPSULE Take 100 mg by mouth twice daily as needed. Within last 30 d ays FERROUS SULFATE 325 MG (65 MG IRON) TABLET Take 325 mg by mouth two times daily. Within las t 7 days FLUTICASONE 220 MCG/ACTUATION AEROSOL INHALER Inhale 1 Puff two times daily. 06/05/2012 IPRATROPIUM BROMIDE 17 MCG/ACTUATION HFA AEROSOL INHALER Inhale 2 Puffs four times daily as needed. 06/05/2012 LORATADINE 10 MG TABLET Take 10 mg by mouth once daily. 06/05/2012 MAGNESIUM HYDROXIDE 400 MG/5 ML ORAL SUSP Take 30 mL by mouth once daily as needed. Within last 30 days OMEPRAZOLE 20 MG CAPSULE,DELAYED RELEASE Take 20 mg by mouth once daily in the morning. Ind ications: GASTROESOPHAGEAL REFLUX 06/05/2012 OXYCODONE 5 MG TABLET Take 1 Tab by mouth every six hours as needed for severe pain. POLYETHYLENE GLYCOL 3350 17 GRAM/DOSE ORAL POWDER Take 17 g by mouth once daily. 06/05/2012 TAMSULOSIN ER 0.4 MG CAPSULE,EXTENDED RELEASE 24 HR Take 0.4 mg by mouth once daily in the evening. Indications: BENIGN PROSTATIC HYPERTROPHY 06/05/2012 TEMAZEPAM 15 MG CAPSULE Take 15 mg by mouth once daily at bedtime as needed. Within last 7 days No results found for this basename: rate, atrialrate, pr, qrs, qt, qtc, paxis, raxis, taxis , ekgdx Preoperative Adult Anesthesia Plan No anesthesia note exists Anesthesia Plan Comments ASA ASA 3 emergent NPO Status NPO Status: NPO by protocol Monitors/Lines to be used Anesthetic Consideration Increased Aspiration Risk, PONV prophylaxis and Difficult airway Induction intravenous and rapid sequence induction Anesthetic Technique General; Post-Op Pain Plan IV analgesics; Blood Products T and C; Interpretive Services Informed Consent PARQ discussed with: patient, Procedures, Alternatives, Risks, and Questions discussed and Risk/benefit of anesthesia plan and blood product discussed Code status in OR Patients Code Status in OR: FULL 06/11/2012 4:46 PM documented in this enco unter Miscellaneous Notes Ane airway standard - Josi Cristobal MD - 06/11/2012 5:26 PM PDTProcedure Reason for Intubation: For surgical procedure, Location Performed: OR , Patient was preoxyg enated Mask Ventilation Grade 0 - Ventilation by mask not attempted Rapid Sequence Induction: with cricoid Intubation Blade type: Homero , Blade size: 4, Intubation adjuncts: N/A , Laryngoscopic view: Grade I, Fiberoptics used: N/A , Number of Attempts: 1, Positive for EtCO2: Yes, Breath sounds: B ilateral and equal ETT Ett Adult: Single-lumen cuffed ETT Size: 7.5 ETT secured with: adhesive tape Depth at Li p: 23 cm Airway leak: No LMA Narrative Attending physically present Attending: RISA BURROWS Performed by Resident RAMA, Antonia GIBBSA About to secure tube when a leak was heard. Bilateral breath sounds + EtCO2 present. DL with MAC 4 again and noted top of cuff was visible. Deflated cuff and advanced ETT further down - no leak present. Secured. Atraumatic laryngoscopy. MC/ANE PreOp Not e - Josi Cristobal MD - 06/11/2012 4:46 PM PDT ROS Pulmonary: Uses 1.5L oxygen at night shortness of breath COPD severe (O2) Cardiovascular: Functional Capacity: Low - chest pressure no CAD no CHF hypertension GI/Hepatic: no GI Bleed no GERD : Within Defined Limits except as noted below Endo: Within Defined Limits except as noted below Neurological: MS: History of back surgery Within Defined Limits except as noted below arthritis Heme/Onc: Epistaxis, s/p IR embolization with recurrent bleed. Currently bleed is controll ed using galan catheter with balloon up. Dried blood seen in oropharynx and on gauze, but n o active signs of bleeding. Pt. has: active bleeding Skin: Physical Exam General: Patients general appearance: Mild distress and Age appropriate Head & Neck/Airway: Neck ROM: full TM Distance:> 6cm Dentition: missing teeth Dental risk discussed with/pt : Yes Lester: No M allampati: II Mouth Opening: > = 3 cm C-Spine: normal Neck Anatomy: Normal Jaw Protrusion: Normal, lower incisors can protrude past upper incisors Lung Exam: breath sounds normal Cardiac: Tachycardic Rhythm: regular murmur Abdominal: General Findings: Deferred Musculoskeletal: Neuro/Psych: alert Findings: Alert, oriented to person, place, time Integument: Color: pink Implants: documented in thi s encounter Plan of Treatment Not on filedocumented [...] | | Until 06/11/12 at 1927 | iology | | [...] | | | | | 06/11/12 at 7 | | | | | | + [...] | | | | | 06/11/12 at 7 | iology | | | | | [...] | Until 06/11/12 at 1927 | | | [...] | Until 06/11/12 at 1927 | | | [...]
--- OUTSIDE RECORDS SUMMARY | ~2019-10-20 | XMS | Encounter Summary ---
Demographics + + + | Address | [address] | | | [place] [address] | + + + | Home Phone | | + + + | Preferred Language | Unknown | + + + | Marital Status | | + + + | Sabianism Affiliation | PRE | + + + [...] Team Providers + +------+ + | Care Lighting Engineer Name | Role | Phone | [...] | +--------+ + + + + | 06/06/ | Emergency | [facility] | Keith Shah, | | | 2012 | | Department [address] | [address] | | | | | [facility] | [place], [place] | | | | | [facility] | [address] | | | | | [place], [place] | | | | | | [address] | | | | | | [phone] | | | +--------+ + + + [...] + + + | Blood Pressure | 146/76 | 06/06/2012 7:14 AM | | | | | PDT | | + + + + + | Pulse | 90 | 06/06/2012 7:14 AM | | | | | PDT | | + + + + + | Temperature | 36.7 C (98.1 F) | 06/06/2012 2:49 AM | | | | | PDT | | + + + + + | Respiratory Rate | 16 | 06/06/2012 7:14 AM | | | | | PDT | | + + + + + | Oxygen Saturation | 93% | 06/06/2012 7:14 AM | | | | | PDT [...] + + documented in this encounter Discharge Instructions Keith Horn - 06/06/2012Thank you for visiting the [facility] and for your patience. I am glad we could get the bleeding to stop. In the morning call your primary care doctor to ask about the humidified oxygen. Use Green [place] twice a day in both nostrils to keep the lining moist. Check in with your PCP in about 1 week to make sure you are doing well. If you have any problems you can call the Ear Nose and Throat doctors/Otolaryngology (Head & Neck Surgery): [phone]. Afrin as needed: if a new episode of bleeding occurs, spray 2 large doses of Afrin into eac h nostril and hold FIRM pressure on the front, soft part of the nose for a full 20 minutes. Re-evaluate. If still bleeding after that, return to the ED. documented in this encounter Medications at Time [...] documented as of this encounter Consult Notes Carlos Perez MD - 06/06/2012 3:56 AM PDTFormatting of this note might be differen t from the original. Otolaryngology/Head and Neck Surgery Epistaxis Patient Consult Attending: Ishaan Cortez MD Referring MD: ED CC: epistaxis HPI: Diego Lucas is a 76 y.o. male with COPD on home O2 at night who is referred for eval uation of epistaxis. Symptoms began at 19:30 tonight after a BM. He bled from the right. H e takes aspirin but no other anticoagulants. Denies prior trauma or nasal surgery. No prior history of bleeding disorder. He had another nose bleed 6 months ago. Patient was recently admitted for a COPD exacerbation and pneumonia and is now on home O2 at night. This is not humidified. [facility] and a right anterior/posterior rapid rhino was p laced after a trial of afrin and pressure. This temporized the patient and he was referred to [facility]. ROS: denies fevers, chills, visual changes, headaches, vertigo, nausea, shortness of kimberly th, chest pain. Past Medical History Diagnosis Date Pneumonia COPD Gastroesophageal reflux Benign hypertrophy of prostate Unspecified essential hypertension No past surgical history on file. No current facility-administered medications for this encounter. Current outpatient prescriptions:amLODIPine 5 mg Oral tablet, Take 5 mg by mouth once daily in the morning. Indications: HYPERTENSION, Disp: , Rfl: ascorbic acid 250 mg Oral tablet, Take 250 mg by mouth two times daily., Disp: , Rfl: aspirin chewable 81 mg Oral tablet, chewable, Take 81 mg by mouth once daily., Disp: , Rfl: cetirizine 5 mg Oral tablet, Take 5 mg by mouth two times daily., Disp: , Rfl: docusate sodium 100 mg Oral capsule, Take 100 mg by mouth twice daily as needed., Disp: , R fl: ferrous sulfate 325 mg (65 mg iron) Oral tablet, Take 325 mg by mouth two times daily., Dis p: , Rfl: fluticasone 220 mcg/actuation Inhalation Aerosol (Aero), Inhale 1 Puff two times daily., Di sp: , Rfl: ipratropium 17 mcg/actuation Inhalation HFA Aerosol Inhaler, Inhale 2 Puffs four times angela y as needed., Disp: , Rfl: loratadine 10 mg Oral tablet, Take 10 mg by mouth once daily., Disp: , Rfl: magnesium hydroxide 400 mg/5 mL Oral Suspension, Take 30 mL by mouth once daily as needed., Disp: , Rfl: moxifloxacin (AVELOX) 400 mg Oral tablet, Take 400 mg by mouth once daily., Disp: , Rfl: omeprazole 20 mg Oral capsule,delayed release(DR/EC), Take 20 mg by mouth once daily in the morning. Indications: GASTROESOPHAGEAL REFLUX, Disp: , Rfl: oxyCODONE, immediate release, 5 mg Oral tablet, Take 10 mg by mouth every four hours as nee ded., Disp: , Rfl: polyethylene glycol 17 gram/dose Oral Powder, Take 17 g by mouth once daily., Disp: , Rfl: tamsulosin 0.4 mg Oral capsule,extended release 24hr, Take 0.4 mg by mouth once daily in th e evening. Indications: BENIGN PROSTATIC HYPERTROPHY, Disp: , Rfl: temazepam 15 mg Oral capsule, Take 15 mg by mouth once daily at bedtime as needed., Disp: , Rfl: Allergies Allergen Reactions Paper First Aid Tape (Adhesive Tape) Hives and Rash History Social History Marital Status: Spouse Name: N/A Number of Children: N/A Years of Education: N/A Occupational History Not on file. Social History Main Topics Smoking status: Not on file Smokeless tobacco: Not on file Alcohol Use: Drug Use: Sexually Active: Not on file Other Topics Concern Not on file Social History Narrative No narrative on file PHYSICAL EXAM: BP 125/92, Pulse 99, Temperature 36.7 C (98.1 F), RR 20, SpO2 94%. Alert, NAD, breathing comfortably. Head: Atraumatic, symmetric CN: 2-12 grossly intact including all branches of CN VII, CN V Ears: hearing normal to conversational voice Nose: Right rapid rhino removed. Slow ooze posteriorly seen dripping down into the orophar ynx. This was not seen anteriorly. No caudal septal bleeding appreciated on either side. Normal external anatomy, no bony stepoffs. septum midline. No septal hematoma. . mouth/throat: oropharynx with mild ooze of fresh blood, mmm, tongue midline Neck: no LAD or masses, no thyromegaly. Good laryngeal motion with swallow. Procedure: Floseal injection One box of floseal was prepared according to vice investigator's instructions. The Patient was t old to gently blow nose, and afrin was applied to the right nostril. Using a nasal speculum , the floseal applicator was used to squirt the prepared foam into the nasal cavity on both sides. The patient tolerated this well with no discomfort. No further bleedign was witnesse d. Assessment and Plan Diego Lucas is a 76 y.o. male with recurrent epistaxis, now controlled with application o f Floseal. - Expect the clot to slowly dissolve over many days. A small amount of blood tinged secret ions is normal. - The packing does not need to be removed as it will absorb on its own. - DC with Afrin. If the patient has an episode of bleeding, spray 2 large doses of Afrin i nto each nostril and hold FIRM pressure on the anterior, soft part of the nose for a full 20 minutes. Re-evaluate. If the patient is still bleeding, call [facility] or return to the ED. - Green's spray BID to bilateral nasal cavities for moisture and help facilitate absorption of the packing. - Humidify home O2. - Follow up with PCP. - Return to ED if severe or persistent bleeding The attending of record is Ishaan Cortez MD. Carlos Perez MD Resident Physician- Department of Otolaryngology- Head and Neck Surgery [facility] . documented in this en counter ED Notes Alfred Roque RN - 06/06/2012 8:05 AM PDTRN DISCHARGE NOTE: The patient verbalizes understanding of written discharge/home care instructions as a evide nced by Follow-up plan of care reviewed w/ patient, Pt voiced understanding of plan of care and Written dx instructions reviewed w/ patient. The patient was discharged Carried via Med ical Transport with medics in no emergent distress. Alfred Caldera RN - 06/06/2012 7:15 AM PDTPatient alert and oriented x 4, no active bleeding from nose, awaiting discharge and transport home. Patie nt given water to sip on, call light in reach. Mer Rivera RN - 06/06/2012 7:00 AM PDTPt is waiting for transp ort. MINI BACCARAT DEALER NOTE: The patient verbalizes understanding of written discharge/home care instructions as a evide nced by Follow-up plan of care reviewed w/ patient, Pt voiced understanding of plan of care and Written dx instructions reviewed w/ patient. The patient was discharged Wheelchair via Medical Transport with self in no emergent distress. Bleeding has been stopped since pt seen by ENT. No continued bleeding down back of throat o r out nares. Davina Quiroz RN - 06/06/2012 6:16 AM PDTMedical transportation arranged through [address] onically signed by Sierra Coulter RN at 06/06/2012 6:17 AM Keith Figueroa - 06/07/19 13 5:41 AM PDT ED Individual Provider Note, KEITH SHAH MD: HPI Patient referred here for ENT evaluation for epistaxis. Is newly on home O2 at night and had R sided epistaxis beginning earlier this evening. Went to referring hospital, where efforts to stop bleeding were unsuccessful. They placed anteri or and posterior packing and he still had blood dripping down the back of his throat so they spoke to Dr. Bustamante of ENT who accepted him for ED ENT evaluation. The transfer was uneventful and the bleeding had stopped, but on arrival here it was again draining briskly down the back of his throat. No SOB. Feels nauseous. Is on aspirin but not Coumadin. PCP: Parviz Brar, DO There are no active problems to display for this patient. Past Medical History Diagnosis Date Pneumonia COPD Gastroesophageal reflux Benign hypertrophy of prostate Unspecified essential hypertension Medications Prior to Admission Medications Medication Last Dose Informant Patient Reported? Taking? amLODIPine 5 mg Oral tablet 06/05/2012 Yes Yes Take 5 mg by mouth once daily in the morning. Indications: HYPERTENSION ascorbic acid 250 mg Oral tablet 06/05/2012 Yes Yes Take 250 mg by mouth two times daily. aspirin chewable 81 mg Oral tablet, chewable 06/05/2012 Yes Yes Take 81 mg by mouth once daily. cetirizine 5 mg Oral tablet Within last 7 days Yes Yes Take 5 mg by mouth two times daily. docusate sodium 100 mg Oral capsule Within last 30 days Yes Yes Take 100 mg by mouth twice daily as needed. ferrous sulfate 325 mg (65 mg iron) Oral tablet Within last 7 days Yes Yes Take 325 mg by mouth two times daily. fluticasone 220 mcg/actuation Inhalation Aerosol (Aero) 06/05/2012 Yes Yes Inhale 1 Puff two times daily. ipratropium 17 mcg/actuation Inhalation HFA Aerosol Inhaler 06/05/2012 Yes Yes Inhale 2 Puffs four times daily as needed. loratadine 10 mg Oral tablet 06/05/2012 Yes Yes Take 10 mg by mouth once daily. magnesium hydroxide 400 mg/5 mL Oral Suspension Within last 30 days Yes Yes Take 30 mL by mouth once daily as needed. moxifloxacin (AVELOX) 400 mg Oral tablet Within last 7 days Yes Yes Take 400 mg by mouth once daily. omeprazole 20 mg Oral capsule,delayed release(DR/EC) 06/05/2012 Yes Yes Take 20 mg by mouth once daily in the morning. Indications: GASTROESOPHAGEAL REFLUX oxyCODONE, immediate release, 5 mg Oral tablet 06/05/2012 Yes Yes Take 10 mg by mouth every four hours as needed. polyethylene glycol 17 gram/dose Oral Powder 06/05/2012 Yes Yes Take 17 g by mouth once daily. tamsulosin 0.4 mg Oral capsule,extended release 24hr 06/05/2012 Yes Yes Take 0.4 mg by mouth once daily in the evening. Indications: BENIGN PROSTATIC HYPERTROPHY temazepam 15 mg Oral capsule Within last 7 days Yes Yes Take 15 mg by mouth once daily at bedtime as needed. Allergies Allergen Reactions Paper First Aid Tape (Adhesive Tape) Hives and Rash SH: just had trach placed FH: Not obtained ROS Gen: no fever or chills Head: No headache ENT: As above Neck: No neck pain CV: No CP Pulm: No SOB Abd: + nausea : No dysuria MSK: No extremity pain Skin: No rashes Endo: No h/o problems with blood sugars Psych: No anxiety ED Triage Vitals BP Temp Pulse Resp SpO2 06/06/12 0245 06/06/12 0249 06/06/12 0249 06/06/12 0249 06/06/12248 125/92 mmHg 36.7 C 90 20 89 % Physical Exam Monitor interpretation: no hypoxia or arrhythmia Gen: alert, gagging and using hand held suction to remove blood in oropharynx. No respirato ry distress. Head: atraumatic ENT: R nasal packing in place. No bleeding anteriorly but brisk posterior bleeding as above . Neck: supple CV: RRR no m/g/r Lungs: CTAB with equal BS Neuro: normal gait Skin: well-perfused, pink ED COURSE AND MEDICAL DECISION MAKING: Is currently maintaining his airway with self-suctioning. The bleeding did taper off by the time the ENT resident arrived in the ED. He removed the packing, scoped the patient and myah lied Floseal. See his note for further details. He was observed for 2 more hours and the bleeding had resolved. He was safe to be discharge d home; the Floseal will dissolve on its own. The underlying cause is most likely irritation from his non-humidified O2. He should addres s this with his PCP. His hematocrit was slightly low at 34 but not in a range necessitating transfusion. His coag panel was normal. IMPRESSION: 784.7 Epistaxis PLAN, DISPOSITION AND FOLLOW-UP: D/c home Afrin prn future bleed Humidify his O2. Mer Rivera RN - 013 5:31 AM PDTNo active bleeding at this time. Pt is resting/sleeping. Cheyenne Haskins RN - 06/06/2012 4:05 AM PDTBlood drawn and sent to lab. Cheyenne Brandon RN - 06/06/2012 3:48 AM PDT ent md at bedside. rn assist with procedure. Mer Rivera RN - 06/06/2012 3:02 AM PDTPt here today w/ Epistaxis f rom Yarsani. Active bleeding, packing done in R nostril. Oozing and some dripping blood from L nostril. Pt gvn oral suction, alleviating sxs. Pt A&Ox4. Pt is on O2 at home. sats 89% on RA, NC placed in pt's mouth. Sierra Quiroz RN - 06/06/2012 2:20 AM PDTRN-DIVYA santana. Pt presented with epistaxis starting at 1800, packed multiple times at referring, patrol agent iorly packed now and not bleeding. Airway intact. Coming to [facility] for ENT. Hx of COPD, oxygen dependent on 4L NC, using O2 via NC in mouth. Pt had a recent hospitalization for a fall an d later pneumonia. Pt lives in [facility], but is at a care facility due to the recent h ospitalization. 20 G RAC. Had Afrin spray during packing. Keith Figueroa - 06/06/2012 1:15 AM PDTReferring MD Emilio Alvarado. He spoke to Dr. Bustamante, FANG here. Patient coming for ENT evaluation of epistaxis. Recently d/cd on NC O2. Epistaxis began tonight at 1930. Tried Afrin, anterior packing, bled through that, coughing/choking. Now anterior/posterior packing seems to be working. Hgb 11. No ENT there tonight. Now supplying O2 through his mouth. 1 :18 AM PDTdocumented in this encounter Miscellaneous Notes Scan - Other, Faculty - 06/09/2012 9:32 AM PDTElectronically signed by Faculty Other at 9:32 AM PDTScan - Other, Faculty - 06/07/2012 9:39 AM PDT can - Other, Faculty - 06/07/2012 8:57 AM PDTElec tronically signed by Faculty Other at 06/07/2012 8:57 AM PDTED Teaching Notes - Erica Shah - 06/06/2012 3:20 AM PDTTeaching note not needed. omearlene Kunz Will ford - 06/06/2012 2:28 AM [id number] eta 5-7 76yom, epistaxis, hr 100 bp 165/100 96% eta 5- 7 omLiana Heath - 06/06/2012 1:16 AM PDTNotified ed gas charger, bed flow managers pagedElectronic ally signed by Gavin Kunz at 06/06/2012 1:17 AM PDTGavin Escamilla - 06/06/2012 1:[address] Cortez with ENT - connected. Came in today with nose ble ed started at 1930, not responding to treatment, sats 88% ra, has PNA - o2 is in his mouth r ight now, no ENT coverage at ref, pt to come to ED. Connected to Dr Shah for report. Elec tronically signed by Gavin Kunz at 06/06/2012 1:15 AM PDTdocumented in this encounte r Plan of Treatment Not on filedocumented as of this encounter Procedures + +--------+ + + + | Procedure Name | Priori | Date/Time | Associated Diagnosis | Comments | | | ty | | | | + +--------+ + + + | CONFIRMATORY ABO/RH | Urgent | 06/06/2012 | | Results for this | | | | 4:25 AM | | procedure are in the | | | | PDT | | results section. | + +--------+ + + + | RAINBOW HOLD TUBE - | Urgent | 06/06/2012 | | | | GREEN TOP | | 2:58 AM | | | | | | PDT | | | + +--------+ + + + | INR | Urgent | 06/06/2012 | | Results for this | | | | 2:58 AM | | procedure are in the | | | | PDT | | results section. | + +--------+ + + + | APTT (ACT. PART. | Urgent | 06/06/2012 | | Results for this | | THROMBO TIME) | | 2:58 AM | | procedure are in the | | | | PDT | | results section. | + +--------+ + + + | ANTIBODY SCREEN | Urgent | 06/06/2012 | | Results for this | | | | 2:49 AM | | procedure are in the | | | | PDT | | results section. | + +--------+ + + + | ABO & RH TYPE | Urgent | 06/06/2012 | | Results for this | | | | 2:49 AM | | procedure are in the | | | | PDT | | results section. | + +--------+ + + + | CBC ONLY | Urgent | 06/06/2012 | | Results for this | | | | 2:49 AM | | procedure are in the | | | | PDT | | results section. | + +--------+ + + + | CBC ONLY | Urgent | 06/06/2012 | | Results for this | | | | 2:49 AM | | procedure are in the | | | | PDT | | results section. | + +--------+ + + + | TYPE AND SCREEN | Urgent | 06/06/2012 | | Results for this | | | | 2:49 AM | | procedure are in the | | | | PDT | | results section. | + +--------+ + + + documented in this encounter Results CONFIRMATORY ABO/RH (06/06/2012 4:25 AM PDT) + + + + + [...] [facility] | [address] | [place] [address] | | | SERVICES, | [address] | | | | TRANSFUSION MEDICINE | | | | + + + + + RAINBOW HOLD TUBE - GREEN TOP (06/06/2012 2:58 AM PDT) + + | Specimen | + + | Blood - Blood | + + + + + + + | Performing | Address | City/State/Zipcode | Phone Number | | Organization | | | | + + + + + | [facility] | [address] | [address] | | | SERVICES, CORE | [address] | | | + + + + + APTT (ACT. PART. THROMBO TIME) (06/06/2012 2:58 AM PDT) + +-------+ + + + | Component | Value | Ref Range | Performed | Pathologist | | | | | At | Signature | + +-------+ + + + | APTT | 30.4 | 26.0 - 36.0 | [facility] | | | | | seconds | LABORATORY | | | | | | SERVICES, | | | | | | CORE | | + +-------+ + + + + + | Specimen | + + | Blood - Blood | + + + + + | Narrative | Performed At | + + + | APTT Therapeutic Range: (75 - | [facility] | | 120) sec Heparin levels of 0.35 - 0.7 U/mL | LABORATORY | | | SERVICES, CORE | + + + + + + + + | Performing | Address | City/State/Zipcode | Phone Number | | Organization | | | | + + + + + | [facility] | [address] | [place] [address] | | | SERVICES, CORE | [address] | | | + + + + + INR (06/06/2012 2:58 AM PDT) + + + + + + | Component | Value | Ref Range | Performed | Pathologist | | | | | At | Signature | + + + + + + | INR | 1.24 (H) | 0.90 - 1.20 INR | [...] mech. valves (2.5 - 3.5) INR | SERVICES, CORE | + + + + + + + + | Performing | Address | City/State/Zipcode | Phone Number | | Organization | | | | + + + + + | [facility] | [address] | [address] | | | SERVICES, CORE | [address] | | | + + + + + ANTIBODY SCREEN (06/06/2012 2:49 AM PDT) + + + + + [...] + | [facility] | [address] | [address] | | | SERVICES, | [address] | | | | TRANSFUSION MEDICINE | | | | + + + + + ABO & RH TYPE (06/06/2012 2:49 AM PDT) + + + + + [...] [facility] | [address] | [address] | | | SERVICES, | [address] | | | | TRANSFUSION MEDICINE | | | | + + + + + CBC (06/06/2012 2:49 AM PDT) + + + + + + | Component | Value | Ref Range | Performed | Pathologist | | | | | At | Signature | + + + + + + | WBC COUNT | 9.6 | 4.4 - 11.0 K/cu | [facility] | | | | | mm | LABORATORY | | | | | | SERVICES, | | | | | | CORE | | + + + + + + | RED CELL | 4.00 (L) | 4.50 - 5.90 | [facility] | | | COUNT | | M/cu mm | LABORATORY | | | | | | SERVICES, | | | | | | CORE | | + + + + + + | HEMOGLOBIN | 10.7 (L) | 13.5 - 17.5 | [facility] | | | | | g/dL | LABORATORY | | | | | | SERVICES, | | | | | | CORE | | + + + + + + | HEMATOCRIT | 34.1 (L) | 41.0 - 53.0 % | [...] + + + + | MCHC | 31.5 (L) | 33.4 - 35.5 | [facility] | | | | | g/dL | LABORATORY | | | | | | SERVICES, | | | | | | CORE | | + + + + + + | RDW | 22.4 (H) | 11.5 - 15.0 % | [facility] | | | | | | LABORATORY | | | | | | SERVICES, | | | | | | CORE | | + + + + + + | PLATELET | 207 | 150 - 400 K/cu | [facility] [...] Performed At | + + + | Few platelet clumps on smear. Final platelet report. Final WBC | [facility] | | report. | LABORATORY | | | [facility] | + + + + + + + + | Performing | Address | City/State/Zipcode | Phone Number | | Organization | | | | + + + + + | [facility] | [address] | [address] | | | [address] | [address] | | | + + + + + documented in this encounter Visit Diagnoses + + | Diagnosis | + + | Epistaxis - Primary | + + documented in this encounter"
--- OUTSIDE RECORDS SUMMARY | ~2019-10-20 | XMS | Encounter Summary ---
Demographics + + + | Address | [address] | | | [place] [address] | + + + | Home Phone [...] | NA | | | | | [place] | | + + + + + Care Team Providers + +------+ + | Care Seaport Planning Manager Name | Role | Phone | [...] +--------+---------+ + + + | 06/11/ | Office | [facility] [place] | Offenstein, | COPD (chronic | | 2014 | Visit | PULMONARY [address] | Billy Segura MD | obstructive | | | | [place], | | pulmonary disease); | | | | [place] [address] | | Nocturnal hypoxemia | | | | [phone] | | due to emphysema | | [...] + + + | Blood Pressure | 128/78 | 06/11/2014 2:05 PM | | | | | PDT | | + + + + + | Pulse | 93 | 06/11/2014 2:05 PM | | | | | PDT | | + + + + + | Temperature | - | - | | + + + + + | Respiratory Rate | 16 | 06/11/2014 2:05 PM | | | | | PDT | | + + + + + | Oxygen Saturation | 93% | 06/11/2014 2:05 PM | | | | | PDT | | + + + + + | Inhaled Oxygen | - | - | | | Concentration | | | | + + + + + | Weight | 79.4 kg (175 lb) | 06/11/2014 2:05 PM | | | | | PDT | | + + + + + | Height | 177.8 cm (5' 10") | 06/11/2014 2:05 PM | | | | | PDT | | + + + + + | Body Mass Index | 25.11 | 06/11/2014 2:05 PM | | | | | PDT | | + + + + + documented in this encounter Patient Instructions Patient Instructions Billy Castro MD - 06/11/2014 2:52 PM PDT No changes. Stay on Qvar and Atrovent and keep walking! Stay on oxygen at night at 2L. If you go to [place], make sure you take the oxygen like before. June 11, 2014 Diego Lucas [address] [place] [address] Dear Diego: Thank you for enrolling in nap- Naturally [employer] Parents. Please follow the instructions below to view your EmSense online medical record. nap- Naturally [employer] Parents allows you to send secure messages to your doctor, view you r test results, renew your prescriptions, schedule appointments, and more. How Do I Sign Up? 1. In your Internet browser, go to [email or web address] 2. Click on the "Sign up with your activation code" button in the "New User?" box. This iza l take you to the New Member Sign Up page. 3. Enter your nap- [employer] Parents activation code exactly as it appears below. You will not need to use this code after you sign up. If you do not sign up before the expiration date, you must req uest a new code through your [place] or [facility] participating clinic. nap- Naturally [employer] Parents Activation Code: [email or web address] Expires: 08/10/2014 14:54 4. Fill in the last four digits of your Social Security Number (xxxx) and Date of (mm /dd/yyyy) and click Next. 5. Create a ReadyPulse username. Your username cannot be changed, so think of one t hat is secure and easy to remember. 6. Create a nap- Naturally Attached Parents password. You can change your password at any time. 7. Enter your security question and answer. This can be used at a later time if you forget your password. Click Next. 8. Enter your e-mail address. You will receive e-mail notification when new information is available in nap- [employer]. 9. Click "Sign In". You may now view your medical record. Additional Information If you have questions, you can email Pay by Shopping ([email or web address] or call [phone] to talk to our [facility] care team. Please remember, nap- [employer] Parents should NOT be used for urg ent needs. For all medical emergencies, call 911. Sincerely, Billy Castro MD documented in this encounter Progress Notes Billy Castro MD - 06/11/2014 2:12 PM PDTFormatting of this note might be differe nt from the original. Pulmonary Follow Up HPI Diego Lucas is a 78 y.o. male patient of Parviz Brar here today for follow up o f COPD. At their last visit, we had continued him on Flovent and Atrovent. Since their last visit johnathon rodriguez feels like he has been doing pretty good. He underwent an SVT ablation at [facility] ce his last visit, which went well, and he has been doing well since that was done. He is currently on a regimen of Qvar 80 mcg 2 puffs twice daily (changed due to insurance r easons), and Atrovent 2 puffs 3-4 times daily. He does feel like this medication regimen is working for them. He has a Ventolin inhaler, but he last filled it last Summer, so uses it rarely. He returns today for routine follow up. Currently he is able to walk 10-12 blocks at his own pace on level ground. He is exercising regularly. He walks routinely. He does cough sometimes, and does produce mucous. The mucous is yellow in color. He has not had hemoptysis. He has been evaluated for nocturnal oxygen and does use it. He is currently on 2 L[facility] at [facility]. He reports good compliance. He does not have symptoms of heartburn or reflux. He has had symptoms of nasal congestion, runny nose or post nasal drip. He takes an allergy medication which helps. Past Medical History Past Medical History Diagnosis Date Peptic ulcer disease with upper GI bleed Benign prostatic hypertrophy Osteoarthritis Heartburn Pulmonary nodules Shoulder fracture 02/2012 Foot fracture 02/2012 SVT (supraventricular tachycardia) 01/[address] Wilder for ablation Depression Prostate cancer ([facility]) 2007 s/p radiation treatment and on hormonal treatment with Lupron; DR JULIAN [place] COPD (chronic obstructive pulmonary disease) ([facility]) DR BILLY CASTRO Pneumonia 05/2012 hospitalized [facility] Heart murmur DR MARIAA OLIVERA Cataracts, bilateral s/p removal Kidney stone 2004 Hypertension TIA (transient ischemic attack) SEVERAL. LAST TIME 2012.NO RESIDUAL; CT SCAN/ ANGIO IN PAST Migraines Supplemental oxygen dependent 02@2L AT NIGHT C. difficile enteritis 2012 Lumbar disc herniation Past Surgical History Past Surgical History Procedure Laterality Date Pancreas surgery 1973 Appendectomy Cyst removal from back Nasal hemorrhage control 05/2012 Cataract removal with implant 11/2011 Right Cataract removal 03/2013 Left Lumbar spine surgery 1987, 1989 Discectomy X2, Dr. Santo Angiogram EARLY 1979 FOR TIA HISTORY Ablation of dysrhythmic focus 03/19/2014 Laterality: N/A; Surgeon: Jennifer Wilder MD; Location: [facility]OLOG[facility] Social History: History Social History Marital [...] No other animal exposures. Grew up in [place]. Then lived in [place]. Then moved to [place]. In the service lived [facility] and [place]. No recent travel. Allergies: Allergies Allergen Reactions Adhesive & Tape Paper tapes- BLISTERS Medications: Outpatient Encounter Prescriptions as of 06/11/2014 Medication Sig Dispense Refill acetaminophen (TYLENOL) 325 mg tablet Take 650 mg by mouth every 4 hours as needed. albuterol (PROAIR HFA) 90 mcg/puff inhaler Inhale 2 puffs into the lungs every 6 hours as needed for Wheezing or Shortness of Breath. 1 Inhaler 11 amLODIPine (NORVASC) 5 mg tablet Take one tablet by mouth once daily. [DISCONTINUED] Ascorbic Acid (VITAMIN C PO) Take by mouth. Ascorbic Acid (VITAMIN C) 250 MG tablet [...] PO) Take by mouth. Respiratory Therapy Supplies [facility] Please provide an [...] facility-administered encounter medications on file as of 06/11/2014. Review of Systems: General: []Weight loss/gain (over [...] urination []Difficulty wit h urination Objective BP 128/78 | Pulse 93 | Resp 16 | Ht 1.778 m (5' 10") | Wt 79.379 kg (175 lb) | BMI 25. 11 kg/m2 | SpO2 93% General Appearance: Alert, [...] normal Data: Overnight oximetry was done on March 16, 2014 on 2L and was reviewed and interpreted in cecelia cui today. It shows he spent 2 minutes 38 seconds with a saturation less than 88%. Labs: Results for DIEGO LUCAS ( ) as of 06/11/2014 14:43 Ref. Range 03/19/2014 06:18 WBC Latest Range: 3.8-11.0 K/uL 5.4 RBC: Latest Range: 4.20-5.70 M/uL 3.92 (L) Hgb Latest Range: 13.2-17.0 g/dL 11.0 (L) Hct, Final Latest Range: 39.0-50.0 % 33.7 (L) MCV Latest Range: 80.0-100.0 fL 86.0 MCH Latest Range: 27.0-34.0 pg 28.2 MCHC Latest Range: 32.0-35.5 g/dL 32.8 RDW Latest Range: 11.0-15.5 % 18.3 (H) Platelet Count Latest Range: 150-400 K/uL 324 NA Latest Range: 135-145 mmol/L 139 K Latest Range: 3.5-5.0 mmol/L 3.9 CL Latest Range: 99-109 mmol/L 109 CO2 Latest Range: 21-28 mmol/L 24 ANION GAP Latest Range: 5-16 mmol/L 6 GLUCOSE Latest Range: 65-99 mg/dL 97 BUN Latest Range: 8-25 mg/dL 16 CREA Latest Range: 0.70-1.30 mg/dL 0.94 Estimated GFR Latest Range: >60 ml/min/1.73m2 >60 Calcium Latest Range: 8.5-10.2 mg/dL 8.9 MG Latest Range: 1.7-2.4 mg/dL 2.2 Immunization History Administered Date(s) Administered INFLUENZA, TRIVALENT PRESERVATIVE FREE (PED/ADOL/ADULT) 12/11/2012, 11/18/2013 PNEUMOCOCCAL CONJUGATE 13-VALENT (PCV13) 03/13/2014 PNEUMOCOCCAL POLYSACCHARIDE 23-VALENT (PPSV23) 10/21/2010 ZOSTER, 1 DOSE (ADULT) 04/22/2013 Assessment 1. COPD (chronic obstructive pulmonary disease) - Doing well on Flovent and Atrovent. We wi ll continue. 2. 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 He will likely travel to [facility] again in July, and we discussed renting a portable concentrator or arranging for oxyge n when he gets to [place]. Plan 1.Continue Flovent and Atrovent. 2.Use Ventolin if needed. 3.Continue to walk. 4. Use oxygen at night at 2L. Rent a portable concentrator or arrange for oxygen in [place] when he arrives. He was advised to call if new pulmonary symptoms were to develop. Return to clinic in 6 months, or sooner with concerns. CC: Parviz Brar Portions of this report were transcribed using voice recognition software. Every effort wa s made to ensure accuracy; however, inadvertent computerized machine puller and laster errors may be pre sent. 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
--- OUTSIDE RECORDS SUMMARY | ~2019-10-20 | XMS | Encounter Summary ---
Demographics + + + | Address | [address] | | | [place] [address] | + + + | Home Phone [...] + | Organization | [facility] | [...] Team Providers + +------+ + | Care Operations Supervisor Name | Role | Phone | + [...] + + | 07/01/ | Office | [facility] | Jorje Rutledge | Prostate cancer | | 2016 | Visit | [address] | MD [address] | ([facility]) (Primary Dx); | | | | [place] | [place] | Preventative health | | | | [address] | [place] [address] | care | | | | [phone] | [phone] | | | | | | | [...] a patient of Dr. Mercedez Barkley in [place] for many years. He originally had a [...] SVT (supraventricular tachycardia) (01/2014); Depression; Prostate cancer ([facility]) (2007); COPD (chronic obstructive pulmonary disease) (); [...] PO) Take by mouth. Respiratory Therapy Supplies [facility] Please provide an O2 concentrator while Diego [...] dry, no erythematous rash. DIAGNOSTIC DATA: PSA160.217 2163.39 01/04/20155.65 8154.57 .128 .38 10/20122.5 08/20110.0172 .32 06/200713.9 Urine is clear today Postvoid residual by [...] have not thoroughly proofread this note, and emc storage architect erro rs may occur. documented in th [...] | | | | | [place] [address] | | | | | | [phone] | | | | | | | [...] 12/16/2015 | | | | e | ([facility]) | (Approximate), | | | | | [...] CONF | e | 8:03 AM | (HCC) | procedure are in [...] 1.001 - 1.030 | | | | [place], | | | | | | UA, [...] | leuprolide (LUPRON DEPOT-6 | Given | 05/20 | 45 mg | | Glut-Lef | [...]
--- OUTSIDE RECORDS SUMMARY | ~2019-10-20 | XMS | Encounter Summary ---
Demographics + + + | Address | [address] | | | [place] [address] | + + + | Home Phone [...] Organization | [facility] [...] Team Providers + +------+ + | Care Chairman Name | Role | Phone | + +------+ + PCP | Unavailable | + +------+ + Encounter Details +--------+ + + + + | Date | Type | Department | Care Team | Description | +--------+ + + + + | 04/04/ | Hospital | [facility] | | | | 2008 - | Encounter | [facility] | | [facility] | | [facility] [address] | | | | 04/21/ | | [place] | | | | 2008 | | [address] | | | | | | [phone] | | | +--------+ + + + [...] | | | | | [place] [address] | | | | | | [phone] | | | | | | | | +--------+---------+ + + + documented as of this encounter Visit Diagnoses Not on filedocumented in this encounter"
--- OUTSIDE RECORDS SUMMARY | ~2019-10-20 | XMS | Encounter Summary ---
Demographics + + + | Address | [address] | | | [place] [address] | + + + | Home Phone [...] | Organization | [facility] [...] Team Providers + +------+ + | Care Program Developer Name | Role | Phone | + +------+ + PCP | Unavailable | + +------+ + Encounter Details +--------+ + + + + | Date | Type | Department | Care Team | Description | +--------+ + + + + | 07/20/ | Hospital | [facility] | | | | 2007 - | Encounter | [facility] | | | | | [facility] [address] | | | | 07/22/ | | [place] | | | | 2007 | | [address] | | | | | | [phone] | | | +--------+ + + + [...] | | | | | [place] [address] | | | | | | [phone] | | | | | | | | +--------+---------+ + + + documented as of this encounter Visit Diagnoses Not on filedocumented in this encounter"
--- OUTSIDE RECORDS SUMMARY | ~2019-10-20 | XMS | Encounter Summary ---
Demographics + + + | Address | [address] | | | [place] [address] | + + + | Home Phone | | + + + | Preferred Language | Unknown | + + + | Marital Status | | + + + | Mandaen Affiliation | 1076 | + + + | Race | White | + + + | Ethnic Group | Not or | + + + Author + + + | Author | [facility] | | | and [place] | + + + | Organization | [facility] | | [...] Team Providers + +------+ + | Care Motor Coach Chauffeur Name | Role | Phone | + [...] | | Abnormal | [place]enstein, | [address] | | | | | chest CT | Becca B, | [place], | | | | | Procedures | MD [address] | [place] [address] | | | | | CT Chest wo | [address] | Phone: | | | | | Contrast | [place], | [phone] | | | | | | [place] [address] | Fax: | | | | | | | [phone] | +--------+--------+ + + + + Reason for Visit +--------+ + | Reason | Comments | +--------+ + | Other | abnormal chest CT | +--------+ + Encounter Details +--------+---------+ + + + | Date | Type | Department | Care Team | Description | +--------+---------+ + + + | 10/27/ | Office | [facility] | Offenstein, | Abnormal chest CT | | 2012 | Visit | PULMONARY [address] | Becca Segura MD | (Primary Dx); COPD | | | | [place], | | (chronic obstructive | | | | [place] [address] | | pulmonary disease) | | | | [phone] | | ([facility]); Nocturnal | | | | | | [...] Pulmonary Follow Up Note MD Caterina Noyola [place] [facility] [address] [place], [address] HPI Diego Lucas is a 76 y.o. male [...] Pulmonary nodules Cataracts, bilateral Pneumonia 05/2012 hospitalized [facility] Shoulder fracture 02/2012 Foot fracture 02/2012 Past [...] home. No other animal exposures.Grew up in [place]. Then lived in [place]. Then move d to [place]. In the service lived in [facility] and [place]. No recent travel. Allergies: Allergies Allergen Reactions [...] will try to get prior records from [facility] [place], but they have sent us little information [...] made to ensure accuracy; however, inadvertent computerized nursing home manager errors may be pre sent. documented in [...] | | | | | [place] [address] | | | | | | [phone] | | | | | | | [...] | 10/28/2013 | | | | | (HCC) Nocturnal | | | | | | hypoxemia | | + + +--------+ + + documented as of this encounter Results CT Chest wo Contrast (01/26/2013 3:44 PM PST) + + | Specimen | + + | | + + + + + | Narrative | Performed At | + + + | [facility] | [place] | | Department [address] [facility] | [facility] | | [ rep [address]] [ rep [facility] | | [facility]] Signed | - IMAGING | | | | | Patient Name: DIEGO LUCAS Chayo Physician: | | | . : 1935 Age: 77 Sex: M Unit #: [id number] | | | Exam Date: 01/26/13 Location: [facility] | | | Report #: [id number] Page: | | | %(RAD)RES..mtdd.print.filter("pg") of %(RAD) | | | RES..mtdd.print.filter("tpg") | | | | | | Accession Number: [id number] | | | CT CHEST WITHOUT CONTRAST [...] Transcribed Date/Time: | | | 01/26/2013 15:57 Loom Fixer: | | | <<Signature on File>> | | | Froylan | | | Mae Rodriguez [id number]/26/[id number] <Electronically signed by Froylan Baker | | | Michael DONG> Froylan Rodriguez MD 01/26/13 1544 | | | Loom Fixer: Repunch [id number]/05/13 1557 | | | Becca Castro MD | | + + + + + + + + | Performing | Address | City/State/Zipcode | Phone Number | | Organization | | | | + + + + + | [address] | [address] | [place], [place] | [phone] | | [facility] | | [address] | | | - IMAGING | | [...]
--- OUTSIDE RECORDS SUMMARY | ~2019-10-20 | XMS | Encounter Summary ---
Demographics + + + | Address | [address] | | | [place] [address] | + + + | Home Phone [...] Team Providers + +------+ + | Care Customer Service Attendant Name | Role | Phone | + +------+ + | Parviz Brar DO | PCP | | + +------+ + Reason for Visit + +--------+ + | Reason | Onset | Comments | | | Date | | + +--------+ + | Lab Order | 04/27/ | | | | 2017 | | + +--------+ + Encounter Details +--------+ + + + + | Date | Type | Department | Care Team | Description | +--------+ + + + + | 04/27/ | Telephone | [facility] | Marc Odell | Lab Order | | 2017 | | GASTROENTEROLOGY | MD Noe [address] | | | | | [address] [facility] | [place] [facility] | | | | | [address] [place], [place] | [place] [address] | | | | | [address] | [phone] | | | | | [phone] | | | +--------+ + + + [...] this encounter Miscellaneous Notes Telephone Encounter - Maribell Cleary RN - 04/27/2017 4:22 PM PSTFaxed lab to callie laguerre as well. elepho ne Encounter - Debbie Yeh - 04/27/2017 3:45 PM PSTSA called in regards to lab order s tating that they have not received the order yet. I informed them that Maribell faxed the o rder to [phone]. They requested that the order also be faxed to [phone].Electronic ally signed by Debbie Yeh at 04/27/2017 3:47 PM PSTTelephone Encounter - Ramón Cleary RN - 04/27/2017 1:05 PM PSTCreated order for GFR/Creatinine; faxing to [facility] [employer] ; advising patient to have this drawn at [facility] prior to his im aging tomorrow. Telephone Encounter - Nicole Silva - 04/27/2017 11:52 AM PSTPatient is scheduled for a CT Enterography at [facility] tomorrow. Bianca called from the radiology dept there an d asked that a creatanine and GFR order be sent to them before that appt as they need to hav e these completed before his appt tomorrow. Please fax order to Bianca at [phone] Edith ctronically signed by Nicole Silva at 04/27/2017 11:54 AM PSTdocumented in this encount er Plan of Treatment +--------+---------+ + + + | Date | Type | Specialty | Care Team | Description | +--------+---------+ + + + | 12/26/ | Office | Urology | Jorje Rutledge | | | 2020 | Visit | | MD [address] | | | | | | [place] | | | | | | [place] [address] | | | | | | [phone] | | | | | | | [...]
--- OUTSIDE RECORDS SUMMARY | ~2019-10-20 | XMS | Clinical Summary ---
Demographics + + + | Address | [address] | | | [place] [address] | + + + | Home Phone | | + + + | Preferred Language | Unknown | + + + | Marital Status | | + + + | Yazidi Affiliation | 1076 | + + + | Race | White | + + + | Ethnic Group | Not or | + + + Author + + + | Author | [facility] | | | and [place] | + + + | Organization | [facility] | | [...] Providers + +------+ + | Care Medical Planner Name | Role | Phone | + +------+ + | Jason Read | PCP | | | MD | | | + +------+ + Allergies + + + + + + | Active Allergy | Reactions | Severity | Noted | Comments | | | | | Date | | + + + + + + | Penicillins | | | 08/21/20 | | | | | | 17 [...] 9/20 | | e | | ol (NICOLÁSO ELLIPTA) | | | | 15 | [...] + + + +---------+------+------+-------+ | Multiple | I-Caps | | 0 | | | Activ | | Vitamins-Minerals | | | | | | e | | (ICAPS PO) | | | | | | | + + + +---------+------+------+-------+ | albuterol 2.5 mg/3 | Take 2.5 mg by | | 0 | | | Activ | | mL nebulizer | nebulization 2 times | | | | | e | | solution | daily. | | | | | | + + + +---------+------+------+-------+ | OXYGEN-HELIUM IN | Inhale 2 L into the | | 0 | | | Activ | | | lungs. | | | | | e | + + + +---------+------+------+-------+ | UNABLE TO FIND | by Nasal route. | | 0 | 04/2 | | Activ | | | | | | 3/20 | | e | | | | | | 13 | | | + + + +---------+------+------+-------+ | ascorbic acid | Take by mouth. | | 0 | | | Activ | | (VITAMIN C) 250 MG | | | | | | e | | tablet | | | | | | | + + + +---------+------+------+-------+ | fluticasone | Inhale into the | [...] | + + + +---------+------+------+-------+ | loratadine | Take by mouth. | | 0 | | | Activ | | (CLARITIN) 10 mg | | | | | | e | | tablet | | | | | | | + + + +---------+------+------+-------+ | magnesium | Take by mouth. | [...] | + + + +---------+------+------+-------+ | oxymetazoline (PX | Instill 2 Sprays [...] + + +---------+------+------+-------+ | polyethylene | Take by mouth. | | 0 | | | Activ | | glycol (MIRALAX) | | | | | | e | | powder | | | | | | | + + + +---------+------+------+-------+ | amLODIPine | | | 0 | 10/0 | | Activ | | (NORVASC) 10 MG | | | | 9/20 | | e | | tablet | | | | 19 | | | + + + +---------+------+------+-------+ | tamsulosin | TAKE TWO CAPSULES BY | 60 | 11 | 12/0 | | Activ | | (FLOMAX) 0.4 mg CAPS | MOUTH EVERY DAY | capsule | | 9/20 | | e | | | NEEDED | | | 19 | | | + + + +---------+------+------+-------+ + + +-------+ +------+------+-------+ | Hospital, Clinic, or | Ordered | Route | Frequency | Star | End | Statu | | Other Facility | Dose | | | t | Date | s | | Administered | | | | Date | | | | Medication | | | | | | | + + +-------+ +------+------+-------+ | gentamicin | 80 mg | IM | ONCE | 08/0 | 08/0 | Ended | | injection 80 | | | | 4/20 | 4/20 | | | mgIndications: | | | | 20 | 20 | | | prophylaxis | | | | | | | + + +-------+ +------+------+-------+ Active Problems + + + | Problem [...] | Overview: PSA Date Results | | 06/08/19 2.03 [facility] | | 12/12/18 0.681 [facility] | | 11/25/17 7.17 [facility] | | 08/26/17 4.44 | | 05/28/17 2.56 | | 04/28/17 1.49 | | 02/27/17 1.27 | | 12/28/15 0.247 | | 06/29/15 0.217 | | 04/04/15 3.39 | | 01/04/15 5.65 | | 09/25/14 4.57 | | 11/2013 0.128 | | 07/2013 5.38 | | 10/2012 2.5 | | 08/2011 0.0172 | | 04/2011 1.32 | | 06/2007 13.9 | + + + + + | Prostate cancer | 03/06/2015 | + + + + + | Overview: S/p XRT [facility] with Dr. Garza | | On Lupron [...] | +--------+ + + + + | 09/25/ | Office | Urology | Jorje Rutledge | Prostate cancer | | 2019 | Visit | | MD Tim | ([facility]) (Primary Dx) | +--------+ + + + + | 08/13/ | Imaging | Radiology | Provider, | | | 2019 | Exam | | MD Anne | | +--------+ + + + + | 08/08/ | Telephone | Urology | Jorje Rutledge | Results | | 2019 | | | MD Tim | | +--------+ + + + + | 07/30/ | Telephone | Karen | Jorje Rutledge | Other (Labs) | 2019 | | | MD Tim | | +--------+ + + + + | 07/23/ | Telephone | Karen | Jorje Rutledge | Other | 2019 | | | MD Tim | | +--------+ + + + + [...] | | | | | [place] [address] | | | | | | [phone] | | | | | | | | +--------+---------+ + + + + + + + + | Health Maintenance | Due Date | Last | Comments | | | | Done | | + + + + + | Vaccine: | | | | | Dtap/Tdap/Td (1 - | 7 | | | | Tdap) | | | | + + + + + | Vaccine: Zoster (2 | | 05/19/19 | | | of 3) | 4 | 14, | | | | | 04/23/19 | | | | | 14 | | + + + + + | Adult Annual | | | | | Wellness Visit | 5 | | | + + + + + | Statin Therapy | | | | | (optimal intensity) | 5 | | | + + + + + | Vaccine: Influenza | | 11/22/19 | | | (#1) | 0 | 19, | | | | | 11/10/19 | | | | | 18, | | | | | 12/12/19 | | | | | 17, | | | | | Addition | | | | | al | | | | | history | | | | | exists | | + + + + + | Vaccine: | Completed | 03/13/19 | | | Pneumococcal 65+ | | 15, | | | | | 10/22/19 | | | | | 11 | | + + + + + Procedures + +--------+ + + + | Procedure Name | Priori | Date/Time | Associated Diagnosis | Comments | | | ty | | | | + +--------+ + + + | POCT URINALYSIS, | Routin | 09/26/2019 | Prostate cancer | Results for this | | AUTO WITH CONF | e | 9:40 AM | (HCC) | procedure are in the | | | | PDT | | results section. | + +--------+ + + + | IMAGING REPORT - | | 08/04/2019 | | Results for this | | EXTERNAL SCAN | | 12:00 AM | | procedure are in the | | | | PDT | | results section. | + +--------+ + + + | CT ABDOMEN PELVIS W | Routin | 08/04/2019 | | Results for this | | WO CONTRAST | e | 12:00 AM | | procedure are in the | | | | PDT | | results section. | + +--------+ + + + | LABS - EXTERNAL SCAN | | 08/01/2019 | | Results for this | | [...] from Last 3 Months Results POCT Urinalysis (09/26/2019 9:40 AM PDT) [...] 1.001 - 1.030 | | | | [place], | | | | | | UA, [...] + + IMAGING REPORT - EXTERNAL SCAN (08/04/2019 12:00 AM PDT) + + + | Narrative | Performed At | + + + | Ordered by an | | | unspecified provider. | | + + + CT Abdomen Pelvis w wo Contrast (08/04/2019 12:00 AM PDT) + + | Specimen | + + | | + + + + + | Narrative | Performed At | + + + | External films for comparison only | [facility] | | | | | No results will be in the chart. | | + + + + +---------+ + + | Performing | Address | City/State/Zipcode | Phone Number | | Organization | | | | + +---------+ + + | [facility] | | | | + +---------+ + + LABS - EXTERNAL SCAN (08/01/2019 12:00 AM PDT)Only the most recent of 2 results within the time period is included. + + + | Narrative | Performed [...] +--------+ +---------+--------+ | MEDICARE | MEDICA | [id number] | | [phone] | | Medica | | | RE | | 013-Pr | 5 | | re | | | PART A | | esent | | | | | | AND B | | | | | | + +--------+ +--------+ +---------+--------+ | [employer] [place] | MUTUAL | [id number] | | [phone] | | Indemn | | | AND | | 018-Pr | 0 | | ity | | | [place] | | esent | | | | | | [place] | | | | | | | | MDCR [...] | | al/Fam | | 1936 | [phone] | [place] [address] | | | leslie | | | 3 (Home) | | + +--------+ +--------+ + + Advance Directives + + + + + | Type | Date Recorded | Patient | Explanation | | | | Sap Portal Developer | | + + + + + | Power of | | | | | Food Server | | | | + + + + + | Advance | 03/19/2014 5:21 | | POLST | | Directive | AM | | | + + + + +
--- OUTSIDE RECORDS SUMMARY | ~2019-10-20 | XMS | Encounter Summary ---
Demographics + + + | Address | [address] | | | [place] [address] | + + + | Home Phone [...] | Organization | [facility] [...] Team Providers + +------+ + | Care Collection Development Librarian Name | Role | Phone | + +------+ + | Parviz Brar DO | PCP | | + +------+ + Reason for Visit + +--------+ + | Reason | Onset | Comments | | | Date | | + +--------+ + | GI Bleeding | 03/23/ | | | | 2017 | | + +--------+ + Encounter Details +--------+ + + + + | Date | Type | Department | Care Team | Description | +--------+ + + + + | 03/23/ | Telephone | [facility] | Froylan Werner MD | GI Bleeding | | 2018 | | GASTROENTEROLOGY | [address], [facility] | | | | | [address] | [address] [place], [place] | | | | | [address] [place], [place] | [address] | | | | | [address] | | | | | | [phone] | | | +--------+ + + + [...] Telephone Encounter - Roxana Lowe RN - 03/23/2017 1:45 PM PSTNote to obed Trujillo ill await update from Dr Brar after pt is seen by him in follow up 03/25/2017.Electronicall y signed by Roxana Lowe RN at 03/23/2017 1:45 PM PSTTelephone Encounter - Roxana Lowe RN - 03/23/2017 10:02 AM PSTPatient calls saying he had another GI bleed. He was transfused 3 units due to Hgb 6.[address] Arellano did egd and colonoscopy. Patient was adm itted for 4 days. He was told that is all they can do at that hospital. He states this is t he 5th time he has bled since 2014. He sees Dr Brar Mar 25. Patient calls michelle martinez if Dr. Werner thinks another PillCam is an option. documented in this encounter Plan of Treatment +--------+---------+ + + + | Date | Type | Specialty | Care Team | Description | +--------+---------+ + + + | 12/26/ | Office | Urology | Jorje Rutledge | | | 2020 | Visit | | MD [address] | | | | | | [place] | | | | | | [place] [address] | | | | | | [phone] | | | | | | | | +--------+---------+ + + + documented as of this encounter Visit Diagnoses Not on filedocumented in this encounter"
--- OUTSIDE RECORDS SUMMARY | ~2019-10-20 | XMS | Encounter Summary ---
Demographics + + + | Address | [address] | | | [place] [address] | + + + | Home Phone [...] + + + | Author | [facility] | | | and [place] | + + + | Organization | [facility] | | [...] Team Providers + +------+ + | Care Propagation Worker Name | Role | Phone | + +------+ + | Parviz Brar DO | PCP | | + +------+ + Reason for Visit + +--------+ + | Reason | Onset | Comments | | | Date | | + +--------+ + | Results, Imaging | 05/04/ | | | | 2018 | | + +--------+ + Encounter Details +--------+ + + + + | Date | Type | Department | Care Team | Description | +--------+ + + + + | 05/04/ | Telephone | [facility] | Marc Odell | Results, Imaging | | 2018 | | GASTROENTEROLOGY | MD [address] | | | | | [address] [facility] | [address] [facility] | | | | | [address] [place], [place] | [place] [address] | | | | | [address] | [phone] | | | | | [phone] | | | +--------+ + + + [...] Telephone Encounter - Maribell Cleary RN - 05/04/2017 8:47 AM PDTDrAndrew Odell left mess age to contact patient and advise the results of CT scan advising it looks good and no cause for bleeding found. Recommends MRI abdomin in 1 yr for f/u pancreatic cysts; Also recommend s pt follow up with PCP to determine if needs chest CT for further evaluation for small lung nodules. Relayed results to patient; he will follow up with provider on the CT chest scan a nd will contact our office if he notices any bleeding so we can arrange for the small bowel capsule endoscopy (pill cam). Routing this phone note to PCP noted of Parviz Brar.Elect ronically signed by Maribell Cleary RN at 05/04/2017 9:11 AM PDTdocumented in this enc ounter Plan of Treatment +--------+---------+ + + + | Date | Type | Specialty | Care Team | Description | +--------+---------+ + + + | 12/26/ | Office | Urology | Jorje Rutledge | | | 2020 | Visit | | MD [address] | | | | | | [place] | | | | | | [place] [address] | | | | | | [phone] | | | | | | | | +--------+---------+ + + + documented as of this encounter Visit Diagnoses Not on filedocumented in this encounter"
--- OUTSIDE RECORDS SUMMARY | ~2019-10-20 | XMS | Encounter Summary ---
Demographics + + + | Address | [address] | | | [place] [address] | + + + | Home Phone | | + + + | Preferred Language | Unknown | + + + | Marital Status | | + + + | Alevism Affiliation | 1076 | + + + | Race | White | + + + | Ethnic Group | Not or | + + + Author + + + | Author | [facility] | | | and [place] | + + + | Organization | [facility] | | [...] Team Providers + +------+ + | Care Recovery Analyst Name | Role | Phone | + +------+ + | Parviz Brar DO | PCP | | + +------+ + Encounter Details +--------+ + + + + | Date | Type | Department | Care Team | Description | +--------+ + + + + | 11/28/ | Orders Only | [facility] [place] | AsaelkeenanRoshni, | | | 2012 | | PULMONARY [address] | RN | | | | | [place], | | | | | | [place] [address] | | | | | | [phone] | | | +--------+ + + + [...] | | | | | [place] [address] | | | | | | [phone] | | | | | | | | +--------+---------+ + + + documented as of this encounter Visit Diagnoses Not on filedocumented in this encounter"
--- OUTSIDE RECORDS SUMMARY | ~2019-10-20 | XMS | Encounter Summary ---
Demographics + + + | Address | [address] | | | [place] [address] | + + + | Home Phone | | + + + | Preferred Language | Unknown | + + + | Marital Status | | + + + | Catholic Affiliation | 1076 | + + + | Race | White | + + + | Ethnic Group | Not or | + + + Author + + + | Author | [facility] | | | and [place] | + + + | Organization | [facility] | | [...] Team Providers + +------+ + | Care Certified Meeting Professional Name | Role | Phone | + +------+ + | Parviz Brar DO | PCP | | + +------+ + Encounter Details +--------+ + + + + | Date | Type | Department | Care Team | Description | +--------+ + + + + | 11/02/ | Abstract | [facility] [place] [facility] | Rutledge Jorje | | | 2017 | | [address] | MD [address] | | | | | [place] | [place] | | | | | [address] | [place] [address] | | | | | [phone] | [phone] | | | | | | | [...] | | | | | [place] [address] | | | | | | [phone] | | | | | | | [...] + + | REFERENCE LAB | [address] [facility] [facility] | [place] | [phone] | | [facility] | | [address] | | + + + + + | REFERENCE LAB | [address] | [place] | [phone] | | [facility] | | [address] | | + + + + + [...] + + + | REFERENCE LAB | [address] [facility] | [place] | [phone] | | [facility] | | [address] | | + + + + + | REFERENCE LAB | [address] | [place] | [phone] | | [facility] | | [address] | | + + + + + [...] + + + | REFERENCE LAB | [facility] | [place] | [phone] | | [facility] | | [address] | | + + + + + | REFERENCE LAB | [facility] | [place] | [phone] | | [facility] | | [address] | | + + + + + [...] + + | REFERENCE LAB | [address] [facility] [facility] | [place], [place] | [phone] | | [facility] | | [address] | | + + + + + | REFERENCE LAB | [address] | [place], [place] | [phone] | | [facility] | | [address] | | + + + + + [...] + + | REFERENCE LAB | [address] [facility] | [place] | [phone] | | [facility] | | [address] | | + + + + + | REFERENCE LAB | [address] [facility] | [place] | [phone] | | [facility] | | [address] | | + + + + + [...] REFERENCE LAB | [address] | [place] | [phone] | | [facility] | | [address] | | + + + + + | REFERENCE LAB | [address] | [place] | [phone] | | [facility] | | [address] | | + + + + + documented in this encounter Visit Diagnoses Not on filedocumented in this encounter"
--- OUTSIDE RECORDS SUMMARY | ~2019-10-20 | XMS | Encounter Summary ---
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 documented [...] He is currently on 2 L[facility] at [facility]. He reports good compliance. He [...] nodules Cataracts, bilateral Pneumonia 05/[address] [facility] Shoulder fracture 02/2012 Foot fracture 02/2012 [...] home. No other animal exposures.Grew up in [place]. Then lived in [place]. Then move d to [place]. In the service lived in [facility] and [place]. No recent travel. Allergies: Allergies Allergen Reactions [...] lungs nightly. Respiratory Therapy Supplies [facility] Please provide [...] made to ensure accuracy; however, inadvertent computerized profiling machine setup operator errors may be pre sent. Electronically signed [...] | | | | | [place] [address] | | | | | | [phone] | | | | | | | [...]
--- OUTSIDE RECORDS SUMMARY | ~2019-10-20 | XMS | Encounter Summary ---
Demographics + + + | Address | [address] | | | [place] [address] | + + + | Home Phone [...] | Organization | [facility] | | | and [place] | + + + | Address | Unknown | + + + | Phone | Unavailable | + + + Support + + + + + | Name | Relationship | Address | Phone | + + + + + | Andrez Luacs | ECON | NA | | | | | [place] | | + + + + + | Candis [place] | ECON | NA | | | | | [place] | | + + + + + Care Team Providers + +------+ + | Care Textile Conversion Manager Name | Role | Phone | + +------+ + | Parviz Brar DO | PCP | | + +------+ + Encounter Details +--------+ + + + + | Date | Type | Department | Care Team | Description | +--------+ + + + + | 06/16/ | Hospital | [facility] | Conversion | Pain | | 2017 | Encounter | CONVERSION [address] | Transaction, | | | | | [address] | Provider Unknown | | | | | [place], [place] | [phone] | | | | | [address] | | | | | | [phone] | | | +--------+ + + + [...] O2 | 1 each | 0 | | | | Therapy Supplies | concentrator [...] | | | | | [place] [address] | | | | | | [phone] | | | | | | | [...]
--- OUTSIDE RECORDS SUMMARY | ~2019-10-20 | XMS | Encounter Summary ---
Demographics + + + | Address | [address] | | | [place] [address] | + + + | Home Phone [...] + + + | Author | [facility] | | | and [place] | + + + | Organization | [facility] | | | [...] Team Providers + +------+ + | Care Butter Melter Name | Role | Phone | + [...] cancer (HCC) | Becca Segura, | [place] | | | | | | [address] | [place], | | | | | | [address] | [place] [address] | | | | | | [place], | Phone: | | | | | | [place] [address] | [phone] | | | | | | | Fax: | | | | | | | [phone] | +--------+ + + + + + Encounter Details +--------+---------+ + + + | Date | Type | Department | Care Team | Description | +--------+---------+ + + + | 04/03/ | Office | [facility] | Jorje Rutledge | Preventative health | | 2016 | Visit | [address] | [address] | care (Primary Dx); | | | | [place], [place] | [place] | Prostate cancer | | | | [address] | [place] [address] | ([facility]) | | | | [phone] | [phone] | | | | | | | [...] of Parviz Brar being seen today for Prostate cancer. Roberto Carlos rodriguez is a very pleasant gentleman who was a patient of Dr. Mercedez Barkley in [place] for many y ears. 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 His PSA at that time was 13.9. He underwent radiation therapy w ith Dr. Garza with post radiation adjuvant Lupron [...] void residual is less than 10 cc to ay Old records from Dr. Barkley were [...] PO) Take by mouth. Respiratory Therapy Supplies [facility] Please provide an [...] have not thoroughly proofread this note, and section supervisor erro rs may occur. documented in th [...] [place] | | | | | | [place] [address] | | | | | | [phone] | | | | | | | | +--------+---------+ + + + documented as of this encounter Procedures + +--------+ + + + | Procedure Name | Priori | Date/Time | Associated Diagnosis | Comments | | | ty | | | | + +--------+ + + + | LABS - EXTERNAL SCAN | | 04/04/2015 | | | | | | 12:00 AM | | | | | | PST | | | + +--------+ + + + | IMAGING REPORT - | | 04/03/2015 | | | | EXTERNAL SCAN | [...] PM PST | | | | | 2/10/16 at 1630, For 1 dose, | | | | | | | Chemotherapy: Use appropriate | | | | | | | handling precautions., | | | | | | + +--------+ +---------+------+ + +---+---+ | | | +---+---+ documented in this encounter
--- OUTSIDE RECORDS SUMMARY | ~2019-10-20 | XMS | Clinical Summary ---
Demographics + + + | Address | [address] | | | [place] [address] | + + + | Home Phone [...] Team Providers + +------+ + | Care Event Security Officer Name | Role | Phone | + +------+ + | Parviz Brar DO | PCP | | + +------+ + Source Comments VERENA is fully live on both [facility] Ambulatory and [facility] InPatient.[facility] Allergies + + + + + + [...] | 3/20 | | e | | Pioneer | every six hours as | | [...] 3/20 | | e | | Aerosol, Pioneer | while awake. | | | 13 [...] + + | Influenza (Flu) | | 11/11/19 | | | vaccination (#1) | 9 | 15, | | | | | 11/19/19 | | | | | 14, | | | | | 12/12/19 | | | | | 13 | | + + + + + | Pneumococcal | Completed | 03/13/19 | | | vaccination | | 15, | | | | [...] + +--------+ | MEDICARE | MEDICA | [id number] | | [phone] | [address] | Med[address] | | | RE [address] & | | [phone] | [address] | | | B | | esent | | [place], [place] | | | | | | | | [address] | | + +--------+ +--------+ + +--------+ | COMMERCIAL | INDIVI | [id number] | Effect | | | Indemn | [...] | 1936 | [phone] | [place] [address] | | | [place] | | | [...]
--- OUTSIDE RECORDS SUMMARY | ~2019-10-20 | XMS | Encounter Summary ---
Demographics + + + | Address | [address] | | | [place] [address] | + + + | Home Phone [...] Organization | [facility] [...] Team Providers + +------+ + | Care Relief Map Modeler Name | Role | Phone | + [...] Required | | cancer (HCC) | Billy Segura, | [address] | | | | | | MD [address] | [place], | | | | | | [address] | [place] [address] | | | | | | [place], | Phone: | | | | | | [place] [address] | [phone] | | | | | | | Fax: | | | | | | | [phone] | +--------+ + + + + + Reason for Visit +--------+ + | Reason | Comments | +--------+ + | COPD | follow up from hospital | +--------+ + Encounter Details +--------+---------+ + + + | Date | Type | Department | Care Team | Description | +--------+---------+ + + + | 03/06/ | Office | [facility] | Offenstein, | Chronic obstructive | | 2015 | Visit | PULMONARY [address] | Billy Segura MD | pulmonary disease, | | | | [place], | | unspecified COPD | | | | [place] [address] | | type (HCC); | | | | [phone] | | Nocturnal hypoxemia | | | | | | due to emphysema | | | | | | (HCC); Prostate | | | | | | cancer ([facility]) | +--------+---------+ + + + [...] COPD. In January, he went in to [facility] after having a GI bleed, with [...] times a day. He returns today [facility]. Currently he is able to walk 1/2 mile at his own pace on level ground. He is exercising reg [employer]. He is walking at [facility] as it has been too cold to walk outside. He has not been coughing much. He had hemoptysis only for a couple of days, and this resol ed. He has been evaluated for nocturnal oxygen and does use it. He is currently on 2 LPM at [facility]. He reports good compliance. He required as much as 10L of oxygen in the hospital. Past Medical History Past Medical History Diagnosis Date Peptic ulcer disease with upper GI bleed Benign prostatic hypertrophy Osteoarthritis Heartburn Pulmonary nodules Shoulder fracture 02/2012 Foot fracture 02/2012 SVT (supraventricular tachycardia) 01/[address] Wilder for ablation Depression Prostate cancer ([facility]) 2007 s/p radiation treatment and on hormonal treatment with Lupron; DR BARKLEY [place] COPD (chronic obstructive pulmonary disease) ([facility]) DR BILLY CASTRO Pneumonia 05/2012 hospitalized [place] [...] Laterality: N/A; Surgeon: Jennifer Wilder MD; Location: [facility] ELECTROPHYSIOLOGY Egd and colonoscopy 02/06/2015 Dr. [...] No other animal exposures. Grew up in [place]. Then lived in [place]. Then moved to [place]. In the service lived [facility] and [place]. No recent travel. Allergies: Allergies Allergen Reactions [...] AILY 1 Inhaler 1 Respiratory Therapy Supplies [facility] [...] obstructive pulmonary disease, unspecified COPD type (HCC) J44.9 496 On Breo wit h good symptomatic improvement. Given that his anemia is also correcting, this likely accoun ts for some of his symptom improvement. He can switch the Atrovent to as needed only. 2. 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 We will continue this. G47.36 327.26 3. Prostate cancer (HCC) C61 185 On Lupron therapy and followed previously with Dr. Barkley, who has apparently left her practice. I placed a referral for him to see urology here as he has apparently had difficulty getting in to see a provider. * [facility] [place] [facility] - AMB Referral Plan 1.Continue [...] made to ensure accuracy; however, inadvertent computerized vp lab errors may be pre sent. documented in [...] | | | | | [place] [address] | | | | | | [phone] | | | | | | | | +--------+---------+ + + + + + +--------+ + + | Name | Type | Priori | Associated Diagnoses | Order Schedule | | | | ty | | | + + +--------+ + + | * [facility] | Outpatient | Routin | Prostate cancer | Ordered: 03/06/2015 | | - AMB Referral | Referral | e | ([facility]) | | + + +--------+ + + [...]
--- OUTSIDE RECORDS SUMMARY | ~2019-10-20 | XMS | Encounter Summary ---
Demographics + + + | Address | [address] | | | [place] [address] | + + + | Home Phone [...] Team Providers + +------+ + | Care Hearing Impaired Itinerant Teacher Name | Role | Phone | + +------+ + | Parviz Brra DO | PCP | | + +------+ + Reason for Visit + + + | Reason | Comments | + + + | Follow-up | | + + + Encounter Details +--------+---------+ + + + | Date | Type | Department | Care Team | Description | +--------+---------+ + + + | 01/26/ | Office | [facility] | Odetteenstein, | COPD (chronic | | 2012 | Visit | PULMONARY [address] | Becca Segura MD | obstructive | | | | [place], | | pulmonary disease) | | | | [place] [address] | | (HCC) (Primary Dx); | | | | [phone] | | Nocturnal hypoxemia; | | | [...] [place]ola [place] [facility] [address] [place], [address] HPI Diego Lucas is a 77 y.o. male patient of Parviz Brar here today for follow up of COPD. At their last visit, we had treated him antibiotics, a course of levofloxacin. We tried to get sputum cultures from his prior admission in [place], but they had not done any. They [...] thinking about joining the gym down in [place]. He has not had hemoptysis. He has been evaluated for nocturnal oxygen and does use it. He is currently on 1.5 LPM at [facility]. He reports good compliance. He does not use it when he goes out of town. Past Medical History Past Medical History Diagnosis Date COPD (chronic obstructive pulmonary disease) Peptic ulcer disease with upper GI bleed Benign prostatic hypertrophy Prostate cancer s/p radiation treatment and on hormonal treatment with Lupron Osteoarthritis Heartburn Pulmonary nodules Cataracts, bilateral Pneumonia 05/2012 hospitalized [facility] Shoulder fracture 02/2012 Foot fracture [...] home. No other animal exposures.Grew up in [place]. Then lived in [place]. Then move d to [place]. In the service lived in [facility] and [place]. No recent travel. Allergies: [...] made to ensure accuracy; however, inadvertent computerized dragger out errors may be pre sent. documented in [...] | | | | | [place] [address] | | | | | | [phone] | | | | | | | [...]
--- OUTSIDE RECORDS SUMMARY | ~2019-10-20 | XMS | Encounter Summary ---
Demographics + + + | Address | [address] | | | [place] [address] | + + + | Home Phone | | + + + | Preferred Language | Unknown | + + + | Marital Status | | + + + | Yazidism Affiliation | 1076 | + + + | Race | White | + + + | Ethnic Group | Not or | + + + Author + + + | Author | [facility] | | | and [place] | + + + | Organization | [facility] [...] Providers + +------+ + | Care Senior Examiner Name | Role | Phone | + [...] (HCC) (Primary Dx); | | | | [place] | [place] | History of prostate | | | | [address] | [place] [address] | cancer | | | | [phone] | [phone] | | | | | | | [...] | | | | | [place] [address] | | | | | | [phone] | | | | | | | [...]
--- OUTSIDE RECORDS SUMMARY | ~2019-10-20 | XMS | Encounter Summary ---
Demographics + + + | Address | [address] | | | [place] [address] | + + + | Home Phone | | + + + | Preferred Language | Unknown | + + + | Marital Status | | + + + | Moravian Affiliation | 1076 | + + + | Race | White | + + + | Ethnic Group | Not or | + + + Author + + + | Author | [facility] | | | and [place] | + + + | Organization | [facility] | | | [...] Team Providers + +------+ + | Care Venue Attendant Name | Role | Phone | [...] | | Abnormal | Offenstein, | [address] | | | | | chest CT | Becca B, | [place], | | | | | Procedures | MD [address] | [place] [address] | | | | | CT Chest wo | [address] | Phone: | | | | | Contrast | [place], | [phone] | | | | | | [place] [address] | Fax: | | | | | | | [phone] | +--------+--------+ + + + + Reason for Visit + + + | Reason | Comments | + + + | Follow-up | | + + + Encounter Details +--------+---------+ + + + | Date | Type | Department | Care Team | Description | +--------+---------+ + + + | 09/06/ | Office | [facility] [place] | Offenstein, | Abnormal chest CT | | 2012 | Visit | PULMONARY [address] | Becca Segura MD | (Primary Dx); COPD | | | | [place] [place], | | (chronic obstructive | | | | [place] [address] | | pulmonary disease) | | | | [phone] | | ([facility]); Pneumonia | +--------+---------+ + + + Social [...] 3 months.Electronically signed by MD lizet May t 09/06/2012 11:48 AM PDT documented in this encounter Progress Notes Becca Castro MD - 09/06/2012 11:26 AM PDTFormatting of this note might be differe nt from the original. Pulmonary Follow Up MD [place] Noyola [facility] [address] [place], [address] HPI Diego Lucas is a 76 y.o. male patient of Parviz Brar here today for follow up of COPD. He has had a terrible time lately. His August 25 after having to have a bowel rese ction and then having a prolonged stay at [facility]. She then had to have a repeat tracheostomy, which plugged and then she had a repeat hospitalization, and finally . He himself broke his shoulder and foot. He had pneumonia as well. He was hospitalized for t his at [facility] in May. He was in the [...] good compliance, except when he was in [place]. Past Medical History Past Medical History Diagnosis Date COPD (chronic obstructive pulmonary disease) Peptic ulcer disease with upper GI bleed Benign prostatic hypertrophy Prostate cancer s/p radiation treatment and on hormonal treatment with Lupron Osteoarthritis Heartburn Pulmonary nodules Cataracts, bilateral Pneumonia 05/2012 hospitalized [facility] Shoulder fracture 02/2012 Foot fracture 02/2012 [...] home. No other animal exposures.Grew up in [place]. Then lived in [place]. Then move d to [place]. In the service lived in [facility] and [place]. No recent travel. Allergies: Allergies Allergen Reactions [...] janee for which he was hospitalized at [facility]. Last PSA was 2, and these [...] he becomes ill. Plan 1.Get imaging from [facility]. 2.Repeat chest CT scan in 3 months. 3.Continue Flovent and Atrovent. He was advised to call if new pulmonary symptoms were to develop. Return to clinic in 3 months with repeat chest CT, or sooner with concerns. CC: Parviz Brar Portions of this report were transcribed using voice recognition software. Every effort wa s made to ensure accuracy; however, inadvertent computerized road crew member errors may be pre sent. documented in [...] | | | | | [place] [address] | | | | | | [phone] | | | | | | | | +--------+---------+ + + + documented as of this encounter Results CT Chest wo Contrast (10/27/2012 3:21 PM PDT) + + | Specimen | + + | | + + + + + | Narrative | Performed At | + + + | [facility] | [place] | | Department [address] [place], [place] [address] | [facility] | | [ rep ct street[address]] [ rep [facility] | | st zip] Signed | - IMAGING | | | | | Patient Name: DIEGO LUCAS Physician: | | | MAGDA. : 1935 Age: 76 Sex: M Unit #: [id number] | | | Exam Date: 10/27/12 [place] [facility] | | | Report #: [id number] Page: | | | %(RAD)RES..mtdd.print.filter("pg") of %(RAD) | | | RES..mtdd.print.filter("tpg") | | | | | | Accession Number: [id number] | | | [id number] CHEST CT CLINICAL HISTORY: FOLLOWUP | | [...] | | | Transcribed Date/Time: 10/27/2012 16:01 Radioisotope Technologist: | | | <<Signature on File>> | | | Yosef | | | MD Jimmie10/27/122003 <Electronically signed by Yosef Samuel MD> | | | Yosef Samuel MD 10/27/12 1521 Radioisotope Technologist: Korrio | | | [id number]/05/13 1601 Becca Castro MD | | | | | + + + + + + + + | Performing | Address | City/State[facility] | Phone Number | | Organization | | | | + + + + + | [address] | [address] | [place] | [phone] | | [facility] | | [address] | | | - IMAGING | | [...]
--- OUTSIDE RECORDS SUMMARY | ~2019-10-20 | XMS | Encounter Summary ---
Demographics + + + | Address | [address] | | | [place] [address] | + + + | Home Phone [...] + + | Author | [facility] | | | and [place] | + + + | Organization | [facility] | | [...] Team Providers + +------+ + | Care Cow Puncher Name | Role | Phone | + +------+ + | Parviz Brar DO | PCP | | + +------+ + Reason for Visit +--------+--------+ + | Reason | Onset | Comments | | | Date | | +--------+--------+ + | Other | 05/05/ | nocturnal O2 in [place] | | | 2013 | | +--------+--------+ + Encounter Details +--------+ + + + + | Date | Type | Department | Care Team | Description | +--------+ + + + + | 06/26/ | [facility] | [facility] [place] | Offenstein, | Other (nocturnal O2 | | 2013 | | PULMONARY [address] | Becca Segura MD | in [place]) | | | | [place], | | | | | | [place] [address] | | | | | | [phone] | | | +--------+ + + + [...] Telephone Encounter - Rupa Watt RN - 06/26/2013 2:08 PM PDTRex called with [employer] for the [facility] in [place]. He needs a note/order for nocturnal O2 to [facility], fax number [phone]. documented in this encounter Plan of Treatment +--------+---------+ + + + | Date | Type | Specialty | Care Team | Description | +--------+---------+ + + + | 12/26/ | Office | Urology | Jorje Rutledge | | | 2019 | Visit | | MD [address] | | | | | | [place] | | | | | | [place] [address] | | | | | | [phone] | | | | | | | | +--------+---------+ + + + documented as of this encounter Visit Diagnoses + + | Diagnosis | + + | Chronic airway obstruction, not elsewhere classified - Primary | + + | Hypoxemia | + + documented in this encounter"
--- OUTSIDE RECORDS SUMMARY | ~2019-10-20 | XMS | Encounter Summary ---
Demographics + + + | Address | [address] | | | [place] [address] | + + + | Home Phone | | + + + | Preferred Language | Unknown | + + + | Marital Status | | + + + | Lutheran Affiliation | 1076 | + + + | Race | White | + + + | Ethnic Group | Not or | + + + Author + + + | Author | [facility] | | | and [place] | + + + | Organization | [facility] | | | [...] Team Providers + +------+ + | Care Arbor End Mainspring Former Name | Role | Phone | + [...] + + | 05/04/ | Refill | [facility] | Jorje Rutledge | Medication Refill | | 2017 | | [address] | MD [address] | | | | | [place] | [place] | | | | | [address] | [place] [address] | | | | | [phone] | [phone] | | | | | | | [...] | | | | | [place] [address] | | | | | | [phone] | | | | | | | | +--------+---------+ + + + documented as of this encounter Visit Diagnoses Not on filedocumented in this encounter"
--- OUTSIDE RECORDS SUMMARY | ~2019-10-20 | XMS | Encounter Summary ---
Demographics + + + | Address | [address] | | | [place] [address] | + + + | Home Phone [...] Organization | [facility] [...] Team Providers + +------+ + | Care Steamblaster Name | Role | Phone | + [...] + + | 08/31/ | Office | [facility] | Jorje Rutledge | Prostate cancer | | 2018 | Visit | [address] | MD [address] | ([facility]) (Primary Dx); | | | | [place] | [place] | Preventative health | | | | [address] | [place] [address] | care | | | | [phone] | [phone] | | | | | | | [...] history ofT2c or T3 adenocarcinoma the prostate, [place] 4+3 = 7, PSA 13.9,which was diagnosed [...] fracture; COPD (chronic obstructive pulmonary dis ease) ([facility]); Depression; Dermatophytosis tinea capitis; Diverticulosis (01/2015); Essential hypertension; Foot fracture (02/2012); Gastritis (01/2015); GI bleed (01/2015); Heart murmur; Heartburn; Hiatal hernia (01/2015); History of rectal bleeding; Hypoxia; Insomnia; Iron def iciency anemia; Kidney stone (2004); Lumbar disc herniation; Migraines; 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 Allergies Allergen Reactions Ipratropium [place] [facility] Other (See Comments) Reaction: Cough Penicillins [...] g by mouth Daily. Respiratory Therapy Supplies [facility] Please provide an [...] was 15 cc. Metabolic panel performed by [facility] on 08/26/2017: BUN was 18, and creatinine 0.86, within EGFR greater than 60. 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 Diego is instructed to resume his usual and customary care with his primary care provider. I asked Diego to notify me if there were any difficulties voiding, or UTI symptoms, or flank pain, or for any questions or concerns whatsoever. This document was generated in part using [employer] voice recognition software. Although ever y effort is made to edit the content, soybean specialties cook errors may occur. Occasional wrong word or sound alike substitutions may have occurred due to the inherent limitations of the voice recognition software. Please read the chart carefully and recognize, using context, where eloy substitutions may have occurred. documented in is encounter Plan of Treatment +--------+---------+ + + + | Date | Type | Specialty | Care Team | Description | +--------+---------+ + + + | 12/26/ | Office | Urology | Jorje Rutledge | | | 2020 | Visit | | MD [address] | | | | | | [place] | | | | | | [place] [address] | | | | | | [phone] | | | | | | | [...] 1.001 - 1.030 | | | | [place], | | | | | | [facility], [...]
--- OUTSIDE RECORDS SUMMARY | ~2019-10-20 | XMS | Encounter Summary ---
Demographics + + + | Address | [address] | | | [place] [address] | + + + | Home Phone [...] Team Providers + +------+ + | Care Diazo Technician Name | Role | Phone | [...] | | Abnormal | Offenstein, | [address] | | | | | chest CT | Becca Segura, | [place], | | | | | Procedures | [address] | [place] [address] | | | | | CT Chest wo | [address] | Phone: | | | | | Contrast | [place], | [phone] | | | | | | [place] [address] | Fax: | | | | | | | [phone] | +--------+--------+ + + + + Encounter Details +--------+ + + + + | Date | Type | Department | Care Team | Description | +--------+ + + + + | 10/27/ | Hospital | [facility] | Offenstein, | Abnormal chest CT | | 2012 | Encounter | MED CTR XRAY [address] | Becca Segura MD | | | | | [place] | | | | | | [place] [address] | | | | | | [phone] | | | +--------+ + + + [...] | | | | | | [place] | | | | | | [place] [address] | | | | | | [phone] | | | | | | | [...] Performed At | + + + | [facility] | CONCRETE | | Department [address] [place], [place] | [facility] | | [ rep ct street[address]] [ rep ct [facility] | | st zip] Signed | - IMAGING | | | | | Patient Name: DIEGO LUCAS Chayo Physician: | | | OFFE. : 1935 Age: 76 Sex: M Unit #: [id number] | | | Exam Date: 10/27/12 Location: [facility] [place] | | | Report #: [id number] Page: | | | %(RAD)RES..mtdd.print.filter("pg") of %(RAD) | | | RES..mtdd.print.filter("tpg") | | | | | | Accession Number: [id number] | | | [id number] CHEST CT CLINICAL HISTORY: FOLLOWUP | | [...] | | | Transcribed Date/Time: 10/27/2012 16:01 Rail Maintenance Worker: | | | AndrewSSP <<Signature on File>> | | | Yosef | | | MD Jimmie10/27/122003 <Electronically signed by Yosef Samuel MD> | | | Yosef Samuel MD 10/27/12 1521 Rail Maintenance Worker: Jarrod | | | [email or web address]/05/13 1601 Becca Castro MD | | | | | + + + + + + + + | Performing | Address | City/State/Zipcode | Phone Number | | Organization | | | | + + + + + | [facility] | [address] | [place] | [phone] | | [facility] | | [address] | | | - IMAGING | | | | + + + + + documented in this encounter Visit Diagnoses + + | Diagnosis | + + | Abnormal chest CT Nonspecific (abnormal) findings on radiological and other | | examination of other intrathoracic organs | + + documented in this encounter
--- OUTSIDE RECORDS SUMMARY | ~2019-10-20 | XMS | Encounter Summary ---
Demographics + + + | Address | [address] | | | [place] [address] | + + + | Home Phone [...] + | Author | [facility] | | | and [place] | + + + | Organization | [facility] | | | and [...] Providers + +------+ + | Care Senior Online Marketing Manager Name | Role | Phone | + +------+ + PCP | Unavailable | + +------+ + Encounter Details +--------+ + + + + | Date | Type | Department | Care Team | Description | +--------+ + + + + | 08/22/ | Hospital | [facility] | | | | 2007 - | Encounter | MED CTR CANCER | | | | | | CENTER [address] | | | | 09/21/ | | [place] | | | | 2007 | | [address] | | | | | | [phone] | | | +--------+ + + + [...] | | | | | [place] [address] | | | | | | [phone] | | | | | | | | +--------+---------+ + + + documented as of this encounter Visit Diagnoses Not on filedocumented in this encounter"
--- OUTSIDE RECORDS SUMMARY | ~2019-10-20 | XMS | Encounter Summary ---
Demographics + + + | Address | [address] | | | [place] [address] | + + + | Home Phone [...] Organization | [facility] [...] Team Providers + +------+ + | Care Human Insights Lead Ads Marketing Name | Role | Phone | + [...] + + | 05/31/ | Office | [facility] | Jorje Rutledge | Prostate cancer | | 2018 | Visit | [address] | [address] | ([facility]) (Primary Dx); | | | | [place] | [address] | Incomplete bladder | | | | [address] | [place] [address] | emptying | | | | [phone] | [phone] | | | | | | | [...] + | Blood Pressure | 124/74 | 05/31/2017 10:35 AM | | | | | PDT | | + + + + + | Pulse | 76 | 05/31/2017 10:35 AM | | | | | PDT | | + + + + + | Temperature | - | - | | + + + + + | Respiratory Rate | 20 | 05/31/2017 10:35 AM | | | | | PDT | | + + + + + | Oxygen Saturation | - | - | | + + + + + | Inhaled Oxygen | - | - | | | Concentration | | | | + + + + + | Weight | 77.8 kg (171 lb 8.3 | 05/31/2017 10:35 AM | | | | oz) | PDT | | + + + + + | Height | 177.8 cm (5' 10") | 05/31/2017 10:35 AM | | | | | PDT | | + + + + + | Body Mass Index | 24.61 | 05/31/2017 10:35 AM | | | | | PDT | | + + + + + documented in this encounter Progress Notes Jorje Rutledge MD - 05/31/2017 10:30 AM PDTFormatting of this note might be differen t from the original. Diego is a 81 y.o. male patient of Parviz Brar, DO being seen today for a follow up of prostate cancer. Symptomatically, he has been increasing his tamsulosin, and is able to empty his bladder mo re effectively at this time. His postvoid residual this morning was less than 10 cc. His cu rrent AUA symptom score is 16, with a bother score of 2. He denies any dysuria or hematuria , or incontinence. He is a pleasant gentleman with a history ofT2c or T3 adenocarcinoma the prostate, [place] 4+3 = 7, PSA 13.9, which was diagnosed in June 2007. He received radiation therapy by Dr. Garza, with post radiation adjuvant Lupron administrat ion for approximately 1-1/2 years. His PSA soy was 0.01. He did have a post radiation PSA recurrence with a slow doubling time, however. In July 24, his PSA was 5.38, and he was started on Lupron. He has done well symptomatically, wit h only hot flashes with Lupron. Megace was tried for hot flashes, but Diego was not impressed with the results. His last Lupron administration was in December 31, 2015. More recently, his PSA is starting to rise again. His current PSA doubling time is around 3 months, and his last PSA on 05/28/2017 was 2.56. He denies any bone pain, or other signific ant changes in weight or energy. Past Medical History He has a past [...] or use drugs. Allergies Allergen Reactions Ipratropium [place] Hfa Other (See Comments) Reaction: Cough Penicillins Medications: Outpatient Encounter Prescriptions as of 05/31/2017 Medication Sig Dispense Refill albuterol (PROAIR HFA) [...] facility-administered encounter medications on file as of 05/31/2017. AUA BPH SYMPTOM SCORE Not at all [...] begin urination ? [] 0 [] 1 [x] 2 [] 3 [] 4 [] 5 None 1 [...] Mild 1-7, Moderate 8-19, Severe 20-35 TOTAL: 16 BOTHER SCORE DUE TO URINARY SYMPTOMS Delighted [...] 5 [] 6 PHYSICAL EXAM Vitals: BP 124/74 | Pulse 76 | Resp 20 | Ht 1.778 m (5' 10") | Wt 77.8 kg (171 lb 8.3 o z) | BMI 24.61 kg/m General: Awake, alert, in no acute distress. Speech is fluent. Appears to be stated age. Lungs: Normal respiratory effort. Chest: No rib or bony tenderness. Back: No CVA tenderness. Abdomen: Soft, nontender. Extremities: Non-edematous. Neuro: Awake, alert, oriented. Psychiatric: Mood and affect are normal. Normal judgment. Skin: Warm and dry, no erythematous rash. DIAGNOSTIC DATA: Urinalysis is negative for blood, nitrites, and leukocyte esterase. Post void residual by bladder scan is less than 10 cc. BUN/creatinine and creatinine were 21 and 0.87 respectively on 05/28/2017. EGFR is 85. PSA 05/28/17 2.56 02/27/17 1.27 10/24/170.203 06/26/170.140 12/28/15 0.247 06/28/160.217 04/04/163.39 01/04/20155.65 09/25/154.57 11/20130.128 07/20135.38 10/20122.5 08/20110.0172 .32 .9 IMPRESSION: Stage T2c to T3 [place] 4+3 = 7 adenocarcinoma the prostate, status post radiat ion in 2007 with post radiation ad juvant ADT 1.5 years Post radiation PSA recurrence with int ermittent hormone ablation since 2013, last Lupron was given in December 2015, currently, with slowly rising PSA Mild bladder outlet obstruction, improved with tamsulosin PLAN: Diego is doing better as far as his bladder outlet obstruction is concerned. His post void residual is much reduced on the tamsulosin, and I've asked him to continue with this m edication. His PSA doubling time is rather short, but the current levels do not require reinstitution of Lupron. He does have symptomatic hot flashes with Lupron, and would like to forego treat ment as long as possible. I have asked him to obtain updated lab evaluation, including PSA in 3 months and return for a recheck. Diego is instructed to resume his usual and customary care with his primary care provider. I asked Diego to notify me if there were any difficulties voiding, or UTI symptoms, or flank pain, or for any questions or concerns whatsoever. This document was generated in part using [employer] voice recognition software. Although ever y effort is made to edit the content, interventional pain physician errors may occur. Occasional wrong word or [...] | | | | | [place] [address] | | | | | | [phone] | | | | | | | | +--------+---------+ + + + + +------+--------+ + + | Name | Type | Priori | Associated Diagnoses | Order Schedule | | | | ty | | | + +------+--------+ + + | Basic Metabolic | Lab | Routin | Prostate cancer | Expected: | | Panel | | e | (HCC) Incomplete | 08/23/2017, Expires: | | | | | bladder emptying | 06/01/2018 | + +------+--------+ + + | PSA, Diagnostic | Lab | Routin | Prostate cancer | Expected: | | | | e | (HCC) Incomplete | 08/23/2017, Expires: | | | | | bladder emptying | 06/01/2018 | + +------+--------+ + + documented as of this encounter Procedures + +--------+ + + + | Procedure Name | Priori | Date/Time | Associated Diagnosis | Comments | | | ty | | | | + +--------+ + + + | IMAGING REPORT - | | 05/31/2017 | | Results for this | | [...] | LABS - EXTERNAL SCAN | | 04/28/2017 | | Results for this | | | | 12:00 AM | | procedure are in the | | | | PST | | results section. | + +--------+ + + + documented in this encounter Results IMAGING REPORT - EXTERNAL SCAN (05/31/2017 12:00 AM PDT) + + + | Narrative | Performed At | + + + | Ordered by an | | | unspecified provider. | | + + + LABS - EXTERNAL SCAN (05/28/2017 12:00 AM PDT) + + + | Narrative | Performed At | + + + | Ordered by an | | | unspecified provider. | | + + + LABS - EXTERNAL SCAN (04/28/2017 12:00 AM PST) + + + | Narrative | Performed At | + + + | Ordered by an | | | unspecified provider. | | + + + documented in this encounter Visit Diagnoses + + | Diagnosis | + + | Prostate cancer (HCC) - Primary Malignant neoplasm of prostate | + + | Incomplete bladder emptying | + + documented in this encounter
--- OUTSIDE RECORDS SUMMARY | ~2019-10-20 | XMS | Encounter Summary ---
Demographics + + + | Address | [address] | | | [place] [address] | + + + | Home Phone [...] + + + | Author | [facility] | | | and [place] | + + + | Organization | [facility] | | | [...] Providers + +------+ + | Care Clinical Trial Educator Name | Role | Phone | + +------+ + | Parviz Brar DO | PCP | | + +------+ + Reason for Visit +---------+--------+ + | Reason | Onset | Comments | | | Date | | +---------+--------+ + | Results | 10/27/ | Pillcam | | | 2016 | | +---------+--------+ + Encounter Details +--------+ + + + + | Date | Type | Department | Care Team | Description | +--------+ + + + + | 10/27/ | Telephone | [facility] | Froylan Werner MD | Results (Pillcam) | | 2017 | | GASTROENTEROLOGY | [address], [place] | | | | | [address] [place] | [address] [place], [place] | | | | | [address] [place], [place] | [address] | | | | | [address] | | | | | | [phone] | | | +--------+ + + + [...] Telephone Encounter - Roxana Lowe RN - 10/27/2016 3:55 PM PDTSpoke with patient and informed him that Dr. Werner reviewed his PillCam study. Small bowel appears normal. Ne gative blood indicator no evidence of mass lesion or inflammatory bowel disease. Capsule in colon at the end of study. Petechiae noted in stomach. Coffee-ground material and debris obscuring detail of gastric mucosa. Dr. Werner felt if he has a recurrent GI bleed consider repeat upper endoscopy at that time.Electronically signed by Roxana Lowe RN at 06/2016 4:01 PM PDTdocumented in this encounter Plan of Treatment +--------+---------+ + + + | Date | Type | Specialty | Care Team | Description | +--------+---------+ + + + | 12/26/ | Office | Urology | Jorje Rutledge | | | 2020 | Visit | | [address] | | | | | | [address] | | | | | | [place] [address] | | | | | | [phone] | | | | | | | | +--------+---------+ + + + documented as of this encounter Visit Diagnoses Not on filedocumented in this encounter"
--- OUTSIDE RECORDS SUMMARY | ~2019-10-20 | XMS | Encounter Summary ---
Demographics + + + | Address | [address] | | | [place] [address] | + + + | Home Phone [...] | Organization | [facility] [...] Team Providers + +------+ + | Care Real Estate Portfolio Manager Name | Role | Phone | [...] + + | 11/29/ | Office | [facility] | Jorje Rutledge | Prostate cancer | | 2018 | Visit | [address] | [address] | ([facility]) (Primary Dx); | | | | [place] | [place] | Preventative health | | | | [address] | [place] [address] | care | | | | [phone] | [phone] | | | | | | | [...] month formula) is not available (order d gracielasteven). Dr Rutledge changed order............................................Dina Garcia RN on 11/29/17 at 10:44 Jorje Whitfield nd, MD - 11/29/2017 10:30 AM PDT . Diego is a 82 y.o. male patient of Jason Read MD being seen today for a follow up fo r prostate cancer. He has a history of T2c or T3 adenocarcinoma the prostate, [place] 4+3 = 7, PSA 13.9,whernestina diego was diagnosed in June 2007. He received radiation therapy by Dr. Garza, with post radiation adjuvant Lupron administrat ion for approximately 1-1/2 years. His PSA soy was 0.01 at that time. He did have a post radiation PSA recurrence with a slow doubling time, and in July 2013, mt s PSA was 5.38. He was started on Lupron, from 2013 until December 31, 2015. He tolerat [...] we discussed reinstituting Lupron. He is agre eable, and I have given him a 6 [...] fracture; COPD (chronic obstructive pulmonary dis ease) ([facility]); Depression; Dermatophytosis tinea capitis; Diverticulosis (01/2015); Essential hypertension; Foot fracture (02/2012); Gastritis (01/2015); GI bleed (01/2015); Heart murmur; Heartburn; Hiatal hernia (01/2015); History of rectal bleeding; Hypoxia; Insomnia; Iron def iciency anemia; Kidney stone (2004); Lumbar disc herniation; Migraines; Mood disorder ([facility]) of unknown (axis III) etiology; Nocturnal hypoxia; Osteoarthritis; Peptic ulcer disease; Pne umonia (05/2012); Prostate cancer ([facility]) (2007); Pulmonary nodules; Seborrheic dermatitis of s calp; Shoulder fracture (02/2012); Supplemental oxygen dependent; SVT (supraventricular tachy cardia) ([facility]) (01/2014); TIA (transient ischemic attack); [...] g by mouth Daily. Respiratory Therapy Supplies [facility] Please provide an [...] 03/19/2014 PSA Date Results 11/25/17 7.17 [facility] 08/26/17 4.44 05/28/17 2.56 04/28/17 1.49 02/27/17 1.27 12/28/15 0.247 06/29/15 0.217 04/04/15 3.39 01/04/2015 5.65 09/25/14 4.57 11/2013 0.128 07/2013 5.38 10/2012 2.5 08/2011 0.0172 04/2011 1.32 06/2007 13.9 IMPRESSION: Stage T2c to T3 [place] 4+3 = 7 adenocarcinoma the prostate, status [...] This document was generated in part using [employer] voice recognition software. Although ever y effort is made to edit the content, lead operator errors may occur. Occasional wrong word or sound alike substitutions may have occurred due to the inherent limitations of the voice recognition software. Please read the chart carefully and recognize, using context, where th eloy substitutions may have occurred.Electronically signed by Jorje Rutledge MD at 09/2017 11:37 AM PDTdocumented in this encounter Plan [...] | | | | | [place] [address] | | | | | | [phone] | | | | | | | [...] 1.001 - 1.030 | | | | [place], | | | | | | [facility], [...]
--- OUTSIDE RECORDS SUMMARY | ~2019-10-20 | XMS | Encounter Summary ---
Demographics + + + | Address | [address] | | | [place] [address] | + + + | Home Phone [...] + | Organization | [facility] | [...] Team Providers + +------+ + | Care Farm Machinery Assembler Name | Role | Phone | [...] | SR | | | | | [address] | | | | | | [place], [place] | | | | | | [address] | | | | | | [phone] | | | +--------+ + + + [...] | | | | | [place] [address] | | | | | | [phone] | | | | | | | | +--------+---------+ + + + documented as of this encounter Visit Diagnoses Not on filedocumented in this encounter
--- OUTSIDE RECORDS SUMMARY | ~2019-10-20 | XMS | Encounter Summary ---
Demographics + + + | Address | [address] | | | [place] [address] | + + + | Home Phone [...] Team Providers + +------+ + | Care Embedded Software Programmer Name | Role | Phone | + +------+ + | Parviz Brar DO | PCP | | + +------+ + Encounter Details +--------+ + + + + | Date | Type | Department | Care Team | Description | +--------+ + + + + | 04/03/ | Hospital | [facility] | Jorje Rutledge | | | 2016 | Encounter | MED CTR LABORATORY | [address] | | | | | [address] [place] | [address] | | | | | [place], [place] | [place] [address] | | | | | [address] | [phone] | | | | | [phone] | | | +--------+ + + + [...] | | | | | [place] [address] | | | | | | [phone] | | | | | | | | +--------+---------+ + + + documented as of this encounter Visit Diagnoses Not on filedocumented in this encounter"
--- OUTSIDE RECORDS SUMMARY | ~2019-10-20 | XMS | Encounter Summary ---
Demographics + + + | Address | [address] | | | [place] [address] | + + + | Home Phone | | + + + | Preferred Language | Unknown | + + + | Marital Status | | + + + | Cheondoism Affiliation | 1076 | + + + | Race | White | + + + | Ethnic Group | Not or | + + + Author + + + | Author | [facility] | | | and [place] | + + + | Organization | [facility] | | [...] Team Providers + +------+ + | Care Contact Center Specialist Name | Role | Phone | + +------+ + PCP | Unavailable | + +------+ + Encounter Details +--------+ + + + + | Date | Type | Department | Care Team | Description | +--------+ + + + + | 11/23/ | Hospital | [facility] | | | | 2008 - | Encounter | [facility] | | | | | | CENTER [address] | | | | 12/22/ | | [place] | | | | 2008 | | [address] | | | | | | [phone] | | | +--------+ + + + [...] | | | | | [place] [address] | | | | | | [phone] | | | | | | | | +--------+---------+ + + + documented as of this encounter Visit Diagnoses Not on filedocumented in this encounter"
--- OUTSIDE RECORDS SUMMARY | ~2019-10-20 | XMS | Encounter Summary ---
Demographics + + + | Address | [address] | | | [place] [address] | + + + | Home Phone [...] | Organization | [facility] [...] Team Providers + +------+ + | Care Recording Artist Name | Role | Phone | + +------+ + | Jason Read | PCP | | | MD | | | + +------+ + Reason for Visit +--------+--------+ + | Reason | Onset | Comments | | | Date | | +--------+--------+ + | Other | 11/17/ | Labs needed prior to appt. | | | 2017 | | +--------+--------+ + Encounter Details +--------+ + + + + | Date | Type | Department | Care Team | Description | +--------+ + + + + | 11/17/ | Telephone | [facility] [place] | Jorje Rutledge | Other (Labs needed | | 2017 | | [address] | [address] | prior to appt. ) | | | | [place] | [place] | | | | | [address] | [place] [address] | | | | | [phone] | [phone] | | | | | | | [...] Encounter - Sanam Waddell Medical Assistant - 2017 2:32 PM PDTReques t faxed for results. Electronically signed by Christ Lilly at 2017 2:33 PM PDTTelephone Encounter - Alicia Maier - 11/22/2017 1:39 PM PDTPT CALL ED BACK AND STATED HE IS GOING TO GO IN ON 11/25/17 TO GET LABS DONE. elephone Encounter - Sanam Waddell Med ical Director Organizational - 11/22/2017 1:07 PM PDTLeft message to call back. elephone Encounter - Sanam Waddell Medical Assistant - 11/17/2017 8:51 AM PDTNotified patient labs are needed lynn or to 11/29/17 appt. Orders were faxed to [facility]. Patient verbalized understanding and ferro d no further questions at this time. [facility] umjian in this encounter Plan of Treatment +--------+---------+ + + + | Date | Type | Specialty | Care Team | Description | +--------+---------+ + + + | 12/26/ | Office | Urology | Jorje Rutledge | | | 2019 | Visit | | [address] | | | | | | [address] | | | | | | [place] [address] | | | | | | [phone] | | | | | | | | +--------+---------+ + + + documented as of this encounter Visit Diagnoses Not on filedocumented in this encounter"
--- OUTSIDE RECORDS SUMMARY | ~2019-10-20 | XMS | Encounter Summary ---
Demographics + + + | Address | [address] | | | [place] [address] | + + + | Home Phone [...] Organization | [facility] [...] Team Providers + +------+ + | Care Labor Operator Name | Role | Phone | [...] + + | 01/27/ | Refill | [facility] | Jorje Rutledge | Medication Refill | | 2019 | | [address] | [address] | | | | | [place] | [place] | | | | | [address] | [place] [address] | | | | | [phone] | [phone] | | | | | | | [...] | | | | | [place] [address] | | | | | | [phone] | | | | | | | | +--------+---------+ + + + documented as of this encounter Visit Diagnoses Not on filedocumented in this encounter"
--- OUTSIDE RECORDS SUMMARY | ~2019-10-20 | XMS | Encounter Summary ---
Demographics + + + | Address | [address] | | | [place] [address] | + + + | Home Phone [...] Team Providers + +------+ + | Care Help Desk Specialist Name | Role | Phone | + +------+ + PCP | Unavailable | + +------+ + Encounter Details +--------+ + + + + | Date | Type | Department | Care Team | Description | +--------+ + + + + | 12/19/ | Hospital | [facility] | | | | 2009 - | Encounter | [facility] | | | | | | CENTER [address] | | | | 12/22/ | | [place] | | | | 2009 | | [address] | | | | | | [phone] | | | +--------+ + + + [...] | | | | | [place] [address] | | | | | | [phone] | | | | | | | | +--------+---------+ + + + documented as of this encounter Visit Diagnoses Not on filedocumented in this encounter"
--- OUTSIDE RECORDS SUMMARY | ~2019-10-20 | XMS | Encounter Summary ---
Demographics + + + | Address | [address] | | | [place] [address] | + + + | Home Phone | | + + + | Preferred Language | Unknown | + + + | Marital Status | | + + + | Jain Affiliation | 1076 | + + + [...] Team Providers + +------+ + | Care Game Technician Name | Role | Phone | + +------+ + PCP | Unavailable | + +------+ + Encounter Details +--------+ + + + + | Date | Type | Department | Care Team | Description | +--------+ + + + + | 08/15/ Hospital | [facility] | [place], | | | 2012 | Encounter | MED CTR XRAY [address] | Becca Segura MD | | | | | [address] | | | | | | [place] [address] | | | | | | [phone] | | | +--------+ + + + [...] | | | | | [place] [address] | | | | | | [phone] | | | | | | | | +--------+---------+ + + + documented as of this encounter Visit Diagnoses Not on filedocumented in this encounter"
--- OUTSIDE RECORDS SUMMARY | ~2019-10-20 | XMS | Encounter Summary ---
Demographics + + + | Address | [address] | | | [place] [address] | + + + | Home Phone | | + + + | Preferred Language | Unknown | + + + | Marital Status | | + + + | Presybeterian Affiliation | 1076 | + + + | Race | White | + + + | Ethnic Group | Not or | + + + Author + + + | Author | [facility] | | | and [place] | + + + | Organization | [facility] | | [...] Team Providers + +------+ + | Care Shape Hand Name | Role | Phone | [...] + + | 07/01/ | Office | [facility] [place] | [place], | Panlobular emphysema | | 2015 | Visit | PULMONARY [address] | Billy Segura MD | ([facility]) (Primary Dx); | | | | [place], | | Nocturnal hypoxemia | | | | [place] [address] | | due to emphysema | | | | [phone] | | ([facility]); Pulmonary | | | | | | [...] exercising regularly, out walking a lot in [facility]. He is running for [employer] in [place]. He has been coughing a little more this summer, he thinks because of allergies. He has been bringing up yellow phlegm. He has not had any recent hemoptysis. He has had a runny nose re cently. He has been evaluated for nocturnal oxygen and does use it. He is currently on 2 L[facility] at [facility]. He reports good compliance. He restested [...] hormonal treatment with Lupron; DR JULIAN [place] COPD (chronic obstructive pulmonary disease) ([facility]) DR BILLY ARAUJO Pneumonia 05/2012 hospitalized [facility] Heart murmur DR MARIAA OLIVERA [...] Laterality: N/A; Surgeon: Jennifer Wilder MD; Location: [facility] Egd and colonoscopy 02/06/2015 Dr. [...] No other animal exposures. Grew up in [place]. Then lived in [place]. Then moved to [place]. In the service lived i [facility] and [place]. No recent travel. Allergies: Allergies Allergen Reactions [...] PO) Take by mouth. Respiratory Therapy Supplies [facility] Please provide an O2 concentrator while Diego [...] made to ensure accuracy; however, inadvertent computerized rn transport errors may be pre sent. documented in [...] | | | | | [place] [address] | | | | | | [phone] | | | | | | | [...]
--- OUTSIDE RECORDS SUMMARY | ~2019-10-20 | XMS | Encounter Summary ---
Demographics + + + | Address | [address] | | | [place] [address] | + + + | Home Phone [...] Team Providers + +------+ + | Care Testing Analyst Name | Role | Phone | + +------+ + PCP | Unavailable | + +------+ + Encounter Details +--------+ + + + + | Date | Type | Department | Care Team | Description | +--------+ + + + + | 03/09/ | Hospital | [facility] | | | | 1994 | Encounter | MED CTR XRAY [address] | | | | | | [place] | | | | | | [place] [address] | | | | | | [phone] | | | +--------+ + + + [...] | | | | | [place] [address] | | | | | | [phone] | | | | | | | | +--------+---------+ + + + documented as of this encounter Visit Diagnoses Not on filedocumented in this encounter"
--- OUTSIDE RECORDS SUMMARY | ~2019-10-20 | XMS | Encounter Summary ---
Demographics + + + | Address | [address] | | | [place] [address] | + + + | Home Phone [...] Organization | [facility] [...] Team Providers + +------+ + | Care Legal Support Manager Name | Role | Phone | + +------+ + | Parviz Brar DO | PCP | | + +------+ + Encounter Details +--------+ + + + + | Date | Type | Department | Care Team | Description | +--------+ + + + + | 06/16/ | Hospital | [facility] | Conversion | Pain | | 2017 | Encounter | CONVERSION [address] | Transaction, | | | | | [address] | Provider Unknown | | | | | [place], [place] | [phone] | | | | | [address] | | | | | | [phone] | | | +--------+ + + + [...] + +---------+ + + | triamcinolone | ZMAZAM EXT AA BID FOR 2 | | [...] | | | | | [place] [address] | | | | | | [phone] | | | | | | | [...]
--- OUTSIDE RECORDS SUMMARY | ~2019-10-20 | XMS | Encounter Summary ---
Demographics + + + | Address | [address] | | | [place] [address] | + + + | Home Phone | | + + + | Preferred Language | Unknown | + + + | Marital Status | | + + + | Jewish Affiliation | 1076 | + + + [...] Team Providers + +------+ + | Care Process Development Engineer Name | Role | Phone | + +------+ + | Parviz Brar DO | PCP | | + +------+ + Encounter Details +--------+ + + + + | Date | Type | Department | Care Team | Description | +--------+ + + + + | 03/13/ | Orders Only | [facility] | [place], | COPD (chronic | | 2015 | | [facility] | Becca Segura MD | obstructive | | | | FUNCTION [address] | | pulmonary disease); | | | | [place], | | Nocturnal hypoxemia | | | | [place] [address] | | due to emphysema | | | | [phone] | | ([facility]) | +--------+ + + + + Social [...] | | | | | [place] [address] | | | | | | [phone] | | | | | | | [...]
--- OUTSIDE RECORDS SUMMARY | ~2019-10-20 | XMS | Encounter Summary ---
Demographics + + + | Address | [address] | | | [place] [address] | + + + | Home Phone | | + + + | Preferred Language | Unknown | + + + | Marital Status | | + + + | Jewish Affiliation | PRE | + + + [...] Providers + +------+ + | Care Automotive Leasing Sales Representative Name | Role | Phone [...] HERNANDEZ Garces | | | | | [address] | [address] | | | | | [address] | [place], [place] | | | | | Mailcode: [address] | [address] | | | | | [facility] | [phone] | | | | | [place], [place] | | | | | | [address] | | | | | | [phone] | | | +--------+ + + + [...]
--- OUTSIDE RECORDS SUMMARY | ~2019-10-20 | XMS | Encounter Summary ---
Demographics + + + | Address | [address] | | | [place] [address] | + + + | Home Phone [...] Team Providers + +------+ + | Care Sintering Press Operator Name | Role | Phone [...] | | Abnormal | [place], | [address] [place] | | | | | chest CT | Becca Segura, | [place], | | | | | Procedures | [address] | [place] [address] | | | | | CT Chest wo | [address] | Phone: | | | | | Contrast | [place], | [phone] | | | | | | [place] [address] | Fax: | | | | | | | [phone] | +--------+--------+ + + + + Encounter Details +--------+ + + + + | Date | Type | Department | Care Team | Description | +--------+ + + + + | 01/26/ | Hospital | [facility] | [place], | Abnormal chest CT | | 2012 | Encounter | MED CTR XRAY [address] | Becca Segura MD | | | | | [place] | | | | | | [place] [address] | | | | | | [phone] | | | +--------+ + + + [...] | | | | | [place] [address] | | | | | | [phone] | | | | | | | [...] Performed At | + + + | [facility] | [facility] | | Department [address] [facility] [place] | [facility] | | [ rep [address]] [ rep [facility] | | st zip] Signed | - IMAGING | | | | | Patient Name: DIEGO LUCAS Physician: | | | E. : 1935 Age: 77 Sex: M Unit #: [id number] | | | Exam Date: 01/26/13 Location: [facility] | | | Report #: [id number] Page: | | | %(RAD)RES..mtdd.print.filter("pg") of %(RAD) | | | RES..mtdd.print.filter("tpg") | | | | | | Accession Number: [id number] | | | CT CHEST WITHOUT CONTRAST [...] Transcribed Date/Time: | | | 01/26/2013 15:57 Porcelain Slusher: | | | <<Signature on File>> | | | Froylan | | | Olivia Rodriguez [id number] <Electronically signed by Froylan Baker | | | Michael DONG> Froylan Rodriguez MD 01/26/13 1544 | | | Porcelain Slusher: BIXI Ceyryfvbkamer14/05/13 1557 | | | Becca Castro MD | | + + + + + + + + | Performing | Address | City/State/Zipcode | Phone Number | | Organization | | | | + + + + + | [facility] | [address] | [place], [place] | [phone] | | [facility] | | [address] | | | - IMAGING | | | | + + + + + documented in this encounter Visit Diagnoses + + | Diagnosis | + + | Abnormal chest CT Nonspecific (abnormal) findings on radiological and other | | examination of other intrathoracic organs | + + documented in this encounter
--- OUTSIDE RECORDS SUMMARY | ~2019-10-20 | XMS | Encounter Summary ---
Demographics + + + | Address | [address] | | | [place] [address] | + + + | Home Phone | | + + + | Preferred Language | Unknown | + + + | Marital Status | | + + + | Holiness Affiliation | PRE | + + + | Race | White | + + + | Ethnic Group | Not or | + + + Author + + + | Author | [facility] | + + + | Organization | [facility] | + + + | Address | Unknown | + + + | Phone | Unavailable | + + + Support + + +---------+ + | Name | Relationship | Address | Phone | + + +---------+ + | Andrez Lucas | ECON | Unknown | Unavailable | + + +---------+ + Care Team Providers + +------+ + | Care Striker Off Name | Role | Phone | + [...] OMI | | 2004 | | [facility] | [phone] | | | | Transcribed | [place] | | | | | | [address] | | | +--------+ + + + [...] + + documented as of this encounter Procedure Notes Other, Faculty - 06/09/2004 10:38 AM PDTAssociated Order(s): [id number] ELECTROCARD[facility]APHIC REPORT [address] [place] [address] PROVIDER: Marc Stovall DO DATE AND TIME: June 05, 2004 @ 1547 hours RHYTHM: Sinus. ATRIAL RATE: 67 VENTRICULAR RATE: 67 OR INTERVAL: 184 QRS: 88 QTC: 406 QRS AXIS: 11 INTERPRETATION: Normal sinus rhythm. There are prominent T waves with some peaking noted in leads V2 through V4. Suggest clinical correlation of possible ischemia or hyperkalemia. There are no old tracings for comparison. This may be a normal tracing in a thin-walled man. JOB #[id number] 06/08/04 06/09/04 MWS Electronically Signed MD SHAYY Schaffer,OLGA Domingo [id number] ADMIT DATE: documented in t his encounter Plan of Treatment Not on filedocumented [...] | Other, Faculty - 06/09/2004 10:38 AM [facility] | | ELECTROCARDIOGRAPHIC [id number] [facility] [place] [id number]: | | TALIA [place] AND TIME: June 05, 2004 @ 1547 [...] normal tracing in a | | thin-walledman.JOB #[id number]//[id number] | | Electronically Signed | | | | LARRY Schaffer REX [id number] DATE: | | | |ATRIAL RATE: 67 | |VENTRICULAR RATE: 67 | | | |OR INTERVAL: 184 QRS: 88 QTC: 406 QRS [...] |man. | | | | | |JOB #[id number] | |06/08/04 | |06/09/04 | |MWS Electronically Signed | | | | Rylee [...] | | | | |OLGA LUCAS | |[id number] | |[id number] | |ADMIT DATE: | + + documented in this encounter Visit Diagnoses Not on filedocumented in this encounter"
--- OUTSIDE RECORDS SUMMARY | ~2019-10-20 | XMS | Encounter Summary ---
Demographics + + + | Address | [address] | | | [place] [address] | + + + | Home Phone | | + + + | Preferred Language | Unknown | + + + | Marital Status | | + + + | Muslim Affiliation | PRE | + + + | Race | White | + + + | Ethnic Group | Not or | + + + Author + + + | Author | [facility] | + + + | Organization | [facility] | + + + | Address | Unknown | + + + | Phone | Unavailable | + + + Support + + +---------+ + | Name | Relationship | Address | Phone | + + +---------+ + | Jayce Lucas | ECON | Unknown | Unavailable | + + +---------+ + Care Team Providers + +------+ + | Care Log Preparer Name | Role | Phone | [...] + + | 06/09/ | Hospital | [facility] [address] | [place], | | | 2013 - | Encounter | [facility] Mailcode: | MD Gabrielle Garces | | | | | [id number] | [address] | | | 06/14/ | | [place], | [place], [place] | | | 2012 | | [place] [address] | [id number] | | | | | [phone] | [phone] | | | | | | | | | | | | Fredrick Cherry, | | | | | | MD Gabrielle Garces | | | | | | [address] | | | | | | [place], [place] | | | | | | [address] | | | | | | [phone] | | | | | | | [...] evaluated by the respiratory therapy team w whitney recommended him for outpatient oxygen therapy. I explained to him face to face that he wa s to wear oxygen continuously at 2.5 liters until further notice. Medications: Current Discharge Medication List START taking these medications Details oxymetazoline 0.05 % Nasal Aerosol, Big Sky Instill 2 Sprays into each nostril every six hour s as needed (Epistaxis). Use for only 3 days. sodium chloride 0.65 % Nasal Aerosol, [place] Instill 2 Sprays in nose every two [...] concerning symptoms, call Dr. Cherry's clinic at [phone]. If you fee l you are having [...] packing removal at 2:30 pm. [facility] [phone] for questions. Destination: Destination: Sn[facility] Facility Condition on Discharge Good Vitals on [...] thi s encounter Discharge Instructions Instructions Cira Avitia RN - 06/14/2012Patient Education Materials: see avs Additional Instructions: none Discharge Nurse: CIRA AVITIA RN Date: 06/14/2012 Discharge Time: 12:01 PM [...] | | | 13 | | | Big Sky | every six hours as | | [...] | | 13 | | | Aerosol, Big [place] | while awake. | | | | [...] AM PDT PATIENT NAME: Diego Lucas MR#: [id number] : 1935 PRIMARY CARE PROVIDER: Parviz Brar DO BP 92/65 | Pulse 98 | [...] though he uses supplemental oxygen at his retirement [facility]. ASSESSMENT: Mr. Lucas remains hospitalized for [...] pack removal on Wednesday. Fredrick Cherry M.D. Research Intern Laryngology and Head & Neck Surgery [facility] DEPARTMENT: ENT LARYNGOLOGY [place] - [id number] Place of Service: [id number] - Date of Service: 06/14/2012 CSN: [id number] Suggested Modifiers: GC - Resident Involved Suggested Level of Care: 66167 - Discharge Day mgmt up to 30 min Fredrick Villasenor MD - 06/13/2012 11:21 PM PDT PATIENT NAME: Diego Lucas [facility] MR#: [id number] : 1935 PRIMARY CARE PROVIDER: Parviz Brar DO BP 139/69 | Pulse 106 | Temp 36.9 C (98.4 F) | RR 15 | Ht 1.829 m (6') | Wt 68.04 kg (1 50 lb) | SpO2 93% | BMI 20.34 kg/(m^2) I have reviewed the resident's note for this day's hospitalization. I have examined Mo rehouse. I note: Mr. Lucas feels "OK." [...] if still not bleeding. Fredrick Cherry M.D. Research Intern Laryngology and Head & Neck Surgery [facility] DEPARTMENT: ENT LARYNGOLOGY PPV - [id number] Place of Service: [id number] - Date of Service: 06/13/2012 CSN: [id number] Suggested Modifiers: GC - Resident Involved Suggested Level of Care: 73663 - Subsequent, Prob Foc/low complex 15 min aRush kruger MD - 06/13/2012 12:16 PM PDT [facility] Department of Surgery ENT Head & Neck [...] -Recheck crit tomorrow am Dispo: Back to [facility] tomorrow. Dr. Fredrick Cherry MD is the attending of record for this patient encounter. RUSH MOSS MD PGY-1, Plastic and Reconstructive Surgery pgr [phone] Diagnoses: 784.7 Epistaxis 837835 Anemia Meds: amLODIPine (aka NORVASC) tablet 5 [...] (aka AFRIN) 0.05 % nasal spray 2 Big Sky, 2 Big [place], both nostrils, Q6H polyethylene glycol (aka MIRALAX) powder 17 g, 17 g, Oral, DAILY promethazine (aka PHENERGAN) injection 12.5 mg, 12.5 mg, Intravenous, Q6H PRN sodium chloride (aka OCEAN) 0.65 % nasal spray 2 [place], 2 Big [place], Nasal, Q2H WA tamsulosin (aka FLOMAX) capsule 0.4 mg, 0.4 mg, Oral, QPM temazepam (aka RESTORIL) capsule 15 mg, 15 mg, Oral, HS PRN Fredrick Villasenor MD - 06/12/2012 9:17 PM PDT PATIENT NAME: Diego Lucas [facility] MR#: [id number] : 1935 PRIMARY CARE PROVIDER: Parviz Brar [...] equal. Vision is grossly intact on the ne ght. There is no red desaturation. The [...] Observe for resumed bleeding. Fredrick Cherry M.D. Research Intern Laryngology and Head & Neck Surgery [facility] DEPARTMENT: ENT LARYNGOLOGY PPV - [id number] Place of Service: [id number] - Date of Service: 06/12/2012 CSN: [id number] Suggested Modifiers: GC - Resident Involved Suggested Level of Care: 66510 - Subsequent, Prob Foc/low complex 15 min Darius Bello MD - 06/12/2012 10:20 AM PDT Otolaryngology [...] 5 mg, 5 mg, Oral, QAM, Oc Calix MD, 5 mg at 06/12/12 1 003 ascorbic acid tablet 250 mg, 250 mg, Oral, BID, Oc Calix MD, 250 mg at 06/12/12 1003 ceFAZolin (aka ANCEF) IV 1 g, 1 g, Intravenous, Q8H, Mckenzie Freed MD, 1 g at 06/12/12 0919 cetirizine (aka ZYRTEC) tablet 5 mg, 5 mg, Oral, BID, Oc Calix MD, 5 mg at 06/12/12 10 02 docusate sodium (aka COLACE) capsule 100 mg, 100 mg, Oral, BID PRN, Oc Calix MD fentaNYL citrate (PF) (aka SUBLIMAZE) injection 25-50 mcg, 25-50 mcg, Intravenous, Q2H PRN, Darius Barriga MD, 25 mcg at 06/11/12 0938 ferrous sulfate tablet 325 mg total salt, 325 mg total salt, Oral, DAILY, Oc Calix MD, 325 mg total salt at 06/12/12 1003 fluticasone (aka FLOVENT) 220 mcg/actuation inhaler 1 Puff, 1 Puff, Inhalation, BID, Fredrick Cherry MD, 1 Puff at 06/12/12 1014 ipratropium (aka ATROVENT) 17 mcg/actuation inhaler 2 Puff, 2 Puff, Inhalation, QID PRN, Crystal Cherry MD loratadine (aka CLARITIN) tablet 10 mg, 10 mg, Oral, DAILY, Oc Calix MD, 10 mg at 05/24 03/06 1003 magnesium hydroxide (aka MILK OF MAGNESIA) suspension 30 mL, 30 mL, Oral, DAILY PRN, Oc Calix MD omeprazole (aka PRILOSEC) capsule 20 mg, 20 mg, Oral, QAM, Oc Calix MD, 20 mg at 06/12 1003 ondansetron (aka ZOFRAN) injection 4 mg, 4 mg, Intravenous, Q12H PRN, Oc Calix MD, 4 m g at 06/11/12 1005 oxyCODONE (immediate release) (aka ROXICODONE) tablet 5 mg, 5 mg, Oral, Q6H PRN, Oc osorio MD, 5 mg at 06/12/12 0452 oxymetazoline (aka AFRIN) 0.05 % nasal spray 2 Big [place], 2 Big [place], both nostrils, Q6H, Oc Calix MD, 2 Big [place] at 06/11/12 0218 polyethylene glycol (aka MIRALAX) powder 17 g, 17 g, Oral, DAILY, Oc Calix MD, 17 g at 06/10/12 0837 promethazine (aka PHENERGAN) injection 12.5 mg, 12.5 mg, Intravenous, Q6H PRN, Oc Calix MD, 12.5 mg at 06/10/12 2210 sodium chloride (aka OCEAN) 0.65 % nasal spray 2 Big Sky, 2 Big [place], Nasal, Q2H WA, Mckenzie Freed MD, 2 Big Sky at 06/12/12 0127 tamsulosin (aka FLOMAX) capsule 0.4 mg, 0.4 mg, Oral, QPM, Oc Calix MD, 0.4 mg at 05/24 2221 temazepam (aka RESTORIL) capsule 15 mg, 15 mg, Oral, HS PRN, Oc Calix MD, 15 mg at 0234 Labs: Chemistries: [...] Hospital Day:3 Attending Physician: Fredrick Cherry MD Mckenzie Valentine MD - 06/11/2012 7:25 PM PDTINPATIENT BRIEF OPERATIVE NOTE Procedure Date: 06/11/2012 Author: MCKENZIE FREED MD Attending Physician: Fredrick Cherry MD Assistants: Jose Angel Easton MD, Janeth Casiano MD, Mckenzie Freed MD Prior to the beginning of the [...] sphenopalatine arteries identified and c lipped/ligated MCKENZIE FREED MD raft, Jose Angel Knox MD - 0 06/11/2012 11:10 AM PDTOTO HNS Pt with refractory epistaxis. Had bilateral VANIA ligation yesterday. Recurrent bleeding th is am. Was not bleeding at time of initial exam, but paged to bedside for bleeding at appro ximately 0947. Blood pressure 136/91, pulse 118, temperature 36.7 C (98.1 F), resp. rate 18, SpO2 99.0 0%. Awake. Distressed. Vargas in right nare with merocel in vestibule. Merocel in left nare. Oropharynx with clot. No active bleeding. Left merocel removed. Nasal passage clear. Right merocel removed. Vargas inflated to 25 mL. ~ 2.5 yards of 1/2 inch NuGauze packed around vargas balloon. Oropharynx examined. Some residual coagulum but no active bleeding. Assessment/Plan: 1. Transfusing currently for Hgb 6.8 with tachycardia (was 10.7 on admission) 2. NPO. 3. Has tolerated vargas overnight, so do not plan to transfer level of care currently. Con tinuous pulse-oximetry. 4. Consented for endoscopic sphenopalatine ligation and jimenez incision with ligation of an terior and posterior ethmoids. To OR this afternoon. Ancef while packing in place. JOSE ANGEL EASTON MD Darius Bello M D - 06/11/2012 10:20 AM PDT Otolaryngology / Head and Neck Progress Note Hospital Day:2 Author; DARIUS BARRIGA MD Attending Physician: Fredrick Cherry MD Interval History: He underwent embolization of bilateraly internal maxillary arteries y[address] rd. He has continued to bleed from the nose overnight and this morning. Overnight a vargas catheter was placed in his nasopharynx and [...] right side of nose with 20 Fr vargas clamped in place; clots in orophar ynx Resp: comfortable, unlabored, no stridor Medications: Current facility-administered medications:acetaminophen (aka TYLENOL) tablet 650 mg, 650 mg , Oral, PRN, Darius Barriga MD amLODIPine (aka NORVASC) tablet 5 mg, 5 mg, Oral, QAM, Oc Calix MD, 5 mg at 06/10/12 0 837 ascorbic acid tablet 250 mg, 250 mg, Oral, BID, Oc Calix MD, 250 mg at 06/10/12 2233 ceFAZolin (aka ANCEF) IV 1 g, 1 g, Intravenous, Q8H, Mckenzie Freed MD cetirizine (aka ZYRTEC) tablet 5 mg, 5 mg, Oral, BID, Oc Calix MD, 5 mg at 06/10/12 22 33 diphenhydrAMINE (aka BENADRYL) capsule 50 mg, 50 mg, Oral, PRN, Darius Barriga MD docusate sodium (aka COLACE) capsule 100 mg, 100 mg, Oral, BID PRN, Oc Calix MD fentaNYL citrate (PF) (aka SUBLIMAZE) injection 25-50 mcg, 25-50 mcg, Intravenous, Q2H PRN, Darius Barriga MD, 25 mcg at 06/11/12 0938 ferrous sulfate tablet 325 mg total salt, 325 mg total salt, Oral, DAILY, Oc Calix MD, 325 mg total salt at 06/10/12 [...] 10 mg, 10 mg, Oral, DAILY, Oc Calix MD, 10 mg at 05/23 11/04 0837 magnesium hydroxide (aka MILK OF MAGNESIA) suspension 30 mL, 30 mL, Oral, DAILY PRN, Oc Calix MD morphine injection 2 mg, 2 mg, Intravenous, ONCE, Mckenzie Freed MD omeprazole (aka PRILOSEC) capsule 20 mg, 20 mg, Oral, QAM, Oc Calix MD, 20 mg at 06/10 0837 ondansetron (aka ZOFRAN) injection 4 mg, 4 mg, Intravenous, Q12H PRN, Oc Calix MD, 4 m g at 06/11/12 1005 oxyCODONE (immediate release) (aka ROXICODONE) tablet 5 mg, 5 mg, Oral, Q6H PRN, Oc osorio MD, 5 mg at 06/10/12 1804 oxymetazoline (aka AFRIN) 0.05 % nasal spray 2 [place], 2 [place], both nostrils, Q6H, Oc Calix MD, 2 [place] at 06/11/12 0218 polyethylene glycol (aka MIRALAX) powder 17 g, 17 g, Oral, DAILY, Oc Calix MD, 17 g at 06/10/12 0837 promethazine (aka PHENERGAN) injection 12.5 mg, 12.5 mg, Intravenous, Q6H PRN, Oc Calix MD, 12.5 mg at 06/10/12 2210 sodium chloride (aka OCEAN) 0.65 % nasal spray 2 [place], 2 Big [place], Nasal, Q2H WA, Mckenzie Freed MD, 2 Big [place] at 06/10/12 2234 tamsulosin (aka FLOMAX) capsule 0.4 mg, 0.4 mg, Oral, QPM, Oc Calix MD, 0.4 mg at 05/23 11/04 223 temazepam (aka RESTORIL) capsule 15 mg, 15 mg, Oral, HS PRN, Oc Calix MD, 15 mg at 0234 Labs: Chemistries: [...] Note Date: 06/10/2012 Hospital Day:1 Author; OC CALIX MD Attending Physician: Fredrick Cherry MD Interval Hx: Desaturations to mild 80s overnight - patient denied dyspnea and was sleeping comfortably. Mild drainage anteriorly despite bilateral packing per nursing overnight Patient denies current bleeding into oropharynx or out of nose. Medications: Current facility-administered medications:amLODIPine (aka NORVASC) tablet 5 mg, 5 mg, Oral, QAM, Oc Calix MD ascorbic acid tablet 250 mg, 250 mg, Oral, BID, Oc Calix MD cephALEXin (aka KEFLEX) capsule 500 mg, 500 mg, Oral, Q6H, Oc Calix MD, 500 mg at 05/23 11/04 0404 cetirizine (aka ZYRTEC) tablet 5 mg, 5 mg, Oral, BID, Oc Calix MD docusate sodium (aka COLACE) capsule 100 mg, 100 mg, Oral, BID PRN, Oc Calix MD ferrous sulfate tablet 325 mg total salt, 325 mg total salt, Oral, DAILY, Oc Calix MD fluticasone (aka FLOVENT) 220 mcg/actuation inhaler 1 Puff, 1 Puff, Inhalation, BID, Fredrick Cherry MD, 1 Puff at 06/10/12 0224 ipratropium (aka ATROVENT) 17 mcg/actuation inhaler 2 Puff, 2 Puff, Inhalation, QID PRN, Crystal Cherry MD lactated ringers IV, 100 mL/hr, Intravenous, CONTINUOUS, Oc Calix MD, Last Rate: 100 m L/hr at 06/10/12 0213, 100 mL/hr at 06/10/12 0213 loratadine (aka CLARITIN) tablet 10 mg, 10 mg, Oral, DAILY, Oc Calix MD magnesium hydroxide (aka MILK OF MAGNESIA) suspension 30 mL, 30 mL, Oral, DAILY PRN, Oc Calix MD omeprazole (aka PRILOSEC) capsule 20 mg, 20 mg, Oral, QAM, Oc Calix MD ondansetron (aka ZOFRAN) injection 4 mg, 4 mg, Intravenous, Q12H PRN, Oc Calix MD oxyCODONE (immediate release) (aka ROXICODONE) tablet 5 mg, 5 mg, Oral, Q6H PRN, Oc osorio MD, 5 mg at 06/10/12 0217 oxymetazoline (aka AFRIN) 0.05 % nasal spray 2 [place], 2 [place], both nostrils, Q6H, Oc Calix MD, 2 [place] at 06/10/12 0215 polyethylene glycol (aka MIRALAX) powder 17 g, 17 g, Oral, DAILY, Oc Calix MD promethazine (aka PHENERGAN) injection 12.5 mg, 12.5 mg, Intravenous, Q6H PRN, Oc Calix MD tamsulosin (aka FLOMAX) capsule 0.4 mg, 0.4 mg, Oral, QPM, Oc Calix MD temazepam (aka RESTORIL) capsule 15 mg, 15 mg, Oral, HS PRN, Oc Calix MD, 15 mg at 0234 Last Vitals: [...] 06/10/12 0536 Last data filed at 06/10/12 0236 Gross per 24 hour Intake 10 ml Output 225 ml Net -215 ml Physical Exam: Awake, alert, NAD Bilateral merocels in place; right merocel is saturated with blood, left is clean. No activ e bleeding. OP clear. Labs: CBC with diff last 72 hours (or 3 results) Recent Labs Basename 06/10/12 0648 04/18/13 2055 04/17/13 0627 WBC 10.9 -- 9.1 HB 8.0* 8.8* 8.3* HCT 24.8* 26* 25.8* PLT 380 -- -- NEUTROPERC -- -- 78* BANDPCT -- -- -- LYMPHPERC -- -- 12* MONOPERC -- -- 6 BASOPERC -- -- 0 EOSPERC -- -- 3 Chemistries: Last 72 Hours (or 3 results): Recent Labs Basename 06/09/12205406/07/12 2156 NA 136 138 K 4.2 4.4 CL [...] plan to embolize right side noon - zofran, phenergan for nausea OC CALIX MD Otolaryngology Head and Neck Surgery PGY2 pager [phone] documented in this enco unter H&P Notes Jose Meade MD - 06/10/2012 11:53 AM PDTFormatting of this note might be different f rom the original. INTERVENTIONAL NEURORADIOLOGY PRE-PROCEDURE HISTORY AND PHYSICAL PLANNED PROCEDURE: Angiogram and embolization for right epistaxis. HISTORY OF PRESENT ILLNESS: Recurrent right epistaxis has had bilateral merocels. Angiogram and embolization requested . Past Medical History Diagnosis Date Pneumonia COPD Gastroesophageal reflux Benign hypertrophy of prostate Unspecified essential hypertension Past Surgical History Procedure Date Back surgery Allergies Allergen Reactions Paper First Aid Tape (Adhesive Tape) Hives and Rash Current Medication List Name Sig AMLODIPINE 5 MG TABLET Take 5 mg by mouth once daily in the morning. Indications: HYPERTENS ION ASCORBIC ACID 250 MG TABLET Take 250 mg by mouth two times daily. ASPIRIN 81 MG CHEWABLE TABLET Take 81 mg by mouth once daily. CEPHALEXIN 500 MG CAPSULE Take 1 Cap by mouth every six hours for 6 days. Indications: Infe ction prevention while nasal packing is in place CETIRIZINE 5 MG TABLET Take 5 mg by mouth two times daily. DOCUSATE SODIUM 100 MG CAPSULE Take 100 mg by mouth twice daily as needed. FERROUS SULFATE 325 MG (65 MG IRON) TABLET Take 325 mg by mouth two times daily. FLUTICASONE 220 MCG/ACTUATION AEROSOL INHALER Inhale 1 Puff two times daily. IPRATROPIUM BROMIDE 17 MCG/ACTUATION HFA AEROSOL INHALER Inhale 2 Puffs four times daily as needed. LORATADINE 10 MG TABLET Take 10 mg by mouth once daily. MAGNESIUM HYDROXIDE 400 MG/5 ML ORAL SUSP Take 30 mL by mouth once daily as needed. OMEPRAZOLE 20 MG CAPSULE,DELAYED RELEASE Take 20 mg by mouth once daily in the morning. Ind ications: GASTROESOPHAGEAL REFLUX OXYCODONE 5 MG TABLET Take 1 Tab by mouth every six hours as needed for severe pain. POLYETHYLENE GLYCOL 3350 17 GRAM/DOSE ORAL POWDER Take 17 g by mouth once daily. TAMSULOSIN ER 0.4 MG CAPSULE,EXTENDED RELEASE 24 HR Take 0.4 mg by mouth once daily in the evening. Indications: BENIGN PROSTATIC HYPERTROPHY TEMAZEPAM 15 MG CAPSULE Take 15 mg by mouth once daily at bedtime as needed. TAKING COUMADIN OR GLUCOPHAGE? No TAKING ASPIRIN AND PLAVIX ADEQUATE FOR INTERVENTION? No Lab Results Component Value Date NA 136 06/09/2012 K 4.2 06/09/2012 CL 100.0 06/09/2012 BUN 10 06/09/2012 CR 0.8 06/09/2012 GLU 96 06/09/2012 Lab Results Component Value Date WBC 10.9 06/10/2012 HCT 24.8* 06/10/2012 PLT 380 06/10/2012 No components found with this basename: inr FOCUSED PHYSICAL EXAMINATION: Alert and oriented, normal mentation, normal speech, no drift, normal fine finger movements , visual mckeon full to counting fingers in all quadrants using either eye. Mild left lid l ag. Full strength bilateral upper and lower extremities. ASA SCORE: 2 1. Otherwise Healthy Person 2. Mild systemic disturbance due to general disease or surgical illness 3. Moderate systemic disturbance due to general disease or surgical illness 4. Severe systemic illness; incapacitating threat to life 5. Moribund; not expected to survive >24 hours with or without surgery PLANNED ACCESS POINT: RIGHT COMMON FEMORAL ARTERY CURRENT LEVEL OF PAIN: NONE PLANNED LEVEL OF SEDATION: MODERATE PRESENT P.O. STATUS: CLEAR LIQUID DIET The risk of angiography and embolization were explained to patient or patient's surrogate i n detail, including risks, benefits, alternatives, and indications. All questions were answe red in detail. The patient or the patient's surrogate directs us to proceed. Consent was sig belinda and placed in chart. documented in this encounter Procedure Notes Other, Faculty - 06/16/2012 9:17 AM PDTAssociated Order(s): PROCEDURE NOTEElectronically s igned by Faculty Other at 06/16/2012 9:17 AM PDTOther, Faculty - 06/16/2012 9:17 AM PDTAss ociated Order(s): LAB REPORTS P Janeth Christianson MD - 06/12/2012 11:40 PM PDTAssociated Order(s): OPERATION RECORDDate: 06/11/2012 Attending Surgeon: Fredrick Cherry M.D. Shop Repairer(s): Ray Cruz M.D. Mckenzie Freed MD Preoperative Diagnosis(es): 1. Uncontrolled right-sided epistaxis. 2. Status post bilateral internal maxillary artery embolization with persistent epistaxi s. 3. Acute blood loss anemia. Postoperative Diagnosis(es): 1. Uncontrolled right-sided epistaxis. 2. Status post bilateral internal maxillary artery embolization with persistent epistaxi s. 3. Acute blood loss anemia. 4. Acute maxillary sinusitis associated with epistaxis and multiple packings Procedures Performed: 1. Right external approach for anterior and posterior ethmoidal artery ligation. 2. Nasal endoscopy for control of right-sided nasal hemorrhage. 3. Right transnasal endoscopic sphenopalatine artery ligation. 4. Right maxillary antrotomy and irrigation. Anesthesia: General. Blood Loss: 25 cc. Complications: None apparent. Specimens: None. Drains: Quarter-inch Jerome in right medial orbital incision. Indications: Mr. Lucas is a 76-year-old gentleman with a week long history of recurrent right-sided epistaxis which we were unable to control despite multiple attempts at anterior and posterior packing, interventional radiology embolization, and blood transfusions. A PARQ was held, and consent was obtained for the above procedures. Findings: Right anterior and posterior ethmoid arteries were found without difficult at expected locations and clipped and cauterized. The right sphenopalatine artery identified, clipped and cauterized. Procedure In Detail: The patient was properly identified in the preoperative holding bay, taken to the operating room, placed on the table in supine position. Anesthesia instituted general endotracheal anesthesia. The table was then turned. Our Jimenez incision on the right was marked and infiltrated with 1% lidocaine with 1:100,000 epinephrine. We left the posterior packing on the right side during this portion of procedure. He was then prepped and draped in sterile fashion; a pause was held per protocol. An incision was then made sharply using a 15 blade and deepened with electrocautery until the nasofrontal suture was visualized. We came through the periosteum and elevated the periosteum along the medial and superior orbit until we identified the lacrimal crest. Elevating superior to this we then identified the anterior ethmoidal artery approximately 22 mm posterior to the lacrimal crest. We freed up the region surrounding this and then multiple hemoclips were placed. We then came through the anterior ethmoid using bipolar electrocautery. We then identified the posterior ethmoidal artery and hemoclips were placed and this was also cauterized judiciously using bipolar electrocautery. At this point we then irrigated and placed a small amount at of Avitene along the ethmoid bone. A quarter-inch Jerome was then placed and the wound was closed in layers using interrupted 4-0 Vicryl deep dermals and 5-0 fast-absorbing gut for the skin. We then turned to the nasal portion. The Vargas catheter that had been placed in his right nasal cavity was then taken down and removed as well as the remainder of his gauze packing. When I examined the right nasal cavity it was noted to be significantly abraded mucosa from prior attempts at packing. 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 We medialized the right middle turbinate and placed multiple pledgets with epinephrine 1:10,000 in and the right middle meatus, and sphenoethmoidal recess. Using the 0 degree endoscope, we then identified the uncinate process. He was noted to have some mucosanguineous drainage from its location. We identified the root of the middle turbinate, in the expected location of the sphenopalatine artery. We did note some pulsations just anterior to this. Using a Fredy elevator we then made an incision through the mucosa and then elevated the mucosa from anterior to posterior until we exposed the rick ethmoidalis and the right sphenopalatine artery. Multiple clips were then placed on this and then we used a suction cautery to cauterize the sphenopalatine artery stump. This led to good hemostasis. We placed additional pledgets in there and copiously irrigated the nasal cavity. We then performed a maxillary antrostomy by placing an 18-gauge needle in the inferior meatus and then passing this through the medial wall of the maxillary sinus, into the maxillary sinus and copiously irrigating. We confirmed adequate irrigation with endoscopic guidance by observing the irrigant coming out of the inferior portion of the uncinate process. We then again irrigated from bilateral nasal cavities. We then placed packing of Avitene wrapped in Surgicel, multiple small packs, in the middle meatus and the sphenoethmoidal recess. Two Merocel packs were then placed in the right nasal cavity coated in bacitracin, and then these were expanded. We then passed an orogastric tube and suctioned out his stomach contents. At this point he was returned to Anesthesia for awakening. A dressing of bacitracin and a small gauze was placed over the Shea drain in the right medial Jimenez incision. He was extubated in the operating room, taken recovery room in stable condition. There were no apparent complications. Dr. Cherry was present for the entirety of the procedure. Janeth Casiano M.D. Fredrick Cherry M.D. LALA / NEFTALY [id number] / [id number] / [id number] / ozo Minor draper MD - 06/10/2012 2:13 PM PDTAssociated Order(s): PROCEDURE NOTEBrief INR p ost-procedure note Surgeons: Leigha Webber Procedure: Dx Cerebral Angiogram with embolization of b/l internal maxillary arteries Findings: successful embolization of bilateral internal maxillary arteries with coils and 3 50-500 particles Complications: none Closure: perclose, flat x 2 hours documented in th is encounter Consult Notes Fredrick Cherry MD - 06/10/2012 6:12 PM PDT PATIENT NAME: Diego Lucas [facility] MR#: [id number] : 1935 REFERRING PROVIDER: Manny Pena MD PRIMARY CARE PROVIDER: Parviz Brar DO I have reviewed the resident's note for this consultation. I have examined Mr. Lucas. I note: Mr. Lucas known to the Otolaryngology service with multiple visits for epistax is over the past week. Continued anterior and posterior bleeding from the right despite steven ateral anterior-posterior packing. He is not bleeding now, but has clot in the oropharynx a nd just had embolization of the bilateral maxillary arteries, but not the facial system. Hi s CBC is low, but acceptable. NASAL ENDOSCOPY: Following administration of Afrin and pontocaine, the nasal cavities were carefully inspected with a 0-degree telescope. His septum is somewhat serpiginous, but not obstructive. The anterior nasal mucosa is macerated, but not bleeding bilaterally. The ri ght side was inspected first. The right inferior and middle turbinates are macerated, but n ot badly and are not bleeding. There is mild clot in the middle meatus. The uncinate is in tact. The right frontoethmoid recess has mild clot, but is not bleeding. The sphenoethmoid recess also has clot, but is not bleeding. The right sphenoid sinus ostium is not visualiz ed. The nasopharynx has moderate clot, but no active blood. The bilateral eustachian tube orifices were intact. The left side was inspected in similar fashion. The left inferior an d middle turbinates are intact, but less severely macerated. The uncinate is intact. The m iddle meatus has blood clot. The right frontoethmoid recess has clot. The sphenoethmoid re cess is not bleeding, but has clot. The right sphenoid sinus ostium is not visualized. ASSESSMENT: Mr. Lucas appears to have anterior and posterior epistaxis on the right wi th multiple attempts at packing. The sphenopalatine and ethmoid arteries remain possible bl eeding sites. Should he bleed further, we would need to attempt operative treatment with ri t anterior and posterior ethmoid artery ligation, transendoscopic sphenopalatine artery li gation and, possibly, anterior and posterior packing bilaterally. We discussed this at [facility], as well as the risks to vision, scarring around the eye and continued bleeding. He agre ed to proceed should bleeding resume. PLAN: I agree with the resident's plan with the following modifications: Will observe car efully with Afrin and nasal saline irrigations. Fredrick Cherry M.D. Research Intern Laryngology and Head & Neck Surgery [facility] DEPARTMENT: ENT LARYNGOLOGY PPV - [phone] Place of Service: [id number] - Date of Service: 06/10/12 CSN: [id number] Suggested Modifiers: GC - Resident Involved Suggested Level of Care: 25680 - Initial, Comp; Mod complex 50 min; Nasal Endoscopy, bilat eral Blane, Oc Domingo MD - 06/09/2012 8:42 PM PDT Otolaryngology/Head and Neck Surgery Epistaxis Patient Consult Attending: Fredrick Cherry MD Referring MD: ED CC: right epistaxis HPI: Diego Lucas is a 76 y.o. male who has been seen by our service three times in the ri st 5 days for recurrent epistaxis. He was initially seen on 06/06 for right epistaxis - he wa s packed with floseal and discharged. He had another episode and was brought in early this a m. There was no source identified, and nasopore was placed on the same side. He was discharg ed this am, however, he started bleeding shortly after arriving at the facility. He had 2 [place] bsequent bleeds, and was brought back to [facility] for further management. Hct has dropped from 3 4.1 to 26 since the am of 06/06. He feels somewhat lightheaded. He was seen again on 06/07 and right merocel was placed at that time. Since then he has been bleeding intermittently aroun d the right merocel. He was discharged home yesterday and states that he started bleeding at 1am and 3am (minor bleeds that stopped with pressure) and then more profusely starting at 1 0am in the morning which did not stop and ran down the back of his throat. He has not been t aking his aspirin since episodes of epistaxis. Has pain due to coughing while recovering fro m pneumonia. Has been unable to keep down his oxycodone due to nausea/emesis. Current pain . Patient states all of his nose bleeds have been from the right side. He takes medicatio n for hypertension and currently normotensive. He has had his INR checked on previous visits and have been 1.28, 1.24. No evidence of thrombocytopenia. No history of bleeding disorder. ROS: denies fevers, chills, visual changes, headaches, vertigo, nausea, shortness of kimberly th, chest pain. Has had 15-20lb weight loss over the last 3 months. + fatigue Denies otalgia, odynophagia, dysphagia, hoarseness, nasal obstruction. Currently is being treated for prostate cancer Previous 10 pipe/day smoker x 57 years. Other comorbidities: COPD, HTN, GERD Past Medical History Diagnosis Date Pneumonia COPD Gastroesophageal reflux Benign hypertrophy of prostate Unspecified essential hypertension Past Surgical History Procedure Date Back surgery Current facility-administered medications:NaCl 0.9 % IV, 500 mL, Intravenous, ONCE, Tariq Sexton MD,PhD ondansetron (aka ZOFRAN) injection 4 mg, 4 mg, Intravenous, ONCE, Tariq Sexton MD,PhD Current outpatient prescriptions:amLODIPine 5 mg Oral tablet, Take 5 mg by mouth once daily in the morning. Indications: HYPERTENSION, Disp: , Rfl: ascorbic acid 250 mg Oral tablet, Take 250 mg by mouth two times daily., Disp: , Rfl: aspirin chewable 81 mg Oral tablet, chewable, Take 81 mg by mouth once daily., Disp: , Rfl: cephALEXin 500 mg Oral capsule, Take 1 Cap by mouth every six hours for 6 days. Indications : Infection prevention while nasal packing is in place, Disp: 24 Cap, Rfl: 0 cetirizine 5 mg Oral tablet, Take 5 [...] once daily as needed., Disp: , Rfl: omeprazole 20 mg Oral capsule,delayed release(DR/EC), Take 20 mg by mouth once daily in the morning. Indications: GASTROESOPHAGEAL REFLUX, Disp: , Rfl: oxyCODONE, immediate release, 5 mg Oral tablet, Take 1 Tab by mouth every six hours as need ed for severe pain., Disp: 10 Tab, Rfl: 0 polyethylene glycol 17 gram/dose Oral Powder, Take [...] No narrative on file PHYSICAL EXAM: BP 121/69, Pulse 99, Temperature 36.5 C (97.7 F), RR 18, SpO2 92%. Alert, NAD, breathing comfortably. Head: Atraumatic, symmetric CN: 2-12 grossly intact including all branches of CN VII, CN V Ears: hearing normal to conversational voice nose: normal external anatomy, no bony stepoffs. Right 9cm merocel in place, clot seen ante riorly, bleeding around merocel intermittently. No active bleeding seen in left nasal cavity , mucosa intact. Bloody secretions on floor of nasal cavity. mouth/throat: oropharynx clear, mmm, tongue midline Neck: no LAD or masses, no thyromegaly. Good laryngeal motion with swallow. FFS: Afrin applied to left naris. Flexible fiberoptic scope placed in the left naris - no active bleeding seen, OP clear, clot seen in the posterior right nasal cavity. Procedure: Left merocel 9cm placed in left nasal cavity and afrin applied to the left naris. Ties held in place with tegaderm. Labs: CBC with diff last 72 hours (or 3 results) Recent Labs Basename 06/09/125 06/08/12 0627 06/07/12 2156 WBC -- 9.1 -- HB 8.8* 8.3* 8.8* HCT 26* 25.8* 26* PLT -- -- -- NEUTROPERC -- 78* -- BANDPCT -- -- -- LYMPHPERC -- 12* -- MONOPERC -- 6 -- BASOPERC -- 0 -- EOSPERC -- 3 -- Assessment and Plan Diego Lucas is a 76 y.o. male with recurrent epistaxis, now controlled with application o f bilateral merocels. - Admit to ENT for observation - Abx while packs in - oxycodone for pain control - zofran for nausea - continue home meds - will discuss with Sinus team tomorrow, possible SPA ligation vs. Continued conservative m anagement with merocels - NPO at midnight Patient seen and discussed with Dr. Cherry who agrees with the plan. OC CALIX MD Otolaryngology Head and Neck Surgery PGY2 pager [phone] documented in thi s encounter ED Notes Manny Pena MD - 06/09/2012 8:22 PM PDTFormatting of this note might be different fr om the original. ED Shared Provider Note, co-authored by TAPAN PENA MD, [facility] and TARIQ SEXTON MD,PhD: HPI Mr Shayy returns for persistent epistaxis. He is a 76 yo gentleman w/ recent recurrent epistaxis from R nare thought to be due to dryness of MM. Epistaxis started 3d ago and he wa s seen multiple times here since including overnight obs admit and ENT consults. He had flos eal placed on initial visit, then nasopore/merocel which seemed to control sxs. Since discha rge yesterday from obs admission, pt states that bleeding started again on R nare in evening . Has had persistent bleeding and is swallowing a lot of blood. +nausea and vomiting of clot s intermittently. Packing is still in place. No light-headedness/falls/LOC/palpitations/ches t pain. He has been off ASA for a couple of days now. Had HgB drop to ~8 yesterday. PCP: Parviz Brar DO Patient Active Problem [...] Take 81 mg by mouth once daily. cephALEXin 500 mg Oral capsule No No Take 1 Cap by mouth every six hours for 6 days. Indications: Infection prevention while cain al packing is in place cetirizine 5 mg Oral tablet Yes No [...] needed. omeprazole 20 mg Oral capsule,delayed release(DR/EC) Yes No Take 20 mg by mouth once daily in the morning. Indications: GASTROESOPHAGEAL REFLUX oxyCODONE, immediate release, 5 mg Oral tablet No No Take 1 Tab by mouth every six hours as needed for severe pain. polyethylene glycol 17 gram/dose Oral Powder Yes [...] alcoh ol or use illicit drugs. Family History Problem Relation Non-contributory Neg Hx ROS: A 10pt ROS was performed and was negative except as in HPI. ED Triage Vitals BP Temp Pulse Resp SpO2 06/09/12195206/09/12195206/09/12195206/09/12195206/09/121952 121/69 mmHg 36.5 C 99 18 92 % Physical Exam Nursing note and vitals reviewed. Constitutional: He is oriented to person, place, and time. He appears well-developed and we ll-nourished. No distress. Sitting-up, using jankauer in mouth for bleeding HENT: Head: Normocephalic and atraumatic. Nose: Mouth/Throat: Oropharynx is clear and moist. Eyes: Conjunctivae and EOM are normal. Pupils are equal, round, and reactive to light. No s cleral icterus. Neck: Normal range of motion. Neck supple. Cardiovascular: Normal rate, regular rhythm, normal heart sounds and intact distal pulses. Pulmonary/Chest: Effort normal and breath sounds normal. Abdominal: Soft. He exhibits no distension. There is no tenderness. Musculoskeletal: Normal range of motion. He exhibits no edema. Neurological: He is alert and oriented to person, place, and time. No cranial nerve deficit . He exhibits normal muscle tone. Coordination normal. Skin: Skin is warm and dry. No rash noted. He is not diaphoretic. No erythema. There is pal sanjuana (mild). Psychiatric: He has a normal mood and affect. His behavior is normal. Judgment and thought content normal. ED COURSE AND MEDICAL DECISION MAKING: Triaged to acute side Placed on monitors IV access obtained Chem 8 w/ H&H notable for HgB 8.8 (improved from yesterday) Given zofran w/ improved nausea Given 500ml IVNS ENT consulted and eval'd pt in ED. Presentation is for recurrent epistaxis in a 76 yo M seen multiple times and given floseal/ nasopore/merocel. Bleeding thought to be due to dry MM. No HD instability although pt does d escribe significant amount of bleeding. Labs notable for anemia but not within range notable for need for transfusion. No chest pain to suggest demand ischemia. No presyncopal sxs or L OC. ENT felt that given recurrent epistaxis, presentation warranted admission. Remained HD stable throughout ED course. Admitted for further mgmt. Given complex course th is week, unclear if sxs to resolve within 24hrs at this time. Has also failed observation mg mt and dropped Hct significantly over 2 days. May require interventional mgmt. Will admit to inpatient status. IMPRESSION: 784.7 Epistaxis Anemia PLAN, DISPOSITION AND FOLLOW-UP: Admit to inpatient (ENT) 9:36 PM, MANNY PENA MD, [facility] Faculty Teaching Attestation: I saw and evaluated the patient and discussed the diagnosis and management of the patient w ith the resident. I performed and confirmed the dhillon portions of the service. We have both co ntributed to this note using the [employer] share function. I have reviewed all nursing notes, vit als signs and diagnostic test results (where applicable EMS notes have also been reviewed). Changes or additions made to the above note will be in bold type. I agree with the documenta tion findings and plan of care. MANNY PENA MD, [facility] Washroom Cleaner of Emergency Medicine and Pediatrics [facility] Department of Emergency Medicine [address] [place] [address] Yaima Alejandra Rn 06/09/2012 8:17 PM PDTPt moved to room 5, suction set up, given urinal and call light. iria Robin, Yaima Knox - 06/09/2012 7:46 PM PDTEMS to RN: Pt with epistaxis, CBG 97, O2 sats 97%. Hx pneumonia and pleuisy. Expiratory crackles to L side. R side CTA. Pt with GCS 15. Epistaxis has be en a problem since Wednesday, pt with packing in place, bleeding intermittently. Seen here for the same recently. Hx HTN. 7:4 8 PM PDTdocumented in this encounter Miscellaneous Notes Scan - Other, Faculty - 06/17/2012 7:18 AM PDTElectronically signed by Faculty Other at 7:18 AM PDTScan - Other, Faculty - 06/16/2012 9:17 AM PDT can - Other, Faculty - 06/16/2012 9:17 AM PDTElec tronically signed by Faculty Other at 06/16/2012 9:17 AM PDTScan - Other, Faculty - 013 9:17 AM PDT can - Othe r, Faculty - 06/16/2012 9:17 AM PDT 9: 17 AM PDTScan - Other, Faculty - 06/16/2012 9:17 AM PDT can - Other, Faculty - 06/16/2012 9:16 AM PDTElectronically s igned by Faculty Other at 06/16/2012 9:16 AM PDTScan - Other, Faculty - 06/16/2012 9:16 AM PDT valuation - Susy er, DIVYA Denis - 06/14/2012 4:49 PM PDTNursing Discharge Note Discharge Date: 06/14/2012 Additional Discharge Information: avs reviewed with pt. Called report to care facility. PIV dc'd. Pt sent to facility via wheelchair transport Discharge Nurse: CIRA AVITIA RN valuation - Cira Hamilton RN - 06/14/2012 1:03 PM PDTProblem: General Plan of Care (Adult) Goal: Individualization/Patient-Specific Goal Goals: 1. Patient will have pain </= to 2 /10 on pain scale. 2. Patient will maintain current level of mobility this shift. 3. Patient will exhibit no adverse effects R/T bleeding this shift 4. Patient will have no injuries related to falls this shift. 5. Patient will have no areas of altered skin integrity Interventions: 1. Assess and medicate for pain Q4 hours and prn. Reposition for comfort. 2. Encourage patient to participate in performing own ADL's. Ambulation twice in steward with assist per shift. Out to bed/dangle for meals. Encourage ambulation to BR vs. Urinal/BSC. 3. Assess and medicate for pain as ordered and prn. 4. Instruct and encourage use of call light for needs. Bed Alarm as needed. Environmental a rrangement for items with reach. Call light within reach. Hourly rounds. Toileting Q2 hours and prn. Identify fall risk with Adeel Scale. 5.Reposition Q2 hours and prn. Assess skin Q4 hours and prn with increased attention to bon y prominences. Encourage adequate nutritional intake. Interventions that worked/didn't work:above interventions effective My recommendations forward:continue with current plan Patient Stability:Moderately Stable lan of Care - Jaqueline Patterson RCP - 06/14/2012 11:14 AM PDTProblem: RT Goals & Interventions Goal: Assess patient and arrange for respiratory DME at discharge Respiratory Care Discharge Planning Desaturation Evaluation for Oxygen Use at Home Purpose for evaluation: Desaturation evaluation for initial qualification for home O2 Ordering Provider: Dr. Omar Moss Diagnosis: COPD ICD-9:496 Evaluation results: $ SpO2 on room air at rest (%): 88 % (06/14/12 1108) SpO2 on O2 at rest (%): 94 % (06/14/121107) Rate of O2 at rest (LPM): 2.5 LPM (06/14/121107) Ambulated patient?: Yes (06/14/121107) SpO2 on room air with ambulation (%): 86 % (06/14/121107) SpO2 on O2 with ambulation (%): 91 % (06/14/121107) Rate of O2 with ambulation (LPM): 2.5 LPM (06/14/121107) Dyspnea Index - Before: 0 (06/14/121107) Dyspnea Index - After: 4 (06/14/121107) Questions about the O2 evaluation can be referred to the RT Data Entry Manager by paging [phone] lan [facility] Jaqueline Juárez RCP - 06/14/2012 11:12 AM PDTProblem: RT Goals & Interventions Goal: Assess patient and arrange for respiratory DME at discharge Intervention: Establish medical necessity and identify repiratory DME needed for discharge The patient qualifies for the following respiratory DME upon discharge:Home oxygen continuo Intervention: Identify barriers to discharge No barrier at this time Intervention: Order DME from outside vendor and arrange delivery DME has been ordered from [facility], patient already serviced by [facility]. Patient is in a Care facility, and casework manager is ordering Wheelchair van service for disc maria guadalupege. will also have the vans supply oxygen for patient. The RT facility planner will continue to follow . Pager [phone] with any questions. lan of [facility] Cira Hamilton, DIVYA - 06/14/2012 10:37 AM PDTProblem: General Plan of Care (Adult) Goal: Individualization/Patient-Specific Goal Goals: 1. Patient will have pain </= to 2 /10 on pain scale. 2. Patient will maintain current level of mobility this shift. 3. Patient will exhibit no adverse effects R/T bleeding this shift 4. Patient will have no injuries related to falls this shift. 5. Patient will have no areas of altered skin integrity Interventions: 1. Assess and medicate for pain Q4 hours and prn. Reposition for comfort. 2. Encourage patient to participate in performing own ADL's. Ambulation twice in steward with assist per shift. Out to bed/dangle for meals. Encourage ambulation to BR vs. Urinal/BSC. 3. Assess and medicate for pain as ordered and prn. 4. Instruct and encourage use of call light for needs. Bed Alarm as needed. Environmental a rrangement for items with reach. Call light within reach. Hourly rounds. Toileting Q2 hours and prn. Identify fall risk with Adeel Scale. 5.Reposition Q2 hours and prn. Assess skin Q4 hours and prn with increased attention to bon y prominences. Encourage adequate nutritional intake. lan of [facility] - Trent Hernandez - 06/14/2012 9:27 AM PDTPhysical Therapy 06/14/2012 9:27 AM Pt seen on 13K Brief Hospital Course: Diego Lucas is a 76 year old male with recent multiple occurences of nosebleeds now s/p bilateral internal maxillary artery embolization with specialist in ep istaxis on 06/11/12 (per OT note, 06/13). Status Update: None Relevant Precautions: Fall risk Subjective: Pt agreeable. Pain: Does not endorse pain; nursing has been addressing. Objective: Pt supine in bed upon arrival of PT. SpO2 89% on 2L O2, HR 100 bpm at rest. Supi ne > sit with stand by assist. Scooting towards edge of bed with stand by assist. Sit > vicki d to front wheeled walker with contact guard assist. Gait training x 50 ft with front wheele d walker and stand by assist; pt with mildly heavy pressure through bilateral upper extremit ies, breathing more heavily with increasing distance but exhibiting steady gait throughout. Stand > sit to edge of bed with stand by assist. SpO2 91%, HR 113 bpm. Sit > supine with con tact guard assist to progress bilateral lower extremities. Cueing for slow, deep breaths as able; pt closing eyes, fatigued. Pt left supine in bed with needs met, call light handy, bed alarm activated. Assessment: Pt tolerated low-demand treatment this date with stable vitals throughout. Farida ins primarily limited by reduced tolerance to activity, but is cooperative and able to ambul ate short distance in steward at a stand by level of assist. Dynamic standing balance mildly im proved this date, showing stability with turning, side steps and backwards steps. See care plan for goals. Updated Plan & Recommendations: Activity plan: Pt would benefit from short, frequent bouts of activity; front wheeled walke r in room. Discharge recommendations: 24 hour skilled care with ongoing therapies; likely back to [facility] today. Will follow should pt remain in-house. TRENT HERNANDEZ, PT can - Other, Faculty - 8:22 AM PDT can - Other, Faculty - 06/14/2012 8:22 AM PDT valuation - Muriel Farah RN - 06/14/2012 6:01 AM PDTProblem: General Kartik n of Care (Adult) Intervention: NPEOC Acute Goals: 1. Pt's pain will be controlled to an acceptable level of 3 or less. 2. Pt will be without falls. 3. Pt will have adequate uop of at least 30cc's an hour. 4. Prevent skin breakdown. 5. Pt will sleep. Interventions: 1. Assess for pain and discomfort q 3 hours and as needed. Reposition. Assess the effective ness of pain medications. 2. Maintain a safe/ clutter free environment. Tubing secured, call light and frequently use d personal items within reach. 3. Monitor I&O's, VS. Encourage PO as indicated, instruct pt to call RN if any nausea. 4. Assess for skin breakdown, encourage repositioning, secure tubings; 5. Encourage sleep, decrease noise, cluster care. Interventions that worked/didn't work:All interventions successful My recommendations forward:Continue with plan of care Patient Stability:Moderately Stable lan of Care - Muriel Singh RN - 06/14/2012 1:52 AM PDTProblem: General Plan of Care (Adult) Intervention: NPEOC Acute Goals: 1. Pt's pain will be controlled to an acceptable level of 3 or less. 2. Pt will be without falls. 3. Pt will have adequate uop of at least 30cc's an hour. 4. Prevent skin breakdown. 5. Pt will sleep. Interventions: 1. Assess for pain and discomfort q 3 hours and as needed. Reposition. Assess the effective ness of pain medications. 2. Maintain a safe/ clutter free environment. Tubing secured, call light and frequently use d personal items within reach. 3. Monitor I&O's, VS. Encourage PO as indicated, instruct pt to call RN if any nausea. 4. Assess for skin breakdown, encourage repositioning, secure tubings; 5. Encourage sleep, decrease noise, cluster care. andoff - Muriel Farah RN - 06/14/2012 1:51 AM PDTPrimary focus of stay: Admit for recurrent epistaxis, hx COPD, GERD, BPH, back surgeries Pertinent physical findings: 06/10 embolization done in IRU Pt had multiple episodes of bleeding ~800mL from nares 06/10 & 06/11 requiring PRODUCTION POSTING CLERK call, pack ing of nares, vargas catheter inserted into nare and balloon inflated to control bleeding(all gone, only packing in Right nare left) 06/11 to OR, ethmoid arteries ligated Neuro: A&O x4 Cardiac:Tachy, team aware. On tele, 2 units PBRCs given - .Today 06/13 Pt with episode of tachy to the 200's for ~40 sec. MD team aware, VSS,12 EKG done and troponin < 0.2. Pulm: COPD, uses O2 2home, packing in R nare :hx BPH but current voiding well ,takes flomax. Skin: occlusive dressing on R groin site. Incisions to right nose/face, shea drain remov ed yesterday On IV antibx to address risk for toxic shock syndrome d/t packing Orders to follow up on: monitor for bleeding. Am labs Last pain assessment/reassessment: nose is sore, and pt complaining of generalized pain (mo stly on left posterior back/chest from baseline pleuritic pain). Oxycodone 5-10 mg prn q 6 h rs, given 5mg at 0545. Psych/social issues: very pleasant. Lives in [facility] with (also a resident there), CM working on probable discharge 06/14 Last patient visit (i.e. Falls/Activity/Comfort/Environment/Toileting/Skin): hx of falls at home, weak and unsteady, SBA, calls appropriately ,Keep bed alarm on. Anticipated or pending procedures: DC in am? andoff - Robin Lakhani RN - 06/13/2012 10:05 PM PDTPrimary focus of stay: Admit for recurrent epistaxis, hx COPD, GERD, BPH, back surgeries Pertinent physical findings: 06/10 embolization done in IRU Pt had multiple episodes of bleeding ~800mL from nares 06/10 & 06/11 requiring PRODUCTION POSTING CLERK call, pack ing of nares, vargas catheter inserted into nare and balloon inflated to control bleeding 06/11 to OR, ethmoid arteries ligated Neuro: A&O x4 Cardiac:Tachy, team aware. On tele, 2 units PBRCs given 06-11 .Today 06/13 Pt with episode of tachy to the 200's for ~40 sec. MD team aware, VSS,12 EKG done and troponinx1 ordered. Pulm: COPD, uses O2 2home, packing in R nare :hx BPH but current voiding well ,takes flomax. Skin: occlusive dressing on R groin site. Incisions to right nose/face, shea drain remov ed yesterday On IV antibx to address risk for toxic shock syndrome d/t packing Orders to follow up on: monitor for bleeding. Am labs Last pain assessment/reassessment: nose is sore, and pt complaining of generalized pain. Ox ycodone 10 mg prn q 6 hrs, given at 1900. Psych/social issues: very pleasant Last patient visit (i.e. Falls/Activity/Comfort/Environment/Toileting/Skin): hx of falls at home, weak and unsteady, SBA, calls appropriately ,Keep bed alarm on. Anticipated or pending procedures: DC in am? valuation - Janett Reddy RN - 06/13/2012 2:53 PM PDTProblem: General Plan of Care (Adult) Intervention: NPEOC Acute Goals: 1. Prevent/Manage pain 2. Increase mobility while preventing falls Interventions: 1. Assess pain Q4 hours and prn. Talk with pt about pain relief strategies, pain scale, and develop plan for the day. Administer pain medications per MD orders. Provide heat, cold, an d repositioning for pain relief per pt comfort. 2. Educate pt on benefits of increased activity OOB. Provide pt with adequate pain relief. Provide pt with activity assistance and mobility equipment prn. Initiate fall precautions: b ed alarm, signs posted for all staff, frequent checks, answer call light in person Interventions that worked/didn't work:Pt rating generalized body aches and pain 08/31 this s hift. Spoke with MD team re increasing po oxycodone, pt satisfied with current pain interven tions. Pt ambulating in hallway x 2 this shift with SBA and walker. Pt OOB to chair x 3 for >30 m in each time. Pt fatigues very easily, and complaining of dizziness with changing positions. Pt educated about increased risk for falls, pt stated understanding. Pt calling appropriate ly for staff assistance but Bbd alarm placed on pt d/t urgent toileting needs this am. My recommendations forward:Continue to encourage activity OOB per pt tolerance, but it help ed to allow pt short rest periods between activities as he tires quickly. Patient Stability:Moderately Unstable lan of [facility] - Lillian Burger - 06/13/2012 1:31 PM PDTProblem: Case Management Goals Goal: Discharge Needs Met Case Management Initial Assessment Reason for Admission: Prolonged Epistaxis, Anemia Admitted From: [facility] Emergency Contact: Extended Emergency Contact Information Primary Emergency Contact: Jayce Lucas Relation: Son/Daughter Past Medical History: Epistaxis [784.7] Anemia [285.9] Epistaxis, CONTROL EPISTAXIS ENDOSCOPY NASAL (SOR ONLY) Lives With: spouse Living Arrangement: Home in [place] Functional Level Prior to Admission: independent Transportation Available: Equipment Currently used at Home/DME Provider: n/a Home Health/Infusion Agency: n/a Insurance/Funding: @PAYORNAME@, Medicare A/B Assessment: 76 yr old male transferred from [facility] s/p bilateral VANIA embolizati on by IR followed by right open anterior and posterior ethmoid artery ligation, endoscopic s phenopalatine artery ligation on 06/11. Doing well now with no signs of bleed though with low crit and orthostasis. Patient state his is a patient at [facility] an d he was admitted there as well after treatment for pneumonia at [facility]. After a rriving at [facility], patient developed epistaxis requiring transfer to [facility] for further treatm ent. Patient state his is still at [facility] and he anticipates returning there. Spoke wit h [facility] liaison and confirmed that both patient and are under their care, and they a re holding a bed for patient's return. Plan for probable dc back to [facility] tomorrow. Case mg t to follow. [facility] [id number] Anticipated Discharge Needs: Assessment done by: lan of Care - Janett Narvaez nd, RN - 06/13/2012 12:38 PM PDTProblem: General Plan of Care (Adult) Intervention: NPEOC Acute Goals: 1. Prevent/Manage pain 2. Increase mobility while preventing falls Interventions: 1. Assess pain Q4 hours and prn. Talk with pt about pain relief strategies, pain scale, and develop plan for the day. Administer pain medications per MD orders. Provide heat, cold, an d repositioning for pain relief per pt comfort. 2. Educate pt on benefits of increased activity OOB. Provide pt with adequate pain relief. Provide pt with activity assistance and mobility equipment prn. Initiate fall precautions: b ed alarm, signs posted for all staff, frequent checks, answer call light in person andoff - Janett Guajardo RN - 06/13/2012 12:37 PM PDTPrimary focus of stay: Admit for recurrent e pistaxis, hx COPD, GERD, BPH, back surgeries Pertinent physical findings: 06/10 embolization done in IRU Pt had multiple episodes of bleeding ~800mL from nares 06/10 & 06/11 requiring PRODUCTION POSTING CLERK call, pack ing of nares, vargas catheter inserted into nare and balloon inflated to control bleeding 06/11 to OR, ethmoid arteries ligated Neuro: A&O x4 Cardiac:Tachy, team aware. On tele, 2 units PBRCs given - . Pt with episode of tachy to the 200's for ~40 sec. MD team aware, VSS Pulm: COPD, uses O2 2home, packing in R nare :hx BPH but voiding well Skin: occlusive dressing on R groin site. Incisions to right nose/face, shea drain remov ed yesterday On IV antibx to address risk for toxic shock syndrome d/t packing Orders to follow up on: monitor for bleeding. Am labs Last pain assessment/reassessment: nose is sore, and pt complaining of generalized pain. Sp koko with re increased doseage Psych/social issues: very pleasant Last patient visit (i.e. Falls/Activity/Comfort/Environment/Toileting/Skin): hx of falls at home, weak and unsteady, SBA, calls appropriately Anticipated or pending procedures: DC in am? lan of [facility] - Trent Hernandez - 06/13/2012 9:30 AM PDTFormatting of this note might be different from the o erikainal. Physical Therapy Evaluation 06/13/2012 9:30 AM Brief Hospital Course: Diego Lucas is a 76 year old male with recent multiple occurences of nosebleeds now s/p bilateral internal maxillary artery embolization with specialist in e pistaxis on 06/11/12 (per OT note, 06/13). Relevant Precautions: Fall risk Past Medical History Diagnosis Date Pneumonia COPD Gastroesophageal reflux Benign hypertrophy of prostate Unspecified essential hypertension Past Surgical History Procedure Date Back surgery Living Environment: Pt has been at [facility] (was sent there from [facility] al d/t pneumonia). Usually lives with spouse (who is also at [facility]) in [facility] 2 level house (basement), 3 steps to enter, 1 flight of steps to basement (which he access es), tub-shower, no seat, standard height toilet. Prior Level of Function: Has been working with both OT and PT at [facility]. Endorses need for supervision only for ADLs and was walking around the entire facility without assistive devic e. Sits for showering and lower body dressing. Was working on increasing strength and [employer]. Had a fall in February, while at [employer] in which he was sitting on a stool and pas sed out and fell off the stool (per pt he had low blood counts) Patient / Family Goal: Go back to [facility] Barriers: none Pain: Does not quantify but endorses mild discomfort through all extremities, abdomen; nurs ing has been addressing pain. Vital signs: SpO2 80% on room air. On 2L supplemental O2, SpO2 90-93%, HR 120 bpm. With act ivity, HR increasing to 135 bpm, trending down with rest. Cognitive Screen Level of alertness: Alert Orientation: Oriented x 4 Quality of responses: Appropriate Command followin% single step Judgment / safety awareness: Good Physical Assessment ROM: bilateral lower extremities within functional limits Strength: bilateral lower extremities grossly 4/5 Edema: None visualized Skin Integrity: Intact Neurological Function Sensation: Intact to light touch all extremities Muscle Tone: No abnormal tone noted Proprioception: NT Gross Motor: Intact Fine Motor: Intact Balance: Static sitting independent Dynamic sitting independent Static standing stand by assist with front wheeled walker Dynamic standing stand by assist with front wheeled walker Mobility & Transfers: Supine > sit with stand by assist Sit <> stand with close stand by assist Gait: Pt ambulated ~50 ft with front wheeled walker and close stand by assist on 2L O2. Pt with forward flexed trunk, heavy pressure through bilateral upper extremities onto front whe eled walker, increasing dyspnea with distance. Shuffling gait throughout but no apparent los s of balance. Treatment provided this date: Evaluation, initiation of activity plan Ended session: Pt sitting up in bedside chair with call light handy, needs met. ASSESSMENT: Pt presenting below his baseline level of functional mobility in terms of david ance to activity, transfers, standing balance, generalized strength. Grossly requiring close stand by assist for all mobility; primarily limited by reduced stamina for all activity. Pt would benefit from skilled PT to address above impairments and instruct in strengthening an d endurance program as well as provide balance and gait training to increase current functio nal level and decrease fall risk. Recommendations: Activity plan: Up to chair and ambulating TID with assist; front wheeled walker in room. Discharge recommendations: 24 hour skilled care with ongoing therapies. Likely back to faci lity. PLAN: Therapeutic activity, therapeutic exercise, transfer training, gait training, dynami c standing balance tasks, precaution review, caregiver education Frequency: 4x/week Duration: 1 week The above plan of care and goals were developed and reviewed with the patient. TRENT HERNANDEZ, PT lan of Care - Chayo Vuong OT - 06/13/2012 9:19 AM PDTFormatting of this note might be different from the cyndy cardenas. Occupational Therapy Evaluation 06/13/2012 9:19 AM Pt admitted on 06/09/2012, hospital day # 4. Seen on 13K. Brief Hospital Course: Pt is a 76 yo male with recent multiple occurences of nosebleeds no w s/p bilateral internal maxillary artery embolization with specialist in epistaxis on . Relevant Precautions: Fall risk Past Medical History Diagnosis Date Pneumonia COPD Gastroesophageal reflux Benign hypertrophy of prostate Unspecified essential hypertension Past Surgical History Procedure Date Back surgery Living Environment: Pt has been at [facility] (was sent there from [facility]/t [place]). Usually lives with spouse (who is also at [facility]) in [facility] 2 level house (basement), 3 steps to enter, 1 flight of steps to basement (which he acce sses), tub-shower, no seat, standard height toilet. Prior Level of Function: Has been working with both OT and PT at [facility]. Endorses need fo r supervision only for ADLs and was walking around the entire facility without assistive dev ice. Sits for showering and lower body dressing. Was working on increasing strength and en durance. Had a fall in February, while at [facility] in which he was sitting on a stool an d passed out and fell off the stool (per pt he had low blood counts) Patient / Family Goal: Go back to [facility] Barriers: none Pain: Endorses pain in abdomen/10 at rest, /10 with activity. Pain addressed: RN aware Vital signs: 82% on room air, 88-92% on 2L oxymask, HR in the 120s. Cognitive Screen Level of alertness: Verbalizes/alert Orientation: x4 Quality of responses: appropriate Command following: Multi-step Memory: STM/LTM intact Judgement / safety awareness: good Attention / Concentration: good Barriers to Learning: none Affect: appropriate Visual Perception: WFL UE Physical Assessment Dominant Hand: R ROM: BUE WFL Strength: BUE 5/5 Edema: None visualized Skin Integrity: intact UE Neurological Function Sensation: BUE intact to light touch Muscle Tone: intact Proprioception: intact Gross Motor: intact Fine Motor: intact Activities of Daily Living: UB Dressing: independent UB Grooming: supervision standing sinkside LB Dressing: seated dons pants over feet independent, standing to hike pants over hips wit h standby assist Toileting: independent Ambulation with ADL: In room using front wheel walker with standby assist - defer to PT ev aluation for details Transfers: Supine>sit with head of bed at 30* independent, sit<>stand with standby assist with good hand placement, toilet transfer standby assist - slightly more difficult with richter sferring off toilet but able to complete Treatment provided this date: Pt seen for evaluation Ended session: With PT ASSESSMENT: Pt is a 76 yo male admitted for nosebleed. Pt is alert and oriented. Follows commands. BUE strength/ROM/sensation/motor function WFL. Vision intact. Able to perform ADLs with supervision and functional mobility related to ADLs with standby assist. Very low activity tolerance. Would benefit from continued OT services at SNF. Pt has no acute OT n eeds. Will sign-off. If condition changes, please reorder OT services. See care plan for goals. Recommendations: Discharge back to SNF Activity Recommendations: out of bed three times/day, encourage independence with ADLs PLAN: Discharge acute OT The above plan of care and goals were developed and reviewed with the patient. LATIA VUONG OT valuation - Marlys Otto RN - 06/13/2012 2:44 AM PDTProblem: General Plan of Care (Adult) Intervention: NPEOC Acute Goals: 1. Patient will remain free from falls and injury throughout shift. 2. Patient will rate pain < 3/10 during shift. 3. Patient will increase time out of bed and ambulate TID 4. Patient will have no nausea/vomiting during shift. 5. Monitor for s/s bleeding Interventions: 1. Hourly rounding. Keep room free of clutter and debris. Keep IV tubing secured. Utilize b ed alarm if patient non-compliant. Ensure the use of non-skid socks on when out of bed. Comm ode/urinal at bedside. Call light within reach. Educate patient and family on fall preventio n. 2. Assess pain q 4 hours and prn. Administer prn pain medication as indicated. Encourage de ep breathing, distraction and change of position as alternative methods of pain reduction. E ducate patient and family on pain and treatment. 3. Assist pt to chair, and to ambulate, control pain for better compliance 4. Assess n/v V0enleb and PRN. Treat with PRN and/or scheduled anti-emetics. Encourage smal l sips/bites. Educate on alternative techniques for nausea management (i.e. Side lying, dist raction, deep breathing). 5. Monitor for epistaxis, VS, labs Interventions that worked/didn't work:Interventions effective, no further bleeding My recommendations forward: Continue with plan of care Patient Stability:Moderately Unstable andoff - Fam, Chayo Matthews RN - 06/13/2012 2:42 AM PDTPrimary focus of stay: Admit for recurrent epistax is, hx COPD, GERD, BPH, back surgeries Pertinent physical findings: 06/10 embolization done in IRU Pt had multiple episodes of bleeding ~800mL from nares 06/10 & 06/11 requiring PRODUCTION POSTING CLERK call, pack ing of nares, vargas catheter inserted into nare and balloon inflated to control bleeding 06/11 to OR, ethmoid arteries ligated Neuro: A&O x4 Cardiac:Tachy, team aware. On tele, 2 units PBRCs given yesterday . DC tele? Pulm: COPD, uses O2 2home, packing in R nare :hx BPH but voiding well Skin: occlusive dressing on R groin site. Incisions to right nose/face, shea drain remov ed yesterday On IV antibx to address risk for toxic shock syndrome d/t packing Orders to follow up on: monitor for bleeding. Have PT/OT assess before DCing Last pain assessment/reassessment: nose is sore, oxycodone available Psych/social issues: very pleasant Last patient visit (i.e. Falls/Activity/Comfort/Environment/Toileting/Skin): hx of falls at home, weak and unsteady, SBA, calls appropriately Anticipated or pending procedures: PT/OT eval, then d/c andoff - Susan Rowland RN - 06/12/2012 4:47 PM PDTPrimary focus of stay: Admit for recurrent epistaxis, hx COPD, GERD, BPH, back surgeries Pertinent physical findings: 06/10 embolization done in IRU Pt had multiple episodes of bleeding ~800mL from nares 06/10 & 06/11 requiring PRODUCTION POSTING CLERK call, pack ing of nares, vargas catheter inserted into nare and balloon inflated to control bleeding 06/11 to OR, ethmoid arteries ligated Neuro: A&O x4 Cardiac:Tachy, team aware. On tele, 2 units PBRCs given yesterday . DC tele? Pulm: COPD, uses O2 2home, packing in R nare :hx BPH but voiding well Skin: occlusive dressing on R groin site. Incisions to right nose/face Musc: SBA, calls appropriately. Hx recent falls and unsteady On IV antibx to address risk for toxic shock syndrome d/t packing Orders to follow up on: monitor for bleeding. Have PT/OT assess before DCing Last pain assessment/reassessment: denies Psych/social issues: very pleasant Last patient visit (i.e. Falls/Activity/Comfort/Environment/Toileting/Skin): oxycodone avai lable Anticipated or pending procedures: valuation - Susan Rowland RN - 06/12/2012 3:40 PM PDTProblem: General Plan of Care (Adult) Intervention: NPEOC Acute Goals: 1. Patient will remain free from falls and injury throughout shift. 2. Patient will rate pain < 3/10 during shift. 3. Patient will increase time out of bed and ambulate TID 4. Patient will have no nausea/vomiting during shift. Interventions: 1. Hourly rounding. Keep room free of clutter and debris. Keep IV tubing secured. Utilize b ed alarm if patient non-compliant. Ensure the use of non-skid socks on when out of bed. Comm ode/urinal at bedside. Call light within reach. Educate patient and family on fall preventio n. 2. Assess pain q 4 hours and prn. Administer prn pain medication as indicated. Encourage de ep breathing, distraction and change of position as alternative methods of pain reduction. E ducate patient and family on pain and treatment. 3. Assist pt to chair, and to ambulate, control pain for better compliance 4. Assess n/v [id number] and PRN. Treat with PRN and/or scheduled anti-emetics. Encourage smal l sips/bites. Educate on alternative techniques for nausea management (i.e. Side lying, dist raction, deep breathing). Interventions that worked/didn't work:*Interventions mentioned above My recommendations forward:Continue interventions Patient Stability:Moderately Unstable lan of Care - Susan Patterson RN - 06/12/2012 10:07 AM PDTProblem: General Plan of Care (Adult) Intervention: NPEOC Acute Goals: 1. Patient will remain free from falls and injury throughout shift. 2. Patient will rate pain < 3/10 during shift. 3. Patient will increase time out of bed and ambulate TID 4. Patient will have no nausea/vomiting during shift. Interventions: 1. Hourly rounding. Keep room free of clutter and debris. Keep IV tubing secured. Utilize b ed alarm if patient non-compliant. Ensure the use of non-skid socks on when out of bed. Comm ode/urinal at bedside. Call light within reach. Educate patient and family on fall preventio n. 2. Assess pain q 4 hours and prn. Administer prn pain medication as indicated. Encourage de ep breathing, distraction and change of position as alternative methods of pain reduction. E ducate patient and family on pain and treatment. 3. Assist pt to chair, and to ambulate, control pain for better compliance 4. Assess n/v [id number] and PRN. Treat with PRN and/or scheduled anti-emetics. Encourage smal l sips/bites. Educate on alternative techniques for nausea management (i.e. Side lying, dist raction, deep breathing). Dakota Cao RN - 06/12/2012 3:20 AM PDTPrimary focus of stay: Admit for recurrent epistaxi s, hx COPD, GERD, BPH, back surgeries Pertinent physical findings: 06/10 embolization done in IRU Pt had multiple episodes of bleeding ~800mL from nares 06/10 & 06/11 requiring PRODUCTION POSTING CLERK call, pack ing of nares, vargas catheter inserted into nare and balloon inflated to control bleeding 06/11 to OR, ethmoid arteries ligated Neuro: pulled out PIV in PACU but now A&O x4 Cardiac:Tachy, team aware. On tele, 2 units PBRCs given yesterday Pulm: COPD, uses O2 2home, shea drain & packing in R nare :hx BPH but voiding well Skin: occlusive dressing on R groin site Musc: SBA, calls appropriately On IV antibx to address risk for toxic shock syndrome d/t packing Orders to follow up on: monitor for bleeding Last pain assessment/reassessment: denies Psych/social issues: very pleasant Last patient visit (i.e. Falls/Activity/Comfort/Environment/Toileting/Skin): oxycodone avai lable or IV fentanyl 25mcg, pt becomes drowsy if given larger dose Anticipated or pending procedures: Macario Philip RN - 06/11/2012 7:49 PM PDTFormatting of this note might be different from e original. Meets Phase I Discharge Criteria (Stable For Transfer): yes Major deviations/events or pertinent findings of chente-operative stay: restless, but coopera tive Anticipated post-op needs/devices/follow up: operative dressings, two peripheral intravenou s; one is SL Past Medical History Diagnosis Date Pneumonia COPD Gastroesophageal reflux Benign hypertrophy of prostate Unspecified essential hypertension Past Surgical History Procedure Date Back surgery Allergies Allergen Reactions Paper First Aid Tape (Adhesive Tape) Hives and Rash Post-Op Diagnosis Codes: Acute abscess of nasal sinus [461.9] Epistaxis [784.7] Surgical Procedure Planned - Actual Procedure Performed: CONTROL EPISTAXIS - Endoscopic intranasal control of epistaxis; ethmoid artery ligation; m axillary sinus lavage Anesthesia: General Length of procedure: In Room/Out of Room: 2 Hr 38 Min 33 Sec Surgeon(s) and Role: Jose Angel Easton MD - Assisting Fredrick Cherry MD - Primary OR positioning comments: supine Neuro: POSS Sedation Level: Slighty Drowsy (Simultaneous filing. User may not have seen pr evious data.) Last pain medication given: Pain medication totals: see MAR Additional pain medication information: see MAR Functional Epidural: none LICENSED PSYCHIATRIC TECHNICIAN: none Respiratory: RR: 21 , O2 Sat: 100 %, O2 Delivery: Simple mask Breath Sounds: WDL Except JOANNA: coarse LLL: diminished RUL: coarse RLL: diminished YAMILKA no Comment: no Cardiac: BP: 133/77 mmHg HR: 112 GI: Nausea/Vomiting Status: none Signs/Symptoms: Interventions: Assessment: Comments: : Last void: vargas in OR, removed prior to arrival in pacu Contact Name: JAYCE/ SON Contact Number: [phone] Family contacted: Comment: Belongings: andoff - Susan Rowland RN - 06/11/2012 2:08 PM PDTNursing Handoff Report Primary focus of stay: Recurrent right epistaxis, Embolization done (06/10/12) Pt had freque nt large (4-5inch) blood clots out of mouth all night until MD finally put vargas in around 2 300 with gauze and clamp, then around 0200 pt started bleeding again, but this time out of r ight nare. So severe that rapid response was called. MD put another nasal packing in. Pt sti ll having some bleeding last changed outer gauze a 0600. Bled again at 0930; MDs reposition ed vargas in right nare. Recieved 2 units PRBCs, pt denied CP SOB or other symptoms. Noted ta chycardia (up to 140's) now running 115-125, pt got 1L bolus and IVF increased. On tele for HR and O2 Pertinent physical findings: Bilateral nose plugs-still draining blood out of right joya af ter embolization-pressure and monitor, Voids-urinal, up x1 standby, R-femoral puncture site, alert x4, VSS, NPO. Orders to follow up on: watch for continued bleeding and alert team if it continues. Last pain assessment/reassessment: Psych/social issues: none Last patient visit (i.e. Falls/Activity/Comfort/Environment/Toileting/Skin): fentanyl for n seferino pain, I recommend using 25mcg, as 50 seem to make pt quite drowsy Anticipated or pending procedures: none lan of Care - Susan Patterson RN - 06/11/2012 12:24 PM PDTProblem: General Plan of Care (Adult) Intervention: NPEOC Acute Goals: 1. Patient will remain free from falls and injury throughout shift. 2. Patient will rate pain < 3/10 during shift. 3. Patient will increase time out of bed and ambulate TID 4. Patient will have no nausea/vomiting during shift. Interventions: 1. Hourly rounding. Keep room free of clutter and debris. Keep IV tubing secured. Utilize b ed alarm if patient non-compliant. Ensure the use of non-skid socks on when out of bed. urin al at bedside. Call light within reach. Educate patient and family on fall prevention. 2. Assess pain q 4 hours and prn. Administer prn pain medication as indicated. Encourage de ep breathing, distraction and change of position as alternative methods of pain reduction. E ducate patient and family on pain and treatment. 3. Assist pt to chair, and to ambulate, control pain for better compliance 4. Assess n/v U5wnavz and PRN. Treat with PRN and/or scheduled anti-emetics. Encourage smal l sips/bites. Educate on alternative techniques for nausea management (i.e. Side lying, dist raction, deep breathing). valuation - Muriel Singh RN - 06/11/2012 7:47 AM PDTProblem: General Plan of Care (Adult) Intervention: NPEOC Acute Goals: 1. Pt's pain will be controlled to an acceptable level of 3 or less. 2. Pt will be without falls. 3. Pt will have adequate uop of at least 30cc's an hour. 4. Prevent skin breakdown. 5. Pt will sleep. Interventions: 1. Assess for pain and discomfort q 3 hours and as needed. Reposition. Assess the effective ness of pain medications. 2. Maintain a safe/ clutter free environment. Tubing secured, call light and frequently use d personal items within reach. 3. Monitor I&O's, VS. Encourage PO as indicated, instruct pt to call RN if any nausea. 4. Assess for skin breakdown, encourage repositioning, secure tubings; 5. Encourage sleep, decrease noise, cluster care. Interventions that worked/didn't work:Pt was painful, but did sleep between care My recommendations forward:2nd unit of PRBC vanessa, follow up with team so pt can get OR vanessa , packing very painful Patient Stability:Moderately Unstable ignificant Event - Jose Renner RN - 06/11/2012 3:54 AM PDTSummary: Unit: 13KPV - ONC (06/11/12224) Room #: 28 (06/11/12224) Time Called: 224 (06/11/12224) Time Ended: 351 (06/11/12224) Recommendations / Interventions: Primary Reason for Call: Bleeding (06/11/12224) Interventions: Labs Sent (06/11/12224) Situation: Situation: Paged by lithopone charger. Pt having more epistaxis; pt has both nares packed; in addit ion the right nare has a vargas cath inserted with the balloon inflated to reduce bleeding. Emilio Eden is present. Vargas repositioned; right nare repacked. CBC, renal and coag panel s ent. Per Dr. Eden the pt will be going for a procedure around noon. Dr. Eden ordered 2 units of prbcs. VSS except pt is tachy 120-140; with his baseline in the high 90s to 100. Labs: Hgb 6.8, Hct 20.6, plts 119. Pt to stay in room; will monitor. (06/11/12224) Background: Background: See H&P (06/11/12224) Outcome/Personnel: Outcome: Stayed in room (06/11/12224) Physician Notified: Yes (06/11/12224) Caller: marbella Clemens RN (06/11/12224) Jose Renner RRT RN l an of Care - Muriel Farah RN - 06/11/2012 3:30 AM PDTProblem: General Plan of Care (Ad ult) Intervention: NPEOC Acute Goals: 1. Pt's pain will be controlled to an acceptable level of 3 or less. 2. Pt will be without falls. 3. Pt will have adequate uop of at least 30cc's an hour. 4. Prevent skin breakdown. 5. Pt will sleep. Interventions: 1. Assess for pain and discomfort q 3 hours and as needed. Reposition. Assess the effective ness of pain medications. 2. Maintain a safe/ clutter free environment. Tubing secured, call light and frequently use d personal items within reach. 3. Monitor I&O's, VS. Encourage PO as indicated, instruct pt to call RN if any nausea. 4. Assess for skin breakdown, encourage repositioning, secure tubings; 5. Encourage sleep, decrease noise, cluster care. andoff - Muriel Farah RN - 06/11/2012 3:30 AM PDTNursing Handoff Report Primary focus of stay: Recurrent right epistaxis, Embolization done (06/10/12) Pt had freque nt large (4-5inch) blood clots out of mouth all night until MD finally put vargas in around 2 300 with gauze and clamp, then around 0200 pt started bleeding again, but this time out of r ight nare. So severe that rapid response was called. put another nasal packing in. Pt still having some bleeding last changed outer gauze a 0600, Pt getting 1st unit of PRBC now, should finish soon, please note that at 15 min temp went from 37.0 to 37.5 and then up to 3 8.0 axillary 1hr after, pt denied CP SOB or other symptoms, notified, wants to continue b lood, also pt's platelets were clotting, wants to just redraw a CBC after both units are in. Noted tachycardia (up to 140's) now running 115-125, pt got 1L bolus and IVF increased, al so blood Pertinent physical findings: Bilateral nose plugs-still draining blood out of right joya af ter embolization-pressure and monitor, Voids-urinal, up x1 standby, R-femoral puncture site, alert x4, VSS, NPO. Hct dropped from 24 to 20 overnight Orders to follow up on: watch for continued bleeding and alert team if it continues. Last pain assessment/reassessment: 704 Psych/social issues: none Last patient visit (i.e. Falls/Activity/Comfort/Environment/Toileting/Skin): fentanyl for n seferino pain, I recommend using 25mcg, as 50 seem to make pt quite drowsy Anticipated or pending procedures: none Ritesh Zhou RN - 06/10/2012 5:13 PM PDTNursing Handoff Report Primary focus of stay: Recurrent right epistaxis, Embolization done today(06/10/12) Pertinent physical findings: Bilateral nose plugs-still draining blood out of right joya af ter embolization-pressure and monitor, Voids-urinal, up x1 standby, R-femoral puncture site , alert x4, VSS, Regular diet, x1 piv-100/hr, HCT last was 24.7-monitor and maybe redraw Orders to follow up on: watch for continued bleeding and alert team if it continues. Last pain assessment/reassessment: 1800 Psych/social issues: none Last patient visit (i.e. Falls/Activity/Comfort/Environment/Toileting/Skin): 1800-medicated Anticipated or pending procedures: noneElectronically signed by Ritesh Charles RN at 05/23 5:23 PM Brian Torres RN - 06/10/2012 1:07 PM PDT Procedure: Embolization of Internal Maxillary Artery Angio (Fellow)/pager: Leigha [phone] Fentanyl 100 Midazolam 2 Other Meds 4mg Zofran Access site(s): right femoral Closure device: perclose Hours to keep leg straight: 2 Pt. location prior to Angio: 13k Pt. disposition post recover: 13k NEURO LOC: alert (06/10/12 1200) Pupils PERLLA yes (06/10/12 1200) R Pupil Size: 3 mm (06/10/12 1200) Reaction: equal (06/10/12 1200) Sensory Impairment: -- (06/10/12 1200) L Pupil Size: 3 mm (06/10/12 1200) Reaction: equal (06/10/12 1200) Sensory Impairment: -- (06/10/12 1200) Facial Palsy: -- (06/10/12 1200) R Motor: purposeful/movement localizing (06/10/12 1200) L Motor: purposeful/movement localizing (06/10/12 1200) Alternating Hand Movements: R/L Hand Supervising Deputy: strong (06/10/12 1200) , strong (06/10/12 1200) R/L Dorsiflexion: strong (06/10/12 1200) , strong (06/10/12 1200) R/L Plantarflexion: strong (06/10/12 1200) , strong (06/10/12 1200) Last 24 hour min/max Temp: 36.8 C (98.2 F) Temp Min: 36.5 C (97.7 F) Max: 36.8 C (98.2 F) Pulse: 96 Pulse Min: 89 Max: 107 Resp: 17 Resp Min: 11 Max: 20 BP: 137/66 mmHg BP Min: 114/65 Max: 154/82 SpO2: 96 % SpO2 Min: 88 % Max: 98 % There is no height or weight on file to calculate BMI. Past Medical History Diagnosis Date Pneumonia COPD Gastroesophageal reflux Benign hypertrophy of prostate Unspecified essential hypertension Lines, Drains and Wounds Peripheral Line Left Hand (Active) Line Status IVF 06/10/2012 12:00 PM IV Assessment Clean, Dry, Intact;Catheter flow adequate 06/10/2012 12:00 PM I/O Vol (mL) Saline Flush 5 mL 06/10/2012 8:00 AM Phlebitis Scale No symptoms 06/10/2012 12:00 PM Infiltration Scale No symptoms 06/10/2012 12:00 PM Number of days:1 Peripheral Line Left Hand (Active) Number of days: D Teaching Notes - Manny Ferrell MD - 06/09/2012 9:52 PM PDT9:52 PM, MANNY PENA MD, [facility] Faculty Teaching Attestation: I saw and evaluated the patient and discussed the diagnosis and management of the patient w ith the resident. I performed and confirmed the dhillon portions of the service. We have both co ntributed to this note using the [employer] share function. I have reviewed all nursing notes, vit als signs and diagnostic test results (where applicable EMS notes have also been reviewed). Changes or additions made to the above note will be in bold type. I agree with the documenta tion findings and plan of care. MANNY PENA MD, [facility] Washroom Cleaner of Emergency Medicine and Pediatrics [facility] Department of Emergency Medicine [address] [place] [address] [facility] Cheyenne Castillo - 06/09/2012 7:22 PM PDTAMR 311, eta 15, 76YOM, c/o nosebleed, coming from [place], gcs 1 5, sats 98% 4L, hr 93, rr 22, bp 114/76, IV est, CBG 97, [facility] Colin Lynch - 06/09/2012 6:47 PM PDTReq ed to ed non trauma transfer. Connecting Dr pena . 76 yom, has a recent pneumonia, has 2 packing in R joya now and still bleeding around it. Has black strings coming out the side. Some oozing and bleeding. C/o bleeding all day. [facility] has no ENT germination worker, Dr Pena accepts the pt. Paged Grp 18, charge and admitting. Electro nically signed by Colin Lynch at 06/09/2012 6:49 PM PDTdocumented in this encounter Plan of Treatment Not on [...] | | | een | | | [id number] | | | | | | 3 [...] + + + | Please click | [place] [facility] | | on view image for the detailed interpretation from [employer] results. | CARDIOLOGY | + + + + + + + + | Performing | Address | City/State/Zipcode | Phone Number | | Organization | | | | + + + + + | [facility] | [address] | [place], [place] | | | CARDIOLOGY | [address] | [address] | | + + + + + RAINBOW HOLD TUBE - PURPLE TOP (06/13/2012 7:17 PM PDT) + + | Specimen | + + | Blood - Blood | + + + + + + + | Performing | Address | City/State/Zipcode | Phone Number | | Organization | | | | + + + + + | [facility] | [address] | [place] [address] | | | SERVICES, CORE | [address] [...] | | | LABORATORY | | | [place] | | | SERVICES, | | | [...] the MDRD equation recommended by the | [facility] | | National Kidney Disease Education Program. [...] | + + + + + | [facility] | [address] | [place] [address] | | | SERVICES, CORE | [address] | | | + + + + + TROPONIN I, PLASMA (06/13/2012 7:17 PM PDT) + +-------+ + + + | Component | Value | Ref Range | Performed | Pathologist | | | | | At | Signature | + +-------+ + + + | TROPONIN I | <0.02 | <0.80 ng/mL | [facility] | | | | | | LABORATORY [...] | + + + + + | [facility] | [address] | [place] [address] | | | SERVICES, CORE | [address] | | | + + + + + MAGNESIUM, PLASMA (06/13/2012 7:17 PM PDT) + +---------+ + + + | Component | Value | Ref Range | Performed | Pathologist | | | | | At | Signature | + +---------+ + + + | MAGNESIUM,P | 1.4 (L) | 1.8 - 2.5 mg/dL | [facility] | | | [facility] | | | LABORATORY | | | [...] | + + + + + | [facility] | [address] | [place] [address] | | | SERVICES, CORE | [address] | | | + + + + + OPERATION RECORD (06/13/2012 3:45 PM PDT) + + | Transcriptions | + + | Janeth Casiano MD - 06/12/2012 11:40 PM PDT Date: | | 06/11/2012ttending Surgeon: Fredrick Cherry M.D.Shop Repairer(s): | | Janeth Casiano M.D. | | [...] | irrigation.Anesthesia:General.Blood Loss:25 cc.Complications:None | | apparent.Specimens:None.Drains:Quarter-inch Jerome in right medial orbital | | incision.Indications:Mr. [...] of Avitene along the ethmoid bone. Aquarter-inch Jerome was | | then placed and the wound was closed in layersusing interrupted 4-0 Vicryl deep dermals | | and 5-0 fast-absorbing gut forthe skin.We then turned to the nasal portion. The Vargas | | catheter that had beenplaced in [...] | | Elmer Casiano.Fredrick Cherry M.D.LALA / [id number] / [id number] / [id number] / T: | | 06/12/2012 | |superior [...] then turned to the nasal portion. The Vargas catheter that had been | |placed in [...] just anterior to | |this. Using a [place] elevator we then made an incision through [...] a small gauze was placed over the Jerome | |drain in the right medial Jimenez [...] | |Fredrick Cherry M.D. | | | |LALA / HS | |[id number] / [id number] / [id number] / | | | | | + [...] [facility] | [address] | [place] [address] | | | SERVICES, CORE | [address] [...] | | | | | on 2013a 002. | | | | + + + + + + + + | Specimen | + + | Blood - Blood | + + + + + + + | Performing | Address | City/State/Zipcode | Phone Number | | Organization | | | | + + + + + | [facility] | [address] | [place] [address] | | | SERVICES, CORE | [address] [...] | + + + + + | [facility] | [address] | [place] [address] | | | NAYELI, RAFAEL | [address] | | | + + + + + YANG DELUNA (06/11/2012 8:10 PM PDT) + + + + + + | Component | Value | Ref Range | Performed | Pathologist | | | | | At | Signature | + + + + + + | OSMOLALITY | 287.5 | 275 - 295 | [facility] - | | | VENOUS, POC | | mmol/kg | [facility] | | | | | [...] | | VENOUS, POC | | | CESAR, POINT | [...] [facility] | [address] | [place], [place] | | | CESAR POINT OF CARE | [address] | [address] | | | TESTS | | | | + + + + + YANG BOYKIN (06/11/2012 8:03 PM PDT) + + + [...] [facility] | [address] | [place], [place] | | | [facility] | [facility] | [address] | | | TESTS | | | [...] + + + + | PRODUCT | [id number] | | [facility] | | | UNIT [...] + + + + | BLOOD | [id number] | | [facility] | | | PRODUCT [...] | + + + + + | [facility] DEPARTMENT OF | [address] | [place] [address] | | | PATHOLOGY | [address] [...] + + + + | PRODUCT | [id number] | | [facility] | | | UNIT [...] + + + + | BLOOD | [address]0314 | | [facility] | | | PRODUCT [...] DEPARTMENT OF | [address] | [place] [address] | | | PATHOLOGY | [address] [...] view image for the detailed interpretation from [employer] results. | CARDIOLOGY | + + + + + + + + | Performing | Address | City/State/Zipcode | Phone Number | | Organization | | | | + + + + + | [facility] | [address] | [place], [place] | | | CARDIOLOGY | [address] | [address] | | + + + + + [...] [facility] | [address] | [place] [address] | | | SERVICES, CORE | [address] [...] | + + + + + | [facility] | [address] | [place] [address] | | | SERVICES, [facility] | [address] | | | + + + + + PLATELET COUNT, WHOLE BLOOD (06/11/2012 4:02 AM PDT) + + + + + + | Component | Value | Ref Range | Performed | Pathologist | | | | | At | Signature | + + + + + + | PLATELET | Comment: Platelet count | 150 - 400 K/cu | [facility] | | | COUNT | not available; many | mm | LABORATORY | | | | platelet clumps. This | | SERVICES, | | | | is a corrected result. | | CORE | | | | Previous result was 164 | | | | | | on 06/11/2012t 0442. | | | | + + + [...] | + + + + + | [facility] | [address] | [place] [address] | | | SERVICES, CORE | [address] [...] + + + + | PRODUCT | [id number] | | [facility] | | | UNIT [...] + + + + | BLOOD | 75020 | | [facility] | | | PRODUCT [...] + + + + + | [facility] | [address] | [place] [address] | | | PATHOLOGY | [address] [...] + + + + | PRODUCT | [id number] | | [facility] | | | UNIT [...] + + + + | BLOOD | [address] | | [facility] | | | PRODUCT [...] DEPARTMENT OF | [address] | [place] [address] | | | PATHOLOGY | [address] [...] + + + + | PRODUCT | [id number] | | [facility] | | | UNIT [...] + + + + | BLOOD | 31[address] | | [facility] | | | PRODUCT [...] DEPARTMENT OF | [address] | [place], [place] [address] | | | PATHOLOGY | [address] [...] + + | [facility] | [address] [facility] | [place] [address] | | | SERVICES, CORE | [address] [...] | | | LABORATORY | | | [place] | | | SERVICES, | | | [...] | + + + + + | [facility] | [address] | [place] [address] | | | SERVICES, [facility] | [address] | | | + [...] [facility] | [address] | [place] [address] | | | SERVICES, CORE | [address] [...] | + + + + + | 20x200 | [address] | [place] [address] | | | SERVICES, CORE | [address] [...] | | | | | | M.D. WEAVING INSTRUCTOR SURGEONS: | | | | | | Minor Duran, | | | | | | M.D. [...] | | | | | Bentson wire,a 6-Djiboutian | | | | | | short sheath was | | | | | | placed. Through the | | | | | | 6-Djiboutian shortsheath, a | | | | | | 6-Djiboutian Envoy was | | | | | [...] | | | | | | MINOR DURAN MD | | | | | | [...] | | | | | | MINOR DURAN | | | | | | 06/10/2012 [...] [facility] | [address] | [place] [address] | | | SERVICES, | [address] [...] + | [facility] | [address] | [place] [address] | | | SERVICES, | [address] [...] + | [facility] | [address] | [place] [address] | | | SERVICES, CORE | [address] | | | + + + + + CHEM 8 W/H&HYANG (06/09/2012 8:55 PM PDT) + +---------+ + [...] [facility] | [address] | [place], [place] | | | [facility] | [address] | [address] | | | TESTS | | | [...] +---+---+ + +-------+ +-------+---+---+ | diphenhydrAMINE (aka BENADRYL) | Given | 06/13/19 | 50 mg [...] injection 1 dose, | | | Starting [facility] 06/09/12 at 2155, | | | Until [facility] 06/09/12 at 2157 | | + +---+ | | | + +---+ + +-------+ +---------+---+---+ | ferrous sulfate tablet 325 mg | Given | 04/23/20 | 325 mg | | | | [...] | | | + +---+ | HYDROmorphone (aka DILAUDID) | | | injection 1 dose, [...] PDT | | | | | dose, Wed06/10/12 at 1415 | | | | | | + +-------+ +--------+---+---+ +---+---+ | | | +---+---+ + +---------+ +-------+-------+---+ | lactated ringers IV 100 mL/hr, | New Bag | 06/11/19 | 100 | 100 | | | intravenous, CONTINUOUS, | | 13 2:13 | mL/hr | mL/hr | | | Starting Wed06/10/12 at 0145, | | AM PDT [...] mL/hr | mL/hr | | | Starting 06/10/12 at 2200, | | AM PDT | | | | | Until 06/12/12 at 1015 | | | | [...] | +---+---+ + +---------+ +--------+--------+---+ | LORazepam (aka ATIVAN) | New Bag | 06/12/19 | [...] PDT | | | | | Starting Wed06/10/12 at 1156, | | | | | | | Until Wed06/10/12 at 1421, | | | | | [...] 06/11/12 at 1020, | | | Until 06/11/12 at 1026 | | + +---+ | [...] | +---+---+ + +---------+ +------+--------+---+ | ondansetron (mindya ZOFRAN) | New Bag | 06/13/19 | [...] | | + +---+ | ondansetron (aka ZOFRAN) | | | injection 1 dose, Starting [...] | | | | | 0130, Until Wed06/13/12 at 1529, | | | | | [...] | | | % nasal spray 2 Big Sky 2 spray, | | 13 9:01 | [...] | | | | | 0158, Until 06/14/12 at 2150, | | | | | | | nausea/vomiting | | | | | | + +---------+ +---------+--------+---+ +---------+ +---------+--------+---+ | | 06/13/19 | 6.25 mg | mL/hr | | | | 13 11:22 | | | | | | AM PDT | | | | +---------+ +---------+--------+---+ | New | 06/11/19 | 12.5 mg | mL/hr | | | | 13 10:10 | | | | | | PM PDT | | | | +---------+ +---------+--------+---+ +---+---+ | | | +---+---+ + +-------+ + +---+---+ | sodium chloride (aka OCEAN) | Given | 06/15/19 | 2 sprays | | | | 0.65 % nasal spray 2 Big Sky 2 | | 13 2:17 | | [...]
--- OUTSIDE RECORDS SUMMARY | ~2019-10-20 | XMS | Encounter Summary ---
Demographics + + + | Address | [address] | | | [place] [address] | + + + | Home Phone [...] Organization | [facility] [...] Providers + +------+ + | Care Administrative Assistant Receptionist Name | Role | Phone | + [...] + + | 08/06/ | Refill | [facility] | Jorje Rutledge | Medication Refill | | 2018 | | [address] | [address] | | | | | [place] | [address] | | | | | [address] | [place] [address] | | | | | [phone] | [phone] | | | | | | | [...] | | | | | [place] [address] | | | | | | [phone] | | | | | | | | +--------+---------+ + + + documented as of this encounter Visit Diagnoses Not on filedocumented in this encounter"
--- OUTSIDE RECORDS SUMMARY | ~2019-10-20 | XMS | Encounter Summary ---
Demographics + + + | Address | [address] | | | [place] [address] | + + + | Home Phone [...] Organization | [facility] [...] | + + + + + | Cnadis Beyer | ECON | NA | | | | | FILEMON LIND | | + + + + + Care Team Providers + +------+ + | Care Pin Attacher Name | Role | Phone | + +------+ + | Jason Read | PCP | | | MD | | | + +------+ + Reason for Visit +---------+--------+ + | Reason | Onset | Comments | | | Date | | +---------+--------+ + | Results | 08/08/ | | | | 2020 | | +---------+--------+ + Encounter Details +--------+ + + + + | Date | Type | Department | Care Team | Description | +--------+ + + + + | 08/08/ | Telephone | [facility] | Jorje Rutledge | Results | | 2019 | | [address] | [address] | | | | | [place] | [address] | | | | | [address] | [place] [address] | | | | | [phone] | [phone] | | | | | | | [...] this encounter Miscellaneous Notes Telephone Encounter - Dina Garcia RN - 08/14/2019 11:06 AM PDTDr Aamir called Diego and reviewed results of CT. He will follow up in September 2019 for cystoscopy as scheduled. El ectronically signed by Dina Garcia RN at 08/14/2019 11:06 AM PDTTelephone Encounter - Dina Garcia RN - 08/14/2019 10:26 AM PDTPatient called again, upset he's not been c alled with CT results of CT done at [facility] 08/04/19. Images in [employer] but NOT [employer]. Called Emerita in [facility] Image Library and she confirms receipt of CT report that was faxed to the on 08/08/19, she will load it into [employer] now. elephone Encounter - Sanam Waddell Agricultural Services Director - 9:42 AM PDTPatient called wondering about CT Results. Received Report from [facility] and images are being pushed to [employer]. documented in this encounter Plan of Treatment +--------+---------+ + + + | Date | Type | Specialty | Care Team | Description | +--------+---------+ + + + | 12/26/ | Office | Urology | Jorje Rutledge | | | 2020 | Visit | | [address] | | | | | | [place] | | | | | | [place] [address] | | | | | | [phone] | | | | | | | | +--------+---------+ + + + documented as of this encounter Visit Diagnoses Not on filedocumented in this encounter"
--- OUTSIDE RECORDS SUMMARY | ~2019-10-20 | XMS | Encounter Summary ---
Demographics + + + | Address | [address] | | | [place] [address] | + + + | Home Phone [...] | Organization | [facility] [...] Team Providers + +------+ + | Care Information Clerk Name | Role | Phone | [...] [place], | | | | | | [address] | [place] [address] | | | | | | [place], | Phone: | | | | | | [place] [address] | [phone] | | | | | | | Fax: | | | | | | | [phone] | +--------+ + + + + + Encounter Details +--------+---------+ + + + | Date | Type | Department | Care Team | Description | +--------+---------+ + + + | 12/30/ | Office | [facility] | Jorje Rutledge | Prostate cancer | | 2016 | Visit | [address] | [address] | (HCC) (Primary Dx) | | | | [place] | [place] | | | | | [address] | [facility] [place] [id number] | | | | | [phone] | [phone] | | | | | | | [...] a patient of Dr. Mercedez Barkley in [place] for many years. He originally had a [...] Foot fracture (02/2012); SVT (supraventricular tachycardia) ([facility]) (01/2014); Depression; Prostate cancer ([facility]) (2007) ; COPD (chronic obstructive pulmonary disease) ([facility]); Pneumonia (05/2012); Heart murmur; Rima racts, bilateral; [...] Take by mouth. 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 documented in th is encounter Plan of Treatment +--------+---------+ + + + | Date | Type | Specialty | Care Team | Description | +--------+---------+ + + + | 12/26/ | Office | Urology | Jorje Rutledge | | | 2020 | Visit | | MD [address] | | | | | | [address] [place] [address] | | | | | | [place] [id number] | | | | | | [phone] | | | | | | | [...] CONF | e | 9:04 AM | ([facility]) | procedure are in the | [...] 1.001 - 1.030 | | | | [place], | | | | | | UA, [...]
--- OUTSIDE RECORDS SUMMARY | ~2019-10-20 | XMS | Encounter Summary ---
Demographics + + + | Address | [address] | | | [place] [address] | + + + | Home Phone [...] Team Providers + +------+ + | Care Accounts Receivable Processor Name | Role | Phone | + +------+ + | Parviz Brar DO | PCP | | + +------+ + Encounter Details +--------+ + + + + | Date | Type | Department | Care Team | Description | +--------+ + + + + | 03/06/ | Hospital | [facility] | [place], | Pneumonia of left | | 2016 | Encounter | MED CTR XRAY [address] | Becca Segura MD | lower lobe due to | | | | [place] | | infectious organism | | | | [place] [address] | | | | | | [phone] | | | +--------+ + + + [...] | | 0 | | | | (LUPRON IJ) | | | | | 6 | [...] | | | | | [place] [address] | | | | | | [phone] | | | | | | | [...] [address] | [place] | [phone] | | [facility] | | [address] | | | - IMAGING | | | | + + + + + documented in this encounter Visit Diagnoses + + | Diagnosis | + + | Pneumonia of left lower lobe due to infectious organism | + + documented in this encounter"
--- OUTSIDE RECORDS SUMMARY | ~2019-10-20 | XMS | Encounter Summary ---
Demographics + + + | Address | [address] | | | [place] [address] | + + + | Home Phone [...] Organization | [facility] [...] Team Providers + +------+ + | Care Food Counter Worker Name | Role | Phone | + +------+ + PCP | Unavailable | + +------+ + Encounter Details +--------+ + + + + | Date | Type | Department | Care Team | Description | +--------+ + + + + | 12/01/ | Abstract | [place] [facility] | [place], | | | 2011 | | Conversion Location | MD [address] | | | | | [address] | [place] [address] | | | | | [place], [place] | [phone] | | | | | [address] | | | | | | [phone] | | | +--------+ + + + [...] | | | | | [place] [address] | | | | | | [phone] | | | | | | | | +--------+---------+ + + + documented as of this encounter Visit Diagnoses Not on filedocumented in this encounter"
--- OUTSIDE RECORDS SUMMARY | ~2019-10-20 | XMS | Encounter Summary ---
Demographics + + + | Address | [address] | | | [place] [address] | + + + | Home Phone [...] | Organization | [facility] [...] Team Providers + +------+ + | Care Handbook Writer Name | Role | Phone | + +------+ + PCP | Unavailable | + +------+ + Encounter Details +--------+ + + + + | Date | Type | Department | Care Team | Description | +--------+ + + + + | 10/21/ | Hospital | [facility] | [place], | | | 2010 | Encounter | MED CTR GENERIC OP | Becca Segura MD | | | | | CONV DEPT [address] | | | | | | [place], | | | | | | [place] [address] | | | | | | [phone] | | | +--------+ + + + [...] documented as of this encounter Miscellaneous Notes Pulmonary Function - Becca Castro MD - 10/21/2010 10:35 AM PDTDATE: 10/21/2010 PULMONARY FUNCTION TEST PRIMARY CARE PROVIDER: Hebert Brar DO. SPIROMETRY: Prior to administration of inhaled bronchodilator, FVC was normal at 5.79 L, o r 123% of predicted. FEV1 was mildly reduced at 2.85 L, or 78% of predicted. FEV1 to FVC ra arnold was reduced at 4 9%. After administration of inhaled bronchodilator, FVC decreased by 2 % to 5.68 L, or 121% of predict ed. FEV1 increased by 11% to 3.17 L, or 87% of predicted. F EV1 to FVC ratio remained reduced at 56%. LUNG VOLUMES: Total lung capacity was normal at 8.40 L, or 113% of predicted. Residual vol ume was al so normal at 2.61 L, or 100% of predicted. RV TLC ratio was normal at 31%, or 85 % of predicted. DIFFUSION CAPACITY: Diffusion capacity, not corrected for measured hemoglobin, was moderat bridget reduce d at 16.3 mL/mmHg per minute or 48% of predicted. IMPRESSION: Spirometry is consistent with mild obstructive lung disease without a signific ant respon se to inhaled bronchodilator, though it should be noted that the increase in FEV 1 fell just short of significant. Lung volume testing is normal. Diffusion capacity testing is moderately reduced and is n ot corrected for measured hemoglobin. DICTATED BY: Becca Castro MD Pulmonary Medicine JOB #: [id number] EXT JOB #:[id number] cc: Hebert Brar DO <Electronically Signed by Becca Castro MD> 10/21/102008 documented in this encounter Plan of Treatment +--------+---------+ + + + | Date | Type | Specialty | Care Team | Description | +--------+---------+ + + + | 12/26/ | Office | Urology | Jorje Rutledge | | | 2020 | Visit | | MD [address] | | | | | | [address] [place] | | | | | | [place] [address] | | | | | | [phone] | | | | | | | | +--------+---------+ + + + documented as of this encounter Visit Diagnoses Not on filedocumented in this encounter"
--- OUTSIDE RECORDS SUMMARY | ~2019-10-20 | XMS | Encounter Summary ---
Demographics + + + | Address | [address] | | | [place] [address] | + + + | Home Phone [...] Team Providers + +------+ + | Care Team Driver Name | Role | Phone | + +------+ + | Jason Read | PCP | | | MD | | | + +------+ + Reason for Visit + +--------+ + | Reason | Onset | Comments | | | Date | | + +--------+ + | Appointment | 03/07/ | | | | 2020 | | + +--------+ + Encounter Details +--------+ + + + + | Date | Type | Department | Care Team | Description | +--------+ + + + + | 03/07/ | Telephone | [facility] [place] [facility] | Jorje Rutledge | Appointment | | 2020 | | [address] | [address] | | | | | [place] | [place] | | | | | [address] | [place] [address] | | | | | [phone] | [phone] | | | | | | | [...] this encounter Miscellaneous Notes Telephone Encounter - Alicia Maier - 03/08/2019 8:18 AM PSTPatient called and lvm and stated [facility] [place] [facility] get his labs drawn.Electronicall y signed by Alicia Maier at 03/08/2019 8:23 AM PSTTelephone Encounter - Teresa Smith Stroboroma Operator - 03/07/2019 4:18 PM PSTLeft call back message. Reason for c all is regarding patients upcoming appointment on 03/13/2019 with labs prior. Also need to ve rify if he [facility] [place] or if he will get them done here. P STdocumented in this encounter Plan of Treatment +--------+---------+ + + + | Date | Type | Specialty | Care Team | Description | +--------+---------+ + + + | 12/26/ | Office | Urology | Jorje Rutledge | | | 2020 | Visit | | [address] | | | | | | [place] | | | | | | [place] [address] | | | | | | [phone] | | | | | | | | +--------+---------+ + + + documented as of this encounter Visit Diagnoses Not on filedocumented in this encounter"
--- OUTSIDE RECORDS SUMMARY | ~2019-10-20 | XMS | Encounter Summary ---
Demographics + + + | Address | [address] | | | [place] [address] | + + + | Home Phone [...] | Author | [facility] | | | and [place] | + [...] + +------+ + | Care Electric Motor Control Assembler Name | Role | Phone | + +------+ + | Parviz Brar DO | PCP | | + +------+ + Reason for Visit +--------+--------+ + | Reason | Onset | Comments | | | Date | | +--------+--------+ + | Other | 02/18/ | Breo | | | 2014 | | +--------+--------+ + Encounter Details +--------+ + + + + | Date | Type | Department | Care Team | Description | +--------+ + + + + | 02/18/ | Telephone | [facility] [place] | [place], | Other ([place]) | | 2014 | | PULMONARY [address] | Becca Segura MD | | | | | [place], | | | | | | [place] [address] | | | | | | [phone] | | | +--------+ + + + [...] Telephone Encounter - Rupa Watt RN - 02/18/2015 8:48 AM PSTCalled Diego as we recei cathy a refill request for Qvar and the last office visit note states that he was to change to Breo. He states that his insurance will not pay for the Breo until after the of the yea r so he chooses to continue the Qvar until then. He does intend to change medications. Diego a lso informed that he was an inpatient at [facility] in [place] over the past week and was treated for pneumonia. He is feeling much better now. documented in this encounter Plan of Treatment +--------+---------+ + + + | Date | Type | Specialty | Care Team | Description | +--------+---------+ + + + | 12/26/ | Office | Urology | Jorje Rutledge | | | 2019 | Visit | | [address] | | | | | | [address] | | | | | | [place] [address] | | | | | | [phone] | | | | | | | | +--------+---------+ + + + documented as of this encounter Visit Diagnoses Not on filedocumented in this encounter"
--- OUTSIDE RECORDS SUMMARY | ~2019-10-20 | XMS | Encounter Summary ---
Demographics + + + | Address | [address] | | | [place] [address] | + + + | Home Phone [...] Author + + + | Author | [facility] | | | and [place] | + + + | Organization | [facility] [...] Team Providers + +------+ + | Care Riveting Machine Operator Automatic Name | Role | Phone | + +------+ + | Parviz Brar DO | PCP | | + +------+ + Reason for Visit +---------+--------+ + | Reason | Onset | Comments | | | Date | | +---------+--------+ + | Results | 04/17/ | exertional oximetry | | | 2013 | | +---------+--------+ + Encounter Details +--------+ + + + + | Date | Type | Department | Care Team | Description | +--------+ + + + + | 04/17/ | Telephone | [facility] [place] | [place], | Results (exertional | | 2013 | | PULMONARY [address] | Becca Segura MD | oximetry) | | | | [place], | | | | | | [place] [address] | | | | | | [phone] | | | +--------+ + + + [...] Telephone Encounter - Rupa Watt RN - 04/17/2013 2:51 PM PSTCalled Diego and advised per Dr Castro that no O2 is needed with exertion. Okay per patient.Electronically chela d by Rupa Watt RN at 04/17/2013 2:51 PM PSTdocumented in this encounter Plan of Treatment +--------+---------+ + + + | Date | Type | Specialty | Care Team | Description | +--------+---------+ + + + | 12/26/ | Office | Urology | Jorje Rutledge | | | 2019 | Visit | | [address] | | | | | | [address] | | | | | | [place] [address] | | | | | | [phone] | | | | | | | | +--------+---------+ + + + documented as of this encounter Visit Diagnoses Not on filedocumented in this encounter"
--- OUTSIDE RECORDS SUMMARY | ~2019-10-20 | XMS | Encounter Summary ---
Demographics + + + | Address | [address] | | | [place] [address] | + + + | Home Phone [...] Providers + +------+ + | Care Cloth Checker Name | Role | Phone | + +------+ + | Parviz Brar DO | PCP | | + +------+ + Encounter Details +--------+ + + + + | Date | Type | Department | Care Team | Description | +--------+ + + + + | 06/16/ | Hospital | [facility] | Conversion | Pain | | 2017 | Encounter | CONVERSION [address] | Transaction, | | | | | [address] | Provider Unknown | | | | | [place], [place] | [phone] | | | | | [address] | | | | | | [phone] | | | +--------+ + + + [...] | | | | | [place] [address] | | | | | | [phone] | | | | | | | [...]
--- OUTSIDE RECORDS SUMMARY | ~2019-10-20 | XMS | Encounter Summary ---
Demographics + + + | Address | [address] | | | [place] [address] | + + + | Home Phone [...] Team Providers + +------+ + | Care Mathematics Faculty Member Name | Role | Phone | + +------+ + | Parviz Brar DO | PCP | | + +------+ + Reason for Visit +--------+--------+ + | Reason | Onset | Comments | | | Date | | +--------+--------+ + | Other | 03/12/ | | | | 2015 | | +--------+--------+ + Encounter Details +--------+ + + + + | Date | Type | Department | Care Team | Description | +--------+ + + + + | 03/12/ | Telephone | [facility] [place] | [place], | Other | | 2015 | | PULMONARY [address] | Becca Segura MD | | | | | [place], | | | | | | [place] [address] | | | | | | [phone] | | | +--------+ + + + [...] this encounter Miscellaneous Notes Telephone Encounter - Jerman Mary - 03/12/2015 1:23 PM PSTPatient called to say thank you so much for the referral to urology. He has an appointment with Dr. Rutledge!Mitzya samiry signed by Mary Stoll at 03/12/2015 1:24 PM PSTdocumented in this encounter Plan of [...] | | | | | [place] [address] | | | | | | [phone] | | | | | | | | +--------+---------+ + + + documented as of this encounter Visit Diagnoses Not on filedocumented in this encounter"
--- OUTSIDE RECORDS SUMMARY | ~2019-10-20 | XMS | Encounter Summary ---
Demographics + + + | Address | [address] | | | [place] [address] | + + + | Home Phone [...] Team Providers + +------+ + | Care Binder Roller Name | Role | Phone | + +------+ + | Jason Read | PCP | | | MD | | | + +------+ + Encounter Details +--------+ + + + + | Date | Type | Department | Care Team | Description | +--------+ + + + + | 05/31/ | Abstract | [facility] [place] [facility] | Jorje Rutledge | | | 2019 | | [address] | [address] | | | | | [place] | [address] [place] | | | | | [address] | [place] [address] | | | | | [phone] | [phone] | | | | | | | [...] | | | | | [place] [address] | | | | | | [phone] | | | | | | | [...] + | REFERENCE LAB | [address] [facility] | [place] | [phone] | | [facility] | | [address] | | + + + + + | REFERENCE LAB | [address] [facility] | [place], [place] | [phone] | | [facility] | | [address] | | + + + + + [...] + + + | REFERENCE LAB | [facility] [address] [place] | [place] | [phone] | | [place] [facility] | | [address] | | + + + + + | REFERENCE LAB | [facility] [address] | [place] | [phone] | | [place] | | [address] | | + + + + + documented in this encounter Visit Diagnoses Not on filedocumented in this encounter"
--- OUTSIDE RECORDS SUMMARY | ~2019-10-20 | XMS | Encounter Summary ---
Demographics + + + | Address | [address] | | | [place] [address] | + + + | Home Phone | | + + + | Preferred Language | Unknown | + + + | Marital Status | | + + + | Hindu Affiliation | 1076 | + + + | Race | White | + + + | Ethnic Group | Not or | + + + Author + + + | Author | [facility] | | | and [place] | + + + | Organization | [facility] | | | [...] Providers + +------+ + | Care Electric Arc Welder Name | Role | Phone | + +------+ + | Parviz Brar DO | PCP | | + +------+ + Encounter Details +--------+ + + + + | Date | Type | Department | Care Team | Description | +--------+ + + + + | 04/08/ | Abstract | [facility] [place] [facility] | Aamir Jorje | | | 2015 | | [address] | [address] | | | | | [place] | [address] | | | | | [address] | [place] [address] | | | | | [phone] | [phone] | | | | | | | [...] | | | | | [place] [address] | | | | | | [phone] | | | | | | | | +--------+---------+ + + + documented as of this encounter Procedures + +--------+ + + + | Procedure Name | Priori | Date/Time | Associated Diagnosis | Comments | | | ty | | | | + +--------+ + + + | EXTERNAL LAB: PSA, | Routin | 04/04/2015 | | Results for this | | SCREEN | e | 9:15 AM | | procedure are in the | | | | PST | | results section. | + +--------+ + + + documented in this encounter Results External Lab: PSA, Screen (04/04/2015 9:15 AM PST) + +-------+ + + + | Component | Value | Ref Range | Performed | Pathologist | | | | | At | Signature | + +-------+ + + + | PSA, | 3.39 | 0 - 4 | [facility] | | | External | | | [facility] | | | | | | [facility] | | | | | [facility] - | | | | | | LABORATORY | | + +-------+ + + + + + | Specimen | + + | Blood specimen | | (specimen) | + + + + + + + | Performing | Address | City/State/Zipcode | Phone Number | | Organization | | | | + + + + + | [facility] | [address] | [place] | [phone] | | [facility] | | [address] | | | - LABORATORY | | | | + + + + + documented in this encounter Visit Diagnoses Not on filedocumented in this encounter"
--- OUTSIDE RECORDS SUMMARY | ~2019-10-20 | XMS | Encounter Summary ---
Demographics + + + | Address | [address] | | | [place] [address] | + + + | Home Phone [...] | Organization | [facility] [...] Team Providers + +------+ + | Care Cilnical Scientist Name | Role | Phone | [...] + + | 12/27/ | Refill | [facility] [place] [facility] | Jorje Rutledge | Medication Refill | | 2018 | | [address] | [address] | | | | | [place] | [place] | | | | | [address] | [place] [address] | | | | | [phone] | [phone] | | | | | | | [...] | | | | | [place] [address] | | | | | | [phone] | | | | | | | | +--------+---------+ + + + documented as of this encounter Visit Diagnoses Not on filedocumented in this encounter"
--- OUTSIDE RECORDS SUMMARY | ~2019-10-20 | XMS | Encounter Summary ---
Demographics + + + | Address | [address] | | | [place] [address] | + + + | Home Phone [...] | Organization | [facility] [...] Team Providers + +------+ + | Care Mutuel Machine Operator Name | Role | Phone [...] Closed | | Radiology | Diagnoses | Lyndon Rutledge | | | | | Prostate | Gene | HOSPITAL | | | | | cancer (HCC) | MD Tim | [address] | | | | | Gross | [address] | [place] | | | | | hematuria | [place] | [place] | | | | | Procedures | [place] | [address] | | | | | CT Urogram w | [address] | Phone: | | | | | wo Contrast | Phone: | [phone] | | | | | [address] | [phone] | Fax: | | | | | SCAN,ABDOMEN | Fax: | [phone] | | | | | AND | [phone] | | | | | | PELVIS,COMBO | | | +--------+--------+ + + + + Reason for Visit +--------+--------+ + | Reason | Onset | Comments | | | Date | | +--------+--------+ + | Other | 07/23/ | | | | 2020 | | +--------+--------+ + Encounter Details +--------+ + + + + | Date | Type | Department | Care Team | Description | +--------+ + + + + | 07/23/ | Telephone | [facility] [place] | Jorje Rutledge | Yoko | | 2020 | | [address] | [address] | | | | | [place] | [place] | | | | | [address] | [place] [address] | | | | | [phone] | [phone] | | | | | | | [...] Miscellaneous Notes Telephone Encounter - Sanam Waddell Acid Operator - 07/24/2019 11:46 AM PDTRecord s received. Dr. Rutledge reviewed records and would like patient to get a CT scan and a cystos copy. Notified patient CT scan was pending and would notify him when authorized. Patient vianney ld like to complete test at [facility]. Notified prior auth team of change. Patient still needs cystoscopy appt for after CT. elephone Encounter - Sanam Waddell Acid Operator - 07/24/2019 10:[address] Rutledge, "Please try to find out exactly why he went to the emergency room over the week end. We can make a determination as to whether or not we need to follow-up here in the office, o r have him see his PCP." Called [facility] and requested records.Electronically s igned by Christ Lilly at 07/24/2019 10:54 AM PDTTelephone Encounter - Carmen Contreras - 07/24/2019 8:19 AM PDTPt called into office stating that over the weekend he was seen in the ER at [facility] in [place], [place]. He was wondering if he shoul d follow up with ? Please advise at [phone]. documented in this encounter Plan of Treatment +--------+---------+ + + + | Date | Type | Specialty | Care Team | Description | +--------+---------+ + + + | 12/26/ | Office | Urology | Jorje Rutledge | | | 2019 | Visit | | [address] | | | | | | [place] | | | | | | [place] [address] | | | | | | [phone] | | | | | | | | +--------+---------+ + + + + +---------+--------+ + + | Name | Type | Priori | Associated Diagnoses | Order Schedule | | | | ty | | | + +---------+--------+ + + | CT Urogram w wo | Imaging | Routin | Prostate cancer | Expected: | | Contrast | | e | (HCC) Gross | 07/24/2019, Expires: | | | | | hematuria | 07/24/2020 | + +---------+--------+ + + documented as of this encounter Visit Diagnoses + + | Diagnosis | + + | Prostate cancer (HCC) - Primary Malignant neoplasm of prostate | + + | Gross hematuria | + + documented in this encounter
--- OUTSIDE RECORDS SUMMARY | ~2019-10-20 | XMS | Encounter Summary ---
Demographics + + + | Address | [address] | | | [place] [address] | + + + | Home Phone [...] Team Providers + +------+ + | Care Foxing Cutting Machine Operator Name | Role | Phone | + +------+ + | Parviz Brar DO | PCP | | + +------+ + Reason for Visit +---------+--------+ + | Reason | Onset | Comments | | | Date | | +---------+--------+ + | Results | 04/02/ | | | | 2014 | | +---------+--------+ + Encounter Details +--------+ + + + + | Date | Type | Department | Care Team | Description | +--------+ + + + + | 04/02/ | Telephone | [facility] [place] | [place], | Results | | 2014 | | PULMONARY [address] | Becca Segura MD | | | | | [place], | | | | | | [place] [address] | | | | | | [phone] | | | +--------+ + + + [...] Telephone Encounter - Dina Garcia RN - 04/02/2014 5:[address] Castro reviewed 03/16/14 oximetry report and said it looks fine. He'll follow up 06/11 as scheduled. d ocumented in this encounter Plan of Treatment +--------+---------+ + + + | Date | Type | Specialty | Care Team | Description | +--------+---------+ + + + | 12/26/ | Office | Urology | Jorje Rutledge | | | 2019 | Visit | | [address] | | | | | | [place] | | | | | | [place] [address] | | | | | | [phone] | | | | | | | | +--------+---------+ + + + documented as of this encounter Visit Diagnoses Not on filedocumented in this encounter"
--- OUTSIDE RECORDS SUMMARY | ~2019-10-20 | XMS | Encounter Summary ---
Demographics + + + | Address | [address] | | | [place] [address] | + + + | Home Phone [...] + + + | Author | [facility] | | | and [place] | + + + | Organization | [facility] | | [...] Team Providers + +------+ + | Care Bus Aide Name | Role | Phone | + +------+ + | Parviz Brar DO | PCP | | + +------+ + Encounter Details +--------+ + + + + | Date | Type | Department | Care Team | Description | +--------+ + + + + | 06/16/ | Hospital | [facility] | Conversion | Pain | | 2017 | Encounter | CONVERSION [address] | Transaction, | | | | | [address] | Provider Unknown | | | | | [place], [place] | [phone] | | | | | [address] | | | | | | [phone] | | | +--------+ + + + [...] | | | | | [place] [address] | | | | | | [phone] | | | | | | | [...]
--- OUTSIDE RECORDS SUMMARY | ~2019-10-20 | XMS | Encounter Summary ---
Demographics + + + | Address | [address] | | | [place] [address] | + + + | Home Phone [...] Team Providers + +------+ + | Care Party Plan Selling Distributor Name | Role | Phone | [...] + | 03/13/ | Office | [facility] [place] | Offenstein, | COPD (chronic | | 2015 | Visit | PULMONARY [address] | Becca Segura MD | obstructive | | | | [place], | | pulmonary disease) | | | | [place] [address] | | (Primary Dx); | | | | [phone] | | Nocturnal hypoxemia | | | [...] PSTDo an overnight oxy gen test through [employer]. Call the [facility] before you pick it up to make sure th ey have a box available. You will apple picking supervisor a box at the [facility]. Do the test on 2 L. Wear [...] been doing okay. He did have a monitor and storage bin tender that showed he was having episod es [...] 1 1/2 months. He returns today for ro utine follow up. Currently he is able to [...] He is currently on 2 LPM at [facility]. He reports good compliance. [...] Pulmonary nodules Cataracts, bilateral Pneumonia 05/2012 hospitalized [facility] Shoulder fracture 02/2012 Foot fracture [...] home. No other animal exposures.Grew up in [place]. Then lived in [place]. Then move d to [place]. In the service lived in [facility] and [place]. No recent travel. Allergies: [...] into the lungs nightly. Respiratory Therapy Supplies [facility] Please provide an [...] made to ensure accuracy; however, inadvertent computerized brazing furnace operator errors may be pre sent. 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
--- OUTSIDE RECORDS SUMMARY | ~2019-10-20 | XMS | Encounter Summary ---
Demographics + + + | Address | [address] | | | [place] [address] | + + + | Home Phone [...] Team Providers + +------+ + | Care Ladies' Hat Trimmer Name | Role | Phone | + [...] | pulmonary | Becca B, | [address] | | | | | nodule | MD [address] [place] | | | | | Procedures | [address] | [place], [place] | | | | | CT Chest wo | [place], | [address] | | | | | Contrast | [place] [address] | Phone: | | | | | | | [phone] | | | | | | | Fax: | | | | | | | [phone] | +--------+--------+ + + + + Encounter [...] nodule (Primary Dx) | | | | [address] [place], | | | | | | [place] [address] | | | | | | [phone] | | | +--------+ + + + [...] | | | | | [place] [address] | | | | | | [phone] | | | | | | | | +--------+---------+ + + + documented as of this encounter Results CT Chest wo Contrast (09/06/2012 1:47 PM PDT) + + | Specimen | + + | | + + + + + | Narrative | Performed At | + + + | [facility] | [place] | | Department [address], [place] | [facility] | | [ rep [address]] [ rep [facility] | | [facility]] Signed | - IMAGING | | | | | Patient Name: OLGA LUCAS Physician: | | | MAGDA. : 1935 Age: 76 Sex: M Unit #: [id number] | | | Exam Date: 09/06/12 Location: [facility] | | | Report #: [id number] Page: | | | %(RAD)RES..mtdd.print.filter("pg") of %(RAD) | | | RES..mtdd.print.filter("tpg") | | | | | | Accession Number: [id number] | | | CT CHEST WITHOUT CONTRAST [...] Transcribed | | | Date/Time: 09/06/2012 16:10 Team Primary Care Physician: | | | <<Signature on File>> | | | | | | Gurdeep Diaz MD09/07/12 0729 <Electronically signed by | | | Gurdeep Diaz MD> Gurdeep Diaz MD 09/06/12 | | | 1347 Team Primary Care Physician: [employer] Rthzmgmsmzhce63/16/13 1610 | | | Becca Castro MD | | + + + + + + + + | Performing | Address | City/State/Zipcode | Phone Number | | Organization | | | | + + + + + | [facility] | [address] | [place] | [phone] | | [facility] | | [address] | | | - IMAGING | | | | + + + + + documented in this encounter Visit Diagnoses + + | Diagnosis | + + | Solitary pulmonary nodule - Primary | + + documented in this encounter
--- OUTSIDE RECORDS SUMMARY | ~2019-10-20 | XMS | Encounter Summary ---
Demographics + + + | Address | [address] | | | [place] [address] | + + + | Home Phone [...] + + + | Author | [facility] | | | and [place] | + + + | Organization | [facility] | | | [...] Providers + +------+ + | Care Legal Records Clerk Name | Role | Phone | + +------+ + PCP | Unavailable | + +------+ + Encounter Details +--------+ + + + + | Date | Type | Department | Care Team | Description | +--------+ + + + + | 03/06/ | Hospital | [facility] | | | | 1996 | Encounter | MED CTR XRAY [address] | | | | | | [address] [place] | | | | | | [place] [address] | | | | | | [phone] | | | +--------+ + + + [...] | | | | | [place] [address] | | | | | | [phone] | | | | | | | | +--------+---------+ + + + documented as of this encounter Visit Diagnoses Not on filedocumented in this encounter"
--- OUTSIDE RECORDS SUMMARY | ~2019-10-20 | XMS | Encounter Summary ---
Demographics + + + | Address | [address] | | | [place] [address] | + + + | Home Phone [...] + | Organization | [facility] | [...] Team Providers + +------+ + | Care Cyber Ops Planner Name | Role | Phone | [...] | 11/08/ | Refill | [facility] | Jorje Rutledge | Medication Refill | | 2017 | | [address] | [address] | | | | | [place] | [place] | | | | | [address] | [place] [address] | | | | | [phone] | [phone] | | | | | | | [...] | | | | | [place] [address] | | | | | | [phone] | | | | | | | | +--------+---------+ + + + documented as of this encounter Visit Diagnoses Not on filedocumented in this encounter"
--- OUTSIDE RECORDS SUMMARY | ~2019-10-20 | XMS | Encounter Summary ---
Demographics + + + | Address | [address] | | | [place] [address] | + + + | Home Phone [...] Team Providers + +------+ + | Care Radiological Health Specialist Name | Role | Phone | + +------+ + | Jason Read | PCP | | | MD | | | + +------+ + Reason for Visit Follow Up (Routine) +--------+--------+ + + + + | Status | Reason | Specialty | Diagnoses / | Referred By | Referred To | | | | | Procedures | Contact | Contact | +--------+--------+ + + + + | Closed | | Urology | Diagnoses | Roro, | Aamir, | | | | | Prostate | Jason | Gene Tim, | | | | | cancer (HCC) | MD Abhijit | [address] | | | | | [address]NA[address] | [address] | [address] | | | | | UP/ LABS | [address] | [place], | | | | | PRIOR | [place], | [place] [address] | | | | | Procedures | [place] | Phone: | | | | | FOLLOW UP | [address] | [phone] | | | | | | Phone: | Fax: | | | | | | [phone] | [phone] | | | | | | Fax: | | | | | | | [phone] | | +--------+--------+ + + + + Encounter Details +--------+---------+ + + + | Date | Type | Department | Care Team | Description | +--------+---------+ + + + | 03/13/ | Office | [facility] | Aamir Jorje | Prostate cancer | | 2020 | Visit | [address] | [address] | (HCC) (Primary Dx) | | | | [place] | [address] [place] | | | | | [address] | [place] [address] | | | | | [phone] | [phone] | | | | | | | [...] + + + | Blood Pressure | 116/60 | 03/13/2019 9:59 AM | | | | | PST | | + + + + + | Pulse | 62 | 03/13/2019 9:59 AM | | | | | PST | | + + + + + | Temperature | - | - | | + + + + + | Respiratory Rate | 16 | 03/13/2019 9:59 AM | | | | | PST | | + + + + + | Oxygen Saturation | - | - | | + + + + + | Inhaled Oxygen | - | - | | | Concentration | | | | + + + + + | Weight | 72 kg (158 lb 11.7 | 03/13/2019 9:59 AM | | | | oz) | PST | | + + + + + | Height | 177.8 cm (5' 10") | 03/13/2019 9:59 AM | | | | | PST | | + + + + + | Body Mass Index | 22.78 | 03/13/2019 9:59 AM | | | | | PST | | + + + + + documented in this encounter Progress Notes Jorje Rutledge MD - 03/13/2019 10:30 AM PSTFormatting of this note might be differen t from the original. Diego is a 83 y.o. male patient of Jason Read MD being seen today for a follow up fo r prostate cancer. He is a very pleasant gentleman, who is a patient of Dr. Mercedez Barkley in [place] for many years. He had a stage T2c, or [...] has currently been off of Lupron for 9 months (he had a 6-rosi h Lupron given in May 302018). He is having some moderate bladder outlet obstructive symptoms, with an IPSS score of 22, o n 1 Flomax a day. His PSA is 1.06, and his testosterone is still less than 12. He is not h aving any flank pain, or hematuria. He was recently discharged from the hospital with a GI bleed, requiring 5 units of blood. Past Medical History He has a past medical history of Actinic keratosis of scalp, Anemia, Benign prostatic hyper trophy, Bereavement without complication, C. difficile enteritis (2012), CAD (coronary arter y disease), Cataracts, bilateral, Clavicle fracture, COPD (chronic obstructive pulmonary dis ease) ([facility]), Depression, Dermatophytosis tinea capitis, Diverticulosis (01/2015), Essential hypertension, Foot fracture (02/2012), Gastritis (01/2015), GI bleed (01/2015), Heart murmur, Heartburn, Hiatal hernia (01/2015), History of rectal bleeding, Hypoxia, Insomnia, Internal bleeding (2017), Iron deficiency anemia, Kidney stone (2004), Lumbar disc herniation, Migra marcelino, Mood disorder ([facility]) of unknown (axis III) etiology, Nocturnal hypoxia, Osteoarthritis, Peptic ulcer disease, Pneumonia (05/2012), Prostate cancer ([facility]) (2007), Pulmonary nodules, Seborrheic dermatitis of scalp, Shoulder fracture (02/2012), Supplemental oxygen dependent, S VT (supraventricular tachycardia) ([facility]) (01/2014), TIA (transient ischemic attack), [...] Penicillins Medications: Outpatient Encounter Medications as of 03/13/2019 Medication Sig Dispense Refill albuterol (PROAIR HFA) 90 mcg/puff inhaler Inhale 2 puffs into the lungs every 6 hours as needed for Wheezing or Shortness of Breath. 1 Inhaler 11 albuterol 2.5 mg/3 mL nebulizer solution Take 2.5 mg by nebulization 2 times daily. amLODIPine (NORVASC) 10 MG tablet [DISCONTINUED] amLODIPine (NORVASC) 5 mg tablet Take one tablet by mouth once daily. (P atient not taking: Reported on 12/14/2018) ascorbic acid (VITAMIN C) 250 MG tablet Take by mouth. [DISCONTINUED] benzonatate (TESSALON) 100 mg capsule Calcium Carb-Cholecalciferol [...] powder Take by mouth. Respiratory Therapy Supplies [facility] Please provide an O2 [...] facility-administered encounter medications on file as of 03/13/2019. IPSS (International Prostate Symptom Score) 0=0 - Not at All 1=1 - Less than 1 in 5 times 2=2 - Less than half the time 3=3 - About half the time 4=4 - More than half the time 5=5 - Almost alwyas IPSS (INTERNATIONAL PROSTATE SYMPTOM SCORE) 08/31/2017 12/14/2018 03/13/2019 1. Incomplete Emptying - How often have you had the sensation of not emptying your bladder? 2 3 3 2. Frequency - How often have you had to urinate less than every two hours? 3 3 3 3. Intermittency - How often have you found you stopped and started again several times whe n you urinated? 3 3 3 4. Urgency - How often have you found it difficult to postpone urination? 2 3 3 5. Weak Stream - How often have you had a weak urinary stream? 3 2 4 6. Straining - How often have you had to strain to start urination? 2 2 3 7. Nocturia - How many times did you typically get up at night to urinate? 2 2 3 Total: 17 18 22 Quality of Life Due to Urinary Symptoms 0=0 - Delighted 1=1 - Pleased 2=2 - Mostly satisfied 3=3 - Mixed 4=4 - Mostly dissatisfied 5=5 - Unhappy 6=6 - Terrible QUALITY OF LIFE (URINARY) 08/31/2017 12/14/2018 03/13/2019 If you were to spend the rest of your life with your urinary condition just the way it is n ow, how would you feel about that? 2 2 3 PHYSICAL EXAM Vitals: BP 116/60 | Pulse 62 | Resp 16 | Ht 1.778 m (5' 10") | Wt 72 kg (158 lb 11.7 oz ) | BMI 22.78 kg/m General: Awake, alert, in no acute distress. Speech is fluent. Appears to be stated age. Lungs: Normal respiratory effort, no wheezing, no stridor, no tachypnea. Abdomen: Soft, nontender. Extremities: Non-edematous. Neuro: Awake, alert, oriented. Psychiatric: Mood and affect are normal. Skin: Warm and dry, no erythematous rash. DIAGNOSTIC DATA: Urinalysis is negative for blood, nitrites, and leukocyte esterase. 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 He is currently having difficulty with rec urrent GI bleeds. His recent PSA is quite low, and he is fairly asymptomatic. I did discus s the possibility of increasing tamsulosin to twice a day, and he will take this under consi deration. For now, we plan on observation alone, and he will return in May 2019, with updated metab olic panel and PSA blood tests. We discussed reinstituting androgen deprivation therapy whe n his PSA increases to the 5-10 range. Diego is instructed to resume his usual and customary care with his primary care provider. I asked Diego to notify me if there were any difficulties voiding, or UTI symptoms, or flank pain, or for any questions or concerns whatsoever. This document was generated in part using [employer] voice recognition software. Although ever y effort is made to edit the content, plater helper errors may occur. Occasional wrong word or [...] | | | | | [place] [address] | | | | | | [phone] | | | | | | | | +--------+---------+ + + + + +------+--------+ + + | Name | Type | Priori | Associated Diagnoses | Order Schedule | | | | ty | | | + +------+--------+ + + | Basic Metabolic | Lab | Routin | Prostate cancer | 1 Occurrences | | Panel | | e | (HCC) | starting 03/13/2019 | | | | | | until 03/13/2020 | + +------+--------+ + + | PSA, Diagnostic | Lab | Routin | Prostate cancer | 1 Occurrences | | | | e | (HCC) | starting 03/13/2019 | | | | | | until 03/13/2020 | + +------+--------+ + + documented as of this encounter Procedures + +--------+ + + + | Procedure Name | Priori | Date/Time | Associated Diagnosis | Comments | | | ty | | | | + +--------+ + + + | POCT URINALYSIS, | Routin | 03/13/2019 | Prostate cancer | Results for this | | AUTO WITH CONF | e | 10:18 AM | (HCC) | procedure are in the | | | | PST | | results section. | + +--------+ + + + | LABS - EXTERNAL SCAN | | 03/09/2019 | | Results for this | | | | 12:00 AM | | procedure are in the | | | | PST | | results section. | + +--------+ + + + documented in this encounter Results POCT Urinalysis (03/13/2019 10:18 AM PST) + + + + + + | Component | Value | Ref Range | Performed | Pathologist | | | | | At | Signature | + + + + + + | Color, UA, | Yellow | Yellow, Light | | | | POC | | Yellow | | | + + + + + + | Clarity, | Slightly Cloudy | | | | | UA, POC [...] 1.001 - 1.030 | | | | [place], | | | | | | UA, [...] | + + LABS - EXTERNAL SCAN (03/09/2019 12:00 AM PST) + + + | [...]
--- OUTSIDE RECORDS SUMMARY | ~2019-10-20 | XMS | Encounter Summary ---
Demographics + + + | Address | [address] | | | [place] [address] | + + + | Home Phone [...] Team Providers + +------+ + | Care Mental Health Coordinator Name | Role | Phone | + +------+ + PCP | Unavailable | + +------+ + Reason for Visit + +--------+ + | Reason | Onset | Comments | | | Date | | + +--------+ + | Appointment | 02/16/ | | | | 2011 | | + +--------+ + Encounter Details +--------+ + + + + | Date | Type | Department | Care Team | Description | +--------+ + + + + | 02/16/ | Telephone | [facility] [place] | [place], | Appointment | | 2011 | | PULMONARY [address] | Becca Segura MD | | | | | [place], | | | | | | [place] [address] | | | | | | [phone] | | | +--------+ + + + [...] this encounter Miscellaneous Notes Telephone Encounter - Kendra Morrissey - 02/17/2012 2:11 PM PSTLeft message for Diego nascimento follow up visit with Dr. Castro and CT scan for February. documented in this encounter Plan of Treatment +--------+---------+ + + + | Date | Type | Specialty | Care Team | Description | +--------+---------+ + + + | 12/26/ | Office | Urology | Jorje Rutledge | | | 2019 | Visit | | [address] | | | | | | [place] | | | | | | [place] [address] | | | | | | [phone] | | | | | | | | +--------+---------+ + + + documented as of this encounter Visit Diagnoses Not on filedocumented in this encounter"
--- OUTSIDE RECORDS SUMMARY | ~2019-10-20 | XMS | Encounter Summary ---
Demographics + + + | Address | [address] | | | [place] [address] | + + + | Home Phone [...] Author | [facility] | | | and [place] | + + + | Organization | [facility] [...] Team Providers + +------+ + | Care Media Relations Manager Name | Role | Phone | + +------+ + PCP | Unavailable | + +------+ + Encounter Details +--------+ + + + + | Date | Type | Department | Care Team | Description | +--------+ + + + + | 09/22/ | Hospital | [facility] | | | | 2007 - | Encounter | [facility] | | | | | | CENTER [address] | | | | 10/22/ | | [place] | | | | 2007 | | [address] | | | | | | [phone] | | | +--------+ + + + [...] | | | | | [place] [address] | | | | | | [phone] | | | | | | | | +--------+---------+ + + + documented as of this encounter Visit Diagnoses Not on filedocumented in this encounter"
--- OUTSIDE RECORDS SUMMARY | ~2019-10-20 | XMS | Encounter Summary ---
Demographics + + + | Address | [address] | | | [place] [address] | + + + | Home Phone [...] | NA | | | | | [place] | | + + + + + Care Team Providers + +------+ + | Care Banking Services Officer Name | Role | Phone | [...] | [place], | Medication Refill | | 2014 | | PULMONARY [address] | Becca Segura MD | | | | | [place], | | | | | | [place] [address] | | | | | | [phone] | | | +--------+--------+ + + + [...] | | | | | [place] [address] | | | | | | [phone] | | | | | | | | +--------+---------+ + + + documented as of this encounter Visit Diagnoses Not on filedocumented in this encounter"
--- OUTSIDE RECORDS SUMMARY | ~2019-10-20 | XMS | Encounter Summary ---
Demographics + + + | Address | [address] | | | [place] [address] | + + + | Home Phone [...] + | Organization | [facility] | [...] Team Providers + +------+ + | Care Sap Manager Name | Role | Phone | + +------+ + PCP | Unavailable | + +------+ + Encounter Details +--------+ + + + + | Date | Type | Department | Care Team | Description | +--------+ + + + + | 08/03/ | Hospital | [facility] | | | | 2008 - | Encounter | [facility] | | | | | | CENTER [address] | | | | 08/21/ | | [place] | | | | 2008 | | [address] | | | | | | [phone] | | | +--------+ + + + [...] | | | | | [place] [address] | | | | | | [phone] | | | | | | | | +--------+---------+ + + + documented as of this encounter Visit Diagnoses Not on filedocumented in this encounter"
--- OUTSIDE RECORDS SUMMARY | ~2019-10-20 | XMS | Encounter Summary ---
Demographics + + + | Address | [address] | | | [place] [address] | + + + | Home Phone [...] Team Providers + +------+ + | Care Carburetor Specialist Name | Role | Phone | + +------+ + PCP | Unavailable | + +------+ + Encounter Details +--------+ + + + + | Date | Type | Department | Care Team | Description | +--------+ + + + + | 07/24/ | Hospital | [facility] | | | | 2009 - | Encounter | [facility] | | | | | | CENTER [address] | | | | 08/21/ | | [place] | | | | 2009 | | [address] | | | | | | [phone] | | | +--------+ + + + [...] | | | | | [place] [address] | | | | | | [phone] | | | | | | | | +--------+---------+ + + + documented as of this encounter Visit Diagnoses Not on filedocumented in this encounter"
--- OUTSIDE RECORDS SUMMARY | ~2019-10-20 | XMS | Encounter Summary ---
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 He went to [place] to visit his sister and had a [...] home. No other animal exposures.Grew up in [place]. Then lived in [place]. Then move d to [place]. In the service lived in [facility] and [place]. No recent travel. Allergies: Allergies [...] into the lungs nightly. Respiratory Therapy Supplies [facility] Please [...] made to ensure accuracy; however, inadvertent computerized aircraft systems repairer errors may be pre sent. Electronically signed [...] | | | | | [place] [address] | | | | | | [phone] | | | | | | | [...]
--- OUTSIDE RECORDS SUMMARY | ~2019-10-20 | XMS | Encounter Summary ---
Demographics + + + | Address | [address] | | | [place] [address] | + + + | Home Phone [...] Providers + +------+ + | Care Manager Clinical Research Name | Role | Phone | + +------+ + | Parviz Brar DO | PCP | | + +------+ + Reason for Visit + +--------+ + | Reason | Onset | Comments | | | Date | | + +--------+ + | Prostate Cancer | 04/09/ | RESULTS | | | 2015 | | + +--------+ + Encounter Details +--------+ + + + + | Date | Type | Department | Care Team | Description | +--------+ + + + + | 04/09/ | Telephone | [facility] | Jorje Rutledge | Prostate Cancer | | 2016 | | [address] | [address] | (RESULTS) | | | | [place] | [place] | | | | | [address] | [place] [address] | | | | | [phone] | [phone] | | | | | | | [...] this encounter Miscellaneous Notes Telephone Encounter - Jorje Rutledge MD - 04/09/2015 11:53 AM PSTI called Diego to let him know that his PSA was 3.39. He received his Lupron shot so his next PSA should be much reduced. He had no other questions.Electronically signed by Jorje Rutledge MD at 11:53 AM PSTTelephone Encounter - Carolyn Rosenbaum - 04/09/2015 9:11 AM PSTWOULD MARISSA JUNIOR TO KNOW HIS PSA RESULTS. HAD THE LAB DRAWN AT [facility] [place]. CALL [phone] documented in this encoun ter Plan of Treatment +--------+---------+ + + + | Date | Type | Specialty | Care Team | Description | +--------+---------+ + + + | 12/26/ | Office | Urology | Jorje Rutledge | | | 2019 | Visit | | [address] | | | | | | [place] | | | | | | [place] [address] | | | | | | [phone] | | | | | | | | +--------+---------+ + + + documented as of this encounter Visit Diagnoses Not on filedocumented in this encounter"
--- OUTSIDE RECORDS SUMMARY | ~2019-10-20 | XMS | Encounter Summary ---
Demographics + + + | Address | [address] | | | [place] [address] | + + + | Home Phone [...] Team Providers + +------+ + | Care Steel Construction Worker Name | Role | Phone | + +------+ + | Jason Read | PCP | | | MD | | | + +------+ + Encounter Details +--------+---------+ + + + | Date | Type | Department | Care Team | Description | +--------+---------+ + + + | 12/14/ | Office | [facility] | Jorje Rutledge | Prostate cancer | | 2019 | Visit | [address] | [address] | ([facility]) (Primary Dx); | | | | [place] | [place] | Preventative health | | | | [address] | [place] [address] | care | | | | [phone] | [phone] | | | | | | | [...] fracture, COPD (chronic obstructive pulmonary dis ease) ([facility]), Depression, Dermatophytosis tinea capitis, Diverticulosis (01/2015), Essential hypertension, Foot fracture (02/2012), Gastritis (01/2015), GI bleed (01/2015), Heart murmur, Heartburn, Hiatal hernia (01/2015), History of rectal bleeding, Hypoxia, Insomnia, Internal bleeding (2017), Iron deficiency anemia, Kidney stone (2004), Lumbar disc herniation, Migra marcelino, Mood disorder ([facility]) of unknown (axis III) etiology, Nocturnal hypoxia, Osteoarthritis, Peptic ulcer disease, Pneumonia (05/2012), Prostate cancer ([facility]) (2007), Pulmonary nodules, Seborrheic dermatitis of scalp, Shoulder fracture (02/2012), Supplemental oxygen dependent, S VT (supraventricular tachycardia) ([facility]) (01/2014), TIA (transient ischemic attack), [...] tablet by mouth once daily. (Patient not karely martinez: Reported on 12/14/2018) ascorbic acid (VITAMIN C) [...] powder Take by mouth. Respiratory Therapy Supplies [facility] Please provide an O2 concentrator while Diego is patricia martinez for nocturnal O2 at 2 l/m. Dx: [...] 03/19/2014 PSA Date Results 12/12/18 0.681 [facility] 11/25/17 7.17 [facility] 08/26/17 [...] This document was generated in part using [employer] voice recognition software. Although ever y effort is made to edit the content, cost engineer errors may occur. Occasional wrong word or [...] | | | | | [place] [address] | | | | | | [phone] | | | | | | | [...] 1.001 - 1.030 | | | | [place], | | | | | | UA, [...] + + + | Bilirubin | | | | | | Confirmatio | | [...] care Routine general medical examination at a [facility] | | facility | + + documented in this encounter
--- OUTSIDE RECORDS SUMMARY | ~2019-10-20 | XMS | Encounter Summary ---
Demographics + + + | Address | [address] | | | [place] [address] | + + + | Home Phone [...] Team Providers + +------+ + | Care Sign Letterer Name | Role | Phone | + +------+ + PCP | Unavailable | + +------+ + Encounter Details +--------+ + + + + | Date | Type | Department | Care Team | Description | +--------+ + + + + | 07/23/ | Hospital | [facility] | | | | 2007 - | Encounter | [facility] | | | | | CENTER [address] | | | | 08/21/ | | [place] | | | | 2007 | | [address] | | | | | | [phone] | | | +--------+ + + + [...] | | | | | [place] [address] | | | | | | [phone] | | | | | | | | +--------+---------+ + + + documented as of this encounter Visit Diagnoses Not on filedocumented in this encounter"
--- OUTSIDE RECORDS SUMMARY | ~2019-10-20 | XMS | Encounter Summary ---
Demographics + + + | Address | [address] | | | [place] [address] | + + + | Home Phone | | + + + | Preferred Language | Unknown | + + + | Marital Status | | + + + | Protestant Affiliation | PRE | + + + | Race | White | + + + | Ethnic Group | Not or | + + + Author + + + | Author | [facility] | + + + | Organization | [facility] | + + + | Address | Unknown | + + + | Phone | Unavailable | + + + Support + + +---------+ + | Name | Relationship | Address | Phone | + + +---------+ + | Andrez Lucas | ECON | Unknown | Unavailable | + + +---------+ + Care Team Providers + +------+ + | Care Animal Trainer Name | Role | Phone | [...] | | | | | | Rd [facility] | | | | | | | Hospital | Health and | | | | | | [place], [place] | [facility], | | | | | | [address] | [address] | | | | | | Phone: | [place], [place] | | | | | | [phone] | [address] | | | | | | | Phone: | | | | | | | [phone] | | | | | | | Fax: | | | | | | | [phone] | +--------+--------+ + + + + Encounter Details +--------+---------+ + + + | Date | Type | Department | Care Team | Description | +--------+---------+ + + + | 06/20/ | Office | Otolaryngology | Desiree Easton, | Epistaxis (Primary | | 2012 | Visit | Laryngology Services | MD | Dx) | | | | at [facility] [address] | | | | | | [facility] | | | | [facility], | | | | | | [address] | | | | | | [place], [place] | | | | | | [address] | | | | | | [phone] | | | +--------+---------+ + + + [...] this encounter Patient Instructions Patient Instructions Elma MckeonMARK - 06/20/2012 2:27 PM PDTThank you for choosing [facility] Department of Otolaryngology for your health care needs. If you need to speak to an ENT physician after normal business hours, please call [phone] and ask to have the ENT phys ician high school professional paged. No nose blowing for two weeks. Saline nasal spray, 2 sprays 3-4 times daily documented in this encounter Progress Notes Desiree Easton MD - 06/20/2012 2:21 PM PDTFormatting of this note might be different fr om the original. PATIENT: Diego Lucas [facility] MR#: [id number] : 1935 REQUESTING PROVIDER: No Referring Provider Per Patient NO REFERRING PROVIDER PER PT PRIMARY CARE PROVIDER: Parviz Brar DO CLINIC: [facility] CHIEF COMPLAINT: Chief Complaint Patient presents with Nose bleed HPI: Diego Lucas is a 76 y.o. male who presents to the [facility] [...] severe pain. oxymetazoline 0.05 % Nasal Aerosol, Sherman Instill 2 Sprays into each nostril every six hours as needed (Epistaxis). Use for only 3 days. polyethylene glycol 17 gram/dose Oral Powder Take 17 g by mouth once daily. sodium chloride 0.65 % Nasal Aerosol, Sherman Instill 2 Sprays in nose every two [...] well. I have recommended that he use [place] Sherman or a formulary equiv alent, 2 sprays [...] Lucas expects to be discharged from the shelter next week. He plans to re turn to [place] with his after this. I would be [...] | + +--------+ + + + | [place] NASAL/SINUS | Routin | 06/20/2012 | Epistaxis [...]
--- OUTSIDE RECORDS SUMMARY | ~2019-10-20 | XMS | Encounter Summary ---
Demographics + + + | Address | [address] | | | [place] [address] | + + + | Home Phone [...] | Organization | [facility] [...] Team Providers + +------+ + | Care Grain Ii Farmworker Name | Role | Phone | + +------+ + PCP | Unavailable | + +------+ + Encounter Details +--------+ + + + + | Date | Type | Department | Care Team | Description | +--------+ + + + + | 11/02/ | Hospital | [facility] | | | | 2007 - | Encounter | [facility] | | | | | | CENTER [address] | | | | 11/21/ | | [place] | | | | 2007 | | [address] | | | | | | [phone] | | | +--------+ + + + [...] | | | | | [place] [address] | | | | | | [phone] | | | | | | | | +--------+---------+ + + + documented as of this encounter Visit Diagnoses Not on filedocumented in this encounter"
--- OUTSIDE RECORDS SUMMARY | ~2019-10-20 | XMS | Encounter Summary ---
Demographics + + + | Address | [address] | | | [place] [address] | + + + | Home Phone [...] Team Providers + +------+ + | Care Tableau Lead Name | Role | Phone | [...] + + | 06/23/ | Refill | [facility] | Jorje Rutledge | Medication Refill | | 2017 | | [address] | [address] | | | | | [place] | [place] | | | | | [address] | [place] [address] | | | | | [phone] | [phone] | | | | | | | [...] | | | | | [place] [address] | | | | | | [phone] | | | | | | | | +--------+---------+ + + + documented as of this encounter Visit Diagnoses Not on filedocumented in this encounter"
--- OUTSIDE RECORDS SUMMARY | ~2019-10-20 | XMS | Encounter Summary ---
Demographics + + + | Address | [address] | | | [place] [address] | + + + | Home Phone [...] Providers + +------+ + | Care Manager Bank Name | Role | Phone | + +------+ + PCP | Unavailable | + +------+ + Encounter Details +--------+ + + + + | Date | Type | Department | Care Team | Description | +--------+ + + + + | 04/08/ | Hospital | [facility] | | | | 1994 - | Encounter | [facility] GENER[facility] IP | | | | | | CONV DEPT [address] | | | | 04/09/ | | [place], | | | | 1992 | | [place] [address] | | | | | | [phone] | | | +--------+ + + + [...] | | | | | [place] [address] | | | | | | [phone] | | | | | | | | +--------+---------+ + + + documented as of this encounter Visit Diagnoses Not on filedocumented in this encounter"
--- OUTSIDE RECORDS SUMMARY | ~2019-10-20 | XMS | Encounter Summary ---
Demographics + + + | Address | [address] | | | [place] [address] | + + + | Home Phone [...] + + + | Author | [facility] | + + + | Organization | [facility] | + + + | Address | Unknown | + + + | Phone | Unavailable | + + + Support + + +---------+ + | Name | Relationship | Address | Phone | + + +---------+ + | Andrez Lucas | ECON | Unknown | Unavailable | + + +---------+ + Care Team Providers + +------+ + | Care Marine Rigger Name | Role | Phone | + [...] | 06/06/ | Emergency | [facility] Emergency | [place], | | | 2012 - | | Department [address] | MD Michael | | | | | [address] | [place]ain | | | 06/07/ | | [facility] | [facility] | | | 2012 | | [place], [place] | [place] [address] [place] | | | | | [address] | EMERGENCY | | | | | [phone] | [place] [address] | | | | | | [phone] | | | | | | | | | | | | Jean-Pierre Bruno MD | | | | | | [address] | | | | | | [place], | | | | | | [place] [address] | | | | | | [phone] | | | | | | | [...] still bleeding, return to the ED. 3) [place]'s spray Twice a day to both nostrils [...] "Nosebleeds: After Your Visit", log into your Publicate account at [email or web address]. You can enter [email or web address] in the Polar Rose" search box. Not on Publicate? Review the MyChart section of your After Visit Summary for directions on whitney clay to sign up. [id number] [employer]. Care instructions adapted under license by [facility]. This care instruction is for use with your licensed healthcar e professional. If you have questions about a medical condition or this instruction, always ask your healthcare professional. [employer] disclaims any warranty or liabili ty for your use of this information. Content Version: 9.6.238922; Last Revised: August 19, 2011 documented in [...] documented as of this encounter Consult Notes Noe Roberts MD - 06/07/2012 12:09 AM PDTAssociated Order(s): IP CONSULT TO OTOLARYNG OLOGY Otolaryngology/Head and Neck Surgery Epistaxis Patient Consult Attending: Tashi Cherry MD referring MD: ED Cc: epistaxis HPI: Diego Lucas is a 76 y.o. male with COPD and a recent episode of pneumonia is referre d for evaluation of epistaxis. He has been on home O2 for the past few days. He was seen at the ED last night for epistaxis which resolved with an application of floseal. He went back to his SNF and was working with the physical therapist when he started bleeding again so he returned to the [facility] ED. He was sprayed with afrin and was discharged because he had stopped bleeding, then when he got in the van to leave he again started bleeding so he returned. He denies significant blood loss or lightheadedness. ROS: denies fevers, chills, visual changes, headaches, vertigo, nausea, shortness of kimberly th, chest pain. Past Medical History Diagnosis Date Pneumonia COPD Gastroesophageal reflux Benign hypertrophy of prostate Unspecified essential hypertension Past Surgical History Procedure Date Back surgery No current facility-administered medications for this encounter. [...] Narrative No narrative on file PHYSICAL EXAM: Wt 72.576 kg (160 lbs)( < 3 %ile), BP 147/81, Pulse 106, Temperature 36.6 C (97.9 F), R R 22, SpO2 90%. Alert, NAD, breathing comfortably. Head: Atraumatic, symmetric CN: 2-12 grossly intact including all branches of CN VII, CN V Ears: hearing normal to conversational voice Nose: External nasal clip removed from nose. Dried blood seen posteriorly in the oropharynx . No active bleeding anteriorly. No caudal septal bleeding appreciated on either side. Vidya l external anatomy, no bony stepoffs. Septum midline. No septal hematoma. mouth/throat: mouth dry and blood stained though no active bleeding, tongue midline Neck: no LAD or masses, no thyromegaly. Good laryngeal motion with swallow. Procedure: One nasopore was placed in the right nasal cavity without difficulty. He tolerated it well without any problem. Assessment and Plan Diego Lucas is a 76 y.o. male with recurrent epistaxis, now controlled with placement of nasopore on the right side. - Expect the clot to slowly dissolve over many days. A small amount of blood tinged secreti ons is normal. - The packing does not need to be removed as it will absorb on its own. - DC with Afrin. If the patient has an episode of bleeding, spray 2 large doses of Afrin in to each nostril and hold FIRM pressure on the anterior, soft part of the nose for a full 20 minutes. Re-evaluate. If the patient is still bleeding, call [facility] or return to the ED. - [place]'s spray BID to bilateral nasal cavities for moisture and help facilitate absorption of the packing. - Humidify home O2. - Follow up with PCP. - Return to ED if severe or persistent bleeding Patient will be discussed with Dr Cherry in the morning. Noe Roberts MD Otolaryngology Head and Neck Surgery PGY2 documented in thi s encounter ED Notes Abimbola Delvalle RN - 06/07/2012 2:52 AM PDTRN DISCHARGE NOTE: The patient verbalizes understanding of written discharge/home care instructions as a evide nced by Follow-up plan of care reviewed w/ patient, Pt voiced understanding of plan of care and Written dx instructions reviewed w/ patient. The patient was discharged Wheelchair via via stretcher with INSURANCE CLAIMS ANALYST with self in no emergent distress. Abimbola Bond RN - 06/07/2012 2:17 AM PDTAMR called and a nticipated p/u time is 30 min. Abimbola Bond RN - 06/07/2012 12:26 AM PDTPt sitting up in bed. No bleeding noted at this time. Willie Miranda RN - 06/06/2012 11:18 PM PDT4x4 placed on patient's nose. Nose clamp in place. Bleeding controlled with pressure. Patient placed on security monitor. ST. NAD Resting comfortably. HOB 90degrees es ar, Raza Dexter MD - 06/06/2012 11:15 PM PDTFormatting of this note might be different from lucila davenport. 11:15 PM, RAZA CALABRESE MD, Resident Note SBAR received from Michael Waller MD and Resident at 11:15 PM. Please see the initial provider note for full details of history and physical exam. Briefly, pt is a 76 y.o. gentleman with history of nosebleeds who presented to the ED with Nosebleed Seen by ENT yesterday, had floceal placed, returned here for nosebleed and afrin was placed but pt rebled ENT consulted Plan to f/u ENT consult ED Course: ENT placed absorbable packing, no need for abx's as it will absorb. Pt observed for severa l hours, no re-bleed, will d/c home Diagnosis: [id number] Recurrent epistaxis Plan: D/c home F/u PCP Return for bleeding or any other concerns Data at time of sign out (11:15 PM): Filed Vitals: 06/06/2012 6:30 PM 06/06/2012 6:35 PM 06/06/2012 8:58 PM Weight: 72.576 kg (160 lb) BP: 132/78 133/82 Pulse: 106 Temp: 36.6 C Resp: 22 SpO2: 90% 93% Results for orders placed during the hospital encounter of 06/06/12 HEMOGLOBIN Component Value Range HEMOGLOBIN 9.6 (*) 13.5-17.5 g/dL ED meds: Medications oxymetazoline (aka AFRIN) 0.05 % nasal spray 2 [place] (2 [place] Nasal Given 06/06/122011) sodium chloride (aka OCEAN) 0.65 % nasal spray 2 [place] (2 [place] both nostrils Given 06/06/121949) Gaudencio Azevedo RN - 11:07 PM PDTems here to grain picker pt. Pt returned to snf. atricia Christy RN - 06/06/2012 10:06 PM PDTRepo rt called to DIVYA Schmidt at [facility]. Patricia Anderson RN - 06/06/2012 10:01 PM PDTBed:15T2
Expected date:
Expected time:
Means of arrival:
Comments:
Michael Estevez MD - 06/06/2012 7:38 PM PDT ED Shared Provider Note, co-authored by Maxim Waller and KAISER CARLSON MD: HPI 76 yo with COPD and on home O2 who presents with recurrent epistaxis and seen previously at [facility] ED for same problem. Evaluated and scoped by ENT during last ED stay. Discharged wit h ocean spray BID and afrin/pressure if epistaxis recurs. States was doing fine until ~430p m this evening when nose began bleeding again. Nose was packed but Afrin and pressure were not used. Sent back to ED for further evaluation. He denies fevers, chills, chest pain, be lly pain, light headedness. He endorses nausea, but no emesis. Endorses SOB related to CRM SPECIALIST D. PCP: Parviz Brar DO Patient Active Problem [...] Family History Problem Relation Non-contributory Neg Hx Review of Systems Constitutional: Negative for fever, chills, weight loss, malaise/fatigue and diaphoresis. HENT: Positive for nosebleeds. Negative for hearing loss, ear pain, congestion, sore throat , neck pain, tinnitus and ear discharge. Eyes: Negative for blurred vision, double vision, photophobia, pain, discharge and redness. Respiratory: Positive for shortness of breath. Negative for cough, hemoptysis, sputum produ ction, wheezing and stridor. Due to COPD Cardiovascular: Negative for chest pain, palpitations, orthopnea, claudication, leg swellin g and PND. Gastrointestinal: Positive for nausea. Negative for heartburn, vomiting, abdominal pain, di arrhea, constipation, blood in stool and melena. Genitourinary: Negative for dysuria, urgency, frequency, hematuria and flank pain. Musculoskeletal: Negative for myalgias, back pain, joint pain and falls. Skin: Negative for itching and rash. Neurological: Negative for dizziness, tingling, tremors, sensory change, speech change, foc al weakness, seizures, loss of consciousness, weakness and headaches. Endo/Heme/Allergies: Negative for environmental allergies and polydipsia. Does not bruise/b leed easily. ED Triage Vitals BP Temp Pulse Resp SpO2 06/06/12 1830 06/06/12 1835 06/06/12 1830 06/06/12 1830 06/06/12 1830 132/78 mmHg 36.6 C 106 22 90 % Physical Exam Constitutional: He is oriented to person, place, and time. No distress. Elderly, comfortable HENT: Head: Normocephalic and atraumatic. Right Ear: External ear normal. Left Ear: External ear normal. Mouth/Throat: No oropharyngeal exudate. Dried blood on hard palate due to spitting up blood. Dried blood in nares. No clot. No active bleeding. Eyes: Conjunctivae and EOM are normal. Pupils are equal, round, and reactive to light. Righ t eye exhibits no discharge. Left eye exhibits no discharge. No scleral icterus. Neck: Neck supple. No JVD present. No tracheal deviation present. No thyromegaly present. Cardiovascular: Normal rate, regular rhythm, normal heart sounds and intact distal pulses. Exam reveals no gallop and no friction rub. No murmur heard. Pulmonary/Chest: Effort normal. No stridor. No respiratory distress. He has wheezes. He has no rales. He exhibits no tenderness. rhonchi Abdominal: Soft. He exhibits no distension and no mass. There is no tenderness. There is no rebound and no guarding. Musculoskeletal: Normal range of motion. He exhibits no edema and no tenderness. Neurological: He is alert and oriented to person, place, and time. No cranial nerve deficit . Coordination normal. Skin: Skin is warm and dry. No rash noted. He is not diaphoretic. No erythema. No pallor. ED COURSE AND MEDICAL DECISION MAKING: ED Course: Nursing notes and music composition teacher records (as available) were noted and reviewed. Pt past medical history, medications, allergies, and social history have been reviewed. Medical Decision Makin yo male with recurrent epistaxis that was controlled with pressure and afrin in the ED. Was prepping for discharge when epistaxis returned. Brought back to ED for Afrin and press ure. Patient was given Afrin and pressure was applied and he had no further bleeding for ove r an hour in the emergency department however by the time of discharge to bleed again. ENT r econsulted given repeated recurrence. Patient was signed out to Dr. Ochoa had 2400 pending evaluation by ENT and disposition. ED Medication Administration from 06/06/2012 7027 to 06/06/2012 6316 Date/Time Order Dose Route Action 06/06/20122011 oxymetazoline (aka AFRIN) 0.05 % nasal spray 2 [place] 2 [place] Nasal Given 06/06/2012 2327 oxymetazoline (aka AFRIN) 0.05 % nasal spray 2 [place] 2 [place] both nostrils Given 06/06/2012 1950 sodium chloride (aka OCEAN) 0.65 % nasal spray 2 [place] 2 [place] both nostri ls Given IMPRESSION: [id number] Recurrent epistaxis PLAN, DISPOSITION AND FOLLOW-UP: ENT consult: further recs pending. Dispo pending, but expect to care facility once epistaxis under control. New Prescriptions No medications on file Gracia Florence RN - 06/06/2012 6:31 PM PDTPatient arrives from care facility with nose bleed today, pt w as discharged from [facility] ed this am . Patient states his nose was packed but started to bleed again around 430 pm. P DTGracia Syed RN - 06/06/2012 6:26 PM PDTBed:16
Expected date:
Expected time:< BR>Means of arrival:
Comments:
Hold Electronically signed by Gracia Syed RN at 0 06/06/2012 6:26 PM Slick Carver NP - 06/06/2012 5:32 PM PDT76 yo male Epistaxis last night, seen in our ED Epistaxis started about an hour ago RN packed with cotton, stopped briefly but recurred BP normal, denies dizziness Coming by EMS SACHA Gar- Department of Emergency Medicine Pager: [phone] documented in this encounter Miscellaneous Notes Scan - Yoko, Faculty - 06/09/2012 10:59 AM PDTElectronically signed by Faculty Other at 10:59 AM PDTScan - Yoko Faculty - 06/09/2012 10:58 AM PDT NEScganesh Babcock Faculty - 06/09/2012 9:50 AM PDTElec tronically signed by Faculty Other at 06/09/2012 9:50 AM PDTED Teaching Notes - Richard Waller MD - 06/06/2012 7:26 PM PDTTeaching Attestation: I saw and evaluated the patient and discussed the findings, diagnosis and management of the patient with the Resident Dr. Sa jennifer Carlson. I performed and confirmed the dhillon portions of the service. The resident and I co-wrote the ED Provider Note using the Pluralsight share function. I agree with the documentation , findings, and plan of care except as noted by me in bold. [facility] Gracia perez RN - 06/06/2012 6:34 PM PDT A303: 76 [address] [facility], epistaxis for 90 min, seen here this morning for same complaint. 128 /82, hr 104, COA, rr 20. documented in this encounter Plan of Treatment Not [...] | + + + + + | [facility] | [address] | [place] [address] | | | SERVICES, CORE | [place] [...] | + +--------+ + +------+------+ | oxymetazoline (aka AFRIN) 0.05 | Given | 06/07/19 | 2 sprays | | | | % nasal spray 2 [place] 2 spray, | | 13 8:12 | [...] | | | % nasal spray 2 [place] 2 spray, | | 13 11:27 | | | | | both nostrils, ONCE, 1 dose, Tue | | PM PDT | | | | | 06/07/12 at 0000 | | | | | | + +-------+ + +---+---+ +---+---+ | | | +---+---+ + +-------+ + +---+---+ | sodium chloride (aka OCEAN) | Given | 06/07/19 | 2 sprays | | | | 0.65 % nasal spray 2 [place] 2 | | 13 7:50 | | | | | spray, both nostrils, ONCE, 1 | | PM PDT | | | | | dose, 06/06/12 at 2030 | | | | | | + +-------+ + +---+---+ +---+---+ | | | +---+---+ documented in this encounter
--- OUTSIDE RECORDS SUMMARY | ~2019-10-20 | XMS | Encounter Summary ---
Demographics + + + | Address | [address] | | | [place] [address] | + + + | Home Phone [...] Organization | [facility] [...] Team Providers + +------+ + | Care Mailroom Assistant Name | Role | Phone | + +------+ + | Parviz Brar DO | PCP | | + +------+ + Reason for Visit +--------+--------+ + | Reason | Onset | Comments | | | Date | | +--------+--------+ + | Other | 12/19/ | Change to Qvar | | | 2013 | | +--------+--------+ + Encounter Details +--------+ + + + + | Date | Type | Department | Care Team | Description | +--------+ + + + + | 12/19/ | Telephone | [facility] | Matthew, | Other (Change to | | 2013 | | PULMONARY [address] | Becca Segura MD | Qvar) | | | | [place], | | | | | | [place] [address] | | | | | | [phone] | | | +--------+ + + + [...] Telephone Encounter - Rupa Watt RN - 12/19/2013 3:22 PM PDTCalledRrex and advised usage of Qvar. He voices understanding.Electronically signed by Rupa Watt RN at 3:22 PM PDTTelephone Encounter - Becca Castro MD - 12/19/2013 12:20 PM PD TQvar ordered. Please review with patient. elephone Encounter - Rupa Watt RN - 12/19/2013 11:46 AM PDTRex called stating that he checked with his insurance and Qvar is less expensive than the Flovent. He is interested in changing and uses [facility] in [place].Electronically chela d by Rupa Watt RN at 12/19/2013 11:49 AM PDTdocumented in this encounter Plan of Treatment +--------+---------+ + + + | Date | Type | Specialty | Care Team | Description | +--------+---------+ + + + | 12/26/ | Office | Urology | Jorje Rutledge | | | 2019 | Visit | | [address] | | | | | | [address] | | | | | | [place] [address] | | | | | | [phone] | | | | | | | | +--------+---------+ + + + documented as of this encounter Visit Diagnoses Not on filedocumented in this encounter"
--- OUTSIDE RECORDS SUMMARY | ~2019-10-20 | XMS | Encounter Summary ---
Demographics + + + | Address | [address] | | | [place] [address] | + + + | Home Phone [...] | Organization | [facility] [...] Team Providers + +------+ + | Care Auger Mill Operator Name | Role | Phone [...] 2018 | | GASTROENTEROLOGY | [address], [place] | | | | | [address] [place] | [address] [place], [place] | | | | | [address] [place], [place] | [address] | | | | | [address] | | | | | | [phone] | | | +--------+ + + + [...] | | | | | [place] [address] | | | | | | [phone] | | | | | | | | +--------+---------+ + + + documented as of this encounter Procedures + +--------+ + + + | Procedure Name | Priori | Date/Time | Associated Diagnosis | Comments | | | ty | | | | + +--------+ + + + | EXTERNAL LAB: BUN | Routin | 03/18/2017 | | Results [...] + + | Carbon | 25 | 19 - 31 | EXTERNAL | | | [...]
--- OUTSIDE RECORDS SUMMARY | ~2019-10-20 | XMS | Encounter Summary ---
Demographics + + + | Address | [address] | | | [place] [address] | + + + | Home Phone [...] + | Organization | [facility] | [...] Team Providers + +------+ + | Care Investigator Narcotics Name | Role | Phone | + +------+ + PCP | Unavailable | + +------+ + Encounter Details +--------+ + + + + | Date | Type | Department | Care Team | Description | +--------+ + + + + | 12/16/ | Hospital | [facility] | [place], | | | 2010 | Encounter | MED CTR XRAY [address] | Becca Segura MD | | | | | [address] [place] | | | | | | [place] [address] | | | | | | [phone] | | | +--------+ + + + [...] | | | | | [place] [address] | | | | | | [phone] | | | | | | | [...] Performed At | + + + | [facility] Diagnostic Imaging Department | [facility] | | [address] [facility] | [facility] | | UNENHANCED CHEST CT: 12/16/2010 | YRIS CASILLAS | | CLINICAL HISTORY: FOLLOW UP PULMONARY [...] Transcribed Date/Time: 12/17/2010 07:02 | | | Preform Plate Maker: <Electronically Signed by Colin Merrill MD> | | | 12/17/10 2150 | | + + + + + | Procedure Note | + + | Roosevelt, Rad Conversion - 03/31/2013 4:06 PM [facility] | | Diagnostic Imaging Department | | [address] [facility] | | | | | [...] | Transcribed Date/Time: 12/17/2010 07:02 | | Preform Plate Maker: LENNIE | | <Electronically Signed by Colin Merrill MD> 12/17/10 2150 | + + + +---------+ + + | Performing | Address | City/State/Zipcode | Phone Number | | Organization | | | | + +---------+ + + | [place] | | | | | [facility] | | | | + +---------+ + + documented in this encounter Visit Diagnoses Not on filedocumented in this encounter"
--- OUTSIDE RECORDS SUMMARY | ~2019-10-20 | XMS | Encounter Summary ---
Demographics + + + | Address | [address] | | | [place] [address] | + + + | Home Phone [...] Team Providers + +------+ + | Care Hide Selector Name | Role | Phone | + [...] + + | 10/13/ | Office | [facility] | Marc Odell | Gastrointestinal | | 2017 | Visit | GASTROENTEROLOGY | MD Noe [address] | hemorrhage, | | | | [address] [place] | [address] [place] | unspecified | | | | [address] [place] [address] | [place] [address] | gastrointestinal | | | | [address] | [phone] | hemorrhage type | | | | [phone] | | (Primary Dx) | +--------+---------+ + [...] He wa s going to remain in [place] rather than going back and forth to [place]. Electronica llregina signed by Maribell Cleary RN at 11/10/2016 [...] [address] | | | | | | [place] [address] | | | | | | [phone] | | | | | | | [...]
--- OUTSIDE RECORDS SUMMARY | ~2019-10-20 | XMS | Encounter Summary ---
Demographics + + + | Address | [address] | | | [place] [address] | + + + | Home Phone [...] | Organization | [facility] [...] Providers + +------+ + | Care Business Support Administrator Name | Role | Phone | [...] | 08/04/ | Refill | [facility] | Jorje Rutledge | Medication Refill | | 2017 | | [address] | [address] | | | | | [place] | [place] | | | | | [address] | [place] [address] | | | | | [phone] | [phone] | | | | | | | [...] | | | | | [place] [address] | | | | | | [phone] | | | | | | | | +--------+---------+ + + + documented as of this encounter Visit Diagnoses Not on filedocumented in this encounter"
--- OUTSIDE RECORDS SUMMARY | ~2019-10-20 | XMS | Encounter Summary ---
Demographics + + + | Address | [address] | | | [place] [address] | + + + | Home Phone [...] + | Organization | [facility] | [...] Team Providers + +------+ + | Care Biological Technical Officer Name | Role | Phone | + +------+ + | Parviz Brar DO | PCP | | + +------+ + Encounter Details +--------+ + + + + | Date | Type | Department | Care Team | Description | +--------+ + + + + | 06/16/ | Hospital | [facility] | Conversion | Pain | | 2017 | Encounter | CONVERSION [address] | Transaction, | | | | | [address] | Provider Unknown | | | | | [place], [place] | [phone] | | | | | [address] | | | | | | [phone] | | | +--------+ + + + [...] | | | | | [place] [address] | | | | | | [phone] | | | | | | | [...]
--- OUTSIDE RECORDS SUMMARY | ~2019-10-20 | XMS | Encounter Summary ---
Demographics + + + | Address | [address] | | | [place] [address] | + + + | Home Phone [...] Team Providers + +------+ + | Care Hydrotherapist Name | Role | Phone | + +------+ + | Jason Read | PCP | | | MD | | | + +------+ + Encounter Details +--------+ + + + + | Date | Type | Department | Care Team | Description | +--------+ + + + + | 06/11/ | Orders Only | [facility] | Parviz Brar | | | 2017 | | CONVERSION [address] | | | | | [address] | [place] | | | | | [place], [place] | [address] | | | | | [address] | [phone] | | | | | [phone] | | | +--------+ + + + [...] | | | | | [place] [address] | | | | | | [phone] | | | | | | | [...] TR | | | Vmax: 3.24 m/s Transport Engineer: MARIUM Authenticated by: Sailaja | | | [facility] Report Date/Time: 06-11-2016 21:02:25 | | + + + + + | Procedure Note | + + | Duke Albert Conversion - 10/13/2018 8:10 PM PDT Patient Name: [...] cmLVIDd: 4.16 cmLVPWd: 0.99 cmLVOT Area: 3.08 lo1TVSV Diam: | | 1.98 cm%FS: 18.59 %EF(Teich): [...] mlLAESV Index (A-L): 27.33 ml/m2LAAs A2C: 18.95 el5AKNKC A-L A2C: 56.88 | | mlLALs A2C: 5.36 cmLAAs A4C: 17.45 cy2IBHHT A-L A4C: 50.86 mlLALs A4C: 5.08 | | cmRAAs: 13.90 cl2NROYP A-L: 34.51 mlRAESV MOD: 32.71 mlRALs: 4.75 cmTAPSE: | | 1.79 cmAV maxP.58 mmHgAV meanP.29 mmHgAV Vmax: 1.62 m/Cecy Vmean: 1.18 | | m/Cecy VTI: 31.29 cmAVA Vmax: 3.05 cm2AVA (VTI): 3.05 op0ZQID Vmax: 0.00 | | cm2/m2AVAI (VTI): 0.00 cm2/m2LVOT maxP.38 mmHgLVOT meanP.72 mmHgLVSI | | Dopp: 47.36 ml/m2LVSV Dopp: 95.67 mlLVOT Vmax: 1.61 m/sLVOT Vmean: 1.10 m/sLVOT | | VTI: 30.97 cmMV A Justin: 0.89 m/sMV DecT: 265.07 msMV E Justin: 0.58 m/sMV E/A Ratio: | | 0.65MV PHT: 76.87 msMVA By PHT: 2.86 uw4Emjsfi e': 0.04 m/sSeptal E/e': | | 12.88Lateral e': 0.09 m/sLateral E/e': 6.53RAP: 5 mmHgRVSP: 47.14 mmHgTR maxPG: | | 42.14 mmHgTR Vmax: 3.24 m/s Transport Engineer: Amarjitticated by: Sailaja Rocha | | Date/Time: 06-11-2016 [...] |TR Vmax: 3.24 m/s | | | |Transport Engineer: MARIUM | |Authenticated by: Sailaja Niño | |Report [...]
--- OUTSIDE RECORDS SUMMARY | ~2019-10-20 | XMS | Encounter Summary ---
Demographics + + + | Address | [address] | | | [place] [address] | + + + | Home Phone [...] Providers + +------+ + | Care Clinical Sales Consultant Name | Role | Phone | + +------+ + | Parviz Brar DO | PCP | | + +------+ + Encounter Details +--------+---------+ + + + | Date | Type | Department | Care Team | Description | +--------+---------+ + + + | 12/10/ | Office | [facility] | [place], | COPD (chronic | | 2015 | Visit | PULMONARY [address] | Billy Segura MD | obstructive | | | | [place], | | pulmonary disease) | | | | [place] [address] | | (Primary Dx); | | | | [phone] | | 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) | +--------+---------+ + + + Social [...] Instructions Patient Instructions Billy Castro MD - 12/10/2014 1:28 PM PDTI would find out in Dr. Branch still sees patients one day a week in [place]. Stop the Qvar. Start on Breo 1 inhalation once daily, rinse after using. If this is not covered, let us kn ow, and we will try something else. Stay on the Atrovent 4 times daily. Continue the Ventolin as needed, but hopefully you will need less often. Electronically sig belinda by Billy Castro MD at 12/10/2014 1:44 PM PDT documented in this encounter Progress Notes Billy Castro MD - 12/10/2014 1:03 PM PDTFormatting of [...] tax they are trying to institute in [place]. Roberto Carlos rodriguez did find out he has some difficulty [...] is currently on 2 LPM at [facility]. He reports good compliance. Past Medical History Past Medical History Diagnosis Date Peptic ulcer disease with upper GI bleed Benign prostatic hypertrophy Osteoarthritis Heartburn Pulmonary nodules Shoulder fracture 02/2012 Foot fracture 02/2012 SVT (supraventricular tachycardia) 01/[address] Wilder for ablation Depression Prostate cancer (HCC) 2007 s/p radiation treatment and on hormonal treatment with Lupron; DR JULIAN [place] COPD (chronic obstructive pulmonary disease) ([facility]) DR BILLY CASTRO Pneumonia 05/2012 [address] [facility] Heart murmur DR MARIAA OLIVERA Cataracts, [...] Laterality: N/A; Surgeon: Jennifer Wilder MD; Location: [facility] ELECTROPHYSIOLOGY Social History: History Social History [...] No other animal exposures. Grew up in [place]. Then lived in [place]. Then moved to [place]. In the service lived [facility] and [place]. No recent travel. Allergies: Allergies [...] PO) Take by mouth. Respiratory Therapy Supplies [facility] [...] made to ensure accuracy; however, inadvertent computerized hired hand errors may be pre sent. documented in [...] | | | | | [place] [address] | | | | | | [phone] | | | | | | | [...]
--- OUTSIDE RECORDS SUMMARY | ~2019-10-20 | XMS | Encounter Summary ---
Demographics + + + | Address | [address] | | | [place] [address] | + + + | Home Phone [...] | Organization | [facility] [...] Team Providers + +------+ + | Care Mill Roll Operator Name | Role | Phone | + +------+ + PCP | Unavailable | + +------+ + Reason for Visit + +--------+ + | Reason | Onset | Comments | | | Date | | + +--------+ + | Appointment | 03/07/ | | | | 2012 | | + +--------+ + Encounter Details +--------+ + + + + | Date | Type | Department | Care Team | Description | +--------+ + + + + | 03/07/ | Telephone | [facility] [place] | [place], | Appointment | | 2012 | | PULMONARY [address] | Becca Segura MD | | | | | [place], | | | | | | [place] [address] | | | | | | [phone] | | | +--------+ + + + [...] Notes Telephone Encounter - Kendra Morrissey - 03/07/2012 2:59 PM PSTLeft message for Diego to mohan rees and schedule follow up visit with Dr. Castro. documented in this encounter Plan of Treatment +--------+---------+ + + + | Date | Type | Specialty | Care Team | Description | +--------+---------+ + + + | 12/26/ | Office | Urology | Jorje Rutledge | | | 2019 | Visit | | [address] | | | | | | [place] | | | | | | [place] [address] | | | | | | [phone] | | | | | | | | +--------+---------+ + + + documented as of this encounter Visit Diagnoses Not on filedocumented in this encounter"
--- OUTSIDE RECORDS SUMMARY | ~2019-10-20 | XMS | Encounter Summary ---
Demographics + + + | Address | [address] | | | [place] [address] | + + + | Home Phone [...] Team Providers + +------+ + | Care Ruffling Hemmer Automatic Name | Role | Phone | [...] | Gastroenterol | Diagnoses | Harri, | Alphonso, | | | Services | ogy | | Froylan Choi MD | Froylan Choi MD | | | Required | | Gastrointest | [address] [place], | | | | | inal | [place] | [address] | | | | | hemorrhage, | [address] [place] | [place], | | | | | unspecified | [place], [place] | [place] [address] | | | | | gastrointest | [address] | Phone: | | | | | inal | Phone: | [phone] | | | | | hemorrhage | [phone] | Fax: | | | | | type | Fax: | [phone] | | | | | Procedures | [phone] | | | | | | [place] [facility] | | | | | [...] | | +--------+--------+ + | Other | 10/01/ | request auth for SBCE (Pillcam) | | | 2016 | | +--------+--------+ + Encounter Details +--------+ + + + + | Date | Type | Department | Care Team | Description | +--------+ + + + + | 10/01/ | Telephone | [facility] | Froylan Werner MD | Other (request auth | | 2016 | | GASTROENTEROLOGY | [address] [place] | for SBCE (Pillcam)) | | | | [address] [place] | [address] [place], [place] | | | | | [address] [place], [place] | [address] | | | | | [address] | | | | | | [phone] | | | +--------+ + + + [...] Telephone Encounter - Maribell Cleary RN - 10/08/2016 3:25 PM PDTScheduled pt for pi ll cam swallow on 10/13/16 at 0830 checkin; advised on Wednesday breakfast and light lunch then clear liquids; advised no red/purple, dairy or pulp; start 4pm and drink half bowel prep; se nt rx to [facility]; pt advised to hold iron 3 days prior; advised NPO 10pm on Wednesday and we ar clothing that will be easy to remove for sensors on abdomin. elephone Encounter - Maribell Cleary R N - 10/08/2016 3:14 PM PDTReceived auth for pillcam; LVM for pt to call so we can review in structions and schedule pillcam. elephone Encounter - Maribell Cleary RN - 10/01/2016 8:14 AM PDTAdvis ed pt that Dr. Werner reviewed notes and recommends SBCE (Pillcam) due to current GI bleeds a s egd/colon were negative; advised pt I would request an authorization and upon approval iza rees contact him to review prep instructions, etc. Pt verbalized understanding. documented in this encounter Plan of Treatment +--------+---------+ + + + | Date | Type | Specialty | Care Team | Description | +--------+---------+ + + + | 12/26/ | Office | Urology | Jorje Rutledge | | | 2019 | Visit | | [address] | | | | | | [place] | | | | | | [place] [address] | | | | | | [phone] | | | | | | | [...] | hemorrhage, | starting 10/01/2016 | | (alphonso) | | | unspecified | until 10/01/2017 [...]
--- OUTSIDE RECORDS SUMMARY | ~2019-10-20 | XMS | Encounter Summary ---
Demographics + + + | Address | [address] | | | [place] [address] | + + + | Home Phone [...] Team Providers + +------+ + | Care Boat Rigger Name | Role | Phone | + +------+ + | Jason Read | PCP | | | MD | | | + +------+ + Reason for Visit + + + | Reason | Comments | + + + | Prostate Cancer | | + + + | Other | Bladder outlet obstruction | + + + Follow Up (Routine) +--------+--------+ + + + [...] | | | | [facility] FOLLOW | [address] | [place] | | | | | UP/ LABS | [address] | [place], | | | | | PRIOR | [place] | [place] [address] | | | | | Procedures | [place] | Phone: | | | | | FOLLOW UP | [address] | [phone] | | | | | | Phone: | Fax: | | | | | | [phone] | [phone] | | | | | | Fax: | | | | | | | [phone] | | +--------+--------+ + + + + Encounter Details +--------+ + + + + | Date | Type | Department | Care Team | Description | +--------+ + + + + | 06/20/ | Virtual | [facility] UROLOGY | Jorje Rutledge | Prostate cancer | | 2020 | Office | [address] | [address] | ([facility]) (Primary Dx); | | | Visit | [place] | [place] | Benign prostatic | | | | [address] | [place] [address] | hyperplasia, | | | | [phone] | [phone] | unspecified whether | | | | | | lower urinary tract | | | | | | symptoms present | +--------+ + + + + Social [...] documented as of this encounter Progress Notes Jorje Rutledge MD - 06/21/2019 9:00 AM PDTFormatting of this note might be differen t from the original. SUBJECTIVE: Participants: Patient Participant verbally confirmed the choice to initiate care by, and consents to receive care by Telephone. You have chosen to receive care through the use of telemedicine. Telemedicine enables [facility] care providers at different locations to provide safe, effective and convenient care throu gh the use of technology. As with any health care service, there are risks associated with t he use of telemedicine, including equipment failure, poor audio quality and information secu rity issues. Do you understand the risks and benefits of telemedicine as I have explained them to you? " Yes" Have your questions regarding telemedicine been answered? "Yes" Patient is currently at home Do you consent to the use of telemedicine in your medical care today? Yes. Last question, I need to confirm where are you physically located right now? Answer: Patient confirms they are located in a state where Jorje Baker MD, am licensed. Pt states understanding of limits of teleconference exam. HPI: RELEVANT HISTORY GATHERED FROM PRIOR OFFICE VISITS: Today, 06/21/2019, Diego Lucas is a 83 y.o. male who presents via telephone visit for prostate cancer and bladder outlet obstruction. He is a very pleasant gentleman, who was a patient of Dr. Mercedez Barkley in [place] for ma ny years. 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 He underwent external beam radiation therapy with Dr. Garza , with post radiation adjuvant Lupron for 1.5 [...] has currently been off of Lupron for 12 months (he had a 6-mon th Lupron given in May 302018). His most recent PSA last week was 2.03. He is currently on tamsulosin 0.4 mg p.o. twice da leslie, and is voiding satisfactorily. He denies any gross hematuria, dysuria, or feelings of retention. He is agreeable for follow-up in 3 months here in the office. He has not had any further episodes of GI bleeding Past Medical History: Diagnosis Date Actinic keratosis of scalp Anemia Benign prostatic hypertrophy Bereavement without complication C. difficile enteritis 2012 CAD (coronary artery disease) Cataracts, bilateral s/p removal Clavicle fracture COPD (chronic obstructive pulmonary disease) ([facility]) DR BILLY ARAUJO Depression Dermatophytosis tinea capitis Diverticulosis 01/2015 Essential hypertension Foot fracture 02/2012 Gastritis 01/2015 mild GI bleed 01/2015 unclear etiology, required 3 u blood, had upper and lower endoscopy Heart murmur DR MARIAA OLIVERA Heartburn Hiatal hernia 01/2015 History of rectal bleeding Hypoxia Insomnia Internal bleeding 2018 Internal bleeding 02/2019 Iron deficiency anemia Kidney stone 2004 Lumbar disc herniation Migraines Mood disorder (HCC) of unknown (axis III) etiology Nocturnal hypoxia Osteoarthritis Peptic ulcer disease with upper GI bleed Pneumonia 05/[address] [facility] Prostate cancer (HCC) 2007 s/p radiation treatment and on hormonal treatment with Lupron; DR BAKRLEY [place] Pulmonary nodules Seborrheic dermatitis of scalp Shoulder fracture 02/2012 Supplemental oxygen dependent 02@2L AT NIGHT SVT (supraventricular tachycardia) (HCC) 01/[address] Wilder for ablation TIA (transient ischemic attack) SEVERAL. LAST TIME 2012.NO RESIDUAL; CT SCAN/ ANGIO IN PAST Vasovagal syncope Past Surgical History: Procedure Laterality Date ABLATION OF DYSRHYTHMIC FOCUS 03/19/2014 Laterality: N/A; Surgeon: Jennifer Wilder MD; Location: [facility] ELECTROPHYSIOLOGY ANGIOGRAM EARLY 1979 FOR TIA HISTORY APPENDECTOMY CATARACT REMOVAL 03/2013 Left CATARACT REMOVAL WITH IMPLANT 11/2011 Right Catheter ablation [place] COLONOSCOPY 2016 [facility]. Arellano COLONOSCOPY 03/18/2017 Postoperative Diagnosis: Minimal to moderate internal and external hemorrhoid. 03/18/2017 Conrado Arellano MD [facility] CYST REMOVAL from back EGD 01/24/2016 Dieulafoy's lesion EGD AND COLONOSCOPY 02/06/2015 Dr. Arellano IRRADIATION 2008 Leuprolide acetate injections x7 LUMBAR SPINE SURGERY 1987, 1989 Discectomy X2, Dr. Santo NASAL HEMORRHAGE CONTROL 05/2012 PANCREAS SURGERY 1973 Outpatient Encounter Medications as of 06/21/2019 Medication Sig Dispense Refill albuterol (PROAIR HFA) [...] powder Take by mouth. Respiratory Therapy Supplies [facility] Please provide an O2 concentrator while Diego [...] facility-administered encounter medications on file as of 06/21/2019. Allergies Allergen Reactions Penicillins Family History Problem Relation Age of Onset Stroke Mother Stroke Father Other (see comment) Father Gout Alcohol abuse Father Hypertension Son Hypertension Daughter Other (see comment) Daughter DVT Other (see comment) Other Family History of Cerebral artery aneurysm Prostate cancer Neg Hx Social History Socioeconomic History Marital status: Spouse name: Not on file Number of children: Not on file Years of education: Not on file Highest education level: Not on file Tobacco Use Smoking status: Former Smoker Packs/day: 0.30 Years: 20.00 Pack years: 6.00 Types: Cigarettes, Pipe Last attempt to quit: 09/22/2009 Years since quittin.7 Smokeless tobacco: Never Used Tobacco comment: quit pipe 2010 Substance and Sexual Activity Alcohol use: No Alcohol/week: 0.0 standard drinks Drug use: No Social History Narrative 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 Also expo sed to asbestos. His grandfather had tuberculosis, he is not sure if he has been tested. No pets at home. No other animal exposures. Grew up in [place]. Then lived in [place]. Then moved to [place]. In the service lived i [facility] and [place]. No recent travel. IPSS (International Prostate Symptom Score) 0=0 - Not at All 1=1 - Less than 1 in 5 times 2=2 - Less than half the time 3=3 - About half the time 4=4 - More than half the time 5=5 - Almost always IPSS (INTERNATIONAL PROSTATE SYMPTOM SCORE) 12/14/2018 03/13/2019 06/21/2019 1. Incomplete Emptying - How often have you had the sensation of not emptying your bladder? 3 3 1 2. Frequency - How often have you had to urinate less than every two hours? 3 3 2 3. Intermittency - How often have you found you stopped and started again several times whe n you urinated? 3 3 2 4. Urgency - How often have you found it difficult to postpone urination? 3 3 2 5. Weak Stream - How often have you had a weak urinary stream? 2 4 3 6. Straining - How often have you had to strain to start urination? 2 3 1 7. Nocturia - How many times did you typically get up at night to urinate? 2 3 1 Total: 18 22 12 Quality of Life Due to Urinary Symptoms 0=0 - Delighted 1=1 - Pleased 2=2 - Mostly satisfied 3=3 - Mixed 4=4 - Mostly dissatisfied 5=5 - Unhappy 6=6 - Terrible QUALITY OF LIFE (URINARY) 12/14/2018 03/13/2019 06/21/2019 If you were to spend the rest of your life with your urinary condition just the way it is n ow, how would you feel about that? 2 3 2 DIAGNOSTIC DATA: PSA Date Results 06/08/19 2.03 [facility] 12/12/18 0.681 [facility] [place] [facility] 11/25/17 7.17 [facility] [place] [facility] 08/26/17 4.44 05/28/17 2.56 04/28/17 1.49 02/27/17 1.27 12/28/15 0.247 06/29/15 0.217 04/04/15 3.39 01/04/15 5.65 09/25/14 4.57 11/2013 0.128 07/2013 5.38 10/2012 2.5 08/2011 0.0172 04/2011 1.32 06/2007 13.9 Lab Results Component Value Date CREA 0.94 03/19/2014 BUN 16 03/19/2014 NA 139 03/19/2014 K 3.9 03/19/2014 CL 109 03/19/2014 CO2 24 03/19/2014 IMPRESSION: Stage T2c to T3 Springer 4+3 = 7 adenocarcinoma the prostate, status post radiation in 2007 with post radiation ad juvant ADT 1.5 years Post radiation biochemical recurrence, with intermittent hormone ablation since 2013, last Lupron was given in May 2018,doing well Mild bladder outlet obstruction, impr elizabet with as neededtamsulosin PLAN Diego will continue with tamsulosin 0.4 mg p.o. daily to twice daily as needed. His PSA is s tarting to rise slightly, but he is not having any symptoms, and his PSA is still less than 5. I have suggested a follow-up in 3 months, with updated PSA and testosterone levels, as w ell as basic metabolic panel. If his PSA rises to between 5 and 10, I have suggested reinst itution of Lupron therapy. Until that time, we can continue to observe. He is agreeable wi th this plan. Diego will continue his regular and customary care and followup with his primary care provide r. I asked Diego to notify me immediately if he should experience any difficulties with voiding or if he has any questions or concerns or any problems whatsoever. Risks/benefits of treatment plan including no treatment were discussed. Discussed discharge instruction. AVS will be sent to patient via [employer] where available. Patient has not been seen in office within the past 7 days, and outcome of this call is not to recommend soonest available office visit. This visit was conducted via telephone. Service was provided with the patient via telephone Visit start time 08 Visit end time 09 Total time (in minutes) including non [id number] time (reviewing records, documentation, etc..) 22 min Clinical discussion length: 11-20 min ([id number]) This document was generated in part using [employer] voice recognition software. Although ever y effort is made to edit the content, aquacultural worker supervisor errors may occur. Occasional wrong word or sound alike substitutions may have occurred due to the inherent limitations of the voice recognition software. Please read the chart carefully and recognize, using context, where th eloy substitutions may have occurred. documented in t his encounter Plan of [...] | | | | | [place] [address] | | | | | | [phone] | | | | | | | | +--------+---------+ + + + + +------+--------+ + + | Name | Type | Priori | Associated Diagnoses | Order Schedule | | | | ty | | | + +------+--------+ + + | Basic Metabolic | Lab | Routin | Prostate cancer | 1 Occurrences | | Panel | | e | (HCC) Benign | starting 06/21/2019 | | | | | prostatic | until 06/21/2020 | | | | | hyperplasia, | | | | | | unspecified whether | | | | | | lower urinary tract | | | | | | symptoms present | | + +------+--------+ + + | PSA, Diagnostic | Lab | Routin | Prostate cancer | 1 Occurrences | | | | e | (HCC) Benign | starting 06/21/2019 | | | | | prostatic | until 06/21/2020 | | | | | hyperplasia, | | | | | | unspecified whether | | | | | | lower urinary tract | | | | | | symptoms present | | + +------+--------+ + + | Testosterone, Total | Lab | Routin | Prostate cancer | 1 Occurrences | | | | e | (HCC) Benign | starting 06/21/2019 | | | | | prostatic | until 06/20/2020 | | | | | hyperplasia, | | | | | | unspecified whether | | | | | | lower urinary tract | | | | | | symptoms present | | + +------+--------+ + + documented [...] | LABS - EXTERNAL SCAN | | 06/08/2019 | | Results for this | | | | 12:00 AM | | procedure are in the | | | | PDT | | results section. | + +--------+ + + + documented in this encounter Results LABS - EXTERNAL SCAN (08/01/2019 12:00 AM PDT) + + + | Narrative | Performed At | + + + | Ordered by an | | | unspecified provider. | | + + + LABS - EXTERNAL SCAN (06/08/2019 12:00 AM PDT) + + + | Narrative | Performed At | + + + | Ordered by an | | | unspecified provider. | | + + + documented in this encounter Visit Diagnoses + + | Diagnosis | + + | Prostate cancer (HCC) - Primary Malignant neoplasm of prostate | + + | Benign prostatic hyperplasia, unspecified whether lower urinary tract symptoms present | + + documented in this encounter
--- OUTSIDE RECORDS SUMMARY | ~2019-10-20 | XMS | Encounter Summary ---
Demographics + + + | Address | [address] | | | [place] [address] | + + + | Home Phone [...] Providers + +------+ + | Care Silver Wrapper Name | Role | Phone | + [...] Segura MD | | | | | [place], | | | | | | [place] [address] | | | | | | [phone] | | | +--------+--------+ + + + [...] | | | | | [place] [address] | | | | | | [phone] | | | | | | | | +--------+---------+ + + + documented as of this encounter Visit Diagnoses Not on filedocumented in this encounter"
--- OUTSIDE RECORDS SUMMARY | ~2019-10-20 | XMS | Encounter Summary ---
Demographics + + + | Address | [address] | | | [place] [address] | + + + | Home Phone [...] Organization | [facility] [...] Team Providers + +------+ + | Care Advanced Practice Nurse Name | Role | Phone | + +------+ + | Parviz Brar DO | PCP | | + +------+ + Encounter Details +--------+ + + + + | Date | Type | Department | Care Team | Description | +--------+ + + + + | 10/12/ | Abstract | [facility] [place] | Froylan Werner MD | | | 2016 | | GASTROENTEROLOGY | [address] [place] | | | | | [address] [place] | [address] [place], [place] | | | | | [address] [place], [place] | [address] | | | | | [address] | | | | | | [phone] | | | +--------+ + + + [...] | | | | | [place] [address] | | | | | | [phone] | | | | | | | | +--------+---------+ + + + documented as of this encounter Visit Diagnoses Not on filedocumented in this encounter"
--- OUTSIDE RECORDS SUMMARY | ~2019-10-20 | XMS | Encounter Summary ---
Demographics + + + | Address | [address] | | | [place] [address] | + + + | Home Phone [...] Providers + +------+ + | Care Field Aide Name | Role | Phone | [...] intranasal control | | | | Rd DCFANNY Lundberg | [address] | of epistaxis; | | | | Hospital Admitting | [place], [place] | ethmoid artery | | | | Desk Located on the | [address] | ligation; maxillary | | | | 9th floor | [phone] | sinus lavage | | | | [place], [place] | | | | | | [address] | | | +--------+---------+ + + + [...] medications Details oxymetazoline 0.05 % Nasal Aerosol, [place] Instill 2 Sprays into each nostril every six hour s as needed (Epistaxis). Use for only 3 days. sodium chloride 0.65 % Nasal Aerosol, [place] Instill 2 Sprays in nose every two [...] concerning symptoms, call Dr. Cherry's clinic at [phone]. If you fee l you are having [...] Wednesday for packing removal at 2:30 pm. Mario Alberto rees [phone] for questions. Destination: Destination: [facility] Condition [...] | | | 13 | | | [place] | every six hours as | | [...] | | 13 | | | Aerosol, [place] | while awake. | | | | [...] AM PDT PATIENT NAME: Diego Lucas MR#: [id number] : 1935 PRIMARY CARE PROVIDER: Parviz Brar [...] though he uses supplemental oxygen at his shelter located [facility]. ASSESSMENT: Mr. Lucas remains hospitalized for epistaxis [...] pack removal on Wednesday. Fredrick Cherry M.D. Sweat Band Sewer Laryngology and Head & Neck Surgery [facility] DEPARTMENT: ENT LARYNGOLOGY PPV - [phone] Place of Service: [id number] - Date of Service: 06/14/2012 CSN: [id number] Suggested Modifiers: GC - Resident Involved Suggested Level of Care: 62966 - Discharge Day mgmt up to 30 min redrick Cherry MD - 06/13/2012 11:21 PM PDT PATIENT NAME: Diego Lucas [facility] MR#: [id number] : 1935 PRIMARY CARE PROVIDER: Parviz Brar [...] if still not bleeding. Fredrick Cherry M.D. Swe[employer] Band Sewer Laryngology and Head & Neck Surgery [facility] DEPARTMENT: ENT LARYNGOLOGY PPV - [phone] Place of Service: [id number] - Date of Service: 06/13/2012 CSN: [id number] Suggested Modifiers: GC - Resident Involved Suggested Level of Care: 23135 - Subsequent, Prob Foc/low complex 15 min ush Moss MD - 06/13/2012 12:16 PM PDT [facility] Department of Surgery ENT Head & [...] -Recheck crit tomorrow am Dispo: Back to [facility] tomorrow. Dr. Fredrick Cherry MD is the attending of record for this patient encounter. RUSH MOSS MD PGY-1, Plastic and Reconstructive Surgery pgr [phone] Diagnoses: 784.7 Epistaxis 284527 Anemia Meds: amLODIPine (aka NORVASC) tablet 5 [...] (aka AFRIN) 0.05 % nasal spray 2 [place], 2 [place], both nostrils, Q6H polyethylene glycol (aka MIRALAX) powder 17 g, 17 g, Oral, DAILY promethazine (aka PHENERGAN) injection 12.5 mg, 12.5 mg, Intravenous, Q6H PRN sodium chloride (aka OCEAN) 0.65 % nasal spray 2 [place], 2 [place], Nasal, Q2H WA tamsulosin (aka FLOMAX) capsule 0.4 mg, 0.4 mg, Oral, QPM temazepam (aka RESTORIL) capsule 15 mg, 15 mg, Oral, HS PRN Fredrick Villasenor MD - 06/12/2012 9:17 PM PDT PATIENT NAME: Diego Lucas [facility] MR#: [id number] : 1935 PRIMARY CARE PROVIDER: Parviz Brar, BP 119/70 | Pulse 107 | Temp 37 C (98.6 F) | RR 18 | Ht 1.829 m (6') | Wt 68.04 kg (150 lb) | SpO2 90% | BMI 20.34 kg/(m^2) I have reviewed the resident's note for this day's hospitalization. [facility] I note: Mr. Lucas is comfortable. He is not bleeding. He has not noted any hemoptysis. He notes no visual problems. EXAM: The right nare has a pack in place. There is no bleeding noted. The oropharynx is clear. The right eye has full movement. The pupils are equal. Vision is grossly intact on the ri ght. There is no red desaturation. The [...] Observe for resumed bleeding. Fredrick Cherry M.D. Swe[employer] Band Sewer Laryngology and Head & Neck Surgery [facility] DEPARTMENT: ENT LARYNGOLOGY PPV - [phone] Place of Service: [address] [place] [address] Date of Service: 06/12/2012 CSN: [id number] Suggested Modifiers: GC - Resident Involved Suggested Level of Care: 92713 - Subsequent, Prob Foc/low complex 15 min [...] (aka AFRIN) 0.05 % nasal spray 2 [place], 2 [place], both nostrils, Q6H, Oc Calix MD, 2 [place] at 06/11/12 0218 polyethylene glycol (aka MIRALAX) powder 17 g, 17 g, Oral, DAILY, Oc Calix MD, 17 g at 06/10/12 0837 promethazine (aka PHENERGAN) injection 12.5 mg, 12.5 mg, Intravenous, Q6H PRN, Oc Calix MD, 12.5 mg at 06/10/12 2210 sodium chloride (aka OCEAN) 0.65 % nasal spray 2 [place], 2 [place], Nasal, Q2H WA, Mckenzie Freed MD, 2 [place] at 06/12/12 0127 tamsulosin (aka FLOMAX) capsule 0.4 mg, 0.4 mg, Oral, QPM, Oc Calix MD, 0.4 mg at 05/241 temazepam (aka RESTORIL) capsule 15 mg, 15 [...] packing in place. JOSE ANGEL EASTON MD rmando, Abilio Espino D - 06/11/2012 10:20 AM PDT Otolaryngology [...] (aka AFRIN) 0.05 % nasal spray 2 [place], 2 [place], both nostrils, Q6H, Oc Calix MD, 2 [place] at 06/11/12 0218 polyethylene glycol (aka MIRALAX) powder 17 g, 17 g, Oral, DAILY, Oc Calix MD, 17 g at 06/10/12 0837 promethazine (aka PHENERGAN) injection 12.5 mg, 12.5 mg, Intravenous, Q6H PRN, Oc Calix MD, 12.5 mg at 06/10/12 2210 sodium chloride (aka OCEAN) 0.65 % nasal spray 2 [place], 2 [place], Nasal, Q2H WA, Mckenzie Freed MD, 2 [place] at 06/10/12 2234 tamsulosin (aka FLOMAX) capsule 0.4 mg, 0.4 mg, Oral, QPM, Oc Calix MD, 0.4 mg at 05/23 11/04 223 temazepam (aka RESTORIL) capsule 15 mg, 15 mg, Oral, HS PRN, Oc Calix MD, 15 mg at 0234 Labs: Chemistries: Recent Labs Basename 06/11/12 0240 06/09/125 NA 139 136 K 4.0 4.2 CL [...] Hospital Day:2 Attending Physician: Fredrick Cherry MD Oc Arguelles MD - 06/10/2012 5:35 AM PDT Otolaryngology [...] 20 mg, 20 mg, Oral, QAM, Oc Cailx MD ondansetron (aka ZOFRAN) injection 4 mg, 4 mg, Intravenous, Q12H PRN, Oc Calix MD oxyCODONE (immediate release) (aka ROXICODONE) tablet 5 mg, 5 mg, Oral, Q6H PRN, Oc osorio MD, 5 mg at 06/10/12216 oxymetazoline (aka AFRIN) 0.05 % nasal spray 2 [place], 2 [place], both nostrils, Q6H, Oc Calix MD, 2 [place] at 06/10/12 0215 polyethylene glycol (aka MIRALAX) [...] Hours (or 3 results): Recent Labs Basename 06/09/12205406/07/126 NA 136 138 K 4.2 4.4 CL [...] Otolaryngology Head and Neck Surgery PGY2 pager [phone] documented in this enco unter H&P Notes [...] 9:17 AM PDTAss ociated Order(s): LAB REPORTS Janeth King MD - 06/12/2012 11:40 PM PDTAssociated Order(s): OPERATION RECORDDate: 06/11/2012 Attending Surgeon: Fredrick Cherry M.D. Special Librarian(s): Ray Cruz M.D. Mckenzie Freed MD Preoperative [...] Complications: None apparent. Specimens: None. Drains: Quarter-inch Shea in right medial orbital incision. Indications: Mr. [...] Avitene along the ethmoid bone. A quarter-inch [place] was then placed and the wound was [...] pulsations just anterior to this. Using a Stanton elevator we then made an incision through [...] M.D. Fredrick Cherry M.D. LALA / NEFTALY [id number] / [id number] / [id number] / inor Burnham MD - 06/10/2012 2:13 PM PDTAssociated Order(s): [...] 6:12 PM PDT PATIENT NAME: Diego Lucas [facility] MR#: [id number] : 1935 REFERRING PROVIDER: Manny Pena MD [...] and posterior epistaxis on the right wi multiple attempts at packing. The sphenopalatine and ethmoid arteries remain possible bl eeding sites. Should he bleed further, we would need to attempt operative treatment with ri ght anterior and posterior ethmoid artery ligation, transendoscopic sphenopalatine artery li gation and, possibly, anterior and posterior packing bilaterally. We discussed this at [facility], as well as the risks to vision, scarring around the eye and continued bleeding. He agre ed to proceed should bleeding resume. PLAN: I agree with the resident's plan with the following modifications: Will observe car efully with Afrin and nasal saline irrigations. Fredrick Cherry M.D. Sweat Band Sewer Laryngology and Head & Neck Surgery [facility] DEPARTMENT: ENT LARYNGOLOGY [facility] - [phone] Place of Service: [facility] - Date of Service: 06/10/12 CSN: [id number] Suggested Modifiers: GC - Resident Involved Suggested Level of Care: 94816 - Initial, Comp; Mod complex 50 min; Nasal Endoscopy, bilat eral uk, Oc Domingo MD - 06/09/2012 8:42 PM PDT Otolaryngology/Head and Neck Surgery Epistaxis Patient Consult Attending: Fredrick Cherry MD Referring MD: ED CC: right epistaxis HPI: Diego Lucas is a 76 y.o. male who has been seen by our service three times in the [place] [facility] days for recurrent epistaxis. He [...] bsequent bleeds, and was brought back to [facility] for further management. Hct has dropped from [...] hours (or 3 results) Recent Labs Basename 06/09/12205406/08/12 0606/07/12 2156 WBC -- 9.1 -- HB 8.8* [...] Otolaryngology Head and Neck Surgery PGY2 pager [phone] documented in thi s encounter ED Notes Manny Pena MD - 06/09/2012 8:22 PM PDTFormatting of this note might be different fr om the original. ED Shared Provider Note, co-authored by TAPAN PENA MD, MCR and TARIQ SEXTON MD,PhD: HPI Mr Shayy [...] inpatient (ENT) 9:36 PM, MANNY PENA MD, [facility] Faculty Teaching Attestation: I saw and evaluated the patient and discussed the diagnosis and management of the patient w ith the resident. I performed and confirmed the dhillon portions of the service. We have both co ntributed to this note using the [email or web address] share function. I have reviewed all nursing notes, vit als signs and diagnostic test results (where applicable EMS notes have also been reviewed). Changes or additions made to the above note will be in bold type. I agree with the documenta tion findings and plan of care. MANNY PENA MD, [facility] Accounts Payable Administrator of Emergency Medicine and Pediatrics [facility] Department of Emergency Medicine [facility] [place] [address] Yaima Alejandra Rn 06/09/2012 8:17 PM PDTPt moved to room 5, suction set up, given urinal and call light. Yaima Alejandra Rn - 06/09/2012 7:46 PM PDTEMS to RN: [...] 06/16/2012 9:16 AM PDT valuation - Susy morse, DIVYA Denis - 06/14/2012 4:49 PM PDTNursing [...] Stable lan of Care - Jaqueline Patterson [facility] - 06/14/2012 11:14 AM PDTProblem: RT Goals [...] on O2 at rest (%): 94 % (06/14/12 1108) Rate of O2 at rest (LPM): 2.5 LPM (06/14/12 1108) Ambulated patient?: Yes (06/14/121107) SpO2 on room air with ambulation (%): 86 % (06/14/121107) SpO2 on O2 with ambulation (%): 91 % (06/14/121107) Rate of O2 with ambulation (LPM): 2.5 LPM (06/14/121107) Dyspnea Index - Before: 0 (06/14/121107) Dyspnea Index - After: 4 (06/14/121107) Questions about the O2 evaluation can be referred to the RT Air Export Operations Agent by paging [phone] lan [facility] Jaqueline Juárez RCP - 06/14/2012 11:12 AM PDTProblem: RT Goals & Interventions Goal: Assess patient and arrange for respiratory DME at discharge Intervention: Establish medical necessity and identify repiratory DME needed for discharge The patient qualifies for the following respiratory DME upon discharge:Home oxygen continuo us Intervention: Identify barriers to discharge No barrier at this time Intervention: Order DME from outside vendor and arrange delivery DME has been ordered from [facility], patient already serviced by [facility]. Patient is in a Care facility, and case packer is ordering Wheelchair van service for disc harge. will also have the vans supply oxygen for patient. The RT manufacturing planner will continue to follow . Pager [phone] with any questions. lan of [facility] Cira Hamilton RN - 06/14/2012 10:37 AM PDTProblem: General Plan [...] prominences. Encourage adequate nutritional intake. lan of [facility] - Trent Hernandez - 06/14/2012 9:27 AM PDTPhysical Therapy 06/14/2012 9:27 AM Pt seen on Brief Hospital Course: Diego Lucas is a [...] able to ambul ate short distance in steawrd at a stand by level of assist. Dynamic standing balance mildly im proved this date, showing stability with turning, side steps and backwards steps. See care plan for goals. Updated Plan & Recommendations: Activity plan: Pt would benefit from short, frequent bouts of activity; front wheeled walke r in room. Discharge recommendations: 24 hour skilled care with ongoing therapies; likely back to [facility] today. Will follow should pt remain in-house. TRENT HERNANDEZ, PT can - Other, Faculty - 8:22 AM PDT can - Other, Faculty - 06/14/2012 8:22 AM PDT valuation - Muriel Farah, DIVYA - 06/14/2012 6:01 AM PDTProblem: General Kartik [...] ~800mL from nares 06/10 & 06/11 requiring STEEL RULE DIE MAKER APPRENTICE call, pack ing of nares, vargas catheter [...] 0545. Psych/social issues: very pleasant. Lives in [facility] with (also a resident there), [...] ~800mL from nares 06/10 & 06/11 requiring STEEL RULE DIE MAKER APPRENTICE call, pack ing of nares, vargas catheter [...] tires quickly. Patient Stability:Moderately Unstable lan of [facility] - Lillian Burger - 06/13/2012 1:31 PM PDTProblem: Case Management Goals Goal: Discharge Needs Met Case Management Initial Assessment Reason for Admission: Prolonged Epistaxis, Anemia Admitted From: [facility] Emergency Contact: Extended Emergency Contact Information Primary Emergency Contact: Jayce Lucas Relation: Son/Daughter Past Medical History: Epistaxis [784.7] Anemia [285.9] Epistaxis, CONTROL EPISTAXIS ENDOSCOPY NASAL (SOR ONLY) Lives With: spouse Living Arrangement: Home in [place] Functional Level Prior to Admission: independent Transportation Available: Equipment Currently used at Home/DME Provider: n/a Home Health/Infusion Agency: n/a Insurance/Funding: @PAYORNAME@, Medicare A/B Assessment: 76 yr old male transferred from [facility] s/p bilateral VANIA embolizati on by IR followed by right open anterior and posterior ethmoid artery ligation, endoscopic s phenopalatine artery ligation on 06/11. Doing well now with no signs of bleed though with low crit and orthostasis. Patient state his is a patient at [facility] an d he was admitted there as well after treatment for pneumonia at [facility]. After a rriving at [facility], patient developed epistaxis requiring transfer to [facility] for further treatm ent. Patient state his is still at [facility] and he anticipates returning there. Spoke wit [facility] liaison and confirmed that both patient and are under their care, and they a re holding a bed for patient's return. Plan for probable dc back to [facility] tomorrow. Case mg t to follow. [facility] [address] Anticipated Discharge Needs: Assessment done by: lan of Care - Janett Narvaez nd, DIVYA - 06/13/2012 12:38 PM PDTProblem: General Plan [...] answer call light in person andoff - Bar Janett Guerra, DIVYA - 06/13/2012 12:37 PM PDTPrimary focus of stay: Admit for recurrent e pistaxis, hx COPD, GERD, BPH, back surgeries Pertinent physical findings: 06/10 embolization done in IRU Pt had multiple episodes of bleeding ~800mL from nares 06/10 & 06/11 requiring STEEL RULE DIE MAKER APPRENTICE call, pack ing of nares, vargas catheter inserted into nare and balloon inflated to control bleeding 06/11 to OR, ethmoid arteries ligated Neuro: A&O x4 Cardiac:Tachy, team aware. On tele, 2 units PBRCs given 4-20 . Pt with episode of tachy to [...] complaining of generalized pain. Sp koko with MD re increased doseage Psych/social issues: very pleasant Last patient visit (i.e. Falls/Activity/Comfort/Environment/Toileting/Skin): hx of falls at home, weak and unsteady, SBA, calls appropriately Anticipated or pending procedures: DC in am? lan of Care - Trent Hernandez - 06/13/2012 9:30 AM PDTFormatting of this note might be different from the o riginal. Physical Therapy Evaluation 06/13/2012 9:30 AM Brief [...] surgery Living Environment: Pt has been at [facility] [place] [place] Usually lives with spouse (who is also at [facility]) in [facility] 2 level house (basement), 3 steps to enter, 1 flight of steps to basement (which he access es), tub-shower, no seat, standard height toilet. Prior Level of Function: Has been working with both OT and PT at [facility]. Endorses need for supervision only for ADLs and was walking around the entire facility without assistive devic e. Sits for showering and lower body dressing. Was working on increasing strength and endura nce. Had a fall in February, while at [facility] in which he was sitting on a stool and pas sed out and fell off the stool (per pt he had low blood counts) Patient / Family Goal: Go back to [facility] Barriers: none Pain: Does not quantify but [...] care with ongoing therapies. Likely back to [facility]. PLAN: Therapeutic activity, therapeutic exercise, transfer training, [...] surgery Living Environment: Pt has been at [facility] (was sent there from [facility] d/t pneumonia). Usually lives with spouse (who is also at [facility]) in [facility] 2 level house (basement), 3 steps to enter, 1 flight of steps to basement (which he acce sses), tub-shower, no seat, standard height toilet. Prior Level of Function: Has been working with both OT and PT at [facility]. Endorses need fo r supervision only for ADLs and was walking around the entire facility without assistive dev ice. Sits for showering and lower body dressing. Was working on increasing strength and en durance. Had a fall in February, while at [facility] in which he was sitting on a stool an d passed out and fell off the stool (per pt he had low blood counts) Patient / Family Goal: Go back to [facility] Barriers: none Pain: Endorses pain in abdomen/10 [...] pain for better compliance 4. Assess n/v [id number] and PRN. Treat with PRN and/or scheduled [...] ~800mL from nares 06/10 & 06/11 requiring STEEL RULE DIE MAKER APPRENTICE call, pack ing of nares, vargas catheter [...] ~800mL from nares 06/10 & 06/11 requiring STEEL RULE DIE MAKER APPRENTICE call, pack ing of nares, vargas catheter [...] pain for better compliance 4. Assess n/v [id number] and PRN. Treat with PRN and/or scheduled anti-emetics. Encourage smal l sips/bites. Educate on alternative techniques for nausea management (i.e. Side lying, dist raction, deep breathing). Interventions that worked/didn't work:*Interventions mentioned above My recommendations forward:Continue interventions Patient Stability:Moderately Unstable lan of Care - Heath Susan kirk RN - 06/12/2012 10:07 AM PDTProblem: General [...] pain for better compliance 4. Assess n/v [id number] and PRN. Treat with PRN and/or scheduled [...] ~800mL from nares 06/10 & 06/11 requiring STEEL RULE DIE MAKER APPRENTICE call, pack ing of nares, vargas catheter [...] of this note might be different from [facility]. Meets Phase I Discharge Criteria (Stable For [...] medication information: see MAR Functional Epidural: none SETTER HELPER: none Respiratory: RR: 21 , O2 Sat: 100 %, O2 Delivery: Simple mask Breath Sounds: WDL Except JOANNA: coarse LLL: diminished RUL: coarse RLL: diminished YAMILKA no Comment: no Cardiac: BP: 133/77 mmHg HR: 112 GI: Nausea/Vomiting Status: none Signs/Symptoms: Interventions: Assessment: Comments: : Last void: vargas in OR, removed prior to arrival in pacu Contact Name: JAYCE/ SON Contact Number: [phone] Family contacted: Comment: Belongings: andoff - Susan [...] called. put another nasal packing in. Pt sti [...] pain for better compliance 4. Assess n/v [id number] and PRN. Treat with PRN and/or scheduled [...] Labs Sent (06/11/12224) Situation: Situation: Paged by broker in charge. Pt having more epistaxis; pt has both [...] Caller: marbella Clemens RN (06/11/12224) Jose Renner STEEL RULE DIE MAKER APPRENTICE RN l an of Care - Muriel [...] pt denied CP SOB or other symptoms, MD notified, wants to continue b lood, also [...] team if it continues. Last pain assessment/reassessment: 07 Psych/social issues: none Last patient visit (i.e. [...] Embolization of Internal Maxillary Artery Angio (Fellow)/pager: Macki [phone] Fentanyl 100 Midazolam 2 Other Meds 4mg [...] (06/10/12 1200) Alternating Hand Movements: R/L Hand Fabricator Artificial Breast: strong (06/10/12 1200) , strong (06/10/12 1200) [...] 9:52 PM PDT9:52 PM, MANNY PENA MD, [facility] Faculty Teaching Attestation: I saw and evaluated the patient and discussed the diagnosis and management of the patient w ith the resident. I performed and confirmed the dhillon portions of the service. We have both co ntributed to this note using the [email or web address] share function. I have reviewed all nursing notes, vit als signs and diagnostic test results (where applicable EMS notes have also been reviewed). Changes or additions made to the above note will be in bold type. I agree with the documenta tion findings and plan of care. MANNY PENA MD, [facility] Accounts Payable Administrator of Emergency Medicine and Pediatrics [facility] Department of Emergency Medicine [address] [place] [address] [facility] Fournier - 06/09/2012 7:22 PM PDTAMR 311, eta 15, 76YOM, c/o nosebleed, coming from ID, gcs 1 5, sats 98% 4L, hr 93, rr 22, bp 114/76, IV est, CBG 97, [facility] Colin Lovell - 06/09/2012 6:47 PM PDTReq ed to ed non trauma transfer. Connecting Dr pena . 76 yom, has a recent pneumonia, has 2 packing in R joya now and still bleeding around it. Has black strings coming out the side. Some oozing and bleeding. C/o bleeding all day. [facility] has no ENT pet resort concierge, Dr Pena accepts the pt. Paged Grp [...] | | | een | | | [phone] | | | | | | 3 [...] view image for the detailed interpretation from [facility] results. | CARDIOLOGY | + + + + + + + + | Performing | Address | City/State/Zipcode | Phone Number | | Organization | | | | + + + + + | [facility] | [address] | [place], [place] | | | CARDIOLOGY | [address] | [address] | | + + + + + [...] [facility] | [address] | [place] [address] | | | SERVICES, CORE | [address] [...] | | | LABORATORY | | | IRANIAN | | | SERVICES, | | | [...] the MDRD equation recommended by the | [facility] | | National Kidney Disease Education [...] | + + + + + | [facility] | [address] | [place] [address] | | | SERVICES, CORE | [address] | | | + + + + + TROPONIN I, PLASMA (06/13/2012 7:17 PM PDT) + +-------+ + + + | Component | Value | Ref Range | Performed | Pathologist | | | | | At | Signature | + +-------+ + + + | TROPONIN I | <0.02 | <0.80 ng/mL | [facility] | | | | | | LABORATORY [...] [facility] | [address] | [place] [address] | | | NAYELI, RAFAEL | [address] | | | [...] | + + + + + | [facility] | [address] | [place] [address] | | | SERVICES, CORE | [address] | | | + + + + + OPERATION RECORD (06/13/2012 3:45 PM PDT) + + | Transcriptions | + + | Janeth Casiano MD - 06/12/2012 11:40 PM PDT Date: | | 06/11/2012ttending Surgeon: Fredrick Cherry M.D.Special Librarian(s): | | Janeth Casiano M.D. | | [...] | pulsations just anterior tothis. Using a Stanton elevator we then made an incision | [...] | | Elmer Casiano.Fredrick Cherry M.D.LALA / [id number] / [id number] / [id number] / T: | | 06/12/2012 | |superior [...] just anterior to | |this. Using a Stanton elevator we then made an incision through [...] a small gauze was placed over the [place] | |drain in the right medial Jimenez [...] | | | |JGL / HS | |[id number] / [id number] / [id number] / | | | | | + [...] | + + + + + | [facility] | [address] | [place] [address] | | | SERVICES, RAFAEL | [address] | | | + + + + + DUY (06/11/2012 11:32 PM PDT) + + + [...] [facility] | [address] | [place] [address] | | | SERVICES, CORE | PARK [...] | + + + + + | [facility] | [address] | [place] [address] | | | SERVICES, CORE | ELIECER [...] PONCE | [address] | [place], [place] | | | SOPHIA GUERRERO OF KRISTIN | [address] | [address] | | | TESTS | | | [...] | | | POC | | | [place] | | [...] + + + | V[facility] PONCE | [address] | [place], [place] | | | SOPHIA GUERRERO OF [facility] | [address] | [address] | | | TESTS | | | [...] + + + + | PRODUCT | [id number] | | [facility] | | | UNIT [...] + + + + | BLOOD | 48610 | | [facility] | | | PRODUCT [...] + | [facility] | [address] | [place] [address] | | | PATHOLOGY | [address] [...] + + + + | PRODUCT | [id number] | | [facility] | | | UNIT [...] + + + + | BLOOD | 30810 | | [facility] | | | PRODUCT [...] | + + + + + | [facility] | [address] | [place] [address] | | | PATHOLOGY | [address] [...] + + + | Please click | [facility] | | on view image for the detailed interpretation from [facility] results. | CARDIOLOGY | + + + + + + + + | Performing | Address | City/State/Zipcode | Phone Number | | Organization | | | | + + + + + | [facility] | [address] | [place], [place] | | | CARDIOLOGY | [address] | [address] | | + + + + + [...] + + + + + | VERENA ATKINSON | [address] | [place] [address] | | | SERVICES, RAFAEL | [address] [...] | + + + + + | [facility] | [address] [facility] | [place] [address] | | | RAFAEL TYLER | [address] [...] [facility] | [address] | [place] [address] | | | SERVICES, CORE | [address] [...] + + + + | PRODUCT | [id number] | | [facility] | | | UNIT [...] + + + + | BLOOD | 14303 | | [facility] | | | PRODUCT [...] | + + + + + | [facility] | [address] | [place] [address] | | | PATHOLOGY | [address] [...] + + + + | PRODUCT | [id number] | | [facility] | | | UNIT [...] + + + + | BLOOD | 45704 | | [facility] | | | PRODUCT [...] | + + + + + | [facility] | [address] | [place] [address] | | | PATHOLOGY | [address] [...] + + + + | PRODUCT | [id number] | | [facility] | | | UNIT [...] + + + + | BLOOD | 46799 | | [facility] | | | PRODUCT [...] | + + + + + | [facility] | [address] | [place] [address] | | | PATHOLOGY | [address] [...] [facility] | [address] | [place] [address] | | | SERVICES, CORE | PARK [...] | | | LABORATORY | | | IRANIAN | | | SERVICES, | | | [...] | + + + + + | [facility] | [address] [facility] | [place] [address] | | | SERVICES, CORE | [address] [...] [facility] | [address] | [place] [address] | | | SERVICES, CORE | PARK [...] | + + + + + | [facility] | [address] | [place] [address] | | | SERVICES, [facility] | [address] | | | + [...] Webber, | | | | | | Ray NUMERICAL CONTROL MACHINE MACHINIST SURGEONS: | | | | | | [...] | | | | | Bentson wire,a 6-Vietnamese | | | | | | short sheath was | | | | | | placed. Through the | | | | | | 6-Vietnamese shortsheath, a | | | | | | 6-Vietnamese Envoy was | | | | | [...] Through | | | | | | Sukhwinder an 021 | | | | | [...] Final/Electronically | | | | | | antonio / RIMA WEBBER | | | | [...] | | + +---------+ + + | [facility] | | | | | [...] [facility] | [address] | [place] [address] | | | SERVICES, | [address] [...] | + + + + + | [facility] | [address] | [place] [address] | | | SERVICES, | [address] [...] | + + + + + | [facility] | [address] | [place] [address] | | | SERVICES, CORE | [address] | | | + + + + + CHEM 8 W/H&YANG Azevedo (06/09/2012 8:55 PM PDT) + +---------+ + [...] - | | | | | | [facility] | | | [...] | | POC | | g/dL | [facility] | | | | | | SOPHIA GUERRERO | | | | | | OF CARE | | | | | | TESTS | | + +---------+ + + + | HEMATOCRIT, | 26 (L) | 41.0 - 53.0 | [facility] - | | | POC | | %PCV | [facility] | | | | | | SOPHIA [...] PONCE | [address] | [place], [place] | | | SOPHIA GUERRERO OF [facility] | [address] | [address] | | | TESTS | | | [...] 13 7:14 | | | | | 13 at 1914, Until Sat | | PM PDT | | | | | 13 at 1930 | | | | | [...] | | | | | 06/11/12 at 1931 | | | | [...]
--- OUTSIDE RECORDS SUMMARY | ~2019-10-20 | XMS | Encounter Summary ---
Demographics + + + | Address | [address] | | | [place] [address] | + + + | Home Phone [...] Team Providers + +------+ + | Care Blueprinter Name | Role | Phone | + [...] 09/26/ | Refill | [facility] | Jorje Rutledge | Medication Refill | | 2017 | | [address] | [address] | | | | | [place] | [address] | | | | | [address] | [place] [address] | | | | | [phone] | [phone] | | | | | | | [...] | | | | | [place] [address] | | | | | | [phone] | | | | | | | | +--------+---------+ + + + documented as of this encounter Visit Diagnoses Not on filedocumented in this encounter"
--- OUTSIDE RECORDS SUMMARY | ~2019-10-20 | XMS | Encounter Summary ---
Demographics + + + | Address | [address] | | | [place] [address] | + + + | Home Phone [...] | Organization | [facility] [...] Providers + +------+ + | Care Business Unit Manager Name | Role | Phone | + +------+ + | Parviz Brar DO | PCP | | + +------+ + Encounter Details +--------+ + + + + | Date | Type | Department | Care Team | Description | +--------+ + + + + | 06/16/ | Hospital | [facility] IP | Conversion | Pain | | 2017 | Encounter | CONVERSION [address] | Transaction, | | | | | [address] | Provider Unknown | | | | | [place], [place] | [phone] | | | | | [address] | | | | | | [phone] | | | +--------+ + + + [...] | | | | | [place] [address] | | | | | | [phone] | | | | | | | [...]
--- OUTSIDE RECORDS SUMMARY | ~2019-10-20 | XMS | Encounter Summary ---
Demographics + + + | Address | [address] | | | [place] [address] | + + + | Home Phone [...] Team Providers + +------+ + | Care Leaf Sticker Name | Role | Phone | + [...] + + | 05/30/ | Office | [facility] | Jorje Rutledge | Prostate cancer | | 2019 | Visit | [address] | [address] | ([facility]) (Primary Dx) | | | | [place], [place] | [address] | | | | | [address] | [place] [address] | | | | | [phone] | [phone] | | | | | | | [...] fracture, COPD (chronic obstructive pulmonary dis ease) ([facility]), Depression, Dermatophytosis tinea capitis, Diverticulosis (01/2015), Essential hypertension, Foot fracture (02/2012), Gastritis (01/2015), GI bleed (01/2015), Heart murmur, Heartburn, Hiatal hernia (01/2015), History of rectal bleeding, Hypoxia, Insomnia, Internal bleeding (2017), Iron deficiency anemia, Kidney stone (2004), Lumbar disc herniation, Migra marcelino, Mood disorder ([facility]) of unknown (axis III) etiology, Nocturnal hypoxia, Osteoarthritis, Peptic ulcer disease, Pneumonia (05/2012), Prostate cancer ([facility]) (2007), Pulmonary nodules, Seborrheic dermatitis of scalp, Shoulder fracture (02/2012), Supplemental oxygen dependent, S VT (supraventricular tachycardia) ([facility]) (01/2014), TIA (transient ischemic attack), [...] powder Take by mouth. 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 Although ever y effort is made to edit the content, yarrow gatherer errors may occur. Occasional wrong word or [...] | | | | | [place] [address] | | | | | | [phone] | | | | | | | [...] CONF | e | 9:34 AM | ([facility]) | procedure are in the [...] - 1.030 | | | | [place], | | | | | | UA, [...]
--- OUTSIDE RECORDS SUMMARY | ~2019-10-20 | XMS | Encounter Summary ---
Demographics + + + | Address | [address] | | | [place] [address] | + + + | Home Phone [...] Providers + +------+ + | Care Correctional Officer Captain Name | Role | Phone | + [...] RN | obstructive | | | | [place], | | pulmonary disease) | | | | [place] [address] | | ([facility]); Nocturnal | | | | [phone] | | hypoxemia | +--------+ + + [...] | | | | | [place] [address] | | | | | | [phone] | | | | | | | | +--------+---------+ + + + documented as of this encounter Visit Diagnoses + + | Diagnosis | + + | COPD (chronic obstructive pulmonary disease) (HCC) Chronic airway obstruction, not | | elsewhere classified | + + | Nocturnal hypoxemia Hypoxemia | + + documented in this encounter"
--- OUTSIDE RECORDS SUMMARY | ~2019-10-20 | XMS | Encounter Summary ---
Demographics + + + | Address | [address] | | | [place] [address] | + + + | Home Phone [...] | Organization | [facility] [...] Providers + +------+ + | Care Sand System Operator Name | Role | Phone | + +------+ + PCP | Unavailable | + +------+ + Encounter Details +--------+ + + + + | Date | Type | Department | Care Team | Description | +--------+ + + + + | 01/10/ | Hospital | [facility] | | | | 2007 - | Encounter | [facility] CAN[facility] | | | | | | CENTER [address] | | | | 01/21/ | | [place] | | | | 2007 | | [address] | | | | | | [phone] | | | +--------+ + + + [...] | | | | | [place] [address] | | | | | | [phone] | | | | | | | | +--------+---------+ + + + documented as of this encounter Visit Diagnoses Not on filedocumented in this encounter"
--- OUTSIDE RECORDS SUMMARY | ~2019-10-20 | XMS | Encounter Summary ---
Demographics + + + | Address | [address] | | | [place] [address] | + + + | Home Phone [...] Team Providers + +------+ + | Care Environmental Remediation Engineer Name | Role | Phone | + +------+ + PCP | Unavailable | + +------+ + Encounter Details +--------+ + + + + | Date | Type | Department | Care Team | Description | +--------+ + + + + | 01/05/ | Hospital | [facility] | | | | 1999 | Encounter | MED CTR XRAY [address] | | | | | | [address] | | | | | | [place] [address] | | | | | | [phone] | | | +--------+ + + + [...] | | | | | [place] [address] | | | | | | [phone] | | | | | | | | +--------+---------+ + + + documented as of this encounter Visit Diagnoses Not on filedocumented in this encounter"
--- OUTSIDE RECORDS SUMMARY | ~2019-10-20 | XMS | Encounter Summary ---
Demographics + + + | Address | [address] | | | [place] [address] | + + + | Home Phone [...] Team Providers + +------+ + | Care Jewelry Sorter Name | Role | Phone | + +------+ + PCP | Unavailable | + +------+ + Encounter Details +--------+ + + + + | Date | Type | Department | Care Team | Description | +--------+ + + + + | 06/15/ | Hospital | [facility] | [place], | | | 2011 | Encounter | MED CTR XRAY [address] | Becca Segura MD | | | | | [address] | | | | | | [place] [address] | | | | | | [phone] | | | +--------+ + + + [...] | | | | | [place] [address] | | | | | | [phone] | | | | | | | [...] Performed At | + + + | [facility] Diagnostic Imaging Department | [facility] | | [address] [facility] | [facility] | | CHEST CT WITHOUT IV CONTRAST | DIAG IMG | | 06/16/2011 CLINICAL HISTORY: PULMONARY NODULES [...] Transcribed Date/Time: | | | 06/17/2011 14:38 Therapeutic Sales Specialist: <Electronically Signed | | | by Krzysztof Jewell MD> 06/18/11 0757 | | + + + + + | Procedure Note | + + | Roosevelt, Rad Conversion - 03/31/2013 5:11 PM formerly [facility] | | Diagnostic Imaging Department [address] [place] [address] | | CHEST CT WITHOUT IV CONTRAST [...] <Electronically Signed by Krzysztof Jewell MD> 06/18/11 6638 | |clerotic vascular calcifications noted. Partially imaged [...] 14:31 | |Transcribed Date/Time: 06/17/2011 14:38 | |Therapeutic Sales Specialist: | |<Electronically Signed by Krzysztof Jewell MD> [...]
--- OUTSIDE RECORDS SUMMARY | ~2019-10-20 | XMS | Encounter Summary ---
Demographics + + + | Address | [address] | | | [place] [address] | + + + | Home Phone [...] Team Providers + +------+ + | Care Switchboard Clerk Name | Role | Phone | + +------+ + | Parviz Brar DO | PCP | | + +------+ + Encounter Details +--------+ + + + + | Date | Type | Department | Care Team | Description | +--------+ + + + + | 06/16/ | Hospital | [facility] GENER[facility] IP | Conversion | Pain | | 2017 | Encounter | CONVERSION [address] | Transaction, | | | | | [address] | Provider Unknown | | | | | [place], [place] | [phone] | | | | | [address] | | | | | | [phone] | | | +--------+ + + + [...] | | | | | [place] [address] | | | | | | [phone] | | | | | | | [...]
--- OUTSIDE RECORDS SUMMARY | ~2019-10-20 | XMS | Encounter Summary ---
Demographics + + + | Address | [address] | | | [place] [address] | + + + | Home Phone [...] Organization | [facility] [...] | NA | | | | | [place] | | + + + + + | Candis Beyer | ECON | NA | | | | | FILEMON LIND | | + + + + + Care Team Providers + +------+ + | Care Home Mission Worker Name | Role | Phone | [...] + + | 10/27/ | Office | [facility] | Jorje Rutledge | Prostate cancer | | 2017 | Visit | [address] | [address] | ([facility]) (Primary Dx) | | | | [place] | [address] | | | | | [address] | [facility] [place] [address] | | | | | [phone] | [phone] | | | | | | | [...] history ofT2c or T3 adenocarcinoma the prostate, [place] 4+3 = 7, which was diagnosed in [...] bilateral; COPD (chronic obstructive pu lmonary disease) ([facility]); Depression; Diverticulosis (01/2015); Foot fracture (02/2012); Gastri tis (01/2015); GI bleed (01/2015); Heart murmur; Heartburn; Hiatal hernia (01/2015); History of rectal bleeding; Hypertension; Insomnia; Kidney stone (2004); Lumbar disc herniation; Mi graines; Mood disorder ([facility]) of unknown (axis III) etiology; Nocturnal hypoxia; Osteoarthrit is; Peptic ulcer disease; Pneumonia (05/2012); Prostate cancer ([facility]) (2007); Pulmonary nodule s; Shoulder fracture (02/2012); Supplemental oxygen dependent; SVT (supraventricular tachycar anushka) ([facility]) (01/2014); and TIA (transient ischemic [...] PO) Take by mouth. Respiratory Therapy Supplies [facility] [...] 06/26/16 0.140 12/28/15 0.247 160.217 163.39 01/04/20155.65 154.57 11/20130.128 07/20135.38 10/20122.5 08/20110.0172 04/20111.32 06/200713.9 BUN and creatinine are 16 and 0.79 respectively within EGFR greater than 60 on 10/24/2016 IMPRESSION: Stage T2c to T3 [place] 4+3 [...] have not thoroughly proofread this note, and masticator erro rs may occur. documented in th is encounter Plan of Treatment +--------+---------+ + + + | Date | Type | Specialty | Care Team | Description | +--------+---------+ + + + | 12/26/ | Office | Urology | Jroje Rutledge | | | 2019 | Visit | | [address] | | | | | | [place] [address] | | | | | | [place] [address] | | | | | | [phone] | | | | | | | [...] 1.001 - 1.030 | | | | [place], | | | | | | UA, [...]
--- OUTSIDE RECORDS SUMMARY | ~2019-10-20 | XMS | Encounter Summary ---
Demographics + + + | Address | [address] | | | [place] [address] | + + + | Home Phone [...] Team Providers + +------+ + | Care International Logistics Analyst Name | Role | Phone | + +------+ + | Parviz Brar DO | PCP | | + +------+ + Encounter Details +--------+ + + + + | Date | Type | Department | Care Team | Description | +--------+ + + + + | 04/14/ | Hospital | [facility] | [place], | | | 2013 | Encounter | MED CTR GENERIC OP | Becca Segura MD | | | | | CONV DEPT [address] | | | | | | [place], | | | | | | [place] [address] | | | | | | [phone] | | | +--------+ + + + [...] | 1 | 3 | 11/29/19 | 10/27/201 | | ([facility]) [address] | the [...] | | | | | [place] [address] | | | | | | [phone] | | | | | | | | +--------+---------+ + + + documented as of this encounter Visit Diagnoses Not on filedocumented in this encounter"
--- OUTSIDE RECORDS SUMMARY | ~2019-10-20 | XMS | Encounter Summary ---
Demographics + + + | Address | [address] | | | [place] [address] | + + + | Home Phone [...] Team Providers + +------+ + | Care Skate Boarder Name | Role | Phone | + +------+ + PCP | Unavailable | + +------+ + Encounter Details +--------+ + + + + | Date | Type | Department | Care Team | Description | +--------+ + + + + | 09/07/ | Hospital | [facility] | [place], | | | 2011 | Encounter | MED CTR XRAY [address] | Becca Segura MD | | | | | [address] | | | | | | [place] [address] | | | | | | [phone] | | | +--------+ + + + [...] documented as of this encounter Miscellaneous Notes Miscellaneous - Omar Sage MD - 09/08/2011 1:04 PM PDTDATE: 09/08/2011 HOLTER MONITOR REPORT REFERRING PHYSICIAN: Becca Castro MD INDICATIONS: Presyncope with use of Advair. RESULTS: A total of 48 hours and 10 minutes were analyzed with a heart rate ranging from a minimum of 60 to a maximum of 129, with a mean heart rate of 84 beats per minute. Underlyi ng rhythm was sinus. There were 42 isolated PVCs, without any couplets or runs. There were also 98 isolated PACs, including 3 couplets and a single 5-beat run, at a rate of 158 beats per minute. There were no episodes of significant bradycardia or pauses noted. The patient described using Advair on 2 occasions, and 1 case resulting in symptoms of feeling "dizzy , with a hot flash," which did not correlate with any significant dysrhythmias. IMPRESSION A 24-HOUR HOLTER MONITOR, NOTABLE FOR UNDERLYING SINUS RHYTHM, WITH A MEAN HEART RATE OF 8 4 BEATS PER MINUTE, OCCASIONAL ISOLATED PREMATURE VENTRICULAR COMPLEXES AND PREMATURE ATRIA L CONTRACTIONS, INCLUDING A BRIEF RUN OF SUPRAVENTRICULAR TACHYCARDIA, WITHOUT ANY SIGNIFIC ANT BRADYARRHYTHMIAS NOTED, AND NO SYMPTOMS CORRELATION. DICTATED BY: Omar Sage MD, PhD Cardiology JOB #: [id number] EXT JOB #:[id number] EDITED: 09/21/2011 14:23 cc: Becca Castro MD <Electronically Signed by Cresencio Sage MD> 09/21/11 3915 documented in this encounter Plan of Treatment +--------+---------+ + + + | Date | Type | Specialty | Care Team | Description | +--------+---------+ + + + | 12/26/ | Office | Urology | Jorje Rutledge | | | 2020 | Visit | | [address] | | | | | | [address] | | | | | | [place] [address] | | | | | | [phone] | | | | | | | [...] | [facility] Diagnostic Imaging Department | [facility] | | [address] [facility] | [facility] | | CHEST CT WITHOUT CONTRAST, 17 [...] Transcribed | | | Date/Time: 09/09/2011 14:01 Boiler Assistant Operator: | | | <Electronically Signed by Krzysztof Jewell MD> 09/10/11 0719 | | + + + + + | Procedure Note | + + | Roosevelt, Rad Conversion - 03/31/2013 5:[address] [facility] | | Diagnostic Imaging Department | | [address] [place] | | | | | | | [...] | Transcribed Date/Time: 09/09/2011 14:01 | | Boiler Assistant Operator: | | <Electronically Signed by Krzysztof Jewell [...]
--- OUTSIDE RECORDS SUMMARY | ~2019-10-20 | XMS | Encounter Summary ---
Demographics + + + | Address | [address] | | | [place] [address] | + + + | Home Phone [...] + | Organization | [facility] | [...] Providers + +------+ + | Care Hand Candle Dipper Name | Role | Phone | + +------+ + PCP | Unavailable | + +------+ + Reason for Visit + +--------+ + | Reason | Onset | Comments | | | Date | | + +--------+ + | Appointment | 03/24/ | | | | 2012 | | + +--------+ + Encounter Details +--------+ + + + + | Date | Type | Department | Care Team | Description | +--------+ + + + + | 03/24/ | Telephone | [facility] [place] | [place], | Appointment | | 2012 | | PULMONARY [address] | Becca Segura MD | | | | | [place], | | | | | | [place] [address] | | | | | | [phone] | | | +--------+ + + + [...] Notes Telephone Encounter - Kendra Morrissey - 03/24/2012 11:13 AM PSTLeft a message for Diego virk and schedule follow up visit with Dr. [...] | | | | | [place] [address] | | | | | | [phone] | | | | | | | | +--------+---------+ + + + documented as of this encounter Visit Diagnoses Not on filedocumented in this encounter"
--- OUTSIDE RECORDS SUMMARY | ~2019-10-20 | XMS | Encounter Summary ---
Demographics + + + | Address | [address] | | | [place] [address] | + + + | Home Phone [...] Team Providers + +------+ + | Care Glove Factory Sewer Name | Role | Phone | [...] | 01/03/ | Refill | [facility] | Jorje Rutledge | Medication Refill | | 2017 | | [address] | [address] | | | | | [place] | [address] | | | | | [address] | [place] [address] | | | | | [phone] | [phone] | | | | | | | [...] | | | | | [place] [address] | | | | | | [phone] | | | | | | | | +--------+---------+ + + + documented as of this encounter Visit Diagnoses Not on filedocumented in this encounter"
--- OUTSIDE RECORDS SUMMARY | ~2019-10-20 | XMS | Encounter Summary ---
Demographics + + + | Address | [address] | | | [place] [address] | + + + | Home Phone [...] Team Providers + +------+ + | Care Facility Maintenance Worker Name | Role | Phone | [...] Services | | Prostate | Odetteenstein, | Jorje Dumont, | | | Required | | cancer (HCC) | Becca Segura, | MD [address] | | | | | | MD [address] | [address] | | | | | | [address] | [place], | | | | | | [place], | [place] [address] | | | | | | [place] [address] | Phone: | | | | | | | [phone] | | | | | | | Fax: | | | | | | | [phone] | +--------+ + + + + + Encounter Details +--------+---------+ + + + | Date | Type | Department | Care Team | Description | +--------+---------+ + + + | 06/29/ | Office | [facility] | Jorje Rutledge | Prostate cancer | | 2017 | Visit | [address] | MD Tim [address] | (HCC) (Primary Dx) | | | | [place] | [place] | | | | | [address] | [place] [address] | | | | | [phone] | [phone] | | | | | | | [...] Foot fracture (02/2012); SVT (supraventricular tachycardia) ([facility]) (01/2014); Depression; Prostate cancer ([facility]) (2007) ; COPD (chronic obstructive pulmonary disease) [...] Take by mouth. Respiratory Therapy Supplies [facility] [...] leukocyte esterase PSA 06/26/16 0.140 12/28/15 0.247 160.217 163.39 01/04/20155.65 8154.57 11/20130.128 .38 .5 .0172 .32 .9 IMPRESSION: Stage T2c to T3 [...] have not thoroughly proofread this note, and bottom liner erro rs may occur. documented in th [...] | | | | | [place] [address] | | | | | | [phone] | | | | | | | [...] | | Panel | | e | ([facility]) | (Approximate), | | | | | [...] CONF | e | 9:42 AM | ([facility]) | procedure are in the | | [...] 1.001 - 1.030 | | | | [place], | | | | | | UA, [...]
--- OUTSIDE RECORDS SUMMARY | ~2019-10-20 | XMS | Encounter Summary ---
Demographics + + + | Address | [address] | | | [place] [address] | + + + | Home Phone [...] + + + | Author | [facility] | | | and [place] | + + + | Organization | [facility] | | | [...] Team Providers + +------+ + | Care French Edge Operator Name | Role | Phone | + +------+ + | Jason Read | PCP | | | MD | | | + +------+ + Encounter Details +--------+ + + + + | Date | Type | Department | Care Team | Description | +--------+ + + + + | 08/13/ | Imaging | [facility] | Provider, | | | 2019 | Exam | [facility] | MD Anne [address] | | | | | IMAGING [address] | [address] | | | | | [address] [place] | [place] [address] | | | | | [place] [address] | | | | | | [phone] | | | +--------+ + + + [...] | | | | | [place] [address] | | | | | | [phone] | | | | | | | [...] + documented in this encounter Results CT Abdomen Pelvis w wo Contrast (08/04/2019 [...]
--- OUTSIDE RECORDS SUMMARY | ~2019-10-20 | XMS | Encounter Summary ---
Demographics + + + | Address | [address] | | | [place] [address] | + + + | Home Phone [...] Team Providers + +------+ + | Care Outreach Nurse Name | Role | Phone | [...] Segura MD | | | | | [place], | | | | | | [place] [address] | | | | | | [phone] | | | +--------+--------+ + + + [...] | | | | | [place] [address] | | | | | | [phone] | | | | | | | | +--------+---------+ + + + documented as of this encounter Visit Diagnoses Not on filedocumented in this encounter"
--- OUTSIDE RECORDS SUMMARY | ~2019-10-20 | XMS | Encounter Summary ---
Demographics + + + | Address | [address] | | | [place] [address] | + + + | Home Phone [...] Providers + +------+ + | Care Air Conditioning Installer Name | Role | Phone | + +------+ + | Parviz Brar DO | PCP | | + +------+ + Reason for Visit +--------+--------+ + | Reason | Onset | Comments | | | Date | | +--------+--------+ + | Other | 06/14/ | oxygen for Terri frias | | | 2013 | | +--------+--------+ + Encounter Details +--------+ + + + + | Date | Type | Department | Care Team | Description | +--------+ + + + + | 06/14/ | Telephone | [facility] [place] | Odetteenstein, | Other (oxygen for | | 2013 | | PULMONARY [address] | Becca Segura MD | Terri frias) | | | | [place], | | | | | | [place] [address] | | | | | | [phone] | | | +--------+ + + + [...] Telephone Encounter - Dina Garcia RN - 06/14/2013 2:21 PM KUNAL called Destiny in [facility] and she suggested Diego call [place] and try and find a DME company there. I called [employer] and Molly found the name "[employer]" at [phone]/fax [phone]. They charge $150 per week (no tax), Medicare will not cover this (they have to live there more t garcia 6 months). Patient can attempt to obtain reimbursement from Medicare if they choose. The y also offer delivery/picket labor union for $75 round trip. They would need a prescription faxed to [facility] for the oxygen. The other company there is "[employer]" at [phone]/fax [phone] and they charge $100 per week plus a $500 refundable deposit. They have delivery/picket labor union av ailable, flores dependent on distance. Would need to fax them order. Notified Diego of the opti ons, he will contact us if he'd like us to fax a prescription for him. I told him he should be sure and call the one he wants to rent from to be sure they are close to where he's [facility]. elephone Encou nter - Dina Garcia RN - 06/14/2013 10:45 AM PDTRex calls to say that they're [place] a trip to [place] and Destiny, his oxygen provider, said they have no one there that can [place] pply that to him. I told him I'd do some checking and let him know what I find. Electronical ly signed by Dina Garcia RN at 06/14/2013 10:46 AM PDTdocumented in this encounter Plan of [...] | | | | | [place] [address] | | | | | | [phone] | | | | | | | | +--------+---------+ + + + documented as of this encounter Visit Diagnoses Not on filedocumented in this encounter
--- OUTSIDE RECORDS SUMMARY | ~2019-10-20 | XMS | Encounter Summary ---
Demographics + + + | Address | [address] | | | [place] [address] | + + + | Home Phone [...] Team Providers + +------+ + | Care Ticket Maker Name | Role | Phone | [...] | | | | | Solitary | Matthew, | Imaging [address] | | | | | pulmonary | Becca B, | [address] | | | | | nodule | MD [address] [place] | | | | | Procedures | [address] | [place], [place] | | | | | CT Chest wo | [place], | [address] | | | | | Contrast | [place] [address] | Phone: | | | | | | | [phone] | | | | | | | Fax: | | | | | | | [phone] | +--------+--------+ + + + + Encounter Details +--------+ + + + + | Date | Type | Department | Care Team | Description | +--------+ + + + + | 09/06/ | Hospital | [facility] | Offenstein, | Solitary pulmonary | | 2012 | Encounter | MED CTR XRAY [address] | Becca Segura MD | nodule | | | | [address] [place] | | | | | | [place] [address] | | | | | | [phone] | | | +--------+ + + + [...] + documented as of this encounter Progress Roshni Edmondson RN - 09/07/2012 9:59 AM PDTCall to patient per request of Dr. Castro. To steel grinder to schedule appt and follow up CT [...] | | | | | [place] [address] | | | | | | [phone] | | | | | | | [...] Performed At | + + + | [facility] | VEVAY | | Department [address] [facility] [place] | [facility] | | [ rep [address]] [ rep [facility] | | st zip] Signed | - IMAGING | | | | | Patient Name: DIEGO LUCAS Chayo Physician: | | | OFFE.01 : 1935 Age: 76 Sex: M Unit #: [id number] | | | Exam Date: 09/06/12 Location: [facility] | | | Report #: [id number] Page: | | | %(RAD)RES..mtdd.print.filter("pg") of %(RAD) | | | RES..mtdd.print.filter("tpg") | | | | | | Accession Number: [id number] | | | CT CHEST WITHOUT CONTRAST [...] Transcribed | | | Date/Time: 09/06/2012 16:10 Network Technology Instructor: | | | <<Signature on File>> | | | | | | Gurdeep Diaz MD09/07/12 0729 <Electronically signed by | | | Gurdeep Diaz MD> Gurdeep Diaz MD 09/06/12 | | | 6217 Network Technology Instructor: [employer] Kdzvitylhetqe21/16/13 1610 | | | Becca Castro MD | | + + + + + + + + | Performing | Address | City/State/Zipcode | Phone Number | | Organization | | | | + + + + + | [facility] | [address] | [place] | [phone] | | [facility] | | [address] | | | - IMAGING | | | | + + + + + documented in this encounter Visit Diagnoses + + | Diagnosis | + + | Solitary pulmonary nodule | + + documented in this encounter
[~2019-10-20 10:42] MED LIST changes: +AZITHROMYCIN250 MG PO; +CEFPODOXIME PR200 MG PO; +MOMETASONE FURO15 G1; +ZITHROMAX250 MG PO
--- OUTSIDE RECORDS SUMMARY | 2019-10-20 10:44 | XMS ---
PreManage Notification: OLGA LEMUS Security Perinatology Physician Events No recent Security Events currently on file CRITERIA MET - PDMP CARE PROVIDERS JASON ATWOOD [facility] 02/27/2019-Current PHONE: [phone] [place] has no Care Guidelines for this patient. E.Srikanth VISIT COUNT (12 MO.) 4 [facility] [place] TOTAL 4 NOTE: Visits indicate total known visits. ED/UCC VISIT TRACKING (12 MO.) 10/20/2019 10:42 [facility] [place] TYPE: Emergency COMPLAINT: - CONSTIPATION 07/22/2019 18:11 [facility] [place] TYPE: Emergency COMPLAINT: - URINE PROBLEM DIAGNOSES: - Emphysema, unspecified - Essential (primary) hypertension - Other senior living (current) drug therapy - Old myocardial infarction - Hematuria, unspecified - Personal history of nicotine dependence - Allergy status to penicillin 03/01/2019 10:40 [facility] [place] TYPE: Emergency COMPLAINT: - RECTAL BLEEDING 02/24/2019 09:03 [facility] [place] TYPE: Emergency COMPLAINT: - GI BLEED INPATIENT VISIT TRACKING (12 MO.) 03/01/2019 12:10 [facility] [place] [place] TYPE: Medical Surgical COMPLAINT: - GI BLEED DIAGNOSES: - Other chronic pain - Pain in unspecified joint - Pneumonia, unspecified organism - FDC (current) use of opiate analgesic - Pain in unspecified joint - Essential (primary) hypertension - Essential (primary) hypertension - Postprocedural hemorrhage of a digestive system organ or stru - FDC (current) use of inhaled steroids - Postprocedural hemorrhage of a digestive system organ or stru - Pneumonia, unspecified organism - Old myocardial infarction - Chronic respiratory failure with hypoxia - Psychophysiologic insomnia - Dependence on supplemental oxygen - Acute posthemorrhagic anemia - Gastro-esophageal reflux disease without esophagitis - Allergy status to penicillin - Unspecified mood [affective] disorder - Personal history of malignant neoplasm of prostate - Personal history of malignant neoplasm of prostate - Unspecified mood [affective] disorder - Psychophysiologic insomnia - Gastrointestinal hemorrhage, unspecified - Other chronic pain - Gastro-esophageal reflux disease without esophagitis - Other marklogic developer (current) drug therapy - Chronic obstructive pulmonary disease with acute lower respir - Acute posthemorrhagic anemia - FDC (current) use of opiate analgesic - Chronic obstructive pulmonary disease with acute lower respir - FDC (current) use of inhaled steroids - Other marklogic developer (current) drug therapy - Allergy status to penicillin - Dependence on supplemental oxygen - Chronic respiratory failure with hypoxia - Old myocardial infarction 02/24/2019 12:14 [facility] [place] TYPE: Medical Surgical COMPLAINT: - GI BLEED DIAGNOSES: - Melena - Angiodysplasia of colon with hemorrhage - Other specified diseases of esophagus - Other marklogic developer (current) drug therapy - Allergy status to penicillin - Respiratory failure, unspecified with hypoxia - Personal history of nicotine dependence - Acute posthemorrhagic anemia - Pneumonia, unspecified organism - Diverticulosis of large intestine without perforation or absc - Unspecified mood [affective] disorder - Acute posthemorrhagic anemia - shipping and receiving operator (current) use of inhaled steroids - Old myocardial infarction - Other hemorrhoids - Other senior living (current) drug therapy - Essential (primary) hypertension - Diaphragmatic hernia without obstruction or gangrene - Allergy status to penicillin - shipping and receiving operator (current) use of opiate analgesic - Old myocardial infarction - Chronic obstructive pulmonary disease with acute lower respir - Other specified diseases of esophagus - shipping and receiving operator (current) use of inhaled steroids - Pneumonia, unspecified organism - Malignant neoplasm of prostate - Diaphragmatic hernia without obstruction or gangrene - Unspecified mood [affective] disorder - Other hemorrhoids - Chronic obstructive pulmonary disease with acute lower respir - Personal history of nicotine dependence - Respiratory failure, unspecified with hypoxia - FDC (current) use of opiate analgesic - Essential (primary) hypertension - Diverticulosis of large intestine without perforation or absc - Angiodysplasia of colon with hemorrhage - Malignant neoplasm of prostate [email or web address]
== END 2019-10-20 11:35 | disposition home or self-care (01) ==
LOC: ED 10:42
DX: K59.00 Constipation, unspecified (principal); J43.9 Emphysema, unspecified; I25.2 Old myocardial infarction; I10 Essential (primary) hypertension; Z87.891 Personal history of nicotine dependence; Z88.0 Allergy status to penicillin; Z79.899 Other long term (current) drug therapy
CPT/HCPCS: 99283

== ENCOUNTER 2021-08-10 12:57 | Emergency (ER) | payer MEDICARE, OTHER ==
[~2021-08-10] VITALS: Ht 180.3 cm; Wt 71.1 kg
--- OUTSIDE RECORDS SUMMARY | 2021-08-10 13:00 | XMS ---
PreManage Notification: OLGA LEMUS Security Seo Marketing Specialist Events No recent Security Events currently on file CRITERIA MET - MAYTE CARE PROVIDERS JASON ATWOOD [facility] 02/27/2019-Current PHONE: Unknown CURTIS SALEH Physician Excavating Contractor Current PHONE: [phone] [place] has no Care Guidelines for this patient. ESirisha VISIT COUNT (12 MO.) Doyle Bedolla TOTAL 1 NOTE: Visits indicate total known visits. ED/UCC VISIT TRACKING (12 MO.) 08/10/2021 12:57 [facility] [place] TYPE: Emergency COMPLAINT: - URINE PROBLEM INPATIENT VISIT TRACKING (12 MO.) No inpatient visits to display in this time frame [id number]
== END 2021-08-10 14:50 | disposition home or self-care (01) ==
LOC: ED 12:57
DX: R33.9 Retention of urine, unspecified (principal); R31.9 Hematuria, unspecified; J44.9 Chronic obstructive pulmonary disease, unspecified; I10 Essential (primary) hypertension; Z87.891 Personal history of nicotine dependence; Z79.899 Other long term (current) drug therapy; Z88.0 Allergy status to penicillin
CPT/HCPCS: 81001

== ENCOUNTER 2021-08-10 20:30 | Emergency (ER) | payer MEDICARE, OTHER ==
[~2021-08-10] VITALS: Ht 180.3 cm; Wt 69.8 kg
--- OUTSIDE RECORDS SUMMARY | 2021-08-10 20:33 | XMS ---
PreManage Notification: OLGA LEMUS Security Toter Events No recent Security Events currently on file CRITERIA MET - MAYTE - [facility] - 2 Visits in 30 Days CARE PROVIDERS JASON AWTOOD [facility] 02/27/2019-Current PHONE: Unknown CURTIS SALEH Physician Food Manager Current PHONE: [phone] [place] has no Care Guidelines for this patient. Zoë VISIT COUNT (12 MO.) 2 [facility] TOTAL 2 NOTE: Visits indicate total known visits. ED/UCC VISIT TRACKING (12 MO.) 08/10/2021 20:30 [facility] [place] TYPE: Emergency COMPLAINT: - ABD PAIN, URINE PAIN 08/10/2021 12:57 [facility] [place] TYPE: Emergency COMPLAINT: - URINE PROBLEM INPATIENT VISIT TRACKING (12 MO.) No inpatient visits to display in this time frame [id number]
== END 2021-08-10 23:08 | disposition home or self-care (01) ==
LOC: ED 20:30
DX: R33.9 Retention of urine, unspecified (principal); R31.9 Hematuria, unspecified; J43.9 Emphysema, unspecified; I10 Essential (primary) hypertension; Z87.891 Personal history of nicotine dependence; Z88.0 Allergy status to penicillin; Z79.899 Other long term (current) drug therapy
CPT/HCPCS: 51702; 51798; 99283-25

== ENCOUNTER 2021-08-11 10:56 | Emergency (ER) | payer MEDICARE, OTHER ==
[~2021-08-11] VITALS: Ht 180.3 cm; Wt 69.8 kg
--- OUTSIDE RECORDS SUMMARY | 2021-08-11 11:00 | XMS ---
PreManage Notification: OLGA LEMUS Security Varnisher Events No recent Security Events currently on file CRITERIA MET - YESENIA - [facility] - 2 Visits in 30 Days CARE PROVIDERS JASON ATWOOD [facility] 02/27/2019-Current PHONE: Unknown CURTIS SALEH Physician School Based Therapist Current PHONE: [phone] [place] has no Care Guidelines for this patient. Zoë VISIT COUNT (12 MO.) [address] [place] [address] TOTAL 3 NOTE: Visits indicate total known visits. ED/UCC VISIT TRACKING (12 MO.) 08/11/2021 10:57 [facility] [place] TYPE: Emergency COMPLAINT: - CATHETER ISSUE 08/10/2021 20:30 [facility] [place] TYPE: Emergency COMPLAINT: - ABD PAIN, URINE PAIN 08/10/2021 12:57 [facility] [place] TYPE: Emergency COMPLAINT: - URINE PROBLEM INPATIENT VISIT TRACKING (12 MO.) No inpatient visits to display in this time frame [id number]
== END 2021-08-11 12:15 | disposition home or self-care (01) ==
LOC: ED 10:56
DX: T83.091A Other mechanical complication of indwelling urethral catheter, initial encounter (principal); J43.9 Emphysema, unspecified; I10 Essential (primary) hypertension; Z87.891 Personal history of nicotine dependence; Z88.0 Allergy status to penicillin; Z79.899 Other long term (current) drug therapy
CPT/HCPCS: 99283

== ENCOUNTER 2021-10-17 18:23 | Inpatient (IN) | payer MEDICARE, OTHER ==
[~2021-10-17] VITALS: Ht 180.3 cm; Wt 68.8 kg
--- OUTSIDE RECORDS SUMMARY | 2021-10-17 18:26 | XMS ---
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 ESirisha VISIT COUNT (12 MO.) Rosemarie Bedolla TOTAL 4 NOTE: Visits indicate total known visits. ED/UCC VISIT TRACKING (12 MO.) 10/17/2021 18:24 [facility] [place] TYPE: Emergency COMPLAINT: - ABDOMINAL PAIN 08/11/2021 10:57 [facility] [place] TYPE: Emergency COMPLAINT: - CATHETER ISSUE DIAGNOSES: - Allergy status to penicillin - Personal history of nicotine dependence - Essential (primary) hypertension - Emphysema, unspecified - Other termite control representative (current) drug therapy - Other mechanical complication of indwelling urethral catheter, initial encounter 08/10/2021 20:30 [facility] [place] TYPE: Emergency COMPLAINT: - ABD PAIN, URINE PAIN DIAGNOSES: - Retention of urine, unspecified - Hematuria, unspecified - Emphysema, unspecified - Other fci (current) drug therapy - Essential (primary) hypertension - Allergy status to penicillin - Personal history of nicotine dependence 08/10/2021 12:57 [facility] [place] TYPE: Emergency COMPLAINT: - URINE PROBLEM DIAGNOSES: - Personal history of nicotine dependence - Other fci (current) drug therapy - Allergy status to penicillin - Retention of urine, unspecified - Chronic obstructive pulmonary disease, unspecified - Essential (primary) hypertension - Hematuria, unspecified INPATIENT VISIT TRACKING (12 MO.) No inpatient visits to display in this time frame [id number]
--- NOTE | 2021-10-18 00:15 | NUR ---
PATIENT ARRIVED TO THE UNIT VIA STRETCHER AT 2322. PATIENT TRANSFERED TO THE BED WITH ONLY CORD MANAGEMENT ASSIST. PATIENT'S VS STABLE. IV FLUIDS STARTED. PRN FENTANYL PROVIDED FOR 5/10 PAIN IN RLQ. IMPROVED FROM DIFFUSED ABD PAIN 10/10 IN ED. PATIENT DENIES NAUSEA OR FEELING DISTENDED. YOUNG CATH IN PLACE, TEA COLORED URINE NOTED. PATIENT IS AAOX4. TOOK PO KAYEXALATE WITHOUT ISSUES. HAS A DRY COUGH, PRN CEPOCAL LOGENZES ORDERED BY . IN ROOM TO SEE PATIENT. PATIENT ON 4L NC, Sp02 93%. DENIES FEELING SOB, REGULARLY WEARS 2.5L NC AT NIGHT AT HOME. LUNG SOUNDS ARE CLEAR. PATIENT VERBALIZED UNDERSTANDING FOR CALLING PRIOR TO GETTING UP. CALL LIGHT IN HAND.
--- NOTE | 2021-10-18 02:00 | NUR ---
patient resting with eyes closed. vs stable. good urine output.
--- NOTE | 2021-10-18 04:30 | NUR ---
patient resting with eyes closed. vs stable. galan emptied, 800mls blood tinged urine. iv fluids infusing per order, site wnl.
--- NOTE | 2021-10-18 07:10 | NUR ---
UPDATE GIVEN TO . IV FLUIDS CHANGED, SEE EMAR.
--- NOTE | 2021-10-18 07:25 | NUR ---
REPORT RECEIVED FROM DIVYA LEZAMA. PT RESTING IN BED. AWAKE AND ALERT. PT REPORTS 3/10 RIGHT SIDED ABDOMINAL AND FLANK PAIN. PT STATES PAIN IS TOLERABLE AT THIS TIME AND DENIES NEED FOR PAIN MEDICATION. PT REQUESTS COFFEE, PROVIDED REQUESTED. NO ADDITIONAL NEEDS AT THIS TIME. CALL LIGHT WITHIN REACH. BED RAILS UP.
--- NOTE | 2021-10-18 07:37 | EKG ---
[facility] [address] [place], [place] [address] Signed Normal sinus rhythm Anterior infarct , age undetermined Abnormal ECG When compared with ECG of 24-FEB-2019 09:44, Anterior infarct is now present Confirmed by ENEIDA ROBERTSON MD ([id number]) on 10/18/2021 7:36:51 AM Electronically Signed By: ENEIDA ROBERTSON MD 10/18/21 0737 PATIENT NAME: OLGA LEMUS Electrocardiogram DATE OF : 39 PHYSICIAN: ENEIDA ROBERTSON MD REPORT #: [id number] REPORT IS CONFIDENTIAL AND NOT TO BE RELEASED WITHOUT AUTHORIZATION
--- NOTE | 2021-10-18 07:54 | NUR ---
MORNING ASSESSMENT AND MEDICATION DUE. PT AWAKE, ALERT AND ORIENTED ADN WATCHING TV. PT CONTINUES TO REPORT 3/10 "STRONG ACHE" PAIN IN RIGHT FLANK AND RIGHT ABDOMEN. PT DECLINES PAIN MEDICATION STATING PAIN IS TOLERABLE. STAND BY ASSIST UP TO CHAIR FOR BREAKFAST. LUNG SOUNDS CLEAR. PT WEANED TO BASELINE 2.5L O2 BY NC. PT MAINTAINS OXYEN SATURATIONS ABOVE 90% ON 2.5L O2 BY NC. RR 16-25. OCCATIONAL DRY COUGH NOTED. HEART TONES REGULAR BUT FOR OCCATIONAL IRREGULAR BEATS. PVC'S NOTED ON MONITOR. HEART RATE 90-110'S. ABDOMEN SOFT BUT TENDER, ESPICIALLY ON RIGHT SIDE. BOWEL TONES HYPOACTIVE. RED/BROWN URINE DRAINING FROM CATHETER, QUANTITY SUFFICENT. 450ML REMOVED. PT REPORTS APPITITE HAS IMPROVED THIS MORNING, ABLE TO EAT ~80% OF BREAKFAST. MEDICATIONS GIVEN. MORNING CARES DONE. NO ADDITIONAL REQUESTS OR COMPLAINTS. CALL LIGHT WITHIN REACH. BED RAILS UP.
--- NOTE | 2021-10-18 08:29 | NUR ---
PT UP TO CHAIRSIDE COMODE WITH STAND BY ASSIST REPORTING HE "MIGHT NEED TO PASS SOMETHING." LARGE AMOUNTS OF GAS PASSED. NO BOWEL MOVEMENT NOTED. PT PERFORMS SELF DOLORES CARE. STAND BY ASSIST FOR CORD MANAGEMENT BACK TO BED. OXYGEN SATUATIONS 90-92% ON 2.5L 2L BY NC WHILE OUT OF BED, DROPS TO 85% ONCE PT IS BACK TO BED. OXGYEN INCREASED TO 4L O2 BY NC WHICH MAINTAINS OXGYEN SATURATIONS 88-91%. PT TEXTING ON PHONE. PT DENIES ADDITIONAL REQUESTS OR COMPLAINTS. CALL LIGHT WITHIN REACH. BED RAILS UP.
--- NOTE | 2021-10-18 08:32 | NUR ---
DR ROBERTSON TO BEDSIDE FOR ROUNDS. PT UPDATED ON DIAGNOSIS AND PLAN OF CARE. PT VERBALIZES UNDERSTANDING AND STATES HIS QUESTIONS HAVE BEEN ANSWSERED. NO ADDITIONAL REQUESTS OR COMPLAINTS. CALL LIGHT WITHIN REACH. BED RAILS UP.
--- NOTE | 2021-10-18 09:33 | NUR ---
HOURLY ROUNDING: THIS RN TO ROOM TO CHECK ON PT. PT RESTING WITH EYES CLOSED. RESPIRATIONS EVEN AND UNLABORED, RR OF 20. OXGYEN SATURATION 90% ON 2.5 L OR BY NC. BED RAILS UP. CALL LIGHT WITHIN REACH. PT ALLOWED TO REST.
--- NOTE | 2021-10-18 09:36 | NUR ---
PTS FRIENDS ARRIVED TO BEDSIDE TO VISIT. PT AWAKENS TO MOVEMENT IN THE ROOM. PT DENIES ADDITIONAL REQUESTS OR COMPLAINTS. CALL LIGHT WITHIN REACH. BED RAILS UP.
--- NOTE | 2021-10-18 10:28 | NUR ---
HOURLY ROUNDING: PTS FRIENDS HAVE LEFT. THIS RN TO ROOM TO CHECK ON PT. PT RESTING ON BACK WITH EYES CLOSED, RESPIRATIONS EVEN AND UNLABORED. HEAD OF BED ELEVATED TO 30 DEGREES. OXGYEN SATURATION REMAINS 90% ON 2.5 L O2 BY NC. BED RAILS UP. CALL LIGHT WITHIN REACH. PT ALLOWED TO REST.
--- NOTE | 2021-10-18 11:33 | NUR ---
LUNCH DELIVERED TO PT. PT UP TO CHAIR FOR LUNCH WITH STAND BY ASSIST. PT CONTINUES TO REPORT 3/10 PAIN IN RIGHT FLANK/ABDOMEN AND DENIES NEED FOR PAIN MEDICAITON. PT REPORTS HE WAS ABLE TO "TAKE A GOOD NAP." PLANS MADE WITH PT FOR SHOWER AND AMBULATION THIS AFTERNOON. PT EATING LUNCH. NO ADDITIONAL REQUESTS OR COMPLAINTS. CALL LIGHT WITHIN REACH.
--- NOTE | 2021-10-18 12:14 | NUR ---
PT FINISHED WITH LUNCH. PT UP TO RESTROOM WITH STAND BY ASSIST, PT PASSESS ADDITONAL GAS, NO BOWEL MOVEMENT NOTED. PT UP TO AMBULATE IN BARBOUR WITH STAND BY ASSIST AND FRONT WHEEL WALKER X2 LAPS DOWN CCU HALLWAY. PT MAINTAINS OXYGEN SATURATIONS 88-92% WITH AMBULATION ON 2L O2 BY NC. PT REPORTS 3/10 UNCHANGED PAIN AND MINOR SHORTNESS OF BREATH. WITH AMBULATION PT BACK TO BED. PT REQUESTS TO REST "FOR A BIT" AND REQUESTS SHOWER THIS AFTERNOON. NO ADDITIONAL REQUESTS OR COMPLAINTS. CALL LIGHT WITHIN REACH. BED RAILS UP.
--- NOTE | 2021-10-18 13:13 | NUR ---
HOURLY ROUNDING: THIS RN TO ROOM TO CHECK ON PT. PT RESTING IN BED WITH EYES CLOSED, RESPIRIATIONS EVEN AND UNLABORED. BED RAILS UP. HEAD OF BED ELEVATED TO 30 DEGREES. PT MAINTAINING OXGYEN SATURATIONS 90-93% ON 2.5L O2 BY NC. NO ADDITIONAL NEEDS. PT ALLOWED TO REST. CALL LIGHT WITHIN REACH.
[2021-10-18] MEDS ORDERED: AMLODIPINE BESY10 MG PO (13:38)
[2021-10-18] MEDS ORDERED: PANTOPRAZOLE SO20 MG PO (13:40)
[2021-10-18] MEDS ORDERED: ALBUTEROL2.5 MG/3 M INH (13:49)
--- NOTE | 2021-10-18 14:00 | NUR ---
AFTERNOON ASSESSMENT DUE. PT AWAKE AND OREINTED. PT STATES HE IS READY FOR A SHOWER. PT REPORTS 2/10 PAIN IN RIGHT FLANK AND RIGHT ABDOMEN. PT STATES "IT'S SO MUCH BETTER." PT DENIES NEED FOR ADDITIONAL PAIN MEDICATION. IV TO RIGHT FORARM INFILTRATED, 10CM CIRCUMFRENTIAL FLUID NOTED UNDER SKIN. IV DC'D PER PROTOCOL. GAUZE AND COBAN APPLIED. NEW IV STARTED TO LEFT FORARM PER PROTOCOL, BRISK BLOOD RETURN NOTED. PT UP TO SHOWER WITH STAND BY ASSIST. PT DENIES DIZZINESS OR LIGHTHEADEDNESS BUT DOES ENDORSE OCCATIONAL SHORTNESS OF BREATH. LUNG SOUNDS CLEAR IN ALL LOBES BUT FOR CORSE LUNG SOUNDS HEARD IN LEFT LOWER LOBE. ACAPELLA USE DEMONSTRATED X10. PT MAINTAINING OXGYEN SATURATION 89-93% ON 2.5L O2 BY [place]. ABHIJEET MCCARTHY CONTINUES IN MONITOR WITH HEART RATE IN THE 90'S, OCCATIONALL UP TO 110'S WITH ACTIVTY. HEART MURMUR HEARD. BOWEL TONES ACTIVE. PT REPORTS HE CONTINUES TO PASS GAS. NO BOWEL MOVEMENT NOTED YET. ABDOMEN SOFT BUT TENDER ON RIGHT SIDE. APPTITE IMPROVING, PT EATING ~80% OF MEALS THIS SHIFT. YOUNG CATHETER CONTINUES DRAINING RED TO TEA COLORED URINE. 225ML REMOVED. CATHETER CARE DONE WITH SHOWER. PT DEMONSTRATE UNDERSTANDING STATING "I'VE DONE THIS BEFORE LAST TIME I TOOK THIS THING HOME." SHAMPOO, ORAL CARE, DOLORES CARE ALSO PERFORMED. FRESH GOWN AND SOCKS IN PLACE. STAND BY ASSIST BACK TO BED. PT READING NEWS PAPER. NO ADDITIONAL NEEDS AT THIS TIME. CALL LIGHT WITHIN REACH. BED RAILS UP.
--- NOTE | 2021-10-18 15:10 | NUR ---
HOURLY ROUNDING: PT RESTING IN BED WITH EYES CLOSED. RESPIRATIONS EVEN AND UNLABORED. OXGYEN SATURATION 90-92% ON 2.5L O2 BY NC. BED RAILS UP. CALL LIGHT WITHIN REACH. PT ALLOWED TO REST.
--- NOTE | 2021-10-18 15:12 | NUR ---
PT HERE FOR PADDY AND HYDRONEPHROSIS. PT UP WITH STAND BY ASSIST IN ROOM FOR SHOWER AND UP TO CHAIR FOR MEALS. PT UP TO AMBULATE IN BARBOUR WITH STAND BY ASSIST AND FRONT WHEEL WALKER. APPITITE IMPROVING WITH PT EATING ~80% OF RENAL DIET. PT OREINTED THROUGHOUT SHIFT, FREQUENT SHORT NAPS. PT REPORTS 2-3/10 PAIN IN RIGHT FLANK AND ABDOMEN THIS SHIFT. NO PRN PAIN MEDICATION GIVEN SO FAR THIS SHIFT. NORMAL SINUS RYTHEM TO SINUS TACHYCARDIA WITH PVCs NOTED ON MONITOR THROUGHOUT SHIFT. PT WEANED TO 2.5 L O2 BY NC TO MAINTAIN OXGYEN SATURATIONS 88-92% THSI SHIFT. PRN NEBULIZER TREATMENTS GIVEN. ACAPELLA USE DEMONSTRATED. LUNG SOUNDS CLEAR BUT FOR CORSNESS HEARD IN LLL. YOUNG CATEHTER REMINS IN PLACE WITH RED TO DARK BROWN URINE, QUANTITY SUFFICIENT. NEW IV PLACED TO LEFT FORARM. PT USES CALL LIGHT AND MAKES NEEDS KNOWN.
--- NOTE | 2021-10-18 16:22 | NUR ---
THIS RN TO ROOM TO CHECK ON PT. PT AWAKE AND ALERT. PT REQUESTS A SNACK BEFORE DINNER. VITAL SIGNS STABLE. STAND BY ASSIST UP TO CHAIR. RT TO BEDSIDE FOR PRN BREATHING TREATMENT. ДМИТРИЙ, PHARMACIST TO BEDSIDE TO REVIEW MEDICATIONS WITH PT. PT REPORTS RIGHT SIDED FLANK AND ABDOMINAL PAIN REMAINS AT 2/10, PT CONTINUES TO DENY NEED FOR PAIN MEDICATION. PT EATING PUDDING FOR SNACK. NO ADDITIONAL NEEDS AT THIS TIME. CALL LIGHT WITHIN REACH.
[2021-10-18] MEDS ORDERED: BREO ELLIPTA 21 EACH INH (16:48)
--- NOTE | 2021-10-18 16:49 | NUR ---
MED REC COMPLETE
--- NOTE | 2021-10-18 17:03 | NUR ---
PT CALL LIGHT ON. PT REPORTS HE IS FINISHED WITH DINNER AND WOULD LIKE TO GO BACK TO BED. STAND BY ASSIST BACK TO BED. PT APPEARS WEAKER AND MORE UNSTEADY ON FEET. PT REPORTS "I'M JUST FEELING TIRED." PT REPORTS 3/10 PAIN AND CONTINUES TO DENY NEED FOR PAIN MEDICATION. OXGYN SATURATION REMAINS AT 90-93% ON 2.5L O2 BY NC. PVC'S INCREASED ON MONITOR, EVERY THRID BEAT (TRIGEMENY) AT THIS TIME. 225ML DARK RED/BROWN URINE REMOVED FROM CATEHTER. PT WAS ABLE TO EAT ~50% OF DINNER. PT ENCORUAGED TO REST. CALL LIGHT WITHIN REACH. BED RAILS UP.
--- NOTE | 2021-10-18 17:09 | NUR ---
DR ROBERTSON CALLED AND UPDATED ON PT STATUS AND TRYGEMENY HEART RATE. STATES SHE WILL REVIEW TELEMETRY MONITORING. NO NEW ORDERS AT THIS TIME.
--- NOTE | 2021-10-18 17:28 | NUR ---
NEW ORDERS FOR CMP AND MAG LAB DRAWS NOTED. IV FLUIDS PAUSED. 8ML LAB DRAW WITH 22 GAUGE BUTTERFLY NEEDLE FROM LEFT FORARM. PT TOLERATED WELL. GAUZE AND COBAN APPLIED. LABS SENT TO PHARMACY.
--- NOTE | 2021-10-18 17:40 | NUR ---
DR ROBERTSON TO BEDSIDE TO ROUND WITH PT. PT REMAINS IN TRIGEMENY RHYTHEM. ADDITIONAL ORDERS TO HOLD IV FLUIDS AND FOR CBC GIVEN. 5ML LAB DRAW FROM LEFT FORARM IV SITE WITH 8ML WASTE. BRISK BLOOD RETURN NOTED FROM SITE. LABS SENT TO PHARMACY. IV SALINE LOCKED AT THIS TIME. ALCOHOL CAP APPLIED. PT DENIES DIZZINESS, CHEST PAIN OR NAUSEA. ENDORSES FATIGUE. VITAL SIGNS STABLE. NO ADDITONAL NEEDS AT THIS TIME. CALL LIGHT WIHTIN REACH. BED RAILS UP.
--- NOTE | 2021-10-18 18:11 | NUR ---
LABS RESULTED. DR. ROBERTSON UPDATED. ORDERS GIVEN TO STOP IV FLUIDS. ORDERS ENTERED. NO ADDITIONAL NEW ORDERS. CALL LIGHT WITHIN REACH. BED RAILS UP.
--- NOTE | 2021-10-18 18:30 | NUR ---
THIS RN TO ROOM TO CHECK ON PT. PT RESTING IN BED VISITING WITH FRIENDS. PT REPORTS 2/10 PAIN IN RIGHT SIDE AND CONTINUES TO DENY NEED FOR PAIN MEDICATION. PT REMAINS IN TRIGEMENY RYTHEM, PT DENIES CHEST PAIN, NAUSEA, OR DIZZINESS. PT MAINTAINING OXGYEN SATURTIONS OF 90-92% ON 2.5 L O2 BY NM. NO ADDITIONAL REQUESTS OR COMPLAINTS. CALL LIGHT WITHIN REACH. BED RAILS UP.
--- NOTE | 2021-10-18 20:30 | NUR ---
PATIENT PROVIDED WITH PRN MEDS FOR BACK/JOINT PAIN AND A SLEEP AID. PATIENT REPORTS IMPROVIED ABD PAIN. LUNG SOUNDS ARE CLEAR IN UPPER LOBES; COARSE IN THE BASES AND MORE ON THE LEFT. CLEARS WITH A COUGH. TOLERATING 2L NC. PATIENT REQUEST A BREATHING TREATMENT, RT CALLED. YOUNG DRAINING RED URINE WITH SEDIMENT. VS STABLE. PATIENT DENIED FURTHER NEEDS. CALL LIGHT IN REACH.
--- NOTE | 2021-10-18 22:30 | NUR ---
PATIENT RESTING WITH EYES CLOSED. VS STABLE. PATIENT APPEARS COMFORTABLE. YOUNG DRAINING QS URINE.
--- NOTE | 2021-10-19 02:00 | NUR ---
patient appears to be resting comofrtably. call light in reach. vs stable. tolerating 2l nc. occational periods of apnea.
--- NOTE | 2021-10-19 03:00 | NUR ---
SARA TAMEZ REPORTS PATIENT DESAT WITH AN APNIC EPISODE TO THE 70'S WHILE ON 2L NC. TITRATED TO 3L NC, PATIENT IMPROVED.
--- NOTE | 2021-10-19 05:00 | NUR ---
PATIENT Sp02 87-91% ON 3L NC. RR 20-22. PATIENT DENIES ANY NEEDS. CALL LIGHT IN REACH.
--- NOTE | 2021-10-19 05:56 | NUR ---
YOUNG EMPTIED AT THIS TIME. PATIENT APPEARS TO BE RESTFUL. EYES CLOSED WHILE RN IN ROOM. SNORING SLIGHTLY. VS STABLE.
--- NOTE | 2021-10-19 07:18 | NUR ---
REPORT RECEIVED FROM DIVYA LEZAMA. PT RESTING IN BED ON BACK WITH EYES CLOSED. RESPIRATIONS EVEN AND UNLABORED, RR OF 24. OXGYEN SATURATION 91% ON 4LO2 BY DISHA. KEMAL MCCARTHY NOTED ON MONITOR WITH FREQUENT PVC'S. NO ADDITIONAL NEEDS AT THIS TIME. CALL LIGHT WITHIN REACH. BED RAILS UP. PT ALLOWED TO REST.
--- NOTE | 2021-10-19 07:56 | NUR ---
MORNING ASSESSMENT AND MEDICATION DUE. PT AWAKE AND RESTING IN BED. PT REPORTS HE WAS NOT ABLE TO SLEEP LAST NIGHT RELATED TO "YELLING IN THE BARBOUR." PT REPORTS FEELING TIRED BUT OTHERWISE "PRETTY GOOD." PT REPORTS 2/10 PAIN IN RIGHT ABDOMEN AND FLANK. PT DENIES NEED FOR PAIN MEDICAITON AT THIS TIME STATING "IT'S PRETTY GOOD NOW I THINK." IV FLUSHED AND SALINE LOCKED, ALCOHOL CAP REMAINS IN PLACE. PT ALERT AND OREINTED TO ALL. STAND BY ASSIST UP TO CHAIR FOR LINE AND TUBE MANGEMENT. LUNG SOUNDS CORSE IN LEFT LOWER LOBE, EXPIRATORY WHEEZES NOTED IN LEFT LUNG KOCH. RIGHT LUNG KOHC CLEAR. RT CALLED FOR PRN BREATHING TREATMENT. PT WEANED TO BASELINE 2.5L O2 BY NC AND MAINTAINS OXGYEN SATUATIONS 89-91%. PT DEMONSTRATES USE OF ACAPELLA X10. HEART TONES REGULAR, MONITOR SHOWS SINUS TACHYCARDIA WITH PVC'S. HEART MURMUR CONTINUES. HR 90-110'S. ABDOMEN SOFT, TENDER ON RIGHT SIDE. BOWEL TONES ACTIVE. PT REPORTS HE CONTINUES TO PASS GAS. 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 MILDLY REDENED TEA COLORED TODAY, TRANSPARENT. 225 ML REMOVED FROM CATHETER BAG. MEDICAITONS GIVEN. EDUCATION DONE WITH PT REGARDING CATHETER CARE. PT EATS ~80% OF BREAKFAST. PT REQUESTS TO GET BACK TO BED AFTER BREAKFAST. STAND BY ASSIST BACK TO BED. NO ADDITONAL NEEDS AT THIS TIME. CALL LIGHT WITHIN REACH. BED RAILS UP.
--- NOTE | 2021-10-19 09:05 | NUR ---
HOURLY ROUNDING: PT RESTING IN BED WITH EYES CLOSED. RESPIRATIONS EVEN AND UNLABORED. OXGYEN SATURAION 92% ON 2.5L O2 BY NC. RR OF 26. HEAD OF BED ELEVATED TO 30 DEGREES. BED RAILS UP. CALL LIGHT WITHIN REACH. PT ALLOWED TO REST.
--- NOTE | 2021-10-19 10:13 | NUR ---
THIS RN TO ROOM WITH DR. ROBERTSON FOR ROUNDS. PT AWAKE AND RESTING IN BED. PT REPORTS HE "SLEPT FOR ABOUT AN HOUR" AND NOW FEELS "MUCH BETTER." ORDERS GIVEN TO DC TELEMETRY MONITORING AND CPOX (WITH SPOT CHECKING WITH VITAL SIGNS). AND FOR ADDITIONAL MIRALAX DOES NOW WELL Q2 PRN FOR CONSITIPATION. TELE DC'D PER MD ORDER. PT UPDATED ON PLAN OF CARE, VERBALIZES UNDERSTANDING OF PLAN OF CARE, AND STATES HIS QUESTIONS HAVE BEEN ANSWERED. NO ADDITIONAL REQUESTS OR COMPLAINTS CALL LIGHT WITHIN REACH. BED RAILS UP.
--- NOTE | 2021-10-19 10:40 | NUR ---
PT FINISHED WITH 2ND DOES OF MIRALAX. PT REPORTS HE IS READY TO AMBULATE. PT UP TO AMBULATE IN BARBOUR X1 LAP INTO MED/SURG DEPARTMENT WITH FWW AND STAND BY ASSIST. PT TOELRATES AMBULATION ON 2.5L O2 BY NC WITH OXGYEN SATURATIONS 90-92%. PT BACK TO ROOM AND UP TO BEDSIDE COMODE. PT PASSES JULIAN BUT CONTINUES TO BE UNABLE TO HAVE A BOWEL MOVEMENT. PT BACK TO BED TO REST. NO ADDITONAL NEEDS AT THIS TIME. CALL LIGHT WITHIN REACH. BED RAILS UP.
--- NOTE | 2021-10-19 10:58 | NUR ---
PT UP TO BEDSIDE COMODE AGAIN. PT HAS SMALL FORMED BROWN BOWEL MOVEMENT, PT PERFORMS SELF DOLORES CARE. STAND BY ASSIST BACK TO BED. NO ADDITONAL REQUESTS OR COMPLAINTS. CALL LIGHT WITHIN REACH.
--- NOTE | 2021-10-19 11:04 | NUR ---
DR ROBERTSON UPDATED, ORDERS TO GIVE FLEETS ENEMA. ORDER PLACED, REPEAT BACK PERFORMED.
--- NOTE | 2021-10-19 11:19 | NUR ---
FLEET ENEMA GIVEN PER PROTOCOL. PT LYING ON LEFT SIDE. PT ABLE TO HOLD FLUID IN AND TOLERATES ENEMA WELL. COMODE AT BEDSIDE CALL LIGHT WITHIN REACH. BED RAILS UP.
--- NOTE | 2021-10-19 12:02 | NUR ---
PT CALL LIGHT ON. PT STATES HE CANNOT HOLD ENEMA ANY LONGER. STAND BY ASSIST UP TO BEDSIDE COMODE. PT HAS SMALL FORMED BOWEL MOVEMENT. DOLORES CARE PER PT. PT UP TO CHAIR FOR LUNCH. PT REPORTS ABDOMEN CONTINUES TO FEEL "FULL." PT ENCOURAGED TO AMBULATE AFTER LUNCH. NO ADDITONAL NEEDS AT THIS TIME. CALL LIGHT WITHIN REACH.
--- NOTE | 2021-10-19 12:19 | NUR ---
PT FINISHED WITH LUNCH. VITAL SIGNS STABLE. PT UP TO AMBULATE IN BARBOUR X 1 LAP INTO MED/SURG HALLWAY. PT REPORTS ONGOING 2/10 PAIN IN RIGHT FLANK AREA. PT DENIES NEED FOR PAIN MEDICATION. PT UP TO COMODE AND HAS ADDITIONAL SMALL FORMED BROWN STOOL. PT REQUESTS ADDITIONAL MIRALAX, SEE MAR FOR MEDICATION GIVEN. PT REMAINS UP TO CHAIR. NO ADDITIONAL NEEDS AT THIS TIME. CALL LIGHT WITHIN REACH.
--- NOTE | 2021-10-19 13:15 | NUR ---
PT CALL LIGHT ON. PT UP TO CHAIR. PT REQUESTS TO GET UP TO AMBULATE. PT UP WITH STAND BY ASSIST AND FWW TO AMBULATE X 1 LAP IN BARBOUR. RR 30-36 WITH AMBULATION. PT REPORTS FEELING "TIRED." OXGYEN SATURATIONS REMAIN 89-92% ON 2.5L O2 BY NC. PT BACK TO ROOM AND BACK TO BED. NO ADDITONAL REQUESTS OR COMPLAINTS. CALL LIGHT WITHIN REACH. HEAD OF BED ELEVATED TO 30 DEGREES.
--- NOTE | 2021-10-19 14:30 | NUR ---
PT READY FOR DISCHARGE. VITAL SIGNS STABLE. IV'S DC'D PER PROTOCOL. PT REQUESTS A LEG BAG FOR HIS CATHETER. DR. ROBERTSON CALLED AND LEG BAG ORDERED. E. LARGE BAG EMPTIED AND DETACHED FROM CATHETER, LEG BAG PLACED PER PROTOCOL AND MD ORDER. PT DRESSED WITH STAND BY ASSIST. DISCHARGE INSTRUCTIONS REVIEWED WITH PT. PT VERBALIZES UNDERSTANDING OF INSTRUCTIONS, MEDICATIONS, FOLLOW UP, AND CATHETER CARE. PER DR. ROBERTSON'S ORDER, PT ADVISED TO TAKE MIRALAX AT HOME NEEDED, BUT TO TAKE IT EASY WITH MILK OF MAG. PT VERBALIZES UNDERSTANDING. PT TRANSFERS SELF TO WHEELCHAIR. PT WHEELED FROM MED/SURG TO MEET FRIEND AT FRONT. NO ADDITIONAL REQUESTS OR CONCERNS.
== END 2021-10-19 14:20 | disposition home or self-care (01) | DRG 684 ==
LOC: ED 18:23 → CCU 22:56
PROVIDERS: ADMIT Internal Medicine; ATTEND Internal Medicine
DX: N17.9 Acute kidney failure, unspecified (principal); Z20.822 Contact with and (suspected) exposure to COVID-19; N13.30 Unspecified hydronephrosis; J43.9 Emphysema, unspecified; C61 Malignant neoplasm of prostate; I10 Essential (primary) hypertension; C67.9 Malignant neoplasm of bladder, unspecified; E87.5 Hyperkalemia; Z99.81 Dependence on supplemental oxygen; Z87.891 Personal history of nicotine dependence; Z90.49 Acquired absence of other specified parts of digestive tract; Z98.890 Other specified postprocedural states; Z88.0 Allergy status to penicillin; Z79.899 Other long term (current) drug therapy
CPT/HCPCS: 36415; 51702; 51798; 74176; 80048; 80053; 81001; 83690; 83735; 85025; 85379; 87502; 94640; 94667; 94668; 99285-25; A9270; C9803; J2270; J2405; J3010; J7030; U0003

== ENCOUNTER 2021-10-23 19:51 | Emergency (ER) | payer MEDICARE, OTHER ==
[~2021-10-23] VITALS: Ht 180.3 cm; Wt 67.0 kg
[~2021-10-23 19:51] MED LIST changes: +ALBUTEROL2.5 MG/3 M INH; +AMLODIPINE BESY10 MG PO; +BREO ELLIPTA 21 EACH INH; +PANTOPRAZOLE SO20 MG PO
--- OUTSIDE RECORDS SUMMARY | 2021-10-23 19:54 | XMS ---
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 Zoë VISIT COUNT (12 MO.) [facility] TOTAL 5 NOTE: Visits indicate total known visits. ED/UCC VISIT TRACKING (12 MO.) 10/23/2021 19:52 [facility] [place] TYPE: Emergency COMPLAINT: - CATHETER PROBLEM 10/17/2021 18:24 [facility] [place] TYPE: Emergency COMPLAINT: - ABDOMINAL PAIN 08/11/2021 10:57 [facility] [place] TYPE: Emergency COMPLAINT: - CATHETER ISSUE DIAGNOSES: - Allergy status to penicillin - Personal history of nicotine dependence - Essential (primary) hypertension - Emphysema, unspecified - Other rn long term care (current) drug therapy - Other mechanical complication of indwelling urethral catheter, initial encounter 08/10/2021 20:30 [facility] [place] TYPE: Emergency COMPLAINT: - ABD PAIN, URINE PAIN DIAGNOSES: - Retention of urine, unspecified - Hematuria, unspecified - Emphysema, unspecified - Other skilled nursing (current) drug therapy - Essential (primary) hypertension - Allergy status to penicillin - Personal history of nicotine dependence 08/10/2021 12:57 [facility] [place] TYPE: Emergency COMPLAINT: - URINE PROBLEM DIAGNOSES: - Personal history of nicotine dependence - Other skilled nursing (current) drug therapy - Allergy status to penicillin - Retention of urine, unspecified - Chronic obstructive pulmonary disease, unspecified - Essential (primary) hypertension - Hematuria, unspecified INPATIENT VISIT TRACKING (12 MO.) 10/17/2021 22:[address] [facility] [place] TYPE: Critical Care COMPLAINT: - ACUTE KIDNEY INJURY, CANCER OF BLADDER DIAGNOSES: - Malignant neoplasm of bladder, unspecified - Contact with and (suspected) exposure to COVID-19 - Other specified postprocedural states - Allergy status to penicillin - Other rn long term care (current) drug therapy - Acquired absence of other specified parts of digestive tract - Personal history of nicotine dependence - Other skilled nursing (current) drug therapy - Personal history of nicotine dependence - Unspecified hydronephrosis - Essential (primary) hypertension - Dependence on supplemental oxygen - Emphysema, unspecified - Other specified postprocedural states - Hyperkalemia - Malignant neoplasm of prostate - Hyperkalemia - Allergy status to penicillin - Acquired absence of other specified parts of digestive tract - Essential (primary) hypertension - Malignant neoplasm of prostate - Emphysema, unspecified - Dependence on supplemental oxygen - Contact with and (suspected) exposure to COVID-19 - Unspecified hydronephrosis - Malignant neoplasm of bladder, unspecified - Acute kidney failure, unspecified [email or web address]
[2021-10-23] MEDS ORDERED: LEVOFLOXACIN250 MG PO (21:16)
== END 2021-10-23 23:27 | disposition home or self-care (01) ==
LOC: ED 19:51
DX: N13.9 Obstructive and reflux uropathy, unspecified (principal); C67.9 Malignant neoplasm of bladder, unspecified; I10 Essential (primary) hypertension; J43.9 Emphysema, unspecified; Z87.891 Personal history of nicotine dependence; Z88.0 Allergy status to penicillin; Z88.8 Allergy status to other drugs, medicaments and biological substances; Z79.899 Other long term (current) drug therapy
CPT/HCPCS: 36415; 51702; 80048; 85025; 99283-25

== ENCOUNTER 2021-11-08 16:53 | Emergency (ER) | payer MEDICARE, OTHER ==
[~2021-11-08] VITALS: Ht 180.3 cm; Wt 69.0 kg
[~2021-11-08 16:53] MED LIST changes: +LEVOFLOXACIN250 MG PO
--- OUTSIDE RECORDS SUMMARY | 2021-11-08 16:56 | XMS ---
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 02/27/2019-Current PHONE: Unknown CURTIS SALEH Physician Bar Attendant Current PHONE: [phone] [place] has no Care Guidelines for this patient. ESirisha VISIT COUNT (12 MO.) [address] [place] [address] TOTAL 6 NOTE: Visits indicate total known visits. ED/UCC VISIT TRACKING (12 MO.) 11/08/2021 16:53 [facility] [place] TYPE: Emergency COMPLAINT: - ABD PAIN 10/23/2021 19:52 [facility] [place] TYPE: Emergency COMPLAINT: - CATHETER PROBLEM DIAGNOSES: - Emphysema, unspecified - Other snf (current) drug therapy - Essential (primary) hypertension - Malignant neoplasm of bladder, unspecified - Allergy status to penicillin - Allergy status to other drugs, medicaments and biological substances - Obstructive and reflux uropathy, unspecified - Personal history of nicotine dependence 10/17/2021 18:24 [facility] [place] TYPE: Emergency COMPLAINT: - ABDOMINAL PAIN 08/11/2021 10:57 [facility] [place] TYPE: Emergency COMPLAINT: - CATHETER ISSUE DIAGNOSES: - Allergy status to penicillin - Personal history of nicotine dependence - Essential (primary) hypertension - Emphysema, unspecified - Other snf (current) drug therapy - Other mechanical complication of indwelling urethral catheter, initial encounter 08/10/2021 20:30 [facility] [place] TYPE: Emergency COMPLAINT: - ABD PAIN, URINE PAIN DIAGNOSES: - Retention of urine, unspecified - Hematuria, unspecified - Emphysema, unspecified - Other meterman (current) drug therapy - Essential (primary) hypertension - Allergy status to penicillin - Personal history of nicotine dependence 08/10/2021 12:57 [facility] [place] TYPE: Emergency COMPLAINT: - URINE PROBLEM DIAGNOSES: - Personal history of nicotine dependence - Other snf (current) drug therapy - Allergy status to [...] - Allergy status to penicillin - Other snf (current) drug therapy - Acquired absence of other specified parts of digestive tract - Personal history of nicotine dependence - Other meterman (current) drug therapy - Personal history of nicotine dependence - Unspecified hydronephrosis - Essential (primary) hypertension - Dependence on supplemental oxygen - Emphysema, unspecified - Hyperkalemia - Other specified postprocedural states - Malignant neoplasm of prostate - Hyperkalemia - Allergy status to penicillin - Acquired absence of other specified parts of digestive tract - Essential (primary) hypertension - Malignant neoplasm of prostate - Emphysema, unspecified - Dependence on supplemental oxygen - Contact with and (suspected) exposure to COVID-19 - Unspecified hydronephrosis - Acute kidney failure, unspecified - Malignant neoplasm of bladder, unspecified [email or web address]
== END 2021-11-08 17:53 | disposition home or self-care (01) ==
LOC: ED 16:53
DX: K59.00 Constipation, unspecified (principal); J43.9 Emphysema, unspecified; I10 Essential (primary) hypertension; Z87.891 Personal history of nicotine dependence; Z88.8 Allergy status to other drugs, medicaments and biological substances; Z88.1 Allergy status to other antibiotic agents; Z79.899 Other long term (current) drug therapy
CPT/HCPCS: 99284